=== PATIENT | female | born 1990 | race Caucasian/White ===

== ENCOUNTER 2022-12-31 23:21 | Emergency (ER) | payer SELFPAY ==
[2022-12-31 23:22] VITALS: BP 159/78; PULSE 79; RESP 16; TEMP 37.1; O2SAT 96; BMI 27.4
--- NOTE | 2022-12-31 23:25 | ED.SEIZURE1 ---
HPI - Seizure General Chief Complaint: Seizure Stated Complaint: SEIZURE History of Present Illness HPI Narrative: history of pseudoseizures. Describes complete workup in the past including neg. MRI and normal EEG. States she had one last week and was able to work her way out of it She is no longer followed by Neurology. States she was informed they are triggered by stress. Had a seizure tonight at work. Past admission to in patient psychiatric treatment. Brought to the ER from work after seizure tonight. Now arrives and feels she is doing ok. Was nauseated but this resolved after Squad gave her Zofran. denies headache Related Data Allergies Allergy/AdvReac Type Severity Reaction Status Date / Time prochlorperazine Allergy Verified 12/31/22 23:26 [From Compazine] Review of Systems ROS Status of ROS 10 or more systems reviewed and unremarkable except as noted in history and below PFSH [facility] Social History Smoking status: Current every day smoker Exam Constitutional Vital Signs, click to edit/add: Last Vital Signs Temp 98.8 F 12/31/22 23:22 Pulse 79 12/31/22 23:22 Resp 16 12/31/22 23:48 BP 159/78 H 12/31/22 23:22 Pulse Ox 98 12/31/22 23:48 O2 Del Method Room Air 12/31/22 23:48 Common normals: no apparent distress, average body habitus, oriented x3, no limitations, healthy appearing and alert Eye Common normals: PERRL, EOMs intact bilaterally and conjunctivae normal Respiratory Common normals: normal respiratory effort, no retractions, no use of accessory muscles and clear to auscultation bilaterally Cardio Common normals: regular rate, regular rhythm, S1 normal heart sound and S2 normal heart sound GI Common normals: Normal to inspection, nondistended, normoactive bowel sounds present, soft to palpation and non-tender Extremity Common normals: normal to inspection and full ROM Neuro Common normals: oriented x3, CN's II-XII intact bilaterally, moves all extremities, no focal motor deficits and no sensory deficits noted Psych Appearance: grossly normal Course Vital Signs Vital signs: Vital Signs Temperature 98.8 F 12/31/22 23:22 Pulse Rate 79 12/31/22 23:22 Respiratory Rate 16 12/31/22 23:22 Blood Pressure 159/78 H 12/31/22 23:22 Pulse Oximetry 96 12/31/22 23:22 Oxygen Delivery Method Room Air 12/31/22 23:22 Temperature 98.8 F 12/31/22 23:22 Pulse Rate 79 12/31/22 23:22 Respiratory Rate 16 12/31/22 23:48 Blood Pressure 159/78 H 12/31/22 23:22 Pulse Oximetry 98 12/31/22 23:48 Oxygen Delivery Method Room Air 12/31/22 23:48 MDM - Seizure MDM Narrative Medical decision making narrative: history of pseudoseizure. another seizure tonight while at work. Arrives asymptomatic. UA with trace leukocytes and urine cx ordered. Labs WNL with mild decreased in bicarb related to the seizure. Patient discharged home asymptomatic and advised to follow up with her doctor Lab Data Labs: Lab Results 12/31/22 12/31/22 Range/Units 23:32 23:50 WBC 8.0 (4.0-11.0) 10^3/uL RBC 4.44 (4.20-5.40) 10^6/uL Hgb 14.0 (12.0-16.0) g/dL Hct 40.8 (36.0-48.0) % MCV 91.9 (81.0-99.0) fL MCH 31.5 (26.7-34.0) pg MCHC 34.3 (29.9-35.2) g/dL RDW 11.9 (11.0-15.0) % Plt Count 223 (150-450) 10^3/uL MPV 10.9 (9.5-13.5) fL Neut % (Auto) 72.2 (43.0-75.0) % Lymph % (Auto) 19.8 L (20.5-60.0) % [place] % (Auto) 5.5 (1.7-12.0) % Eos % (Auto) 1.7 (0.9-7.0) % Baso % (Auto) 0.6 (0.2-2.0) % Neut # (Auto) 5.8 (1.4-6.5) 10^3/uL Lymph # (Auto) 1.6 (1.2-3.8) 10^3/uL [place] # (Auto) 0.4 (0.3-0.8) 10^3/uL Eos # (Auto) 0.1 (0.0-0.7) 10^3/uL Baso # (Auto) 0.1 (0.0-0.1) 10^3/uL Abs Immat Gran (auto) 0.02 (0.00-0.03) 10^3/uL Imm/Tot Granulo (auto) 0.2 (0.0-0.5) % Sodium 139 (136-145) mmol/L Potassium 3.8 (3.5-5.1) mmol/L Chloride 107 (98-107) mmol/L Carbon Dioxide 20.8 L (21.0-32.0) mmol/L Anion Gap 15.0 BUN 10.0 (7.0-18.0) mg/dL Creatinine 0.91 (0.55-1.02) mg/dL Est GFR ( Amer) >60 (>=60) Est GFR (Non-Af Amer) >60 (>=60) BUN/Creatinine Ratio 11.0 Glucose 97 (74-106) mg/dL Calcium 8.6 (8.5-10.1) mg/dL Total Bilirubin 0.3 (0.2-1.0) mg/dL AST 14 L (15-37) U/L ALT 20 (14-59) U/L Alkaline Phosphatase 60 (46-116) U/L Total Protein 7.2 (6.4-8.2) g/dL Albumin 3.9 (3.4-5.0) g/dL Globulin 3.3 g/dL Albumin/Globulin Ratio 1.2 Urine Color Lt. yellow (YELLOW) Urine Clarity Clear (CLEAR) Urine pH 6.0 (5.0-9.0) Ur Specific [place] 1.015 (1.005-1.025) Urine Protein Negative (NEG/TRACE) mg/dL Urine Glucose (UA) Negative (NEGATIVE) mg/dL Urine Ketones Negative (NEGATIVE) mg/dL Urine Occult Blood Negative (NEGATIVE) Urine Nitrite Negative (NEGATIVE) Urine Bilirubin Negative (NEGATIVE) Urine Urobilinogen 0.2 (0.2-1.0) EU/dL Ur Leukocyte Esterase Trace A (NEGATIVE) Urine RBC 0-2 (0-2) #/HPF Urine WBC 2-5 A (NONE SEEN) #/HPF Ur Squamous Epith Cells Moderate A (NONE/RARE) #/LPF Urine Crystals None seen (None Seen) #/HPF Urine Bacteria Small A (NONE SEEN) #/HPF Urine Casts None seen (NONE SEEN) #/LPF Urine Mucus None seen (NONE SEEN) Ur Culture Indicated? Yes Discharge Plan Discharge Chief Complaint: Seizure Clinical Impression: Psychogenic nonepileptic seizure Patient Disposition: Home, Self-Care Instructions: Recurrent Seizures in Adults (ED) Additional Instructions: follow up with your family doctor Stand Alone Forms: Portal Instructions Referrals: Physician,Non-Staff, MD [Primary Care Provider] - 1 week
[2022-12-31 23:32] VITALS: PULSE 62
--- NOTE | 2022-12-31 23:35 | ECG_ITS ---
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
[2022-12-31 23:39] LABS: Basophils Absolute Auto 0.1 10^3/uL (0.0-0.1); Basophils Percent Auto 0.6 % (0.2-2.0); Eosinophils Absolute Auto 0.1 10^3/uL (0.0-0.7); Eosinophils Percent Auto 1.7 % (0.9-7.0); Hematocrit 40.8 % (36.0-48.0); Immature Granulocytes Abs Auto 0.02 10^3/uL (0.00-0.03); Immature Granulocytes Pct Auto 0.2 % (0.0-0.5); Lymphocytes Absolute Auto 1.6 10^3/uL (1.2-3.8); Lymphocytes Percent Auto 19.8 % (20.5-60.0); Mean Corpuscular HGB Conc 34.3 g/dL (29.9-35.2); Mean Corpuscular Hemoglobin 31.5 pg (26.7-34.0); Mean Corpuscular Volume 91.9 fL (81.0-99.0); Mean Platelet Volume 10.9 fL (9.5-13.5); Monocytes Absolute Auto 0.4 10^3/uL (0.3-0.8); Monocytes Percent Auto 5.5 % (1.7-12.0); Neutrophils Absolute Auto 5.8 10^3/uL (1.4-6.5); Neutrophils Percent Auto 72.2 % (43.0-75.0); Platelet Count 223 10^3/uL (150-450); Red Blood Count 4.44 10^6/uL (4.20-5.40); Red Cell Distribution Width 11.9 % (11.0-15.0)
[2022-12-31 23:48] VITALS: RESP 16; O2SAT 98
[2022-12-31 23:58] LABS: Bilirubin Urine NEGATIVE (NEGATIVE); Blood Urine NEGATIVE (NEGATIVE); Clarity Urine CLEAR (CLEAR); Color Urine LT. YELLOW (YELLOW); Glucose Urine UA NEGATIVE (NEGATIVE); Ketones Urine NEGATIVE (NEGATIVE); Leukocyte Esterase Urine TRACE (NEGATIVE); Nitrite Urine NEGATIVE (NEGATIVE); Protein Urine NEGATIVE (NEG/TRACE); Specific Gravity Urine 1.015 (1.005-1.025); Urobilinogen Urine 0.2 EU/dL (0.2-1.0)
[2022-12-31 23:59] LABS: Urine Microscopic Indicated YES
[2023-01-01 00:07] LABS: Alanine Aminotransferase 20 U/L (14-59); Albumin Globulin Ratio 1.2; Albumin Level 3.9 g/dL (3.4-5.0); Alkaline Phosphatase 60 U/L (46-116); Aspartate Amino Transferase 14 U/L (15-37); Bilirubin Total 0.3 mg/dL (0.2-1.0); Calcium 8.6 mg/dL (8.5-10.1); Carbon Dioxide 20.8 mmol/L (21.0-32.0); Chloride 107 mmol/L (98-107); Estimated GFR (African America >60 (>=60); Estimated GFR (Non-African Ame >60 (>=60); Globulin 3.3 g/dL; Glucose 97 mg/dL (74-106); Potassium 3.8 mmol/L (3.5-5.1); Sodium 139 mmol/L (136-145); Total Protein 7.2 g/dL (6.4-8.2)
[2023-01-01 00:21] LABS: Bacteria Urine SMALL #/HPF (NONE SEEN); Cast Seen? NONE SEEN #/LPF (NONE SEEN); Crystals Seen? None Seen #/HPF (None Seen); Mucus Urine NONE SEEN (NONE SEEN); RBC Urine 0-2 #/HPF (0-2); Squamous Epithelial Cell Urine MODERATE #/LPF (NONE/RARE); Urine Culture Indicated YES
[2023-01-01 01:05] VITALS: BP 119/63; PULSE 67; RESP 16; O2SAT 96
== END 2023-01-01 01:25 | disposition home or self-care (01) ==
PROVIDERS: Emergency Provider Internal Medicine
DX: R56.9 Unspecified convulsions (principal); F17.210 Nicotine dependence, cigarettes, uncomplicated
CPT/HCPCS: 36415; 80053; 81001; 85025; 87086; 93005; 99284

== ENCOUNTER 2023-01-11 22:16 | Emergency (ER) | payer SELFPAY ==
[2023-01-11] VITALS (9 sets, daily range): BP systolic 104–140; BP diastolic 62–88; PULSE 53–70; RESP 14–20; TEMP 36.8; O2SAT 96–98; BMI 27.5
--- NOTE | 2023-01-11 22:17 | ED.GENADUL1 ---
HPI - General Adult General Chief complaint: Seizure Stated complaint: seizure Time Seen by Provider: 01/11/23 22:17 History of Present Illness HPI narrative: Patient presents to emergency department via EMS with a complaint of a seizure. Patient was at work and coworkers found the patient in the break room staring off. She has a history of psychogenic pseudoseizures. He states are normally brought on by stress. She states her coworkers called EMS. When EMS arrived they stated that the patient was staring off and after 2 minutes became more responsive. Patient vomited one time. She was given 4 mg of Zofran in the ambulance. She denies any headache. She does not take any antiepileptic drugs. She's had a full workup done including EEGs and it was determined that she did not have epilepsy. She does not have any complaints. Related Data Previous Rx's Medication Instructions Recorded hydroxyzine HCl 25 mg tablet 25 mg PO Q8H PRN anxiety #20 tabs 01/11/23 Allergies Allergy/AdvReac Type Severity Reaction Status Date / Time prochlorperazine Allergy Verified 12/31/22 23:26 [From Compazine] Review of Systems ROS Status of ROS 10 or more systems reviewed and unremarkable except as noted in history and below PFSH PFSH Social History Smoking status: Current every day smoker Exam Narrative Exam Narrative: Nurses notes and vital signs reviewed and patient is not hypoxic. General: Nontoxic, Well-appearing and in no apparent distress. Skin: Warm, dry, no pallor noted. No Rash Head: Normocephalic, atraumatic. Neck: Supple, non-tender. Eye: Pupils are equal, round and EOMI. No scleral icterus. Ears, Nose, Mouth, and Throat: TM clear, no posterior oropharynx erythema or nasal mucosal hypertrophy, uvula is mid-line Oral mucosa is moist Cardiovascular: Regular Rate and Rhythm without murmur, gallop or rub. Respiratory: No accessory muscle use or respiratory distress. Lungs are clear to auscultation, no wheezing, rales or rhonchi Chest Wall: no tenderness Back: No midline thoracic or lumbar vertebral tenderness. No CVA tenderness Musculoskeletal: normal ROM, no calf or popliteal tenderness, no lower extremity edema/swelling GI: Abdomen is soft, non-distended. Normal bowel sounds. No masses appreciated. No tenderness to palpation. No rebound, guarding, or rigidity noted. Neurological: A&O x4. No cranial nerve dysfunction observed. No truncal ataxia. Moves all extremities. Sensation intact. Psychiatric: Cooperative and interactive. flat affect Constitutional Vital Signs, click to edit/add: Last Vital Signs Temp 98.3 F 01/11/23 22:19 Pulse 56 L 01/11/23 23:20 Resp 19 01/11/23 23:20 BP 104/62 01/11/23 23:31 Pulse Ox 97 01/11/23 23:20 O2 Del Method Room Air 01/11/23 22:19 Course Vital Signs Vital signs: Vital Signs Temperature 98.3 F 01/11/23 22:19 Pulse Rate 68 01/11/23 22:19 Respiratory Rate 18 01/11/23 22:19 Blood Pressure 140/88 01/11/23 22:19 Pulse Oximetry 98 01/11/23 22:19 Oxygen Delivery Method Room Air 01/11/23 22:19 Temperature 98.3 F 01/11/23 22:19 Pulse Rate 56 L 01/11/23 23:20 Respiratory Rate 19 01/11/23 23:20 Blood Pressure 104/62 01/11/23 23:31 Pulse Oximetry 97 01/11/23 23:20 Oxygen Delivery Method Room Air 01/11/23 22:19 Medical Decision Making MDM Narrative Medical decision making narrative: Patient was given IV fluids. She remained hemodynamically stable. All results discussed with patient.She is advised to stop smoking marijuana.She was given hydroxyzine. At this time the patient is without objective evidence of an acute process requiring hospitalization or inpatient management. The patient has remained hemodynamically stable. No additional indication for emergent studies at this time. I answered all questions. Discussed discharge instructions including standard anticipatory guidance and what should prompt a return to the emergency department, including if they get worse are not getting better or develops any new or concerning symptoms. I've given them specific time frame in which to follow-up, and who to follow-up with. The patient demonstrates understanding. Patient is nontoxic and stable for discharge with outpatient follow-up. This note was created with the assistance of a speech recognition program. Although the intention is to generate documents that actually reflects the content of the visit, no guarantees can be provided that every mistake has been identified and corrected by editing. Medical Records Medical records reviewed: Yes I reviewed the patient's medical records Lab Data Lab results reviewed: Yes I reviewed the patient's lab results Labs: Lab Results 01/11/23 01/11/23 01/11/23 Range/Units 22:22 22:30 22:50 WBC 9.2 (4.0-11.0) 10^3/uL RBC 4.80 (4.20-5.40) 10^6/uL Hgb 15.2 (12.0-16.0) g/dL Hct 44.1 (36.0-48.0) % MCV 91.9 (81.0-99.0) fL MCH 31.7 (26.7-34.0) pg MCHC 34.5 (29.9-35.2) g/dL RDW 11.9 (11.0-15.0) % Plt Count 305 (150-450) 10^3/uL MPV 10.7 (9.5-13.5) fL Neut % (Auto) 81.1 H (43.0-75.0) % Lymph % (Auto) 14.3 L (20.5-60.0) % [place] % (Auto) 3.1 (1.7-12.0) % Eos % (Auto) 0.8 L (0.9-7.0) % Baso % (Auto) 0.5 (0.2-2.0) % Neut # (Auto) 7.5 H (1.4-6.5) 10^3/uL Lymph # (Auto) 1.3 (1.2-3.8) 10^3/uL [place] # (Auto) 0.3 (0.3-0.8) 10^3/uL Eos # (Auto) 0.1 (0.0-0.7) 10^3/uL Baso # (Auto) 0.1 (0.0-0.1) 10^3/uL Abs Immat Gran (auto) 0.02 (0.00-0.03) 10^3/uL Imm/Tot Granulo (auto) 0.2 (0.0-0.5) % Sodium 141 (136-145) mmol/L Potassium 3.5 (3.5-5.1) mmol/L Chloride 107 (98-107) mmol/L Carbon Dioxide 25.1 (21.0-32.0) mmol/L Anion Gap 12.4 BUN 8.0 (7.0-18.0) mg/dL Creatinine 1.11 H (0.55-1.02) mg/dL Est GFR ( Amer) >60 (>=60) Est GFR (Non-Af Amer) 58 L (>=60) BUN/Creatinine Ratio 7.2 Glucose 92 (74-106) mg/dL Calcium 9.1 (8.5-10.1) mg/dL Total Bilirubin 0.4 (0.2-1.0) mg/dL AST 9 L (15-37) U/L ALT 23 (14-59) U/L Alkaline Phosphatase 59 (46-116) U/L Total Protein 7.6 (6.4-8.2) g/dL Albumin 4.1 (3.4-5.0) g/dL Globulin 3.5 g/dL Albumin/Globulin Ratio 1.2 Urine Color Lt. yellow (YELLOW) Urine Clarity Clear (CLEAR) Urine pH 5.5 (5.0-9.0) Ur Specific [place] 1.020 (1.005-1.025) Urine Protein Negative (NEG/TRACE) mg/dL Urine Glucose (UA) Negative (NEGATIVE) mg/dL Urine Ketones Negative (NEGATIVE) mg/dL Urine Occult Blood Negative (NEGATIVE) Urine Nitrite Negative (NEGATIVE) Urine Bilirubin Negative (NEGATIVE) Urine Urobilinogen 0.2 (0.2-1.0) EU/dL Ur Leukocyte Esterase Negative (NEGATIVE) Urine HCG, Qual Negative (NEGATIVE) Urine Opiates Screen Negative (NEGATIVE) Ur Buprenorphine Scrn Negative (NEGATIVE) Ur Oxycodone Screen Negative (NEGATIVE) Urine Methadone Screen Negative (NEGATIVE) Ur Propoxyphene Screen Negative (NEGATIVE) Ur Barbiturates Screen Negative (NEGATIVE) U Tricyclic Antidepress Negative (NEGATIVE) Ur Phencyclidine Scrn Negative (NEGATIVE) Ur Amphetamines Screen Negative (NEGATIVE) U Methamphetamines Scrn Negative (NEGATIVE) U Benzodiazepines Scrn Negative (NEGATIVE) Urine Cocaine Screen Negative (NEGATIVE) U Cannabinoids Screen Positive A (NEGATIVE) Discharge Plan Discharge Chief Complaint: Seizure Clinical Impression: Anxiety, Psychogenic nonepileptic seizure Patient Disposition: Home, Self-Care Time of Disposition Decision: 23:25 Condition: Good Mode of Transportation: Private Vehicle Prescriptions / Home Meds: New hydroxyzine HCl 25 mg tablet 25 mg PO Q8H PRN (Reason: anxiety) Qty: 20 0RF Stand Alone Forms: Portal Instructions Referrals: RAÚL TIRADO APRN [Physician] - 1 week Discharge Date/Time: 01/11/23 23:33
--- NOTE | 2023-01-11 22:22 | ECG_ITS ---
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
--- NOTE | 2023-01-11 22:29 | PC.NURSE ---
pt brought in by ems, pt was working at [employer] today and had 4 pseudo seizures. pt states that she usually has seizures that present as absent seizures and she usually just feels dizzy beforehand. pt states that she doesn't feel well and doesn't normally have this many seizures in one day. pt states she did see a neurologist once and had an EEG done but doesn't remember who.
[2023-01-11 22:30] LABS: Basophils Absolute Auto 0.1 10^3/uL (0.0-0.1); Basophils Percent Auto 0.5 % (0.2-2.0); Eosinophils Absolute Auto 0.1 10^3/uL (0.0-0.7); Eosinophils Percent Auto 0.8 % (0.9-7.0); Hematocrit 44.1 % (36.0-48.0); Hemoglobin 15.2 g/dL (12.0-16.0); Immature Granulocytes Abs Auto 0.02 10^3/uL (0.00-0.03); Immature Granulocytes Pct Auto 0.2 % (0.0-0.5); Lymphocytes Absolute Auto 1.3 10^3/uL (1.2-3.8); Lymphocytes Percent Auto 14.3 % (20.5-60.0); Mean Corpuscular HGB Conc 34.5 g/dL (29.9-35.2); Mean Corpuscular Hemoglobin 31.7 pg (26.7-34.0); Mean Corpuscular Volume 91.9 fL (81.0-99.0); Mean Platelet Volume 10.7 fL (9.5-13.5); Monocytes Absolute Auto 0.3 10^3/uL (0.3-0.8); Monocytes Percent Auto 3.1 % (1.7-12.0); Neutrophils Absolute Auto 7.5 10^3/uL (1.4-6.5); Neutrophils Percent Auto 81.1 % (43.0-75.0); Platelet Count 305 10^3/uL (150-450); Red Cell Distribution Width 11.9 % (11.0-15.0); White Blood Count 9.2 10^3/uL (4.0-11.0)
[2023-01-11 22:46] LABS: Alanine Aminotransferase 23 U/L (14-59); Albumin Globulin Ratio 1.2; Albumin Level 4.1 g/dL (3.4-5.0); Alkaline Phosphatase 59 U/L (46-116); Anion Gap 12.4; Aspartate Amino Transferase 9 U/L (15-37); BUN Creatinine Ratio 7.2; Bilirubin Total 0.4 mg/dL (0.2-1.0); Calcium 9.1 mg/dL (8.5-10.1); Carbon Dioxide 25.1 mmol/L (21.0-32.0); Chloride 107 mmol/L (98-107); Estimated GFR (African America >60 (>=60); Estimated GFR (Non-African Ame 58 (>=60); Globulin 3.5 g/dL; Glucose 92 mg/dL (74-106); Potassium 3.5 mmol/L (3.5-5.1); Sodium 141 mmol/L (136-145); Total Protein 7.6 g/dL (6.4-8.2)
[2023-01-11 22:55] LABS: Amphetamine Screen Urine NEGATIVE (NEGATIVE); Barbiturates Screen Urine NEGATIVE (NEGATIVE); Benzodiazepines Screen Urine NEGATIVE (NEGATIVE); Buprenorphine Screen Urine NEGATIVE (NEGATIVE); Cannabinoid Screen Urine POSITIVE (NEGATIVE); Cocaine Screen Urine NEGATIVE (NEGATIVE); Methadone Screen Urine NEGATIVE (NEGATIVE); Methamphetamines Screen Urine NEGATIVE (NEGATIVE); Opiate Screen Urine NEGATIVE (NEGATIVE); Oxycodone Screen Urine NEGATIVE (NEGATIVE); Phencyclidine Screen Urine NEGATIVE (NEGATIVE); Tricyclic Antidepressant Urine NEGATIVE (NEGATIVE)
[2023-01-11] MEDS: HYDROXYZINE HCL 25 MG TABLET PO (22:59)
[2023-01-11 23:06] LABS: Bilirubin Urine NEGATIVE (NEGATIVE); Blood Urine NEGATIVE (NEGATIVE); Clarity Urine CLEAR (CLEAR); Color Urine LT. YELLOW (YELLOW); Glucose Urine UA NEGATIVE (NEGATIVE); Ketones Urine NEGATIVE (NEGATIVE); Leukocyte Esterase Urine NEGATIVE (NEGATIVE); Nitrite Urine NEGATIVE (NEGATIVE); Protein Urine NEGATIVE (NEG/TRACE); Urobilinogen Urine 0.2 EU/dL (0.2-1.0); pH Urine 5.5 (5.0-9.0)
[2023-01-11 23:13] LABS: Urine Microscopic Indicated NO
[2023-01-11 23:21] LABS: HCG Qualitative Urine* NEGATIVE (NEGATIVE)
== END 2023-01-11 23:33 | disposition home or self-care (01) ==
PROVIDERS: Emergency Provider Emergency Medicine
DX: R56.9 Unspecified convulsions (principal); F41.9 Anxiety disorder, unspecified; F12.90 Cannabis use, unspecified, uncomplicated; F17.210 Nicotine dependence, cigarettes, uncomplicated
CPT/HCPCS: 36415; 80053; 80307; 81003; 84702; 84703; 85025; 93005; 99284

== ENCOUNTER 2023-05-23 06:32 | Emergency (ER) | payer MEDICAID, SELFPAY ==
[2023-05-23 06:38] VITALS: BP 109/94; PULSE 83; RESP 16; TEMP 37.1; O2SAT 99; BMI 23.8
--- NOTE | 2023-05-23 06:48 | ECG_ITS ---
The [facility] Test Date: 2023-05-23 Pat Name: ROSHAN GARCIA Department: Room: - Gender: Female Transportation Lead: : 1990 Requested By: Order Number: [id number] Reading MD: CAMILLE VENEGAS Measurements Intervals [place] Rate: 84 P: 74 MS: 136 QRS: 76 QRSD: 82 T: 69 QT: 360 QTc: 401 Interpretive Statements 1100 Sinus rhythm 9110 normal ECG Compared to ECG 01/11/2023 22:22:41 No significant changes Electronically Signed On 05-24-2023 12:07:21 EST by CAMILLE VENEGAS
[2023-05-23 07:09] LABS: Basophils Absolute Auto 0.1 10^3/uL (0.0-0.1); Basophils Percent Auto 1.2 % (0.2-2.0); Eosinophils Absolute Auto 0.1 10^3/uL (0.0-0.7); Eosinophils Percent Auto 1.5 % (0.9-7.0); Hematocrit 46.8 % (36.0-48.0); Hemoglobin 16.1 g/dL (12.0-16.0); Immature Granulocytes Abs Auto 0.03 10^3/uL (0.00-0.03); Immature Granulocytes Pct Auto 0.3 % (0.0-0.5); Lymphocytes Percent Auto 23.3 % (20.5-60.0); Mean Corpuscular HGB Conc 34.4 g/dL (29.9-35.2); Mean Corpuscular Hemoglobin 31.9 pg (26.7-34.0); Mean Corpuscular Volume 92.9 fL (81.0-99.0); Mean Platelet Volume 11.4 fL (9.5-13.5); Monocytes Absolute Auto 0.5 10^3/uL (0.3-0.8); Monocytes Percent Auto 5.5 % (1.7-12.0); Neutrophils Absolute Auto 5.9 10^3/uL (1.4-6.5); Neutrophils Percent Auto 68.2 % (43.0-75.0); Platelet Count 309 10^3/uL (150-450); Red Blood Count 5.04 10^6/uL (4.20-5.40); Red Cell Distribution Width 12.3 % (11.0-15.0); White Blood Count 8.6 10^3/uL (4.0-11.0)
[2023-05-23] MEDS: 0.9 % SODIUM CHLORIDE 1,000 ML 1000 ML IV (07:19)
[2023-05-23] MEDS: ONDANSETRON PF 4 MG/2 ML VIAL IV (07:28)
[2023-05-23 07:46] LABS: Bilirubin Urine NEGATIVE (NEGATIVE); Blood Urine NEGATIVE (NEGATIVE); Clarity Urine SL CLOUDY (CLEAR); Color Urine LT. YELLOW (YELLOW); Glucose Urine UA NEGATIVE (NEGATIVE); Ketones Urine 15 mg/dL (NEGATIVE); Leukocyte Esterase Urine NEGATIVE (NEGATIVE); Nitrite Urine NEGATIVE (NEGATIVE); Protein Urine NEGATIVE (NEG/TRACE); Urobilinogen Urine 0.2 EU/dL (0.2-1.0)
[2023-05-23 07:52] LABS: Bacteria Urine TRACE #/HPF (NONE SEEN); Mucus Urine NONE SEEN (NONE SEEN); RBC Urine NONE SEEN #/HPF (0-2); Squamous Epithelial Cell Urine FEW #/LPF (NONE/RARE); WBC Urine NONE SEEN #/HPF (NONE SEEN)
[2023-05-23 07:53] LABS: Amorphous Sediment Urine FEW; Cast Seen? NONE SEEN #/LPF (NONE SEEN); Crystals Seen? Seen #/HPF (None Seen)
[2023-05-23 07:54] LABS: HCG Qualitative Urine* NEGATIVE (NEGATIVE)
[2023-05-23 07:54] LABS: Lactate/Lactic Acid 2.1 mmol/L (0.4-2.0)
[2023-05-23 08:00] LABS: Amphetamine Screen Urine NEGATIVE (NEGATIVE); Barbiturates Screen Urine NEGATIVE (NEGATIVE); Benzodiazepines Screen Urine NEGATIVE (NEGATIVE); Buprenorphine Screen Urine NEGATIVE (NEGATIVE); Cannabinoid Screen Urine POSITIVE (NEGATIVE); Cocaine Screen Urine NEGATIVE (NEGATIVE); Methadone Screen Urine NEGATIVE (NEGATIVE); Methamphetamines Screen Urine NEGATIVE (NEGATIVE); Opiate Screen Urine NEGATIVE (NEGATIVE); Oxycodone Screen Urine NEGATIVE (NEGATIVE); Phencyclidine Screen Urine NEGATIVE (NEGATIVE); Tricyclic Antidepressant Urine NEGATIVE (NEGATIVE)
[2023-05-23 08:00] LABS: Alanine Aminotransferase 17 U/L (14-59); Albumin Globulin Ratio 1.3; Albumin Level 4.3 g/dL (3.4-5.0); Alkaline Phosphatase 48 U/L (46-116); Anion Gap 19.7; Aspartate Amino Transferase 11 U/L (15-37); BUN Creatinine Ratio 7.9; Bilirubin Total 0.7 mg/dL (0.2-1.0); Calcium 9.6 mg/dL (8.5-10.1); Carbon Dioxide 24.7 mmol/L (21.0-32.0); Chloride 104 mmol/L (98-107); Estimated GFR (African America >60 (>=60); Estimated GFR (Non-African Ame >60 (>=60); Globulin 3.4 g/dL; Glucose 120 mg/dL (74-106); Magnesium 1.7 mg/dL (1.8-2.4); Potassium 3.4 mmol/L (3.5-5.1); Sodium 145 mmol/L (136-145); Total Protein 7.7 g/dL (6.4-8.2)
--- NOTE | 2023-05-23 09:32 | ED.NAVMDI1 ---
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 As it turns out she is seeing a mental health professional counseling for her eating disorder, she also is under the care of a order manager and [place] and she goes the primary care clinic in [place]. She's been told in the past that may be related to marijuana use and also she's cutback she still uses at all regular basis. She's had no endoscopy per her history but she has had ultrasounds. She's not had blood in her vomitus she's not had blood in her stool. She is not running a fever. She has not been on any antibiotics. She's not had severe upper respiratory symptomatology or viral type symptomatology. She has no urinary complaints today. She feels like her potassium might be low today. Related Data Home Medications Medication Instructions Recorded Confirmed ondansetron HCl 4 mg tablet 4 mg PO TID-QID PRN nausea and 05/23/23 05/23/23 vomiting Previous Rx's Medication Instructions Recorded hydroxyzine HCl 25 mg tablet 25 mg PO Q8H PRN anxiety #20 tabs 01/11/23 Allergies Allergy/AdvReac Type Severity Reaction Status Date / Time Penicillins Allergy Verified 05/23/23 06:45 prochlorperazine Allergy Verified 05/23/23 06:45 [From Compazine] [facility] Social History Smoking status: Current every day smoker Exam Narrative Exam Narrative: awake alert no parent distress she did have some dry heaves. She is afebrile blood pressure is normal. Previous physician had ordered laboratory testing and IV hydration on her. She did request something for nausea and was given some Zofran. She is awake alert no distress. His mucous membranes are moist and pink there is no evidence of scleral icterus pallor or an obvious anemia. She has no cough congestion or respiratory distress. Neurological she has no lateralizing neurological symptoms or findings. She has some nausea but no severe abdominal pain. Vital signs are stable she has no tachycardia. Constitutional Vital Signs, click to edit/add: Last Vital Signs Temp 98.7 F 05/23/23 06:38 Pulse 83 01/12/24 06:38 Resp 16 05/23/23 06:38 BP 109/94 H 05/23/23 06:38 Pulse Ox 99 05/23/23 06:38 O2 Del Method Room Air 05/23/23 06:38 Course Vital Signs Vital signs: Vital Signs Temperature 98.7 F 05/23/23 06:38 Pulse Rate 83 05/23/23 06:38 Respiratory Rate 16 05/23/23 06:38 Blood Pressure 109/94 H 05/23/23 06:38 Pulse Oximetry 99 05/23/23 06:38 Oxygen Delivery Method Room Air 05/23/23 06:38 Temperature 98.7 F 05/23/23 06:38 Pulse Rate 83 05/23/23 06:38 Respiratory Rate 16 05/23/23 06:38 Blood Pressure 109/94 H 05/23/23 06:38 Pulse Oximetry 99 05/23/23 06:38 Oxygen Delivery Method Room Air 05/23/23 06:38 MDM - Nausea/Vomiting/Diarrhea MDM Narrative Medical decision making narrative: laboratory screening showed slightly low magnesium level. I will order additional studies including a lipase although is very unlikely to his pancreatitis. Her other laboratory testing was essentially normal. She responded to Zofran. As he says she is under the care of other physicians that can follow-up with her as needed. She does feel a bit better after the IV was given. Lab Data Labs: Lab Results 05/23/23 05/23/23 05/23/23 Range/Units 06:58 07:31 07:36 WBC 8.6 (4.0-11.0) 10^3/uL RBC 5.04 (4.20-5.40) 10^6/uL Hgb 16.1 H (12.0-16.0) g/dL Hct 46.8 (36.0-48.0) % MCV 92.9 (81.0-99.0) fL MCH 31.9 (26.7-34.0) pg MCHC 34.4 (29.9-35.2) g/dL RDW 12.3 (11.0-15.0) % Plt Count 309 (150-450) 10^3/uL MPV 11.4 (9.5-13.5) fL Neut % (Auto) 68.2 (43.0-75.0) % Lymph % (Auto) 23.3 (20.5-60.0) % [place] % (Auto) 5.5 (1.7-12.0) % Eos % (Auto) 1.5 (0.9-7.0) % Baso % (Auto) 1.2 (0.2-2.0) % Neut # (Auto) 5.9 (1.4-6.5) 10^3/uL Lymph # (Auto) 2.0 (1.2-3.8) 10^3/uL [place] # (Auto) 0.5 (0.3-0.8) 10^3/uL Eos # (Auto) 0.1 (0.0-0.7) 10^3/uL Baso # (Auto) 0.1 (0.0-0.1) 10^3/uL Abs Immat Gran (auto) 0.03 (0.00-0.03) 10^3/uL Imm/Tot Granulo (auto) 0.3 (0.0-0.5) % Sodium 145 (136-145) mmol/L Potassium 3.4 L (3.5-5.1) mmol/L Chloride 104 (98-107) mmol/L Carbon Dioxide 24.7 (21.0-32.0) mmol/L Anion Gap 19.7 BUN 8.0 (7.0-18.0) mg/dL Creatinine 1.01 (0.55-1.02) mg/dL Est GFR ( Amer) >60 (>=60) Est GFR (Non-Af Amer) >60 (>=60) BUN/Creatinine Ratio 7.9 Glucose 120 H (74-106) mg/dL Lactate 2.1 H (0.4-2.0) mmol/L Calcium 9.6 (8.5-10.1) mg/dL Magnesium 1.7 L (1.8-2.4) mg/dL Total Bilirubin 0.7 (0.2-1.0) mg/dL AST 11 L (15-37) U/L ALT 17 (14-59) U/L Alkaline Phosphatase 48 (46-116) U/L Total Protein 7.7 (6.4-8.2) g/dL Albumin 4.3 (3.4-5.0) g/dL Globulin 3.4 g/dL Albumin/Globulin Ratio 1.3 Lipase 16.0 (16.0-77.0) U/L Urine Color Lt. yellow (YELLOW) Urine Clarity Sl cloudy (CLEAR) Urine pH 8.0 (5.0-9.0) Ur Specific [place] 1.020 (1.005-1.025) Urine Protein Negative (NEG/TRACE) mg/dL Urine Glucose (UA) Negative (NEGATIVE) mg/dL Urine Ketones 15 A (NEGATIVE) mg/dL Urine Occult Blood Negative (NEGATIVE) Urine Nitrite Negative (NEGATIVE) Urine Bilirubin Negative (NEGATIVE) Urine Urobilinogen 0.2 (0.2-1.0) EU/dL Ur Leukocyte Esterase Negative (NEGATIVE) Urine RBC None seen (0-2) #/HPF Urine WBC None seen (NONE SEEN) #/HPF Ur Squamous Epith Cells Few A (NONE/RARE) #/LPF Urine Crystals Seen A (None Seen) #/HPF Amorphous Sediment Few Urine Bacteria Trace A (NONE SEEN) #/HPF Urine Casts None seen (NONE SEEN) #/LPF Urine Mucus None seen (NONE SEEN) Urine HCG, Qual Negative (NEGATIVE) Urine Opiates Screen Negative (NEGATIVE) Ur Buprenorphine Scrn Negative (NEGATIVE) Ur Oxycodone Screen Negative (NEGATIVE) Urine Methadone Screen Negative (NEGATIVE) Ur Barbiturates Screen Negative (NEGATIVE) U Tricyclic Antidepress Negative (NEGATIVE) Ur Phencyclidine Scrn Negative (NEGATIVE) Ur Amphetamines Screen Negative (NEGATIVE) U Methamphetamines Scrn Negative (NEGATIVE) U Benzodiazepines Scrn Negative (NEGATIVE) Urine Cocaine Screen Negative (NEGATIVE) U Cannabinoids Screen Positive A (NEGATIVE) Discharge Plan Discharge Chief Complaint: Nausea/Vomiting/Diarrhea Clinical Impression: Acute dehydration Patient Disposition: Home, Self-Care Time of Disposition Decision: 09:35 Prescriptions / Home Meds: No Action hydroxyzine HCl 25 mg tablet 25 mg PO Q8H PRN (Reason: anxiety) Qty: 20 0RF Hold Instructions: pt states not taking currently ondansetron HCl 4 mg tablet 4 mg PO TID-QID PRN (Reason: nausea and vomiting) Additional Instructions: follow-up with your physicians for further testing if her symptoms persist/avoid marijuana products/Zofran as needed Stand Alone Forms: Portal Instructions Referrals: Physician,Non-Staff, [Primary Care Provider] - 1 week
== END 2023-05-23 09:51 | disposition home or self-care (01) ==
PROVIDERS: Emergency Medicine; Emergency Provider Emergency Medicine Emergency Medical Services
DX: E86.0 Dehydration (principal); F12.90 Cannabis use, unspecified, uncomplicated; F17.210 Nicotine dependence, cigarettes, uncomplicated
CPT/HCPCS: 36415; 80053; 80307; 81001; 83605; 83690; 83735; 84703; 85025; 93005; 96361; 96374; 99284; J2405

== ENCOUNTER 2024-01-12 12:01 | Emergency (ER) | payer MEDICAID, SELFPAY ==
[2024-01-12 12:08] VITALS: BP 150/83; PULSE 89; TEMP 37.3; O2SAT 100; BMI 25.6
--- OUTSIDE RECORDS SUMMARY | 2024-01-12 12:09 | XMS_ITS | CCD ---
Author Organization [facility] Care Team Providers Care Lithographic Photographer Name Role Phone Family [facility], Services Primary Care Provider MD Yonathan Davis Attending Provider DO Kary Lux Emergency Provider DO Kary Ding Attending Provider DO Sivakumar Sheridan Referring Provider REE Morales Emergency Provider MD Brent Simmons Admit Provider MD Brent Simmons Attending Provider CONCHA Sena Other Provider Unavailable CONCHA Delgadillo Other Provider Unavailable CONCHA Rodriguez Other Provider Unavailable CONCHA Sen Other Provider Unavailable CONCHA Ramos Other Provider Unavailable CONCHA Alejandro Other Provider Unavailable MD Donald Jc Other Provider MD Antonio Santiago Other Provider LESLIE Craig Other Provider DO Feliciano Mejia Other Provider MD Joshua Galindo Other Provider DO Jovanny Hurley Other Provider MD Santiago Jameson Other Provider MD Maria Elena Francis Other Provider [phone] Robin ANP-BC Francheska Other Provider MD Durga Giron Other Provider MD Augie Marks Other Provider MD Lucie Paredes Other Provider MD Saniya Dobbs Other Provider MD Erin Mendiola Other Provider MD Kwan Avilez Other Provider MD Wenceslao Parada Other Provider ROBER Jones-Lissy Cruz Other Provider MD Romeo Steinberg Other Provider MD Arthur Yadav Other Provider MD Coretta Villegas Other Provider MD Ravindra Davila Other Provider DO Marium Duncan Other Provider Al MD Ángel Bills Other Provider DO Sourav Larson Other Provider LESLIE Arthur Other Provider DO Phani Rick Other Provider MD Billy Medina Other Provider [phone] CONCHA Hess Other Provider Unavailable LESLIE Grewal Attending Provider DO Anny Marin Referring Provider Free, Text Entry Unavailable Unavailable Johnny Long Unavailable Unavailable Pending, Provider Primary Care Unavailable Johnny Long Attending Unavailable [facility], Services Primary Care Provider [phone] LESLIE Grewal Attending Provider DO Anny Marin Referring Provider MD Bogdan Barnes Emergency Provider Kary Teran Unavailable Unavailable Pending, Provider Primary Care Unavailable Dr. KARY TERAN Attending Hayder Graham Primary Care Provider [facility], [facility] Primary Care Provider Ba [facility] Katerina Gary Emergency Provider NICK, DR SCHERER Primary Care Unavailable WEST, DR RODGER Phipps Consulting Unavailable SAMSA ., KYRIE Admitting Unavailable SAMSA ., KYRIE Attending Unavailable HAY ., DR MARTINEZ Consulting Unavailable LOMAS ., MR SCHAEFER Consulting Unavailable SAMSA ., KYRIE Consulting Unavailable MALISSA FRIAS Consulting Unavailable NICK, DR SCHERER Primary Care Unavailable VENESSA, ISABELLE Admitting Unavailable ISABELLE CLIFFORD Attending Unavailable VENESSA, ISABELLE Consulting Unavailable DELL ARVIZU Consulting Unavailable MD Bogdan Barnes Emergency Provider INEZ Armstrong Primary Care Provider MD Brent Simmons Admit Provider MD Brent Simmons Attending Provider MD Trace Burton Other Provider [phone] DO Rodger Anaya Other Provider MD López Aranda Other Provider MD Brenda Cervantes Other Provider MD Diane Armendariz Other Provider MD Cecilia Galo Other Provider LESLIE Roblero Other Provider [phone] MD Harvey Varghese Other Provider MD Andrea Lomas Other Provider Sivakumar Sheridan DO Unavailable [phone] INEZ Armstrong Primary Care Provider MD Erin Langston Jr Emergency Provider DO Estuardo Hardin Emergency Provider DO Ismael Calderon Emergency Provider NO FAMILY, PHYSICIAN Primary Care Provider Unava ilable INEZ Armstrong Primary Care Provider MD Erin Langston Jr Emergency Provider Lashawn, DO Estuardo Avila Emergency Provider DO Ismael Calderon Emergency Provider [facility], Services Primary Care Provider Malek, DO Anny Attending Provider Mariza, DO Schaefer A Referring Provider Malek, DO Anny Attending Provider Mast, DO Kary Referring Provider [phone] P[address], [address]RE[address] [employer] Rachel Jones Primary Care Provider MD Phillip Davis Attending Provider Branieck - S, DO Johnny Mcfarlane Referring Provider Mast - S, DO Kary Referring Provider MD Tamra Rosen Attending Provider Malek, DO Mccormick Other Provider Phillip Davis Attending Unavailab Phillip Rosas Admitting Unavailab Rachel Harrington Primary Care Unavailabl Estuardo Weir Admitting Unavailable Rachel Armstrong Primary [facility] Unavailabl Estuardo Weir Attending Unavailable [facility], Services Primary Care Unavaila ble Bullimore, Katerina E Attending Unavailable Bullimore, Katerina E Admitting Unavailable [facility], Services Primary Care Unavaila ble Malek, Anny Consulting Unavailable Tamra Rosen Attending Unavailable Georgiavertkalani Tamra Admitting Unavailable Troy, Brent Attending Unavailable Troy, Brent Admitting Unavailable Trace Burton Consulting Unavailabl e [facility] Unavailabl e Rodger Anaya Consulting Unavailable López Aranda Consulting Unavailable Ahmed, Gutierrez Consulting Unavailable Diane Armendariz Consulting Unavailable Cecilia Galo Consulting Unavailable Deric Roblero Consulting Unavailable Asaad, Imad Consulting Unavailable Andrea Lomas Consulting Unavailable [facility], Services Primary Care Unavaila ble Malek, Anny Attending Unavailable Malek, Anny Admitting Unavailable Mast - S, Kary Referring Unavailable [facility], Services Primary Care Unavaila toby Saavedrahebercki - S, Johnny Mcfarlane Referring Unava ilable Tomas, Anny Attending Unavailable Anny Marin Admitting Unavailable Erin Langston Jr Attending Unavailable Erin Langston Jr Admitting Unavailable Rachel Armstrong Primary Care Unavailabl e Lashawn, Estuardo M Admitting Unavailable [facility], Services Primary Care Unavaila Estuardo Valdovinos Attending Unavailable Rachel Armstrong Primary Care Unavailabl Ismael Miller Attending Unavailable Ismael Calderon Admitting Unavailable MeiHayder mora DO Primary Care Provider SJ JOSHUA Attending Unavailable HAYDER MEI Primary Care Unavailab le LEONJOVANNAREY Admitting Unavailable KATHI ZAMORA Attending Unavailable HAYDER MEI Primary Care Unavailab le MEIHAYDER MORA Primary Care Unavailab le Allergies Allergy Classification Reported Allergen(s) Allergy Type Date of Onset Reaction(s) Facility (16 sources) Penicillins; Translations: [Penicillins] Allergy to substance 12-07-19 Unknown [facility] (16 sources) Prochlorperazine; Translations: [prochlorperazine] Drug Allergy 12-07-19 Mental Status Change [facility] (2 sources) Prochlorperazine Drug Allergy Other [facility] Comment on above: Irritations (1 source) Prochlorperazine Drug Allergy [facility] Medications Current Medications Medication Drug Class(es) Dates Sig (Normalized) Sig (Original) [id number] 200 actuat albuterol 0.09 mg/actuat metered dose inhaler (20 sources) beta2-Adrenergic Agonist Start: 2021 End: 07-24-2022 Albuterol Sulfate Active 2 INH INHALATION EVERY 4-6 HOURS July 24, 2022 4:02pm administer with spacer Start: 06-08-2021 End: 12-06-2021 take 1 puff(s) by inhalation every six hours Albuterol Sulfate Discontinued 2 PUFF INHALATION Q6H September 10, 2021 11:00pm December 06, 2021 3:47pm Start: 03-17-2021 End: 05-02-2021 Albuterol Sulfate Discontinu ed 2 INH INHALATION Q6H 8 7 March 16, 2021 11:00pm May 02, 2021 10:13pm administer with spacer 120 actuat budesonide 0.16 mg/actuat / formoterol fumarate 0.0045 mg/actuat metered dose inhaler (8 sources) Corticosteroid, beta2-Adrenergic Agonist Start: 07-24-2022 Budesonide-Formoterol (Symbicort) 160-4.5 mcg/actuation HFA aerosol inhaler Active 1 INH INHALATION Twice daily 10.2 July 23, 2022 11:00pm 24 hr desvenlafaxine succinate 25 mg extended release oral tablet (6 sources) Serotonin and Norepinephrine Reuptake Inhibitor Start: 10-23-2022 take 25 mg by mouth once daily Desvenlafaxine Succinate Active 25 MG PO Daily 15 October 22, 2022 11:00pm dicyclomine hydrochloride 10 mg oral capsule (6 sources) Anticholinergic Start: 10-23-2022 take 10 mg by mouth three times daily Dicyclomine Active 10 MG PO Three times daily 45 October 22, 2022 11:00pm hydrOXYzine pamoate 50 mg oral capsule (20 sources) Antihistamine Start: 10-23-2022 take 50 mg by mouth every six hours Hydroxyzine Pamoate Active 50 MG PO Q6H 20 October 22, 2022 11:00pm Start: 02-06-2022 End: 07-24-2022 take 25 mg by mouth twice daily Hydroxyzine Hcl Discon tinued 25 MG PO Twice daily February 05, 2022 11:00pm July 24, 2022 4:01pm Start: 12-18-2021 End: 10-09-2022 take 25 mg by mouth twice daily Hydroxyzine Pamoate Di scontinued 25 MG PO Twice daily 22 11December 17, 2021 11:00pm October 09, 2022 9:19pm Start: 12-18-2021 take 25 mg by mouth twice vini y Hydroxyzine Pamoate Active 25 MG PO Twice daily 14 December 18, 2021 12:00am Start: 12-06-2021 End: 12-18-2021 take 25 mg by mouth once daily Hydroxyzine Pamoate Dis continued 25 MG PO Daily December 05, 2021 11:00pm December 18, 2021 11:53am Start: 09-11-2021 End: 09-11-2021 Hydroxyzine Pamoate Disconti nued MG September 10, 2021 11:00pm September 11, 2021 9:48pm Start: 04-13-2021 End: 08-31-2021 take 1 capsule by mouth every six hours Hydroxyzine Pamoate (Vistaril) 50 mg capsule Discontinued 50 MG PO Q6H 60 June 18, 2021 12:13pm August 31, 2021 1:51pm Start: 12-24-2020 End: 05-02-2021 take 25 mg by mouth every six hours Hydroxyzine Pamoate Discontinued 25 MG PO Q6H December 23, 2020 11:00pm May 02, 2021 10:13pm Start: 08-26-2020 End: 10-23-2020 take 1 capsule by mouth three to four times daily Hydroxyzine Pamoate (Vistaril) 25 mg capsule Discontinued 25 MG PO 3 to 4 times per day August 25, 2020 11:00pm October 23, 2020 11:15am lithium carbonate 300 mg extended release oral tablet (20 sources) Start: 10-23-2022 take 300 mg by mouth once daily [place] Carbonate Active 300 MG PO Daily October 22, 2022 11:00pm Start: 10-23-2022 take 450 mg by mouth once daily at bedtime [place] Carbonate Active 450 MG PO Daily at bedtime October 22, 2022 11:00pm Start: 12-18-2021 End: 10-09-2022 take 450 mg by mouth once daily [place] Carbonate Disc ontinued 450 MG PO Daily February 05, 2022 11:00pm October 09, 2022 9:19pm Start: 12-18-2021 take 450 mg by mouth once daily at bedtime [place] Carbonate Active 450 MG PO Daily at bedtime 11 15December 18, 2021 12:45pm Start: 09-17-2021 End: 12-18-2021 take 450 mg by mouth once daily at bedtime [place] Carbonate Discontinued 450 MG PO Daily at bedtime 11 15September 16, 2021 11:00pm December 18, 2021 11:46am melatonin 5 mg oral tablet (17 sources) Start: 10-23-2022 take 5 mg by mouth once daily at bedtime Melatonin Active 5 MG PO Daily at bedtime 15 October 22, 2022 11:00pm Start: 12-24-2020 End: 05-02-2021 take 5 mg by mouth once daily at bedtime Melatonin Discontinued 5 MG PO Daily at bedtime 15 December 23, 2020 11:00pm May 02, 2021 10:13pm metoclopramide 10 mg oral tablet (11 sources) Dopamine-2 Receptor Antagonist Start: 01-23-2023 take 1 tablet by mouth three times daily Metoclopramide Hcl (Reglan) 10 mg tablet Active 10 MG PO Three times daily January 22, 2023 11:00pm Start: 10-23-2022 take 10 mg by mouth every six hours Metoclopramide Hcl Active 10 MG PO Q6H 15 October 22, 2022 11:00pm nicotine 2 mg chewing gum (20 sources) Cholinergic Nicotinic Agonist Start: 10-23-2022 Nicotine (Polacrilex ) Active 2 MG BUCCAL Every 2 hours 60 October 22, 2022 11:00pm Start: 12-18-2021 End: 10-09-2022 Nicotine (Polacrilex) (Nicor ette) 4 mg gum Discontinued 4 MG BUCCAL Q6H 40 December 17, 2021 11:00pm October 09, 2022 9:19pm Start: 12-18-2021 Nicotine (Kaiden crilex) (Nicorette) 4 mg gum Active 4 MG BUCCAL Q6H 40 December 18, 2021 12:00am Start: 09-11-2021 End: 09-11-2021 Nicotine (Polacrilex) Discon tinued MG GUM, CHEWING September 10, 2021 11:00pm September 11, 2021 9:47pm Start: 09-04-2021 End: 09-11-2021 Nicotine (Polacrilex) Discon tinued 2 MG BUCCAL Every 2 hours 60 September 03, 2021 11:00pm September 11, 2021 12:14pm Start: 06-18-2021 End: 08-31-2021 Nicotine (Polacrilex) Discon tinued 2 MG BUCCAL Every 2 hours 60 June 18, 2021 12:00am Maria Del Rosario 22nd, 2022 1:49pm OLANZapine 5 mg oral tablet (20 sources) Atypical Antipsychotic Start: 10-23-2022 take 5 mg by mouth once daily in the evening Olanzapine Active 5 MG PO Every evening October 22, 2022 11:00pm Start: 12-18-2021 End: 10-09-2022 take 5 mg by mouth once daily Olanzapine Discontinued 5 MG PO Daily February 05, 2022 11:00pm October 09, 2022 9:19pm Start: 12-18-2021 take 5 mg by mouth o nce daily in the evening Olanzapine Active 5 MG PO Every evening December 18, 2021 12:00am Start: 05-28-2017 End: 07-02-2017 take 10 mg by mouth once daily at bedtime Olanzapine Discontinued 10 MG PO Daily at bedtime May 28, 2017 12:00am July 02, 2017 11:15am ondansetron 4 mg oral tablet (13 sources) Serotonin-3 Receptor Antagonist Start: 03-21-2023 Ondansetron Hcl Active 4 MG PO every 6 to 8 hours March 21, 2023 12:00am Start: 08-26-2020 End: 08-27-2020 take 1 tablet by mouth three times daily Ondansetron (Zofran Odt) 4 mg Tablet,Disintegrating Discontinued 4 MG PO Three times daily August 25, 2020 11:00pm August 27, 2020 11:38am pantoprazole 40 mg delayed release oral tablet (20 sources) Proton Pump Inhibitor Start: 10-23-2022 take 40 mg by mouth once daily Pantoprazole Active 40 MG PO Daily October 22, 2022 11:00pm Start: 05-14-2017 End: 07-02-2017 take 40 mg by mouth once daily Pantoprazole Discontinu ed 40 MG PO Daily May 28, 2017 4:09pm July 02, 2017 11:15am traZODone hydrochloride 100 mg oral tablet (20 sources) Serotonin Reuptake Inhibitor Start: 10-23-2022 take 100 mg by mouth once daily at bedtime Trazodone Active 100 MG PO Daily at bedtime October 22, 2022 11:00pm Start: 05-30-2021 End: 06-25-2021 take 50 mg by mouth at bedtime Trazodone Discontinued 50 MG PO Bedtime June 18, 2021 12:13pm June 25, 2021 9:50pm Start: 12-24-2020 End: 05-02-2021 take 50 mg by mouth once daily at bedtime Trazodone Discontinued 50 MG PO Daily at bedtime December 23, 2020 11:00pm May 02, 2021 10:13pm Completed/Discontinued Medications Medication Drug Class(es) Dates Sig (Normalized) Sig (Original) albuterol 0.833 mg/ml / ipratropium bromide 0.167 mg/ml inhalation solution (8 sources) Anticholinergic, beta2-Adrenergic Agonist Start: 07-24-2022 End: 10-09-2022 take 1 mL by inhalation every four to six hours Ipratropium-Albute rol Discontinued 3 ML INHALATION EVERY 4-6 HOURS July 23, 2022 11:00pm October 09, 2022 9:21pm ARIPiprazole 5 mg oral tablet (20 sources) Atypical Antipsychotic Start: 12-18-2021 End: 10-09-2022 take 1 tablet by mouth once daily Aripiprazole (Abilify) 5 mg tablet Discontinued 5 MG PO Daily February 05, 2022 11:00pm October 09, 2022 9:19pm Start: 12-18-2021 take 5 mg by mouth once daily Aripiprazole Active 5 MG PO Daily December 18, 2021 12:00am Start: 12-18-2021 End: 10-09-2022 Aripiprazole (Abilify Mainte na) 400 mg Suspension,Extended Rel Syring Discontinued 400 MG IM Q28D 0 December 17, 2021 11:00pm October 09, 2022 9:19pm Start: 12-18-2021 Aripiprazole ( Abilify Maintena) 400 mg Suspension,Extended Rel Syring Active 400 MG IM Q28D 0 December 18, 2021 12:00am Start: 11-19-2017 End: 08-01-2020 take 10 mg by mouth once daily at bedtime Aripiprazole Discontinued 10 MG PO Daily at bedtime November 18, 2017 11:00pm August 01, 2020 12:12pm Start: 10-22-2017 End: 11-19-2017 take 2 mg by mouth once daily Aripiprazole Discontinue d 2 MG PO Daily October 21, 2017 11:00pm November 19, 2017 8:14am azithromycin 250 mg oral tablet (11 sources) Macrolide Antimicrobial Start: 03-17-2021 End: 04-10-2021 take 2 tablets by mouth once daily, then take 1 tablet by mouth once daily Azithromycin (Zithromax) 250 mg tablet Discontinued 250 MG PO Daily March 16, 2021 11:00pm April 10, 2021 2:10am ZPAK-2 tabs day 1, the 1 tab daily for 4 days chlorproMAZINE hydrochloride 100 mg oral tablet (11 sources) Phenothiazine Start: 06-25-2017 End: 10-22-2017 take 200 mg by mouth once daily at bedtime Chlorpromazine Discontinued 200 MG PO Daily at bedtime June 25, 2017 12:00am October 22, 2017 5:52pm cholecalciferol 0.025 mg oral tablet (20 sources) Vitamin D Start: 12-18-2021 End: 10-09-2022 take 25 ug by mouth once daily Cholecalciferol (Vitamin D3) Discontinued 25 MCG PO Daily December 17, 2021 11:00pm October 09, 2022 9:19pm Start: 12-18-2021 take 25 ug by mouth once daily Cholecalciferol (Vitamin D3) Active 25 MCG PO Daily December 18, 2021 12:00am Start: 12-24-2020 End: 02-08-2021 take 75 ug by mouth once daily Cholecalciferol (Vitamin D3) Discontinued 75 MCG PO Daily 90 December 23, 2020 11:00pm February 08, 2021 2:49am docusate sodium 100 mg oral tablet (20 sources) Start: 05-14-2017 End: 07-02-2017 take 1 tablet by mouth once daily Docusate Sodium (Stool Softener) 100 mg Tablet Discontinued 100 MG PO Daily May 28, 2017 4:09pm July 02, 2017 11:15am DULoxetine 60 mg delayed release oral capsule (20 sources) Serotonin and Norepinephrine Reuptake Inhibitor Start: 05-30-2021 End: 06-18-2021 take 1 capsule by mouth once daily Duloxetine (Cymbalta) 60 mg capsule,delayed release(DR/EC) Discontinued 60 MG PO Daily June 07, 2021 10:46pm June 18, 2021 12:14pm fludrocortisone acetate 0.1 mg oral tablet (20 sources) Start: 05-14-2017 End: 07-02-2017 take 0.1 mg by mouth once daily Fludrocortisone Discontinued 0.1 MG PO Daily 30 May 28, 2017 4:09pm July 02, 2017 11:15am metoprolol tartrate 100 mg oral tablet (20 sources) beta-Adrenergic Jonna Start: 07-02-2017 End: 11-19-2017 take 100 mg by mouth twice daily Metoprolol Tartrate Discontinued 100 MG PO Twice daily 60 July 02, 2017 12:00am November 19, 2017 8:14am Start: 05-14-2017 End: 06-25-2017 take 100 mg by mouth twice daily Metoprolol Tartrate Discontinued 100 MG PO Twice daily 60 May 28, 2017 4:09pm June 25, 2017 8:00am mirtazapine 15 mg oral tablet (20 sources) Start: 12-06-2021 End: 12-18-2021 take 7.5 mg by mouth at bedtime Mirtazapine Discontinued 7.5 MG PO Bedtime December 06, 2021 7:39pm December 18, 2021 11:53am Start: 09-17-2021 End: 12-06-2021 take 15 mg by mouth at bedtime Mirtazapine Discontinue d 15 MG PO Bedtime September 16, 2021 11:00pm December 06, 2021 7:39pm Start: 09-04-2021 End: 09-17-2021 take 7.5 mg by mouth at bedtime Mirtazapine Discontinu ed 7.5 MG PO Bedtime September 10, 2021 11:00pm September 17, 2021 10:16am Start: 06-18-2021 End: 08-31-2021 take 15 mg by mouth once daily at bedtime Mirtazapine Discontinued 15 MG PO Daily at bedtime June 18, 2021 12:00am August 31, 2021 2:42am Start: 05-30-2021 End: 06-18-2021 take 7.5 mg by mouth once daily at bedtime Mirtazapine Discontinued 7.5 MG PO Daily at bedtime May 30, 2021 12:00am June 18, 2021 12:14pm Start: 04-10-2021 End: 04-13-2021 take 15 mg by mouth once daily at bedtime Mirtazapine Discontinued 15 MG PO Daily at bedtime April 10, 2021 2:14am April 13, 2021 10:52am Start: 12-24-2020 End: 04-10-2021 take 7.5 mg by mouth once daily at bedtime Mirtazapine Discontinued 7.5 MG PO Daily at bedtime December 23, 2020 11:00pm April 10, 2021 2:14am Start: 09-21-2020 End: 12-17-2020 take 1 tablet by mouth once daily at bedtime Mirtazapine (Remeron) 15 mg tablet Discontinued 15 MG PO Daily at bedtime October 23, 2020 11:00pm December 17, 2020 1:06pm Further refills per primary care Start: 11-19-2017 End: 08-01-2020 take 45 mg by mouth once daily at bedtime Mirtazapine Discontinued 45 MG PO Daily at bedtime November 18, 2017 11:00pm August 01, 2020 12:12pm Multivitamin With Folic Acid (Thera) 400 mcg Tablet (11 sources) Start: 11-19-2017 End: 08-01-2020 take 1 tablet by mouth once daily Multivitamin With Folic Acid (Thera) 400 mcg Tablet Discontinued 1 TAB PO Daily November 18, 2017 11:00pm August 01, 2020 12:12pm Start: 11-19-2017 End: 08-01-2020 take 1 tablet by mouth once daily Multivitamin With Folic Acid (Thera) 400 mcg Tablet Discontinued 1 TAB PO Daily November 19, 2017 12:00am August 01, 2020 1:12pm omeprazole 20 mg delayed release oral capsule (20 sources) Proton Pump Inhibitor Start: 12-06-2021 End: 10-09-2022 take 20 mg by mouth once daily Omeprazole Discontinued 20 MG PO Daily December 05, 2021 11:00pm October 09, 2022 9:19pm Start: 11-19-2017 End: 08-01-2020 take 20 mg by mouth once daily Omeprazole Discontinued 20 MG PO Daily November 18, 2017 11:00pm August 01, 2020 12:12pm PARoxetine hydrochloride 20 mg oral tablet (20 sources) Serotonin Reuptake Inhibitor Start: 12-18-2021 End: 10-09-2022 take 20 mg by mouth once daily Paroxetine Hcl Discontinued 20 MG PO Daily February 05, 2022 11:00pm October 09, 2022 9:19pm Start: 12-18-2021 take 20 mg by mouth once daily in the morning Paroxetine Hcl Active 20 MG PO Every morning December 18, 2021 12:00am prazosin 2 mg oral capsule (20 sources) alpha-Adrenergic Jonna Start: 06-18-2021 End: 08-31-2021 take 4 mg by mouth once daily at bedtime Prazosin Discontinued 4 MG PO Daily at bedtime 60 June 18, 2021 12:00am August 31, 2021 2:42am Start: 06-07-2021 End: 06-18-2021 take 1 capsule by mouth once daily at bedtime Prazosin (Minipress) 1 mg capsule Discontinued 3 MG PO Daily at bedtime June 07, 2021 10:47pm June 18, 2021 12:14pm Start: 05-30-2021 End: 06-07-2021 take 3 mg by mouth once daily at bedtime Prazosin Discontinued 3 MG PO Daily at bedtime 45 May 30, 2021 10:30am June 07, 2021 10:47pm Start: 12-24-2020 End: 05-30-2021 take 1 mg by mouth once daily at bedtime Prazosin Discontinued 1 MG PO Daily at bedtime 15 December 23, 2020 11:00pm May 30, 2021 10:18am predniSONE 50 mg oral tablet (20 sources) Start: 07-24-2022 End: 10-09-2022 take 50 mg by mouth once daily Prednisone Discontinued 50 MG PO Daily 4 July 23, 2022 11:00pm October 09, 2022 9:19pm Start: 2021 End: 12-06-2021 take 40 mg by mouth once daily in the morning Prednisone Discontinued 40 MG PO Every morning 10 September 26, 2021 11:00pm December 06, 2021 3:47pm administer with food or milk Start: 03-17-2021 End: 04-10-2021 take 50 mg by mouth once daily Prednisone Discontinued 50 MG PO Daily 5 March 16, 2021 11:00pm April 10, 2021 2:11am promethazine hydrochloride 25 mg oral tablet (20 sources) Phenothiazine Start: 05-02-2021 End: 05-21-2021 take 25 mg by mouth every six hours Promethazine Discontinued 25 MG PO Q6H May 02, 2021 12:00am May 21, 2021 1:38pm Start: 08-26-2020 End: 08-27-2020 take 25 mg by mouth every six hours Promethazine Discontinued 25 MG PO Q6H August 25, 2020 11:00pm August 27, 2020 11:38am sertraline 50 mg oral tablet (20 sources) Serotonin Reuptake Inhibitor Start: 04-10-2021 End: 05-30-2021 take 100 mg by mouth once daily in the morning Sertraline Discontinued 100 MG PO Every morning April 10, 2021 2:13am May 30, 2021 2:08pm Start: 12-24-2020 End: 04-10-2021 take 50 mg by mouth once daily in the morning Sertraline Discontinued 50 MG PO Every morning December 23, 2020 11:00pm April 10, 2021 2:13am Start: 10-24-2020 End: 12-17-2020 take 1 tablet by mouth every twenty-four hours Sertraline (Zoloft) 50 mg tablet Discontinued 50 MG PO Q24H October 23, 2020 11:00pm December 17, 2020 1:06pm Further refills per primary care Start: 09-21-2020 End: 10-23-2020 take 1 tablet by mouth once daily Sertraline (Zoloft) 25 mg Tablet Discontinued 25 MG PO Daily September 20, 2020 11:00pm October 23, 2020 11:15am Start: 10-22-2017 End: 08-01-2020 take 100 mg by mouth once daily Sertraline Discontinue d 100 MG PO Daily November 18, 2017 11:00pm August 01, 2020 12:13pm sulfamethoxazole 800 mg / trimethoprim 160 mg oral tablet (11 sources) Dihydrofolate Reductase Inhibitor Antibacterial, Sulfonamide Antimicrobial Start: 12-18-2021 End: 07-24-2022 take 1 tablet by mouth twice daily Sulfamethoxazole-Trimethoprim Discontinued 1 TAB PO Twice daily 2 December 17, 2021 11:00pm July 24, 2022 4:01pm Start: 12-18-2021 take 1 tablet by anayeli th twice daily Sulfamethoxazole-Trimethoprim Active 1 T AB PO Twice daily 2 December 18, 2021 12:00am topiramate 50 mg oral tablet (11 sources) Start: 06-25-2017 End: 10-22-2017 take 100 mg by mouth twice daily Topiramate Discontinued 100 MG PO Twice daily 60 June 25, 2017 12:00am October 22, 2017 5:52pm 24 hr venlafaxine 150 mg extended release oral capsule (11 sources) Serotonin and Norepinephrine Reuptake Inhibitor Start: 05-28-2017 End: 06-25-2017 take 150 mg by mouth once daily Venlafaxine Discontinued 150 MG PO Daily May 28, 2017 12:00am June 25, 2017 8:00am vilazodone hydrochloride 20 mg oral tablet (20 sources) Start: 06-18-2021 End: 09-04-2021 take 1 tablet by mouth once daily Vilazodone (Viibryd) 20 mg tablet Discontinued 10 MG PO Daily with supper August 31, 2021 1:49pm September 04, 2021 10:25am vortioxetine 5 mg oral tablet (20 sources) Start: 09-17-2021 End: 12-18-2021 take 1 tablet by mouth once daily Vortioxetine (Trintellix) 5 mg tablet Discontinued 5 MG PO Daily with supper December 06, 2021 7:39pm December 18, 2021 11:53am Start: 09-04-2021 End: 09-17-2021 take 1 tablet by mouth at bedtime Vortioxetine (Trintellix) 10 mg tablet Discontinued 10 MG PO Bedtime September 10, 2021 11:00pm September 17, 2021 10:16am ziprasidone 20 mg oral capsule (20 sources) Atypical Antipsychotic Start: 09-04-2021 End: 12-18-2021 Ziprasidone Hcl (Geodon) 20 mg Capsule Discontinued 20 MG PO 1700 September 10, 2021 11:00pm December 18, 2021 11:53am take with meal at least 500 calories Start: 06-18-2021 End: 09-04-2021 take 20 mg by mouth twice daily Ziprasidone Hcl Discon tinued 20 MG PO Twice daily 60 30 June 18, 2021 12:00am September 04, 2021 10:25am Start: 05-30-2021 End: 06-18-2021 take 1 capsule by mouth once daily at bedtime Ziprasidone Hcl (Geodon) 20 mg capsule Discontinued 20 MG PO Daily at bedtime June 07, 2021 10:46pm June 18, 2021 12:14pm Problems Active Problems Problem Classification Problem Date Documented Da te Episodic/Chronic Acute and unspecified renal failure (11 sources) Injury of kidney; Translations: [Acute kidney failure, unspecified] 06-25-2017 Episodic Administrative/social admission (20 sources) Patient encounter status; Translations: [Persons encountering health services in other specified circumstances] Onset: 3 06-02-2021 Episodic Anxiety disorders (15 sources) Anxiety; Translations: [Anxiety disorder, unspecified] Onset: 2 08-27-2020 Chronic Asthma (20 sources) Exacerbation of asthma; Translations: [Unspecified asthma with (acute) exacerbation] Onset: 2 03-17-2021 Chronic Cardiac dysrhythmias (12 sources) Postural orthostatic tachycardia syndrome ; Translations: [Other specified cardiac arrhythmias] Onset: 2 06-25-2017 Chronic Cardiac dysrhythmias (11 sources) Tachycardia; Translations: [Tachycardia, unspecified] 10-23-2020 Episodic Conditions associated with dizziness or vertigo (20 sources) Dizziness; Translations: [Dizziness and giddiness] 12-17-2020 Episodic Esophageal disorders (11 sources) Gastroesophageal reflux disease; Translations: [Gastro-esophageal reflux disease without esophagitis] 06-25-2017 Chronic Essential hypertension (1 source) Essential (primary) hypertension; Translations: [ESSENTIAL PRIMARY HYPERTENSION] Onset: 3 Chronic Fluid and electrolyte disorders (16 sources) Dehydration; Translations: [Dehydration] Onset: 2 10-23-2020 Episodic Malaise and fatigue (11 sources) Asthenia; Translations: [Weakness] 05-02-2021 Episodic Miscellaneous mental health disorders (20 sources) Eating disorder; Translations: [Eating disorder, unspecified] Onset: 2 12-06-2021 Chronic Mood disorders (20 sources) Major depressive disorder; Translations: [Major depressive disorder, single episode, unspecified] Onset: 2 05-21-2021 Chronic Mood disorders (3 sources) Mood disorders; Translations: [Depression, unspecified] Onset: 2 Nervous system congenital anomalies (1 source) 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]; Translations: [FAMILIAL DYSAUTONOMIA RD-DAY] Onset: 3 Chronic Nonspecific chest pain (3 sources) Chest pain; Translations: [Chest pain, unspecified] Onset: 3 03-21-2023 Episodic Nutritional deficiencies (1 source) Unspecified severe protein-calorie malnutrition; Translations: [Severe protein-calorie malnutrition (HCC)] Onset: 4 Chronic Other congenital anomalies (1 source) Congenital malformations of other endocrine glands; Translations: [CONGEN MALFORM OTH ENDOCRINE GLANDS] Onset: 3 Chronic Other gastrointestinal disorders (1 source) Gastrostomy status; Translations: [GASTROSTOMY STATUS] Onset: 2 Chronic Other gastrointestinal disorders (11 sources) Constipation; Translations: [Constipation, unspecified] 02-08-2021 Episodic Other gastrointestinal disorders (5 sources) Diarrhea; Translations: [Diarrhea, unspecified] 01-31-2023 Episodic Other hereditary and degenerative nervous system conditions (2 sources) Other specified forms of tremor; Translations: [Other specified forms of tremor] Onset: 2 Chronic Other lower respiratory disease (3 sources) Shortness of breath; Translations: [SHORTNESS OF BREATH] Onset: 3 Episodic Other nervous system disorders (11 sources) Disorder of autonomic nervous system; Translations: [Disorder of the autonomic nervous system, unspecified] 06-25-2017 Chronic Other nervous system disorders (2 sources) Tremor; Translations: [Abnormal involuntary movements] 02-24-2022 Episodic Other nervous system disorders (1 source) Other disturbances of skin sensation; Translations: [Other disturbances of skin sensation] Onset: 2 Episodic Other nutritional; endocrine; and metabolic disorders (1 source) Other disorders of phosphorus metabolism; 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] Onset: 4 Chronic Other nutritional; endocrine; and metabolic disorders (11 sources) Weight loss; Translations: [Abnormal weight loss] 10-23-2020 Episodic Personality disorders (16 sources) Borderline personality disorder; Translations: [Borderline personality disorder] Onset: 2 12-14-2021 Chronic Pneumonia (except that caused by tuberculosis or sexually transmitted disease) (11 sources) Atypical pneumonia; Translations: [Pneumonia, unspecified organism] 03-17-2021 Episodic Poisoning by other medications and drugs (11 sources) Poisoning by unspecified drugs, medicaments and biological substances, accidental (unintentional), initial encounter; Translations: [Acute drug overdose] 08-31-2021 Episodic Poisoning by psychotropic agents (1 source) Neuroleptic overdose; Translations: [Poisoning by other antipsychotics, neuroleptics, and major tranquilizers] 05-13-2022 Episodic Residual codes; unclassified (1 source) Body mass index (BMI) 22.0-22.9, adult; Translations: [Body mass index [BMI] 22.0-22.9, adult] Onset: 2 Episodic Residual codes; unclassified (1 source) Insomnia, unspecified; Translations: [Insomnia, unspecified] Onset: 2 Episodic Screening and history of mental health and substance abuse codes (11 sources) History of drug abuse; Translations: [Personal history of other mental and behavioral disorders] 02-08-2021 Episodic Substance-related disorders (20 sources) Cannabis abuse; Translations: [Cannabis abuse, uncomplicated] Onset: 2 06-27-2021 Chronic Suicide and intentional self-inflicted injury (20 sources) Poisoning by unspecified drugs, medicaments and biological substances, intentional self-harm, initial encounter; Translations: [Intentional drug overdose] Onset: 3 09-11-2021 Episodic Unclassified (2 sources) OTHER 02-24-2022 Comment on above: OTHER Unclassified (1 source) Marijuana abuse 02-24-2022 Unclassified (2 sources) SI / OD 05-13-2022 Comment on above: SI / OD Unclassified (1 source) Intentional Zyprexa overdose, initial encounter 05-13-2022 Unclassified (1 source) Contact with and (suspected) exposure to COVID-19; Translations: [Contact with and (suspected) exposure to COVID-19] Onset: 3 Unclassified (1 source) Personal history of nonsuicidal self-harm; Translations: [Personal history of nonsuicidal self-harm] Onset: 3 Unclassified (1 source) POSTURAL ORTHOSTATIC TACHY SYN POTS; Translations: [POSTURAL ORTHOSTATIC TACHY SYN POTS] Onset: 3 Unclassified (1 source) CONTACT W/AND (SUSP) EXPOS COVID-19; Translations: [CONTACT W/AND (SUSP) EXPOS COVID-19] Onset: 2 Unclassified (1 source) Anorexia nervosa, binge eating/purging type; Translations: [Anorexia nervosa, binge eating/purging type] Onset: 4 Unclassified (1 source) Other specified eating disorder; Translations: [Other specified eating disorder] Onset: 3 Past or Other Problems Problem Classification Problem Date Documented Da te Episodic/Chronic Abdominal pain (20 sources) Left flank pain; Translations: [Unspecified abdominal pain] Onset: 10-09-2022 02-08-2021 Episodic Influenza (1 source) Influenza due to other identified influenza virus with other respiratory manifestations; Translations: [FLU D/T OTH ID FLU VIR OTH RSP MANF] Onset: 02-07-2022 Episodic Nausea and vomiting (19 sources) Nausea and vomiting; Translations: [Nausea with vomiting, unspecified] Onset: 10-09-2022 05-02-2021 Episodic Other aftercare (3 sources) Other prison (current) drug therapy; Translations: [Other buttermaker (current) drug therapy] Onset: 02-07-2022 Episodic Other lower respiratory disease (1 source) Tachypnea, not elsewhere classified; Translations: [TACHYPNEA NOT ELSEWHERE CLASSIFIED] Onset: 02-07-2022 Episodic Other lower respiratory disease (1 source) Shortness of breath; Translations: [Shortness of breath] Onset: 07-24-2022 Episodic Other screening for suspected conditions (not mental disorders or infectious disease) (1 source) Other specified abnormal findings of blood chemistry; Translations: [OTH SPEC ABNORMAL FINDINGS BLD CHEM] Onset: 02-07-2022 Episodic Respiratory failure; insufficiency; arrest (adult) (1 source) Acute respiratory failure with hypoxia; Translations: [ACUTE RESPIRATORY FAIL W/HYPOXIA] Onset: 02-07-2022 Episodic Substance-related disorders (1 source) Drug withdrawal; Translations: [Drug withdrawal] Resolved: 02-24-2022 02-24-2022 Episodic Results Test Name Value Interpretation Reference Range Facility CNDSon 07-18-2023 CNDS Normal [facility] Magnesium SerPl-mCncon 07-17 Magnesium [Mass/Vol] 2.1 mg/dL Normal 1.7-2.3 [facility] Comment on above: Order Comment: Speci men Type: BLOOD SPECIMENOrdering Facility: [facility] Address: [address] [place] [address] Performed By: #### 1 9123-9, 43217-5 ####[facility] LABCLIA [id number] [place] [address] [place] Renal function 2000 panelon 07-18-2023 Albumin [Mass/Vol] 3.8 g/dL Low 3.9-4.9 [facility] Comment on above: Order Comment: Speci men Type: BLOOD SPECIMENOrdering Facility: [facility] Address: [address] [place] [address] Performed By: #### 1 9123-9, 04517-7 ####[facility] LABIA [id number] [place] [address] [place] Anion gap [Moles/Vol] 12 mmol/L Normal 9-18 [facility] Comment on above: Order Comment: Speci men Type: BLOOD SPECIMENOrdering Facility: [facility] Address: [address] [place] [address] Performed By: #### 1 9123-9, 84043-8 ####[facility] LABIA [id number] [place] [address] [place] Calcium [Mass/Vol] 9.5 mg/dL Normal 8.5-10.2 [facility] Comment on above: Order Comment: Speci men Type: BLOOD SPECIMENOrdering Facility: [facility] Address: [address] [place] [address] Performed By: #### 1 9123-9, 68794-1 ####[facility] LABCLIA [id number] [place] [id number] [place] Chloride [Moles/Vol] 105 mmol/L Normal 97-105 [facility] Comment on above: Order Comment: Speci men Type: BLOOD SPECIMENOrdering Facility: [facility] Address: [address] [place] [address] Performed By: #### 1 9123-9, 95760-0 ####[facility] LABCLIA [id number] [place] [address] [place] CO2 [Moles/Vol] 24 mmol/L Normal 22-30 [facility] Comment on above: Order Comment: Speci men Type: BLOOD SPECIMENOrdering Facility: [facility] Address: [address] [place] [address] Performed By: #### 1 9123-9, 02199-2 ####[facility] LABIA [id number] [place] [address] [place] Creatinine [Mass/Vol] 0.96 mg/dL Normal 0.58-0.96 [facility] Comment on above: Order Comment: Speci men Type: BLOOD SPECIMENOrdering Facility: [facility] Address: [address] [place] [address] Performed By: #### 1 9123-9, 38390-8 ####[facility] LABCLIA [id number] [place] [address] [place] Creatinine and Glomerular filtration rate.predicted panel (S/P/Bld) 82 mL/min/1.73m??? Normal >=60 [facility] Comment on above: Order Comment: Speci men Type: BLOOD SPECIMENOrdering Facility: [facility] Address: [address] [place] [address] Result Comment: Albina mated Glomerular Filtration Rate (eGFR) is calculated using the 2020 CKD-EPI creatinine equation. This equation utilizes serum creatinine, sex, and age as parameters. The creatinine assay has traceable calibration to isotope dilution-mass spectrometry. Refer to KDIGO guidelines for clinical interpretation. In patients with unstable renal function, e.g. those with acute kidney injury, the eGFR may not accurately reflect actual GFR. Performed By: #### 1 9123-9, 37020-2 ####[facility] LABCLIA [id number] [place] [address] [place] Glucose [Mass/Vol] 83 mg/dL Normal 74-99 [facility] Comment on above: Order Comment: Speci men Type: BLOOD SPECIMENOrdering Facility: [facility] Address: [address] [place] [address] Result Comment: The [place] [employer] (ADA) provides guidance for cutoff values for fasting glucose and random glucose. The ADA defines fasting as no caloric intake for at least 8 hours. Fasting plasma glucose results between 100 to 125 mg/dL indicate increased risk for diabetes (prediabetes).Fasting plasma glucose results greater than or equal to 126 mg/dL meet the criteria for diagnosis of diabetes. In the absence of unequivocal hyperglycemia, results should be confirmed by repeat testing. In a patient with classic symptoms of hyperglycemia or hyperglycemic crisis, random plasma glucose results greater than or equal to 200 mg/dL meet the criteria for diagnosis of diabetes.Reference: Standards of Medical Care in Diabetes 2016, [place] [employer]. Diabetes Care. 2016.39(Suppl 1). Performed By: #### 1 9123-9, 02724-3 ####[facility] LABCLIA [id number] [place] [id number] [place] Phosphate [Mass/Vol] 4.3 mg/dL Normal 2.7-4.8 [facility] Comment on above: Order Comment: Lisai men Type: BLOOD SPECIMENOrdering Facility: [facility] Address: [address] [place] [address] Performed By: #### 1 9123-9, 97818-0 ####[facility] LABCLIA [id number] [id number] [place] [address] [place] Potassium [Moles/Vol] 4.3 mmol/L Normal 3.7-5.1 [facility] Comment on above: Order Comment: Speci men Type: BLOOD SPECIMENOrdering Facility: [facility] Address: [address] [place] [address] Performed By: #### 1 9123-9, 50356-8 ####[facility] LABCLIA [id number] [place] [id number] [place] Sodium [Moles/Vol] 141 mmol/L Normal 136-144 [facility] Comment on above: Order Comment: Speci men Type: BLOOD SPECIMENOrdering Facility: [facility] Address: [address] [place] [address] Performed By: #### 1 9123-9, 38676-8 ####[facility] LABCLIA [id number] [place] [address] [place] Urea nitrogen [Mass/Vol] 18 mg/dL Normal 7-21 [facility] Comment on above: Order Comment: Speci men Type: BLOOD SPECIMENOrdering Facility: [facility] Address: [address] [place] [address] Performed By: #### 1 9123-9, 49624-9 ####[facility] LABCLIA [id number] [place] [id number] [place] CASE MANAGEMon 07-17-2023 CASE MANAGEM Normal [facility] Magnesium SerPl-mCncon 07-16 Magnesium [Mass/Vol] 2.0 mg/dL Normal 1.7-2.3 [facility] Comment on above: Order Comment: Speci men Type: BLOOD SPECIMENOrdering Facility: [facility] Address: [address] [place] [address] Performed By: #### 2 4362-6, 50333-7 ####[facility] LABCLIA [id number] [address] [id number], [place] [address] [place] NUTRITIONon 07-17-2023 NUTRITION Normal [facility] Renal function 2000 panelon 07-17-2023 Albumin [Mass/Vol] 4.3 g/dL Normal 3.9-4.9 [facility] Comment on above: Order Comment: Speci men Type: BLOOD SPECIMENOrdering Facility: [facility] Address: [address] [place] [address] Performed By: #### 2 4362-6, ####[facility] LABCLIA [id number] [place] [id number] [place] Anion gap [Moles/Vol] 12 mmol/L Normal 9-18 [facility] Comment on above: Order Comment: Speci men Type: BLOOD SPECIMENOrdering Facility: [facility] Address: [address] [place] [address] Performed By: #### 2 4362-6, ####[facility] LABCLIA [id number] [place] [id number] [place] Calcium [Mass/Vol] 9.9 mg/dL Normal 8.5-10.2 [facility] Comment on above: Order Comment: Speci men Type: BLOOD SPECIMENOrdering Facility: [facility] Address: [address] [place], [place] [id number] Performed By: #### 2 4362-6, ####[facility] LABCLIA [id number] [place] [id number] [place] Chloride [Moles/Vol] 104 mmol/L Normal 97-105 [facility] Comment on above: Order Comment: Speci men Type: BLOOD SPECIMENOrdering Facility: [facility] Address: [address] [place], [place] [id number] Performed By: #### 2 4362-6, ####[facility] LABCLIA [id number] [place] [id number] [place] CO2 [Moles/Vol] 24 mmol/L Normal 22-30 [facility] Comment on above: Order Comment: Speci men Type: BLOOD SPECIMENOrdering Facility: [facility] Address: [address] [place] [address] Performed By: #### 2 4362-6, ####[facility] LABCLIA [id number] [facility] [address] [address] [place] Creatinine [Mass/Vol] 1.03 mg/dL High 0.58-0.96 [facility] Comment on above: Order Comment: Speci men Type: BLOOD SPECIMENOrdering Facility: [facility] Address: [address] [place] [address] Performed By: #### 2 4362-6, ####[facility] LABCLIA [id number] [place] [address] [place] Creatinine and Glomerular filtration rate.predicted panel (S/P/Bld) 75 mL/min/1.73m??? Normal >=60 [facility] Comment on above: Order Comment: Speci men Type: BLOOD SPECIMENOrdering Facility: [facility] Address: [address] [place] [address] Result Comment: Albina mated Glomerular Filtration Rate (eGFR) is calculated using the 2020 CKD-EPI creatinine equation. This equation utilizes serum creatinine, sex, and age as parameters. The creatinine assay has traceable calibration to isotope dilution-mass spectrometry. Refer to KDIGO guidelines for clinical interpretation. In patients with unstable renal function, e.g. those with acute kidney injury, the eGFR may not accurately reflect actual GFR. Performed By: #### 2 4362-6, ####[facility] LABCLIA [id number] [place] [id number] [place] Glucose [Mass/Vol] 90 mg/dL Normal 74-99 [facility] Comment on above: Order Comment: Speci men Type: BLOOD SPECIMENOrdering Facility: [facility] Address: [address] [place] [address] Result Comment: The [place] Diabetes [employer] (ADA) provides guidance for cutoff values for fasting glucose and random glucose. The ADA defines fasting as no caloric intake for at least 8 hours. Fasting plasma glucose results between 100 to 125 mg/dL indicate increased risk for diabetes (prediabetes).Fasting plasma glucose results greater than or equal to 126 mg/dL meet the criteria for diagnosis of diabetes. In the absence of unequivocal hyperglycemia, results should be confirmed by repeat testing. In a patient with classic symptoms of hyperglycemia or hyperglycemic crisis, random plasma glucose results greater than or equal to 200 mg/dL meet the criteria for diagnosis of diabetes.Reference: Standards of Medical Care in Diabetes 2016, [place] [employer]. Diabetes Care. 2016.39(Suppl 1). Performed By: #### 2 4362-6, ####[facility] LABIA [id number] [place] [address] [place] Phosphate [Mass/Vol] 3.6 mg/dL Normal 2.7-4.8 [facility] Comment on above: Order Comment: Speci men Type: BLOOD SPECIMENOrdering Facility: [facility] Address: [address] [place] [address] Performed By: #### 2 4362-6, ####[facility] LABIA [id number] [place] [id number] [place] Potassium [Moles/Vol] 4.5 mmol/L Normal 3.7-5.1 [facility] Comment on above: Order Comment: Speci men Type: BLOOD SPECIMENOrdering Facility: [facility] Address: [address] [place] [address] Performed By: #### 2 4362-6, ####[facility] LABIA [id number] [address] [address] [place] Sodium [Moles/Vol] 140 mmol/L Normal 136-144 [facility] Comment on above: Order Comment: Speci men Type: BLOOD SPECIMENOrdering Facility: [facility] Address: [address] [place] [address] Performed By: #### 2 4362-6, ####[facility] LABCLIA [id number] [place] [address] [place] Urea nitrogen [Mass/Vol] 15 mg/dL Normal 7-21 [facility] Comment on above: Order Comment: Speci men Type: BLOOD SPECIMENOrdering Facility: [facility] Address: [address] [place] [address] Performed By: #### 2 4362-6, ####[facility] LABCLIA [id number] [place] [address] [place] URINALYSIS, DIPSTICK ONLYon 07-17-2023 Bilirubin Ql (U) Negative Normal Negative [facility] Comment on above: Order Comment: Speci men Type: URINE SPECIMENOrdering Facility: [facility] Address: [address] [place] [address] Performed By: #### U A ####[facility] LABCLIA [id number] [place] [address] [place] Clarity (Unsp spec) Clear Normal Clear [facility] Comment on above: Order Comment: Speci men Type: URINE SPECIMENOrdering Facility: [facility] Address: [address] [place] [address] Performed By: #### U A ####[facility] LABCLIA [id number] [place] [address] [place] Color (U) Yellow Normal Yellow [facility] Comment on above: Order Comment: Speci men Type: URINE SPECIMENOrdering Facility: [facility] Address: [address] [place] [address] Performed By: #### U A ####[facility] LABCLIA [id number] [place] [address] [place] Glucose Test strip (U) [Mass/Vol] Negative Normal Negative [facility] Comment on above: Order Comment: Speci men Type: URINE SPECIMENOrdering Facility: [facility] Address: [address] [place] [address] Performed By: #### U A ####[facility] LABCLIA [id number] [place] [address] [place] Hemoglobin Ql (U) Negative Normal Negative [facility] Comment on above: Order Comment: Speci men Type: URINE SPECIMENOrdering Facility: [facility] Address: [address] [place] [address] Performed By: #### U A ####[facility] LABCLIA [id number] [place] [address] [place] Ketones Ql (U) Negative Normal Negative [facility] Comment on above: Order Comment: Speci men Type: URINE SPECIMENOrdering Facility: [facility] Address: [address] [place] [address] Performed By: #### U A ####[facility] LABCLIA [id number] [place] [address] [place] Leukocyte esterase Test strip Ql (U) Negative Normal Negative [facility] Comment on above: Order Comment: Speci men Type: URINE SPECIMENOrdering Facility: [facility] Address: [address] [place] [address] Performed By: #### U A ####[facility] LABCLIA [id number] [place] [address] [place] Nitrite Ql (U) Negative Normal Negative [facility] Comment on above: Order Comment: Speci men Type: URINE SPECIMENOrdering Facility: [facility] Address: [address] [place] [address] Performed By: #### U A ####[facility] LABCLIA [id number] [place] [address] [place] pH (U) 8.0 [pH] Normal <8.5 [facility] Comment on above: Order Comment: Speci men Type: URINE SPECIMENOrdering Facility: [facility] Address: [address] [place] [address] Performed By: #### U A ####[facility] LABIA [id number] [place] [address] [place] Protein (U) [Mass/Vol] Negative Normal Negative [facility] Comment on above: Order Comment: Speci men Type: URINE SPECIMENOrdering Facility: [facility] Address: [address] [place] [address] Performed By: #### U A ####[facility] LABIA [id number] [place] [address] [place] Specific gravity (U) [Rel density] 1.015 Normal 1.005-1.030 [facility] Comment on above: Order Comment: Speci men Type: URINE SPECIMENOrdering Facility: [facility] Address: [address] [place] [address] Performed By: #### U A ####[facility]TON[facility] [id number] [place] [address] [place] Urobilinogen Ql (U) 0.2 EU/dL Normal 0.2-1.0 EU/dL [facility] Comment on above: Order Comment: Speci men Type: URINE SPECIMENOrdering Facility: [facility] Address: [address] [place] [address] Performed By: #### U A ####[facility] LABIA [id number] [place] [id number] [place] ALLIED HEALTHon 07-16-2023 ALLIED HEALTH Normal [facility] CASE MANAGEMon 07-16-2023 CASE MANAGEM Normal [facility] CASE MANAGEM Normal [facility] CONSULT PROGon 07-16-2023 CONSULT PROG Normal [facility] Magnesium SerPl-mCncon 07-15 Magnesium [Mass/Vol] 2.0 mg/dL Normal 1.7-2.3 [facility] Comment on above: Order Comment: Speci men Type: BLOOD SPECIMENOrdering Facility: [facility] Address: [address] [place] [address] Performed By: #### 1 9123-9, 46048-3 ####[facility] LABCLIA [id number] [facility] [address] [address] [place] NUTRITIONon 07-16-2023 NUTRITION Normal [facility] Renal function 2000 panelon 07-16-2023 Albumin [Mass/Vol] 4.1 g/dL Normal 3.9-4.9 [facility] Comment on above: Order Comment: Speci men Type: BLOOD SPECIMENOrdering Facility: [facility] Address: [address] [place] [address] Performed By: #### 1 9123-9, 04702-5 ####[facility] LABCLIA [id number] [facility] [place] [address] [place] Anion gap [Moles/Vol] 12 mmol/L Normal 9-18 [facility] Comment on above: Order Comment: Speci men Type: BLOOD SPECIMENOrdering Facility: [facility] Address: [address] [place] [address] Performed By: #### 1 9123-9, 36832-9 ####[facility] LABCLIA [id number] [facility] [place] [address] [place] Calcium [Mass/Vol] 9.4 mg/dL Normal 8.5-10.2 [facility] Comment on above: Order Comment: Speci men Type: BLOOD SPECIMENOrdering Facility: [facility] Address: [address] [place] [address] Performed By: #### 1 9123-9, 70771-9 ####[facility] LABCLIA [id number] [facility] [place] [id number] [place] Chloride [Moles/Vol] 105 mmol/L Normal 97-105 [facility] Comment on above: Order Comment: Speci men Type: BLOOD SPECIMENOrdering Facility: [facility] Address: [address] [place] [address] Performed By: #### 1 9123-9, 68150-8 ####[facility] LABCLIA [id number] [place] [address] [place] CO2 [Moles/Vol] 23 mmol/L Normal 22-30 [facility] Comment on above: Order Comment: Speci men Type: BLOOD SPECIMENOrdering Facility: [facility] Address: [address] [place] [address] Performed By: #### 1 9123-9, 33636-5 ####[facility] LABCLIA [id number] [address] [place] Creatinine [Mass/Vol] 0.90 mg/dL Normal 0.58-0.96 [facility] Comment on above: Order Comment: Speci men Type: BLOOD SPECIMENOrdering Facility: [facility] Address: [address] [place] [address] Performed By: #### 1 9123-9, 91965-0 ####[facility] LABCLIA [id number] [address] STATES OF [facility] Creatinine and Glomerular filtration rate.predicted panel (S/P/Bld) 88 mL/min/1.73m??? Normal >=60 [facility] Comment on above: Order Comment: Speci men Type: BLOOD SPECIMENOrdering Facility: [facility] Address: [address] [place] [address] Result Comment: Albina mated Glomerular Filtration Rate (eGFR) is calculated using the 2020 CKD-EPI creatinine equation. This equation utilizes serum creatinine, sex, and age as parameters. The creatinine assay has traceable calibration to isotope dilution-mass spectrometry. Refer to KDIGO guidelines for clinical interpretation. In patients with unstable renal function, e.g. those with acute kidney injury, the eGFR may not accurately reflect actual GFR. Performed By: #### 1 9123-9, 42065-9 ####[facility] LABCLIA [id number] [address] [address] [place] Glucose [Mass/Vol] 106 mg/dL High 74-99 [facility] Comment on above: Order Comment: Speci men Type: BLOOD SPECIMENOrdering Facility: [facility] Address: [address] [place] [address] Result Comment: The [place] Diabetes [employer] (ADA) provides guidance for cutoff values for fasting glucose and random glucose. The ADA defines fasting as no caloric intake for at least 8 hours. Fasting plasma glucose results between 100 to 125 mg/dL indicate increased risk for diabetes (prediabetes).Fasting plasma glucose results greater than or equal to 126 mg/dL meet the criteria for diagnosis of diabetes. In the absence of unequivocal hyperglycemia, results should be confirmed by repeat testing. In a patient with classic symptoms of hyperglycemia or hyperglycemic crisis, random plasma glucose results greater than or equal to 200 mg/dL meet the criteria for diagnosis of diabetes.Reference: Standards of Medical Care in Diabetes 2016, [place] [employer]. Diabetes Care. 2016.39(Suppl 1). Performed By: #### 1 9123-9, 48222-7 ####[facility] LABCLIA [id number] [place] [address] [place] Phosphate [Mass/Vol] 3.5 mg/dL Normal 2.7-4.8 [facility] Comment on above: Order Comment: Speci men Type: BLOOD SPECIMENOrdering Facility: [facility] Address: [address] [place] [address] Performed By: #### 1 9123-9, 07287-5 ####[facility] LABCLIA [id number] [place] [address] [place] Potassium [Moles/Vol] 4.1 mmol/L Normal 3.7-5.1 [facility] Comment on above: Order Comment: Speci men Type: BLOOD SPECIMENOrdering Facility: [facility] Address: [address] [place] [address] Performed By: #### 1 9123-9, 12128-0 ####[facility] LABCLIA [id number] [place] [address] [place] Sodium [Moles/Vol] 140 mmol/L Normal 136-144 [facility] Comment on above: Order Comment: Speci men Type: BLOOD SPECIMENOrdering Facility: [facility] Address: [address] [place] [address] Performed By: #### 1 9123-9, 09108-3 ####[facility] LABCLIA [id number] [place] [address] [place] Urea nitrogen [Mass/Vol] 14 mg/dL Normal 7-21 [facility] Comment on above: Order Comment: Speci men Type: BLOOD SPECIMENOrdering Facility: [facility] Address: [address] [place] [address] Performed By: #### 1 9123-9, 84813-8 ####[facility] LABIA [id number] [place] [address] [place] URINALYSIS, DIPSTICK ONLYon 07-16-2023 Bilirubin Ql (U) Negative Normal Negative [facility] Comment on above: Order Comment: Speci men Type: URINE SPECIMENOrdering Facility: [facility] Address: [address] [place] [address] Performed By: #### U A ####[facility] LABIA [id number] [place] [address] [place] Clarity (Unsp spec) Clear Normal Clear [facility] Comment on above: Order Comment: Speci men Type: URINE SPECIMENOrdering Facility: [facility] Address: [address] [place] [address] Performed By: #### U A ####[facility] LABIA [id number] [place] [address] [place] Color (U) Yellow Normal Yellow [facility] Comment on above: Order Comment: Speci men Type: URINE SPECIMENOrdering Facility: [facility] Address: [address] [place] [address] Performed By: #### U A ####[facility] LABCLIA [id number] [place] [address] [place] Glucose Test strip (U) [Mass/Vol] Negative Normal Negative [facility] Comment on above: Order Comment: Speci men Type: URINE SPECIMENOrdering Facility: [facility] Address: [address] [place] [address] Performed By: #### U A ####[facility] LABCLIA [id number] [place] [address] [place] Hemoglobin Ql (U) Negative Normal Negative [facility] Comment on above: Order Comment: Speci men Type: URINE SPECIMENOrdering Facility: [facility] Address: [address] [place] [address] Performed By: #### U A ####[facility] LABCLIA [id number] [place] [address] [place] Ketones Ql (U) Negative Normal Negative [facility] Comment on above: Order Comment: Speci men Type: URINE SPECIMENOrdering Facility: [facility] Address: [address] [place] [address] Performed By: #### U A ####[facility] LABCLIA [id number] [place] [address] [place] Leukocyte esterase Test strip Ql (U) Negative Normal Negative [facility] Comment on above: Order Comment: Speci men Type: URINE SPECIMENOrdering Facility: [facility] Address: [address] [place] [address] Performed By: #### U A ####[facility] LABCLIA [id number] [place] [address] [place] Nitrite Ql (U) Negative Normal Negative [facility] Comment on above: Order Comment: Speci men Type: URINE SPECIMENOrdering Facility: [facility] Address: [address] [place] [address] Performed By: #### U A ####[facility] LABIA [id number] [place] [address] [place] pH (U) 8.0 [pH] Normal <8.5 [facility] Comment on above: Order Comment: Speci men Type: URINE SPECIMENOrdering Facility: [facility] Address: [address] [place] [address] Performed By: #### U A ####[facility] [id number] [place] [address] [place] Protein (U) [Mass/Vol] Negative Normal Negative [facility] Comment on above: Order Comment: Speci men Type: URINE SPECIMENOrdering Facility: [facility] Address: [address] [place] [address] Performed By: #### U A ####[facility] [id number] [place] [address] [place] Specific gravity (U) [Rel density] 1.016 Normal 1.005-1.030 [facility] Comment on above: Order Comment: Speci men Type: URINE SPECIMENOrdering Facility: [facility] Address: [address] [place] [address] Performed By: #### U A ####[facility] [id number] [place] [address] [place] Urobilinogen Ql (U) 0.2 EU/dL Normal 0.2-1.0 EU/dL [facility] Comment on above: Order Comment: Speci men Type: URINE SPECIMENOrdering Facility: [facility] Address: [address] [place] [address] Performed By: #### U A ####[facility] [id number] [place] [address] [place] CASE MANAGEMon 07-15-2023 CASE MANAGEM Normal [facility] CONSULT PROGon 07-15-2023 CONSULT PROG Normal [facility] Magnesium SerPl-mCncon 07-14 Magnesium [Mass/Vol] 2.2 mg/dL Normal 1.7-2.3 [facility] Comment on above: Order Comment: Speci men Type: BLOOD SPECIMENOrdering Facility: [facility] Address: [address] [place] [address] Performed By: #### 2 4362-6, ####[facility] LABIA [id number] [place] [id number] [place] NUTRITIONon 07-15-2023 NUTRITION Normal [facility] Renal function 2000 panelon 07-15-2023 Albumin [Mass/Vol] 4.5 g/dL Normal 3.9-4.9 [facility] Comment on above: Order Comment: Speci men Type: BLOOD SPECIMENOrdering Facility: [facility] Address: [address] [place] [address] Performed By: #### 2 4362-6, ####[facility] LABIA [id number] [place] [address] [place] Anion gap [Moles/Vol] 10 mmol/L Normal 9-18 [facility] Comment on above: Order Comment: Speci men Type: BLOOD SPECIMENOrdering Facility: [facility] Address: [address] [place] [address] Performed By: #### 2 4362-6, ####[facility] LABIA [id number] [place] [id number] [place] Calcium [Mass/Vol] 9.5 mg/dL Normal 8.5-10.2 [facility] Comment on above: Order Comment: Speci men Type: BLOOD SPECIMENOrdering Facility: [facility] Address: [address] [place] [address] Performed By: #### 2 4362-, ####[facility] LABCLIA [id number] [address] [address] [place] Chloride [Moles/Vol] 106 mmol/L High 97-105 [facility] Comment on above: Order Comment: Speci men Type: BLOOD SPECIMENOrdering Facility: [facility] Address: [address] [place] [address] Performed By: #### 2 4362-6, ####[facility] LABCLIA [id number] [place] [address] [place] CO2 [Moles/Vol] 25 mmol/L Normal 22-30 [facility] Comment on above: Order Comment: Speci men Type: BLOOD SPECIMENOrdering Facility: [facility] Address: [address] [place] [address] Performed By: #### 2 4362-6, ####[facility] LABCLIA [id number] [place] [address] [place] Creatinine [Mass/Vol] 0.92 mg/dL Normal 0.58-0.96 [facility] Comment on above: Order Comment: Speci men Type: BLOOD SPECIMENOrdering Facility: [facility] Address: [address] [place] [address] Performed By: #### 2 4362-6, ####[facility] LABIA [id number] [place] [address] [place] Creatinine and Glomerular filtration rate.predicted panel (S/P/Bld) 86 mL/min/1.73m??? Normal >=60 [facility] Comment on above: Order Comment: Speci men Type: BLOOD SPECIMENOrdering Facility: [facility] Address: [address] [place] [address] Result Comment: Albina mated Glomerular Filtration Rate (eGFR) is calculated using the 2020 CKD-EPI creatinine equation. This equation utilizes serum creatinine, sex, and age as parameters. The creatinine assay has traceable calibration to isotope dilution-mass spectrometry. Refer to KDIGO guidelines for clinical interpretation. In patients with unstable renal function, e.g. those with acute kidney injury, the eGFR may not accurately reflect actual GFR. Performed By: #### 2 436-, ####[facility] LABCLIA [id number] [address] [address] [place] Glucose [Mass/Vol] 101 mg/dL High 74-99 [facility] Comment on above: Order Comment: Arnol osman Type: BLOOD SPECIMENOrdering Facility: [facility] Address: [address] [place] [address] Result Comment: The [place] Diabetes Association (ADA) provides guidance for cutoff values for fasting glucose and random glucose. The ADA defines fasting as no caloric intake for at least 8 hours. Fasting plasma glucose results between 100 to 125 mg/dL indicate increased risk for diabetes (prediabetes).Fasting plasma glucose results greater than or equal to 126 mg/dL meet the criteria for diagnosis of diabetes. In the absence of unequivocal hyperglycemia, results should be confirmed by repeat testing. In a patient with classic symptoms of hyperglycemia or hyperglycemic crisis, random plasma glucose results greater than or equal to 200 mg/dL meet the criteria for diagnosis of diabetes.Reference: Standards of Medical Care in Diabetes 2016, [place] [employer]. Diabetes Care. 2016.39(Suppl 1). Performed By: #### 2 43606-17, ####[facility] LABCLIA [id number] [address] [address] [place] Phosphate [Mass/Vol] 3.9 mg/dL Normal 2.7-4.8 [facility] Comment on above: Order Comment: Arnol osman Type: BLOOD SPECIMENOrdering Facility: [facility] Address: [address] [place] [address] Performed By: #### 2 43606-17, ####[facility] LABCLIA [id number] [address] [address] [place] Potassium [Moles/Vol] 4.4 mmol/L Normal 3.7-5.1 [facility] Comment on above: Order Comment: Speci men Type: BLOOD SPECIMENOrdering Facility: [facility] Address: [address] [place] [address] Performed By: #### 2 4362-6, ####[facility] LABCLIA [id number] [address] [address] [place] Sodium [Moles/Vol] 141 mmol/L Normal 136-144 [facility] Comment on above: Order Comment: Speci men Type: BLOOD SPECIMENOrdering Facility: [facility] Address: [address] [place] [address] Performed By: #### 2 4362-6, ####[facility] LABIA [id number] [place] [address] [place] Urea nitrogen [Mass/Vol] 10 mg/dL Normal 7-21 [facility] Comment on above: Order Comment: Speci men Type: BLOOD SPECIMENOrdering Facility: [facility] Address: [address] [place] [address] Performed By: #### 2 4362-6, ####[facility] LABIA [id number] [place] [address] [place] URINALYSIS, DIPSTICK ONLYon 07-15-2023 Bilirubin Ql (U) Negative Normal Negative [facility] Comment on above: Order Comment: Speci men Type: URINE SPECIMENOrdering Facility: [facility] Address: [address] [place] [address] Performed By: #### U A ####[facility] LABIA [id number] [place] [id number] [place] Clarity (Unsp spec) Clear Normal Clear [facility] Comment on above: Order Comment: Speci men Type: URINE SPECIMENOrdering Facility: [facility] Address: [address] [place] [address] Performed By: #### U A ####[facility] LABCLIA [id number] [place] [address] [place] Color (U) Yellow Normal Yellow [facility] Comment on above: Order Comment: Speci men Type: URINE SPECIMENOrdering Facility: [facility] Address: [address] [place] [address] Performed By: #### U A ####[facility] LABCLIA [id number] [address] [place] Glucose Test strip (U) [Mass/Vol] Negative Normal Negative [facility] Comment on above: Order Comment: Speci men Type: URINE SPECIMENOrdering Facility: [facility] Address: [address] [place] [address] Performed By: #### U A ####[facility] LABCLIA [id number] [address] [place] Hemoglobin Ql (U) Negative Normal Negative [facility] Comment on above: Order Comment: Speci men Type: URINE SPECIMENOrdering Facility: [facility] Address: [address] [place] [address] Performed By: #### U A ####[facility] LABCLIA [id number] [address] [place] Ketones Ql (U) Negative Normal Negative [facility] Comment on above: Order Comment: Speci men Type: URINE SPECIMENOrdering Facility: [facility] Address: [address] [place] [address] Performed By: #### U A ####[facility] LABCLIA [id number] [address] [place] Leukocyte esterase Test strip Ql (U) Negative Normal Negative [facility] Comment on above: Order Comment: Speci men Type: URINE SPECIMENOrdering Facility: [facility] Address: [address] [place] [address] Performed By: #### U A ####[facility] LABCLIA [id number] [place] [address] [place] Nitrite Ql (U) Negative Normal Negative [facility] Comment on above: Order Comment: Speci men Type: URINE SPECIMENOrdering Facility: [facility] Address: [address] [place] [address] Performed By: #### U A ####[facility] LABCLIA [id number] [place] [address] [place] pH (U) 8.0 [pH] Normal <8.5 [place] [facility] Comment on above: Order Comment: Speci men Type: URINE SPECIMENOrdering Facility: [facility] Address: [address] [place] [address] Performed By: #### U A ####[facility] LABIA [id number] [place] [address] [place] Protein (U) [Mass/Vol] Negative Normal Negative [facility] Comment on above: Order Comment: Speci men Type: URINE SPECIMENOrdering Facility: [facility] Address: [address] [place] [address] Performed By: #### U A ####[facility] LABIA [id number] [place] [address] [place] Specific gravity (U) [Rel density] 1.012 Normal 1.005-1.030 [facility] Comment on above: Order Comment: Speci men Type: URINE SPECIMENOrdering Facility: [facility] Address: [address] [place] [address] Performed By: #### U A ####[facility] LABIA [id number] [place] [address] [place] Urobilinogen Ql (U) 0.2 EU/dL Normal 0.2-1.0 EU/dL [facility] Comment on above: Order Comment: Speci men Type: URINE SPECIMENOrdering Facility: [facility] Address: [address] [place] [address] Performed By: #### U A ####[facility] LABIA [id number] [place] [address] [place] CASE MANAGEMon 07-14-2023 CASE MANAGEM Normal [facility] CASE MANAGEM Normal [facility] CBC panel Auto (Bld)on 07-13 Erythrocyte distribution width (RBC) [Ratio] 12.0 % Normal 11.5-15.0 [facility] Comment on above: Order Comment: Speci men Type: BLOOD SPECIMENOrdering Facility: [facility] Address: [address] [place] [address] Performed By: #### 5 8410-2 ####[facility] [id number] [place] [address] [place] Hematocrit (Bld) [Volume fraction] 41.1 % Normal 36.0-46.0 [facility] Comment on above: Order Comment: Speci men Type: BLOOD SPECIMENOrdering Facility: [facility] Address: [address] [place] [address] Performed By: #### 5 8410-2 ####[facility] LABIA [id number] [place] [address] [place] Hemoglobin (Bld) [Mass/Vol] 13.6 g/dL Normal 11.5-15.5 [facility] Comment on above: Order Comment: Speci men Type: BLOOD SPECIMENOrdering Facility: [facility] Address: [address] [place] [address] Performed By: #### 5 8410-2 ####[facility] LABIA [id number] [place] [address] [place] MCH (RBC) [Entitic mass] 31.3 pg Normal 26.0-34.0 [facility] Comment on above: Order Comment: Speci men Type: BLOOD SPECIMENOrdering Facility: [facility] Address: [address] [place] [address] Performed By: #### 5 8410-2 ####[facility] LABCLIA [id number] [place] [address] [place] MCHC (RBC) [Mass/Vol] 33.1 g/dL Normal 30.5-36.0 [facility] Comment on above: Order Comment: Speci men Type: BLOOD SPECIMENOrdering Facility: [facility] Address: [address] [place] [address] Performed By: #### 5 8410-2 ####[facility] LABCLIA [id number] [place] [address] [place] MCV (RBC) [Entitic vol] 94.5 fL Normal 80.0-100.0 [facility] Comment on above: Order Comment: Speci men Type: BLOOD SPECIMENOrdering Facility: [facility] Address: [address] [place] [address] Performed By: #### 5 8410-2 ####[facility] LABIA [id number] [place] [address] [place] Nucleated RBC (Bld) [#/Vol] 10*3/uL Normal <0.01 [facility] Comment on above: Order Comment: Speci men Type: BLOOD SPECIMENOrdering Facility: [facility] Address: [address] [place] [address] Performed By: #### 5 8410-2 ####[facility] LABCLIA [id number] [place] [address] [place] Platelet mean volume (Bld) [Entitic vol] 12.8 fL High 9.0-12.7 [facility] Comment on above: Order Comment: Speci men Type: BLOOD SPECIMENOrdering Facility: [facility] Address: [address] [place] [address] Performed By: #### 5 8410-2 ####[facility] LABCLIA [id number] [place] [address] [place] Platelets (Bld) [#/Vol] 206 10*3/uL Normal 150-400 [facility] Comment on above: Order Comment: Speci men Type: BLOOD SPECIMENOrdering Facility: [facility] Address: [address] [place] [address] Performed By: #### 5 8410-2 ####[facility] LABIA [id number] [place] [address] [place] RBC (Bld) [#/Vol] 4.35 10*6/uL Normal 3.90-5.20 [facility] Comment on above: Order Comment: Speci men Type: BLOOD SPECIMENOrdering Facility: [facility] Address: [address] [place] [address] Performed By: #### 5 8410-2 ####[facility] LABIA [id number] [place] [address] [place] WBC (Bld) [#/Vol] 10.44 10*3/uL Normal 3.70-11.00 [facility] Comment on above: Order Comment: Speci men Type: BLOOD SPECIMENOrdering Facility: [facility] Address: [address] [place] [address] Performed By: #### 5 8410-2 ####[facility] LABIA [id number] [place] [address] [place] CONSULT PROGon 07-14-2023 CONSULT PROG Normal [facility] Magnesium SerPl-mCncon 07-13 Magnesium [Mass/Vol] 2.1 mg/dL Normal 1.7-2.3 [facility] Comment on above: Order Comment: Speci men Type: BLOOD SPECIMENOrdering Facility: [facility] Address: [address] [place] [address] Performed By: #### 1 9123-9, 36977-6 ####[facility] LABCLIA [id number] [address] [address] [place] NUTRITIONon 07-14-2023 NUTRITION Normal [facility] Renal function 2000 panelon 07-14-2023 Albumin [Mass/Vol] 4.0 g/dL Normal 3.9-4.9 [facility] Comment on above: Order Comment: Speci men Type: BLOOD SPECIMENOrdering Facility: [facility] Address: [address] [place] [address] Performed By: #### 1 9123-9, 16573-5 ####[facility] LABCLIA [id number] [place] [address] [place] Anion gap [Moles/Vol] 11 mmol/L Normal 9-18 [facility] Comment on above: Order Comment: Speci men Type: BLOOD SPECIMENOrdering Facility: [facility] Address: [address] [place] [address] Performed By: #### 1 9123-9, 02959-0 ####[facility] LABIA [id number] [place] [address] [place] Calcium [Mass/Vol] 9.3 mg/dL Normal 8.5-10.2 [facility] Comment on above: Order Comment: Speci men Type: BLOOD SPECIMENOrdering Facility: [facility] Address: [address] [place] [address] Performed By: #### 1 9123-9, 65344-8 ####[facility] LABCLIA [id number] [place] [id number] [place] Chloride [Moles/Vol] 108 mmol/L High 97-105 [facility] Comment on above: Order Comment: Speci men Type: BLOOD SPECIMENOrdering Facility: [facility] Address: [address] [place] [address] Performed By: #### 1 9123-9, 13600-8 ####[facility] LABCLIA [id number] [place] [id number] [place] CO2 [Moles/Vol] 23 mmol/L Normal 22-30 [facility] Comment on above: Order Comment: Lisai men Type: BLOOD SPECIMENOrdering Facility: [facility] Address: [address] [place] [address] Performed By: #### 1 9123-9, 93654-5 ####[facility] LABCLIA [id number] [place] [address] [place] Creatinine [Mass/Vol] 0.88 mg/dL Normal 0.58-0.96 [facility] Comment on above: Order Comment: Speci men Type: BLOOD SPECIMENOrdering Facility: [facility] Address: [address] [place] [address] Performed By: #### 1 9123-9, 19017-6 ####[facility] LABCLIA [id number] [address] [place] Creatinine and Glomerular filtration rate.predicted panel (S/P/Bld) 91 mL/min/1.73m??? Normal >=60 [facility] Comment on above: Order Comment: Arnol osman Type: BLOOD SPECIMENOrdering Facility: [facility] Address: [address] [place] [address] Result Comment: Albina mated Glomerular Filtration Rate (eGFR) is calculated using the 2020 CKD-EPI creatinine equation. This equation utilizes serum creatinine, sex, and age as parameters. The creatinine assay has traceable calibration to isotope dilution-mass spectrometry. Refer to KDIGO guidelines for clinical interpretation. In patients with unstable renal function, e.g. those with acute kidney injury, the eGFR may not accurately reflect actual GFR. Performed By: #### 1 9123-9, 41689-0 ####[facility] LABCLIA [id number] [place] [address] [place] Glucose [Mass/Vol] 89 mg/dL Normal 74-99 [facility] Comment on above: Order Comment: Lisai men Type: BLOOD SPECIMENOrdering Facility: [facility] Address: [address] [place] [address] Result Comment: The [place] [employer] (ADA) provides guidance for cutoff values for fasting glucose and random glucose. The ADA defines fasting as no caloric intake for at least 8 hours. Fasting plasma glucose results between 100 to 125 mg/dL indicate increased risk for diabetes (prediabetes).Fasting plasma glucose results greater than or equal to 126 mg/dL meet the criteria for diagnosis of diabetes. In the absence of unequivocal hyperglycemia, results should be confirmed by repeat testing. In a patient with classic symptoms of hyperglycemia or hyperglycemic crisis, random plasma glucose results greater than or equal to 200 mg/dL meet the criteria for diagnosis of diabetes.Reference: Standards of Medical Care in Diabetes 2016, [place] [employer]. Diabetes Care. 2016.39(Suppl 1). Performed By: #### 1 9123-9, 20219-8 ####[facility] LABIA [id number] [place] [address] [place] Phosphate [Mass/Vol] 3.4 mg/dL Normal 2.7-4.8 [facility] Comment on above: Order Comment: Speci men Type: BLOOD SPECIMENOrdering Facility: [facility] Address: [address] [place] [address] Performed By: #### 1 9123-9, 56386-1 ####[facility] LABIA [id number] [place] [address] [place] Potassium [Moles/Vol] 4.4 mmol/L Normal 3.7-5.1 [facility] Comment on above: Order Comment: Speci men Type: BLOOD SPECIMENOrdering Facility: [facility] Address: [address] [place] [address] Performed By: #### 1 9123-9, 92104-4 ####[facility] LABIA [id number] [place] [address] [place] Sodium [Moles/Vol] 142 mmol/L Normal 136-144 [facility] Comment on above: Order Comment: Speci men Type: BLOOD SPECIMENOrdering Facility: [facility] Address: [address] [place] [address] Performed By: #### 1 9123-9, 12575-4 ####[facility] LABCLIA [id number] [place] [address] [place] Urea nitrogen [Mass/Vol] 9 mg/dL Normal 7-21 [facility] Comment on above: Order Comment: Speci men Type: BLOOD SPECIMENOrdering Facility: [facility] Address: [address] [place] [address] Performed By: #### 1 9123-9, 65349-7 ####[facility] LABCLIA [id number] [place] [address] [place] URINALYSIS, DIPSTICK ONLYon 07-14-2023 Bilirubin Ql (U) Negative Normal Negative [facility] Comment on above: Order Comment: Speci men Type: URINE SPECIMENOrdering Facility: [facility] Address: [address] [place] [address] Performed By: #### U A ####[facility] LABIA [id number] [place] [address] [place] Clarity (Unsp spec) Cloudy Abnormal Clear [facility] Comment on above: Order Comment: Speci men Type: URINE SPECIMENOrdering Facility: [facility] Address: [address] [place] [address] Performed By: #### U A ####[facility] LABCLIA [id number] [place] [address] [place] Color (U) Yellow Normal Yellow [facility] Comment on above: Order Comment: Speci men Type: URINE SPECIMENOrdering Facility: [facility] Address: [address] [place] [address] Performed By: #### U A ####[facility] LABIA [id number] [place] [address] [place] Glucose Test strip (U) [Mass/Vol] Negative Normal Negative [facility] Comment on above: Order Comment: Speci men Type: URINE SPECIMENOrdering Facility: [facility] Address: [address] [place] [address] Performed By: #### U A ####[facility] LABCLIA [id number] [place] [address] [place] Hemoglobin Ql (U) 2+ Abnormal Negative [facility] Comment on above: Order Comment: Speci men Type: URINE SPECIMENOrdering Facility: [facility] Address: [address] [place] [address] Performed By: #### U A ####[facility] LABCLIA [id number] [place] [address] [place] Ketones Ql (U) Negative Normal Negative [facility] Comment on above: Order Comment: Speci men Type: URINE SPECIMENOrdering Facility: [facility] Address: [address] [place] [address] Performed By: #### U A ####[facility] LABCLIA [id number] [place] [address] [place] Leukocyte esterase Test strip Ql (U) Negative Normal Negative [facility] Comment on above: Order Comment: Speci men Type: URINE SPECIMENOrdering Facility: [facility] Address: [address] [place] [address] Performed By: #### U A ####[facility] LABCLIA [id number] [place] [address] [place] Nitrite Ql (U) Negative Normal Negative [facility] Comment on above: Order Comment: Speci men Type: URINE SPECIMENOrdering Facility: [facility] Address: [address] [place] [address] Performed By: #### U A ####[facility] LABCLIA [id number] [place] [address] [place] pH (U) 8.0 [pH] Normal <8.5 [facility] Comment on above: Order Comment: Speci men Type: URINE SPECIMENOrdering Facility: [facility] Address: [address] [place] [address] Performed By: #### U A ####[facility] LABIA [id number] [place] [address] [place] Protein (U) [Mass/Vol] Negative Normal Negative [facility] Comment on above: Order Comment: Speci men Type: URINE SPECIMENOrdering Facility: [facility] Address: [address] [place] [address] Performed By: #### U A ####[facility] LABIA [id number] [place] [address] [place] Specific gravity (U) [Rel density] 1.013 Normal 1.005-1.030 [facility] Comment on above: Order Comment: Speci men Type: URINE SPECIMENOrdering Facility: [facility] Address: [address] [place] [address] Performed By: #### U A ####[facility] LABIA [id number] [place] [address] [place] Urobilinogen Ql (U) 0.2 EU/dL Normal 0.2-1.0 EU/dL [facility] Comment on above: Order Comment: Speci men Type: URINE SPECIMENOrdering Facility: [facility] Address: [address] [place] [address] Performed By: #### U A ####[facility] LABIA [id number] [place] [address] [place] CBC panel Auto (Bld)on 07-12 Erythrocyte distribution width (RBC) [Ratio] 11.9 % Normal 11.5-15.0 [facility] Comment on above: Order Comment: Speci men Type: BLOOD SPECIMENOrdering Facility: [facility] Address: [address] [place] [address] Performed By: #### 5 8410-2 ####[facility] LABIA [id number] [place] [address] [place] Hematocrit (Bld) [Volume fraction] 42.1 % Normal 36.0-46.0 [facility] Comment on above: Order Comment: Speci men Type: BLOOD SPECIMENOrdering Facility: [facility] Address: [address] [place] [address] Performed By: #### 5 8410-2 ####[facility] LABIA [id number] [place] [address] [place] Hemoglobin (Bld) [Mass/Vol] 14.2 g/dL Normal 11.5-15.5 [facility] Comment on above: Order Comment: Speci men Type: BLOOD SPECIMENOrdering Facility: [facility] Address: [address] [place] [address] Performed By: #### 5 8410-2 ####[facility] LABIA [id number] [place] [address] [place] MCH (RBC) [Entitic mass] 31.8 pg Normal 26.0-34.0 [facility] Comment on above: Order Comment: Speci men Type: BLOOD SPECIMENOrdering Facility: [facility] Address: [address] [place] [address] Performed By: #### 5 8410-2 ####[facility] LABIA [id number] [place] [address] [place] MCHC (RBC) [Mass/Vol] 33.7 g/dL Normal 30.5-36.0 [facility] Comment on above: Order Comment: Speci men Type: BLOOD SPECIMENOrdering Facility: [facility] Address: [address] [place] [address] Performed By: #### 5 8410-2 ####[facility] LABIA [id number] [place] [address] [place] MCV (RBC) [Entitic vol] 94.4 fL Normal 80.0-100.0 [facility] Comment on above: Order Comment: Speci men Type: BLOOD SPECIMENOrdering Facility: [facility] Address: [address] [place] [address] Performed By: #### 5 8410-2 ####[facility] LABCLIA [id number] [place] [address] [place] Nucleated RBC (Bld) [#/Vol] 10*3/uL Normal <0.01 [facility] Comment on above: Order Comment: Speci men Type: BLOOD SPECIMENOrdering Facility: [facility] Address: [address] [place] [address] Performed By: #### 5 8410-2 ####[facility] LABIA [id number] [place] [address] [place] Platelet mean volume (Bld) [Entitic vol] 12.6 fL Normal 9.0-12.7 [facility] Comment on above: Order Comment: Speci men Type: BLOOD SPECIMENOrdering Facility: [facility] Address: [address] [place] [address] Performed By: #### 5 8410-2 ####[facility] LABIA [id number] [place] [address] [place] Platelets (Bld) [#/Vol] 194 10*3/uL Normal 150-400 [facility] Comment on above: Order Comment: Speci men Type: BLOOD SPECIMENOrdering Facility: [facility] Address: [address] [place] [address] Performed By: #### 5 8410-2 ####[facility] LABCLIA [id number] [place] [address] [place] RBC (Bld) [#/Vol] 4.46 10*6/uL Normal 3.90-5.20 [facility] Comment on above: Order Comment: Speci men Type: BLOOD SPECIMENOrdering Facility: [facility] Address: [address] [place] [address] Performed By: #### 5 8410-2 ####[facility] LABCLIA [id number] [place] [address] [place] WBC (Bld) [#/Vol] 9.65 10*3/uL Normal 3.70-11.00 [facility] Comment on above: Order Comment: Speci men Type: BLOOD SPECIMENOrdering Facility: [facility] Address: [address] [place] [address] Performed By: #### 5 8410-2 ####[facility] LABCLIA [id number] [place] [address] [place] Magnesium SerPl-mCncon 07-12 Magnesium [Mass/Vol] 2.2 mg/dL Normal 1.7-2.3 [facility] Comment on above: Order Comment: Speci men Type: BLOOD SPECIMENOrdering Facility: [facility] Address: [address] [place] [address] Performed By: #### 2 4362-6, 41573-8 ####[facility] LABIA [id number] [place] [address] [place] NUTRITIONon 07-13-2023 NUTRITION Normal [facility] Renal function 2000 panelon 07-13-2023 Albumin [Mass/Vol] 4.1 g/dL Normal 3.9-4.9 [facility] Comment on above: Order Comment: Speci men Type: BLOOD SPECIMENOrdering Facility: [facility] Address: [address] [place] [address] Performed By: #### 2 4362-6, 31744-6 ####[facility] LABCLIA [id number] [place] [address] [place] Anion gap [Moles/Vol] 10 mmol/L Normal 9-18 [facility] Comment on above: Order Comment: Speci men Type: BLOOD SPECIMENOrdering Facility: [facility] Address: [address] [place], [place] [address] Performed By: #### 2 4362-6, ####[facility] LABCLIA [id number] [address] [address] [place] Calcium [Mass/Vol] 9.3 mg/dL Normal 8.5-10.2 [facility] Comment on above: Order Comment: Speci men Type: BLOOD SPECIMENOrdering Facility: [facility] Address: [address] [place], [place] [address] Performed By: #### 2 4362-6, ####[facility] LABCLIA [id number] [place] [address] [place] Chloride [Moles/Vol] 108 mmol/L High 97-105 [facility] Comment on above: Order Comment: Speci men Type: BLOOD SPECIMENOrdering Facility: [facility] Address: [address] [place], [place] [address] Performed By: #### 2 4362-6, ####[facility] LABCLIA [id number] [place] [address] [place] CO2 [Moles/Vol] 24 mmol/L Normal 22-30 [facility] Comment on above: Order Comment: Speci men Type: BLOOD SPECIMENOrdering Facility: [facility] Address: [address] [place], [place] [address] Performed By: #### 2 4362-6, ####[facility] LABCLIA [id number] [place] [id number] [place] Creatinine [Mass/Vol] 0.96 mg/dL Normal 0.58-0.96 [facility] Comment on above: Order Comment: Speci men Type: BLOOD SPECIMENOrdering Facility: [facility] Address: [address] [place], [place] [address] Performed By: #### 2 4362-6, ####[facility] LABCLIA [id number] [place] [address] [place] Creatinine and Glomerular filtration rate.predicted panel (S/P/Bld) 82 mL/min/1.73m??? Normal >=60 [facility] Comment on above: Order Comment: Arnol osman Type: BLOOD SPECIMENOrdering Facility: [facility] Address: [address] [place] [address] Result Comment: Albina mated Glomerular Filtration Rate (eGFR) is calculated using the 2020 CKD-EPI creatinine equation. This equation utilizes serum creatinine, sex, and age as parameters. The creatinine assay has traceable calibration to isotope dilution-mass spectrometry. Refer to KDIGO guidelines for clinical interpretation. In patients with unstable renal function, e.g. those with acute kidney injury, the eGFR may not accurately reflect actual GFR. Performed By: #### 2 4362-6, ####[facility] LABCLIA [id number] [place] [address] [place] Glucose [Mass/Vol] 103 mg/dL High 74-99 [facility] Comment on above: Order Comment: Arnol osman Type: BLOOD SPECIMENOrdering Facility: [facility] Address: [address] [place] [address] Result Comment: The [place] Diabetes [employer] (ADA) provides guidance for cutoff values for fasting glucose and random glucose. The ADA defines fasting as no caloric intake for at least 8 hours. Fasting plasma glucose results between 100 to 125 mg/dL indicate increased risk for diabetes (prediabetes).Fasting plasma glucose results greater than or equal to 126 mg/dL meet the criteria for diagnosis of diabetes. In the absence of unequivocal hyperglycemia, results should be confirmed by repeat testing. In a patient with classic symptoms of hyperglycemia or hyperglycemic crisis, random plasma glucose results greater than or equal to 200 mg/dL meet the criteria for diagnosis of diabetes.Reference: Standards of Medical Care in Diabetes 2016, [place] [employer]. Diabetes Care. 2016.39(Suppl 1). Performed By: #### 2 4362-6, ####[facility] LABCLIA [id number] [address] [address] [place] Phosphate [Mass/Vol] 3.2 mg/dL Normal 2.7-4.8 [facility] Comment on above: Order Comment: Speci men Type: BLOOD SPECIMENOrdering Facility: [facility] Address: [address] [place] [address] Performed By: #### 2 4362-6, ####[facility] LABCLIA [id number] [place] [id number] [place] Potassium [Moles/Vol] 4.3 mmol/L Normal 3.7-5.1 [facility] Comment on above: Order Comment: Speci men Type: BLOOD SPECIMENOrdering Facility: [facility] Address: [address] [place] [address] Performed By: #### 2 4362-6, ####[facility] LABIA [id number] [place] [id number] [place] Sodium [Moles/Vol] 142 mmol/L Normal 136-144 [facility] Comment on above: Order Comment: Speci men Type: BLOOD SPECIMENOrdering Facility: [facility] Address: [address] [place] [address] Performed By: #### 2 4362-6, ####[facility] LABIA [id number] [place] [id number] [place] Urea nitrogen [Mass/Vol] 8 mg/dL Normal 7-21 [facility] Comment on above: Order Comment: Speci men Type: BLOOD SPECIMENOrdering Facility: [facility] Address: [address] [place], [place] [id number] Performed By: #### 2 4362-6, ####[facility] LABIA [id number] [place] [id number] [place] URINALYSIS, DIPSTICK ONLYon 07-13-2023 Bilirubin Ql (U) Negative Normal Negative [facility] Comment on above: Order Comment: Speci men Type: URINE SPECIMENOrdering Facility: [facility] Address: [address] [place] [address] Performed By: #### U A ####[facility] LABCLIA [id number] [place] [address] [place] Clarity (Unsp spec) Cloudy Abnormal Clear [facility] Comment on above: Order Comment: Speci men Type: URINE SPECIMENOrdering Facility: [facility] Address: [address] [place] [address] Performed By: #### U A ####[facility] LABCLIA [id number] [place] [address] [place] [facility] Color (U) Yellow Normal Yellow [facility] Comment on above: Order Comment: Speci men Type: URINE SPECIMENOrdering Facility: [facility] Address: [address] [place] [address] Performed By: #### U A ####[facility] LABCLIA [id number] [place] [address] [place] Glucose Test strip (U) [Mass/Vol] Negative Normal Negative [facility] Comment on above: Order Comment: Speci men Type: URINE SPECIMENOrdering Facility: [facility] Address: [address] [place] [address] Performed By: #### U A ####[facility] LABCLIA [id number] [place] [address] [place] Hemoglobin Ql (U) Negative Normal Negative [facility] Comment on above: Order Comment: Speci men Type: URINE SPECIMENOrdering Facility: [facility] Address: [address] [place] [address] Performed By: #### U A ####[facility] LABCLIA [id number] [place] [address] [place] Ketones Ql (U) Negative Normal Negative [facility] Comment on above: Order Comment: Speci men Type: URINE SPECIMENOrdering Facility: [facility] Address: [address] [place] [address] Performed By: #### U A ####[facility] LABCLIA [id number] [place] [address] [place] Leukocyte esterase Test strip Ql (U) Trace Abnormal Negative [facility] Comment on above: Order Comment: Speci men Type: URINE SPECIMENOrdering Facility: [facility] Address: [address] [place] [address] Performed By: #### U A ####[facility] LABCLIA [id number] [place] [address] [place] Nitrite Ql (U) Negative Normal Negative [facility] Comment on above: Order Comment: Speci men Type: URINE SPECIMENOrdering Facility: [facility] Address: [address] [place] [address] Performed By: #### U A ####[facility] LABCLIA [id number] [place] [address] [place] pH (U) 8.0 [pH] Normal <8.5 [facility] Comment on above: Order Comment: Speci men Type: URINE SPECIMENOrdering Facility: [facility] Address: [address] [place] [address] Performed By: #### U A ####[facility] LABCLIA [id number] [place] [address] [place] Protein (U) [Mass/Vol] Negative Normal Negative [facility] Comment on above: Order Comment: Speci men Type: URINE SPECIMENOrdering Facility: [facility] Address: [address] [place] [address] Performed By: #### U A ####[facility] LABCLIA [id number] [place] [address] [place] Specific gravity (U) [Rel density] 1.022 Normal 1.005-1.030 [facility] Comment on above: Order Comment: Speci men Type: URINE SPECIMENOrdering Facility: [facility] Address: [address] [place] [address] Performed By: #### U A ####[facility] LABCLIA [id number] [place] [address] [place] Urobilinogen Ql (U) 0.2 EU/dL Normal 0.2-1.0 EU/dL [facility] Comment on above: Order Comment: Speci men Type: URINE SPECIMENOrdering Facility: [facility] Address: [address] [place] [address] Performed By: #### U A ####[facility] LABIA [id number] [place] [address] [place] ALLIED HEALTHon 07-12-2023 ALLIED HEALTH Normal [facility] B-HCG SerPl-aCncon HCG.beta subunit Qn m[IU]/mL Normal <5.0 [facility] Comment on above: Order Comment: Speci men Type: BLOOD SPECIMENOrdering Facility: [facility] Address: [address] [place] [address] Result Comment: Vanessa glynn Performed By: #### 2 1198-7 ####[facility] LABIA [id number] [place] [address] [place] CBC panel Auto (Bld)on 07-11 Erythrocyte distribution width (RBC) [Ratio] 12.0 % Normal 11.5-15.0 [facility] Comment on above: Order Comment: Speci men Type: BLOOD SPECIMENOrdering Facility: [facility] Address: [address] [place] [address] Performed By: #### 5 8410-2 ####[facility] LABIA [id number] [place] [address] [place] Hematocrit (Bld) [Volume fraction] 41.0 % Normal 36.0-46.0 [facility] Comment on above: Order Comment: Speci men Type: BLOOD SPECIMENOrdering Facility: [facility] Address: [address] [place] [address] Performed By: #### 5 8410-2 ####[facility] LABCLIA [id number] [place] [address] [place] Hemoglobin (Bld) [Mass/Vol] 13.6 g/dL Normal 11.5-15.5 [facility] Comment on above: Order Comment: Speci men Type: BLOOD SPECIMENOrdering Facility: [facility] Address: [address] [place] [address] Performed By: #### 5 8410-2 ####[facility] LABCLIA [id number] [place] [address] [place] MCH (RBC) [Entitic mass] 31.5 pg Normal 26.0-34.0 [facility] Comment on above: Order Comment: Speci men Type: BLOOD SPECIMENOrdering Facility: [facility] Address: [address] [place] [address] Performed By: #### 5 8410-2 ####[facility] LABIA [id number] [place] [address] [place] MCHC (RBC) [Mass/Vol] 33.2 g/dL Normal 30.5-36.0 [facility] Comment on above: Order Comment: Speci men Type: BLOOD SPECIMENOrdering Facility: [facility] Address: [address] [place] [address] Performed By: #### 5 8410-2 ####[facility] LABCLIA [id number] [place] [address] [place] MCV (RBC) [Entitic vol] 94.9 fL Normal 80.0-100.0 [facility] Comment on above: Order Comment: Speci men Type: BLOOD SPECIMENOrdering Facility: [facility] Address: [address] [place] [address] Performed By: #### 5 8410-2 ####[facility] LABIA [id number] [place] [address] [place] Nucleated RBC (Bld) [#/Vol] 10*3/uL Normal <0.01 [facility] Comment on above: Order Comment: Speci men Type: BLOOD SPECIMENOrdering Facility: [facility] Address: [address] [place] [address] Performed By: #### 5 8410-2 ####[facility] LABIA [id number] [place] [address] [place] Platelet mean volume (Bld) [Entitic vol] 12.8 fL High 9.0-12.7 [facility] Comment on above: Order Comment: Speci men Type: BLOOD SPECIMENOrdering Facility: [facility] Address: [address] [place] [address] Performed By: #### 5 8410-2 ####[facility] LABIA [id number] [place] [address] [place] Platelets (Bld) [#/Vol] 202 10*3/uL Normal 150-400 [facility] Comment on above: Order Comment: Speci men Type: BLOOD SPECIMENOrdering Facility: [facility] Address: [address] [place] [address] Performed By: #### 5 8410-2 ####[facility] LABIA [id number] [place] [address] [place] RBC (Bld) [#/Vol] 4.32 10*6/uL Normal 3.90-5.20 [facility] Comment on above: Order Comment: Speci men Type: BLOOD SPECIMENOrdering Facility: [facility] Address: [address] [place] [address] Performed By: #### 5 8410-2 ####[facility] LABCLIA [id number] [address] [address] [place] WBC (Bld) [#/Vol] 10.07 10*3/uL Normal 3.70-11.00 [facility] Comment on above: Order Comment: Speci men Type: BLOOD SPECIMENOrdering Facility: [facility] Address: [address] [place] [address] Performed By: #### 5 8410-2 ####[facility] LABCLIA [id number] [place] [address] [place] Magnesium SerPl-ncon 07-11 Magnesium [Mass/Vol] 2.2 mg/dL Normal 1.7-2.3 [facility] Comment on above: Order Comment: Speci men Type: BLOOD SPECIMENOrdering Facility: [facility] Address: [address] [place] [address] Performed By: #### 1 9123-9, 20236-6 ####[facility] LABCLIA [id number] [place] [address] [place] Renal function 2000 panelon 07-12-2023 Albumin [Mass/Vol] 4.2 g/dL Normal 3.9-4.9 [facility] Comment on above: Order Comment: Speci men Type: BLOOD SPECIMENOrdering Facility: [facility] Address: [address] [place] [address] Performed By: #### 1 9123-9, 94816-1 ####[facility] LABCLIA [id number] [place] [id number] [place] Anion gap [Moles/Vol] 10 mmol/L Normal 9-18 [facility] Comment on above: Order Comment: Speci men Type: BLOOD SPECIMENOrdering Facility: [facility] Address: [address] [place] [address] Performed By: #### 1 9123-9, 18307-9 ####[facility] LABCLIA [id number] [address] [address] [place] Calcium [Mass/Vol] 9.1 mg/dL Normal 8.5-10.2 [facility] Comment on above: Order Comment: Speci men Type: BLOOD SPECIMENOrdering Facility: [facility] Address: [address] [place] [address] Performed By: #### 1 9123-9, 29484-8 ####[facility] LABCLIA [id number] [place] [address] [place] Chloride [Moles/Vol] 104 mmol/L Normal 97-105 [facility] Comment on above: Order Comment: Speci men Type: BLOOD SPECIMENOrdering Facility: [facility] Address: [address] [place] [address] Performed By: #### 1 9123-9, 21909-2 ####[facility] LABCLIA [id number] [place] [address] [place] CO2 [Moles/Vol] 25 mmol/L Normal 22-30 [facility] Comment on above: Order Comment: Speci men Type: BLOOD SPECIMENOrdering Facility: [facility] Address: [address] [place] [address] Performed By: #### 1 9123-9, 71604-9 ####[facility] LABCLIA [id number] [place] [address] [place] Creatinine [Mass/Vol] 0.87 mg/dL Normal 0.58-0.96 [facility] Comment on above: Order Comment: Speci men Type: BLOOD SPECIMENOrdering Facility: [facility] Address: [address] [place] [address] Performed By: #### 1 9123-9, 91528-4 ####[facility] LABCLIA [id number] [place] [address] [place] Creatinine and Glomerular filtration rate.predicted panel (S/P/Bld) 92 mL/min/1.73m??? Normal >=60 [facility] Comment on above: Order Comment: Arnol osman Type: BLOOD SPECIMENOrdering Facility: [facility] Address: [address] [place] [address] Result Comment: Albina mated Glomerular Filtration Rate (eGFR) is calculated using the 2020 CKD-EPI creatinine equation. This equation utilizes serum creatinine, sex, and age as parameters. The creatinine assay has traceable calibration to isotope dilution-mass spectrometry. Refer to KDIGO guidelines for clinical interpretation. In patients with unstable renal function, e.g. those with acute kidney injury, the eGFR may not accurately reflect actual GFR. Performed By: #### 1 9123-9, 01627-9 ####[facility] LABCLIA [id number] [place] [address] [place] Glucose [Mass/Vol] 174 mg/dL High 74-99 [facility] Comment on above: Order Comment: Arnol osman Type: BLOOD SPECIMENOrdering Facility: [facility] Address: [address] [place] [address] Result Comment: The [place] Diabetes Association (ADA) provides guidance for cutoff values for fasting glucose and random glucose. The ADA defines fasting as no caloric intake for at least 8 hours. Fasting plasma glucose results between 100 to 125 mg/dL indicate increased risk for diabetes (prediabetes).Fasting plasma glucose results greater than or equal to 126 mg/dL meet the criteria for diagnosis of diabetes. In the absence of unequivocal hyperglycemia, results should be confirmed by repeat testing. In a patient with classic symptoms of hyperglycemia or hyperglycemic crisis, random plasma glucose results greater than or equal to 200 mg/dL meet the criteria for diagnosis of diabetes.Reference: Standards of Medical Care in Diabetes 2016, [place] [employer]. Diabetes Care. 2016.39(Suppl 1). Performed By: #### 1 9123-9, 70155-9 ####[facility] LABCLIA [id number] [place] [address] [place] Phosphate [Mass/Vol] 3.5 mg/dL Normal 2.7-4.8 [facility] Comment on above: Order Comment: Speci men Type: BLOOD SPECIMENOrdering Facility: [facility] Address: [address] [place] [address] Performed By: #### 1 9123-9, 97381-9 ####[facility] LABCLIA [id number] [place] [address] [place] Potassium [Moles/Vol] 4.4 mmol/L Normal 3.7-5.1 [facility] Comment on above: Order Comment: Speci men Type: BLOOD SPECIMENOrdering Facility: [facility] Address: [address] [place] [address] Performed By: #### 1 9123-9, 00465-1 ####[facility] LABCLIA [id number] [place] [address] [place] Sodium [Moles/Vol] 139 mmol/L Normal 136-144 [facility] Comment on above: Order Comment: Speci men Type: BLOOD SPECIMENOrdering Facility: [facility] Address: [address] [place] [address] Performed By: #### 1 9123-9, 52101-9 ####[facility] LABCLIA [id number] [place] [address] [place] Urea nitrogen [Mass/Vol] 8 mg/dL Normal 7-21 [facility] Comment on above: Order Comment: Speci men Type: BLOOD SPECIMENOrdering Facility: [facility] Address: [address] [place] [address] Performed By: #### 1 9123-9, 64489-6 ####[facility] LABCLIA [id number] [place] [address] [place] S pyo DNA Throat Ql HEENA+prob chris 07-12-2023 S. pyogenes DNA HEENA+probe Ql (Throat) Not detected Normal Not detected [facility] Comment on above: Order Comment: Speci men Type: SWABOrdering Facility: [facility] Address: [address] [place] [address] Performed By: #### 6 0489-2 ####[facility] LABCLIA [id number] [place] [address] [place] URINALYSIS, DIPSTICK ONLYon 07-12-2023 Bilirubin Ql (U) Negative Normal Negative [facility] Comment on above: Order Comment: Speci men Type: URINE SPECIMENOrdering Facility: [facility] Address: [address] [place] [address] Performed By: #### U A ####[facility] LABCLIA [id number] [place] [address] [place] Clarity (Unsp spec) Clear Normal Clear [facility] Comment on above: Order Comment: Speci men Type: URINE SPECIMENOrdering Facility: [facility] Address: [address] [place] [address] Performed By: #### U A ####[facility] LABCLIA [id number] [place] [address] [place] Color (U) Yellow Normal Yellow [facility] Comment on above: Order Comment: Speci men Type: URINE SPECIMENOrdering Facility: [facility] Address: [address] [place] [address] Performed By: #### U A ####[facility] LABCLIA [id number] [place] [address] [place] Glucose Test strip (U) [Mass/Vol] Negative Normal Negative [facility] Comment on above: Order Comment: Speci men Type: URINE SPECIMENOrdering Facility: [facility] Address: [address] [place] [address] Performed By: #### U A ####[facility] LABCLIA [id number] [place] [address] [place] Hemoglobin Ql (U) Negative Normal Negative [facility] Comment on above: Order Comment: Speci men Type: URINE SPECIMENOrdering Facility: [facility] Address: [address] [place] [address] Performed By: #### U A ####[facility] LABCLIA [id number] [place] [address] [place] Ketones Ql (U) Negative Normal Negative [facility] Comment on above: Order Comment: Speci men Type: URINE SPECIMENOrdering Facility: [facility] Address: [address] [place] [address] Performed By: #### U A ####[facility] LABIA [id number] [place] [address] [place] Leukocyte esterase Test strip Ql (U) Negative Normal Negative [facility] Comment on above: Order Comment: Speci men Type: URINE SPECIMENOrdering Facility: [facility] Address: [address] [place] [address] Performed By: #### U A ####[facility] LABCLIA [id number] [place] [address] [place] Nitrite Ql (U) Negative Normal Negative [facility] Comment on above: Order Comment: Speci men Type: URINE SPECIMENOrdering Facility: [facility] Address: [address] [place] [address] Performed By: #### U A ####[facility] LABIA [id number] [place] [address] [place] pH (U) 7.5 [pH] Normal <8.5 [facility] Comment on above: Order Comment: Speci men Type: URINE SPECIMENOrdering Facility: [facility] Address: [address] [place] [address] Performed By: #### U A ####[facility] LABCLIA [id number] [place] [address] [place] Protein (U) [Mass/Vol] Negative Normal Negative [facility] Comment on above: Order Comment: Speci men Type: URINE SPECIMENOrdering Facility: [facility] Address: [address] [place] [address] Performed By: #### U A ####[facility] LABIA [id number] [place] [address] [place] Specific gravity (U) [Rel density] 1.007 Normal 1.005-1.030 [facility] Comment on above: Order Comment: Speci men Type: URINE SPECIMENOrdering Facility: [facility] Address: [address] [place] [address] Performed By: #### U A ####[facility] [id number] [place] [address] [place] Urobilinogen Ql (U) 0.2 EU/dL Normal 0.2-1.0 EU/dL [facility] Comment on above: Order Comment: Speci men Type: URINE SPECIMENOrdering Facility: [facility] Address: [address] [place] [address] Performed By: #### U A ####[facility] LABIA [id number] [place] [address] [place] Bilirubin Ql (U) Negative Normal Negative [facility] Comment on above: Order Comment: Speci men Type: URINE SPECIMENOrdering Facility: [facility] Address: [address] [place] [address] Performed By: #### U A ####[facility] LABIA [id number] [place] [address] [place] Clarity (Unsp spec) Clear Normal Clear [facility] Comment on above: Order Comment: Speci men Type: URINE SPECIMENOrdering Facility: [facility] Address: [address] [place] [address] Performed By: #### U A ####[facility] LABIA [id number] [place] [address] [place] Color (U) Yellow Normal Yellow [facility] Comment on above: Order Comment: Speci men Type: URINE SPECIMENOrdering Facility: [facility] Address: [address] [place] [address] Performed By: #### U A ####[facility] LABCLIA [id number] [place] [address] [place] Glucose Test strip (U) [Mass/Vol] Negative Normal Negative [facility] Comment on above: Order Comment: Speci men Type: URINE SPECIMENOrdering Facility: [facility] Address: [address] [place] [address] Performed By: #### U A ####[facility] LABCLIA [id number] [place] [address] [place] Hemoglobin Ql (U) Negative Normal Negative [facility] Comment on above: Order Comment: Speci men Type: URINE SPECIMENOrdering Facility: [facility] Address: [address] [place] [address] Performed By: #### U A ####[facility] LABCLIA [id number] [place] [address] [place] Ketones Ql (U) Negative Normal Negative [facility] Comment on above: Order Comment: Speci men Type: URINE SPECIMENOrdering Facility: [facility] Address: [address] [place] [address] Performed By: #### U A ####[facility] LABCLIA [id number] [place] [address] [place] Leukocyte esterase Test strip Ql (U) Negative Normal Negative [facility] Comment on above: Order Comment: Speci men Type: URINE SPECIMENOrdering Facility: [facility] Address: [address] [place] [address] Performed By: #### U A ####[facility] LABCLIA [id number] [place] [address] [place] Nitrite Ql (U) Negative Normal Negative [facility] Comment on above: Order Comment: Speci men Type: URINE SPECIMENOrdering Facility: [facility] Address: [address] [place] [address] Performed By: #### U A ####[facility] LABIA [id number] [place] [address] [place] pH (U) 7.5 [pH] Normal <8.5 [facility] Comment on above: Order Comment: Speci men Type: URINE SPECIMENOrdering Facility: [facility] Address: [address] [place] [address] Performed By: #### U A ####[facility] [id number] [place] [address] [place] Protein (U) [Mass/Vol] Negative Normal Negative [facility] Comment on above: Order Comment: Speci men Type: URINE SPECIMENOrdering Facility: [facility] Address: [address] [place] [address] Performed By: #### U A ####[facility] [id number] [place] [address] [place] Specific gravity (U) [Rel density] 1.009 Normal 1.005-1.030 [facility] Comment on above: Order Comment: Speci men Type: URINE SPECIMENOrdering Facility: [facility] Address: [address] [place] [address] Performed By: #### U A ####[facility] LABIA [id number] [place] [address] [place] Urobilinogen Ql (U) 0.2 EU/dL Normal 0.2-1.0 EU/dL [facility] Comment on above: Order Comment: Speci men Type: URINE SPECIMENOrdering Facility: [facility] Address: [address] [place] [address] Performed By: #### U A ####[facility] LABIA [id number] [place] [address] [place] CASE MANAGEMon 07-11-2023 CASE MANAGEM Normal [facility] CBC panel Auto (Bld)on 07-10 Erythrocyte distribution width (RBC) [Ratio] 12.1 % Normal 11.5-15.0 [facility] Comment on above: Order Comment: Speci men Type: BLOOD SPECIMENOrdering Facility: [facility] Address: [address] [place] [address] Performed By: #### 5 8410-2 ####[facility] LABIA [id number] [place] [address] [place] Hematocrit (Bld) [Volume fraction] 41.6 % Normal 36.0-46.0 [facility] Comment on above: Order Comment: Speci men Type: BLOOD SPECIMENOrdering Facility: [facility] Address: [address] [place] [address] Performed By: #### 5 8410-2 ####[facility] LABIA [id number] [place] [address] [place] Hemoglobin (Bld) [Mass/Vol] 14.4 g/dL Normal 11.5-15.5 [facility] Comment on above: Order Comment: Speci men Type: BLOOD SPECIMENOrdering Facility: [facility] Address: [address] [place] [address] Performed By: #### 5 8410-2 ####[facility] LABIA [id number] [place] [address] [place] MCH (RBC) [Entitic mass] 32.0 pg Normal 26.0-34.0 [facility] Comment on above: Order Comment: Speci men Type: BLOOD SPECIMENOrdering Facility: [facility] Address: [address] [place] [address] Performed By: #### 5 8410-2 ####[facility] LABIA [id number] [place] [address] [place] MCHC (RBC) [Mass/Vol] 34.6 g/dL Normal 30.5-36.0 [facility] Comment on above: Order Comment: Speci men Type: BLOOD SPECIMENOrdering Facility: [facility] Address: [address] [place] [address] Performed By: #### 5 8410-2 ####[facility] LABCLIA [id number] [place] [address] [place] MCV (RBC) [Entitic vol] 92.4 fL Normal 80.0-100.0 [facility] Comment on above: Order Comment: Speci men Type: BLOOD SPECIMENOrdering Facility: [facility] Address: [address] [place] [address] Performed By: #### 5 8410-2 ####[facility] LABCLIA [id number] [place] [address] [place] Nucleated RBC (Bld) [#/Vol] 10*3/uL Normal <0.01 [facility] Comment on above: Order Comment: Speci men Type: BLOOD SPECIMENOrdering Facility: [facility] Address: [address] [place] [address] Performed By: #### 5 8410-2 ####[facility] LABCLIA [id number] [place] [address] [place] Platelet mean volume (Bld) [Entitic vol] 12.7 fL Normal 9.0-12.7 [facility] Comment on above: Order Comment: Speci men Type: BLOOD SPECIMENOrdering Facility: [facility] Address: [address] [place] [address] Performed By: #### 5 8410-2 ####[facility] LABCLIA [id number] [place] [address] [place] Platelets (Bld) [#/Vol] 185 10*3/uL Normal 150-400 [facility] Comment on above: Order Comment: Speci men Type: BLOOD SPECIMENOrdering Facility: [facility] Address: [address] [place] [address] Performed By: #### 5 8410-2 ####[facility] LABCLIA [id number] [place] [address] [place] RBC (Bld) [#/Vol] 4.50 10*6/uL Normal 3.90-5.20 [facility] Comment on above: Order Comment: Speci men Type: BLOOD SPECIMENOrdering Facility: [facility] Address: [address] [place] [address] Performed By: #### 5 8410-2 ####[facility] LABIA [id number] [place] [address] [place] WBC (Bld) [#/Vol] 9.63 10*3/uL Normal 3.70-11.00 [facility] Comment on above: Order Comment: Speci men Type: BLOOD SPECIMENOrdering Facility: [facility] Address: [address] [place] [address] Performed By: #### 5 8410-2 ####[facility] LABIA [id number] [place] [address] [place] CONSULTon 07-11-2023 CONSULT Normal [facility] CONSULT PROGon 07-11-2023 CONSULT PROG Normal [facility] Magnesium SerPl-mCncon 07-10 Magnesium [Mass/Vol] 2.2 mg/dL Normal 1.7-2.3 [facility] Comment on above: Order Comment: Speci men Type: BLOOD SPECIMENOrdering Facility: [facility] Address: [address] [place] [address] Performed By: #### 1 9123-9, 88067-4 ####[facility] LABCLIA [id number] [place] [address] [place] NUTRITIONon 07-11-2023 NUTRITION Normal [facility] Renal function 2000 panelon 07-11-2023 Albumin [Mass/Vol] 4.3 g/dL Normal 3.9-4.9 [facility] Comment on above: Order Comment: Speci men Type: BLOOD SPECIMENOrdering Facility: [facility] Address: [address] [place] [address] Performed By: #### 1 9123-9, 37871-8 ####[facility] LABCLIA [id number] [place] [address] [place] Anion gap [Moles/Vol] 12 mmol/L Normal 9-18 [facility] Comment on above: Order Comment: Speci men Type: BLOOD SPECIMENOrdering Facility: [facility] Address: [address] [place] [address] Performed By: #### 1 9123-9, 96671-1 ####[facility] LABCLIA [id number] [place] [address] [place] Calcium [Mass/Vol] 9.5 mg/dL Normal 8.5-10.2 [facility] Comment on above: Order Comment: Speci men Type: BLOOD SPECIMENOrdering Facility: [facility] Address: [address] [place] [address] Performed By: #### 1 9123-9, 77843-2 ####[facility] LABCLIA [id number] [place] [address] [place] Chloride [Moles/Vol] 107 mmol/L High 97-105 [facility] Comment on above: Order Comment: Speci men Type: BLOOD SPECIMENOrdering Facility: [facility] Address: [address] [place] [address] Performed By: #### 1 9123-9, 97753-7 ####[facility] LABCLIA [id number] [place] [address] [place] CO2 [Moles/Vol] 23 mmol/L Normal 22-30 [facility] Comment on above: Order Comment: Speci men Type: BLOOD SPECIMENOrdering Facility: [facility] Address: [address] [place] [address] Performed By: #### 1 9123-9, 34234-3 ####[facility] LABIA [id number] [address] [address] [place] Creatinine [Mass/Vol] 0.89 mg/dL Normal 0.58-0.96 [facility] Comment on above: Order Comment: Speci men Type: BLOOD SPECIMENOrdering Facility: [facility] Address: [address] [place] [address] Performed By: #### 1 9123-9, 30981-9 ####[facility] LABIA [id number] [place] [address] [place] Creatinine and Glomerular filtration rate.predicted panel (S/P/Bld) 90 mL/min/1.73m??? Normal >=60 [facility] Comment on above: Order Comment: Lisajuancarlos men Type: BLOOD SPECIMENOrdering Facility: [facility] Address: [address] [place] [address] Result Comment: Albina mated Glomerular Filtration Rate (eGFR) is calculated using the 2020 CKD-EPI creatinine equation. This equation utilizes serum creatinine, sex, and age as parameters. The creatinine assay has traceable calibration to isotope dilution-mass spectrometry. Refer to KDIGO guidelines for clinical interpretation. In patients with unstable renal function, e.g. those with acute kidney injury, the eGFR may not accurately reflect actual GFR. Performed By: #### 1 9123-9, 33137-7 ####[facility] LABIA [id number] [place] [id number] [place] Glucose [Mass/Vol] 82 mg/dL Normal 74-99 [facility] Comment on above: Order Comment: Arnol men Type: BLOOD SPECIMENOrdering Facility: [facility] Address: [address] [place] [address] Result Comment: The [place] [employer] (ADA) provides guidance for cutoff values for fasting glucose and random glucose. The ADA defines fasting as no caloric intake for at least 8 hours. Fasting plasma glucose results between 100 to 125 mg/dL indicate increased risk for diabetes (prediabetes).Fasting plasma glucose results greater than or equal to 126 mg/dL meet the criteria for diagnosis of diabetes. In the absence of unequivocal hyperglycemia, results should be confirmed by repeat testing. In a patient with classic symptoms of hyperglycemia or hyperglycemic crisis, random plasma glucose results greater than or equal to 200 mg/dL meet the criteria for diagnosis of diabetes.Reference: Standards of Medical Care in Diabetes 2016, [place] [employer]. Diabetes Care. 2016.39(Suppl 1). Performed By: #### 1 9123-9, 83722-3 ####[facility] LABCLIA [id number] [place] [address] [place] Phosphate [Mass/Vol] 4.3 mg/dL Normal 2.7-4.8 [facility] Comment on above: Order Comment: Speci men Type: BLOOD SPECIMENOrdering Facility: [facility] Address: [address] [place] [address] Performed By: #### 1 9123-9, 60108-6 ####[facility] LABCLIA [id number] [place] [address] [place] Potassium [Moles/Vol] 4.2 mmol/L Normal 3.7-5.1 [facility] Comment on above: Order Comment: Speci men Type: BLOOD SPECIMENOrdering Facility: [facility] Address: [address] [place] [address] Performed By: #### 1 9123-9, 71492-0 ####[facility] LABCLIA [id number] [place] [id number] [place] Sodium [Moles/Vol] 142 mmol/L Normal 136-144 [facility] Comment on above: Order Comment: Speci men Type: BLOOD SPECIMENOrdering Facility: [facility] Address: [address] [place] [address] Performed By: #### 1 9123-9, 64634-6 ####[facility] LABCLIA [id number] [place] [address] [place] Urea nitrogen [Mass/Vol] 7 mg/dL Normal 7-21 [facility] Comment on above: Order Comment: Speci men Type: BLOOD SPECIMENOrdering Facility: [facility] Address: [address] [place] [address] Performed By: #### 1 9123-9, 52445-1 ####[facility] LABIA [id number] [place] [address] [place] URINALYSIS, DIPSTICK ONLYon 07-11-2023 Bilirubin Ql (U) Negative Normal Negative [facility] Comment on above: Order Comment: Speci men Type: URINE SPECIMENOrdering Facility: [facility] Address: [address] [place] [address] Performed By: #### U A ####[facility] LABIA [id number] [place] [address] [place] Clarity (Unsp spec) Clear Normal Clear [facility] Comment on above: Order Comment: Speci men Type: URINE SPECIMENOrdering Facility: [facility] Address: [address] [place] [address] Performed By: #### U A ####[facility] LABIA [id number] [place] [address] [place] Color (U) Yellow Normal Yellow [facility] Comment on above: Order Comment: Speci men Type: URINE SPECIMENOrdering Facility: [facility] Address: [address] [place] [address] Performed By: #### U A ####[facility] LABIA [id number] [place] [address] [place] Glucose Test strip (U) [Mass/Vol] Negative Normal Negative [facility] Comment on above: Order Comment: Speci men Type: URINE SPECIMENOrdering Facility: [facility] Address: [address] [place] [address] Performed By: #### U A ####[facility] LABCLIA [id number] [place] [address] [place] Hemoglobin Ql (U) Negative Normal Negative [facility] Comment on above: Order Comment: Speci men Type: URINE SPECIMENOrdering Facility: [facility] Address: [address] [place] [address] Performed By: #### U A ####[facility] LABCLIA [id number] [place] [address] [place] Ketones Ql (U) Negative Normal Negative [facility] Comment on above: Order Comment: Speci men Type: URINE SPECIMENOrdering Facility: [facility] Address: [address] [place] [address] Performed By: #### U A ####[facility] LABCLIA [id number] [place] [address] [place] Leukocyte esterase Test strip Ql (U) Negative Normal Negative [facility] Comment on above: Order Comment: Speci men Type: URINE SPECIMENOrdering Facility: [facility] Address: [address] [place] [address] Performed By: #### U A ####[facility] LABCLIA [id number] [place] [address] [place] Nitrite Ql (U) Negative Normal Negative [facility] Comment on above: Order Comment: Speci men Type: URINE SPECIMENOrdering Facility: [facility] Address: [address] [place] [address] Performed By: #### U A ####[facility] LABCLIA [id number] [place] [address] [place] pH (U) 7.5 [pH] Normal <8.5 [facility] Comment on above: Order Comment: Speci men Type: URINE SPECIMENOrdering Facility: [facility] Address: [address] [place], [place] [id number] Performed By: #### U A ####[facility] LABIA [id number] [place] [address] [place] Protein (U) [Mass/Vol] Negative Normal Negative [facility] Comment on above: Order Comment: Speci men Type: URINE SPECIMENOrdering Facility: [facility] Address: [address] [place] [address] Performed By: #### U A ####[facility] LABIA [id number] [place] [address] [place] Specific gravity (U) [Rel density] 1.005 Normal 1.005-1.030 [facility] Comment on above: Order Comment: Speci men Type: URINE SPECIMENOrdering Facility: [facility] Address: [address] [place] [address] Performed By: #### U A ####[facility] [id number] [place] [address] [place] Urobilinogen Ql (U) 0.2 EU/dL Normal 0.2-1.0 EU/dL [facility] Comment on above: Order Comment: Speci men Type: URINE SPECIMENOrdering Facility: [facility] Address: [address] [place] [address] Performed By: #### U A ####[facility] [id number] [place] [address] [place] CASE MANAGEMon 07-10-2023 CASE MANAGEM Normal [facility] CBC panel Auto (Bld)on Erythrocyte distribution width (RBC) [Ratio] 12.4 % Normal 11.5-15.0 [facility] Comment on above: Order Comment: Speci men Type: BLOOD SPECIMENOrdering Facility: [facility] Address: [address] [place] [address] Performed By: #### 5 8410-2 ####[facility] [id number] [place] [address] [place] Hematocrit (Bld) [Volume fraction] 39.4 % Normal 36.0-46.0 [facility] Comment on above: Order Comment: Speci men Type: BLOOD SPECIMENOrdering Facility: [facility] Address: [address] [place] [address] Performed By: #### 5 8410-2 ####[facility] LABIA [id number] [place] [address] [place] Hemoglobin (Bld) [Mass/Vol] 13.8 g/dL Normal 11.5-15.5 [facility] Comment on above: Order Comment: Speci men Type: BLOOD SPECIMENOrdering Facility: [facility] Address: [address] [place] [address] Performed By: #### 5 8410-2 ####[facility] LABIA [id number] [place] [address] [place] MCH (RBC) [Entitic mass] 32.4 pg Normal 26.0-34.0 [facility] Comment on above: Order Comment: Speci men Type: BLOOD SPECIMENOrdering Facility: [facility] Address: [address] [place] [address] Performed By: #### 5 8410-2 ####[facility] LABIA [id number] [place] [address] [place] MCHC (RBC) [Mass/Vol] 35.0 g/dL Normal 30.5-36.0 [facility] Comment on above: Order Comment: Speci men Type: BLOOD SPECIMENOrdering Facility: [facility] Address: [address] [place] [address] Performed By: #### 5 8410-2 ####[facility] LABIA [id number] [place] [address] [place] MCV (RBC) [Entitic vol] 92.5 fL Normal 80.0-100.0 [facility] Comment on above: Order Comment: Speci men Type: BLOOD SPECIMENOrdering Facility: [facility] Address: [address] [place] [address] Performed By: #### 5 8410-2 ####[facility] LABIA [id number] [place] [address] [place] Nucleated RBC (Bld) [#/Vol] 10*3/uL Normal <0.01 [facility] Comment on above: Order Comment: Speci men Type: BLOOD SPECIMENOrdering Facility: [facility] Address: [address] [place] [address] Performed By: #### 5 8410-2 ####[facility] LABIA [id number] [place] [address] [place] Platelet mean volume (Bld) [Entitic vol] 12.8 fL High 9.0-12.7 [facility] Comment on above: Order Comment: Speci men Type: BLOOD SPECIMENOrdering Facility: [facility] Address: [address] [place] [address] Performed By: #### 5 8410-2 ####[facility] LABIA [id number] [place] [address] [place] Platelets (Bld) [#/Vol] 174 10*3/uL Normal 150-400 [facility] Comment on above: Order Comment: Speci men Type: BLOOD SPECIMENOrdering Facility: [facility] Address: [address] [place] [address] Performed By: #### 5 8410-2 ####[facility] LABIA [id number] [place] [address] [place] RBC (Bld) [#/Vol] 4.26 10*6/uL Normal 3.90-5.20 [facility] Comment on above: Order Comment: Speci men Type: BLOOD SPECIMENOrdering Facility: [facility] Address: [address] [place], [place] [address] Performed By: #### 5 8410-2 ####[facility] LABCLIA [id number] [place] [address] [place] WBC (Bld) [#/Vol] 9.14 10*3/uL Normal 3.70-11.00 [facility] Comment on above: Order Comment: Speci men Type: BLOOD SPECIMENOrdering Facility: [facility] Address: [address] [place] [address] Performed By: #### 5 8410-2 ####[facility] LABCLIA [id number] [place] [address] [place] CONSULT PROGon 07-10-2023 CONSULT PROG Normal [facility] MEDICAL EMERon 07-10-2023 MEDICAL ANJEL Normal [facility] Magnesium SerPl-mCncon Magnesium [Mass/Vol] 2.0 mg/dL Normal 1.7-2.3 [facility] Comment on above: Order Comment: Speci men Type: BLOOD SPECIMENOrdering Facility: [facility] Address: [address] [place] [address] Performed By: #### 1 9123-9, 63518-7 ####[facility] LABCLIA [id number] [place] [address] [place] NURSING PROGon 07-10-2023 NURSING PROG Normal [facility] NUTRITIONon 07-10-2023 NUTRITION Normal [facility] Renal function 2000 panelon 07-10-2023 Albumin [Mass/Vol] 4.0 g/dL Normal 3.9-4.9 [facility] Comment on above: Order Comment: Speci men Type: BLOOD SPECIMENOrdering Facility: [facility] Address: [address] [place] [address] Performed By: #### 1 9123-9, 55211-8 ####[facility] LABCLIA [id number] [place] [address] [place] Anion gap [Moles/Vol] 10 mmol/L Normal 9-18 [facility] Comment on above: Order Comment: Speci men Type: BLOOD SPECIMENOrdering Facility: [facility] Address: [address] [place] [address] Performed By: #### 1 9123-9, 06408-7 ####[facility] LABCLIA [id number] [place] [address] [place] Calcium [Mass/Vol] 9.2 mg/dL Normal 8.5-10.2 [facility] Comment on above: Order Comment: Speci men Type: BLOOD SPECIMENOrdering Facility: [facility] Address: [address] [place] [address] Performed By: #### 1 9123-9, 03997-0 ####[facility] LABCLIA [id number] [place] [address] [place] Chloride [Moles/Vol] 106 mmol/L High 97-105 [facility] Comment on above: Order Comment: Speci men Type: BLOOD SPECIMENOrdering Facility: [facility] Address: [address] [place] [address] Performed By: #### 1 9123-9, 86530-6 ####[facility] LABCLIA [id number] [place] [address] [place] CO2 [Moles/Vol] 26 mmol/L Normal 22-30 [facility] Comment on above: Order Comment: Speci men Type: BLOOD SPECIMENOrdering Facility: [facility] Address: [address] [place] [address] Performed By: #### 1 9123-9, 59183-8 ####[facility] LABCLIA [id number] [place] [address] [place] Creatinine [Mass/Vol] 0.98 mg/dL High 0.58-0.96 [facility] Comment on above: Order Comment: Speci men Type: BLOOD SPECIMENOrdering Facility: [facility] Address: [address] [place] [address] Performed By: #### 1 9123-9, 45487-0 ####[facility] LABIA [id number] [place] [address] [place] Creatinine and Glomerular filtration rate.predicted panel (S/P/Bld) 80 mL/min/1.73m??? Normal >=60 [facility] Comment on above: Order Comment: Arnol dawson Type: BLOOD SPECIMENOrdering Facility: [facility] Address: [address] [place] [address] Result Comment: Albina mated Glomerular Filtration Rate (eGFR) is calculated using the 2020 CKD-EPI creatinine equation. This equation utilizes serum creatinine, sex, and age as parameters. The creatinine assay has traceable calibration to isotope dilution-mass spectrometry. Refer to KDIGO guidelines for clinical interpretation. In patients with unstable renal function, e.g. those with acute kidney injury, the eGFR may not accurately reflect actual GFR. Performed By: #### 1 9123-9, 75564-3 ####[facility] LABIA [id number] [place] [id number] [place] Glucose [Mass/Vol] 78 mg/dL Normal 74-99 [facility] Comment on above: Order Comment: Lisajuancarlos dawson Type: BLOOD SPECIMENOrdering Facility: [facility] Address: [address] [place] [address] Result Comment: The [place] Diabetes [employer] (ADA) provides guidance for cutoff values for fasting glucose and random glucose. The ADA defines fasting as no caloric intake for at least 8 hours. Fasting plasma glucose results between 100 to 125 mg/dL indicate increased risk for diabetes (prediabetes).Fasting plasma glucose results greater than or equal to 126 mg/dL meet the criteria for diagnosis of diabetes. In the absence of unequivocal hyperglycemia, results should be confirmed by repeat testing. In a patient with classic symptoms of hyperglycemia or hyperglycemic crisis, random plasma glucose results greater than or equal to 200 mg/dL meet the criteria for diagnosis of diabetes.Reference: Standards of Medical Care in Diabetes 2016, [place] [employer]. Diabetes Care. 2016.39(Suppl 1). Performed By: #### 1 9123-9, 12386-1 ####[facility] LABCLIA [id number] [address] [address] [place] Phosphate [Mass/Vol] 3.9 mg/dL Normal 2.7-4.8 [facility] Comment on above: Order Comment: Speci men Type: BLOOD SPECIMENOrdering Facility: [facility] Address: [address] [place] [address] Performed By: #### 1 9123-9, 12095-3 ####[facility] LABCLIA [id number] [place] [address] [place] Potassium [Moles/Vol] 3.8 mmol/L Normal 3.7-5.1 [facility] Comment on above: Order Comment: Speci men Type: BLOOD SPECIMENOrdering Facility: [facility] Address: [address] [place] [address] Performed By: #### 1 9123-9, 81711-4 ####[facility] LABCLIA [id number] [place] [address] [place] Sodium [Moles/Vol] 142 mmol/L Normal 136-144 [facility] Comment on above: Order Comment: Speci men Type: BLOOD SPECIMENOrdering Facility: [facility] Address: [address] [place] [address] Performed By: #### 1 9123-9, 96291-5 ####[facility] LABCLIA [id number] [address] [address] [place] Urea nitrogen [Mass/Vol] 6 mg/dL Low 7-21 [facility] Comment on above: Order Comment: Speci men Type: BLOOD SPECIMENOrdering Facility: [facility] Address: [address] [place] [address] Performed By: #### 1 9123-9, 22642-6 ####[facility] LABCLIA [id number] [place] [address] [place] XR ABDOMEN 1V SUPINEon XR ABDOMEN 1V SUPINE Normal [facility] XR CHEST 1V FRONTAL PORTon 0 07-10-2023 XR CHEST 1V FRONTAL PORT Normal [facility] Zinc SerPl-mCncon 07-10-2023 Zinc [Mass/Vol] 58 ug/dL Low 60-120 [facility] Comment on above: Order Comment: Speci men Type: BLOOD SPECIMENOrdering Facility: [facility] Address: [address] [place] [address] Result Comment: This test was developed and its performance characteristics determined by [facility]'s [facility] Pathology and Laboratory Medicine [place] ([facility] It has not been cleared or approved by the FDA. [facility] is regulated under CLIA as qualified to perform high-complexity testing. This test is used for clinical purposes. It should not be regarded as investigational or for research. Performed By: #### 5 763-8 ####[facility] [id number] [place] [address] [place] CBC panel Auto (Bld)on 07-09 Erythrocyte distribution width (RBC) [Ratio] 12.1 % Normal 11.5-15.0 [facility] Comment on above: Order Comment: Speci men Type: BLOOD SPECIMENOrdering Facility: [facility] Address: [address] [place] [address] Performed By: #### 5 8410-2 ####[facility] [id number] [place] [address] [place] Hematocrit (Bld) [Volume fraction] 39.0 % Normal 36.0-46.0 [facility] Comment on above: Order Comment: Speci men Type: BLOOD SPECIMENOrdering Facility: [facility] Address: [address] [place] [address] Performed By: #### 5 8410-2 ####[facility] LABIA [id number] [place] [address] [place] Hemoglobin (Bld) [Mass/Vol] 13.5 g/dL Normal 11.5-15.5 [facility] Comment on above: Order Comment: Speci men Type: BLOOD SPECIMENOrdering Facility: [facility] Address: [address] [place] [address] Performed By: #### 5 8410-2 ####[facility] LABIA [id number] [place] [address] [place] MCH (RBC) [Entitic mass] 31.8 pg Normal 26.0-34.0 [facility] Comment on above: Order Comment: Speci men Type: BLOOD SPECIMENOrdering Facility: [facility] Address: [address] [place] [address] Performed By: #### 5 8410-2 ####[facility] LABIA [id number] [place] [address] [place] MCHC (RBC) [Mass/Vol] 34.6 g/dL Normal 30.5-36.0 [facility] Comment on above: Order Comment: Speci men Type: BLOOD SPECIMENOrdering Facility: [facility] Address: [address] [place] [address] Performed By: #### 5 8410-2 ####[facility] LABIA [id number] [place] [address] [place] MCV (RBC) [Entitic vol] 91.8 fL Normal 80.0-100.0 [facility] Comment on above: Order Comment: Speci men Type: BLOOD SPECIMENOrdering Facility: [facility] Address: [address] [place] [address] Performed By: #### 5 8410-2 ####[facility] LABCLIA [id number] [place] [address] [place] Nucleated RBC (Bld) [#/Vol] 10*3/uL Normal <0.01 [facility] Comment on above: Order Comment: Speci men Type: BLOOD SPECIMENOrdering Facility: [facility] Address: [address] [place] [address] Performed By: #### 5 8410-2 ####[facility] LABIA [id number] [place] [address] [place] Platelet mean volume (Bld) [Entitic vol] 12.1 fL Normal 9.0-12.7 [facility] Comment on above: Order Comment: Speci men Type: BLOOD SPECIMENOrdering Facility: [facility] Address: [address] [place] [address] Performed By: #### 5 8410-2 ####[facility] LABIA [id number] [place] [address] [place] Platelets (Bld) [#/Vol] 193 10*3/uL Normal 150-400 [facility] Comment on above: Order Comment: Speci men Type: BLOOD SPECIMENOrdering Facility: [facility] Address: [address] [place] [address] Performed By: #### 5 8410-2 ####[facility] LABIA [id number] [place] [address] [place] RBC (Bld) [#/Vol] 4.25 10*6/uL Normal 3.90-5.20 [facility] Comment on above: Order Comment: Speci men Type: BLOOD SPECIMENOrdering Facility: [facility] Address: [address] [place] [address] Performed By: #### 5 8410-2 ####[facility] LABIA [id number] [place] [address] [place] WBC (Bld) [#/Vol] 9.13 10*3/uL Normal 3.70-11.00 [facility] Comment on above: Order Comment: Speci men Type: BLOOD SPECIMENOrdering Facility: [facility] Address: [address] [place] [id number] Performed By: #### 5 8410-2 ####[facility] LABCLIA [id number] [place] [id number] [place] Magnesium SerPl-mCncon 07-09 Magnesium [Mass/Vol] 2.1 mg/dL Normal 1.7-2.3 [facility] Comment on above: Order Comment: Speci men Type: BLOOD SPECIMENOrdering Facility: [facility] Address: [address] [place] [address] Performed By: #### 2 4362-6, ####[facility] LABIA [id number] [place] [address] [place] NUTRITIONon 07-09-2023 NUTRITION Normal [facility] Renal function 2000 panelon 07-09-2023 Albumin [Mass/Vol] 4.1 g/dL Normal 3.9-4.9 [facility] Comment on above: Order Comment: Speci men Type: BLOOD SPECIMENOrdering Facility: [facility] Address: [address] [place] [address] Performed By: #### 2 4362-6, ####[facility] LABIA [id number] [place] [address] [place] Anion gap [Moles/Vol] 13 mmol/L Normal 9-18 [facility] Comment on above: Order Comment: Speci men Type: BLOOD SPECIMENOrdering Facility: [facility] Address: [address] [place] [address] Performed By: #### 2 4362-6, ####[facility] LABIA [id number] [place] [address] [place] Calcium [Mass/Vol] 9.2 mg/dL Normal 8.5-10.2 [facility] Comment on above: Order Comment: Speci men Type: BLOOD SPECIMENOrdering Facility: [facility] Address: [address] [place] [address] Performed By: #### 2 4362-6, ####[facility] LABCLIA [id number] [place] [id number] [place] Chloride [Moles/Vol] 109 mmol/L High 97-105 [facility] Comment on above: Order Comment: Speci men Type: BLOOD SPECIMENOrdering Facility: [facility] Address: [address] [place] [address] Performed By: #### 2 4362-6, ####[facility] LABCLIA [id number] [place] [address] [place] CO2 [Moles/Vol] 19 mmol/L Low 22-30 [facility] Comment on above: Order Comment: Speci men Type: BLOOD SPECIMENOrdering Facility: [facility] Address: [address] [place] [address] Performed By: #### 2 4362-6, ####[facility] LABIA [id number] [place] [address] [place] Creatinine [Mass/Vol] 0.76 mg/dL Normal 0.58-0.96 [facility] Comment on above: Order Comment: Speci men Type: BLOOD SPECIMENOrdering Facility: [facility] Address: [address] [place] [address] Performed By: #### 2 4362-6, ####[facility] LABIA [id number] [place] [id number] [place] Creatinine and Glomerular filtration rate.predicted panel (S/P/Bld) 108 mL/min/1.73m??? Normal >=60 [facility] Comment on above: Order Comment: Speci men Type: BLOOD SPECIMENOrdering Facility: [facility] Address: [address] [place] [address] Result Comment: Albina mated Glomerular Filtration Rate (eGFR) is calculated using the 2020 CKD-EPI creatinine equation. This equation utilizes serum creatinine, sex, and age as parameters. The creatinine assay has traceable calibration to isotope dilution-mass spectrometry. Refer to KDIGO guidelines for clinical interpretation. In patients with unstable renal function, e.g. those with acute kidney injury, the eGFR may not accurately reflect actual GFR. Performed By: #### 2 4362-6, ####[facility] LABCLIA [id number] [place] [address] [place] Glucose [Mass/Vol] 109 mg/dL High 74-99 [facility] Comment on above: Order Comment: Speci men Type: BLOOD SPECIMENOrdering Facility: [facility] Address: [address] [place] [address] Result Comment: The [place] Diabetes [employer] (ADA) provides guidance for cutoff values for fasting glucose and random glucose. The ADA defines fasting as no caloric intake for at least 8 hours. Fasting plasma glucose results between 100 to 125 mg/dL indicate increased risk for diabetes (prediabetes).Fasting plasma glucose results greater than or equal to 126 mg/dL meet the criteria for diagnosis of diabetes. In the absence of unequivocal hyperglycemia, results should be confirmed by repeat testing. In a patient with classic symptoms of hyperglycemia or hyperglycemic crisis, random plasma glucose results greater than or equal to 200 mg/dL meet the criteria for diagnosis of diabetes.Reference: Standards of Medical Care in Diabetes 2016, [place] [employer]. Diabetes Care. 2016.39(Suppl 1). Performed By: #### 2 4362-6, ####[facility] LABCLIA [id number] [place] [id number] [place] Phosphate [Mass/Vol] 2.8 mg/dL Normal 2.7-4.8 [facility] Comment on above: Order Comment: Lisai men Type: BLOOD SPECIMENOrdering Facility: [facility] Address: [address] [place] [address] Performed By: #### 2 4362-6, ####[facility] LABCLIA [id number] [place] [id number] [place] Potassium [Moles/Vol] 4.4 mmol/L Normal 3.7-5.1 [facility] Comment on above: Order Comment: Speci men Type: BLOOD SPECIMENOrdering Facility: [facility] Address: [address] [place] [address] Performed By: #### 2 4362-6, ####[facility] LABCLIA [id number] [place] [address] [place] Sodium [Moles/Vol] 141 mmol/L Normal 136-144 [facility] Comment on above: Order Comment: Speci men Type: BLOOD SPECIMENOrdering Facility: [facility] Address: [address] [place] [address] Performed By: #### 2 4362-6, ####[facility] LABCLIA [id number] [place] [address] [place] Urea nitrogen [Mass/Vol] 4 mg/dL Low 7-21 [facility] Comment on above: Order Comment: Speci men Type: BLOOD SPECIMENOrdering Facility: [facility] Address: [address] [place] [address] Performed By: #### 2 4362-6, ####[facility] LABCLIA [id number] [place] [id number] [place] URINALYSIS, DIPSTICK ONLYon 07-09-2023 Bilirubin Ql (U) Negative Normal Negative [facility] Comment on above: Order Comment: Speci men Type: URINE SPECIMENOrdering Facility: [facility] Address: [address] [place] [address] Performed By: #### U A ####[facility] LABCLIA [id number] [place] [id number] [place] Clarity (Unsp spec) Clear Normal Clear [facility] Comment on above: Order Comment: Speci men Type: URINE SPECIMENOrdering Facility: [facility] Address: [address] [place] [address] Performed By: #### U A ####[facility] LABCLIA [id number] [place] [address] [place] Color (U) Yellow Normal Yellow [facility] Comment on above: Order Comment: Speci men Type: URINE SPECIMENOrdering Facility: [facility] Address: [address] [place] [address] Performed By: #### U A ####[facility] LABCLIA [id number] [place] [address] [place] Glucose Test strip (U) [Mass/Vol] Negative Normal Negative [facility] Comment on above: Order Comment: Speci men Type: URINE SPECIMENOrdering Facility: [facility] Address: [address] [place] [address] Performed By: #### U A ####[facility] LABCLIA [id number] [place] [address] [place] Hemoglobin Ql (U) Negative Normal Negative [facility] Comment on above: Order Comment: Speci men Type: URINE SPECIMENOrdering Facility: [facility] Address: [address] [place] [address] Performed By: #### U A ####[facility] LABCLIA [id number] [place] [address] [place] Ketones Ql (U) Negative Normal Negative [facility] Comment on above: Order Comment: Speci men Type: URINE SPECIMENOrdering Facility: [facility] Address: [address] [place] [address] Performed By: #### U A ####[facility] LABCLIA [id number] [place] [address] [place] Leukocyte esterase Test strip Ql (U) Negative Normal Negative [facility] Comment on above: Order Comment: Speci men Type: URINE SPECIMENOrdering Facility: [facility] Address: [address] [place] [address] Performed By: #### U A ####[facility] LABCLIA [id number] [place] [address] [place] Nitrite Ql (U) Negative Normal Negative [facility] Comment on above: Order Comment: Speci men Type: URINE SPECIMENOrdering Facility: [facility] Address: [address] [place] [address] Performed By: #### U A ####[facility] LABCLIA [id number] [place] [address] [place] pH (U) 6.0 [pH] Normal <8.5 [facility] Comment on above: Order Comment: Speci men Type: URINE SPECIMENOrdering Facility: [facility] Address: [address] [place] [address] Performed By: #### U A ####[facility] LABIA [id number] [place] [address] [place] Protein (U) [Mass/Vol] Negative Normal Negative [facility] Comment on above: Order Comment: Speci men Type: URINE SPECIMENOrdering Facility: [facility] Address: [address] [place] [address] Performed By: #### U A ####[facility] LABIA [id number] [place] [address] [place] Specific gravity (U) [Rel density] 1.018 Normal 1.005-1.030 [facility] Comment on above: Order Comment: Speci men Type: URINE SPECIMENOrdering Facility: [facility] Address: [address] [place] [address] Performed By: #### U A ####[facility] LABIA [id number] [place] [address] [place] Urobilinogen Ql (U) 1.0 EU/dL Normal 0.2-1.0 EU/dL [facility] Comment on above: Order Comment: Speci men Type: URINE SPECIMENOrdering Facility: [facility] Address: [address] [place] [address] Performed By: #### U A ####[facility] LABIA [id number] [address] [address] [place] US DVT UPPER RTon 07-09-2023 US DVT UPPER RT Normal [facility] ALLIED HEALTHon 07-08-2023 ALLIED HEALTH Normal [facility] ALLIED HEALTH Normal [facility] CONSULT PROGon 07-08-2023 CONSULT PROG Normal [facility] Magnesium SerPl-mCncon 07-08 Magnesium [Mass/Vol] 1.8 mg/dL Normal 1.7-2.3 [facility] Comment on above: Order Comment: Speci men Type: BLOOD SPECIMENOrdering Facility: [facility] Address: [address] [place] [address] Performed By: #### 1 9123-9, 98241-6 ####[facility] LABIA [id number] [place] [id number] [place] Magnesium [Mass/Vol] 1.8 mg/dL Normal 1.7-2.3 [facility] Comment on above: Order Comment: Speci men Type: BLOOD SPECIMENOrdering Facility: [facility] Address: [address] [place] [address] Performed By: #### 1 9123-9, 24441-8 ####[facility] LABIA [id number] [address] [address] [place] NUTRITIONon 07-08-2023 NUTRITION Normal [facility] Renal function 2000 panelon 07-08-2023 Albumin [Mass/Vol] 4.1 g/dL Normal 3.9-4.9 [facility] Comment on above: Order Comment: Speci men Type: BLOOD SPECIMENOrdering Facility: [facility] Address: [address] [place] [address] Performed By: #### 1 9123-9, 56255-7 ####[facility] LABCLIA [id number] [place] [address] [place] Anion gap [Moles/Vol] 12 mmol/L Normal 9-18 [facility] Comment on above: Order Comment: Speci men Type: BLOOD SPECIMENOrdering Facility: [facility] Address: [address] [place] [address] Performed By: #### 1 9123-9, 90242-7 ####[facility] LABCLIA [id number] [place] [address] [place] Calcium [Mass/Vol] 8.9 mg/dL Normal 8.5-10.2 [facility] Comment on above: Order Comment: Speci men Type: BLOOD SPECIMENOrdering Facility: [facility] Address: [address] [place] [address] Performed By: #### 1 9123-9, ####[facility] LABCLIA [id number] [place] [address] [place] Chloride [Moles/Vol] 111 mmol/L High 97-105 [facility] Comment on above: Order Comment: Speci men Type: BLOOD SPECIMENOrdering Facility: [facility] Address: [address] [place] [address] Performed By: #### 1 9123-9, ####[facility] LABCLIA [id number] [place] [address] [place] CO2 [Moles/Vol] 20 mmol/L Low 22-30 [facility] Comment on above: Order Comment: Speci men Type: BLOOD SPECIMENOrdering Facility: [facility] Address: [address] [place] [address] Performed By: #### 1 9123-9, 90207-3 ####[facility] LABCLIA [id number] [place] [address] [place] Creatinine [Mass/Vol] 0.86 mg/dL Normal 0.58-0.96 [facility] Comment on above: Order Comment: Arnol osman Type: BLOOD SPECIMENOrdering Facility: [facility] Address: [address] [place] [address] Performed By: #### 1 9123-9, 21298-4 ####[facility] LABCLIA [id number] [address] [facility] Creatinine and Glomerular filtration rate.predicted panel (S/P/Bld) 93 mL/min/1.73m??? Normal >=60 [facility] Comment on above: Order Comment: Arnol osman Type: BLOOD SPECIMENOrdering Facility: [facility] Address: [address] [place] [address] Result Comment: Albina mated Glomerular Filtration Rate (eGFR) is calculated using the 2020 CKD-EPI creatinine equation. This equation utilizes serum creatinine, sex, and age as parameters. The creatinine assay has traceable calibration to isotope dilution-mass spectrometry. Refer to KDIGO guidelines for clinical interpretation. In patients with unstable renal function, e.g. those with acute kidney injury, the eGFR may not accurately reflect actual GFR. Performed By: #### 1 9123-9, 16051-0 ####[facility] LABCLIA [id number] [place] [address] [place] Glucose [Mass/Vol] 93 mg/dL Normal 74-99 [facility] Comment on above: Order Comment: Arnol osman Type: BLOOD SPECIMENOrdering Facility: [facility] Address: [address] [place] [address] Result Comment: The [place] Diabetes [employer] (ADA) provides guidance for cutoff values for fasting glucose and random glucose. The ADA defines fasting as no caloric intake for at least 8 hours. Fasting plasma glucose results between 100 to 125 mg/dL indicate increased risk for diabetes (prediabetes).Fasting plasma glucose results greater than or equal to 126 mg/dL meet the criteria for diagnosis of diabetes. In the absence of unequivocal hyperglycemia, results should be confirmed by repeat testing. In a patient with classic symptoms of hyperglycemia or hyperglycemic crisis, random plasma glucose results greater than or equal to 200 mg/dL meet the criteria for diagnosis of diabetes.Reference: Standards of Medical Care in Diabetes 2016, [place] [employer]. Diabetes Care. 2016.39(Suppl 1). Performed By: #### 1 9123-9, 87571-3 ####[facility] LABCLIA [id number] [place] [address] [place] Phosphate [Mass/Vol] 2.5 mg/dL Low 2.7-4.8 [facility] Comment on above: Order Comment: Speci men Type: BLOOD SPECIMENOrdering Facility: [facility] Address: [address] [place] [address] Performed By: #### 1 9123-9, ####[facility] LABCLIA [id number] [place] [address] [place] Potassium [Moles/Vol] 3.8 mmol/L Normal 3.7-5.1 [facility] Comment on above: Order Comment: Speci men Type: BLOOD SPECIMENOrdering Facility: [facility] Address: [address] [place] [address] Performed By: #### 1 9123-9, ####[facility] LABIA [id number] [place] [address] [place] Sodium [Moles/Vol] 143 mmol/L Normal 136-144 [facility] Comment on above: Order Comment: Speci men Type: BLOOD SPECIMENOrdering Facility: [facility] Address: [address] [place] [address] Performed By: #### 1 9123-9, ####[facility] LABCLIA [id number] [place] [id number] [place] Urea nitrogen [Mass/Vol] 4 mg/dL Low 7-21 [facility] Comment on above: Order Comment: Speci men Type: BLOOD SPECIMENOrdering Facility: [facility] Address: [address] [place] [address] Performed By: #### 1 9123-9, 37335-3 ####[facility] LABCLIA [id number] [place] [address] [place] Albumin [Mass/Vol] 4.3 g/dL Normal 3.9-4.9 [facility] Comment on above: Order Comment: Speci men Type: BLOOD SPECIMENOrdering Facility: [facility] Address: [address] [place] [address] Performed By: #### 1 9123-9, 01563-6 ####[facility] LABCLIA [id number] [place] [address] [place] Anion gap [Moles/Vol] 9 mmol/L Normal 9-18 [facility] Comment on above: Order Comment: Speci men Type: BLOOD SPECIMENOrdering Facility: [facility] Address: [address] [place] [address] Performed By: #### 1 9123-9, 83377-7 ####[facility] LABCLIA [id number] [place] [address] [place] Calcium [Mass/Vol] 9.0 mg/dL Normal 8.5-10.2 [facility] Comment on above: Order Comment: Speci men Type: BLOOD SPECIMENOrdering Facility: [facility] Address: [address] [place] [address] Performed By: #### 1 9123-9, 61947-2 ####[facility] LABCLIA [id number] [place] [id number] [place] Chloride [Moles/Vol] 111 mmol/L High 97-105 [facility] Comment on above: Order Comment: Speci men Type: BLOOD SPECIMENOrdering Facility: [facility] Address: [address] [place] [address] Performed By: #### 1 9123-9, 62380-8 ####[facility] LABCLIA [id number] [place] [address] [place] CO2 [Moles/Vol] 21 mmol/L Low 22-30 [facility] Comment on above: Order Comment: Speci men Type: BLOOD SPECIMENOrdering Facility: [facility] Address: [address] [place] [address] Performed By: #### 1 9123-9, 82812-4 ####[facility] LABIA [id number] [place] [address] [place] Creatinine [Mass/Vol] 0.79 mg/dL Normal 0.58-0.96 [facility] Comment on above: Order Comment: Speci men Type: BLOOD SPECIMENOrdering Facility: [facility] Address: [address] [place] [address] Performed By: #### 1 9123-9, 11227-4 ####[facility] [id number] [place] [address] [place] Creatinine and Glomerular filtration rate.predicted panel (S/P/Bld) 103 mL/min/1.73m??? Normal >=60 [facility] Comment on above: Order Comment: Arnol osman Type: BLOOD SPECIMENOrdering Facility: [facility] Address: [address] [place] [address] Result Comment: Albina mated Glomerular Filtration Rate (eGFR) is calculated using the 2020 CKD-EPI creatinine equation. This equation utilizes serum creatinine, sex, and age as parameters. The creatinine assay has traceable calibration to isotope dilution-mass spectrometry. Refer to KDIGO guidelines for clinical interpretation. In patients with unstable renal function, e.g. those with acute kidney injury, the eGFR may not accurately reflect actual GFR. Performed By: #### 1 9123-9, 48148-9 ####[facility] LABIA [id number] [place] [address] [place] Glucose [Mass/Vol] 103 mg/dL High 74-99 [facility] Comment on above: Order Comment: Speci dawson Type: BLOOD SPECIMENOrdering Facility: [facility] Address: [address] [place] [address] Result Comment: The [place] Diabetes Association (ADA) provides guidance for cutoff values for fasting glucose and random glucose. The ADA defines fasting as no caloric intake for at least 8 hours. Fasting plasma glucose results between 100 to 125 mg/dL indicate increased risk for diabetes (prediabetes).Fasting plasma glucose results greater than or equal to 126 mg/dL meet the criteria for diagnosis of diabetes. In the absence of unequivocal hyperglycemia, results should be confirmed by repeat testing. In a patient with classic symptoms of hyperglycemia or hyperglycemic crisis, random plasma glucose results greater than or equal to 200 mg/dL meet the criteria for diagnosis of diabetes.Reference: Standards of Medical Care in Diabetes 2016, [place] [employer]. Diabetes Care. 2016.39(Suppl 1). Performed By: #### 1 9123-9, 35415-5 ####[facility] LABCLIA [id number] [place] [address] [place] Phosphate [Mass/Vol] 2.8 mg/dL Normal 2.7-4.8 [facility] Comment on above: Order Comment: Arnol osman Type: BLOOD SPECIMENOrdering Facility: [facility] Address: [address] [place] [address] Performed By: #### 1 9123-9, 62232-5 ####[facility] LABCLIA [id number] [place] [address] [place] Potassium [Moles/Vol] 3.6 mmol/L Low 3.7-5.1 [facility] Comment on above: Order Comment: Arnol osman Type: BLOOD SPECIMENOrdering Facility: [facility] Address: [address] [place], [place] [address] Performed By: #### 1 9123-9, 74126-0 ####[facility] LABCLIA [id number] [place] [id number] [place] Sodium [Moles/Vol] 141 mmol/L Normal 136-144 [facility] Comment on above: Order Comment: Speci men Type: BLOOD SPECIMENOrdering Facility: [facility] Address: [address] [place] [address] Performed By: #### 1 9123-9, 73114-6 ####[facility] LABCLIA [id number] [place] [address] [place] Urea nitrogen [Mass/Vol] 4 mg/dL Low 7-21 [facility] Comment on above: Order Comment: Speci men Type: BLOOD SPECIMENOrdering Facility: [facility] Address: [address] [place] [address] Performed By: #### 1 9123-9, 47313-8 ####[facility] LABIA [id number] [place] [address] [place] URINALYSIS, DIPSTICK ONLYon 07-08-2023 Bilirubin Ql (U) Negative Normal Negative [facility] Comment on above: Order Comment: Speci men Type: URINE SPECIMENOrdering Facility: [facility] Address: [address] [place] [address] Performed By: #### U A ####[facility] LABIA [id number] [place] [address] [place] Clarity (Unsp spec) Clear Normal Clear [facility] Comment on above: Order Comment: Speci men Type: URINE SPECIMENOrdering Facility: [facility] Address: [address] [place] [address] Performed By: #### U A ####[facility] LABIA [id number] [place] [address] [place] Color (U) Yellow Normal Yellow [facility] Comment on above: Order Comment: Speci men Type: URINE SPECIMENOrdering Facility: [facility] Address: [address] [place] [address] Performed By: #### U A ####[facility] LABIA [id number] [place] Glucose Test strip (U) [Mass/Vol] Negative Normal Negative [facility] Comment on above: Order Comment: Speci men Type: URINE SPECIMENOrdering Facility: [facility] Address: [address] [place] [address] Performed By: #### U A ####[facility] LABCLIA [id number] [place] [address] [place] Hemoglobin Ql (U) Negative Normal Negative [facility] Comment on above: Order Comment: Speci men Type: URINE SPECIMENOrdering Facility: [facility] Address: [address] [place] [address] Performed By: #### U A ####[facility] LABCLIA [id number] [place] [address] [place] Ketones Ql (U) Negative Normal Negative [facility] Comment on above: Order Comment: Speci men Type: URINE SPECIMENOrdering Facility: [facility] Address: [address] [place] [address] Performed By: #### U A ####[facility] LABCLIA [id number] [place] [address] [place] Leukocyte esterase Test strip Ql (U) Trace Abnormal Negative [facility] Comment on above: Order Comment: Speci men Type: URINE SPECIMENOrdering Facility: [facility] Address: [address] [place] [address] Performed By: #### U A ####[facility] LABCLIA [id number] [place] [address] [place] Nitrite Ql (U) Negative Normal Negative [facility] Comment on above: Order Comment: Speci men Type: URINE SPECIMENOrdering Facility: [facility] Address: [address] [place] [address] Performed By: #### U A ####[facility] LABCLIA [id number] [place] [address] [place] pH (U) 6.0 [pH] Normal <8.5 [facility] Comment on above: Order Comment: Speci men Type: URINE SPECIMENOrdering Facility: [facility] Address: [address] [place] [address] Performed By: #### U A ####[facility] LABIA [id number] [place] [address] [place] Protein (U) [Mass/Vol] Negative Normal Negative [facility] Comment on above: Order Comment: Speci men Type: URINE SPECIMENOrdering Facility: [facility] Address: [address] [place] [address] Performed By: #### U A ####[facility] LABIA [id number] [place] [address] [place] Specific gravity (U) [Rel density] 1.009 Normal 1.005-1.030 [facility] Comment on above: Order Comment: Speci men Type: URINE SPECIMENOrdering Facility: [facility] Address: [address] [place] [address] Performed By: #### U A ####[facility] LABIA [id number] [place] [address] [place] Urobilinogen Ql (U) 0.2 EU/dL Normal 0.2-1.0 EU/dL [facility] Comment on above: Order Comment: Speci men Type: URINE SPECIMENOrdering Facility: [facility] Address: [address] [place] [address] Performed By: #### U A ####[facility] LABIA [id number] [place] [address] [place] CASE MGT INIT ASSESon 2023 CASE MGT INIT ASSES Normal [facility] CONSULT PROGon 07-07-2023 CONSULT PROG Normal [facility] Magnesium SerPl-mCncon 07-07 Magnesium [Mass/Vol] 1.8 mg/dL Normal 1.7-2.3 [facility] Comment on above: Order Comment: Speci men Type: BLOOD SPECIMENOrdering Facility: [facility] Address: [address] [place] [address] Performed By: #### 2 4362-6, ####[facility] LABCLIA [id number] [facility] [place] [id number] [place] NUTRITIONon 07-07-2023 NUTRITION Normal [facility] Renal function 2000 panelon 07-07-2023 Albumin [Mass/Vol] 4.3 g/dL Normal 3.9-4.9 [facility] Comment on above: Order Comment: Speci men Type: BLOOD SPECIMENOrdering Facility: [facility] Address: [address] [place] [address] Performed By: #### 2 4362-6, ####[facility] LABCLIA [id number] [facility] [place] [id number] [place] Anion gap [Moles/Vol] 14 mmol/L Normal 9-18 [facility] Comment on above: Order Comment: Speci men Type: BLOOD SPECIMENOrdering Facility: [facility] Address: [address] [place] [address] Performed By: #### 2 4362-6, ####[facility] LABCLIA [id number] [facility] [place] [place] [address] [place] Calcium [Mass/Vol] 9.3 mg/dL Normal 8.5-10.2 [facility] Comment on above: Order Comment: Speci men Type: BLOOD SPECIMENOrdering Facility: [facility] Address: [address] [place] [address] Performed By: #### 2 4362-6, ####[facility] LABCLIA [id number] [facility] [place] [id number] [place] Chloride [Moles/Vol] 105 mmol/L Normal 97-105 [facility] Comment on above: Order Comment: Speci men Type: BLOOD SPECIMENOrdering Facility: [facility] Address: [address] [place] [address] Performed By: #### 2 4362-6, ####[facility] LABCLIA [id number] [place] [address] [place] CO2 [Moles/Vol] 19 mmol/L Low 22-30 [facility] Comment on above: Order Comment: Speci men Type: BLOOD SPECIMENOrdering Facility: [facility] Address: [address] [place] [address] Performed By: #### 2 4362-6, ####[facility] LABIA [id number] [place] [address] [place] Creatinine [Mass/Vol] 0.81 mg/dL Normal 0.58-0.96 [facility] Comment on above: Order Comment: Speci men Type: BLOOD SPECIMENOrdering Facility: [facility] Address: [address] [place] [address] Performed By: #### 2 4362-6, ####[facility] LABIA [id number] [place] [address] [place] Creatinine and Glomerular filtration rate.predicted panel (S/P/Bld) 100 mL/min/1.73m??? Normal >=60 [facility] Comment on above: Order Comment: Speci men Type: BLOOD SPECIMENOrdering Facility: [facility] Address: [address] [place] [address] Result Comment: Albina mated Glomerular Filtration Rate (eGFR) is calculated using the 2020 CKD-EPI creatinine equation. This equation utilizes serum creatinine, sex, and age as parameters. The creatinine assay has traceable calibration to isotope dilution-mass spectrometry. Refer to KDIGO guidelines for clinical interpretation. In patients with unstable renal function, e.g. those with acute kidney injury, the eGFR may not accurately reflect actual GFR. Performed By: #### 2 4362-6, ####[facility] LABCLIA [id number] [address] [address] [place] Glucose [Mass/Vol] 88 mg/dL Normal 74-99 [facility] Comment on above: Order Comment: Speci men Type: BLOOD SPECIMENOrdering Facility: [facility] Address: [address] [place] [address] Result Comment: The [place] Diabetes Association (ADA) provides guidance for cutoff values for fasting glucose and random glucose. The ADA defines fasting as no caloric intake for at least 8 hours. Fasting plasma glucose results between 100 to 125 mg/dL indicate increased risk for diabetes (prediabetes).Fasting plasma glucose results greater than or equal to 126 mg/dL meet the criteria for diagnosis of diabetes. In the absence of unequivocal hyperglycemia, results should be confirmed by repeat testing. In a patient with classic symptoms of hyperglycemia or hyperglycemic crisis, random plasma glucose results greater than or equal to 200 mg/dL meet the criteria for diagnosis of diabetes.Reference: Standards of Medical Care in Diabetes 2016, [place] [employer]. Diabetes Care. 2016.39(Suppl 1). Performed By: #### 2 4362-6, ####[facility] LABIA [id number] [place] [address] [place] Phosphate [Mass/Vol] 3.3 mg/dL Normal 2.7-4.8 [facility] Comment on above: Order Comment: Speci men Type: BLOOD SPECIMENOrdering Facility: [facility] Address: [address] [place] [address] Performed By: #### 2 4362-6, ####[facility] LABIA [id number] [place] [id number] [place] Potassium [Moles/Vol] 4.2 mmol/L Normal 3.7-5.1 [facility] Comment on above: Order Comment: Speci men Type: BLOOD SPECIMENOrdering Facility: [facility] Address: [address] [place] [address] Performed By: #### 2 4362-6, ####[facility] LABCLIA [id number] [place] [address] [place] Sodium [Moles/Vol] 138 mmol/L Normal 136-144 [facility] Comment on above: Order Comment: Speci men Type: BLOOD SPECIMENOrdering Facility: [facility] Address: [address] [place] [address] Performed By: #### 2 4362-6, ####[facility] LABIA [id number] [place] [address] [place] Urea nitrogen [Mass/Vol] 8 mg/dL Normal 7-21 [facility] Comment on above: Order Comment: Speci men Type: BLOOD SPECIMENOrdering Facility: [facility] Address: [address] [place] [address] Performed By: #### 2 4362-6, ####[facility] LABIA [id number] [place] [address] [place] URINALYSIS, DIPSTICK ONLYon 07-07-2023 Bilirubin Ql (U) Negative Normal Negative [facility] Comment on above: Order Comment: Speci men Type: URINE SPECIMENOrdering Facility: [facility] Address: [address] [place] [address] Performed By: #### U A ####[facility] LABIA [id number] [place] [address] [place] Clarity (Unsp spec) Clear Normal Clear [facility] Comment on above: Order Comment: Speci men Type: URINE SPECIMENOrdering Facility: [facility] Address: [address] [place] [address] Performed By: #### U A ####[facility] LABIA [id number] [place] [address] [place] Color (U) Yellow Normal Yellow [facility] Comment on above: Order Comment: Speci men Type: URINE SPECIMENOrdering Facility: [facility] Address: [address] [place] [address] Performed By: #### U A ####[facility] LABCLIA [id number] [place] [address] [place] Glucose Test strip (U) [Mass/Vol] Negative Normal Negative [facility] Comment on above: Order Comment: Speci men Type: URINE SPECIMENOrdering Facility: [facility] Address: [address] [place] [address] Performed By: #### U A ####[facility] LABCLIA [id number] [place] [address] [place] Hemoglobin Ql (U) Negative Normal Negative [facility] Comment on above: Order Comment: Speci men Type: URINE SPECIMENOrdering Facility: [facility] Address: [address] [place] [address] Performed By: #### U A ####[facility] LABCLIA [id number] [place] [address] [place] Ketones Ql (U) Negative Normal Negative [facility] Comment on above: Order Comment: Speci men Type: URINE SPECIMENOrdering Facility: [facility] Address: [address] [place] [address] Performed By: #### U A ####[facility] LABCLIA [id number] [place] [address] [place] Leukocyte esterase Test strip Ql (U) Trace Abnormal Negative [facility] Comment on above: Order Comment: Speci men Type: URINE SPECIMENOrdering Facility: [facility] Address: [address] [place] [address] Performed By: #### U A ####[facility] LABCLIA [id number] [place] [address] [place] Nitrite Ql (U) Negative Normal Negative [facility] Comment on above: Order Comment: Speci men Type: URINE SPECIMENOrdering Facility: [facility] Address: [address] [place] [address] Performed By: #### U A ####[facility] LABIA [id number] [place] [address] [place] pH (U) 6.5 [pH] Normal <8.5 [facility] Comment on above: Order Comment: Speci men Type: URINE SPECIMENOrdering Facility: [facility] Address: [address] [place] [address] Performed By: #### U A ####[facility] [id number] [place] [address] [place] Protein (U) [Mass/Vol] Negative Normal Negative [facility] Comment on above: Order Comment: Speci men Type: URINE SPECIMENOrdering Facility: [facility] Address: [address] [place] [address] Performed By: #### U A ####[facility] [id number] [place] [address] [place] Specific gravity (U) [Rel density] 1.005 Normal 1.005-1.030 [facility] Comment on above: Order Comment: Speci men Type: URINE SPECIMENOrdering Facility: [facility] Address: [address] [place] [address] Performed By: #### U A ####[facility] LABIA [id number] [place] [address] [place] Urobilinogen Ql (U) 0.2 EU/dL Normal 0.2-1.0 EU/dL [facility] Comment on above: Order Comment: Speci men Type: URINE SPECIMENOrdering Facility: [facility] Address: [address] [place] [address] Performed By: #### U A ####[facility] LABIA [id number] [address] [address] [place] XR ABDOMEN 1V SUPINEon 07-07 XR ABDOMEN 1V SUPINE Normal [facility] Magnesium SerPl-mCncon 07-06 Magnesium [Mass/Vol] 1.8 mg/dL Normal 1.7-2.3 [facility] Comment on above: Order Comment: Speci men Type: BLOOD SPECIMENOrdering Facility: [facility] Address: [address] [place] [address] Performed By: #### 2 4362-6, ####[facility] LABCLIA [id number] [place] [address] [place] Renal function 2000 panelon 07-06-2023 Albumin [Mass/Vol] 4.1 g/dL Normal 3.9-4.9 [facility] Comment on above: Order Comment: Speci men Type: BLOOD SPECIMENOrdering Facility: [facility] Address: [address] [place] [address] Performed By: #### 2 4362-6, ####[facility] LABCLIA [id number] [place] [address] [place] Anion gap [Moles/Vol] 16 mmol/L Normal 9-18 [facility] Comment on above: Order Comment: Speci men Type: BLOOD SPECIMENOrdering Facility: [facility] Address: [address] [place] [address] Performed By: #### 2 4362-6, ####[facility] LABCLIA [id number] [place] [id number] [place] Calcium [Mass/Vol] 9.1 mg/dL Normal 8.5-10.2 [facility] Comment on above: Order Comment: Speci men Type: BLOOD SPECIMENOrdering Facility: [facility] Address: [address] [place] [address] Performed By: #### 2 4362-6, ####[facility] LABCLIA [id number] [place] [address] [place] Chloride [Moles/Vol] 106 mmol/L High 97-105 [facility] Comment on above: Order Comment: Speci men Type: BLOOD SPECIMENOrdering Facility: [facility] Address: [address] [place] [address] Performed By: #### 2 4362-6, ####[facility] LABIA [id number] [place] [address] [place] CO2 [Moles/Vol] 18 mmol/L Low 22-30 [facility] Comment on above: Order Comment: Speci men Type: BLOOD SPECIMENOrdering Facility: [facility] Address: [address] [place] [address] Performed By: #### 2 4362-6, ####[facility] LABIA [id number] [place] [address] [place] Creatinine [Mass/Vol] 0.85 mg/dL Normal 0.58-0.96 [facility] Comment on above: Order Comment: Speci men Type: BLOOD SPECIMENOrdering Facility: [facility] Address: [address] [place] [address] Performed By: #### 2 4362-6, ####[facility] LABIA [id number] [place] [address] [place] Creatinine and Glomerular filtration rate.predicted panel (S/P/Bld) 95 mL/min/1.73m??? Normal >=60 [facility] Comment on above: Order Comment: Speci men Type: BLOOD SPECIMENOrdering Facility: [facility] Address: [address] [place] [address] Result Comment: Albina mated Glomerular Filtration Rate (eGFR) is calculated using the 2020 CKD-EPI creatinine equation. This equation utilizes serum creatinine, sex, and age as parameters. The creatinine assay has traceable calibration to isotope dilution-mass spectrometry. Refer to KDIGO guidelines for clinical interpretation. In patients with unstable renal function, e.g. those with acute kidney injury, the eGFR may not accurately reflect actual GFR. Performed By: #### 2 4362-6, ####[facility] LABCLIA [id number] [facility] [address] [address] [place] Glucose [Mass/Vol] 74 mg/dL Normal 74-99 [facility] Comment on above: Order Comment: Arnol osman Type: BLOOD SPECIMENOrdering Facility: [facility] Address: [address] [place] [address] Result Comment: The [place] Diabetes [employer] (ADA) provides guidance for cutoff values for fasting glucose and random glucose. The ADA defines fasting as no caloric intake for at least 8 hours. Fasting plasma glucose results between 100 to 125 mg/dL indicate increased risk for diabetes (prediabetes).Fasting plasma glucose results greater than or equal to 126 mg/dL meet the criteria for diagnosis of diabetes. In the absence of unequivocal hyperglycemia, results should be confirmed by repeat testing. In a patient with classic symptoms of hyperglycemia or hyperglycemic crisis, random plasma glucose results greater than or equal to 200 mg/dL meet the criteria for diagnosis of diabetes.Reference: Standards of Medical Care in Diabetes 2016, [place] [employer]. Diabetes Care. 2016.39(Suppl 1). Performed By: #### 2 4362-6, ####[facility] LABCLIA [id number] [facility] [address] [address] [place] Phosphate [Mass/Vol] 3.6 mg/dL Normal 2.7-4.8 [facility] Comment on above: Order Comment: Arnol osman Type: BLOOD SPECIMENOrdering Facility: [facility] Address: [address] [place] [address] Performed By: #### 2 4362-6, ####[facility] LABCLIA [id number] [facility] [address] [address] [place] Potassium [Moles/Vol] 4.1 mmol/L Normal 3.7-5.1 [facility] Comment on above: Order Comment: Speci men Type: BLOOD SPECIMENOrdering Facility: [facility] Address: [address] [place] [address] Performed By: #### 2 4362-6, ####[facility] LABCLIA [id number] [address] [address] [place] Sodium [Moles/Vol] 140 mmol/L Normal 136-144 [facility] Comment on above: Order Comment: Speci men Type: BLOOD SPECIMENOrdering Facility: [facility] Address: [address] [place] [address] Performed By: #### 2 4362-6, ####[facility] LABCLIA [id number] [place] [address] [place] Urea nitrogen [Mass/Vol] 13 mg/dL Normal 7-21 [facility] Comment on above: Order Comment: Speci men Type: BLOOD SPECIMENOrdering Facility: [facility] Address: [address] [place] [address] Performed By: #### 2 4362-6, ####[facility] LABCLIA [id number] [place] [address] [place] URINALYSIS, DIPSTICK ONLYon 07-06-2023 Bilirubin Ql (U) Negative Normal Negative [facility] Comment on above: Order Comment: Speci men Type: URINE SPECIMENOrdering Facility: [facility] Address: [address] [place] [address] Performed By: #### U A ####[facility] LABCLIA [id number] [place] [address] [place] Clarity (Unsp spec) Clear Normal Clear [facility] Comment on above: Order Comment: Speci men Type: URINE SPECIMENOrdering Facility: [facility] Address: [address] [place] [address] Performed By: #### U A ####[facility] LABCLIA [id number] [place] [address] [place] Color (U) Dark Yellow Abnormal Yellow [facility] Comment on above: Order Comment: Speci men Type: URINE SPECIMENOrdering Facility: [facility] Address: [address] [place] [address] Performed By: #### U A ####[facility] LABCLIA [id number] [place] [address] [place] Glucose Test strip (U) [Mass/Vol] Negative Normal Negative [facility] Comment on above: Order Comment: Speci men Type: URINE SPECIMENOrdering Facility: [facility] Address: [address] [place] [address] Performed By: #### U A ####[facility] LABCLIA [id number] [place] [address] [place] Hemoglobin Ql (U) Negative Normal Negative [facility] Comment on above: Order Comment: Speci men Type: URINE SPECIMENOrdering Facility: [facility] Address: [address] [place] [address] Performed By: #### U A ####[facility] LABCLIA [id number] [address] [place] Ketones Ql (U) 4+ Abnormal Negative [facility] Comment on above: Order Comment: Speci men Type: URINE SPECIMENOrdering Facility: [facility] Address: [address] [place] [address] Performed By: #### U A ####[facility] LABCLIA [id number] [address] [place] Leukocyte esterase Test strip Ql (U) Negative Normal Negative [facility] Comment on above: Order Comment: Speci men Type: URINE SPECIMENOrdering Facility: [facility] Address: [address] [place] [address] Performed By: #### U A ####[facility] LABCLIA [id number] [place] [address] [place] Nitrite Ql (U) Negative Normal Negative [facility] Comment on above: Order Comment: Speci men Type: URINE SPECIMENOrdering Facility: [facility] Address: [address] [place] [address] Performed By: #### U A ####[facility] LABIA [id number] [place] [address] [place] pH (U) 5.5 [pH] Normal <8.5 [facility] Comment on above: Order Comment: Speci men Type: URINE SPECIMENOrdering Facility: [facility] Address: [address] [place] [address] Performed By: #### U A ####[facility] [id number] [place] [address] [place] Protein (U) [Mass/Vol] 1+ Abnormal Negative [facility] Comment on above: Order Comment: Speci men Type: URINE SPECIMENOrdering Facility: [facility] Address: [address] [place] [address] Performed By: #### U A ####[facility] [id number] [place] [address] [place] Specific gravity (U) [Rel density] 1.043 High 1.005-1.030 [facility] Comment on above: Order Comment: Speci men Type: URINE SPECIMENOrdering Facility: [facility] Address: [address] [place] [address] Performed By: #### U A ####[facility] [id number] [place] [address] [place] Urobilinogen Ql (U) 1.0 EU/dL Normal 0.2-1.0 EU/dL [facility] Comment on above: Order Comment: Speci men Type: URINE SPECIMENOrdering Facility: [facility] Address: [address] [place] [address] Performed By: #### U A ####[facility] LABCLIA [id number] [place] [address] [place] CBC W Auto Differential pane l (Bld)on 07-05-2023 Basophils (Bld) [#/Vol] 0.07 10*3/uL Normal <0.11 [facility] Comment on above: Order Comment: Speci men Type: BLOOD SPECIMENOrdering Facility: [facility] Address: [address] [place] [address] Performed By: #### 5 7021-8, 7 ####[facility] LABIA [id number] [address] [place] Basophils/100 WBC (Bld) 0.7 % Normal [facility] Comment on above: Order Comment: Speci men Type: BLOOD SPECIMENOrdering Facility: [facility] Address: [address] [place] [address] Performed By: #### 5 7021-8, 7 ####[facility] LABCLIA [id number] [place] [address] [place] Differential cell count method Nom (Bld) Auto Normal [facility] Comment on above: Order Comment: Speci men Type: BLOOD SPECIMENOrdering Facility: [facility] Address: [address] [place] [address] Performed By: #### 5 7021-8, 7 ####[facility] LABCLIA [id number] [place] [address] [place] Eosinophils (Bld) [#/Vol] 0.14 10*3/uL Normal <0.46 [facility] Comment on above: Order Comment: Speci men Type: BLOOD SPECIMENOrdering Facility: [facility] Address: [address] [place] [address] Performed By: #### 5 7021-8, 4536-7 ####[facility] LABCLIA [id number] [place] [address] [place] Eosinophils/100 WBC (Bld) 1.5 % Normal [facility] Comment on above: Order Comment: Speci men Type: BLOOD SPECIMENOrdering Facility: [facility] Address: [address] [place] [address] Performed By: #### 5 7021-8, 4537-7 ####[facility] LABCLIA [id number] [place] [address] [place] Erythrocyte distribution width (RBC) [Ratio] 11.9 % Normal 11.5-15.0 [facility] Comment on above: Order Comment: Speci men Type: BLOOD SPECIMENOrdering Facility: [facility] Address: [address] [place] [address] Performed By: #### 5 7021-8, 4537-7 ####[facility] LABIA [id number] [place] [address] [place] Hematocrit (Bld) [Volume fraction] 42.4 % Normal 36.0-46.0 [facility] Comment on above: Order Comment: Speci men Type: BLOOD SPECIMENOrdering Facility: [facility] Address: [address] [place] [address] Performed By: #### 5 7021-8, 4537-7 ####[facility] LABIA [id number] [place] [address] [place] Hemoglobin (Bld) [Mass/Vol] 14.8 g/dL Normal 11.5-15.5 [facility] Comment on above: Order Comment: Speci men Type: BLOOD SPECIMENOrdering Facility: [facility] Address: [address] [place] [address] Performed By: #### 5 7021-8, 4537-7 ####[facility] LABCLIA [id number] [place] [address] [place] Immature granulocytes (Bld) [#/Vol] 0.03 10*3/uL Normal <0.10 [facility] Comment on above: Order Comment: Speci men Type: BLOOD SPECIMENOrdering Facility: [facility] Address: [address] [place] [address] Performed By: #### 5 7021-8, 4536-7 ####[facility] LABCLIA [id number] [place] [address] [place] Immature granulocytes/100 WBC (Bld) 0.3 % Normal [facility] Comment on above: Order Comment: Speci men Type: BLOOD SPECIMENOrdering Facility: [facility] Address: [address] [place] [address] Performed By: #### 5 7021-8, 4536-7 ####[facility] LABCLIA [id number] [place] [address] [place] Lymphocytes (Bld) [#/Vol] 2.10 10*3/uL Normal 1.00-4.00 [facility] Comment on above: Order Comment: Speci men Type: BLOOD SPECIMENOrdering Facility: [facility] Address: [address] [place] [address] Performed By: #### 5 7021-8, 4536-7 ####[facility] LABCLIA [id number] [place] [address] [place] Lymphocytes/100 WBC (Bld) 22.1 % Normal [facility] Comment on above: Order Comment: Speci men Type: BLOOD SPECIMENOrdering Facility: [facility] Address: [address] [place] [address] Performed By: #### 5 7021-8, 4536-7 ####[facility] LABCLIA [id number] [place] [address] [place] MCH (RBC) [Entitic mass] 31.9 pg Normal 26.0-34.0 [facility] Comment on above: Order Comment: Speci men Type: BLOOD SPECIMENOrdering Facility: [facility] Address: [address] [place] [address] Performed By: #### 5 7021-8, 4537-7 ####[facility] LABCLIA [id number] [place] [address] [place] MCHC (RBC) [Mass/Vol] 34.9 g/dL Normal 30.5-36.0 [facility] Comment on above: Order Comment: Speci men Type: BLOOD SPECIMENOrdering Facility: [facility] Address: [address] [place] [address] Performed By: #### 5 7021-8, 4537-7 ####[facility] LABCLIA [id number] [place] [address] [place] MCV (RBC) [Entitic vol] 91.4 fL Normal 80.0-100.0 [facility] Comment on above: Order Comment: Speci men Type: BLOOD SPECIMENOrdering Facility: [facility] Address: [address] [place] [address] Performed By: #### 5 7021-8, 4537-7 ####[facility] LABCLIA [id number] [place] [address] [place] Monocytes (Bld) [#/Vol] 0.45 10*3/uL Normal <0.87 [facility] Comment on above: Order Comment: Speci men Type: BLOOD SPECIMENOrdering Facility: [facility] Address: [address] [place] [address] Performed By: #### 5 7021-8, 4537-7 ####[facility] LABIA [id number] [place] [address] [place] Monocytes/100 WBC (Bld) 4.7 % Normal [facility] Comment on above: Order Comment: Speci men Type: BLOOD SPECIMENOrdering Facility: [facility] Address: [address] [place] [address] Performed By: #### 5 7021-8, 7-7 ####[facility] LABCLIA [id number] [place] [address] [place] Neutrophils (Bld) [#/Vol] 6.70 10*3/uL Normal 1.45-7.50 [facility] Comment on above: Order Comment: Speci men Type: BLOOD SPECIMENOrdering Facility: [facility] Address: [address] [place] [address] Performed By: #### 5 7021-8, 4536-7 ####[facility] LABCLIA [id number] [place] [address] [place] Neutrophils/100 WBC (Bld) 70.7 % Normal [facility] Comment on above: Order Comment: Speci men Type: BLOOD SPECIMENOrdering Facility: [facility] Address: [address] [place] [address] Performed By: #### 5 7021-8, 4536-7 ####[facility] LABCLIA [id number] [place] [address] [place] Nucleated RBC (Bld) [#/Vol] 10*3/uL Normal <0.01 [facility] Comment on above: Order Comment: Speci men Type: BLOOD SPECIMENOrdering Facility: [facility] Address: [address] [place] [address] Performed By: #### 5 7021-8, 4536-7 ####[facility] LABCLIA [id number] [place] [address] [place] Nucleated RBC/100 WBC (Bld) [Ratio] 0.0 /100 WBC Normal [facility] Comment on above: Order Comment: Speci men Type: BLOOD SPECIMENOrdering Facility: [facility] Address: [address] [place] [address] Performed By: #### 5 7021-8, 4536-7 ####[facility] LABCLIA [id number] [place] [address] [place] Platelet mean volume (Bld) [Entitic vol] 11.7 fL Normal 9.0-12.7 [facility] Comment on above: Order Comment: Speci men Type: BLOOD SPECIMENOrdering Facility: [facility] Address: [address] [place] [address] Performed By: #### 5 7021-8, 4537-7 ####[facility] LABIA [id number] [place] [address] [place] Platelets (Bld) [#/Vol] 214 10*3/uL Normal 150-400 [facility] Comment on above: Order Comment: Speci men Type: BLOOD SPECIMENOrdering Facility: [facility] Address: [address] [place] [address] Performed By: #### 5 7021-8, 4537-7 ####[facility] [id number] [place] [address] [place] RBC (Bld) [#/Vol] 4.64 10*6/uL Normal 3.90-5.20 [facility] Comment on above: Order Comment: Speci men Type: BLOOD SPECIMENOrdering Facility: [facility] Address: [address] [place] [address] Performed By: #### 5 7021-8, 4537-7 ####[facility] LABIA [id number] [place] [address] [place] WBC (Bld) [#/Vol] 9.49 10*3/uL Normal 3.70-11.00 [facility] Comment on above: Order Comment: Speci men Type: BLOOD SPECIMENOrdering Facility: [facility] Address: [address] [place] [address] Performed By: #### 5 7021-8, 4537-7 ####[facility] LABIA [id number] [place] [id number] [place] CONSULTon 07-05-2023 CONSULT Normal [facility] CT ABD/PEL W IVCONon 024 CT ABD/PEL W IVCON Normal [facility] Comprehensive metabolic 2000 panelon 07-05-2023 Albumin [Mass/Vol] 4.4 g/dL Normal 3.9-4.9 [facility] [facility] Comment on above: Order Comment: Speci men Type: BLOOD SPECIMENOrdering Facility: [facility] Address: [address] [place] [address] Performed By: #### 1 9123-9, 3016-3, 61089-7, 2777-1 ####[facility] LABIA [id number] [place] [address] [place] ALP [Catalytic activity/Vol] 43 U/L Normal 34-123 [facility] Comment on above: Order Comment: Speci men Type: BLOOD SPECIMENOrdering Facility: [facility] Address: [address] [place] [address] Performed By: #### 1 9123-9, 3016-3, 09011-0, 2777-1 ####[facility] LABIA [id number] [place] [address] [place] ALT [Catalytic activity/Vol] 10 U/L Normal 7-38 [facility] Comment on above: Order Comment: Speci men Type: BLOOD SPECIMENOrdering Facility: [facility] Address: [address] [place] [address] Performed By: #### 1 9123-9, 3016-3, 22400-1, 2777-1 ####[facility] LABCLIA [id number] [place] [address] [place] Anion gap [Moles/Vol] 10 mmol/L Normal 9-18 [facility] Comment on above: Order Comment: Speci men Type: BLOOD SPECIMENOrdering Facility: [facility] Address: [address] [place] [address] Performed By: #### 1 9123-9, 3016-3, 07114-1, 2777-1 ####[facility] LABCLIA [id number] [place] [address] [place] AST [Catalytic activity/Vol] 11 U/L Low 13-35 [facility] Comment on above: Order Comment: Speci men Type: BLOOD SPECIMENOrdering Facility: [facility] Address: [address] [place] [address] Performed By: #### 1 9123-9, 3016-3, 67104-8, 2777-1 ####[facility] LABIA [id number] [place] [address] [place] Bilirubin [Mass/Vol] 0.8 mg/dL Normal 0.2-1.3 [facility] Comment on above: Order Comment: Speci men Type: BLOOD SPECIMENOrdering Facility: [facility] Address: [address] [place] [address] Performed By: #### 1 9123-9, 3016-3, 41944-0, 2777-1 ####[facility] LABIA [id number] [place] [address] [place] Calcium [Mass/Vol] 9.5 mg/dL Normal 8.5-10.2 [facility] Comment on above: Order Comment: Speci men Type: BLOOD SPECIMENOrdering Facility: [facility] Address: [address] [place] [address] Performed By: #### 1 9123-9, 3016-3, 97662-4, 2777-1 ####[facility] LABIA [id number] [place] [address] [place] Chloride [Moles/Vol] 109 mmol/L High 97-105 [facility] Comment on above: Order Comment: Speci men Type: BLOOD SPECIMENOrdering Facility: [facility] Address: [address] [place] [address] Performed By: #### 1 9123-9, 3016-3, 37802-1, 2776- ####[facility] LABIA [id number] [place] [id number] [place] CO2 [Moles/Vol] 21 mmol/L Low 22-30 [facility] Comment on above: Order Comment: Speci men Type: BLOOD SPECIMENOrdering Facility: [facility] Address: [address] [place] [address] Performed By: #### 1 9123-9, 3016-3, 44801-5, 2776- ####[facility] [id number] [place] [address] [place] Creatinine [Mass/Vol] 0.85 mg/dL Normal 0.58-0.96 [facility] Comment on above: Order Comment: Speci men Type: BLOOD SPECIMENOrdering Facility: [facility] Address: [address] [place] [address] Performed By: #### 1 9123-9, 6-3, 35335-6, 2776- ####[facility] [id number] [place] [address] [place] Creatinine and Glomerular filtration rate.predicted panel (S/P/Bld) 95 mL/min/1.73m??? Normal >=60 [facility] Comment on above: Order Comment: Speci men Type: BLOOD SPECIMENOrdering Facility: [facility] Address: [address] [place] [address] Result Comment: Albina mated Glomerular Filtration Rate (eGFR) is calculated using the 2020 CKD-EPI creatinine equation. This equation utilizes serum creatinine, sex, and age as parameters. The creatinine assay has traceable calibration to isotope dilution-mass spectrometry. Refer to KDIGO guidelines for clinical interpretation. In patients with unstable renal function, e.g. those with acute kidney injury, the eGFR may not accurately reflect actual GFR. Performed By: #### 1 9123-9, 3016-3, 41747-6, 2776-1 ####[facility] LABCLIA [id number] [place] [id number] [place] Glucose [Mass/Vol] 83 mg/dL Normal 74-99 [facility] Comment on above: Order Comment: Speci men Type: BLOOD SPECIMENOrdering Facility: [facility] Address: [address] [place] [address] Result Comment: The [place] Diabetes Association (ADA) provides guidance for cutoff values for fasting glucose and random glucose. The ADA defines fasting as no caloric intake for at least 8 hours. Fasting plasma glucose results between 100 to 125 mg/dL indicate increased risk for diabetes (prediabetes).Fasting plasma glucose results greater than or equal to 126 mg/dL meet the criteria for diagnosis of diabetes. In the absence of unequivocal hyperglycemia, results should be confirmed by repeat testing. In a patient with classic symptoms of hyperglycemia or hyperglycemic crisis, random plasma glucose results greater than or equal to 200 mg/dL meet the criteria for diagnosis of diabetes.Reference: Standards of Medical Care in Diabetes 2016, [place] Diabetes Association. Diabetes Care. 2016.39(Suppl 1). Performed By: #### 1 9123-9, 3016-3, 79900-7, 2777-1 ####[facility] LABCLIA [id number] [place] [address] [place] Potassium [Moles/Vol] 4.4 mmol/L Normal 3.7-5.1 [facility] Comment on above: Order Comment: Speci men Type: BLOOD SPECIMENOrdering Facility: [facility] Address: [address] [place] [address] Performed By: #### 1 9123-9, 3016-3, 81093-1, 2777-1 ####[facility] LABIA [id number] [place] [address] [place] Protein [Mass/Vol] 6.8 g/dL Normal 6.3-8.0 [facility] Comment on above: Order Comment: Speci men Type: BLOOD SPECIMENOrdering Facility: [facility] Address: [address] [place], [place] [address] Performed By: #### 1 9123-9, 3016-3, 94475-5, 2777-1 ####[facility] LABCLIA [id number] [address] [address] [place] Sodium [Moles/Vol] 140 mmol/L Normal 136-144 [facility] Comment on above: Order Comment: Speci men Type: BLOOD SPECIMENOrdering Facility: [facility] Address: [address] [place], [place] [address] Performed By: #### 1 9123-9, 3016-3, 45777-8, 2777-1 ####[facility] LABCLIA [id number] [place] [id number] [place] Urea nitrogen [Mass/Vol] 5 mg/dL Low 7-21 [facility] Comment on above: Order Comment: Speci men Type: BLOOD SPECIMENOrdering Facility: [facility] Address: [address] [place], [place] [address] Performed By: #### 1 9123-9, 3016-3, 35816-1, 2777-1 ####[facility] LABCLIA [id number] [place] [id number] [place] ED NOTEon 07-05-2023 ED NOTE HNO ID: [id number] Author: TIMOTEO POOLE RN Service: Emergency Medicine Author Type: Registered Nurse Type: ED Notes Filed: 07/05/2023 12:20 Note Text: Normal [facility] ED NOTE Normal [facility] ED NOTE HNO ID: [id number] Author: TIMOTEO POOLE RN Service: Emergency Medicine Author Type: Registered Nurse Type: ED Notes Filed: 07/05/2023 12:20 Note Text: Report off to oncoming RN. Normal [facility] ED NOTE HNO ID: [id number] Author: TIMOTEO POOLE RN Service: Emergency Medicine Author Type: Registered Nurse Type: ED Notes Filed: 07/05/2023 10:07 Note Text: Attempted to call report to G-81. Nurse unable to take report. Will call us back. Normal [facility] ED NOTE HNO ID: [id number] Author: HOOD RENEE RN Service: ? Author Type: Registered Nurse Type: ED Notes Filed: 07/05/2023 07:32 Note Text: Report given to Timoteo KERN Normal [facility] ED NOTE Normal [facility] ESR Westergren method (Bld) [Velocity]on 07-05-2023 ESR (Bld) [Velocity] 10 mm/h Normal 0-20 [facility] Comment on above: Order Comment: Speci men Type: BLOOD SPECIMENOrdering Facility: [facility] Address: [address] [place] [address] Performed By: #### 5 7021-8, 4537-7 ####[facility] LABCLIA [id number] [address] [place] HISTORY PHYSICALon HISTORY PHYSICAL Normal [facility] Magnesium SerPl-mCncon 07-05 Magnesium [Mass/Vol] 1.9 mg/dL Normal 1.7-2.3 [facility] Comment on above: Order Comment: Speci men Type: BLOOD SPECIMENOrdering Facility: [facility] Address: [address] [place] [address] Performed By: #### 1 9123-9, 3016-3, 60770-2, 2777-1 ####[facility] LABCLIA [id number] [place] [id number] [place] NURSING PROGon 07-05-2023 NURSING PROG Normal [facility] Phosphate SerPl-mCncon 07-05 Phosphate [Mass/Vol] 2.5 mg/dL Low 2.7-4.8 [facility] Comment on above: Order Comment: Speci men Type: BLOOD SPECIMENOrdering Facility: [facility] Address: [address] [place] [address] Performed By: #### 1 9123-9, 3016-3, 44185-4, 2777-1 ####[facility] LABIA [id number] [place] [address] [place] TOX SCREEN ROUT URon 07-05- 024 Amphetamines Confirm (U) [Mass/Vol] Negative Normal Negative [facility] Comment on above: Order Comment: Speci men Type: URINE SPECIMENOrdering Facility: [facility] Address: [address] [place] [address] Result Comment: Cuto ff threshold at 1000 ng/mL. Performed By: #### U TOX2 ####[facility] LABIA [id number] [place] [address] [place] BARBITURATES, URINE Negative Normal Negative [facility] Comment on above: Order Comment: Speci men Type: URINE SPECIMENOrdering Facility: [facility] Address: [address] [place] [address] Result Comment: Cuto ff threshold at 200 ng/mL. Performed By: #### U TOX2 ####[facility] LABIA [id number] [place] [address] [place] BENZODIAZEPINES, UR Negative Normal Negative [facility] Comment on above: Order Comment: Speci men Type: URINE SPECIMENOrdering Facility: [facility] Address: [address] [place] [address] Result Comment: Cuto ff threshold at 200 ng/mL. Performed By: #### U TOX2 ####[facility] LABCLIA [id number] [place] [address] [place] Cannabinoids Screen Ql (U) Positive Abnormal Negative [facility] Comment on above: Order Comment: Speci men Type: URINE SPECIMENOrdering Facility: [facility] Address: [address] [place] [address] Result Comment: Cuto ff threshold at 50 ng/mL. Performed By: #### U TOX2 ####[facility] LABCLIA [id number] [place] [address] [place] Cocaine Ql (U) Negative Normal Negative [facility] Comment on above: Order Comment: Speci men Type: URINE SPECIMENOrdering Facility: [facility] Address: [address] [place] [address] Result Comment: Cuto ff threshold at 300 ng/mL. Performed By: #### U TOX2 ####[facility] LABCLIA [id number] [place] [address] [place] Ethanol (U) [Mass/Vol] <11 Normal <11 [facility] Comment on above: Order Comment: Speci men Type: URINE SPECIMENOrdering Facility: [facility] Address: [address] [place] [address] Performed By: #### U TOX2 ####[facility] LABIA [id number] [place] [address] [place] Opiates Screen Ql (U) Negative Normal Negative [facility] Comment on above: Order Comment: Speci men Type: URINE SPECIMENOrdering Facility: [facility] Address: [address] [place] [address] Result Comment: Cuto ff threshold at 300 ng/mL. Performed By: #### U TOX2 ####[facility] LABIA [id number] [place] [address] [place] oxyCODONE cutoff Screen (U) [Mass/Vol] Negative Normal Negative [facility] Comment on above: Order Comment: Speci men Type: URINE SPECIMENOrdering Facility: [facility] Address: [address] [place] [address] Result Comment: Cuto ff threshold at 100 ng/mL. Performed By: #### U TOX2 ####[facility] LABCLIA [id number] [place] [address] [place] Phencyclidine Ql (U) Negative Normal Negative [facility] Comment on above: Order Comment: Speci men Type: URINE SPECIMENOrdering Facility: [facility] Address: [address] [place] [address] Result Comment: Cuto ff threshold at 25 ng/mL. Performed By: #### U TOX2 ####[facility] LABCLIA [id number] [place] [address] [place] TSH SerPl-aCncon 07-05-2023 TSH Qn 1.170 m[IU]/L Normal 0.270-4.200 [facility] Comment on above: Order Comment: Speci men Type: BLOOD SPECIMENOrdering Facility: [facility] Address: [address] [place] [address] Result Comment: If t he patient is , TSH reference range varies by gestational period:First Trimester (weeks 9-12): 0.180-2.990 mIU/LSecond Trimester: 0.110-3.980 mIU/LThird Trimester: 0.480-4.710 mIU/Eva Yu et al. A Practical Approach for the Verifications and Determination of Site- and Trimester-Specific Reference Intervals for Thyroid Function tests in . Thyroid, 2019:29:3:412-420. Ismael E, et al. 2017 Guidelines of the [place] Thyroid Association for the Diagnosis and Management of Thyroid Disease during and the . Thyroid, 2017:27:3:315-389. Performed By: #### 1 9123-9, 3016-3, 00498-0, 2777-1 ####[facility] LABCLIA [id number] [place] [id number] [place] URINALYSIS, DIPSTICK ONLYon 07-05-2023 Bilirubin Ql (U) Negative Normal Negative [facility] Comment on above: Order Comment: Speci men Type: URINE SPECIMENOrdering Facility: [facility] Address: [address] [place] [address] Performed By: #### U A ####[facility] LABCLIA [id number] [place] [address] [place] Clarity (Unsp spec) Cloudy Abnormal Clear [facility] Comment on above: Order Comment: Speci men Type: URINE SPECIMENOrdering Facility: [facility] Address: [address] [place] [address] Performed By: #### U A ####[facility] LABCLIA [id number] [place] [address] [place] Color (U) Yellow Normal Yellow [facility] Comment on above: Order Comment: Speci men Type: URINE SPECIMENOrdering Facility: [facility] Address: [address] [place] [address] Performed By: #### U A ####[facility] LABCLIA [id number] [place] [address] [place] Glucose Test strip (U) [Mass/Vol] Negative Normal Negative [facility] Comment on above: Order Comment: Speci men Type: URINE SPECIMENOrdering Facility: [facility] Address: [address] [place] [address] Performed By: #### U A ####[facility] LABCLIA [id number] [place] [address] [place] Hemoglobin Ql (U) Negative Normal Negative [facility] Comment on above: Order Comment: Speci men Type: URINE SPECIMENOrdering Facility: [facility] Address: [address] [place] [address] Performed By: #### U A ####[facility] LABCLIA [id number] [place] [address] [place] Ketones Ql (U) 2+ Abnormal Negative [facility] Comment on above: Order Comment: Speci men Type: URINE SPECIMENOrdering Facility: [facility] Address: [address] [place] [address] Performed By: #### U A ####[facility] LABCLIA [id number] [place] [address] [place] Leukocyte esterase Test strip Ql (U) 1+ Abnormal Negative [facility] Comment on above: Order Comment: Speci men Type: URINE SPECIMENOrdering Facility: [facility] Address: [address] [place] [address] Performed By: #### U A ####[facility] LABCLIA [id number] [place] [address] [place] Nitrite Ql (U) Negative Normal Negative [facility] Comment on above: Order Comment: Speci men Type: URINE SPECIMENOrdering Facility: [facility] Address: [address] [place] [address] Performed By: #### U A ####[facility] LABIA [id number] [place] [address] [place] pH (U) 6.0 [pH] Normal <8.5 [facility] Comment on above: Order Comment: Speci men Type: URINE SPECIMENOrdering Facility: [facility] Address: [address] [place] [address] Performed By: #### U A ####[facility] LABIA [id number] [place] [address] [place] Protein (U) [Mass/Vol] Negative Normal Negative [facility] Comment on above: Order Comment: Speci men Type: URINE SPECIMENOrdering Facility: [facility] Address: [address] [place] [address] Performed By: #### U A ####[facility] LABIA [id number] [place] [address] [place] Specific gravity (U) [Rel density] 1.020 Normal 1.005-1.030 [facility] Comment on above: Order Comment: Speci men Type: URINE SPECIMENOrdering Facility: [facility] Address: [address] [place] [address] Performed By: #### U A ####[facility] LABIA [id number] [place] [address] [place] Urobilinogen Ql (U) 0.2 EU/dL Normal 0.2-1.0 EU/dL [facility] Comment on above: Order Comment: Speci men Type: URINE SPECIMENOrdering Facility: [facility] Address: [address] [place] [address] Performed By: #### U A ####[facility] LABCLIA [id number] [place] [address] [place] CBC W Auto Differential pane l (Bld)on 07-04-2023 Basophils (Bld) [#/Vol] 0.07 10*3/uL Normal <0.11 [facility] Comment on above: Order Comment: Speci men Type: BLOOD SPECIMENOrdering Facility: [facility] Address: [address] [place] [address] Performed By: #### 5 7021-8 ####[facility] LABCLIA [id number] [place] [address] [place] Basophils/100 WBC (Bld) 0.7 % Normal C [facility] Comment on above: Order Comment: Speci men Type: BLOOD SPECIMENOrdering Facility: [facility] Address: [address] [place] [address] Performed By: #### 5 7021-8 ####[facility] LABCLIA [id number] [place] [address] [place] Differential cell count method Nom (Bld) Auto Normal [facility] Comment on above: Order Comment: Speci men Type: BLOOD SPECIMENOrdering Facility: [facility] Address: [address] [place] [address] Performed By: #### 5 7021-8 ####[facility] LABCLIA [id number] [place] [address] [place] Eosinophils (Bld) [#/Vol] 0.11 10*3/uL Normal <0.46 [facility] Comment on above: Order Comment: Speci men Type: BLOOD SPECIMENOrdering Facility: [facility] Address: [address] [place] [address] Performed By: #### 5 7021-8 ####[facility] LABCLIA [id number] [place] [address] [place] Eosinophils/100 WBC (Bld) 1.1 % Normal [facility] Comment on above: Order Comment: Speci men Type: BLOOD SPECIMENOrdering Facility: [facility] Address: [address] [place] [address] Performed By: #### 5 7021-8 ####[facility] LABIA [id number] [place] [address] [place] Erythrocyte distribution width (RBC) [Ratio] 11.9 % Normal 11.5-15.0 [facility] Comment on above: Order Comment: Speci men Type: BLOOD SPECIMENOrdering Facility: [facility] Address: [address] [place] [address] Performed By: #### 5 7021-8 ####[facility] LABIA [id number] [place] [address] [place] Hematocrit (Bld) [Volume fraction] 45.2 % Normal 36.0-46.0 [facility] Comment on above: Order Comment: Speci men Type: BLOOD SPECIMENOrdering Facility: [facility] Address: [address] [place] [address] Performed By: #### 5 7021-8 ####[facility] LABIA [id number] [place] [address] [place] Hemoglobin (Bld) [Mass/Vol] 15.9 g/dL High 11.5-15.5 [facility] Comment on above: Order Comment: Speci men Type: BLOOD SPECIMENOrdering Facility: [facility] Address: [address] [place] [address] Performed By: #### 5 7021-8 ####[facility] LABIA [id number] [place] [address] [place] Immature granulocytes (Bld) [#/Vol] 10*3/uL Normal <0.10 [facility] Comment on above: Order Comment: Speci men Type: BLOOD SPECIMENOrdering Facility: [facility] Address: [address] [place] [address] Performed By: #### 5 7021-8 ####[facility] LABCLIA [id number] [place] [address] [place] Immature granulocytes/100 WBC (Bld) 0.2 % Normal [facility] Comment on above: Order Comment: Speci men Type: BLOOD SPECIMENOrdering Facility: [facility] Address: [address] [place] [address] Performed By: #### 5 7021-8 ####[facility] LABCLIA [id number] [place] [address] [place] Lymphocytes (Bld) [#/Vol] 1.90 10*3/uL Normal 1.00-4.00 [facility] Comment on above: Order Comment: Speci men Type: BLOOD SPECIMENOrdering Facility: [facility] Address: [address] [place] [address] Performed By: #### 5 7021-8 ####[facility] LABCLIA [id number] [place] [address] [place] Lymphocytes/100 WBC (Bld) 18.2 % Normal [facility] Comment on above: Order Comment: Speci men Type: BLOOD SPECIMENOrdering Facility: [facility] Address: [address] [place] [address] Performed By: #### 5 7021-8 ####[facility] LABCLIA [id number] [place] [address] [place] MCH (RBC) [Entitic mass] 31.9 pg Normal 26.0-34.0 [facility] Comment on above: Order Comment: Speci men Type: BLOOD SPECIMENOrdering Facility: [facility] Address: [address] [place] [address] Performed By: #### 5 7021-8 ####[facility] LABCLIA [id number] [place] [address] [place] MCHC (RBC) [Mass/Vol] 35.2 g/dL Normal 30.5-36.0 [facility] Comment on above: Order Comment: Speci men Type: BLOOD SPECIMENOrdering Facility: [facility] Address: [address] [place] [address] Performed By: #### 5 7021-8 ####[facility] LABCLIA [id number] [place] [address] [place] MCV (RBC) [Entitic vol] 90.6 fL Normal 80.0-100.0 [facility] Comment on above: Order Comment: Speci men Type: BLOOD SPECIMENOrdering Facility: [facility] Address: [address] [place] [address] Performed By: #### 5 7021-8 ####[facility] LABIA [id number] [place] [address] [place] Monocytes (Bld) [#/Vol] 0.49 10*3/uL Normal <0.87 [facility] Comment on above: Order Comment: Speci men Type: BLOOD SPECIMENOrdering Facility: [facility] Address: [address] [place] [address] Performed By: #### 5 7021-8 ####[facility] LABCLIA [id number] [place] [address] [place] Monocytes/100 WBC (Bld) 4.7 % Normal [facility] Comment on above: Order Comment: Speci men Type: BLOOD SPECIMENOrdering Facility: [facility] Address: [address] [place] [address] Performed By: #### 5 7021-8 ####[facility] LABCLIA [id number] [place] [address] [place] Neutrophils (Bld) [#/Vol] 7.83 10*3/uL High 1.45-7.50 [facility] Comment on above: Order Comment: Speci men Type: BLOOD SPECIMENOrdering Facility: [facility] Address: [address] [place] [address] Performed By: #### 5 7021-8 ####[facility] LABCLIA [id number] [place] [address] [place] Neutrophils/100 WBC (Bld) 75.1 % Normal [facility] Comment on above: Order Comment: Speci men Type: BLOOD SPECIMENOrdering Facility: [facility] Address: [address] [place] [address] Performed By: #### 5 7021-8 ####[facility] LABCLIA [id number] [place] [address] [place] Nucleated RBC (Bld) [#/Vol] 10*3/uL Normal <0.01 [facility] Comment on above: Order Comment: Speci men Type: BLOOD SPECIMENOrdering Facility: [facility] Address: [address] [place] [address] Performed By: #### 5 7021-8 ####[facility] LABCLIA [id number] [place] [address] [place] Nucleated RBC/100 WBC (Bld) [Ratio] 0.0 /100 WBC Normal [facility] Comment on above: Order Comment: Speci men Type: BLOOD SPECIMENOrdering Facility: [facility] Address: [address] [place] [address] Performed By: #### 5 7021-8 ####[facility] LABCLIA [id number] [place] [address] [place] Platelet mean volume (Bld) [Entitic vol] 11.3 fL Normal 9.0-12.7 [facility] Comment on above: Order Comment: Speci men Type: BLOOD SPECIMENOrdering Facility: [facility] Address: [address] [place] [address] Performed By: #### 5 7021-8 ####[facility] LABIA [id number] [place] [address] [place] Platelets (Bld) [#/Vol] 225 10*3/uL Normal 150-400 [facility] Comment on above: Order Comment: Speci men Type: BLOOD SPECIMENOrdering Facility: [facility] Address: [address] [place] [address] Performed By: #### 5 7021-8 ####[facility] LABIA [id number] [place] [address] [place] RBC (Bld) [#/Vol] 4.99 10*6/uL Normal 3.90-5.20 [facility] Comment on above: Order Comment: Speci men Type: BLOOD SPECIMENOrdering Facility: [facility] Address: [address] [place] [address] Performed By: #### 5 7021-8 ####[facility] LABIA [id number] [place] [address] [place] WBC (Bld) [#/Vol] 10.42 10*3/uL Normal 3.70-11.00 [facility] Comment on above: Order Comment: Speci men Type: BLOOD SPECIMENOrdering Facility: [facility] Address: [address] [place] [address] Performed By: #### 5 7021-8 ####[facility] LABIA [id number] [place] [address] [place] Comprehensive metabolic 2000 panelon 07-04-2023 Albumin [Mass/Vol] 4.9 g/dL Normal 3.9-4.9 [facility] Comment on above: Order Comment: Speci men Type: BLOOD SPECIMENOrdering Facility: [facility] Address: [address] [place] [address] Performed By: #### 1 9123-9, 51029-8, 277- ####[facility] LABCLIA [id number] [place] [address] [place] ALP [Catalytic activity/Vol] 49 U/L Normal 34-123 [facility] Comment on above: Order Comment: Speci men Type: BLOOD SPECIMENOrdering Facility: [facility] Address: [address] [place] [address] Performed By: #### 1 9123-9, 85966-9, 2776- ####[facility] LABCLIA [id number] [place] [address] [place] ALT [Catalytic activity/Vol] 10 U/L Normal 7-38 [facility] Comment on above: Order Comment: Speci men Type: BLOOD SPECIMENOrdering Facility: [facility] Address: [address] [place] [address] Performed By: #### 1 9123-9, 10323-0, 2776- ####[facility] LABIA [id number] [place] [address] [place] Anion gap [Moles/Vol] 11 mmol/L Normal 9-18 [facility] Comment on above: Order Comment: Speci men Type: BLOOD SPECIMENOrdering Facility: [facility] Address: [address] [place] [address] Performed By: #### 1 9123-9, 27358-5, 2776- ####[facility] LABIA [id number] [place] [address] [place] AST [Catalytic activity/Vol] 11 U/L Low 13-35 [facility] Comment on above: Order Comment: Speci men Type: BLOOD SPECIMENOrdering Facility: [facility] Address: [address] [place] [address] Performed By: #### 1 9123-9, 11701-0, 2776- ####[facility] LABCLIA [id number] [address] [address] [place] Bilirubin [Mass/Vol] 0.7 mg/dL Normal 0.2-1.3 [facility] Comment on above: Order Comment: Speci men Type: BLOOD SPECIMENOrdering Facility: [facility] Address: [address] [place] [address] Performed By: #### 1 9123-9, 24141-0, 2776-05 ####[facility] LABCLIA [id number] [place] [id number] [place] Calcium [Mass/Vol] 10.0 mg/dL Normal 8.5-10.2 [facility] Comment on above: Order Comment: Speci men Type: BLOOD SPECIMENOrdering Facility: [facility] Address: [address] [place] [address] Performed By: #### 1 9123-9, 39430-6, 2776-05 ####[facility] LABCLIA [id number] [place] [id number] [place] Chloride [Moles/Vol] 106 mmol/L High 97-105 [facility] Comment on above: Order Comment: Speci men Type: BLOOD SPECIMENOrdering Facility: [facility] Address: [address] [place], [place] [address] Performed By: #### 1 9123-9, 54278-9, 2776-05 ####[facility] LABCLIA [id number] [address] [address] [place] CO2 [Moles/Vol] 22 mmol/L Normal 22-30 [facility] Comment on above: Order Comment: Speci men Type: BLOOD SPECIMENOrdering Facility: [facility] Address: [address] [place], [place] [address] Performed By: #### 1 9123-9, 08296-7, 277- ####[facility] LABCLIA [id number] [place] [address] [place] Creatinine [Mass/Vol] 0.78 mg/dL Normal 0.58-0.96 [facility] Comment on above: Order Comment: Arnol osman Type: BLOOD SPECIMENOrdering Facility: [facility] Address: [address] [place] [address] Performed By: #### 1 9123-9, 15212-1, 2776- ####[facility] LABIA [id number] [place] [address] [place] [facility] Creatinine and Glomerular filtration rate.predicted panel (S/P/Bld) 105 mL/min/1.73m??? Normal >=60 [facility] Comment on above: Order Comment: Arnol osman Type: BLOOD SPECIMENOrdering Facility: [facility] Address: [address] [place] [address] Result Comment: Albina mated Glomerular Filtration Rate (eGFR) is calculated using the 2020 CKD-EPI creatinine equation. This equation utilizes serum creatinine, sex, and age as parameters. The creatinine assay has traceable calibration to isotope dilution-mass spectrometry. Refer to KDIGO guidelines for clinical interpretation. In patients with unstable renal function, e.g. those with acute kidney injury, the eGFR may not accurately reflect actual GFR. Performed By: #### 1 9123-9, 90902-8, 2776-05 ####[facility] LABIA [id number] [place] [address] [place] Glucose [Mass/Vol] 96 mg/dL Normal 74-99 [facility] Comment on above: Order Comment: Arnol osman Type: BLOOD SPECIMENOrdering Facility: [facility] Address: [address] [place] [address] Result Comment: The [place] Diabetes [employer] (ADA) provides guidance for cutoff values for fasting glucose and random glucose. The ADA defines fasting as no caloric intake for at least 8 hours. Fasting plasma glucose results between 100 to 125 mg/dL indicate increased risk for diabetes (prediabetes).Fasting plasma glucose results greater than or equal to 126 mg/dL meet the criteria for diagnosis of diabetes. In the absence of unequivocal hyperglycemia, results should be confirmed by repeat testing. In a patient with classic symptoms of hyperglycemia or hyperglycemic crisis, random plasma glucose results greater than or equal to 200 mg/dL meet the criteria for diagnosis of diabetes.Reference: Standards of Medical Care in Diabetes 2016, [place] [employer]. Diabetes Care. 2016.39(Suppl 1). Performed By: #### 1 9123-9, 39240-7, 2776-05 ####[facility] LABCLIA [id number] [place] [address] [place] Potassium [Moles/Vol] 3.5 mmol/L Low 3.7-5.1 [facility] Comment on above: Order Comment: Speci men Type: BLOOD SPECIMENOrdering Facility: [facility] Address: [address] [place] [address] Performed By: #### 1 9123-9, , 2776-05 ####[facility] LABCLIA [id number] [place] [address] [place] Protein [Mass/Vol] 7.5 g/dL Normal 6.3-8.0 [facility] Comment on above: Order Comment: Speci men Type: BLOOD SPECIMENOrdering Facility: [facility] Address: [address] [place] [address] Performed By: #### 1 9123-9, , 2776-05 ####[facility] LABCLIA [id number] [place] [address] [place] Sodium [Moles/Vol] 139 mmol/L Normal 136-144 [facility] Comment on above: Order Comment: Speci men Type: BLOOD SPECIMENOrdering Facility: [facility] Address: [address] [place] [address] Performed By: #### 1 9123-9, , 2776-05 ####[facility] LABCLIA [id number] [place] [id number] [place] Urea nitrogen [Mass/Vol] 5 mg/dL Low 7-21 [facility] Comment on above: Order Comment: Arnol osman Type: BLOOD SPECIMENOrdering Facility: [facility] Address: [address] [place] [address] Performed By: #### 1 9123-9, 13027-3, 2777-1 ####[facility] LABCLIA [id number] [facility] [address] [place] ED NOTEon 07-04-2023 ED NOTE HNO ID: [id number] Author: SRIKANTH ELLSWORTH CT Service: Emergency Medicine Author Type: Clinical Service Crew Supervisor Type: ED Notes Filed: 07/04/2023 18:22 Note Text: Pt declined updating vs Normal [facility] ED NOTE HNO ID: [id number] Author: SRIKANTH ELLSWORTH CT Service: Emergency Medicine Author Type: Clinical Service Crew Supervisor Type: ED Notes Filed: 07/04/2023 17:12 Note Text: Updating pt vs Normal [facility] ED PROV NOTEon 07-04-2023 ED PROV NOTE Normal [facility] ED Triage Noteon 07-04-2023 ED Triage Note Normal [facility] HCG Preg Ur Qlon 07-04-2023 HCG ( test) Ql (U) Negative Normal Negative [facility] Comment on above: Order Comment: Arnol osman Type: URINE SPECIMENOrdering Facility: [facility] Address: [address] [place] [address] Result Comment: This test is intended to aid in the early detection of . Very dilute urine samples, as indicated by a low specific gravity, may not contain hvac sales representative levels of hCG. This test detects intact hCG only. This test does not reliably detect hCG degradation products, including free-beta subunit and beta-core fragment. Therefore, this test may show reduced reactivity in urine after 8 weeks gestation. A number of conditions other than , including trophoblastic disease and certain non-trophoblastic neoplasms cause elevated levels of hCG. As with any assay employing mouse antibodies, the possibility exists for interference by human anti-mouse antibodies (HAMA) in the specimen. The test provides a presumptive diagnosis for . Performed By: #### 2 106-3 ####[facility] LABIA [id number] [place] [address] [place] Magnesium SerPl-ncon 07-04 Magnesium [Mass/Vol] 1.9 mg/dL Normal 1.7-2.3 [facility] Comment on above: Order Comment: Speci men Type: BLOOD SPECIMENOrdering Facility: [facility] Address: [address] [place] [address] Performed By: #### 1 9123-9, 15629-7, 2777-1 ####[facility] LABIA [id number] [place] [address] [place] Phosphate SerPl-mCncon 07-04 Phosphate [Mass/Vol] 2.5 mg/dL Low 2.7-4.8 [facility] Comment on above: Order Comment: Speci men Type: BLOOD SPECIMENOrdering Facility: [facility] Address: [address] [place] [address] Performed By: #### 1 9123-9, 72681-6, 2777-1 ####[facility] DAYTONIA [id number] [place] [address] [place] Urinalysis complete panel (U )on 07-04-2023 Bacteria LM.HPF (Urine sed) [#/Area] Negative Normal Negative [facility] Comment on above: Order Comment: Speci men Type: URINE SPECIMENOrdering Facility: [facility] Address: [address] [place] [address] Performed By: #### 2 4356-8 ####[facility] LABIA [id number] [place] [address] [place] Bilirubin Ql (U) Negative Normal Negative [facility] Comment on above: Order Comment: Speci men Type: URINE SPECIMENOrdering Facility: [facility] Address: [address] [place] [address] Performed By: #### 2 4356-8 ####[facility] LABCLIA [id number] [place] [address] [place] Clarity (Unsp spec) Clear Normal Clear [facility] Comment on above: Order Comment: Speci men Type: URINE SPECIMENOrdering Facility: [facility] Address: [address] [place] [address] Performed By: #### 2 4356-8 ####[facility] LABCLIA [id number] [place] [address] [place] Color (U) Yellow Normal Yellow [facility] Comment on above: Order Comment: Speci men Type: URINE SPECIMENOrdering Facility: [facility] Address: [address] [place] [address] Performed By: #### 2 4356-8 ####[facility] LABCLIA [id number] [place] [address] [place] Epithelial cells LM.HPF (Urine sed) [#/Area] Few Normal [facility] Comment on above: Order Comment: Speci men Type: URINE SPECIMENOrdering Facility: [facility] Address: [address] [place] [address] Performed By: #### 2 4356-8 ####[facility] LABCLIA [id number] [place] [address] [place] Glucose Test strip (U) [Mass/Vol] Negative Normal Negative [facility] Comment on above: Order Comment: Speci men Type: URINE SPECIMENOrdering Facility: [facility] Address: [address] [place] [address] Performed By: #### 2 4356-8 ####[facility] LABCLIA [id number] [place] [address] [place] Hemoglobin Ql (U) Negative Normal Negative [facility] Comment on above: Order Comment: Speci men Type: URINE SPECIMENOrdering Facility: [facility] Address: [address] [place] [address] Performed By: #### 2 4356-8 ####[facility] LABCLIA [id number] [place] [address] [place] Hyaline casts (Urine sed) [#/Area] 0 /[LPF] Normal 0 /LPF [facility] Comment on above: Order Comment: Speci men Type: URINE SPECIMENOrdering Facility: [facility] Address: [address] [place] [address] Performed By: #### 2 4356-8 ####[facility] LABCLIA [id number] [place] [address] [place] Ketones Ql (U) Trace Abnormal Negative [facility] Comment on above: Order Comment: Speci men Type: URINE SPECIMENOrdering Facility: [facility] Address: [address] [place] [address] Performed By: #### 2 4356-8 ####[facility] LABCLIA [id number] [place] [address] [place] Leukocyte esterase Test strip Ql (U) Negative Normal Negative [facility] Comment on above: Order Comment: Speci men Type: URINE SPECIMENOrdering Facility: [facility] Address: [address] [place] [address] Performed By: #### 2 4356-8 ####[facility] LABCLIA [id number] [place] [address] [place] Nitrite Ql (U) Negative Normal Negative [facility] Comment on above: Order Comment: Speci men Type: URINE SPECIMENOrdering Facility: [facility] Address: [address] [place] [address] Performed By: #### 2 4356-8 ####[facility] LABCLIA [id number] [place] [address] [place] pH (U) 7.5 [pH] Normal <8.5 [facility] Comment on above: Order Comment: Speci men Type: URINE SPECIMENOrdering Facility: [facility] Address: [address] [place] [address] Performed By: #### 2 4356-8 ####[facility] LABCLIA [id number] [place] [address] [place] Protein (U) [Mass/Vol] Negative Normal Negative [facility] Comment on above: Order Comment: Speci men Type: URINE SPECIMENOrdering Facility: [facility] Address: [address] [place] [address] Performed By: #### 2 4356-8 ####[facility] LABIA [id number] [place] [address] [place] RBC LM.HPF (Urine sed) [#/Area] 0-2 /HPF Normal 0-2 /HPF [facility] Comment on above: Order Comment: Speci men Type: URINE SPECIMENOrdering Facility: [facility] Address: [address] [place] [address] Performed By: #### 2 4356-8 ####[facility] LABIA [id number] [place] [address] [place] Specific gravity (U) [Rel density] 1.009 Normal 1.005-1.030 [facility] Comment on above: Order Comment: Speci men Type: URINE SPECIMENOrdering Facility: [facility] Address: [address] [place] [address] Performed By: #### 2 4356-8 ####[facility] LABCLIA [id number] [place] [address] [place] Urobilinogen Ql (U) 0.2 EU/dL Normal 0.2-1.0 EU/dL [facility] Comment on above: Order Comment: Speci men Type: URINE SPECIMENOrdering Facility: [facility] Address: [address] [place] [address] Performed By: #### 2 4356-8 ####[facility] LABCLIA [id number] [place] [address] [place] WBC LM.HPF (Urine sed) [#/Area] 0-5 /HPF Normal 0-5 /HPF [facility] Comment on above: Order Comment: Speci men Type: URINE SPECIMENOrdering Facility: [facility] Address: [address] [place] [address] Performed By: #### 2 4356-8 ####[facility] LABCLIA [id number] [place] [address] [place] Alanine aminotransferase [En zymatic activity/volume] in Serum or PlasmaOrdered By: Anny Marin on 06-02-2023 ALT [Catalytic activity/Vol] 9 U/L 7-52 [facility] Albumin [Mass/volume] in Ser um or Plasma by Bromocresol green (BCG) dye binding methoOrdered By: Anny Marin on 06-02-2023 Albumin BCG dye [Mass/Vol] 4.5 g/dL 3.5-5.7 [facility] Alkaline phosphatase [Enzyma tic activity/volume] in Serum or PlasmaOrdered By: Anny Marin on 06-02-2023 ALP [Catalytic activity/Vol] 45 U/L 34-104 [facility] Aspartate aminotransferase [ Enzymatic activity/volume] in Serum or PlasmaOrdered By: Anny Marin on 06-02-2023 AST [Catalytic activity/Vol] 11 U/L 13-39 [facility] Basophils Auto (Bld) [#/Vol] Ordered By: Anny Marin on 06-02-2023 Basophils (Bld) [#/Vol] 0.1 10*3/uL 0.0-0.2 [facility] Basophils/100 WBC Auto (Bld) Ordered By: Anny Marin on 06-02-2023 Basophils/100 WBC (Bld) 0.7 % . F [facility] Bilirubin.total [Mass/volume ] in Serum or PlasmaOrdered By: Anny Marin on 06-02-2023 Bilirubin [Mass/Vol] 0.6 mg/dL 0.3-1.0 [facility] Calcium [Mass/volume] in Ser um or PlasmaOrdered By: Anny Marin on 06-02-2023 Calcium [Mass/Vol] 9.5 mg/dL 8.6-10.3 [facility] Carbon dioxide, total [Moles /volume] in Serum or PlasmaOrdered By: Anny Marin on 06-02-2023 CO2 [Moles/Vol] 27.1 mmol/L 21.0-31.0 [facility] Chloride [Moles/volume] in S yoav or PlasmaOrdered By: Anny Marin on 06-02-2023 Chloride [Moles/Vol] 107 mmol/L 98-107 [facility] Complete Blood Count Auto Di ffon 06-02-2023 Basophils (Bld) [#/Vol] 0.1 10*3/uL Normal 0.0-0.2 [facility] Comment on above: Order Comment: Reaso n for Exam Anorexia nervosa, binge eating/purging type Result Comment: PERF ORMED BY: [place] [address] PATHOLOGIST CARDIOPULMONARY PHYSICAL THERAPIST LUCIA WEBSTER M.D. Performed By: #### M G, [id number], CBC, PHOS, CMP #### [facility] [address] [place] [address] [place] Basophils/100 WBC (Bld) 0.7 % Normal . F [facility] Comment on above: Order Comment: Reaso n for Exam Anorexia nervosa, binge eating/purging type Performed By: #### M G, [id number], CBC, PHOS, CMP #### [facility] [address] [place], [place] [address] [place] Eosinophils (Bld) [#/Vol] 0.1 10*3/uL Normal 0.0-0.45 [facility] Comment on above: Order Comment: Reaso n for Exam Anorexia nervosa, binge eating/purging type Performed By: #### M G, [id number], CBC, PHOS, CMP #### [facility] [address] [place] [address] [place] Eosinophils/100 WBC (Bld) 1.0 % Normal . [facility] Comment on above: Order Comment: Reaso n for Exam Anorexia nervosa, binge eating/purging type Performed By: #### M G, [id number], CBC, PHOS, CMP #### [address] Erythrocyte distribution width (RBC) [Ratio] 13.0 % Normal 11.9-15.3 [facility] Comment on above: Order Comment: Reaso n for Exam Anorexia nervosa, binge eating/purging type Performed By: #### M G, [id number], CBC, PHOS, CMP #### [address] Hematocrit (Bld) [Volume fraction] 46.0 % Normal 34.0-46.4 [facility] Comment on above: Order Comment: Reaso n for Exam Anorexia nervosa, binge eating/purging type Performed By: #### M G, [id number], CBC, PHOS, CMP #### [address] Hemoglobin (Bld) [Mass/Vol] 15.7 g/dL High 11.8-15.4 [facility] Comment on above: Order Comment: Reaso n for Exam Anorexia nervosa, binge eating/purging type Performed By: #### M G, [id number], CBC, PHOS, CMP #### [address] Lymphocytes (Bld) [#/Vol] 1.2 10*3/uL Normal 1.00-4.8 [facility] Comment on above: Order Comment: Reaso n for Exam Anorexia nervosa, binge eating/purging type Performed By: #### M G, [id number], CBC, PHOS, CMP #### [place] [address] [place] Lymphocytes/100 WBC (Bld) 14.9 % Normal . [facility] Comment on above: Order Comment: Reaso n for Exam Anorexia nervosa, binge eating/purging type Performed By: #### M G, [id number], CBC, PHOS, CMP #### [facility] [address] MCH (RBC) [Entitic mass] 32.5 pg Normal 24.7-34.3 [facility] Comment on above: Order Comment: Reaso n for Exam Anorexia nervosa, binge eating/purging type Performed By: #### M G, [id number], CBC, PHOS, CMP #### [facility] [address] [place] [address] MCV (RBC) [Entitic vol] 95.5 fL Normal 80-[address] [facility] Comment on above: Order Comment: Reaso n for Exam Anorexia nervosa, binge eating/purging type Performed By: #### M G, [id number], CBC, PHOS, CMP #### [address] Mean Corpuscular HGB Conc 34.0 g/dL Normal 32.0-35.0 [facility] Comment on above: Order Comment: Reaso n for Exam Anorexia nervosa, binge eating/purging type Performed By: #### M G, [id number], CBC, PHOS, CMP #### [facility] [address] [place] [address] [place] Monocytes (Bld) [#/Vol] 0.3 10*3/uL Normal 0.0-0.8 [facility] Comment on above: Order Comment: Reaso n for Exam Anorexia nervosa, binge eating/purging type Performed By: #### M G, [id number], CBC, PHOS, CMP #### [facility] [address] [place] [address] Monocytes/100 WBC (Bld) 3.3 % Normal . F [facility] Comment on above: Order Comment: Reaso n for Exam Anorexia nervosa, binge eating/purging type Performed By: #### M G, [id number], CBC, PHOS, CMP #### [facility] [address] [place] [address] [place] Neutrophils (Bld) [#/Vol] 6.5 10*3/uL Normal 1.8-7.7 [facility] Comment on above: Order Comment: Reaso n for Exam Anorexia nervosa, binge eating/purging type Performed By: #### M G, [id number], CBC, PHOS, CMP #### [address] Neutrophils/100 WBC (Bld) 80.1 % Normal . [facility] Comment on above: Order Comment: Reaso n for Exam Anorexia nervosa, binge eating/purging type Performed By: #### M G, [id number], CBC, PHOS, CMP #### [address] NRBC% 0.1 /100{WBC} Normal 0-0.5 [facility] Comment on above: Order Comment: Reaso n for Exam Anorexia nervosa, binge eating/purging type Performed By: #### M G, [id number], CBC, PHOS, CMP #### [address] Platelet mean volume (Bld) [Entitic vol] 10.4 fL Normal 6.3-10.7 [facility] Comment on above: Order Comment: Reaso n for Exam Anorexia nervosa, binge eating/purging type Performed By: #### M G, [id number], CBC, PHOS, CMP #### [place] [address] [place] Platelets (Bld) [#/Vol] 229 10*3/uL Normal 150-450 [facility] Comment on above: Order Comment: Reaso n for Exam Anorexia nervosa, binge eating/purging type Performed By: #### M G, [id number], CBC, PHOS, CMP #### [place] [address] [place] RBC (Bld) [#/Vol] 4.82 10*6/uL Normal 3.60-5.00 [facility] Comment on above: Order Comment: Reaso n for Exam Anorexia nervosa, binge eating/purging type Performed By: #### M G, [id number], CBC, PHOS, CMP #### [place] [id number] [place] WBC (Bld) [#/Vol] 8.2 10*3/uL Normal 3.8-11.6 [facility] Comment on above: Order Comment: Reaso n for Exam Anorexia nervosa, binge eating/purging type Performed By: #### M G, [id number], CBC, PHOS, CMP #### [facility] [address] Comprehensive Metabolic Pane ozzie 06-02-2023 Albumin [Mass/Vol] 4.5 g/dL Normal 3.5-5.7 [facility] Comment on above: Order Comment: Reaso n for Exam Anorexia nervosa, binge eating/purging type Performed By: #### M G, [id number], CBC, PHOS, CMP #### [address] Albumin/Globulin [Mass ratio] 2.0 {ratio} Normal [facility] Comment on above: Order Comment: Reaso n for Exam Anorexia nervosa, binge eating/purging type Performed By: #### M G, [id number], CBC, PHOS, CMP #### [facility] [address] [place] [address] ALP [Catalytic activity/Vol] 45 U/L Normal 34-104 [facility] Comment on above: Order Comment: Reaso n for Exam Anorexia nervosa, binge eating/purging type Performed By: #### M G, [id number], CBC, PHOS, CMP #### [facility] [address] [place] [address] ALT [Catalytic activity/Vol] 9 U/L Normal 7-52 [facility] Comment on above: Order Comment: Reaso n for Exam Anorexia nervosa, binge eating/purging type Performed By: #### M G, [id number], CBC, PHOS, CMP #### [facility] [address] [place] [address] Anion gap [Moles/Vol] 10.1 mmol/L Normal 6.0-15.0 [facility] Comment on above: Order Comment: Reaso n for Exam Anorexia nervosa, binge eating/purging type Performed By: #### M G, [id number], CBC, PHOS, CMP #### [facility] [address] [place] [address] AST [Catalytic activity/Vol] 11 U/L Low 13-39 [facility] Comment on above: Order Comment: Reaso n for Exam Anorexia nervosa, binge eating/purging type Performed By: #### M G, [id number], CBC, PHOS, CMP #### [facility] [address] [place] [address] Bilirubin [Mass/Vol] 0.6 mg/dL Normal 0.3-1.0 [facility] Comment on above: Order Comment: Reaso n for Exam Anorexia nervosa, binge eating/purging type Performed By: #### M G, [id number], CBC, PHOS, CMP #### [address] Calcium [Mass/Vol] 9.5 mg/dL Normal 8.6-10.3 [facility] Comment on above: Order Comment: Reaso n for Exam Anorexia nervosa, binge eating/purging type Performed By: #### M G, [id number], CBC, PHOS, CMP #### [facility] [address] [place] [address] Chloride [Moles/Vol] 107 mmol/L Normal 98-107 [facility] Comment on above: Order Comment: Reaso n for Exam Anorexia nervosa, binge eating/purging type Performed By: #### M G, [id number], CBC, PHOS, CMP #### [address] CO2 [Moles/Vol] 27.1 mmol/L Normal 21.0-31.0 [facility] Comment on above: Order Comment: Reaso n for Exam Anorexia nervosa, binge eating/purging type Performed By: #### M G, [id number], CBC, PHOS, CMP #### [facility] [address] [place] [address] Creatinine [Mass/Vol] 0.80 mg/dL Normal 0.60-1.[address] [facility] Comment on above: Order Comment: Reaso n for Exam Anorexia nervosa, binge eating/purging type Performed By: #### M G, [id number], CBC, PHOS, CMP #### [facility] [address] [place] [address] [place] GFR/1.73 sq M.predicted MDRD (S/P/Bld) [Vol rate/Area] mL/min/{1.73_m2} Normal [facility] Comment on above: Order Comment: Reaso n for Exam Anorexia nervosa, binge eating/purging type Performed By: #### M G, [id number], CBC, PHOS, CMP #### [facility] [address] Globulin (S) [Mass/Vol] 2.3 g/dL Normal [facility] Comment on above: Order Comment: Reaso n for Exam Anorexia nervosa, binge eating/purging type Performed By: #### M G, [id number], CBC, PHOS, CMP #### [address] Glucose [Mass/Vol] 91 mg/dL Normal 70-100 [facility] Comment on above: Order Comment: Reaso n for Exam Anorexia nervosa, binge eating/purging type Result Comment: [facility] Glucose Reference Range is dependent on time and content of last meal. Glucose of more than 200 mg/dL in a nonstressed, ambulatory subject supports the diagnosis of Diabetes Mellitus. ADA recommended reference range Performed By: #### M G, [id number], CBC, PHOS, CMP #### [facility] [address] [place] [address] Potassium [Moles/Vol] 4.2 mmol/L Normal 3.5-5.[address] [facility] Comment on above: Order Comment: Reaso n for Exam Anorexia nervosa, binge eating/purging type Performed By: #### M G, [id number], CBC, PHOS, CMP #### [facility] [address] [place] [address] [place] Protein [Mass/Vol] 6.8 g/dL Normal 6.4-8.9 [facility] Comment on above: Order Comment: Reaso n for Exam Anorexia nervosa, binge eating/purging type Performed By: #### M G, [id number], CBC, PHOS, CMP #### [facility] [address] [place] [address] [place] Sodium [Moles/Vol] 140 mmol/L Normal 136-145 [facility] Comment on above: Order Comment: Reaso n for Exam Anorexia nervosa, binge eating/purging type Performed By: #### M G, [id number], CBC, PHOS, CMP #### [facility] [address] [place] [address] [place] Urea nitrogen [Mass/Vol] 7 mg/dL Normal 7-25 [facility] Comment on above: Order Comment: Reaso n for Exam Anorexia nervosa, binge eating/purging type Performed By: #### M G, [id number], CBC, PHOS, CMP #### [facility] [address] Creatinine [Mass/volume] in Serum or PlasmaOrdered By: Anny Marin on 06-02-2023 Creatinine [Mass/Vol] 0.80 mg/dL 0.60-1.[address] [facility] ECG 12 lead ECGon 06-02-2023 ECG 12 lead ECG [facility] [place] [address] [place] [address] Electrocardiograph Report Signed Patient: Roshan Domínguez MR#: [id number] : 1990 Acct:[id number] Age/Sex: 32 / F ADM Date: 06/02/23 Loc: [place] Room: Type: [facility] Attending Dr: Tamra Rosen MD Ordering Provider: Anny Marin DO, RES Date of Service: 06/02/23 ECG/ECG 12 lead ECG: Anorexia nervosa, binge eating/purging type Copies to: Test Reason : Blood Pressure : / mmHG Vent. Rate : 067 BPM Atrial Rate : 067 BPM P-R Int : 120 ms QRS Dur : 092 ms QT Int : 368 ms P-R-T Axes : 060 059 060 degrees QTc Int : 388 ms Normal sinus rhythm Normal ECG When compared with ECG of 21-MAR-2023 07:54, Vent. rate has decreased BY 33 BPM Non-specific change in ST segment in Inferior leads Confirmed by JODI AMES MD ([id number]) on 06/02/2023 12:18:40 PM Referred By: Electronically Signed By:JODI AMES MD Transcribed By: MUS Signed By Jodi Ames MD 0 06/02/23 1218 Normal [facility] Eosinophils Auto (Bld) [#/Vo l]Ordered By: Anny Marin on 06-02-2023 Eosinophils (Bld) [#/Vol] 0.1 10*3/uL 0.0-0.45 [facility] Eosinophils/100 WBC Auto (Bl d)Ordered By: Anny Marin on 06-02-2023 Eosinophils/100 WBC (Bld) 1.0 % . [facility] Erythrocyte distribution wid th Auto (RBC) [Ratio]Ordered By: Anny Marin on 06-02-2023 Erythrocyte distribution width (RBC) [Ratio] 13.0 % 11.9-15.3 [facility] Folate [Mass/volume] in Seru m or PlasmaOrdered By: Anny Marin on 06-02-2023 Folate [Mass/Vol] 11.2 ng/mL >5.9 [facility] Comment on above: Folate reference ran ge: >5.9 ng/mlThe WHO technical consultation on folate and vitamin [id number] has determined that folate concentrations lessthan 4 ng/ml are considered deficient. Globulin Calc (S) [Mass/Vol] Ordered By: Anny Marin on 06-02-2023 Globulin (S) [Mass/Vol] 2.3 g/dL [facility] Glucose [Mass/volume] in Ser um or PlasmaOrdered By: Anny Marin on 06-02-2023 Glucose [Mass/Vol] 91 mg/dL 70-100 [facility] Comment on above: ADA recommended refe rence rangeRandom Glucose Reference Range is dependent on time and content of last meal. Glucose of more than 200 mg/dL in a nonstressed, ambulatory subject supports the diagnosis of Diabetes Mellitus. Hematocrit Auto (Bld) [Volum e fraction]Ordered By: Anny Marin on 06-02-2023 Hematocrit (Bld) [Volume fraction] 46.0 % 34.0-46.4 [facility] Hemoglobin [Mass/volume] in BloodOrdered By: Anny Tomas on 06-02-2023 Hemoglobin (Bld) [Mass/Vol] 15.7 g/dL 11.8-15.4 [facility] Leukocytes [#/volume] correc kitty for nucleated erythrocytes in Blood by Automated counOrdered By: Annyvinayak Marin on 06-02-2023 WBC corrected for nucl RBC Auto (Bld) [#/Vol] 8.2 10*3/uL 3.8-11.6 [facility] Lymphocytes Auto (Bld) [#/Vo l]Ordered By: Anny Tomas on 06-02-2023 Lymphocytes (Bld) [#/Vol] 1.2 10*3/uL 1.00-4.8 [facility] Lymphocytes/100 WBC Auto (Bl d)Ordered By: Anny Marin on 06-02-2023 Lymphocytes/100 WBC (Bld) 14.9 % . [facility] MCH Auto (RBC) [Entitic mass ]Ordered By: Anny Marin on 06-02-2023 MCH (RBC) [Entitic mass] 32.5 pg 24.7-34.3 [facility] MCHC Auto (RBC) [Mass/Vol]Or dered By: Anny Marin on 06-02-2023 MCHC (RBC) [Mass/Vol] 34.0 g/dL 32.0-35.[address] [facility] MCV Auto (RBC) [Entitic vol] Ordered By: Anny Marin on 06-02-2023 MCV (RBC) [Entitic vol] 95.5 fL 80-[address] [facility] Magnesiumon 06-02-2023 Magnesium [Mass/Vol] 1.6 mg/dL Low 1.9-2.7 [facility] Comment on above: Order Comment: Reaso n for Exam Anorexia nervosa, binge eating/purging type Performed By: #### M G, [id number], CBC, PHOS, CMP #### [facility] [address] Magnesium [Mass/volume] in S yoav or PlasmaOrdered By: Anny Tomas on 06-02-2023 Magnesium [Mass/Vol] 1.6 mg/dL 1.9-2.7 [facility] Monocytes Auto (Bld) [#/Vol] Ordered By: Anny Valenteaustyn on 06-02-2023 Monocytes (Bld) [#/Vol] 0.3 10*3/uL 0.0-0.8 [facility] Monocytes/100 WBC Auto (Bld) Ordered By: Anny Tomas on 06-02-2023 Monocytes/100 WBC (Bld) 3.3 % . F [facility] Neutrophils Auto (Bld) [#/Vo l]Ordered By: Annyvinayak Valenteaustyn on 06-02-2023 Neutrophils (Bld) [#/Vol] 6.5 10*3/uL 1.8-7.7 [facility] Neutrophils/100 WBC Auto (Bl d)Ordered By: Anny Tomas on 06-02-2023 Neutrophils/100 WBC (Bld) 80.1 % . [facility] No Panel InformationOrdered By: Anny Valenteaustyn on 06-02-2023 Estimated GFR (CKD-EPI) > 60.0 mL/Min [facility] Creatinine Clearance (Chem N/A [facility] Nucleated erythrocytes [Pres ence] in Blood by Automated countOrdered By: Annyvinayak Marin on 06-02-2023 Nucleated RBC Auto Ql (Bld) 0.1 /100{WBC} 0-0.5 [facility] Phosphate [Mass/volume] in S yoav or PlasmaOrdered By: Anny Marin on 06-02-2023 Phosphate [Mass/Vol] 2.8 mg/dL 2.5-4.5 [facility] Phosphoruson 06-02-2023 Phosphate [Mass/Vol] 2.8 mg/dL Normal 2.5-4.5 [facility] Comment on above: Order Comment: Reaso n for Exam Anorexia nervosa, binge eating/purging type Performed By: #### M G, [id number], CBC, PHOS, CMP #### [facility] [address] Platelet mean volume Auto (B ld) [Entitic vol]Ordered By: Anny Marin on 06-02-2023 Platelet mean volume (Bld) [Entitic vol] 10.4 fL 6.3-10.7 [facility] Platelets Auto (Bld) [#/Vol] Ordered By: Anny Marin on 06-02-2023 Platelets (Bld) [#/Vol] 229 10*3/uL 150-450 [facility] Potassium [Moles/volume] in Serum or PlasmaOrdered By: Anny Marin on 06-02-2023 Potassium [Moles/Vol] 4.2 mmol/L 3.5-5.[address] [facility] Protein [Mass/volume] in Ser um or PlasmaOrdered By: Anny Marin on 06-02-2023 Protein [Mass/Vol] 6.8 g/dL 6.4-8.9 [facility] RBC Auto (Bld) [#/Vol]Ordere d By: Anny Marin on 06-02-2023 RBC (Bld) [#/Vol] 4.82 10*6/uL 3.60-5.00 [facility] Serum or plasma albumin/glob ulin mass ratioOrdered By: Anny Marin on 06-02-2023 Albumin/Globulin [Mass ratio] 2.0 {ratio} [facility] Serum or plasma anion gap de terminationOrdered By: Anny Marin on 06-02-2023 Anion gap [Moles/Vol] 10.1 mmol/L 6.0-15.0 [facility] Sodium [Moles/volume] in Ser um or PlasmaOrdered By: Anny Marin on 06-02-2023 Sodium [Moles/Vol] 140 mmol/L 136-145 [facility] Urea nitrogen [Mass/volume] in Serum or PlasmaOrdered By: Anny Marin on 06-02-2023 Urea nitrogen [Mass/Vol] 7 mg/dL 7-25 [facility] Vit. B12/Folate Profileon Cobalamin (Vitamin B12) [Mass/Vol] 155 pg/mL Low 180-914 [facility] Comment on above: Order Comment: Reaso n for Exam Anorexia nervosa, binge eating/purging type Performed By: #### M G, [id number], CBC, PHOS, CMP #### [facility] [address] Folate 11.2 ng/mL Normal >5.9 [facility] Comment on above: Order Comment: Reaso n for Exam Anorexia nervosa, binge eating/purging type Result Comment: [facility] reference range: >5.9 ng/ml The WHO technical consultation on folate and vitamin b12 deficiencies has determined that folate concentrations less than 4 ng/ml are considered deficient. PERFORMED BY: [place] [address] PATHOLOGIST CARDIOPULMONARY PHYSICAL THERAPIST LUCIA WEBSTER M.D. Performed By: #### M G, [id number], CBC, PHOS, CMP #### [address] Vitamin B12 ser/plasOrdered By: Anny Marin on 06-02-2023 Cobalamin (Vitamin B12) [Mass/Vol] 155 pg/mL 180-914 [facility] WBC Auto (Bld) [#/Vol]Ordere d By: Anny Marin on 06-02-2023 WBC (Bld) [#/Vol] 8.2 10*3/uL 3.8-11.6 [facility] Prealbuminon 03-25-2023 Prealbumin [Mass/Vol] 24.0 mg/dL Normal 17.0-34.[address] [facility] Comment on above: Order Comment: Reaso n for Exam Anorexia nervosa Result Comment: PERF ORMED BY: [place] [address] PATHOLOGIST CARDIOPULMONARY PHYSICAL THERAPIST LUCIA WEBSTER M.D. Performed By: #### P AB #### [place] [id number] [facility] Prealbumin [Mass/volume] in Serum or PlasmaOrdered By: Anny Marin on 03-25-2023 Prealbumin [Mass/Vol] 24.0 mg/dL 17.0-34.[address] [facility] Alanine aminotransferase [En zymatic activity/volume] in Serum or PlasmaOrdered By: Estuardo Hardin on 03-21-2023 ALT [Catalytic activity/Vol] 14 U/L 7-52 [facility] Albumin [Mass/volume] in Ser um or Plasma by Bromocresol green (BCG) dye binding methoOrdered By: Estuardo Hardin on 03-21-2023 Albumin BCG dye [Mass/Vol] 5.3 g/dL 3.5-5.7 [facility] Alkaline phosphatase [Enzyma tic activity/volume] in Serum or PlasmaOrdered By: Estuardo Hardin on 03-21-2023 ALP [Catalytic activity/Vol] 48 U/L 34-104 [facility] Aspartate aminotransferase [ Enzymatic activity/volume] in Serum or PlasmaOrdered By: Estuardo Hardin on 03-21-2023 AST [Catalytic activity/Vol] 16 U/L 13-39 [facility] Automated erythrocytes count in urine sediment (number/area)Ordered By: Estuardo Hardin on 03-21-2023 RBC Auto (Urine sed) [#/Area] 0-1 [HPF] 0-4 [facility] Automated leukocytes count i n urine sediment (number/area)Ordered By: Estuardo Hardin on 03-21-2023 WBC Auto (Urine sed) [#/Area] 5-9 [HPF] 0-4 [facility] Basic Metabolic Panelon 03-12 Anion gap [Moles/Vol] 19.3 mmol/L High 6.0-15.0 [facility] Comment on above: Performed By: #### M G, [id number], CBC, PHOS, CMP #### [facility] [address] [place] [address] [place] Calcium [Mass/Vol] 10.5 mg/dL High 8.6-10.3 [facility] Comment on above: Performed By: #### M G, [id number], CBC, PHOS, CMP #### [facility] [address] [place] [address] [place] Chloride [Moles/Vol] 100 mmol/L Normal 98-107 [facility] Comment on above: Performed By: #### M G, [id number], CBC, PHOS, CMP #### [facility] [address] [place] [address] [place] CO2 [Moles/Vol] 25.7 mmol/L Normal 21.0-31.0 [facility] Comment on above: Performed By: #### M G, [id number], CBC, PHOS, CMP #### [facility] [address] Creatinine [Mass/Vol] 1.00 mg/dL Normal 0.60-1.[address] [facility] Comment on above: Performed By: #### M G, [id number], CBC, PHOS, CMP #### [facility] [address] [place] [address] [place] Creatinine Clr Calc Pharmacy 70.61 [facility] Comment on above: Performed By: #### M G, [id number], CBC, PHOS, CMP #### [facility] [address] [place] [address] [place] GFR/1.73 sq M.predicted MDRD (S/P/Bld) [Vol rate/Area] mL/min/{1.73_m2} [facility] Comment on above: Performed By: #### M G, [id number], CBC, PHOS, CMP #### [facility] [address] [place] [address] [place] Glucose [Mass/Vol] 104 mg/dL High 70-100 [facility] Comment on above: Result Comment: [facility] Glucose Reference Range is dependent on time and content of last meal. Glucose of more than 200 mg/dL in a nonstressed, ambulatory subject supports the diagnosis of Diabetes Mellitus. ADA recommended reference range Performed By: #### M G, [id number], CBC, PHOS, CMP #### [facility] [address] Potassium [Moles/Vol] 3.0 mmol/L Low 3.5-5.[address] [facility] Comment on above: Performed By: #### M G, [id number], CBC, PHOS, CMP #### [facility] [address] Sodium [Moles/Vol] 142 mmol/L Normal 136-145 [facility] Comment on above: Performed By: #### M G, [id number], CBC, PHOS, CMP #### [facility] [address] Urea nitrogen [Mass/Vol] 8 mg/dL Normal 7-25 [facility] Comment on above: Performed By: #### M G, [id number], CBC, PHOS, CMP #### [facility] [address] Basophils Auto (Bld) [#/Vol] Ordered By: Estuardo Hardin on 03-21-2023 Basophils (Bld) [#/Vol] 0.1 10*3/uL 0.0-0.2 [facility] Basophils/100 WBC Auto (Bld) Ordered By: Estuardo Hardin on 03-21-2023 Basophils/100 WBC (Bld) 0.6 % . F [facility] Bilirubin Test strip Ql (U)O rdered By: Estuardo Hardin on 03-21-2023 Bilirubin Ql (U) Negative Negative [facility] Bilirubin.direct [Mass/volum e] in Serum or PlasmaOrdered By: Estuardo Hardin on 03-21-2023 Bilirubin.direct [Mass/Vol] 0.20 mg/dL 0.03-0.18 [facility] Bilirubin.total [Mass/volume ] in Serum or PlasmaOrdered By: Estuardo Hardin on 03-21-2023 Bilirubin [Mass/Vol] 1.2 mg/dL 0.3-1.0 [facility] Calcium [Mass/volume] in Ser um or PlasmaOrdered By: Estuardo Hardin on 03-21-2023 Calcium [Mass/Vol] 10.5 mg/dL 8.6-10.3 [facility] Carbon dioxide, total [Moles /volume] in Serum or PlasmaOrdered By: Estuardo Hardin on 03-21-2023 CO2 [Moles/Vol] 25.7 mmol/L 21.0-31.0 [facility] Chloride [Moles/volume] in S yoav or PlasmaOrdered By: Estuardo Hardin on 03-21-2023 Chloride [Moles/Vol] 100 mmol/L 98-107 [facility] Color Auto (U)Ordered By: Tono Hardin on 03-21-2023 Color (U) Dark yellow Yellow [facility] Complete Blood Count Auto Di ffon 03-21-2023 Basophils (Bld) [#/Vol] 0.1 10*3/uL Normal 0.0-0.2 [facility] Comment on above: Result Comment: PERF ORMED BY: [place] [address] PATHOLOGIST CARDIOPULMONARY PHYSICAL THERAPIST LUCIA WEBSTER M.D. Performed By: #### M G, [id number], CBC, PHOS, CMP #### [address] Basophils/100 WBC (Bld) 0.6 % Normal . F [facility] Comment on above: Performed By: #### M G, [id number], CBC, PHOS, CMP #### [address] Eosinophils (Bld) [#/Vol] 0.1 10*3/uL Normal 0.0-0.45 [facility] Comment on above: Performed By: #### M G, [id number], CBC, PHOS, CMP #### [address] Eosinophils/100 WBC (Bld) 0.6 % Normal . [facility] Comment on above: Performed By: #### M G, [id number], CBC, PHOS, CMP #### [address] Erythrocyte distribution width (RBC) [Ratio] 13.7 % Normal 11.9-15.3 [facility] Comment on above: Performed By: #### M G, [id number], CBC, PHOS, CMP #### [address] Hematocrit (Bld) [Volume fraction] 48.4 % High 34.0-46.4 [facility] Comment on above: Performed By: #### M G, [id number], CBC, PHOS, CMP #### [address] Hemoglobin (Bld) [Mass/Vol] 16.5 g/dL High 11.8-15.4 [facility] Comment on above: Performed By: #### M G, [id number], CBC, PHOS, CMP #### [address] Lymphocytes (Bld) [#/Vol] 1.3 10*3/uL Normal 1.00-4.8 [facility] Comment on above: Performed By: #### M G, [id number], CBC, PHOS, CMP #### [address] Lymphocytes/100 WBC (Bld) 12.6 % Normal . [facility] Comment on above: Performed By: #### M G, [id number], CBC, PHOS, CMP #### [address] MCH (RBC) [Entitic mass] 31.2 pg Normal 24.7-34.3 [facility] Comment on above: Performed By: #### M G, [id number], CBC, PHOS, CMP #### [address] MCV (RBC) [Entitic vol] 91.8 fL Normal 80-[address] [facility] Comment on above: Performed By: #### M G, [id number], CBC, PHOS, CMP #### [address] Mean Corpuscular HGB Conc 34.0 g/dL Normal 32.0-35.0 [facility] Comment on above: Performed By: #### M G, [id number], CBC, PHOS, CMP #### [facility] [address] [place] [address] [place] Monocytes (Bld) [#/Vol] 0.3 10*3/uL Normal 0.0-0.8 [facility] Comment on above: Performed By: #### M G, [id number], CBC, PHOS, CMP #### [facility] [address] [place] [address] [place] Monocytes/100 WBC (Bld) 17.09 % Normal 0.00-20.[address] [facility] Comment on above: Performed By: #### M G, [id number], CBC, PHOS, CMP #### [facility] [address] [place] [address] Monocytes/100 WBC (Bld) 2.9 % Normal . [facility] Comment on above: Performed By: #### M G, [id number], CBC, PHOS, CMP #### [facility] [address] [place] [address] Neutrophils (Bld) [#/Vol] 8.5 10*3/uL High 1.8-7.7 [facility] Comment on above: Performed By: #### M G, [id number], CBC, PHOS, CMP #### [address] Neutrophils/100 WBC (Bld) 83.3 % Normal . [facility] Comment on above: Performed By: #### M G, [id number], CBC, PHOS, CMP #### [facility] [address] [place] [address] [place] NRBC% 0.1 /100{WBC} Normal 0-0.5 [facility] Comment on above: Performed By: #### M G, [id number], CBC, PHOS, CMP #### [facility] [address] [place] [address] Platelet mean volume (Bld) [Entitic vol] 9.5 fL Normal 6.3-10.7 [facility] Comment on above: Performed By: #### M G, [id number], CBC, PHOS, CMP #### [facility] [address] Platelets (Bld) [#/Vol] 330 10*3/uL Normal 150-450 [facility] Comment on above: Performed By: #### M G, [id number], CBC, PHOS, CMP #### [facility] [address] [place] [address] RBC (Bld) [#/Vol] 5.28 10*6/uL High 3.60-5.00 [facility] Comment on above: Performed By: #### M G, [id number], CBC, PHOS, CMP #### [address] WBC (Bld) [#/Vol] 10.2 10*3/uL Normal 3.8-11.6 [facility] Comment on above: Performed By: #### M G, [id number], CBC, PHOS, CMP #### [address] Creatine Kinaseon 03-21-2023 CK [Catalytic activity/Vol] 81 U/L Normal 30-223 [facility] Comment on above: Performed By: #### M G, [id number], CBC, PHOS, CMP #### [address] Creatine kinase [Enzymatic a ctivity/volume] in Serum or PlasmaOrdered By: Estuardo Hardin on 03-21-2023 CK [Catalytic activity/Vol] 81 U/L 30-223 [facility] Creatinine [Mass/volume] in Serum or PlasmaOrdered By: Estuardo Hardin on 03-21-2023 Creatinine [Mass/Vol] 1.00 mg/dL 0.60-1.[address] [facility] Dipstick and Microscopicon 1 05-21-2022 Appearance (U) Cloudy Critically abnormal Clear [facility] Comment on above: Order Comment: Name Collection Type:: Clean-Voided Midstream Performed By: #### A DDONUAPLUS, CUU, UHCG #### [facility] [address] [place] [address] [place] Bacteria,Urine None Seen Normal None Seen [facility] Comment on above: Order Comment: Name Collection Type:: Clean-Voided Midstream Performed By: #### A DDONUAPLUS, CUU, UHCG #### [facility] [address] [place] [address] [place] Bilirubin,Urine Negative Normal Negative [facility] Comment on above: Order Comment: Name Collection Type:: Clean-Voided Midstream Performed By: #### A DDONUAPLUS, CUU, UHCG #### [facility] [address] [place] [address] [place] Color (U) Dark Yellow Critically abnormal Yellow [facility] Comment on above: Order Comment: Name Collection Type:: Clean-Voided Midstream Performed By: #### A DDONUAPLUS, CUU, UHCG #### [facility] [address] [place] [address] [place] Glucose Ql (U) Normal Normal Normal [facility] Comment on above: Order Comment: Name Collection Type:: Clean-Voided Midstream Performed By: #### A DDONUAPLUS, CUU, UHCG #### [facility] [address] [place] [address] [place] Hyaline Casts,Urine 9-19 High 0-8 [facility] Comment on above: Order Comment: Name Collection Type:: Clean-Voided Midstream Performed By: #### A DDONUAPLUS, CUU, UHCG #### [facility] [address] [place] [address] [place] Ketones Ql (U) 3+ High Negative [facility] Comment on above: Order Comment: Name Collection Type:: Clean-Voided Midstream Performed By: #### A DDONUAPLUS, CUU, UHCG #### [facility] [address] [place] [address] [place] Leukocyte esterase Test strip Ql (U) 1+ High Negative [facility] Comment on above: Order Comment: Name Collection Type:: Clean-Voided Midstream Performed By: #### A DDONUAPLUS, CUU, UHCG #### [place] [address] [place] Nitrite,Urine Negative Normal Negative [facility] Comment on above: Order Comment: Name Collection Type:: Clean-Voided Midstream Performed By: #### A DDONUAPLUS, CUU, UHCG #### [place] [address] [place] Occult Blood,Urine Negative Normal Negative [facility] Comment on above: Order Comment: Name Collection Type:: Clean-Voided Midstream Performed By: #### A DDONUAPLUS, CUU, UHCG #### [address] pH (U) 6.5 [pH] Normal 5.0-9.0 [facility] Comment on above: Order Comment: Name Collection Type:: Clean-Voided Midstream Performed By: #### A DDONUAPLUS, CUU, UHCG #### [address] Protein (U) [Mass/Vol] 100 mg/dL High Negative [facility] Comment on above: Order Comment: Name Collection Type:: Clean-Voided Midstream Performed By: #### A DDONUAPLUS, CUU, UHCG #### [place] [address] [place] RBC LM.HPF (Urine sed) [#/Area] 0 /[HPF] Normal 0-4 [facility] Comment on above: Order Comment: Name Collection Type:: Clean-Voided Midstream Performed By: #### A DDONUAPLUS, CUU, UHCG #### [place] [address] [place] Specificy [place],Urine 1.026 Normal 1.001-1.030 [facility] Comment on above: Order Comment: Name Collection Type:: Clean-Voided Midstream Performed By: #### A DDONUAPLUS, CUU, UHCG #### [place] [id number] [place] Squamous Epithelial Cell,Urine 10-19 High 0-2 [facility] Comment on above: Order Comment: Name Collection Type:: Clean-Voided Midstream Performed By: #### A DDONUAPLUS, CUU, UHCG #### [facility] [address] Urobilinogen,Urine Normal Normal Normal [facility] Comment on above: Order Comment: Name Collection Type:: Clean-Voided Midstream Performed By: #### A DDONUAPLUS, CUU, UHCG #### [facility] [address] [place] [address] [facility] WBC,Urine 5-9 High 0-4 [facility] Comment on above: Order Comment: Name Collection Type:: Clean-Voided Midstream Performed By: #### A DDONUAPLUS, CUU, UHCG #### [address] ECG 12 lead ECGon 03-21-2023 ECG 12 lead ECG [facility] [place] [address] [place] [address] Electrocardiograph Report Signed Patient: Roshan Domínguez MR#: [id number] : 1990 Acct:[id number] Age/Sex: 32 / F ADM Date: 03/21/23 Loc: ER Room: Type: [facility] ER Attending Dr: Ordering Provider: Estuardo Hardin DO Date of Service: 03/21/2303/03/802 ECG/ECG 12 lead ECG: Chest Pain Copies to: Test Reason : Blood Pressure : / mmHG Vent. Rate : 100 BPM Atrial Rate : 100 BPM P-R Int : 132 ms QRS Dur : 086 ms QT Int : 338 ms P-R-T Axes : 064 066 048 degrees QTc Int : 436 ms Normal sinus rhythm Nonspecific ST abnormality Abnormal ECG When compared with ECG of 22-JAN-2023 20:49, Vent. rate has increased BY 35 BPM Confirmed by Estuardo Hardin DO ([id number]) on 03/21/2023 2:46:22 PM Referred By: Electronically Signed By:Estuardo Hardin DO Transcribed By: SANDY Signed By Estuardo Hardin DO 3 1446 Normal [facility] Eosinophils Auto (Bld) [#/Vo l]Ordered By: Estuardo Hardin on 03-21-2023 Eosinophils (Bld) [#/Vol] 0.1 10*3/uL 0.0-0.45 [facility] Eosinophils/100 WBC Auto (Bl d)Ordered By: Estuardo Hardin on 03-21-2023 Eosinophils/100 WBC (Bld) 0.6 % . [facility] Erythrocyte distribution wid th Auto (RBC) [Ratio]Ordered By: Estuardo Hardin on 03-21-2023 Erythrocyte distribution width (RBC) [Ratio] 13.7 % 11.9-15.3 [facility] Globulin Calc (S) [Mass/Vol] Ordered By: Estuardo Hardin on 03-21-2023 Globulin (S) [Mass/Vol] 3.0 g/dL F [facility] Glucose [Mass/volume] in Ser um or PlasmaOrdered By: Estuardo Hardin on 03-21-2023 Glucose [Mass/Vol] 104 mg/dL 70-100 [facility] Comment on above: ADA recommended refe rence rangeRandom Glucose Reference Range is dependent on time and content of last meal. Glucose of more than 200 mg/dL in a nonstressed, ambulatory subject supports the diagnosis of Diabetes Mellitus. HCG ( test) IA.rapi d Ql (U)Ordered By: Estuardo Hardin on 03-21-2023 HCG ( test) Ql (U) Negative [facility] HCG,Urineon 03-21-2023 Beta HCG ( test) Ql (U) Negative Normal [facility] Comment on above: Order Comment: Name Collection Type:: Clean-Voided Midstream Result Comment: PERF ORMED BY: [place] [address] PATHOLOGIST CARDIOPULMONARY PHYSICAL THERAPIST LUCIA WEBSTER M.D. Performed By: #### A DDMARIXAUAISABELLA, CUU, UHCG #### [address] Hematocrit Auto (Bld) [Volum e fraction]Ordered By: Estuardo Hardin on 03-21-2023 Hematocrit (Bld) [Volume fraction] 48.4 % 34.0-46.4 [facility] Hemoglobin [Mass/volume] in BloodOrdered By: Estuardo Hardin on 03-21-2023 Hemoglobin (Bld) [Mass/Vol] 16.5 g/dL 11.8-15.4 [facility] Hepatic Panelon 03-21-2023 Albumin [Mass/Vol] 5.3 g/dL Normal 3.5-5.7 [facility] Comment on above: Performed By: #### M G, [id number], CBC, PHOS, CMP #### [address] Albumin/Globulin [Mass ratio] 1.8 {ratio} Normal [facility] Comment on above: Performed By: #### M G, [id number], CBC, PHOS, CMP #### [address] ALP [Catalytic activity/Vol] 48 U/L Normal 34-104 [facility] Comment on above: Performed By: #### M G, [id number], CBC, PHOS, CMP #### [address] ALT [Catalytic activity/Vol] 14 U/L Normal 7-52 [facility] Comment on above: Performed By: #### M G, [id number], CBC, PHOS, CMP #### [facility] [address] [place] [address] AST [Catalytic activity/Vol] 16 U/L Normal 13-39 [facility] Comment on above: Performed By: #### M G, [id number], CBC, PHOS, CMP #### [address] Bilirubin [Mass/Vol] 1.2 mg/dL High 0.3-1.0 [facility] Comment on above: Performed By: #### M G, [id number], CBC, PHOS, CMP #### [address] [place] [address] [place] Bilirubin,Indirect 1.0 mg/dL Normal [facility] Comment on above: Performed By: #### M G, [id number], CBC, PHOS, CMP #### [facility] [address] Bilirubin.indirect [Mass/Vol] 0.20 mg/dL High 0.03-0.18 [facility] Comment on above: Performed By: #### M G, [id number], CBC, PHOS, CMP #### [facility] [address] Globulin (S) [Mass/Vol] 3.0 g/dL Normal F [facility] Comment on above: Performed By: #### M G, [id number], CBC, PHOS, CMP #### [facility] [address] Protein [Mass/Vol] 8.3 g/dL Normal 6.4-8.9 [facility] Comment on above: Performed By: #### M G, [id number], CBC, PHOS, CMP #### [facility] [address] Ketones Auto test strip (U) [Mass/Vol]Ordered By: Estuardo Hardin on 03-21-2023 Ketones (U) [Mass/Vol] 3+ Negative [facility] - UrinalysisOrder ed By: Estuardo Hardin on 03-21-2023 Hyaline casts LM Ql (Urine sed) 9-19 [LPF] 0-8 [facility] Leukocytes [#/volume] correc kitty for nucleated erythrocytes in Blood by Automated counOrdered By: Estuardo Hardin on 03-21-2023 WBC corrected for nucl RBC Auto (Bld) [#/Vol] 10.2 10*3/uL 3.8-11.6 [facility] Lymphocytes Auto (Bld) [#/Vo l]Ordered By: Estuardo Hardin on 03-21-2023 Lymphocytes (Bld) [#/Vol] 1.3 10*3/uL 1.00-4.8 [facility] Lymphocytes/100 WBC Auto (Bl d)Ordered By: Estuardo Hardin on 03-21-2023 Lymphocytes/100 WBC (Bld) 12.6 % . [facility] MCH Auto (RBC) [Entitic mass ]Ordered By: Estuardo Hardin on 03-21-2023 MCH (RBC) [Entitic mass] 31.2 pg 24.7-34.3 [facility] MCHC Auto (RBC) [Mass/Vol]Or dered By: Estuardo Hardin on 03-21-2023 MCHC (RBC) [Mass/Vol] 34.0 g/dL 32.0-35.0 Fir [facility] MCV Auto (RBC) [Entitic vol] Ordered By: Estuardo Hardin on 03-21-2023 MCV (RBC) [Entitic vol] 91.8 fL 80-[address] [facility] Magnesiumon 03-21-2023 Magnesium [Mass/Vol] 1.9 mg/dL Normal 1.9-2.7 [facility] Comment on above: Result Comment: PERF ORMED BY: [place] [address] PATHOLOGIST CARDIOPULMONARY PHYSICAL THERAPIST LUCIA WEBSTER M.D. Performed By: #### M G, [id number], CBC, PHOS, CMP #### [address] Magnesium [Mass/volume] in S yoav or PlasmaOrdered By: Estuardo Hardin on 03-21-2023 Magnesium [Mass/Vol] 1.9 mg/dL 1.9-2.7 [facility] Monocyte distribution width [Entitic volume] in Blood by AutomatedOrdered By: Estuardo Hardin on 03-21-2023 Monocyte distribution width Auto (Bld) [Entitic vol] 17.09 % 0.00-20.00 [facility] Monocytes Auto (Bld) [#/Vol] Ordered By: Estuardo Hardin on 03-21-2023 Monocytes (Bld) [#/Vol] 0.3 10*3/uL 0.0-0.8 [facility] Monocytes/100 WBC Auto (Bld) Ordered By: Estuardo Hardin on 03-21-2023 Monocytes/100 WBC (Bld) 2.9 % . F [facility] Neutrophils Auto (Bld) [#/Vo l]Ordered By: Estuardo Hardin on 03-21-2023 Neutrophils (Bld) [#/Vol] 8.5 10*3/uL 1.8-7.7 [facility] Neutrophils/100 WBC Auto (Bl d)Ordered By: Estuardo Hardin on 03-21-2023 Neutrophils/100 WBC (Bld) 83.3 % . [facility] Nitrite Test strip Ql (U)Ord ered By: Estuardo Hardin on 03-21-2023 Nitrite Ql (U) Negative Negative [facility] No Panel InformationOrdered By: Estuardo Hardin on 03-21-2023 Estimated GFR (CKD-EPI) > 60.0 mL/Min [facility] Creatinine Clearance (Chem 70.61 [facility] Nucleated erythrocytes [Pres ence] in Blood by Automated countOrdered By: Estuardo Hardin on 03-21-2023 Nucleated RBC Auto Ql (Bld) 0.1 /100{WBC} 0-0.5 [facility] Platelet mean volume Auto (B ld) [Entitic vol]Ordered By: Estuardo Hardin on 03-21-2023 Platelet mean volume (Bld) [Entitic vol] 9.5 fL 6.3-10.7 [facility] Platelets Auto (Bld) [#/Vol] Ordered By: Estuardo Hardin on 03-21-2023 Platelets (Bld) [#/Vol] 330 10*3/uL 150-450 [facility] Potassium [Moles/volume] in Serum or PlasmaOrdered By: Estuardo Hardin on 03-21-2023 Potassium [Moles/Vol] 3.0 mmol/L 3.5-5.[address] [facility] Protein Auto test strip (U) [Mass/Vol]Ordered By: Estuardo Hardin on 03-21-2023 Protein (U) [Mass/Vol] 100 mg/dL Negative Fi [facility] Protein [Mass/volume] in Ser um or PlasmaOrdered By: Estuardo Hardin on 03-21-2023 Protein [Mass/Vol] 8.3 g/dL 6.4-8.9 [facility] RBC Auto (Bld) [#/Vol]Ordere d By: Estuardo Hardin on 03-21-2023 RBC (Bld) [#/Vol] 5.28 10*6/uL 3.60-5.00 [facility] Serum or plasma albumin/glob ulin mass ratioOrdered By: Estuardo Hardin on 03-21-2023 Albumin/Globulin [Mass ratio] 1.8 {ratio} [facility] Serum or plasma anion gap de terminationOrdered By: Estuardo Hardin on 03-21-2023 Anion gap [Moles/Vol] 19.3 mmol/L 6.0-15.0 [facility] Serum or plasma non-glucuron idated bilirubin measurement (mass/volume)Ordered By: Estuardo Hardin on 03-21-2023 Bilirubin.indirect [Mass/Vol] 1.0 mg/dL [facility] Sodium [Moles/volume] in Ser um or PlasmaOrdered By: Estuardo Hardin on 03-21-2023 Sodium [Moles/Vol] 142 mmol/L 136-145 [facility] Specific gravity Auto test s trip (U) [Rel density]Ordered By: Estuardo Hardin on 03-21-2023 Specific gravity (U) [Rel density] 1.026 1.001-1.030 [facility] Squamous epithelial cells de tection in urine sediment by light microscopyOrdered By: Estuardo Hardin on 03-21-2023 Epithelial cells.squamous LM Ql (Urine sed) 10-19 [HPF] 0-2 [facility] Troponin I High Sensitivityo n 03-21-2023 Troponin I High Sensitivity 3.6 pg/mL Normal 0.0-15.0 [facility] Comment on above: Result Comment: PERF ORMED BY: [place] [address] PATHOLOGIST CARDIOPULMONARY PHYSICAL THERAPIST LUCIA WEBSTER M.D. Performed By: #### M G, [id number], CBC, PHOS, CMP #### [address] Troponin I.cardiac [Mass/vol ume] in Serum or Plasma by Detection limit <= 0.01 ng/Ordered By: Estuardo Hardin on 03-21-2023 Troponin I.cardiac DL <= 0.01 ng/mL [Mass/Vol] 3.6 pg/mL 0.0-15.0 [facility] Urea nitrogen [Mass/volume] in Serum or PlasmaOrdered By: Estuardo Hardin on 03-21-2023 Urea nitrogen [Mass/Vol] 8 mg/dL 7-25 [facility] Urine Cultureon 03-21-2023 Bacteria identified Cx Nom (U) No Growth 2 Days PERFORMED BY: [place] [address] PATHOLOGIST CARDIOPULMONARY PHYSICAL THERAPIST LUCIA WEBSTER M.D. [facility] Comment on above: Performed By: #### C BC #### [address] Urine bacteria detection by automated methodOrdered By: Estuardo Hardin on 03-21-2023 Bacteria Auto Ql (U) None seen None Seen [facility] Urine clarity by refractomet ry automatedOrdered By: Estuardo Hardin on 03-21-2023 Clarity Refractometry automated (U) Cloudy Clear [facility] Urine culture routineOrdered By: Estuardo Hardni on 03-21-2023 Bacteria identified Cx Nom (U) No Growth 2 Days [facility] Urine glucose measurement by automated test strip (mass/volume)Ordered By: Estuardo Hardin on 03-21-2023 Glucose Auto test strip (U) [Mass/Vol] Normal mg/dL Normal [facility] Urine hemoglobin detection b y automated test stripOrdered By: Estuardo Hardin on 03-21-2023 Hemoglobin Auto test strip Ql (U) Negative Negative [facility] Urine leukocyte esterase det ection by automated test stripOrdered By: Estuardo Hardin on 03-21-2023 Leukocyte esterase Auto test strip Ql (U) 1+ Negative [facility] Urobilinogen Auto test strip (U) [Mass/Vol]Ordered By: Estuardo Hardin on 03-21-2023 Urobilinogen (U) [Mass/Vol] Normal mg/dL Normal [facility] WBC Auto (Bld) [#/Vol]Ordere d By: Estuardo Hardin on 03-21-2023 WBC (Bld) [#/Vol] 10.2 10*3/uL 3.8-11.6 [facility] XR chest 1V portableon 03-21 XR chest 1V portable [facility] [place] [address] XRay Report Signed Patient: Roshan Domínguez MR#: [id number] : 1990 Acct:[id number] Age/Sex: 32 / F ADM Date: 03/21/23 Loc: ER Room: Type: [facility] ER Attending Dr: Copies to: Estuardo Hardin DO Ordering Provider: Estuardo Hardin DO Date of Service: 03/21/23 XR/XR chest 1V portable: Chest Pain Plain film chest Single view HISTORY: Chest pain COMPARISON: 07/24/22 FINDINGS: SUPPORT DEVICES: None POSTSURGICAL CHANGES: None HEART: Within normal limits PULMONARY OPAL: Within normal limits MEDIASTINUM: Unremarkable LUNGS AND PLEURA: No acute lung process, pleural effusion or pneumothorax identified. BONY STRUCTURES: Intact ADDITIONAL FINDINGS None XR/XR chest 1V portable IMPRESSION: No acute process. Impression dictated by: Pancho Lambert M.D.03/21/2023 9:06 AM Dictation Location: [place] [address] Transcribed By: [facility] 03/21/23905 Dictated By: Pancho Lambert DO 03/21/23904 Signed By: 03/21/23905 Normal [facility] pH Auto test strip (U)Ordere d By: Estuardo Hardin on 03-21-2023 pH (U) 6.5 [pH] 5.0-9.0 [facility] Alanine aminotransferase [En zymatic activity/volume] in Serum or PlasmaOrdered By: Anny Marin on 03-20-2023 ALT [Catalytic activity/Vol] 10 U/L 7-52 [facility] Albumin [Mass/volume] in Ser um or Plasma by Bromocresol green (BCG) dye binding methoOrdered By: Anny Marin on 03-20-2023 Albumin BCG dye [Mass/Vol] 5.2 g/dL 3.5-5.7 [facility] Alkaline phosphatase [Enzyma tic activity/volume] in Serum or PlasmaOrdered By: Anny Marin on 03-20-2023 ALP [Catalytic activity/Vol] 47 U/L 34-104 [facility] Amylaseon 03-20-2023 Amylase [Catalytic activity/Vol] 11 U/L Low 29-103 [facility] Comment on above: Order Comment: Reaso n for Exam Anorexia nervosa, binge eating/purging type Performed By: #### M G, [id number], CBC, PHOS, CMP #### [facility] [address] Amylase [Enzymatic activity/ volume] in Serum or PlasmaOrdered By: Anny Marin on 03-20-2023 Amylase [Catalytic activity/Vol] 11 U/L 29-103 [facility] Aspartate aminotransferase [ Enzymatic activity/volume] in Serum or PlasmaOrdered By: Anny Marin on 03-20-2023 AST [Catalytic activity/Vol] 12 U/L 13-39 [facility] Basophils Auto (Bld) [#/Vol] Ordered By: Anny Marin on 03-20-2023 Basophils (Bld) [#/Vol] 0.1 10*3/uL 0.0-0.2 [facility] Basophils/100 WBC Auto (Bld) Ordered By: Anny Marin on 03-20-2023 Basophils/100 WBC (Bld) 0.8 % . F [facility] Bilirubin.total [Mass/volume ] in Serum or PlasmaOrdered By: Anny Marin on 03-20-2023 Bilirubin [Mass/Vol] 0.7 mg/dL 0.3-1.0 [facility] Calcium [Mass/volume] in Ser um or PlasmaOrdered By: Anny Marin on 03-20-2023 Calcium [Mass/Vol] 10.3 mg/dL 8.6-10.3 [facility] Carbon dioxide, total [Moles /volume] in Serum or PlasmaOrdered By: Anny Marin on 03-20-2023 CO2 [Moles/Vol] 27.8 mmol/L 21.0-31.0 [facility] Chloride [Moles/volume] in S yova or PlasmaOrdered By: Anny Marin on 03-20-2023 Chloride [Moles/Vol] 103 mmol/L 98-107 [facility] Complete Blood Count Auto Di ffon 03-20-2023 Basophils (Bld) [#/Vol] 0.1 10*3/uL Normal 0.0-0.2 [facility] Comment on above: Order Comment: Reaso n for Exam Anorexia nervosa, binge eating/purging type Result Comment: PERF ORMED BY: [place] [address] PATHOLOGIST CARDIOPULMONARY PHYSICAL THERAPIST LUCIA WEBSTER M.D. Performed By: #### M G, [id number], CBC, PHOS, CMP #### [facility] [address] [place] [address] Basophils/100 WBC (Bld) 0.8 % Normal . F [facility] Comment on above: Order Comment: Reaso n for Exam Anorexia nervosa, binge eating/purging type Performed By: #### M G, [id number], CBC, PHOS, CMP #### [facility] [address] [place] [address] [place] Eosinophils (Bld) [#/Vol] 0.0 10*3/uL Normal 0.0-0.45 [facility] Comment on above: Order Comment: Reaso n for Exam Anorexia nervosa, binge eating/purging type Performed By: #### M G, [id number], CBC, PHOS, CMP #### [facility] [address] [place] [address] [place] Eosinophils/100 WBC (Bld) 0.5 % Normal . [facility] Comment on above: Order Comment: Reaso n for Exam Anorexia nervosa, binge eating/purging type Performed By: #### M G, [id number], CBC, PHOS, CMP #### [facility] [address] [place] [address] Erythrocyte distribution width (RBC) [Ratio] 13.9 % Normal 11.9-15.3 [facility] Comment on above: Order Comment: Reaso n for Exam Anorexia nervosa, binge eating/purging type Performed By: #### M G, [id number], CBC, PHOS, CMP #### [address] Hematocrit (Bld) [Volume fraction] 46.2 % Normal 34.0-46.4 [facility] Comment on above: Order Comment: Reaso n for Exam Anorexia nervosa, binge eating/purging type Performed By: #### M G, [id number], CBC, PHOS, CMP #### [address] Hemoglobin (Bld) [Mass/Vol] 15.8 g/dL High 11.8-15.4 [facility] Comment on above: Order Comment: Reaso n for Exam Anorexia nervosa, binge eating/purging type Performed By: #### M G, [id number], CBC, PHOS, CMP #### [address] Lymphocytes (Bld) [#/Vol] 1.6 10*3/uL Normal 1.00-4.8 [facility] Comment on above: Order Comment: Reaso n for Exam Anorexia nervosa, binge eating/purging type Performed By: #### M G, [id number], CBC, PHOS, CMP #### [address] Lymphocytes/100 WBC (Bld) 16.6 % Normal . [facility] Comment on above: Order Comment: Reaso n for Exam Anorexia nervosa, binge eating/purging type Performed By: #### M G, [id number], CBC, PHOS, CMP #### [address] MCH (RBC) [Entitic mass] 31.5 pg Normal 24.7-34.3 [facility] Comment on above: Order Comment: Reaso n for Exam Anorexia nervosa, binge eating/purging type Performed By: #### M G, [id number], CBC, PHOS, CMP #### [address] MCV (RBC) [Entitic vol] 92.0 fL Normal 80-[address] [facility] Comment on above: Order Comment: Reaso n for Exam Anorexia nervosa, binge eating/purging type Performed By: #### M G, [id number], CBC, PHOS, CMP #### [address] Mean Corpuscular HGB Conc 34.2 g/dL Normal 32.0-35.0 [facility] Comment on above: Order Comment: Reaso n for Exam Anorexia nervosa, binge eating/purging type Performed By: #### M G, [id number], CBC, PHOS, CMP #### [address] Monocytes (Bld) [#/Vol] 0.5 10*3/uL Normal 0.0-0.8 [facility] Comment on above: Order Comment: Reaso n for Exam Anorexia nervosa, binge eating/purging type Performed By: #### M G, [id number], CBC, PHOS, CMP #### [place] [address] [place] Monocytes/100 WBC (Bld) 5.0 % Normal . F [facility] Comment on above: Order Comment: Reaso n for Exam Anorexia nervosa, binge eating/purging type Performed By: #### M G, [id number], CBC, PHOS, CMP #### [place] [address] [place] Neutrophils (Bld) [#/Vol] 7.6 10*3/uL Normal 1.8-7.7 [facility] Comment on above: Order Comment: Reaso n for Exam Anorexia nervosa, binge eating/purging type Performed By: #### M G, [id number], CBC, PHOS, CMP #### [place] [address] [place] Neutrophils/100 WBC (Bld) 77.1 % Normal . [facility] Comment on above: Order Comment: Reaso n for Exam Anorexia nervosa, binge eating/purging type Performed By: #### M G, [id number], CBC, PHOS, CMP #### [facility] [address] [place] [address] NRBC% 0.1 /100{WBC} Normal 0-0.5 [facility] Comment on above: Order Comment: Reaso n for Exam Anorexia nervosa, binge eating/purging type Performed By: #### M G, [id number], CBC, PHOS, CMP #### [address] Platelet mean volume (Bld) [Entitic vol] 9.3 fL Normal 6.3-10.7 [facility] Comment on above: Order Comment: Reaso n for Exam Anorexia nervosa, binge eating/purging type Performed By: #### M G, [id number], CBC, PHOS, CMP #### [place] [address] [place] Platelets (Bld) [#/Vol] 337 10*3/uL Normal 150-450 [facility] Comment on above: Order Comment: Reaso n for Exam Anorexia nervosa, binge eating/purging type Performed By: #### M G, [id number], CBC, PHOS, CMP #### [address] RBC (Bld) [#/Vol] 5.02 10*6/uL High 3.60-5.00 [facility] Comment on above: Order Comment: Reaso n for Exam Anorexia nervosa, binge eating/purging type Performed By: #### M G, [id number], CBC, PHOS, CMP #### [address] WBC (Bld) [#/Vol] 9.9 10*3/uL Normal 3.8-11.6 [facility] Comment on above: Order Comment: Reaso n for Exam Anorexia nervosa, binge eating/purging type Performed By: #### M G, [id number], CBC, PHOS, CMP #### [address] [place] [address] [place] Comprehensive Metabolic Pane ozzie 03-20-2023 Albumin [Mass/Vol] 5.2 g/dL Normal 3.5-5.7 [facility] Comment on above: Order Comment: Reaso n for Exam Anorexia nervosa, binge eating/purging type Performed By: #### M G, [id number], CBC, PHOS, CMP #### [facility] [address] Albumin/Globulin [Mass ratio] 2.0 {ratio} Normal [facility] Comment on above: Order Comment: Reaso n for Exam Anorexia nervosa, binge eating/purging type Performed By: #### M G, [id number], CBC, PHOS, CMP #### [facility] [address] [place] [address] ALP [Catalytic activity/Vol] 47 U/L Normal 34-104 [facility] Comment on above: Order Comment: Reaso n for Exam Anorexia nervosa, binge eating/purging type Performed By: #### M G, [id number], CBC, PHOS, CMP #### [facility] [address] [place] [address] ALT [Catalytic activity/Vol] 10 U/L Normal 7-52 [facility] Comment on above: Order Comment: Reaso n for Exam Anorexia nervosa, binge eating/purging type Performed By: #### M G, [id number], CBC, PHOS, CMP #### [facility] [address] [place] [address] Anion gap [Moles/Vol] 17.1 mmol/L High 6.0-15.0 [facility] Comment on above: Order Comment: Reaso n for Exam Anorexia nervosa, binge eating/purging type Performed By: #### M G, [id number], CBC, PHOS, CMP #### [facility] [address] [place] [address] AST [Catalytic activity/Vol] 12 U/L Low 13-39 [facility] Comment on above: Order Comment: Reaso n for Exam Anorexia nervosa, binge eating/purging type Performed By: #### M G, [id number], CBC, PHOS, CMP #### [facility] [address] Bilirubin [Mass/Vol] 0.7 mg/dL Normal 0.3-1.0 [facility] Comment on above: Order Comment: Reaso n for Exam Anorexia nervosa, binge eating/purging type Performed By: #### M G, [id number], CBC, PHOS, CMP #### [facility] [address] Calcium [Mass/Vol] 10.3 mg/dL Normal 8.6-10.3 [facility] Comment on above: Order Comment: Reaso n for Exam Anorexia nervosa, binge eating/purging type Performed By: #### M G, [id number], CBC, PHOS, CMP #### [address] Chloride [Moles/Vol] 103 mmol/L Normal 98-107 [facility] Comment on above: Order Comment: Reaso n for Exam Anorexia nervosa, binge eating/purging type Performed By: #### M G, [id number], CBC, PHOS, CMP #### [facility] [address] [place] [address] CO2 [Moles/Vol] 27.8 mmol/L Normal 21.0-31.0 [facility] Comment on above: Order Comment: Reaso n for Exam Anorexia nervosa, binge eating/purging type Performed By: #### M G, [id number], CBC, PHOS, CMP #### [facility] [address] [place] [address] Creatinine [Mass/Vol] 0.96 mg/dL Normal 0.60-1.[address] [facility] Comment on above: Order Comment: Reaso n for Exam Anorexia nervosa, binge eating/purging type Performed By: #### M G, [id number], CBC, PHOS, CMP #### [facility] [address] [place] [address] [place] GFR/1.73 sq M.predicted MDRD (S/P/Bld) [Vol rate/Area] mL/min/{1.73_m2} Normal [facility] Comment on above: Order Comment: Reaso n for Exam Anorexia nervosa, binge eating/purging type Performed By: #### M G, [id number], CBC, PHOS, CMP #### [facility] [address] Globulin (S) [Mass/Vol] 2.6 g/dL Normal [facility] Comment on above: Order Comment: Reaso n for Exam Anorexia nervosa, binge eating/purging type Performed By: #### M G, [id number], CBC, PHOS, CMP #### [facility] [address] Glucose [Mass/Vol] 98 mg/dL Normal 70-100 [facility] Comment on above: Order Comment: Reaso n for Exam Anorexia nervosa, binge eating/purging type Result Comment: [facility] Glucose Reference Range is dependent on time and content of last meal. Glucose of more than 200 mg/dL in a nonstressed, ambulatory subject supports the diagnosis of Diabetes Mellitus. ADA recommended reference range Performed By: #### M G, [id number], CBC, PHOS, CMP #### [address] Potassium [Moles/Vol] 3.9 mmol/L Normal 3.5-5.[address] [facility] Comment on above: Order Comment: Reaso n for Exam Anorexia nervosa, binge eating/purging type Performed By: #### M G, [id number], CBC, PHOS, CMP #### [facility] [address] Protein [Mass/Vol] 7.8 g/dL Normal 6.4-8.9 [facility] Comment on above: Order Comment: Reaso n for Exam Anorexia nervosa, binge eating/purging type Performed By: #### M G, [id number], CBC, PHOS, CMP #### [facility] [address] [place] [address] [place] Sodium [Moles/Vol] 144 mmol/L Normal 136-145 [facility] Comment on above: Order Comment: Reaso n for Exam Anorexia nervosa, binge eating/purging type Performed By: #### M G, [id number], CBC, PHOS, CMP #### [facility] [address] [place] [address] [place] Urea nitrogen [Mass/Vol] 7 mg/dL Normal 7-25 [facility] Comment on above: Order Comment: Reaso n for Exam Anorexia nervosa, binge eating/purging type Performed By: #### M G, [id number], CBC, PHOS, CMP #### [facility] [address] [place] [address] [place] Creatinine [Mass/volume] in Serum or PlasmaOrdered By: Anyn Marin on 03-20-2023 Creatinine [Mass/Vol] 0.96 mg/dL 0.60-1.[address] [facility] Eosinophils Auto (Bld) [#/Vo l]Ordered By: Anny Marin on 03-20-2023 Eosinophils (Bld) [#/Vol] 0.0 10*3/uL 0.0-0.45 [facility] Eosinophils/100 WBC Auto (Bl d)Ordered By: Anny Marin on 03-20-2023 Eosinophils/100 WBC (Bld) 0.5 % . [facility] Erythrocyte distribution wid th Auto (RBC) [Ratio]Ordered By: Anny aMrin on 03-20-2023 Erythrocyte distribution width (RBC) [Ratio] 13.9 % 11.9-15.3 [facility] Globulin Calc (S) [Mass/Vol] Ordered By: Anny Marin on 03-20-2023 Globulin (S) [Mass/Vol] 2.6 g/dL [facility] Glucose [Mass/volume] in Ser um or PlasmaOrdered By: Anny Marin on 03-20-2023 Glucose [Mass/Vol] 98 mg/dL 70-100 [facility] Comment on above: ADA recommended refe rence rangeRandom Glucose Reference Range is dependent on time and content of last meal. Glucose of more than 200 mg/dL in a nonstressed, ambulatory subject supports the diagnosis of Diabetes Mellitus. Hematocrit Auto (Bld) [Volum e fraction]Ordered By: Anny Valenteaustyn on 03-20-2023 Hematocrit (Bld) [Volume fraction] 46.2 % 34.0-46.4 [facility] Hemoglobin [Mass/volume] in BloodOrdered By: Anny Valenteaustyn on 03-20-2023 Hemoglobin (Bld) [Mass/Vol] 15.8 g/dL 11.8-15.4 [facility] Leukocytes [#/volume] correc kitty for nucleated erythrocytes in Blood by Automated counOrdered By: Anny Tomas on 03-20-2023 WBC corrected for nucl RBC Auto (Bld) [#/Vol] 9.9 10*3/uL 3.8-11.6 [facility] Lipaseon 03-20-2023 Lipase [Catalytic activity/Vol] 5.0 U/L Low 11.0-82.0 [facility] Comment on above: Order Comment: Reaso n for Exam Anorexia nervosa, binge eating/purging type Performed By: #### M G, [id number], CBC, PHOS, CMP #### [facility] [address] [place] [address] Lipase [Enzymatic activity/v olume] in Serum or PlasmaOrdered By: Anny Tomas on 03-20-2023 Lipase [Catalytic activity/Vol] 5.0 U/L 11.0-82.0 [facility] Lymphocytes Auto (Bld) [#/Vo l]Ordered By: Anny Marin on 03-20-2023 Lymphocytes (Bld) [#/Vol] 1.6 10*3/uL 1.00-4.8 [facility] Lymphocytes/100 WBC Auto (Bl d)Ordered By: Anny Marin on 03-20-2023 Lymphocytes/100 WBC (Bld) 16.6 % . [facility] MCH Auto (RBC) [Entitic mass ]Ordered By: Anny Marin on 03-20-2023 MCH (RBC) [Entitic mass] 31.5 pg 24.7-34.3 [facility] MCHC Auto (RBC) [Mass/Vol]Or dered By: Anny Marin on 11-09-2023 MCHC (RBC) [Mass/Vol] 34.2 g/dL 32.0-35.[address] [facility] MCV Auto (RBC) [Entitic vol] Ordered By: Anyn Valenteaustyn on 03-20-2023 MCV (RBC) [Entitic vol] 92.0 fL 80-[address] [facility] Magnesiumon 03-20-2023 Magnesium [Mass/Vol] 1.9 mg/dL Normal 1.9-2.7 [facility] Comment on above: Order Comment: Reaso n for Exam Anorexia nervosa, binge eating/purging type Performed By: #### M G, [id number], CBC, PHOS, CMP #### [facility] [address] Magnesium [Mass/volume] in S yoav or PlasmaOrdered By: Anny Marin on 03-20-2023 Magnesium [Mass/Vol] 1.9 mg/dL 1.9-2.7 [facility] Monocytes Auto (Bld) [#/Vol] Ordered By: Anny Tomas on 03-20-2023 Monocytes (Bld) [#/Vol] 0.5 10*3/uL 0.0-0.8 [facility] Monocytes/100 WBC Auto (Bld) Ordered By: Anny Marin on 03-20-2023 Monocytes/100 WBC (Bld) 5.0 % . F [facility] Neutrophils Auto (Bld) [#/Vo l]Ordered By: Anny Tomas on 03-20-2023 Neutrophils (Bld) [#/Vol] 7.6 10*3/uL 1.8-7.7 [facility] Neutrophils/100 WBC Auto (Bl d)Ordered By: Anny Marin on 03-20-2023 Neutrophils/100 WBC (Bld) 77.1 % . [facility] No Panel InformationOrdered By: Anny Marin on 03-20-2023 Estimated GFR (CKD-EPI) > 60.0 mL/Min [facility] Creatinine Clearance (Chem N/A [facility] Nucleated erythrocytes [Pres ence] in Blood by Automated countOrdered By: Anny Marin on 03-20-2023 Nucleated RBC Auto Ql (Bld) 0.1 /100{WBC} 0-0.5 [facility] Phosphate [Mass/volume] in S yoav or PlasmaOrdered By: Anny Marin on 03-20-2023 Phosphate [Mass/Vol] 3.6 mg/dL 2.5-4.5 [facility] Phosphoruson 03-20-2023 Phosphate [Mass/Vol] 3.6 mg/dL Normal 2.5-4.5 [facility] Comment on above: Order Comment: Reaso n for Exam Anorexia nervosa, binge eating/purging type Performed By: #### M G, [id number], CBC, PHOS, CMP #### [facility] [address] Platelet mean volume Auto (B ld) [Entitic vol]Ordered By: Anny Marin on 03-20-2023 Platelet mean volume (Bld) [Entitic vol] 9.3 fL 6.3-10.7 [facility] Platelets Auto (Bld) [#/Vol] Ordered By: Anny Marin on 03-20-2023 Platelets (Bld) [#/Vol] 337 10*3/uL 150-450 [facility] Potassium [Moles/volume] in Serum or PlasmaOrdered By: Anny Marin on 03-20-2023 Potassium [Moles/Vol] 3.9 mmol/L 3.5-5.[address] [facility] Prolactinon 03-20-2023 Prolactin 10.01 ng/mL Normal 3.34-26.72 [facility] Comment on above: Order Comment: Reaso n for Exam Anorexia nervosa, binge eating/purging type Result Comment: PERF ORMED BY: [facility] [address] [place] [address] PATHOLOGIST CARDIOPULMONARY PHYSICAL THERAPIST LUCIA WEBSTER M.D. Performed By: #### M G, [id number], CBC, PHOS, CMP #### [facility] [address] [place] [address] [place] Prolactin [Mass/volume] in S yoav or PlasmaOrdered By: Anny Marin on 03-20-2023 Prolactin [Mass/Vol] 10.01 ng/mL 3.34-26.[address] [facility] Protein [Mass/volume] in Ser um or PlasmaOrdered By: Anny Marin on 03-20-2023 Protein [Mass/Vol] 7.8 g/dL 6.4-8.9 [facility] RBC Auto (Bld) [#/Vol]Ordere d By: Anny Marin on 03-20-2023 RBC (Bld) [#/Vol] 5.02 10*6/uL 3.60-5.00 [facility] Serum or plasma albumin/glob ulin mass ratioOrdered By: Anny Marin on 03-20-2023 Albumin/Globulin [Mass ratio] 2.0 {ratio} [facility] Serum or plasma anion gap de terminationOrdered By: Anny Marin on 03-20-2023 Anion gap [Moles/Vol] 17.1 mmol/L 6.0-15.0 [facility] Sodium [Moles/volume] in Ser um or PlasmaOrdered By: Anny Marin on 03-20-2023 Sodium [Moles/Vol] 144 mmol/L 136-145 [facility] Thyroid Stim Hormone w/Rflxo n 03-20-2023 Thyroid Stim Hormone w/Rflx 1.00 u[iU]/mL Normal 0.45-5.33 [facility] Comment on above: Order Comment: Reaso n for Exam Anorexia nervosa, binge eating/purging type Performed By: #### M G, [id number], CBC, PHOS, CMP #### [facility] [address] [place] [address] Thyrotropin [Units/volume] i n Serum or PlasmaOrdered By: Anny Marin on 03-20-2023 TSH Qn 1.00 m[IU]/L 0.45-5.33 [facility] Urea nitrogen [Mass/volume] in Serum or PlasmaOrdered By: Anny Marin on 03-20-2023 Urea nitrogen [Mass/Vol] 7 mg/dL 7-25 [facility] WBC Auto (Bld) [#/Vol]Ordere d By: Anny Marin on 03-20-2023 WBC (Bld) [#/Vol] 9.9 10*3/uL 3.8-11.6 [facility] Alanine aminotransferase [En zymatic activity/volume] in Serum or PlasmaOrdered By: Ismael Calderon on 03-13-2023 ALT [Catalytic activity/Vol] 12 U/L 7-52 [facility] Albumin [Mass/volume] in Ser um or Plasma by Bromocresol green (BCG) dye binding methoOrdered By: Ismael Calderon on 03-13-2023 Albumin BCG dye [Mass/Vol] 4.9 g/dL 3.5-5.7 [facility] Alkaline phosphatase [Enzyma tic activity/volume] in Serum or PlasmaOrdered By: Ismael Calderon on 03-13-2023 ALP [Catalytic activity/Vol] 38 U/L 34-104 [facility] Amphetamine Screen Ql (U)Ord ered By: Ismael Calderon on 03-13-2023 Amphetamines Ql (U) Negative Negative [facility] Aspartate aminotransferase [ Enzymatic activity/volume] in Serum or PlasmaOrdered By: Ismael Calderon on 03-13-2023 AST [Catalytic activity/Vol] 12 U/L 13-39 [facility] Automated erythrocytes count in urine sediment (number/area)Ordered By: Ismael Calderon on 03-13-2023 RBC Auto (Urine sed) [#/Area] 1-2 [HPF] 0-4 [facility] Automated leukocytes count i n urine sediment (number/area)Ordered By: Ismael Calderon on 03-13-2023 WBC Auto (Urine sed) [#/Area] 3-4 [HPF] 0-4 [facility] Barbiturates [Presence] in U rine by Screen methodOrdered By: Ismael Calderon on 03-13-2023 Barbiturates Screen Ql (U) Negative Negative [facility] Basophils Auto (Bld) [#/Vol] Ordered By: Ismael Calderon on 03-13-2023 Basophils (Bld) [#/Vol] 0.1 10*3/uL 0.0-0.2 [facility] Basophils/100 WBC Auto (Bld) Ordered By: Ismael Calderon on 03-13-2023 Basophils/100 WBC (Bld) 0.8 % . F [facility] Benzodiazepines Screen Ql (U )Ordered By: Ismael Calderon on 03-13-2023 Benzodiazepines Ql (U) Negative Negative [facility] Benzoylecgonine [Presence] i n Urine by Screen methodOrdered By: Ismael Calderon on 03-13-2023 Benzoylecgonine Screen Ql (U) Negative Negative [facility] Bilirubin Test strip Ql (U)O rdered By: Ismael Calderon on 03-13-2023 Bilirubin Ql (U) Negative Negative [facility] Bilirubin.total [Mass/volume ] in Serum or PlasmaOrdered By: Ismael Calderon on 03-13-2023 Bilirubin [Mass/Vol] 0.6 mg/dL 0.3-1.0 [facility] Calcium [Mass/volume] in Ser um or PlasmaOrdered By: Ismael Calderon on 03-13-2023 Calcium [Mass/Vol] 9.5 mg/dL 8.6-10.3 [facility] Cannabinoids [Presence] in U rine by Screen methodOrdered By: Ismael Calderon on 03-13-2023 Cannabinoids Screen Ql (U) Positive Negative [facility] Comment on above: These are unconfirme d results and should not be used for legal purposes. Drug Cut-Off Concentration: AMPH 1000 ng/mL CURT 200 ng/mL MYCHAL 200 ng/mL COCM 300 ng/mL OP 300 ng/mL PCP 25 ng/mL THC 20 ng/mL Carbon dioxide, total [Moles /volume] in Serum or PlasmaOrdered By: Ismael Calderon on 03-13-2023 CO2 [Moles/Vol] 22.9 mmol/L 21.0-31.0 [facility] Chloride [Moles/volume] in S yoav or PlasmaOrdered By: Ismael Calderon on 03-13-2023 Chloride [Moles/Vol] 108 mmol/L 98-107 [facility] Color Auto (U)Ordered By: Jacques Calderon on 03-13-2023 Color (U) Yellow Yellow [facility] Complete Blood Count Auto Di ffon 03-13-2023 Basophils (Bld) [#/Vol] 0.1 10*3/uL Normal 0.0-0.2 [facility] Comment on above: Result Comment: PERF ORMED BY: [place] [address] PATHOLOGIST CARDIOPULMONARY PHYSICAL THERAPIST LUCIA WEBSTER M.D. Performed By: #### C BC #### [address] Basophils/100 WBC (Bld) 0.8 % Normal . F [facility] Comment on above: Performed By: #### C BC #### [address] Eosinophils (Bld) [#/Vol] 0.1 10*3/uL Normal 0.0-0.45 [facility] Comment on above: Performed By: #### C BC #### [address] Eosinophils/100 WBC (Bld) 1.0 % Normal . [facility] Comment on above: Performed By: #### C BC #### [address] Erythrocyte distribution width (RBC) [Ratio] 13.9 % Normal 11.9-15.3 [facility] Comment on above: Performed By: #### C BC #### [address] Hematocrit (Bld) [Volume fraction] 45.9 % Normal 34.0-46.4 [facility] Comment on above: Performed By: #### C BC #### [address] Hemoglobin (Bld) [Mass/Vol] 15.8 g/dL High 11.8-15.4 [facility] Comment on above: Performed By: #### C BC #### [address] Lymphocytes (Bld) [#/Vol] 1.3 10*3/uL Normal 1.00-4.8 [facility] Comment on above: Performed By: #### C BC #### [address] Lymphocytes/100 WBC (Bld) 15.9 % Normal . [facility] Comment on above: Performed By: #### C BC #### [facility] [address] MCH (RBC) [Entitic mass] 31.7 pg Normal 24.7-34.3 [facility] Comment on above: Performed By: #### C BC #### [facility] [address] MCV (RBC) [Entitic vol] 92.2 fL Normal 80-[address] [facility] Comment on above: Performed By: #### C BC #### [facility] [address] Mean Corpuscular HGB Conc 34.4 g/dL Normal 32.0-35.0 [facility] Comment on above: Performed By: #### C BC #### [facility] [address] Monocytes (Bld) [#/Vol] 0.4 10*3/uL Normal 0.0-0.8 [facility] Comment on above: Performed By: #### C BC #### [facility] [address] [place] [address] [place] Monocytes/100 WBC (Bld) 16.49 % Normal 0.00-20.[address] [facility] Comment on above: Performed By: #### C BC #### [facility] [address] [place] [address] [place] Monocytes/100 WBC (Bld) 4.2 % Normal . F [facility] Comment on above: Performed By: #### C BC #### [facility] [address] [place] [address] [place] Neutrophils (Bld) [#/Vol] 6.5 10*3/uL Normal 1.8-7.7 [facility] Comment on above: Performed By: #### C BC #### [facility] [address] Neutrophils/100 WBC (Bld) 78.1 % Normal . [facility] Comment on above: Performed By: #### C BC #### [facility] [address] NRBC% 0.0 /100{WBC} Normal 0-0.5 [facility] Comment on above: Performed By: #### C BC #### [facility] [address] Platelet mean volume (Bld) [Entitic vol] 9.7 fL Normal 6.3-10.7 [facility] Comment on above: Performed By: #### C BC #### [facility] [address] Platelets (Bld) [#/Vol] 252 10*3/uL Normal 150-450 [facility] Comment on above: Performed By: #### C BC #### [address] RBC (Bld) [#/Vol] 4.98 10*6/uL Normal 3.60-5.00 [facility] Comment on above: Performed By: #### C BC #### [address] WBC (Bld) [#/Vol] 8.3 10*3/uL Normal 3.8-11.6 [facility] Comment on above: Performed By: #### C BC #### [address] Comprehensive Metabolic Pane ozzie 03-13-2023 Albumin [Mass/Vol] 4.9 g/dL Normal 3.5-5.7 [facility] Comment on above: Performed By: #### C BC #### [address] Albumin/Globulin [Mass ratio] 2.0 {ratio} Normal [facility] Comment on above: Performed By: #### C BC #### [address] ALP [Catalytic activity/Vol] 38 U/L Normal 34-104 [facility] Comment on above: Performed By: #### C BC #### [address] [place] [address] [place] ALT [Catalytic activity/Vol] 12 U/L Normal 7-52 [facility] Comment on above: Performed By: #### C BC #### [facility] [address] Anion gap [Moles/Vol] 13.7 mmol/L Normal 6.0-15.0 [facility] Comment on above: Performed By: #### C BC #### [facility] [address] [place] [address] AST [Catalytic activity/Vol] 12 U/L Low 13-39 [facility] Comment on above: Performed By: #### C BC #### [facility] [address] [place] [address] Bilirubin [Mass/Vol] 0.6 mg/dL Normal 0.3-1.0 [facility] Comment on above: Performed By: #### C BC #### [facility] [address] [place] [address] Calcium [Mass/Vol] 9.5 mg/dL Normal 8.6-10.3 [facility] Comment on above: Performed By: #### C BC #### [facility] [address] [place] [address] Chloride [Moles/Vol] 108 mmol/L High 98-107 [facility] Comment on above: Performed By: #### C BC #### [facility] [address] [place] [address] CO2 [Moles/Vol] 22.9 mmol/L Normal 21.0-31.0 [facility] Comment on above: Performed By: #### C BC #### [facility] [address] [place] [address] Creatinine [Mass/Vol] 0.83 mg/dL Normal 0.60-1.[address] [facility] Comment on above: Performed By: #### C BC #### [facility] [address] [place] [address] Creatinine Clr Calc Pharmacy 87.09 Normal [facility] Comment on above: Result Comment: PERF ORMED BY: [place] [address] PATHOLOGIST CARDIOPULMONARY PHYSICAL THERAPIST LUCIA WEBSTER M.D. Performed By: #### C BC #### [address] GFR/1.73 sq M.predicted MDRD (S/P/Bld) [Vol rate/Area] mL/min/{1.73_m2} Normal [facility] Comment on above: Performed By: #### C BC #### [address] Globulin (S) [Mass/Vol] 2.4 g/dL Normal F [facility] Comment on above: Performed By: #### C BC #### [address] Glucose [Mass/Vol] 98 mg/dL Normal 70-100 [facility] Comment on above: Result Comment: Mcdonald Glucose Reference Range is dependent on time and content of last meal. Glucose of more than 200 mg/dL in a nonstressed, ambulatory subject supports the diagnosis of Diabetes Mellitus. ADA recommended reference range Performed By: #### C BC #### [address] Potassium [Moles/Vol] 3.6 mmol/L Normal 3.5-5.[address] [facility] Comment on above: Performed By: #### C BC #### [place] [address] [place] Protein [Mass/Vol] 7.3 g/dL Normal 6.4-8.9 [facility] Comment on above: Performed By: #### C BC #### [place] [address] [place] Sodium [Moles/Vol] 141 mmol/L Normal 136-145 [facility] Comment on above: Performed By: #### C BC #### [place] [address] [place] Urea nitrogen [Mass/Vol] 10 mg/dL Normal 7-25 [facility] Comment on above: Performed By: #### C BC #### [facility] [address] [place] [id number] [place] Creatinine [Mass/volume] in Serum or PlasmaOrdered By: Ismael Calderon on 03-13-2023 Creatinine [Mass/Vol] 0.83 mg/dL 0.60-1.[address] [facility] Dipstick and Microscopicon 1 05-13-2022 Appearance (U) Cloudy Critically abnormal Clear [facility] Comment on above: Order Comment: Name Collection Type:: Clean-Voided Midstream Performed By: #### C BC #### [facility] [address] [place] [address] [place] Bacteria,Urine None Seen Normal None Seen [facility] Comment on above: Order Comment: Name Collection Type:: Clean-Voided Midstream Performed By: #### C BC #### [facility] [address] [place] [address] [place] Bilirubin,Urine Negative Normal Negative [facility] Comment on above: Order Comment: Name Collection Type:: Clean-Voided Midstream Performed By: #### C BC #### [facility] [address] [place] [address] [place] Color (U) Yellow Normal Yellow [facility] Comment on above: Order Comment: Name Collection Type:: Clean-Voided Midstream Performed By: #### C BC #### [facility] [address] [place] [phone] [place] Glucose Ql (U) Normal Normal Normal [facility] Comment on above: Order Comment: Name Collection Type:: Clean-Voided Midstream Performed By: #### C BC #### [facility] [address] [place] [address] [place] Hyaline Casts,Urine 0-8 Normal 0-8 [facility] Comment on above: Order Comment: Name Collection Type:: Clean-Voided Midstream Performed By: #### C BC #### [facility] [address] [place] [phone] [place] Ketones Ql (U) 1+ High Negative [facility] Comment on above: Order Comment: Name Collection Type:: Clean-Voided Midstream Performed By: #### C BC #### [place] [id number] [facility] Leukocyte esterase Test strip Ql (U) Negative Normal Negative [facility] Comment on above: Order Comment: Name Collection Type:: Clean-Voided Midstream Performed By: #### C BC #### [place] [phone] [place] Nitrite,Urine Negative Normal Negative [facility] Comment on above: Order Comment: Name Collection Type:: Clean-Voided Midstream Performed By: #### C BC #### [address] Occult Blood,Urine Trace High Negative [facility] Comment on above: Order Comment: Name Collection Type:: Clean-Voided Midstream Performed By: #### C BC #### [address] pH (U) 5.5 [pH] Normal 5.0-9.0 [facility] Comment on above: Order Comment: Name Collection Type:: Clean-Voided Midstream Performed By: #### C BC #### [place] [address] [place] Protein,Urine Negative Normal Negative [facility] Comment on above: Order Comment: Name Collection Type:: Clean-Voided Midstream Performed By: #### C BC #### [place] [address] [place] RBC,Urine 1-2 Normal 0-4 [facility] Comment on above: Order Comment: Name Collection Type:: Clean-Voided Midstream Performed By: #### C BC #### [place] [id number] [place] Specificy [place],Urine 1.009 Normal 1.001-1.030 [facility] Comment on above: Order Comment: Name Collection Type:: Clean-Voided Midstream Performed By: #### C BC #### [place] [phone] [place] Squamous Epithelial Cell,Urine 5-9 High 0-2 [facility] Comment on above: Order Comment: Name Collection Type:: Clean-Voided Midstream Performed By: #### C BC #### [facility] [address] [place] [address] [place] Urobilinogen,Urine Normal Normal Normal [facility] Comment on above: Order Comment: Name Collection Type:: Clean-Voided Midstream Performed By: #### C BC #### [place] [address] [place] WBC,Urine 3-4 Normal 0-4 [facility] Comment on above: Order Comment: Name Collection Type:: Clean-Voided Midstream Performed By: #### C BC #### [place] [address] [place] Drug Screen,Urineon 03-13-20 23 Amphetamine Screen,Urine Negative Normal Negative [facility] Comment on above: Performed By: #### C BC #### [place] [address] [place] Barbiturate Screen,Urine Negative Normal Negative [facility] Comment on above: Performed By: #### C BC #### [place] [address] [place] Benzodiazepines Screen,Urine Negative Normal Negative [facility] Comment on above: Performed By: #### C BC #### [address] Cannabinoid Screen,Urine Positive High Negative [facility] Comment on above: Result Comment: Thes e are unconfirmed results and should not be used for legal purposes. Drug Cut-Off Concentration: AMPH 1000 ng/mL CURT 200 ng/mL MYCHAL 200 ng/mL COCM 300 ng/mL OP 300 ng/mL PCP 25 ng/mL THC 20 ng/mL PERFORMED BY: [place] [address] PATHOLOGIST CARDIOPULMONARY PHYSICAL THERAPIST LUCIA WEBSTER M.D. Performed By: #### C BC #### [place] [address] [place] Cocaine Screen,Urine Negative Normal Negative [facility] Comment on above: Performed By: #### C BC #### [address] [place] [address] [place] Opiate Screen,Urine Negative Normal Negative [facility] Comment on above: Performed By: #### C BC #### [address] Phencyclidine Screen,Urine Negative Normal Negative [facility] Comment on above: Performed By: #### C BC #### [address] Eosinophils Auto (Bld) [#/Vo l]Ordered By: Ismael Calderon on 03-13-2023 Eosinophils (Bld) [#/Vol] 0.1 10*3/uL 0.0-0.45 [facility] Eosinophils/100 WBC Auto (Bl d)Ordered By: Ismael Calderon on 03-13-2023 Eosinophils/100 WBC (Bld) 1.0 % . [facility] Erythrocyte distribution wid th Auto (RBC) [Ratio]Ordered By: Ismael Calderon on 03-13-2023 Erythrocyte distribution width (RBC) [Ratio] 13.9 % 11.9-15.3 [facility] Ethanol [Mass/volume] in Ser um or PlasmaOrdered By: Ismael Calderon on 03-13-2023 Ethanol [Mass/Vol] mg/dL [facility] Ethanol [Mass/Vol] TNP [facility] Comment on above: Test not performed Ethyl Alcohol Profileon Ethanol [Mass/Vol] mg/dL Normal [facility] Comment on above: Performed By: #### C BC #### [address] Percent Ethanol Not performed Normal [facility] Comment on above: Result Comment: PERF ORMED BY: [place] [address] PATHOLOGIST CARDIOPULMONARY PHYSICAL THERAPIST LUCIA WEBSTER M.D. Performed By: #### C BC #### [address] Globulin Calc (S) [Mass/Vol] Ordered By: Ismael Calderon on 03-13-2023 Globulin (S) [Mass/Vol] 2.4 g/dL F [facility] Glucose [Mass/volume] in Ser um or PlasmaOrdered By: Ismael Calderon on 03-13-2023 Glucose [Mass/Vol] 98 mg/dL 70-100 [facility] Comment on above: ADA recommended refe rence rangeRandom Glucose Reference Range is dependent on time and content of last meal. Glucose of more than 200 mg/dL in a nonstressed, ambulatory subject supports the diagnosis of Diabetes Mellitus. HCG ( test) IA.rapi d Ql (U)Ordered By: Ismael Calderon on 03-13-2023 HCG ( test) Ql (U) Negative [facility] HCG,Urineon 03-13-2023 Beta HCG ( test) Ql (U) Negative Normal [facility] Comment on above: Order Comment: Name Collection Type:: Clean-Voided Midstream Result Comment: PERF ORMED BY: [place] [address] PATHOLOGIST CARDIOPULMONARY PHYSICAL THERAPIST LUCIA WEBSTER M.D. Performed By: #### C BC #### [address] Hematocrit Auto (Bld) [Volum e fraction]Ordered By: Ismael Calderon on 03-13-2023 Hematocrit (Bld) [Volume fraction] 45.9 % 34.0-46.4 [facility] Hemoglobin [Mass/volume] in BloodOrdered By: Ismael Calderon on 03-13-2023 Hemoglobin (Bld) [Mass/Vol] 15.8 g/dL 11.8-15.4 [facility] Ketones Auto test strip (U) [Mass/Vol]Ordered By: Ismael Calderon on 03-13-2023 Ketones (U) [Mass/Vol] 1+ Negative Fi [facility] Laboratory - UrinalysisOrder ed By: Ismael Calderon on 03-13-2023 Hyaline casts LM Ql (Urine sed) 0-8 [LPF] 0-8 [facility] Leukocytes [#/volume] correc kitty for nucleated erythrocytes in Blood by Automated counOrdered By: Ismael Calderon on 03-13-2023 WBC corrected for nucl RBC Auto (Bld) [#/Vol] 8.3 10*3/uL 3.8-11.6 [facility] Lymphocytes Auto (Bld) [#/Vo l]Ordered By: Ismael Calderon on 03-13-2023 Lymphocytes (Bld) [#/Vol] 1.3 10*3/uL 1.00-4.8 [facility] Lymphocytes/100 WBC Auto (Bl d)Ordered By: Ismael Calderon on 03-13-2023 Lymphocytes/100 WBC (Bld) 15.9 % . [facility] MCH Auto (RBC) [Entitic mass ]Ordered By: Ismael Calderon on 03-13-2023 MCH (RBC) [Entitic mass] 31.7 pg 24.7-34.3 [facility] MCHC Auto (RBC) [Mass/Vol]Or dered By: Ismael Calderon on 03-13-2023 MCHC (RBC) [Mass/Vol] 34.4 g/dL 32.0-35.0 Fir [facility] MCV Auto (RBC) [Entitic vol] Ordered By: Ismael Calderon on 03-13-2023 MCV (RBC) [Entitic vol] 92.2 fL 80-[address] [facility] Monocyte distribution width [Entitic volume] in Blood by AutomatedOrdered By: Ismael Calderon on 03-13-2023 Monocyte distribution width Auto (Bld) [Entitic vol] 16.49 % 0.00-20.00 [facility] Monocytes Auto (Bld) [#/Vol] Ordered By: Ismael Calderon on 03-13-2023 Monocytes (Bld) [#/Vol] 0.4 10*3/uL 0.0-0.8 [facility] Monocytes/100 WBC Auto (Bld) Ordered By: Ismael Calderon on 03-13-2023 Monocytes/100 WBC (Bld) 4.2 % . F [facility] Neutrophils Auto (Bld) [#/Vo l]Ordered By: Ismael Calderon on 03-13-2023 Neutrophils (Bld) [#/Vol] 6.5 10*3/uL 1.8-7.7 [facility] Neutrophils/100 WBC Auto (Bl d)Ordered By: Ismael Calderon on 03-13-2023 Neutrophils/100 WBC (Bld) 78.1 % . [facility] Nitrite Test strip Ql (U)Ord ered By: Ismael Calderon on 03-13-2023 Nitrite Ql (U) Negative Negative [facility] No Panel InformationOrdered By: Ismael Calderon on 03-13-2023 Estimated GFR (CKD-EPI) > 60.0 mL/Min [facility] Creatinine Clearance (Chem 87.09 [facility] Nucleated erythrocytes [Pres ence] in Blood by Automated countOrdered By: Ismael Calderon on 03-13-2023 Nucleated RBC Auto Ql (Bld) 0.0 /100{WBC} 0-0.5 [facility] Opiates [Presence] in Urine by Screen methodOrdered By: Ismael Calderon on 03-13-2023 Opiates Screen Ql (U) Negative Negative [facility] Phencyclidine Screen Ql (U)O rdered By: Ismael Calderon on 03-13-2023 Phencyclidine Ql (U) Negative Negative [facility] Platelet mean volume Auto (B ld) [Entitic vol]Ordered By: Ismael Calderon on 03-13-2023 Platelet mean volume (Bld) [Entitic vol] 9.7 fL 6.3-10.7 [facility] Platelets Auto (Bld) [#/Vol] Ordered By: Ismael Calderon on 03-13-2023 Platelets (Bld) [#/Vol] 252 10*3/uL 150-450 [facility] Potassium [Moles/volume] in Serum or PlasmaOrdered By: Ismael Calderon on 03-13-2023 Potassium [Moles/Vol] 3.6 mmol/L 3.5-5.[address] [facility] Protein Auto test strip (U) [Mass/Vol]Ordered By: Ismael Calderon on 03-13-2023 Protein (U) [Mass/Vol] Negative Negative [facility] Protein [Mass/volume] in Ser um or PlasmaOrdered By: Ismael Calderon on 03-13-2023 Protein [Mass/Vol] 7.3 g/dL 6.4-8.9 [facility] RBC Auto (Bld) [#/Vol]Ordere d By: Ismael Calderon on 03-13-2023 RBC (Bld) [#/Vol] 4.98 10*6/uL 3.60-5.00 [facility] Serum or plasma albumin/glob ulin mass ratioOrdered By: Ismael Calderon on 03-13-2023 Albumin/Globulin [Mass ratio] 2.0 {ratio} [facility] Serum or plasma anion gap de terminationOrdered By: Ismael Calderon on 03-13-2023 Anion gap [Moles/Vol] 13.7 mmol/L 6.0-15.0 [facility] Sodium [Moles/volume] in Ser um or PlasmaOrdered By: Ismael Calderon on 03-13-2023 Sodium [Moles/Vol] 141 mmol/L 136-145 [facility] Specific gravity Auto test s trip (U) [Rel density]Ordered By: Ismael Calderon on 03-13-2023 Specific gravity (U) [Rel density] 1.009 1.001-1.030 [facility] Squamous epithelial cells de tection in urine sediment by light microscopyOrdered By: Ismael Calderon on 03-13-2023 Epithelial cells.squamous LM Ql (Urine sed) 5-9 [HPF] 0-2 [facility] Urea nitrogen [Mass/volume] in Serum or PlasmaOrdered By: Ismael Calderon on 03-13-2023 Urea nitrogen [Mass/Vol] 10 mg/dL 7-25 [facility] Urine bacteria detection by automated methodOrdered By: Ismael Calderon on 03-13-2023 Bacteria Auto Ql (U) None seen None Seen [facility] Urine clarity by refractomet ry automatedOrdered By: Ismael Calderon on 03-13-2023 Clarity Refractometry automated (U) Cloudy Clear [facility] Urine glucose measurement by automated test strip (mass/volume)Ordered By: Ismael Calderon on 03-13-2023 Glucose Auto test strip (U) [Mass/Vol] Normal mg/dL Normal [facility] Urine hemoglobin detection b y automated test stripOrdered By: Ismael Calderon on 03-13-2023 Hemoglobin Auto test strip Ql (U) Trace Negative [facility] Urine leukocyte esterase det ection by automated test stripOrdered By: Ismael Calderon on 03-13-2023 Leukocyte esterase Auto test strip Ql (U) Negative Negative [facility] Urobilinogen Auto test strip (U) [Mass/Vol]Ordered By: Ismael Calderon on 03-13-2023 Urobilinogen (U) [Mass/Vol] Normal mg/dL Normal [facility] WBC Auto (Bld) [#/Vol]Ordere d By: Ismael Calderon on 03-13-2023 WBC (Bld) [#/Vol] 8.3 10*3/uL 3.8-11.6 [facility] pH Auto test strip (U)Ordere d By: Ismael Calderon on 03-13-2023 pH (U) 5.5 [pH] 5.0-9.0 [facility] Alanine aminotransferase [En zymatic activity/volume] in Serum or PlasmaOrdered By: Estuardo Hardin on 03-11-2023 ALT [Catalytic activity/Vol] 14 U/L 7-52 [facility] Albumin [Mass/volume] in Ser um or Plasma by Bromocresol green (BCG) dye binding methoOrdered By: Estuardo Hardin on 03-11-2023 Albumin BCG dye [Mass/Vol] 4.6 g/dL 3.5-5.7 [facility] Alkaline phosphatase [Enzyma tic activity/volume] in Serum or PlasmaOrdered By: Estuardo Hardin on 03-11-2023 ALP [Catalytic activity/Vol] 40 U/L 34-104 [facility] Amphetamine Screen Ql (U)Ord ered By: Estuardo Hardin on 03-11-2023 Amphetamines Ql (U) Negative Negative [facility] Aspartate aminotransferase [ Enzymatic activity/volume] in Serum or PlasmaOrdered By: Estuardo Hardin on 03-11-2023 AST [Catalytic activity/Vol] 13 U/L 13-39 [facility] Automated erythrocytes count in urine sediment (number/area)Ordered By: Estuardo Hardin on 03-11-2023 RBC Auto (Urine sed) [#/Area] 0-1 [HPF] 0-4 [facility] Automated leukocytes count i n urine sediment (number/area)Ordered By: Estuardo Hardin on 03-11-2023 WBC Auto (Urine sed) [#/Area] 0-1 [HPF] 0-4 [facility] Barbiturates [Presence] in U rine by Screen methodOrdered By: Estuardo Hardin on 03-11-2023 Barbiturates Screen Ql (U) Negative Negative [facility] Basophils Auto (Bld) [#/Vol] Ordered By: Estuardo Hardin on 03-11-2023 Basophils (Bld) [#/Vol] 0.1 10*3/uL 0.0-0.2 [facility] Basophils/100 WBC Auto (Bld) Ordered By: Estuardo Hardin on 03-11-2023 Basophils/100 WBC (Bld) 1.0 % . F [facility] Benzodiazepines Screen Ql (U )Ordered By: Estuardo Hardin on 03-11-2023 Benzodiazepines Ql (U) Negative Negative [facility] Benzoylecgonine [Presence] i n Urine by Screen methodOrdered By: Estuardo Hardin on 03-11-2023 Benzoylecgonine Screen Ql (U) Negative Negative [facility] Bilirubin Test strip Ql (U)O rdered By: Estuardo Hardin on 03-11-2023 Bilirubin Ql (U) Negative Negative [facility] Bilirubin.total [Mass/volume ] in Serum or PlasmaOrdered By: Estuardo Hardin on 03-11-2023 Bilirubin [Mass/Vol] 0.5 mg/dL 0.3-1.0 [facility] Calcium [Mass/volume] in Ser um or PlasmaOrdered By: Estuardo Hardin on 03-11-2023 Calcium [Mass/Vol] 9.9 mg/dL 8.6-10.3 [facility] Cannabinoids [Presence] in U rine by Screen methodOrdered By: Estuardo Hardin on 03-11-2023 Cannabinoids Screen Ql (U) Positive Negative [facility] Comment on above: These are unconfirme d results and should not be used for legal purposes. Drug Cut-Off Concentration: AMPH 1000 ng/mL CURT 200 ng/mL MYCHAL 200 ng/mL COCM 300 ng/mL OP 300 ng/mL PCP 25 ng/mL THC 20 ng/mL Carbon dioxide, total [Moles /volume] in Serum or PlasmaOrdered By: Estuardo Hardin on 03-11-2023 CO2 [Moles/Vol] 22.8 mmol/L 21.0-31.0 [facility] Chloride [Moles/volume] in S yoav or PlasmaOrdered By: Estuardo Hardin on 03-11-2023 Chloride [Moles/Vol] 107 mmol/L 98-107 [facility] Color Auto (U)Ordered By: Tono Hardin on 03-11-2023 Color (U) Yellow Yellow [facility] Comprehensive Metabolic Pane ozzie 03-11-2023 Albumin [Mass/Vol] 4.6 g/dL Normal 3.5-5.7 [facility] Comment on above: Performed By: #### M Marco, [id number], CBC, PHOS, CMP #### [address] Albumin/Globulin [Mass ratio] 1.8 {ratio} Normal [facility] Comment on above: Performed By: #### M Marco, [id number], CBC, PHOS, CMP #### [address] ALP [Catalytic activity/Vol] 40 U/L Normal 34-104 [facility] Comment on above: Performed By: #### M Marco, [id number], CBC, PHOS, CMP #### [address] ALT [Catalytic activity/Vol] 14 U/L Normal 7-52 [facility] Comment on above: Performed By: #### M G, [id number], CBC, PHOS, CMP #### [address] Anion gap [Moles/Vol] 13.9 mmol/L Normal 6.0-15.0 [facility] Comment on above: Performed By: #### M G, [id number], CBC, PHOS, CMP #### [address] AST [Catalytic activity/Vol] 13 U/L Normal 13-39 [facility] Comment on above: Performed By: #### M G, [id number], CBC, PHOS, CMP #### [facility] [address] Bilirubin [Mass/Vol] 0.5 mg/dL Normal 0.3-1.0 [facility] Comment on above: Performed By: #### M G, [id number], CBC, PHOS, CMP #### [address] Calcium [Mass/Vol] 9.9 mg/dL Normal 8.6-10.3 [facility] Comment on above: Performed By: #### M G, [id number], CBC, PHOS, CMP #### [facility] [address] Chloride [Moles/Vol] 107 mmol/L Normal 98-107 [facility] Comment on above: Performed By: #### M G, [id number], CBC, PHOS, CMP #### [address] CO2 [Moles/Vol] 22.8 mmol/L Normal 21.0-31.0 [facility] Comment on above: Performed By: #### M G, [id number], CBC, PHOS, CMP #### [address] Creatinine [Mass/Vol] 0.88 mg/dL Normal 0.60-1.[address] [facility] Comment on above: Performed By: #### M G, [id number], CBC, PHOS, CMP #### [address] Creatinine Clr Calc Pharmacy 82.61 Normal [facility] Comment on above: Result Comment: PERF ORMED BY: [place] [address] PATHOLOGIST CARDIOPULMONARY PHYSICAL THERAPIST LUCIA WEBSTER M.D. Performed By: #### M G, [id number], CBC, PHOS, CMP #### [address] GFR/1.73 sq M.predicted MDRD (S/P/Bld) [Vol rate/Area] mL/min/{1.73_m2} Normal [facility] Comment on above: Performed By: #### M Marco, [id number], CBC, PHOS, CMP #### [facility] [address] Globulin (S) [Mass/Vol] 2.5 g/dL Normal F [facility] Comment on above: Performed By: #### M G, [id number], CBC, PHOS, CMP #### [facility] [address] Glucose [Mass/Vol] 88 mg/dL Normal 70-100 [facility] Comment on above: Result Comment: [facility] Glucose Reference Range is dependent on time and content of last meal. Glucose of more than 200 mg/dL in a nonstressed, ambulatory subject supports the diagnosis of Diabetes Mellitus. ADA recommended reference range Performed By: #### M Marco, [id number], CBC, PHOS, CMP #### [facility] [address] Potassium [Moles/Vol] 3.7 mmol/L Normal 3.5-5.[address] [facility] Comment on above: Performed By: #### M Marco, [id number], CBC, PHOS, CMP #### [facility] [address] Protein [Mass/Vol] 7.1 g/dL Normal 6.4-8.9 [facility] Comment on above: Performed By: #### M G, [id number], CBC, PHOS, CMP #### [facility] [address] [place] [address] [place] Sodium [Moles/Vol] 140 mmol/L Normal 136-145 [facility] Comment on above: Performed By: #### M G, [id number], CBC, PHOS, CMP #### [facility] [address] Urea nitrogen [Mass/Vol] 6 mg/dL Low 7-25 [facility] Comment on above: Performed By: #### M G, [id number], CBC, PHOS, CMP #### [facility] [address] [place] [id number] [place] Creatinine [Mass/volume] in Serum or PlasmaOrdered By: Estuardo Hardin on 03-11-2023 Creatinine [Mass/Vol] 0.88 mg/dL 0.60-1.[address] [facility] Dipstick and Microscopicon 1 Appearance (U) Clear Normal Clear [facility] Comment on above: Order Comment: Name Collection Type:: Clean-Voided Midstream Performed By: #### C BC #### [facility] [address] [place] [address] [place] Bacteria,Urine None Seen Normal None Seen [facility] Comment on above: Order Comment: Name Collection Type:: Clean-Voided Midstream Performed By: #### C BC #### [facility] [address] [place] [id number] [place] Bilirubin,Urine Negative Normal Negative [facility] Comment on above: Order Comment: Name Collection Type:: Clean-Voided Midstream Performed By: #### C BC #### [facility] [address] [place] [address] [place] Color (U) Yellow Normal Yellow [facility] Comment on above: Order Comment: Name Collection Type:: Clean-Voided Midstream Performed By: #### C BC #### [facility] [address] [place] [address] [place] Glucose Ql (U) Normal Normal Normal [facility] Comment on above: Order Comment: Name Collection Type:: Clean-Voided Midstream Performed By: #### C BC #### [facility] [address] [place] [address] [place] Hyaline Casts,Urine 0-8 Normal 0-8 [facility] Comment on above: Order Comment: Name Collection Type:: Clean-Voided Midstream Performed By: #### C BC #### [facility] [address] [place] [address] [place] Ketones Ql (U) Negative Normal Negative [facility] Comment on above: Order Comment: Name Collection Type:: Clean-Voided Midstream Performed By: #### C BC #### [address] Leukocyte esterase Test strip Ql (U) Negative Normal Negative [facility] Comment on above: Order Comment: Name Collection Type:: Clean-Voided Midstream Performed By: #### C BC #### [place] [address] [place] Nitrite,Urine Negative Normal Negative [facility] Comment on above: Order Comment: Name Collection Type:: Clean-Voided Midstream Performed By: #### C BC #### [address] Occult Blood,Urine 2+ High Negative [facility] Comment on above: Order Comment: Name Collection Type:: Clean-Voided Midstream Performed By: #### C BC #### [address] pH (U) 6.0 [pH] Normal 5.0-9.0 [facility] Comment on above: Order Comment: Name Collection Type:: Clean-Voided Midstream Performed By: #### C BC #### [address] Protein,Urine Negative Normal Negative [facility] Comment on above: Order Comment: Name Collection Type:: Clean-Voided Midstream Performed By: #### C BC #### [address] RBC LM.HPF (Urine sed) [#/Area] 0 /[HPF] Normal 0-4 [facility] Comment on above: Order Comment: Name Collection Type:: Clean-Voided Midstream Performed By: #### C BC #### [place] [address] [place] Specificy [place],Urine 1.010 Normal 1.001-1.030 [facility] Comment on above: Order Comment: Name Collection Type:: Clean-Voided Midstream Performed By: #### C BC #### [place] [address] [place] Squamous Epithelial Cell,Urine 3-4 High 0-2 [facility] Comment on above: Order Comment: Name Collection Type:: Clean-Voided Midstream Performed By: #### C BC #### [address] Urobilinogen,Urine Normal Normal Normal [facility] Comment on above: Order Comment: Name Collection Type:: Clean-Voided Midstream Performed By: #### C BC #### [address] WBC LM.HPF (Urine sed) [#/Area] 0 /[HPF] Normal 0-4 [facility] Comment on above: Order Comment: Name Collection Type:: Clean-Voided Midstream Performed By: #### C BC #### [address] Drug Screen,Urineon 03-11-20 Amphetamine Screen,Urine Negative Normal Negative [facility] Comment on above: Performed By: #### C BC #### [address] Barbiturate Screen,Urine Negative Normal Negative [facility] Comment on above: Performed By: #### C BC #### [address] Benzodiazepines Screen,Urine Negative Normal Negative [facility] Comment on above: Performed By: #### C BC #### [address] Cannabinoid Screen,Urine Positive High Negative [facility] Comment on above: Result Comment: Thes e are unconfirmed results and should not be used for legal purposes. Drug Cut-Off Concentration: AMPH 1000 ng/mL CURT 200 ng/mL MYCHAL 200 ng/mL COCM 300 ng/mL OP 300 ng/mL PCP 25 ng/mL THC 20 ng/mL PERFORMED BY: [place] [address] PATHOLOGIST CARDIOPULMONARY PHYSICAL THERAPIST LUCIA WEBSTER M.D. Performed By: #### C BC #### [address] Cocaine Screen,Urine Negative Normal Negative [facility] Comment on above: Performed By: #### C BC #### [facility] [address] Opiate Screen,Urine Negative Normal Negative [facility] Comment on above: Performed By: #### C BC #### [facility] [address] Phencyclidine Screen,Urine Negative Normal Negative [facility] Comment on above: Performed By: #### C BC #### [facility] [address] Eosinophils Auto (Bld) [#/Vo l]Ordered By: Estuardo Hardin on 03-11-2023 Eosinophils (Bld) [#/Vol] 0.1 10*3/uL 0.0-0.45 [facility] Eosinophils/100 WBC Auto (Bl d)Ordered By: Estuardo Hardin on 03-11-2023 Eosinophils/100 WBC (Bld) 1.5 % . [facility] Erythrocyte distribution wid th Auto (RBC) [Ratio]Ordered By: Estuardo Hardin on 03-11-2023 Erythrocyte distribution width (RBC) [Ratio] 14.2 % 11.9-15.3 [facility] Ethanol [Mass/volume] in Ser um or PlasmaOrdered By: Estuardo Hardin on 03-11-2023 Ethanol [Mass/Vol] mg/dL [facility] Ethanol [Mass/Vol] TNP [facility] Comment on above: Test not performed Ethyl Alcohol Profileon 02-11 Ethanol [Mass/Vol] mg/dL Normal [facility] Comment on above: Performed By: #### M G, [id number], CBC, PHOS, CMP #### [facility] [address] [place] [address] Percent Ethanol Not performed Normal [facility] Comment on above: Result Comment: PERF ORMED BY: [place] [address] PATHOLOGIST CARDIOPULMONARY PHYSICAL THERAPIST LUCIA WEBSTER M.D. Performed By: #### M G, [id number], CBC, PHOS, CMP #### [facility] [address] Globulin Calc (S) [Mass/Vol] Ordered By: Estuardo Hardin on 03-11-2023 Globulin (S) [Mass/Vol] 2.5 g/dL F [facility] Glucose [Mass/volume] in Ser um or PlasmaOrdered By: Estuardo Hardin on 03-11-2023 Glucose [Mass/Vol] 88 mg/dL 70-100 [facility] Comment on above: ADA recommended refe rence rangeRandom Glucose Reference Range is dependent on time and content of last meal. Glucose of more than 200 mg/dL in a nonstressed, ambulatory subject supports the diagnosis of Diabetes Mellitus. HCG ( test) IA.rapi d Ql (U)Ordered By: Estuardo Hardin on 03-11-2023 HCG ( test) Ql (U) Negative [facility] HCG,Urineon 03-11-2023 Beta HCG ( test) Ql (U) Negative Normal [facility] Comment on above: Order Comment: Name Collection Type:: Clean-Voided Midstream Result Comment: PERF ORMED BY: [place] [address] PATHOLOGIST CARDIOPULMONARY PHYSICAL THERAPIST LUCIA WEBSTER M.D. Performed By: #### C BC #### [facility] [address] [place] [address] Hematocrit Auto (Bld) [Volum e fraction]Ordered By: Estuardo Hardin on 03-11-2023 Hematocrit (Bld) [Volume fraction] 44.6 % 34.0-46.4 [facility] Hemoglobin [Mass/volume] in BloodOrdered By: Estuardo Hardin on 03-11-2023 Hemoglobin (Bld) [Mass/Vol] 15.2 g/dL 11.8-15.4 [facility] Ketones Auto test strip (U) [Mass/Vol]Ordered By: Estuardo Hardin on 03-11-2023 Ketones (U) [Mass/Vol] Negative Negative [facility] - UrinalysisOrder ed By: Estuardo Hardin on 03-11-2023 Hyaline casts LM Ql (Urine sed) 0-8 [LPF] 0-8 [facility] Leukocytes [#/volume] correc kitty for nucleated erythrocytes in Blood by Automated counOrdered By: Estuardo Hardin on 03-11-2023 WBC corrected for nucl RBC Auto (Bld) [#/Vol] 8.4 10*3/uL 3.8-11.6 [facility] Lymphocytes Auto (Bld) [#/Vo l]Ordered By: Estuardo Hardin on 03-11-2023 Lymphocytes (Bld) [#/Vol] 1.3 10*3/uL 1.00-4.8 [facility] Lymphocytes/100 WBC Auto (Bl d)Ordered By: Estuardo Hardin on 03-11-2023 Lymphocytes/100 WBC (Bld) 15.9 % . [facility] MCH Auto (RBC) [Entitic mass ]Ordered By: Estuardo Hardin on 03-11-2023 MCH (RBC) [Entitic mass] 31.6 pg 24.7-34.3 [facility] MCHC Auto (RBC) [Mass/Vol]Or dered By: Estuardo Hardin on 03-11-2023 MCHC (RBC) [Mass/Vol] 34.1 g/dL 32.0-35.0 Fir [facility] MCV Auto (RBC) [Entitic vol] Ordered By: Estuardo Hardin on 03-11-2023 MCV (RBC) [Entitic vol] 92.7 fL 80-[address] [facility] Monocyte distribution width [Entitic volume] in Blood by AutomatedOrdered By: Estuardo Hardin on 03-11-2023 Monocyte distribution width Auto (Bld) [Entitic vol] 14.28 % 0.00-20.00 [facility] Monocytes Auto (Bld) [#/Vol] Ordered By: Estuardo Hardin on 03-11-2023 Monocytes (Bld) [#/Vol] 0.4 10*3/uL 0.0-0.8 [facility] Monocytes/100 WBC Auto (Bld) Ordered By: Estuardo Hardin on 03-11-2023 Monocytes/100 WBC (Bld) 4.7 % . F [facility] Neutrophils Auto (Bld) [#/Vo l]Ordered By: Estuardo Hardin on 03-11-2023 Neutrophils (Bld) [#/Vol] 6.5 10*3/uL 1.8-7.7 [facility] Neutrophils/100 WBC Auto (Bl d)Ordered By: Estuardo Hardin on 03-11-2023 Neutrophils/100 WBC (Bld) 76.9 % . [facility] Nitrite Test strip Ql (U)Ord ered By: Estuardo Hardin on 03-11-2023 Nitrite Ql (U) Negative Negative [facility] No Panel InformationOrdered By: Estuardo Hardin on 03-11-2023 Estimated GFR (CKD-EPI) > 60.0 mL/Min [facility] Creatinine Clearance (Chem 82.61 [facility] Nucleated erythrocytes [Pres ence] in Blood by Automated countOrdered By: Estuardo Hardin on 03-11-2023 Nucleated RBC Auto Ql (Bld) 0.1 /100{WBC} 0-0.5 [facility] Opiates [Presence] in Urine by Screen methodOrdered By: Estuardo Hardin on 03-11-2023 Opiates Screen Ql (U) Negative Negative [facility] Phencyclidine Screen Ql (U)O rdered By: Estuardo Hardin on 03-11-2023 Phencyclidine Ql (U) Negative Negative [facility] Platelet adequacy [Presence] in Blood by Light microscopyOrdered By: Estuardo Hardin on 03-11-2023 Platelets LM Ql (Bld) Normal Normal [facility] Platelet mean volume Auto (B ld) [Entitic vol]Ordered By: Estuardo Hardin on 03-11-2023 Platelet mean volume (Bld) [Entitic vol] 10.0 fL 6.3-10.7 [facility] Platelet morphology finding [Identifier] in BloodOrdered By: Estuardo Hardin on 03-11-2023 Platelet morphology finding Nom (Bld) Normal Normal [facility] Platelets Auto (Bld) [#/Vol] Ordered By: Estuardo Hardin on 03-11-2023 Platelets (Bld) [#/Vol] 223 10*3/uL 150-450 [facility] Potassium [Moles/volume] in Serum or PlasmaOrdered By: Estuardo Hardin on 03-11-2023 Potassium [Moles/Vol] 3.7 mmol/L 3.5-5.[address] [facility] Protein Auto test strip (U) [Mass/Vol]Ordered By: Estuardo Hardin on 03-11-2023 Protein (U) [Mass/Vol] Negative Negative [facility] Protein [Mass/volume] in Ser um or PlasmaOrdered By: Estuardo Hardin on 03-11-2023 Protein [Mass/Vol] 7.1 g/dL 6.4-8.9 [facility] RBC Auto (Bld) [#/Vol]Ordere d By: Estuardo Hardin on 03-11-2023 RBC (Bld) [#/Vol] 4.81 10*6/uL 3.60-5.00 [facility] RBC morphologyOrdered By: Tono Hardin on 03-11-2023 RBC morphology finding Nom (Bld) Normal Normal [facility] Scan and CBCon 03-11-2023 Basophils (Bld) [#/Vol] 0.1 10*3/uL Normal 0.0-0.2 [facility] Comment on above: Performed By: #### M G, [id number], CBC, PHOS, CMP #### [facility] [address] [place] [address] [place] Basophils/100 WBC (Bld) 1.0 % Normal . F [facility] Comment on above: Performed By: #### M G, [id number], CBC, PHOS, CMP #### [facility] [address] [place] [address] [place] Eosinophils (Bld) [#/Vol] 0.1 10*3/uL Normal 0.0-0.45 [facility] Comment on above: Performed By: #### M G, [id number], CBC, PHOS, CMP #### [facility] [address] [place] [phone] [place] Eosinophils/100 WBC (Bld) 1.5 % Normal . [facility] Comment on above: Performed By: #### M G, [id number], CBC, PHOS, CMP #### [address] Erythrocyte distribution width (RBC) [Ratio] 14.2 % Normal 11.9-15.3 [facility] Comment on above: Performed By: #### M G, [id number], CBC, PHOS, CMP #### [address] Hematocrit (Bld) [Volume fraction] 44.6 % Normal 34.0-46.4 [facility] Comment on above: Performed By: #### M G, [id number], CBC, PHOS, CMP #### [address] Hemoglobin (Bld) [Mass/Vol] 15.2 g/dL Normal 11.8-15.4 [facility] Comment on above: Performed By: #### M G, [id number], CBC, PHOS, CMP #### [address] Lymphocytes (Bld) [#/Vol] 1.3 10*3/uL Normal 1.00-4.8 [facility] Comment on above: Performed By: #### M G, [id number], CBC, PHOS, CMP #### [address] Lymphocytes/100 WBC (Bld) 15.9 % Normal . [facility] Comment on above: Performed By: #### M G, [id number], CBC, PHOS, CMP #### [address] MCH (RBC) [Entitic mass] 31.6 pg Normal 24.7-34.3 [facility] Comment on above: Performed By: #### M G, [id number], CBC, PHOS, CMP #### [address] MCV (RBC) [Entitic vol] 92.7 fL Normal 80-[address] [facility] Comment on above: Performed By: #### M G, [id number], CBC, PHOS, CMP #### [address] Mean Corpuscular HGB Conc 34.1 g/dL Normal 32.0-35.0 [facility] Comment on above: Performed By: #### M G, [id number], CBC, PHOS, CMP #### [address] Monocytes (Bld) [#/Vol] 0.4 10*3/uL Normal 0.0-0.8 [facility] Comment on above: Performed By: #### M G, [id number], CBC, PHOS, CMP #### [address] Monocytes/100 WBC (Bld) 14.28 % Normal 0.00-20.00 [facility] Comment on above: Performed By: #### M G, [id number], CBC, PHOS, CMP #### [address] Monocytes/100 WBC (Bld) 4.7 % Normal . F [facility] Comment on above: Performed By: #### M G, [id number], CBC, PHOS, CMP #### [address] Neutrophils (Bld) [#/Vol] 6.5 10*3/uL Normal 1.8-7.7 [facility] Comment on above: Performed By: #### M G, [id number], CBC, PHOS, CMP #### [address] Neutrophils/100 WBC (Bld) 76.9 % Normal . [facility] Comment on above: Performed By: #### M G, [id number], CBC, PHOS, CMP #### [address] NRBC% 0.1 /100{WBC} Normal 0-0.5 [facility] Comment on above: Performed By: #### M G, [id number], CBC, PHOS, CMP #### [address] Platelet Estimate Normal Normal Normal [facility] Comment on above: Performed By: #### M G, [id number], CBC, PHOS, CMP #### [address] Platelet mean volume (Bld) [Entitic vol] 10.0 fL Normal 6.3-10.7 [facility] Comment on above: Performed By: #### M G, [id number], CBC, PHOS, CMP #### [address] Platelet Morphology Normal Normal Normal [facility] Comment on above: Result Comment: PERF ORMED BY: [place] [address] PATHOLOGIST CARDIOPULMONARY PHYSICAL THERAPIST LUCIA WEBSTER M.D. Performed By: #### M G, [id number], CBC, PHOS, CMP #### [address] Platelets (Bld) [#/Vol] 223 10*3/uL Normal 150-450 [facility] Comment on above: Performed By: #### M G, [id number], CBC, PHOS, CMP #### [address] RBC (Bld) [#/Vol] 4.81 10*6/uL Normal 3.60-5.00 [facility] Comment on above: Performed By: #### M G, [id number], CBC, PHOS, CMP #### [address] RBC morphology finding Nom (Bld) Normal Normal Normal [facility] Comment on above: Performed By: #### M G, [id number], CBC, PHOS, CMP #### [address] WBC (Bld) [#/Vol] 8.4 10*3/uL Normal 3.8-11.6 [facility] Comment on above: Performed By: #### M G, [id number], CBC, PHOS, CMP #### [facility] [address] Serum or plasma albumin/glob ulin mass ratioOrdered By: Estuardo Hardin on 03-11-2023 Albumin/Globulin [Mass ratio] 1.8 {ratio} [facility] Serum or plasma anion gap de terminationOrdered By: Estuardo Hardin on 03-11-2023 Anion gap [Moles/Vol] 13.9 mmol/L 6.0-15.0 [facility] Sodium [Moles/volume] in Ser um or PlasmaOrdered By: Estuardo Hardin on 03-11-2023 Sodium [Moles/Vol] 140 mmol/L 136-145 [facility] Specific gravity Auto test s trip (U) [Rel density]Ordered By: Estuardo Hardin on 03-11-2023 Specific gravity (U) [Rel density] 1.010 1.001-1.030 [facility] Squamous epithelial cells de tection in urine sediment by light microscopyOrdered By: Estuardo Hardin on 03-11-2023 Epithelial cells.squamous LM Ql (Urine sed) 3-4 [HPF] 0-2 [facility] Urea nitrogen [Mass/volume] in Serum or PlasmaOrdered By: Estuardo Hadrin on 03-11-2023 Urea nitrogen [Mass/Vol] 6 mg/dL 7-25 [facility] Urine bacteria detection by automated methodOrdered By: Estuardo Hardin on 03-11-2023 Bacteria Auto Ql (U) None seen None Seen [facility] Urine clarity by refractomet ry automatedOrdered By: Estuardo Hardin on 03-11-2023 Clarity Refractometry automated (U) Clear Clear [facility] Urine glucose measurement by automated test strip (mass/volume)Ordered By: Estuardo Hardin on 03-11-2023 Glucose Auto test strip (U) [Mass/Vol] Normal mg/dL Normal [facility] Urine hemoglobin detection b y automated test stripOrdered By: Estuardo Hardin on 03-11-2023 Hemoglobin Auto test strip Ql (U) 2+ Negative [facility] Urine leukocyte esterase det ection by automated test stripOrdered By: Estuardo Hardin on 03-11-2023 Leukocyte esterase Auto test strip Ql (U) Negative Negative [facility] Urobilinogen Auto test strip (U) [Mass/Vol]Ordered By: Estuardo Hardin on 03-11-2023 Urobilinogen (U) [Mass/Vol] Normal mg/dL Normal [facility] WBC Auto (Bld) [#/Vol]Ordere d By: Estuardo Hardin on 03-11-2023 WBC (Bld) [#/Vol] 8.4 10*3/uL 3.8-11.6 [facility] pH Auto test strip (U)Ordere d By: Estuardo Hardin on 03-11-2023 pH (U) 6.0 [pH] 5.0-9.[address] [facility] [address] abdomen pelvis w conon CT abdomen pelvis w con [facility] [place] [address] CT Scan Report Signed Patient: Roshan Domínguez MR#: [id number] : 1990 Acct:[id number] Age/Sex: 32 / F ADM Date: 01/22/23 Loc: ER Room: Type: [facility] ER Attending Dr: Copies to: Erin Langston Jr, MD Ordering Provider: Erin Langston Jr, MD Date of Service: 01/23/23 CT/CT abdomen pelvis w con: abd pain, unable to eat CT ABDOMEN AND PELVIS WITH CONTRAST COMPARISON: 10/14/2022 CLINICAL DATA: Decreased appetite, abdominal pain with nausea, vomiting and diarrhea. Spiral images were obtained through the abdomen and pelvis following 90 mL Isovue-300. This CT exam was performed using one or more following dose reduction techniques: Automated exposure control, adjustment of the mA and/or kV according to patient size, or use of iterative reconstruction technique. Limited cuts through the lung bases show no contributory findings. No calcified gallstones are present though there is a 6 mm nondependent nodular focus near the fundus where a polyp is suspected. Mild fatty infiltration of the liver is possible. The spleen, pancreas and adrenal glands show no acute findings. There are symmetric bilateral nephrograms without hydronephrosis. The abdominal aorta is normal caliber. There are tiny lymph nodes. No ascites is seen. The small bowel loops are not distended. There is air and a small amount of fluid at the ascending colon. The left colon is underdistended. Subtle levoscoliotic curvature is present. 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 There is bilateral L5 spondylolysis with a associated lumbosacral spondylolisthesis, also seen previously. Images through the pelvis show normal caliber small bowel loops. No appendiceal inflammation is identified. The distal colon is is not well distended. No diverticular disease is seen. The reproductive organs are age-appropriate. There is a dominant follicle on the right. The bladder is not well distended for assessment. There is a trace amount of free fluid at posterior cul-de-sac that is probably physiologic. CT/CT abdomen pelvis w con IMPRESSION: SUSPECTED SMALL FUNDAL GALLBLADDER POLYP. POSSIBLE FATTY LIVER. NO BOWEL OR URINARY TRACT OBSTRUCTION. NO OTHER ACUTE FINDINGS. Impression dictated by: Uma Mercer M.D.01/23/2023 8:59 AM Dictation Location: [place] [address] Transcribed By: [facility] 01/23/23858 Dictated By: Uma Mercer MD 01/23/23 0853 Signed By: 01/23/23 0859 Normal [facility] Alanine aminotransferase [En zymatic activity/volume] in Serum or PlasmaOrdered By: Erin Langston on 01-22-2023 ALT [Catalytic activity/Vol] 13 U/L 7-52 [facility] Albumin [Mass/volume] in Ser um or Plasma by Bromocresol green (BCG) dye binding methoOrdered By: Erin Langston on 01-22-2023 Albumin BCG dye [Mass/Vol] 4.8 g/dL 3.5-5.7 [facility] Alkaline phosphatase [Enzyma tic activity/volume] in Serum or PlasmaOrdered By: Erin Langston on 01-22-2023 ALP [Catalytic activity/Vol] 49 U/L 34-104 [facility] Aspartate aminotransferase [ Enzymatic activity/volume] in Serum or PlasmaOrdered By: Erin Langston on 01-22-2023 AST [Catalytic activity/Vol] 15 U/L 13-39 [facility] Automated erythrocytes count in urine sediment (number/area)Ordered By: Erin Langston on 01-22-2023 RBC Auto (Urine sed) [#/Area] 10-19 [HPF] 0-4 [facility] Automated leukocytes count i n urine sediment (number/area)Ordered By: Erin Langston on 01-22-2023 WBC Auto (Urine sed) [#/Area] 3-4 [HPF] 0-4 [facility] Automated urine sediment shyam cium oxalate crystal count by microscopy (number/high powOrdered By: Erin Langston on 01-22-2023 Calcium oxalate crystals LM.HPF (Urine sed) [#/Area] 3+ [HPF] [facility] Basophils Auto (Bld) [#/Vol] Ordered By: Erin Langston on 01-22-2023 Basophils (Bld) [#/Vol] 0.0 10*3/uL 0.0-0.2 [facility] Basophils/100 WBC Auto (Bld) Ordered By: Erin Langston on 01-22-2023 Basophils/100 WBC (Bld) 0.5 % . F [facility] Bilirubin Test strip Ql (U)O rdered By: Erin Langston on 01-22-2023 Bilirubin Ql (U) Negative Negative [facility] Bilirubin.total [Mass/volume ] in Serum or PlasmaOrdered By: Erin Langston on 01-22-2023 Bilirubin [Mass/Vol] 0.5 mg/dL 0.3-1.0 [facility] Calcium [Mass/volume] in Ser um or PlasmaOrdered By: Erin Langston on 01-22-2023 Calcium [Mass/Vol] 9.5 mg/dL 8.6-10.3 [facility] Carbon dioxide, total [Moles /volume] in Serum or PlasmaOrdered By: Erin Langston on 01-22-2023 CO2 [Moles/Vol] 20.2 mmol/L 21.0-31.0 [facility] Chloride [Moles/volume] in S yoav or PlasmaOrdered By: Erin Langston on 01-22-2023 Chloride [Moles/Vol] 104 mmol/L 98-107 [facility] Color Auto (U)Ordered By: Rob naveen Langston on 01-22-2023 Color (U) Yellow Yellow [facility] Complete Blood Count Auto Di ffon 01-22-2023 Basophils (Bld) [#/Vol] 0.0 10*3/uL Normal 0.0-0.2 [facility] Comment on above: Result Comment: PERF ORMED BY: [place] [address] PATHOLOGIST CARDIOPULMONARY PHYSICAL THERAPIST LUCIA WEBSTER M.D. Performed By: #### C BC #### [address] Basophils/100 WBC (Bld) 0.5 % Normal . F [facility] Comment on above: Performed By: #### C BC #### [address] Eosinophils (Bld) [#/Vol] 0.0 10*3/uL Normal 0.0-0.45 [facility] Comment on above: Performed By: #### C BC #### [address] Eosinophils/100 WBC (Bld) 0.3 % Normal . [facility] Comment on above: Performed By: #### C BC #### [address] Erythrocyte distribution width (RBC) [Ratio] 12.7 % Normal 11.9-15.3 [facility] Comment on above: Performed By: #### C BC #### [address] Hematocrit (Bld) [Volume fraction] 46.6 % High 34.0-46.4 [facility] Comment on above: Performed By: #### C BC #### [address] Hemoglobin (Bld) [Mass/Vol] 15.9 g/dL High 11.8-15.4 [facility] Comment on above: Performed By: #### C BC #### [address] [place] [address] [place] Lymphocytes (Bld) [#/Vol] 1.3 10*3/uL Normal 1.00-4.8 [facility] Comment on above: Performed By: #### C BC #### [address] Lymphocytes/100 WBC (Bld) 15.4 % Normal . [facility] Comment on above: Performed By: #### C BC #### [address] MCH (RBC) [Entitic mass] 31.3 pg Normal 24.7-34.3 [facility] Comment on above: Performed By: #### C BC #### [address] MCV (RBC) [Entitic vol] 91.7 fL Normal 80-[address] [facility] Comment on above: Performed By: #### C BC #### [address] Mean Corpuscular HGB Conc 34.1 g/dL Normal 32.0-35.0 [facility] Comment on above: Performed By: #### C BC #### [address] Monocytes (Bld) [#/Vol] 0.2 10*3/uL Normal 0.0-0.8 [facility] Comment on above: Performed By: #### C BC #### [address] Monocytes/100 WBC (Bld) 14.54 % Normal 0.00-20.[address] [facility] Comment on above: Performed By: #### C BC #### [address] Monocytes/100 WBC (Bld) 2.8 % Normal . F [facility] Comment on above: Performed By: #### C BC #### [address] Neutrophils (Bld) [#/Vol] 6.9 10*3/uL Normal 1.8-7.7 [facility] Comment on above: Performed By: #### C BC #### [facility] [address] Neutrophils/100 WBC (Bld) 81.0 % Normal . [facility] Comment on above: Performed By: #### C BC #### [facility] [address] NRBC% 0.1 /100{WBC} Normal 0-0.5 [facility] Comment on above: Performed By: #### C BC #### [facility] [address] Platelet mean volume (Bld) [Entitic vol] 10.2 fL Normal 6.3-10.7 [facility] Comment on above: Performed By: #### C BC #### [address] Platelets (Bld) [#/Vol] 292 10*3/uL Normal 150-450 [facility] Comment on above: Performed By: #### C BC #### [address] RBC (Bld) [#/Vol] 5.08 10*6/uL High 3.60-5.00 [facility] Comment on above: Performed By: #### C BC #### [address] WBC (Bld) [#/Vol] 8.5 10*3/uL Normal 3.8-11.6 [facility] Comment on above: Performed By: #### C BC #### [address] Comprehensive Metabolic Pane ozzie 01-22-2023 Albumin [Mass/Vol] 4.8 g/dL Normal 3.5-5.7 [facility] Comment on above: Performed By: #### M G, [id number], CBC, PHOS, CMP #### [facility] [address] Albumin/Globulin [Mass ratio] 1.6 {ratio} Normal [facility] Comment on above: Performed By: #### M Marco, [id number], CBC, PHOS, CMP #### [address] ALP [Catalytic activity/Vol] 49 U/L Normal 34-104 [facility] Comment on above: Performed By: #### M G, [id number], CBC, PHOS, CMP #### [address] ALT [Catalytic activity/Vol] 13 U/L Normal 7-52 [facility] Comment on above: Performed By: #### M Marco, [id number], CBC, PHOS, CMP #### [address] Anion gap [Moles/Vol] 21.4 mmol/L High 6.0-15.0 [facility] Comment on above: Performed By: #### M Marco, [id number], CBC, PHOS, CMP #### [facility] [address] [place] [address] AST [Catalytic activity/Vol] 15 U/L Normal 13-39 [facility] Comment on above: Performed By: #### M G, [id number], CBC, PHOS, CMP #### [facility] [address] [place] [address] Bilirubin [Mass/Vol] 0.5 mg/dL Normal 0.3-1.0 [facility] Comment on above: Performed By: #### M G, [id number], CBC, PHOS, CMP #### [facility] [address] [place] [address] Calcium [Mass/Vol] 9.5 mg/dL Normal 8.6-10.3 [facility] Comment on above: Performed By: #### M G, [id number], CBC, PHOS, CMP #### [facility] [address] [place] [address] [place] Chloride [Moles/Vol] 104 mmol/L Normal 98-107 [facility] Comment on above: Performed By: #### M G, [id number], CBC, PHOS, CMP #### [facility] [address] CO2 [Moles/Vol] 20.2 mmol/L Low 21.0-31.0 [facility] Comment on above: Performed By: #### M G, [id number], CBC, PHOS, CMP #### [facility] [address] Creatinine [Mass/Vol] 0.92 mg/dL Normal 0.60-1.[address] [facility] Comment on above: Performed By: #### M G, [id number], CBC, PHOS, CMP #### [facility] [address] Creatinine Clr Calc Pharmacy 81.98 [facility] Comment on above: Performed By: #### M G, [id number], CBC, PHOS, CMP #### [facility] [address] GFR/1.73 sq M.predicted MDRD (S/P/Bld) [Vol rate/Area] mL/min/{1.73_m2} [facility] Comment on above: Performed By: #### M G, [id number], CBC, PHOS, CMP #### [facility] [address] Globulin (S) [Mass/Vol] 3.0 g/dL Normal [facility] Comment on above: Performed By: #### M G, [id number], CBC, PHOS, CMP #### [facility] [address] Glucose [Mass/Vol] 81 mg/dL Normal 70-100 [facility] Comment on above: Result Comment: [facility] Glucose Reference Range is dependent on time and content of last meal. Glucose of more than 200 mg/dL in a nonstressed, ambulatory subject supports the diagnosis of Diabetes Mellitus. ADA recommended reference range Performed By: #### M G, [id number], CBC, PHOS, CMP #### [facility] [address] [place] [address] Potassium [Moles/Vol] 3.6 mmol/L Normal 3.5-5.[address] [facility] Comment on above: Performed By: #### M G, [id number], CBC, PHOS, CMP #### [address] Protein [Mass/Vol] 7.8 g/dL Normal 6.4-8.9 [facility] Comment on above: Performed By: #### M G, [id number], CBC, PHOS, CMP #### [address] Sodium [Moles/Vol] 142 mmol/L Normal 136-145 [facility] Comment on above: Performed By: #### M G, [id number], CBC, PHOS, CMP #### [address] Urea nitrogen [Mass/Vol] 10 mg/dL Normal 7-25 [facility] Comment on above: Performed By: #### M G, [id number], CBC, PHOS, CMP #### [address] Creatinine [Mass/volume] in Serum or PlasmaOrdered By: Erin Langston on 01-22-2023 Creatinine [Mass/Vol] 0.92 mg/dL 0.60-1.[address] [facility] Dipstick and Microscopicon 0 01-22-2023 Appearance (U) Cloudy Critically abnormal [facility] Comment on above: Order Comment: Reaso n for Exam Anorexia nervosa, binge eating/purging type Performed By: #### M G, [id number], CBC, PHOS, CMP #### [address] Bacteria,Urine 1+ High None Seen [facility] Comment on above: Order Comment: Reaso n for Exam Anorexia nervosa, binge eating/purging type Performed By: #### M G, [id number], CBC, PHOS, CMP #### [facility] [address] [place] [address] [place] Bilirubin,Urine Negative Normal Negative [facility] Comment on above: Order Comment: Reaso n for Exam Anorexia nervosa, binge eating/purging type Performed By: #### M G, [id number], CBC, PHOS, CMP #### [facility] [address] [place] [address] Calcium Oxalate Crystals,Urine 3+ Normal [facility] Comment on above: Order Comment: Reaso n for Exam Anorexia nervosa, binge eating/purging type Performed By: #### M G, [id number], CBC, PHOS, CMP #### [address] Color (U) Yellow Normal Yellow [facility] Comment on above: Order Comment: Reaso n for Exam Anorexia nervosa, binge eating/purging type Performed By: #### M G, [id number], CBC, PHOS, CMP #### [facility] [address] [place] [address] Glucose Ql (U) Normal Normal Normal [facility] Comment on above: Order Comment: Reaso n for Exam Anorexia nervosa, binge eating/purging type Performed By: #### M G, [id number], CBC, PHOS, CMP #### [facility] [address] [place] [address] Hyaline Casts,Urine 0-8 Normal 0-8 [facility] Comment on above: Order Comment: Reaso n for Exam Anorexia nervosa, binge eating/purging type Performed By: #### M G, [id number], CBC, PHOS, CMP #### [facility] [address] [place] [address] Ketones Ql (U) 4+ High Negative [facility] Comment on above: Order Comment: Reaso n for Exam Anorexia nervosa, binge eating/purging type Performed By: #### M G, [id number], CBC, PHOS, CMP #### [address] Leukocyte esterase Test strip Ql (U) Negative Normal Negative [facility] Comment on above: Order Comment: Reaso n for Exam Anorexia nervosa, binge eating/purging type Performed By: #### M G, [id number], CBC, PHOS, CMP #### [facility] [address] [place] [address] Nitrite,Urine Negative Normal Negative [facility] Comment on above: Order Comment: Reaso n for Exam Anorexia nervosa, binge eating/purging type Performed By: #### M G, [id number], CBC, PHOS, CMP #### [facility] [address] [place] [address] Occult Blood,Urine Negative Normal Negative [facility] Comment on above: Order Comment: Reaso n for Exam Anorexia nervosa, binge eating/purging type Performed By: #### M G, [id number], CBC, PHOS, CMP #### [facility] [address] [place] [address] Othe Crystals,Urine None Seen Normal [facility] Comment on above: Order Comment: Reaso n for Exam Anorexia nervosa, binge eating/purging type Performed By: #### M G, [id number], CBC, PHOS, CMP #### [facility] [address] [place] [address] pH (U) 5.5 [pH] Normal 5.0-9.0 [facility] Comment on above: Order Comment: Reaso n for Exam Anorexia nervosa, binge eating/purging type Performed By: #### M G, [id number], CBC, PHOS, CMP #### [facility] [address] [place] [address] Protein (U) [Mass/Vol] 30 mg/dL High Negative [facility] Comment on above: Order Comment: Reaso n for Exam Anorexia nervosa, binge eating/purging type Performed By: #### M G, [id number], CBC, PHOS, CMP #### [facility] [address] [place] [address] RBC,Urine 10-19 High 0-4 [facility] Comment on above: Order Comment: Reaso n for Exam Anorexia nervosa, binge eating/purging type Performed By: #### M G, [id number], CBC, PHOS, CMP #### [facility] [address] [place] [address] Specificy [place],Urine 1.036 High 1.001-1.030 [facility] Comment on above: Order Comment: Reaso n for Exam Anorexia nervosa, binge eating/purging type Performed By: #### M G, [id number], CBC, PHOS, CMP #### [facility] [address] [place] [address] Squamous Epithelial Cell,Urine 5-9 High 0-2 [facility] Comment on above: Order Comment: Reaso n for Exam Anorexia nervosa, binge eating/purging type Performed By: #### M G, [id number], CBC, PHOS, CMP #### [facility] [address] [place] [address] Urobilinogen,Urine Normal Normal Normal [facility] Comment on above: Order Comment: Reaso n for Exam Anorexia nervosa, binge eating/purging type Performed By: #### M G, [id number], CBC, PHOS, CMP #### [facility] [address] [place] [address] WBC,Urine 3-4 Normal 0-4 [facility] Comment on above: Order Comment: Reaso n for Exam Anorexia nervosa, binge eating/purging type Performed By: #### M G, [id number], CBC, PHOS, CMP #### [facility] [address] [place] [address] ECG 12 lead ECGon 01-22-2023 ECG 12 lead ECG [facility] [place] [address] [place] [address] Electrocardiograph Report Signed Patient: Roshan Domínguez MR#: [id number] : 1990 Acct:[id number] Age/Sex: 32 / F ADM Date: 01/22/23 Loc: ER Room: Type: [facility] ER Attending Dr: Ordering Provider: Erin Langston Jr, MD Date of Service: 01/22/23 ECG/ECG 12 lead ECG: Nausea/Vomiting/Diarrh ea Copies to: Test Reason : Blood Pressure : 129/071 mmHG Vent. Rate : 065 BPM Atrial Rate : 065 BPM P-R Int : 118 ms QRS Dur : 092 ms QT Int : 380 ms P-R-T Axes : 038 064 051 degrees QTc Int : 395 ms Normal sinus rhythm with sinus arrhythmia Normal ECG When compared with ECG of 10-OCT-2022 12:59, No significant change was found Confirmed by ERIN LANGSTON MD ([id number]) on 01/23/2023 6:36:04 AM Referred By: Electronically Signed By:ERIN LANGSTON MD Transcribed By: MUS Signed By Erin Langston Jr, MD [id number] Normal [facility] Eosinophils Auto (Bld) [#/Vo l]Ordered By: Erin Langston on 01-22-2023 Eosinophils (Bld) [#/Vol] 0.0 10*3/uL 0.0-0.45 [facility] Eosinophils/100 WBC Auto (Bl d)Ordered By: Erin Langston on 01-22-2023 Eosinophils/100 WBC (Bld) 0.3 % . [facility] Erythrocyte distribution wid th Auto (RBC) [Ratio]Ordered By: Erin Langston on 01-22-2023 Erythrocyte distribution width (RBC) [Ratio] 12.7 % 11.9-15.3 [facility] Globulin Calc (S) [Mass/Vol] Ordered By: Erin Langston on 01-22-2023 Globulin (S) [Mass/Vol] 3.0 g/dL F [facility] Glucose [Mass/volume] in Ser um or PlasmaOrdered By: Erin Langston on 01-22-2023 Glucose [Mass/Vol] 81 mg/dL 70-100 [facility] Comment on above: ADA recommended refe rence rangeRandom Glucose Reference Range is dependent on time and content of last meal. Glucose of more than 200 mg/dL in a nonstressed, ambulatory subject supports the diagnosis of Diabetes Mellitus. HCG ( test) IA.rapi d Ql (U)Ordered By: Erin Langston on 01-22-2023 HCG ( test) Ql (U) Negative [facility] HCG,Urineon 01-22-2023 Beta HCG ( test) Ql (U) Negative Normal [facility] Comment on above: Order Comment: Reaso n for Exam Anorexia nervosa, binge eating/purging type Result Comment: PERF ORMED BY: [place] [id number] PATHOLOGIST CARDIOPULMONARY PHYSICAL THERAPIST LUCIA WEBSTER M.D. Performed By: #### M G, [id number], CBC, PHOS, CMP #### [facility] [address] [place] [address] [id number] [facility] Hematocrit Auto (Bld) [Volum e fraction]Ordered By: Erin Langston on 01-22-2023 Hematocrit (Bld) [Volume fraction] 46.6 % 34.0-46.4 [facility] Hemoglobin [Mass/volume] in BloodOrdered By: Erin Langston on 01-22-2023 Hemoglobin (Bld) [Mass/Vol] 15.9 g/dL 11.8-15.4 [facility] Ketones Auto test strip (U) [Mass/Vol]Ordered By: Erin Langston on 01-22-2023 Ketones (U) [Mass/Vol] 4+ Negative [facility] Laboratory - UrinalysisOrder ed By: Erin Langston on 01-22-2023 Hyaline casts LM Ql (Urine sed) 0-8 [LPF] 0-8 [facility] Leukocytes [#/volume] correc kitty for nucleated erythrocytes in Blood by Automated counOrdered By: Erin Langston on 01-22-2023 WBC corrected for nucl RBC Auto (Bld) [#/Vol] 8.5 10*3/uL 3.8-11.6 [facility] Lipaseon 01-22-2023 Lipase [Catalytic activity/Vol] 11.0 U/L Normal 11.0-82.0 [facility] Comment on above: Result Comment: PERF ORMED BY: [address] [id number] PATHOLOGIST CARDIOPULMONARY PHYSICAL THERAPIST LUCIA WEBSTER M.D. Performed By: #### M G, [id number], CBC, PHOS, CMP #### [facility] [address] [place] [id number] [facility] Lipase [Enzymatic activity/v olume] in Serum or PlasmaOrdered By: Erin Langston on 01-22-2023 Lipase [Catalytic activity/Vol] 11.0 U/L 11.0-82.0 [facility] Lymphocytes Auto (Bld) [#/Vo l]Ordered By: Erin Langston on 01-22-2023 Lymphocytes (Bld) [#/Vol] 1.3 10*3/uL 1.00-4.8 [facility] Lymphocytes/100 WBC Auto (Bl d)Ordered By: Erin Langston on 01-22-2023 Lymphocytes/100 WBC (Bld) 15.4 % . [facility] MCH Auto (RBC) [Entitic mass ]Ordered By: Erin Langston on 01-22-2023 MCH (RBC) [Entitic mass] 31.3 pg 24.7-34.3 [facility] MCHC Auto (RBC) [Mass/Vol]Or dered By: Erin Langston on 01-22-2023 MCHC (RBC) [Mass/Vol] 34.1 g/dL 32.0-35.[address] [facility] MCV Auto (RBC) [Entitic vol] Ordered By: Erin Langston on 01-22-2023 MCV (RBC) [Entitic vol] 91.7 fL 80-[address] [facility] Magnesiumon 01-22-2023 Magnesium [Mass/Vol] 1.8 mg/dL Low 1.9-2.7 [facility] Comment on above: Performed By: #### M G, [id number], CBC, PHOS, CMP #### [facility] [address] [place] [id number] [facility] Magnesium [Mass/volume] in S yoav or PlasmaOrdered By: Erin Langston on 01-22-2023 Magnesium [Mass/Vol] 1.8 mg/dL 1.9-2.7 [facility] Monocyte distribution width [Entitic volume] in Blood by AutomatedOrdered By: Erin Langston on 01-22-2023 Monocyte distribution width Auto (Bld) [Entitic vol] 14.54 % 0.00-20.00 [facility] Monocytes Auto (Bld) [#/Vol] Ordered By: Erin Langston on 01-22-2023 Monocytes (Bld) [#/Vol] 0.2 10*3/uL 0.0-0.8 [facility] Monocytes/100 WBC Auto (Bld) Ordered By: Erin Langston on 01-22-2023 Monocytes/100 WBC (Bld) 2.8 % . F [facility] Neutrophils Auto (Bld) [#/Vo l]Ordered By: Erin Langston on 01-22-2023 Neutrophils (Bld) [#/Vol] 6.9 10*3/uL 1.8-7.7 [facility] Neutrophils/100 WBC Auto (Bl d)Ordered By: Erin Langston on 01-22-2023 Neutrophils/100 WBC (Bld) 81.0 % . [facility] Nitrite Test strip Ql (U)Ord ered By: Erin Langston on 01-22-2023 Nitrite Ql (U) Negative Negative [facility] No Panel InformationOrdered By: Erin Langston on 01-22-2023 Estimated GFR (CKD-EPI) > 60.0 mL/Min [facility] Creatinine Clearance (Chem 81.98 [facility] Nucleated erythrocytes [Pres ence] in Blood by Automated countOrdered By: Erin Langston on 01-22-2023 Nucleated RBC Auto Ql (Bld) 0.1 /100{WBC} 0-0.5 [facility] Platelet mean volume Auto (B ld) [Entitic vol]Ordered By: Erin Langston on 01-22-2023 Platelet mean volume (Bld) [Entitic vol] 10.2 fL 6.3-10.7 [facility] Platelets Auto (Bld) [#/Vol] Ordered By: Erin Langston on 01-22-2023 Platelets (Bld) [#/Vol] 292 10*3/uL 150-450 [facility] Potassium [Moles/volume] in Serum or PlasmaOrdered By: Erin Langston on 01-22-2023 Potassium [Moles/Vol] 3.6 mmol/L 3.5-5.[address] [facility] Protein Auto test strip (U) [Mass/Vol]Ordered By: Erin Langston on 01-22-2023 Protein (U) [Mass/Vol] 30 mg/dL Negative Fi [facility] Protein [Mass/volume] in Ser um or PlasmaOrdered By: Erin Langston on 01-22-2023 Protein [Mass/Vol] 7.8 g/dL 6.4-8.9 [facility] RBC Auto (Bld) [#/Vol]Ordere d By: Erin Langston on 01-22-2023 RBC (Bld) [#/Vol] 5.08 10*6/uL 3.60-5.00 [facility] Serum or plasma albumin/glob ulin mass ratioOrdered By: Erin Langston on 01-22-2023 Albumin/Globulin [Mass ratio] 1.6 {ratio} [facility] Serum or plasma anion gap de terminationOrdered By: Erin Langston on 01-22-2023 Anion gap [Moles/Vol] 21.4 mmol/L 6.0-15.0 [facility] Sodium [Moles/volume] in Ser um or PlasmaOrdered By: Erin Langston on 01-22-2023 Sodium [Moles/Vol] 142 mmol/L 136-145 [facility] Specific gravity Auto test s trip (U) [Rel density]Ordered By: Erin Langston on 01-22-2023 Specific gravity (U) [Rel density] 1.036 1.001-1.030 [facility] Squamous epithelial cells de tection in urine sediment by light microscopyOrdered By: Erin Langston on 01-22-2023 Epithelial cells.squamous LM Ql (Urine sed) 5-9 [HPF] 0-2 [facility] Urea nitrogen [Mass/volume] in Serum or PlasmaOrdered By: Erin Langston on 01-22-2023 Urea nitrogen [Mass/Vol] 10 mg/dL 7-25 [facility] Urine bacteria detection by automated methodOrdered By: Erin Langston on 01-22-2023 Bacteria Auto Ql (U) 1+ None Seen [facility] Urine clarity by refractomet ry automatedOrdered By: Erin Langston on 01-22-2023 Clarity Refractometry automated (U) Cloudy Clear [facility] Urine glucose measurement by automated test strip (mass/volume)Ordered By: Erin Langston on 01-22-2023 Glucose Auto test strip (U) [Mass/Vol] Normal mg/dL Normal [facility] Urine hemoglobin detection b y automated test stripOrdered By: Erin Langston on 01-22-2023 Hemoglobin Auto test strip Ql (U) Negative Negative [facility] Urine leukocyte esterase det ection by automated test stripOrdered By: Erin Langston on 01-22-2023 Leukocyte esterase Auto test strip Ql (U) Negative Negative [facility] Urine sediment crystal ident ification by light microscopyOrdered By: Erin Langston on 01-22-2023 Crystals LM Nom (Urine sed) None seen [HPF] [facility] Urobilinogen Auto test strip (U) [Mass/Vol]Ordered By: Erin Langston on 01-22-2023 Urobilinogen (U) [Mass/Vol] Normal mg/dL Normal [facility] WBC Auto (Bld) [#/Vol]Ordere d By: Erin Langston on 01-22-2023 WBC (Bld) [#/Vol] 8.5 10*3/uL 3.8-11.6 [facility] pH Auto test strip (U)Ordere d By: Erin Langston on 01-22-2023 pH (U) 5.5 [pH] 5.0-9.0 [facility] CNPNon 11-14-2022 [facility]N [facility]2022 [place] [Moles/Vol] 0.70 mmol/L Normal 0.60-1.20 [facility] Comment on above: Order Comment: Date of last dose?: 20221021 Time of last dose?: 638 Result Comment: PERF ORMED BY: [place] [address] PATHOLOGIST CARDIOPULMONARY PHYSICAL THERAPIST LUCIA WEBSTER M.D. Performed By: #### L ITH #### [address] [place] [Moles/volume] in Se rum or PlasmaOrdered By: Phillip Davis on 10-20-2022 [place] [Moles/Vol] 0.70 mmol/L 0.60-1.20 [facility] Glucose Glucometer (BldC) [M ass/Vol]Ordered By: Brent Simmons on 10-19-2022 Glucose [Mass/Vol] 153 mg/dL [facility] Comment on above: Random Glucose Refer ence Range is dependent on time and content of last meal. Glucose of more than 200 mg/dL in a nonstressed, ambulatory subject supports the diagnosis of Diabetes Mellitus. Glucose Poct Glucometerson 0 10-19-2022 Glucose [Mass/Vol] 153 mg/dL Normal [facility] Comment on above: Result Comment: Mcdonald om Glucose Reference Range is dependent on time and content of last meal. Glucose of more than 200 mg/dL in a nonstressed, ambulatory subject supports the diagnosis of Diabetes Mellitus. PERFORMED BY: [place] [address] PATHOLOGIST CARDIOPULMONARY PHYSICAL THERAPIST LUCIA WEBSTER M.D. Performed By: #### M G, [id number], CBC, PHOS, CMP #### [place] [id number] [facility] Lithiumon 10-17-2022 [place] [Moles/Vol] 0.90 mmol/L Normal 0.60-1.20 [facility] Comment on above: Result Comment: PERF ORMED BY: [place] [address] PATHOLOGIST CARDIOPULMONARY PHYSICAL THERAPIST LUCIA WEBSTER M.D. Performed By: #### M G, [id number], CBC, PHOS, CMP #### [place] [id number] [facility] CT abdomen pelvis wo conon 0 10-14-2022 CT abdomen pelvis wo con [facility] [place] [address] [place] [address] CT Scan Report Signed Patient: Roshan Domínguez MR#: [id number] 986 : 1990 Acct:[id number] Age/Sex: 32 / F ADM Date: 10/09/22 Loc: Room: [address] [place] [address] Type: ADM IN Attending Dr: Brent Simmons MD Copies to: Brent Simmons MD Ordering Provider: Brent Simmons MD Date of Service: 10/14/22 CT/CT abdomen pelvis wo con: abdominal pain, NV CT Abdomen and Pelvis withoutcontrast TECHNIQUE: Axial imaging with 2-D reconstruction. . The CT exam was performed using one or more the following dose reduction techniques: Automated exposure control, adjustment of the MA and/or Kv according to patient size, or use of the iterative reconstruction technique. COMPARISON: None History: Abdominal pain with nausea and vomiting LIMITATIONS: None LOWER THORAX Unremarkable LIVER: Hepatic steatosis. GALLBLADDER: No gallbladder abnormality identified. BILE DUCTS: No dilatation SPLEEN: Unremarkable PANCREAS: Unremarkable ADRENAL GLANDS: Unremarkable KIDNEYS:Unremarkable AORTA: No abdominal aortic aneurysm identified. RETROPERITONEUM: No significant retroperitoneal abnormalities identified. MESENTERY:Unremarkable SMALL BOWEL: The small bowel loops are nondistended. Wall thickening of multiple proximal small bowel loops present. APPENDIX: The appendix is normal. COLON: Unremarkable URINARY BLADDER: Urinary bladder is unremarkable. REPRODUCTIVE SYSTEM: Reproductive structures are unremarkable. PNEUMOPERITONEUM: None PERITONEAL FLUID:None BONY STRUCTURES: Unremarkable ABDOMINAL WALL: Unremarkable CT/CT abdomen pelvis wo con IMPRESSION: No acute findings. Hepatic steatosis. No bowel obstruction. Findings suggesting enteritis. Impression dictated by: Pancho Lambert M.D.10/14/2022 2:55 PM Dictation Location: [place] [address] Transcribed By: [facility] 10/14/22 1455 Dictated By: Pancho Lambert DO 10/14/22 1452 Signed By: 10/14/22 1455 [facility] US gall bladderon 10-11-2022 US gall bladder [facility] [place] [address] Ultrasound Report Signed Patient: Roshan Domínguez MR#: [id number] 986 : 1990 Acct:[id number] Age/Sex: 32 / F ADM Date: 10/09/22 Loc: Room: [address] [place] [address] Type: ADM IN Attending Dr: Brent Simmons MD Ordering Provider: Brent Simmons MD Date of Service: 10/11/22 US/US gall bladder: N/V, abdominal pain Copies to: Brent Simmons MD LIMITED ABDOMINAL ULTRASOUND: CLINICAL HISTORY: Nausea, vomiting, abdominal pain. COMPARISON: None TECHNIQUE: Grayscale and color Doppler images of the right upper quadrant organs were obtained. FINDINGS: Pancreas: Visualized portions appear unremarkable. Liver: Small hyperechoic mass left lobe measuring 1.1 cm. No intrahepatic ductal dilatation. Hepatopedal flow is seen within the portal vein. Gallbladder: Adherent stone versus gallbladder polyp measuring 9 mm. CBD: 2 mm US/US gall bladder IMPRESSION: 1.1 CM SMALL HYPERECHOIC MASS LEFT LOBE OF THE LIVER. FINDING IS NONSPECIFIC. GIVEN ITS SIZE IN PRESUMED NO HISTORY OF CANCER, REPEAT ULTRASOUND IN 3-6 MONTHS IS SUGGESTED. ADHERENT STONE VERSUS GALLBLADDER POLYP MEASURING 9 MM. THIS COULD ALSO BE FURTHER EVALUATED BY REPEAT ULTRASOUND. NO ACUTE FINDINGS.. Impression dictated by: John Landaverde Jr., D.O.10/11/2022 5:42 PM Dictation Location: [place] [address] Tech: Ashwini Post Transcribed By: ROSI 10/11/221741 Dictated By: John Landaverde Jr, DO 10/11/22 173 Signed By: 10/11/221741 Normal [facility] ECG 12 lead ECGon 10-10-2022 ECG 12 lead ECG [facility] [place] [address] Electrocardiograph Report Signed Patient: Roshan Domínguez MR#: [id number] 986 : 1990 Acct:[id number] Age/Sex: 32 / F ADM Date: 10/09/22 Loc: Room: [address] [place] [address] Type: ADM IN Attending Dr: Brent Simmons MD Ordering Provider: Brent Simmons MD Date of Service: 10/10/2206/03/499 ECG/ECG 12 lead ECG: baseline Copies to: Test Reason : Blood Pressure : / mmHG Vent. Rate : 053 BPM Atrial Rate : 053 BPM P-R Int : 132 ms QRS Dur : 092 ms QT Int : 414 ms P-R-T Axes : 028 057 046 degrees QTc Int : 388 ms Sinus bradycardia Otherwise normal ECG When compared with ECG of 06-DEC-2021 17:58, No significant change was found Confirmed by THELMA ASENCIO MD, FACC ([id number]) on 10/11/2022 8:28:08 AM Referred By: Electronically Signed By:THELMA ASENCIO MD, FACC Transcribed By: MUS Signed By Cecil Asencio MD 10/11/22 0828 Normal [facility] Alanine aminotransferase [En zymatic activity/volume] in Serum or PlasmaOrdered By: Bogdan Barnes on 10-09-2022 ALT [Catalytic activity/Vol] 14 U/L 7-52 [facility] Albumin [Mass/volume] in Ser um or Plasma by Bromocresol green (BCG) dye binding methoOrdered By: Bogdan Barnes on 10-09-2022 Albumin BCG dye [Mass/Vol] 4.7 g/dL 3.5-5.7 [facility] Alkaline phosphatase [Enzyma tic activity/volume] in Serum or PlasmaOrdered By: Bogdan Barnes on 10-09-2022 ALP [Catalytic activity/Vol] 44 U/L 34-104 [facility] Amphetamine Screen Ql (U)Ord ered By: Bogdan Barnes on 10-09-2022 Amphetamines Ql (U) Negative Negative [facility] Aspartate aminotransferase [ Enzymatic activity/volume] in Serum or PlasmaOrdered By: Bogdan Barnes on 10-09-2022 AST [Catalytic activity/Vol] 15 U/L 13-39 [facility] Automated erythrocytes count in urine sediment (number/area)Ordered By: Bogdan Barnes on 10-09-2022 RBC Auto (Urine sed) [#/Area] 1-2 [HPF] 0-4 [facility] Automated leukocytes count i n urine sediment (number/area)Ordered By: Bogdan Barnes on 10-09-2022 WBC Auto (Urine sed) [#/Area] 5-9 [HPF] 0-4 [facility] Barbiturates [Presence] in U rine by Screen methodOrdered By: Bogdan Barnes on 10-09-2022 Barbiturates Screen Ql (U) Negative Negative [facility] Basophils Auto (Bld) [#/Vol] Ordered By: Bogdan Barnes on 10-09-2022 Basophils (Bld) [#/Vol] 0.1 10*3/uL 0.0-0.2 [facility] Basophils/100 WBC Auto (Bld) Ordered By: Bogdan Barnes on 10-09-2022 Basophils/100 WBC (Bld) 0.8 % . F [facility] Benzodiazepines Screen Ql (U )Ordered By: Bogdan Barnes on 10-09-2022 Benzodiazepines Ql (U) Negative Negative [facility] Benzoylecgonine [Presence] i n Urine by Screen methodOrdered By: Bogdan Barnes on 10-09-2022 Benzoylecgonine Screen Ql (U) Negative Negative [facility] Bilirubin Test strip Ql (U)O rdered By: Bogdan Barnes on 10-09-2022 Bilirubin Ql (U) Negative Negative [facility] Bilirubin.total [Mass/volume ] in Serum or PlasmaOrdered By: Bogdan Barnes on 10-09-2022 Bilirubin [Mass/Vol] 0.9 mg/dL 0.3-1.0 [facility] Calcium [Mass/volume] in Ser um or PlasmaOrdered By: Bogdan Barnes on 10-09-2022 Calcium [Mass/Vol] 9.3 mg/dL 8.6-10.3 [facility] Cannabinoids [Presence] in U rine by Screen methodOrdered By: Bogdan Barnes on 10-09-2022 Cannabinoids Screen Ql (U) Positive Negative [facility] Comment on above: These are unconfirme d results and should not be used for legal purposes. Drug Cut-Off Concentration: AMPH 1000 ng/mL CURT 200 ng/mL MYCHAL 200 ng/mL COCM 300 ng/mL OP 300 ng/mL PCP 25 ng/mL THC 20 ng/mL Carbon dioxide, total [Moles /volume] in Serum or PlasmaOrdered By: Bogdan Barnes on 10-09-2022 CO2 [Moles/Vol] 25.3 mmol/L 21.0-31.0 [facility] Chloride [Moles/volume] in S yoav or PlasmaOrdered By: Bogdan Barnes on 10-09-2022 Chloride [Moles/Vol] 106 mmol/L 98-107 [facility] Cholesterol [Mass/volume] in Serum or PlasmaOrdered By: Brent Simmons on 10-09-2022 Cholesterol [Mass/Vol] 181 mg/dL 140-200 Fi [facility] Comment on above: Chol less than 200 m g/dl low riskChol 201-239 mg/dl borderline riskChol 240 mg/dl and greater high risk Cholesterol in LDL Calc [Mas s/Vol]Ordered By: Brent Simmons on 10-09-2022 Cholesterol in LDL [Mass/Vol] 99 mg/dL 0-100 [facility] Comment on above: LDL ATP III CLASSIFI CATIONLDL less than 100 mg/dL OptimalLDL 100-129 mg/dL Near or above optimalLDL 130-159 mg/dL Borderline highLDL 160-189 mg/dL HighLDL greater than 189 mg/dL Very high Cholesterol in VLDL Calc [Ma ss/Vol]Ordered By: Brent Simmons on 10-09-2022 Cholesterol in VLDL [Mass/Vol] 21 mg/dL [facility] Color Auto (U)Ordered By: Sadia Barnes on 10-09-2022 Color (U) Yellow Yellow [facility] Complete Blood Count Auto Di ffon 10-09-2022 Basophils (Bld) [#/Vol] 0.1 10*3/uL Normal 0.0-0.2 [facility] Comment on above: Result Comment: PERF ORMED BY: [place] [address] PATHOLOGIST CARDIOPULMONARY PHYSICAL THERAPIST LUCIA WEBSTER M.D. Performed By: #### M G, [id number], CBC, PHOS, CMP #### [facility] [address] [place] [address] Basophils/100 WBC (Bld) 0.8 % Normal . F [facility] Comment on above: Performed By: #### M G, [id number], CBC, PHOS, CMP #### [facility] [address] [place] [address] [place] Eosinophils (Bld) [#/Vol] 0.3 10*3/uL Normal 0.0-0.45 [facility] Comment on above: Performed By: #### M G, [id number], CBC, PHOS, CMP #### [facility] [address] [place] [address] [place] Eosinophils/100 WBC (Bld) 3.4 % Normal . [facility] Comment on above: Performed By: #### M G, [id number], CBC, PHOS, CMP #### [facility] [address] [place] [address] [place] Erythrocyte distribution width (RBC) [Ratio] 14.0 % Normal 11.9-15.3 [facility] Comment on above: Performed By: #### M G, [id number], CBC, PHOS, CMP #### [address] Hematocrit (Bld) [Volume fraction] 45.6 % Normal 34.0-46.4 [facility] Comment on above: Performed By: #### M G, [id number], CBC, PHOS, CMP #### [address] Hemoglobin (Bld) [Mass/Vol] 15.8 g/dL High 11.8-15.4 [facility] Comment on above: Performed By: #### M G, [id number], CBC, PHOS, CMP #### [address] Lymphocytes (Bld) [#/Vol] 2.7 10*3/uL Normal 1.00-4.8 [facility] Comment on above: Performed By: #### M G, [id number], CBC, PHOS, CMP #### [address] Lymphocytes/100 WBC (Bld) 31.3 % Normal . [facility] Comment on above: Performed By: #### M G, [id number], CBC, PHOS, CMP #### [address] MCH (RBC) [Entitic mass] 31.5 pg Normal 24.7-34.3 [facility] Comment on above: Performed By: #### M G, [id number], CBC, PHOS, CMP #### [address] MCV (RBC) [Entitic vol] 91.2 fL Normal 80-[address] [facility] Comment on above: Performed By: #### M G, [id number], CBC, PHOS, CMP #### [address] [place] [address] [place] Mean Corpuscular HGB Conc 34.6 g/dL Normal 32.0-35.0 [facility] Comment on above: Performed By: #### M G, [id number], CBC, PHOS, CMP #### [address] Monocytes (Bld) [#/Vol] 0.4 10*3/uL Normal 0.0-0.8 [facility] Comment on above: Performed By: #### M G, [id number], CBC, PHOS, CMP #### [address] Monocytes/100 WBC (Bld) 16.52 % Normal 0.00-20.[address] [facility] Comment on above: Performed By: #### M G, [id number], CBC, PHOS, CMP #### [address] Monocytes/100 WBC (Bld) 4.8 % Normal . F [facility] Comment on above: Performed By: #### M G, [id number], CBC, PHOS, CMP #### [address] Neutrophils (Bld) [#/Vol] 5.1 10*3/uL Normal 1.8-7.7 [facility] Comment on above: Performed By: #### M G, [id number], CBC, PHOS, CMP #### [address] Neutrophils/100 WBC (Bld) 59.7 % Normal . [facility] Comment on above: Performed By: #### M G, [id number], CBC, PHOS, CMP #### [address] NRBC% 0.1 /100{WBC} Normal 0-0.5 [facility] Comment on above: Performed By: #### M G, [id number], CBC, PHOS, CMP #### [facility] [address] Platelet mean volume (Bld) [Entitic vol] 9.6 fL Normal 6.3-10.7 [facility] Comment on above: Performed By: #### Margarita G, [id number], CBC, PHOS, CMP #### [facility] [address] Platelets (Bld) [#/Vol] 278 10*3/uL Normal 150-450 [facility] Comment on above: Performed By: #### M G, [id number], CBC, PHOS, CMP #### [address] RBC (Bld) [#/Vol] 5.01 10*6/uL High 3.60-5.00 [facility] Comment on above: Performed By: #### Margarita Lara, [id number], CBC, PHOS, CMP #### [address] WBC (Bld) [#/Vol] 8.6 10*3/uL Normal 3.8-11.6 [facility] Comment on above: Performed By: #### Margarita Lara, [id number], CBC, PHOS, CMP #### [facility] [address] [place] [address] Comprehensive Metabolic Pane ozzie 10-09-2022 Albumin [Mass/Vol] 4.7 g/dL Normal 3.5-5.7 [facility] Comment on above: Performed By: #### Margarita G, [id number], CBC, PHOS, CMP #### [facility] [address] [place] [address] Albumin/Globulin [Mass ratio] 1.7 {ratio} Normal [facility] Comment on above: Performed By: #### Margarita G, [id number], CBC, PHOS, CMP #### [facility] [address] [place] [address] ALP [Catalytic activity/Vol] 44 U/L Normal 34-104 [facility] Comment on above: Performed By: #### M G, [id number], CBC, PHOS, CMP #### [facility] [address] [place] [address] ALT [Catalytic activity/Vol] 14 U/L Normal 7-52 [facility] Comment on above: Performed By: #### M G, [id number], CBC, PHOS, CMP #### [address] Anion gap [Moles/Vol] 12.6 mmol/L Normal 6.0-15.0 [facility] Comment on above: Performed By: #### M G, [id number], CBC, PHOS, CMP #### [address] AST [Catalytic activity/Vol] 15 U/L Normal 13-39 [facility] Comment on above: Performed By: #### Margarita G, [id number], CBC, PHOS, CMP #### [address] Bilirubin [Mass/Vol] 0.9 mg/dL Normal 0.3-1.0 [facility] Comment on above: Performed By: #### M G, [id number], CBC, PHOS, CMP #### [address] Calcium [Mass/Vol] 9.3 mg/dL Normal 8.6-10.3 [facility] Comment on above: Performed By: #### M G, [id number], CBC, PHOS, CMP #### [address] Chloride [Moles/Vol] 106 mmol/L Normal 98-107 [facility] Comment on above: Performed By: #### M G, [id number], CBC, PHOS, CMP #### [address] CO2 [Moles/Vol] 25.3 mmol/L Normal 21.0-31.0 [facility] Comment on above: Performed By: #### M G, [id number], CBC, PHOS, CMP #### [facility] [address] Creatinine [Mass/Vol] 1.07 mg/dL Normal 0.60-1.[address] [facility] Comment on above: Performed By: #### M G, [id number], CBC, PHOS, CMP #### [address] Creatinine Clr Calc Pharmacy 68.86 [facility] Comment on above: Result Comment: PERF ORMED BY: [place] [address] PATHOLOGIST CARDIOPULMONARY PHYSICAL THERAPIST LUCIA WEBSTER M.D. Performed By: #### M G, [id number], CBC, PHOS, CMP #### [address] GFR/1.73 sq M.predicted MDRD (S/P/Bld) [Vol rate/Area] mL/min/{1.73_m2} [facility] Comment on above: Performed By: #### M G, [id number], CBC, PHOS, CMP #### [address] Globulin (S) [Mass/Vol] 2.7 g/dL Normal [facility] Comment on above: Performed By: #### M G, [id number], CBC, PHOS, CMP #### [address] Glucose [Mass/Vol] 96 mg/dL Normal 70-100 [facility] Comment on above: Result Comment: [place] Glucose Reference Range is dependent on time and content of last meal. Glucose of more than 200 mg/dL in a nonstressed, ambulatory subject supports the diagnosis of Diabetes Mellitus. ADA recommended reference range Performed By: #### M G, [id number], CBC, PHOS, CMP #### [address] Potassium [Moles/Vol] 3.9 mmol/L Normal 3.5-5.[address] [facility] Comment on above: Performed By: #### M G, [id number], CBC, PHOS, CMP #### [facility] [address] Protein [Mass/Vol] 7.4 g/dL Normal 6.4-8.9 [facility] Comment on above: Performed By: #### M G, [id number], CBC, PHOS, CMP #### [address] Sodium [Moles/Vol] 140 mmol/L Normal 136-145 [facility] Comment on above: Performed By: #### M G, [id number], CBC, PHOS, CMP #### [address] Urea nitrogen [Mass/Vol] 12 mg/dL Normal 7-25 [facility] Comment on above: Performed By: #### M G, [id number], CBC, PHOS, CMP #### [address] Creatinine [Mass/volume] in Serum or PlasmaOrdered By: Bogdan Barnes on 10-09-2022 Creatinine [Mass/Vol] 1.07 mg/dL 0.60-1.[address] [facility] Dipstick and Microscopicon 0 10-09-2022 Appearance (U) Cloudy Critically abnormal [facility] Comment on above: Order Comment: Reaso n for Exam Anorexia nervosa, binge eating/purging type Performed By: #### M G, [id number], CBC, PHOS, CMP #### [address] Bacteria,Urine 1+ High None Seen [facility] Comment on above: Order Comment: Reaso n for Exam Anorexia nervosa, binge eating/purging type Performed By: #### M G, [id number], CBC, PHOS, CMP #### [facility] [address] [place] [address] [place] Bilirubin,Urine Negative Normal Negative [facility] Comment on above: Order Comment: Reaso n for Exam Anorexia nervosa, binge eating/purging type Performed By: #### M G, [id number], CBC, PHOS, CMP #### [facility] [address] [place] [address] Color (U) Yellow Normal Yellow [facility] Comment on above: Order Comment: Reaso n for Exam Anorexia nervosa, binge eating/purging type Performed By: #### M G, [id number], CBC, PHOS, CMP #### [facility] [address] [place] [address] Glucose Ql (U) Normal Normal Normal [facility] Comment on above: Order Comment: Reaso n for Exam Anorexia nervosa, binge eating/purging type Performed By: #### M G, [id number], CBC, PHOS, CMP #### [facility] [address] [place] [address] Hyaline Casts,Urine 0-8 Normal 0-8 [facility] Comment on above: Order Comment: Reaso n for Exam Anorexia nervosa, binge eating/purging type Performed By: #### M G, [id number], CBC, PHOS, CMP #### [facility] [address] [place] [address] [place] Ketones Ql (U) 1+ High Negative [facility] Comment on above: Order Comment: Reaso n for Exam Anorexia nervosa, binge eating/purging type Performed By: #### M G, [id number], CBC, PHOS, CMP #### [facility] [address] [place] [address] Leukocyte esterase Test strip Ql (U) 1+ High Negative [facility] Comment on above: Order Comment: Reaso n for Exam Anorexia nervosa, binge eating/purging type Performed By: #### M G, [id number], CBC, PHOS, CMP #### [facility] [address] [place] [address] [place] Nitrite,Urine Negative Normal Negative [facility] Comment on above: Order Comment: Reaso n for Exam Anorexia nervosa, binge eating/purging type Performed By: #### M G, [id number], CBC, PHOS, CMP #### [address] Occult Blood,Urine Negative Normal Negative [facility] Comment on above: Order Comment: Reaso n for Exam Anorexia nervosa, binge eating/purging type Performed By: #### M G, [id number], CBC, PHOS, CMP #### [address] pH (U) 5.5 [pH] Normal 5.0-9.0 [facility] Comment on above: Order Comment: Reaso n for Exam Anorexia nervosa, binge eating/purging type Performed By: #### M G, [id number], CBC, PHOS, CMP #### [address] Protein,Urine Trace High Negative [facility] Comment on above: Order Comment: Reaso n for Exam Anorexia nervosa, binge eating/purging type Performed By: #### M G, [id number], CBC, PHOS, CMP #### [address] RBC,Urine 1-2 Normal 0-4 [facility] Comment on above: Order Comment: Reaso n for Exam Anorexia nervosa, binge eating/purging type Performed By: #### M G, [id number], CBC, PHOS, CMP #### [place] [address] [place] Specificy [place],Urine 1.027 Normal 1.001-1.030 [facility] Comment on above: Order Comment: Reaso n for Exam Anorexia nervosa, binge eating/purging type Performed By: #### M G, [id number], CBC, PHOS, CMP #### [place] [address] [place] Squamous Epithelial Cell,Urine 10-19 High 0-2 [facility] Comment on above: Order Comment: Reaso n for Exam Anorexia nervosa, binge eating/purging type Performed By: #### M G, [id number], CBC, PHOS, CMP #### [facility] [address] [place] [address] Urobilinogen,Urine Normal Normal Normal [facility] Comment on above: Order Comment: Reaso n for Exam Anorexia nervosa, binge eating/purging type Performed By: #### M G, [id number], CBC, PHOS, CMP #### [facility] [address] [place] [address] WBC,Urine 5-9 High 0-4 [facility] Comment on above: Order Comment: Reaso n for Exam Anorexia nervosa, binge eating/purging type Performed By: #### M G, [id number], CBC, PHOS, CMP #### [address] Drug Screen,Urineon 10-10-19 23 Amphetamine Screen,Urine Negative Normal Negative [facility] Comment on above: Performed By: #### M G, [id number], CBC, PHOS, CMP #### [address] Barbiturate Screen,Urine Negative Normal Negative [facility] Comment on above: Performed By: #### M G, [id number], CBC, PHOS, CMP #### [address] Benzodiazepines Screen,Urine Negative Normal Negative [facility] Comment on above: Performed By: #### M G, [id number], CBC, PHOS, CMP #### [facility] [address] [place] [address] Cannabinoid Screen,Urine Positive High Negative [facility] Comment on above: Result Comment: Thes e are unconfirmed results and should not be used for legal purposes. Drug Cut-Off Concentration: AMPH 1000 ng/mL CURT 200 ng/mL MYCHAL 200 ng/mL COCM 300 ng/mL OP 300 ng/mL PCP 25 ng/mL THC 20 ng/mL PERFORMED BY: [place] [address] PATHOLOGIST CARDIOPULMONARY PHYSICAL THERAPIST LUCIA WEBSTER M.D. Performed By: #### M G, [id number], CBC, PHOS, CMP #### [facility] [address] Cocaine Screen,Urine Negative Normal Negative [facility] Comment on above: Performed By: #### M G, [id number], CBC, PHOS, CMP #### [facility] [address] Opiate Screen,Urine Negative Normal Negative [facility] Comment on above: Performed By: #### M G, [id number], CBC, PHOS, CMP #### [facility] [address] Phencyclidine Screen,Urine Negative Normal Negative [facility] Comment on above: Performed By: #### M G, [id number], CBC, PHOS, CMP #### [facility] [address] Eosinophils Auto (Bld) [#/Vo l]Ordered By: Bogdan Barnes on 10-09-2022 Eosinophils (Bld) [#/Vol] 0.3 10*3/uL 0.0-0.45 [facility] Eosinophils/100 WBC Auto (Bl d)Ordered By: Bogdan Barnes on 10-09-2022 Eosinophils/100 WBC (Bld) 3.4 % . [facility] Erythrocyte distribution wid th Auto (RBC) [Ratio]Ordered By: Bogdan Barnes on 10-09-2022 Erythrocyte distribution width (RBC) [Ratio] 14.0 % 11.9-15.3 [facility] Ethanol [Mass/volume] in Ser um or PlasmaOrdered By: Bogdan Barnes on 10-09-2022 Ethanol [Mass/Vol] mg/dL [facility] Ethanol [Mass/Vol] TNP [facility] Comment on above: Test not performed Ethyl Alcohol Profileon 09-11 Ethanol [Mass/Vol] mg/dL Normal [facility] Comment on above: Performed By: #### M G, [id number], CBC, PHOS, CMP #### [facility] [address] [place] [address] [place] Percent Ethanol Not performed Normal [facility] Comment on above: Result Comment: PERF ORMED BY: [facility] [address] [place] [address] PATHOLOGIST CARDIOPULMONARY PHYSICAL THERAPIST LUCIA WEBSTER M.D. Performed By: #### M G, [id number], CBC, PHOS, CMP #### [facility] [address] [place] [address] [facility] Globulin Calc (S) [Mass/Vol] Ordered By: Bogdan Barnes on 10-09-2022 Globulin (S) [Mass/Vol] 2.7 g/dL F [facility] Glucose [Mass/volume] in Ser um or PlasmaOrdered By: Bogdan Barnes on 10-09-2022 Glucose [Mass/Vol] 96 mg/dL 70-100 [facility] Comment on above: ADA recommended refe rence rangeRandom Glucose Reference Range is dependent on time and content of last meal. Glucose of more than 200 mg/dL in a nonstressed, ambulatory subject supports the diagnosis of Diabetes Mellitus. HCG ( test) IA.rapi d Ql (U)Ordered By: Bogdan Barnes on 10-09-2022 HCG ( test) Ql (U) Negative [facility] HCG,Urineon 10-09-2022 Beta HCG ( test) Ql (U) Negative Normal [facility] Comment on above: Order Comment: Reaso n for Exam Anorexia nervosa, binge eating/purging type Result Comment: PERF ORMED BY: [facility] [address] [place] [address] PATHOLOGIST CARDIOPULMONARY PHYSICAL THERAPIST LUCIA WEBSTER M.D. Performed By: #### M G, [id number], CBC, PHOS, CMP #### [facility] [address] [place] [address] [facility] Hematocrit Auto (Bld) [Volum e fraction]Ordered By: Bogdan Barnes on 10-09-2022 Hematocrit (Bld) [Volume fraction] 45.6 % 34.0-46.4 [facility] Hemoglobin [Mass/volume] in BloodOrdered By: Bogdan Barnes on 10-09-2022 Hemoglobin (Bld) [Mass/Vol] 15.8 g/dL 11.8-15.4 [facility] Ketones Auto test strip (U) [Mass/Vol]Ordered By: Bogdan Barnes on 10-09-2022 Ketones (U) [Mass/Vol] 1+ Negative [facility] - UrinalysisOrder ed By: Bogdan Barnes on 10-09-2022 Hyaline casts LM Ql (Urine sed) 0-8 [LPF] 0-8 [facility] Leukocytes [#/volume] correc kitty for nucleated erythrocytes in Blood by Automated counOrdered By: Bogdan Barnes on 10-09-2022 WBC corrected for nucl RBC Auto (Bld) [#/Vol] 8.6 10*3/uL 3.8-11.6 [facility] Lipid Panelon 10-09-2022 Cholesterol [Mass/Vol] 181 mg/dL Normal 140-200 [facility] Comment on above: Order Comment: Reaso n for Exam Anorexia nervosa, binge eating/purging type Result Comment: Chol less than 200 mg/dl low risk Chol 201-239 mg/dl borderline risk Chol 240 mg/dl and greater high risk Performed By: #### M G, [id number], CBC, PHOS, CMP #### [facility] [address] [place] [address] [place] Cholesterol in HDL [Mass/Vol] 60 mg/dL Normal 35-85 [facility] Comment on above: Order Comment: Reaso n for Exam Anorexia nervosa, binge eating/purging type Result Comment: HDL CHOL ATP-III CLASSIFICATION Cardiovascular Risk HDL > or equal to 60 mg/dL LOW HDL < 40 mg/dL HIGH Performed By: #### M G, [id number], CBC, PHOS, CMP #### [facility] [address] [place] [address] [place] Cholesterol.total/Ashley sterol in HDL [Mass ratio] 3.0 {ratio} Normal <5.0 [facility] Comment on above: Order Comment: Reaso n for Exam Anorexia nervosa, binge eating/purging type Performed By: #### M G, [id number], CBC, PHOS, CMP #### [facility] [address] [place] [address] [place] LDL Cholesterol,Calculated 99 mg/dL Normal 0-100 [facility] Comment on above: Order Comment: Reaso n for Exam Anorexia nervosa, binge eating/purging type Result Comment: LDL ATP III CLASSIFICATION LDL less than 100 mg/dL Optimal LDL 100-129 mg/dL Near or above optimal LDL 130-159 mg/dL Borderline high LDL 160-189 mg/dL High LDL greater than 189 mg/dL Very high Performed By: #### M G, [id number], CBC, PHOS, CMP #### [facility] [address] Triglyceride w/Reflex 109 mg/dL Normal 0-[address] [facility] Comment on above: Order Comment: Reaso n for Exam Anorexia nervosa, binge eating/purging type Result Comment: TRIG ATP III CLASSIFICATION TRIG less than 150 mg/dL Normal TRIG 150-199 mg/dL Borderline high TRIG 200-500 mg/dL High TRIG greater than 500 mg/dL Very high Standard traceable to the Center for Disease Conrtrol and Prevention (CDC) test method. Performed By: #### M G, [id number], CBC, PHOS, CMP #### [facility] [address] VLDL CHOLESTEROL 21 mg/dL Normal [facility] Comment on above: Order Comment: Jennifero n for Exam Anorexia nervosa, binge eating/purging type Performed By: #### M G, [id number], CBC, PHOS, CMP #### [facility] [address] [place] [id number] [facility] Lymphocytes Auto (Bld) [#/Vo l]Ordered By: Bogdan Barnes on 10-09-2022 Lymphocytes (Bld) [#/Vol] 2.7 10*3/uL 1.00-4.8 [facility] Lymphocytes/100 WBC Auto (Bl d)Ordered By: Bogdan Barnes on 10-09-2022 Lymphocytes/100 WBC (Bld) 31.3 % . [facility] MCH Auto (RBC) [Entitic mass ]Ordered By: Bogdan Barnes on 10-09-2022 MCH (RBC) [Entitic mass] 31.5 pg 24.7-34.3 [facility] MCHC Auto (RBC) [Mass/Vol]Or dered By: Bogdan Barnes on 10-09-2022 MCHC (RBC) [Mass/Vol] 34.6 g/dL 32.0-35.[address] [facility] MCV Auto (RBC) [Entitic vol] Ordered By: Bogdan Barnes on 10-09-2022 MCV (RBC) [Entitic vol] 91.2 fL 80-[address] [facility] Monocyte distribution width [Entitic volume] in Blood by AutomatedOrdered By: Bogdan Barnes on 10-09-2022 Monocyte distribution width Auto (Bld) [Entitic vol] 16.52 % 0.00-20.00 [facility] Monocytes Auto (Bld) [#/Vol] Ordered By: Bogdan Barnes on 10-09-2022 Monocytes (Bld) [#/Vol] 0.4 10*3/uL 0.0-0.8 [facility] Monocytes/100 WBC Auto (Bld) Ordered By: Bogdan Barnes on 10-09-2022 Monocytes/100 WBC (Bld) 4.8 % . F [facility] Neutrophils Auto (Bld) [#/Vo l]Ordered By: Bogdan Barnes on 10-09-2022 Neutrophils (Bld) [#/Vol] 5.1 10*3/uL 1.8-7.7 [facility] Neutrophils/100 WBC Auto (Bl d)Ordered By: Bogdan Barnes on 10-09-2022 Neutrophils/100 WBC (Bld) 59.7 % . [facility] Nitrite Test strip Ql (U)Ord ered By: Bogdan Barnes on 10-09-2022 Nitrite Ql (U) Negative Negative [facility] No Panel InformationOrdered By: Bogdan Barnes on 10-09-2022 Estimated GFR (CKD-EPI) > 60.0 mL/Min [facility] Creatinine Clearance (Chem 68.86 [facility] Nucleated erythrocytes [Pres ence] in Blood by Automated countOrdered By: Bogdan Barnes on 10-09-2022 Nucleated RBC Auto Ql (Bld) 0.1 /100{WBC} 0-0.5 [facility] Opiates [Presence] in Urine by Screen methodOrdered By: Bogdan Barnes on 10-09-2022 Opiates Screen Ql (U) Negative Negative [facility] Phencyclidine Screen Ql (U)O rdered By: Bogdan Barnes on 10-09-2022 Phencyclidine Ql (U) Negative Negative [facility] Platelet mean volume Auto (B ld) [Entitic vol]Ordered By: Bogdan Branes on 10-09-2022 Platelet mean volume (Bld) [Entitic vol] 9.6 fL 6.3-10.7 [facility] Platelets Auto (Bld) [#/Vol] Ordered By: Bogdan Barnes on 10-09-2022 Platelets (Bld) [#/Vol] 278 10*3/uL 150-450 [facility] Potassium [Moles/volume] in Serum or PlasmaOrdered By: Bogdan Barnes on 10-09-2022 Potassium [Moles/Vol] 3.9 mmol/L 3.5-5.[address] [facility] Protein Auto test strip (U) [Mass/Vol]Ordered By: Bogdan Barnes on 10-09-2022 Protein (U) [Mass/Vol] Trace mg/dL Negative F [facility] Protein [Mass/volume] in Ser um or PlasmaOrdered By: Bogdan Barnes on 10-09-2022 Protein [Mass/Vol] 7.4 g/dL 6.4-8.9 [facility] RBC Auto (Bld) [#/Vol]Ordere d By: Bogdan Barnes on 10-09-2022 RBC (Bld) [#/Vol] 5.01 10*6/uL 3.60-5.00 [facility] Serum or plasma albumin/glob ulin mass ratioOrdered By: Bogdan Barnes on 10-09-2022 Albumin/Globulin [Mass ratio] 1.7 {ratio} [facility] Serum or plasma anion gap de terminationOrdered By: Bogdan Barnes on 10-09-2022 Anion gap [Moles/Vol] 12.6 mmol/L 6.0-15.0 Fi [facility] Serum or plasma high density lipoprotein (HDL) cholesterol measurementOrdered By: Brent Simmons on 10-09-2022 Cholesterol in HDL [Mass/Vol] 60 mg/dL 35-85 [facility] Comment on above: HDL CHOL ATP-III CLA SSIFICATION Cardiovascular RiskHDL > or equal to 60 mg/dL LOWHDL < 40 mg/dL HIGH Serum or plasma total choles terol/high density lipoprotein (HDL) cholesterol mass ratOrdered By: Brent Simmons on 10-09-2022 Cholesterol.total/Ashley sterol in HDL [Mass ratio] 3.0 {ratio} <5.0 [facility] Sodium [Moles/volume] in Ser um or PlasmaOrdered By: Bogdan Barnes on 10-09-2022 Sodium [Moles/Vol] 140 mmol/L 136-145 [facility] Specific gravity Auto test s trip (U) [Rel density]Ordered By: Bogdan Barnes on 10-09-2022 Specific gravity (U) [Rel density] 1.027 1.001-1.030 [facility] Squamous epithelial cells de tection in urine sediment by light microscopyOrdered By: Bogdan Barnes on 10-09-2022 Epithelial cells.squamous LM Ql (Urine sed) 10-19 [HPF] 0-2 [facility] Thyroid Stim Hormone w/Rflxo n 10-09-2022 Thyroid Stim Hormone w/Rflx 1.85 u[iU]/mL Normal 0.45-5.33 [facility] Comment on above: Order Comment: Reaso n for Exam Anorexia nervosa, binge eating/purging type Performed By: #### M G, [id number], CBC, PHOS, CMP #### [facility] [address] Thyrotropin [Units/volume] i n Serum or PlasmaOrdered By: Brent Simmons on 10-09-2022 TSH Qn 1.85 m[IU]/L 0.45-5.33 [facility] Triglyceride [Mass/volume] i n Serum or PlasmaOrdered By: Brent Simmons on 10-09-2022 Triglyceride [Mass/Vol] 109 mg/dL 0-[address] [facility] Comment on above: TRIG ATP III CLASSIF ICATIONTRIG less than 150 mg/dL NormalTRIG 150-199 mg/dL Borderline highTRIG 200-500 mg/dL High TRIG greater than 500 mg/dL Very highStandard traceable to the Center for Disease Conrtrol and Prevention (CDC) test method. Urea nitrogen [Mass/volume] in Serum or PlasmaOrdered By: Bogdan Barnes on 10-09-2022 Urea nitrogen [Mass/Vol] 12 mg/dL 7-25 [facility] Urine Cultureon 10-09-2022 Bacteria identified Cx Nom (U) 75,000 colonies/ml mixed bacterial skin contaminants 2 Days PERFORMED BY: [place] [address] PATHOLOGIST CARDIOPULMONARY PHYSICAL THERAPIST LUCIA WEBSTER M.D. Normal [facility] Comment on above: Performed By: #### M G, [id number], CBC, PHOS, CMP #### [address] Urine bacteria detection by automated methodOrdered By: Bogdan Barnes on 10-09-2022 Bacteria Auto Ql (U) 1+ None Seen [facility] Urine clarity by refractomet ry automatedOrdered By: Bogdan Barnes on 10-09-2022 Clarity Refractometry automated (U) Cloudy Clear [facility] Urine culture routineOrdered By: Bogdan Barnes on 10-09-2022 Bacteria identified Cx Nom (U) 2 Days [facility] Urine glucose measurement by automated test strip (mass/volume)Ordered By: Bogdan Barnes on 10-09-2022 Glucose Auto test strip (U) [Mass/Vol] Normal mg/dL Normal [facility] Urine hemoglobin detection b y automated test stripOrdered By: Bogdan Barnes on 10-09-2022 Hemoglobin Auto test strip Ql (U) Negative Negative [facility] Urine leukocyte esterase det ection by automated test stripOrdered By: Bogdan Barnes on 10-09-2022 Leukocyte esterase Auto test strip Ql (U) 1+ Negative [facility] Urobilinogen Auto test strip (U) [Mass/Vol]Ordered By: Bogdan Barnes on 10-09-2022 Urobilinogen (U) [Mass/Vol] Normal mg/dL Normal [facility] Vitamin D 25 Hydroxy Totalon 10-09-2022 Vitamin D 25 Hydroxy Total 40.1 ng/mL Normal 30-100 [facility] Comment on above: Order Comment: Reaso n for Exam Anorexia nervosa, binge eating/purging type Result Comment: BAUTISTA MIN D STATUS 25([place])VITAMIN D RANGE (ng/mL) Deficient <20 Insufficient 20 to <30 Sufficient 30 to 100 Reference: Janett MF,Dino TROY, Joe HAIDER, et al. Evaluation,treatment, and prevention of vitamin D deficiency; an Endocrine Society clinical practice guideline. JCEM. 2010; 96(7):1911-30. PERFORMED BY: [facility] [address] [place] [address] PATHOLOGIST CARDIOPULMONARY PHYSICAL THERAPIST LUCIA WEBSTER M.D. Performed By: #### M G, [id number], CBC, PHOS, CMP #### [facility] [address] Vitamin D+Metabolites [Mass/ volume] in Serum or PlasmaOrdered By: Brent Simmons on 10-09-2022 Vitamin D+Metabolites [Mass/Vol] 40.1 ng/mL 30-100 [facility] Comment on above: VITAMIN D STATUS 25( [place])VITAMIN D RANGE (ng/mL) Deficient <20 Insufficient 20 to <30Sufficient 30 to 100Reference: Janett ASH,Dino TROY, Joe HAIDER, et al. Evaluation,treatment, and prevention of vitamin D deficiency; an Endocrine Society clinical practice guideline. JCEM. 2010; 96(7):1911-30. WBC Auto (Bld) [#/Vol]Ordere d By: Bogdan Barnes on 10-09-2022 WBC (Bld) [#/Vol] 8.6 10*3/uL 3.8-11.6 [facility] pH Auto test strip (U)Ordere d By: Bogdan Barnes on 10-09-2022 pH (U) 5.5 [pH] 5.0-9.0 [facility] CNCOon 08-09-2022 CNCO Letter Text Normal [facility] CBC AUTO DIFFon 07-24-2022 BASO # 0.1 103/ul Normal 0.0-0.1 [facility] Comment on above: Performed By: #### E RUR #### [facility] [address] [place] [address] [address] Janee Rodriguez Basophils/100 WBC (Bld) 0.7 % Normal 0.2-2.0 [facility] Comment on above: Performed By: #### E RUR #### [facility] [address] [place] [address] Dr. Janee Rodriguez EO # 0.4 103/ul Normal 0.0-0.7 [facility] Comment on above: Performed By: #### E RUR #### [facility] [address] [place] [address] Dr. Janee Rodriguez Eosinophils/100 WBC (Bld) 3.5 % Normal 0.9-7.0 [facility] Comment on above: Performed By: #### E RUR #### [facility] [address] [place] [address] Dr. Janee Rodriguez Erythrocyte distribution width (RBC) [Ratio] 12.2 % Normal 11.0-15.0 [facility] Comment on above: Performed By: #### E RUR #### [facility] [address] [place] [address] Dr. Janee Rodriguez Hematocrit (Bld) [Volume fraction] 43.8 % Normal 36.0-48.0 [facility] Comment on above: Performed By: #### E RUR #### [facility] [address] [place] [address] Dr. Janee Rodriguez Hemoglobin (Bld) [Mass/Vol] 14.7 g/dL Normal 12.0-16.0 [facility] Comment on above: Performed By: #### E RUR #### [facility] [address] [place] [address] Dr. Janee Rodriguez IG # 0.14 10e3/ul Critically high 0.00-0.03 [facility] Comment on above: Performed By: #### E RUR #### [facility] [address] [place] [address] Dr. Janee Rodriguez IG % 1.3 % Critically high 0.0-0.5 [facility] Comment on above: Performed By: #### E RUR #### [facility] [address] [place] [address] Dr. Janee Rodriguez LYMPH # 1.5 103/ul Normal 1.2-3.8 [facility] Comment on above: Performed By: #### E RUR #### [facility] [address] [place] [address] Dr. Janee Rodriguez Lymphocytes/100 WBC (Bld) 13.9 % Critically low 20.5-60.0 [facility] Comment on above: Performed By: #### E RUR #### [facility] [address] [place] [address] Dr. Janee Rodriguez MANUAL DIFF REQ NO Normal [facility] Comment on above: Performed By: #### E RUR #### [facility] [address] [place] [address] Dr. Janee Rodriguez MCH (RBC) [Entitic mass] 30.4 pg Normal 26.7-34.0 [facility] Comment on above: Performed By: #### E RUR #### [facility] [address] [place] [address] Dr. Janee Rodriguez MCHC (RBC) [Mass/Vol] 33.6 g/dL Normal 29.9-35.2 [facility] Comment on above: Performed By: #### E RUR #### [facility] [address] [place] [address] Dr. Janee Rodriguez MCV (RBC) [Entitic vol] 90.7 fL Normal 81.0-99.0 [facility] Comment on above: Performed By: #### E RUR #### [facility] [address] [place] [address] Dr. Janee Rodriguez MONO # 0.5 103/ul Normal 0.3-0.8 [facility] Comment on above: Performed By: #### E RUR #### [facility] [address] [place] [address] Dr. Janee Rodriguez Monocytes/100 WBC (Bld) 4.5 % Normal 1.7-12.0 [facility] Comment on above: Performed By: #### E RUR #### [facility] [address] [place] [address] Dr. Janee Rodriguez NEUT # 8.0 103/ul Critically high 1.4-6.5 [facility] Comment on above: Performed By: #### E RUR #### [facility] [address] [place] [address] [address] Janee Rodriguez Neutrophils/100 WBC (Bld) 76.1 % Critically high 43.0-75.0 [facility] Comment on above: Performed By: #### E RUR #### [facility] [address] [place] [address] [address] Janee Rodriguez Platelet mean volume (Bld) [Entitic vol] 11.1 fL Normal 9.5-13.5 [facility] Comment on above: Performed By: #### E RUR #### [facility] [address] [place] [address] [address] Janee Rodriguez PLT 240 103/ul Normal 150-450 [facility] Comment on above: Performed By: #### E RUR #### [facility] [address] [place] [address] Dr. Janee Rodriguez RBC 4.83 106/ul Normal 4.20-5.40 [facility] Comment on above: Performed By: #### E RUR #### [facility] [address] [place] [address] [address] Janee Rodriguez WBC 10.6 103/ul Normal 4.0-11.0 [facility] Comment on above: Performed By: #### E RUR #### [facility] [address] [place] [address] [facility] CON INDICATION: 31 years old; Female. Symptom/Location/Durat ion: Lump in throat for 3 days. TECHNIQUE: CT examination of the neck. Axial, coronal and sagittal reformats were reviewed. 100 mL of Omnipaque 300 was injected intravenously without complication. Ionizing radiation dose reduced via iterative reconstruction/FBP blend and body size kV/mA adjustment. Patient exposure information sent to ACR dose registry. Utilization of standard nomenclature applied. COMPARISON: None FINDINGS: AIRWAY: PARANASAL SINUSES AND MASTOID AIR CELLS: There is mucoperiosteal thickening with a tiny cyst or polyp in the right maxillary sinus with thickening in the base of the left maxillary sinus. Mastoid sclerosis is present bilaterally. Middle ears are clear. NASOPHARYNX: There is enlargement of the nasopharyngeal soft tissues with enhancement consistent with enlargement the adenoids. OROPHARYNX: Normal in appearance. ORAL CAVITY: Normal in appearance. HYPOPHARYNX: Normal in appearance. LARYNX: Normal in appearance. TRACHEA: Patent. SOFT TISSUES: PARAPHARYNGEAL SPACE: Normal and symmetric. CAROTID SPACE: Normal in appearance. STEEL ERECTOR APPRENTICE SPACE: Normal in appearance. RETROPHARYNGEAL SPACE: Normal in appearance. LYMPH NODES: No pathologic adenopathy is seen. No matted or necrotic lymph nodes are noted. GLANDS: PAROTID: Normal in appearance. SUBMANDIBULAR: Normal in appearance. THYROID: No thyroid nodule or adenopathy. MISCELLANEOUS: LUNG APICES: Clear. BONY CERVICAL SPINE: Normal. VISUALIZED BRAIN: A portion of the brain is included in this examination. No pathologic enhancement is seen. This study cannot exclude all brain pathology. VISUALIZED GLOBES: No orbital masses are seen. DENTITION: There is poor dentition with multiple missing teeth. Dental caries are noted. OTHER: There is a well-circumscribed cystic lesion present in the midline projecting to the left of the midline. This is anterior to the thyroid cartilage and measures 7.79 x 7.33 x 18.76 mm in diameter. This is best seen on images including, but not limited to, 25/series 6 and 49/series 3. The appearance is consistent with a thyroglossal duct cyst. There is no evidence of adjacent edema or wall thickening which would indicate the presence of infection. IMPRESSION: 1. 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 2. Airway is patent. No radiopaque foreign bodies are noted. Electronically authenticated by: DELL ARVIZU Date: 2022-07-24 03:39 Normal [facility] PROF CHEM 8 (BAS METB)on Anion gap [Moles/Vol] 11.3 mmol/L Normal [facility] Comment on above: Performed By: #### E RUR #### [facility] [address] [place], [place] [address] Dr. Janee Rodriguez Calcium [Mass/Vol] 8.8 mg/dL Normal 8.5-10.1 [facility] Comment on above: Performed By: #### E RUR #### [facility] [address] [place] [address] [address] Janee Rodriguez Chloride [Moles/Vol] 108 mmol/L Critically high 98-107 [facility] Comment on above: Performed By: #### E RUR #### [facility] [address] [place] [address] Dr. Janee Rodriguez CO2 [Moles/Vol] 23.3 mmol/L Normal 21.0-32.0 [facility] Comment on above: Performed By: #### E RUR #### [facility] [address] [place] [address] Dr. Janee Rodriguez Creatinine [Mass/Vol] 0.67 mg/dL Normal 0.55-1.02 [facility] Comment on above: Performed By: #### E RUR #### [facility] [address] [place] [address] Dr. Janee Rodriguez EGFR-AF HUNGARIAN >60 Normal >=60 [facility] Comment on above: Performed By: #### E RUR #### [facility] [address] [place] [address] Dr. Janee Rodriguez EGFR-NON AF HUNGARIAN >60 Normal >=60 [facility] Comment on above: Performed By: #### E RUR #### [facility] [address] [place] [address] Dr. Janee Rodriguez Glucose [Mass/Vol] 88 mg/dL Normal 74-106 [facility] Comment on above: Performed By: #### E RUR #### [facility] [address] [place] [address] Dr. Janee Rodriguez Potassium [Moles/Vol] 3.6 mmol/L Normal 3.5-5.1 [facility] Comment on above: Performed By: #### E RUR #### [facility] [address] [place] [address] Dr. Janee Rodriguez Sodium [Moles/Vol] 139 mmol/L Normal 136-145 [facility] Comment on above: Performed By: #### E RUR #### [facility] [address] [place] [address] Dr. Janee Rodriguez Urea nitrogen [Mass/Vol] 10.0 mg/dL Normal 7.0-18.0 [facility] Comment on above: Performed By: #### E RUR #### [facility] [address] [place] [address] Dr. Janee Rodriguez Urea nitrogen/Creatinine [Mass ratio] 14.9 mg/mg Normal [facility] Comment on above: Performed By: #### E RUR #### [facility] [address] [address] [address] Janee Rodriguez TSHon 07-24-2022 TSH 1.208 uIU/mL Normal 0.358-3.740 [facility] Comment on above: Performed By: #### E RUR #### [facility] [address] [place] [address] Dr. Janee Rodriguez XR chest 2V*on 07-24-2022 XR chest 2V* [facility] [place] [address] XRay Report Signed Patient: Roshan Domínguez MR#: [id number] : 1990 Acct:[id number] Age/Sex: 31 / F ADM Date: 07/24/22 Loc: ER Room: Type: [facility] ER Attending Dr: Copies to: SALMA Ferrera Ordering Provider: SALMA Ferrera Date of Service: 07/24/22 XR/XR chest 2V*: Shortness of Breath/Dyspnea XR chest 2V* 07/24/2022 3:22 PM SIGNS AND SYMPTOMS: Shortness of Breath/Dyspnea PROTOCOL: Frontal and lateral radiographs of the chest COMPARISON: 03/17/2021 FINDINGS: The trachea is midline. The heart and mediastinal structures are within normal limits. The lung parenchyma is clear. The bony thorax is intact. XR/XR chest 2V* IMPRESSION: No acute cardiopulmonary pathology. Impression dictated by: Zachary Araujo M.D.07/24/2022 3:36 PM Dictation Location: [place] [address] Transcribed By: [facility] 07/24/22 1536 Dictated By: Zachary Araujo II, MD 07/24/22 1535 Signed By: 07/24/22 1536 Normal [facility] ACUTE TOXICOLOGY PANEL, BLOO Don 05-13-2022 Acetaminophen [Mass/Vol] ug/mL Normal 10.0 - 30.0 [facility] Comment on above: Performed By: #### D RUBL #### [facility] [address] [place] [address] Ethanol [Mass/Vol] mg/dL Normal [facility] Comment on above: Result Comment: FOR MEDICAL USE ONLY. . REF VALUES <10 Performed By: #### D RUBL #### [facility] [address] [place] [id number] SALICYLATE <3 Normal 4 - 20 [facility] Comment on above: Performed By: #### D RUBL #### [facility] [address] [place] [id number] CBC AND DIFFERENTIALon 05-13 % AUTOMATED IMMATURE GRAN 0.4 % Normal 0.0 - 0.9 [facility] Comment on above: Result Comment: Ele ture Granulocyte Count (IG) includes promyelocytes, myelocytes and metamyelocytes but does not include bands. Percent differential counts (%) should be interpreted in the context of the absolute cell counts (cells/L). Performed By: #### C BCDF #### [facility] [address] [place] [address] Basophils (Bld) [#/Vol] 0.07 10*3/uL Normal 0.00 - 0.1 0 [facility] Comment on above: Performed By: #### C BCDF #### [facility] [address] [place] [address] Basophils/100 WBC (Bld) 0.6 % Normal 0.0 - 2.0 [facility] Comment on above: Performed By: #### C BCDF #### [facility] [address] [place] [address] Eosinophils (Bld) [#/Vol] 0.36 10*3/uL Normal 0.00 - 0.70 [facility] Comment on above: Performed By: #### C BCDF #### [facility] [address] [place] [address] Eosinophils/100 WBC (Bld) 3.2 % Normal 0.0 - 6.0 [facility] Comment on above: Performed By: #### C BCDF #### [facility] [address] [place] [address] Erythrocyte distribution width (RBC) [Ratio] 12.8 % Normal 11.5 - 14.5 [facility] Comment on above: Performed By: #### C BCDF #### [facility] [address] [place] [address] Hematocrit (Bld) [Volume fraction] 41.3 % Normal 36.0 - 46.0 [facility] Comment on above: Performed By: #### C BCDF #### [facility] [address] [place] [address] Hemoglobin (Bld) [Mass/Vol] 13.9 g/dL Normal 12.0 - 16.0 [facility] Comment on above: Performed By: #### C BCDF #### [facility] [address] [place] [address] Lymphocytes (Bld) [#/Vol] 2.25 10*3/uL Normal 1.20 - 4.80 [facility] Comment on above: Performed By: #### C BCDF #### [facility] [address] [place] [address] Lymphocytes/100 WBC (Bld) 19.9 % Normal 13.0 - 44.0 [facility] Comment on above: Performed By: #### C BCDF #### [facility] [address] [place] [address] MCHC (RBC) [Mass/Vol] 33.7 g/dL Normal 32.0 - 36.0 [facility] Comment on above: Performed By: #### C BCDF #### [facility] [address] [place] [address] MCV (RBC) [Entitic vol] 91 fL Normal 80 - 100 U [facility] Comment on above: Performed By: #### C BCDF #### [facility] [address] [place] [address] Monocytes (Bld) [#/Vol] 0.66 10*3/uL Normal 0.10 - 1.0 0 [facility] Comment on above: Performed By: #### C BCDF #### [facility] [address] [place] [address] Monocytes/100 WBC (Bld) 5.8 % Normal 2.0 - 10.0 [facility] Comment on above: Performed By: #### C BCDF #### [facility] [address] [place] [address] Neutrophils (Bld) [#/Vol] 7.92 10*3/uL High 1.20 - 7.70 [facility] Comment on above: Performed By: #### C BCDF #### [facility] [address] [place] [address] Neutrophils/100 WBC (Bld) 70.1 % Normal 40.0 - 80.0 [facility] Comment on above: Performed By: #### C BCDF #### [facility] [address] [place] [address] Platelets (Bld) [#/Vol] 281 10*3/uL Normal 150 - 450 [facility] Comment on above: Performed By: #### C BCDF #### [facility] [address] [place] [address] RBC 4.54 x10E12/L Normal 4.00 - 5.20 [facility] Comment on above: Performed By: #### C BCDF #### [facility] [address] [place] [address] WBC (Bld) [#/Vol] 11.3 10*3/uL Normal 4.4 - 11.3 [facility] Comment on above: Performed By: #### C BCDF #### [facility] [address] [place] [address] COMPREHENSIVE PANELon 2022 Albumin [Mass/Vol] 4.3 g/dL Normal 3.4 - 5.0 [facility] Comment on above: Performed By: #### C MP #### [facility] [address] [place] [address] ALP [Catalytic activity/Vol] 44 U/L Normal 33 - 110 [facility] Comment on above: Performed By: #### C MP #### [facility] [address] [place] [address] ALT [Catalytic activity/Vol] 26 U/L Normal 7 - 45 [facility] Comment on above: Result Comment: Gloria ents treated with Sulfasalazine may generate falsely decreased results for ALT. Performed By: #### C MP #### [facility] [address] [place] [address] Anion gap [Moles/Vol] 13 mmol/L Normal 10 - 20 [facility] Comment on above: Performed By: #### C MP #### [facility] [address] [place] [address] AST [Catalytic activity/Vol] 15 U/L Normal 9 - 39 [facility] Comment on above: Performed By: #### C MP #### [facility] [address] [place] [address] Bilirubin [Mass/Vol] 0.3 mg/dL Normal 0.0 - 1.2 [facility] Comment on above: Performed By: #### C MP #### [facility] [address] [place] [address] Calcium [Mass/Vol] 9.5 mg/dL Normal 8.6 - 10.3 [facility] Comment on above: Performed By: #### C MP #### [facility] [address] [place] [address] Chloride [Moles/Vol] 105 mmol/L Normal 98 - 107 [facility] Comment on above: Performed By: #### C MP #### [facility] [address] [place] [address] Creatinine [Mass/Vol] 0.68 mg/dL Normal 0.50 - 1.05 [facility] Comment on above: Performed By: #### C MP #### [facility] [address] [place] [address] eGFR FEMALE >90 Normal >90 [facility] Comment on above: Result Comment: CALC ULATIONS OF ESTIMATED GFR ARE PERFORMED USING THE 2020 CKD-EPI STUDY REFIT EQUATION WITHOUT THE RACE VARIABLE FOR THE IDMS-TRACEABLE CREATININE METHODS. https://tonosn.asnjournals.org/content/early/ASN.2020 156583 Performed By: #### C MP #### [facility] [address] [place] [address] Glucose [Mass/Vol] 105 mg/dL High 74 - 99 [facility] Comment on above: Performed By: #### C MP #### [facility] [address] [place] [address] HCO3 (Bld) [Moles/Vol] 28 mmol/L Normal 21 - 32 [facility] Comment on above: Performed By: #### C MP #### [facility] [address] [place] [address] Potassium [Moles/Vol] 3.8 mmol/L Normal 3.5 - 5.3 [facility] Comment on above: Performed By: #### C MP #### [facility] [address] [place] [address] Protein [Mass/Vol] 6.7 g/dL Normal 6.4 - 8.2 [facility] Comment on above: Performed By: #### C MP #### [facility] [address] [place] [address] Sodium [Moles/Vol] 142 mmol/L Normal 136 - 145 [facility] Comment on above: Performed By: #### C MP #### [facility] [address] [place] [address] Urea nitrogen [Mass/Vol] 20 mg/dL Normal 6 - 23 [facility] Comment on above: Performed By: #### C MP #### [facility] [address] [place] [address] Covid 19 Resultson 3 SARS-CoV-2 (COVID-19) RNA HEENA+probe Ql (Unsp spec) NEGATIVE COVID-19 Test Coronaviruses are common world-wide and are the cause of many common colds. SARS-COV2 is a new coronavirus that began circulating worldwide in 2019 so we are calling it COVID-19. It has been estimated that four out of five patients with COVID-19 will recover at home without the need for medical attention. Symptoms of COVID-19 may include cough, fever, shortness of breath, loss of taste or smell and other flu-like symptoms including chills, sore muscles, sore throat, and headache. Severe illness is more common in older people and people with other health problems such as high blood pressure, obesity, and immune system problems. If the test is positive, you have COVID-19. You will be contacted by the ordering physicians office and instructed to remain on home isolation, in accordance with CDC guidelines. You may also be contacted by the [facility] to see if any of your close contacts may have been exposed to the virus and need to quarantine. If the test is negative, you likely do not have COVID-19 at this time, but you still may have a different illness that can spread to other people (like Influenza, or the Flu) and could still be at risk for getting COVID-19. We recommend that you stay away from other people to limit the spread of illness until your symptoms are improving and you are fever-free for 24 hours without the use of fever lowering medications such as acetaminophen or ibuprofen. No test is 100% accurate so if you are still concerned you may have COVID-19, talk to your doctor about the need to continue to stay away from others. Medicines Unless your provider told you not to use the following: Acetaminophen (Tylenol and others) is generally safe. Anti-inflammatory medications, such as Ibuprofen (Advil or Motrin) or Naproxen (Aleve) can also be used. Ypnc-yrv-sencaxj cough and cold medicines can be used according to the instructions on the package. Some pvet-kcu-lqyveil medicines also contain acetaminophen. Make sure you are not taking more than your recommended dose. For those not hospitalized, there is no specific treatment available for this illness. Antibiotics do not treat Coronaviruses. Follow-Up Follow up with your doctor by scheduling a virtual visit or consider follow-up at one of our urgent care fever clinics. If you are having difficulty breathing, or are very weak and having difficulty standing, this is a medical emergency. Call 911 or have someone take you to the nearest emergency room immediately. If possible, wear a facemask. Additional guidance from the CDC for patients who tested POSITIVE for COVID-19 How to isolate: Isolate yourself in a specific room at home and limit your contact with others. Use a separate bathroom from other members of the household, when possible. Leave home only to get essential medical care. Do not go to work, school or public areas. Avoid using public transportation, ride-sharing, or taxis. Restrict contact with pets and other animals. If you must care for your pet or be around animals while you are sick, wash your hands before and after your interaction and wear a facemask. Make sure that shared spaces in the home have good airflow, such as by an air conditioner or an opened window, weather permitting. Personal Hygiene Procedures: Wear a face mask when in the same room as other people or pets. If a face mask interferes with your breathing, others should wear a mask when sharing space with you. Frequent hand-washing: wash your hands with soap and water for at least 20 seconds. If soap and water are not available, use alcohol-based hand surface water manager. Avoid touching your eyes, nose, and mouth with unwashed hands. Household Hygiene Procedures: Avoid sharing personal household items such as dishes, glassware, cups, eating utensils, towels or bedding with other people or pets in your home. After use, these items should be washed with soap and hot water. Disinfect all high-touch surfaces every day with antibacterial cleaning solutions such as Lysol wipes, bleach, cleansers, etc. High-touch surfaces include tabletops, doorknobs, bathroom fixtures, toilets, phones, keyboards, tablets and bedside tables. Immediately clean any surfaces that may have blood, poop or body fluids on them, using antibacterial cleaning solutions such as Lysol wipes, bleach, cleansers, etc. If clothing or bedding come into contact with blood, poop or body fluids, they should be washed immediately. Follow the directions on the laundry detergent and clothing labels but hot water is recommended when possible. Stopping home isolation precautions: If possible, consult your doctor before stopping home isolation precautions. According to the CDC, you can discontinue home isolation precautions when you have met both of these criteria: Your fever and respiratory symptoms have been gone for 24 rachelle (more content not included)... Normal [facility] DRUG SCREEN,URINEon 05-13-19 23 AMPHETAMINE SCREEN,U Negative Normal NEGATIVE [facility] Comment on above: Result Comment: CUTO FF LEVEL: 500 NG/ML Cross-reactivity has been reported with high concentrations of the following drugs: buproprion, chloroquine, chlorpromazine, ephedrine, mephentermine, fenfluramine, phentermine, phenylpropanolamine, pseudoephedrine, and propranolol. Performed By: #### D RUG3 #### [facility] [address] [place] [address] BARBITURATES SCREEN,U Negative Normal NEGATIVE [facility] Comment on above: Result Comment: CUTO FF LEVEL: 200 NG/ML Performed By: #### D RUG3 #### [facility] [address] [place] [address] BENZODIAZEPINES SCREEN,U Negative Normal NEGATIVE [facility] Comment on above: Result Comment: CUTO FF LEVEL: 200 NG/ML Performed By: #### D RUG3 #### [facility] [address] [place] [address] CANNABINOIDS SCREEN,U Negative Normal NEGATIVE [facility] Comment on above: Result Comment: CUTO FF LEVEL: 50 NG/ML Performed By: #### D RUG3 #### [facility] [address] [place] [address] COCAINE METABOLITE SCREEN,U Negative Normal NEGATIVE [facility] Comment on above: Result Comment: CUTO FF LEVEL: 150 NG/ML Performed By: #### D RUG3 #### [facility] [address] [place] [address] DRUG SCREEN COMMENT SEE BELOW Normal [facility] Comment on above: Result Comment: Drug screen results are presumptive and should not be used to assess compliance with prescribed medication. Contact the performing [facility] laboratory to add-on definitive confirmatory testing if clinically indicated. . Toxicology screening results are reported qualitatively. The concentration must be greater than or equal to the cutoff to be reported as positive. The concentration at which the screening test can detect an individual drug or metabolite varies. The absence of expected drug(s) and/or drug metabolite(s) may indicate non-compliance, inappropriate timing of specimen collection relative to drug administration, poor drug absorption, diluted/adulterated urine, or limitations of testing. For medical purposes only; not valid for forensic use. . Interpretive questions should be directed to the laboratory medical directors. Performed By: #### D RUG3 #### [facility] [address] [place] [address] FENTANYL SCREEN,URINE Negative Normal NEGATIVE [facility] Comment on above: Result Comment: CUTO FF LEVEL: 5 NG/ML Performed By: #### D RUG3 #### [facility] [address] [place] [address] METHADONE SCREEN,U Negative Normal NEGATIVE [facility] Comment on above: Result Comment: CUTO FF LEVEL: 150 NG/ML The metabolite J-mwgwl-fabendlmmgtyep (LAAM) is not detected by this method in concentrations that would be found in the urine of patients on LAAM therapy. Performed By: #### D RUG3 #### [facility] [address] [place] [address] OPIATES SCREEN,U Negative Normal NEGATIVE [facility] Comment on above: Result Comment: CUTO FF LEVEL: 300 NG/ML The opiate screen does not detect fentanyl, meperidine, or tramadol. Oxycodone is not consistently detected (refer to Oxycodone Screen, Urine result). Performed By: #### D RUG3 #### [facility] [address] [place] [address] OXYCODONE SCREEN,U Negative Normal NEGATIVE [facility] Comment on above: Result Comment: CUTO FF LEVEL: 100 NG/ML This test will accurately detect both oxycodone and oxymorphone. Performed By: #### D RUG3 #### [facility] [address] [place] [address] PCP SCREEN,U Negative Normal NEGATIVE [facility] Comment on above: Result Comment: CUTO FF LEVEL: 25 NG/ML Cross-reactivity has been reported with dextromethorphan. Performed By: #### D RUG3 #### [facility] [address] [place] [address] HCG,URINEon 05-13-2022 Beta HCG ( test) Ql (U) Negative Normal Negative [facility] Comment on above: Performed By: #### H CGU #### [facility] [address] [place] [address] INFLUENZA A/B, COVID 2019 PC R,SYMPTOMATICon 05-13-2022 INFLUENZA A, PCR Not detected Normal Not Detected [facility] Comment on above: Result Comment: Resp iratory virus testing is performed routinely by PCR for Influenza A/B and RSV. Not Detected results do not preclude Influenza A/B or RSV infections since the adequacy of sample collection or low viral burden may impact the clinical sensitivity of this test method. Performed By: #### C OINP #### [facility] [address] [place] [address] INFLUENZA B, PCR Not detected Normal Not Detected [facility] Comment on above: Result Comment: Resp iratory virus testing is performed routinely by PCR for Influenza A/B and RSV. Not Detected results do not preclude Influenza A/B or RSV infections since the adequacy of sample collection or low viral burden may impact the clinical sensitivity of this test method. Performed By: #### C OINP #### [facility] [address] [id number] SARS-CoV-2 (COVID-19) RNA HEENA+probe Ql (Unsp spec) Not detected Normal Not Detected [facility] Comment on above: Result Comment: . This test has received FDA Emergency Use Authorization (EUA) and has been verified by [facility]. This test is only authorized for the duration of time that circumstances exist to justify the authorization of the emergency use of in vitro diagnostic tests for the detection of SARS-CoV-2 virus and/or diagnosis of COVID-19 infection under section 564(b)(1) of the Act, 21 U.S.C. 360bbb-3(b)(1), unless the authorization is terminated or revoked sooner. [facility] is certified under CLIA-88 as qualified to perform high complexity testing. Testing is performed in the [facility] laboratory located at [address] [id number]. SARS-CoV-2/Flu/RSV Multiplex Test: Fact sheet for providers: https://www.fda.gov/media/878763/download Fact sheet for patients: https://www.fda.gov/media/560266/download Performed By: #### C OINP #### [facility] [address] [id number] Lab Specimen Source Nasal, Nasopharyngeal Normal [facility] Comment on above: Performed By: #### C OINP #### [facility] [address] [id number] Provider Note - ED Care Bianchi sitionon 05-13-2022 Provider Note - ED Care Transition ED Care Transition: Chart Review: ED NOTES ED NOTES: Patient was given to me in signout. She was able to be medically cleared. Case was discussed with EPAT did refer patient for inpatient hospitalization to [facility]. The patient was without complaints during her stay in the ED. CLINICAL IMPRESSION Diagnosis/Annotation: ED Dx Name:Intentional Zyprexa overdose, initial encounter Code:T43.592A Disposition: transferred Transfer Accepted: yes ATTESTATION CRITICAL CARE TIME Is this a critically ill patient: no Electronic Signatures: Kevin Henao) (Signed 20-Jun-2022 10:44) Authored: ED Notes, Clinical Impression, Attestation, Chart Review, Scores Last Updated: 20-Jun-2022 10:44 by Kevin Henao) Normal [facility] Provider Note - ED v3on Provider Note - ED v3 Provider Note: Chart Review ED NOTES ED NOTES: Chief complaint: Suicidal ideation/possible attempt History of present illness: The patient presents with suicidal ideation and depression. She just feels down. She states she took 12 Zyprexa 5 mg. She also takes Prozac and gabapentin. She denies overdosing on any other medication. She denies taking any other drugs or alcohol. She states that she cannot use marijuana for over 2 months. When confronted on why she took 12 of her Zyprexa she says I was not necessarily is suicidal. She states I knew it would take more to kill myself . PMH/PSH/FMH reviewed in EMR Pertinent PMH/PSH/FMH: Completed and reviewed and nonpertinent Social Hx: Completed and reviewed denies pertinent ROS: Was negative except as below Gen.: No weight loss, fever, chills Eyes: No change in vision or eye pain ENT: No sore throat or neck swelling Cardiac: No chest pain, palpitations Pulmonary: No shortness of breath, cough, hemoptysis. Heme/lymph: No swollen glands, easy bleeding GI: No abdominal pain, change in stools, nausea : No burning with urination or increased frequency Musculoskeletal: No joint swelling Skin: No rashes. Psych: No depression, anxiety Physical Exam: Appearance: Alert, cooperative, no acute distress. Well nourished & well hydrated. Skin: No rash. No diaphoresis. No petechiae or purpura seen. HEENT: Normocephalic, atraumatic, PERRL, EOMs intact without nystagmus, Conjunctiva pink with no redness or exudates, Eyelids without lesions. No scleral icterus. Hearing grossly intact. Nose without new deformity or bleeding. Pharynx clear, uvula midline, mucus membranes moist, voice normal. Neck: Supple, without meningismus. No obvious lymphadenopathy. Trachea midline. Pulmonary: Clear bilaterally with good chest wall excursion. No rales, rhonchi or wheezing. No consolidative findings. No accessory muscle use or stridor. Cardiac: Normal S1, S2 without murmur, rubs. Abdomen: Soft, nontender, active bowel sounds. No peritoneal signs. Genitourinary: No CVA tenderness. Musculoskeletal: Full range of motion. No pain, edema, or deformity. Distal pulses intact. Neurological: moves all 4 extremities with equal strength. Oriented x 3. No obvious lateralizing findings. Psychiatric: Appropriate mood and affect. Pertinent results: See EHR ECG if done; interpreted by ED physician: ED Course/ Med decision making/Plan: The patient does not currently a satisfactory story for why she took 12 Zyprexa. I do feel this was a suicidal attempt/gesture. Will discuss with EPAT. Final disposition per EPAT. HISTORY OF PRESENTING ILLNESS ROSHAN is a 31 year old Female and was seen by me at 12-May-2022 23:00 for a chief complaint of overdose . Other complaints include: Pt states she does not know why she took 12, 5mg cyprexa, although state she did not want to hurt herself. She does state that she has tried hurting herself in the past. . Triage Information: Most recent Vital Sign Value Date Temp (F): 98.4 05-12-2022 22:59 Temp (C): 36.8 05-12-2022 22:59 Heart Rate (beats/min): 109 05-12-2022 22:59 Respirations (breaths/min): 16 05-12-2022 22:59 SpO2 (%): 97 05-12-2022 22:59 BP Systolic (mm Hg): 147 05-12-2022 22:59 BP Diastolic (mm Hg): 85 05-12-2022 22:59 PAST MEDICAL HISTORY ALLERGIES/INTOLERANCES : Allergy Allergen: Compazine Type: Drug Reaction: Other HEALTH HISTORY: No documented data. OUTPATIENT MEDICATIONS: Home Medications Review Status for Reconciliation: N/A Med Status: N/A No documented data. SIGNIFICANT EVENTS: Past Medical History Description:POTS DISPOSITION Diagnosis/Annotation: ED Dx Name:Intentional Zyprexa overdose, initial encounter Code:T43.592A Signed Out to Incoming Provider Disposition: HANDOFF Signed out to Incoming Provider: Kevin Henao CONSULT CRITICAL CARE TIME Is this a critically ill patient: no Electronic Signatures for Addendum Section: Kary Teran) (Signed Addendum 13-May-2022 07:35) EKG interpreted by myself. Normal sinus rhythm at a rate of 78 bpm. Normal intervals. Normal axis. No signs of acute ischemia Electronic Signatures: Kary Teran) (Signed 13-May-2022 07:34) Authored: ED Notes, HPI, PMH, PE, Clinical Impression, Attestation, Chart Review, Scores Last Updated: 13-May-2022 07:35 by Kary Teran) References: 1. Data Referenced From Triage - ED 12-May-2022 22:59 Normal [facility] Triage - EDon 05-13-2022 Triage - ED Quick Triage: Are You no Have You Given In The Last 6 Weeksno Are You Currently Breastfeedingno Chart Review: ARRIVAL INFORMATION Mode of Arrival: ambulance Agency: City Agency Name: [facility] CHIEF COMPLAINT ROSHAN DOMÍNGUEZ is a Female patient with a chief complaint of overdose. Onset of the Complaint: 12-May-2022 19:00 Other Complaints: Pt states she does not know why she took 12, 5mg Zyprexa, although states she did not want to hurt herself. She does state that she has tried hurting herself in the past. Triage Date/Time: 12-May-2022 22:59 SHRUTI: 2 Pain Rating (0-10): 0 = None Vital Signs: Temperature: 98.4F ( 36.8C) taken temporal Blood Pressure: 147/85 Mean: Heart Rate: 109 Respiratory Rate: 16 Pulse Oximetry: 97% on room air, no respiratory support. Height: 5 feet 2.00 inches. 157.4 CM Weight: 152.1 pounds. Calculated 69.0 kg. Calculated BMI (kg/m2): 27.850 Calculated BSA (m2) 1.74 Jodi Coma Scale: Best Eye Response: (E4) spontaneous Best Motor Response: (M6) obeys commands Best Verbal Response: (V5) oriented Jodi Score: 15 Cough lasting greater than 3 weeks: no Allergies: yes Patient has homicidal thoughts: no Symptoms Are Negative For: agitated, confusion, diaphoresis, dyspnea, headache, loss of consciousness, numbness, seizure, shivering and vomiting. Risk Screens Suicide Risk Screen In the Past Month: Have you wished you were or wished you could go to sleep and not wake up yes In the Past Month: Have you had any actual thoughts of killing yourself yes In the Past Month: Have you been thinking about how you might do this yes In the Past Month: Have you had these thoughts and had some intention of acting on them yes In the Past Month: Have you started to work out or worked out the details of how to kill yourself Do you intend to carry out this plan yes In Your Lifetime: Have you ever done anything, started to do anything, or prepared to do anything to end your life yes Was this within the past 3 months yes Suicide Risk Interventions Low Suicide Risk Interventions: consider behavioral health resources will be given at discharge Moderate Suicide Risk Interventions: Interventions initiated: comfort care provided, items from room which may be used to harm self removed, patient placed in an easily observable room with curtain remaining open, patient placed in gown and wanded, provider notified, remaining risks identified and mitigated, therapeutic diversion offered (puzzles, games, journaling, TV blank box) elopement risk identified; hourly behavioral assessment performed; patient observer at bedside, verbal handoff given; patient placed in psych safe room and personal belongings secured ancillary staff and police/security notified of elopement risk High Suicide Risk Interventions: patient under constant observation at all timesicon high Items removed from room: bedside table/carts, bulletin board push pins and tasks, cleaning solutions/chemicals, coat hangers, gloves, IV poles, linen bin, loose cords (monitor cords, electric, tubing), otoscope, oxygen/oxygen canister, plastic bags (including trash bags), suction regulators, sharp or glass objects, sharps container, and scissors Remaining risks identified and mitigated: bed/stretcher Amaya Fall Scale Screening Has the patient fallen before (or is the patient in the ED as a result of a fall) has not had a fall Does the patient have an impaired gait does not have impaired gait Is the patient cognitively impaired not cognitively impaired Interventions: Amaya Fall Interventions: LOW INTERVENTIONS: *patient oriented to surroundings and call system, * patient/family falls education completed and documented, *patients fall status communicated during bedside handoff, *whiteboard updated, *mode of toileting discussed with patient, *bed in low position with brakes locked, *call light in reach, * non-skid footwear TRAVEL HISTORY Travel History Coronavirus Screening: no exposure or symptoms Travel Exposure History: NO travel to International locations in the past 30 days PAIN Pain Scale Used: AMEYA Pain Rating (0-10): 0 = None Past Medical History: Past Medical History Reviewedyes Electronic Signatures: Jeromy Martinez (EMT-P) (Signed 12-May-2022 23:06) Entered: Risk Screens, Pain, Travel History, Chart Review, Scores Authored: Quick Triage, Risk Screens, Pain, Travel History, Chart Review, Scores Rima Mendiola (RN) (Signed 13-May-2022 03:24) Authored: Quick Triage, Risk Screens, Chart Review, Past Medical History Last Updated: 13-May-2022 03:24 by Rima MendiolaRN) Normal [facility] URINALYSIS WITH CULTURE IF I NDICATEDon 05-13-2022 Appearance (U) CLOUDY Normal CLEAR [facility] Comment on above: Performed By: #### U ARFX #### [facility] [address] [place] [address] Bilirubin Ql (U) Negative Normal NEGATIVE [facility] Comment on above: Performed By: #### U ARFX #### [facility] [address] [place] [address] Color (U) YELLOW Normal STRAW,YELLOW [facility] Comment on above: Performed By: #### U ARFX #### [facility] [address] [place] [address] Glucose Ql (U) Negative Normal NEGATIVE [facility] Comment on above: Performed By: #### U ARFX #### [facility] [address] [place] [address] Hemoglobin Ql (U) Negative Normal NEGATIVE [facility] Comment on above: Performed By: #### U ARFX #### [facility] [address] [place] [address] Ketones Ql (U) Negative Normal NEGATIVE [facility] Comment on above: Performed By: #### U ARFX #### [facility] [address] [place] [address] Leukocyte esterase Test strip Ql (U) Negative Normal NEGATIVE [facility] Comment on above: Performed By: #### U ARFX #### [facility] [address] [place] [address] Nitrite Ql (U) Negative Normal NEGATIVE [facility] Comment on above: Performed By: #### U ARFX #### [facility] [address] [place] [address] pH (U) 7.0 [pH] Normal 5.0 - 8.0 [facility] Comment on above: Performed By: #### U ARFX #### [facility] [address] [place] [address] Protein Ql (U) Negative Normal NEGATIVE [facility] Comment on above: Performed By: #### U ARFX #### [facility] [address] [place] [address] Specific gravity (U) [Rel density] 1.012 Normal 1.005 - 1.035 [facility] Comment on above: Performed By: #### U ARFX #### [facility] [address] [place] [address] Urobilinogen (U) [Mass/Vol] mg/dL Normal 0.0 - 1.9 [facility] Comment on above: Performed By: #### U ARFX #### [facility] [address] [place] [address] MAGNESIUMon 02-25-2022 Magnesium [Mass/Vol] 2.16 mg/dL Normal 1.60 - 2.40 [facility] Comment on above: Performed By: #### M G #### [facility] [address] [place] [address] PHOSPHORUSon 02-25-2022 Phosphate [Mass/Vol] 3.6 mg/dL Normal 2.5 - 4.9 [facility] Comment on above: Result Comment: The performance characteristics of phosphorus testing in heparinized plasma have been validated by the individual laboratory site where testing is performed. Testing on heparinized plasma is not approved by the FDA; however, such approval is not necessary. Performed By: #### P HOS #### [facility] [address] [place] [address] ACUTE TOXICOLOGY PANEL, BLOO Don 02-24-2022 SALICYLATE <3 Normal 4 - 20 [facility] Comment on above: Performed By: #### D RUBL #### [facility] [address] [place] [address] Acetaminophen [Mass/Vol] ug/mL Normal 10.0 - 30.0 [facility] Comment on above: Performed By: #### D RUBL #### [facility] [address] [place] [address] Ethanol [Mass/Vol] mg/dL Normal [facility] Comment on above: Result Comment: FOR MEDICAL USE ONLY. . REF VALUES <10 Performed By: #### D RUBL #### [facility] [address] [place] [address] CBC AND DIFFERENTIALon 02-24 % AUTOMATED IMMATURE GRAN 0.2 % Normal 0.0 - 0.9 [facility] Comment on above: Result Comment: Ele ture Granulocyte Count (IG) includes promyelocytes, myelocytes and metamyelocytes but does not include bands. Percent differential counts (%) should be interpreted in the context of the absolute cell counts (cells/L). Performed By: #### C BCDF #### [facility] [address] [place] [address] Basophils (Bld) [#/Vol] 0.06 10*3/uL Normal 0.00 - 0.[address] [facility] Comment on above: Performed By: #### C BCDF #### [facility] [address] [place] [address] Basophils/100 WBC (Bld) 0.6 % Normal 0.0 - 2.0 [facility] Comment on above: Performed By: #### C BCDF #### [facility] [address] [place] [address] Eosinophils (Bld) [#/Vol] 0.10 10*3/uL Normal 0.00 - 0.70 [facility] Comment on above: Performed By: #### C BCDF #### [facility] [address] [place] [address] Eosinophils/100 WBC (Bld) 1.0 % Normal 0.0 - 6.0 [facility] Comment on above: Performed By: #### C BCDF #### [facility] [address] [place] [address] Erythrocyte distribution width (RBC) [Ratio] 12.8 % Normal 11.5 - 14.5 [facility] Comment on above: Performed By: #### C BCDF #### [facility] [address] [place] [address] Hematocrit (Bld) [Volume fraction] 37.0 % Normal 36.0 - 46.0 [facility] Comment on above: Performed By: #### C BCDF #### [facility] [address] [place] [address] Hemoglobin (Bld) [Mass/Vol] 13.0 g/dL Normal 12.0 - 16.0 [facility] Comment on above: Performed By: #### C BCDF #### [facility] [address] [place] [address] Lymphocytes (Bld) [#/Vol] 1.94 10*3/uL Normal 1.20 - 4.80 [facility] Comment on above: Performed By: #### C BCDF #### [facility] [address] [place] [address] Lymphocytes/100 WBC (Bld) 20.3 % Normal 13.0 - 44.0 [facility] Comment on above: Performed By: #### C BCDF #### [facility] [address] [place] [address] MCHC (RBC) [Mass/Vol] 35.1 g/dL Normal 32.0 - 36.0 [facility] Comment on above: Performed By: #### C BCDF #### [facility] [address] [place] [address] MCV (RBC) [Entitic vol] 91 fL Normal 80 - 100 [facility] Comment on above: Performed By: #### C BCDF #### [facility] [address] [place] [address] Monocytes (Bld) [#/Vol] 0.52 10*3/uL Normal 0.10 - 1.[address] [facility] Comment on above: Performed By: #### C BCDF #### [facility] [address] [place] [address] Monocytes/100 WBC (Bld) 5.5 % Normal 2.0 - 10.0 [facility] Comment on above: Performed By: #### C BCDF #### [facility] [address] [place] [address] Neutrophils (Bld) [#/Vol] 6.90 10*3/uL Normal 1.20 - 7.70 [facility] Comment on above: Performed By: #### C BCDF #### [facility] [address] [place] [address] Neutrophils/100 WBC (Bld) 72.4 % Normal 40.0 - 80.0 [facility] Comment on above: Performed By: #### C BCDF #### [facility] [address] [place] [address] NUCLEATED RBC 0.0 /100 WBC Normal 0.0-0.0 [facility] Comment on above: Performed By: #### C BCDF #### [facility] [address] [place] [address] Platelets (Bld) [#/Vol] 233 10*3/uL Normal 150 - 450 [facility] Comment on above: Performed By: #### C BCDF #### [facility] [address] [place] [address] RBC 4.06 x10E12/L Normal 4.00 - 5.20 [facility] Comment on above: Performed By: #### C BCDF #### [facility] [address] [place] [address] WBC (Bld) [#/Vol] 9.5 10*3/uL Normal 4.4 - 11.3 [facility] Comment on above: Performed By: #### C BCDF #### [facility] [address] [place] [address] COMPREHENSIVE PANELon 2021 Albumin [Mass/Vol] 4.3 g/dL Normal 3.4 - 5.0 [facility] Comment on above: Performed By: #### C MP ####[id number] [place] [address] ALP [Catalytic activity/Vol] 41 U/L Normal 33 - 110 [facility] Comment on above: Performed By: #### C MP ####[id number] [place] [address] ALT [Catalytic activity/Vol] 11 U/L Normal 7 - 45 [facility] Comment on above: Result Comment: Gloria ents treated with Sulfasalazine may generate falsely decreased results for ALT. Performed By: #### C MP ####[id number] [place] [address] Anion gap [Moles/Vol] 14 mmol/L Normal 10 - 20 [facility] Comment on above: Performed By: #### C MP ####[id number] [place] [address] AST [Catalytic activity/Vol] 10 U/L Normal 9 - 39 [facility] Comment on above: Performed By: #### C MP ####[id number] [place] [address] Bilirubin [Mass/Vol] 0.4 mg/dL Normal 0.0 - 1.2 [facility] Comment on above: Performed By: #### C MP ####[id number] [place] [address] Calcium [Mass/Vol] 9.2 mg/dL Normal 8.6 - 10.6 [facility] Comment on above: Performed By: #### C MP ####[id number] [place] [address] Chloride [Moles/Vol] 109 mmol/L High 98 - 107 [facility] Comment on above: Performed By: #### C MP ####[id number] [place] [address] Creatinine [Mass/Vol] 0.76 mg/dL Normal 0.50 - 1.05 [facility] Comment on above: Performed By: #### C MP ####[id number] [place] [address] eGFR FEMALE >90 Normal >90 [facility] Comment on above: Result Comment: CALC ULATIONS OF ESTIMATED GFR ARE PERFORMED USING THE 2020 CKD-EPI STUDY REFIT EQUATION WITHOUT THE RACE VARIABLE FOR THE IDMS-TRACEABLE CREATININE METHODS. https://jasn.asnjournals.org/content//ASN.2020 925885 Performed By: #### C MP ####[id number] [place] [address] Glucose [Mass/Vol] 92 mg/dL Normal 74 - 99 [facility] Comment on above: Performed By: #### C MP ####[id number] [place] [address] HCO3 (Bld) [Moles/Vol] 23 mmol/L Normal 21 - 32 [facility] Comment on above: Performed By: #### C MP ####[id number] [place] [address] Potassium [Moles/Vol] 3.7 mmol/L Normal 3.5 - 5.3 [facility] Comment on above: Performed By: #### C MP ####[id number] [place] [address] Protein [Mass/Vol] 6.7 g/dL Normal 6.4 - 8.2 [facility] Comment on above: Performed By: #### C MP ####[id number] [place] [address] Sodium [Moles/Vol] 142 mmol/L Normal 136 - 145 [facility] Comment on above: Performed By: #### C MP ####[id number] [place] [address] Urea nitrogen [Mass/Vol] 7 mg/dL Normal 6 - 23 [facility] Comment on above: Performed By: #### C MP ####[id number] [place] [address] Consult - Psychiatryon 02-24 Consult - Psychiatry History of Present Illness: Admission Reason: anxiety HPI: This is a 31-year-old woman with past psychiatric history of MDD vs. Bipolar Depression, SHE, Borderline PD, and Unspecified Feeding/Eating Disorder, who [facility] from the residential [facility] complaining of severe anxiety. 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 States she has been doing well with eating since starting. However, notes the psychiatrist immediately discontinued all her home medications. She lists Paxil, Zyprexa, and [place] and notes she had been started on these during her last psych admission in December 2021. She states ever since he stopped her medications, she has been struggling with panic attacks, feeling like her skin is crawling, tremors, and insomnia. Denies brain zap sensation. He has only seen her once since and wont give her anything for the anxiety. She states he told her the spike in anxiety is because she is withdrawing from cannabis and isnt listening to her. Patient states she feels a little better since getting ativan and would like to get back to the [facility] because she is worried they will give her spot away. Denies any depressive symptoms or SI/HI/AH/VH. Per [facility] nurse, : Home [place] 450mg QHS, Zyprexa 5mg QHS, and Paxil 10mg daily were discontinued on admission on 02/16. Psychiatrist, Dr. Orlando Tinsley, started patient on Prozac 20mg on 02/16. Psych ROS: As per HPI Medical ROS: General: DENIES fever, chills ENMT: DENIES sore throat, congestion Cardiovascular: DENIES chest pain, palpitations Respiratory: DENIES cough, SOB Gastrointestinal: DENIES nausea, vomiting, diarrhea, constipation Musculoskeletal: DENIES pain, stiffness Neurologic: DENIES headache, weakness PAST MEDICAL HX: None Past Psychiatric History: Prior Diagnoses: MDD vs. Bipolar Depression, SHE, Borderline PD, Unspecified Feeding/Eating Disorder Prior Hospitalizations: multiple at [facility] inpatient, last admission in December 2021 for SI Suicide Attempts/self harm: endorses 4-5 prior ODs. Last attempt in August 2021 via OD on Celexa Outpatient treatment: [facility] Saute Chef: Arlene at [facility] Outpatient Current psychiatric medications: Prozac 20mg daily Past psychiatric medications: Zyprexa 5mg QHS, Paxil 10mg daily and [place] 450mg QHS all just discontinued on 02/16, celexa (increased suicidality), and Zoloft Social History: Social History: Born: in [place], [place] Currently lives: alone Work/Finances: did not assess Marital history/children: single, lesbian, not on control. Social support: no one, asks for her family not to be notified. Sister in [place], parents in [place] Access to Weapons: denies SUBSTANCE HX: Alcohol: denies Tobacco: 2 cig/day Cannabis: vapes cannabis oil once daily. Has not used since being at the [facility] over the last week. Illicit substances: denies Allergies: Compazine: Other Medications Prior to Admission: Admission Medication Reconciliation has not been completed for this patient. OARRS Review: OARRS checked: yes OARRS Comments: unremarkbable Objective: Objective Information: T PRBPMAPSpO2 [id number]% Date/Time02/24 14: 14: 14: 14: 14:16 Range(36.4C - 36.4C ) (98 - 98 ) (16 - 16 ) (144 - 144 )/ (92 - 92 ) (97% - 97% ) Weights 02/24 14:16: Weight in lbs ((lbs)) 123.4 02/24 14:16: Weight in kg (Weight (kg)) 56 02/24 14:16: BMI (kg/m2) (BMI (kg/m2)) 22.603 Mental Status Exam: General: NAD Appearance: appears stated age, ear length brown hair, well kempt, gaged ears, dressed in hospital attire, sitting in bed Attitude: calm, initially tearful, cooperative, engaged in conversation, splitting noted Behavior: appropriate eye contact Motor Activity: no psychomotor agitation or retardation, mild bilateral shaking in hands, NOT noted to be fine tremors Speech: spontaneous, normal rate, volume, childlike tone Mood: extremely anxious Affect: anxious Thought Process: organized, linear, help seeking Thought Content: Denies SI/HI. No delusions elicited. Thought Perception: Denies AH/VH. Does not appear to be responding to internal stimuli. Cognition: adequate attention and concentration, no gross deficits Insight: limited insight into her diagnosis of borderline PD or the symptoms, limited insight into the affect cannabis has Judgment: poor Functional Estimates: Estimate of Intelligence: average Estimate of Capacity for Activities of Daily Living: independent Medications: Continuous Medications No continuous medications are active Scheduled Medications 1. hydrOXYzine Hydrochloride (ATARAX): 25 m (more content not included)... Normal [facility] DRUG SCREEN,URINEon 02-25-20 22 AMPHETAMINE SCREEN,U Negative Normal NEGATIVE [facility] Comment on above: Result Comment: CUTO FF LEVEL: 500 NG/ML Cross-reactivity has been reported with high concentrations of the following drugs: buproprion, chloroquine, chlorpromazine, ephedrine, mephentermine, fenfluramine, phentermine, phenylpropanolamine, pseudoephedrine, and propranolol. Performed By: #### D RUG3 #### [facility] [address] [place] [address] BARBITURATES SCREEN,U Negative Normal NEGATIVE [facility] Comment on above: Result Comment: CUTO FF LEVEL: 200 NG/ML Performed By: #### D RUG3 #### [facility] [address] [place] [address] BENZODIAZEPINES SCREEN,U Negative Normal NEGATIVE [facility] Comment on above: Result Comment: CUTO FF LEVEL: 200 NG/ML Performed By: #### D RUG3 #### [facility] [address] [place] [address] CANNABINOIDS SCREEN,U Positive Abnormal NEGATIVE [facility] Comment on above: Result Comment: CUTO FF LEVEL: 50 NG/ML Performed By: #### D RUG3 #### [facility] [address] [place] [address] COCAINE METABOLITE SCREEN,U Negative Normal NEGATIVE [facility] Comment on above: Result Comment: CUTO FF LEVEL: 150 NG/ML Performed By: #### D RUG3 #### [facility] [address] [place] [address] DRUG SCREEN COMMENT SEE BELOW Normal [facility] Comment on above: Result Comment: Drug screen results are presumptive and should not be used to assess compliance with prescribed medication. Contact the performing [facility] laboratory to add-on definitive confirmatory testing if clinically indicated. . Toxicology screening results are reported qualitatively. The concentration must be greater than or equal to the cutoff to be reported as positive. The concentration at which the screening test can detect an individual drug or metabolite varies. The absence of expected drug(s) and/or drug metabolite(s) may indicate non-compliance, inappropriate timing of specimen collection relative to drug administration, poor drug absorption, diluted/adulterated urine, or limitations of testing. For medical purposes only; not valid for forensic use. . Interpretive questions should be directed to the laboratory medical directors. Performed By: #### D RUG3 #### [facility] [address] [place] [id number] FENTANYL SCREEN,URINE Negative Normal NEGATIVE [facility] Comment on above: Result Comment: CUTO FF LEVEL: 5 NG/ML Performed By: #### D RUG3 #### [facility] [address] [place] [id number] METHADONE SCREEN,U Negative Normal NEGATIVE [facility] Comment on above: Result Comment: CUTO FF LEVEL: 150 NG/ML The metabolite X-[id number]-[id number] (LAAM) is not detected by this method in concentrations that would be found in the urine of patients on LAAM therapy. Performed By: #### D RUG3 #### [facility] [address] [place] [address] OPIATES SCREEN,U Negative Normal NEGATIVE [facility] Comment on above: Result Comment: CUTO FF LEVEL: 300 NG/ML The opiate screen does not detect fentanyl, meperidine, or tramadol. Oxycodone is not consistently detected (refer to Oxycodone Screen, Urine result). Performed By: #### D RUG3 #### [facility] [address] [place] [id number] OXYCODONE SCREEN,U Negative Normal NEGATIVE [facility] Comment on above: Result Comment: CUTO FF LEVEL: 100 NG/ML This test will accurately detect both oxycodone and oxymorphone. Performed By: #### D RUG3 #### [facility] [address] [place] [address] PCP SCREEN,U Negative Normal NEGATIVE [facility] Comment on above: Result Comment: CUTO FF LEVEL: 25 NG/ML Cross-reactivity has been reported with dextromethorphan. Performed By: #### D RUG3 #### [facility] [address] [place] [address] EMR ADDONon 02-24-2022 ADDON CONFIRMATION REQUEST REC'D Normal [facility] Comment on above: Performed By: #### E MRAD ####NO LOCATION NEEDED Electrocardiogram 12 Leadon 02-24-2022 Electrocardiogram 12 Lead Ventricular Rate 76 Atrial Rate 76 P-R Interval 130 QRS Duration 94 Q-T Interval 368 QTC Calculation(Bazett) 414 P [place] 32 R [place] 45 T [place] 12 QRS Count 13 Q Onset 218 P Onset 153 P Offset 197 T Offset 402 QTC Fredericia 398 Diagnosis Class Normal Diagnosis Please see ED Provider Note for formal interpretation Confirmed by Willam Carrington ([id number]) on 02/24/2022 11:57:[address] [facility] LITHIUMon 02-24-2022 [place] [Moles/Vol] mmol/L Normal 0.60 - 1.20 [facility] Comment on above: Performed By: #### L ITH #### [facility] [address] [place] [address] Provider Note - ED v3on 02-09 Provider Note - ED v3 Provider Note: Chart Review: ED NOTES ED NOTES: This is a 31 yo female with a PMH of anxiety, depression, and an unspecified eating disorder (food restriction / overuse of laxatives in the past) currently in the [facility] - presenting to the ER d/t concern for medication withdrawal. Pt states her medications were abruptly discontinued (paxil and zyprexa) last week by the psychiatrist there (Dr. Orlando Tinsley). Since then, she has been experiencing a BUE resting tremor (worse in the am) and it feels like her skin is crawling. She was also told that her lithium was held by [facility] staff and she hasn't taken it in 2 days. Pt also mentions that she hasn't been sleeping. She was started on medications (paxil/zyprexa) in December and felt like they may have been causing restlessness I was pacing a lot . It is important to the patient that she is able to go back to the program- states she has been there for 1 week. She denies SI/HI. No VH/AH. She has no other medical complaints. ROS otherwise negative. PMH/PSH reviewed General: No apparent distress, answers questions appropriately. Pt is pleasant. HEENT: Normocephalic atraumatic, sclera white. Nose patent bilaterally. Mucous membranes pink and moist. Neck: Trachea midline. Lungs: Clear to auscultation bilaterally. No use of accessory muscles. Heart: Regular rate and rhythm. No obvious murmur. Abdomen: Soft, nontender Extremities: No clubbing, cyanosis or edema. Neuro: +BUE resting tremor, mainly hands. Otherwise, no other motor/sensory or focal deficits. Psych: Normal affect. Pt calm and cooperative. Skin: No acute rash. ED course: A 12 lead EKG was performed and reviewed by the attending physician- sinus arrhythmia 76 bpm. This patient's case was staffed with Dr. Long who was involved with the decision-making and plan of care. See attending note for further details. See lab result. U-tox + marijuana. Pt states that she used to smoke marijuana daily but has not smoked for the past week. While awaiting for psych consult, pt started to cry hysterically and sat on the floor. She was highly anxious and stated that her symptoms were getting worse. The patient was ordered oral ativan and atarax. [facility] nursing staff contacted by psychiatry - it was confirmed that the patient's meds were discontinued, however, the patient was started on prozac during this time. She is taking this daily, although the patient was not forthcoming about this. Pt also has a history of borderline personality disorder. She is welcome to return back to the [facility]. On reexam, pt is feeling better. She confirmed that she is taking prozac and was encouraged to refrain from smoking marijuana. At this point, the patient will be discharged from the emergency department. She is in stable condition and in agreement with treatment plan- verbalized understanding of discharge instructions. Assessment/Plan: #1 anxiety #2 tremors #3 marijuana use Follow-up with your doctor in 2-3 days. Return to the emergency department with any new concerns or if condition worsens. *Please note that portions of this note may have been completed with a voice recognition program. Efforts were made to edit the dictations but occasionally, words are mis-transcribed. HISTORY OF PRESENTING ILLNESS ROSHAN is a 31 year old Female and was seen by me at 24-Feb-2022 15:53 for a chief complaint of other (state that for the past 6 days have Tremors On/Off) . Triage Information: Most recent Vital Sign Value Date Temp (F): 97.5 02-24-2022 14:16 Temp (C): 36.4 02-24-2022 14:16 Heart Rate (beats/min): 98 02-24-2022 14:16 Respirations (breaths/min): 16 02-24-2022 14:16 SpO2 (%): 97 02-24-2022 14:16 BP Systolic (mm Hg): 144 02-24-2022 14:16 BP Diastolic (mm Hg): 92 02-24-2022 14:16 PAST MEDICAL HISTORY ALLERGIES/INTOLERANCES : Allergy Allergen: Compazine Type: Drug Reaction: Other HEALTH HISTORY: No documented data. OUTPATIENT MEDICATIONS: Home Medications Review Status for Reconciliation: N/A Med Status: N/A No documented data. SIGNIFICANT EVENTS: Past Medical History Description:POTS CRITICAL CARE RESULTS: Recent Lab Results: I have reviewed these laboratory results: Drug Screen, Urine 24-Feb-2022 16:33:00 ResultValue Comments. SEE BELOW Drug screen results are presumptive and should not be used to assess compliance with prescribed medication. Contact the performing [facility] laboratory to add-on definitive confirmatory testing if clinically indicated. .Toxicology scre Amphetamine Screen, Urine PRESUMPTIVE NEGATIVE CUTOFF LEVEL: 500 NG/ML Cross-reactivity has been reported with high concentrations of the following drugs: buproprion, chloroquine, chlorpromazine, ephedrine, mephentermine, fenfluramine, phentermine, phenylpropanolamine Barbiturate Screen, Urine PRESUMPTIVE NEGATIVE PRESUMPTIVE NEGATI (more content not included)... Normal [facility] TSHon 02-24-2022 TSH Qn 1.46 m[IU]/L Normal 0.44 - 3.98 [facility] Comment on above: Result Comment: TSH testing is performed using different testing methodology at [facility] than at other [facility]. Direct result comparisons should only be made within the same method. Performed By: #### T SH2 #### [facility] [address] [place] [address] Triage - EDon 02-24-2022 Triage - ED Quick Triage: Are You no Have You Given In The Last 6 Weeksno Are You Currently Breastfeedingno Chart Review: ARRIVAL INFORMATION Mode of Arrival: private vehicle CHIEF COMPLAINT ROSHAN DOMÍNGUEZ is a Female patient with a chief complaint of other (state that for the past 6 days have Tremors On/Off). Triage Date/Time: 24-Feb-2022 14:17 SHRUTI: 3V Vital Signs: Temperature: 97.5F ( 36.4C) taken forehead Blood Pressure: 144/92 Mean: Heart Rate: 98 Respiratory Rate: 16 Pulse Oximetry: 97% on room air, no respiratory support. Height: 5 feet 2.00 inches. 157.4 CM Weight: 123.4 pounds. Calculated 56.0 kg. (stated) Calculated BMI (kg/m2): 22.603 Calculated BSA (m2) 1.56 Jodi Coma Scale: Best Eye Response: (E4) spontaneous Best Motor Response: (M6) obeys commands Best Verbal Response: (V5) oriented Jodi Score: 15 Allergies: yes Mask applied: yes Patient has homicidal thoughts: no Last Known Well: known Time Last Known Well Date/Time: 24-Feb-2022 14:20 Risk Screens Suicide Risk Screen In the Past Month: Have you wished you were or wished you could go to sleep and not wake up no In the Past Month: Have you had any actual thoughts of killing yourself no In Your Lifetime: Have you ever done anything, started to do anything, or prepared to do anything to end your life no Interventions: Amaya Fall Interventions: LOW INTERVENTIONS: *patient oriented to surroundings and call system, * patient/family falls education completed and documented, *patients fall status communicated during bedside handoff, *whiteboard updated, *mode of toileting discussed with patient, *bed in low position with brakes locked, *call light in reach, * non-skid footwear TRAVEL HISTORY Travel History Coronavirus Screening: no exposure or symptoms Travel Exposure History: NO travel to International locations in the past 30 days PAIN Pain Scale Used: AMEYA Past Medical History: Past Medical History Reviewedyes POTS: Past Medical History, Active Electronic Signatures: João Santos (RN) (Signed 24-Feb-2022 14:20) Entered: Risk Screens, Pain, Travel History, Chart Review, Scores, Past Medical History Authored: Quick Triage, Risk Screens, Pain, Travel History, Chart Review, Scores, Past Medical History Last Updated: 24-Feb-2022 14:20 by João Santos (CONCHA) Normal [facility] URINALYSISon 02-24-2022 Appearance (U) CLEAR Normal CLEAR [facility] Comment on above: Performed By: #### U A #### [facility] [address] [place] [address] Bilirubin Ql (U) Negative Normal NEGATIVE [facility] Comment on above: Performed By: #### U A #### [facility] [address] [place] [address] Color (U) STRAW Normal STRAW,YELLOW [facility] Comment on above: Performed By: #### U A #### [facility] [address] [place] [address] Glucose Ql (U) Negative Normal NEGATIVE [facility] Comment on above: Performed By: #### U A #### [facility] [address] [place] [address] Hemoglobin Ql (U) Negative Normal NEGATIVE [facility] Comment on above: Performed By: #### U A #### [facility] [address] [place] [address] Ketones Ql (U) Negative Normal NEGATIVE [facility] Comment on above: Performed By: #### U A #### [facility] [address] [place] [address] Leukocyte esterase Test strip Ql (U) Negative Normal NEGATIVE [facility] Comment on above: Performed By: #### U A #### [facility] [address] [place] [address] Nitrite Ql (U) Negative Normal NEGATIVE [facility] Comment on above: Performed By: #### U A #### [facility] [address] [place] [address] pH (U) 7.0 [pH] Normal 5.0 - 8.0 [facility] Comment on above: Performed By: #### U A #### [facility] [address] [place] [address] Protein Ql (U) Negative Normal NEGATIVE [facility] Comment on above: Performed By: #### U A #### [facility] [address] [place] [address] Specific gravity (U) [Rel density] 1.005 Normal 1.005 - 1.035 [facility] Comment on above: Performed By: #### U A #### [facility] [address] [place] [address] Urobilinogen (U) [Mass/Vol] mg/dL Normal 0.0 - 1.9 [facility] Comment on above: Performed By: #### U A #### [facility] [address] [place] [address] Amphetamine Screen Ql (U)Ord ered By: Bogdan Barnes on 02-06-2022 Amphetamines Ql (U) Negative Negative [facility] Barbiturates [Presence] in U rineOrdered By: Bogdan Barnes on 02-06-2022 Barbiturates Ql (U) Negative Negative [facility] Basophils Auto (Bld) [#/Vol] Ordered By: Bogdan Barnes on 02-06-2022 Basophils (Bld) [#/Vol] 0.0 10*3/uL 0.0-0.2 [facility] Basophils/100 WBC Auto (Bld) Ordered By: Bogdan Barnes on 02-06-2022 Basophils/100 WBC (Bld) 0.2 % . F [facility] Benzodiazepines [Presence] i n UrineOrdered By: Bogdan Barnes on 02-06-2022 Benzodiazepines Ql (U) Negative Negative [facility] Bilirubin Test strip Ql (U)O rdered By: Bogdan Barnes on 02-06-2022 Bilirubin Ql (U) Negative Negative [facility] Body fluid albumin measureme nt (mass/volume)Ordered By: Bogdan Barnes on 02-06-2022 Albumin (Body fld) [Mass/Vol] 3.7 g/dL 3.2-5.5 [facility] Cannabinoids [Presence] in U rine by Screen methodOrdered By: Bogdan Barnes on 02-06-2022 Cannabinoids Screen Ql (U) Positive Negative [facility] Comment on above: These are unconfirme d results and should not be used for legal purposes. Drug Cut-Off Concentration: AMPH 1000 ng/mL CURT 200 ng/mL MYCHAL 200 ng/mL COCM 300 ng/mL OP 300 ng/mL PCP 25 ng/mL THC 20 ng/mL Color Auto (U)Ordered By: Sadia Barnes on 02-06-2022 Color (U) Yellow Yellow [facility] Creatinine and Glomerular fi ltration rate.predicted panel (S/P/Bld)Ordered By: Bogdan Barnes on 02-06-2022 Creatinine [Mass/Vol] 0.79 mg/dL 0.44-1.[address] [facility] Eosinophils Auto (Bld) [#/Vo l]Ordered By: Bogdan Barnes on 02-06-2022 Eosinophils (Bld) [#/Vol] 0.0 10*3/uL 0.0-0.45 [facility] Eosinophils/100 WBC Auto (Bl d)Ordered By: Bogdan Barnes on 02-06-2022 Eosinophils/100 WBC (Bld) 0.3 % . [facility] Erythrocyte distribution wid th Auto (RBC) [Ratio]Ordered By: Bogdan Barnes on 02-06-2022 Erythrocyte distribution width (RBC) [Ratio] 13.5 % 11.9-15.3 [facility] Estimated glomerular filtrat ion rate (GFR) non- AmericanOrdered By: Bogdan Barnes on 02-06-2022 GFR/1.73 sq M.predicted among non-blacks MDRD (S/P/Bld) [Vol rate/Area] > 60 mL/Min [facility] Globulin Calc (S) [Mass/Vol] Ordered By: Bogdan Barnes on 02-06-2022 Globulin (S) [Mass/Vol] 3.1 g/dL F [facility] HCG ( test) IA.rapi d Ql (U)Ordered By: Bogdan Barnes on 02-06-2022 HCG ( test) Ql (U) Negative [facility] Hematocrit Auto (Bld) [Volum e fraction]Ordered By: Bogdan Barnes on 02-06-2022 Hematocrit (Bld) [Volume fraction] 43.9 % 34.0-46.4 [facility] Hemoglobin [Mass/volume] in BloodOrdered By: Bogdan Barnes on 02-06-2022 Hemoglobin (Bld) [Mass/Vol] 14.4 g/dL 11.8-15.4 [facility] Ketones Auto test strip (U) [Mass/Vol]Ordered By: Bogdan Barnes on 02-06-2022 Ketones (U) [Mass/Vol] Negative Negative Fi [facility] Laboratory - Drug toxicology Ordered By: Bogdan Barnes on 02-06-2022 Opiates Ql (U) Negative Negative [facility] Laboratory - Hematology and Cell countsOrdered By: Bogdan Barnes on 02-06-2022 Nucleated RBC/100 WBC (Bld) [Ratio] 0.1 % 0-0.5 [facility] Leukocytes [#/volume] in Blo od by Automated countOrdered By: Bogdan Barnes on 02-06-2022 WBC (Bld) [#/Vol] 7.5 10*3/uL 4.5-11.0 [facility] Lymphocytes Auto (Bld) [#/Vo l]Ordered By: Bogdan Barnes on 02-06-2022 Lymphocytes (Bld) [#/Vol] 1.1 10*3/uL 1.00-4.8 [facility] Lymphocytes/100 WBC Auto (Bl d)Ordered By: Bogdan Barnes on 02-06-2022 Lymphocytes/100 WBC (Bld) 14.2 % . [facility] MCH Auto (RBC) [Entitic mass ]Ordered By: Bogdan Barnes on 02-06-2022 MCH (RBC) [Entitic mass] 31.2 pg 24.7-34.3 [facility] MCHC Auto (RBC) [Mass/Vol]Or dered By: Bogdan Barnes on 02-06-2022 MCHC (RBC) [Mass/Vol] 32.9 g/dL 32.0-35.[address] [facility] MCV Auto (RBC) [Entitic vol] Ordered By: Bogdan Barnes on 02-06-2022 MCV (RBC) [Entitic vol] 94.9 fL 80-[address] [facility] Monocytes Auto (Bld) [#/Vol] Ordered By: Bogdan Barnes on 02-06-2022 Monocytes (Bld) [#/Vol] 0.5 10*3/uL 0.0-0.8 [facility] Monocytes/100 WBC Auto (Bld) Ordered By: Bogdan Barnes on 02-06-2022 Monocytes/100 WBC (Bld) 6.6 % . F [facility] Neutrophils Auto (Bld) [#/Vo l]Ordered By: Bogdan Barnes on 02-06-2022 Neutrophils (Bld) [#/Vol] 5.9 10*3/uL 1.8-7.7 [facility] Neutrophils/100 WBC Auto (Bl d)Ordered By: Bogdan Barnes on 02-06-2022 Neutrophils/100 WBC (Bld) 78.7 % . [facility] Nitrite Test strip Ql (U)Ord ered By: Bogdan Barnes on 02-06-2022 Nitrite Ql (U) Negative Negative [facility] No Panel InformationOrdered By: Bogdan Barnes on 02-06-2022 Estimated GFR () > 60 mL/Min [facility] Comment on above: GFR estimated refere nce range: According to KDOQI guidelines, <60 ml/min/1.73m2 is sufficient to diagnose a patient with chronic kidney disease. Pharmacy Creatinine Clearance (Chem 92.00 [facility] Phencyclidine Screen Ql (U)O rdered By: Bogdan Barnes on 02-06-2022 Phencyclidine Ql (U) Negative Negative [facility] Platelet mean volume Auto (B ld) [Entitic vol]Ordered By: Bogdan Barnes on 02-06-2022 Platelet mean volume (Bld) [Entitic vol] 9.0 fL 6.3-10.7 [facility] Platelets Auto (Bld) [#/Vol] Ordered By: Bogdan Barnes on 02-06-2022 Platelets (Bld) [#/Vol] 258 10*3/uL 150-450 [facility] Protein Auto test strip (U) [Mass/Vol]Ordered By: Bogdan Barnes on 02-06-2022 Protein (U) [Mass/Vol] Negative Negative [facility] Protein [Mass/volume] in Ser um or PlasmaOrdered By: Bogdan Barnes on 02-06-2022 Protein [Mass/Vol] 6.8 g/dL 6.1-7.9 [facility] RBC Auto (Bld) [#/Vol]Ordere d By: Bogdan Barnes on 02-06-2022 RBC (Bld) [#/Vol] 4.63 10*6/uL 3.60-5.00 [facility] Serum or plasma alanine nielsen otransferase measurement without P-5'-P (enzymatic activiOrdered By: Bogdan Barnes on 02-06-2022 ALT No additional P-5'-P [Catalytic activity/Vol] 31 U/L 10-60 [facility] Serum or plasma albumin/glob ulin mass ratioOrdered By: Bogdan Barnes on 02-06-2022 Albumin/Globulin [Mass ratio] 1.2 {ratio} [facility] Serum or plasma alkaline alvina sphatase measurement (enzymatic activity/volume)Ordered By: Bogdan Barnes on 02-06-2022 ALP [Catalytic activity/Vol] 49 U/L 32-92 [facility] Serum or plasma anion gap de terminationOrdered By: Bogdan Barnes on 02-06-2022 Anion gap [Moles/Vol] 13.8 mmol/L 6.0-15.0 [facility] Serum or plasma aspartate am inotransferase measurement (enzymatic activity/volume)Ordered By: Bogdan Barnes on 02-06-2022 AST [Catalytic activity/Vol] 24 U/L 10-42 [facility] Serum or plasma calcium cassandra urement (mass/volume)Ordered By: Bogdan Barnes on 02-06-2022 Calcium [Mass/Vol] 9.0 mg/dL 8.2-10.2 [facility] Serum or plasma chloride darian surement (moles/volume)Ordered By: Bogdan Barnes on 02-06-2022 Chloride [Moles/Vol] 103 mmol/L 95-114 [facility] Serum or plasma ethanol cassandra urement (mass/volume)Ordered By: Bogdan Barnes on 02-06-2022 Ethanol [Mass/Vol] mg/dL [facility] Ethanol [Mass/Vol] TNP [facility] Comment on above: Test not performed Serum or plasma glucose cassandra urement (mass/volume)Ordered By: Bogdan Barnes on 02-06-2022 Glucose [Mass/Vol] 101 mg/dL 70-100 [facility] Comment on above: ADA recommended refe rence rangeRandom Glucose Reference Range is dependent on time and content of last meal. Glucose of more than 200 mg/dL in a nonstressed, ambulatory subject supports the diagnosis of Diabetes Mellitus. Serum or plasma potassium me asurement (moles/volume)Ordered By: Bogdan Barnes on 02-06-2022 Potassium [Moles/Vol] 3.7 mmol/L 3.5-5.[address] [facility] Serum or plasma sodium measu rement (moles/volume)Ordered By: Bogdan Barnes on 09-28-2022 Sodium [Moles/Vol] 139 mmol/L 136-146 [facility] Serum or plasma total biliru bin measurement (mass/volume)Ordered By: Bogdan Barnes on 02-06-2022 Bilirubin [Mass/Vol] 0.5 mg/dL 0.3-1.2 [facility] Serum or plasma total carbon dioxide measurement (moles/volume)Ordered By: Bogdan Barnes on 02-06-2022 CO2 [Moles/Vol] 25.9 mmol/L 22.0-30.0 [facility] Serum or plasma urea nitroge n measurement (mass/volume)Ordered By: Bogdan Barnes on 02-06-2022 Urea nitrogen [Mass/Vol] 9 mg/dL 02-01 [facility] Specific gravity Auto test s trip (U) [Rel density]Ordered By: Bogdan Barnes on 02-06-2022 Specific gravity (U) [Rel density] 1.017 1.001-1.030 [facility] Urine clarity by refractomet ry automatedOrdered By: Bogdan Barnes on 02-06-2022 Clarity Refractometry automated (U) Clear Clear [facility] Urine cocaine detectionOrder ed By: Bogdan Barnes on 02-06-2022 Cocaine Ql (U) Negative Negative [facility] Urine glucose measurement by automated test strip (mass/volume)Ordered By: Bogdan Barnes on 02-06-2022 Glucose Auto test strip (U) [Mass/Vol] Normal mg/dL Normal [facility] Urine hemoglobin detection b y automated test stripOrdered By: Bogdan Barnes on 02-06-2022 Hemoglobin Auto test strip Ql (U) Negative Negative [facility] Urine leukocyte esterase det ection by automated test stripOrdered By: Bogdan Barnes on 02-06-2022 Leukocyte esterase Auto test strip Ql (U) Negative Negative [facility] Urobilinogen Auto test strip (U) [Mass/Vol]Ordered By: Bogdan Barnes on 02-06-2022 Urobilinogen (U) [Mass/Vol] Normal mg/dL Normal [facility] pH Auto test strip (U)Ordere d By: Bogdan Barnes on 02-06-2022 pH (U) 6.5 [pH] 5.0-9.0 [facility] CBC AUTO DIFFon 09-26-2022 BASO # 0.0 103/ul Normal 0.0-0.1 [facility] Comment on above: Performed By: #### E RUR #### [facility] [address] [place] [address] Dr. Janee Rodriguez Basophils/100 WBC (Bld) 0.2 % Normal 0.2-2.0 [facility] Comment on above: Performed By: #### E RUR #### [facility] [address] [place] [address] Dr. Janee Rodriguez EO # 0.0 103/ul Normal 0.0-0.7 [facility] Comment on above: Performed By: #### E RUR #### [facility] [address] [place] [address] Dr. Janee Rodriguez Eosinophils/100 WBC (Bld) 0.0 % Critically low 0.9-7.0 [facility] Comment on above: Performed By: #### E RUR #### [facility] [address] [place] [address] Dr. Janee Rodriguez Erythrocyte distribution width (RBC) [Ratio] 13.4 % Normal 11.0-15.0 [facility] Comment on above: Performed By: #### E RUR #### [facility] [address] [place] [address] Dr. Janee Rodriguez Hematocrit (Bld) [Volume fraction] 42.7 % Normal 36.0-48.0 [facility] Comment on above: Performed By: #### E RUR #### [facility] [address] [place] [address] Dr. Janee Rodriguez Hemoglobin (Bld) [Mass/Vol] 14.0 g/dL Normal 12.0-16.0 [facility] Comment on above: Performed By: #### E RUR #### [facility] [address] [place] [address] Dr. Janee Rodriguez IG # 0.10 10e3/ul Critically high 0.00-0.03 [facility] Comment on above: Performed By: #### E RUR #### [facility] [address] [place] [address] Dr. Janee Rodriguez IG % 0.5 % Normal 0.0-0.5 [facility] Comment on above: Performed By: #### E RUR #### [facility] [address] [place] [address] Dr. Janee Rodriguez LYMPH # 0.6 103/ul Critically low 1.2-3.8 [facility] Comment on above: Performed By: #### E RUR #### [facility] [address] [place] [address] Dr. Janee Rodriguez Lymphocytes/100 WBC (Bld) 3.3 % Critically low 20.5-60.0 [facility] Comment on above: Performed By: #### E RUR #### [facility] [address] [place] [address] Dr. Janee Rodriguez MANUAL DIFF REQ NO Normal [facility] Comment on above: Performed By: #### E RUR #### [facility] [address] [place] [address] Dr. Janee Rodriguez MCH (RBC) [Entitic mass] 31.3 pg Normal 26.7-34.0 [facility] Comment on above: Performed By: #### E RUR #### [facility] [address] [place] [address] Dr. Janee Rodriguez MCHC (RBC) [Mass/Vol] 32.8 g/dL Normal 29.9-35.2 [facility] Comment on above: Performed By: #### E RUR #### [facility] [address] [place] [address] Dr. Janee Rodriguez MCV (RBC) [Entitic vol] 95.5 fL Normal 81.0-99.0 [facility] Comment on above: Performed By: #### E RUR #### [facility] [address] [place] [address] Dr. Janee Rodriguez MONO # 0.2 103/ul Critically low 0.3-0.8 [facility] Comment on above: Performed By: #### E RUR #### [facility] [address] [place] [address] Dr. Janee Rodriguez Monocytes/100 WBC (Bld) 1.2 % Critically low 1.7-12.0 [facility] Comment on above: Performed By: #### E RUR #### [facility] [address] [place] [address] Dr. Janee Rodriguez NEUT # 18.4 103/ul Critically high 1.4-6.5 [facility] Comment on above: Performed By: #### E RUR #### [facility] [address] [place] [address] Dr. Janee Rodriguez Neutrophils/100 WBC (Bld) 94.8 % Critically high 43.0-75.0 [facility] Comment on above: Performed By: #### E RUR #### [facility] [address] [place] [address] Dr. Janee Rodriguez Platelet mean volume (Bld) [Entitic vol] 11.1 fL Normal 9.5-13.5 [facility] Comment on above: Performed By: #### E RUR #### [facility] [address] [place] [address] Dr. Janee Rodriguez PLT 211 103/ul Normal 150-450 [facility] Comment on above: Performed By: #### E RUR #### [facility] [address] [place] [address] Dr. Janee Rodriguez RBC 4.47 106/ul Normal 4.20-5.40 [facility] Comment on above: Performed By: #### E RUR #### [facility] [address] [place] [address] Dr. Janee Rodriguez WBC 19.4 103/ul Critically high 4.0-11.0 [facility] Comment on above: Performed By: #### E RUR #### [facility] [address] [place] [address] Dr. Janee Rodriguez MAGNESIUMon 02-04-2022 Magnesium [Mass/Vol] 2.3 mg/dL Normal 1.8-2.4 [facility] Comment on above: Performed By: #### M Marco, BMP #### [facility] [address] [place] [address] Dr. Janee Rodriguez PROF CHEM 8 (BAS METB)on Anion gap [Moles/Vol] 13.4 mmol/L Normal [facility] Comment on above: Performed By: #### M G, BMP #### [facility] [address] [place] [address] Dr. Janee Rodriguez Calcium [Mass/Vol] 9.3 mg/dL Normal 8.5-10.1 [facility] Comment on above: Performed By: #### M G, BMP #### [facility] [address] [place] [address] Dr. Janee Rodriguez Chloride [Moles/Vol] 106 mmol/L Normal 98-107 [facility] Comment on above: Performed By: #### M G, BMP #### [facility] [address] [place] [address] Dr. Janee Rodriguez CO2 [Moles/Vol] 24.1 mmol/L Normal 21.0-32.0 [facility] Comment on above: Performed By: #### Margarita G, BMP #### [facility] [address] [place] [address] Dr. Janee Rodriguez Creatinine [Mass/Vol] 0.85 mg/dL Normal 0.55-1.02 [facility] Comment on above: Performed By: #### Margarita G, BMP #### [facility] [address] [place] [address] Dr. Janee Rodriguez EGFR-AF HUNGARIAN >60 Normal >=60 [facility] Comment on above: Performed By: #### M G, BMP #### [facility] [address] [place] [address] Dr. Janee Rodriguez EGFR-NON AF HUNGARIAN >60 Normal >=60 [facility] Comment on above: Performed By: #### M G, BMP #### [facility] [address] [place] [address] Dr. Janee Rodriguez Glucose [Mass/Vol] 189 mg/dL Critically high 74-106 T [facility] Comment on above: Performed By: #### M G, BMP #### [facility] [address] [place] [address] Dr. Janee Rodriguez Potassium [Moles/Vol] 3.5 mmol/L Normal 3.5-5.1 [facility] Comment on above: Performed By: #### M Marco, BMP #### [facility] [address] [place] [address] Dr. Janee Rodriguez Sodium [Moles/Vol] 140 mmol/L Normal 136-145 [facility] Comment on above: Performed By: #### M G, BMP #### [facility] [address] [place] [address] Dr. Janee Rodriguez Urea nitrogen [Mass/Vol] 12.0 mg/dL Normal 7.0-18.0 [facility] Comment on above: Performed By: #### Margarita Lara, BMP #### [facility] [address] [place] [address] Dr. Janee Rodriguez Urea nitrogen/Creatinine [Mass ratio] 14.1 mg/mg Normal [facility] Comment on above: Performed By: #### Margarita Lara, BMP #### [facility] [address] [place] [address] Dr. Janee Rodriguez CBC AUTO DIFFon 02-03-2022 BASO # 0.0 103/ul Normal 0.0-0.1 [facility] Comment on above: Performed By: #### C BC #### [facility] [address] [place] [address] Dr. Janee Rodriguez Basophils/100 WBC (Bld) 0.4 % Normal 0.2-2.0 [facility] Comment on above: Performed By: #### C BC #### [facility] [address] [place] [address] Dr. Janee Rodriguez EO # 0.0 103/ul Normal 0.0-0.7 [facility] Comment on above: Performed By: #### C BC #### [facility] [address] [place] [address] Dr. Janee Rodriguez Eosinophils/100 WBC (Bld) 0.0 % Critically low 0.9-7.0 [facility] Comment on above: Performed By: #### C BC #### [facility] [address] [place] [address] Dr. Janee Rodriguez Erythrocyte distribution width (RBC) [Ratio] 13.3 % Normal 11.0-15.0 [facility] Comment on above: Performed By: #### C BC #### [facility] [address] [place] [address] Dr. Janee Rodriguez Hematocrit (Bld) [Volume fraction] 42.9 % Normal 36.0-48.0 [facility] Comment on above: Performed By: #### C BC #### [facility] [address] [place] [address] Dr. Janee Rodriguez Hemoglobin (Bld) [Mass/Vol] 14.1 g/dL Normal 12.0-16.0 [facility] Comment on above: Performed By: #### C BC #### [facility] [address] [place] [address] Dr. Janee Rodriguez IG # 0.05 10e3/ul Critically high 0.00-0.03 [facility] Comment on above: Performed By: #### C BC #### [facility] [address] [place] [address] Dr. Janee Rodriguez IG % 0.4 % Normal 0.0-0.5 [facility] Comment on above: Performed By: #### C BC #### [facility] [address] [place] [address] Dr. Janee Rodriguez LYMPH # 0.4 103/ul Critically low 1.2-3.8 [facility] Comment on above: Performed By: #### C BC #### [facility] [address] [place] [address] Dr. Janee Rodriguez Lymphocytes/100 WBC (Bld) 3.1 % Critically low 20.5-60.0 [facility] Comment on above: Result Comment: same as 02/02 Performed By: #### C BC #### [facility] [address] [place] [address] Dr. Janee Rodriguez MANUAL DIFF REQ NO Normal [facility] Comment on above: Performed By: #### C BC #### [facility] [address] [address] [address] Janee Rodriguez MCH (RBC) [Entitic mass] 31.5 pg Normal 26.7-34.0 [facility] Comment on above: Performed By: #### C BC #### [facility] [address] [place] [address] Dr. Janee Rodriguez MCHC (RBC) [Mass/Vol] 32.9 g/dL Normal 29.9-35.2 [facility] Comment on above: Performed By: #### C BC #### [facility] [address] [place] [address] Dr. Janee Rodriguez MCV (RBC) [Entitic vol] 95.8 fL Normal 81.0-99.0 [facility] Comment on above: Performed By: #### C BC #### [facility] [address] [place] [address] Dr. Janee Rodriguez MONO # 0.1 103/ul Critically low 0.3-0.8 [facility] Comment on above: Performed By: #### C BC #### [facility] [address] [place] [address] Dr. Janee Rodriguez Monocytes/100 WBC (Bld) 0.6 % Critically low 1.7-12.0 [facility] Comment on above: Performed By: #### C BC #### [facility] [address] [place] [address] Dr. Janee Rodriguez NEUT # 10.7 103/ul Critically high 1.4-6.5 [facility] Comment on above: Performed By: #### C BC #### [facility] [address] [place] [address] Dr. Janee Rodriguez Neutrophils/100 WBC (Bld) 95.5 % Critically high 43.0-75.0 [facility] Comment on above: Performed By: #### C BC #### [facility] [address] [place] [address] Dr. Janee Rodriguez Platelet mean volume (Bld) [Entitic vol] 11.6 fL Normal 9.5-13.5 [facility] Comment on above: Performed By: #### C BC #### [facility] [address] [place] [address] Dr. Janee Rodriguez PLT 222 103/ul Normal 150-450 [facility] Comment on above: Performed By: #### C BC #### [facility] [address] [place] [address] Dr. Janee Rodriguez RBC 4.48 106/ul Normal 4.20-5.40 [facility] Comment on above: Performed By: #### C BC #### [facility] [address] [place] [address] Dr. Janee Rodriguez WBC 11.3 103/ul Critically high 4.0-11.0 [facility] Comment on above: Performed By: #### C BC #### [facility] [address] [place] [address] Dr. Janee Rodriguez ER URINE PROFILEon 2 Bilirubin Ql (U) Negative Normal NEGATIVE [facility] Comment on above: Performed By: #### E RUR #### [facility] [address] [place] [address] Dr. Janee Rodriguez Clarity (U) CLEAR Normal CLEAR [facility] Comment on above: Performed By: #### E RUR #### [facility] [address] [place] [address] Dr. Janee Rodriguez Color (U) LT. YELLOW Normal YELLOW [facility] Comment on above: Performed By: #### E RUR #### [facility] [address] [place] [address] Dr. Janee RODRIGUEZ A micrscopic examination will be performed if indicated. Normal [facility] Comment on above: Performed By: #### E RUR #### [facility] [address] [place] [address] Dr. Janee Rodriguez Glucose Ql (U) Negative Normal NEGATIVE [facility] Comment on above: Performed By: #### E RUR #### [facility] [address] [place] [address] Dr. Janee Rodriguez Hemoglobin Ql (U) Negative Normal NEGATIVE [facility] Comment on above: Performed By: #### E RUR #### [facility] [address] [place] [address] Dr. Janee Rodriguez Ketones Ql (U) Negative Normal NEGATIVE [facility] Comment on above: Performed By: #### E RUR #### [facility] [address] [place] [address] Dr. Janee Rodriguez LEUKOCYTES Negative Normal NEGATIVE [facility] Comment on above: Performed By: #### E RUR #### [facility] [address] [place] [address] Dr. Janee Rodriguez Nitrite Ql (U) Negative Normal NEGATIVE [facility] Comment on above: Performed By: #### E RUR #### [facility] [address] [place] [address] Dr. Janee Rodriguez pH (U) 6.0 [pH] Normal 5-9 [facility] Comment on above: Performed By: #### E RUR #### [facility] [address] [place] [address] Dr. Janee Rodriguez SPEC GRAVITY 1.010 Normal 1.005-<=1.02 5 [facility] Comment on above: Performed By: #### E RUR #### [facility] [address] [place] [address] Dr. Janee Rodriguez UA PROTEIN Negative Normal NEGATIVE/ TRACE [facility] Comment on above: Performed By: #### E RUR #### [facility] [address] [place] [address] Dr. Janee Rodriguez UR MICRO IND NOT INDICATED Normal [facility] Comment on above: Performed By: #### E RUR #### [facility] [address] [place] [address] Dr. Janee Rodriguez Urobilinogen Qn (U) 0.2 {Mumtaz'U}/dL Normal 0.2 - 1. 0 [facility] Comment on above: Performed By: #### E RUR #### [facility] [address] [place] [address] Dr. Janee Rodriguez MAGNESIUMon 02-03-2022 Magnesium [Mass/Vol] 2.5 mg/dL Critically high 1.8-2.4 [facility] Comment on above: Performed By: #### M G, BMP #### [facility] [address] [place] [address] Dr. Janee Rodriguez PROF CHEM 8 (BAS METB)on Anion gap [Moles/Vol] 15.9 mmol/L Normal [facility] Comment on above: Performed By: #### M G, BMP #### [facility] [address] [place] [address] Dr. Janee Rodriguez Calcium [Mass/Vol] 8.9 mg/dL Normal 8.5-10.1 [facility] Comment on above: Performed By: #### M G, BMP #### [facility] [address] [place] [address] Dr. Janee Rodriguez Chloride [Moles/Vol] 107 mmol/L Normal 98-107 [facility] Comment on above: Performed By: #### M G, BMP #### [facility] [address] [place] [address] Dr. Janee Rodriguez CO2 [Moles/Vol] 22.0 mmol/L Normal 21.0-32.0 [facility] Comment on above: Performed By: #### M G, BMP #### [facility] [address] [place] [address] Dr. Janee Rodriguez Creatinine [Mass/Vol] 0.77 mg/dL Normal 0.55-1.02 [facility] Comment on above: Performed By: #### M G, BMP #### [facility] [address] [place] [address] Dr. Janee Rodriguez EGFR-AF HUNGARIAN >60 Normal >=60 [facility] Comment on above: Performed By: #### M G, BMP #### [facility] [address] [place] [address] Dr. Janee Rodriguez EGFR-NON AF HUNGARIAN >60 Normal >=60 [facility] Comment on above: Performed By: #### M G, BMP #### [facility] [address] [place] [address] Dr. Janee Rodriguez Glucose [Mass/Vol] 143 mg/dL Critically high 74-106 [facility] Comment on above: Performed By: #### M G, BMP #### [facility] [address] [place] [address] Dr. Janee Rodriguez Potassium [Moles/Vol] 3.9 mmol/L Normal 3.5-5.1 [facility] Comment on above: Performed By: #### M G, BMP #### [facility] [address] [place] [address] Dr. Janee Rodriguez Sodium [Moles/Vol] 141 mmol/L Normal 136-145 [facility] Comment on above: Performed By: #### M G, BMP #### [facility] [address] [place] [address] Dr. Janee Rodriguez Urea nitrogen [Mass/Vol] 11.0 mg/dL Normal 7.0-18.0 [facility] Comment on above: Performed By: #### M G, BMP #### [facility] [address] [place] [address] Dr. Janee Rodriguez Urea nitrogen/Creatinine [Mass ratio] 14.3 mg/mg Normal [facility] Comment on above: Performed By: #### M G, BMP #### [facility] [address] [place] [address] Dr. Janee Rodriguez RESPIRATORY PANEL PLUSon Adenovirus Not detected Normal NOT DETECTED [facility] Comment on above: Performed By: #### E RUR #### [facility] [address] [place] [address] Dr. Janee Zimmerman Parapertusis Not detected Normal NOT DETECTED [facility] Comment on above: Performed By: #### E RUR #### [facility] [address] [place] [address] Dr. Janee Zimmerman Pertussis Not detected Normal NOT DETECTED [facility] Comment on above: Performed By: #### E RUR #### [facility] [address] [place] [address] Dr. Janee Rodriguez Chlamydia Pneumoniae Not detected Normal NOT DETECTED [facility] Comment on above: Performed By: #### E RUR #### [facility] [address] [place] [address] Dr. Janee Rodriguez Coronavirus 229E Not detected Normal NOT DETECTED [facility] Comment on above: Performed By: #### E RUR #### [facility] [address] [place] [address] Dr. Janee Rodriguez Coronavirus HKU1 Not detected Normal NOT DETECTED [facility] Comment on above: Performed By: #### E RUR #### [facility] [address] [place] [address] Dr. Janee Rodriguez Coronavirus NL63 Not detected Normal NOT DETECTED [facility] Comment on above: Performed By: #### E RUR #### [facility] [address] [place] [address] Dr. Janee Rodriguez Coronavirus OC43 Not detected Normal NOT DETECTED [facility] Comment on above: Performed By: #### E RUR #### [facility] [address] [place] [address] Dr. Janee Rodriguez Influenza A H1 2009 Not detected Normal NOT DETECTED [facility] Comment on above: Performed By: #### E RUR #### [facility] [address] [place] [address] Dr. Janee Rodriguez Influenza A H3 Detected Abnormal NOT DETECTED [facility] Comment on above: Performed By: #### E RUR #### [facility] [address] [place] [address] Dr. Janee Rodriguez Influenza B Not detected Normal NOT DETECTED [facility] Comment on above: Performed By: #### E RUR #### [facility] [address] [place] [address] Dr. Janee Rodriguez Metapneumovirus Not detected Normal NOT DETECTED [facility] Comment on above: Performed By: #### E RUR #### [facility] [address] [place] [address] Dr. Janee Rodriguez Mycoplas. Pneumoniae Not detected Normal NOT DETECTED [facility] Comment on above: Performed By: #### E RUR #### [facility] [address] [place] [address] Dr. Janee Rodriguez Parainfluenza 1 Not detected Normal NOT DETECTED [facility] Comment on above: Performed By: #### E RUR #### [facility] [address] [place] [address] Dr. Janee Rodriguez Parainfluenza 2 Not detected Normal NOT DETECTED [facility] Comment on above: Performed By: #### E RUR #### [facility] [address] [place] [address] Dr. Janee Rodriugez Parainfluenza 3 Not detected Normal NOT DETECTED [facility] Comment on above: Performed By: #### E RUR #### [facility] [address] [place] [address] Dr. Janee Rodriguez Parainfluenza 4 Not detected Normal NOT DETECTED [facility] Comment on above: Performed By: #### E RUR #### [facility] [address] [place] [address] Dr. Janee Rodriguez Rhino/Enterovirus Not detected Normal NOT DETECTED [facility] Comment on above: Performed By: #### E RUR #### [facility] [address] [place] [address] Dr. Janee Rodriguez RP2 Header 1 RESPIRATORY PANEL: VIRUSES Normal [facility] Comment on above: Performed By: #### E RUR #### [facility] [address] [place] [address] Dr. Janee Rodriguez RP2 Header 2 RESPIRATORY PANEL: BACTERIA Normal [facility] Comment on above: Performed By: #### E RUR #### [facility] [address] [place] [address] Dr. Janee Rodriguez RSV Not detected Normal NOT DETECTED [facility] Comment on above: Performed By: #### E RUR #### [facility] [address] [place] [address] Dr. Janee Rodriguez SARS-CoV-2 (COVID-19) RNA HEENA+probe Ql (Unsp spec) Not detected Normal NOT DETECTED [facility] Comment on above: Performed By: #### E RUR #### [facility] [address] [place] [address] Dr. Janee Rodriguez BLOOD GASES BTYon 02-02-2022 02 MODE VAPOTHERM Normal [facility] Comment on above: Performed By: #### A BG #### [facility] [address] [place] [address] Dr. Janee Rodriguez ALLENS TEST Positive [facility] Comment on above: Performed By: #### A BG #### [facility] [address] [place] [address] Dr. Janee Rodriguez Base excess Calc (Bld) [Moles/Vol] -5.0000 mmol/L Critically low -2.0-2.0 [facility] Comment on above: Performed By: #### A BG #### [facility] [address] [place] [address] Dr. Janee Rodriguez BIPAP PRESSURE St. [facility] Comment on above: Performed By: #### A BG #### [facility] [address] [place] [address] Dr. Janee Rodriguez CP[address] [facility] Comment on above: Performed By: #### A BG #### [facility] [address] [place] [address] Dr. Janee Rodriguez FIO2 40.00 % [facility] Comment on above: Performed By: #### A BG #### [facility] [address] [place] [address] Dr. Janee Rodriguez HCO3 (Bld) [Moles/Vol] 21.1 mmol/L Critically low 22.0-26. 0 [facility] Comment on above: Performed By: #### A BG #### [facility] [address] [place] [address] Dr. Janee Rodriguez LPM 30 Normal [facility] Comment on above: Performed By: #### A BG #### [facility] [address] [place] [address] Dr. Janee Rodriguez MINUTE VOLUME Normal [facility] Comment on above: Performed By: #### A BG #### [facility] [address] [place] [address] Dr. Janee Rodriguez Oxygen (Bld) [Partial pressure] 77.7 mm[Hg] Critically low 80.0-100.0 [facility] Comment on above: Performed By: #### A BG #### [facility] [address] [address] [address] Janee Rodriguez Oxygen saturation in Blood 96.3 % Normal 95.0-100.0 [facility] Comment on above: Performed By: #### A BG #### [facility] [address] [place] [address] Dr. Janee Rodriguez PCO2 30.1 mmHg Critically low 35.0-45.0 [facility] Comment on above: Performed By: #### A BG #### [facility] [address] [place] [address] Dr. Janee Rodriguez [facility] Comment on above: Performed By: #### A BG #### [facility] [address] [place] [address] Dr. Janee Rodriguez pH (Bld) 7.419 [pH] Normal 7.350-7.450 [facility] Comment on above: Performed By: #### A BG #### [facility] [address] [place] [address] Dr. Janee Rodriguez [facility] Comment on above: Performed By: #### A BG #### [facility] [address] [place] [address] Dr. Janee Rodriguez [facility] Comment on above: Performed By: #### A BG #### [facility] [address] [place] [address] Dr. Janee Rodriguez PUNCTURE SITE LR [facility] Comment on above: Performed By: #### A BG #### [facility] [address] [place] [address] Dr. [address] Rodriguez [address] [facility] Comment on above: Performed By: #### A BG #### [facility] [address] [place] [address] Dr. Janee Rodriguez VENT MODE [facility] Comment on above: Performed By: #### A BG #### [facility] [address] [place] [address] Dr. Janee Rodriguez [facility] Comment on above: Performed By: #### A BG #### [facility] [address] [place] [address] Dr. Janee Rodriguez CBC W MANUAL DIFFon 02-03-20 22 ATYPICAL LYMPH # Normal [facility] Comment on above: Performed By: #### E RUR #### [facility] [address] [place] [address] Dr. Janee Rodriguez ATYPICAL LYMPH % Normal [facility] Comment on above: Performed By: #### E RUR #### [facility] [address] [place] [address] Dr. Janee Rodriguez BAND # 0.3 103/ul Normal 0.0-0.3 [facility] Comment on above: Performed By: #### E RUR #### [facility] [address] [place] [address] Dr. Janee Rodriguez BAND % 3 % Normal 0-5 [facility] Comment on above: Performed By: #### E RUR #### [facility] [address] [place] [address] Dr. Janee Rodriguez BASOM # 0.00 103/ul Normal 0.00-0.10 [facility] Comment on above: Performed By: #### E RUR #### [facility] [address] [place] [address] Dr. Janee Rodriguez BASOM % 0.0 % Critically low 0.2-2.0 [facility] Comment on above: Performed By: #### E RUR #### [facility] [address] [place] [address] Dr. Janee Rodriguez BLAST # Normal [facility] Comment on above: Performed By: #### E RUR #### [facility] [address] [place] [address] Dr. Janee Rodriguez BLAST % Normal [facility] Comment on above: Performed By: #### E RUR #### [facility] [address] [place] [address] Dr. Janee Rodriguez CORRECTED WBC Normal 4.0-11.0 [facility] Comment on above: Performed By: #### E RUR #### [facility] [address] [place] [address] Dr. Janee Rodriguez EOS # 0.00 103/ul Normal 0.00-0.70 [facility] Comment on above: Performed By: #### E RUR #### [facility] [address] [place] [address] Dr. Janee Rodriguez EOS% 0.0 % Critically low 0.9-7.0 [facility] Comment on above: Performed By: #### E RUR #### [facility] [address] [place] [address] Dr. Janee Rodriguez HCT 41.4 % Normal 36.0-48.0 [facility] Comment on above: Performed By: #### E RUR #### [facility] [address] [place] [address] Dr. Janee Rodriguez HGB 13.8 g/dl Normal 12.0-16.0 [facility] Comment on above: Performed By: #### E RUR #### [facility] [address] [place] [address] Dr. Janee Rodriguez LYMPHM # 0.34 103/ul Critically low 1.20-3.80 [facility] Comment on above: Performed By: #### E RUR #### [facility] [address] [place] [address] Dr. Janee Rodriguez LYMPHM% 3.0 % Critically low 20.5-60.0 [facility] Comment on above: Performed By: #### E RUR #### [facility] [address] [place] [address] Dr. Janee Rodriguez MCH 31.3 pg Normal 26.7-34.0 [facility] Comment on above: Performed By: #### E RUR #### [facility] [address] [place] [address] Dr. Janee Rodriguez MCHC 33.3 g/dl Normal 29.9-35.2 [facility] Comment on above: Performed By: #### E RUR #### [facility] [address] [place] [address] Dr. Janee Rodriguez MCV 93.9 fL Normal 81.0-99.0 [facility] Comment on above: Performed By: #### E RUR #### [facility] [address] [place] [address] Dr. Janee Rodriguez METAMYELOCYTE # Normal [facility] Comment on above: Performed By: #### E RUR #### [facility] [address] [place] [address] Dr. Janee Rodriguez METAMYELOCYTE % Normal [facility] Comment on above: Performed By: #### E RUR #### [facility] [address] [place] [address] Dr. Janee Rodriguez MONOM# 0.67 103/ul Normal 0.30-0.80 [facility] Comment on above: Performed By: #### E RUR #### [facility] [address] [place] [address] Dr. Janee Rodriguez MONOM% 6.0 % Normal 1.7-12.0 [facility] Comment on above: Performed By: #### E RUR #### [facility] [address] [place] [address] Dr. Janee Rodriguez MPV 10.5 fL Normal 9.5-13.5 [facility] Comment on above: Performed By: #### E RUR #### [facility] [address] [place] [address] Dr. Janee Rodriguez MYELOCYTE # Normal [facility] Comment on above: Performed By: #### E RUR #### [facility] [address] [place] [address] Dr. Janee Rodriguez MYELOCYTE % Normal [facility] Comment on above: Performed By: #### E RUR #### [facility] [address] [place] [address] Dr. Janee Rodriguez NRBC Normal [facility] Comment on above: Performed By: #### E RUR #### [facility] [address] [place] [address] Dr. Janee Rodriguez PLT 210 103/ul Normal 150-450 [facility] Comment on above: Performed By: #### E RUR #### [facility] [address] [address] [address] Janee Rodriguez RBC 4.41 106/ul Normal 4.20-5.40 [facility] Comment on above: Performed By: #### E RUR #### [facility] [address] [address] [address] Janee Rodriguez RDW 13.2 % Normal 11.0-15.0 [facility] Comment on above: Performed By: #### E RUR #### [facility] [address] [address] [address] Janee Rodriguez SEG # 9.86 103/ul Critically high 1.40-6.50 [facility] Comment on above: Performed By: #### E RUR #### [facility] [address] [place] [address] Dr. Janee Rodriguez SEG % 88.0 % Critically high 43.0-75.0 [facility] Comment on above: Performed By: #### E RUR #### [facility] [address] [address] [address] Janee Rodriguez WBC 11.2 103/ul Critically high 4.0-11.0 [facility] Comment on above: Performed By: #### E RUR #### [facility] [address] [place] [address] Dr. Janee Rodriguez CTA CHEST WO W CONon 022 CTA CHEST WO W CON CTA CHEST. INDICATION: Shortness of breath. COMPARISON: None available. TECHNIQUE: CT pulmonary angiogram. Initially, limited axial non-contrast images through chest obtained to establish proper bolus timing. Subsequently, contrast enhanced axial CT images were obtained through the chest. Axial, sagittal and coronal reformatted maximum intensity projection images and / or 3D volume rendered images created. Approximately 100 ml Omnipaque 350 was administered intravenously. 3-D vascular images were also obtained. FINDINGS: PULMONARY ARTERIES: No intraluminal filling defects within the central or segmental pulmonary arteries to suggest pulmonary embolism.. Normal RV:LV ratio (<1). AORTA: The thoracic aorta diameter is normal without aneurysm or dissection. LUNGS: Lungs are clear bilaterally. No pleural effusions.. No pneumothorax. LYMPH NODES: No enlarged mediastinal lymph nodes by CT criteria. HEART: Heart size is normal. No pericardial effusion. UPPER ABDOMEN: Images of the upper abdomen demonstrate no abnormality. MUSCULOSKELETAL: No acute osseous abnormality. IMPRESSION: 1. No pulmonary thromboembolic disease. No aortic aneurysm or dissection. 2. No acute airspace disease. Electronically authenticated by: MALISSA FRIAS Date: 2022-02-02 17:00 Normal [facility] Covid-19 PCR (CVDTBH)on 01-11 SARS-CoV-2 (COVID-19) RNA HEENA+probe Ql (Unsp spec) Not detected Normal NOT DETECTED [facility] Comment on above: Result Comment: When diagnostic testing is negative, the possibility of a false negative should be considered in the context of a patient's recent exposures and the presence of clinical signs and symptoms consistent with SARS-CoV-2. This test is not yet approved or cleared by the [place] FDA. When there are no FDA-approved or cleared tests available, and other criteria are met, FDA can make tests available under an emergency access mechanism called an Emergency Use Authorization (EUA). The EUA for this test is supported by the [place] of Health and Human Service's declaration that circumstances exist to justify the emergency use of in vitro diagnostics for the detection and/or diagnosis of the virus that causes COVID-19. This EUA will remain in effect for the duration of the COVID-19 declaration justifying emergency of IVDs, unless it is terminated or revoked by the FDA (after which the test may no longer be used). Performed By: #### C VDTBH #### [facility] [address] [address] [address] Janee Rodriguez D-DIMERon 02-02-2022 D-DIMER 1.15 mg/L FEU Critically high <=0.59 [facility] Comment on above: Performed By: #### D DIM #### [facility] [address] [place] [address] Dr. Janee Rodriguez D-DIMER COMMENTS SEE BELOW Normal [facility] Comment on above: Result Comment: Incr eases in D-Dimer concentration observed with thromboembolic events can be variable due to localization, size, and age of the thrombus. Therefore, a thromboembolic event cannot be diagnosed with certainty on the basis of the reference range. D-Dimers may also be elevated for a variety of disorders including: advanced age, , coronary disease, cancer, liver disease, infection, inflammation, hematoma, DIC, trauma, post-surgery, diabetes, thrombolytic or anticoagulant therapy, stress, and generalized hospitalization. Performed By: #### D DIM #### [facility] [address] [place] [address] Dr. Janee Rodriguez PREG HCG QUALon 02-02-2022 , QUAL Negative Normal NEGATIVE [facility] Comment on above: Performed By: #### E RUR #### [facility] [address] [place] [address] Dr. Janee Rodriguez PROF CHEM 8 (BAS METB)on Anion gap [Moles/Vol] 13.8 mmol/L Normal [facility] Comment on above: Performed By: #### B MP #### [facility] [address] [place] [address] Dr. Janee Rodriguez Calcium [Mass/Vol] 9.1 mg/dL Normal 8.5-10.1 [facility] Comment on above: Performed By: #### B MP #### [facility] [address] [place] [address] Dr. Janee Rodriguez Chloride [Moles/Vol] 105 mmol/L Normal 98-107 [facility] Comment on above: Performed By: #### B MP #### [facility] [address] [place] [address] Dr. Janee Rodriguez CO2 [Moles/Vol] 23.9 mmol/L Normal 21.0-32.0 [facility] Comment on above: Performed By: #### B MP #### [facility] [address] [place] [address] Dr. Janee Rodriguez Creatinine [Mass/Vol] 0.91 mg/dL Normal 0.55-1.02 [facility] Comment on above: Performed By: #### B MP #### [facility] [address] [place] [address] Dr. Janee Rodriguez EGFR-AF HUNGARIAN >60 Normal >=60 [facility] Comment on above: Performed By: #### B MP #### [facility] [address] [address] [address] Janee Rodriguez EGFR-NON AF HUNGARIAN >60 Normal >=60 [facility] Comment on above: Performed By: #### B MP #### [facility] [address] [address] [address] Janee Rodriguez Glucose [Mass/Vol] 109 mg/dL Critically high 74-106 [facility] Comment on above: Performed By: #### B MP #### [facility] [address] [address] [address] Janee Rodriguez Potassium [Moles/Vol] 3.7 mmol/L Normal 3.5-5.1 [facility] Comment on above: Performed By: #### B MP #### [facility] [address] [address] [address] Janee Rodriguez Sodium [Moles/Vol] 139 mmol/L Normal 136-145 [facility] Comment on above: Performed By: #### B MP #### [facility] [address] [address] [address] Janee Rodriguez Urea nitrogen [Mass/Vol] 8.0 mg/dL Normal 7.0-18.0 [facility] Comment on above: Performed By: #### B MP #### [facility] [address] [address] [address] Janee Rodriguez Urea nitrogen/Creatinine [Mass ratio] 8.8 mg/mg Normal [facility] Comment on above: Performed By: #### B MP #### [facility] [address] [address] [address] Janee Rodriguez XR CHEST 1 Von 02-02-2022 XR CHEST 1 V EXAMINATION: XR CHES T 1 V HISTORY: SHORTNESS OF BREATH COMPARISON: 04/25/2015 TECHNIQUE: AP portable erect FINDINGS: LUNGS: No significant pulmonary parenchymal abnormalities. VASCULATURE: No increased pulmonary vasculature. PLEURA: No pneumothorax, effusion, or pleural thickening. CARDIAC: No cardiomegaly or cardiac silhouette abnormality. MEDIASTINUM: No visible mass or adenopathy. BONES: No fracture or visible bone lesion. OTHER: Negative. IMPRESSION: No acute disease. Electronically authenticated by: RODGER BLAKE Date: 2022-02-02 15:45 Normal [facility] ED NOTEon 01-02-2022 ED NOTE HNO ID: [id number] Author: Keyur Sebastian RN Service: ? Author Type: Registered Nurse Type: ED Notes Filed: 01/01/2022 10:02 PM Note Text: Pt called at 2140 with no answer. Normal [facility] Bacteria Ur Culton 2 Bacteria identified Cx Nom (U) [id number] Abnormal [facility] Comment on above: Order Comment: Speci men Type: URINE SPECIMEN Ordering Facility: [facility] Address: [address] [place] [address] Result Comment: 10,0 00 -<50,000 CFU/ml Mixed microbiota Insignificant colony count. No further workup. Performed By: #### 6 30-4 #### [facility] CLIA [id number] [address] [place] [address] [place] [address] [place] CBC panel Auto (Bld)on 01-01 Erythrocyte distribution width (RBC) [Ratio] 13.7 % Normal 11.5-15.0 [facility] Comment on above: Order Comment: Speci men Type: BLOOD SPECIMENOrdering Facility: [facility] Address: [address] [place] [address] Performed By: #### 5 8410-2 ####[facility] [id number] [place] [address] [place] Hematocrit (Bld) [Volume fraction] 40.2 % Normal 36.0-46.0 [facility] Comment on above: Order Comment: Speci men Type: BLOOD SPECIMENOrdering Facility: [facility] Address: [address] [place] [address] Performed By: #### 5 8410-2 ####[facility]ORYCLIA [id number] [place] [address] [place] Hemoglobin (Bld) [Mass/Vol] 13.1 g/dL Normal 11.5-15.5 [facility] Comment on above: Order Comment: Speci men Type: BLOOD SPECIMENOrdering Facility: [facility] Address: [address] [place] [address] Performed By: #### 5 8410-2 ####[facility] [id number] [address] [place] MCH (RBC) [Entitic mass] 31.3 pg Normal 26.0-34.0 [facility] Comment on above: Order Comment: Speci men Type: BLOOD SPECIMENOrdering Facility: [facility] Address: [address] [place] [address] Performed By: #### 5 8410-2 ####[facility] [id number] [address] [place] MCHC (RBC) [Mass/Vol] 32.6 g/dL Normal 30.5-36.0 [facility] Comment on above: Order Comment: Speci men Type: BLOOD SPECIMENOrdering Facility: [facility] Address: [address] [place] [address] Performed By: #### 5 8410-2 ####[facility] [id number] [address] [place] MCV (RBC) [Entitic vol] 96.2 fL Normal 80.0-100.0 [facility] Comment on above: Order Comment: Speci men Type: BLOOD SPECIMENOrdering Facility: [facility] Address: [address] [place] [address] Performed By: #### 5 8410-2 ####[facility]ORYCLIA [id number] [address] [place] Nucleated RBC (Bld) [#/Vol] 10*3/uL Normal <0.01 [facility] Comment on above: Order Comment: Speci men Type: BLOOD SPECIMENOrdering Facility: [facility] Address: [address] [place] [address] Performed By: #### 5 8410-2 ####[facility]ORYCLIA [id number] [place] [address] [place] Platelet mean volume (Bld) [Entitic vol] 10.5 fL Normal 9.0-12.7 [facility] Comment on above: Order Comment: Speci men Type: BLOOD SPECIMENOrdering Facility: [facility] Address: [address] [place] [address] Performed By: #### 5 8410-2 ####[facility]ORYCLIA [id number] [place] [address] [place] Platelets (Bld) [#/Vol] 258 10*3/uL Normal 150-400 [facility] Comment on above: Order Comment: Speci men Type: BLOOD SPECIMENOrdering Facility: [facility] Address: [address] [place] [address] Performed By: #### 5 8410-2 ####[facility]ORYCLIA [id number] [place] [address] [place] RBC (Bld) [#/Vol] 4.18 10*6/uL Normal 3.90-5.20 [facility] Comment on above: Order Comment: Speci men Type: BLOOD SPECIMENOrdering Facility: [facility] Address: [address] [place] [address] Performed By: #### 5 8410-2 ####[facility]ATORYCLIA [id number] [place] [address] [place] WBC (Bld) [#/Vol] 9.91 10*3/uL Normal 3.70-11.00 [facility] Comment on above: Order Comment: Speci men Type: BLOOD SPECIMENOrdering Facility: [facility] Address: [address] [place] [address] Performed By: #### 5 8410-2 ####[facility]ORYCLIA [id number] [place] [address] [place] CK SerPl-cCncon 01-01-2022 CK [Catalytic activity/Vol] 70 U/L Normal 42-196 [facility] Comment on above: Order Comment: Speci men Type: BLOOD SPECIMEN Ordering Facility: [facility] Address: [facility] [place] [address] Performed By: #### 3 040-3, 08223-2, 6, 43-2 #### [facility] CLIA [id number] [address] [place] [address] [place] Comprehensive metabolic 2000 panelon 01-01-2022 Albumin [Mass/Vol] 4.6 g/dL Normal 3.9-4.9 [facility] Comment on above: Order Comment: Speci men Type: BLOOD SPECIMEN Ordering Facility: [facility] Address: [address] [place] [address] Performed By: #### 3 040-3, 39013-6, 2156-10, 43-2 #### [facility] CLIA [id number] [address] [place] [address] [place] ALP [Catalytic activity/Vol] 65 U/L Normal 34-123 [facility] Comment on above: Order Comment: Speci men Type: BLOOD SPECIMEN Ordering Facility: [facility] Address: [address] [place] [address] Performed By: #### 3 040-3, 21705-4, 2156-10, 43-2 #### [facility] CLIA [id number] [address] [place] [address] [place] ALT [Catalytic activity/Vol] 192 U/L High 7-38 [facility] Comment on above: Order Comment: Speci men Type: BLOOD SPECIMEN Ordering Facility: [facility] Address: [address] [place], [place] [id number] Performed By: #### 3 040-3, 40710-7, 2156-10, 43-2 #### [facility] CLIA [id number] [address] [place] [address] [place] Anion gap [Moles/Vol] 10 mmol/L Normal 9-18 [facility] Comment on above: Order Comment: Speci men Type: BLOOD SPECIMEN Ordering Facility: [facility] Address: [address] [place] [id number] Performed By: #### 3 040-3, 35128-6, 6, 43-2 #### [facility] CLIA [id number] [address] [place] [address] [place] AST [Catalytic activity/Vol] 75 U/L High 13-35 [facility] Comment on above: Order Comment: Speci men Type: BLOOD SPECIMEN Ordering Facility: [facility] Address: [address] [place] [address] Performed By: #### 3 040-3, 77003-6, 6, 43-2 #### [facility] CLIA [id number] [address] [place] [address] [place] Bilirubin [Mass/Vol] 0.2 mg/dL Normal 0.2-1.3 [facility] Comment on above: Order Comment: Speci men Type: BLOOD SPECIMEN Ordering Facility: [facility] Address: [address] [place] [address] Performed By: #### 3 040-3, 43764-5, 2156-10, 43-2 #### [facility] CLIA [id number] [address] [place] [address] [place] Calcium [Mass/Vol] 9.1 mg/dL Normal 8.5-10.2 [facility] Comment on above: Order Comment: Speci men Type: BLOOD SPECIMEN Ordering Facility: [facility] Address: [address] [place], [place] [id number] Performed By: #### 3 040-3, 42475-9, 6, 43-2 #### [facility] CLIA [id number] [address] [place] [address] [place] Chloride [Moles/Vol] 107 mmol/L High 97-105 [facility] Comment on above: Order Comment: Speci men Type: BLOOD SPECIMEN Ordering Facility: [facility] Address: [address] [place], [place] [id number] Performed By: #### 3 040-3, 79286-8, 2156-10, 43-2 #### [facility] CLIA [id number] [address] [place] [address] [place] CO2 [Moles/Vol] 23 mmol/L Normal 22-30 [facility] Comment on above: Order Comment: Speci men Type: BLOOD SPECIMEN Ordering Facility: [facility] Address: [address] [place] [address] Performed By: #### 3 040-3, 27596-9, 2156-10, 43-2 #### [facility] CLIA [id number] [address] [place] [address] [place] Creatinine [Mass/Vol] 0.85 mg/dL Normal 0.58-0.96 [facility] Comment on above: Order Comment: Speci men Type: BLOOD SPECIMEN Ordering Facility: [facility] Address: [address] [place] [address] Performed By: #### 3 040-3, 29425-4, 2156-10, 2 #### [facility] IA [id number] [address] [place] [address] [place] ESTIMATED GLOMERULAR FILTRATION RATE 95 mL/min/1.73m??? Normal >=60 [facility] Comment on above: Order Comment: Speci men Type: BLOOD SPECIMEN Ordering Facility: [facility] Address: [address] [place] [address] Result Comment: Albina mated Glomerular Filtration Rate (eGFR) is calculated using the 2020 CKD-EPI creatinine equation. This equation utilizes serum creatinine, sex, and age as parameters. The creatinine assay has traceable calibration to isotope dilution-mass spectrometry. Refer to KDIGO guidelines for clinical interpretation. In patients with unstable renal function, e.g. those with acute kidney injury, the eGFR may not accurately reflect actual GFR. Performed By: #### 3 040-3, 25340-2, 2156-10, 43-2 #### [facility] CLIA [id number] [address] [place] [address] [place] Glucose [Mass/Vol] 99 mg/dL Normal 74-99 [facility] Comment on above: Order Comment: Arnol osman Type: BLOOD SPECIMEN Ordering Facility: [facility] Address: [address] [place], [place] [id number] Result Comment: The [place] Diabetes Association (ADA) provides guidance for cutoff values for fasting glucose and random glucose. The ADA defines fasting as no caloric intake for at least 8 hours. Fasting plasma glucose results between 100 to 125 mg/dL indicate increased risk for diabetes (prediabetes). Fasting plasma glucose results greater than or equal to 126 mg/dL meet the criteria for diagnosis of diabetes. In the absence of unequivocal hyperglycemia, results should be confirmed by repeat testing. In a patient with classic symptoms of hyperglycemia or hyperglycemic crisis, random plasma glucose results greater than or equal to 200 mg/dL meet the criteria for diagnosis of diabetes. Reference: Standards of Medical Care in Diabetes 2016, [place] Diabetes Association. Diabetes Care. 2016.39(Suppl 1). Performed By: #### 3 040-3, 92316-4, 2157-, 5643-2 #### [facility] CLIA [id number] [address] [place] [address] [place] Potassium [Moles/Vol] 4.4 mmol/L Normal 3.7-5.1 [facility] Comment on above: Order Comment: Arnol osman Type: BLOOD SPECIMEN Ordering Facility: [facility] Address: [address] [place], [place] [phone] Performed By: #### 3 040-3, 15680-4, 2157-, 5643-2 #### [facility] CLIA [id number] [address] [place] [address] [place] Protein [Mass/Vol] 6.9 g/dL Normal 6.3-8.0 [facility] Comment on above: Order Comment: Arnol osman Type: BLOOD SPECIMEN Ordering Facility: [facility] Address: [address] [place], [place] [id number] Performed By: #### 3 040-3, 05411-7, 2157-6, 5643-2 #### [facility] CLIA [id number] [address] [place] [address] [place] Sodium [Moles/Vol] 140 mmol/L Normal 136-144 [facility] Comment on above: Order Comment: Speci men Type: BLOOD SPECIMEN Ordering Facility: [facility] Address: [facility] [place] [id number] Performed By: #### 3 040-3, 33270-2, 2157-6, 5643-2 #### [facility] CLIA [id number] [address] [place] [address] [place] Urea nitrogen [Mass/Vol] 18 mg/dL Normal 7-21 [facility] Comment on above: Order Comment: Speci men Type: BLOOD SPECIMEN Ordering Facility: [facility] Address: [address] [place] [address] Performed By: #### 3 040-3, 22160-3, 2157-6, 5643-2 #### [facility] CLIA [id number] [address] [place] [address] ECG COMPLETEon 01-01-2022 ECG COMPLETE Ventricular Rate : 8 4 BPM Atrial Rate : 84 BPM P-R Interval : 120 ms QRS Duration : 78 ms Q-T Interval : 356 ms QTC Calculation(Bazett) : 420 ms Calculated P [place] : 36 degrees Calculated R [place] : 18 degrees Calculated T [place] : 26 degrees NORMAL SINUS RHYTHM CANNOT RULE OUT ANTERIOR INFARCT , AGE UNDETERMINED ABNORMAL ECG NO PREVIOUS ECGS AVAILABLE Confirmed by DO VELASQUEZ JASON ([id number]), technical writer and editor CINDY PULIDO ([id number]) on 01/04/2022 8:03:34 AM NAME : ROSHAN DOMÍNGUEZ PID : [id number] : 1990 Gender : Female Race : ORD : [id number] Procedure Date : Jan 01 2022 15:15:40 Edit Date : Jan 04 2022 08:03:40 Diagnosis: NORMAL SINUS RHYTHM CANNOT RULE OUT ANTERIOR INFARCT , AGE UNDETERMINED ABNORMAL ECG NO PREVIOUS ECGS AVAILABLE Confirmed by DO VELASQUEZ JASON ([id number]), technical writer and editor CINDY PULIDO ([id number]) on 01/04/2022 8:03:34 AM Test Reason : Chest Pain Location : 26 : ER L OF Overread By : DO VELASQUEZ JASON Edited By : CINDY PULIDO Referred By : , Acquired by : , [facility] ED NOTEon 01-01-2022 ED NOTE HNO ID: [id number] Author: Cassidy Solis RN Service: ? Author Type: Registered Nurse Type: ED Notes Filed: 01/01/2022 9:39 PM Note Text: Bed: ED-01 Expected date: Expected time: Means of arrival: Comments: Triage ready [facility] ED NOTE HNO ID: [id number] Author: Keyur Sebastian RN Service: ? Author Type: Registered Nurse Type: ED Notes Filed: 01/01/2022 3:25 PM Note Text: Pt presents to the ED for an assessment and admission regarding her eating disorder. She states she been admitted to a psych unit before for the same reason but has relapsed for the last 3 months. She reports eating and then forcing herself to vomit and/or taking laxatives. She denies suicidal/homicidal thoughts. States she lives alone but feels safe at home. She was sent in by her psych clinician for evaluation and admission. Dr. Michael aware, labs and orders are in. Normal [facility] Ethanol SerPl-mCncon 022 Ethanol [Mass/Vol] mg/dL Normal <11 [facility] Comment on above: Order Comment: Arnol osman Type: BLOOD SPECIMEN Ordering Facility: [facility] Address: [address] [place] [address] Performed By: #### 3 040-3, 68115-7, 2157-6, 5643-2 #### [facility] CLIA [id number] [address] [place] [address] [place] Lipase SerPl-cCncon 01-02-20 22 Lipase [Catalytic activity/Vol] 28 U/L Normal 16-61 [facility] Comment on above: Order Comment: Arnol osman Type: BLOOD SPECIMENOrdering Facility: [facility] Address: [address] [place] [address] Performed By: #### 3 040-3, 60430-4, 2157-6, 5643-2 ####[facility] [id number] [place] [address] [place] Magnesium SerPl-mCncon 01-01 Magnesium [Mass/Vol] 2.1 mg/dL Normal 1.7-2.3 [facility] Comment on above: Order Comment: Speci men Type: BLOOD SPECIMENOrdering Facility: [facility] Address: [address] [place] [address] Performed By: #### 2 777-1, 87269-4 ####[facility] [id number] [place] [address] [place] Phosphate SerPl-mCncon 01-01 Phosphate [Mass/Vol] 4.7 mg/dL Normal 2.7-4.8 [facility] Comment on above: Order Comment: Speci men Type: BLOOD SPECIMENOrdering Facility: [facility] Address: [address] [place] [address] Performed By: #### 2 777-1, 06729-0 ####[facility] [id number] [place] [address] [place] SARS-CoV-2 RNA Resp Ql HEENA+p robeon 01-01-2022 SARS-CoV-2 (COVID-19) RNA HEENA+probe Ql (Resp) SARS-CoV-2 (Agent of COVID-19) Not Detected by RT-PCR or equivalent method. Normal Not Detected [facility] Comment on above: Order Comment: Speci men Type: SWAB OF INTERNAL NOSE Ordering Facility: [facility] Address: [address] [place] [address] Result Comment: This test has been authorized by FDA under an Emergency Use Authorization (EUA). Performed By: #### 9 4500-6 #### [facility] CLIA [id number] [address] [place] [address] [place] Urinalysis complete panel (U )on 01-01-2022 Bilirubin Ql (U) Negative Normal Negative [facility] Comment on above: Order Comment: Speci men Type: URINE SPECIMEN Ordering Facility: [facility] Address: [address] [place] [address] Performed By: #### 2 4356-8 #### [facility] CLIA [id number] [address] [place] [address] [place] Clarity (Unsp spec) Clear Normal Clear [facility] Comment on above: Order Comment: Speci men Type: URINE SPECIMEN Ordering Facility: [facility] Address: [address] [place] [address] Performed By: #### 2 4356-8 #### [facility] CLIA [id number] [address] [place] [address] [place] Color (U) Light Yellow Normal Yellow [facility] Comment on above: Order Comment: Speci men Type: URINE SPECIMEN Ordering Facility: [facility] Address: [address] [place] [address] Performed By: #### 2 4356-8 #### [facility] CLIA [id number] [address] [place] [address] [place] Epithelial cells LM.HPF (Urine sed) [#/Area] Moderate Normal [facility] Comment on above: Order Comment: Speci men Type: URINE SPECIMEN Ordering Facility: [facility] Address: [address] [place] [address] Performed By: #### 2 4356-8 #### [facility] CLIA [id number] [address] [place] [address] [place] Glucose Test strip (U) [Mass/Vol] Negative Normal Negative [facility] Comment on above: Order Comment: Speci men Type: URINE SPECIMEN Ordering Facility: [facility] Address: [address] [place] [address] Performed By: #### 2 4356-8 #### [facility] CLIA [id number] [address] [place] [address] [place] Hemoglobin Ql (U) Negative Normal Negative [facility] Comment on above: Order Comment: Speci men Type: URINE SPECIMEN Ordering Facility: [facility] Address: [address] [place] [address] Performed By: #### 2 4356-8 #### [facility] CLIA [id number] [address] [place] [address] [place] Ketones Ql (U) Negative Normal Negative [facility] Comment on above: Order Comment: Speci men Type: URINE SPECIMEN Ordering Facility: [facility] Address: [address] [place] [address] Performed By: #### 2 4356-8 #### [facility] CLIA [id number] [address] [place] [address] [place] Leukocyte esterase Test strip Ql (U) Negative Normal Negative [facility] Comment on above: Order Comment: Speci men Type: URINE SPECIMEN Ordering Facility: [facility] Address: [address] [place] [address] Performed By: #### 2 4356-8 #### [facility] CLIA [id number] [address] [place] [address] [place] Nitrite Ql (U) Negative Normal Negative [facility] Comment on above: Order Comment: Speci men Type: URINE SPECIMEN Ordering Facility: [facility] Address: [address] [place] [address] Performed By: #### 2 4356-8 #### [facility] CLIA [id number] [address] [place] [address] [place] pH (U) 6.5 [pH] Normal 5.0-8.0 [facility] Comment on above: Order Comment: Speci men Type: URINE SPECIMEN Ordering Facility: [facility] Address: [address] [place] [address] Performed By: #### 2 4356-8 #### [facility] CLIA [id number] [address] [place] [address] [place] Protein (U) [Mass/Vol] Trace Abnormal Negative [facility] Comment on above: Order Comment: Speci men Type: URINE SPECIMEN Ordering Facility: [facility] Address: [address] [place] [address] Performed By: #### 2 4356-8 #### [facility] CLIA [id number] [address] [place] [address] [place] RBC LM.HPF (Urine sed) [#/Area] 3-5 /HPF Abnormal 0-3 /HPF [facility] Comment on above: Order Comment: Speci men Type: URINE SPECIMEN Ordering Facility: [facility] Address: [address] [place] [address] Performed By: #### 2 4356-8 #### [facility] CLIA [id number] [address] [place] [address] [place] Specific gravity (U) [Rel density] 1.033 High 1.005-1.030 [facility] Comment on above: Order Comment: Speci men Type: URINE SPECIMEN Ordering Facility: [facility] Address: [address] [place] [address] Performed By: #### 2 4356-8 #### [facility] CLIA [id number] [address] [place] [address] [place] Urobilinogen Ql (U) Negative Normal Negative [facility] Comment on above: Order Comment: Speci men Type: URINE SPECIMEN Ordering Facility: [facility] Address: [address] [place] [address] Performed By: #### 2 4356-8 #### [facility] IA [id number] [address] [place] [address] [place] WBC LM.HPF (Urine sed) [#/Area] 0-5 /HPF Normal 0-5 /HPF [facility] Comment on above: Order Comment: Speci men Type: URINE SPECIMEN Ordering Facility: [facility] Address: [address] [place] [address] Performed By: #### 2 4356-8 #### [facility] CLIA [id number] [address] [place] [address] [place] Urine culture routineOrdered By: Phillip Davis on 12-18-2021 Bacteria identified Cx Nom (U) 2 Days [facility] Automated erythrocytes count in urine sediment (number/area)Ordered By: Phillip Davis on 12-16-2021 RBC Auto (Urine sed) [#/Area] 0-1 [HPF] 0-4 [facility] Automated leukocytes count i n urine sediment (number/area)Ordered By: Phillip Davis on 12-16-2021 WBC Auto (Urine sed) [#/Area] 10-19 [HPF] 0-4 [facility] Bilirubin Test strip Ql (U)O rdered By: Phillip Davis on 12-16-2021 Bilirubin Ql (U) Negative Negative [facility] Color Auto (U)Ordered By: Ab mendoza Davis on 12-16-2021 Color (U) Yellow Yellow [facility] Ketones Auto test strip (U) [Mass/Vol]Ordered By: Phillip Davis on 12-16-2021 Ketones (U) [Mass/Vol] Trace Negative [facility] - UrinalysisOrder ed By: Phillip Davis on 12-16-2021 Hyaline casts LM Ql (Urine sed) 0-1 [LPF] 0-8 [facility] Nitrite Test strip Ql (U)Ord ered By: Phillip Davis on 12-16-2021 Nitrite Ql (U) Negative Negative [facility] Protein Auto test strip (U) [Mass/Vol]Ordered By: Phillip Davis on 12-16-2021 Protein (U) [Mass/Vol] Negative Negative [facility] Specific gravity Auto test s trip (U) [Rel density]Ordered By: Phillip Davis on 12-16-2021 Specific gravity (U) [Rel density] 1.008 1.001-1.030 [facility] Squamous epithelial cells de tection in urine sediment by light microscopyOrdered By: Phillip Davis on 12-16-2021 Epithelial cells.squamous LM Ql (Urine sed) 10-19 [HPF] 0-2 [facility] Urine bacteria detection by automated methodOrdered By: Phillip Davis on 12-16-2021 Bacteria Auto Ql (U) 2+ None Seen [facility] Urine clarity by refractomet ry automatedOrdered By: Phillip Davis on 12-16-2021 Clarity Refractometry automated (U) Clear Clear [facility] Urine glucose measurement by automated test strip (mass/volume)Ordered By: Phillip Davis on 12-16-2021 Glucose Auto test strip (U) [Mass/Vol] Normal mg/dL Normal [facility] Urine hemoglobin detection b y automated test stripOrdered By: Phillip Davis on 12-16-2021 Hemoglobin Auto test strip Ql (U) Negative Negative [facility] Urine leukocyte esterase det ection by automated test stripOrdered By: Phillip Davis on 12-16-2021 Leukocyte esterase Auto test strip Ql (U) 3+ Negative [facility] Urobilinogen Auto test strip (U) [Mass/Vol]Ordered By: Phillip Davis on 12-16-2021 Urobilinogen (U) [Mass/Vol] Normal mg/dL Normal [facility] pH Auto test strip (U)Ordere d By: Phillip Davis on 12-16-2021 pH (U) 6.5 [pH] 5.0-9.0 [facility] Albumin [Mass/volume] in Ser um or PlasmaOrdered By: Francheska Kelly on 12-15-2021 Albumin [Mass/Vol] 3.9 g/dL 3.2-5.5 [facility] Basophils Auto (Bld) [#/Vol] Ordered By: Francheska Kelly on 12-15-2021 Basophils (Bld) [#/Vol] 0.1 10*3/uL 0.0-0.2 [facility] Basophils/100 WBC Auto (Bld) Ordered By: Francheska Kelly on 12-15-2021 Basophils/100 WBC (Bld) 1.1 % . F [facility] Blood hemoglobin measurement (mass/volume)Ordered By: Francheska Kelly on 12-15-2021 Hemoglobin (Bld) [Mass/Vol] 14.9 g/dL 11.8-15.4 [facility] Blood leukocytes automated c ount (number/volume)Ordered By: Francheska Kelly on 12-15-2021 WBC (Bld) [#/Vol] 7.7 10*3/uL 4.5-11.0 [facility] Creatinine and Glomerular fi ltration rate.predicted panel (S/P/Bld)Ordered By: Francheska Kelly on 12-15-2021 Creatinine [Mass/Vol] 0.99 mg/dL 0.44-1.[address] [facility] Eosinophils Auto (Bld) [#/Vo l]Ordered By: Francheska Kelly on 12-15-2021 Eosinophils (Bld) [#/Vol] 0.8 10*3/uL 0.0-0.45 [facility] Eosinophils/100 WBC Auto (Bl d)Ordered By: Francheska Kelly on 12-15-2021 Eosinophils/100 WBC (Bld) 10.8 % . [facility] Erythrocyte distribution wid th Auto (RBC) [Ratio]Ordered By: Francheska Kelly on 12-15-2021 Erythrocyte distribution width (RBC) [Ratio] 12.6 % 11.9-15.3 [facility] Estimated glomerular filtrat ion rate (GFR) non- AmericanOrdered By: Francheska Kelly on 12-15-2021 GFR/1.73 sq M.predicted among non-blacks MDRD (S/P/Bld) [Vol rate/Area] > 60 mL/Min [facility] Globulin Calc (S) [Mass/Vol] Ordered By: Francheska Kelly on 12-15-2021 Globulin (S) [Mass/Vol] 2.7 g/dL [facility] Hematocrit Auto (Bld) [Volum e fraction]Ordered By: Francheska Kelly on 12-15-2021 Hematocrit (Bld) [Volume fraction] 43.1 % 34.0-46.4 [facility] Laboratory - Chemistry and C hemistry - challengeOrdered By: Francheska Kelly on 12-15-2021 Magnesium [Mass/Vol] 1.9 mg/dL 1.6-2.6 [facility] - Hematology and Cell countsOrdered By: Francheska Kelly on 12-15-2021 Nucleated RBC/100 WBC (Bld) [Ratio] 0.0 % 0-0.5 [facility] Lymphocytes Auto (Bld) [#/Vo l]Ordered By: Francheska Kelly on 12-15-2021 Lymphocytes (Bld) [#/Vol] 2.4 10*3/uL 1.00-4.8 [facility] Lymphocytes/100 WBC Auto (Bl d)Ordered By: Francheska Kelly on 12-15-2021 Lymphocytes/100 WBC (Bld) 31.5 % . [facility] MCH Auto (RBC) [Entitic mass ]Ordered By: Francheska Kelly on 12-15-2021 MCH (RBC) [Entitic mass] 31.9 pg 24.7-34.3 [facility] MCHC Auto (RBC) [Mass/Vol]Or dered By: Francheska Kelly on 12-15-2021 MCHC (RBC) [Mass/Vol] 34.6 g/dL 32.0-35.0 Fir [facility] MCV Auto (RBC) [Entitic vol] Ordered By: Francheska Kelly on 12-15-2021 MCV (RBC) [Entitic vol] 92.1 fL 80-[address] [facility] Monocytes Auto (Bld) [#/Vol] Ordered By: Francheska Kelly on 12-15-2021 Monocytes (Bld) [#/Vol] 0.6 10*3/uL 0.0-0.8 [facility] Monocytes/100 WBC Auto (Bld) Ordered By: Francheska Kelly on 12-15-2021 Monocytes/100 WBC (Bld) 8.3 % . F [facility] Neutrophils Auto (Bld) [#/Vo l]Ordered By: Francheska Kelly on 12-15-2021 Neutrophils (Bld) [#/Vol] 3.7 10*3/uL 1.8-7.7 [facility] Neutrophils/100 WBC Auto (Bl d)Ordered By: Francheska Kelly on 12-15-2021 Neutrophils/100 WBC (Bld) 48.3 % . [facility] No Panel InformationOrdered By: Francheska Kelly on 12-15-2021 Estimated GFR () > 60 mL/Min [facility] Comment on above: GFR estimated refere nce range: According to KDOQI guidelines, <60 ml/min/1.73m2 is sufficient to diagnose a patient with chronic kidney disease. Pharmacy Creatinine Clearance (Chem 66.32 [facility] Platelet mean volume Auto (B ld) [Entitic vol]Ordered By: Francheska Kelly on 12-15-2021 Platelet mean volume (Bld) [Entitic vol] 9.6 fL 6.3-10.7 [facility] Platelets Auto (Bld) [#/Vol] Ordered By: Francheska Kelly on 12-15-2021 Platelets (Bld) [#/Vol] 256 10*3/uL 150-450 [facility] Protein [Mass/volume] in Ser um or PlasmaOrdered By: Francheska Kelly on 12-15-2021 Protein [Mass/Vol] 6.6 g/dL 6.1-7.9 [facility] RBC Auto (Bld) [#/Vol]Ordere d By: Francheska Kelly on 12-15-2021 RBC (Bld) [#/Vol] 4.68 10*6/uL 3.60-5.00 [facility] Serum or plasma alanine nielsen otransferase measurement without P-5'-P (enzymatic activiOrdered By: Francheska Kelly on 12-15-2021 ALT No additional P-5'-P [Catalytic activity/Vol] 19 U/L 10-60 [facility] Serum or plasma albumin/glob ulin mass ratioOrdered By: Francheska Kelly on 12-15-2021 Albumin/Globulin [Mass ratio] 1.4 {ratio} [facility] Serum or plasma alkaline alvina sphatase measurement (enzymatic activity/volume)Ordered By: Francheska Kelly on 12-15-2021 ALP [Catalytic activity/Vol] 35 U/L 32-92 [facility] Serum or plasma aspartate am inotransferase measurement (enzymatic activity/volume)Ordered By: Francheska Kelly on 12-15-2021 AST [Catalytic activity/Vol] 18 U/L 10-42 [facility] Serum or plasma calcium cassandra urement (mass/volume)Ordered By: Francheska Kelly on 12-15-2021 Calcium [Mass/Vol] 9.2 mg/dL 8.2-10.2 [facility] Serum or plasma chloride darian surement (moles/volume)Ordered By: Francheska Kelly on 12-15-2021 Chloride [Moles/Vol] 99 mmol/L 95-114 [facility] Serum or plasma glucose cassandra urement (mass/volume)Ordered By: Francheska Kelly on 12-15-2021 Glucose [Mass/Vol] 71 mg/dL 70-100 [facility] [facility] Comment on above: ADA recommended refe rence range Random Glucose Reference Range is dependent on time and content of last meal. Glucose of more than 200 mg/dL in a nonstressed, ambulatory subject supports the diagnosis of Diabetes Mellitus. Serum or plasma potassium me asurement (moles/volume)Ordered By: Francheska Kelly on 12-15-2021 Potassium [Moles/Vol] 3.1 mmol/L 3.5-5.[address] [facility] Serum or plasma sodium measu rement (moles/volume)Ordered By: Francheska Kelly on 12-15-2021 Sodium [Moles/Vol] 136 mmol/L 136-146 [facility] Serum or plasma total biliru bin measurement (mass/volume)Ordered By: Francheska Kelly on 12-15-2021 Bilirubin [Mass/Vol] 1.6 mg/dL 0.3-1.2 [facility] Comment on above: Samples from patient s who have taken Naproxen have shown spurious elevation in Total Bilirubin levels. A metabolite of Naproxen, O-desmethylnaproxen, has been shown to interfere with the Vincent-Arthur method for measuring Total Bilirubin. Serum or plasma total carbon dioxide measurement (moles/volume)Ordered By: Francheska Kelly on 12-15-2021 CO2 [Moles/Vol] 26.8 mmol/L 22.0-30.0 [facility] Serum or plasma urea nitroge n measurement (mass/volume)Ordered By: Francheska Kelly on 12-15-2021 Urea nitrogen [Mass/Vol] 12 mg/dL 9-23 [facility] Casts typing in urine sedime nt by light microscopyOrdered By: Phillip Davis on 12-14-2021 Casts LM Nom (Urine sed) None seen [LPF] None Seen [facility] Glucose Glucometer (BldC) [M ass/Vol]Ordered By: Brent Simmons on 12-13-2021 Glucose [Mass/Vol] 72 mg/dL [facility] Comment on above: Random Glucose Refer ence Range is dependent on time and content of last meal. Glucose of more than 200 mg/dL in a nonstressed, ambulatory subject supports the diagnosis of Diabetes Mellitus. No Panel InformationOrdered By: Brent Simmons on 12-13-2021 Bedside Glucose Comment Glu2: cleaned meter [facility] [place] [Moles/volume] in Se rum or PlasmaOrdered By: Phillip Davis on 12-11-2021 [place] [Moles/Vol] 0.65 mmol/L 0.60-1.20 [facility] Laboratory - Chemistry and C hemistry - challengeOrdered By: Francheska Kelly on 12-10-2021 Cobalamin (Vitamin B12) [Mass/Vol] 733 pg/mL 180-914 [facility] Prolactin [Mass/volume] in S yoav or PlasmaOrdered By: Phillip Davis on 12-10-2021 Prolactin [Mass/Vol] 3.48 ng/mL 3.34-26.72 [facility] Serum or plasma prealbumin m easurement (mass/volume)Ordered By: Francheska Kelly on 12-10-2021 Prealbumin [Mass/Vol] 24.0 mg/dL 18.0-38.[address] [facility] Cholesterol [Mass/volume] in Serum or PlasmaOrdered By: Brent Simmons on 12-07-2021 Cholesterol [Mass/Vol] 173 mg/dL 140-200 [facility] Comment on above: Chol less than 200 m g/dl low risk Chol 201-239 mg/dl borderline risk Chol 240 mg/dl and greater high risk Cholesterol in LDL Calc [Mas s/Vol]Ordered By: Brent Simmons on 12-07-2021 Cholesterol in LDL [Mass/Vol] 109 mg/dL 0-100 [facility] Comment on above: LDL ATP III CLASSIFI CATION LDL less than 100 mg/dL Optimal LDL 100-129 mg/dL Near or above optimal LDL 130-159 mg/dL Borderline high LDL 160-189 mg/dL High LDL greater than 189 mg/dL Very high Cholesterol in VLDL Calc [Ma ss/Vol]Ordered By: Brent Simmons on 12-07-2021 Cholesterol in VLDL [Mass/Vol] 12 mg/dL [facility] No Panel InformationOrdered By: Brent Simmons on 12-07-2021 25-Hydroxy Vitamin D Total 20.3 ng/mL 30-100 [facility] Comment on above: VITAMIN D STATUS 25( [place])VITAMIN D RANGE (ng/mL) Deficient <20 Insufficient 20 to <30 Sufficient 30 to 100 Reference: Janett MF,Dino TROY, Joe HAIDER, et al. Evaluation,treatment, and prevention of vitamin D deficiency; an Endocrine Society clinical practice guideline. JCEM. 2010; 96(7):1911-30. Serum or plasma high density lipoprotein (HDL) cholesterol measurementOrdered By: Brent Simmons on 12-07-2021 Cholesterol in HDL [Mass/Vol] 51 mg/dL 35-85 [facility] Comment on above: HDL CHOL ATP-III CLA SSIFICATION Cardiovascular Risk HDL > or equal to 60 mg/dL LOW HDL < 40 mg/dL HIGH Serum or plasma total choles terol/high density lipoprotein (HDL) cholesterol mass ratOrdered By: Brent Simmons on 12-07-2021 Cholesterol.total/Ashley sterol in HDL [Mass ratio] 3.4 {ratio} <5.0 [facility] TSH DL <= 0.005 mIU/L QnOrde red By: Brent Simmons on 12-07-2021 TSH Qn 0.98 m[IU]/L 0.45-5.33 [facility] Triglyceride [Mass/volume] i n Serum or PlasmaOrdered By: Brent Simmons on 12-07-2021 Triglyceride [Mass/Vol] 63 mg/dL 35-[address] [facility] Comment on above: TRIG ATP III CLASSIF ICATION TRIG less than 150 mg/dL Normal TRIG 150-199 mg/dL Borderline high TRIG 200-500 mg/dL High TRIG greater than 500 mg/dL Very high Standard traceable to the Center for Disease Conrtrol and Prevention (CDC) test method. Amphetamine Screen Ql (U)Ord ered By: Madhu Morales on 12-06-2021 Amphetamines Ql (U) Negative Negative [facility] Barbiturates [Presence] in U rineOrdered By: Madhu Morales on 12-06-2021 Barbiturates Ql (U) Negative Negative [facility] Benzodiazepines [Presence] i n UrineOrdered By: Madhu Morales on 12-06-2021 Benzodiazepines Ql (U) Negative Negative [facility] COVID-19 SOFIAOrdered By: Karlos Morales on 12-06-2021 SARS-CoV+SARS-CoV-2 (COVID-19) Ag IA.rapid Ql (Resp) Negative Negative [facility] Comment on above: This is a duplicate Annie SARS Antigen (PAYAL) result to be used for statistical tracking purpose only. Cannabinoids [Presence] in U rine by Screen methodOrdered By: Madhu Morales on 12-06-2021 Cannabinoids Screen Ql (U) Positive Negative [facility] Comment on above: These are unconfirme d results and should not be used for legal purposes. Drug Cut-Off Concentration: AMPH 1000 ng/mL CURT 200 ng/mL MYCHAL 200 ng/mL COCM 300 ng/mL OP 300 ng/mL PCP 25 ng/mL THC 20 ng/mL HCG ( test) IA.rapi d Ql (U)Ordered By: Madhu Morales on 12-06-2021 HCG ( test) Ql (U) Negative [facility] Laboratory - Drug toxicology Ordered By: Madhu Morales on 12-06-2021 Opiates Ql (U) Negative Negative [facility] No Panel InformationOrdered By: Madhu Morales on 12-06-2021 SARS Antigen (LFIA) [facility] Phencyclidine Screen Ql (U)O rdered By: Madhu Morales on 12-06-2021 Phencyclidine Ql (U) Negative Negative [facility] Serum or plasma ethanol cassandra urement (mass/volume)Ordered By: Madhu Morales on 12-06-2021 Ethanol [Mass/Vol] mg/dL [facility] Ethanol [Mass/Vol] TNP [facility] Comment on above: Test not performed Urine cocaine detectionOrder ed By: Madhu Morales on 12-06-2021 Cocaine Ql (U) Negative Negative [facility] Yeast detection in urine sed iment by light microscopyOrdered By: Madhu Morales on 12-06-2021 Yeast LM Ql (Urine sed) None seen [HPF] None Se en [facility] Basophils Auto (Bld) [#/Vol] Ordered By: Sivakumar Sheridan on 11-27-2021 Basophils (Bld) [#/Vol] 0.1 10*3/uL 0.0-0.2 [facility] Basophils/100 WBC Auto (Bld) Ordered By: Sivakumar Sheridan on 11-27-2021 Basophils/100 WBC (Bld) 1.2 % . F [facility] Blood hemoglobin measurement (mass/volume)Ordered By: Sivakumar Sheridan on 11-27-2021 Hemoglobin (Bld) [Mass/Vol] 14.3 g/dL 11.8-15.4 [facility] Blood leukocytes automated c ount (number/volume)Ordered By: Sivakumar Sheridan on 11-27-2021 WBC (Bld) [#/Vol] 7.6 10*3/uL 4.5-11.0 [facility] Body fluid albumin measureme nt (mass/volume)Ordered By: Sivakumar Sheridan on 11-27-2021 Albumin (Body fld) [Mass/Vol] 4.1 g/dL 3.2-5.5 [facility] Creatinine and Glomerular fi ltration rate.predicted panel (S/P/Bld)Ordered By: Sivakumar Sheridan on 11-27-2021 Creatinine [Mass/Vol] 1.06 mg/dL 0.44-1.[address] [facility] Eosinophils Auto (Bld) [#/Vo l]Ordered By: Sivakumar Sheridan on 11-27-2021 Eosinophils (Bld) [#/Vol] 0.5 10*3/uL 0.0-0.45 [facility] Eosinophils/100 WBC Auto (Bl d)Ordered By: Sivakumar Sheridan on 11-27-2021 Eosinophils/100 WBC (Bld) 7.0 % . [facility] Erythrocyte distribution wid th Auto (RBC) [Ratio]Ordered By: Sivakumar Sheridan on 11-27-2021 Erythrocyte distribution width (RBC) [Ratio] 12.8 % 11.9-15.3 [facility] Estimated glomerular filtrat ion rate (GFR) non- AmericanOrdered By: Sivakumar Sheridan on 11-27-2021 GFR/1.73 sq M.predicted among non-blacks MDRD (S/P/Bld) [Vol rate/Area] > 60 mL/Min [facility] Globulin Calc (S) [Mass/Vol] Ordered By: Sivakumar Sheridan on 11-27-2021 Globulin (S) [Mass/Vol] 2.3 g/dL F [facility] Hematocrit Auto (Bld) [Volum e fraction]Ordered By: Sivakumar Sheridan on 11-27-2021 Hematocrit (Bld) [Volume fraction] 42.1 % 34.0-46.4 [facility] Laboratory - Hematology and Cell countsOrdered By: Sivakumar Sheridan on 11-27-2021 Nucleated RBC/100 WBC (Bld) [Ratio] 0.1 % 0-0.5 [facility] Lymphocytes Auto (Bld) [#/Vo l]Ordered By: Sivakumar Sheridan on 11-27-2021 Lymphocytes (Bld) [#/Vol] 2.2 10*3/uL 1.00-4.8 [facility] Lymphocytes/100 WBC Auto (Bl d)Ordered By: Sivakumar Sheridan on 11-27-2021 Lymphocytes/100 WBC (Bld) 29.1 % . [facility] MCH Auto (RBC) [Entitic mass ]Ordered By: Sivakumar Sheridan on 11-27-2021 MCH (RBC) [Entitic mass] 31.7 pg 24.7-34.3 [facility] MCHC Auto (RBC) [Mass/Vol]Or dered By: Sivakumar Sheridan on 11-27-2021 MCHC (RBC) [Mass/Vol] 34.0 g/dL 32.0-35.0 Fir [facility] MCV Auto (RBC) [Entitic vol] Ordered By: Sivakumar Sheridan on 11-27-2021 MCV (RBC) [Entitic vol] 93.4 fL 80-[address] [facility] Monocytes Auto (Bld) [#/Vol] Ordered By: Sivakumar Sheridan on 11-27-2021 Monocytes (Bld) [#/Vol] 0.4 10*3/uL 0.0-0.8 [facility] Monocytes/100 WBC Auto (Bld) Ordered By: Sivakumar Sheridan on 11-27-2021 Monocytes/100 WBC (Bld) 5.7 % . F [facility] Neutrophils Auto (Bld) [#/Vo l]Ordered By: Sivakumar Sheridan on 11-27-2021 Neutrophils (Bld) [#/Vol] 4.3 10*3/uL 1.8-7.7 [facility] Neutrophils/100 WBC Auto (Bl d)Ordered By: Sivakumar Sheridan on 11-27-2021 Neutrophils/100 WBC (Bld) 57.0 % . [facility] No Panel InformationOrdered By: Sivakumar Sheridan on 11-27-2021 Estimated GFR () > 60 mL/Min [facility] Comment on above: GFR estimated refere nce range: According to KDOQI guidelines, <60 ml/min/1.73m2 is sufficient to diagnose a patient with chronic kidney disease. Pharmacy Creatinine Clearance (Chem N/A [facility] Platelet mean volume Auto (B ld) [Entitic vol]Ordered By: Sivakumar Sheridan on 11-27-2021 Platelet mean volume (Bld) [Entitic vol] 10.2 fL 6.3-10.7 [facility] Platelets Auto (Bld) [#/Vol] Ordered By: Sivakumar Sheridan on 11-27-2021 Platelets (Bld) [#/Vol] 210 10*3/uL 150-450 [facility] Protein [Mass/volume] in Ser um or PlasmaOrdered By: Sivakumar Sheridan on 11-27-2021 Protein [Mass/Vol] 6.4 g/dL 6.1-7.9 [facility] RBC Auto (Bld) [#/Vol]Ordere d By: Sivakumar Sheridan on 11-27-2021 RBC (Bld) [#/Vol] 4.51 10*6/uL 3.60-5.00 [facility] Serum or plasma alanine nielsen otransferase measurement without P-5'-P (enzymatic activiOrdered By: Sivakumar Sheridan on 11-27-2021 ALT No additional P-5'-P [Catalytic activity/Vol] 15 U/L 10-60 [facility] Serum or plasma albumin/glob ulin mass ratioOrdered By: Sivakumar Sheridan on 11-27-2021 Albumin/Globulin [Mass ratio] 1.8 {ratio} [facility] Serum or plasma alkaline alvina sphatase measurement (enzymatic activity/volume)Ordered By: Sivakumar Sheridan on 11-27-2021 ALP [Catalytic activity/Vol] 36 U/L 32-92 [facility] Serum or plasma aspartate am inotransferase measurement (enzymatic activity/volume)Ordered By: Sivakumar Sheridan on 11-27-2021 AST [Catalytic activity/Vol] 15 U/L 10-42 [facility] Serum or plasma calcium cassandra urement (mass/volume)Ordered By: Sivakumar Sheridan on 11-27-2021 Calcium [Mass/Vol] 9.4 mg/dL 8.2-10.2 [facility] Serum or plasma chloride darian surement (moles/volume)Ordered By: Sivakumar Sheridan on 11-27-2021 Chloride [Moles/Vol] 105 mmol/L 95-114 [facility] Serum or plasma glucose cassandra urement (mass/volume)Ordered By: Sivakumar Sheridan on 11-27-2021 Glucose [Mass/Vol] 79 mg/dL 70-100 [facility] Comment on above: ADA recommended refe rence range Random Glucose Reference Range is dependent on time and content of last meal. Glucose of more than 200 mg/dL in a nonstressed, ambulatory subject supports the diagnosis of Diabetes Mellitus. Serum or plasma potassium me asurement (moles/volume)Ordered By: Sivakumar Sheridan on 11-27-2021 Potassium [Moles/Vol] 4.3 mmol/L 3.5-5.[address] [facility] Serum or plasma sodium measu rement (moles/volume)Ordered By: Sivakumar Sheridan on 11-27-2021 Sodium [Moles/Vol] 138 mmol/L 136-146 [facility] Serum or plasma total biliru bin measurement (mass/volume)Ordered By: Sivakumar Sheridan on 11-27-2021 Bilirubin [Mass/Vol] 0.2 mg/dL 0.3-1.2 [facility] Serum or plasma total carbon dioxide measurement (moles/volume)Ordered By: Sivakumar Sheridan on 11-27-2021 CO2 [Moles/Vol] 24.1 mmol/L 22.0-30.0 [facility] Serum or plasma urea nitroge n measurement (mass/volume)Ordered By: Sivakumar Sheridan on 11-27-2021 Urea nitrogen [Mass/Vol] 9 mg/dL 9-23 [facility] Albumin [Mass/volume] in Ser um or PlasmaOrdered By: Kary Lux on 11-18-2021 Albumin [Mass/Vol] 4.3 g/dL 3.2-5.5 [facility] Amphetamine Screen Ql (U)Ord ered By: Kary Lux on 11-18-2021 Amphetamines Ql (U) Negative Negative [facility] Automated erythrocytes count in urine sediment (number/area)Ordered By: Kary Lux on 11-18-2021 RBC Auto (Urine sed) [#/Area] 0-1 [HPF] 0-4 [facility] Automated leukocytes count i n urine sediment (number/area)Ordered By: Kary Lux on 11-18-2021 WBC Auto (Urine sed) [#/Area] 0-1 [HPF] 0-4 [facility] Barbiturates [Presence] in U rineOrdered By: Kary Lux on 11-18-2021 Barbiturates Ql (U) Negative Negative [facility] Basophils Auto (Bld) [#/Vol] Ordered By: Kary Lux on 11-18-2021 Basophils (Bld) [#/Vol] 0.0 10*3/uL 0.0-0.2 [facility] Basophils/100 WBC Auto (Bld) Ordered By: Kary Lux on 11-18-2021 Basophils/100 WBC (Bld) 0.6 % . F [facility] Benzodiazepines [Presence] i n UrineOrdered By: Kary Lux on 11-18-2021 Benzodiazepines Ql (U) Negative Negative [facility] Bilirubin Auto test strip Ql (U)Ordered By: Kary Lux on 11-18-2021 Bilirubin Ql (U) 1+ Negative [facility] Blood hemoglobin measurement (mass/volume)Ordered By: Kary Lux on 11-18-2021 Hemoglobin (Bld) [Mass/Vol] 14.5 g/dL 11.8-15.4 [facility] Blood leukocytes automated c ount (number/volume)Ordered By: Kary Lux on 11-18-2021 WBC (Bld) [#/Vol] 8.4 10*3/uL 4.5-11.0 [facility] Cannabinoids [Presence] in U rine by Screen methodOrdered By: Kary Lux on 11-18-2021 Cannabinoids Screen Ql (U) Positive Negative [facility] Comment on above: These are unconfirme d results and should not be used for legal purposes. Drug Cut-Off Concentration: AMPH 1000 ng/mL CURT 200 ng/mL MYCHAL 200 ng/mL COCM 300 ng/mL OP 300 ng/mL PCP 25 ng/mL THC 20 ng/mL Creatinine and Glomerular fi ltration rate.predicted panel (S/P/Bld)Ordered By: Kary Lux on 11-18-2021 Creatinine [Mass/Vol] 0.88 mg/dL 0.44-1.[address] [facility] Eosinophils Auto (Bld) [#/Vo l]Ordered By: Kary Lux on 11-18-2021 Eosinophils (Bld) [#/Vol] 0.4 10*3/uL 0.0-0.45 [facility] Eosinophils/100 WBC Auto (Bl d)Ordered By: Kary Lux on 11-18-2021 Eosinophils/100 WBC (Bld) 4.9 % . [facility] Erythrocyte distribution wid th Auto (RBC) [Ratio]Ordered By: Kary Lux on 11-18-2021 Erythrocyte distribution width (RBC) [Ratio] 12.9 % 11.9-15.3 [facility] Estimated glomerular filtrat ion rate (GFR) non- AmericanOrdered By: Kary Lux on 11-18-2021 GFR/1.73 sq M.predicted among non-blacks MDRD (S/P/Bld) [Vol rate/Area] > 60 mL/Min [facility] Globulin Calc (S) [Mass/Vol] Ordered By: Kary Lux on 11-18-2021 Globulin (S) [Mass/Vol] 2.7 g/dL F [facility] HCG ( test) IA.rapi d Ql (U)Ordered By: Kary Lux on 11-18-2021 HCG ( test) Ql (U) Negative [facility] Hematocrit Auto (Bld) [Volum e fraction]Ordered By: Kary Lux on 11-18-2021 Hematocrit (Bld) [Volume fraction] 43.3 % 34.0-46.4 [facility] Ketones Auto test strip (U) [Mass/Vol]Ordered By: Kary Lux on 11-18-2021 Ketones (U) [Mass/Vol] 1+ Negative [facility] - Chemistry and C hemistry - challengeOrdered By: Kary Lux on 11-18-2021 Lipase [Catalytic activity/Vol] 25.0 U/L 22-51 [facility] Magnesium [Mass/Vol] 1.7 mg/dL 1.6-2.6 [facility] - Drug toxicology Ordered By: Kary Lux on 11-18-2021 Opiates Ql (U) Negative Negative [facility] Laboratory - Hematology and Cell countsOrdered By: Kary Lux on 11-18-2021 Nucleated RBC/100 WBC (Bld) [Ratio] 0.0 % 0-0.5 [facility] - UrinalysisOrder ed By: Kary Lux on 11-18-2021 Hyaline casts LM Ql (Urine sed) 0-8 [LPF] 0-8 [facility] Lymphocytes Auto (Bld) [#/Vo l]Ordered By: Kary Lux on 11-18-2021 Lymphocytes (Bld) [#/Vol] 1.3 10*3/uL 1.00-4.8 [facility] Lymphocytes/100 WBC Auto (Bl d)Ordered By: Kary Lux on 11-18-2021 Lymphocytes/100 WBC (Bld) 15.2 % . [facility] MCH Auto (RBC) [Entitic mass ]Ordered By: Kary Lux on 11-18-2021 MCH (RBC) [Entitic mass] 31.2 pg 24.7-34.3 [facility] MCHC Auto (RBC) [Mass/Vol]Or dered By: Kary Lux on 11-18-2021 MCHC (RBC) [Mass/Vol] 33.6 g/dL 32.0-35.[address] [facility] MCV Auto (RBC) [Entitic vol] Ordered By: Kary Lux on 11-18-2021 MCV (RBC) [Entitic vol] 92.8 fL 80-[address] [facility] Monocytes Auto (Bld) [#/Vol] Ordered By: Kary Lux on 11-18-2021 Monocytes (Bld) [#/Vol] 0.4 10*3/uL 0.0-0.8 [facility] Monocytes/100 WBC Auto (Bld) Ordered By: Kary Lux on 11-18-2021 Monocytes/100 WBC (Bld) 4.8 % . F [facility] Neutrophils Auto (Bld) [#/Vo l]Ordered By: Kary Lux on 11-18-2021 Neutrophils (Bld) [#/Vol] 6.2 10*3/uL 1.8-7.7 [facility] Neutrophils/100 WBC Auto (Bl d)Ordered By: Kary Lux on 11-18-2021 Neutrophils/100 WBC (Bld) 74.5 % . [facility] No Panel InformationOrdered By: Kary Lux on 11-18-2021 Estimated GFR () > 60 mL/Min [facility] Comment on above: GFR estimated refere nce range: According to KDOQI guidelines, <60 ml/min/1.73m2 is sufficient to diagnose a patient with chronic kidney disease. Pharmacy Creatinine Clearance (Chem 81.42 [facility] Phencyclidine Screen Ql (U)O rdered By: Kary Lux on 11-18-2021 Phencyclidine Ql (U) Negative Negative [facility] Platelet mean volume Auto (B ld) [Entitic vol]Ordered By: Kary Lux on 11-18-2021 Platelet mean volume (Bld) [Entitic vol] 9.9 fL 6.3-10.7 [facility] Platelets Auto (Bld) [#/Vol] Ordered By: Kary Lux on 11-18-2021 Platelets (Bld) [#/Vol] 231 10*3/uL 150-450 [facility] Protein Auto test strip (U) [Mass/Vol]Ordered By: Kary Lux on 11-18-2021 Protein (U) [Mass/Vol] Trace mg/dL Negative F [facility] Protein [Mass/volume] in Ser um or PlasmaOrdered By: Kary Lux on 11-18-2021 Protein [Mass/Vol] 7.0 g/dL 6.1-7.9 [facility] RBC Auto (Bld) [#/Vol]Ordere d By: Kary Lux on 11-18-2021 RBC (Bld) [#/Vol] 4.66 10*6/uL 3.60-5.00 [facility] Serum or plasma alanine nielsen otransferase measurement without P-5'-P (enzymatic activiOrdered By: Kary Lux on 11-18-2021 ALT No additional P-5'-P [Catalytic activity/Vol] 19 U/L 10-60 [facility] Serum or plasma albumin/glob ulin mass ratioOrdered By: Kary Lux on 11-18-2021 Albumin/Globulin [Mass ratio] 1.6 {ratio} [facility] Serum or plasma alkaline alvina sphatase measurement (enzymatic activity/volume)Ordered By: Kary Lux on 11-18-2021 ALP [Catalytic activity/Vol] 43 U/L 32-92 [facility] Serum or plasma aspartate am inotransferase measurement (enzymatic activity/volume)Ordered By: Kary Lux on 11-18-2021 AST [Catalytic activity/Vol] 23 U/L 10-42 [facility] Serum or plasma calcium cassandra urement (mass/volume)Ordered By: Kary Lux on 11-18-2021 Calcium [Mass/Vol] 9.5 mg/dL 8.2-10.2 [facility] Serum or plasma chloride darian surement (moles/volume)Ordered By: Kary Lux on 11-18-2021 Chloride [Moles/Vol] 101 mmol/L 95-114 [facility] Serum or plasma glucose cassandra urement (mass/volume)Ordered By: Kary Lux on 11-18-2021 Glucose [Mass/Vol] 76 mg/dL 70-100 [facility] Comment on above: ADA recommended refe rence range Random Glucose Reference Range is dependent on time and content of last meal. Glucose of more than 200 mg/dL in a nonstressed, ambulatory subject supports the diagnosis of Diabetes Mellitus. Serum or plasma potassium me asurement (moles/volume)Ordered By: Kary Lux on 11-18-2021 Potassium [Moles/Vol] 3.5 mmol/L 3.5-5.[address] [facility] Serum or plasma sodium measu rement (moles/volume)Ordered By: Kary Lux on 11-18-2021 Sodium [Moles/Vol] 137 mmol/L 136-146 [facility] Serum or plasma total biliru bin measurement (mass/volume)Ordered By: Kary Lux on 11-18-2021 Bilirubin [Mass/Vol] 1.4 mg/dL 0.3-1.2 [facility] Comment on above: Samples from patient s who have taken Naproxen have shown spurious elevation in Total Bilirubin levels. A metabolite of Naproxen, O-desmethylnaproxen, has been shown to interfere with the Vincent-Arthur method for measuring Total Bilirubin. Serum or plasma total carbon dioxide measurement (moles/volume)Ordered By: Kary Lux on 11-18-2021 CO2 [Moles/Vol] 22.7 mmol/L 22.0-30.0 [facility] Serum or plasma urea nitroge n measurement (mass/volume)Ordered By: Kary Lux on 11-18-2021 Urea nitrogen [Mass/Vol] 7 mg/dL 9-23 [facility] Squamous epithelial cells de tection in urine sediment by light microscopyOrdered By: Kary Lux on 11-18-2021 Epithelial cells.squamous LM Ql (Urine sed) 5-9 [HPF] 0-2 [facility] Urine appearanceOrdered By: Kary Lux on 11-18-2021 Appearance (U) Clear Clear [facility] Urine bacteria detection by automated methodOrdered By: Kary Lux on 11-18-2021 Bacteria Auto Ql (U) None seen None Seen [facility] Urine cocaine detectionOrder ed By: Kary Lux on 11-18-2021 Cocaine Ql (U) Negative Negative [facility] Urine colorOrdered By: Kary Lux on 11-18-2021 Color (U) Yellow Yellow [facility] Urine glucose measurement by automated test strip (mass/volume)Ordered By: Kary Lux on 11-18-2021 Glucose Auto test strip (U) [Mass/Vol] Normal mg/dL Normal [facility] Urine hemoglobin detection b y automated test stripOrdered By: Kary Lux on 11-18-2021 Hemoglobin Auto test strip Ql (U) Negative Negative [facility] Urine leukocyte esterase det ection by automated test stripOrdered By: Kary Lux on 11-18-2021 Leukocyte esterase Auto test strip Ql (U) Negative Negative [facility] Urine nitrite detection by a utomated test stripOrdered By: Kary Lux on 11-18-2021 Nitrite Auto test strip Ql (U) Negative Negative [facility] Urobilinogen Auto test strip (U) [Mass/Vol]Ordered By: Kary Lux on 11-18-2021 Urobilinogen (U) [Mass/Vol] Normal mg/dL Normal [facility] pH Auto test strip (U)Ordere d By: Kary Lux on 11-18-2021 pH (U) 1.030 [pH] 1.001-1.030 [facility] pH (U) 5.0 [pH] 5.0-9.0 [facility] Albumin [Mass/volume] in Ser um or PlasmaOrdered By: Phillip Davis on 11-15-2021 Albumin [Mass/Vol] 4.3 g/dL 3.2-5.5 [facility] Blood hemoglobin measurement (mass/volume)Ordered By: Phillip Davis on 11-15-2021 Hemoglobin (Bld) [Mass/Vol] 14.5 g/dL 11.8-15.4 [facility] Creatinine and Glomerular fi ltration rate.predicted panel (S/P/Bld)Ordered By: Phillip Davis on 11-15-2021 Creatinine [Mass/Vol] 1.00 mg/dL 0.44-1.[address] [facility] Erythrocyte distribution wid th Auto (RBC) [Ratio]Ordered By: Phillip Davis on 11-15-2021 Erythrocyte distribution width (RBC) [Ratio] 13.2 % 11.9-15.3 [facility] Estimated glomerular filtrat ion rate (GFR) non- AmericanOrdered By: Phillip Davis on 11-15-2021 GFR/1.73 sq M.predicted among non-blacks MDRD (S/P/Bld) [Vol rate/Area] > 60 mL/Min [facility] Globulin Calc (S) [Mass/Vol] Ordered By: Phillip Davis on 11-15-2021 Globulin (S) [Mass/Vol] 2.7 g/dL F [facility] Hematocrit Auto (Bld) [Volum e fraction]Ordered By: Phillip Davis on 11-15-2021 Hematocrit (Bld) [Volume fraction] 42.9 % 34.0-46.4 [facility] [place] [Moles/volume] in Se rum or PlasmaOrdered By: Phillip Davis on 11-15-2021 [place] [Moles/Vol] mmol/L 0.60-1.20 [facility] MCH Auto (RBC) [Entitic mass ]Ordered By: Phillip Davis on 11-15-2021 MCH (RBC) [Entitic mass] 31.5 pg 24.7-34.3 [facility] MCHC Auto (RBC) [Mass/Vol]Or dered By: Phillip Davis on 11-15-2021 MCHC (RBC) [Mass/Vol] 33.8 g/dL 32.0-35.0 Fir [facility] MCV Auto (RBC) [Entitic vol] Ordered By: Phillip Davis on 11-15-2021 MCV (RBC) [Entitic vol] 93.1 fL 80-[address] [facility] No Panel InformationOrdered By: Phillip Davis on 11-15-2021 Estimated GFR () > 60 mL/Min [facility] Comment on above: GFR estimated refere nce range: According to KDOQI guidelines, <60 ml/min/1.73m2 is sufficient to diagnose a patient with chronic kidney disease. Pharmacy Creatinine Clearance (Chem N/A [facility] Platelet mean volume Auto (B ld) [Entitic vol]Ordered By: Phillip Davis on 11-15-2021 Platelet mean volume (Bld) [Entitic vol] 10.0 fL 6.3-10.7 [facility] Platelets Auto (Bld) [#/Vol] Ordered By: Phillip Davis on 11-15-2021 Platelets (Bld) [#/Vol] 250 10*3/uL 150-450 [facility] Protein [Mass/volume] in Ser um or PlasmaOrdered By: Phillip Davis on 11-15-2021 Protein [Mass/Vol] 7.0 g/dL 6.1-7.9 [facility] RBC Auto (Bld) [#/Vol]Ordere d By: Phillip Davis on 11-15-2021 RBC (Bld) [#/Vol] 4.61 10*6/uL 3.60-5.00 [facility] Serum or plasma alanine nielsen otransferase measurement without P-5'-P (enzymatic activiOrdered By: Phillip Davis on 11-15-2021 ALT No additional P-5'-P [Catalytic activity/Vol] 20 U/L 10-60 [facility] Serum or plasma albumin/glob ulin mass ratioOrdered By: Phillip Davis on 11-15-2021 Albumin/Globulin [Mass ratio] 1.6 {ratio} [facility] Serum or plasma alkaline alvina sphatase measurement (enzymatic activity/volume)Ordered By: Phillip Davis on 11-15-2021 ALP [Catalytic activity/Vol] 44 U/L 32-92 [facility] Serum or plasma aspartate am inotransferase measurement (enzymatic activity/volume)Ordered By: Phillip Davis on 11-15-2021 AST [Catalytic activity/Vol] 20 U/L 10-42 [facility] Serum or plasma calcium cassandra urement (mass/volume)Ordered By: Phillip Davis on 11-15-2021 Calcium [Mass/Vol] 9.9 mg/dL 8.2-10.2 [facility] Serum or plasma chloride darian surement (moles/volume)Ordered By: Phillip Davis on 11-15-2021 Chloride [Moles/Vol] 101 mmol/L 95-114 [facility] Serum or plasma glucose cassandra urement (mass/volume)Ordered By: Phillip Davis on 11-15-2021 Glucose [Mass/Vol] 96 mg/dL 70-100 [facility] Comment on above: ADA recommended refe rence range Random Glucose Reference Range is dependent on time and content of last meal. Glucose of more than 200 mg/dL in a nonstressed, ambulatory subject supports the diagnosis of Diabetes Mellitus. Serum or plasma potassium me asurement (moles/volume)Ordered By: Phillip Davis on 11-15-2021 Potassium [Moles/Vol] 3.6 mmol/L 3.5-5.[address] [facility] Serum or plasma sodium measu rement (moles/volume)Ordered By: Pihllip Davis on 11-15-2021 Sodium [Moles/Vol] 138 mmol/L 136-146 [facility] Serum or plasma total biliru bin measurement (mass/volume)Ordered By: Phillip Davis on 11-15-2021 Bilirubin [Mass/Vol] 0.9 mg/dL 0.3-1.2 [facility] Serum or plasma total carbon dioxide measurement (moles/volume)Ordered By: Phillip Davis on 11-15-2021 CO2 [Moles/Vol] 26.1 mmol/L 22.0-30.0 [facility] Serum or plasma urea nitroge n measurement (mass/volume)Ordered By: Phillip Davis on 11-15-2021 Urea nitrogen [Mass/Vol] 9 mg/dL 9-23 [facility] WBC Auto (Bld) [#/Vol]Ordere d By: Phillip Davis on 11-15-2021 WBC (Bld) [#/Vol] 6.4 10*3/uL 3.8-11.6 [facility] Vital Signs Date Time Vital Sign Value Performing Clinician Facility 06-25-2023 12:15-0500 Body height 157.[address] Work Phone: [facility] 06-25-2023 12:15-0500 Body weight 58.[address] Work Phone: [facility] 03-21-2023 11:00-0500 Diastolic blood pressure 70 mm[Hg] STREET LIGHT INSPECTOR-C Rachel Patti Work Phone: [facility] 03-21-2023 11:00-0500 Heart rate 90 /min STREET LIGHT INSPECTOR-C MD Lingoer Work Phone: [facility] 03-21-2023 11:00-0500 Respiratory rate 16 /min STREET LIGHT INSPECTOR-C MD Lingoer Work Phone: [facility] 03-21-2023 11:00-0500 SaO2% (BldA) [Mass fraction] 96 % STREET LIGHT INSPECTOR-C MD Lingoer Work Phone: [facility] 03-21-2023 11:00-0500 Systolic blood pressure 126 mm[Hg] STREET LIGHT INSPECTOR-C MD Lingoer Work Phone: [facility] 03-21-2023 07:51-0500 Body height 157.[address] LIGHT INSPECTOR-C MD Lingoer Work Phone: [facility] 03-21-2023 07:51-0500 Body temperature 98.1 [degF] STREET LIGHT INSPECTOR-C Rachel Patti Work Phone: [facility] 03-21-2023 07:51-0500 Body weight 60.[address] LIGHT INSPECTOR-C MD Lingoer Work Phone: [facility] 03-13-2023 16:46-0400 Diastolic blood pressure 70 mm[Hg] STREET LIGHT INSPECTOR-C MD Lingoer Work Phone: [facility] 03-13-2023 16:46-0400 Heart rate 80 /min STREET LIGHT INSPECTOR-C Rachel Patti Work Phone: [facility] 03-13-2023 16:46-0400 Respiratory rate 18 /min STREET LIGHT INSPECTOR-C Rachel Patti Work Phone: [facility] 03-13-2023 16:46-0400 SaO2% (BldA) [Mass fraction] 98 % STREET LIGHT INSPECTOR-C Rachel Patti Work Phone: 4(822)586-970985 [place] [address] 03-13-2023 16:46-0400 Systolic blood pressure 139 mm[Hg] STREET LIGHT INSPECTOR-C Rachel Patti Work Phone: 7(107)929-838185 [place] [address] 03-13-2023 13:19-0400 Body height 157.[address] LIGHT INSPECTOR-C Rachel Patti Work Phone: 8(546)413-091835 [place] [address] 03-13-2023 13:19-0400 Body temperature 98.7 [degF] STREET LIGHT INSPECTOR-C Rachel Patti Work Phone: 6(147)048-244985 [place] [address] 03-13-2023 13:19-0400 Body weight [address] LIGHT INSPECTOR-C Rachel Patti Work Phone: 7(358)404-333685 [place] [address] 03-11-2023 13:44-0400 Body temperature 98.7 [degF] STREET LIGHT INSPECTOR-C Rachel Patti Work Phone: 8(239)880-799790 [address] 03-11-2023 13:44-0400 Diastolic blood pressure 79 mm[Hg] STREET LIGHT INSPECTOR-C Rachel Patti Work Phone: 6(395)785-465285 [place] [address] 03-11-2023 13:44-0400 Heart rate 62 /min STREET LIGHT INSPECTOR-C Rachel Patti Work Phone: 2(330)286-646785 [place] [address] 03-11-2023 13:44-0400 Respiratory rate 18 /min STREET LIGHT INSPECTOR-C Rachel Patti Work Phone: [facility] 03-11-2023 13:44-0400 SaO2% (BldA) [Mass fraction] 98 % STREET LIGHT INSPECTOR-C Rachel Patti Work Phone: 4(957)665-683585 [place] [address] 03-11-2023 13:44-0400 Systolic blood pressure 130 mm[Hg] STREET LIGHT INSPECTOR-C Rachel Patti Work Phone: 3(547)562-629285 [place] [address] 03-11-2023 11:53-0400 Body height 157.[address] LIGHT INSPECTOR-C Rachel Patti Work Phone: 5(165)464-380485 [place] [address] 03-11-2023 11:53-0400 Body weight 64.[address] LIGHT INSPECTOR-C Rachel Patti Work Phone: 2(377)626-306090 [address] 01-23-2023 02:25-0400 Diastolic blood pressure 71 mm[Hg] STREET LIGHT INSPECTOR-C Rachel Patti Work Phone: 8(711)214-644535 [place] [address] 01-23-2023 02:25-0400 Heart rate 60 /min STREET LIGHT INSPECTOR-C Rachel Patti Work Phone: 8(039)391-254835 [place] [address] 01-23-2023 02:25-0400 Respiratory rate 18 /min STREET LIGHT INSPECTOR-C Rachel Patti Work Phone: 3(177)533-293890 [address] 01-23-2023 02:25-0400 SaO2% (BldA) [Mass fraction] 97 % STREET LIGHT INSPECTOR-C Rachel Patti Work Phone: [facility] 01-23-2023 02:25-0400 Systolic blood pressure 119 mm[Hg] STREET LIGHT INSPECTOR-C Rachel Patti Work Phone: [facility] 01-22-2023 19:11-0400 Body height 157.[address] LIGHT INSPECTOR-C Rachel Patti Work Phone: 3(712)574-785285 [place] [address] 01-22-2023 19:11-0400 Body temperature 99.2 [degF] STREET LIGHT INSPECTOR-C Rachel Patti Work Phone: [facility] 01-22-2023 19:11-0400 Body weight 70.[address] LIGHT INSPECTOR-C Rachel Patti Work Phone: [facility] 10-23-2022 07:30-0400 Body temperature 97.2 [degF] MD Bogdan Barnes Work Phone: [facility] 10-23-2022 07:30-0400 Diastolic blood pressure 78 mm[Hg] MD Bogdan Barnes Work Phone: [facility] 10-23-2022 07:30-0400 Heart rate 65 /min MD Bogdan Barnes Work Phone: [facility] 10-23-2022 07:30-0400 Respiratory rate 16 /min MD Bogdan Barnes Work Phone: [facility] 10-23-2022 07:30-0400 SaO2% (BldA) [Mass fraction] 95 % MD Bogdan Barnes Work Phone: [facility] 10-23-2022 07:30-0400 Systolic blood pressure 114 mm[Hg] MD Bogdan Barnes Work Phone: [facility] 10-21-2022 09:00-0400 Body weight 68.12 kg MD Bogdan Barnes Work Phone: [facility] 10-18-2022 15:25-0400 Body height 157.48 cm MD Bogdan Barnes Work Phone: [facility] 10-09-2022 21:59-0400 Body temperature 98 [degF] Services [facility] Work Phone: [facility] 10-09-2022 21:59-0400 Diastolic blood pressure 76 mm[Hg] Services [facility] [email or web address] Work Phone: [facility] 10-09-2022 21:59-0400 Heart rate 100 /min Services [facility] Work Phone: [facility] 10-09-2022 21:59-0400 Respiratory rate 18 /min [facility] Work Phone: [facility] 10-09-2022 21:59-0400 SaO2% (BldA) [Mass fraction] 98 % [facility] Work Phone: [facility] 10-09-2022 21:59-0400 Systolic blood pressure 148 mm[Hg] Services [facility] Work Phone: [facility] 10-09-2022 19:17-0400 Body height 157.48 cm [facility] Work Phone: [facility] 10-09-2022 19:17-0400 Body weight 66.7 kg [facility] Work Phone: [facility] 07-24-2022 15:48-0400 Heart rate 89 /min [facility] Work Phone: [facility] 07-24-2022 15:48-0400 Respiratory rate 18 /min [facility] Work Phone: [facility] 07-24-2022 14:59-0400 Body height 157.48 cm [facility] Work Phone: [facility] 07-24-2022 14:59-0400 Body temperature 98.7 [degF] [facility] Work Phone: [facility] 07-24-2022 14:59-0400 Body weight 72.1 kg [facility] Work Phone: [facility] 07-24-2022 14:59-0400 Diastolic blood pressure 80 mm[Hg] [facility] Work Phone: [facility] 07-24-2022 14:59-0400 SaO2% (BldA) [Mass fraction] 95 % [facility] Work Phone: [facility] 07-24-2022 14:59-0400 Systolic blood pressure 141 mm[Hg] [facility] Work Phone: [facility] 05-13-2022 12:42-0500 Body temperature 98.24 [degF] Text Entry Free [facility] 05-13-2022 12:42-0500 Diastolic blood pressure 84 mm[Hg] Text Entry Free [facility] 05-13-2022 12:42-0500 Heart rate 98 /min Text Entry Free [facility] 05-13-2022 12:42-0500 Respiratory rate 17 /min Text Entry Free [facility] 05-13-2022 12:42-0500 SaO2% (BldA) [Mass fraction] 97 % Text Entry Free [facility] 05-13-2022 12:42-0500 Systolic blood pressure 121 mm[Hg] Text Entry Free [facility] 02-24-2022 21:51-0400 Diastolic blood pressure 90 mm[Hg] Text Entry Free [facility] 02-24-2022 21:51-0400 Heart rate 96 /min Text Entry Free [facility] 02-24-2022 21:51-0400 Respiratory rate 16 /min Text Entry Free [facility] 02-24-2022 21:51-0400 SaO2% (BldA) [Mass fraction] 98 % Text Entry Free [facility] 02-24-2022 21:51-0400 Systolic blood pressure 137 mm[Hg] Text Entry Free [facility] 02-24-2022 16:16-0400 Body height 157.[address] [facility] 02-24-2022 16:16-0400 Body temperature 97.52 [degF] Text Entry Free [facility] 02-24-2022 16:16-0400 Body weight [address] [facility] 02-06-2022 19:35-0400 Body height 157.48 cm [facility] Work Phone: [facility] 02-06-2022 19:35-0400 Body temperature 98.4 [degF] [facility] Work Phone: [facility] 02-06-2022 19:35-0400 Body weight 63.5 kg [facility] Work Phone: [facility] 02-06-2022 19:35-0400 Diastolic blood pressure 105 mm[Hg] [facility] Work Phone: [facility] 02-06-2022 19:35-0400 Heart rate 64 /min [facility] Work Phone: [facility] 02-06-2022 19:35-0400 Respiratory rate 20 /min [facility] Work Phone: [facility] 02-06-2022 19:35-0400 SaO2% (BldA) [Mass fraction] 95 % [facility] Work Phone: [facility] 02-06-2022 19:35-0400 Systolic blood pressure 136 mm[Hg] [facility] Work Phone: [facility] 12-18-2021 09:00-0400 Body weight 61.97 kg [facility] Work Phone: [facility] 12-18-2021 07:23-0400 Body temperature 98 [degF] [facility] Work Phone: [facility] 12-18-2021 07:23-0400 Diastolic blood pressure 90 mm[Hg] [facility] Work Phone: [facility] 12-18-2021 07:23-0400 Heart rate 60 /min [facility] Work Phone: [facility] 12-18-2021 07:23-0400 Respiratory rate 18 /min [facility] Work Phone: [facility] 12-18-2021 07:23-0400 SaO2% (BldA) [Mass fraction] 98 % [facility] Work Phone: [facility] 12-18-2021 07:23-0400 Systolic blood pressure 126 mm[Hg] [facility] Work Phone: [facility] 12-17-2021 12:40-0400 Body height 157.48 cm [facility] Work Phone: [facility] 11-18-2021 21:45-0400 Diastolic blood pressure 68 mm[Hg] [facility] Work Phone: [facility] 11-18-2021 21:45-0400 Heart rate 62 /min [facility] Work Phone: [facility] 11-18-2021 21:45-0400 Respiratory rate 18 /min [facility] Work Phone: [facility] 11-18-2021 21:45-0400 SaO2% (BldA) [Mass fraction] 100 % Services [facility] Work Phone: [facility] 11-18-2021 21:45-0400 Systolic blood pressure 125 mm[Hg] Services [facility] Work Phone: [facility] 11-18-2021 18:39-0400 Body height 156.21 cm Services [facility] [email or web address] Work Phone: [facility] 11-18-2021 18:39-0400 Body mass index (BMI) [Ratio] 26.6 kg/m2 Services [facility] Work Phone: [facility] 11-18-2021 18:39-0400 Body temperature 98.5 [degF] Services [facility] Work Phone: [facility] 11-18-2021 18:39-0400 Body weight 65 kg Services [facility] [email or web address] Work Phone: [facility] Encounters Encounter Date Encounter Type Care Provider Facility Start: 07-18-2023 End: 07-18-2023 ambulatory HAYDER MEI Facility:[facility] Start: 07-04-2023 End: 07-18-2023 Evaluation and management of inpatient SJ JOSIANE Facility:[facility] Start: 06-25-2023 End: 06-25-2023 ambulatory KATHI ZAMORA Facility:[facility] Start: 06-25-2023 End: 06-25-[address] Work Phone: Nutrition Therapy Comment on above: Anorexia nervosa (Pr imary Dx); Dietary counseling Start: 06-25-2023 End: 06-25-2023 Telemedicine consultation with patient Kathi Zamora RD Work Phone: [facility] Start: 06-02-2023 End: 06-02-2023 ambulatory Services [facility] Facility:[facility] Start: 06-02-2023 End: 06-02-2023 ambulatory ROBER-Lissy Armstrong Work Phone: [facility] Work Phone: Start: 06-02-2023 End: 06-02-[address] LIGHT INSPECTOR-C Rachel Lewiser Work Phone: [facility] Work Phone: Start: 03-25-2023 End: 03-25-2023 ambulatory Services [facility] Facility:[facility] Start: 03-25-2023 End: 03-25-[address] LIGHT INSPECTOR-C Rachel Jones Patti Work Phone: [facility] Work Phone: Start: 03-25-2023 End: 03-25-[address] LIGHT INSPECTOR-C Rachel Lewiser Work Phone: [facility] Start: 03-21-2023 End: 03-21-2023 Emergency department patient visit Estuardo Hardin Facility:[facility] Start: 03-21-2023 End: 03-21-2023 Emergency department patient visit STREET LIGHT INSPECTOR-C Rachel Lewiser Work Phone: [facility] Work Phone: Start: 03-20-2023 End: 03-20-2023 ambulatory [facility] Facility:[facility] Start: 03-20-2023 End: 03-20-[address] LIGHT INSPECTOR-C Rachel Jones Patti Work Phone: [facility] Work Phone: Start: 03-20-2023 End: 03-20-[address] LIGHT INSPECTOR-C Rachel Lewiser Work Phone: [facility] Start: 03-13-2023 End: 03-13-2023 Emergency department patient visit Rachel Armstrong Facility:[facility] Start: 03-13-2023 ambulatory Phillip Davis Facility:[facility] Start: 03-13-2023 End: 03-13-2023 Emergency department patient visit STREET LIGHT INSPECTOR-C Rachel Patti Work Phone: [facility] Work Phone: Start: 03-11-2023 End: 03-11-2023 Emergency department patient visit Estuardo Hardin Facility:[facility] Start: 03-11-[address] LIGHT INSPECTOR-C Osmin franco Patti Work Phone: [facility] Start: 03-11-2023 End: 03-11-2023 Emergency department patient visit STREET LIGHT INSPECTOR-C Rachel Patti Work Phone: [facility] Work Phone: Start: 01-22-2023 End: 01-23-2023 Emergency department patient visit Erin Langston Jr Facility:[facility] Start: 01-22-2023 End: 01-23-2023 Emergency department patient visit STREET LIGHT INSPECTOR-C Rachel Lewiser Work Phone: [facility] Work Phone: Start: 11-14-2022 Telephone encounter Kay Ortiz RN Work Phone: General Surgery Comment on above: Appointment Start: 10-09-2022 End: 10-23-2022 Evaluation and management of inpatient [facility] [place] Facility:[facility] Start: 10-09-2022 End: 10-23-2022 Evaluation and management of inpatient Services [facility] Work Phone: [address] Work Phone: Start: 07-24-2022 End: 07-24-2022 Emergency department patient visit Services [facility] Facility:[facility] Start: 07-24-2022 End: 07-24-2022 Emergency department patient visit Services [facility] Work Phone: [facility] Work Phone: Start: 07-24-2022 End: 07-24-[address] DOCTOR MISC Facility: Start: 06-21-2022 Telephone encounter [facility] Provider Collin william Comment on above: Appointment Start: 05-13-2022 End: 05-13-2022 Emergency department patient visit Kary Villegas ED Bed 15 Start: 02-24-2022 End: 02-24-2022 Emergency department patient visit Johnny Long [facility] Adult ED Gold 13 Start: 02-06-2022 End: 02-06-2022 Emergency department patient visit [facility] [email or web address] Work Phone: [facility] Start: 02-02-2022 End: 02-04-2022 Evaluation and management of inpatient [facility] Facility: Start: 01-31-2022 ambulatory Provider Pending Facili ty:[id number] Start: 01-31-2022 End: 01-31-2022 Patient encounter procedure [facility] [email or web address] Work Phone: [facility] Start: 12-06-2021 End: 12-18-2021 Evaluation and management of inpatient [facility] [email or web address] Work Phone: [facility] Start: 11-27-2021 End: 11-27-2021 Patient encounter procedure [facility] [email or web address] Work Phone: [facility] Start: 11-18-2021 End: 11-18-2021 Emergency department patient visit Services [facility] Work Phone: [facility] Start: 11-15-2021 End: 11-15-2021 Patient encounter procedure [facility] Work Phone: [facility] [place] Start: 06-27-2021 Patient encounter status [facility] Work Phone: [facility] Procedures Date Procedure Procedure Detail Performing Clinician Start: 03-21-[address] LIGHT INSPECTOR-C Osmin franco Patti Work Phone: Start: 03-21-2023 Plain chest X-ray STREET LIGHT INSPECTOR-C Rachel Patti Work Phone: Start: 01-23-2023 Computed tomography of abdomen and pelvis with contrast STREET LIGHT INSPECTOR-C Rachel Patti Work Phone: Start: 10-14-2022 CT of abdomen and pe lvis without contrast MD Bogdan Barnes Work Phone: Start: 10-11-2022 US scan of gallbladder MD Bogdan Barnes Work Phone: Start: 10-09-2022 Urine culture MD Bogdan sahu Work Phone: Start: 07-24-2022 Plain chest X-ray Servi jose martin [facility] Work Phone: Start: 05-13-2022 End: 05-13-2022 EKG impression Kary Teran SARS Antigen (LFIA) Services [facility] Work Phone: Urine culture Services [facility] Work Phone: Plan of Treatment Date Care Activity Detail Author Start: 09-12-2031 Urine microalbumin profile DTaP,Tdap,Td Vaccine (8 - Td or Tdap) [facility] Start: 05-12-2023 Depression Assessment Depression Assessment [facility] Start: 01-10-2023 Covid-19 Vaccine ( season) Covid-19 Vaccine () [facility] Start: 01-10-2023 Influenza vaccination [facility] Start: 10-23-2022 [facility] Start: 10-12-2022 Referral to pumper gauger apprentice [facility] Start: 10-09-2022 Hospital admission [facility] Start: 10-09-2022 [facility] Start: 10-09-2022 Bacteria identified in Urine by Culture [facility] Start: 2022 HPV TESTING HPV TESTING [facility] Start: 2022 Screening for malignant neoplasm of cervix HPV Testing [facility] Start: 05-12-2022 DEPRESSION ASSESSMENT DEPRESSION ASSESSMENT [facility] Start: 02-24-2022 End: 02-25-2023 hydrOXYzine Hydrochloride (ATARAX) 25 mg Oral Tablet Every 6 Hours PRN ; TabletDOSE = 25 mg Oral Once Start: 24-Feb-2022 End: 24-Feb-2023 Ordered: 24-Feb-[address] [facility] Start: 01-10-2022 Influenza vaccination INFLUENZA (#1) [facility] Start: 12-18-2021 [facility] Work Phone: Start: 12-10-2021 Referral to clinical parking meter collector [facility] Work Phone: Start: 12-06-2021 Referral to Menswear Salesperson [facility] Work Phone: Start: 12-06-2021 Hospital admission [facility] Work Phone: Start: 04-18-2021 COVID-19 VACCINE (4 - Booster for Moderna series) COVID-19 VACCINE (4 - Booster for Moderna series) [facility] Start: 01-02-2021 COVID-19 VACCINE (3 - Booster for Moderna series) COVID-19 VACCINE (3 - Booster for Moderna series) [facility] Start: 2013 PAP TESTING PAP TESTING [facility] Start: 2013 Screening for malignant neoplasm of cervix Pap Testing [facility] Start: 09-28-2011 Urine microalbumin profile DTAP,TDAP,TD (1 - Tdap) [facility] Start: 2010 HEPATITIS C SCREENING HEPATITIS C SCREENING [facility] Start: 2010 Hepatitis C screening Hepatitis C Screening [facility] Start: 2010 HIV SCREENING HIV SCREENING [facility] Start: 2010 HIV screening HIV Screening [facility] Start: 1992 HEPATITIS B (1 of 3 - 3-dose series) HEPATITIS B (1 of 3 - 3-dose series) [facility] Start: 1992 Hepatitis B Vaccine (1 of 3 - 3-dose series) Hepatitis B Vaccine (1 of 3 - 3-dose series) [facility] Calculated LDL ashley sterol level [facility] Cholesterol.total/Ch olestero l in HDL [Mass Ratio] in Serum or Plasma [facility] Patient Education [facility] Work Phone: Patient referral [facility] Work Phone: VLDL cholesterol measurement [facility] Immunizations Immunization Date Immunization Notes Care Provider Fa cility 09-11-2021 tetanus toxoid, redu siddhartha diphtheria toxoid, and acellular pertussis vaccine, adsorbed [facility] Work Phone: [facility] Payers Date Payer Category Payer Self-pay [id number] 2022 Medicaid [id number] 1992 Unknown [id number] 56 1992 Unknown [id number] [id number] 56 1992 Unknown [id number] 2.16.840.1.354922.3.579.2.3 56 1992 Unknown [id number] 2.16.840.1.807249.3.579.2.5 93 1992 Unknown [id number] 2.16.840.1.614865.3.579.2.5 93 1957 Medicaid [id number] 1957 Medicaid [id number] Private Health Insurance [facility] [id number] Unknown [employer] Unknown [id number] 31 Unknown [id number] 2.16.840.1.906445.3.579.2.5 31 Unknown [id number] 2.16.840.1.367743.3.579.2.5 31 Unknown [id number] 2.16.840.1.347783.3.579.2.5 31 Unknown [id number] 2.16.840.1.213838.3.579.2.5 31 Unknown [id number] 2.16.840.1.397314.3.579.2.5 31 Unknown [id number] 2.16.840.1.010438.3.579.2.5 31 Unknown [id number] 2.16.840.1.405319.3.579.2.5 31 Unknown [id number] 2.16.840.1.323052.3.579.2.5 31 Unknown [id number] 2.16.840.1.696139.3.579.2.5 31 Social History Date Type Detail Facility Start: 12-10-2021 End: 03-21-2023 Tobacco smoking status TNIS Smoker (finding) [facility] Start: 1990 Sex Assigned At Female F [facility] Tobacco smoking consumption unknown [facility] Start: 1990 Sex Assigned At Not on file [facility] Start: 03-11-2023 Tobacco smoking stat [facility] Never smoked tobacco (finding) [facility] Start: 06-25-2023 History of Social function [facility] Start: 06-25-2023 Area Deprivation Index [facility] National Score (1-10 0), lower number is lower risk 63 [facility] Goals Date Patient Goal Desired Activity /State Functional Status Date Assessment Result Facility 10-23-2022 Functional status Patient at [facility] Work Phone: 12-18-2021 Functional status Patient at [facility] Work Phone: Mental Status Date Assessment Result Facility 10-23-2022 Cognitive function Cognitive Sta tus Patient at [facility] Work Phone: 12-18-2021 Cognitive function Cognitive Sta tus Patient at [facility] Work Phone: Clinical Notes 06-21-2022 to 07-17-[address] - 06/25/2023 12:18 PM ESTTelephone Encounter - Kay Ortiz RN - 11/14/2022 10:25 AM EDT Note Date & Type Note Facility 07-17-2023 Note [facility] 07-17-2023 Note [facility] 07-16-2023 Note [facility] 07-15-2023 Note [facility] 07-14-2023 Note [facility] 07-14-2023 Note [facility] 07-13-2023 Note [facility] 07-13-2023 Note [facility] 07-12-2023 Note [facility] 07-11-2023 Note [facility] 07-11-2023 Note [facility] 07-10-2023 Note [facility] 07-09-2023 Note [facility] 07-09-2023 Note [facility] 07-08-2023 Note [facility] 07-07-2023 Note [facility] 07-07-2023 Note [facility] 07-06-2023 Note [facility] 07-05-2023 Note [facility] 07-05-2023 Note [facility] 06-25-[address] - 06/25/2023 4:00 PM EST Sip on water throughout the day. Avoid diuretic use if possible. Start B12 supplement as prescribed Go to the [facility] Emergency Department and communicate that you have Anorexia and you plan to start treatment with [facility], but they requested you be nutritionally stabilized prior to transitioning to their program. While inpatient, they will use the Nutrition Insufficiency Protocol to help you get nutritionally stabilized. 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 documented in this encounter [facility] 06-25-2023 Note [facility] 06-25-2023 History of Presen t illness Narrative [facility] Nutrition Therapy: Virtual Consult - Initial Assessment I have communicated my name and active licensure. The patient s identity and physical location were verified at the time of this visit. Either the patient or their legal hvac sales representative has been informed of the risks and benefits of -- and alternatives to -- treatment through a remote evaluation and consents to proceed with the evaluation remotely. Nutrition Diagnosis: Malnutrition, related to, inadequate PO intake due to Anorexia Nervosa, as evidenced by weight loss of >20% UBW X <1 year and PO intake <50% X at least 2-3 months. RECOMMENDED MALNUTRITION DIAGNOSIS: SEVERE PROTEIN-CALORIE MALNUTRITION NUTRITION CARE PLAN Nutrition Intervention 06/25/2023: Modify type and amount of food consumed for meals and snacks: Sip on water throughout the day. Avoid diuretic use if possible. Start B12 supplement as prescribed Go to the [facility] Emergency Department and communicate that you have Anorexia and you plan to start treatment with [facility], but they requested you be nutritionally stabilized prior to transitioning to their program. While inpatient, they will use the Nutrition Insufficiency Protocol to help you get nutritionally stabilized. 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 Nutrition Monitoring & Evaluation: inpatient admission for RFS and stabilization, followed by discharge to ED residential program Need for Follow up: PRN, transfer to inpatient Patient presents for virtual nutrition counseling in context of anorexia nervosa with diuretic and laxative abuse. Diet recall reveals poor PO intake and inadequate fluid intake. PO intake <50% needs X 3+ months and unintentional weight loss of 40# (>20% UBW) in past 10 months, suggesting severe malnutrition. C/O fatigue, numbness in fingers and toes, hair thinning, nausea when she tries to eat, lightheadedness, and shakiness (even after eating). Patient states she is unable to eat even small snacks without feeling sick and/or vomiting. Outpatient MNT will not be adequate treatment for this patient, even coinciding with behavioral health support; patient likely required inpatient setting to become nutritionally stable prior to attending a residential treatment facility for AN. Patient's symptoms are: Behavioral: anorexia and laxative abuse Weight Concerns: weight loss Diet History: Often goes a few days without eating anything, or maybe just a few bites of Juancarlos biscuit OR sometimes 1 PBJ sandwich for the whole day, nothing else. Beverages - black coffee (1 large mug per day), sometimes diet Coke, but not much else Vitamins/Supplements - none -she and therapist are trying to get her into a residential facility for anorexia -will go without eating for a few days often -[facility] recommended inpatient per patient for feeding tube placement (patient states some days she is open to this because she feels so poorly -intimidated by Residential facility because can't physically finish even a snack without feeling healthy -having issues with pancreas (but she is not sure what - just told by doctor that the pancreas wasn't functioning and has a mass on her liver -wasn't able to see an RD near [place] because of concerns with refeeding syndome -Struggled with ED when 16 yo, but recently has gotten bad again - restricting and using daily OTC diuretics (history of laxative abuse - currently uses a laxative on weekends every couple of weeks to make up for food consumed throughout that week) -[facility] counselor near [place] out of pocket for past 8 months or so -works at [employer] -weighed 170# last August 2022, now 130# -always tired for the past few months -sleeps okay for the past few months, but it doesn't seem to help her fatigue -hair loss/thinning, numb in fingers and toes for past 3 months or so, gets light headed, nausea. States her lab work was all messed up. If she does eat, she feels shaky afterwards -diagnosed with POTS -B12 was low but didn't know this was serious - wasn't taking prescribed supplements, hard for her to take meds, but she isn't sure why - she thinks maybe because she takes diuretics and feels she just flushes everything out. Vitamin D has been low in the past. -states labs a couple months ago showed low B12, low magnesium, low potassium. Has had low Vit D in the past. 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 Resting Metabolic Rate: 1264 Malnutrition Screening Significant unintentional weight loss? Yes NUTRITION FOCUSED PHYSICAL EXAM: Unable to perform exam due to inability to access exam locations (abdominal binders, wound dressings, restraints, etc), will re-attempt during reassessment. (Virtual appointment, patient in car and wearing multiple layers of clothing) Eating less than 75% of usual intake for more than 2 weeks? Yes Potential Signs of Inflammation: no identifiable sources In the context of Social/Environmental Circumstance based on: Unintentional Weight Loss: >20% in 12 months Insufficient Energy Intake: less than or equal to 50% for greater than or equal to 1 month Education Materials Provided: Refeeding Syndrome READINESS TO LEARN Cognitive ability: Alert and oriented Motivation to learn: Interested Family support: Unable to assess - Family not present Instruction provided to: Patient Patient learns best by: Individual Instruction Factors affecting learning: None Physical limitations affecting learning: None Referred by: self MNT Billing Type: Initial Assess/15 min 3 units SIGNATURE: Kathi Zamora RD PATIENT NAME: Roshan Domínguez DATE: 06/25/2023 TIME: 12:18 PM PAGER: [phone] documented in this encounter [facility] 11-14-2022 Miscellaneous Notes Formattin g of this note might be different from the original. Message left on Vm I was calling to inquire about work up for gallbladder as I do not see any in the chart or Care Everywhere. Informed to call the office to discuss and we would need this information for the appt tomorrow. documented in this encounter [facility] 10-23-2022 Discharge summary Note Date/Time October 23, 2022 11:31am [facility] [address] [place] [address] Discharge Summary Signed Patient: Roshan Domínguez MR#: [id number] : 1990 Acct:[id number] Age/Sex: 32 / F Adm Date: 3 Loc: Room: [address] [place] [address]: Brent Simmons MD Copies to: MD Rachel Sanchez [facility]RE[facility] LIGHT INSPECTOR-C~ Providers Date of Discharge: 10/23/22 Discharging Provider: Brent Simmons Primary Care Provider: Rachel Armstrong Consults: 10/12/22 14:11 Consult to Gastroenterology Routine 10/13/22 19:06 Consult to Dietitian Routine Discharge Diagnosis (1) Eating disorder: (2) Bipolar affect, depressed: (3) Borderline personality disorder: Final Diagnosis Final Discharge Diagnosis: Unspecified bipolar disorder Borderline personality disorder Summary Hospital Course Hospital course: According to admission note: Ms. Domínguez is a 32 year old female who presented with concerns of increasing depression, anxiety, and risk of suicidal ideation.?Patient has a history of multiple psychiatric hospitalizations for depression, anxiety, borderline personality disorder, and anorexia.? Patient states that shehas been off her medications since May when she went to a treatment center for her eating disorder.? Her feelings of depression have been increasing over the last month.? Patient complains of sleeping more, anhedonia, decreased energy, no appetite, and feelings of worthlessness/hopelessness.? Patient statesshe gets waves of suicidal thoughts and feelings that life would be better off without her and it.? Patient states she came in voluntarily because she felt like there were no other options for her and restarting her medications.? She had previously been seen by [facility] counseling, but states the wait list was too long when she called recently.? She also contacted her primary care provider about restarting antidepressants, but due to issues with the pharmacy, patient was not able to get them. Psychiatric history: Endorses history of depression, anxiety, anorexia, cutting,suicidality Family psychiatric history: Mother: Anxiety, depression, COPD Psychiatric hospitalizations: History of multiple psychiatric hospitalizations Suicide attempts: History of suicide attempts, most recent in May Employment: Unemployed Living situation: Lives with parents Substance use: Uses marijuana Patient was initially started on Trintellix. She was later switched to Pristiq. She complained of some stomach issues which was managed with some Bentyl. Her depression gradually improved during her hospitalization once the Pristiq and lithium were used. She started to show improvement with her mood and started toattend groups and socialize with peers. She did not exhibit any behavior concerning for suicidality during her hospital course. She did not have any conflict with peers or staff. Initially she was more withdrawn and kept herself, but as her mood improved she started to talk more with peers and also with staff. On the day of discharge she reported that she was feeling better. She denied any depression or suicidality. She denied any hallucinations. She felt her mood was stable and stated that she would follow-up with outpatient services. 15 days of medications were given to the patient to decrease risk of overdose. However on the day of discharge she did report that she had no thoughts of overdosing on her medications. She reported that she is in a different place and has no thoughts of that at this time. She reported that shelives with her parents which she stated is safe environment for her. She statedthat she goes to her sister and they get along fairly well when she needs to. Time spent discussing smoking cessation with patient: 3 to 10 minutes Condition Condition at Discharge: Stable Status at Discharge Cognitive/behavioral status at discharge: Mental Status Exam: Appearance: grossly normal Mental Status: mental status grossly normal Mood: Euthymic mood Affect: Normal affect Speech and Movement: speech and movement normal and speech clear Attitude: cooperative Thought Process: normal Thought Content: Denied hallucinations, no homicidality and no suicidality Insight: Good Judgment: Good Functional status at discharge: independent ambulation Overall status at discharge: patient is back to baseline Time Spent with Patient Time spent providing/coordinating discharge services (# min): 30 Exam Physical Exam Vital Signs: Temp Pulse Resp BP Pulse Ox O2 Del Method 97.2 F L 65 16 114/78 95 Room Air 10/23/22 07:30 10/23/22 07:30 10/23/22 07:30 10/23/22 07:30 10/23/22 07:30 10/23/22 07:30 Discharge Plan Discharge Plan Patient Disposition: Home Activity: No Activity Restriction Diet: Regular Additional Instructions: Regular Diet No Activity Restrictions Instructions: Bipolar Disorder (DC), [facility] [place] Instructions Prescriptions: New nicotine (polacrilex) 2 mg Gum 2 mg buccal Q2HR PRN (Reason: Nicotine Cravings) Qty: 60 0RF olanzapine 5 mg Tablet 5 mg PO QPM 15 Days Qty: 15 1RF hydroxyzine pamoate 50 mg Capsule 50 mg PO Q6H PRN (Reason: Anxiety) 15 Days Qty: 20 1RF lithium carbonate 300 mg Tablet Extended Release 300 mg PO DAILY 15 Days Qty: 15 1RF lithium carbonate 450 mg Tablet Extended Release 450 mg PO QHS 15 Days Qty: 15 1RF trazodone 100 mg Tablet 100 mg PO QHS 15 Days Qty: 15 1RF pantoprazole 40 mg Tablet,Delayed Release (Dr/Ec) 40 mg PO DAILY 15 Days Qty: 15 1RF dicyclomine 10 mg Capsule 10 mg PO TID 15 Days Qty: 45 1RF metoclopramide HCl 10 mg Tablet 10 mg PO Q6H PRN (Reason: Nausea) 15 Days Qty: 15 0RF melatonin 5 mg Tablet 5 mg PO QHS 15 Days Qty: 15 1RF desvenlafaxine succinate 25 mg Tablet Extended Release 24 Hr 25 mg PO DAILY 15 Days Qty: 15 1RF Continued budesonide-formoterol [Symbicort] 160-4.5 mcg/actuation HFA aerosol inhaler 1 inh inhalation BID Qty: 10.2 0RF albuterol sulfate 90 mcg/actuation HFA aerosol inhaler 2 inh INHALATION Q4-6H PRN (Reason: shortness of breath or wheezing) Qty: 18 0RF Rx Instructions: administer with spacer Follow Up: [facility] [Outside] ( manager scientific: (Insert date/time here) Therapy:? (insert date/time here) Intake: (Insert date/time here) Please bring a copy of your photo ID, insurance card, and proof of household income.? Psychiatry: (Insert date/time here) Group: (Insert date/time here ) ) [facility]Outside] Rachel Armstrong NP-C [Primary Care Provider] - Documented By: Brent Simmons MD 10/23/22 1129 Signed By: <Electronically signed by Brent Simmons MD> 10/23/22 1135 [facility] Work Phone: 1(620) 987-153106-13-2023 Progress note Author Brent Simmons [facility] October 22, 2022 11:36am Note Date/Time October 22, 2022 11:3 6am [facility] [address] [place], [place] [id number] Psychiatry Progress Note Signed Patient: Roshan Domínguez MR#: [id number] : 1990 Acct:[id number] Age/Sex: 32 / F Adm Date: 3 Loc: 1S Room: 5H5885-3 Type : ADM IN Attending Dr: Brent Simmons MD Copies to: ~ Date of Service: 10/22/2022 Subjective Subjective Narrative: Roshan reported that she is in a good mood today. She is happy with how things have been improving. She reported that she wants an increase in her trazodone to help with her sleep. She denied any side effects with current medication anddenied any suicidal thoughts. She stated that the Pristiq is working effectively. Mental Status Exam: Appearance: grossly normal Mental Status: mental status grossly normal Mood: Ok mood Affect: reactive affect Speech and Movement: speech and movement normal and speech clear Attitude: Cooperative Thought Process: Organized Thought Content: Denies suicidality, denies homicidality, denies AV hallucinations Insight: fair Judgment: fair Exam Physical Exam Vital Signs: Temp Pulse Resp BP Pulse Ox O2 Del Method 97.9 F 69 16 144/82 H 98 Room Air 10/22/22 07:19 10/22/22 07:19 10/22/22 07:19 10/22/22 07:19 10/22/22 07:19 10/22/22 07:19 Abnormal Involuntary Movement Dental Status Are dentures usually worn?: No Assessment/Plan Assessment/Plan (1) Eating disorder: Code(s): F50.9 - Eating disorder, unspecified Status: Chronic (2) Bipolar affect, depressed: Code(s): F31.30 - Bipolar disorder, current episode depressed, mild or moderate severity,unspecified Status: Acute (3) Borderline personality disorder: Code(s): F60.3 - Borderline personality disorder Status: Acute Plan Doing well at this time. Anticipate discharge tomorrow Continue Zyprexa 5 mg PO QHS. Continue Pristiq 25 mg PO Q daily. Continue lithium 300 mg daily and 450 mg PO QHS [place] level is 0.9. Dose was increased to 300 mg PO Q am and 450 mg PO QHS. Continue to monitor mental status Encourage group participation and medication compliance Risk benefits alternatives explained Documented By: Brent Simmons MD 10/22/22 1130 Signed By: <Electronically signed by Brent Simmons MD> 10/22/22 1136 [facility] Work Phone: 1(358) 499-804706-12-2023 Progress note Author Brent Simmons [facility] October 21, 2022 11:49am Note Date/Time October 21, 2022 11:4 9am [facility] [address] [place] [address] Psychiatry Progress Note Signed Patient: Roshan Domínguez MR#: [id number] : 1990 Acct:[id number] Age/Sex: 32 / F Adm Date: 3 Loc: Room: [address] [place] [address] Type : ADM IN Attending Dr: Brent Simmons MD Copies to: ~ Date of Service: 10/21/2022 Subjective Subjective Narrative: Anny reported that she is feeling better. She reported that she does not feel as depressed. She reported that she is tolerating her medication and denied any side effects. She stated that her suicidal thoughts have been improving. She is starting to think about discharge planning and will talk withthe therapist regarding plans moving forward. She reported that her abdominal pains have been improving. Mental Status Exam: Appearance: grossly normal Mental Status: mental status grossly normal Mood: Ok mood Affect: reactive affect Speech and Movement: speech and movement normal and speech clear Attitude: Cooperative Thought Process: Organized Thought Content: Denies suicidality, denies homicidality, denies AV hallucinations Insight: fair Judgment: fair Exam Physical Exam Vital Signs: Temp Pulse Resp BP Pulse Ox O2 Del Method 98.6 F 78 16 128/89 96 Room Air 10/21/22 07:30 10/21/22 07:30 10/21/22 07:30 10/21/22 07:30 10/21/22 07:30 10/21/22 07:30 Abnormal Involuntary Movement Dental Status Are dentures usually worn?: No Assessment/Plan Assessment/Plan (1) Eating disorder: Code(s): F50.9 - Eating disorder, unspecified Status: Chronic (2) Bipolar affect, depressed: Code(s): F31.30 - Bipolar disorder, current episode depressed, mild or moderate severity,unspecified Status: Acute (3) Borderline personality disorder: Code(s): F60.3 - Borderline personality disorder Status: Acute Plan Patient feeling better at this time. We will start working on discharge planning and patient wants to speak with therapist about some safety planning issues With anticipated discharge by Friday Continue Zyprexa 5 mg PO QHS. Continue Pristiq 25 mg PO Q daily. Continue lithium 300 mg daily and 450 mg PO QHS [place] level is 0.9. Dose was increased to 300 mg PO Q am and 450 mg PO QHS. Continue to monitor mental status Encourage group participation and medication compliance Risk benefits alternatives explained Documented By: Brent Simmons MD 10/21/22 1148 Signed By: <Electronically signed by Brent Simmons MD> 10/21/22 1149 [facility] Work Phone: [phone]) [phone] Progress note Author Phillip arriaza [facility] October 20, 2022 6:37am Note Date/Time October 20, 2022 6:37 am [facility] [address] [place] [address] Psychiatry Progress Note Signed Patient: Roshan Domínguez MR#: [id number] : 1990 Acct:[id number] Age/Sex: 32 / F Adm Date: 3 Loc: Room: [address] [place] [address] Type : ADM IN Attending Dr: Brent Simmons MD Copies to: ~ Date of Service: 10/20/2022 Subjective Subjective Narrative: No acute events overnight. Roshan reported that she is feeling better and is reading about BPD. She is trying to change in her mindset. She attended groups and is benefiting from attending groups. She has no SI/HI on exam. She is more motivated and feels better on the Pristiq. She reports moderate anxiety and requested PRN Vistaril. She is trying to use coping techniques. She is currently residing with her parents and described her relationship with her mom as a trigger . Mental Status Exam: Appearance: grossly normal Mental Status: mental status grossly normal Mood: Ok mood Affect: reactive affect Speech and Movement: speech and movement normal and speech clear Attitude: Cooperative Thought Process: Organized Thought Content: Denies suicidality, denies homicidality, denies AV hallucinations Insight: fair Judgment: fair Exam Physical Exam Vital Signs: Temp Pulse Resp BP Pulse Ox O2 Del Method 98.2 F 70 16 118/80 97 Room Air 10/19/22 21:53 10/19/22 21:53 10/19/22 21:53 10/19/22 21:53 10/19/22 21:53 10/19/22 21:53 Abnormal Involuntary Movement Dental Status Are dentures usually worn?: No Assessment/Plan Assessment/Plan (1) Eating disorder: Code(s): F50.9 - Eating disorder, unspecified Status: Chronic (2) Bipolar affect, depressed: Code(s): F31.30 - Bipolar disorder, current episode depressed, mild or moderate severity,unspecified Status: Acute (3) Borderline personality disorder: Code(s): F60.3 - Borderline personality disorder Status: Acute Plan Patient reports feeling better and has no SI/HI. She is reading about BPD. Continue Zyprexa 5 mg PO QHS. Continue Pristiq 25 mg PO Q daily. Continue lithium 300 mg daily and 450 mg PO QHS [place] level is 0.9. Dose was increased to 300 mg PO Q am and 450 mg PO QHS. Continue to monitor mental status Encourage group participation and medication compliance Risk benefits alternatives explained Documented By: Phillip Davis MD 3 [id number] Signed By: <Electronically signed by Phillip Davis MD> 10/20/22 0637 [facility] Work Phone: [phone]) 406-713506-10-2023 Progress note Author [facility] October 19, 2022 7:28am Note Date/Time October 19, 2022 7:25 am [facility] [address] [place] [address] Psychiatry Progress Note Signed Patient: Roshan Domínguez MR#: [id number] : 1990 Acct:[id number] Age/Sex: 32 / F Adm Date: 3 Loc: Room: [address] [place] [address] Type : ADM IN Attending Dr: Brent Simmons MD Copies to: ~ Date of Service: 10/19/2022 Subjective Subjective Narrative: Per staff, Roshan was encouraged patient to try something for a snack tonight and something to drink, had complained of feeling dizzy and blood pressure was 149/98, heart rate 61. Told patient that she needed to take in fluids and some nourishment to feel better. Did finally eat sherbert, cereal and pudding and orange juice x 2. Roshan reported that she is feeling depressed and her suicidal thought are ongoing. She said she was feeling groggy yesterday due to limited food intake. She was able to eat snacks and drink fluids. She said played cards with peers and did socialize with peers. She is trying to stay out of her room. She rated her suicidal thoughts at 2 out of 10 with 10 being the worst. She said suicidal thoughts usually increase at night. She said she needs more time for inpatient treatment. She said it has been hard to focus on her mental health due to her stomach problems. Mental Status Exam: Appearance: grossly normal Mental Status: mental status grossly normal Mood: Dysphoric mood Affect: Dysthymic affect Speech and Movement: speech and movement normal and speech clear Attitude: Cooperative Thought Process: Organized Thought Content: Intermittent suicidality, denies homicidality, denies AV hallucinations Insight: fair Judgment: fair Exam Physical Exam Vital Signs: Temp Pulse Resp BP Pulse Ox O2 Del Method 98.5 F 61 16 149/98 H 96 Room Air 10/18/22 20:17 10/18/22 20:17 10/18/22 20:17 10/18/22 20:17 10/18/22 20:17 10/18/22 20:17 Abnormal Involuntary Movement Dental Status Are dentures usually worn?: No Assessment/Plan Assessment/Plan (1) Eating disorder: Code(s): F50.9 - Eating disorder, unspecified Status: Chronic (2) Bipolar affect, depressed: Code(s): F31.30 - Bipolar disorder, current episode depressed, mild or moderate severity,unspecified Status: Acute (3) Borderline personality disorder: Code(s): F60.3 - Borderline personality disorder Status: Acute Plan Patient presenting with symptoms of borderline personality disorder. We discussed the importance of DBT and psychotherapy. Provided her book to read about BPD. Continue Zyprexa 5 mg PO QHS. Continue Pristiq 25 mg PO Q daily. Continue lithium 300 mg daily and 450 mg PO QHS [place] level is 0.9. Dose was increased to 300 mg PO Q am and 450 mg PO QHS. Continue to monitor mental status Encourage group participation and medication compliance Risk benefits alternatives explained Documented By: Phillip Davis MD 3 [id number] Signed By: <Electronically signed by Phillip Davis MD> 10/19/22 0728 [facility] Work Phone: [phone] Progress note Author [facility] October 18, 2022 7:56am Note Date/Time October 18, 2022 7:55a m [facility] [address] [place] [address] Psychiatry Progress Note Signed Patient: Roshan Domínguez MR#: [id number] : 1990 Acct:[id number] Age/Sex: 32 / F Adm Date: 3 Loc: Room: [address] [place] [address] Type : ADM IN Attending Dr: Brent Simmons MD Copies to: ~ Date of Service: 10/18/2022 Subjective Subjective Narrative: Roshan reported that she is feeling depressed and her suicidal thought are ongoing. She reports poor appetite and low energy. She does not feel Trintelix is working and we discussed switching it to Pristiq. Mental Status Exam: Appearance: grossly normal Mental Status: mental status grossly normal Mood: Dysphoric mood Affect: Dysthymic affect Speech and Movement: speech and movement normal and speech clear Attitude: Cooperative Thought Process: Organized Thought Content: Intermittent suicidality, denies homicidality, denies AV hallucinations Insight: fair Judgment: fair Exam Physical Exam Vital Signs: Temp Pulse Resp BP Pulse Ox O2 Del Method 97.7 F 78 16 140/78 99 Room Air 10/18/22 07:30 10/18/22 07:30 10/18/22 07:30 10/18/22 07:30 10/18/22 07:30 10/18/22 07:30 Abnormal Involuntary Movement Dental Status Are dentures usually worn?: No Assessment/Plan Assessment/Plan (1) Eating disorder: Code(s): F50.9 - Eating disorder, unspecified Status: Chronic (2) Bipolar affect, depressed: Code(s): F31.30 - Bipolar disorder, current episode depressed, mild or moderate severity,unspecified Status: Acute (3) Borderline personality disorder: Code(s): F60.3 - Borderline personality disorder Status: Acute Plan Patient presenting with symptoms of borderline personality disorder. We discussed the importance of DBT and psychotherapy. Continue Zyprexa 5 mg PO QHS. Switch Trintelix to Pristiq 25 mg PO Q daily. Continue lithium 300 mg daily and 450 mg PO QHS [place] level is 0.9. Dose was increased to 300 mg PO Q am and 450 mg PO QHS. Continue to monitor mental status Encourage group participation and medication compliance Risk benefits alternatives explained Documented By: Phillip Davis MD 3 [id number] Signed By: <Electronically signed by Phillip Davis MD> 10/18/22 0756 [facility] Work Phone: [phone] 474-776906-08-2023 Progress note Author [facility] October 17, 2022 8:11am Note Date/Time October 17, 2022 8:11a m [facility] [address] [place] [address] Psychiatry Progress Note Signed Patient: Roshan Domínguez MR#: [id number] : 1990 Acct:[id number] Age/Sex: 32 / F Adm Date: 3 Loc: Room: [address] [place] [address] Type : ADM IN Attending Dr: Brent Simmons MD Copies to: ~ Date of Service: 10/17/2022 Subjective Subjective Narrative: Roshan reported that she is feeling depressed and her suicidal thought are ongoing. She reports meds are not working but BPD does not typically respond tomedications. Her lithium level is still pending. I advised her to read a book named how to love someone with BPD. She said she wants to take Zyprexa standing order which is acceptable. Mental Status Exam: Appearance: grossly normal Mental Status: mental status grossly normal Mood: Dysphoric mood Affect: Dysthymic affect Speech and Movement: speech and movement normal and speech clear Attitude: Cooperative Thought Process: Organized Thought Content: Intermittent suicidality, denies homicidality, denies AV hallucinations Insight: fair Judgment: fair Exam Physical Exam Vital Signs: Temp Pulse Resp BP Pulse Ox O2 Del Method 98.7 F 70 16 149/100 H 97 Room Air 10/16/22 20:18 10/16/22 20:18 10/16/22 20:18 10/16/22 20:18 10/16/22 20:18 10/16/22 20:18 Abnormal Involuntary Movement Dental Status Are dentures usually worn?: No Assessment/Plan Assessment/Plan (1) Eating disorder: Code(s): F50.9 - Eating disorder, unspecified Status: Chronic (2) Bipolar affect, depressed: Code(s): F31.30 - Bipolar disorder, current episode depressed, mild or moderate severity,unspecified Status: Acute (3) Borderline personality disorder: Code(s): F60.3 - Borderline personality disorder Status: Acute Plan Patient presenting with symptoms of borderline personality disorder. We discussed the importance of DBT and psychotherapy. Start Zyprexa 5 mg PO QHS. Continue Trintellix 20 mg for depression Continue lithium 300 mg twice a day [place] level is pending. Continue to monitor mental status Encourage group participation and medication compliance Risk benefits alternatives explained Documented By: Phillip Davis MD 3 [id number] Signed By: <Electronically signed by Phillip Davis MD> 10/17/22 0811 [facility] Work Phone: [phone] 131-736906-07-2023 Progress note Author [facility] October 16, 2022 8:37am Note Date/Time October 16, 2022 8:37a m [facility] [address] [place] [address] Psychiatry Progress Note Signed Patient: Roshan Domínguez MR#: [id number] : 1990 Acct:[id number] Age/Sex: 32 / F Adm Date: 3 Loc: Room: [address] [place] [address] Type : ADM IN Attending Dr: Brent Simmons MD Copies to: ~ Date of Service: 10/16/2022 Subjective Subjective Narrative: Roshan reported that she is still struggling. She reported taking Zyprexa last night to help with sleeping and wanted to avoid trazodone to avoid restless leg. She has symptoms of borderline personality disorder particularly fear of rejection and attention seeking behaviors. She said she is feeling frustrated because we are not doing any labs. She said she is not eating enough. Labs and vitals were reviewed with the patient, mostly within normal limit. I have informed her that we will give the current medication more time to work and obtain lithium level in the morning. She is planning to talk to the therapist today and obtain advice on how to improve her symptoms. Mental Status Exam: Appearance: grossly normal Mental Status: mental status grossly normal Mood: Dysphoric mood Affect: Dysthymic affect Speech and Movement: speech and movement normal and speech clear Attitude: Cooperative Thought Process: Organized Thought Content: Intermittent suicidality, denies homicidality, denies AV hallucinations Insight: fair Judgment: fair Exam Physical Exam Vital Signs: Temp Pulse Resp BP Pulse Ox O2 Del Method 98.0 F 99 H 18 138/86 97 Room Air 10/16/22 07:30 10/16/22 07:30 10/16/22 07:30 10/16/22 07:30 10/16/22 07:30 10/16/22 07:30 Abnormal Involuntary Movement Dental Status Are dentures usually worn?: No Assessment/Plan Assessment/Plan (1) Eating disorder: Code(s): F50.9 - Eating disorder, unspecified Status: Chronic (2) Bipolar affect, depressed: Code(s): F31.30 - Bipolar disorder, current episode depressed, mild or moderate severity,unspecified Status: Acute (3) Borderline personality disorder: Code(s): F60.3 - Borderline personality disorder Status: Acute Plan Patient presenting with symptoms of borderline personality disorder. We discussed the importance of DBT and psychotherapy. Continue Trintellix 20 mg for depression Continue lithium 300 mg twice a day Continue hydroxyzine PRN for anxiety. Obtain lithium on morning. Continue to monitor mental status Encourage group participation and medication compliance Risk benefits alternatives explained Documented By: Phillip Davis MD 3 [id number] Signed By: <Electronically signed by Phillip Davis MD> 10/16/22 0837 [facility] Work Phone: [phone] Progress note Author [facility] October 15, 2022 7:51am Note Date/Time October 15, 2022 7:51a m [facility] [address] [place] [address] Psychiatry Progress Note Signed Patient: Roshan Domínguez MR#: [id number] : 1990 Acct:[id number] Age/Sex: 32 / F Adm Date: 3 Loc: 1S Room: [address] [place] [address] Type : ADM IN Attending Dr: Brent Simmons MD Copies to: ~ Date of Service: 10/15/2022 Subjective Subjective Narrative: Roshan reported that she still has suicidal thoughts and is not ready to be discharged. She said lithium might be making her feel restless at night. She will try Trazodone tonight and see if it helps. She used to take it before and said it was making her feel groggy. Discussed potentially trying 25 mg PO QHS ifthe 50 mg HS will make her groggy. Will decide tomorrow. She continues to endorse poor sleep and abdominal pain after eating. She reported that she is very frustrated with her stomach issues. She reported following up with a therapist and attending the eating program in [place]. Mental Status Exam: Appearance: grossly normal Mental Status: mental status grossly normal Mood: Dysphoric and anxious mood Affect: Dysthymic affect Speech and Movement: speech and movement normal and speech clear Attitude: Cooperative Thought Process: Organized Thought Content: Intermittent suicidality, denies homicidality, denies AV hallucinations Insight: fair Judgment: fair Exam Physical Exam Vital Signs: Temp Pulse Resp BP Pulse Ox O2 Del Method 98.3 F 52 L 18 132/84 99 Room Air 10/15/22 07:21 10/15/22 07:21 10/15/22 07:21 10/15/22 07:21 10/15/22 07:21 10/15/22 07:21 Abnormal Involuntary Movement Dental Status Are dentures usually worn?: No Assessment/Plan Assessment/Plan (1) Eating disorder: Code(s): F50.9 - Eating disorder, unspecified Status: Chronic (2) Bipolar affect, depressed: Code(s): F31.30 - Bipolar disorder, current episode depressed, mild or moderate severity,unspecified Status: Acute Plan Patient reporting ongoing depression and anxiety. Issues with her stomach have led to increased issues. Continue Trintellix 20 mg for depression Continue lithium 300 mg twice a day Continue hydroxyzine PRN for anxiety. Obtain lithium on morning. Continue to monitor mental status Encourage group participation and medication compliance Risk benefits alternatives explained Documented By: Phillip Davis MD 3 [id number] Signed By: <Electronically signed by Phillip Davis MD> 10/15/22 0751 [facility] Work Phone: [phone] 700-940806-05-2023 Progress note Author Brent [facility] October 14, 2022 11:39am Note Date/Time October 14, 2022 9:51a m [facility] [address] [place] [address] Psychiatry Progress Note Signed Patient: Roshan Domínguez MR#: [id number] : 1990 Acct:[id number] Age/Sex: 32 / F Adm Date: 3 Loc: Room: [address] [place] [address] Type : ADM IN Attending Dr: Brent Simmons MD Copies to: ~ Date of Service: 10/14/2022 Subjective Subjective Narrative: Roshan reported that she is still trying to hang in there. She continues to endorse poor sleep and abdominal pain after eating. However, onset of constant abdominal pain she is experiencing it only after eating and in the mornings. Reports the heartburn is gone and her nausea is better. She reported that she is very frustrated with her stomach issues. She continues to endorse anxiety as well as suicidal thoughts. Patient reports increased feelings of depression. Mental Status Exam: Appearance: grossly normal Mental Status: mental status grossly normal Mood: Dysphoric and anxious mood Affect: Dysthymic affect Speech and Movement: speech and movement normal and speech clear Attitude: Cooperative Thought Process: Organized Thought Content: Intermittent suicidality, denies homicidality, denies AV hallucinations Insight: fair Judgment: fair Patient was personally seen by me on the day of the encounter. I reviewed the history and performed the bartlett elements of the physical examination. I formulated the plan of care and confirmed this with the medical student as notedbelow. Exam Physical Exam Vital Signs: Temp Pulse Resp BP Pulse Ox O2 Del Method 98.3 F 58 L 18 132/85 99 Room Air 10/14/22 07:30 10/14/22 07:30 10/14/22 07:30 10/14/22 07:30 10/14/22 07:30 10/14/22 09:00 Abnormal Involuntary Movement Dental Status Are dentures usually worn?: No Assessment/Plan Assessment/Plan (1) Eating disorder: Code(s): F50.9 - Eating disorder, unspecified Status: Chronic (2) Bipolar affect, depressed: Code(s): F31.30 - Bipolar disorder, current episode depressed, mild or moderate severity,unspecified Status: Acute Plan Patient reporting ongoing depression and anxiety. Issues with her stomach have led to increased issues. We will complete CT abdomen today Appreciate input from GI Continue Trintellix 20 mg for depression Continue lithium 300 mg twice a day Continue hydroxyzine for anxiety due to history of drug use Continue to monitor mental status Encourage group participation and medication compliance Risk benefits alternatives explained Documented By: Brent Simmons MD 10/14/22 0946 Signed By: <Electronically signed by Brent Simmons MD> 10/14/22 8383 [facility] Work Phone: [phone] Progress note Author Brent Simmons [facility] October 13, 2022 11:34am Note Date/Time October 13, 2022 11:26 am [facility] [address] [place] [address] Psychiatry Progress Note Signed Patient: Roshan Domínguez MR#: [id number] : 1990 Acct:[id number] Age/Sex: 32 / F Adm Date: 3 Loc: Room: [address] [place] [address] Type : ADM IN Attending Dr: Brent Simmons MD Copies to: ~ Date of Service: 10/13/2022 Subjective Subjective Narrative: Roshan reported that she is trying to hang in there. She reported that she slept poorly overnight. She reported that she still has some anxiety. She reported that she is very frustrated with her stomach issues. She reported thatshe has just been pacing due to her anxiety and cannot focus. Mental Status Exam: Appearance: grossly normal Mental Status: mental status grossly normal Mood: Dysphoric and anxious mood Affect: Dysthymic affect Speech and Movement: speech and movement normal and speech clear Attitude: Cooperative Thought Process: Organized Thought Content: Intermittent suicidality, denies homicidality, denies AV hallucinations Insight: fair Judgment: fair Exam Physical Exam Vital Signs: Temp Pulse Resp BP Pulse Ox O2 Del Method 98.3 F 69 16 118/78 98 Room Air 10/13/22 07:30 10/13/22 07:30 10/13/22 07:30 10/13/22 07:30 10/13/22 07:30 10/13/22 07:30 Abnormal Involuntary Movement Dental Status Are dentures usually worn?: No Assessment/Plan Assessment/Plan (1) Eating disorder: Code(s): F50.9 - Eating disorder, unspecified Status: Chronic (2) Bipolar affect, depressed: Code(s): F31.30 - Bipolar disorder, current episode depressed, mild or moderate severity,unspecified Status: Acute Plan Patient reporting ongoing depression and anxiety. Issues with her stomach have led to increased issues. Continues to pace on the unit Appreciate input from GI Continue Trintellix 20 mg for depression Continue lithium 300 mg twice a day Continue hydroxyzine for anxiety due to history of drug use Continue to monitor mental status Encourage group participation and medication compliance Risk benefits alternatives explained Documented By: Brent Simmons MD 10/13/221123 Signed By: <Electronically signed by Brent Simmons MD> 10/13/22 1134 [facility] Work Phone: 1([phone]) 960-251206-04-2023 Consult note Author López Aranda [facility] October 13, 2022 10:49am Note Date/Time October 13, 2022 10:42 am [facility] [address] [place] [address] Gastroenterology Consult Note Signed Patient: Roshan Domínguez MR#: [id number] : 1990 Acct:[id number] Age/Sex: 32 / F Adm Date: 3 Loc: Room: [address] [place] [address] Type: ADM IN Attending Dr: Brent Simmons MD Copies to: MD López Sanchez MD Shannon Lynae [address] [facility] [employer]-C~ HPI Data of Consult Date of Consultation: 10/13/22 Requesting Physician: Brent Simmons MD Consult Narrative History of present illness: Ms. Domínguez is a 32 year old female who is admitted to the psych unit for psychiatric issues, who I am consulted for abd pain, n/v and abnormal U/S. She states she has had issues with abd pain with post-prandial nausea and sometimes emesis for years. It comes in cycles, sometimes lasting several several weeks and occurring daily, then will get better out of the blue. She states she has seen doctors in the past for this and never had a dx made. [facility], but [facility] was [facility] a long time. She has seen dieticians and it has beensuggested she could have gastroparesis. No issues with BMs. Denies family hx of GI problems. No frequent NSAID use. She states she has a hx of ED and thought itcould be related to that hx. She endorses heartburn. She has frequent marijuana use. She just started with new PCP in [place]. She had a abd U/S which showed a 1 cm hyperechoic lesion of the liver and possible subcentimeter GB polyp. cc:: CC: Brent Simmons MD Review of Systems Constitutional Constitutional: Reports fatigue and Denies increased appetite Eyes Eyes: Denies blurry vision and Denies diplopia ENT Ears, Nose, Mouth, and Throat: Denies change in voice and Denies dizziness Cardiovascular Cardiovascular: Denies chest pain and Denies dyspnea on exertion Respiratory Respiratory: Denies chest congestion and Denies dyspnea on exertion Gastrointestinal Gastrointestinal: Reports as per HPI Musculoskeletal Musculoskeletal: Denies atrophy and Denies joint swelling Integumentary/Breasts Skin/Breast: Denies dry skin and Denies new lesions Neurologic Neurologic: Denies abnormal movements and Denies frequent falls Psychiatric Psychiatric: Reports as per HPI [facility] Vaccinated for COVID-19?: Unknown Medical History (Updated 10/13/22 @ 10:40 by López Aranda MD) BOUCHRA (acute kidney injury) Anorexia Anxiety Asthma Borderline personality disorder Depression Eating disorder bulimia/anorexia History of kidney infection Overdose PSYCH MEDICATION OVERDOSE JULY 2019, 2 OTHER OD'S IN PAST ON PSYCH MEDICATION Pneumonia Bruno disease Surgical History History of gastrostomy as an History of neck surgery CRICOID SPLIT A BABY Family History Mother Anxiety Depression COPD (chronic obstructive pulmonary disease) Mother Myocardial infarction Social History Smoking Status: Current every day smoker Tobacco Type: e-cigarettes Substance Use Type: Marijuana Substance Abuse Comment: THC Social History Comments: Lives at home with her mother Meds Medications and Allergies Allergies Penicillins Allergy (Verified 10/09/22 19:18) Rash prochlorperazine [From Compazine] Adverse Reaction (Verified 10/09/22 19:18) Irritable Home Medications albuterol sulfate 90 mcg/actuation aerosol inhaler 2 inh inhalation Q4-6H PRN shortness of breath or wheezing #18 grams 07/24/22 [Rx] budesonide-formoterol HFA 160 mcg-4.5 mcg/actuation aerosol inhaler (Symbicort) 1 inh inhalation BID #10.2 grams 07/24/22 [Rx] Exam Physical Exam Vital Signs: Temp Pulse Resp BP Pulse Ox O2 Del Method 98.3 F 69 16 118/78 98 Room Air 10/13/22 07:30 10/13/22 07:30 10/13/22 07:30 10/13/22 07:30 10/13/22 07:30 10/13/22 07:30 Const General: no acute distress and well developed HEENT Head: normocephalic and atraumatic Mouth: moist mucous membranes Eyes Sclera: sclerae normal (no scleral icterus) EOM: EOM intact bilaterally Neck Other: trachea midline Resp Effort & Inspection: normal respiratory effort and able to speak in complete sentences GI Inspection: normal to inspection and non-distended Palpation: soft and nontender Skin General: turgor normal and no jaundice Neuro General: patient alert and patient oriented x3 Psych Appearance: grossly normal Mental Status: mental status grossly normal A&P - Gastroenterology Assessment/Plan (1) Eating disorder: Code(s): F50.9 - Eating disorder, unspecified Status: Chronic (2) Marijuana abuse: Code(s): F12.10 - Cannabis abuse, uncomplicated Status: Acute (3) Abdominal pain: Code(s): R10.9 - Unspecified abdominal pain Status: Acute (4) Nausea: Code(s): R11.0 - Nausea Status: Acute Plan Likely functional bowel disease. Cyclic vomiting syndrome could be considered, but would need strict cannabinoid abstinence trial. Mostly likely cannabis hyperemesis syndrome. Gastroparesis would be less likely unless it is related to the marijuana use. Her hyperechoic liver lesion is likely a hemangioma vs hepatic adenoma, given her age and and gender. I agree with radiology this can be followed on a repeat U/S in 6 months which can be ordered by her PCP to ensure stability. The can also reimage the GB at that time. If the possible polyp grows in size or is >1 cm then she should be referred to general surgery for elective cholecystectomy. -I would recommend PPI trial, 40 mg daily, 30 min ac -Recommend dicyclomine 10 mg tid prn for abdominal discomfort -Scheduled and PRN anti-emetics -Strict marijuana abstinence for at least 4 weeks. If problems persist after that her PCP can order gastric emptying study -PCP to repeat RUQ U/S in 6 months. If GB polyp growing, refer to gen surg. If liver lesion is stable it needs further follow up. If growing she can be referred to liver clinic for further workup. Thank you for this consult, little further to add from GI standpoint. I will sign off at this time. Documented By: López Aranda MD 10/13/22 1035 Signed By: <Electronically signed by López Aranda MD> 10/13/22 1048 [facility] Work Phone: [phone]) 440-718406-03-2023 Progress note Author Brent Simmons [facility] October 12, 2022 11:20am Note Date/Time October 12, 2022 11:03 am [facility] [address] [place] [address] Psychiatry Progress Note Signed with Addenda Patient: Roshan Domínguez MR#: [id number] : 1990 Acct:[id number] Age/Sex: 32 / F Adm Date: 3 Loc: 1S Room: [address] [place] [address] Type : ADM IN Attending Dr: Brent Simmons MD Copies to: ~ ADDENDUM1 1.1 CM SMALL HYPERECHOIC MASS LEFT LOBE OF THE LIVER.? FINDING IS NONSPECIFIC.? GIVEN ITS SIZE IN PRESUMED NO HISTORY OF CANCER, REPEAT ULTRASOUND IN 3-6 MONTHSIS SUGGESTED. ADHERENT STONE VERSUS GALLBLADDER POLYP MEASURING 9 MM.? THIS COULD ALSO BE FURTHER EVALUATED BY REPEAT ULTRASOUND. Addendum Documented By: Brent Simmons MD 10/12/221119 Addendum Signed By: <Electronically signed by Brent Simmons MD> 10/12/221119 Date of Service: 10/12/2022 Subjective Subjective Narrative: Roshan reported that she is doing okay. She reported that she did not sleep well last night. She reported that she still having some nausea and vomiting. She stated that she still feels a lot of anxiety and her depression comes in waves with intermittent suicidality. Mental Status Exam: Appearance: grossly normal Mental Status: mental status grossly normal Mood: Dysphoric and anxious mood Affect: Dysthymic affect Speech and Movement: speech and movement normal and speech clear Attitude: Cooperative Thought Process: Organized Thought Content: Intermittent suicidality, denies homicidality, denies AV hallucinations Insight: fair Judgment: fair Exam Physical Exam Vital Signs: Temp Pulse Resp BP Pulse Ox O2 Del Method 98.7 F 63 16 129/75 98 Room Air 10/12/22 07:30 10/12/22 07:30 10/12/22 07:30 10/12/22 07:30 10/12/22 07:30 10/12/22 07:30 Abnormal Involuntary Movement Dental Status Are dentures usually worn?: No Assessment/Plan Assessment/Plan (1) Eating disorder: Code(s): F50.9 - Eating disorder, unspecified Status: Chronic (2) Bipolar affect, depressed: Code(s): F31.30 - Bipolar disorder, current episode depressed, mild or moderate severity,unspecified Status: Acute Plan Patient still reporting depression and anxiety. Intermittent suicidality when it worsens Has been pacing on the unit Continue Trintellix 20 mg for depression We will add lithium 300 mg twice a day Continue hydroxyzine for anxiety due to history of drug use Continue to monitor mental status Encourage group participation and medication compliance Risk benefits alternatives explained Documented By: Brent Simmons MD 10/12/221100 Signed By: <Electronically signed by Brent Simmons MD> 10/12/221102 [facility] Work Phone: 1(155) 307-870206-02-2023 Progress note Author Brent Simmons [facility] October 11, 2022 11:44am Note Date/Time October 11, 2022 11:04 am [facility] [address] [place] [address] Psychiatry Progress Note Signed Patient: Roshan Domínguez MR#: [id number] : 1990 Acct:[id number] Age/Sex: 32 / F Adm Date: 3 Loc: 1S Room: [address] [place] [address] Type : ADM IN Attending Dr: Brent Simmons MD Copies to: ~ Date of Service: 10/11/2022 Subjective Subjective Narrative: Narrative: Patient is doing okay today. Suicidal ideation has improved. Patient states feelings of depression come and go, states she is trying to get ahandle on it. Reports that she is not overly anxious. Patient reports that since she got out of rehabilitation for her eating disorder back in May, shehas been eating whatever she wants in small amounts at home. However, she stopped smoking marijuana about 2 weeks ago and reports that her appetite has since decreased. Patient states that she is now throwing up whenever she eats and the Zofran is not helping. Patient feels frustrated that she cannot seemingly get a handle on both her eating disorder and her depression at the same time. Denies auditory/visual hallucinations. Mental Status Exam: Appearance: grossly normal Mental Status: mental status grossly normal Mood: Dysphoric mood Affect: Dysthymic affect Speech and Movement: speech and movement normal and speech clear Attitude: Cooperative Thought Process: Organized Thought Content: Denies suicidality, denies homicidality, denies AV hallucinations Insight: fair Judgment: fair Patient was personally seen by me on the day of the encounter. I reviewed the history and performed the bartlett elements of the physical examination. I formulated the plan of care and confirmed this with the medical student as notedbelow. Patient reported abdominal pain with some nausea and vomiting. She reported that she wanted to get her depression under control before things got worse. She does complain of feeling frustrated due to having some abdominal issues. Exam Physical Exam Vital Signs: Temp Pulse Resp BP Pulse Ox O2 Del Method 98.0 F 53 L 16 119/83 99 Room Air 10/11/22 07:30 10/11/22 07:30 10/11/22 07:30 10/11/22 07:30 10/11/22 07:30 10/11/22 07:30 Abnormal Involuntary Movement Dental Status Are dentures usually worn?: No Assessment/Plan Assessment/Plan (1) Eating disorder: Code(s): F50.9 - Eating disorder, unspecified Status: Chronic (2) Bipolar affect, depressed: Code(s): F31.30 - Bipolar disorder, current episode depressed, mild or moderate severity,unspecified Status: Acute Plan Patient presented due to concerns of increased depression, anxiety and risk of suicidal ideation. Increase Trintellix 20 mg for depression Continue hydroxyzine for anxiety due to history of drug use Continue to monitor mental status Encourage group participation and medication compliance Risk benefits alternatives explained Documented By: Brent Simmons MD 10/11/22 1011 Signed By: <Electronically signed by Brent Simmons MD> 10/11/22 1144 [facility] Work Phone: 1(834) 181-479006-01-2023 History and physical note Author Brent Simmons [facility] October 10, 2022 11:34am Note Date/Time October 10, 2022 11:28 am [facility] [address] [place] [address] Psychiatry H&P Signed Patient: Roshan Domínguez MR#: [id number] : 1990 Acct:[id number] Age/Sex: 32 / F Adm Date: 3 Loc: Room: [address] [place] [address] Type: ADM IN Attending Dr: Brent Simmons MD Copies to: MD Rachel Sanchez NP-C~ Date of Service: 10/10/2022 HPI History of Present Illness History of present illness: Ms. Domínguez is a 32 year old female who presented with concerns of increasing depression, anxiety, and risk of suicidal ideation. Patient has a history of multiple psychiatric hospitalizations for depression, anxiety, borderline personality disorder, and anorexia. Patient states that she has been off her medications since May when she went to a treatment center for her eating disorder. Her feelings of depression have been increasing over the last month. Patient complains of sleeping more, anhedonia, decreased energy, no appetite, and feelings of worthlessness/hopelessness. Patient states she gets waves of suicidal thoughts and feelings that life would be better off without her and it. Patient states she came in voluntarily because she felt like there were no other options for her and restarting her medications. She had previously been seen by [facility] counseling, but states the wait list was too long when she called recently. She also contacted her primary care provider about restarting antidepressants, but due to issues with the pharmacy, patient was not able to get them. Psychiatric history: Endorses history of depression, anxiety, anorexia, cutting,suicidality Family psychiatric history: Mother: Anxiety, depression, COPD Psychiatric hospitalizations: History of multiple psychiatric hospitalizations Suicide attempts: History of suicide attempts, most recent in May Employment: Unemployed Living situation: Lives with parents Substance use: Uses marijuana Review of symptoms: Constitutional: Denies chills and Denies fever(s) Eyes: Denies change in vision ENT: Denies abnormal hearing Cardiovascular: Denies chest pain Respiratory: Denies chest congestion and Denies cough Gastrointestinal: Denies change in bowel habits Genitourinary: Denies dysuria Musculoskeletal: Denies atrophy and Denies myalgias Integumentary/Breasts: Denies dry skin Neurologic: Denies abnormal gait and Denies abnormal movements Psychiatric: Reports depression and denies current suicidal ideation but recent reports of suicidal ideation with plan Physical exam: Const: cooperative Nutritional Appearance: average body habitus Orientation: alert, awake and oriented x3 HEENT: Head normal to inspection, hearing grossly normal bilaterally, external nose normal, face symmetric Eyes: appearance normal, both eyes and all related structures, sclerae normal Neck: normal visual inspection and full ROM Resp: normal respiratory effort, able to speak in complete sentences and symmetric chest movement Cardio: regular rate GI: normal to inspection and non-distended : deferred Skin: no rashes or lesions noted Neuro: CNII: Visual stover intact, CNIII,IV,: EOM intact, no nystagmus. Pupilsequal, round, reactive to light and accommodation, CNV: Sensation intact to light touch, ? CNVII: Raises eyebrows, smile/frown, puff out cheeks symmetrically, CNVIII: Hearing intact bilaterally, CNIX,X: Voice normal, soft palate elevation normal, symmetrical, CNXI: Shoulder shrug strong, equal bilaterally, CNXII: Tongue protrusion midline, movement symmetrical. Extrem: normal to inspection and full ROM Mental Status Exam: Appearance: grossly normal Mental Status: mental status grossly normal Mood: dysthymic mood Affect: dysphoric affect Speech and Movement: speech and movement normal and speech clear Attitude: cooperative Thought Process: normal Thought Content: Denied hallucinations, no homicidality, reports suicidal thoughts Insight: fair Judgment: fair Patient was personally seen by me on the day of the encounter. I reviewed the history and performed the bartlett elements of the physical examination. I formulated the plan of care and confirmed this with the medical student as notedbelrosie. Patient presented due to concern of suicidal ideation with plan to overdose. Reported increased depression after being off her medications since May. She reported that she feels like she needs to be back on her medications to helpmanage her depression and anxiety. We discussed with the previous medications that she took in the past. She stated that she would prefer to try the Trintellix. PMFSH Vaccinated for COVID-19?: Unknown Medical History BOUCHRA (acute kidney injury) Anorexia Anxiety Asthma Borderline personality disorder Depression Eating disorder bulimia/anorexia History of kidney infection Overdose PSYCH MEDICATION OVERDOSE JULY 2019, 2 OTHER OD'S IN PAST ON PSYCH MEDICATION Pneumonia Bruno disease Surgical History History of gastrostomy as an History of neck surgery CRICOID SPLIT A BABY Family History Mother Anxiety Depression COPD (chronic obstructive pulmonary disease) Mother Myocardial infarction Social History Smoking Status: Current every day smoker Tobacco Type: e-cigarettes Substance Use Type: Marijuana Substance Abuse Comment: THC Social History Comments: Lives at home with her mother Meds Medications and Allergies Allergies Penicillins Allergy (Verified 10/09/22 19:18) Rash prochlorperazine [From Compazine] Adverse Reaction (Verified 10/09/22 19:18) Irritable Home Medications albuterol sulfate 90 mcg/actuation aerosol inhaler 2 inh inhalation Q4-6H PRN shortness of breath or wheezing #18 grams 07/24/22 [Rx] budesonide-formoterol HFA 160 mcg-4.5 mcg/actuation aerosol inhaler (Symbicort) 1 inh inhalation BID #10.2 grams 07/24/22 [Rx] Exam Physical Exam Vital Signs: Temp Pulse Resp BP Pulse Ox O2 Del Method 98.3 F 72 12 133/84 98 Room Air 10/10/22 07:30 10/10/22 07:30 10/10/22 07:30 10/10/22 07:30 10/10/22 07:30 10/10/22 07:30 Results Labs 10/09/22 19:45 10/09/22 19:45 Psychiatry Labs: 10/09/22 10/09/22 10/09/22 19:44 19:45 19:45 RBC 5.01 H Hgb 15.8 H Hct 45.6 MCV 91.2 MCH 31.5 MCHC 34.6 RDW 14.0 Plt Count 278 MPV 9.6 Sodium 140 Potassium 3.9 Chloride 106 Carbon Dioxide 25.3 Anion Gap 12.6 BUN 12 Creatinine 1.07 Calcium 9.3 Total Bilirubin 0.9 AST 15 ALT 14 Alkaline Phosphatase 44 Total Protein 7.4 Albumin 4.7 Urine Color Yellow Urine Appearance Cloudy A Urine pH 5.5 Ur Specific [place] 1.027 Urine Protein Trace H Urine Glucose (UA) Normal Urine Ketones 1+ H Urine Occult Blood Negative Urine Nitrite Negative Ur Leukocyte Esterase 1+ H Urine RBC 1-2 Urine WBC 5-9 H Microbiology Microbiology: Microbiology - Results from entire visit 10/09/22 19:44 Urine - Clean-Voided Midstream Urine Culture - Preliminary <9,000 colonies/ml mixed bacterial skin contaminants 1 Day Abnormal Involuntary Movement Dental Status Are dentures usually worn?: No Assessment/Plan (1) Suicidal ideation: Code(s): R45.851 - Suicidal ideations Status: Acute (2) Major depression: Code(s): F32.9 - Major depressive disorder, single episode, unspecified Status: Acute (3) Eating disorder: Code(s): F50.9 - Eating disorder, unspecified Status: Acute Plan Patient presented due to concerns of increased depression, anxiety and risk of suicidal ideation. We will start Trintellix 10 mg for depression We will start hydroxyzine for anxiety due to history of drug use Continue to monitor mental status Encourage group participation and medication compliance Risk benefits alternatives explained Documented By: Brent Simmons MD 10/10/22 1106 Signed By: <Electronically signed by Brent Simmons MD> 10/10/22 1135 [facility] Work Phone: [phone]) 851-937003-15-2023 Hospital Discharge instructions Additional Instructions Continue your Symbicort inhaler once or twice a day as previously prescribed Continue the prednisone once a day starting tomorrow for 4 more days Use your albuterol inhaler 2 to 4 puffs every 4-6 hours as needed for wheezing shortness of breath For more severe shortness of breath wheezing use the DuoNeb aerosol treatment every 6 hours as needed I did give you referrals for ear nose and throat for your throat issue Return to the ER for high fever worsening difficulty breathing unable to swallow or any [facility] Work Phone: [phone]) 201-873402-10-2023 Miscellaneous Notes* Telephone Encounter - Coleen Miller - 06/21/2022 1:09 PM EST Left VM to call office to update registration and go over records needed for review. * Telephone Encounter - Coleen Miller - 06/21/2022 7:35 AM EST ----- Message from Zakiya Brock sent at 06/19/2022 11:28 AM EST ----- Regarding: Gastroparesis Roshan Domínguez is being referred to or the Gastroparesis clinic. Referring Physician: self referring Has the patient had a Gastric Emptying Study? No Which facility or hospital was the Gastric Emptying Study done at (please list full name of hospital or facility)? N/A If the patient had a gastric emptying study were the results abnormally delayed? No Has the patient had a Smart Pill? No Has the patient had Gastric Bypass? No Has the patient had a Gastric Sleeve? No Has the patient had a Oliver/Hiatal Hernia/Repair? No Has the patient had POP/Pyloroplasty? No Is the patient currently on TPN? No Does the patient have a G/J Tube?No Preferred phone number for contact: [phone] Send to GASTROPARESIS SCHEDULING POOL [[id number]] documented in this [facility] Preblesult note Author Phani Rick [facility] December 11, 2021 3:22pm Note Date/Time December 10, 2021 6:0 3pm [facility] [address] [place] [address] Hospitalist Consult Note Signed Patient: Roshan Domínguez MR#: [id number] : 1990 Acct:[id number] Age/Sex: 31 / F Adm Date: 2 Loc: Room: [address] [place] [address] Type: ADM IN Attending Dr: Brent Simmons MD Copies to: Brent Simmons MD [facility] K[facility] Dawson-ERINN Rick, DO~ HPI DATE OF CONSULTATION: 12/10/21 REQUESTING PROVIDER: Brent Simmons Consult Narrative Reason for Consult: dizziness HPI: 31 y.o. female with no significant PMH, psychiatric history of depression and eating disorder. Inpatient on psychiatric unit. Hospitalist team consulted fordizziness. Patient seen and examined. She was assisted to her room and did have a stumble as she went to sit on her low bed. Reporting heaviness or lightheadedness butno spinning. No associated visual disturbance or headache. She reports poor intake, self- induced with history of anorexia. Has been in inpatient treatment for this previously at [facility]. She indicates she is a failure at anorexia as all of her labs are normal, and indicates she would like this to harm herself. She denies suicidal ideation to this provider. Denies chest painor palpitations. No cough, dyspnea, or pain with inspiration. No abdominal pain or indigestion, constipation or diarrhea, nausea or vomiting. Did have some flank discomfort earlier. No dysuria or retention. No fevers or chills. Review of Systems Review of Systems All other systems reviewed & are negative unless noted below or in HPI [facility] Attestation Statement: The following information was validated with the patient. Vaccinated for COVID-19?: Yes Medical History BOUCHRA (acute kidney injury) Anorexia Anxiety Asthma Depression Eating disorder bulimia/anorexia History of kidney infection Overdose PSYCH MEDICATION OVERDOSE JULY 2019, 2 OTHER OD'S IN PAST ON PSYCH MEDICATION Pneumonia Bruno disease Surgical History History of gastrostomy as an infant History of neck surgery CRICOID SPLIT A BABY Family History Mother Anxiety Depression COPD (chronic obstructive pulmonary disease) Mother Myocardial infarction Social History Smoking Status: Current every day smoker Tobacco Type: e-cigarettes Substance Use Type: Marijuana Substance Abuse Comment: THC Meds Medications and Allergies Allergies Penicillins Allergy (Verified 12/06/21 16:46) Rash prochlorperazine [From Compazine] Adverse Reaction (Verified 12/06/21 16:46) Irritable Home Medications ziprasidone HCl 20 mg capsule (Geodon) 20 mg PO 1700 09/11/21 [History Confirmed 12/06/21] lithium carbonate 450 mg tablet,extended release 450 mg PO QHS 7 days #7 tabs 09/17/21 [Rx Confirmed 12/06/21] albuterol sulfate 90 mcg/actuation aerosol inhaler 2 inh inhalation Q4-6H PRN shortness of breath or wheezing #18 grams 09/27/21 [Rx Confirmed 12/06/21] hydroxyzine pamoate 25 mg capsule 25 mg PO DAILY 12/06/21 [History Confirmed 12/07/21] mirtazapine 15 mg tablet 7.5 mg PO HS 12/06/21 [History Confirmed 12/06/21] omeprazole 20 mg capsule,delayed release 20 mg PO DAILY 12/06/21 [History Confirmed 12/06/21] vortioxetine 5 mg tablet (Trintellix) 5 mg PO DAILY.WITH.SUPPER 12/06/21 [History Confirmed 12/06/21] Active Medications: Active Medications Generic Name Dose Route Start Last Admin Trade Name Freq PRN Reason Stop Dose Admin Acetaminophen 500 mg 12/06/21 20:24 Acetaminophen 500 Mg Tablet PO 12/06/22 20:23 Q6H PRN Fever or Pain Al Hydrox/Mg Hydrox/Simethicone 30 ml 12/06/21 20:24 Mag Hydrox/Al Hydrox/Simeth 30 Ml Udc PO 12/06/22 20:23 Q6H PRN Indigestion Albuterol 2 puff 12/06/21 21:11 Albuterol Hfa 60 Puff/8 Gram Inhaler INHALATION 12/06/22 21:10 Q4H PRN shortness of breath or wheezing Aripiprazole 10 mg 12/08/21 11:30 12/10/21 08:08 Aripiprazole 10 Mg Tablet PO 12/08/22 11:29 10 mg DAILY YASEMIN Administration Benztropine Mesylate 1 mg 12/06/21 20:24 Benztropine 1 Mg Tablet PO 12/06/22 20:23 Q6H PRN Dystonia Benztropine Mesylate 1 mg 12/06/21 20:24 Benztropine 2 Mg/2 Ml Ampul IM 12/06/22 20:23 Q6H PRN Dystonia Hydroxyzine Pamoate 50 mg 12/06/21 20:24 12/10/21 10:36 Hydroxyzine Pamoate 50 Mg Capsule PO 12/06/22 20:23 50 mg Q6H PRN Administration Anxiety Hydroxyzine Pamoate 25 mg 12/06/21 21:11 12/10/21 08:08 Hydroxyzine Pamoate 25 Mg Capsule PO 12/06/22 21:10 25 mg BID YASEMIN Administration Ibuprofen 400 mg 12/06/21 20:24 12/10/21 11:59 Ibuprofen 400 Mg Tablet PO 12/06/22 20:23 400 mg Q6H PRN Administration Pain [place] Carbonate 450 mg 12/06/21 22:00 12/09/21 21:16 [place] Carbonate 450 Mg Tablet.Er PO 12/06/22 21:59 450 mg QHS YASEMIN Administration Magnesium Hydroxide 30 ml 12/06/21 20:24 Magnesium Hydroxide Susp 30 Ml Udc PO 12/06/22 20:23 Q6H PRN Constipation Mirtazapine 7.5 mg 12/06/21 22:00 12/09/21 21:16 Mirtazapine 7.5 Mg Tablet PO 12/06/22 21:59 7.5 mg HS YASEMIN Administration Nicotine Polacrilex 2 mg 12/06/21 20:32 12/10/21 15:33 Nicotine Polacrilex 2 Mg Gum BUCCAL 12/06/22 20:31 2 mg Q2HR PRN Administration Nicotine Cravings Olanzapine 5 mg 12/06/21 20:24 12/08/21 12:10 Olanzapine 5 Mg Tablet PO 12/06/22 20:23 5 mg Q6H PRN Administration Agitation Olanzapine 5 mg 12/06/21 20:24 Olanzapine 10 Mg Vial *Nf* IM 12/06/22 20:23 Q6H PRN Agitation Omeprazole 20 mg 12/07/21 09:00 12/10/21 08:08 Omeprazole 20 Mg Capsule. PO 12/07/22 08:59 20 mg DAILY YASEMIN Administration Ondansetron HCl 8 mg 12/10/21 13:38 12/10/21 13:42 Ondansetron Odt 4 Mg Tab.Rapdis PO 12/08/22 21:55 8 mg Q12HR PRN Administration Nausea And Vomiting Sodium Chloride 0 ml 12/06/21 16:45 12/06/21 17:36 Sodium Chloride 0.9 % 10 Ml Syringe IV-PUSH 12/06/22 16:44 10 ml PRN PRN Administration Flush Sterile Water 2.1 ml 12/06/21 20:24 Water For Injection,Sterile 20 Ml Vial INJECTION 12/06/22 20:23 PRN PRN To dilute OLANZapine (ZyPREXA) Vortioxetine 5 mg 12/07/21 17:00 12/10/21 16:00 Vortioxetine 5 Mg Tablet PO 12/07/22 16:59 5 mg DAILY.WITH.SUPPER YASEMIN Administration Exam Physical Exam Vital Signs: Temp Pulse Resp BP Pulse Ox O2 Del Method 98.5 F 88 14 144/94 H 96 Room Air 12/10/21 17:54 12/10/21 17:54 12/10/21 17:54 12/10/21 17:54 12/10/21 17:54 12/10/21 17:54 Narrative: CONST- alert, ambulatory, no acute distress HEAD- normocephalic and atraumatic EENT- sclera nonicteric and conjunctiva nonerythemic, moist oral mucosa, pharynxclear NECK- supple, no cervical lymphadenopathy CARDIAC- RRR no abnormal heart tones PULM- diminished without wheeze or rhonchi, RA, no accessory muscle use or coughnoted ABD- S/NT, NABS, flat abdomen EXTREM- no edema BLE, calves nontender SKIN- W/D, good turgor MS- MAEx4 spontaneously with equal strength NEURO- A&Ox3, speech clear and tongue midline, equal facial symmetry PSYCH-mood and behavior appropriate, makes appropriate eye contact, denies suicidal ideation Results Lab Results Labs: Laboratory Results - last 72 hr 12/09/21 13:54: PHA Creatinine Clear 75.66, Sodium 139, Potassium 4.4, Chloride 107, Carbon Dioxide 16.9 L, BUN 9, Creatinine 0.97, Est GFR ( Amer) > 60,Est GFR (Non-Af Amer) > 60, Glucose 68 L, Calcium 9.4 12/09/21 13:54: Corrected WBC 8.9, Uncorrected WBC Count 8.9, RBC 4.71, Hgb 14.9, Hct 44.3, MCV 94.0, MCH 31.6, MCHC 33.6, RDW 13.1, Plt Count 286, MPV 8.9,Neut % (Auto) 70.4, Lymph % (Auto) 21.2, Luna % (Auto) 5.7, Eos % (Auto) 2.3, Baso % (Auto) 0.4, Neut # (Auto) 6.2, Lymph # (Auto) 1.9, Luna # (Auto) 0.5, Eos# (Auto) 0.2, Baso # (Auto) 0.0, Nucleated RBC % (auto) 0.1 12/08/21 20:54: POC Glucose 57 L*, POC Glucose Comment Glu2: pt request A&P - Hospitalist Assessment/Plan (1) Lightheadedness: (2) Eating disorder: Plan Lightheadedness -orthostatic vitals normal -glucose 80 -poor intake self-induced with anorexia -recently initiated on Abilify which may be contributory -no tachycardia or hypotension -check lab, UA. May need to consider IVF if dehydrated -encourage intake. Pt reports making urine Depression Eating disorder- anorexia THC use -further POC per psychiatric team for psychoactive medication management/ adjustement and psychotherapy I personally saw this patient on the day of the encounter, reviewed the history,performed the bartlett elements of the exam, formulated the plan of care and confirmed the Nurse Practitioner's assessment and plan. - Phani Rick DO Documented By: DEIRDRE Dawson 2 1800 Signed By: <Electronically signed by DEIRDRE Kelly> 12/10/212028 <Electronically signed by Phani Rick DO> 12/11/21 1522 [facility] Work Phone: Discharge summary Author [facility] December 18, 2021 12:49pm Note Date/Time December 18, 2021 12: 42pm [facility] [address] [place] [address] Discharge Summary Signed Patient: Roshan Domínguez MR#: [id number] : 1990 Acct:[id number] Age/Sex: 31 / F Adm Date: 2 Loc: Room: [address] [place] [address]: Brent Simmons MD Copies to: Brent Simmons MD [facility]~ Providers Date of Discharge: 12/18/21 Discharging Provider: Brent Simmons Primary Care Provider: [facility] Consults: 12/06/21 21:57 Consult to Case Management Routine 12/06/21 21:59 Consult to Dietitian Routine 12/10/21 17:48 Consult to Adult Hospitalist Routine 12/12/21 03:12 Consult to Dietitian Routine Discharge Diagnosis (1) Eating disorder: (2) Borderline personality disorder: Final Diagnosis Final Discharge Diagnosis: Major depressive disorder Borderline personality disorder Summary Hospital Course Hospital course: According to admission note: Ms. Domínguez is a 31 year old female who presented due to concern for depression and suicidal ideation.? It was documented that shewanted to have her eating disorder kill her or overdose on her psychiatric medications.? Upon exam, patient is adamant that she is not suicidal.? She stated that she made statements of thinking about that in the past.? She stated that she saw Dr. Valdes 2 weeks ago.? She makes statements about how outpatient team tells her that they cannot help her.? She did report that she made phone calls to the eating disorder called [facility] to try to get an appointment.? She is very frustrated about her hospitalization and seems to focus on that throughout the encounter. Psychiatric history: Endorses history of depression, anxiety, bipolar, anorexia,cutting, suicidality Family psychiatric history: Mother: Anxiety, depression, COPD Psychiatric hospitalizations: History of multiple psychiatric hospitalizations Suicide attempts: History of suicide attempts Employment: Unemployed Living situation: Lives alone Substance use: Uses marijuana Patient was initially very frustrated about her hospitalization. During hospitalization she also refused to eat for a few days her hospitalization. Shewas later stabilized on her current medication list including the medications ofAbilify Maintena paxil, and Zyprexa. [place] was continued. She showed gradual improvement during hospitalization. She started to socialize more and attend more groups. She also started to increase her oral intake of food and water. She did not exhibit any major symptoms of suicidality or act on any suicidal thoughts or hospitalization. She started to become more organized and linear. She was more agreement to help and continuing medication. She was receiving some benefit from medication as well. On the day of discharge she reported thatshe is feeling better. She expressed interest in seeing her family and pets. She had arranged rides with her sister and outpatient team were going to help manage her medications. Time spent discussing smoking cessation with patient: more than 10 minutes Condition Condition at Discharge: Stable Status at Discharge Cognitive/behavioral status at discharge: Mental Status Exam: Appearance: grossly normal Mental Status: mental status grossly normal Mood: Euthymic mood Affect: Normal affect Speech and Movement: speech and movement normal and speech clear Attitude: cooperative Thought Process: normal Thought Content: Denied hallucinations, no homicidality and no suicidality Insight: Good Judgment: Good Functional status at discharge: independent ambulation Overall status at discharge: patient is back to baseline Time Spent with Patient Time spent providing/coordinating discharge services (# min): 30 Exam Physical Exam Vital Signs: Temp Pulse Resp BP Pulse Ox O2 Del Method 98 F 60 18 126/90 98 Room Air 12/18/21 07:23 12/18/21 07:23 12/18/21 07:23 12/18/21 07:23 12/18/21 07:23 12/18/21 07:23 Discharge Plan Discharge Plan Patient Disposition: Home Activity: No Activity Restriction Diet: Regular Additional Instructions: Abilify Maintena 400 mg injection given 12/17/2021. Regular diet. No activity restrictions. Instructions: Borderline Personality Disorder, [facility] [place] Instructions Stand Alone Forms: Work/School Release Form Prescriptions: New olanzapine 5 mg Tablet 5 mg PO QPM Qty: 7 0RF sulfamethoxazole-trimethoprim 800-160 mg Tablet 1 tab PO BID Qty: 2 0RF paroxetine HCl 20 mg Tablet 20 mg PO QAM Qty: 7 0RF hydroxyzine pamoate 25 mg Capsule 25 mg PO BID 7 Days Qty: 14 0RF aripiprazole 5 mg Tablet 5 mg PO DAILY Qty: 7 1RF cholecalciferol (vitamin D3) 25 mcg (1,000 unit) Tablet 25 mcg PO DAILY Qty: 7 0RF nicotine (polacrilex) [Nicorette] 4 mg gum 4 mg buccal Q6H PRN (Reason: nicotine cravings) Qty: 40 0RF Abilify Maintena 400 mg Suspension,Extended Rel Syring 400 mg IM Q28D Qty: 0 0RF Continued albuterol sulfate 90 mcg/actuation HFA aerosol inhaler 2 inh INHALATION Q4-6H PRN (Reason: shortness of breath or wheezing) Qty: 18 0RF Rx Instructions: administer with spacer omeprazole 20 mg capsule,delayed release(DR/EC) 20 mg PO DAILY lithium carbonate 450 mg Tablet Extended Release 450 mg PO QHS 7 Days Qty: 7 0RF Discontinued ziprasidone HCl [Geodon] 20 mg Capsule 20 mg PO 1700 Rx Instructions: take with meal at least 500 calories hydroxyzine pamoate 25 mg capsule 25 mg PO DAILY Label Comments: TAKE ONE CAPSULE BY MOUTH ONCE DAILY mirtazapine 15 mg tablet 7.5 mg PO HS Trintellix 5 mg tablet 5 mg PO DAILY.WITH.SUPPER [facility] [Outside] - 12/18/21 2:30 pm ( Therapy:? Friday12/19/21 @ 9AM with Odalis Nurse: Friday12/18/21 @ 2:30PM for a med set until you can see Mak on . You will see Mak for your next med set this , 12/20/21 @ 2:30PM. You will receive your next Abilify injection on Friday01/15/22 at 12:30PM. Psychiatry: Friday01/01/22 @ 10:45AM with Dr. Shah ) Documented By: Brent Simmons MD 12/18/21 1239 Signed By: <Electronically signed by Brent Simmons MD> 12/18/21 1249 [facility] Work Phone: Evaluation note* Diagnosis Onset Date Resolution Status Abuse of laxatives acute Bipolar affect, depressed ac levelock Bipolar disease, chronic acu te Borderline personality disorder acute Eating disorder chronic Lightheadedness acute Suicidal ideation acute [facility] Work Phone: Evaluation note* General: NADAppearance: appears stated age, ear length brown hair, well kempt, gaged ears, dressed in hospital attire, sitting in bedAttitude: calm, initially tearful, cooperative, engaged in conversation, splitting notedBehavior: appropriate eye contactMotor Activity: no psychomotor agitation or retardation, mild bilateral shaking in hands, NOT noted to be fine tremorsSpeech: spontaneous, normalrate, volume, childlike toneMood: extremely anxious Affect: anxiousThought Process: organized, linear, help seekingThought Content: Denies SI/HI. No delusions elicited.Thought Perception: Denies AH/VH. Does not appear to be responding to internal stimuli.Cognition: adequate attention and concentration, no gross deficitsInsight: limited insight into her diagnosis of borderline PD or the symptoms,limited insight into the affect cannabis hasJudgment: poor [facility] noteNo assessment information available [facility] Work Phone: Evaluation note* General: Pt is a 31 year old female wearing hospital attire, standing in front of telepsych monitorAppearance: Pt, who appears stated age, is average weight and height, brown hair, appropriately groomedAttitude: Pt was calm, superficially cooperativeBehavior: Fair eye contactMotor Activity: PMA, very restlessSpeech: Pt spoke softly, mumbling at times.Mood: Tired but fine Affect: Dysphor icThought Process: Organized, linear, goal directed. Associations are logical.Thought Content: Pt denied SI/HI. No delusions present.Thought Perception: Does not endorse auditory or visual hallucinations, does not appear to be responding to hallucinatory stimuli. Cognition: Alert, oriented x3. No deficits noted. Adequate fund of knowledge. No deficit in recent and remote memory. No deficits in attention, concentration or language.Insight: Poor- minimizes events from today, states she has no idea why she took the pillsJudgment: Not intact [facility]* Diagnosis Onset Date Resolution Status Bipolar affect, depressed ac levelock Major depression acute Suicidal ideation acute [facility] Work Phone: Evaluation note* Diagnosis Onset Date Resolution Status Abdominal pain acute Bipolar affect, depressed ac levelock Borderline personality disorder acute Eating disorder chronic Major depression acute Marijuana abuse acute Nausea acute Suicidal ideation acute [facility] Work Phone: Evaluation note* Diagnosis Anorexia nervosa- Primary Dietary counseling Dietary surveillance and counseling [facility] Author [facility] December 07, 2021 1:11pm Note Date/Time December 07, 2021 1:11 pm [facility] [address] [place] [address] Psychiatry H&P Signed Patient: Roshan Domínguez MR#: [id number] : 1990 Acct:[id number] Age/Sex: 31 / F Adm Date: 2 Loc: Room: [address] [place] [address] Type: ADM IN Attending Dr: Brent Simmons MD Copies to: Brent Simmons MD [facility]~ Date of Service: 12/07/2021 HPI History of Present Illness History of present illness: Ms. Domínguez is a 31 year old female who presented due to concern for depression and suicidal ideation. It was documented that she wanted to have her eating disorder kill her or overdose on her psychiatric medications. Upon exam, patient is adamant that she is not suicidal. She stated that she made statements of thinking about that in the past. She stated that she saw Dr. Valdes2 weeks ago. She makes statements about how outpatient team tells her that theycannot help her. She did report that she made phone calls to the eating disorder called [facility] to try to get an appointment. She is very frustrated about her hospitalization and seems to focus on that throughout the encounter. Psychiatric history: Endorses history of depression, anxiety, bipolar, anorexia,cutting, suicidality Family psychiatric history: Mother: Anxiety, depression, COPD Psychiatric hospitalizations: History of multiple psychiatric hospitalizations Suicide attempts: History of suicide attempts Employment: Unemployed Living situation: Lives alone Substance use: Uses marijuana Review of symptoms: Constitutional: Denies chills and Denies fever(s) Eyes: Denies change in vision ENT: Denies abnormal hearing Cardiovascular: Denies chest pain Respiratory: Denies chest congestion and Denies cough Gastrointestinal: Denies change in bowel habits Genitourinary: Denies dysuria Musculoskeletal: Denies atrophy and Denies myalgias Integumentary/Breasts: Denies dry skin Neurologic: Denies abnormal gait and Denies abnormal movements Psychiatric: Reports depression and denies current suicidal ideation but recent reports of suicidal ideation with plan Physical exam: Const: cooperative Nutritional Appearance: average body habitus Orientation: alert, awake and oriented x3 HEENT: Head normal to inspection, hearing grossly normal bilaterally, external nose normal, face symmetric Eyes: appearance normal, both eyes and all related structures, sclerae normal Neck: normal visual inspection and full ROM Resp: normal respiratory effort, able to speak in complete sentences and symmetric chest movement Cardio: regular rate GI: normal to inspection and non-distended : deferred Skin: no rashes or lesions noted Neuro: CNII: Visual stover intact, CNIII,IV,: EOM intact, no nystagmus. Pupilsequal, round, reactive to light and accommodation, CNV: Sensation intact to light touch, ? CNVII: Raises eyebrows, smile/frown, puff out cheeks symmetrically, CNVIII: Hearing intact bilaterally, CNIX,X: Voice normal, soft palate elevation normal, symmetrical, CNXI: Shoulder shrug strong, equal bilaterally, CNXII: Tongue protrusion midline, movement symmetrical. Extrem: normal to inspection and full ROM Mental Status Exam: Appearance: grossly normal Mental Status: mental status grossly normal Mood: dysthymic mood Affect: dysphoric affect Speech and Movement: speech and movement normal and speech clear Attitude: cooperative Thought Process: normal Thought Content: Denied hallucinations, no homicidality, denied suicidality, butthere are reports that patient wanted to overdose on stockpiled medications Insight: fair Judgment: fair PMFSH Vaccinated for COVID-19?: Yes Medical History (Updated 12/06/21 @ 22:01 by Artemio Roman LPN) BOUCHRA (acute kidney injury) Anorexia Anxiety Asthma Depression Eating disorder bulimia/anorexia History of kidney infection Overdose PSYCH MEDICATION OVERDOSE JULY 2019, 2 OTHER OD'S IN PAST ON PSYCH MEDICATION Pneumonia Bruno disease Surgical History History of gastrostomy as an History of neck surgery CRICOID SPLIT A BABY Family History Mother Anxiety Depression COPD (chronic obstructive pulmonary disease) Mother Myocardial infarction Social History Smoking Status: Current every day smoker Tobacco Type: e-cigarettes Substance Use Type: Marijuana Substance Abuse Comment: THC Meds Medications and Allergies Allergies Penicillins Allergy (Verified 12/06/21 16:46) Rash prochlorperazine [From Compazine] Adverse Reaction (Verified 12/06/21 16:46) Irritable Home Medications ziprasidone HCl 20 mg capsule (Geodon) 20 mg PO 1700 09/11/21 [History Confirmed 12/06/21] lithium carbonate 450 mg tablet,extended release 450 mg PO QHS 7 days #7 tabs 09/17/21 [Rx Confirmed 12/06/21] albuterol sulfate 90 mcg/actuation aerosol inhaler 2 inh inhalation Q4-6H PRN shortness of breath or wheezing #18 grams 09/27/21 [Rx Confirmed 12/06/21] hydroxyzine pamoate 25 mg capsule 25 mg PO BID 12/06/21 [History Confirmed 12/06/21] mirtazapine 15 mg tablet 7.5 mg PO HS 12/06/21 [History Confirmed 12/06/21] omeprazole 20 mg capsule,delayed release 20 mg PO DAILY 12/06/21 [History Confirmed 12/06/21] vortioxetine 5 mg tablet (Trintellix) 5 mg PO DAILY.WITH.SUPPER 12/06/21 [History Confirmed 12/06/21] Exam Physical Exam Vital Signs: Temp Pulse Resp BP Pulse Ox O2 Del Method 98 F 52 L 16 128/84 97 Room Air 12/07/21 07:30 12/07/21 07:30 12/06/21 21:48 12/07/21 07:30 12/07/21 07:30 12/07/21 07:30 Results Labs CBC & Chem 7: 12/06/21 17:30 12/06/21 17:30 Psychiatry Labs: 12/06/21 12/06/21 12/06/21 16:55 17:30 17:30 RBC 4.83 Hgb 15.4 Hct 45.3 MCV 93.8 MCH 31.8 MCHC 34.0 RDW 13.1 Plt Count 262 MPV 9.6 Sodium 139 Potassium 3.9 Chloride 106 Carbon Dioxide 21.3 L BUN 14 Creatinine 0.88 Calcium 9.6 Total Bilirubin 0.5 AST 22 ALT 21 Alkaline Phosphatase 48 Total Protein 7.2 Albumin 4.2 Urine Color Yellow Urine Appearance Clear Urine pH 6.0 Ur Specific [place] 1.030 Urine Protein Negative Urine Glucose (UA) Normal Urine Ketones Negative Urine Occult Blood 3+ H Urine Nitrite Negative Ur Leukocyte Esterase Negative Urine RBC 0-1 Urine WBC 1-2 Microbiology Microbiology: Microbiology - Results from entire visit 12/06/21 16:06 Nasal SARS Antigen (LFIA) - Final Abnormal Involuntary Movement Dental Status Are dentures usually worn?: No Assessment/Plan (1) Bipolar affect, depressed: Code(s): F31.30 - Bipolar disorder, current episode depressed, mild or moderate severity,unspecified Status: Acute (2) Eating disorder: Code(s): F50.9 - Eating disorder, unspecified Status: Acute Plan Patient presenting due to concern of depression and suicidal ideation. It was documented that she had told staff that she wanted to have her eating disorder kill her over stocking up her meds and taking them all Patient denies this on exam and is extremely frustrated about being hospitalized Will restart medications as there is questionable compliance as she stated that she was not taking them for a few days Continue to monitor mental status Encourage group participation and medication compliance Risk benefits alternatives explained Documented By: Brent Simmons MD 12/07/21 1305 Signed By: <Electronically signed by Brent Simmons MD> 12/07/21 1311 [facility] Work Phone: Hospital Discharge instructions Additional Instructions Regular Diet No Activity RestrictionsK[facility] Work Phone: Hospital Discharge instructions Additional Instructions Follow-up with your primary care doctor Return to ED F worsening symptoms or concernsK[facility] Work Phone: Hospital Discharge instructions Additional Instructions If your symptoms return/worsen or you develop any further concerns or symptoms please see your doctor or return to the emergency department immediately.[facility] Work Phone: Progress note Author [facility] December 08, 2021 10:58am Note Date/Time December 08, 2021 10:5 7am [facility] [address] [place] [address] Psychiatry Progress Note Signed Patient: Roshan Domínguez MR#: [id number] : 1990 Acct:[id number] Age/Sex: 31 / F Adm Date: 2 Loc: 1S Room: 1N4822-1 Type : ADM IN Attending Dr: Brent Simmons MD Copies to: ~ Date of Service: 12/08/2021 Subjective Subjective Narrative: Ms. Domínguez reported that she is doing all right. She reported that she was veryfrustrated about her hospitalization yesterday. She stated that her main issue is her eating disorder and she does admit to passive suicidal thoughts due to her eating disorder. She was not compliant with her medicine as she was not eating and did not feel like she wanted to take the medication on an empty stomach. She stated that she woke up a few times during the night because she was a light sleeper. She reported that she does think that medication helps buthas issues with compliance at home. Mental Status Exam: Appearance: grossly normal Mental Status: mental status grossly normal Mood: dysthymic mood Affect: dysphoric affect Speech and Movement: speech and movement normal and speech clear Attitude: cooperative Thought Process: normal Thought Content: Denied hallucinations, no homicidality, does report passive SI prior to hospitalization Insight: fair Judgment: fair Exam Physical Exam Vital Signs: Temp Pulse Resp BP Pulse Ox O2 Del Method 98.0 F 55 L 16 138/77 97 Room Air 12/08/21 07:30 12/08/21 07:30 12/08/21 07:30 12/08/21 07:30 12/08/21 07:30 12/08/21 07:30 Abnormal Involuntary Movement Dental Status Are dentures usually worn?: No Assessment/Plan Assessment/Plan (1) Bipolar affect, depressed: Code(s): F31.30 - Bipolar disorder, current episode depressed, mild or moderate severity,unspecified Status: Acute (2) Eating disorder: Code(s): F50.9 - Eating disorder, unspecified Status: Acute Plan Also did report some medication noncompliance. Continue lithium and Trintellix. We will stop Geodon and switch to Abilify withplan on using long-acting injectable Continue to monitor mental status Encourage group participation and medication compliance Risk benefits alternatives explained Documented By: Brent Simmons MD 12/08/21 1055 Signed By: <Electronically signed by Brent Simmons MD> 12/08/21 1058 [facility] Work Phone: Progress note Author Brent [facility] December 09, 2021 12:28pm Note Date/Time December 09, 2021 12:2 8pm [facility] [address] [place] [address] Psychiatry Progress Note Signed Patient: Roshan Domínguez MR#: [id number] : 1990 Acct:[id number] Age/Sex: 31 / F Adm Date: 2 Loc: Room: [address] [place] [address] Type : ADM IN Attending Dr: Brent Simmons MD Copies to: ~ Date of Service: 12/09/2021 Subjective Subjective Narrative: Ms. Domínguez reported that she was extremely nauseous and was vomiting overnight. She stated that she has still not been eating and did not express any interest in using any nutritional supplements. She is tolerating Abilify. Mental Status Exam: Appearance: grossly normal Mental Status: mental status grossly normal Mood: dysthymic mood Affect: dysphoric affect Speech and Movement: speech and movement normal and speech clear Attitude: cooperative Thought Process: normal Thought Content: Denied hallucinations, no homicidality, passive suicidal thoughts Insight: fair Judgment: fair Exam Physical Exam Vital Signs: Temp Pulse Resp BP Pulse Ox O2 Del Method 98.1 F 107 H 18 131/77 95 Room Air 12/09/21 07:30 12/09/21 07:30 12/09/21 07:30 12/09/21 07:30 12/09/21 07:30 12/09/21 07:30 Objective Labs Labs: Abnormal Labs 12/08/21 20:54 POC Glucose 57 L* Abnormal Involuntary Movement Dental Status Are dentures usually worn?: No Assessment/Plan Assessment/Plan (1) Bipolar affect, depressed: Code(s): F31.30 - Bipolar disorder, current episode depressed, mild or moderate severity,unspecified Status: Acute (2) Eating disorder: Code(s): F50.9 - Eating disorder, unspecified Status: Acute Plan Patient has not been eating and blood sugar was in the low 50s yesterday We will check BMP and CBC Continue lithium and Trintellix. Continue Abilify and will dose Abilify Maintena on 12/10/2020 Continue to monitor mental status Encourage group participation and medication compliance Risk benefits alternatives explained Documented By: Brent Simmons MD 12/09/21 1227 Signed By: <Electronically signed by Brent Simmons MD> 12/09/21 3276 [facility] Work Phone: Progress note Author Phillip [facility] December 10, 2021 12:53pm Note Date/Time December 10, 2021 10: 08am [facility] [address] [place] [address] Psychiatry Progress Note Signed Patient: Roshan Domínguez MR#: [id number] : 1990 Acct:[id number] Age/Sex: 31 / F Adm Date: 2 Loc: Room: [address] [place] [address] Type : ADM IN Attending Dr: Brent Simmons MD Copies to: ~ Date of Service: 12/10/2021 Subjective Subjective Narrative: Interval history: Patient is tearful on exam, does not feel like she is doing any better. She has not been able to eat or drink. She attempted to eat a small piece of a mynor cracker and vomited within 15 minutes of eating it. Patient was personally seen by me on the day of the encounter.? I reviewed the history and performed the bartlett elements of the assessment.? I formulated the planof care and confirmed this with the Resident as noted below Her mood is depressed because she hates feeling this way. She admits to lightheadedness and dizziness as a result of not eating. She denies SI/HI. She has talked to her sister who is her support system but has not seen her much recently. Mental Status Exam: Appearance: grossly normal Mental Status: mental status grossly normal Mood: dysthymic mood Affect: dysphoric affect Speech and Movement: speech and movement normal and speech clear Attitude: cooperative Thought Process: normal Thought Content: denied hallucinations, no homicidality, no suicidal thoughts Insight: fair Judgment: fair Exam Physical Exam Vital Signs: Temp Pulse Resp BP Pulse Ox O2 Del Method 98.3 F 76 16 131/80 96 Room Air 12/10/21 07:30 12/10/21 07:30 12/10/21 07:30 12/10/21 07:30 12/10/21 07:30 12/10/21 09:00 Objective Labs Labs: Abnormal Labs 12/09/21 13:54 Carbon Dioxide 16.9 L Glucose 68 L Abnormal Involuntary Movement Dental Status Are dentures usually worn?: No Assessment/Plan Assessment/Plan (1) Bipolar affect, depressed: Code(s): F31.30 - Bipolar disorder, current episode depressed, mild or moderate severity,unspecified Status: Acute (2) Eating disorder: Code(s): F50.9 - Eating disorder, unspecified Status: Acute Plan Patient has not been eating and blood sugar was in the low 50s yesterday CBC wnl Obtain lithium level in the am CMP wnl aside from hypoglycemia, 6 (improving from prior POC which was 57), continue to monitor and encourage intake, supplementation Lipid panel - TC 173, LDL 109 Vitamin D deficient at 20.3, consider supplementation when pt is taking PO Continue lithium and Trintellix. Continue Abilify and will dose Abilify Maintena on 12/10/2020 Continue to monitor mental status Continue to encourage group participation and medication compliance Documented By: Zulema Dubose DO, LUPILLO 12/10/21 1 005 Signed By: <Electronically signed by DO LUPILLO Dubose> 12/10/21 1027 <Electronically signed by Phillip Davis MD> 12/10/21 1251 [facility] Work Phone: Progress note Author [facility] December 11, 2021 9:03am Note Date/Time December 11, 2021 7:2 2am [facility] [address] [place] [address] Psychiatry Progress Note Signed Patient: Roshan Domínguez MR#: [id number] : 1990 Acct:[id number] Age/Sex: 31 / F Adm Date: 2 Loc: Room: 7P4606-0 Type : ADM IN Attending Dr: Brent Simmons MD Copies to: ~ Date of Service: 12/11/2021 Subjective Subjective Narrative: Interval history: Patient did have a few sips of water yesterday, had two bites of yogurt. One episode of vomiting stomach bile this AM. Still feeling nauseous,lightheaded, weak. Patient was personally seen by me on the day of the encounter.? I reviewed the history and performed the bartlett elements of the assessment.? I formulated the planof care and confirmed this with the Resident as noted below Patient reported that she still feeling hopeless. She does not feel that currentmed regimen is working. Of note, zofran does work for her but the taste makes her nauseous. Patient does admit to feeling slightly better but only after much prompting and acknowledging that she has eaten a few bites in the last 24 hours.I am worried about her continous restrictive behavior. Mental Status Exam: Appearance: grossly normal Mental Status: mental status grossly normal Mood: dysthymic mood Affect: dysphoric affect Speech and Movement: speech and movement normal and speech clear Attitude: cooperative Thought Process: normal Thought Content: denied hallucinations, no homicidality, intermittent suicidal thoughts Insight: fair Judgment: fair Exam Physical Exam Vital Signs: Temp Pulse Resp BP Pulse Ox O2 Del Method 98.1 F 56 L 16 116/76 100 Room Air 12/10/21 20:00 12/10/21 20:10 12/10/21 20:10 12/10/21 20:10 12/10/21 20:10 12/10/21 20:10 Objective Labs Labs: Abnormal Labs 12/10/21 12/10/21 12/10/21 18:40 19:24 19:24 Carbon Dioxide 15.2 L Creatinine 1.04 H Urine Color Dark yellow A Urine Protein 30 H Urine Ketones 4+ H Urine Bilirubin 2+ H Urine WBC 5-9 H Ur Squamous Epith Cells 5-9 H Urine Bacteria 1+ H [place] 0.36 L Abnormal Involuntary Movement Dental Status Are dentures usually worn?: No Assessment/Plan Assessment/Plan (1) Bipolar affect, depressed: Code(s): F31.30 - Bipolar disorder, current episode depressed, mild or moderate severity,unspecified Status: Acute (2) Eating disorder: Code(s): F50.9 - Eating disorder, unspecified Status: Acute Plan Patient has not been eating and blood sugar was in the low 50s yesterday CMP elevated Cr 1.04, continue to encourage sips. Talked about the need for IV hydration if kidneys continue to be damaged - pt has needed IV hydration in the past for BOUCHRA UA 30mg protein, 4+ ketones, 2+ bilirubin, 5-9 WBC, 5-9 squams, 1+ bacteria withfine and course granular casts CBC wnl 12/09 POC glucose 80 (improving from prior POC which was 57), continue to monitor and encourage intake, supplementation Lipid panel - TC 173, LDL 109 Vitamin D deficient at 20.3, consider supplementation when pt is taking PO Continue lithium, Remeron and Abilify Switch Trintelix to Paxil Continue to monitor mental status Continue to encourage group participation and medication compliance Documented By: Zulema Dubose DO, RES 12/11/21 0 719 Signed By: <Electronically signed by RES Zulema Dubose> 12/11/21 0750 <Electronically signed by Phillip Davis MD> 12/11/21 0903 [facility] Work Phone: Progress note Author [facility] December 12, 2021 12:36pm Note Date/Time December 12, 2021 12: 36pm [facility] [address] [place] [address] Psychiatry Progress Note Signed Patient: Roshan Domínguez MR#: [id number] : 1990 Acct:[id number] Age/Sex: 31 / F Adm Date: 2 Loc: Room: [id number] Type : ADM IN Attending Dr: Brent Simmons MD Copies to: ~ Date of Service: 12/12/2021 Subjective Subjective Narrative: CC: My brain is telling me not to eat HPI:for the past 2 weeks, Roshan has been having decreased appetite. She reportshaving nausea and bilious vomiting after eating something as small as her fingernail. She also is unable to drink as she is full after having a sip of water. Patient was personally seen by me on the day of the encounter. I reviewed the history and performed the bartlett elements of the assessment. I formulated the planof care and confirmed this with the medical student as noted below Patient reports that no one cares about her. Her mood is frustrated .She feels slightly lightheaded adn weakness in extremities. She has not been eating at alland shows some attention seeking behvaiors. She rates her anxiety as 2/10 and depression 7/10, currently. She has fleeting/transient SI and denied HI. She denies alcohol, admits to vaping and marijuana. Disucssed adding Zyprexa 2.5 mg PO QHS. Psychiatric Medical Hx: Anorexia/Bulimia, suicide attempt by OD in August 2021, Anxiety, MDD Family Hx: anxiety/depression Psychosocial:diet severely decreased eating, support system roommate, but they argue a lot, works two jobs at [employer] and in the [employer] industry Mental Status Exam Appearance: grossly normal Mental Status: mental status grossly normal Mood: dysthymic mood Affect: dysphoric/frustrated affect I feel like I'm not being heard Speech and Movement: speech and movement normal and speech clear Attitude: cooperative Thought Process: normal Thought Content: admits suicidal thoughts, denied hallucinations, no homicidality Insight: fair Judgment: fair Exam Physical Exam Vital Signs: Temp Pulse Resp BP Pulse Ox O2 Del Method 98.5 F 80 17 141/97 H 98 Room Air 12/12/21 07:30 12/12/21 07:30 12/12/21 07:30 12/12/21 07:30 12/12/21 07:30 12/12/21 07:30 Const General: cooperative and no acute distress Eyes General: appearance normal, both eyes and all related structures Visual Stover: normal visual stover by confrontation Pupils: PERRL Resp Effort & Inspection: normal respiratory effort Auscultation: clear to auscultation bilaterally Cardio Jugular venous pressure: no JVD Rate: regular rate Rhythm: regular rhythm Heart Sounds: S1 normal and S2 normal GI Inspection: normal to inspection Palpation: soft and hepatomegaly (possible) General: No bimanual renal exam normal bilaterally (painful /tenderness b/l moreon the left side) Abnormal Involuntary Movement Dental Status Are dentures usually worn?: No Assessment/Plan Assessment/Plan (1) Bipolar affect, depressed: Code(s): F31.30 - Bipolar disorder, current episode depressed, mild or moderate severity,unspecified Status: Acute (2) Eating disorder: Code(s): F50.9 - Eating disorder, unspecified Status: Acute Plan 31 y/o female with PMHx of MDD,anxiety anorexia/bulimia, BPD and previous SI presents to with SI: 1. Suicidal Ideation with a previous Suicide attempt 2. possible Borderline personality d/o 3. lithium induced N/V 4. eating d/o a. Switch mirtazapine to Olanzapine 2.5 mg PO QHS 5. Monitor CMP 6. depressed vitamin D a. possibly adding Vitamin D Documented By: Phillip Davis MD 2 1006 Signed By: <Electronically signed by Phillip Davis MD> 12/12/21 1236 [facility] Work Phone: Progress note Author [facility] December 13, 2021 8:52am Note Date/Time December 13, 2021 7:1 3am [facility] [address] [place] [address] Psychiatry Progress Note Signed Patient: Roshan Domínguez MR#: [id number] : 1990 Acct:[id number] Age/Sex: 31 / F Adm Date: 2 Loc: Room: [address] [place] [address] Type : ADM IN Attending Dr: Brent Simmons MD Copies to: ~ Date of Service: 12/13/2021 Subjective Subjective Narrative: Interval history: patient still feels defeated, rates depression 6/10 today and anxiety 4/10. She states this is improved from yesterday as she was a 7/10 for depression. She does endorse fleeting suicidal ideations. We did talk about the fact that she did not vomit after eating yogurt the other day, so I encouraged her to continue trying with different foods. She does state that a big issue with her not eating much still is that she does not like eating with the group. Patient was personally seen by me on the day of the encounter. I reviewed the history and performed the bartlett elements of the assessment. I formulated the planof care and confirmed this with the Resident as noted below Patient presenting with symptoms of borderline personality disorder. I providedher education about her symptoms. She reports feels abandonment, emotional dysregulation and difficulty controlling her impulses. She thinks people will reporting specialist her. She states lunch is around 1130 I asked her if she would be comfortable with any of the nurses sitting with her for lunch and she said maybe. She does state that she talk to her sister yesterday and she was supposed to visit but not an upcoming so she was a bit disappointed about that. She is not having any issues with the medication aside from the Paxil making janet little bit sleepy. Another thing she noted was that her blood pressure was elevated at 165/103 this morning; she does have frequent elevations in blood pressure, so we will continue to keep an eye on that. Mental Status Exam: Appearance: grossly normal Mental Status: mental status grossly normal Mood: dysthymic mood Affect: dysphoric affect Speech and Movement: speech and movement normal and speech clear Attitude: cooperative Thought Process: normal Thought Content: denied hallucinations, no homicidality, fleeting SI Insight: fair Judgment: fair Exam Physical Exam Vital Signs: Temp Pulse Resp BP Pulse Ox O2 Del Method 98.4 F 72 18 129/87 96 Room Air 12/12/21 19:56 12/12/21 19:56 12/12/21 19:56 12/12/21 19:56 12/12/21 19:56 12/12/21 19:56 Abnormal Involuntary Movement Dental Status Are dentures usually worn?: No Assessment/Plan Assessment/Plan (1) Bipolar affect, depressed: Code(s): F31.30 - Bipolar disorder, current episode depressed, mild or moderate severity,unspecified Status: Acute (2) Eating disorder: Code(s): F50.9 - Eating disorder, unspecified Status: Acute Plan Pt improved wth depression today, continue to encourage PO intake No POC glucose since 12/10 80 Vitamin D deficient at 20.3, supplementation added Continue lithium, Paxil, Abilify and increase Zyprexa to 5 mg p.o. nightly Encourage eating with a russ [place] at therapeutic level as of 12/11 Continue to monitor mental status Continue to encourage group participation and medication compliance Documented By: Zulema Dubose DO, RES 12/13/21 0 711 Signed By: <Electronically signed by DO LUPILLO Dubose> 12/13/21 0809 <Electronically signed by Phillip Davis MD> 12/13/21 0852 [facility] Work Phone: Progress note Author Phillip [facility] December 14, 2021 10:00am Note Date/Time December 14, 2021 7:1 9am [facility] [address] [place] [address] Psychiatry Progress Note Signed Patient: Roshan Domínguez MR#: [id number] : 1990 Acct:[id number] Age/Sex: 31 / F Adm Date: 2 Loc: Room: [address] [place] [address] Type : ADM IN Attending Dr: Brent Simmons MD Copies to: ~ Date of Service: 12/14/2021 Subjective Subjective Narrative: Interval history: Patient did try eating applesauce yesterday which made her vomit. The therapist did sit with her while she tried to eat lunch yesterday but did not make any difference. She is only taking sips with meds no other water intake. She does note after the Zyprexa last night she slept through the whole night with no issues so she feels like that is an improvement because she was waking up at 3 AM consistently prior to that. Patient was personally seen by me on the day of the encounter. I reviewed the history and performed the bartlett elements of the assessment. I formulated the planof care and confirmed this with the Resident as noted below Patient states that she needs more done. She is frustrated that nobody is listening to her in terms of her labs being off because of her dehydration and lack of p.o. intake, so she would like her labs rechecked. She is also frustrated that when she feels like she is going to pass out she sits on the floor and staff yells at her. She does note she talked to her sister yesterday but unsure when she will visit. She rates her depression 6 out of 10 and anxiety 7 out of 10 with fleeting suicidal ideations unchanged from yesterday. Mental Status Exam: Appearance: grossly normal Mental Status: mental status grossly normal Mood: dysthymic mood Affect: dysphoric affect Speech and Movement: speech and movement normal and speech clear Attitude: cooperative Thought Process: normal Thought Content: denied hallucinations, no homicidality, fleeting SI Insight: fair Judgment: fair Exam Physical Exam Vital Signs: Temp Pulse Resp BP Pulse Ox O2 Del Method 98.3 F 70 16 132/97 96 Room Air 12/13/21 20:09 12/13/21 20:09 12/13/21 20:09 12/13/21 20:09 12/13/21 20:09 12/13/21 20:09 Abnormal Involuntary Movement Dental Status Are dentures usually worn?: No Assessment/Plan Assessment/Plan (1) Eating disorder: Code(s): F50.9 - Eating disorder, unspecified Status: Acute (2) Borderline personality disorder: Code(s): F60.3 - Borderline personality disorder Status: Acute Plan Pt presenting with symptoms consistent with borderline personality disorder. She reports improved with sleep today, continue to encourage PO intake Last POC glucose 72 Vitamin D deficient at 20.3, supplementation added Continue lithium, Paxil, Abilify, and Zyprexa to 5 mg p.o. nightly Encourage eating with a russ [place] at therapeutic level as of 12/11 Continue to monitor mental status Continue to encourage group participation and medication compliance Documented By: Zulema Dubose DO, RES 12/14/21 0 718 Signed By: <Electronically signed by DO LUPILLO Dubose> 12/14/21 0737 <Electronically signed by Phillip Davis MD> 12/14/21 1000 [facility] Work Phone: Progress note Author Phillip [facility] December 15, 2021 9:19am Note Date/Time December 15, 2021 6:5 4am [facility] [address] [place] [address] Psychiatry Progress Note Signed Patient: Roshan Domínguez MR#: [id number] : 1990 Acct:[id number] Age/Sex: 31 / F Adm Date: 2 Loc: Room: [address] [place] [address] Type : ADM IN Attending Dr: Brent Simmons MD Copies to: ~ Date of Service: 12/15/2021 Subjective Subjective Narrative: Interval history: feels like she is doing much better, her sister visited yesterday which resulted in marked improvement in mood. She feels motivated to eat as now her sister is her medical POA and she does not want a feeding tube. She rates her depression a 4/10 and anxiety a 6/10. Patient was personally seen by me on the day of the encounter. I reviewed the history and performed the bartlett elements of the assessment. I formulated the planof care and confirmed this with the Resident as noted below Patient stated that she had snack last night. Therapies are helping her to cope. She reports no issues with meds. Still having the fleeting SI but frequency and level of detail are decreasing. Did eat yogurt and 1/2 banana yesterday with no issues. Does note kidneys have been hurting. She said her SI is decreasing. Mental Status Exam: Appearance: grossly normal Mental Status: mental status grossly normal Mood: dysthymic mood Affect: dysphoric affect Speech and Movement: speech and movement normal and speech clear Attitude: cooperative Thought Process: normal Thought Content: denied hallucinations, no homicidality, fleeting SI Insight: fair Judgment: fair Exam Physical Exam Vital Signs: Temp Pulse Resp BP Pulse Ox O2 Del Method 98.1 F 70 18 129/84 96 Room Air 12/14/21 22:18 12/14/21 22:18 12/14/21 22:18 12/14/21 22:18 12/14/21 22:18 12/14/21 22:18 Objective Labs Labs: Abnormal Labs 12/14/21 12/15/21 10:00 05:49 Eos # (Auto) 0.8 H Urine Color [place] A Urine Appearance Turbid A Ur Specific [place] 1.035 H Urine Protein 100 H Urine Ketones 4+ H Urine Bilirubin 2+ H Ur Leukocyte Esterase 1+ H Urine WBC 5-9 H Ur Squamous Epith Cells 20-30 H Urine Bacteria 2+ H Abnormal Involuntary Movement Dental Status Are dentures usually worn?: No Assessment/Plan Assessment/Plan (1) Eating disorder: Code(s): F50.9 - Eating disorder, unspecified Status: Acute (2) Borderline personality disorder: Code(s): F60.3 - Borderline personality disorder Status: Acute Plan Pt presenting with symptoms consistent with borderline personality disorder She reports improved mood and PO intake Last POC glucose 72 Potassium 3.1, will need supplementation if PO intake not improved UA protein 100, 4+ ketones, 2+ bili, 1+ leuk, 5-9 WBCs, 20-30 squams, 2+ bacteria, plan to treat empirically until cultures come back as pt reports kidneys have been hurting but no other urinary symptoms Vitamin D deficient at 20.3, supplementation added Continue lithium, Paxil, Abilify, and Zyprexa to 5 mg p.o. nightly Encourage eating with a russ [place] at therapeutic level as of 12/11 Continue to monitor mental status Continue to encourage group participation and medication compliance Documented By: Zulema Dubose DO, RES 12/15/21 0 653 Signed By: <Electronically signed by DO LUPILLO Dubose> 12/15/21 0755 <Electronically signed by Phillip Davis MD> 12/15/21 0919 [facility] Work Phone: Progress note Author Phillip [facility] December 16, 2021 8:50am Note Date/Time December 16, 2021 8:4 8am [facility] [address] [place] [address] Psychiatry Progress Note Signed Patient: Roshan Domínguez MR#: [id number] : 1990 Acct:[id number] Age/Sex: 31 / F Adm Date: 2 Loc: Room: [address] [place] [address] Type : ADM IN Attending Dr: Brent Simmons MD Copies to: ~ Date of Service: 12/16/2021 Subjective Subjective Narrative: Roshan reports she is feeling better and starting to eat. She reports reductionof her suicidal thoughts. Therapies are helping her to cope. She reports no issues with meds. She has a telehealth appointment with an eating program on Friday and wants to be discharged before that day to attend the point. Her first urine culture shows contamination and have ordered another repeat UA. Shestated her sister is her medical power of catering director and she is worried that she will be forced to eat if she does not become cooperative. Mental Status Exam: Appearance: grossly normal Mental Status: mental status grossly normal Mood: dysthymic mood Affect: dysphoric affect Speech and Movement: speech and movement normal and speech clear Attitude: cooperative Thought Process: normal Thought Content: denied hallucinations, no homicidality, fleeting SI Insight: fair Judgment: fair Exam Physical Exam Vital Signs: Temp Pulse Resp BP Pulse Ox O2 Del Method 98.5 F 81 16 123/93 97 Room Air 12/16/21 07:30 12/16/21 07:30 12/15/21 19:38 12/16/21 07:30 12/16/21 07:30 12/16/21 07:30 Objective Labs Labs: Abnormal Labs 12/16/21 06:00 Urine Ketones Trace H Ur Leukocyte Esterase 3+ H Urine WBC 10-19 H Ur Squamous Epith Cells 10-19 H Urine Bacteria 2+ H Abnormal Involuntary Movement Dental Status Are dentures usually worn?: No Assessment/Plan Assessment/Plan (1) Eating disorder: Code(s): F50.9 - Eating disorder, unspecified Status: Acute (2) Borderline personality disorder: Code(s): F60.3 - Borderline personality disorder Status: Acute Plan Pt presenting with symptoms consistent with borderline personality disorder May benefit from a long-acting injectable and I discussed that this could be arranged prior to her discharge She reports improved mood and PO intake. Increase Paxil to 20 mg p.o. daily to help with depression Vitamin D deficient at 20.3, supplementation added Continue lithium, Paxil, Abilify, and Zyprexa to 5 mg p.o. nightly Encourage eating with a russ [place] at therapeutic level as of 12/11 Continue to monitor mental status Continue to encourage group participation and medication compliance Documented By: Phillip Davis MD 2 0847 Signed By: <Electronically signed by Phillip Davis MD> 12/16/21 0850 [facility] Work Phone: Progress note Author Brent Simmons [facility] December 17, 2021 12:13pm Note Date/Time December 17, 2021 8:4 8am [facility] [address] [place] [address] Psychiatry Progress Note Signed Patient: Roshan Domínguez MR#: [id number] : 1990 Acct:[id number] Age/Sex: 31 / F Adm Date: 2 Loc: 1S Room: [id number] Type : ADM IN Attending Dr: Brent Simmons MD Copies to: ~ Date of Service: 12/17/2021 Subjective Subjective Narrative: Interval history: Patient's mood is markedly improved from yesterday. She is feeling good and is very hopeful about getting discharge in the next few days. She does endorse that yesterday she had headache back pain and tunnel feeling which is gone today. She did eat lunch yesterday which consisted of sandwich and apple. Did eat dinner yesterday as well which consisted of apple grilled chicken sandwich. She did feel guilty after but no issues with vomiting or nausea. She is having no issues with her Paxil being increased either. She talked with her sister today who will be picking her up and taking her to get her truck. She did mention that she has appointments on Friday with therapy and treatment center on Friday in addition to an appointment with Alyssa on Friday. Mental Status Exam: Appearance: grossly normal Mental Status: mental status grossly normal Mood: Improving mood Affect: Improving affect Speech and Movement: speech and movement normal and speech clear Attitude: cooperative Thought Process: normal Thought Content: denied hallucinations, no homicidality, fleeting SI?decrease infrequency Insight: Improved, fair Judgment: Improved, fair Patient was personally seen by me on the day of the encounter. I reviewed the history and performed the bartlett elements of the physical examination. I formulated the plan of care and confirmed this with the resident as noted below. Exam Physical Exam Vital Signs: Temp Pulse Resp BP Pulse Ox O2 Del Method 98.1 F 72 16 128/83 95 Room Air 12/16/21 20:24 12/16/21 20:24 12/16/21 20:24 12/16/21 20:24 12/16/21 20:24 12/16/21 20:24 Abnormal Involuntary Movement Dental Status Are dentures usually worn?: No Assessment/Plan Assessment/Plan (1) Eating disorder: Code(s): F50.9 - Eating disorder, unspecified Status: Acute (2) Borderline personality disorder: Code(s): F60.3 - Borderline personality disorder Status: Acute Plan Pt presenting with symptoms consistent with borderline personality disorder, improved mood today Anticipate discharge tomorrow Will give Abilify Maintena today on 12/17/2021 She reports improved mood and PO intake. Increased Paxil to 20 mg p.o. daily tohelp with depression Vitamin D deficient at 20.3, supplementation added Continue lithium, Paxil, Abilify, and Zyprexa to 5 mg p.o. nightly Encourage eating with a russ [place] at therapeutic level as of 12/11 Awaiting repeat urine culture as other specimen was contaminated, continue bactrim for now Continue to monitor mental status Continue to encourage group participation and medication compliance Documented By: Zulema Dubose DO, LUPILLO 12/17/21 0 847 Signed By: <Electronically signed by DO LUPILLO Dubose> 12/17/21 0931 <Electronically signed by Brent Simmons MD> 12/17/21 1213 [facility] Work Phone: Summary Purpose Family History No Family History Records Found Relationship Condition Age at Onset Recorded Date/T sharonda Not Specified Anxiety Unknown Depression Unknown Chronic obstructive pulmonary disease Unk nown Not Specified Myocardial infarction Unknown Advance Directives No Advanced Directives Records Found Advance Directive Response Recorded Date/ Time Advance Directives No May 14, 2017 4:00pm Advance Directive Response Recorded Date/ Time Advance Directives No May 14, 2017 3:00pm Chief Complaint and Reason for Visit Chief Complaint F33.2 F31.30 weakness F50.02 SUICICAL Reason for Visit Abuse of laxatives Bipolar affect, depressed Bipolar disease, chronic Borderline personality disorder Eating disorder Lightheadedness Suicidal ideation Chief Complaint F33.2 F31.30 weakness F50.02 SUICICAL Palpitations Reason for Visit Abuse of laxatives Bipolar affect, depressed Bipolar disease, chronic Borderline personality disorder Eating disorder Lightheadedness Suicidal ideation Chief Complaint Palpitations MHP Chief Complaint trouble breathing Chief Complaint trouble breathing mental eval Reason for Visit Bipolar affect, depr essed Major depression Suicidal ideation Chief Complaint mental eval Reason for Visit Abdominal pain Bipolar affect, depressed Borderline personality disorder Eating disorder Major depression Marijuana abuse Nausea Suicidal ideation Chief Complaint diarrhea suicidal Chief Complaint diarrhea suicidal mhp Chief Complaint diarrhea suicidal mhp f50.02 Chief Complaint diarrhea suicidal mhp f50.02 chest pain blurry vision dizzy vomiting f50.00 Chief Complaint suicidal bh mhp f50.02 chest pain blurry vision dizzy vomiting f50.00 Anorexia nervosa Additional Source Comments INFORMATION SOURCE (unrecogn ized section and content) DATE CREATED AUTHOR 01/04/2022 [facility] DATE CREATED AUTHOR AUTHOR'S ORGANIZ ATION 03/04/2022 [facility] DATE CREATED AUTHOR AUTHOR'S ORGANIZ ATION 06/21/2022 [facility] DATE CREATED AUTHOR AUTHOR'S ORGANIZ ATION 07/29/2022 [facility] DATE CREATED AUTHOR AUTHOR'S ORGANIZ ATION 06/06/2023 [facility] DATE CREATED AUTHOR AUTHOR'S ORGANIZ ATION 07/30/2023 [facility] Care Teams (unrecognized sec tion and content) Team Status: Active Member Role Status Dates Rachel Armstrong STREET LIGHT INSPECTOR-C Primary Care Provider Acti ve Team Status: Inactive Member Role Status Dates Services [facility] Primary Care Provider Active Katerina Cosme , MANAGER BAR-BC Emergency Provider Active Team Status: Active Member Role Status Dates Bogdan Barnes MD Emergency Provider Active Rachel Armstrong STREET LIGHT INSPECTOR-C Primary Care Provider Acti ve Brent Simmons MD Admit Provider, Attending Provider Active Team Status: Inactive Member Role Status Dates CRISTOFER Martin-C Emergency Provider Active Services [facility] Primary Care Provider Active Brent Simmons MD Admit Provider, Attending Provider Active Brianna Sena , RN Other Provider Active Radha Delgadillo , RN Other Provider Active Nithya Rodriguez , RN Other Provider Active Timoteo Sen , RN Other Provider Active Flores Ramos , CONCHA Other Provider Active Ada Alejandro , RN Other Provider Active Donald Jc MD Other Provider Active Antonio Santiago MD Other Provider Active Beatriz Craig APRN Other Provider Active Feliciano Mejia DO Other Provider Active Joshua Galindo MD Other Provider Active Jovanny Hurley DO Other Provider Active Santiago Jameson MD Other Provider Active Maria Elena Francis MD Other Provider Active Francheska Kelly , ANP-BC Other Provider Active Durga Giron MD Other Provider Active Augie Marks MD Other Provider Active Lucie Paredes MD Other Provider Active Saniya Dobbs MD Other Provider Active Erin Mendiola MD Other Provider Active Kwan Avilez MD Other Provider Active Wenceslao Parada MD Other Provider Active Jenifer Jones , STREET LIGHT INSPECTOR-C Other Provider Active Romeo Steinberg MD Other Provider Active Arthur Yadav MD Other Provider Active Coretta Villegas MD Other Provider Active Ravindra Davila MD Other Provider Active Marium Duncan , DO Other Provider Active Ángel Barahona MD Other Provider Active Sourav Larson , DO Other Provider Active Nishi Arthur APRN Other Provider Active Phani Rick , DO Other Provider Active Billy Medina MD Other Provider Active Evelyn Hess , CONCHA Other Provider Active Team Status: Inactive Member Role Status [facility] Primary Care Provider Active Kary Ding DO Attending Provider Active Sivakumar Sheridan , DO RES Referring Provider Active Team Status: Inactive Member Role Status [facility] Primary Care Provider Active Kary Lux , DO Emergency Provider Active Team Status: Inactive Member Role Status [facility] Primary Care Provider Active Yonathan Davis MD Attending Provider Active Team Status: Active Member Role Status [facility] Primary Care Provider Active Team Status: Inactive Member Role Status [facility] Primary Care Provider Active Linda Grewal APRN STREET LIGHT INSPECTOR-C Attending Provider Active Anny Marin , DO RES Referring Provider Active Team Status: Inactive Member Role Status [facility] Primary Care Provider Active Bogdan Barnes MD Emergency Provider Active Lithographic Photographer Relationship Specialty Start Date End Date Hayder Mei PCP - General Family Medicine 04/28/17 Team Status: Inactive Member Role Status Dates Bogdan Barnes MD Emergency Provider Active Rachel Armstrong , STREET LIGHT INSPECTOR-C Primary Care Provider Kate Simmons MD Admit Provider, Attending Provider Active Trace Burton MD Other Provider Active Rodger Anaya , DO Other Provider Active López Aranda MD Other Provider Active Brenda Cervantes MD Other Provider Active Diane Armendariz MD Other Provider Active Cecilia Galo MD Other Provider Active Deric Roblero , TECHNICAL SOLUTIONS ENGINEER Other Provider Active Harvey Varghese MD Other Provider Active Andrea Lomas MD Other Provider Active Lithographic Photographer Relationship Specialty Start Date End Date Hayder Mei PCP - General Family Medicine 04/28/17 Sivakumar Sheridan DO [address] [place] [id number] Referring Family Medicine 10/21/22 Team Status: Inactive Member Role Status Dates Rachel Armstrong , STREET LIGHT INSPECTOR-C Primary Care Provider Acti ve Erin Langston Jr, MD Emergency Provider Active Team Status: Inactive Member Role Status Dates Rachel Armstrong , STREET LIGHT INSPECTOR-C Primary Care Provider Acti ve Estuardo Hardin , DO Emergency Provider Active Team Status: Active Member Role Status Dates PHYSICIAN NO FAMILY Primary Care Provider Active Team Status: Inactive Member Role Status Dates Ismael Calderon , DO Emergency Provider Active PHYSICIAN NO FAMILY Primary Care Provider Active Team Status: Inactive Member Role Status Dates Ismael Calderon , Emergency Provider Active Rachel Armstrong , STREET LIGHT INSPECTOR-C Primary Care Provider Acti ve Team Status: Inactive Member Role Status Dates Services [facility] Primary Care Provider Active Anny Marin , DO RES Attending Provider Active Johnny Dawkins , Referring Provider Active Team Status: Inactive Member Role Status Dates Services [facility] Primary Care Provider Active Anny Marin , DO RES Attending Provider Active Kary Ding , DO Referring Provider Active Team Status: Inactive Member Role Status Dates Services [facility] Primary Care Provider Active Estuardo Hardin , DO Emergency Provider Active Team Status: Inactive Member Role Status Dates Rachel Armstrong , STREET LIGHT INSPECTOR-C Primary Care Provider Acti ve Start: March 11, 2023 End: March 11, 2023 Estuardo Hardin DO Emergency Provider Active Sta rt: March 11, 2023 End: March 11, 2023 Team Status: Active Member Role Status Dates Rachel Armstrong , STREET LIGHT INSPECTOR-C Primary Care Provider Acti ve Start: March 11, 2023 Phillip Davis MD Attending Provider Active Start: March 11, 2023 Team Status: Inactive Member Role Status Dates Ismael Calderon DO Emergency Provider Active Start: March 13, 2023 End: March 13, 2023 Rachel Armstrong , STREET LIGHT INSPECTOR-C Primary Care Provider Acti ve Start: March 13, 2023 End: March 13, 2023 Team Status: Inactive Member Role Status Dates Services [facility] Primary Care Provider Active Start: March 20, 2023 End: March 20, 2023 Anny Marin , DO RES Attending Provider Active Start: March 20, 2023 End: March 20, 2023 Johnny Dawkins - S , DO Referring Provider Acti ve Start: March 20, 2023 End: March 20, 2023 Team Status: Inactive Member Role Status Dates Services Family [facility] Primary Care Provider Active Start: March 21, 2023 End: March 21, 2023 Estuardo Hardin DO Emergency Provider Active Sta rt: March 21, 2023 End: March 21, 2023 Team Status: Inactive Member Role Status Dates Services [facility] Primary Care Provider Active Start: March 25, 2023 End: March 25, 2023 Anny Marin DO RES Attending Provider Active Start: March 25, 2023 End: March 25, 2023 Kary Ding - S , DO Referring Provider Active S tart: March 25, 2023 End: March 25, 2023 Team Status: Inactive Member Role Status Dates Services [facility] Primary Care Provider Active Start: June 02, 2023 End: June 02, 2023 Tamra Rosen MD Attending Provider Active St art: June 02, 2023 End: June 02, 2023 Anny Marin , DO RES Other Provider Active Sta rt: June 02, 2023 End: June 02, 2023 Lithographic Photographer Relationship Specialty Start Date End Date Hayder Mei DO PCP - General Family Medicine 04/28/17 Sivakumar Sheridan DO [address] [place] [id number] Referring Family Medicine 10/21/22 <item><item> Privacy Markings (unrecogniz ed section and content) Section Author: Rosa Elena Esquivel PROHIBITION ON REDISCLOSURE OF CONFIDENTIAL INFORMATION This notice accompanies a disclosure of information concerning a client made to you with the consent of such client. Section Author: Rosa Elena Esquivel PROHIBITION ON REDISCLOSURE OF CONFIDENTIAL INFORMATION This notice accompanies a disclosure of information concerning a client made to you with the consent of such client. Goals (unrecognized section and content) Goals may be documented in a n alternate sectionGoals may be documented in an alternate sectionGoals may be documented in an alternate sectionGoals may be documented in an alternate sectionGoals may be documented in an alternate sectionGoals may be documented in an alternate sectionGoals may be documented in an alternate sectionGoals may be documented in an alternate section Source Comments (unrecognize d section and content) In the event this informatio n is protected by the Federal Confidentiality of Alcohol and Drug Abuse Patient Records regulations: The Federal rules restrict any use of the information to criminally investigate or prosecute any alcohol or drug abuse patient.[facility] RehabilitationIn the event this information is protected by the Federal Confidentiality of Alcohol and Drug Abuse Patient Records regulations: The Federal rules restrict any use of the information to criminally investigate or prosecute any alcohol or drug abuse patient.[facility] RehabilitationIn the event this information is protected by the Federal Confidentiality of Alcohol and Drug Abuse Patient Records regulations: The Federal rules restrict any use of the information to criminally investigate or prosecute any alcohol or drug abuse patient.[facility] Reason for Visit (unrecogniz ed section and content) Reason Comments Appointment Reason Comments Patient Education Assessment FOR RECORDS PERTAINING TO PATIENTS WHO ARE OR HAVE BEEN ENROLLED IN A CHEMICAL DEPENDENCY/SUBSTANCEABUSE PROGRAM, SOME INFORMATION MAY BE OMITTED. This clinical summary was aggregated from multiple sources. Caution should be exercised in using it in the provision of clinical care. This summary normalizes information from multiple sources, and as a consequence, information in this document may materially change the coding, format and clinical context of patient data. In addition, data may be omitted in some cases. CLINICAL DECISIONS SHOULD BE BASED ON THE PRIMARY CLINICAL RECORDS. [facility] [employer] [facility]. provides no warranty or guarantee of the accuracy or completeness of information in this document.
--- NOTE | 2024-01-12 12:37 | ECG_ITS ---
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
[2024-01-12 12:51] LABS: Basophils Absolute Auto 0.1 10^3/uL (0.0-0.1); Basophils Percent Auto 0.7 % (0.2-2.0); Eosinophils Absolute Auto 0.1 10^3/uL (0.0-0.7); Eosinophils Percent Auto 0.5 % (0.9-7.0); Hematocrit 45.5 % (36.0-48.0); Hemoglobin 15.4 g/dL (12.0-16.0); Immature Granulocytes Abs Auto 0.02 10^3/uL (0.00-0.03); Immature Granulocytes Pct Auto 0.2 % (0.0-0.5); Lymphocytes Absolute Auto 0.9 10^3/uL (1.2-3.8); Lymphocytes Percent Auto 9.7 % (20.5-60.0); Mean Corpuscular HGB Conc 33.8 g/dL (29.9-35.2); Mean Corpuscular Volume 94.4 fL (81.0-99.0); Mean Platelet Volume 11.5 fL (9.5-13.5); Monocytes Absolute Auto 0.3 10^3/uL (0.3-0.8); Monocytes Percent Auto 2.8 % (1.7-12.0); Neutrophils Absolute Auto 7.9 10^3/uL (1.4-6.5); Neutrophils Percent Auto 86.1 % (43.0-75.0); Platelet Count 183 10^3/uL (150-450); Red Blood Count 4.82 10^6/uL (4.20-5.40); Red Cell Distribution Width 12.1 % (11.0-15.0); White Blood Count 9.2 10^3/uL (4.0-11.0)
[2024-01-12 12:58] LABS: Amphetamine Screen Urine NEGATIVE (NEGATIVE); Barbiturates Screen Urine NEGATIVE (NEGATIVE); Benzodiazepines Screen Urine NEGATIVE (NEGATIVE); Buprenorphine Screen Urine NEGATIVE (NEGATIVE); Cannabinoid Screen Urine POSITIVE (NEGATIVE); Cocaine Screen Urine NEGATIVE (NEGATIVE); Methadone Screen Urine NEGATIVE (NEGATIVE); Methamphetamines Screen Urine NEGATIVE (NEGATIVE); Opiate Screen Urine NEGATIVE (NEGATIVE); Oxycodone Screen Urine NEGATIVE (NEGATIVE); Phencyclidine Screen Urine NEGATIVE (NEGATIVE); Tricyclic Antidepressant Urine NEGATIVE (NEGATIVE)
[2024-01-12 13:28] LABS: HCG Qualitative NEGATIVE (NEGATIVE); Internal Control Within Normal Limits
[2024-01-12 13:39] LABS: Alanine Aminotransferase 16 U/L (14-59); Albumin Globulin Ratio 1.3; Alkaline Phosphatase 54 U/L (46-116); Aspartate Amino Transferase 12 U/L (15-37); BUN Creatinine Ratio 10.5; Bilirubin Total 0.5 mg/dL (0.2-1.0); Calcium 8.8 mg/dL (8.5-10.1); Carbon Dioxide 22.9 mmol/L (21.0-32.0); Chloride 106 mmol/L (98-107); Estimated GFR (African America >60 (>=60); Estimated GFR (Non-African Ame >60 (>=60); Ethanol <3 mg/dL; Globulin 3.2 g/dL; Glucose 103 mg/dL (74-106); Potassium 3.9 mmol/L (3.5-5.1); Salicylate <2.8 mg/dL (<=19.9); Sodium 139 mmol/L (136-145); Total Protein 7.2 g/dL (6.4-8.2)
[2024-01-12 13:42] LABS: Acetaminophen <2.0 ug/mL (10.0-30.0)
--- NOTE | 2024-01-12 13:46 | ED.GENADUL1 ---
HPI HPI - General Adult General Chief complaint: Psychiatric Symptoms Stated complaint: Mental Health Time Seen by Provider: 01/12/24 12:19 Source: patient Mode of arrival: walk-in Limitations: no limitations History of Present Illness HPI narrative: The patient is coming to the ER with a history of suicidal ideation, that she have a history of depression and she was admitted at the inpatient before getting discharged and feeling worse again, the patient mentioned that there is no trigger although she has been having some domestic problem with her mother Patient admits that she have suicidal thoughts with a plan to overdose on medication Related Data Home Medications ?Medication ?Instructions ?Recorded ?Confirmed No Known Home Medications 01/12/24 01/12/24 Allergies Allergy/AdvReac Type Severity Reaction Status Date / Time Penicillins Allergy Verified 05/23/23 06:45 prochlorperazine Allergy Verified 05/23/23 06:45 [From Compazine] Opioid HPI Opioid Management Most Recent Opioid Data: Ur Phencyclidine Scrn Negative (NEGATIVE) 01/12/24 12:20 Review of Systems ROS Status of ROS 10 or more systems reviewed and unremarkable except as noted in history and below PFSH PFSH Social History Smoking status: Current every day smoker Exam Narrative Exam Narrative: Nurses notes and vital signs reviewed and patient is not hypoxic. Upper extremities: Multiple superficial cuts to the upper extremity mostly the forearm medially General: Well-appearing and in no apparent distress. Skin: Warm, dry, no pallor noted. No rash. Head: Normocephalic, atraumatic. Neck: Supple, non-tender. Eye: Pupils are equal, round and EOMI. No scleral icterus. Ears, Nose, Mouth, and Throat: TM are clear, no nasal mucosal hypertrophy. Oral mucosa is moist, no posterior oropharynx erythema, uvula is mid-line Cardiovascular: Regular Rate and Rhythm without murmur, gallop or rub. Respiratory: No accessory muscle use or respiratory distress. Lungs are clear to auscultation, no wheezing, rales or rhonchi Chest Wall: no tenderness Back: No midline thoracic or lumbar vertebral tenderness. No CVA tenderness Musculoskeletal: normal ROM, no calf or popliteal tenderness, no lower extremity edema/swelling GI: Abdomen is soft, non-distended. Normal bowel sounds. No masses appreciated. No tenderness to palpation. No rebound, guarding, or rigidity noted. Neurological: A&O x4. No cranial nerve dysfunction observed. No truncal ataxia. Moves all extremities. Sensation intact. Psychiatric: Cooperative and interactive. Normal mood and affect. Constitutional Vital Signs, click to edit/add: Last Vital Signs Temp 99.1 F 01/12/24 12:08 Pulse 89 01/12/24 12:08 Resp 18 01/12/24 12:08 BP 150/83 H 01/12/24 12:08 Pulse Ox 100 01/12/24 12:08 O2 Del Method Room Air 01/12/24 12:08 Course Vital Signs Vital signs: Vital Signs Temperature 99.1 F 01/12/24 12:08 Pulse Rate 89 01/12/24 12:08 Respiratory Rate 18 01/12/24 12:08 Blood Pressure 150/83 H 01/12/24 12:08 Pulse Oximetry 100 01/12/24 12:08 Oxygen Delivery Method Room Air 01/12/24 12:08 Temperature 99.1 F 01/12/24 12:08 Pulse Rate 89 01/12/24 12:08 Respiratory Rate 18 01/12/24 12:08 Blood Pressure 150/83 H 01/12/24 12:08 Pulse Oximetry 100 01/12/24 12:08 Oxygen Delivery Method Room Air 01/12/24 12:08 Medical Decision Making MDM Narrative Medical decision making narrative: The patient EKG in the ER showing sinus rhythm with a heart rate of [address] elevation or depression CBC and chemistry showed no acute pathology and the urine was positive for marijuana The patient was evaluated by [facility] psychiatry services and she was diagnosed with bipolar disorder the patient was accepted by to be admitted to [facility] and she is awaiting transfer Lab Data Labs: Lab Results 01/12/24 01/12/24 Range/Units 12:20 12:45 WBC 9.2 (4.0-11.0) 10^3/uL RBC 4.82 (4.20-5.40) 10^6/uL Hgb 15.4 (12.0-16.0) g/dL Hct 45.5 (36.0-48.0) % MCV 94.4 (81.0-99.0) fL MCH 32.0 (26.7-34.0) pg MCHC 33.8 (29.9-35.2) g/dL RDW 12.1 (11.0-15.0) % Plt Count 183 (150-450) 10^3/uL MPV 11.5 (9.5-13.5) fL Neut % (Auto) 86.1 H (43.0-75.0) % Lymph % (Auto) 9.7 L (20.5-60.0) % [place] % (Auto) 2.8 (1.7-12.0) % Eos % (Auto) 0.5 L (0.9-7.0) % Baso % (Auto) 0.7 (0.2-2.0) % Neut # (Auto) 7.9 H (1.4-6.5) 10^3/uL Lymph # (Auto) 0.9 L (1.2-3.8) 10^3/uL [place] # (Auto) 0.3 (0.3-0.8) 10^3/uL Eos # (Auto) 0.1 (0.0-0.7) 10^3/uL Baso # (Auto) 0.1 (0.0-0.1) 10^3/uL Abs Immat Gran (auto) 0.02 (0.00-0.03) 10^3/uL Imm/Tot Granulo (auto) 0.2 (0.0-0.5) % Sodium 139 (136-145) mmol/L Potassium 3.9 (3.5-5.1) mmol/L Chloride 106 (98-107) mmol/L Carbon Dioxide 22.9 (21.0-32.0) mmol/L Anion Gap 14.0 BUN 9.0 (7.0-18.0) mg/dL Creatinine 0.86 (0.55-1.02) mg/dL Est GFR ( Amer) >60 (>=60) Est GFR (Non-Af Amer) >60 (>=60) BUN/Creatinine Ratio 10.5 Glucose 103 (74-106) mg/dL Calcium 8.8 (8.5-10.1) mg/dL Total Bilirubin 0.5 (0.2-1.0) mg/dL AST 12 L (15-37) U/L ALT 16 (14-59) U/L Alkaline Phosphatase 54 (46-116) U/L Total Protein 7.2 (6.4-8.2) g/dL Albumin 4.0 (3.4-5.0) g/dL Globulin 3.2 g/dL Albumin/Globulin Ratio 1.3 Serum HCG, Qual Negative (NEGATIVE) Salicylates <2.8 (<=19.9) mg/dL Urine Opiates Screen Negative (NEGATIVE) Ur Buprenorphine Scrn Negative (NEGATIVE) Ur Oxycodone Screen Negative (NEGATIVE) Urine Methadone Screen Negative (NEGATIVE) Acetaminophen <2.0 L (10.0-30.0) ug/mL Ur Barbiturates Screen Negative (NEGATIVE) U Tricyclic Antidepress Negative (NEGATIVE) Ur Phencyclidine Scrn Negative (NEGATIVE) Ur Amphetamines Screen Negative (NEGATIVE) U Methamphetamines Scrn Negative (NEGATIVE) U Benzodiazepines Scrn Negative (NEGATIVE) Urine Cocaine Screen Negative (NEGATIVE) U Cannabinoids Screen Positive A (NEGATIVE) Ethanol Quant <3 mg/dL Discharge Plan Discharge Chief Complaint: Psychiatric Symptoms Clinical Impression: Bipolar 1 disorder, depressed Patient Disposition: [facility] Time of Disposition Decision: 16:47
[2024-01-12 17:48] VITALS: BP 122/76; PULSE 74; O2SAT 99
== END 2024-01-12 20:20 ==
PROVIDERS: Emergency Provider Emergency Medicine
DX: F31.9 Bipolar disorder, unspecified (principal); R45.851 Suicidal ideations; F17.200 Nicotine dependence, unspecified, uncomplicated; F12.90 Cannabis use, unspecified, uncomplicated
CPT/HCPCS: 36415; 80053; 80179; 80307; 80320; 80329; 84703; 85025; 93005; 99285

== ENCOUNTER 2024-05-14 10:43 | Inpatient (IN) | payer OTHER, SELFPAY ==
[2024-05-14] VITALS (36 sets, daily range): BP systolic 117–151; BP diastolic 75–91; PULSE 105–132; TEMP 36.8–37.6; O2SAT 88–96; BMI 29.3; BMI 32.7
--- NOTE | 2024-05-14 11:00 | XR_ITS ---
The [address] [address] Patient Name: ROSHAN GARCIA MRN: [id number] date: 1990 Sex: F Assigned Patient Location: ER Current Patient Location: ER Accession/Order Number: [id number] Exam Date: 05/14/2024 11:15 Report Date: 05/14/2024 11:52 At the request of: ARSENIO OSMAN Procedure: XR chest 1V EXAMINATION: XR chest 1V HISTORY: sob COMPARISON: No relevant comparison available. TECHNIQUE: AP portable FINDINGS: LUNGS: No significant pulmonary parenchymal abnormalities. VASCULATURE: No increased pulmonary vasculature. PLEURA: No pneumothorax, effusion, or pleural thickening. CARDIAC: No cardiomegaly or cardiac silhouette abnormality. MEDIASTINUM: No visible mass or adenopathy. BONES: No fracture or visible bone lesion. OTHER: Negative. XR/XR chest 1V IMPRESSION: No acute cardiopulmonary process Electronically authenticated by: RODGER BLAKE Date: 05/14/2024 11:52
--- NOTE | 2024-05-14 11:00 | ECG_ITS ---
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
--- NOTE | 2024-05-14 11:04 | ED.GENADUL1 ---
HPI HPI - General Adult General Chief complaint: Shortness of Breath/Dyspnea Stated complaint: SOB Time Seen by Provider: 05/14/24 11:00 Source: patient Mode of arrival: Wheelchair Limitations: no limitations History of Present Illness HPI narrative: Patient is a 33-year-old female who is presenting to the ER today with chief complaint of shortness of breath. Patient has a history of asthma. Patient been coughing for 5 days. Patient was treated for pneumonia approximately 1-1.5 months ago. Patient was seen in urgent care at that time. Patient does have history of asthma, patient states she been having a harder time breathing in the past 5 days. Patient does have a nebulizer machine at home, she has run out of her Nebules. Patient states she has been doing them for every 4 hours at home. She has no medical imaging tech, she has no PCP. She does not see the health department. She was told to establish with PCP and medical imaging tech when she left the urgent care in the last several months and has not. Patient currently is unemployed. No recent chemical exposure. Patient has no headache or neck pain. Patient arrived in mild to moderate respiratory distress with increased respiratory rate, patient was hypoxic and had increased work of breathing. Patient arrived by private car. Patient does smoke cigarettes, she states that she uses vape more than cigarettes. Also smokes marijuana intermittently. No other illicit drugs, no smoking crystal meth or any other illicit drugs. Patient states that she is not . No recent traveling. No other sick contacts. All systems are negative except as noted/marked. All systems reviewed and otherwise negative. Nurses note and vital signs reviewed and patient is hypoxic. Patient was placed on 4 L nasal cannula initially. General: The patient appears moderate respiratory distress with increased work of breathing, increased respiratory rate, and hypoxia. Patient does not wear oxygen at home.. Patient is resting comfortably on cart. Patient is not toxic, lethargic, or listless Skin: Warm, dry, no pallor noted. There is no rash noted. No petechiae, purpura. Head: Normocephalic, atraumatic Eye: Normal conjunctiva, no drainage, EOMI. PERRL Ears, Nose, Mouth, and Throat: oral mucosa is moist. Nares patent. Mouth without vesicles. Cardiovascular: Increased regular Rate and Rhythm, no murmur, gallop, rub Respiratory: Patient is in moderate respiratory distress, increased respiratory rate, mild accessory use, diffuse wheezing, mild rales bilateral, mild rhonchi bilateral. Back: non-tender, no CVA tenderness bilaterally to percussion. No CT LS midline pain GI: Soft, no tenderness to palpation, no masses appreciated. No rebound, guarding, or rigidity noted. No distention Musculoskeletal: Patient has full range of motion of all of the extremities, no motor, sensory, or focal neurological deficits. Patient has no edema. Neurological: A&O x4, normal speech Psychiatric: Cooperative Related Data Home Medications ?Medication ?Instructions ?Recorded ?Confirmed albuterol sulfate 90 mcg/actuation 2 puff inhalation Q4H PRN 05/14/24 05/14/24 aerosol inhaler (Ventolin HFA) shortness of breath or wheezing desvenlafaxine succinate 25 mg 25 mg PO BEDTIME 05/14/24 05/14/24 tablet,extended release 24 hr hydroxyzine HCl 25 mg tablet 25 mg PO Q6H PRN anxiety 05/14/24 05/14/24 melatonin 5 mg tablet 10 mg PO BEDTIME 05/14/24 05/14/24 olanzapine 5 mg tablet 5 mg PO BEDTIME 05/14/24 05/14/24 Allergies Allergy/AdvReac Type Severity Reaction Status Date / Time Penicillins Allergy Verified 05/23/23 06:45 prochlorperazine (From Allergy Verified 05/23/23 06:45 Compazine) Opioid HPI Opioid Management Most Recent Opioid Data: Ur Phencyclidine Scrn Negative (NEGATIVE) 01/12/24 12:20 01/12/24 PFSH PFS Medical History (Updated 05/14/24 @ 13:44 by Pancho Malin MD) 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) Asthma ?J45.909 - Unspecified asthma, uncomplicated (ICD-10) Social History Smoking status: Current every day smoker Little interest or pleasure in doing things: not at all Feeling down, depressed, or hopeless: not at all Exam Constitutional Vital Signs, click to edit/add: Last Vital Signs Temp 99.7 F 05/14/24 10:54 Pulse 107 H 05/14/24 12:20 Resp 26 H 05/14/24 12:20 BP 132/91 05/14/24 12:01 Pulse Ox 92 L 05/14/24 12:22 O2 Del Method Nasal Cannula 05/14/24 12:22 O2 Flow Rate 4 05/14/24 12:22 Course Vital Signs Vital signs: Vital Signs Temperature 99.7 F 05/14/24 10:54 Pulse Rate 126 H 05/14/24 10:54 Respiratory Rate 26 H 05/14/24 10:54 Blood Pressure 145/90 H 05/14/24 10:54 Pulse Oximetry 92 L 05/14/24 10:54 Oxygen Delivery Method Room Air 05/14/24 10:54 Temperature 99.7 F 05/14/24 10:54 Pulse Rate 107 H 05/14/24 12:20 Respiratory Rate 26 H 05/14/24 12:20 Blood Pressure 132/91 05/14/24 12:01 Pulse Oximetry 92 L 05/14/24 12:22 Oxygen Delivery Method Nasal Cannula 05/14/24 12:22 Oxygen Delivery Flow Rate 4 05/14/24 12:22 Medical Decision Making MDM Narrative Medical decision making narrative: Patient initially was given 2 DuoNeb breathing treatments along with albuterol nebulizer. Patient was also given IV Solu-Medrol, IV magnesium 2 g as well. Patient had chest x-ray, lab work and EKG done. Patient will be observed for few hours to see how she responds to medications. 1300 patient breathing did improve, patient was also given 0.5 mg of Ativan IV to help with decreasing respiratory rate slightly, helping underlying anxiety, and feeling better. Patient was ambulated by Julia KERN. Patient was 88% on room air, when patient ambulated her oxygen did go up to 90, 91, but her heart rate went up in the 130s, patient increased work of breathing. Patient's oxygen then dropped down again to 88/89. Patient was placed back on 2 L nasal cannula. Patient also has bilateral lung still shows diffuse mild wheezing, it has improved. However, patient is not safe enough to go home with hypoxia, increased respiratory rate, increased work of breathing. Patient was placed back on 2 L of nasal cannula. 1354 patient was admitted to Dr. Pinto. Lab Data Labs: Lab Results 05/14/24 05/14/24 05/14/24 Range/Units 11:00 11:05 11:30 WBC 11.4 H (4.0-11.0) 10^3/uL RBC 5.54 H (4.20-5.40) 10^6/uL Hgb 17.3 H (12.0-16.0) g/dL Hct 49.8 H (36.0-48.0) % MCV 89.9 (81.0-99.0) fL MCH 31.2 (26.7-34.0) pg MCHC 34.7 (29.9-35.2) g/dL RDW 12.7 (11.0-15.0) % Plt Count 284 (150-450) 10^3/uL MPV 11.3 (9.5-13.5) fL Neut % (Auto) 73.3 (43.0-75.0) % Lymph % (Auto) 14.4 L (20.5-60.0) % Angelina % (Auto) 5.2 (1.7-12.0) % Eos % (Auto) 5.7 (0.9-7.0) % Baso % (Auto) 1.1 (0.2-2.0) % Neut # (Auto) 8.4 H (1.4-6.5) 10^3/uL Lymph # (Auto) 1.6 (1.2-3.8) 10^3/uL [place] # (Auto) 0.6 (0.3-0.8) 10^3/uL Eos # (Auto) 0.7 (0.0-0.7) 10^3/uL Baso # (Auto) 0.1 (0.0-0.1) 10^3/uL Abs Immat Gran (auto) 0.03 (0.00-0.03) 10^3/uL Imm/Tot Granulo (auto) 0.3 (0.0-0.5) % D-Dimer 0.21 (<=0.59) mg/L FEU Puncture Site ABG pH (7.350-7.450) ABG pCO2 (35.0-45.0) mmHg ABG pO2 (80.0-100.0) mmHg ABG HCO3 (22.0-26.0) mmol/L ABG O2 Saturation % ABG Base Excess (-2.0-2.0) mmol/L [place] Test (POSITIVE) O2 Liters/Min Sodium 144 (136-145) mmol/L Potassium 4.0 (3.5-5.1) mmol/L Chloride 107 (98-107) mmol/L Carbon Dioxide 21.8 (21.0-32.0) mmol/L Anion Gap 19.2 BUN 11.0 (7.0-18.0) mg/dL Creatinine 0.98 (0.55-1.02) mg/dL Est GFR ( Amer) >60 (>=60 mL/min/1.73m^2) Est GFR (Non-Af Amer) >60 (>=60 mL/min/1.73m^2) BUN/Creatinine Ratio 11.2 Glucose 118 H (74-106) mg/dL Calcium 9.8 (8.5-10.1) mg/dL Total Bilirubin 0.7 (0.2-1.0) mg/dL AST 20 (15-37) U/L ALT 26 (14-59) U/L Alkaline Phosphatase 81 (46-116) U/L Troponin I High Sens <4.0 L (4.0-51.3) pg/mL NT-Pro-B Natriuret Pep 8.0 (<=450.0) pg/mL Total Protein 8.3 H (6.4-8.2) g/dL Albumin 4.4 (3.4-5.0) g/dL Globulin 3.9 g/dL Albumin/Globulin Ratio 1.1 Influenza Type A Ag Negative Influenza Type B Ag Negative RSV Antigen Not detected (NOT DETECTE) SARS-CoV-2 Ag (CV2AG) Negative (NEGATIVE) 05/14/24 Range/Units 12:26 WBC (4.0-11.0) 10^3/uL RBC (4.20-5.40) 10^6/uL Hgb (12.0-16.0) g/dL Hct (36.0-48.0) % MCV (81.0-99.0) fL MCH (26.7-34.0) pg MCHC (29.9-35.2) g/dL RDW (11.0-15.0) % Plt Count (150-450) 10^3/uL MPV (9.5-13.5) fL Neut % (Auto) (43.0-75.0) % Lymph % (Auto) (20.5-60.0) % [place] % (Auto) (1.7-12.0) % Eos % (Auto) (0.9-7.0) % Baso % (Auto) (0.2-2.0) % Neut # (Auto) (1.4-6.5) 10^3/uL Lymph # (Auto) (1.2-3.8) 10^3/uL [place] # (Auto) (0.3-0.8) 10^3/uL Eos # (Auto) (0.0-0.7) 10^3/uL Baso # (Auto) (0.0-0.1) 10^3/uL Abs Immat Gran (auto) (0.00-0.03) 10^3/uL Imm/Tot Granulo (auto) (0.0-0.5) % D-Dimer (<=0.59) mg/L FEU Puncture Site Rr ABG pH 7.387 (7.350-7.450) ABG pCO2 32.1 L (35.0-45.0) mmHg ABG pO2 67.0 L (80.0-100.0) mmHg ABG HCO3 19.3 L (22.0-26.0) mmol/L ABG O2 Saturation 94.1 % ABG Base Excess -5.7 L (-2.0-2.0) mmol/L [place] Test Positive (POSITIVE) O2 Liters/Min 4 Sodium (136-145) mmol/L Potassium (3.5-5.1) mmol/L Chloride (98-107) mmol/L Carbon Dioxide (21.0-32.0) mmol/L Anion Gap BUN (7.0-18.0) mg/dL Creatinine (0.55-1.02) mg/dL Est GFR ( Amer) (>=60 mL/min/1.73m^2) Est GFR (Non-Af Amer) (>=60 mL/min/1.73m^2) BUN/Creatinine Ratio Glucose (74-106) mg/dL Calcium (8.5-10.1) mg/dL Total Bilirubin (0.2-1.0) mg/dL AST (15-37) U/L ALT (14-59) U/L Alkaline Phosphatase (46-116) U/L Troponin I High Sens (4.0-51.3) pg/mL NT-Pro-B Natriuret Pep (<=450.0) pg/mL Total Protein (6.4-8.2) g/dL Albumin (3.4-5.0) g/dL Globulin g/dL Albumin/Globulin Ratio Influenza Type A Ag Influenza Type B Ag RSV Antigen (NOT DETECTE) SARS-CoV-2 Ag (CV2AG) (NEGATIVE) ECG Data Attestation: I personally reviewed and interpreted this ECG as follows: (EKG interpretation. Artifact, this will be repeated secondary to patient's respiratory rate. Sinus tachycardia 115. Normal axis deviation. No obvious ST elevation, QTc 398, this to be repeated when patient respiratory rate improved) Interpretation: EKG #2. Sinus tachycardia 102. Artifact noted. Artifact has improved, artifact still in place. Normal axis deviation. QTc of 387. No ST elevation Discharge Plan Discharge Chief Complaint: Shortness of Breath/Dyspnea Clinical Impression: Asthma exacerbation, Hypoxia, Tobacco abuse Patient Disposition: Admitted as Observation Time of Disposition Decision: 13:43 Condition: Fair
--- NOTE | 2024-05-14 11:05 | ECG_ITS ---
[facility] Test Date: 2024-05-14 Pat Name: ROSHAN GARCIA Department: Room: - Gender: Female [employer]: : 1990 Requested By: [id number] Order Number: [id number] Reading MD: CAMILLE VENEGAS Measurements Intervals Ages [place] Rate: 102 P: 66 DC: 138 QRS: 76 QRSD: 82 T: 58 QT: 328 QTc: 387 Interpretive Statements 1120 Sinus tachycardia 9140 abnormal rhythm ECG Electronically Signed On 05-17-2024 20:16:40 EST by CAMILLE VENEGAS
[2024-05-14] MEDS: METHYLPREDNISOLONE SOD SUCC PF 125 MG/2 ML VIAL IVP ×2 (11:14→17:44)
[2024-05-14] MEDS: MAGNESIUM SULFATE IN WATER 2 GM/50 ML PREMIX IV (11:14)
[2024-05-14 11:20] LABS: Basophils Absolute Auto 0.1 10^3/uL (0.0-0.1); Basophils Percent Auto 1.1 % (0.2-2.0); Eosinophils Absolute Auto 0.7 10^3/uL (0.0-0.7); Eosinophils Percent Auto 5.7 % (0.9-7.0); Hematocrit 49.8 % (36.0-48.0); Hemoglobin 17.3 g/dL (12.0-16.0); Immature Granulocytes Abs Auto 0.03 10^3/uL (0.00-0.03); Immature Granulocytes Pct Auto 0.3 % (0.0-0.5); Lymphocytes Absolute Auto 1.6 10^3/uL (1.2-3.8); Lymphocytes Percent Auto 14.4 % (20.5-60.0); Mean Corpuscular HGB Conc 34.7 g/dL (29.9-35.2); Mean Corpuscular Hemoglobin 31.2 pg (26.7-34.0); Mean Corpuscular Volume 89.9 fL (81.0-99.0); Mean Platelet Volume 11.3 fL (9.5-13.5); Monocytes Absolute Auto 0.6 10^3/uL (0.3-0.8); Monocytes Percent Auto 5.2 % (1.7-12.0); Neutrophils Absolute Auto 8.4 10^3/uL (1.4-6.5); Neutrophils Percent Auto 73.3 % (43.0-75.0); Platelet Count 284 10^3/uL (150-450); Red Blood Count 5.54 10^6/uL (4.20-5.40); Red Cell Distribution Width 12.7 % (11.0-15.0); White Blood Count 11.4 10^3/uL (4.0-11.0)
[2024-05-14] MEDS: IPRATROPIUM/ALBUTEROL SULFATE 3 ML AMPUL.NEB 6 ML IH (11:22)
[2024-05-14] MEDS: ALBUTEROL SULFATE 2.5 MG/3 ML VIAL NEB IH (11:29)
[2024-05-14 11:33] LABS: Influenza Virus A Antigen Negative; Influenza Virus B Antigen Negative; Internal Control Within Normal Limits; Respiratory Syncytial Virus Not Detected (NOT DETECTE); SARS-CoV-2 Ag NEGATIVE (NEGATIVE)
[2024-05-14 11:54] LABS: D Dimer 0.21 mg/L FEU (<=0.59)
[2024-05-14 12:08] LABS: Alanine Aminotransferase 26 U/L (14-59); Albumin Globulin Ratio 1.1; Albumin Level 4.4 g/dL (3.4-5.0); Alkaline Phosphatase 81 U/L (46-116); Anion Gap 19.2; Aspartate Amino Transferase 20 U/L (15-37); BUN Creatinine Ratio 11.2; Bilirubin Total 0.7 mg/dL (0.2-1.0); Calcium 9.8 mg/dL (8.5-10.1); Carbon Dioxide 21.8 mmol/L (21.0-32.0); Chloride 107 mmol/L (98-107); Estimated GFR (African America >60 (>=60 mL/min/1.73m^2); Estimated GFR (Non-African Ame >60 (>=60 mL/min/1.73m^2); Globulin 3.9 g/dL; Glucose 118 mg/dL (74-106); Sodium 144 mmol/L (136-145); Total Protein 8.3 g/dL (6.4-8.2); Troponin I High Sensitivity <4.0 pg/mL (4.0-51.3)
[2024-05-14] MEDS: LORAZEPAM 2 MG/ML VIAL 1 MG IV (12:16)
[2024-05-14 12:39] LABS: pH ABG 7.387 (7.350-7.450)
[2024-05-14 12:40] LABS: ABG PCO2 32.1 mmHg (35.0-45.0); Allen Test POSITIVE (POSITIVE); Base Excess ABG -5.7 mmol/L (-2.0-2.0); HCO3 ABG 19.3 mmol/L (22.0-26.0); Liters per Minute 4; O2 Mode NC; Oxygen Saturation ABG 94.1 %; Puncture Site RR
--- NOTE | 2024-05-14 16:45 | P.HP_ITS ---
HPI H&P: HPI History of Present Illness Chief complaint: SOB ASTHMA EXACERBATION Narrative: Patient was treated for pneumonia about a month ago, she does have a history of asthma likely secondary to premature the respiratory distress syndrome, she does vape, has been going on for 4 years, over the last 24 to 36 hours she is having increasing cough and shortness of breath, difficulty walking even 10 to 15 feet at home. In the ER found acute exacerbation of asthma with significa nt tachycardia and severe hypoxia with O2 sat of 90% on 2 L. Significant leukocytosis. I saw patient up in the medical surgical floor, resting very comfortably in bed with very short sentences, significant dyspnea Opioid HPI Opioid Management Most Recent Pain and Opioid Data: Last Pain Assessment 05/14/24 19:00 Last ORT Total Score 3 05/14/24 14:42 05/14/24 Last ORT Risk Category Low Risk 05/14/24 14:42 05/14/24 Ur Phencyclidine Scrn Negative (NEGATIVE) 01/12/24 12:20 0907/05 Review of Systems ROS Status of ROS 10 or more systems reviewed and unremark able except as noted in history and below PFSH PFS Medical History (Updated 05/14/24 @ 15:39 by Paty Singer RN) History of seizures ?Z87.898 - Personal history of other specified conditions (ICD-10) POTS (postural orthostatic tachycardia syndrome) ?G90.A - Postural orthostatic tachycardia syndrome [POTS] (ICD-10) PTSD (post-traumatic stress disorder) ?F43.10 - Post-traumatic stress disorder, unspecified (ICD-10) Depression ?F32.A - Depression, unspecified (ICD-10) 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) Asthma ?J45.909 - Unspecified asthma, uncomplicated (ICD-10) Family History (Updated 05/14/24 @ 14:54 by Paty Singer RN) Grandmother Family history of cancer Family history of hypertension Mother Family history of cancer Family history of COPD (chronic obstructive pulmonary disease) Family history of myocardial infarction Grandfather Family history of diabetes mellitus Social History (Updated 05/14/24 @ 14:53 by Paty Singer RN) Within the past year, how often did you have a drink containing alcohol: never Score interpretation: A score less than 3 is consistent with normal alcohol consumption. Smoking status: Current every day smoker Do you use any of these nicotine containing products: vaping products Non-prescribed substance use: cannabis (any form) Highest level of school completed/degree received: high school graduate Little interest or pleasure in doing things: not at all Feeling down, depressed, or hopeless: not at all Meds Home Medications and Allergies Home Medications ?Medication ?Instructions ?Recorded ?Confirmed ?Type albuterol sulfate 90 mcg/actuation 2 puff inhalation Q4H PRN 05/14/24 05/14/24 History aerosol inhaler (Ventolin HFA) shortness of breath or wheezing hydroxyzine HCl 25 mg tablet 25 mg PO Q6H PRN anxiety 05/14/24 05/14/24 History melatonin 5 mg tablet 10 mg PO BEDTIME 05/14/24 05/14/24 History olanzapine 5 mg tablet 5 mg PO BEDTIME 05/14/24 05/14/24 History Allergies Allergy/AdvReac Type Severity Reaction Status Date / Time Penicillins Allergy Verified 05/23/23 06:45 prochlorperazine (From Allergy Verified 05/23/23 06:45 Compazine) Exam Constitutional Vital Signs, click to edit/add: Last Vital Signs Temp 98.9 F 05/14/24 14:42 Pulse 117 H 05/14/24 14:42 Resp 26 H 05/14/24 14:42 BP 151/88 H 05/14/24 14:42 Pulse Ox 91 L 05/14/24 14:42 O2 Del Method Nasal Cannula 05/14/24 14:42 O2 Flow Rate 4 05/14/24 14:42 Documenting provider has reviewed patient's vital signs: yes Common normals: apparent distress (Moderate respiratory distress with moderate conversational dyspnea) Chest Common normals: inspection of chest normal Respiratory Common normals: abnormal respiratory effort (Moderate respiratory distress with moderate conversational dyspnea) and not clear to ascultation bilaterally Effort & inspection: not able to speak in complete sentences Auscultation: rhonchi and wheezes Cardio Common normals: regular rhythm; irregular rate GI Common normals: Normal to inspection, nondistended, normoactive bowel sounds present Results Labs Labs: Short CBC 05/14/24 Range/Units 11:05 WBC 11.4 H (4.0-11.0) 10^3/uL Hgb 17.3 H (12.0-16.0) g/dL Hct 49.8 H (36.0-48.0) % Plt Count 284 (150-450) 10^3/uL BMP 05/14/24 11:30 Sodium 144 Potassium 4.0 Chloride 107 Carbon Dioxide 21.8 BUN 11.0 Creatinine 0.98 Glucose 118 H Calcium 9.8 Liver Function 05/14/24 Range/Units 11:30 Total Bilirubin 0.7 (0.2-1.0) mg/dL AST 20 (15-37) U/L ALT 26 (14-59) U/L Alkaline Phosphatase 81 (46-116) U/L Albumin 4.4 (3.4-5.0) g/dL ABG ABG results: 05/14/24 12:26 ABG pH 7.387 ABG pCO2 32.1 L ABG pO2 67.0 L ABG HCO3 19.3 L ABG O2 Saturation 94.1 ABG Base Excess -5.7 L Assessment and Plan Assessment and Plan (1) Tobacco abuse: (2) Hypoxia: (3) Asthma exacerbation: (4) Bipolar 1 disorder, depressed: Plan Admission findings: Sinus tachycardia, respiratory distress, uncontrolled hypertension, acute hypoxia with O2 sat of 90% on 2 L, leukocytosis secondary to acute exacerbation of asthma secondary to a acute bronchitis and leading to sepsis Acute exacerbation of asthma secondary to acute bronchitis as outlined above- resulting in criteria for sepsis-IV antibiotics, aggressive aerosol treatments, high-dose steroids to start with hopefully be able to taper that tomorrow Bipolar disorder continue with home medications Hemoglobin elevated today this is likely secondary to the vaping, will see how it is in the morning Admission status: Patient with severe hypoxia and sepsis criteria for acute exacerbation of asthma, medically necessary treatment will span 2 midnights. Inpatient status.
[2024-05-14] MEDS: LEVOFLOXACIN IN DEXTROSE 5 % 500 MG/100 ML PREMIX 100 MG IV (17:47)
[2024-05-14] MEDS: 0.9 % SODIUM CHLORIDE 250 ML 10 ML IV (17:55)
[2024-05-14] MEDS: HYDROXYZINE HCL 25 MG TABLET PO (22:06)
[2024-05-14] MEDS: OLANZapine 5 MG TABLET PO (22:06)
--- NOTE | 2024-05-14 22:16 | PC.NURSE ---
Addendum entered by Cammie Madrid RN 05/14/24 23:20: GRADER TENDER notified and she recommended pink slip Original Note: Patient found in room crying. When asked what was wrong she states she feels like a burden to everyone and feels things can't be fixed. She explained poor relationship with her mother, and she has 12,000 people that hates her. When asked if she is feeling suicidal she stated yeah . This senior underwriter asked if she had a plan and she stated yeah but i don't want to be honest about it because I don't want to be stopped . GRADER TENDER will be notified
--- NOTE | 2024-05-14 22:32 | PC.NURSE ---
FERRY CAPTAIN has been notified and patient was placed on 1:1 watch with staff
[2024-05-14] MEDS: LEVALBUTEROL HCL 0.63 MG/3 ML VIAL.NEB IH (22:51)
[2024-05-14] MEDS: IPRATROPIUM BROMIDE 0.5 MG/2.5 ML VIAL.NEB IH (22:51)
--- NOTE | 2024-05-14 23:23 | PC.NURSE ---
Patients mood has become withdrawn with flat affect towards staff.
[2024-05-15] VITALS (12 sets, daily range): BP systolic 126–140; BP diastolic 72–89; PULSE 83–116; TEMP 36.3–37; O2SAT 91–95
--- NOTE | 2024-05-15 00:41 | PC.NURSE ---
Patient went into bathroom and nurse aide found patients home medication in the bed. Medication removed. Patient found out and started crying. Patient states I cant do this anymore I don't want to breathe anymore . Everyone hates me .
--- NOTE | 2024-05-15 01:15 | PC.NURSE ---
Patient stated she was going to take medications to kill herself and was upset we stopped her. Home medication locked in suspect artist supervisor safe and patient's room swept for safety.
--- NOTE | 2024-05-15 01:20 | PC.NURSE ---
Patient got out of bed, sat on floor, and banged her head against the window sill. This publicity writer discussed the need to get back in bed and back on oxygen. Patient returned to bed and continued stating I just want to go I don't matter to anyone . Patient digging fingernails in her arm.
--- NOTE | 2024-05-15 01:25 | PC.NURSE ---
Commodities Trader notified of medication found in patient bed and medication removed from patient possession by NA. Commodities Trader to patient room @ 0050. Upon entering the patient room the patient was crying and stating I don't want to be here anymore. Patient reports she is upset the medication was taken from her and stated I can't even kill myself right, I fail at everything. Emotional support provided to the patient and coping techniques attempted. Patient started to calm down and then started crying loudly again repeating I fail at everything. Primary nurse notified of interaction with the patient.
[2024-05-15] MEDS: DIAZEPAM 10 MG/2 ML SYRINGE 5 MG IV (01:45)
[2024-05-15] MEDS: ZIPRASIDONE MESYLATE 20 MG VIAL 10 MG IM (04:07)
[2024-05-15] MEDS: WATER FOR INJECTION, STERILE 20 ML VIAL INJ (04:08)
--- NOTE | 2024-05-15 04:17 | PC.NURSE ---
Patient digging nails in arms. Repeats I just want to . Patient burying face into pillow I want to stop breathing . PRN med given at this time for agitation
[2024-05-15] MEDS: HYDROXYZINE HCL 25 MG TABLET PO ×3 (04:44→18:32)
--- NOTE | 2024-05-15 05:20 | PC.NURSE ---
Patient pacing room repeating I can't get rid of these intrusive thoughts . When flex o writer operator asked what thoughts patient stated to harm myself
--- NOTE | 2024-05-15 05:38 | PC.NURSE ---
Patient put herself on ground and banging her head on the wall. Patient stopped and helped back into bed
[2024-05-15 06:24] LABS: Basophils Percent Auto 0.2 % (0.2-2.0); Eosinophils Percent Auto 0.1 % (0.9-7.0); Hematocrit 45.9 % (36.0-48.0); Hemoglobin 15.8 g/dL (12.0-16.0); Immature Granulocytes Abs Auto 0.09 10^3/uL (0.00-0.03); Immature Granulocytes Pct Auto 0.5 % (0.0-0.5); Lymphocytes Absolute Auto 1.4 10^3/uL (1.2-3.8); Mean Corpuscular HGB Conc 34.4 g/dL (29.9-35.2); Mean Corpuscular Hemoglobin 30.8 pg (26.7-34.0); Mean Corpuscular Volume 89.5 fL (81.0-99.0); Mean Platelet Volume 10.6 fL (9.5-13.5); Monocytes Absolute Auto 0.6 10^3/uL (0.3-0.8); Monocytes Percent Auto 3.4 % (1.7-12.0); Neutrophils Absolute Auto 15.6 10^3/uL (1.4-6.5); Neutrophils Percent Auto 87.8 % (43.0-75.0); Platelet Count 346 10^3/uL (150-450); Red Blood Count 5.13 10^6/uL (4.20-5.40); Red Cell Distribution Width 12.6 % (11.0-15.0); White Blood Count 17.7 10^3/uL (4.0-11.0)
[2024-05-15 06:36] LABS: Anion Gap 19.6; BUN Creatinine Ratio 14.8; Calcium 9.7 mg/dL (8.5-10.1); Carbon Dioxide 20.7 mmol/L (21.0-32.0); Chloride 105 mmol/L (98-107); Estimated GFR (African America >60 (>=60 mL/min/1.73m^2); Estimated GFR (Non-African Ame >60 (>=60 mL/min/1.73m^2); Glucose 147 mg/dL (74-106); Potassium 4.3 mmol/L (3.5-5.1); Sodium 141 mmol/L (136-145)
--- NOTE | 2024-05-15 08:04 | PC.NURSE ---
Pt very apologetic and sad about how she acted previous shift. Reassurance given.
[2024-05-15] MEDS: LEVALBUTEROL HCL 0.63 MG/3 ML VIAL.NEB IH ×2 (10:16→16:19)
[2024-05-15] MEDS: IPRATROPIUM BROMIDE 0.5 MG/2.5 ML VIAL.NEB IH ×2 (10:16→16:19)
[2024-05-15] MEDS: METHYLPREDNISOLONE SOD SUCC PF 125 MG/2 ML VIAL 60 MG IVP ×2 (11:23→17:35)
--- NOTE | 2024-05-15 15:19 | P.IMPN_ITS ---
Progress Note: A&P Assessment and Plan (1) Asthma exacerbation: Assessment and Plan: Improving but still dyspneic and hypoxic. C/w solumedrol, Xopenex. Qualifiers: Asthma severity: severe Asthma persistence: persistent Qualified Code(s): J45.51 - Severe persistent asthma with (acute) exacerbation (2) Acute respiratory failure with hypoxia: Assessment and Plan: On 2 L O2 via NC. Improving. Initially required 4 L. Wean off O2 as tolerated (3) Suicidal ideation: Assessment and Plan: 1:1, once medically stable, will contact [facility] for eval and possible inpatient psych treatment. Past hx of suicide attempts, inpatient psych treatment with most recent attempt in 2020. (4) Bipolar 1 disorder, depressed: Assessment and Plan: C/w olanzapine. (5) PTSD (post-traumatic stress disorder): Assessment and Plan: c/w Olanzapine (6) Tobacco abuse: Assessment and Plan: Counseled on tobacco abuse. Internal Medicine - PN: Subj Subjective Interval history: Seen and examined. Patient still SOB at rest and requiring O2 In past 12 hours - patient had an acute anxiety/panic attack during which she was extremely difficult to control and required multiple medications to sedate and calm her down. Patient also hid her Olanzapine in her Pillow case and intended to take them all but was caught before she could harm herself. She is currently on 1:1. She admits suicidal ideation and that she feels hopeless and wishes that she was . Exam Constitutional Vital Signs, click to edit/add: Last Vital Signs Temp 98 F 05/15/24 11:31 Pulse 91 H 05/15/24 11:31 Resp 20 05/15/24 11:31 BP 134/81 05/15/24 11:31 Pulse Ox 95 05/15/24 11:31 O2 Del Method Nasal Cannula 05/15/24 11:31 O2 Flow Rate 2 05/15/24 11:31 Documenting provider has reviewed patient's vital signs: yes Common normals: oriented x3 General appearance: cooperative Eye Common normals: conjunctivae normal and no scleral icterus Conjunctiva: conjunctiva(e) normal Respiratory Common normals: normal respiratory effort Effort & inspection: able to speak in complete sentences Auscultation: wheezes and diminished lung sounds Other: appeared SOB at rest Cardio Common normals: regular rate, S1 normal heart sound and S2 normal heart sound Rate: regular rate Heart sounds: S1 normal and S2 normal GI Common normals: Normal to inspection, nondistended, normoactive bowel sounds present, soft to palpation, non-tender and no hepatosplenomegaly Palpation: soft and no hepatosplenomegaly Extremity Common normals: no clubbing, cyanosis or edema Neuro Common normals: oriented x3, moves all extremities and no focal motor deficits Psych Common normals: mental status grossly normal, thought process normal and denies hallucinations Attitude: calm and engaged Speech: slow Mood and affect: anxious, sad and tearful Thought process: normal thought process Thought content: normal thought content Insight: insight good Judgement: judgment good Internal Medicine - PN: Obj Da Labs Labs: Laboratory Results - last 24 hr 05/14/24 05/15/24 17:07 06:05 WBC 17.7 H RBC 5.13 Hgb 15.8 Hct 45.9 MCV 89.5 MCH 30.8 MCHC 34.4 RDW 12.6 Plt Count 346 MPV 10.6 Neut % (Auto) 87.8 H Lymph % (Auto) 8.0 L [place] % (Auto) 3.4 Eos % (Auto) 0.1 L Baso % (Auto) 0.2 Neut # (Auto) 15.6 H Lymph # (Auto) 1.4 [place] # (Auto) 0.6 Eos # (Auto) 0.0 Baso # (Auto) 0.0 Abs Immat Gran (auto) 0.09 H Imm/Tot Granulo (auto) 0.5 Sodium 141 Potassium 4.3 Chloride 105 Carbon Dioxide 20.7 L Anion Gap 19.6 BUN 13.0 Creatinine 0.88 Est GFR ( Amer) >60 Est GFR (Non-Af Amer) >60 BUN/Creatinine Ratio 14.8 Glucose 147 H Lactate 1.0 Calcium 9.7
--- NOTE | 2024-05-15 18:40 | PC.NURSE ---
Observer called out for hellp. Pt used pop tab to scratch left wrist, and stated she wanted to hurt herself. Pop tab removed from hand and bandaid applied to wrist . Sulfonation Equipment Operator in room and aware. pt to be moved to ICU for closer observation.Hospitalist supervisor contact lens to be notified.
[2024-05-15] MEDS: ACETAMINOPHEN 500 MG TABLET 1000 MG PO (19:45)
[2024-05-15] MEDS: BENZONATATE 100 MG CAPSULE 200 MG PO (19:45)
--- NOTE | 2024-05-15 20:25 | PC.NURSE ---
Late entry: At 1827 nursing staff called supervisor cell room on portable phone to notify Masha Letty was in room with the patient and the patient used a pop tab to scratch her own wrist. Casing Flusher was notified the pop tab was removed from the patient's possession and a bandaid was being applied to the patient's wrist. Casing Flusher notified security and presented to patient room with security. Upon entering the patient's room Masha SERRANO, Breana KERN, and Stacey KERN were at the bedside with the patient providing constant supervision and providing emotional support. Casing Flusher notified staff for patient safety she is to be moved to the ICU as MS overflow for closer supervision.
[2024-05-15] MEDS: OLANZapine 5 MG TABLET PO (21:20)
[2024-05-16] MEDS: BENZONATATE 100 MG CAPSULE 200 MG PO (03:00)
[2024-05-16] MEDS: METHYLPREDNISOLONE SOD SUCC PF 125 MG/2 ML VIAL 60 MG IVP ×2 (03:01→09:35)
[2024-05-16 03:25] VITALS: PULSE 72; O2SAT 91
[2024-05-16] MEDS: IPRATROPIUM BROMIDE 0.5 MG/2.5 ML VIAL.NEB IH ×2 (03:25→10:30)
[2024-05-16] MEDS: HYDROXYZINE HCL 25 MG TABLET PO ×2 (03:25→09:59)
[2024-05-16] MEDS: ACETAMINOPHEN 500 MG TABLET 1000 MG PO (03:25)
[2024-05-16] MEDS: LEVALBUTEROL HCL 0.63 MG/3 ML VIAL.NEB IH ×2 (03:26→10:30)
[2024-05-16 03:36] VITALS: BP 133/82; PULSE 90; TEMP 36.4; O2SAT 92
[2024-05-16 06:21] LABS: Basophils Percent Auto 0.1 % (0.2-2.0); Hematocrit 43.8 % (36.0-48.0); Hemoglobin 14.8 g/dL (12.0-16.0); Immature Granulocytes Abs Auto 0.13 10^3/uL (0.00-0.03); Immature Granulocytes Pct Auto 0.6 % (0.0-0.5); Lymphocytes Percent Auto 5.1 % (20.5-60.0); Mean Corpuscular HGB Conc 33.8 g/dL (29.9-35.2); Mean Corpuscular Hemoglobin 31.1 pg (26.7-34.0); Monocytes Absolute Auto 0.3 10^3/uL (0.3-0.8); Monocytes Percent Auto 1.4 % (1.7-12.0); Neutrophils Absolute Auto 18.9 10^3/uL (1.4-6.5); Neutrophils Percent Auto 92.8 % (43.0-75.0); Platelet Count 332 10^3/uL (150-450); Red Blood Count 4.76 10^6/uL (4.20-5.40); Red Cell Distribution Width 13.1 % (11.0-15.0); White Blood Count 20.3 10^3/uL (4.0-11.0)
[2024-05-16 06:27] LABS: Anion Gap 14.2; BUN Creatinine Ratio 15.7; Calcium 9.1 mg/dL (8.5-10.1); Carbon Dioxide 24.2 mmol/L (21.0-32.0); Chloride 108 mmol/L (98-107); Estimated GFR (African America >60 (>=60 mL/min/1.73m^2); Estimated GFR (Non-African Ame >60 (>=60 mL/min/1.73m^2); Glucose 143 mg/dL (74-106); Potassium 4.4 mmol/L (3.5-5.1); Sodium 142 mmol/L (136-145)
[2024-05-16 08:00] VITALS: BP 153/58; PULSE 90; TEMP 37; TEMP 37.1; O2SAT 92; O2SAT 93
[2024-05-16 10:30] VITALS: PULSE 72; O2SAT 92
--- NOTE | 2024-05-16 10:42 | P.IMPN_ITS ---
Progress Note: A&P Assessment and Plan (1) Asthma exacerbation: Assessment and Plan: Doing well today. Stable from medical point of view for discharge on PO prednisone taper and albuterol inhaler as needed. Qualifiers: Asthma persistence: persistent Asthma severity: severe Qualified Code(s): J45.51 - Severe persistent asthma with (acute) exacerbation (2) Acute respiratory failure with hypoxia: Assessment and Plan: resolved. On RA now. (3) Suicidal ideation: Assessment and Plan: Past hx of suicide attempts, inpatient psych treatment with most recent attempt in 2020. Patient reports active suicidal ideation. Tried to harm herself twice in the hospital. On 1:1. Patient calm/comfortable and agreeable to go to inpatient psych. (4) Bipolar 1 disorder, depressed: Assessment and Plan: C/w olanzapine. (5) PTSD (post-traumatic stress disorder): Assessment and Plan: c/w Olanzapine (6) Tobacco abuse: Assessment and Plan: Counseled on tobacco abuse. Plan Patient is medically cleared for discharge. I spoke with Charge Nurse of Inpatient Psych Unit at [facility] [place] who will d/w her case with her provider. Once accepted for transfer, she will be discharged to inpatient psych unit on PO prednisone taper and albuterol inhaler as needed. Internal Medicine - PN: Subj Subjective Interval history: Seen and examined. Off of O2. Feeling better and denies SOB. Has mild cough. Last evening, patient tried to cut herself using the lid of soda can. She is on 1:1 Exam Constitutional Vital Signs, click to edit/add: Last Vital Signs Temp 98.7 F 05/16/24 08:00 Pulse 90 05/16/24 08:00 Resp 18 05/16/24 08:00 BP 133/82 05/16/24 03:36 Pulse Ox 92 L 05/16/24 08:00 O2 Del Method Room Air 05/16/24 08:00 O2 Flow Rate 2 05/15/24 16:20 Documenting provider has reviewed patient's vital signs: yes Common normals: oriented x3 General appearance: cooperative Respiratory Common normals: normal respiratory effort Effort & inspection: able to speak in complete sentences Auscultation: wheezes Cardio Common normals: regular rate, S1 normal heart sound and S2 normal heart sound Rate: regular rate Heart sounds: S1 normal and S2 normal Extremity Common normals: no clubbing, cyanosis or edema Neuro Common normals: oriented x3, moves all extremities and no focal motor deficits Psych Common normals: mental status grossly normal, thought process normal and denies hallucinations Attitude: calm and engaged Thought process: normal thought process Thought content: normal thought content Insight: insight good Judgement: judgment good Internal Medicine - PN: Obj Da Labs Labs: Laboratory Results - last 24 hr 05/16/24 05:43 WBC 20.3 H RBC 4.76 Hgb 14.8 Hct 43.8 MCV 92.0 MCH 31.1 MCHC 33.8 RDW 13.1 Plt Count 332 MPV 11.0 Neut % (Auto) 92.8 H Lymph % (Auto) 5.1 L Preston % (Auto) 1.4 L Eos % (Auto) 0.0 L Baso % (Auto) 0.1 L Neut # (Auto) 18.9 H Lymph # (Auto) 1.0 L Preston # (Auto) 0.3 Eos # (Auto) 0.0 Baso # (Auto) 0.0 Abs Immat Gran (auto) 0.13 H Imm/Tot Granulo (auto) 0.6 H Sodium 142 Potassium 4.4 Chloride 108 H Carbon Dioxide 24.2 Anion Gap 14.2 BUN 13.0 Creatinine 0.83 Est GFR ( Amer) >60 Est GFR (Non-Af Amer) >60 BUN/Creatinine Ratio 15.7 Glucose 143 H Calcium 9.1
[2024-05-16 10:46] VITALS: O2SAT 92
[2024-05-16] MEDS: LORAZEPAM 1 MG TABLET PO (11:30)
[2024-05-16 12:00] VITALS: BP 158/57; PULSE 90; TEMP 37.1; O2SAT 93
[2024-05-16] MEDS: LORAZEPAM 2 MG/ML VIAL 1 MG IV (14:01)
--- NOTE | 2024-05-16 14:48 | PC.NURSE ---
pt transferred to [facility] 20 Bed 1, report called to [facility] at [phone]. Patient picked up by [facility], home medication sent with Maya from [facility], count done prior to discharge, record in chart, IV removed, Patient discharged at 1438.
--- NOTE | 2024-05-21 11:20 | P.DS_ITS ---
DS: Providers Provider Date of admission: 05/14/24 14:32 Primary care physician: Non-Staff Physician, Admitting clinician: Frederick Pinto Attending physician on admission: Frederick Pinto Consults: 05/14/24 16:42 Consult to Pharmacy Routine Consulting Provider: Reason for consultation: Please [place] me when Med Rec is Updated Has provider been notified: No Attending physician on discharge: Shaikh Swati Discharging clinician: Shaikh Swati Anticipated date of discharge: 05/21/24 DS: Diagnosis Discharge Diagnosis (1) Asthma exacerbation: Qualifiers: Asthma persistence: persistent Asthma severity: severe Qualified Code(s): J45.51 - Severe persistent asthma with (acute) exacerbation (2) Acute respiratory failure with hypoxia: (3) Suicidal ideation: (4) Bipolar 1 disorder, depressed: (5) PTSD (post-traumatic stress disorder): (6) Tobacco abuse: DS: Summary Hospital Course Hospital Course: 33-year-old female presented to ER with worsening shortness of breath and cough and was admitted for acute respiratory failure with hypoxia secondary to asthma exacerbation. She tested negative for influenza, RSV and COVID. Her chest x- ray also was unremarkable with no evidence of consolidation or pneumonia. Patient was treated with IV Solu-Medrol and DuoNebs. She gradually improved from respiratory point of view and was eventually taken off of oxygen upon day of discharge. During the course of admission patient reported active suicidal ideation and on 2 different occasions, tried to hurt herself-once by ingesting unsafe amount of olanzapine and the second time attempted to cut herself using a soda can. Once patient was medically stable for discharge-she was transferred to inpatient psych unit at [facility] for treatment of her mental health crisis. For asthma, she was discharged on p.o. prednisone taper. Time Spent with Patient Time attestation: Total time spent providing and/or coordinating discharge services: Exam Constitutional Vital Signs, click to edit/add: Last Vital Signs Temp 98.7 F 05/16/24 12:00 Pulse 90 05/16/24 12:00 Resp 20 05/16/24 12:00 BP 158/57 H 05/16/24 12:00 Pulse Ox 93 L 05/16/24 12:00 O2 Del Method Room Air 05/16/24 12:00 O2 Flow Rate 2 05/15/24 16:20 Discharge Plan Discharge Disposition: [facility] Condition: Fair Discharge Date/Time: 05/16/24 14:38 Discharge location: [place] [address] bed 1
== END 2024-05-16 14:38 | disposition short-term general hospital (02) | DRG 145 ==
LOC: ER 13:44 → MS 05-15 09:57 → ICU 05-15 20:26
PROVIDERS: Family Medicine; Admitting Provider Internal Medicine; Emergency Provider Emergency Medicine; Visit Provider Internal Medicine
DX: J20.9 Acute bronchitis, unspecified (principal); J96.01 Acute respiratory failure with hypoxia; J45.51 Severe persistent asthma with (acute) exacerbation; R45.851 Suicidal ideations; F17.210 Nicotine dependence, cigarettes, uncomplicated; F17.290 Nicotine dependence, other tobacco product, uncomplicated; F31.9 Bipolar disorder, unspecified; F41.0 Panic disorder [episodic paroxysmal anxiety]; F43.10 Post-traumatic stress disorder, unspecified; Z56.0 Unemployment, unspecified; Z79.899 Other long term (current) drug therapy; Z88.0 Allergy status to penicillin; Z88.8 Allergy status to other drugs, medicaments and biological substances; Z91.51 Personal history of suicidal behavior; Z11.52 Encounter for screening for COVID-19
CPT/HCPCS: 36415; 36600; 71045; 80048; 80053; 82805; 83605; 83880; 84484; 85025; 85378; 87070; 87420; 87804; 87811; 93005; 94640; 94667; 94668; 94761; 96374; 96375; 99285; 99406; J2060; J2919; J3360; J3475; J3486

== ENCOUNTER 2025-01-20 12:50 | Emergency (ER) | payer OTHER, SELFPAY ==
[2025-01-20] VITALS (64 sets, daily range): BP systolic 99–165; BP diastolic 62–112; PULSE 64–124; TEMP 37.4; O2SAT 89–100; BMI 34.8
--- NOTE | 2025-01-20 13:21 | ECG_ITS ---
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
--- OUTSIDE RECORDS SUMMARY | 2025-01-20 13:33 | XMS_ITS | CCD ---
Author Organization [facility] Inform ion Partnership [facility] Care Team Providers Care Appliance Adjuster Name Role Phone Family Health, Services Primary Care Provider MD Yonathan Davis Attending Provider DO Kary Lux Emergency Provider DO Kary Ding Attending Provider [phone] DO Sivakumar Sheridan Referring Provider REE Morales Emergency Provider [phone] MD Brent Simmons Admit Provider MD Brent [...] Provider MD Maria Elena Francis Other Provider [phone] Robin ANP-BC Francheska Other Provider [phone] MD Durga Giron Other Provider MD Augie Marks Other Provider MD Lucie Paredes Other Provider MD Saniya Dobbs Other Provider MD Elian Mendiola Other Provider MD Kwan Avilez Other [...] Other Provider MD Billy Medina Other Provider [phone] Jimena, CONCHA Rivas Other Provider Unavailable LESLIE Grewal Attending Provider DO Anny Marin Referring Provider [phone] Free, Text Entry Unavailable Unavailable Olive Long Unavailable Unavailable Pending, Provider Primary Care Unavailable Olive Long Attending Unavailable Family Health, Services Primary Care Provider LESLIE Grewal Attending Provider DO Anny Marin Referring Provider MD Bogdan Barnes Emergency Provider Kary Teran Unavailable Unavailable Pending, Provider Primary Care Unavailable Dr. KARY TERAN Attending Dominga Hayder Hill Primary Care Provider [facility], [facility] Primary Care Provider [phone] Ba, [facility]- Katerina Gary Emergency Provider NICK, DR SCHERER Primary Care Unavailable WEST, DR RODGER Phipps Consulting Unavailable SAMSA ., KYRIE Admitting Unavailable SAMSA ., KYRIE Attending Unavailable HAY ., DR MARTINEZ Consulting Unavailable LOMAS ., MR OLIVE Consulting Unavailable SAMSA ., KYRIE Consulting Unavailable MALISSA FRIAS Consulting Unavailable NICK, DR SCHERER Primary Care Unavailable VENESSA, ISABELLE Admitting Unavailable ISABELLE CLIFFORD Attending Unavailable VENESSA, ISABELLE Consulting Unavailable DELL ARVIZU Consulting Unavailable MD Bogdan Barnes Emergency Provider INEZ Torres Primary Care Provider MD Brent Simmons Admit Provider [phone] MD Troy Brent Attending Provider MD Trace Burton Other Provider [phone] DO Rodger Anaya Other Provider MD López Aranda Other Provider MD Brenda Cervantes Other Provider MD Diane Armendariz K Other Provider MD Cecilia Galo Other Provider LESLIE Roblero Other Provider [phone] MD Harvey Varghese Other Provider MD Andrea Lomas Other Provider Sivakumar hSeridan DO Unavailable [phone] INEZ Torres Primary Care Provider MD Elian Langston Jr Emergency Provider DO Estuardo Hardin Emergency Provider DO Ismael Calderon Emergency Provider NO FAMILY, PHYSICIAN Primary Care Provider Unava ilable INEZ Torres Primary Care Provider MD Elian Langston Jr Emergency Provider DO Estuardo Hardin Emergency Provider DO Ismael Calderon Emergency Provider [facility] Primary Care Provider Malek, DO Anny Attending Provider Brankikei, Olive A Referring Provider Malek, DO Anny Attending Provider Mast, DO Kary Referring Provider ROBER Torres-Lissy Jones Primary Care Provider MD Phillip Davis Attending Provider [phone] Braniecki - S, DO Olive A Referring Provider Mast - S, DO Kary Referring Provider MD Tamra Rosen Attending Provider Malek, DO Anny Other Provider Hayder Mei DO Primary Care Provider SJ JOSHUA Attending Unavailable HAYDER MEI Primary Care Unavailab REY Penn Admitting Unavailable KATHI ZAMORA Attending Unavailable HAYDER MEI Primary Care Unavailab HAYDER Piper Primary Care Unavailab ariella [facility] Primary Care Provider MD Brent Simmons Admit Provider MD Brent Simmons Attending Provider [facility] Primary Care Provider [phone] Brent Simmons MD Admit Provider Phillip Davis MD Attending Provider [phone] Brian RESOURCE EFFICIENCY MANAGER-CLetty Primary Care Provider Brian RESOURCE EFFICIENCY MANAGER-C, Letty Jones Primary Care Provider Phillip Davis MD Attending Provider [phone] [facility] Primary Care Provider Ryan RITTER, Phillip Admit Provider Brian 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CANE SPLICER, Letty Yu Primary Care Provid er Troy RITTER, Bretn Attending Provider Brian RESOURCE EFFICIENCY MANAGER-C, Letty Jones Primary Care Provider Ryan RITTER, Phillip Attending Provider [phone] Troy RITTER, Brent Admit Provider [facility] Primary Care Provider [phone] Ryan RITTER, Phillip Admit Provider Troy RITTER, Brent Attending Provider [phone] Brian RESOURCE EFFICIENCY MANAGER-C, Letty Jones Primary Care Provider Troy RITTER, Brent Admit Provider hPillip Davis MD Attending Provider LETTY TORRES Primary Care Unavailable LETTY TORRES Primary Care Unavailable ROSE MCKOY Attending Unavailable BRIAN, LETTY Yu Primary Care Unavailable SARKIS POZO Attending Unavailable BRIAN, LETTY Yu Primary Care Unavailable ROSE MCKOY Attending Unavailable No Pcp, No Pcp Primary Care Provider [facility] Brian RESOURCE EFFICIENCY MANAGER-C, Letty Jones Primary Care Provider Troy RITTER, Brent Admit Provider [phone] Brent Simmons MD Attending Provider Phillip Davis MD Attending Provider [phone] Phyllis 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-CANE SPLICER, Faith Mcfarlane Primary Care Provi anika WERNER FOSTER Attending Unavailable WERNER FOSTER Referring Unavailable NO PCP, NO PCP Primary Care Unavailable FAITH FERGUSON Attending Unavailable FAITH FERGUSON Primary Care Unavailable DELL MORRISON Attending Unavailable FAITH FERGUSON Referring Unavailable FAITH FERGUSON Primary Care Unavailable Brian RESOURCE EFFICIENCY MANAGER-C, Letty Adenae Primary Care Provider Phillip Davis MD Attending Provider Troy RITTER, Brent Admit Provider [phone] Troy RITTER, Brent Attending Provider Troy RITTER, Brent Other Provider Troy, Brent Admitting Unavailable [facility] Unavailabl e Troy, Brent Attending Unavailable [facility], Services Primary Care Unavaila ble Troy, Brent Admitting Unavailable Troy, Brent Attending Unavailable Brian, [facility] Primary Care Unavailabl e Troy, Brent Attending Unavailable Troy, Brent Admitting Unavailable Ryan, Phillip Admitting Unavailab le Ryan, Phillip Attending Unavailab le [facility], Services Primary Care Unavaila ble Brian, [facility] Primary Care Unavailabl e Troy, Brent Admitting Unavailable Troy, Brent Attending Unavailable Troy, Brent Admitting Unavailable Brian, [facility] Primary Care Unavailabl e Troy, Brent Attending Unavailable FAITH FERGUSON A Primary Care Unavailable FELICIA AN Attending Unavailable GRILLIS, DELL E Admitting Unavailable GRILLIS DELL E Attending Unavailable GRILLIS, DELL E Referring Unavailable PHYLLIS FAITH A Primary Care Unavailable FAITH FERGUSON A Referring Unavailable MARIA INES FERGUSONITH A Primary Care Unavailable KWAMEILLIS, DELL E Attending Unavailable GRILLIS, DELL E Referring Unavailable PHYLLIS, FAITH A Primary Care Unavailable Allergies Allergy Classification Reported Allergen(s) Allergy Type Date of Onset Reaction(s) Facility (20 sources) Penicillins; Translations: [PENICILLINS] Allergy to substance 12-07-19 22 Unknown, Rash, Hives [facility] (20 sources) Prochlorperazine; Translations: [PROCHLORPERAZINE] Drug Allergy 02-17-20 20 Mental Status Change, Anxiety [facility] (2 sources) Prochlorperazine Drug Allergy Other [facility] Comment on above: Irritations (1 source) Prochlorperazine Drug Allergy [facility] (7 sources) Apple extract Drug Allergy 01-12-20 Unknown Reaction [facility] Comment on above: allergen test told h er she was allergic (7 sources) Cranberry preparation Drug Allergy 01-12-20 24 Hives [facility] Comment on above: and blisters Medications Current Medications Medication Drug Class(es) Dates Sig (Normalized) Sig (Original) albuterol 0.83 mg/ml inhalation solution (20 sources) beta2-Adrenergic Agonist Start: 12-13-2024 take 3 mL by inhalation every six hours as needed for wheezing albuterol (PROVENTIL,VENTOLIN ) 2.5 mg /3 mL (0.083 %) nebulizer solution Indications: Moderate asthma without complication, unspecified whether persistent , Hx of major depression , Hx of anorexia nervosa , Anxiety , Pott's disease Inhale 3 mL (2.5 mg total) by nebulization every 6 (six) hours as needed for wheezing. 75 mL 1 12/13/2024 Active Start: 12-13-2024 take 2 puff(s) by in halation every six hours as needed for wheezing albuterol (PROVENTIL HFA;VENTOLIN HFA) 90 mcg/actuation inhaler Indications: Moderate asthma without complication, unspecified whether persistent , Hx of major depression , Hx of anorexia nervosa , Anxiety , Pott's disease Inhale 2 puffs every 6 (six) hours as needed for wheezing. 18 g 4 12/13/2024 Active Start: 2021 End: 07-24-2022 Albuterol Sulfate 90 mcg/act uation HFA aerosol inhaler Active 2 INH INHALATION EVERY 4-6 HOURS as needed for shortness of breath or wheezing July 24, 2022 5:02pm administer with spacer Complies with drug therapy Start: 06-08-2021 End: 12-06-2021 take 1 puff(s) by inhalation every six hours as needed Albuterol Sulfate 90 mcg/actuation Hfa Aerosol Inhaler Discontinued 2 PUFF INHALATION Q6H as needed for Shortness Of Breath September 11, 2021 12:00am December 06, 2021 4:47pm Start: 03-17-2021 End: 05-02-2021 Albuterol Sulfate 90 mcg/act uation HFA aerosol inhaler Discontinued 2 INH INHALATION Q6H as needed for shortness of breath or wheezing 8 7 March 17, 2021 12:00am May 02, 2021 11:13pm administer with spacer 120 actuat budesonide 0.16 mg/actuat / formoterol fumarate 0.0045 mg/actuat metered dose inhaler (15 sources) Corticosteroid, beta2-Adrenergic Agonist Start: 07-24-2022 Budesonide-Formoterol (Symbicort) 160-4.5 mcg/actuation HFA aerosol inhaler Active 1 INH INHALATION Twice daily 10.2 July 24, 2022 12:00am Complies with drug therapy busPIRone hydrochloride 10 mg oral tablet (6 sources) Start: 09-20-2024 End: 12-31-2024 take 1 tablet by mouth in the morning busPIRone (BUSPAR) 10 mg tablet Take 1 tablet (10 mg total) by mouth in the morning. 09/20/2024 Active 24 hr desvenlafaxine succinate 50 mg extended release oral tablet (20 sources) Serotonin and Norepinephrine Reuptake Inhibitor Start: 01-03-2025 take 1 tablet by mouth once daily Start: 09-03-2024 take 1 tablet by anayeli th every twenty-four hours desvenlafaxine (PRISTIQ) 100 mg 24 hr tablet Take 1 tablet (100 mg total) by mouth. 09/03/2024 Active Start: 07-18-2024 End: 12-31-2024 take 1 tablet by mouth once daily, then take 1 tablet by mouth every twenty-four hours Desvenlafaxine Succinate (Pristiq) 100 mg tablet extended release 24 hr Discontinued 100 MG PO Daily September 20, 2024 12:05pm December 31, 2024 9:58pm Start: 05-24-2024 End: 07-18-2024 take 1 tablet by mouth once daily Desvenlafaxine Succinate 50 mg Tablet Extended Release 24 Hr Discontinued 50 MG PO Daily May 24, 2024 1:00am July 18, 2024 11:32am Start: 01-18-2024 End: 05-16-2024 take 1 tablet by mouth once daily at bedtime Desvenlafaxine Succinate 25 mg Tablet Extended Release 24 Hr Discontinued 25 MG PO Daily at bedtime January 18, 2024 12:00am May 16, 2024 4:34pm Start: 10-23-2022 take 25 mg by mouth once daily Desvenlafaxine Succinate Active 25 MG PO Daily October 22, 2022 11:00pm dicyclomine hydrochloride 10 mg oral capsule (6 sources) Anticholinergic Start: 10-23-2022 take 10 mg by mouth three times daily Dicyclomine Active 10 MG PO Three times daily 45 October 22, 2022 11:00pm doxycycline hyclate 100 mg oral capsule (1 source) Tetracycline-class Drug Start: 04-01-2024 take 1 capsule by mouth twice daily Doxycycline Hyclate 100 mg capsule Active 100 MG PO Twice daily 20 April 01, 2024 12:00am 120 actuat fluticasone propionate 0.045 mg/actuat / salmeterol 0.021 mg/actuat metered dose inhaler (3 sources) Corticosteroid, beta2-Adrenergic Agonist Start: 12-13-2024 take 2 puff(s) by inhalation in the morning fluticasone propion-salmeter oL (ADVAIR HFA) 45-21 mcg/actuation inhaler Indications: Moderate asthma without complication, unspecified whether persistent , Hx of major depression , Hx of anorexia nervosa , Anxiety , Pott's disease Inhale 2 puffs in the morning and 2 puffs before bedtime. 12 g 11 12/13/2024 Active lamoTRIgine 25 mg oral tablet (2 sources) Mood Stabilizer, Anti-epileptic Agent Start: 01-03-2025 take 1 tablet by mouth in the morning lamoTRIgine (LaMICtal) 25 mg tablet Take 1 tablet (25 mg total) by mouth in the morning. 01/03/2025 Active lithium carbonate 300 mg extended release oral tablet (20 sources) Start: 10-23-2022 take 300 mg by mouth once daily Franquez Carbonate Active 300 MG PO Daily October 22, 2022 11:00pm Start: 10-23-2022 take 450 mg by mouth once daily at bedtime Franquez Carbonate Active 450 MG PO Daily at bedtime October 22, 2022 11:00pm Start: 12-18-2021 End: 10-09-2022 take 1 tablet by mouth once daily Franquez Carbonate 450 mg tablet extended release Discontinued 450 MG PO Daily February 06, 2022 12:00am October 09, 2022 10:19pm Start: 12-18-2021 take 450 mg by mouth once daily at bedtime Franquez Carbonate Active 450 MG PO Daily at bedtime 11 15December 18, 2021 12:45pm Start: 09-17-2021 End: 12-18-2021 take 1 tablet by mouth once daily at bedtime Franquez Carbonate 450 mg Tablet Extended Release Discontinued 450 MG PO Daily at bedtime 11 15September 17, 2021 12:00am December 18, 2021 12:46pm melatonin 10 mg oral tablet (20 sources) Start: 12-28-2024 take 1 tablet by mouth at bedtime as needed for sleep Melatonin 10 mg tablet Active 10 MG PO Bedtime as needed for sleep December 31, 2024 12:00am Complies with drug therapy Start: 09-20-2024 End: 01-04-2025 take 2 tablets by mouth once daily at bedtime Melatonin 5 mg Tablet Discontinued 10 MG PO Daily at bedtime September 20, 2024 12:00am January 04, 2025 10:46am Start: 05-24-2024 End: 01-05-2025 take 1 tablet by mouth once daily as needed melatonin (CIRCADIN) 5 mg tablet Take 1 tablet (5 mg total) by mouth nightly as needed. 09/03/2024 01/05/2025 Discontinued Start: 01-19-2024 End: 05-16-2024 take 2 tablets by mouth once daily at bedtime Melatonin 5 mg Tablet Discontinued 10 MG PO Daily at bedtime January 19, 2024 12:00am May 16, 2024 4:33pm Start: 01-19-2024 take 10 mg by mouth once daily at bedtime Melatonin Active 10 MG PO Daily at bedtime January 19, 2024 12:00am Start: 01-12-2024 End: 05-16-2024 take 8 mg by mouth once daily at bedtime as needed for sleep Melatonin 5 mg Tablet Discontinued 8 MG PO Daily at bedtime as needed for sleep January 12, 2024 12:00am May 16, 2024 4:33pm Start: 01-12-2024 take 8 mg by mouth o nce daily at bedtime Melatonin Active 8 MG PO Daily at bedtime January 12, 2024 12:00am Start: 10-23-2022 End: 01-12-2024 take 1 tablet by mouth once daily at bedtime Melatonin 5 mg Tablet Discontinued 5 MG PO Daily at bedtime 15 October 23, 2022 12:00am January 12, 2024 9:32pm Start: 12-24-2020 End: 05-02-2021 take 1 tablet by mouth once daily at bedtime Melatonin 5 mg Tablet Discontinued 5 MG PO Daily at bedtime 15 December 24, 2020 12:00am May 02, 2021 11:13pm metoclopramide 10 mg oral tablet (11 sources) Dopamine-2 Receptor Antagonist Start: 01-23-2023 take 1 tablet by mouth three times daily Metoclopramide Hcl (Reglan) 10 mg tablet Active 10 MG PO Three times daily January 22, 2023 11:00pm Start: 10-23-2022 take 10 mg by mouth every six hours Metoclopramide Hcl Active 10 MG PO Q6H October 22, 2022 11:00pm nicotine 2 mg chewing gum (20 sources) Cholinergic Nicotinic Agonist Start: 09-20-2024 End: 12-13-2024 Start: 07-18-2024 End: 09-09-2024 Nicotine (Polacrilex) 2 mg G um Discontinued 2 MG BUCCAL Every 2 hours as needed for Nicotine Cravings July 18, 2024 1:00am September 09, 2024 6:16pm Start: 05-24-2024 Nicotine (Kaiden crilex) 2 mg Gum Active 2 MG BUCCAL Q2H as needed for Nicotine Cravings June 18, 2024 12:00am Start: 01-18-2024 End: 05-16-2024 Nicotine (Polacrilex) 2 mg G um Discontinued 2 MG BUCCAL Q2H as needed for Nicotine Cravings January 18, 2024 12:00am May 16, 2024 4:33pm Start: 10-23-2022 Nicotine (Kaiden crilex) Active 2 MG BUCCAL Every 2 hours October 22, 2022 11:00pm Start: 12-18-2021 End: 10-09-2022 Nicotine (Polacrilex) (Nicor ette) 4 mg gum Discontinued 4 MG BUCCAL Q6H as needed for nicotine cravings December 18, 2021 12:00am October 09, 2022 10:19pm Start: 12-18-2021 Nicotine (Kaiden crilex) (Nicorette) 4 mg gum Active 4 MG BUCCAL Q6H 40 December 18, 2021 12:00am Start: 09-11-2021 End: 09-11-2021 Nicotine (Polacrilex) Discon tinued MG GUM, CHEWING September 11, 2021 12:00am September 11, 2021 10:47pm Start: 09-04-2021 End: 09-11-2021 Nicotine (Polacrilex) 2 mg g um Discontinued MG September 11, 2021 12:00am September 11, 2021 10:47pm Start: 06-18-2021 End: 08-31-2021 Nicotine (Polacrilex) 2 mg G um Discontinued 2 MG BUCCAL Every 2 hours as needed for Nicotine Cravings 60 June 18, 2021 1:00am August 31, 2021 2:49pm OLANZapine 5 mg oral tablet (20 sources) Atypical Antipsychotic Start: 01-04-2025 take 1 tablet by mouth every six hours as needed Start: 04-01-2024 End: 08-17-2024 take 1 tablet by mouth twice daily as needed Olanzapine 5 mg tablet Discontinued 5 MG PO Twice daily as needed April 01, 2024 1:00am May 16, 2024 4:33pm Start: 01-18-2024 End: 05-16-2024 take 5 mg by mouth twice daily as needed Olanzapine 10 mg tablet Discontinued 5 MG PO Twice daily as needed for Agitation January 18, 2024 12:00am May 16, 2024 4:33pm Start: 01-18-2024 take 5 mg by mouth twice daily Olanzapine Active 5 MG PO Twice daily January 18, 2024 12:00am Start: 10-23-2022 take 5 mg by mouth o nce daily in the evening Olanzapine Active 5 MG PO Every evening October 22, 2022 11:00pm Start: 12-18-2021 End: 10-09-2022 take 1 tablet by mouth once daily Olanzapine 5 mg tablet Discontinued 5 MG PO Daily February 06, 2022 12:00am October 09, 2022 10:19pm Start: 12-18-2021 take 5 mg by mouth o nce daily in the evening Olanzapine Active 5 MG PO Every evening December 18, 2021 12:00am Start: 05-28-2017 End: 07-02-2017 take 1 tablet by mouth once daily at bedtime Olanzapine 10 mg Tablet Discontinued 10 MG PO Daily at bedtime May 28, 2017 1:00am July 02, 2017 12:15pm ondansetron 4 mg oral tablet (20 sources) Serotonin-3 Receptor Antagonist Start: 03-21-2023 Ondansetron Hcl Active 4 MG PO every 6 to 8 hours March 21, 2023 12:00am Start: 08-26-2020 End: 08-27-2020 take 1 tablet by mouth three times daily as needed for nausea Ondansetron (Zofran Odt) 4 mg Tablet,Disintegrating Discontinued 4 MG PO Three times daily as needed for Nausea August 26, 2020 12:00am August 27, 2020 12:38pm End: 12-13-2024 ondansetron (ZOFRAN) 4 mg ta blet Take 2 tablets (8 mg total) by mouth. 12/13/2024 Discontinued pantoprazole 40 mg delayed release oral tablet (20 sources) Proton Pump Inhibitor Start: 10-23-2022 take 40 mg by mouth once daily Pantoprazole Active 40 MG PO Daily October 22, 2022 11:00pm Start: 05-14-2017 End: 07-02-2017 take 1 tablet by mouth once daily Pantoprazole 40 mg Tablet,Delayed Release (Dr/Ec) Discontinued 40 MG PO Daily May 28, 2017 5:09pm July 02, 2017 12:15pm prazosin 1 mg oral capsule (20 sources) alpha-Adrenergic Jonna Start: 01-03-2025 take 1 capsule by mouth once daily at bedtime Start: 12-01-2024 take 1 capsule by mo [facility] once daily prazosin (MINIPRESS) 2 mg capsule Take 1 capsule (2 mg total) by mouth nightly. 12/01/2024 Active Start: 09-20-2024 End: 01-05-2025 take 2 capsules by mouth once daily prazosin (MINIPRESS) 1 mg capsule Take 2 capsules (2 mg total) by mouth nightly. 09/20/2024 01/05/2025 Discontinued Start: 09-20-2024 End: 12-31-2024 take 1 capsule by mouth once daily at bedtime Prazosin 1 mg Capsule Discontinued 2 MG PO Daily at bedtime 60 September 20, 2024 12:00am December 31, 2024 9:58pm Start: 06-18-2021 End: 08-31-2021 take 1 capsule by mouth once daily at bedtime Prazosin 2 mg capsule Discontinued 4 MG PO Daily at bedtime 60 June 18, 2021 1:00am August 31, 2021 3:42am Start: 06-18-2021 End: 08-31-2021 take 4 mg by mouth once daily at bedtime Prazosin Discontinued 4 MG PO Daily at bedtime 60 June 18, 2021 1:00am August 31, 2021 3:42am Start: 05-30-2021 End: 06-07-2021 take 3 mg by mouth once daily at bedtime Prazosin Discontinued 3 MG PO Daily at bedtime 45 May 30, 2021 11:30am June 07, 2021 11:47pm Start: 12-24-2020 End: 06-18-2021 take 1 capsule by mouth once daily at bedtime Prazosin (Minipress) 1 mg capsule Discontinued 3 MG PO Daily at bedtime June 07, 2021 11:47pm June 18, 2021 1:14pm QUEtiapine 25 mg oral tablet (19 sources) Atypical Antipsychotic Start: 05-24-2024 take 1 tablet by mouth twice daily Quetiapine 25 mg Tablet Active 25 MG PO Twice daily 60 May 24, 2024 12:00am Start: 01-19-2024 End: 05-16-2024 take 1 tablet by mouth twice daily as needed for anxiety Quetiapine 25 mg Tablet Discontinued 25 MG PO Twice daily as needed for Anxiety January 19, 2024 12:00am May 16, 2024 4:33pm Start: 01-18-2024 End: 08-17-2024 take 1 tablet by mouth once daily at bedtime Quetiapine 50 mg Tablet Discontinued 50 MG PO Daily at bedtime January 18, 2024 12:00am May 16, 2024 4:34pm traZODone hydrochloride 150 mg oral tablet (20 sources) Serotonin Reuptake Inhibitor Start: 12-28-2024 End: 01-04-2025 take 1 tablet by mouth at bedtime as needed Trazodone 150 mg tablet Active 150 MG PO Bedtime as needed for insomnia 0 January 04, 2025 6:50am Complies with drug therapy Start: 09-20-2024 End: 01-05-2025 take 1 tablet by mouth once daily traZODone (DESYREL) 100 mg tablet Take 1 tablet (100 mg total) by mouth nightly. 09/20/2024 01/05/2025 Discontinued Start: 07-14-2024 End: 09-20-2024 take 1 tablet by mouth at bedtime as needed for sleep Trazodone 50 mg tablet Discontinued 50 MG PO Bedtime as needed for sleep July 14, 2024 1:00am September 20, 2024 12:05pm Start: 05-24-2024 take 1 tablet by anayeli th once daily at bedtime as needed Trazodone 50 mg Tablet Active 50 MG PO Daily at bedtime as needed for Insomnia May 24, 2024 12:00am Start: 01-18-2024 End: 05-16-2024 take 1 tablet by mouth once daily at bedtime as needed Trazodone 50 mg Tablet Discontinued 50 MG PO Daily at bedtime as needed for Insomnia January 18, 2024 12:00am May 16, 2024 4:34pm Start: 10-23-2022 take 100 mg by mouth once daily at bedtime Trazodone Active 100 MG PO Daily at bedtime October 22, 2022 11:00pm Start: 05-30-2021 End: 06-25-2021 take 1 tablet by mouth at bedtime Trazodone 50 mg tablet Discontinued 50 MG PO Bedtime June 18, 2021 1:13pm June 25, 2021 10:50pm Start: 12-24-2020 End: 05-02-2021 take 1 tablet by mouth once daily at bedtime as needed Trazodone 50 mg Tablet Discontinued 50 MG PO Daily at bedtime as needed for Insomnia December 24, 2020 12:00am May 02, 2021 11:13pm Completed/Discontinued Medications Medication Drug Class(es) Dates Sig (Normalized) Sig (Original) albuterol 0.833 mg/ml / ipratropium bromide 0.167 mg/ml inhalation solution (15 sources) Anticholinergic, beta2-Adrenergic Agonist Start: 07-24-2022 End: 10-09-2022 take 1 mL by inhalation every four to six hours as needed for wheezing Ipratropium-Albute rol 0.5 mg-3 mg(2.5 mg base)/3 mL solution for nebulization Discontinued 3 ML INHALATION EVERY 4-6 HOURS as needed for shortness of breath or wheezing July 24, 2022 12:00am October 09, 2022 10:21pm ARIPiprazole 5 mg oral tablet (20 sources) Atypical Antipsychotic Start: 12-18-2021 End: 10-09-2022 take 1 tablet by mouth once daily Aripiprazole (Abilify) 5 mg tablet Discontinued 5 MG PO Daily February 06, 2022 12:00am October 09, 2022 10:19pm Start: 12-18-2021 take 5 mg by mouth once daily Aripiprazole Active 5 MG PO Daily December 18, 2021 12:00am Start: 12-18-2021 End: 10-09-2022 Aripiprazole (Abilify Mainte na) 400 mg Suspension,Extended Rel Syring Discontinued 400 MG IM Q28D 0 December 18, 2021 12:00am October 09, 2022 10:19pm Start: 12-18-2021 Aripiprazole ( Abilify Maintena) 400 mg Suspension,Extended Rel Syring Active 400 MG IM Q28D 0 December 18, 2021 12:00am Start: 11-19-2017 End: 08-01-2020 take 1 tablet by mouth once daily at bedtime Aripiprazole 10 mg Tablet Discontinued 10 MG PO Daily at bedtime November 19, 2017 12:00am August 01, 2020 1:12pm Start: 10-22-2017 End: 11-19-2017 take 1 tablet by mouth once daily Aripiprazole 2 mg tablet Discontinued 2 MG PO Daily October 22, 2017 12:00am November 19, 2017 9:14am azithromycin 250 mg oral tablet (18 sources) Macrolide Antimicrobial Start: 03-17-2021 End: 04-10-2021 take 2 tablets by mouth once daily, then take 1 tablet by mouth once daily Azithromycin (Zithromax) 250 mg tablet Discontinued 250 MG PO Daily March 17, 2021 12:00am April 10, 2021 3:10am ZPAK-2 tabs day 1, the 1 tab daily for 4 days chlorproMAZINE hydrochloride 100 mg oral tablet (18 sources) Phenothiazine Start: 06-25-2017 End: 10-22-2017 take 1 tablet by mouth once daily at bedtime Chlorpromazine 100 mg Tablet Discontinued 200 MG PO Daily at bedtime 60 June 25, 2017 1:00am October 22, 2017 6:52pm Start: 06-25-2017 End: 10-22-2017 take 200 mg by mouth once daily at bedtime Chlorpromazine Discontinued 200 MG PO Daily at bedtime 60 June 25, 2017 1:00am October 22, 2017 6:52pm cholecalciferol 0.025 mg oral tablet (20 sources) Vitamin D Start: 12-18-2021 End: 10-09-2022 take 1 tablet by mouth once daily Cholecalciferol (Vitamin D3) 25 mcg (1,000 unit) Tablet Discontinued 25 MCG PO Daily December 18, 2021 12:00am October 09, 2022 10:19pm Start: 12-18-2021 take 25 ug by mouth once daily Cholecalciferol (Vitamin D3) Active 25 MCG PO Daily December 18, 2021 12:00am Start: 12-24-2020 End: 02-08-2021 take 1 tablet by mouth once daily Cholecalciferol (Vitamin D3) 25 mcg (1,000 unit) Tablet Discontinued 75 MCG PO Daily December 24, 2020 12:00am February 08, 2021 3:49am docusate sodium 100 mg oral tablet (20 sources) Start: 05-14-2017 End: 07-02-2017 take 1 tablet by mouth once daily as needed for constipation Docusate Sodium (Stool Softener) 100 mg Tablet Discontinued 100 MG PO Daily as needed for Constipation May 28, 2017 5:09pm July 02, 2017 12:15pm DULoxetine 60 mg delayed release oral capsule (20 sources) Serotonin and Norepinephrine Reuptake Inhibitor Start: 05-30-2021 End: 06-18-2021 take 1 capsule by mouth once daily Duloxetine (Cymbalta) 60 mg capsule,delayed release(DR/EC) Discontinued 60 MG PO Daily June 07, 2021 11:46pm June 18, 2021 1:14pm fludrocortisone acetate 0.1 mg oral tablet (20 sources) Start: 05-14-2017 End: 07-02-2017 take 1 tablet by mouth once daily Fludrocortisone 0.1 mg Tablet Discontinued 0.1 MG PO Daily May 28, 2017 5:09pm July 02, 2017 12:15pm 1 ml haloperidol 5 mg/ml prefilled syringe (1 source) Typical Antipsychotic Start: 06-15-2024 End: 06-15-2024 5 mg, IntraMUSCular, ONCE, 1 dose, On Fri06/15/24 at 1515, IM route of administration preferred. Because of the risk of TdP and QT prolongation, ECG monitoring is recommended if haloperidol is given IV. hydrOXYzine pamoate 50 mg oral capsule (20 sources) Antihistamine Start: 01-18-2024 End: 05-16-2024 take 1 capsule by mouth every six hours as needed for anxiety Hydroxyzine Pamoate 50 mg Capsule Discontinued 50 MG PO Q6H as needed for Anxiety January 18, 2024 12:00am May 16, 2024 4:33pm Start: 10-23-2022 take 50 mg by mouth every six hours Hydroxyzine Pamoate Active 50 MG PO Q6H October 22, 2022 11:00pm Start: 02-06-2022 End: 07-24-2022 take 1 tablet by mouth twice daily Hydroxyzine Hcl 25 mg tablet Discontinued 25 MG PO Twice daily February 06, 2022 12:00am July 24, 2022 5:01pm Start: 12-18-2021 End: 10-09-2022 take 1 capsule by mouth twice daily Hydroxyzine Pamoate 25 mg Capsule Discontinued 25 MG PO Twice daily 22 11December 18, 2021 12:00am October 09, 2022 10:19pm Start: 12-18-2021 take 25 mg by mouth twice vini y Hydroxyzine Pamoate Active 25 MG PO Twice daily 22 11December 18, 2021 12:00am Start: 12-06-2021 End: 12-18-2021 take 1 capsule by mouth once daily Hydroxyzine Pamoate 25 mg capsule Discontinued 25 MG PO Daily December 06, 2021 12:00am December 18, 2021 12:53pm Start: 09-11-2021 End: 09-11-2021 Hydroxyzine Pamoate 50 mg ca psule Discontinued MG September 11, 2021 12:00am September 11, 2021 10:48pm Start: 09-11-2021 End: 09-11-2021 Hydroxyzine Pamoate Disconti nued MG September 11, 2021 12:00am September 11, 2021 10:48pm Start: 04-13-2021 End: 08-31-2021 take 1 capsule by mouth every six hours as needed for anxiety Hydroxyzine Pamoate (Vistaril) 50 mg capsule Discontinued 50 MG PO Q6H as needed for Anxiety 60 June 18, 2021 1:13pm August 31, 2021 2:51pm On Hold: Till approved by psychiatry Start: 12-24-2020 End: 05-02-2021 take 1 capsule by mouth every six hours as needed for anxiety Hydroxyzine Pamoate 25 mg Capsule Discontinued 25 MG PO Q6H as needed for Anxiety December 24, 2020 12:00am May 02, 2021 11:13pm Start: 08-26-2020 End: 10-23-2020 take 1 capsule by mouth three to four times daily as needed for nausea and vomiting Hydroxyzine Pamoate (Vistaril) 25 mg capsule Discontinued 25 MG PO 3 to 4 times per day as needed for nausea and vomiting August 26, 2020 12:00am October 23, 2020 12:15pm LORazepam 1 mg oral tablet (5 sources) Benzodiazepine Start: 09-09-2024 End: 09-09-2024 take 1 dose by mouth once 1 mg, Oral, ONCE, 1 dose, On Fri09/09/24 at 1430 Start: 07-13-2024 End: 07-13-2024 take 1 dose by mouth once 1 mg, Oral, ONCE, 1 dose, On Fri07/13/24 at 2145 Start: 07-13-2024 End: 07-13-2024 inject 1 dose intravenously once 1 mg, IntraMUSCular, ONCE, 1 dose, On Fri07/13/24 at 1845, Immediately prior to intravenous use, lorazepam Injection must be diluted with at least an equal volume of compatible solution (NS or D5W). Start: 07-13-2024 End: 07-13-2024 inject 1 dose intravenously once 1 mg, IntraMUSCular, ONCE, 1 dose, On Fri07/13/24 at 1445, Immediately prior to intravenous use, lorazepam Injection must be diluted with at least an equal volume of compatible solution (NS or D5W). Start: 06-15-2024 End: 06-15-2024 take 1 dose by mouth once 1 mg, Oral, ONCE, 1 dose, On Fri06/15/24 at 1415 lurasidone hydrochloride 80 mg oral tablet (15 sources) Atypical Antipsychotic Start: 09-20-2024 End: 01-04-2025 take 1 tablet by mouth once daily Lurasidone 80 mg Tablet Discontinued 80 MG PO Daily with supper September 20, 2024 12:00am January 04, 2025 10:46am Start: 09-09-2024 take 1 dose by mouth once at mealtime 20 mg, Oral, ONCE, 1 dose, On Fri09/09/24 at 1245, Administer with food. Start: 07-18-2024 End: 09-20-2024 take 1 tablet by mouth once daily Lurasidone 40 mg Tablet Discontinued 40 MG PO Daily with supper 14 July 18, 2024 1:00am September 20, 2024 12:05pm Start: 06-18-2024 End: 07-18-2024 take 1 tablet by mouth once daily Lurasidone 20 mg Tablet Discontinued 20 MG PO Daily with supper 30 June 18, 2024 1:00am July 18, 2024 11:33am End: 01-05-2025 lurasidone (LATUDA) 40 mg ta blet Take 20 mg by mouth. 01/05/2025 Discontinued take 0.5 tablet by m outh once daily lurasidone (LATUDA) 40 MG TABS tablet Take 0.5 tablets by mouth Daily with supper Active metoprolol tartrate 100 mg oral tablet (20 sources) beta-Adrenergic Jonna Start: 05-14-2017 End: 12-13-2024 take 1 tablet by mouth twice daily Metoprolol Tartrate 100 mg tablet Discontinued 100 MG PO Twice daily 60 July 02, 2017 1:00am November 19, 2017 9:14am mirtazapine 15 mg oral tablet (20 sources) Start: 12-06-2021 End: 12-18-2021 take 7.5 mg by mouth at bedtime Mirtazapine 15 mg tablet Discontinued 7.5 MG PO Bedtime December 06, 2021 8:39pm December 18, 2021 12:53pm Start: 12-06-2021 End: 12-18-2021 take 7.5 mg by mouth at bedtime Mirtazapine Discontinu ed 7.5 MG PO Bedtime December 06, 2021 8:39pm December 18, 2021 12:53pm Start: 09-17-2021 End: 12-06-2021 take 1 tablet by mouth at bedtime Mirtazapine 15 mg Tablet Discontinued 15 MG PO Bedtime September 17, 2021 12:00am December 06, 2021 8:39pm Start: 09-04-2021 End: 09-17-2021 take 1 tablet by mouth at bedtime Mirtazapine 7.5 mg tablet Discontinued 7.5 MG PO Bedtime September 11, 2021 12:00am September 17, 2021 11:16am Start: 06-18-2021 End: 08-31-2021 take 1 tablet by mouth once daily at bedtime Mirtazapine 15 mg Tablet Discontinued 15 MG PO Daily at bedtime June 18, 2021 1:00am August 31, 2021 3:42am Start: 05-30-2021 End: 06-18-2021 take 1 tablet by mouth once daily at bedtime Mirtazapine 7.5 mg Tablet Discontinued 7.5 MG PO Daily at bedtime May 30, 2021 1:00am June 18, 2021 1:14pm Start: 04-10-2021 End: 04-13-2021 take 2 tablets by mouth once daily at bedtime Mirtazapine 7.5 mg tablet Discontinued 15 MG PO Daily at bedtime April 10, 2021 3:14am April 13, 2021 11:52am Start: 04-10-2021 End: 04-13-2021 take 15 mg by mouth once daily at bedtime Mirtazapine Discontinued 15 MG PO Daily at bedtime April 10, 2021 3:14am April 13, 2021 11:52am Start: 12-24-2020 End: 04-10-2021 take 1 tablet by mouth once daily at bedtime Mirtazapine 7.5 mg Tablet Discontinued 7.5 MG PO Daily at bedtime December 24, 2020 12:00am April 10, 2021 3:14am Start: 09-21-2020 End: 12-17-2020 take 1 tablet by mouth once daily at bedtime Mirtazapine (Remeron) 15 mg tablet Discontinued 15 MG PO Daily at bedtime October 24, 2020 12:00am December 17, 2020 2:06pm Further refills per primary care Start: 11-19-2017 End: 08-01-2020 Mirtazapine 30 mg Tablet Discontinued 45 MG PO Daily at bedtime November 19, 2017 12:00am August 01, 2020 1:12pm Start: 11-19-2017 End: 08-01-2020 take 45 mg by mouth once daily at bedtime Mirtazapine Discontinued 45 MG PO Daily at bedtime November 19, 2017 12:00am August 01, 2020 1:12pm Multivitamin With Folic Acid (Thera) 400 mcg Tablet (18 sources) Start: 11-19-2017 End: 08-01-2020 take 1 [...] 19, 2017 12:00am August 01, 2020 1:12pm naltrexone hydrochloride 50 mg oral tablet (11 sources) Opioid Antagonist Start: 09-20-2024 End: 12-31-2024 take 1 tablet by mouth twice daily Naltrexone 50 mg Tablet Discontinued 50 MG PO Twice daily 60 September 20, 2024 12:00am December 31, 2024 9:58pm Start: 05-24-2024 End: 09-20-2024 take 1 tablet by mouth once daily Naltrexone 50 mg Tablet Discontinued 50 MG PO Daily May 24, 2024 1:00am September 20, 2024 12:05pm End: 12-13-2024 naltrexone (REVIA) 50 mg tab let Take 0.5 tablets (25 mg total) by mouth. 12/13/2024 Discontinued omeprazole 20 mg delayed release oral capsule (20 sources) Proton Pump Inhibitor Start: 12-06-2021 End: 10-09-2022 take 1 capsule by mouth once daily Omeprazole 20 mg capsule,delayed release(DR/EC) Discontinued 20 MG PO Daily December 06, 2021 12:00am October 09, 2022 10:19pm Start: 11-19-2017 End: 08-01-2020 take 1 capsule by mouth once daily Omeprazole 20 mg Capsule,Delayed Release(Dr/Ec) Discontinued 20 MG PO Daily November 19, 2017 12:00am August 01, 2020 1:12pm PARoxetine hydrochloride 20 mg oral tablet (20 sources) Serotonin Reuptake Inhibitor Start: 12-18-2021 End: 10-09-2022 take 1 tablet by mouth once daily Paroxetine Hcl 20 mg tablet Discontinued 20 MG PO Daily February 06, 2022 12:00am October 09, 2022 10:19pm Start: 12-18-2021 take 20 mg by mouth once daily in the morning Paroxetine Hcl Active 20 MG PO Every morning December 18, 2021 12:00am predniSONE 20 mg oral tablet (20 sources) Start: 04-01-2024 End: 05-24-2024 take 3 tablets by mouth once daily, then take 2 tablets by mouth once daily, then take 1 tablet by mouth once daily Prednisone 20 mg tablet Discontinued 20 MG PO .COMPLEX April 01, 2024 1:00am May 24, 2024 12:28pm Take 3 tabs po daily x 3 days, then take 2 tabs po daily x 3 days, then take 1 tab po daily x 3 days. Start: 07-24-2022 End: 10-09-2022 take 1 tablet by mouth once daily Prednisone 50 mg tablet Discontinued 50 MG PO Daily 4 July 24, 2022 12:00am October 09, 2022 10:19pm Start: 2021 End: 12-06-2021 take 2 tablets by mouth once daily in the morning Prednisone 20 mg tablet Discontinued 40 MG PO Every morning 02 13September 27, 2021 12:00am December 06, 2021 4:47pm administer with food or milk Start: 2021 End: 12-06-2021 take 40 mg by mouth once daily in the morning Prednisone Discontinued 40 MG PO Every morning 02 13September 27, 2021 12:00December 06, 2021 4:47pm administer with food or milk Start: 03-17-2021 End: 04-10-2021 take 1 tablet by mouth once daily Prednisone 50 mg tablet Discontinued 50 MG PO Daily 09 13March 17, 2021 12:00am April 10, 2021 3:11am promethazine hydrochloride 25 mg oral tablet (20 sources) Phenothiazine Start: 05-02-2021 End: 05-21-2021 take 1 tablet by mouth every six hours as needed for nausea Promethazine 25 mg Tablet Discontinued 25 MG PO Q6H as needed for Nausea May 02, 2021 1:00am May 21, 2021 2:38pm Start: 08-26-2020 End: 08-27-2020 take 1 tablet by mouth every six hours as needed for nausea and vomiting Promethazine 25 mg tablet Discontinued 25 MG PO Q6H as needed for nausea and vomiting August 26, 2020 12:00am August 27, 2020 12:38pm sertraline 50 mg oral tablet (20 sources) Serotonin Reuptake Inhibitor Start: 04-10-2021 End: 05-30-2021 take 2 tablets by mouth once daily in the morning Sertraline 50 mg tablet Discontinued 100 MG PO Every morning April 10, 2021 3:13am May 30, 2021 3:08pm Start: 04-10-2021 End: 05-30-2021 take 100 mg by mouth once daily in the morning Sertraline Discontinued 100 MG PO Every morning April 10, 2021 3:13am May 30, 2021 3:08pm Start: 12-24-2020 End: 04-10-2021 take 1 tablet by mouth once daily in the morning Sertraline 50 mg Tablet Discontinued 50 MG PO Every morning December 24, 2020 12:00am April 10, 2021 3:13am Start: 10-24-2020 End: 12-17-2020 take 1 tablet by mouth every twenty-four hours Sertraline (Zoloft) 50 mg tablet Discontinued 50 MG PO Q24H October 24, 2020 12:00am December 17, 2020 2:06pm Further refills per primary care Start: 09-21-2020 End: 10-23-2020 take 1 tablet by mouth once daily Sertraline (Zoloft) 25 mg Tablet Discontinued 25 MG PO Daily September 21, 2020 12:00am October 23, 2020 12:15pm Start: 10-22-2017 End: 08-01-2020 take 1 tablet by mouth once daily Sertraline 100 mg Tablet Discontinued 100 MG PO Daily November 19, 2017 12:00am August 01, 2020 1:13pm sulfamethoxazole 800 mg / trimethoprim 160 mg oral tablet (18 sources) Dihydrofolate Reductase Inhibitor Antibacterial, Sulfonamide Antimicrobial Start: 12-18-2021 End: 07-24-2022 take 1 tablet by mouth twice daily Sulfamethoxazole-Trimethoprim 800-160 mg Tablet Discontinued 1 TAB PO Twice daily December 18, 2021 12:00am July 24, 2022 5:01pm Start: 12-18-2021 take 1 tablet by anayeli th twice daily Sulfamethoxazole-Trimethoprim Active 1 T AB PO Twice daily 2 December 18, 2021 12:00am topiramate 50 mg oral tablet (18 sources) Start: 06-25-2017 End: 10-22-2017 take 2 tablets by mouth twice daily Topiramate 50 mg Tablet Discontinued 100 MG PO Twice daily 60 June 25, 2017 1:00am October 22, 2017 6:52pm Start: 06-25-2017 End: 10-22-2017 take 100 mg by mouth twice daily Topiramate Discontinued 100 MG PO Twice daily 60 June 25, 2017 1:00am October 22, 2017 6:52pm 24 hr venlafaxine 150 mg extended release oral capsule (18 sources) Serotonin and Norepinephrine Reuptake Inhibitor Start: 05-28-2017 End: 06-25-2017 take 1 capsule by mouth once daily Venlafaxine 150 mg Capsule,Extended Release 24hr Discontinued 150 MG PO Daily May 28, 2017 1:00am June 25, 2017 9:00am vilazodone hydrochloride 20 mg oral tablet (20 sources) Start: 06-18-2021 End: 09-04-2021 take 1 tablet by mouth once daily Vilazodone (Viibryd) 20 mg tablet Discontinued 10 MG PO Daily with supper August 31, 2021 2:49pm September 04, 2021 11:25am vortioxetine 5 mg oral tablet (20 sources) Start: 09-17-2021 End: 12-18-2021 take 1 tablet by mouth once daily Vortioxetine (Trintellix) 5 mg tablet Discontinued 5 MG PO Daily with supper December 06, 2021 8:39pm December 18, 2021 12:53pm Start: 09-04-2021 End: 09-17-2021 take 1 tablet by mouth at bedtime Vortioxetine (Trintellix) 10 mg tablet Discontinued 10 MG PO Bedtime September 11, 2021 12:00am September 17, 2021 11:16am ziprasidone 20 mg oral capsule (20 sources) Atypical Antipsychotic Start: 09-04-2021 End: 12-18-2021 Ziprasidone Hcl (Geodon) 20 mg Capsule Discontinued 20 MG PO 1700 September 11, 2021 12:00am December 18, 2021 12:53pm take with meal at least 500 calories Start: 06-18-2021 End: 09-04-2021 take 1 capsule by mouth twice daily Ziprasidone Hcl 20 mg Capsule Discontinued 20 MG PO Twice daily 60 June 18, 2021 1:00am September 04, 2021 11:25am On Hold: Till approved by psychiatry Start: 05-30-2021 End: 06-18-2021 take 1 capsule by mouth once daily at bedtime Ziprasidone Hcl (Geodon) 20 mg capsule Discontinued 20 MG PO Daily at bedtime June 07, 2021 11:46pm June 18, 2021 1:14pm Problems Active Problems Problem Classification Problem Date Documented Da te Episodic/Chronic Abdominal pain (20 sources) Left flank pain; Translations: [Unspecified abdominal pain] 02-08-2021 Episodic Acute and unspecified renal failure (18 sources) Injury of kidney; Translations: [Acute kidney failure, unspecified] 06-25-2017 Episodic Administrative/social admission (20 sources) Patient encounter status; Translations: [Persons encountering health services in other specified circumstances] Onset: 3 06-02-2021 Episodic Anxiety disorders (20 sources) Anxiety; Translations: [Anxiety disorder, unspecified] Onset: 8 Resolved: 5 08-27-2020 Chronic Asthma (20 sources) Exacerbation of asthma; Translations: [Unspecified asthma with (acute) exacerbation] Onset: 2 11-06-2021 Chronic Cardiac dysrhythmias (19 sources) Postural orthostatic tachycardia syndrome ; Translations: [Other specified cardiac arrhythmias] Onset: 2 06-25-2017 Chronic Cardiac dysrhythmias (18 sources) Tachycardia; Translations: [Tachycardia, unspecified] 10-23-2020 Episodic Conditions associated with dizziness or vertigo (20 sources) Dizziness; Translations: [Dizziness and giddiness] 12-17-2020 Episodic Diabetes mellitus without complication (5 sources) Abnormal glucose level; Translations: [Other abnormal glucose] Onset: 5 12-13-2024 Episodic Disorders of lipid metabolism (2 sources) Hypercholesterolemia; Translations: [Pure hypercholesterolemia, unspecified] Onset: 5 12-13-2024 Chronic Esophageal disorders (18 sources) Gastroesophageal reflux disease; Translations: [Gastro-esophageal reflux disease without esophagitis] 06-25-2017 Chronic Essential hypertension (1 source) Essential (primary) hypertension; Translations: [ESSENTIAL PRIMARY HYPERTENSION] Onset: 3 Chronic Fluid and electrolyte disorders (20 sources) Dehydration; Translations: [Dehydration] Onset: 2 10-23-2020 Episodic Malaise and fatigue (18 sources) Asthenia; Translations: [Weakness] 05-02-2021 Episodic Miscellaneous mental health disorders (20 sources) Eating disorder; Translations: [Eating disorder, unspecified] Onset: 2 12-06-2021 Chronic Comment on above: bulimia/anorexia Mood disorders (9 sources) Mood disorders; Translations: [Depression, unspecified] Onset: 5 Resolved: 5 09-22-2024 Nausea and vomiting (20 sources) Nausea and vomiting; Translations: [Nausea with vomiting, unspecified] 05-02-2021 Episodic Nervous system congenital anomalies (1 source) 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]; Translations: [FAMILIAL DYSAUTONOMIA RD-DAY] Onset: 3 Chronic Nonspecific chest pain (9 sources) Chest pain; Translations: [Chest pain, unspecified] 03-21-2023 Episodic Nutritional deficiencies (1 source) Unspecified severe protein-calorie malnutrition; Translations: [Severe protein-calorie malnutrition (HCC)] Onset: 4 Chronic Other and unspecified benign neoplasm (7 sources) Lipoma of left lower limb; Translations: [Benign lipomatous neoplasm of skin and subcutaneous tissue of left leg] Onset: 5 12-13-2024 Episodic Other and unspecified benign neoplasm (2 sources) Benign lipomatous neoplasm of skin and subcutaneous tissue of left leg; Translations: [Benign lipomatous neoplasm of skin and subcutaneous tissue of left leg] Onset: 5 Episodic Other congenital anomalies (1 source) Congenital malformations of other endocrine glands; Translations: [CONGEN MALFORM OTH ENDOCRINE GLANDS] Onset: 3 Chronic Other gastrointestinal disorders (1 source) Gastrostomy status; Translations: [GASTROSTOMY STATUS] Onset: 2 Chronic Other gastrointestinal disorders (18 sources) Constipation; Translations: [Constipation, unspecified] 02-08-2021 Episodic Other gastrointestinal disorders (12 sources) Diarrhea; Translations: [Diarrhea, unspecified] 01-31-2023 Episodic Other hereditary and degenerative nervous system conditions (2 sources) Other specified forms of tremor; Translations: [Other specified forms of tremor] Onset: 2 Chronic Other injuries and conditions due to external causes (1 source) Abrasion and/or friction burn of multiple sites; Translations: [Unspecified multiple injuries, initial encounter] 07-13-2024 Episodic Other injuries and conditions due to external causes (1 source) Unspecified multiple injuries, initial encounter; Translations: [Unspecified multiple injuries, initial encounter] Onset: 5 Episodic Other lower respiratory disease (3 sources) Shortness of breath; Translations: [SHORTNESS OF BREATH] Onset: 3 Episodic Other lower respiratory disease (6 sources) Acute lower respiratory tract infection; Translations: [Unspecified acute lower respiratory infection] 04-01-2024 Episodic Other lower respiratory disease (3 sources) Unspecified acute lower respiratory infection; Translations: [Other diseases of respiratory system, not elsewhere classified] 04-01-2024 Episodic Other nervous system disorders (18 sources) Disorder of autonomic nervous system; Translations: [...] Chronic Other nutritional; endocrine; and metabolic disorders (1 source) Other obesity due to excess calories; Translations: [Other obesity due to excess calories] Onset: 5 Chronic Other nutritional; endocrine; and metabolic disorders (1 source) Body mass index (BMI) 30.0-30.9, adult; Translations: [Body mass index (BMI) 30.0-30.9, adult] Onset: 5 Chronic Other nutritional; endocrine; and metabolic disorders (1 source) Obesity caused by energy imbalance; Translations: [Class 1 obesity due to excess calories without serious comorbidity with body mass index (BMI) of 30.0 to 30.9 in adult] 12-22-2024 Chronic Other nutritional; endocrine; and metabolic disorders (14 sources) Weight loss; Translations: [Abnormal weight loss] 10-23-2020 Episodic Other nutritional; endocrine; and metabolic disorders (4 sources) Weight decreased; Translations: [Abnormal weight loss] 10-23-2020 Episodic Other screening for suspected conditions (not mental disorders or infectious disease) (2 sources) Other specified abnormal findings of blood chemistry; Translations: [Encounter for screening for lipoid disorders] Onset: 2 Episodic Other skin disorders (1 source) Epidermal cyst; Translations: [Epidermal cyst] Onset: 5 Episodic Pneumonia (except that caused by tuberculosis or sexually transmitted disease) (18 sources) Atypical pneumonia; Translations: [Pneumonia, unspecified organism] 03-17-2021 Episodic Poisoning by other medications and drugs (18 sources) Poisoning by unspecified drugs, medicaments and biological substances, accidental (unintentional), initial encounter; Translations: [Acute drug overdose] 08-31-2021 Episodic Poisoning by psychotropic agents (1 source) Neuroleptic overdose; Translations: [Poisoning by other antipsychotics, neuroleptics, and major tranquilizers] 05-13-2022 Episodic Residual codes; unclassified (1 source) Restlessness and agitation; Translations: [Restlessness and agitation] Onset: 5 Chronic Residual codes; unclassified (1 source) Body mass index (BMI) 22.0-22.9, adult; Translations: [Body mass index [BMI] 22.0-22.9, adult] Onset: 2 Episodic Residual codes; unclassified (1 source) Insomnia, unspecified; Translations: [Insomnia, unspecified] Onset: 2 Episodic Screening and history of mental health and substance abuse codes (20 sources) History of drug abuse; Translations: [Personal history of other mental and behavioral disorders] Onset: 5 02-08-2021 Episodic Substance-related disorders (20 sources) Cannabis abuse; Translations: [Cannabis abuse, uncomplicated] Onset: 2 06-27-2021 Chronic Suicide and intentional self-inflicted injury (20 sources) Poisoning by unspecified drugs, medicaments and biological substances, intentional self-harm, initial encounter; Translations: [Intentional drug overdose] Onset: 8 Resolved: 5 09-11-2021 Episodic Tuberculosis (6 sources) Tuberculosis of vertebral column; Translations: [Tuberculosis of spine] Onset: 5 12-13-2024 Episodic Unclassified (1 source) Marijuana abuse 02-24-2022 Unclassified [...] W/AND (SUSP) EXPOS COVID-19] Onset: 2 Unclassified (3 sources) Suicidal; Translations: [Suicidal] Onset: 5 Unclassified (1 source) Obesity, class 1; Translations: [Obesity, class 1] Onset: 5 Unclassified (1 source) Suspicious Skin Lesion Onset: 5 Unclassified (1 source) Establish Care Onset: 5 Unclassified (1 source) Annual Exam Onset: 5 Unclassified (1 source) Please call if you need to reschedule: Unclassified (2 sources) Call with any medical concerns. Unclassified (1 source) key account manager will call you on the next day between 8am & 5pm. If you miss this call please call back as soon as possible. Unclassified (1 source) Mental health eval Onset: 5 Past or Other Problems Problem Classification Problem Date Documented Da te Episodic/Chronic Influenza (1 source) Influenza due to other identified influenza virus with other respiratory manifestations; Translations: [FLU D/T OTH ID FLU VIR OTH RSP MANF] Onset: 02-07-2022 Episodic Miscellaneous mental health disorders (6 sources) Thoughts of self harm; Translations: [Other symptoms and signs involving emotional state] Onset: 07-04-2017 Resolved: 09-22-2024 09-09-2024 Episodic Mood disorders (20 sources) Major depressive disorder; Translations: [Major depressive disorder, single episode, unspecified] Onset: 07-04-2017 Resolved: 09-22-2024 05-21-2021 Chronic Other aftercare (3 sources) Other emt intermediate (current) drug therapy; Translations: [Other emt intermediate (current) drug therapy] Onset: 02-07-2022 Episodic Other lower respiratory disease (1 source) Tachypnea, not elsewhere classified; Translations: [TACHYPNEA NOT ELSEWHERE CLASSIFIED] Onset: 02-07-2022 Episodic Personality disorders (20 sources) Borderline personality disorder; Translations: [Borderline personality disorder] Onset: 07-07-2017 Resolved: 09-22-2024 12-14-2021 Chronic Respiratory failure; insufficiency; arrest (adult) (1 source) Acute respiratory failure with hypoxia; Translations: [ACUTE RESPIRATORY FAIL W/HYPOXIA] Onset: 02-07-2022 Episodic Substance-related disorders (1 source) Drug withdrawal; Translations: [Drug withdrawal] Resolved: 02-24-2022 02-24-2022 Episodic Unclassified (6 sources) OTHER Onset: 09-22-2024 02-24-2022 Comment on above: OTHER Results Test Name Value Interpretation Reference Range Facil ity POCT , URINE (NUCG) on 01-11-2025 Beta HCG ( test) Ql (U) Negative Normal Negative, Indeterminate [facility] Comment on above: Performed By: #### N UCG #### [facility] ([facility]) [address] [place] [id number] VIR ECG 12 lead ECGon 01-01-2025 ECG 12 lead ECG [facility] Main [address] [address] Electrocardiograph Report Signed Patient: Roshan Willingham MR#: [id number] : 1990 Acct:[id number] Age/Sex: 34 / F ADM Date: 12/31/24 Loc: Room: [address] [place] [address] Type: ADM IN Attending Dr: Brent Simmons MD Ordering Provider: Brent Simmons MD Date of Service: 01/01/25 ECG/ECG 12 lead ECG: on antipsychotics Copies to: Test Reason : Blood Pressure : */* mmHG Vent. Rate : 59 BPM Atrial Rate : 59 BPM P-R Int : 130 ms QRS Dur : 92 ms QT Int : 410 ms P-R-T Axes : 43 43 46 degrees QTcB Int : 405 ms Sinus bradycardia with sinus arrhythmia Otherwise normal ECG When compared with ECG of 10-Sep-2024 15:40, No significant change was found Confirmed by JODI AMES MD ([id number]) on 01/01/2025 10:08:45 AM Referred By: Electronically Signed By: JODI AMES MD Transcribed By: MUS Signed By Jodi Ames MD 0 01/01/25 1008 Normal [facility] Hepatic Panelon 01-01-2025 Albumin [Mass/Vol] 4.4 g/dL Normal 3.5-5.7 [facility] Comment on above: Performed By: #### V [id number], TSH3 wRFLX, HEPATIC, LIPID #### [address] Albumin/Globulin [Mass ratio] 1.6 {ratio} Normal [facility] Comment on above: Performed By: #### V [id number], TSH3 wRFLX, HEPATIC, LIPID #### [address] ALP [Catalytic activity/Vol] 68 U/L Normal 34-104 [facility] Comment on above: Performed By: #### V [id number], TSH3 wRFLX, HEPATIC, LIPID #### [address] ALT [Catalytic activity/Vol] 15 U/L Normal 7-52 [facility] Comment on above: Performed By: #### V [id number], TSH3 wRFLX, HEPATIC, LIPID #### [address] AST [Catalytic activity/Vol] 19 U/L Normal 13-39 [facility] Comment on above: Performed By: #### V [id number], TSH3 wRFLX, HEPATIC, LIPID #### [place] [address] [place] Bilirubin [Mass/Vol] 0.5 mg/dL Normal 0.3-1.0 [facility] Comment on above: Performed By: #### V [id number], TSH3 wRFLX, HEPATIC, LIPID #### [place] [address] [place] Bilirubin,Indirect 0.5 mg/dL Normal [facility] Comment on above: Performed By: #### V [id number], TSH3 wRFLX, HEPATIC, LIPID #### [place] [address] [place] Bilirubin.indirect [Mass/Vol] 0.00 mg/dL Low 0.03-0.18 [facility] Comment on above: Result Comment: If t he DBIL is less than 0.1, IBIL is not able to be calculated. Performed By: #### V [id number], TSH3 wRFLX, HEPATIC, LIPID #### [address] [address] [place] Globulin (S) [Mass/Vol] 2.8 g/dL Normal [facility] Comment on above: Performed By: #### V [id number], TSH3 wRFLX, HEPATIC, LIPID #### [facility] [address] Protein [Mass/Vol] 7.2 g/dL Normal 6.4-8.9 [facility] Comment on above: Performed By: #### V [id number], TSH3 wRFLX, HEPATIC, LIPID #### [facility] [address] Lipid Panelon 01-01-2025 Cholesterol [Mass/Vol] 183 mg/dL Normal 140-200 [facility] Comment on above: Result Comment: Chol less than 200 mg/dl low risk Chol 201-239 mg/dl borderline risk Chol 240 mg/dl and greater high risk Performed By: #### V [id number], TSH3 wRFLX, HEPATIC, LIPID #### [facility] [address] [place] [address] Cholesterol in HDL [Mass/Vol] 61 mg/dL Normal 23-92 [facility] Comment on above: Result Comment: HDL CHOL ATP-III CLASSIFICATION Cardiovascular Risk HDL > or equal to 60 mg/dL LOW HDL < 40 mg/dL HIGH Performed By: #### V [id number], TSH3 wRFLX, HEPATIC, LIPID #### [facility] [address] [place] [address] Cholesterol.total/Chol esterol in HDL [Mass ratio] 3.0 {ratio} Normal <5.0 [facility] Comment on above: Performed By: #### V [id number], TSH3 wRFLX, HEPATIC, LIPID #### [facility] [address] LDL Cholesterol,Calculated 102 mg/dL High 0-100 [facility] Comment on above: Result Comment: LDL ATP III CLASSIFICATION LDL less than 100 mg/dL Optimal LDL 100-129 mg/dL Near or above optimal LDL 130-159 mg/dL Borderline high LDL 160-189 mg/dL High LDL greater than 189 mg/dL Very high Performed By: #### V [id number], TSH3 wRFLX, HEPATIC, LIPID #### [address] Triglyceride w/Reflex 98 mg/dL Normal 0-149 [facility] Comment on above: Result Comment: TRIG ATP III CLASSIFICATION TRIG less than 150 mg/dL Normal TRIG 150-199 mg/dL Borderline high TRIG 200-500 mg/dL High TRIG greater than 500 mg/dL Very high Standard traceable to the Center for Disease Conrtrol and Prevention (CDC) test method. Performed By: #### V [id number], TSH3 wRFLX, HEPATIC, LIPID #### [address] VLDL CHOLESTEROL 19 mg/dL Normal [facility] Comment on above: Performed By: #### V [id number], TSH3 wRFLX, HEPATIC, LIPID #### [address] Thyroid Stim Hormone w/Rflxo n 01-01-2025 Thyroid Stim Hormone w/Rflx 3.88 u[iU]/mL Normal 0.45-5.33 [facility] Comment on above: Performed By: #### V [id number], TSH3 wRFLX, HEPATIC, LIPID #### [address] Vitamin D 25 Hydroxy Totalon 01-01-2025 Vitamin D 25 Hydroxy Total 31.1 ng/mL Normal 30-100 [facility] Comment on above: Result Comment: BA[place] MIN D STATUS 25(OH)VITAMIN D RANGE (ng/mL) Deficient <20 Insufficient 20 to <30 Sufficient 30 to 100 Reference: Janett MF,Dino NC, Joe HAIDER, et al. Evaluation,treatment, and prevention of vitamin D deficiency; an Endocrine Society clinical practice guideline. JCEM. 2010; 96(7):1911-30. PERFORMED BY: [place] [address] PATHOLOGIST [employer] SUSAN JONES M.D. Performed By: #### V [id number], TSH3 wRFLX, HEPATIC, LIPID #### [address] [place] [address] [facility] ACETAMINOPHEN LEVELon 2024 Acetaminophen [Mass/Vol] 3.5 ug/mL Low 10.0-30.0 [facility] Comment on above: Order Comment: Refer ence ranges are for therapeutic limits. Performed By: #### A CETA #### [facility] ([address] [place] [address] VIR BASIC METABOLIC PANELon 12-11 Anion gap [Moles/Vol] 10 mmol/L Normal 5-15 [facility] Comment on above: Performed By: #### B MP #### [facility] ([address] [address] VIR Calcium [Mass/Vol] 9.6 mg/dL Normal 8.5-10.5 [facility] Comment on above: Performed By: #### B MP #### [facility] ([address] [address] VIR Chloride [Moles/Vol] 106 mmol/L Normal 98-109 [facility] Comment on above: Performed By: #### B MP #### [facility] ([address] [address] VIR CO2 [Moles/Vol] 23 mmol/L Normal 22-32 [facility] Comment on above: Performed By: #### B MP #### [facility] ([address] [address] VIR Creatinine [Mass/Vol] 0.72 mg/dL Normal 0.40-1.00 [facility] Comment on above: Result Comment: METH OD TRACEABLE TO IDMS STANDARD Performed By: #### B MP #### [facility] ([address] [address] VIR EGFR (CKD-EPI) NON-RACE DEPENDENT >^90 Normal >=60 [facility] Comment on above: Result Comment: eGFR not reported due to non-numeric value for Creatinine. EGFR not calculated due to patient's gender not being defined. Reported eGFR is based on the CKD-EPI 202 equation that does not use a race coefficient. Performed By: #### B MP #### [facility] ([address] [place] [address] VIR Glucose [Mass/Vol] 101 mg/dL High 65-99 [facility] Comment on above: Performed By: #### B MP #### [facility] ([address] [place] [address] VIR Potassium [Moles/Vol] 4.1 mmol/L Normal 3.5-5.0 [facility] Comment on above: Performed By: #### B MP #### [address] [place] [address] VIR Sodium [Moles/Vol] 139 mmol/L Normal 134-146 [facility] Comment on above: Performed By: #### B MP #### [facility] ([address] [place] [address] VIR Urea nitrogen [Mass/Vol] 10 mg/dL Normal 5-23 [facility] Comment on above: Performed By: #### B MP #### [facility] ([address] [place] [address] VIR CBC WITH AUTO DIFFERENTIALon 12-31-2024 BASOPHILS ABSOLUTE COUNT (10*3/UL) BY AUTOMATED COUNT 0.1 10*3/uL Normal 0.0-0.2 [facility] Comment on above: Performed By: #### C BCA #### [facility] ([address] [place] [address] VIR BASOPHILS RELATIVE PERCENT BY AUTOMATED COUNT 0.5 % Normal [facility] Comment on above: Performed By: #### C BCA #### [facility] ([address] [place] [address] VIR CELLAVISION DIFFERENTIAL TYPE AUTOMATED DIFFERENTIAL Normal [facility] Comment on above: Performed By: #### C BCA #### [facility] ([address] [place] [address] VIR Eosinophils (Bld) [#/Vol] 0.2 10*3/uL Normal 0.0-0.4 [facility] Comment on above: Performed By: #### C BCA #### [facility] ([address] [place] [address] VIR EOSINOPHILS RELATIVE PERCENT BY AUTOMATED COUNT 1.3 % Normal [facility] Comment on above: Performed By: #### C BCA #### [facility] ([address] [place] [address] VIR Erythrocyte distribution width (RBC) [Ratio] 13.4 % Normal 11.5-15 [facility] Comment on above: Performed By: #### C BCA #### [facility] ([address] [place] [address] VIR Hematocrit (Bld) [Volume fraction] 45.0 % Normal 35-47 [facility] Comment on above: Performed By: #### C BCA #### [facility] ([address] [place] [address] VIR Hemoglobin (Bld) [Mass/Vol] 15.3 g/dL Normal 11.7-15.5 [facility] Comment on above: Performed By: #### C BCA #### [facility] ([address] [place] [address] VIR LYMPHOCYTES ABSOLUTE COUNT (10*3/UL) BY AUTOMATED COUNT 1.0 10*3/uL Normal 1.0-3.5 [facility] Comment on above: Performed By: #### C BCA #### [facility] ([address] [place] [address] VIR LYMPHOCYTES RELATIVE PERCENT BY AUTOMATED COUNT 8.1 % Normal [facility] Comment on above: Performed By: #### C BCA #### [facility] ([address] [address] VIR MCH (RBC) [Entitic mass] 31.2 pg Normal 27-34 [facility] Comment on above: Performed By: #### C BCA #### [facility] ([address] [address] VIR MCHC (RBC) [Mass/Vol] 34.0 g/dL Normal 32-36 [facility] Comment on above: Performed By: #### C BCA #### [facility] ([address] [address] VIR MCV (RBC) [Entitic vol] 92 fL Normal 80-100 [facility] Comment on above: Performed By: #### C BCA #### [facility] ([address] [address] VIR MONOCYTES ABSOLUTE COUNT (10*3/UL) BY AUTOMATED COUNT 0.3 10*3/uL Normal 0.0-0.9 [facility] Comment on above: Performed By: #### C BCA #### [facility] ([address] [address] VIR MONOCYTES RELATIVE PERCENT BY AUTOMATED COUNT 2.8 % Normal [facility] Comment on above: Performed By: #### C BCA #### [facility] ([address] [address] VIR NEUTROPHILS ABSOLUTE COUNT BY AUTOMATED COUNT 10.3 10*3/uL High 1.5-6.6 [facility] Comment on above: Performed By: #### C BCA #### [facility] ([address] [address] VIR NEUTROPHILS RELATIVE PERCENT BY AUTOMATED COUNT 87.3 % Normal [facility] Comment on above: Performed By: #### C BCA #### [facility] ([address] [place] [address] VIR Platelet mean volume (Bld) [Entitic vol] 9.5 fL Normal 7-12 [facility] Comment on above: Performed By: #### C BCA #### [facility] ([address] [address] VIR Platelets (Bld) [#/Vol] 279 10*3/uL Normal 150-450 [facility] Comment on above: Performed By: #### C BCA #### [facility] ([address] [address] VIR RBC COUNT 4.89 X10E12/L Normal 3.8-5.2 [facility] Comment on above: Performed By: #### C BCA #### [facility] ([address] [address] VIR WBC (Bld) [#/Vol] 11.8 10*3/uL High 4-11 [facility] Comment on above: Performed By: #### C BCA #### [facility] ([address] [address] VIR DRUG SCREEN, URINEon 025 AMPHETAMINE/METHAMP Negative Normal Negative [facility] Comment on above: Order Comment: Confi rmation available upon request. Result Comment: AMPH /METH screening cut off = 1000 ng/mL Performed By: #### D BULL #### [facility] ([address] [address] VIR BARBITURATES Negative Normal Negative [facility] Comment on above: Order Comment: Confi rmation available upon request. Result Comment: Yisel iturates screening cut off value = 200 ng/mL Performed By: #### D BULL #### [facility] ([address] [address] VIR BENZODIAZEPINES Negative Normal Negative [facility] Comment on above: Order Comment: Confi rmation available upon request. Result Comment: Luca odiazepines screening cut off value = 200 ng/mL Performed By: #### D BULL #### [facility] ([address] [address] VIR CANNABINOIDS Positive Abnormal Negative [facility] Comment on above: Order Comment: Confi rmation available upon request. Result Comment: Hi abinoids/THC screening cut off value = 50 ng/mL Performed By: #### D BULL #### [facility] ([place] [address] VIR COCAINE METABOLITE Negative Normal Negative [facility] Comment on above: Order Comment: Confi rmation available upon request. Result Comment: Coca ine screening cut off value = 300 ng/mL Performed By: #### D BULL #### [facility] ([place] [address] VIR ECSTASY Negative Normal Negative [facility] Comment on above: Order Comment: Confi rmation available upon request. Result Comment: Ecst asy screening cut off value = 500 ng/mL Performed By: #### D BULL #### [facility] ([place] [address] VIR METHADONE Negative Normal Negative [facility] Comment on above: Order Comment: Confi rmation available upon request. Result Comment: Meth adone screening cut off value = 300 ng/mL. Performed By: #### D BULL #### [facility] ([place] [address] VIR OPIATES Negative Normal Negative [facility] Comment on above: Order Comment: Confi rmation available upon request. Result Comment: Opia renny screening cut off value = 300 ng/mL This test is used for the detection of codeine, hydrocodone (>1000 ng/mL), morphine and hydromorphone (>900 ng/mL) in urine. Performed By: #### D BULL #### [facility] ([address] [place] [address] VIR OXYCODONE Negative Normal Negative [facility] Comment on above: Order Comment: Confi rmation available upon request. Result Comment: Oxyc odone screening cut off value = 300 ng/mL This test is used for the detection of oxycodone and oxymorphone in urine. Performed By: #### D BULL #### [facility] ([address] [place] [address] VIR PHENCYCLIDINE Negative Normal Negative [facility] Comment on above: Order Comment: Confi rmation available upon request. Result Comment: Phen cyclidine screening cut off value = 25 ng/mL Performed By: #### D BULL #### [address] [address] VIR ETHANOLon 12-31-2024 Ethanol [Mass/Vol] mg/dL Normal <=0.080 [facility] Comment on above: Result Comment: This report is intended for use in clinical monitoring or management of patients. Performed By: #### A LCO #### [address] [address] VIR POCT NURSING URINE MACROSCOP IC UAon 12-31-2024 BILIRUBIN BRANDI Negative Normal Negative [facility] Comment on above: Performed By: #### N UM #### [address] [address] VIR BLOOD/HGB BRANDI Negative Normal Negative [facility] Comment on above: Performed By: #### N UM #### [address] [address] VIR GLUCOSE BRANDI Negative Normal Negative [facility] Comment on above: Performed By: #### N UM #### [address] [place] [address] VIR KETONES BRANDI Negative Normal Negative [facility] Comment on above: Performed By: #### N UM #### [facility] ([address] [place] [address] VIR LEUKOCYTE ESTERASE BRANDI Negative Normal Negative [facility] Comment on above: Performed By: #### N UM #### [facility] ([address] [place] [address] VIR NITRITE BRANDI Negative Normal Negative [facility] Comment on above: Performed By: #### N UM #### [facility] ([address] [place] [address] VIR PH BRANDI 7.0 Normal 5.0, 6.0, 6.5, 7.0, 7.5, 8.0, 8.5, 5.5 [facility] Comment on above: Performed By: #### N UM #### [facility] ([address] [place] [address] VIR PROTEIN BRANDI Negative Normal Negative [facility] Comment on above: Performed By: #### N UM #### [facility] ([address] [place] [address] VIR SPECIFIC GRAVITY BRANDI 1.015 Normal 1.010, 1.015, 1.020, 1.025 [facility] Comment on above: Performed By: #### N UM #### [facility] ([address] [place] [address] VIR UROBILINOGEN BRANDI 0.2 E.U./dL [facility] Comment on above: Performed By: #### N UM #### [facility] ([address] [place] [address] VIR POCT , URINE (NUCG) on 12-31-2024 Beta HCG ( test) Ql (U) Negative Normal Negative, Indeterminate [facility] Comment on above: Performed By: #### N UCG #### [facility] ([facility]) [address] [place] [address] VIR SALICYLATE LEVELon SALICYLATE <^4.0 Normal 2.0-25.0 [facility] Comment on above: Order Comment: Refer ence ranges are for therapeutic limits. Performed By: #### S ALI #### [facility] ([facility]) [address] [place] [address] VIR US EXT NON-VASC LT LIMITEDon 12-29-2024 US EXT NON-VASC LT LIMITED US EXT NON-VASC LT LIMITED Ultrasound extremity nonvascular Limited left History: Left anterior lower leg lump x10-15 years Comparison: None Technique: Static and dynamic sonographic images of the left lower anterior leg acquired. Findings: Within the subcutaneous tissues of the anterior lower leg is a well-circumscribed hypoechoic structure with internal heterogeneous echogenic debris. No internal or peripheral vascularity visualized by color flow. Impression: * Sonographic finding of the lower anterior leg is suspected to is indeterminate and could possibly represent a chronic organized hematoma or seroma; however, underlying low-grade neoplastic is possible as well. Recommend MRI without and with contrast for further assessment.. Approved by Anthony Escudero MD on 12/29/2024 10:11 AM IDell MD have personally reviewed the image(s) and agree with and/or edited the report Finalized by Dell Dumont MD on 12/29/2024 12:43 PM Normal [facility] CBC WITH AUTO DIFFERENTIALon 12-13-2024 BASOPHILS ABSOLUTE COUNT (10*3/UL) BY AUTOMATED COUNT 0.1 10*3/uL Normal 0.0-0.2 [facility] Comment on above: Performed By: #### C BCA #### [facility] ([facility]) [address] [place] [address] VIR BASOPHILS RELATIVE PERCENT BY AUTOMATED COUNT 1.1 % Normal [facility] Comment on above: Performed By: #### C BCA #### [facility] ([facility]) [address] [place] [address] VIR CELLAVISION DIFFERENTIAL TYPE AUTOMATED DIFFERENTIAL Normal [facility] Comment on above: Performed By: #### C BCA #### [facility] ([facility]) [address] [place] [address] VIR Eosinophils (Bld) [#/Vol] 0.4 10*3/uL Normal 0.0-0.4 [facility] Comment on above: Performed By: #### C BCA #### [facility] ([facility]) [address] [place] [address] VIR EOSINOPHILS RELATIVE PERCENT BY AUTOMATED COUNT 5.1 % Normal [facility] Comment on above: Performed By: #### C BCA #### [facility] ([facility]) [address] [place] [address] VIR Erythrocyte distribution width (RBC) [Ratio] 13.8 % Normal 11.5-15 [facility] Comment on above: Performed By: #### C BCA #### [facility] ([facility]) [address] [place] [address] VIR Hematocrit (Bld) [Volume fraction] 42.2 % Normal 35-47 [facility] Comment on above: Performed By: #### C BCA #### [facility] ([facility]) [address] [place] [address] VIR Hemoglobin (Bld) [Mass/Vol] 14.4 g/dL Normal 11.7-15.5 [facility] Comment on above: Performed By: #### C BCA #### [facility] ([facility]) [address] [place] [address] VIR LYMPHOCYTES ABSOLUTE COUNT (10*3/UL) BY AUTOMATED COUNT 1.6 10*3/uL Normal 1.0-3.5 [facility] Comment on above: Performed By: #### C BCA #### [facility] ([facility]) [address] [place] [address] VIR LYMPHOCYTES RELATIVE PERCENT BY AUTOMATED COUNT 22.8 % Normal [facility] Comment on above: Performed By: #### C BCA #### [facility] ([facility]) [address] [place] [address] VIR MCH (RBC) [Entitic mass] 31.3 pg Normal 27-34 [facility] Comment on above: Performed By: #### C BCA #### [facility] ([facility]) [address] [place] [address] VIR MCHC (RBC) [Mass/Vol] 34.2 g/dL Normal 32-36 [facility] Comment on above: Performed By: #### C BCA #### [facility] ([facility]) [address] [place] [address] VIR MCV (RBC) [Entitic vol] 91 fL Normal 80-100 [facility] Comment on above: Performed By: #### C BCA #### [facility] ([facility]) [address] [place] [address] VIR MONOCYTES ABSOLUTE COUNT (10*3/UL) BY AUTOMATED COUNT 0.3 10*3/uL Normal 0.0-0.9 [facility] Comment on above: Performed By: #### C BCA #### [facility] ([facility]) [address] [place] [address] VIR MONOCYTES RELATIVE PERCENT BY AUTOMATED COUNT 3.8 % Normal [facility] Comment on above: Performed By: #### C BCA #### [facility] ([facility]) [address] [place] [address] VIR NEUTROPHILS ABSOLUTE COUNT BY AUTOMATED COUNT 4.6 10*3/uL Normal 1.5-6.6 [facility] Comment on above: Performed By: #### C BCA #### [facility] ([facility]) [address] [place] [address] VIR NEUTROPHILS RELATIVE PERCENT BY AUTOMATED COUNT 67.2 % Normal [facility] Comment on above: Performed By: #### C BCA #### [facility] ([facility]) [address] [place] [address] VIR Platelet mean volume (Bld) [Entitic vol] 10.2 fL Normal 7-12 [facility] Comment on above: Performed By: #### C BCA #### [facility] ([facility]) [address] [place] [address] VIR Platelets (Bld) [#/Vol] 264 10*3/uL Normal 150-450 [facility] Comment on above: Performed By: #### C BCA #### [facility] ([facility]) [address] [place] [address] VIR RBC COUNT 4.61 [id number]/L Normal 3.8-5.2 [facility] Comment on above: Performed By: #### C BCA #### [facility] ([facility]) [address] [place] [address] VIR WBC (Bld) [#/Vol] 6.9 10*3/uL Normal 4-11 [facility] Comment on above: Performed By: #### C BCA #### [facility] ([facility]) [address] [place] [address] VIR CBC auto differentialon 08-0 -2024 Basophils (Bld) [#/Vol] 0.1 10*3/uL 0.0 - 0.2 10*3/uL [facility] Basophils/100 WBC (Bld) 1.1 % [facility] Differential cell count method Nom (Bld) AUTOMATED DIFFERENTIAL [facility] Eosinophils (Bld) [#/Vol] 0.4 10*3/uL 0.0 - 0.4 10*3/uL [facility] Eosinophils/100 WBC (Bld) 5.1 % [facility] Erythrocyte distribution width (RBC) [Ratio] 13.8 % 11.5 - 15 % [facility] Hematocrit (Bld) [Volume fraction] 42.2 % 35 - 47 % [facility] Hemoglobin (Bld) [Mass/Vol] 14.4 g/dL 11.7 - 15.5 g/dL [facility] Lymphocytes (Bld) [#/Vol] 1.6 10*3/uL 1.0 - 3.5 10*3/uL [facility] Lymphocytes/100 WBC (Bld) 22.8 % [facility] MCH (RBC) [Entitic mass] 31.3 pg 27 - 34 pg [facility] MCHC (RBC) [Mass/Vol] 34.2 g/dL 32 - 36 g/dL P [facility] MCV (RBC) [Entitic vol] 91 fL 80 - 100 fL [facility] Monocytes (Bld) [#/Vol] 0.3 10*3/uL 0.0 - 0.9 10*3/uL [facility] Monocytes/100 WBC (Bld) 3.8 % [facility] Neutrophils (Bld) [#/Vol] 4.6 10*3/uL 1.5 - 6.6 10*3/uL [facility] Neutrophils/100 WBC (Bld) 67.2 % [facility] Platelet mean volume (Bld) [Entitic vol] 10.2 fL 7 - 12 fL [facility] Platelets (Bld) [#/Vol] 264 10*3/uL [facility] RBC (Bld) [#/Vol] 4.61 10*6/uL [facility] WBC LM Ql (Sput) 6.9 [facility] COMPREHENSIVE METABOLIC PANE Ulises 12-13-2024 Albumin [Mass/Vol] 4.7 g/dL Normal 3.2-5.3 [facility] Comment on above: Performed By: #### C MP #### [facility] ([facility]) [address] [place] [address] VIR ALP [Catalytic activity/Vol] 63 U/L Normal 39-130 [facility] Comment on above: Performed By: #### C MP #### [facility] ([facility]) [address] [place] [address] VIR ALT [Catalytic activity/Vol] 20 U/L Normal <=31 [facility] Comment on above: Performed By: #### C MP #### [facility] ([facility]) [address] [place] [address] VIR Anion gap [Moles/Vol] 10 mmol/L Normal 5-15 [facility] Comment on above: Performed By: #### C MP #### [facility] ([facility]) [address] [place] [address] VIR AST [Catalytic activity/Vol] 20 U/L Normal <=41 [facility] Comment on above: Performed By: #### C MP #### [facility] ([facility]) [address] [place] [address] VIR Bilirubin [Mass/Vol] 0.7 mg/dL Normal 0.3-1.2 [facility] Comment on above: Performed By: #### C MP #### [facility] ([facility]) [address] [place] [address] VIR Calcium [Mass/Vol] 9.5 mg/dL Normal 8.5-10.5 [facility] Comment on above: Performed By: #### C MP #### [facility] ([facility]) [address] [place] [address] VIR Chloride [Moles/Vol] 105 mmol/L Normal 98-109 [facility] Comment on above: Performed By: #### C MP #### [facility] ([facility]) [address] [place] [address] VIR CO2 [Moles/Vol] 26 mmol/L Normal 22-32 [facility] Comment on above: Performed By: #### C MP #### [facility] ([facility]) [address] [place] [address] VIR Creatinine [Mass/Vol] 0.90 mg/dL Normal 0.40-1.00 [facility] Comment on above: Result Comment: METH OD TRACEABLE TO IDMS STANDARD Performed By: #### C MP #### [facility] ([facility]) [address] [place] [address] VIR GFR/1.73 sq M.predicted among non-blacks MDRD (S/P/Bld) [Vol rate/Area] 87 mL/min/{1.73_m2} Normal >=60 [facility] Comment on above: Result Comment: Repo rted eGFR is based on the CKD-EPI 2020 equation that does not use a race coefficient. Performed By: #### C MP #### [facility] ([facility]) [address] [place] [address] VIR Glucose [Mass/Vol] 88 mg/dL Normal 65-99 [facility] Comment on above: Performed By: #### C MP #### [facility] ([facility]) [address] [place] [address] VIR Potassium [Moles/Vol] 4.0 mmol/L Normal 3.5-5.0 [facility] Comment on above: Performed By: #### C MP #### [facility] ([facility]) [address] [place] [address] VIR Protein [Mass/Vol] 7.4 g/dL Normal 6.0-8.0 [facility] Comment on above: Performed By: #### C MP #### [facility] ([facility]) [address] [place] [address] VIR Sodium [Moles/Vol] 141 mmol/L Normal 134-146 [facility] Comment on above: Performed By: #### C MP #### [facility] ([facility]) [address] [place] [address] VIR Urea nitrogen [Mass/Vol] 12 mg/dL Normal 5-23 [facility] Comment on above: Performed By: #### C MP #### [facility] ([facility]) [address] [place] [address] VIR Comprehensive metabolic pane ulises 12-13-2024 Albumin [Mass/Vol] 4.7 g/dL 3.2 - 5.3 g/dL Pr [facility] ALP [Catalytic activity/Vol] 63 U/L 39 - 130 U/L [facility] ALT No additional P-5'-P [Catalytic activity/Vol] 20 U/L NINF - 31 U/L [facility] Anion gap [Moles/Vol] 10 mmol/L 5 - 15 mmol/L [facility] AST [Catalytic activity/Vol] 20 U/L NINF - 41 U/L [facility] Bilirubin [Mass/Vol] 0.7 mg/dL 0.3 - 1.2 mg/dL [facility] Calcium [Mass/Vol] 9.5 mg/dL 8.5 - 10. 5 mg/dL [facility] Chloride [Moles/Vol] 105 mmol/L 98 - 109 mmol/L [facility] CO2 [Moles/Vol] 26 mmol/L 22 - 32 mmol/L [facility] Creatinine [Mass/Vol] 0.9 mg/dL 0.40 - 1.00 mg/dL [facility] Comment on above: METHOD TRACEABLE TO IDUT STANDARD EGFR Non-Race Dependent 87 - PINF [facility] Comment on above: Reported eGFR is bas ed on the CKD-EPI 2020 equation that does not use a race coefficient. Glucose [Mass/Vol] 88 mg/dL 65 - 99 mg/dL [facility] Potassium [Moles/Vol] 4 mmol/L 3.5 - 5.0 mmol/L [facility] Protein [Mass/Vol] 7.4 g/dL 6.0 - 8.0 g/dL Pr [facility] Sodium [Moles/Vol] 141 mmol/L 134 - 146 mmol/L [facility] Urea nitrogen [Mass/Vol] 12 mg/dL 5 - 23 mg/dL [facility] HEMOGLOBIN A1Con 12-13-2024 Glucose [Mass/Vol] 105 mg/dL Normal [facility] Comment on above: Performed By: #### H A1C #### [facility] ([facility]) [address] [place] [address] VIR HbA1c (Bld) [Mass fraction] 5.3 % Normal 4.4-5.6 [facility] Comment on above: Result Comment: ADA Guidelines Result HgbA1c Normal : less than 5.7 % Prediabetes : 5.7 % to 6.4 % Diabetes : > 6.4 % Use with caution in patients with abnormal hemoglobin variants as the half-life of red blood cells and in vivo glycation rates are affected. Performed By: #### H A1C #### [facility] ([facility]) [address] [place] [address] VIR Hemoglobin A1con 12-13-2024 Average glucose Estimated from glycated hemoglobin (Bld) [Mass/Vol] 105 mg/dL [facility] HbA1c (Bld) [Mass fraction] 5.3 % 4.4 - 5.6 % [facility] Comment on above: ADA Guidelines Result HgbA1c Normal : less than 5.7 % Prediabetes : 5.7 % to 6.4 % Diabetes : > 6.4 % Use with caution in patients with abnormal hemoglobin variants as the half-life of red blood cells and in vivo glycation rates are affected. [facility] LIPID PROFILEon 12-13-2024 Cholesterol [Mass/Vol] 189 mg/dL Normal 150-200 Pr [facility] Comment on above: Performed By: #### L IPR #### [facility] ([facility]) [address] [place] [address] VIR Cholesterol in HDL [Mass/Vol] 58 mg/dL Normal >39 [facility] Comment on above: Result Comment: HDL <40 mg/dL - High Risk HDL > or = 40mg/dL- Desirable HDL >60 mg/dL - Negative Risk Performed By: #### L IPR #### [facility] ([facility]) [address] [place] [address] VIR Cholesterol in LDL [Mass/Vol] 116 mg/dL Normal <130 [facility] Comment on above: Result Comment: LDL <100 mg/dL - Desirable LDL >160 mg/dL - High Risk Performed By: #### L IPR #### [facility] ([facility]) [address] [place] [address] VIR CHOLESTEROL:HDL 3.3 Normal 1.0-5.0 [facility] Comment on above: Performed By: #### L IPR #### [facility] ([facility]) [address] [place] [address] VIR Triglyceride [Mass/Vol] 77 mg/dL Normal 27-150 [facility] Comment on above: Performed By: #### L IPR #### [facility] ([facility]) [address] [place] [address] VIR VERY LOW LIPOPROTEIN 15 mg/dL Normal 0-30 [facility] Comment on above: Performed By: #### L IPR #### [facility] ([facility]) [address] [place] [address] VIR Lipid profileon 12-13-2024 Cholesterol [Mass/Vol] 189 mg/dL 150 - 200 mg/ dL [facility] Cholesterol in HDL [Mass/Vol] 58 mg/dL 39 - PINF mg/dL [facility] Comment on above: HDL <40 mg/dL - High Risk HDL > or = 40mg/dL- Desirable HDL >60 mg/dL - Negative Risk Cholesterol in HDL [Mass/Vol] 3.3 mg/dL 1.0 - 5.0 [facility] Cholesterol in LDL [Mass/Vol] 116 mg/dL NINF - 130 mg/dL [facility] Comment on above: LDL <100 mg/dL - Mark irable LDL >160 mg/dL - High Risk Cholesterol in VLDL [Mass/Vol] 15 mg/dL 0 - 30 mg/dL [facility] Triglyceride [Mass/Vol] 77 mg/dL 27 - 150 mg/dL [facility] No Panel Informationon 12-13 Interpretation and review of laboratory results Normal [facility] THYROID PROFILE INCLUDES TSH FT4on 12-13-2024 Free T4 [Mass/Vol] 1.05 ng/dL Normal 0.61-1.60 [facility] Comment on above: Performed By: #### T HYR #### [facility] ([facility]) [address] [place] [address] VIR TSH 1.57 uIU/mL Normal 0.49-4.67 [facility] Comment on above: Performed By: #### T HYR #### [facility] ([facility]) [address] [place] [address] VIR Thyroid profile includes TSH FT4on 12-13-2024 Free T4 [Mass/Vol] 1.05 ng/dL 0.61 - 1. 60 ng/dL [facility] Interpretation and review of laboratory results Normal [facility] TSH Qn 1.57 m[IU]/L [facility] VITAMIN B12on 12-13-2024 Cobalamin (Vitamin B12) [Mass/Vol] 234 pg/mL Normal 180-914 [facility] Comment on above: Performed By: #### B 12 #### [facility] ([facility]) [address] [place] [address] VIR VITAMIN D 25 HYDROXYon 12-13 VITAMIN D 25 HYD TOT 29.9 ng/mL Low 30.0-100.0 [facility] Comment on above: Order Comment: Vitam in D status 25 [place] Vitamin D Deficiency <20 ng/mL Insufficiency 20-29 ng/mL Sufficiency 30-100 ng/mL Toxicity >100 ng/mL NOTE: A pediatric reference range has not been established by the roll mill operator of this kit. The [employer] [place] [employer] recommends a Vitamin D level of = or >20ng/mL in infants and children. Performed By: #### V ITD #### [facility] ([facility]) [address] [place] [address] VIR Vitamin B12on 12-13-2024 Cobalamin (Vitamin B12) [Mass/Vol] 234 pg/mL 180 - 914 pg/mL [facility] Interpretation and review of laboratory results Normal [facility] Vitamin D 25 hydroxyon 12-13 25-hydroxyvitamin D3 [Mass/Vol] 29.9 ng/mL Low 30.0 - 100.0 ng/mL [facility] Interpretation and review of laboratory results Abnormal [facility] Vitamin D status 25 [place] Vitamin D Deficiency <20 ng/mL Insufficiency 20-29 ng/mL Sufficiency 30-100 ng/mL Toxicity >100 ng/mL NOTE: A pediatric reference range has not been established by the roll mill operator of this kit. The [employer] recommends a Vitamin D level of = or >20ng/mL in infants and children. [facility] HIGH RISK HPV W/GENOon 09-22 HPV 16 Negative Normal Negative [facility] Comment on above: Performed By: #### H PV #### [facility] ([facility]) [address] [place] [address] VIR HPV 18 Negative Normal Negative [facility] Comment on above: Performed By: #### H PV #### [facility] ([facility]) [address] [place] [address] VIR OTHER HIGH RISK HPV Negative Normal Negative [facility] Comment on above: Result Comment: HPV types 31, 33, 35, 39, 45, 52, 56, 58, 59, 66, and 68 DNA were undetectable. Performed By: #### H PV #### [facility] ([facility]) [address] [place] [address] VIR Appearance of UrineOrdered B y: Brent Simmons on 09-12-2024 Appearance (U) Urine appearance Abnormal Clear [facility] Bacteria [Presence] in Urine by AutomatedOrdered By: Brent Simmons on 09-12-2024 Bacteria Auto Ql (U) Bacteria [Presence] in Urine by Automated None Seen [facility] Basic Metabolic Panelon 05-0 Anion gap [Moles/Vol] 17.2 mmol/L High 6.0-15.0 [facility] Comment on above: Performed By: #### C BC, BMP #### [address] Calcium [Mass/Vol] 9.6 mg/dL Normal 8.6-10.3 [facility] Comment on above: Performed By: #### C BC, BMP #### [address] Chloride [Moles/Vol] 103 mmol/L Normal 98-107 [facility] Comment on above: Performed By: #### C BC, BMP #### [address] CO2 [Moles/Vol] 17.9 mmol/L Low 21.0-31.0 [facility] Comment on above: Performed By: #### C BC, BMP #### [address] Creatinine [Mass/Vol] 0.77 mg/dL Normal 0.60-1.20 [facility] Comment on above: Performed By: #### C BC, BMP #### [place] [address] [place] Creatinine Clr Calc Pharmacy 106.94 Normal [facility] Comment on above: Result Comment: PERF ORMED BY: [place] [address] PATHOLOGIST [employer] CHOW M.D. Performed By: #### C BC, BMP #### [place] [address] [place] GFR/1.73 sq M.predicted MDRD (S/P/Bld) [Vol rate/Area] mL/min/{1.73_m2} Normal [facility] Comment on above: Performed By: #### C BC, BMP #### [place] [address] [place] Glucose [Mass/Vol] 71 mg/dL Normal 70-100 [facility] Comment on above: Result Comment: [facility] Glucose Reference Range is dependent on time and content of last meal. Glucose of more than 200 mg/dL in a nonstressed, ambulatory subject supports the diagnosis of Diabetes Mellitus. ADA recommended reference range Performed By: #### C BC, BMP #### [facility] [address] Potassium [Moles/Vol] 4.1 mmol/L Normal 3.5-5.1 [facility] Comment on above: Result Comment: Hemo lysis is present at a level that could interfere with the result. Contact lab if redraw is required Performed By: #### C BC, BMP #### [facility] [address] Sodium [Moles/Vol] 134 mmol/L Low 136-145 [facility] Comment on above: Performed By: #### C ERINN, BMP #### [facility] [address] Urea nitrogen [Mass/Vol] 9 mg/dL Normal 7-25 [facility] Comment on above: Performed By: #### C ERINN, BMP #### [facility] [address] [place] [address] [place] Basophils Auto (Bld) [#/Vol] Ordered By: Brent Simmons on 09-12-2024 Basophils (Bld) [#/Vol] Automated basophil count 0.0-0.2 [facility] Basophils/100 WBC Auto (Bld) Ordered By: Brent Simmons on 09-12-2024 Basophils/100 WBC (Bld) Automated basophil % . [facility] Bilirubin Test strip Ql (U)O rdered By: Brent Simmons on 09-12-2024 Bilirubin Ql (U) Bilirubin.total [Presence] in Urine by Test strip Negative [facility] Calcium [Mass/volume] in Ser um or PlasmaOrdered By: Brent Simmons on 09-12-2024 Calcium [Mass/Vol] Calcium [Mass/volume ] in Serum or Plasma 8.6-10.3 [facility] Carbon dioxide, total [Moles /volume] in Serum or PlasmaOrdered By: Brent Simmons on 09-12-2024 CO2 [Moles/Vol] Carbon dioxide, tota l [Moles/volume] in Serum or Plasma Low 21.0-31.0 [facility] Chloride [Moles/volume] in S yoav or PlasmaOrdered By: Brent Simmons on 09-12-2024 Chloride [Moles/Vol] Chloride [Moles/volume] in Serum or Plasma 98-107 [facility] Color Auto (U)Ordered By: Benton Simmons on 09-12-2024 Color (U) Color of Urine by Auto Yellow [facility] Complete Blood Count Auto Di ffon 09-12-2024 Basophils (Bld) [#/Vol] 0.1 10*3/uL Normal 0.0-0.2 [facility] Comment on above: Result Comment: PERF ORMED BY: [place] [address] PATHOLOGIST [employer] M.D. Performed By: #### C BC, BMP #### [address] Basophils/100 WBC (Bld) 0.7 % Normal . [facility] Comment on above: Performed By: #### C BC, BMP #### [address] Eosinophils (Bld) [#/Vol] 0.3 10*3/uL Normal 0.0-0.45 [facility] Comment on above: Performed By: #### C BC, BMP #### [address] Eosinophils/100 WBC (Bld) 2.6 % Normal . [facility] Comment on above: Performed By: #### C BC, BMP #### [address] Erythrocyte distribution width (RBC) [Ratio] 13.4 % Normal 11.9-15.3 [facility] Comment on above: Performed By: #### C BC, BMP #### [address] Hematocrit (Bld) [Volume fraction] 46.6 % High 34.0-46.4 [facility] Comment on above: Performed By: #### C BC, BMP #### [address] Hemoglobin (Bld) [Mass/Vol] 15.9 g/dL High 11.8-15.4 [facility] Comment on above: Performed By: #### C BC, BMP #### [address] Lymphocytes (Bld) [#/Vol] 1.7 10*3/uL Normal 1.00-4.8 [facility] Comment on above: Performed By: #### C BC, BMP #### [address] Lymphocytes/100 WBC (Bld) 16.9 % Normal . [facility] Comment on above: Performed By: #### C BC, BMP #### [address] MCH (RBC) [Entitic mass] 31.2 pg Normal 24.7-34.3 [facility] Comment on above: Performed By: #### C BC, BMP #### [address] MCV (RBC) [Entitic vol] 91.7 fL Normal 80-100 [facility] Comment on above: Performed By: #### C BC, BMP #### [address] Mean Corpuscular HGB Conc 34.0 g/dL Normal 32.0-35.0 [facility] Comment on above: Performed By: #### C BC, BMP #### [address] Monocytes (Bld) [#/Vol] 0.5 10*3/uL Normal 0.0-0.8 [facility] Comment on above: Performed By: #### C BC, BMP #### [address] Monocytes/100 WBC (Bld) 5.2 % Normal . [facility] Comment on above: Performed By: #### C BC, BMP #### [facility] [address] [place] [address] [place] Neutrophils (Bld) [#/Vol] 7.5 10*3/uL Normal 1.8-7.7 [facility] Comment on above: Performed By: #### C BC, BMP #### [facility] [address] [place] [address] [place] Neutrophils/100 WBC (Bld) 74.6 % Normal . [facility] Comment on above: Performed By: #### C BC, BMP #### [facility] [address] [place] [address] [place] NRBC% 0.2 /100{WBC} Normal 0-0.5 [facility] Comment on above: Performed By: #### C BC, BMP #### [facility] [address] [place] [address] [place] Platelet mean volume (Bld) [Entitic vol] 9.9 fL Normal 6.3-10.7 [facility] Comment on above: Performed By: #### C BC, BMP #### [facility] [address] [place] [id number] [place] Platelets (Bld) [#/Vol] 261 10*3/uL Normal 150-450 [facility] Comment on above: Performed By: #### C BC, BMP #### [facility] [address] [place] [id number] [place] RBC (Bld) [#/Vol] 5.08 10*6/uL High 3.60-5.00 [facility] Comment on above: Performed By: #### C BC, BMP #### [facility] [address] [place] [id number] [place] WBC (Bld) [#/Vol] 10.1 10*3/uL Normal 3.8-11.6 [facility] Comment on above: Performed By: #### C BC, BMP #### [facility] [address] [place] [id number] [place] Creatinine [Mass/volume] in Serum or PlasmaOrdered By: Brent Troy on 09-12-2024 Creatinine [Mass/Vol] Creatinine [Mass/volume] in Serum or Plasma 0.60-1.20 [facility] Dipstick and Microscopicon 0 09-12-2024 Appearance (U) Cloudy Critically abnormal Clear [facility] Comment on above: Order Comment: Name Collection Type:: Clean-Voided Midstream Performed By: #### A DDONUAPLUS #### [address] Bacteria,Urine None Seen Normal None Seen [facility] Comment on above: Order Comment: Name Collection Type:: Clean-Voided Midstream Performed By: #### A DDONUAPLUS #### [address] Bilirubin,Urine Negative Normal Negative [facility] Comment on above: Order Comment: Name Collection Type:: Clean-Voided Midstream Performed By: #### A DDONUAPLUS #### [place] [address] [place] Color (U) Yellow Normal Yellow [facility] Comment on above: Order Comment: Name Collection Type:: Clean-Voided Midstream Performed By: #### A DDONUAPLUS #### [address] Glucose Ql (U) Normal Normal Normal [facility] Comment on above: Order Comment: Name Collection Type:: Clean-Voided Midstream Performed By: #### A DDONUAPLUS #### [place] [address] [place] Hyaline Casts,Urine 0-8 Normal 0-8 [facility] Comment on above: Order Comment: Name Collection Type:: Clean-Voided Midstream Performed By: #### A DDONUAPLUS #### [address] Ketones Ql (U) 4+ High Negative [facility] Comment on above: Order Comment: Name Collection Type:: Clean-Voided Midstream Performed By: #### A DDONUAPLUS #### [address] Leukocyte esterase Test strip Ql (U) 1+ High Negative [facility] Comment on above: Order Comment: Name Collection Type:: Clean-Voided Midstream Performed By: #### A DDONUAPLUS #### [address] Mucus,Urine Rare Normal [facility] Comment on above: Order Comment: Name Collection Type:: Clean-Voided Midstream Result Comment: PERF ORMED BY: [place] [address] PATHOLOGIST [employer] CHOW M.D. Performed By: #### A DDONUAPLUS #### [address] Nitrite,Urine Negative Normal Negative [facility] Comment on above: Order Comment: Name Collection Type:: Clean-Voided Midstream Performed By: #### A DDONUAPLUS #### [address] Occult Blood,Urine Negative Normal Negative [facility] Comment on above: Order Comment: Name Collection Type:: Clean-Voided Midstream Result Comment: PERF ORMED BY: [place] [address] PATHOLOGIST [employer] CHOW M.D. Performed By: #### A DDONUAPLUS #### [address] pH (U) 5.5 [pH] Normal 5.0-9.0 [facility] Comment on above: Order Comment: Name Collection Type:: Clean-Voided Midstream Performed By: #### A DDONUAPLUS #### [place] [address] [place] Protein (U) [Mass/Vol] 100 mg/dL High Negative [facility] Comment on above: Order Comment: Name Collection Type:: Clean-Voided Midstream Performed By: #### A DDONUAPLUS #### [place] [id number] [place] RBC,Urine 3-4 Normal 0-4 [facility] Comment on above: Order Comment: Name Collection Type:: Clean-Voided Midstream Performed By: #### A DDONUAPLUS #### [address] Specificy [facility],Urine 1.043 High 1.001-1.030 [facility] Comment on above: Order Comment: Name Collection Type:: Clean-Voided Midstream Performed By: #### A DDONUAPLUS #### [address] Squamous Epithelial Cell,Urine 20-49 High 0-2 [facility] Comment on above: Order Comment: Name Collection Type:: Clean-Voided Midstream Performed By: #### A DDONUAPLUS #### [address] Urobilinogen,Urine 3 mg/dL High Normal [facility] Comment on above: Order Comment: Name Collection Type:: Clean-Voided Midstream Performed By: #### A DDONUAPLUS #### [place] [address] [place] WBC,Urine 3-4 Normal 0-4 [facility] Comment on above: Order Comment: Name Collection Type:: Clean-Voided Midstream Performed By: #### A DDONUAPLUS #### [place] [address] [place] Eosinophils Auto (Bld) [#/Vo l]Ordered By: Brent Simmons on 09-12-2024 Eosinophils (Bld) [#/Vol] Automated eosinophil count 0.0-0.45 [facility] Eosinophils/100 WBC Auto (Bl d)Ordered By: Brent Simmons on 09-12-2024 Eosinophils/100 WBC (Bld) Automated eosinophil % . [facility] Epithelial cells.squamous [# /area] in Urine sediment by Automated countOrdered By: Brent Simmons on 09-12-2024 Epithelial cells.squamous Auto (Urine sed) [#/Area] Epithelial cells.squamous [#/area] in Urine sediment by Automated count High 0-2 [facility] Erythrocyte distribution wid th Auto (RBC) [Ratio]Ordered By: Brent Simmons on 09-12-2024 Erythrocyte distribution width (RBC) [Ratio] Erythrocyte distribution width [Ratio] by Automated count 11.9-15.3 [facility] Erythrocytes [#/area] in Uri ne sediment by Automated countOrdered By: Brent Simmons on 09-12-2024 RBC Auto (Urine sed) [#/Area] Erythrocytes [#/area] in Urine sediment by Automated count 0-4 [facility] Glucose [Mass/volume] in Ser um or PlasmaOrdered By: Brent Simmons on 09-12-2024 Glucose [Mass/Vol] Glucose [Mass/volume ] in Serum or Plasma 70-100 [facility] Comment on above: ADA recommended refe rence rangeRandom Glucose Reference Range is dependent on time and content of last meal. Glucose of more than 200 mg/dL in a nonstressed, ambulatory subject supports the diagnosis of Diabetes Mellitus. Glucose [Mass/volume] in Uri ne by Test stripOrdered By: Brent Simmons on 09-12-2024 Glucose Test strip (U) [Mass/Vol] Glucose [Mass/volume] in Urine by Test strip Normal [facility] Hematocrit Auto (Bld) [Volum e fraction]Ordered By: Brent Simmons on 09-12-2024 Hematocrit (Bld) [Volume fraction] Hematocrit [Volume Fraction] of Blood by Automated count High 34.0-46.4 [facility] Hemoglobin Test strip Ql (U) Ordered By: Brent Simmons on 09-12-2024 Hemoglobin Ql (U) Hemoglobin [Presence ] in Urine by Test strip Negative [facility] Hemoglobin [Mass/volume] in BloodOrdered By: Brent Simmons on 09-12-2024 Hemoglobin (Bld) [Mass/Vol] Hemoglobin [Mass/volume] in Blood High 11.8-15.4 [facility] Hyaline casts [#/area] in Ur ine sediment by Automated countOrdered By: Brent Simmons on 09-12-2024 Hyaline casts Auto (Urine sed) [#/Area] Hyaline casts [#/area] in Urine sediment by Automated count 0-8 [facility] Ketones Test strip Ql (U)Ord ered By: Brent Simmons on 09-12-2024 Ketones Ql (U) Ketones [Presence] i n Urine by Test strip High Negative [facility] Leukocyte esterase [Presence ] in Urine by Test stripOrdered By: Brent Simmons on 09-12-2024 Leukocyte esterase Test strip Ql (U) Leukocyte esterase [Presence] in Urine by Test strip High Negative [facility] Leukocytes [#/area] in Urine sediment by Automated countOrdered By: Brent Simmons on 09-12-2024 WBC Auto (Urine sed) [#/Area] Leukocytes [#/area] in Urine sediment by Automated count 0-4 [facility] Leukocytes [#/volume] correc kitty for nucleated erythrocytes in Blood by Automated counOrdered By: Brent Simmons on 09-12-2024 WBC corrected for nucl RBC Auto (Bld) [#/Vol] Leukocytes [#/volume] corrected for nucleated erythrocytes in Blood by Automated coun 3.8-11.6 [facility] Lymphocytes Auto (Bld) [#/Vo l]Ordered By: Brent Simmons on 09-12-2024 Lymphocytes (Bld) [#/Vol] Lymphocytes [#/volume] in Blood by Automated count 1.00-4.8 [facility] Lymphocytes/100 WBC Auto (Bl d)Ordered By: Brent Simmons on 09-12-2024 Lymphocytes/100 WBC (Bld) Lymphocytes/100 leukocytes in Blood by Automated count . [facility] MCH Auto (RBC) [Entitic mass ]Ordered By: Brent Simmons on 09-12-2024 MCH (RBC) [Entitic mass] MCH [Entitic mass] by Automated count 24.7-34.3 [facility] MCHC Auto (RBC) [Mass/Vol]Or dered By: Brent Simmons on 09-12-2024 MCHC (RBC) [Mass/Vol] MCHC [Mass/volume] by Automated count 32.0-35.0 [facility] MCV Auto (RBC) [Entitic vol] Ordered By: Brent Simmons on 09-12-2024 MCV (RBC) [Entitic vol] MCV [Entitic volume] by Automated count 80-100 [facility] Monocytes Auto (Bld) [#/Vol] Ordered By: Brent Simmons on 09-12-2024 Monocytes (Bld) [#/Vol] Automated blood monocyte count 0.0-0.8 [facility] Monocytes/100 WBC Auto (Bld) Ordered By: Brent Simmons on 09-12-2024 Monocytes/100 WBC (Bld) Automated monocyte % . [facility] Mucus [Presence] in Urine by AutomatedOrdered By: Brent Simmons on 09-12-2024 Mucus Auto Ql (U) Mucus [Presence] in Urine by Automated [facility] Neutrophils Auto (Bld) [#/Vo l]Ordered By: Brent Simmons on 09-12-2024 Neutrophils (Bld) [#/Vol] Neutrophils [#/volume] in Blood by Automated count 1.8-7.7 [facility] Neutrophils/100 WBC Auto (Bl d)Ordered By: Brent Simmons on 09-12-2024 Neutrophils/100 WBC (Bld) Automated neutrophil % . [facility] Nitrite Test strip Ql (U)Ord ered By: Brent Simmons on 09-12-2024 Nitrite Ql (U) Nitrite [Presence] i n Urine by Test strip Negative [facility] No Panel InformationOrdered By: Brent Simmons on 09-12-2024 Estimated GFR (CKD-EPI) > 60.0 mL/Min [facility] Creatinine Clearance (Chem 106.94 [facility] Nucleated erythrocytes [Pres ence] in Blood by Automated countOrdered By: Brent Simmons on 09-12-2024 Nucleated RBC Auto Ql (Bld) Nucleated erythrocytes [Presence] in Blood by Automated count 0-0.5 [facility] Platelet mean volume Auto (B ld) [Entitic vol]Ordered By: Brent Simmons on 09-12-2024 Platelet mean volume (Bld) [Entitic vol] Platelet mean volume [Entitic volume] in Blood by Automated count 6.3-10.7 [facility] Platelets Auto (Bld) [#/Vol] Ordered By: Brnet Simmons on 09-12-2024 Platelets (Bld) [#/Vol] Platelets [#/volume] in Blood by Automated count 150-450 [facility] Potassium [Moles/volume] in Serum or PlasmaOrdered By: Brent Simmons on 09-12-2024 Potassium [Moles/Vol] Potassium [Moles/volume] in Serum or Plasma 3.5-5.1 [facility] Comment on above: Hemolysis is present at a level that could interfere with the result.Contact lab if redraw is required Protein Test strip (U) [Mass /Vol]Ordered By: Brent Simmons on 09-12-2024 Protein (U) [Mass/Vol] Protein [Mass/vol ume] in Urine by Test strip High Negative [facility] RBC Auto (Bld) [#/Vol]Ordere d By: Brent Simmons on 09-12-2024 RBC (Bld) [#/Vol] Erythrocytes [#/volume] in Blood by Automated count High 3.60-5.00 [facility] Serum or plasma anion gap de terminationOrdered By: Brent Simmons on 09-12-2024 Anion gap [Moles/Vol] Serum or plasma an ion gap determination High 6.0-15.0 [facility] Sodium [Moles/volume] in Ser um or PlasmaOrdered By: Brent Simmons on 09-12-2024 Sodium [Moles/Vol] Sodium [Moles/volume ] in Serum or Plasma Low 136-145 [facility] Specific gravity Test strip (U) [Rel density]Ordered By: Brent Simmons on 09-12-2024 Specific gravity (U) [Rel density] Specific gravity of Urine by Test strip High 1.001-1.030 [facility] Urea nitrogen [Mass/volume] in Serum or PlasmaOrdered By: Brent Simmons on 09-12-2024 Urea nitrogen [Mass/Vol] Urea nitrogen [Mass/volume] in Serum or Plasma 7-25 [facility] Urobilinogen Test strip (U) [Mass/Vol]Ordered By: Brent Simmons on 09-12-2024 Urobilinogen (U) [Mass/Vol] Urobilinogen [Mass/volume] in Urine by Test strip High Normal [facility] WBC Auto (Bld) [#/Vol]Ordere d By: Brent Simmons on 09-12-2024 WBC (Bld) [#/Vol] Leukocytes [#/volume ] in Blood by Automated count 3.8-11.6 [facility] pH Test strip (U)Ordered By: Brent Simmons on 09-12-2024 pH (U) pH of Urine by Test strip 5.0-9.0 [facility] Cholesterol [Mass/volume] in Serum or PlasmaOrdered By: Brent Simmons on 09-10-2024 Cholesterol [Mass/Vol] Cholesterol [Mass/volume] in Serum or Plasma 140-200 [facility] Comment on above: Chol less than 200 m g/dl low riskChol 201-239 mg/dl borderline riskChol 240 mg/dl and greater high risk Cholesterol in HDL [Mass/vol ume] in Serum or PlasmaOrdered By: Brent Simmons on 09-10-2024 Cholesterol in HDL [Mass/Vol] Serum or plasma high density lipoprotein (HDL) cholesterol measurement 23-92 [facility] Comment on above: HDL CHOL ATP-III CLA SSIFICATION Cardiovascular RiskHDL > or equal to 60 mg/dL LOWHDL < 40 mg/dL HIGH Cholesterol in LDL Calc [Mas s/Vol]Ordered By: Brent Simmons on 09-10-2024 Cholesterol in LDL [Mass/Vol] Cholesterol in LDL [Mass/volume] in Serum or Plasma by calculation 0-100 [facility] Comment on above: LDL ATP III CLASSIFI CATIONLDL less than 100 mg/dL OptimalLDL 100-129 mg/dL Near or above optimalLDL 130-159 mg/dL Borderline highLDL 160-189 mg/dL HighLDL greater than 189 mg/dL Very high Cholesterol in VLDL Calc [Ma ss/Vol]Ordered By: Brent Simmons on 09-10-2024 Cholesterol in VLDL [Mass/Vol] Cholesterol in VLDL [Mass/volume] in Serum or Plasma by calculation [facility] ECG 12 lead ECGon 09-10-2024 ECG 12 lead ECG [facility] [place] [address] Electrocardiograph Report Signed Patient: Roshan Willingham MR#: [id number] : 1990 Acct:[id number] Age/Sex: 33 / F ADM Date: 09/09/24 Loc: Room: [address] [place] [address] Type: ADM IN Attending Dr: Brent Simmons MD Ordering Provider: Brent Simmons MD Date of Service: 09/10/2407/06/499 ECG/ECG 12 lead ECG: New admit Copies to: Test Reason : Blood Pressure : */* mmHG Vent. Rate : 70 BPM Atrial Rate : 70 BPM P-R Int : 136 ms QRS Dur : 90 ms QT Int : 382 ms P-R-T Axes : 39 38 38 degrees QTcB Int : 412 ms Normal sinus rhythm with sinus arrhythmia Normal ECG Confirmed by Nishi Toro ([id number]) on 09/10/2024 5:40:23 PM Referred By: Electronically Signed By: Nishi Toro Transcribed By: MUS Signed By Nishi Toro MD 5 1740 Normal [facility] Lipid Panelon 09-10-2024 Cholesterol [Mass/Vol] 162 mg/dL Normal 140-200 [facility] Comment on above: Result Comment: Chol less than 200 mg/dl low risk Chol 201-239 mg/dl borderline risk Chol 240 mg/dl and greater high risk Performed By: #### V [id number], LIPID, TSH3 wRFLX ####[facility] [place] [id number] [facility] Cholesterol in HDL [Mass/Vol] 42 mg/dL Normal 23-92 [facility] Comment on above: Result Comment: HDL CHOL ATP-III CLASSIFICATION Cardiovascular Risk HDL > or equal to 60 mg/dL LOW HDL < 40 mg/dL HIGH Performed By: #### V [id number], LIPID, TSH3 wRFLX ####[facility] [id number] [place] [address] [facility] Cholesterol.total/Chol esterol in HDL [Mass ratio] 3.9 {ratio} Normal <5.0 [facility] Comment on above: Performed By: #### V [id number], LIPID, TSH3 wRFLX ####[facility] [id number] [place] [address] [facility] LDL Cholesterol,Calculated 99 mg/dL Normal 0-100 [facility] Comment on above: Result Comment: LDL ATP III CLASSIFICATION LDL less than 100 mg/dL Optimal LDL 100-129 mg/dL Near or above optimal LDL 130-159 mg/dL Borderline high LDL 160-189 mg/dL High LDL greater than 189 mg/dL Very high Performed By: #### V [id number], LIPID, TSH3 wRFLX ####[place] [id number] [address] Triglyceride w/Reflex 107 mg/dL Normal 0-149 [facility] Comment on above: Result Comment: TRIG ATP III CLASSIFICATION TRIG less than 150 mg/dL Normal TRIG 150-199 mg/dL Borderline high TRIG 200-500 mg/dL High TRIG greater than 500 mg/dL Very high Standard traceable to the Center for Disease Conrtrol and Prevention (CDC) test method. Performed By: #### V [id number], LIPID, TSH3 wRFLX ####[address] VLDL CHOLESTEROL 21 mg/dL Normal [facility] Comment on above: Performed By: #### V [id number], LIPID, TSH3 wRFLX ####[address] Serum or plasma total choles terol/high density lipoprotein (HDL) cholesterol mass ratOrdered By: Brent Simmons on 09-10-2024 Cholesterol.total/Chol esterol in HDL [Mass ratio] Serum or plasma total cholesterol/high density lipoprotein (HDL) cholesterol mass rat <5.0 [facility] Thyroid Stim Hormone w/Rflxo n 09-10-2024 Thyroid Stim Hormone w/Rflx 1.42 u[iU]/mL Normal 0.45-5.33 [facility] Comment on above: Performed By: #### V [id number], LIPID, TSH3 wRFLX ####[address] Thyrotropin [Units/volume] i n Serum or PlasmaOrdered By: Brent Simmons on 09-10-2024 TSH Qn Thyrotropin [Units/volume] in Serum or Plasma 0.45-5.33 [facility] Triglyceride [Mass/volume] i n Serum or PlasmaOrdered By: Brent Simmons on 09-10-2024 Triglyceride [Mass/Vol] Triglyceride [Mass/volume] in Serum or Plasma 0-149 [facility] Comment on above: TRIG ATP III CLASSIF ICATIONTRIG less than 150 mg/dL NormalTRIG 150-199 mg/dL Borderline highTRIG 200-500 mg/dL High TRIG greater than 500 mg/dL Very highStandard traceable to the Center for Disease Conrtrol and Prevention (CDC) test method. Vitamin D 25 Hydroxy Totalon 09-10-2024 Vitamin D 25 Hydroxy Total 16.3 ng/mL Low 30-100 [facility] Comment on above: Result Comment: [place] MIN D STATUS 25(OH)VITAMIN D RANGE (ng/mL) Deficient <20 Insufficient 20 to <30 Sufficient 30 to 100 Reference: Dino Kim, Joe HAIDER, et al. Evaluation,treatment, and prevention of vitamin D deficiency; an Endocrine Society clinical practice guideline. JCEM. 2010; 96(7):1911-30. PERFORMED BY: [facility] [address] [place] [address] PATHOLOGIST [employer] CHOW M.D. Performed By: #### V [id number], LIPID, TSH3 wRFLX ####[facility] [id number] [place] [address] [facility] Vitamin D+Metabolites [Mass/ volume] in Serum or PlasmaOrdered By: Brent Simmons on 09-10-2024 Vitamin D+Metabolites [Mass/Vol] Vitamin D+Metabolites [Mass/volume] in Serum or Plasma Low 30-100 [facility] Comment on above: VITAMIN D STATUS 25( [place])VITAMIN D RANGE (ng/mL) Deficient <20 Insufficient 20 to <30Sufficient 30 to 100Reference: Dino Kim, Joe HAIDER, et al. Evaluation,treatment, and prevention of vitamin D deficiency; an Endocrine Society clinical practice guideline. JCEM. 2010; 96(7):1911-. Acetaminophenon 09-09-2024 Acetaminophen [Mass/Vol] ug/mL Low 10-30 [facility] Comment on above: Performed By: #### A LCB, ACET #### [facility] [address] [place] [address] Research Advisor: Rodger Dykes MD Acetaminophen Levelon 2024 Acetaminophen [Mass/Vol] ug/mL Low 10 - 30 ug/mL [facility] Interpretation and review of laboratory results Abnormal [facility] CBC with Auto Differentialon 09-09-2024 Basophils (Bld) [#/Vol] 0.08 10*3/uL [facility] Basophils/100 WBC (Bld) 1 % 0 - 2 % [facility] Eosinophils (Bld) [#/Vol] 0.28 10*3/uL [facility] Eosinophils/100 WBC (Bld) 3 % 1 - 4 % [facility] Erythrocyte distribution width (RBC) [Ratio] 12.7 % 11.8 - 14.4 % [facility] Hematocrit (Bld) [Volume fraction] 46.2 % 36.3 - 47.1 % [facility] Hemoglobin (Bld) [Mass/Vol] 16.1 g/dL High 11.9 - 15.1 g/dL [facility] Immature granulocytes (Bld) [#/Vol] 0.04 10*3/uL [facility] Immature granulocytes/100 WBC (Bld) 0 % 0 [facility] Interpretation and review of laboratory results Abnormal [facility] Lymphocytes/100 WBC (Bld) 13 % Low 24 - 43 % [facility] Lymphocytes/100 WBC (Bld) 1.44 % [facility] MCH (RBC) [Entitic mass] 31.5 pg 25.2 - 33.5 pg [facility] MCHC (RBC) [Mass/Vol] 34.8 g/dL 28.4 - 34.8 g/dL [facility] MCV (RBC) [Entitic vol] 90.4 fL 82.6 - 102.9 fL [facility] Monocytes/100 WBC (Bld) 4 % 3 - 12 % [facility] Monocytes/100 WBC (Bld) 0.47 % [facility] Neutrophils/100 WBC (Bld) 79 % High 36 - 65 % [facility] Nucleated RBC/100 WBC (Bld) [Ratio] 0 % 0.0 per 100 WBC [facility] Platelet mean volume (Bld) [Entitic vol] 11.1 fL 8.1 - 13.5 fL [facility] Platelets (Bld) [#/Vol] 258 10*3/uL [facility] RBC (Bld) [#/Vol] 5.11 10*6/uL 3.95 - 5.1 1 m/uL [facility] Segmented neutrophils/100 WBC (Bld) 8.63 % High [facility] WBC other (Bld) [#/Vol] 10.9 [facility] CBC with Diffon 09-09-2024 Abs. Basophil 0.08 k/uL Normal 0.00-0.20 [facility] Comment on above: Performed By: #### KATHERINE Holland CDP, CP #### [facility] [address] [place] [address] [address] [place] [id number] Research Advisor: Rodger Dykes MD Abs.Imm.Granulocyte 0.04 k/uL Normal 0.00-0.30 [facility] Comment on above: Performed By: #### KATHERINE Holland CDP, CP #### [address] [place] [id number] Research Advisor: Rodger Dykes MD Abs.Neutrophil (Seg) 8.63 k/uL High 1.50-8.10 [facility] Comment on above: Performed By: #### KATHERINE Holland CDP, CP #### [address] [place] [id number] Research Advisor: Rodger Dykes MD Basophils/100 WBC (Bld) 1 % Normal 0-2 [facility] Comment on above: Performed By: #### KATHERINE Holland CDP, CP #### [address] [place], [place] [id number] Research Advisor: Rodger Dykes MD Eosinophils (Bld) [#/Vol] 0.28 10*3/uL Normal 0.00-0.44 [facility] Comment on above: Performed By: #### M G, TRACI MURPHY, CP #### [address] [place], [place] [id number] Research Advisor: Rodger Dykes MD Eosinophils/100 WBC (Bld) 3 % Normal 1-4 [facility] Comment on above: Performed By: #### M Marco, TRACI MURPHY, CP #### [address] [place] [id number] Research Advisor: Rodger Dykes MD Erythrocyte distribution width (RBC) [Ratio] 12.7 % Normal 11.8-14.4 [facility] Comment on above: Performed By: #### KATHERINE Holland CDP, CP #### [address] [place], [facility] Research Advisor: Rodger Dykes MD Hematocrit (Bld) [Volume fraction] 46.2 % Normal 36.3-47.1 [facility] Comment on above: Performed By: #### M KATHERINE Lara CDP, CP #### [address] [place] [id number] Research Advisor: Rodger Dykes MD Hemoglobin (Bld) [Mass/Vol] 16.1 g/dL High 11.9-15.1 [facility] Comment on above: Performed By: #### M KATHERINE Lara CDP, CP #### [address] [place] [id number] Research Advisor: Rodger Dyeks MD Immature granulocytes/100 WBC (Bld) 0 % Normal 0 [facility] Comment on above: Performed By: #### M Marco, TRACI MURPHY, CP #### [address] [place] [id number] Research Advisor: Rodger Dykes MD Lymphocytes (Bld) [#/Vol] 1.44 10*3/uL Normal 1.10-3.70 [facility] Comment on above: Performed By: #### KATHERINE Holland CDP, CP #### [address] [place] [id number] Research Advisor: Rodger Dykes MD Lymphocytes/100 WBC (Bld) 13 % Low 24-43 [facility] Comment on above: Performed By: #### KATHERINE Holland CDP, CP #### [address] [place] [address] Research Advisor: Rodger Dykes MD MCH (RBC) [Entitic mass] 31.5 pg Normal 25.2-33.5 [facility] Comment on above: Performed By: #### KATHERINE Holland CDP, CP #### [address] [place], [facility]83 Research Advisor: Rodger Dykes MD MCHC (RBC) [Mass/Vol] 34.8 g/dL Normal 28.4-34.8 [facility] Comment on above: Performed By: #### KATHERINE Holland CDP, CP #### [address] [place], [facility]83 Research Advisor: Rodger Dykes MD MCV (RBC) [Entitic vol] 90.4 fL Normal 82.6-102.9 [facility] Comment on above: Performed By: #### KATHERINE Holland CDP, CP #### [address] [place], [facility]83 Research Advisor: Rodger Dykes MD Monocytes (Bld) [#/Vol] 0.47 10*3/uL Normal 0.10-1.20 [facility] Comment on above: Performed By: #### KATHERINE Holland CDP, CP #### [address] [place] [address] [place], [place] [id number] Research Advisor: Rodger Dykes MD Monocytes/100 WBC (Bld) 4 % Normal 3-12 [facility] Comment on above: Performed By: #### KATHERINE Holland CDP, CP #### [facility] [address] [place] [address] Research Advisor: Rodger Dykes MD Neutrophil (Seg) 79 % High 36-65 [facility] Comment on above: Performed By: #### KATHERINE Holland CDP, CP #### [address] [place], [place] [id number] Research Advisor: Rodger Dykes MD NRBC Automated 0.0 per 100 WBC Normal 0.0 [facility] Comment on above: Performed By: #### KATHERINE Holland CDP, CP #### [address] [place] [address] Research Advisor: Rodger Dykes MD Platelet mean volume (Bld) [Entitic vol] 11.1 fL Normal 8.1-13.5 [facility] Comment on above: Performed By: #### KATHERINE Holland CDP, CP #### [address] [place] [address] Research Advisor: Rodger Dykes MD Platelets (Bld) [#/Vol] 258 10*3/uL Normal 138-453 [facility] Comment on above: Performed By: #### KATHERINE Holland CDP, CP #### [address] [place] [address] Research Advisor: Rodger Dykes MD RBC (Bld) [#/Vol] 5.11 10*6/uL Normal 3.95-5.11 [facility] Comment on above: Performed By: #### KATHERINE Holland CDP, CP #### [address] [place], [place] [id number] Research Advisor: Rodger Dykes MD WBC (Bld) [#/Vol] 10.9 10*3/uL Normal 3.5-11.3 [facility] Comment on above: Performed By: #### M KATHERINE Lara CDP, CP #### [facility] [address] [place] [address] Research Advisor: Rodger Dykes MD [facility] Albumin [Mass/Vol] 4.4 g/dL 3.5 - 5.2 g/dL [facility] Albumin/Globulin [Mass ratio] 1.4 {ratio} 1.0 - 2.5 [facility] ALP [Catalytic activity/Vol] 67 U/L 35 - 104 U/L [facility] ALT [Catalytic activity/Vol] 13 U/L 10 - 35 U/L [facility] Anion gap [Moles/Vol] 15 mmol/L 9 - 16 mmol/L [facility] AST [Catalytic activity/Vol] 17 U/L 10 - 35 U/L [facility] Bilirubin [Mass/Vol] 0.3 mg/dL 0.00 - 1.20 mg/dL [facility] Calcium [Mass/Vol] 9.7 mg/dL 8.6 - 10. 4 mg/dL [facility] Chloride [Moles/Vol] 108 mmol/L High 98 - 107 mmol/L [facility] CO2 [Moles/Vol] 17 mmol/L Low 20 - 31 mmol/L [facility] Creatinine [Mass/Vol] 0.8 mg/dL 0.50 - 0.90 mg/dL [facility] Est, Glom Filt Rate - PINF [facility] Comment on above: These results are not intended for use in patients <18 years of age. eGFR results are calculated without a race factor using the 2020 CKD-EPI equation. Careful clinical correlation is recommended, particularly when comparing to results calculated using previous equations. The CKD-EPI equation is less accurate in patients with extremes of muscle mass, extra-renal metabolism of creatine, excessive creatine ingestion, or following therapy that affects renal tubular secretion. Glucose [Mass/Vol] 103 mg/dL High 74 - 99 mg/dL [facility] Potassium [Moles/Vol] 4 mmol/L 3.7 - 5.3 mmol/L [facility] Protein [Mass/Vol] 7.5 g/dL 6.6 - 8.7 g/dL [facility] Sodium [Moles/Vol] 140 mmol/L 136 - 145 mmol/L [facility] Urea nitrogen [Mass/Vol] 8 mg/dL 6 - 20 mg/dL [facility] Urea nitrogen/Creatinine [Mass ratio] 10 mg/mg 9 - 20 [facility] Comp Metabolic Profon 2024 Albumin [Mass/Vol] 4.4 g/dL Normal 3.5-5.2 [facility] Comment on above: Performed By: #### KATHERINE Holland CDP, CP #### [facility] [address] [place] [address] [place] [address] Research Advisor: Rodger Dykes MD Albumin/Glob Ratio 1.4 Normal 1.0-2.5 [facility] Comment on above: Performed By: #### KATHERINE Holland CDP, CP #### [address] [place] [address] Research Advisor: Rodger Dykes MD Alkaline Phos 67 U/L Normal 35-104 [facility] Comment on above: Performed By: #### KATHERINE Holland CDP, CP #### [address] [place], [place] [id number] Research Advisor: Rodger Dykes MD ALT [Catalytic activity/Vol] 13 U/L Normal 10-35 [facility] Comment on above: Performed By: #### KATHERINE Holland CDP, CP #### [facility] [address] [place] [address] Research Advisor: Rodger Dykes MD Anion gap [Moles/Vol] 15 mmol/L Normal 9-16 [facility] Comment on above: Performed By: #### KATHERINE Holland CDP, CP #### [facility] [address] [place], [place] [id number] Research Advisor: Rodger Dykes MD AST [Catalytic activity/Vol] 17 U/L Normal 10-35 [facility] Comment on above: Performed By: #### M Marco, SALI, CDP, CP #### [facility] [address] [place], [place] [id number] Research Advisor: Rodger Dykes MD Bilirubin [Mass/Vol] 0.3 mg/dL Normal 0.00-1.20 [facility] Comment on above: Performed By: #### M KATHERINE Lara CDP, CP #### [address] [place], [place] [id number] Research Advisor: Rodger Dykes MD BUN/CRE Ratio 10 Normal 9-20 [facility] Comment on above: Performed By: #### KATHERINE Holland CDP, CP #### [address] [place], [facility]83 Research Advisor: Rodger Dykes MD Calcium [Mass/Vol] 9.7 mg/dL Normal 8.6-10.4 [facility] Comment on above: Performed By: #### M KATHERINE Lara CDP, CP #### [address] [place], [place] [id number] Research Advisor: Rodger Dykes MD Chloride [Moles/Vol] 108 mmol/L High 98-107 [facility] Comment on above: Performed By: #### M KATHERINE Lara CDP, CP #### [address] [place], [place] [id number] Research Advisor: Rodger Dykes MD CO2 [Moles/Vol] 17 mmol/L Low 20-31 [facility] Comment on above: Performed By: #### M Marco, KATHERINE, CDP, CP #### [address] [place], [place] [id number] Research Advisor: Rodger Dykes MD Creatinine [Mass/Vol] 0.8 mg/dL Normal 0.50-0.90 [facility] Comment on above: Performed By: #### KATHERINE Holland CDP, CP #### [facility] [address] [place], [place] [id number] Research Advisor: Rodger Dykes MD GFR/1.73 sq M.predicted among non-blacks MDRD (S/P/Bld) [Vol rate/Area] mL/min/{1.73_m2} Normal >60 [facility] Comment on above: Result Comment: These results are not intended for use in patients <18 years of age. eGFR results are calculated without a race factor using the 2020 CKD-EPI equation. Careful clinical correlation is recommended, particularly when comparing to results calculated using previous equations. The CKD-EPI equation is less accurate in patients with extremes of muscle mass, extra-renal metabolism of creatine, excessive creatine ingestion, or following therapy that affects renal tubular secretion. Performed By: #### KATHERINE Holland CDP, CP #### [address] [place], [place] [phone] Research Advisor: Rodger Dykes MD Glucose [Mass/Vol] 103 mg/dL High 74-99 [facility] Comment on above: Performed By: #### KATHERINE Holland CDP, CP #### [address] [place], [place] [id number] Research Advisor: Rodger Dykes MD Potassium [Moles/Vol] 4.0 mmol/L Normal 3.7-5.3 [facility] Comment on above: Performed By: #### KATHERINE Holland CDP, CP #### [facility] [address] [place] [address] Research Advisor: Rodger Dykes MD Protein [Mass/Vol] 7.5 g/dL Normal 6.6-8.7 [facility] Comment on above: Performed By: #### KATHERINE Holland CDP, CP #### [facility] [address] [place] [address] Dr. [place], [place] [id number] Research Advisor: Rodger Dykes MD Sodium [Moles/Vol] 140 mmol/L Normal 136-145 [facility] Comment on above: Performed By: #### M KATHERINE Lara CDP, CP #### [address] [place], [place] [phone] Research Advisor: Rodger Dykes MD Urea nitrogen [Mass/Vol] 8 mg/dL Normal 6-20 [facility] Comment on above: Performed By: #### M KATHERINE Lara CDP, CP #### [address] [place], [place] [phone] Research Advisor: Rodger Dykes MD Drug Scr, Abuse, Uron 2024 Cannabinoid(s),Ur Positive Abnormal NEG [facility] Comment on above: Result Comment: Cuto ff: 50 ng/ml Performed By: #### A LCB, ACET #### [address] [place], [place] [id number] Research Advisor: Rodger Dykes MD Fentanyl, Urine Negative Normal NEG [facility] Comment on above: Result Comment: Cuto ff: 5 ng/ml Performed By: #### A LCB, ACET #### [address] [place], [place] [id number] Research Advisor: Rodger Dykes MD Amphetamine(s),Ur Negative Normal NEG [facility] Comment on above: Result Comment: Cuto ff: 1000 ng/mL Performed By: #### A LCB, ACET #### [address] [place], [place] [id number] Research Advisor: Rodger Dykes MD Barbiturate(s),Ur Negative Normal NEG [facility] Comment on above: Result Comment: Cuto ff: 200 ng/ml Performed By: #### A LCB, ACET #### [address] [place] [address] Research Advisor: Rodger Dykes MD Benzodiazepine(s) Negative Normal NEG [facility] Comment on above: Result Comment: Cuto ff: 200 ng/ml Performed By: #### A LCB, ACET #### [address] [place] [address] Research Advisor: Rodger Dykes MD Buprenorphrine, Ur Negative Normal NEG [facility] Comment on above: Result Comment: Cuto ff: 5 ng/ml Performed By: #### A LCB, ACET #### [address] [place] [address] Research Advisor: Rodger Dykes MD Cocaine Metabolite Negative Normal [facility] Comment on above: Result Comment: Cuto ff: 300 ng/ml Performed By: #### A LCB, ACET #### [address] [place] [address] Research Advisor: Rodger Dykes MD Methadone Ql (U) Negative [facility] Comment on above: Result Comment: Cuto ff: 300 ng/ml Performed By: #### A LCB, ACET #### [address] [place], [place] [phone] Research Advisor: Rodger Dykes MD Opiate(s), Ur Negative Normal [facility] Comment on above: Result Comment: Cuto ff: 300 ng/ml Note: The Opiate screen is not intended to detect Oxycodone. Performed By: #### A LCB, ACET #### [facility] [address] [place] [address] Dr. [place], [place] [id number] Research Advisor: Rodger Dykes MD Oxycodone, Urine Negative Normal [facility] Comment on above: Result Comment: Cuto ff: 100 ng/ml Performed By: #### A LCB, ACET #### [address] [place] [address] Research Advisor: Rodger Dykes MD Phencyclidine, Ur Negative Normal NEG [facility] Comment on above: Result Comment: Cuto ff: 25 ng/ml Performed By: #### A KRAIGB, ACET #### [facility] [address] [place] [address] Research Advisor: Rodger Dykes MD ETOHon [id number] Ethanol percent Can not be calculated NINF - 0. 010 % [facility] Ethanolamine [Mass/Vol] <10 NINF - 10 mg/dL [facility] Ethanol Alcoholon 09-09-2024 Ethanol [Mass/Vol] mg/dL Normal <10 [facility] Comment on above: Performed By: #### A KRAIGB, ACET #### [address] [place] [address] Research Advisor: Rodger Dykes MD Ethanol percent Can not be calculated Normal <0.010 [facility] Comment on above: Performed By: #### A BETO, ACET #### [address] [place] [address] Research Advisor: Rodger Dykes MD HCG, ,Urineon [id number] Beta HCG ( test) Ql (U) Negative Normal NEG [facility] Comment on above: Result Comment: Spec imens with hCG levels near the threshold of the test (25 mIU/mL) may give a negative or indeterminate result. In such cases, another test should be performed with a new specimen in 48-72 hours. If early is suspected clinically in this setting, correlation with quantitative serum b-hCG level is suggested. [facility] has confirmed the use of plasma for this test. This has not been cleared or approved by the U.S. Food and Drug Administration. The FDA has determined that such clearance is not necessary. Performed By: #### A BETO, ACET #### [facility] [address] [place] [address] [place] [address] Research Advisor: Rodger Dykes MD Magnesiumon 09-09-2024 Magnesium [Mass/Vol] 1.8 mg/dL 1.6 - 2.6 mg/dL [facility] Magnesium [Mass/Vol] 1.8 mg/dL Normal 1.6-2.6 [facility] Comment on above: Performed By: #### KATHERINE Holland CDP, CP #### [facility] [address] [place] [address] Research Advisor: Rodger Dykes MD No Panel Informationon 09-09 Interpretation and review of laboratory results Abnormal [facility] , Urineon HCG ( test) Ql (U) Negative NEGATIVE [facility] Comment on above: Specimens with hCG l evels near the threshold of the test (25 mIU/mL) may give a negative or indeterminate result. In such cases, another test should be performed with a new specimen in 48-72 hours. If early is suspected clinically in this setting, correlation with quantitative serum b-hCG level is suggested. [facility] has confirmed the use of plasma for this test. This has not been cleared or approved by the U.S. Food and Drug Administration. The FDA has determined that such clearance is not necessary. [facility] Salicylateon 09-09-2024 Salicylates [Mass/Vol] mg/dL 0.0 - 10.0 mg/dL [facility] Salicylate <0.5 Normal 0.0-10.0 [facility] Comment on above: Performed By: #### KATHERINE Holland CDP, CP #### [facility] [address] [place] [address] Research Advisor: Rodger Dykes MD Urine Drug Screenon 09-10-19 25 Amphetamines Ql (U) Negative NEGATIVE [facility] Comment on above: Cutoff: 1000 ng/mL Barbiturates Screen Ql (U) Negative NEGATIVE [facility] Comment on above: Cutoff: 200 ng/ml Benzodiazepines Ql (U) Negative NEGATIVE [facility] Comment on above: Cutoff: 200 ng/ml Buprenorphine Ql (U) Negative NEGATIVE [facility] Comment on above: Cutoff: 5 ng/ml Cannabinoids Screen Ql (U) Positive Abnormal NEGATIVE [facility] Comment on above: Cutoff: 50 ng/ml Cocaine Ql (U) Negative NEGATIVE [facility] [facility] Comment on above: Cutoff: 300 ng/ml fentaNYL Ql (U) Negative NEGATIVE [facility] Comment on above: Cutoff: 5 ng/ml Methadone Ql (U) Negative NEGATIVE [facility] Comment on above: Cutoff: 300 ng/ml Opiates Screen Ql (U) Negative NEGATIVE [facility] Comment on above: Cutoff: 300 ng/ml Note: The Opiate screen is not intended to detect Oxycodone. oxyCODONE Ql (U) Negative NEGATIVE [facility] Comment on above: Cutoff: 100 ng/ml Phencyclidine Ql (U) Negative NEGATIVE [facility] Comment on above: Cutoff: 25 ng/ml Basic Metabolic Panelon 04-0 Anion gap [Moles/Vol] 14 mmol/L 9 - 16 mmol/L [facility] [employer] Calcium [Mass/Vol] 9.5 mg/dL 8.6 - 10. 4 mg/dL [facility] Chloride [Moles/Vol] 105 mmol/L 98 - 107 mmol/L [facility] CO2 [Moles/Vol] 21 mmol/L 20 - 31 mmol/L [facility] [employer] Creatinine [Mass/Vol] 0.8 mg/dL 0.50 - 0.90 mg/dL [facility] Est, Glom Filt Rate - PINF [facility] [employer] Comment on above: These results are not intended for use in patients <18 years of age. eGFR results are calculated without a race factor using the 2020 CKD-EPI equation. Careful clinical correlation is recommended, particularly when comparing to results calculated using previous equations. The CKD-EPI equation is less accurate in patients with extremes of muscle mass, extra-renal metabolism of creatine, excessive creatine ingestion, or following therapy that affects renal tubular secretion. Glucose [Mass/Vol] 104 mg/dL High 74 - 99 mg/dL [facility] [employer] Interpretation and review of laboratory results Abnormal [facility] Potassium [Moles/Vol] 3.9 mmol/L 3.7 - 5.3 mmol/L [facility] Sodium [Moles/Vol] 140 mmol/L 136 - 145 mmol/L [facility] Urea nitrogen [Mass/Vol] 8 mg/dL 6 - 20 mg/dL [facility] Urea nitrogen/Creatinine [Mass ratio] 10 mg/mg 9 - 20 [facility] Basic Metabolic Profon 08-17 Anion gap [Moles/Vol] 14 mmol/L Normal 9-16 [facility] Comment on above: Performed By: #### A LCB, ACET #### [facility] [address] [place] [address] Research Advisor: Rodger Dykes MD BUN/CRE Ratio 10 Normal - [facility] Comment on above: Performed By: #### A LCB, ACET #### [facility] [address] [place] [address] Research Advisor: Rodger Dykes MD Calcium [Mass/Vol] 9.5 mg/dL Normal 8.6-10.4 [facility] Comment on above: Performed By: #### A KRAIGB, ACET #### [facility] [address] [place] [address] Research Advisor: Rodger Dykes MD Chloride [Moles/Vol] 105 mmol/L Normal 98-107 [facility] Comment on above: Performed By: #### A LCB, ACET #### [facility] [address] [place] [address] Research Advisor: Rodger Dykes MD CO2 [Moles/Vol] 21 mmol/L Normal 20-31 [facility] Comment on above: Performed By: #### A LCB, ACET #### [facility] [address] [place] [address] Research Advisor: Rodger Dykes MD Creatinine [Mass/Vol] 0.8 mg/dL Normal 0.50-0.90 [facility] Comment on above: Performed By: #### A KRAIGB, ACET #### [facility] [address] [place] [address] Research Advisor: Rodger Dykes MD GFR/1.73 sq M.predicted among non-blacks MDRD (S/P/Bld) [Vol rate/Area] mL/min/{1.73_m2} Normal >60 [facility] Comment on above: Result Comment: These results are not intended for use in patients <18 years of age. eGFR results are calculated without a race factor using the 2020 CKD-EPI equation. Careful clinical correlation is recommended, particularly when comparing to results calculated using previous equations. The CKD-EPI equation is less accurate in patients with extremes of muscle mass, extra-renal metabolism of creatine, excessive creatine ingestion, or following therapy that affects renal tubular secretion. Performed By: #### A BETO, ACET #### [address] [place] [address] Research Advisor: Rodger Dykes MD Glucose [Mass/Vol] 104 mg/dL High 74-99 [facility] Comment on above: Performed By: #### A BETO, ACET #### [address] [place] [address] Research Advisor: Rodger Dykes MD Potassium [Moles/Vol] 3.9 mmol/L Normal 3.7-5.3 [facility] Comment on above: Performed By: #### A BETO, ACET #### [facility] [address] [place] [address] Research Advisor: Rodger Dykes MD Sodium [Moles/Vol] 140 mmol/L Normal 136-145 [facility] Comment on above: Performed By: #### A BETO, ACET #### [facility] [address] [place] [address] Research Advisor: Rodger Dykes MD Urea nitrogen [Mass/Vol] 8 mg/dL Normal 6-20 [facility] Comment on above: Performed By: #### A BETO, ACET #### [facility] [address] [place] [address] Research Advisor: Rodger Dykes MD [facility] Albumin [Mass/Vol] 4.5 g/dL 3.5 - 5.2 g/dL [facility] Albumin/Globulin [Mass ratio] 1.7 {ratio} 1.0 - 2.5 [facility] ALP [Catalytic activity/Vol] 82 U/L 35 - 104 U/L [facility] ALT [Catalytic activity/Vol] 18 U/L 10 - 35 U/L [facility] AST [Catalytic activity/Vol] 19 U/L 10 - 35 U/L [facility] Bilirubin [Mass/Vol] 0.4 mg/dL 0.00 - 1.20 mg/dL [facility] Protein [Mass/Vol] 7.2 g/dL 6.6 - 8.7 g/dL [facility] CBC with Auto Differentialon 08-17-2024 Basophils (Bld) [#/Vol] 0.06 10*3/uL [facility] Basophils/100 WBC (Bld) 1 % 0 - 2 % [facility] Eosinophils (Bld) [#/Vol] 0.18 10*3/uL [facility] Eosinophils/100 WBC (Bld) 2 % 1 - 4 % [facility] Erythrocyte distribution width (RBC) [Ratio] 12.7 % 11.8 - 14.4 % [facility] Hematocrit (Bld) [Volume fraction] 44.5 % 36.3 - 47.1 % [facility] Hemoglobin (Bld) [Mass/Vol] 15.5 g/dL High 11.9 - 15.1 g/dL [facility] Immature granulocytes (Bld) [#/Vol] [facility] Immature granulocytes/100 WBC (Bld) 0 % 0 [facility] Interpretation and review of laboratory results Abnormal [facility] Lymphocytes/100 WBC (Bld) 9 % Low 24 - 43 % [facility] Lymphocytes/100 WBC (Bld) 0.93 % Low [facility] MCH (RBC) [Entitic mass] 31.1 pg 25.2 - 33.5 pg [facility] MCHC (RBC) [Mass/Vol] 34.8 g/dL 28.4 - 34.8 g/dL [facility] MCV (RBC) [Entitic vol] 89.4 fL 82.6 - 102.9 fL [facility] Monocytes/100 WBC (Bld) 3 % 3 - 12 % [facility] Monocytes/100 WBC (Bld) 0.28 % [facility] Neutrophils/100 WBC (Bld) 85 % High 36 - 65 % [facility] Nucleated RBC/100 WBC (Bld) [Ratio] 0 % 0.0 per 100 WBC [facility] Platelet mean volume (Bld) [Entitic vol] 11.1 fL 8.1 - 13.5 fL [facility] Platelets (Bld) [#/Vol] 267 10*3/uL [facility] RBC (Bld) [#/Vol] 4.98 10*6/uL 3.95 - 5.1 1 m/uL [facility] Segmented neutrophils/100 WBC (Bld) 8.59 % High [facility] WBC other (Bld) [#/Vol] 10.1 [facility] CBC with Diffon 08-17-2024 Abs. Basophil 0.06 k/uL Normal 0.00-0.20 [facility] Comment on above: Performed By: #### A KRAIGB, ACET #### [facility] [address] [place] [address] Research Advisor: Rodger Dykes MD Abs.Imm.Granulocyte <0.03 Normal 0.00-0.30 [facility] Comment on above: Performed By: #### A LCB, ACET #### [facility] [address] [place] [address] Research Advisor: Rodger Dykes MD Abs.Neutrophil (Seg) 8.59 k/uL High 1.50-8.10 [facility] Comment on above: Performed By: #### A LCB, ACET #### [address] [place], [place] [address] Research Advisor: Rodger Dykes MD Basophils/100 WBC (Bld) 1 % Normal 0-2 [facility] Comment on above: Performed By: #### A LCB, ACET #### [address] [place], [place] [address] Research Advisor: Rodger Dykes MD Eosinophils (Bld) [#/Vol] 0.18 10*3/uL Normal 0.00-0.44 [facility] Comment on above: Performed By: #### A LCB, ACET #### [address] [place], [facility]83 Research Advisor: Rodger Dykes MD Eosinophils/100 WBC (Bld) 2 % Normal 1-4 [facility] Comment on above: Performed By: #### A KRAIGB, ACET #### [address] [place], [facility]83 Research Advisor: Rodger Dykes MD Erythrocyte distribution width (RBC) [Ratio] 12.7 % Normal 11.8-14.4 [facility] Comment on above: Performed By: #### A KRAIGB, ACET #### [address] [place], [place] [address] Research Advisor: Rodger Dykes MD Hematocrit (Bld) [Volume fraction] 44.5 % Normal 36.3-47.1 [facility] Comment on above: Performed By: #### A LCB, ACET #### [address] [place], [facility]83 Research Advisor: Rodger Dykes MD Hemoglobin (Bld) [Mass/Vol] 15.5 g/dL High 11.9-15.1 [facility] Comment on above: Performed By: #### A LCB, ACET #### [address] [place], [place] [id number] Research Advisor: Rodger Dykes MD Immature granulocytes/100 WBC (Bld) 0 % Normal 0 [facility] Comment on above: Performed By: #### A LCB, ACET #### [address] [place], [facility]83 Research Advisor: Rodger Dykes MD Lymphocytes (Bld) [#/Vol] 0.93 10*3/uL Low 1.10-3.70 [facility] Comment on above: Performed By: #### A LCB, ACET #### [address] [place], [facility]83 Research Advisor: Rodger Dykes MD Lymphocytes/100 WBC (Bld) 9 % Low 24-43 [facility] Comment on above: Performed By: #### A LCB, ACET #### [address] [place], [facility]83 Research Advisor: Rodger Dykes MD MCH (RBC) [Entitic mass] 31.1 pg Normal 25.2-33.5 [facility] Comment on above: Performed By: #### A LCB, ACET #### [address] [place], [facility]83 Research Advisor: Rodger Dykes MD MCHC (RBC) [Mass/Vol] 34.8 g/dL Normal 28.4-34.8 [facility] Comment on above: Performed By: #### A LCB, ACET #### [address] [place] [address] Research Advisor: Rodger Dykes MD MCV (RBC) [Entitic vol] 89.4 fL Normal 82.6-102.9 [facility] Comment on above: Performed By: #### A LCB, ACET #### [address] [place], [place] [id number] Research Advisor: Rodger Dykes MD Monocytes (Bld) [#/Vol] 0.28 10*3/uL Normal 0.10-1.20 [facility] Comment on above: Performed By: #### A LCB, ACET #### [address] [place], [place] [id number] Research Advisor: Rodger Dykes MD Monocytes/100 WBC (Bld) 3 % Normal 3-12 [facility] Comment on above: Performed By: #### A LCB, ACET #### [address] [place], [place] [address] Research Advisor: Rodger Dykes MD Neutrophil (Seg) 85 % High 36-65 [facility] Comment on above: Performed By: #### A LCB, ACET #### [address] [place], [facility]83 Research Advisor: Rodger Dykes MD NRBC Automated 0.0 per 100 WBC Normal 0.0 [facility] Comment on above: Performed By: #### A LCB, ACET #### [address] [place], [facility]83 Research Advisor: Rodger Dykes MD Platelet mean volume (Bld) [Entitic vol] 11.1 fL Normal 8.1-13.5 [facility] Comment on above: Performed By: #### A LCB, ACET #### [address] [place], [place] [id number] Research Advisor: Rodger Dykes MD Platelets (Bld) [#/Vol] 267 10*3/uL Normal 138-453 [facility] Comment on above: Performed By: #### A LCB, ACET #### [address] [place], [place] [id number] Research Advisor: Rodger Dykes MD RBC (Bld) [#/Vol] 4.98 10*6/uL Normal 3.95-5.11 [facility] Comment on above: Performed By: #### A BETO, ACET #### [facility] [address] [place], [place] [id number] Research Advisor: Rodger Dykes MD WBC (Bld) [#/Vol] 10.1 10*3/uL Normal 3.5-11.3 [facility] Comment on above: Performed By: #### A KRAIGB, ACET #### [facility] [address] [place], [place] [id number] Research Advisor: Rodger Dykes MD Comp Metabolic Addonon 08-17 Albumin [Mass/Vol] 4.5 g/dL Normal 3.5-5.2 [facility] Comment on above: Performed By: #### A BETO, ACET #### [address] [place], [place] [id number] Research Advisor: Rodger Dykes MD Albumin/Glob Ratio 1.7 Normal 1.0-2.5 [facility] Comment on above: Performed By: #### A BETO, ACET #### [address] [place], [place] [id number] Research Advisor: Rodger Dykes MD Alkaline Phos 82 U/L Normal 35-104 [facility] Comment on above: Performed By: #### A BETO, ACET #### [address] [place], [place] [id number] Research Advisor: Rodger Dykes MD ALT [Catalytic activity/Vol] 18 U/L Normal 10-35 [facility] Comment on above: Performed By: #### A BETO, ACET #### [address] [place] [address] Research Advisor: Rodger Dykes MD AST [Catalytic activity/Vol] 19 U/L Normal 10-35 [facility] Comment on above: Performed By: #### A LCB, ACET #### [facility] [address] [place], [place] [id number] Research Advisor: Rodger Dykes MD Bilirubin [Mass/Vol] 0.4 mg/dL Normal 0.00-1.20 [facility] Comment on above: Performed By: #### A LCB, ACET #### [facility] [address] [place], [place] [id number] Research Advisor: Rodger Dykes MD Protein [Mass/Vol] 7.2 g/dL Normal 6.6-8.7 [facility] Comment on above: Performed By: #### A LCB, ACET #### [facility] [address] [place], [place] [id number] Research Advisor: Rodger Dykes MD Drug Scr, Abuse, Uron 2024 Cannabinoid(s),Ur Positive Abnormal NEG [facility] Comment on above: Result Comment: Cuto ff: 50 ng/ml Performed By: #### A LCB, ACET #### [address] [place], [place] [id number] Research Advisor: Rodger Dykes MD Amphetamine(s),Ur Negative Normal NEG [facility] Comment on above: Result Comment: Cuto ff: 1000 ng/mL Performed By: #### A LCB, ACET #### [address] [place], [facility]83 Research Advisor: Rodger Dykes MD Barbiturate(s),Ur Negative Normal NEG [facility] Comment on above: Result Comment: Cuto ff: 200 ng/ml Performed By: #### A LCB, ACET #### [facility] [address] [place], [place] [id number] Research Advisor: Rodger Dykes MD Benzodiazepine(s) Negative Normal NEG [facility] Comment on above: Result Comment: Cuto ff: 200 ng/ml Performed By: #### A LCB, ACET #### [facility] [address] [place] [address] Dr[place], [place] [id number] Research Advisor: Rodger Dykes MD Buprenorphrine, Ur Negative [facility] Comment on above: Result Comment: Cuto ff: 5 ng/ml Performed By: #### A LCB, ACET #### [facility] [address] [place] [address] Dr[place], [place] [id number] Research Advisor: Rodger Dykes MD Cocaine Metabolite Negative [facility] Comment on above: Result Comment: Cuto ff: 300 ng/ml Performed By: #### A LCB, ACET #### [address] [place] [address] Research Advisor: Rodger Dykes MD Fentanyl, Urine Negative [facility] Comment on above: Result Comment: Cuto ff: 5 ng/ml Performed By: #### A LCB, ACET #### [address] [place], [place] [id number] Research Advisor: Rodger Dykes MD Interpretive Info This method is a screening test to detect only these drug classes as part of a Normal [facility] Comment on above: Result Comment: medi shyam workup. Confirmatory testing by another method should be ordered if clinically indicated. Performed By: #### A LCB, ACET #### [address] [place], [place] [id number] Research Advisor: Rodger Dykes MD Methadone Ql (U) Negative [facility] Comment on above: Result Comment: Cuto ff: 300 ng/ml Performed By: #### A LCB, ACET #### [address] [place], [place] [id number] Research Advisor: Rodger Dykes MD Opiate(s), Ur Negative Normal [facility] Comment on above: Result Comment: Cuto ff: 300 ng/ml Note: The Opiate screen is not intended to detect Oxycodone. Performed By: #### A LCB, ACET #### [facility] [address] [place] [address] Research Advisor: Rodger Dykes MD Oxycodone, Urine Negative Normal NEG [facility] Comment on above: Result Comment: Cuto ff: 100 ng/ml Performed By: #### A LCB, ACET #### [facility] [address] [place] [address] Research Advisor: Rodger Dykes MD Phencyclidine, Ur Negative Normal NEG [facility] Comment on above: Result Comment: Cuto ff: 25 ng/ml Performed By: #### A KRAIGB, ACET #### [address] [place] [address] Research Advisor: Rodger Dykes MD HCG, ,Urineon 08-17 Beta HCG ( test) Ql (U) Negative Normal NEG [facility] Comment on above: Result Comment: Spec imens with hCG levels near the threshold of the test (25 mIU/mL) may give a negative or indeterminate result. In such cases, another test should be performed with a new specimen in 48-72 hours. If early is suspected clinically in this setting, correlation with quantitative serum b-hCG level is suggested. [facility] has confirmed the use of plasma for this test. This has not been cleared or approved by the U.S. Food and Drug Administration. The FDA has determined that such clearance is not necessary. Performed By: #### A KRAIGB, ACET #### [facility] [address] [place] [address] [place] [address] Research Advisor: Rodger Dykes MD Microscopic Urinalysison Bacteria LM Ql (Urine sed) 1+ Abnormal None [facility] Epithelial cells LM.HPF (Urine sed) [#/Area] 5 TO 10 [facility] Interpretation and review of laboratory results Abnormal [facility] RBC LM.HPF (Urine sed) [#/Area] None [facility] WBC LM.HPF (Urine sed) [#/Area] 2 TO 5 [facility] , Urineon HCG ( test) Ql (U) Negative NEGATIVE [facility] Comment on above: Specimens with hCG l evels near the threshold of the test (25 mIU/mL) may give a negative or indeterminate result. In such cases, another test should be performed with a new specimen in 48-72 hours. If early is suspected clinically in this setting, correlation with quantitative serum b-hCG level is suggested. [facility] [employer] has confirmed the use of plasma for this test. This has not been cleared or approved by the U.S. Food and Drug Administration. The FDA has determined that such clearance is not necessary. [facility] UA w/Reflex Cultureon 2024 Bilirubin, SemiQt,Ur Negative Normal NEG [facility] Comment on above: Performed By: #### A LCB, ACET #### [facility] [address] [place] [address] [place] [address] Research Advisor: Rodger Dykes MD Blood, Urine TRACE Abnormal NEG [facility] Comment on above: Performed By: #### A KRAIGB, ACET #### [address] [place] [address] Research Advisor: Rodger Dykes MD Clarity (U) Clear Normal CLEAR [facility] Comment on above: Performed By: #### A KRAIGB, ACET #### [facility] [address] [place] [address] [place] [address] Research Advisor: Rodger Dykes MD Color (U) Yellow Normal YEL [facility] Comment on above: Performed By: #### A LCB, ACET #### [facility] [address] [place] [address] [place] [address] Research Advisor: Rodger Dykes MD Glucose Ql (U) Negative Normal NEG [facility] Comment on above: Performed By: #### A KRAIGB, ACET #### [facility] [address] [place] [address] [place], [place] [id number] Research Advisor: Rodger Dykes MD Ketones Ql (U) 1+ mg/dL Abnormal NEG [facility] Comment on above: Performed By: #### A LCB, ACET #### [address] [place], [place] [phone] Research Advisor: Rodger Dykes MD Leukocyte esterase Test strip Ql (U) TRACE Abnormal NEG [facility] Comment on above: Performed By: #### A LCB, ACET #### [address] [place], [place] [id number] Research Advisor: Rodger Dykes MD Nitrite,Ur Negative Normal NEG [facility] Comment on above: Performed By: #### A LCB, ACET #### [address] [place], [place] [id number] Research Advisor: Rodger Dykes MD PH,Ur 6.0 Normal 5.0-9.0 [facility] Comment on above: Performed By: #### A LCB, ACET #### [address] [place], [place] [id number] Research Advisor: Rodger Dykes MD Protein Ql (U) Negative Normal NEG [facility] Comment on above: Performed By: #### A LCB, ACET #### [address] [place], [place] [id number] Research Advisor: Rodger Dykes MD Spec. [facility],Ur 1.010 Normal 1.010-1.020 [facility] Comment on above: Performed By: #### A LCB, ACET #### [address] [place] [address] Research Advisor: Rodger Dykes MD Urobilinogen,Ur Normal Normal 0.0-1.0 [facility] Comment on above: Performed By: #### A LCB, ACET #### [address] [place] [address] Research Advisor: Rodger Dykes MD Urinalysis with Reflex to Cu ltureon 08-17-2024 Bilirubin Ql (U) Negative NEGATIVE [facility] Clarity (U) Clear Clear [facility] Color (U) Yellow Yellow [facility] Glucose Test strip (U) [Mass/Vol] Negative NEGATIVE mg/dL [facility] Hemoglobin Auto test strip Ql (U) TRACE Abnormal NEGATIVE [facility] Interpretation and review of laboratory results Abnormal [facility] Ketones (U) [Mass/Vol] 1+ Abnormal NEGATIVE mg/d L [facility] Leukocyte esterase Test strip Ql (U) TRACE Abnormal NEGATIVE [facility] Nitrite Ql (U) Negative NEGATIVE [place] [facility] pH (U) 6 [pH] 5.0 - 9.0 [facility] Protein (U) [Mass/Vol] Negative NEGATIVE mg/d L [facility] Specific gravity (U) [Rel density] 1.01 1.010 - 1.020 [facility] Urobilinogen Qn (U) Normal 0.0 - 1.0 EU/dL [facility] Urinalysis,Microon 5 Bacteria 1+ Abnormal NONE [facility] Comment on above: Performed By: #### A LCB, ACET #### [facility] [address] [place] [address] Research Advisor: Rodger Dykes MD Epithelial cells LM Ql (Urine sed) 5 TO 10 Normal 0-25 [facility] Comment on above: Performed By: #### A LCB, ACET #### [facility] [address] [place] [address] Research Advisor: Rodger Dykes MD Urine RBC's None Normal 0-2 [facility] Comment on above: Performed By: #### A LCB, ACET #### [facility] [address] [place] [address] Research Advisor: Rodger Dykes MD Urine WBC's 2 TO 5 Normal 0-5 [facility] Comment on above: Performed By: #### A LCB, ACET #### [facility] [address] [place] [address] Research Advisor: Rodger Dykes MD Urine Drug Screenon 08-18-19 25 Amphetamines Ql (U) Negative NEGATIVE [facility] Comment on above: Cutoff: 1000 ng/mL Barbiturates Screen Ql (U) Negative NEGATIVE [facility] Comment on above: Cutoff: 200 ng/ml Benzodiazepines Ql (U) Negative NEGATIVE [facility] Comment on above: Cutoff: 200 ng/ml Buprenorphine Ql (U) Negative NEGATIVE [facility] Comment on above: Cutoff: 5 ng/ml Cannabinoids Screen Ql (U) Positive Abnormal NEGATIVE [facility] Comment on above: Cutoff: 50 ng/ml Cocaine Ql (U) Negative NEGATIVE [place] [facility] Comment on above: Cutoff: 300 ng/ml fentaNYL Ql (U) Negative NEGATIVE [facility] Comment on above: Cutoff: 5 ng/ml Interpretation and review of laboratory results Abnormal [facility] Methadone Ql (U) Negative NEGATIVE [facility] Comment on above: Cutoff: 300 ng/ml Opiates Screen Ql (U) Negative NEGATIVE [facility] Comment on above: Cutoff: 300 ng/ml Note: The Opiate screen is not intended to detect Oxycodone. oxyCODONE Ql (U) Negative NEGATIVE [facility] Comment on above: Cutoff: 100 ng/ml Phencyclidine Ql (U) Negative NEGATIVE [facility] Comment on above: Cutoff: 25 ng/ml Test Information This method is a screening test to detect only these drug classes as part of a medical workup. Confirmatory testing by another method should be ordered if clinically indicated. [facility] Cholesterol [Mass/volume] in Serum or PlasmaOrdered By: Brent Simmons on 07-15-2024 Cholesterol [Mass/Vol] Cholesterol [Mass/volume] in Serum or Plasma 140-200 [facility] Comment on above: Chol less than 200 m g/dl low riskChol 201-239 mg/dl borderline riskChol 240 mg/dl and greater high risk Cholesterol in HDL [Mass/vol ume] in Serum or PlasmaOrdered By: Brent Simmons on 07-15-2024 Cholesterol in HDL [Mass/Vol] Serum or plasma high density lipoprotein (HDL) cholesterol measurement [facility] Comment on above: HDL CHOL ATP-III CLA SSIFICATION Cardiovascular RiskHDL > or equal to 60 mg/dL LOWHDL < 40 mg/dL HIGH Cholesterol in LDL Calc [Mas s/Vol]Ordered By: Brent Simmons on 07-15-2024 Cholesterol in LDL [Mass/Vol] Cholesterol in LDL [Mass/volume] in Serum or Plasma by calculation High 0-100 [facility] Comment on above: LDL ATP III CLASSIFI CATIONLDL less than 100 mg/dL OptimalLDL 100-129 mg/dL Near or above optimalLDL 130-159 mg/dL Borderline highLDL 160-189 mg/dL HighLDL greater than 189 mg/dL Very high Cholesterol in VLDL Calc [Ma ss/Vol]Ordered By: Brent Simmons on 07-15-2024 Cholesterol in VLDL [Mass/Vol] Cholesterol in VLDL [Mass/volume] in Serum or Plasma by calculation [facility] Lipid Panelon 07-15-2024 Cholesterol [Mass/Vol] 198 mg/dL Normal 140-200 [facility] Comment on above: Order Comment: GÉNESIS Costa SAID TO RETIME FOR TOMORROW. ARR 0547. Result Comment: Chol less than 200 mg/dl low risk Chol 201-239 mg/dl borderline risk Chol 240 mg/dl and greater high risk Performed By: #### V [id number], LIPID, TSH3 wRFLX ####[facility] [id number] Cholesterol in HDL [Mass/Vol] 50 mg/dL Normal [facility] Comment on above: Order Comment: GÉNESIS Costa SAID TO RETIME FOR TOMORROW. ARR 0547. Result Comment: HDL CHOL ATP-III CLASSIFICATION Cardiovascular Risk HDL > or equal to 60 mg/dL LOW HDL < 40 mg/dL HIGH Performed By: #### V [id number], LIPID, TSH3 wRFLX ####[facility] [id number] Cholesterol.total/Chol esterol in HDL [Mass ratio] 4.0 {ratio} Normal <5.0 [facility] Comment on above: Order Comment: GÉNESIS Costa SAID TO RETIME FOR TOMORROW. ARR 0547. Performed By: #### V [id number], LIPID, TSH3 wRFLX ####[address] LDL Cholesterol,Calculated 119 mg/dL High 0-100 [facility] Comment on above: Order Comment: SLITTER HELPER J Igor SAID TO RETIME FOR TOMORROW. ARR 0547. Result Comment: LDL ATP III CLASSIFICATION LDL less than 100 mg/dL Optimal LDL 100-129 mg/dL Near or above optimal LDL 130-159 mg/dL Borderline high LDL 160-189 mg/dL High LDL greater than 189 mg/dL Very high Performed By: #### V [id number], LIPID, TSH3 wRFLX ####[address] Triglyceride w/Reflex 147 mg/dL Normal 0-149 [facility] Comment on above: Order Comment: GÉNESIS Costa SAID TO RETIME FOR TOMORROW. ARR 0547. Result Comment: TRIG ATP III CLASSIFICATION TRIG less than 150 mg/dL Normal TRIG 150-199 mg/dL Borderline high TRIG 200-500 mg/dL High TRIG greater than 500 mg/dL Very high Standard traceable to the Center for Disease Conrtrol and Prevention (CDC) test method. Performed By: #### V [id number], LIPID, TSH3 wRFLX ####[address] VLDL CHOLESTEROL 29 mg/dL Normal [facility] Comment on above: Order Comment: SLITTER HELPER J Igor SAID TO RETIME FOR TOMORROW. ARR 0547. Performed By: #### V [id number], LIPID, TSH3 wRFLX ####[address] Serum or plasma total choles terol/high density lipoprotein (HDL) cholesterol mass ratOrdered By: Brent Simmons on 07-15-2024 Cholesterol.total/Chol esterol in HDL [Mass ratio] Serum or plasma total cholesterol/high density lipoprotein (HDL) cholesterol mass rat <5.0 [facility] Thyroid Stim Hormone w/Rflxo n 07-15-2024 Thyroid Stim Hormone w/Rflx 3.66 u[iU]/mL Normal 0.45-5.33 [facility] Comment on above: Order Comment: GÉENSIS Costa SAID TO RETIME FOR TOMORROW. ARR 0547. Performed By: #### V [id number], LIPID, TSH3 wRFLX ####[facility] [id number] [place] [address] [facility] Thyrotropin [Units/volume] i n Serum or PlasmaOrdered By: Brent Simmons on 07-15-2024 TSH Qn Thyrotropin [Units/volume] in Serum or Plasma 0.45-5.33 [facility] Triglyceride [Mass/volume] i n Serum or PlasmaOrdered By: Brent Simmons on 07-15-2024 Triglyceride [Mass/Vol] Triglyceride [Mass/volume] in Serum or Plasma 0-149 [facility] Comment on above: TRIG ATP III CLASSIF ICATIONTRIG less than 150 mg/dL NormalTRIG 150-199 mg/dL Borderline highTRIG 200-500 mg/dL High TRIG greater than 500 mg/dL Very highStandard traceable to the Center for Disease Conrtrol and Prevention (CDC) test method. Vitamin D 25 Hydroxy Totalon 07-15-2024 Vitamin D 25 Hydroxy Total 14.2 ng/mL Low 30-100 [facility] Comment on above: Order Comment: GÉNESIS Costa SAID TO RETIME FOR TOMORROW. ARR 0547. Result Comment: BA[place] MIN D STATUS 25(OH)VITAMIN D RANGE (ng/mL) Deficient <20 Insufficient 20 to <30 Sufficient 30 to 100 Reference: Janett MF,Dino NC, Mathew-Devonte HAIDER, et al. Evaluation,treatment, and prevention of vitamin D deficiency; an Endocrine Society clinical practice guideline. JCEM. 2010; 96(7):1911-30. PERFORMED BY: [facility] [address] [place] [address] PATHOLOGIST [employer] [place] CHOW M.D. Performed By: #### V [id number], LIPID, TSH3 wRFLX ####[facility] [id number] [place] [id number] [facility] Vitamin D+Metabolites [Mass/ volume] in Serum or PlasmaOrdered By: Brent Simmons on 07-15-2024 Vitamin D+Metabolites [Mass/Vol] Vitamin D+Metabolites [Mass/volume] in Serum or Plasma Low 30-100 [facility] [facility] Comment on above: VITAMIN D STATUS 25( [place])VITAMIN D RANGE (ng/mL) Deficient <20 Insufficient 20 to <30Sufficient 30 to 100Reference: Janett MF,Dino NC, Joe HAIDER, et al. Evaluation,treatment, and prevention of vitamin D deficiency; an Endocrine Society clinical practice guideline. JCEM. 2010; 96(7):1911-30. ECG 12 lead ECGon 07-14-2024 ECG 12 lead ECG [facility] [place] [address] Electrocardiograph Report Signed Patient: Roshan Willingham MR#: [id number] : 1990 Acct:[id number] Age/Sex: 33 / F ADM Date: 07/14/24 Loc: Room: [address] [place] [address] Type: ADM IN Attending Dr: Brent Simmons MD Ordering Provider: Brent Simmons MD Date of Service: 07/14/2410/03/499 ECG/ECG 12 lead ECG: baseline for psych meds Copies to: Test Reason : Blood Pressure : */* mmHG Vent. Rate : 88 BPM Atrial Rate : 88 BPM P-R Int : 144 ms QRS Dur : 88 ms QT Int : 368 ms P-R-T Axes : 47 43 45 degrees QTcB Int : 445 ms Normal sinus rhythm Cannot rule out Anterior infarct (cited on or before 16-Jun-2024) Abnormal ECG When compared with ECG of 16-Jun-2024 08:45, No significant change was found Confirmed by Salbador Zayas ([id number]) on 07/14/2024 7:59:59 PM Referred By: Electronically Signed By: Salbador Zayas Transcribed By: MUS Signed By Salbador Zayas MD 07/14/241958 Normal [facility] Acetaminophenon 07-13-2024 Acetaminophen [Mass/Vol] ug/mL Low 10-30 [facility] Comment on above: Performed By: #### M KATHERINE Lara, TRACI, KARLY, CP #### [facility] [address] [place] [address] Research Advisor: Rodger Dykes MD Acetaminophen Levelon 2024 Acetaminophen [Mass/Vol] ug/mL Low 10 - 30 ug/mL [facility] Interpretation and review of laboratory results Abnormal [facility] CBC with Auto Differentialon 07-13-2024 Basophils (Bld) [#/Vol] 0.07 10*3/uL [facility] Basophils/100 WBC (Bld) 1 % 0 - 2 % [facility] Eosinophils (Bld) [#/Vol] 0.16 10*3/uL [facility] Eosinophils/100 WBC (Bld) 2 % 1 - 4 % [facility] Erythrocyte distribution width (RBC) [Ratio] 12.5 % 11.8 - 14.4 % [facility] Hematocrit (Bld) [Volume fraction] 44.5 % 36.3 - 47.1 % [facility] Hemoglobin (Bld) [Mass/Vol] 15.3 g/dL High 11.9 - 15.1 g/dL [facility] Immature granulocytes (Bld) [#/Vol] 0.03 10*3/uL [facility] Immature granulocytes/100 WBC (Bld) 0 % 0 [facility] Interpretation and review of laboratory results Abnormal [facility] Lymphocytes/100 WBC (Bld) 12 % Low 24 - 43 % [facility] Lymphocytes/100 WBC (Bld) 1.29 % [facility] MCH (RBC) [Entitic mass] 31.0 pg 25.2 - 33.5 pg [facility] MCHC (RBC) [Mass/Vol] 34.4 g/dL 28.4 - 34.8 g/dL [facility] MCV (RBC) [Entitic vol] 90.1 fL 82.6 - 102.9 fL [facility] Monocytes/100 WBC (Bld) 4 % 3 - 12 % [facility] Monocytes/100 WBC (Bld) 0.37 % [facility] Neutrophils/100 WBC (Bld) 81 % High 36 - 65 % [facility] Nucleated RBC/100 WBC (Bld) [Ratio] 0.0 % 0.0 per 100 WBC [facility] Platelet mean volume (Bld) [Entitic vol] 10.5 fL 8.1 - 13.5 fL [facility] Platelets (Bld) [#/Vol] 255 10*3/uL [facility] RBC (Bld) [#/Vol] 4.94 10*6/uL 3.95 - 5.1 1 m/uL [facility] Segmented neutrophils/100 WBC (Bld) 8.46 % High [facility] WBC other (Bld) [#/Vol] 10.4 [facility] CBC with Diffon 07-13-2024 Abs. Basophil 0.07 k/uL Normal 0.00-0.20 [facility] Comment on above: Performed By: #### KATHERINE Holland CDP, ACET, CP #### [facility] [address] [place] [address] Research Advisor: Rodger Dykes MD Abs.Imm.Granulocyte 0.03 k/uL Normal 0.00-0.30 [facility] Comment on above: Performed By: #### KATHERINE Holland CDP, ACET, CP #### [facility] [address] [place] [address] Research Advisor: Rodger Dykes MD Abs.Neutrophil (Seg) 8.46 k/uL High 1.50-8.10 [facility] Comment on above: Performed By: #### KATHERINE Holland CDP, ACET, CP #### [facility] [address] [place] [address] Research Advisor: Rodger Dykes MD Basophils/100 WBC (Bld) 1 % Normal 0-2 [facility] Comment on above: Performed By: #### M G, SALI, CDP, ACET, CP #### [address] [place], [place] [id number] Research Advisor: Rodger Dykes MD Eosinophils (Bld) [#/Vol] 0.16 10*3/uL Normal 0.00-0.44 [facility] Comment on above: Performed By: #### M G, SALI, CDP, ACET, CP #### [address] [place] [address] Research Advisor: Rodger Dykes MD Eosinophils/100 WBC (Bld) 2 % Normal 1-4 [facility] Comment on above: Performed By: #### M G, SALI, CDP, ACET, CP #### [address] [place] [id number] Research Advisor: Rodger Dykes MD Erythrocyte distribution width (RBC) [Ratio] 12.5 % Normal 11.8-14.4 [facility] Comment on above: Performed By: #### M G, SALI, CDP, ACET, CP #### [address] [place] [address] Research Advisor: Rodger Dykes MD Hematocrit (Bld) [Volume fraction] 44.5 % Normal 36.3-47.1 [facility] Comment on above: Performed By: #### M G, SALI, CDP, ACET, CP #### [address] [place] [id number] Research Advisor: Rodger Dykes MD Hemoglobin (Bld) [Mass/Vol] 15.3 g/dL High 11.9-15.1 [facility] Comment on above: Performed By: #### M G, SALI, CDP, ACET, CP #### [address] [place], [place] [id number] Research Advisor: Rodger Dykes MD Immature granulocytes/100 WBC (Bld) 0 % Normal 0 [facility] Comment on above: Performed By: #### M G, SALI, CDP, ACET, CP #### [address] [place], [place] [address] Research Advisor: Rodger Dykes MD Lymphocytes (Bld) [#/Vol] 1.29 10*3/uL Normal 1.10-3.70 [facility] Comment on above: Performed By: #### M G, SALI, CDP, ACET, CP #### [address] [place], [facility] Research Advisor: Rodger Dykes MD Lymphocytes/100 WBC (Bld) 12 % Low 24-43 [facility] Comment on above: Performed By: #### M G, SALI, CDP, ACET, CP #### [address] [place], [facility] Research Advisor: Rodger Dykes MD MCH (RBC) [Entitic mass] 31.0 pg Normal 25.2-33.5 [facility] Comment on above: Performed By: #### Margarita Lara, SALI, CDP, ACET, CP #### [address] [place], [facility] Research Advisor: Rodger Dykes MD MCHC (RBC) [Mass/Vol] 34.4 g/dL Normal 28.4-34.8 [facility] Comment on above: Performed By: #### M G, SALI, CDP, ACET, CP #### [address] [place], [facility] Research Advisor: Rodger Dykes MD MCV (RBC) [Entitic vol] 90.1 fL Normal 82.6-102.9 [facility] Comment on above: Performed By: #### M G, SALI, CDP, ACET, CP #### [address] [place], [facility] Research Advisor: Rodger Dykes MD Monocytes (Bld) [#/Vol] 0.37 10*3/uL Normal 0.10-1.20 [facility] Comment on above: Performed By: #### M G, SALI, CDP, ACET, CP #### [facility] [address] [place], [place] [id number] Research Advisor: Rodger Dykes MD Monocytes/100 WBC (Bld) 4 % Normal 3-12 [facility] Comment on above: Performed By: #### M G, SALI, CDP, ACET, CP #### [facility] [address] [place] [address] Research Advisor: Rodger Dykes MD Neutrophil (Seg) 81 % High 36-65 [facility] Comment on above: Performed By: #### M G, SALI, CDP, ACET, CP #### [address] [place], [facility] Research Advisor: Rodger Dykes MD NRBC Automated 0.0 per 100 WBC Normal 0.0 [facility] Comment on above: Performed By: #### Margarita Lara, SALI, CDP, ACET, CP #### [address] [place], [place] [id number] Research Advisor: Rodger Dykes MD Platelet mean volume (Bld) [Entitic vol] 10.5 fL Normal 8.1-13.5 [facility] Comment on above: Performed By: #### Margarita G, SALI, CDP, ACET, CP #### [address] [place], [facility]83 Research Advisor: Rodger Dykes MD Platelets (Bld) [#/Vol] 255 10*3/uL Normal 138-453 [facility] Comment on above: Performed By: #### M G, SALI, CDP, ACET, CP #### [address] [place], [place] [id number] Research Advisor: Rodger Dykes MD RBC (Bld) [#/Vol] 4.94 10*6/uL Normal 3.95-5.11 [facility] Comment on above: Performed By: #### M Marco, KATHERINE, CDP, ACET, CP #### [facility] [address] [place], [place] [id number] Research Advisor: Rodger Dykes MD WBC (Bld) [#/Vol] 10.4 10*3/uL Normal 3.5-11.3 [facility] Comment on above: Performed By: #### M Marco, KATHERINE, CDP, ACET, CP #### [address] [place], [place] [id number] Research Advisor: Rodger Dykes MD Comp Metabolic Profon 2024 Albumin [Mass/Vol] 4.5 g/dL Normal 3.5-5.2 [facility] Comment on above: Performed By: #### R EJEC #### [facility] [address] [place] [address] [place] [address] Research Advisor: Rodger Dykes MD Albumin/Glob Ratio 1.6 Normal 1.0-2.5 [facility] Comment on above: Performed By: #### R EJEC #### [address] [place], [place] [id number] Research Advisor: Rodger Dykes MD Alkaline Phos 65 U/L Normal 35-104 [facility] Comment on above: Performed By: #### R EJEC #### [facility] [address] [place] [address] [place] [address] Research Advisor: Rodger Dykes MD ALT [Catalytic activity/Vol] 18 U/L Normal 10-35 [facility] Comment on above: Performed By: #### R EJEC #### [address] [place], [place] [id number] Research Advisor: Rodger Dykes MD Anion gap [Moles/Vol] 12 mmol/L Normal 9-16 [facility] Comment on above: Performed By: #### R EJEC #### [facility] [address] [place], [place] [id number] Research Advisor: Rodger Dykes MD AST [Catalytic activity/Vol] 20 U/L Normal 10-35 [facility] Comment on above: Performed By: #### R EJEC #### [facility] [address] [place], [place] [id number] Research Advisor: Rodger Dykes MD Bilirubin [Mass/Vol] 0.3 mg/dL Normal 0.00-1.20 [facility] Comment on above: Performed By: #### R EJEC #### [facility] [address] [place], [place] [id number] Research Advisor: Rodger Dykes MD BUN/CRE Ratio 11 Normal 9-20 [facility] Comment on above: Performed By: #### R EJEC #### [facility] [address] [place], [place] [id number] Research Advisor: Rodger Dykes MD Calcium [Mass/Vol] 9.4 mg/dL Normal 8.6-10.4 [facility] Comment on above: Performed By: #### R EJEC #### [facility] [address] [place] [address] [place], [place] [id number] Research Advisor: Rodger Dykes MD Chloride [Moles/Vol] 105 mmol/L Normal 98-107 [facility] Comment on above: Performed By: #### R EJEC #### [facility] [address] [place], [place] [id number] Research Advisor: Rodger Dykes MD CO2 [Moles/Vol] 22 mmol/L Normal 20-31 [facility] Comment on above: Performed By: #### R EJEC #### [facility] [address] [place], [place] [id number] Research Advisor: Rodger Dykes MD Creatinine [Mass/Vol] 0.7 mg/dL Normal 0.50-0.90 [facility] Comment on above: Performed By: #### R EJEC #### [address] [place] [address] Research Advisor: Rodger Dykes MD GFR/1.73 sq M.predicted among non-blacks MDRD (S/P/Bld) [Vol rate/Area] mL/min/{1.73_m2} Normal >60 [facility] Comment on above: Result Comment: These results are not intended for use in patients <18 years of age. eGFR results are calculated without a race factor using the 2020 CKD-EPI equation. Careful clinical correlation is recommended, particularly when comparing to results calculated using previous equations. The CKD-EPI equation is less accurate in patients with extremes of muscle mass, extra-renal metabolism of creatine, excessive creatine ingestion, or following therapy that affects renal tubular secretion. Performed By: #### R EJEC #### [address] [place] [address] Research Advisor: Rodger Dykes MD Glucose [Mass/Vol] 95 mg/dL Normal 74-99 [facility] Comment on above: Performed By: #### R EJEC #### [address] [place] [address] Research Advisor: Rodger Dykes MD Potassium [Moles/Vol] 4.2 mmol/L Normal 3.7-5.3 [facility] Comment on above: Performed By: #### R EJEC #### [address] [place], [place] [id number] Research Advisor: Rodger Dykes MD Protein [Mass/Vol] 7.4 g/dL Normal 6.6-8.7 [facility] Comment on above: Performed By: #### R EJEC #### [address] [place] [address] Research Advisor: Rodger Dykes MD Sodium [Moles/Vol] 139 mmol/L Normal 136-145 [facility] Comment on above: Performed By: #### R EJEC #### [facility] [address] [place] [address] Research Advisor: Rodger Dykes MD Urea nitrogen [Mass/Vol] 8 mg/dL Normal 6-20 [facility] Comment on above: Performed By: #### R EJEC #### [facility] [address] [place] [address] Research Advisor: Rodger Dykes MD Comprehensive Metabolic Pane [facility] 07-13-2024 Albumin [Mass/Vol] 4.5 g/dL 3.5 - 5.2 g/dL [facility] Albumin/Globulin [Mass ratio] 1.6 {ratio} 1.0 - 2.5 [facility] ALP [Catalytic activity/Vol] 65 U/L 35 - 104 U/L [facility] ALT [Catalytic activity/Vol] 18 U/L 10 - 35 U/L [facility] Anion gap [Moles/Vol] 12 mmol/L 9 - 16 mmol/L [facility] AST [Catalytic activity/Vol] 20 U/L 10 - 35 U/L [facility] Bilirubin [Mass/Vol] 0.3 mg/dL 0.00 - 1.20 mg/dL [facility] Calcium [Mass/Vol] 9.4 mg/dL 8.6 - 10. 4 mg/dL [facility] Chloride [Moles/Vol] 105 mmol/L 98 - 107 mmol/L [facility] CO2 [Moles/Vol] 22 mmol/L 20 - 31 mmol/L [facility] Creatinine [Mass/Vol] 0.7 mg/dL 0.50 - 0.90 mg/dL [facility] Est, Glom Filt Rate - PINF [facility] Comment on above: These results are not intended for use in patients <18 years of age. eGFR results are calculated without a race factor using the 2020 CKD-EPI equation. Careful clinical correlation is recommended, particularly when comparing to results calculated using previous equations. The CKD-EPI equation is less accurate in patients with extremes of muscle mass, extra-renal metabolism of creatine, excessive creatine ingestion, or following therapy that affects renal tubular secretion. Glucose [Mass/Vol] 95 mg/dL 74 - 99 mg/dL [facility] Potassium [Moles/Vol] 4.2 mmol/L 3.7 - 5.3 mmol/L [facility] Protein [Mass/Vol] 7.4 g/dL 6.6 - 8.7 g/dL [facility] Sodium [Moles/Vol] 139 mmol/L 136 - 145 mmol/L [facility] Urea nitrogen [Mass/Vol] 8 mg/dL 6 - 20 mg/dL [facility] Urea nitrogen/Creatinine [Mass ratio] 11 mg/mg 9 - 20 [facility] Drug Scr, Abuse, Uron 2024 Cannabinoid(s),Ur Positive Abnormal NEG [facility] Comment on above: Result Comment: Cuto ff: 50 ng/ml Performed By: #### A LCB, ACET #### [facility] [address] [place] [address] [place] [address] Research Advisor: Rodger Dykes MD Amphetamine(s),Ur Negative Normal NEG [facility] Comment on above: Result Comment: Cuto ff: 1000 ng/mL Performed By: #### A LCB, ACET #### [facility] [address] [place] [address] [place] [address] Research Advisor: Rodger Dykes MD Barbiturate(s),Ur Negative Normal NEG [facility] Comment on above: Result Comment: Cuto ff: 200 ng/ml Performed By: #### A LCB, ACET #### [facility] [address] [place] [address] [place] [address] Research Advisor: Rodger Dykes MD Benzodiazepine(s) Negative Normal NEG [facility] Comment on above: Result Comment: Cuto ff: 200 ng/ml Performed By: #### A LCB, ACET #### [facility] [address] [place] [address] [place] [address] Research Advisor: Rodger Dykes MD Buprenorphrine, Ur Negative [facility] Comment on above: Result Comment: Cuto ff: 5 ng/ml Performed By: #### A LCB, ACET #### [facility] [address] [place] [address] [place], [place] [id number] Research Advisor: Rodger Dykes MD Cocaine Metabolite Negative [facility] Comment on above: Result Comment: Cuto ff: 300 ng/ml Performed By: #### A LCB, ACET #### [facility] [address] [place] [address] [place], [place] [phone] Research Advisor: Rodger Dykes MD Fentanyl, Urine Negative [facility] Comment on above: Result Comment: Cuto ff: 5 ng/ml Performed By: #### A LCB, ACET #### [address] [place], [place] [id number] Research Advisor: Rodger Dykes MD Interpretive Info This method is a screening test to detect only these drug classes as part of a Normal [facility] Comment on above: Result Comment: medi shyam workup. Confirmatory testing by another method should be ordered if clinically indicated. Performed By: #### A LCB, ACET #### [address] [place], [place] [id number] Research Advisor: Rodger Dykes MD Methadone Ql (U) Negative [facility] Comment on above: Result Comment: Cuto ff: 300 ng/ml Performed By: #### A LCB, ACET #### [address] [place], [place] [id number] Research Advisor: Rodger Dykes MD Opiate(s), Ur Negative [facility] Comment on above: Result Comment: Cuto ff: 300 ng/ml Note: The Opiate screen is not intended to detect Oxycodone. Performed By: #### A LCB, ACET #### [address] [place] [address] Research Advisor: Rodger Dykes MD Oxycodone, Urine Negative Normal NEG [facility] Comment on above: Result Comment: Cuto ff: 100 ng/ml Performed By: #### A LCB, ACET #### [facility] [address] [place] [address] Research Advisor: Rodger Dykes MD Phencyclidine, Ur Negative Normal NEG [facility] Comment on above: Result Comment: Cuto ff: 25 ng/ml Performed By: #### A LCB, ACET #### [facility] [address] [place] [address] Research Advisor: Rodger Dykes MD EKG 12 LeadOrdered By: Daniela Mcfarlane hmad on 07-13-2024 Atrial Rate 70 BPM [employer] Phone: P [place] 32 degrees [employer] Phone: P-R Interval 130 ms [employer] Phone: [phone] Q-T Interval 394 ms [employer] Phone: QRS Duration 78 ms [employer] Phone: QTc Calculation (Bazett) 425 ms [employer] Phone: R [place] 20 degrees [employer] Phone: T [place] 20 degrees [employer] Phone: Ventricular Rate 70 BPM [facility] Phone: [employer] Phone: EKG 12 Leadon 07-13-2024 Normal sinus rhythm with sinus arrhythmia Cannot rule out Anterior infarct , age undetermined Abnormal ECG When compared with ECG of 15-JUN-2024 13:15, No significant change was found Confirmed by Daniela Palma MD ([id number]) on 07/13/2024 5:15:55 PM [facility] Daniela Palma MD - 07/13/2024 Normal sinus rhythm with sinus arrhythmia Cannot rule out Anterior infarct , age undetermined Abnormal ECG When compared with ECG of 15-JUN-2024 13:15, No significant change was found Confirmed by Daniela Palma MD ([id number]) on 07/13/2024 5:15:55 PM [facility] Ethanolon 07-13-2024 Ethanol percent Can not be calculated NINF - 0. 010 % [facility] Ethanolamine [Mass/Vol] <10 NINF - 10 mg/dL [facility] Ethanol Alcoholon 07-13-2024 Ethanol [Mass/Vol] mg/dL Normal <10 [facility] Comment on above: Performed By: #### A LCB #### [address] [place] [address] Research Advisor: Rodger Dykes MD Ethanol percent Can not be calculated Normal <0.010 [facility] Comment on above: Performed By: #### A LCB #### [facility] [address] [place] [address] [place], [place] [phone] Research Advisor: Rodger Dykes MD Magnesiumon 07-13-2024 Magnesium [Mass/Vol] 1.9 mg/dL 1.6 - 2.6 mg/dL [facility] Magnesium [Mass/Vol] 1.9 mg/dL Normal 1.6-2.6 [facility] Comment on above: Performed By: #### R EJEC #### [address] [place] [address] Research Advisor: Rodger Dykes MD No Panel Informationon 07-13 [facility] Salicylateon 07-13-2024 Salicylates [Mass/Vol] mg/dL 0.0 - 10.0 mg/dL [facility] Salicylate <0.5 Normal 0.0-10.0 [facility] Comment on above: Performed By: #### R EJEC #### [facility] [address] [place], [place] [id number] Research Advisor: Rodger Dykes MD Specimen Rejectionon 025 Reason for rejection Unable to perform testing: Specimen hemolyzed. [facility] Comment on above: Result Comment: Unab le to perform testing: Specimen clotted. TRA NUR NOTIFIED @2161 Performed By: #### R EJEC #### [facility] [address] [place] [address] [place] [address] Research Advisor: Rodger Dykes MD Source of sample .BLOOD [facility] Comment on above: Performed By: #### R EJEC #### [address] [place], [place] [id number] Research Advisor: Rodger Dykes MD Test ordered CP/MG/SALI/CDP [facility] Comment on above: Performed By: #### R EJEC #### [facility] [address] [place] [address] [place], [place] [id number] Research Advisor: Rodger Dykes MD Urine Drug Screenon 07-14-19 25 Amphetamines Ql (U) Negative NEGATIVE [facility] Comment on above: Cutoff: 1000 ng/mL Barbiturates Screen Ql (U) Negative NEGATIVE [facility] Comment on above: Cutoff: 200 ng/ml Benzodiazepines Ql (U) Negative NEGATIVE [facility] Comment on above: Cutoff: 200 ng/ml Buprenorphine Ql (U) Negative NEGATIVE [facility] Comment on above: Cutoff: 5 ng/ml Cannabinoids Screen Ql (U) Positive Abnormal NEGATIVE [facility] Comment on above: Cutoff: 50 ng/ml Cocaine Ql (U) Negative NEGATIVE [facility] Comment on above: Cutoff: 300 ng/ml fentaNYL Ql (U) Negative NEGATIVE [facility] Comment on above: Cutoff: 5 ng/ml Interpretation and review of laboratory results Abnormal [facility] Methadone Ql (U) Negative NEGATIVE [facility] Comment on above: Cutoff: 300 ng/ml Opiates Screen Ql (U) Negative NEGATIVE [facility] Comment on above: Cutoff: 300 ng/ml Note: The Opiate screen is not intended to detect Oxycodone. oxyCODONE Ql (U) Negative NEGATIVE [employer] [facility] Comment on above: Cutoff: 100 ng/ml Phencyclidine Ql (U) Negative NEGATIVE [employer] Comment on above: Cutoff: 25 ng/ml Test Information This method is a screening test to detect only these drug classes as part of a medical workup. Confirmatory testing by another method should be ordered if clinically indicated. Fluoresentric Cholesterol [Mass/volume] in Serum or PlasmaOrdered By: Brent Simmons on 06-16-2024 Cholesterol [Mass/Vol] Cholesterol [Mass/volume] in Serum or Plasma High 140-200 [facility] Comment on above: Chol less than 200 m g/dl low riskChol 201-239 mg/dl borderline riskChol 240 mg/dl and greater high risk Cholesterol in HDL [Mass/vol ume] in Serum or PlasmaOrdered By: Brent Simmons on 06-16-2024 Cholesterol in HDL [Mass/Vol] Serum or plasma high density lipoprotein (HDL) cholesterol measurement 23-92 [facility] Comment on above: HDL CHOL ATP-III CLA SSIFICATION Cardiovascular RiskHDL > or equal to 60 mg/dL LOWHDL < 40 mg/dL HIGH Cholesterol in LDL Calc [Mas s/Vol]Ordered By: Brent Simmons on 06-16-2024 Cholesterol in LDL [Mass/Vol] Cholesterol in LDL [Mass/volume] in Serum or Plasma by calculation High 0-100 [facility] Comment on above: LDL ATP III CLASSIFI CATIONLDL less than 100 mg/dL OptimalLDL 100-129 mg/dL Near or above optimalLDL 130-159 mg/dL Borderline highLDL 160-189 mg/dL HighLDL greater than 189 mg/dL Very high Cholesterol in VLDL Calc [Ma ss/Vol]Ordered By: Brent Simmons on 06-16-2024 Cholesterol in VLDL [Mass/Vol] Cholesterol in VLDL [Mass/volume] in Serum or Plasma by calculation [facility] ECG 12 lead ECGon 06-16-2024 ECG 12 lead ECG [facility] [place] [address] Electrocardiograph Report Signed Patient: Roshan Willingham MR#: [id number] : 1990 Acct:[id number] Age/Sex: 33 / F ADM Date: 06/15/24 Loc: Room: [address] [place] [address] Type: ADM IN Attending Dr: Brent Simmons MD Ordering Provider: Brent Simmons MD Date of Service: 06/16/2410/03/499 ECG/ECG 12 lead ECG: baseline Copies to: Test Reason : Blood Pressure : */* mmHG Vent. Rate : 72 BPM Atrial Rate : 72 BPM P-R Int : 130 ms QRS Dur : 80 ms QT Int : 388 ms P-R-T Axes : 51 50 34 degrees QTcB Int : 424 ms Normal sinus rhythm Poor anterior R wave progression Abnormal ECG When compared with ECG of 17-May-2024 07:22, No significant change was found Confirmed by JODI AMES MD ([id number]) on 06/16/2024 2:33:39 PM Referred By: Electronically Signed By: JODI AMES MD Transcribed By: MUS Signed By Jodi Ames MD 0 06/16/24 1433 Normal [facility] Lipid Panelon 06-16-2024 Cholesterol [Mass/Vol] 215 mg/dL High 140-200 [facility] Comment on above: Result Comment: Chol less than 200 mg/dl low risk Chol 201-239 mg/dl borderline risk Chol 240 mg/dl and greater high risk Performed By: #### T SH3 wRFLX, LIPID, [id number] ####[facility] [id number] Cholesterol in HDL [Mass/Vol] 64 mg/dL Normal 23-92 [facility] Comment on above: Result Comment: HDL CHOL ATP-III CLASSIFICATION Cardiovascular Risk HDL > or equal to 60 mg/dL LOW HDL < 40 mg/dL HIGH Performed By: #### T SH3 wRFLX, LIPID, [id number] ####[facility] [id number] [place] [address] [facility] Cholesterol.total/Chol esterol in HDL [Mass ratio] 3.4 {ratio} Normal <5.0 [facility] Comment on above: Performed By: #### T SH3 wRFLX, LIPID, [id number] ####[address] LDL Cholesterol,Calculated 121 mg/dL High 0-100 [facility] Comment on above: Result Comment: LDL ATP III CLASSIFICATION LDL less than 100 mg/dL Optimal LDL 100-129 mg/dL Near or above optimal LDL 130-159 mg/dL Borderline high LDL 160-189 mg/dL High LDL greater than 189 mg/dL Very high Performed By: #### T SH3 wRFLX, LIPID, [id number] ####[address] Triglyceride w/Reflex 152 mg/dL High 0-149 [facility] Comment on above: Result Comment: TRIG ATP III CLASSIFICATION TRIG less than 150 mg/dL Normal TRIG 150-199 mg/dL Borderline high TRIG 200-500 mg/dL High TRIG greater than 500 mg/dL Very high Standard traceable to the Center for Disease Conrtrol and Prevention (CDC) test method. Performed By: #### T SH3 wRFLX, LIPID, [id number] ####[address] VLDL CHOLESTEROL 30 mg/dL Normal [facility] Comment on above: Performed By: #### T SH3 wRFLX, LIPID, [id number] ####[address] Serum or plasma total choles terol/high density lipoprotein (HDL) cholesterol mass ratOrdered By: Brent Simmons on 06-16-2024 Cholesterol.total/Chol esterol in HDL [Mass ratio] Serum or plasma total cholesterol/high density lipoprotein (HDL) cholesterol mass rat <5.0 [facility] Thyroid Stim Hormone w/Rflxo n 06-16-2024 Thyroid Stim Hormone w/Rflx 2.55 u[iU]/mL Normal 0.45-5.33 [facility] Comment on above: Performed By: #### T SH3 wRFLX, LIPID, [id number] ####[address] Thyrotropin [Units/volume] i n Serum or PlasmaOrdered By: Brent Simmons on 06-16-2024 TSH Qn Thyrotropin [Units/volume] in Serum or Plasma 0.45-5.33 [facility] Triglyceride [Mass/volume] i n Serum or PlasmaOrdered By: Brent Simmons on 06-16-2024 Triglyceride [Mass/Vol] Triglyceride [Mass/volume] in Serum or Plasma High 0-149 [facility] Comment on above: TRIG ATP III CLASSIF ICATIONTRIG less than 150 mg/dL NormalTRIG 150-199 mg/dL Borderline highTRIG 200-500 mg/dL High TRIG greater than 500 mg/dL Very highStandard traceable to the Center for Disease Conrtrol and Prevention (CDC) test method. Vitamin D 25 Hydroxy Totalon 06-16-2024 Vitamin D 25 Hydroxy Total 13.5 ng/mL Low 30-100 [facility] Comment on above: Result Comment: [place] MIN D STATUS 25(OH)VITAMIN D RANGE (ng/mL) Deficient <20 Insufficient 20 to <30 Sufficient 30 to 100 Reference: Dino Kim, Joe HAIDER, et al. Evaluation,treatment, and prevention of vitamin D deficiency; an Endocrine Society clinical practice guideline. JCEM. 2010; 96(7):1911-30. PERFORMED BY: [facility] [address] [place] [address] PATHOLOGIST [employer] [place] CHOW M.D. Performed By: #### T SH3 wRFLX, LIPID, [id number] ####[facility] [id number] [place] [address] [facility] Vitamin D+Metabolites [Mass/ volume] in Serum or PlasmaOrdered By: Brent Simmons on 06-16-2024 Vitamin D+Metabolites [Mass/Vol] Vitamin D+Metabolites [Mass/volume] in Serum or Plasma Low 30-100 [facility] Comment on above: VITAMIN D STATUS 25( [place])VITAMIN D RANGE (ng/mL) Deficient <20 Insufficient 20 to <30Sufficient 30 to 100Reference: Dino Kim, Joe HAIDER, et al. Evaluation,treatment, and prevention of vitamin D deficiency; an Endocrine Society clinical practice guideline. JCEM. 2010; 96(7):1911-30. Acetaminophenon 06-15-2024 Acetaminophen [Mass/Vol] ug/mL Low 10-30 [facility] Comment on above: Performed By: #### R EJEC #### [facility] [address] [place] [address] Research Advisor: Rodger Dykes MD Acetaminophen Levelon 2024 Acetaminophen [Mass/Vol] ug/mL Low 10 - 30 ug/mL [facility] Interpretation and review of laboratory results Abnormal [facility] CBC with Auto Differentialon 06-15-2024 Basophils (Bld) [#/Vol] 0.04 10*3/uL [facility] Basophils/100 WBC (Bld) 1 % 0 - 2 % [facility] Eosinophils (Bld) [#/Vol] 0.25 10*3/uL [facility] Eosinophils/100 WBC (Bld) 4 % 1 - 4 % [facility] Erythrocyte distribution width (RBC) [Ratio] 13.0 % 11.8 - 14.4 % [facility] Hematocrit (Bld) [Volume fraction] 43.2 % 36.3 - 47.1 % [facility] Hemoglobin (Bld) [Mass/Vol] 14.6 g/dL 11.9 - 15.1 g/dL [facility] Immature granulocytes (Bld) [#/Vol] [facility] Immature granulocytes/100 WBC (Bld) 0 % 0 [facility] Interpretation and review of laboratory results Abnormal [facility] Lymphocytes/100 WBC (Bld) 22 % Low 24 - 43 % [facility] Lymphocytes/100 WBC (Bld) 1.31 % [facility] MCH (RBC) [Entitic mass] 30.7 pg 25.2 - 33.5 pg [facility] MCHC (RBC) [Mass/Vol] 33.8 g/dL 28.4 - 34.8 g/dL [facility] MCV (RBC) [Entitic vol] 90.9 fL 82.6 - 102.9 fL [facility] Monocytes/100 WBC (Bld) 5 % 3 - 12 % [facility] Monocytes/100 WBC (Bld) 0.30 % [facility] Neutrophils/100 WBC (Bld) 68 % High 36 - 65 % [facility] Nucleated RBC/100 WBC (Bld) [Ratio] 0.0 % 0.0 per 100 WBC [facility] Platelet mean volume (Bld) [Entitic vol] 9.9 fL 8.1 - 13.5 fL [facility] Platelets (Bld) [#/Vol] 331 10*3/uL [facility] RBC (Bld) [#/Vol] 4.75 10*6/uL 3.95 - 5.1 1 m/uL [facility] Segmented neutrophils/100 WBC (Bld) 3.92 % [facility] WBC other (Bld) [#/Vol] 5.8 [facility] CBC with Diffon 06-15-2024 Abs. Basophil 0.04 k/uL Normal 0.00-0.20 [facility] Comment on above: Performed By: #### R EJEC #### [facility] [address] [place] [address] [place] [address] Research Advisor: Rodger Dykes MD Abs.Imm.Granulocyte <0.03 Normal 0.00-0.30 [facility] Comment on above: Performed By: #### R EJEC #### [facility] [address] [place] [address] Research Advisor: Rodger Dykes MD Abs.Neutrophil (Seg) 3.92 k/uL Normal 1.50-8.10 [facility] Comment on above: Performed By: #### R EJEC #### [facility] [address] [place] [address] Research Advisor: Rodger Dykes MD Basophils/100 WBC (Bld) 1 % Normal 0-2 [facility] Comment on above: Performed By: #### R EJEC #### [facility] [address] [place], [place] [id number] Research Advisor: Rodger Dykes MD Eosinophils (Bld) [#/Vol] 0.25 10*3/uL Normal 0.00-0.44 [facility] Comment on above: Performed By: #### R EJEC #### [address] [place], [facility]83 Research Advisor: Rodger Dykes MD Eosinophils/100 WBC (Bld) 4 % Normal 1-4 [facility] Comment on above: Performed By: #### R EJEC #### [address] [place] [id number] Research Advisor: Rodger Dykes MD Erythrocyte distribution width (RBC) [Ratio] 13.0 % Normal 11.8-14.4 [facility] Comment on above: Performed By: #### R EJEC #### [address] [place], [facility]83 Research Advisor: Rodger Dykes MD Hematocrit (Bld) [Volume fraction] 43.2 % Normal 36.3-47.1 [facility] Comment on above: Performed By: #### R EJEC #### [address] [place], [facility]83 Research Advisor: Rodger Dykes MD Hemoglobin (Bld) [Mass/Vol] 14.6 g/dL Normal 11.9-15.1 [facility] Comment on above: Performed By: #### R EJEC #### [address] [place] [id number] Research Advisor: Rodger Dykes MD Immature granulocytes/100 WBC (Bld) 0 % Normal 0 [facility] Comment on above: Performed By: #### R EJEC #### [address] [place] [address] Research Advisor: Rodger Dykes MD Lymphocytes (Bld) [#/Vol] 1.31 10*3/uL Normal 1.10-3.70 [facility] Comment on above: Performed By: #### R EJEC #### [address] [place], [place] [id number] Research Advisor: Rodger Dykes MD Lymphocytes/100 WBC (Bld) 22 % Low 24-43 [facility] Comment on above: Performed By: #### R EJEC #### [address] [place] [address] Research Advisor: Rodger Dykes MD MCH (RBC) [Entitic mass] 30.7 pg Normal 25.2-33.5 [facility] Comment on above: Performed By: #### R EJEC #### [address] [place] [facility]83 Research Advisor: Rodger Dykes MD MCHC (RBC) [Mass/Vol] 33.8 g/dL Normal 28.4-34.8 [facility] Comment on above: Performed By: #### R EJEC #### [address] [place] [id number] Research Advisor: Rodger Dykes MD MCV (RBC) [Entitic vol] 90.9 fL Normal 82.6-102.9 [facility] Comment on above: Performed By: #### R EJEC #### [address] [place] [address] Research Advisor: Rodger Dykes MD Monocytes (Bld) [#/Vol] 0.30 10*3/uL Normal 0.10-1.20 [facility] Comment on above: Performed By: #### R EJEC #### [address] [place], [place] [id number] Research Advisor: Rodger Dykes MD Monocytes/100 WBC (Bld) 5 % Normal 3-12 [facility] Comment on above: Performed By: #### R EJEC #### [facility] [address] [place], [facility]83 Research Advisor: Rodger Dykes MD Neutrophil (Seg) 68 % High 36-65 [facility] Comment on above: Performed By: #### R EJEC #### [facility] [address] [place], [facility]83 Research Advisor: Rodger Dykes MD NRBC Automated 0.0 per 100 WBC Normal 0.0 [facility] Comment on above: Performed By: #### R EJEC #### [address] [place], [facility]83 Research Advisor: Rodger Dykes MD Platelet mean volume (Bld) [Entitic vol] 9.9 fL Normal 8.1-13.5 [facility] Comment on above: Performed By: #### R EJEC #### [address] [place], [facility]83 Research Advisor: Rodger Dykes MD Platelets (Bld) [#/Vol] 331 10*3/uL Normal 138-453 [facility] Comment on above: Performed By: #### R EJEC #### [address] [place], [facility]83 Research Advisor: Rodger Dykes MD RBC (Bld) [#/Vol] 4.75 10*6/uL Normal 3.95-5.11 [facility] Comment on above: Performed By: #### R EJEC #### [address] [place], [facility]83 Research Advisor: Rodger Dykes MD WBC (Bld) [#/Vol] 5.8 10*3/uL Normal 3.5-11.3 [facility] Comment on above: Performed By: #### R EJEC #### [address] [place] [address] Research Advisor: Rodger Dykes MD [facility] 06-15-2024 Albumin [Mass/Vol] 4.5 g/dL 3.5 - 5.2 g/dL [facility] Albumin/Globulin [Mass ratio] 1.7 {ratio} 1.0 - 2.5 [facility] ALP [Catalytic activity/Vol] 71 U/L 35 - 104 U/L [facility] ALT [Catalytic activity/Vol] 34 U/L 10 - 35 U/L [facility] Anion gap [Moles/Vol] 12 mmol/L 9 - 16 mmol/L [facility] AST [Catalytic activity/Vol] 29 U/L 10 - 35 U/L [facility] Bilirubin [Mass/Vol] 0.3 mg/dL 0.00 - 1.20 mg/dL [facility] Calcium [Mass/Vol] 9.7 mg/dL 8.6 - 10. 4 mg/dL [facility] Chloride [Moles/Vol] 107 mmol/L 98 - 107 mmol/L [facility] CO2 [Moles/Vol] 23 mmol/L 20 - 31 mmol/L [facility] Creatinine [Mass/Vol] 0.8 mg/dL 0.50 - 0.90 mg/dL [facility] Est, Fabrice [place] Rate - PINF [facility] Comment on above: These results are not intended for use in patients <18 years of age. eGFR results are calculated without a race factor using the 2020 CKD-EPI equation. Careful clinical correlation is recommended, particularly when comparing to results calculated using previous equations. The CKD-EPI equation is less accurate in patients with extremes of muscle mass, extra-renal metabolism of creatine, excessive creatine ingestion, or following therapy that affects renal tubular secretion. Glucose [Mass/Vol] 95 mg/dL 74 - 99 mg/dL [facility] Interpretation and review of laboratory results Abnormal [facility] Potassium [Moles/Vol] 4.0 mmol/L 3.7 - 5.3 mmol/L [facility] Protein [Mass/Vol] 7.2 g/dL 6.6 - 8.7 g/dL [facility] Sodium [Moles/Vol] 142 mmol/L 136 - 145 mmol/L [facility] Urea nitrogen [Mass/Vol] 6 mg/dL 6 - 20 mg/dL [facility] Urea nitrogen/Creatinine [Mass ratio] 8 mg/mg Low 9 - 20 [facility] Comp Metabolic Profon 2024 Albumin [Mass/Vol] 4.5 g/dL Normal 3.5-5.2 [facility] Comment on above: Performed By: #### R EJEC #### [facility] [address] [place], [place] [id number] Research Advisor: Rodger Dykes MD Albumin/Glob Ratio 1.7 Normal 1.0-2.5 [facility] Comment on above: Performed By: #### R EJEC #### [facility] [address] [place], [place] [id number] Research Advisor: Rodger Dykes MD Alkaline Phos 71 U/L Normal 35-104 [facility] Comment on above: Performed By: #### R EJEC #### [address] [place], [place] [id number] Research Advisor: Rodger Dykes MD ALT [Catalytic activity/Vol] 34 U/L Normal 10-35 [facility] Comment on above: Performed By: #### R EJEC #### [facility] [address] [place], [place] [id number] Research Advisor: Rodger Dykes MD Anion gap [Moles/Vol] 12 mmol/L Normal 9-16 [facility] Comment on above: Performed By: #### R EJEC #### [facility] [address] [place] [address] [place] [address] Research Advisor: Rodger Dykes MD AST [Catalytic activity/Vol] 29 U/L Normal 10-35 [facility] Comment on above: Performed By: #### R EJEC #### [facility] [address] [place], [place] [id number] Research Advisor: Rodger Dykes MD Bilirubin [Mass/Vol] 0.3 mg/dL Normal 0.00-1.20 [facility] Comment on above: Performed By: #### R EJEC #### [facility] [address] [place] [id number] Research Advisor: Rodger Dkyes MD BUN/CRE Ratio 8 Low 9-20 [facility] Comment on above: Performed By: #### R EJEC #### [facility] [address] [place] [id number] Research Advisor: Rodger Dykes MD Calcium [Mass/Vol] 9.7 mg/dL Normal 8.6-10.4 [facility] Comment on above: Performed By: #### R EJEC #### [facility] [address] [place] [address] [place], [place] [id number] Research Advisor: Rodger Dykes MD Chloride [Moles/Vol] 107 mmol/L Normal 98-107 [facility] Comment on above: Performed By: #### R EJEC #### [facility] [address] [place] [address] [place], [place] [id number] Research Advisor: Rodger Dykes MD CO2 [Moles/Vol] 23 mmol/L Normal 20-31 [facility] Comment on above: Performed By: #### R EJEC #### [facility] [address] [place], [place] [id number] Research Advisor: Rodger Dykes MD Creatinine [Mass/Vol] 0.8 mg/dL Normal 0.50-0.90 [facility] Comment on above: Performed By: #### R EJEC #### [facility] [address] [place] [address] Research Advisor: Rodger Dykes MD GFR/1.73 sq M.predicted among non-blacks MDRD (S/P/Bld) [Vol rate/Area] mL/min/{1.73_m2} Normal >60 [facility] Comment on above: Result Comment: These results are not intended for use in patients <18 years of age. eGFR results are calculated without a race factor using the 2020 CKD-EPI equation. Careful clinical correlation is recommended, particularly when comparing to results calculated using previous equations. The CKD-EPI equation is less accurate in patients with extremes of muscle mass, extra-renal metabolism of creatine, excessive creatine ingestion, or following therapy that affects renal tubular secretion. Performed By: #### R EJEC #### [facility] [address] [place] [address] [place] [address] Research Advisor: Rodger Dykes MD Glucose [Mass/Vol] 95 mg/dL Normal 74-99 [facility] Comment on above: Performed By: #### R EJEC #### [address] [place] [address] Research Advisor: Rodger Dykes MD Potassium [Moles/Vol] 4.0 mmol/L Normal 3.7-5.3 [facility] Comment on above: Performed By: #### R EJEC #### [address] [place] [address] Research Advisor: Rodger Dykes MD Protein [Mass/Vol] 7.2 g/dL Normal 6.6-8.7 [facility] Comment on above: Performed By: #### R EJEC #### [facility] [address] [place] [address] [place], [place] [id number] Research Advisor: Rodger Dykes MD Sodium [Moles/Vol] 142 mmol/L Normal 136-145 [facility] Comment on above: Performed By: #### R EJEC #### [address] [place] [address] Research Advisor: Rodger Dykes MD Urea nitrogen [Mass/Vol] 6 mg/dL Normal 6-20 [facility] Comment on above: Performed By: #### R EJEC #### [facility] [address] [place] [address] Research Advisor: Rodger Dykes MD Drug Scr, Abuse, Uron 2024 Cannabinoid(s),Ur Positive Abnormal NEG [facility] Comment on above: Result Comment: Cuto ff: 50 ng/ml Performed By: #### R EJEC #### [facility] [address] [place], [place] [id number] Research Advisor: Rodger Dykes MD Amphetamine(s),Ur Negative Normal NEG [facility] Comment on above: Result Comment: Cuto ff: 1000 ng/mL Performed By: #### R EJEC #### [address] [place], [place] [id number] Research Advisor: Rodger Dykes MD Barbiturate(s),Ur Negative Normal NEG [facility] Comment on above: Result Comment: Cuto ff: 200 ng/ml Performed By: #### R EJEC #### [facility] [address] [place] [address] [place], [place] [id number] Research Advisor: Rodger Dykes MD Benzodiazepine(s) Negative Normal NEG [facility] Comment on above: Result Comment: Cuto ff: 200 ng/ml Performed By: #### R EJEC #### [facility] [address] [place] [address] [place], [place] [id number] Research Advisor: Rodger Dykes MD Buprenorphrine, Ur Negative Normal NEG [facility] Comment on above: Result Comment: Cuto ff: 5 ng/ml Performed By: #### R EJEC #### [facility] [address] [place] [address] [place], [place] [id number] Research Advisor: Rodger Dykes MD Cocaine Metabolite Negative Normal NEG [facility] Comment on above: Result Comment: Cuto ff: 300 ng/ml Performed By: #### R EJEC #### [address] [place], [place] [id number] Research Advisor: Rodger Dykes MD Fentanyl, Urine Negative Normal NEG [facility] Comment on above: Result Comment: Cuto ff: 5 ng/ml Performed By: #### R EJEC #### [facility] [address] [place] [address] [place], [place] [id number] Research Advisor: Rodger Dykes MD Interpretive Info This method is a screening test to detect only these drug classes as part of a Normal [facility] Comment on above: Result Comment: medi shyam workup. Confirmatory testing by another method should be ordered if clinically indicated. Performed By: #### R EJEC #### [address] [place], [place] [id number] Research Advisor: Rodger Dykes MD Methadone Ql (U) Negative Normal NEG [facility] Comment on above: Result Comment: Cuto ff: 300 ng/ml Performed By: #### R EJEC #### [address] [place], [place] [id number] Research Advisor: Rodger Dykes MD Opiate(s), Ur Negative Normal NEG [facility] Comment on above: Result Comment: Cuto ff: 300 ng/ml Note: The Opiate screen is not intended to detect Oxycodone. Performed By: #### R EJEC #### [address] [place], [place] [id number] Research Advisor: Rodger Dykes MD Oxycodone, Urine Negative Normal NEG [facility] Comment on above: Result Comment: Cuto ff: 100 ng/ml Performed By: #### R EJEC #### [facility] [facility] [address] [place] [address] Dr. [place], [place] [id number] Research Advisor: Rodger Dykes MD Phencyclidine, Ur Negative Normal NEG [facility] Comment on above: Result Comment: Cuto ff: 25 ng/ml Performed By: #### R EJEC #### [address] [place] [address] Research Advisor: Rodger Dykes MD ETOHon 06-15-2024 Ethanol percent 0.001 % NINF - 0.010 % [facility] Ethanolamine [Mass/Vol] <10 NINF - 10 mg/dL [facility] Ethanol Alcoholon 06-15-2024 Ethanol [Mass/Vol] mg/dL Normal <10 [facility] Comment on above: Performed By: #### R EJEC #### [facility] [address] [place] [address] Research Advisor: Rodger Dykes MD Ethanol percent 0.001 % Normal <0.010 [facility] Comment on above: Performed By: #### R EJEC #### [facility] [address] [place] [address] Research Advisor: Rodger Dykes MD Magnesiumon 06-15-2024 Magnesium [Mass/Vol] 1.8 mg/dL 1.6 - 2.6 mg/dL [facility] Magnesium [Mass/Vol] 1.8 mg/dL Normal 1.6-2.6 [facility] Comment on above: Performed By: #### A BETO, ACET #### [facility] [address] [place] [address] Research Advisor: Rodger Dykes MD Microscopic Urinalysison Epithelial cells LM.HPF (Urine sed) [#/Area] 0 TO 2 [facility] RBC LM.HPF (Urine sed) [#/Area] None [facility] WBC LM.HPF (Urine sed) [#/Area] None [facility] No Panel Informationon 06-15 [facility] Salicylateon 06-15-2024 Salicylates [Mass/Vol] mg/dL 0.0 - 10.0 mg/dL [facility] Salicylate <0.5 Normal 0.0-10.0 [facility] Comment on above: Performed By: #### A KRAIGB, ACET #### [facility] [address] [place], [place] [id number] Research Advisor: Rodger Dykes MD UA w/Reflex Cultureon 2024 Bilirubin, SemiQt,Ur Negative Normal NEG [facility] Comment on above: Performed By: #### R EJEC #### [facility] [address] [place], [place] [id number] Research Advisor: Rodger Dykes MD Blood, Urine Negative Normal NEG [facility] Comment on above: Performed By: #### R EJEC #### [address] [place], [place] [id number] Research Advisor: Rodger Dykes MD Clarity (U) Clear Normal CLEAR [facility] Comment on above: Performed By: #### R EJEC #### [facility] [address] [place], [facility]83 Research Advisor: Rodger Dykes MD Color (U) Yellow Normal YEL [facility] Comment on above: Performed By: #### R EJEC #### [address] [place], [place] [id number] Research Advisor: Rodger Dykes MD Glucose Ql (U) Negative Normal [facility] Comment on above: Performed By: #### R EJEC #### [facility] [address] [place] [address] Dr. [place], [place] [id number] Research Advisor: Rodger Dykes MD Ketones Ql (U) Negative Normal NEG [facility] Comment on above: Performed By: #### R EJEC #### [address] [place] [address] Research Advisor: Rodger Dykes MD Leukocyte esterase Test strip Ql (U) Negative Normal NEG [facility] Comment on above: Performed By: #### R EJEC #### [address] [place], [place] [id number] Research Advisor: Rodger Dykes MD Nitrite,Ur Negative Normal NEG [facility] Comment on above: Performed By: #### R EJEC #### [facility] [address] [place] [address] [place] [address] Research Advisor: Rodger Dykes MD PH,Ur 7.5 Normal 5.0-9.0 [facility] Comment on above: Performed By: #### R EJEC #### [facility] [address] [place] [id number] Research Advisor: Rodger Dykes MD Protein Ql (U) Negative Normal NEG [facility] Comment on above: Performed By: #### R EJEC #### [address] [place] [address] Research Advisor: Rodger Dykes MD Spec. [facility],Ur 1.010 Normal 1.010-1.020 [facility] Comment on above: Performed By: #### R EJEC #### [facility] [address] [place] [address] Dr. [place], [facility]83 Research Advisor: Rodger Dykes MD Urobilinogen,Ur Normal Normal 0.0-1.0 [facility] Comment on above: Performed By: #### R EJEC #### [facility] [address] [place] [address] Dr[place] [id number] Research Advisor: Rodger Dykes MD Urinalysis with Reflex to Cu ltureon 06-15-2024 Bilirubin Ql (U) Negative NEGATIVE [facility] Clarity (U) Clear Clear [facility] Color (U) Yellow Yellow [facility] Glucose Test strip (U) [Mass/Vol] Negative NEGATIVE mg/dL [facility] Hemoglobin Auto test strip Ql (U) Negative NEGATIVE [facility] Ketones (U) [Mass/Vol] Negative NEGATIVE mg/d L [facility] Leukocyte esterase Test strip Ql (U) Negative NEGATIVE [facility] Nitrite Ql (U) Negative NEGATIVE [place] [facility] pH (U) 7.5 [pH] 5.0 - 9.0 [facility] Protein (U) [Mass/Vol] Negative NEGATIVE mg/d L [facility] Specific gravity (U) [Rel density] 1.010 1.010 - 1.020 [facility] Urobilinogen Qn (U) Normal 0.0 - 1.0 EU/dL [facility] Urinalysis,Microon 5 Epithelial cells LM Ql (Urine sed) 0 TO 2 Normal 0-25 [facility] Comment on above: Performed By: #### R EJEC #### [facility] [address] [place] [address] [place] [address] Research Advisor: Rodger Dykes MD Urine RBC's None Normal 0-2 [facility] Comment on above: Performed By: #### R EJEC #### [facility] [address] [place] [address] Research Advisor: Rodger Dykes MD Urine WBC's None Normal 0-5 [facility] Comment on above: Performed By: #### R EJEC #### [facility] [address] [place] [address] [place] [address] Research Advisor: Rodger Dykes MD Urine Drug Screenon 06-15-19 25 Amphetamines Ql (U) Negative NEGATIVE [facility] Comment on above: Cutoff: 1000 ng/mL Barbiturates Screen Ql (U) Negative NEGATIVE [facility] Comment on above: Cutoff: 200 ng/ml Benzodiazepines Ql (U) Negative NEGATIVE [facility] Comment on above: Cutoff: 200 ng/ml Buprenorphine Ql (U) Negative NEGATIVE [facility] Comment on above: Cutoff: 5 ng/ml Cannabinoids Screen Ql (U) Positive Abnormal NEGATIVE [facility] Comment on above: Cutoff: 50 ng/ml Cocaine Ql (U) Negative NEGATIVE [place] [facility] Comment on above: Cutoff: 300 ng/ml fentaNYL Ql (U) Negative NEGATIVE [facility] Comment on above: Cutoff: 5 ng/ml Interpretation and review of laboratory results Abnormal [facility] Methadone Ql (U) Negative NEGATIVE [facility] Comment on above: Cutoff: 300 ng/ml Opiates Screen Ql (U) Negative NEGATIVE [facility] [employer] Comment on above: Cutoff: 300 ng/ml Note: The Opiate screen is not intended to detect Oxycodone. oxyCODONE Ql (U) Negative NEGATIVE [facility] Comment on above: Cutoff: 100 ng/ml Phencyclidine Ql (U) Negative NEGATIVE [facility] Comment on above: Cutoff: 25 ng/ml Test Information This method is a screening test to detect only these drug classes as part of a medical workup. Confirmatory testing by another method should be ordered if clinically indicated. [facility] [employer] Cholesterol [Mass/volume] in Serum or PlasmaOrdered By: Phillip Davis on 05-17-2024 Cholesterol [Mass/Vol] Cholesterol [Mass/volume] in Serum or Plasma 140-200 [facility] Comment on above: Chol less than 200 m g/dl low riskChol 201-239 mg/dl borderline riskChol 240 mg/dl and greater high risk Cholesterol in HDL [Mass/vol ume] in Serum or PlasmaOrdered By: Phillip Davis on 05-17-2024 Cholesterol in HDL [Mass/Vol] Serum or plasma high density lipoprotein (HDL) cholesterol measurement 23-92 [facility] Comment on above: HDL CHOL ATP-III CLA SSIFICATION Cardiovascular RiskHDL > or equal to 60 mg/dL LOWHDL < 40 mg/dL HIGH Cholesterol in LDL Calc [Mas s/Vol]Ordered By: Phillip Davis on 05-17-2024 Cholesterol in LDL [Mass/Vol] Cholesterol in LDL [Mass/volume] in Serum or Plasma by calculation 0-100 [facility] Comment on above: LDL ATP III CLASSIFI CATIONLDL less than 100 mg/dL OptimalLDL 100-129 mg/dL Near or above optimalLDL 130-159 mg/dL Borderline highLDL 160-189 mg/dL HighLDL greater than 189 mg/dL Very high Cholesterol in VLDL Calc [Ma ss/Vol]Ordered By: Phillip Davis on 05-17-2024 Cholesterol in VLDL [Mass/Vol] Cholesterol in VLDL [Mass/volume] in Serum or Plasma by calculation [facility] ECG 12 lead ECGon 05-17-2024 ECG 12 lead ECG [facility] Main [place] [address] [place] [address] Electrocardiograph Report Signed Patient: Roshan Willingham MR#: [id number] : 1990 Acct:[id number] Age/Sex: 33 / F ADM Date: 05/16/24 Loc: Room: [address] [place] [address] Type: ADM IN Attending Dr: Phillip Davis MD Ordering Provider: Phillip Davis MD Date of Service: 05/17/2411/03/499 ECG/ECG 12 lead ECG: baseline Copies to: Test Reason : Blood Pressure : */* mmHG Vent. Rate : 67 BPM Atrial Rate : 67 BPM P-R Int : 124 ms QRS Dur : 92 ms QT Int : 388 ms P-R-T Axes : 20 8 34 degrees QTcB Int : 409 ms Normal sinus rhythm with sinus arrhythmia Normal ECG When compared with ECG of 13-Jan-2024 07:13, No significant change was found Confirmed by JODI AMES MD ([id number]) on 05/17/2024 1:54:50 PM Referred By: Electronically Signed By: JODI AMES MD Transcribed By: MUS Signed By Jodi Ames MD 0 05/17/24 1354 Normal [facility] Lipid Panelon 05-17-2024 Cholesterol [Mass/Vol] 171 mg/dL Normal 140-200 [facility] Comment on above: Result Comment: Chol less than 200 mg/dl low risk Chol 201-239 mg/dl borderline risk Chol 240 mg/dl and greater high risk Performed By: #### V [id number], LIPID, TSH3 wRFLX ####[facility] [id number] Cholesterol in HDL [Mass/Vol] 56 mg/dL Normal 23-92 [facility] Comment on above: Result Comment: HDL CHOL ATP-III CLASSIFICATION Cardiovascular Risk HDL > or equal to 60 mg/dL LOW HDL < 40 mg/dL HIGH Performed By: #### V [id number], LIPID, TSH3 wRFLX ####[address] Cholesterol.total/Chol esterol in HDL [Mass ratio] 3.1 {ratio} Normal <5.0 [facility] Comment on above: Performed By: #### V [id number], LIPID, TSH3 wRFLX ####[address] LDL Cholesterol,Calculated 93 mg/dL Normal 0-100 [facility] Comment on above: Result Comment: LDL ATP III CLASSIFICATION LDL less than 100 mg/dL Optimal LDL 100-129 mg/dL Near or above optimal LDL 130-159 mg/dL Borderline high LDL 160-189 mg/dL High LDL greater than 189 mg/dL Very high Performed By: #### V [id number], LIPID, TSH3 wRFLX ####[address] Triglyceride w/Reflex 111 mg/dL Normal 0-149 [facility] Comment on above: Result Comment: TRIG ATP III CLASSIFICATION TRIG less than 150 mg/dL Normal TRIG 150-199 mg/dL Borderline high TRIG 200-500 mg/dL High TRIG greater than 500 mg/dL Very high Standard traceable to the Center for Disease Conrtrol and Prevention (CDC) test method. Performed By: #### V [id number], LIPID, TSH3 wRFLX ####[place] [id number] [facility] VLDL CHOLESTEROL 22 mg/dL Normal [facility] Comment on above: Performed By: #### V [id number], LIPID, TSH3 wRFLX ####[address] Serum or plasma total choles terol/high density lipoprotein (HDL) cholesterol mass ratOrdered By: Phillip Davis on 05-17-2024 Cholesterol.total/Chol esterol in HDL [Mass ratio] Serum or plasma total cholesterol/high density lipoprotein (HDL) cholesterol mass rat <5.0 [facility] Thyroid Stim Hormone w/Rflxo n 05-17-2024 Thyroid Stim Hormone w/Rflx 0.49 u[iU]/mL Normal 0.45-5.33 [facility] Comment on above: Performed By: #### V [id number], LIPID, TSH3 wRFLX ####[facility] [place] [address] [facility] Thyrotropin [Units/volume] i n Serum or PlasmaOrdered By: Phillip Davis on 05-17-2024 TSH Qn Thyrotropin [Units/volume] in Serum or Plasma 0.45-5.33 [facility] Triglyceride [Mass/volume] i n Serum or PlasmaOrdered By: Phillip Davis on 05-17-2024 Triglyceride [Mass/Vol] Triglyceride [Mass/volume] in Serum or Plasma 0-149 [facility] Comment on above: TRIG ATP III CLASSIF ICATIONTRIG less than 150 mg/dL NormalTRIG 150-199 mg/dL Borderline highTRIG 200-500 mg/dL High TRIG greater than 500 mg/dL Very highStandard traceable to the Center for Disease Conrtrol and Prevention (CDC) test method. Vitamin D 25 Hydroxy Totalon 05-17-2024 Vitamin D 25 Hydroxy Total 23.3 ng/mL Low 30-100 [facility] Comment on above: Result Comment: BA[place]A MIN D STATUS 25([place])VITAMIN D RANGE (ng/mL) Deficient <20 Insufficient 20 to <30 Sufficient 30 to 100 Reference: Janett MF,Dino NC, Joe HAIDER, et al. Evaluation,treatment, and prevention of vitamin D deficiency; an Endocrine Society clinical practice guideline. JCEM. 2010; 96(7):1911-30. PERFORMED BY: [facility] [address] [place] [address] PATHOLOGIST [employer] PARADISE CHOW M.D. Performed By: #### V [id number], LIPID, TSH3 wRFLX ####[facility] [place] [address] [facility] Vitamin D+Metabolites [Mass/ volume] in Serum or PlasmaOrdered By: Phillip Davis on 05-17-2024 Vitamin D+Metabolites [Mass/Vol] Vitamin D+Metabolites [Mass/volume] in Serum or Plasma Low 30-100 [facility] Comment on above: VITAMIN D STATUS 25( [place])VITAMIN D RANGE (ng/mL) Deficient <20 Insufficient 20 to <30Sufficient 30 to 100Reference: Janett MF,Dino NC, Joe HAIDER, et al. Evaluation,treatment, and prevention of vitamin D deficiency; an Endocrine Society clinical practice guideline. JCEM. 2010; 96(7):1911-30. Cholesterol [Mass/volume] in Serum or PlasmaOrdered By: Brent Simmons on 01-13-2024 Cholesterol [Mass/Vol] 178 mg/dL Normal 140-200 [facility] Comment on above: Chol less than 200 m g/dl low riskChol 201-239 mg/dl borderline riskChol 240 mg/dl and greater high risk Order Comment: FASTI KAMLA Y Result Comment: Chol less than 200 mg/dl low risk Chol 201-239 mg/dl borderline risk Chol 240 mg/dl and greater high risk Performed By: #### T SH3 wRFLX, [id number], LIPID ####[facility] [id number] Cholesterol [Mass/Vol] Cholesterol [Mass/volume] in Serum or Plasma 140-200 [facility] Comment on above: Chol less than 200 m g/dl low riskChol 201-239 mg/dl borderline riskChol 240 mg/dl and greater high risk Cholesterol in HDL [Mass/vol ume] in Serum or PlasmaOrdered By: Brent Simmons on 01-13-2024 Cholesterol in HDL [Mass/Vol] Serum or plasma high density lipoprotein (HDL) cholesterol measurement 23-92 [facility] Comment on above: HDL CHOL ATP-III CLA SSIFICATION Cardiovascular RiskHDL > or equal to 60 mg/dL LOWHDL < 40 mg/dL HIGH Cholesterol in LDL Calc [Mas s/Vol]Ordered By: Brent Simmons on 01-13-2024 Cholesterol in LDL [Mass/Vol] 104 mg/dL High 0-100 [facility] Comment on above: LDL ATP III CLASSIFI CATIONLDL less than 100 mg/dL OptimalLDL 100-129 mg/dL Near or above optimalLDL 130-159 mg/dL Borderline highLDL 160-189 mg/dL HighLDL greater than 189 mg/dL Very high Cholesterol in LDL [Mass/Vol] Cholesterol in LDL [Mass/volume] in Serum or Plasma by calculation High 0-100 [facility] Comment on above: LDL ATP III CLASSIFI CATIONLDL less than 100 mg/dL OptimalLDL 100-129 mg/dL Near or above optimalLDL 130-159 mg/dL Borderline highLDL 160-189 mg/dL HighLDL greater than 189 mg/dL Very high Cholesterol in VLDL Calc [Ma ss/Vol]Ordered By: Brent Simmons on 01-13-2024 Cholesterol in VLDL [Mass/Vol] 21 mg/dL [facility] Cholesterol in VLDL [Mass/Vol] Cholesterol in VLDL [Mass/volume] in Serum or Plasma by calculation [facility] ECG 12 lead ECGon 01-13-2024 ECG 12 lead ECG [facility] [place] [address] Electrocardiograph Report Signed Patient: Roshan Willingham MR#: [id number] : 1990 Acct:[id number] Age/Sex: 33 / F ADM Date: 01/12/24 Loc: Room: [address] [place] [address] Type: ADM IN Attending Dr: Brent Simmons MD Ordering Provider: Brent Simmons MD Date of Service: 01/13/2408/02/499 ECG/ECG 12 lead ECG: use of antipsychotics Copies to: Test Reason : Blood Pressure : */* mmHG Vent. Rate : 64 BPM Atrial Rate : 64 BPM P-R Int : 134 ms QRS Dur : 92 ms QT Int : 390 ms P-R-T Axes : 34 60 54 degrees QTcB Int : 402 ms Normal sinus rhythm with sinus arrhythmia Normal ECG When compared with ECG of 02-Jun-2023 10:11, No significant change was found Confirmed by Salbador Zayas ([id number]) on 01/14/2024 3:06:11 PM Referred By: Electronically Signed By: Salbador Zayas Transcribed By: MUS Signed By Salbador Zayas MD 01/14/24 1506 Normal [facility] Lipid Panelon 01-13-2024 LDL Cholesterol,Calculated 104 mg/dL High 0-100 [facility] Comment on above: Order Comment: MARÍA CASON Y Result Comment: LDL ATP III CLASSIFICATION LDL less than 100 mg/dL Optimal LDL 100-129 mg/dL Near or above optimal LDL 130-159 mg/dL Borderline high LDL 160-189 mg/dL High LDL greater than 189 mg/dL Very high Performed By: #### T SH3 wRFLX, [id number], LIPID ####[place] [id number] [address] Triglyceride w/Reflex 105 mg/dL Normal 0-149 [facility] Comment on above: Order Comment: MARÍA CASON Y Result Comment: TRIG ATP III CLASSIFICATION TRIG less than 150 mg/dL Normal TRIG 150-199 mg/dL Borderline high TRIG 200-500 mg/dL High TRIG greater than 500 mg/dL Very high Standard traceable to the Center for Disease Conrtrol and Prevention (CDC) test method. Performed By: #### T SH3 wRFLX, [id number], LIPID ####[place] [id number] [address] VLDL CHOLESTEROL 21 mg/dL Normal [facility] Comment on above: Order Comment: MARÍA Rader Performed By: #### T SH3 wRFLX, [id number], LIPID ####[place] [id number] [address] Serum or plasma high density lipoprotein (HDL) cholesterol measurementOrdered By: Brent Simmons on 01-13-2024 Cholesterol in HDL [Mass/Vol] 53 mg/dL Normal 23-92 [facility] Comment on above: HDL CHOL ATP-III CLA SSIFICATION Cardiovascular RiskHDL > or equal to 60 mg/dL LOWHDL < 40 mg/dL HIGH Order Comment: MARÍA CASON Y Result Comment: HDL CHOL ATP-III CLASSIFICATION Cardiovascular Risk HDL > or equal to 60 mg/dL LOW HDL < 40 mg/dL HIGH Performed By: #### T SH3 wRFLX, [id number], LIPID ####[place] [id number] [place] [id number] [facility] Serum or plasma total choles terol/high density lipoprotein (HDL) cholesterol mass ratOrdered By: Brent Simmons on 01-13-2024 Cholesterol.total/Chol esterol in HDL [Mass ratio] 3.4 {ratio} Normal <5.0 [facility] Comment on above: Order Comment: FASTPepe CASON Y Performed By: #### T SH3 wRFLX, [id number], LIPID ####[facility] [id number] [place] [id number] [facility] Cholesterol.total/Chol esterol in HDL [Mass ratio] Serum or plasma total cholesterol/high density lipoprotein (HDL) cholesterol mass rat <5.0 [facility] Thyroid Stim Hormone w/Rflxo n 01-13-2024 Thyroid Stim Hormone w/Rflx 1.90 u[iU]/mL Normal 0.45-5.33 [facility] Comment on above: Order Comment: FASTPepe CASON Y Performed By: #### T SH3 wRFLX, [id number], LIPID ####[facility] [id number] Thyrotropin [Units/volume] i n Serum or PlasmaOrdered By: Brent Simmons on 01-13-2024 TSH Qn 1.90 m[IU]/L 0.45-5.33 [facility] TSH Qn Thyrotropin [Units/volume] in Serum or Plasma 0.45-5.33 [facility] Triglyceride [Mass/volume] i n Serum or PlasmaOrdered By: Brent Simmons on 01-13-2024 Triglyceride [Mass/Vol] 105 mg/dL 0-149 [facility] Comment on above: TRIG ATP III CLASSIF ICATIONTRIG less than 150 mg/dL NormalTRIG 150-199 mg/dL Borderline highTRIG 200-500 mg/dL High TRIG greater than 500 mg/dL Very highStandard traceable to the Center for Disease Conrtrol and Prevention (CDC) test method. Triglyceride [Mass/Vol] Triglyceride [Mass/volume] in Serum or Plasma 0-149 [facility] Comment on above: TRIG ATP III CLASSIF ICATIONTRIG less than 150 mg/dL NormalTRIG 150-199 mg/dL Borderline highTRIG 200-500 mg/dL High TRIG greater than 500 mg/dL Very highStandard traceable to the Center for Disease Conrtrol and Prevention (CDC) test method. Vitamin D 25 Hydroxy Totalon 01-13-2024 Vitamin D 25 Hydroxy Total 27.3 ng/mL Low 30-100 [facility] Comment on above: Order Comment: MARÍA Rader Result Comment: Hemo lysis is present at a level that could interfere with the result. Contact lab if redraw is required VITAMIN D STATUS 25(OH)VITAMIN D RANGE (ng/mL) Deficient <20 Insufficient 20 to <30 Sufficient 30 to 100 Reference: Dino Kim, Joe HAIDER, et al. Evaluation,treatment, and prevention of vitamin D deficiency; an Endocrine Society clinical practice guideline. JCEM. 2010; 96(7):1911-30. PERFORMED BY: [facility] [address] [place] [address] PATHOLOGIST [employer] LUCIA WEBSTER M.D. Performed By: #### T SH3 wRFLX, [id number], LIPID ####[facility] [id number] [place] [address] [facility] Vitamin D+Metabolites [Mass/ volume] in Serum or PlasmaOrdered By: Brent Simmons on 01-13-2024 Vitamin D+Metabolites [Mass/Vol] 27.3 ng/mL Low 30-100 [facility] Comment on above: Hemolysis is present at a level that could interfere with the result.Contact lab if redraw is requiredVITAMIN D STATUS 25(OH)VITAMIN D RANGE (ng/mL) Deficient <20 Insufficient 20 to <30Sufficient 30 to 100Reference: Dino Kim, Joe HAIDER, et al. Evaluation,treatment, and prevention of vitamin D deficiency; an Endocrine Society clinical practice guideline. JCEM. 2010; 96(7):1911-30. Vitamin D+Metabolites [Mass/Vol] Vitamin D+Metabolites [Mass/volume] in Serum or Plasma Low 30-100 [facility] Comment on above: Hemolysis is present at a level that could interfere with the result.Contact lab if redraw is requiredVITAMIN D STATUS 25(OH)VITAMIN D RANGE (ng/mL) Deficient <20 Insufficient 20 to <30Sufficient 30 to 100Reference: Dino Kim, Mathew-Devonte HAIDER, et al. Evaluation,treatment, and prevention of vitamin D deficiency; an Endocrine Society clinical practice guideline. JCEM. 2010; 96(7):1911-30. CNDSon 07-18-2023 CNDS Normal [facility] Magnesium SerPl-mCncon 07-17 Magnesium [Mass/Vol] 2.1 mg/dL Normal 1.7-2.3 [facility] Comment on above: Order Comment: Speci men Type: BLOOD SPECIMENOrdering Facility: [facility] Address: [address] [place] [address] Performed By: #### 1 9123-9, 61078-5 ####[facility] LABIA [id number] [place] [address] [place] Renal function 2000 panelon 07-18-2023 Albumin [Mass/Vol] 3.8 g/dL Low 3.9-4.9 [facility] Comment on above: Order Comment: Speci men Type: BLOOD SPECIMENOrdering Facility: [facility] Address: [address] [place] [address] Performed By: #### 1 9123-9, 32393-5 ####[facility] [id number] [place] [address] [place] Anion gap [Moles/Vol] 12 mmol/L Normal 9-18 [facility] Comment on above: Order Comment: Speci men Type: BLOOD SPECIMENOrdering Facility: [facility] Address: [address] [place] [address] Performed By: #### 1 9123-9, 09714-6 ####[facility] LABIA [id number] [place] [id number] [place] Calcium [Mass/Vol] 9.5 mg/dL Normal 8.5-10.2 [facility] Comment on above: Order Comment: Speci men Type: BLOOD SPECIMENOrdering Facility: [facility] Address: [address] [place] [address] Performed By: #### 1 9123-9, 16965-9 ####[facility] LABCLIA [id number] [address] [address] [place] Chloride [Moles/Vol] 105 mmol/L Normal 97-105 [facility] Comment on above: Order Comment: Speci men Type: BLOOD SPECIMENOrdering Facility: [facility] Address: [address] [place] [address] Performed By: #### 1 9123-9, 55720-5 ####[facility] LABCLIA [id number] [place] [address] [place] CO2 [Moles/Vol] 24 mmol/L Normal 22-30 [facility] Comment on above: Order Comment: Speci men Type: BLOOD SPECIMENOrdering Facility: [facility] Address: [address] [place] [address] Performed By: #### 1 9123-9, 49446-9 ####[facility] LABCLIA [id number] [place] [address] [place] Creatinine [Mass/Vol] 0.96 mg/dL Normal 0.58-0.96 [facility] Comment on above: Order Comment: Speci men Type: BLOOD SPECIMENOrdering Facility: [facility] Address: [address] [place] [address] Performed By: #### 1 9123-9, 31439-2 ####[facility] LABCLIA [id number] [place] [id number] [place] Creatinine and Glomerular filtration rate.predicted panel (S/P/Bld) 82 mL/min/1.73m??? Normal >=60 [facility] Comment on above: Order Comment: Speci men Type: BLOOD SPECIMENOrdering Facility: [facility] Address: [address] [place] [address] Result Comment: Albina mated Glomerular Filtration Rate [...] actual GFR. Performed By: #### 1 9123-9, 78818-8 ####[facility] LABCLIA [id number] [place] [address] [place] Glucose [Mass/Vol] 83 mg/dL Normal 74-99 [facility] Comment on above: Order Comment: Arnol osman Type: BLOOD SPECIMENOrdering Facility: [facility] Address: [address] [place] [address] Result Comment: The [employer] [place] [employer] (ADA) provides guidance for cutoff [...] Standards of Medical Care in Diabetes 2016, [employer] [place] [employer]. Diabetes Care. 2016.39(Suppl 1). Performed By: #### 1 9123-9, 67001-7 ####[facility] LABCLIA [id number] [facility] [place] [id number] [place] Phosphate [Mass/Vol] 4.3 mg/dL Normal 2.7-4.8 [facility] Comment on above: Order Comment: Arnol osman Type: BLOOD SPECIMENOrdering Facility: [facility] Address: [address] [place] [address] Performed By: #### 1 9123-9, 72071-2 ####[facility] LABCLIA [id number] [place] [id number] [place] Potassium [Moles/Vol] 4.3 mmol/L Normal 3.7-5.1 [facility] Comment on above: Order Comment: Speci men Type: BLOOD SPECIMENOrdering Facility: [facility] Address: [address] [place] [address] Performed By: #### 1 9123-9, 82746-2 ####[facility] LABCLIA [id number] [place] [address] [place] Sodium [Moles/Vol] 141 mmol/L Normal 136-144 [facility] Comment on above: Order Comment: Speci men Type: BLOOD SPECIMENOrdering Facility: [facility] Address: [address] [place] [address] Performed By: #### 1 9123-9, 73521-7 ####[facility] LABCLIA [id number] [place] [address] [place] Urea nitrogen [Mass/Vol] 18 mg/dL Normal 7-21 [facility] Comment on above: Order Comment: Speci men Type: BLOOD SPECIMENOrdering Facility: [facility] Address: [address] [place] [address] Performed By: #### 1 9123-9, 75724-0 ####[facility] LABCLIA [id number] [place] [id number] [place] CASE MANAGEMon 07-17-2023 CASE MANAGEM Normal [facility] Magnesium SerPl-mCncon 07-16 Magnesium [Mass/Vol] 2.0 mg/dL Normal 1.7-2.3 [facility] Comment on above: Order Comment: Speci men Type: BLOOD SPECIMENOrdering Facility: [facility] Address: [address] [place] [address] Performed By: #### 2 4362-6, 53789-7 ####[facility] LABCLIA [id number] [place] [id number] [place] NUTRITIONon 07-17-2023 NUTRITION Normal [facility] Renal function 2000 panelon 07-17-2023 Albumin [Mass/Vol] 4.3 g/dL Normal 3.9-4.9 [facility] Comment on above: Order Comment: Speci men Type: BLOOD SPECIMENOrdering Facility: [facility] Address: [address] [place] [address] Performed By: #### 2 4362-6, ####[facility] LABCLIA [id number] [place] [address] [place] Anion gap [Moles/Vol] 12 mmol/L Normal 9-18 [facility] Comment on above: Order Comment: Speci men Type: BLOOD SPECIMENOrdering Facility: [facility] Address: [address] [place] [address] Performed By: #### 2 4362-6, ####[facility] LABCLIA [id number] [place] [address] [place] Calcium [Mass/Vol] 9.9 mg/dL Normal 8.5-10.2 [facility] Comment on above: Order Comment: Speci men Type: BLOOD SPECIMENOrdering Facility: [facility] Address: [address] [place] [address] Performed By: #### 2 4362-6, ####[facility] LABCLIA [id number] [place] [address] [place] Chloride [Moles/Vol] 104 mmol/L Normal 97-105 [facility] Comment on above: Order Comment: Speci men Type: BLOOD SPECIMENOrdering Facility: [facility] Address: [address] [place] [address] Performed By: #### 2 4362-6, ####[facility] LABCLIA [id number] [address] [address] [place] CO2 [Moles/Vol] 24 mmol/L Normal 22-30 [facility] Comment on above: Order Comment: Speci men Type: BLOOD SPECIMENOrdering Facility: [facility] Address: [address] [place] [address] Performed By: #### 2 4362-6, ####[facility] LABCLIA [id number] [place] [address] [place] Creatinine [Mass/Vol] 1.03 mg/dL High 0.58-0.96 [facility] Comment on above: Order Comment: Speci men Type: BLOOD SPECIMENOrdering Facility: [facility] Address: [address] [place] [address] Performed By: #### 2 4362-6, ####[facility] LABIA [id number] [place] [address] [place] Creatinine and Glomerular filtration rate.predicted panel (S/P/Bld) 75 mL/min/1.73m??? Normal >=60 [facility] Comment on above: Order Comment: Speci men Type: BLOOD SPECIMENOrdering Facility: [facility] Address: [address] [place] [address] Result Comment: Albina mated Glomerular Filtration Rate [...] actual GFR. Performed By: #### 2 4362-6, ####[facility] LABIA [id number] [place] [address] [place] Glucose [Mass/Vol] 90 mg/dL Normal 74-99 [facility] Comment on above: Order Comment: Speci men Type: BLOOD SPECIMENOrdering Facility: [facility] Address: [address] [place] [address] Result Comment: The [place] [employer] (ADA) provides guidance for cutoff [...] Standards of Medical Care in Diabetes 2016, [employer] [place] [employer]. Diabetes Care. 2016.39(Suppl 1). Performed By: #### 2 4362-6, ####[facility] LABCLIA [id number] [place] [address] [place] Phosphate [Mass/Vol] 3.6 mg/dL Normal 2.7-4.8 [facility] Comment on above: Order Comment: Speci men Type: BLOOD SPECIMENOrdering Facility: [facility] Address: [address] [place] [address] Performed By: #### 2 4362-6, ####[facility] LABCLIA [id number] [place] [address] [place] Potassium [Moles/Vol] 4.5 mmol/L Normal 3.7-5.1 [facility] Comment on above: Order Comment: Speci men Type: BLOOD SPECIMENOrdering Facility: [facility] Address: [address] [place] [address] Performed By: #### 2 4362-6, ####[facility] LABCLIA [id number] [place] [address] [place] Sodium [Moles/Vol] 140 mmol/L Normal 136-144 [facility] Comment on above: Order Comment: Speci men Type: BLOOD SPECIMENOrdering Facility: [facility] Address: [address] [place] [address] Performed By: #### 2 4362-6, ####[facility] LABCLIA [id number] [address] [address] [place] Urea nitrogen [Mass/Vol] 15 mg/dL Normal 7-21 [facility] Comment on above: Order Comment: Speci men Type: BLOOD SPECIMENOrdering Facility: [facility] Address: [address] [place] [address] Performed By: #### 2 4362-6, ####[facility] LABCLIA [id number] [place] [id number] [place] URINALYSIS, DIPSTICK ONLYon 07-17-2023 Bilirubin Ql (U) Negative Normal Negative [facility] Comment on above: Order Comment: Speci men Type: URINE SPECIMENOrdering Facility: [facility] Address: [address] [place] [address] Performed By: #### U A ####[facility] LABCLIA [id number] [place] [address] [place] Clarity (Unsp spec) Clear Normal Clear [facility] Comment on above: Order Comment: Speci men Type: URINE SPECIMENOrdering Facility: [facility] Address: [address] [place] [address] Performed By: #### U A ####[facility] LABIA [id number] [place] [address] [place] Color (U) Yellow Normal Yellow [facility] Comment on above: Order Comment: Speci men Type: URINE SPECIMENOrdering Facility: [facility] Address: [address] [place], [place] [address] Performed By: #### U A ####[facility] LABIA [id number] [place] [id number] [place] Glucose Test strip (U) [Mass/Vol] Negative Normal Negative [facility] Comment on above: Order Comment: Speci men Type: URINE SPECIMENOrdering Facility: [facility] Address: [facility] [place] [address] Performed By: #### U A ####[facility] LABCLIA [id number] [place] [address] [place] Hemoglobin Ql (U) Negative Normal Negative [facility] Comment on above: Order Comment: Speci men Type: URINE SPECIMENOrdering Facility: [facility] Address: [address] [place] [address] Performed By: #### U A ####[facility] LABCLIA [id number] [place] [address] [place] Ketones Ql (U) Negative Normal Negative [facility] Comment on above: Order Comment: Speci men Type: URINE SPECIMENOrdering Facility: [facility] Address: [address] [place] [address] Performed By: #### U A ####[facility] LABCLIA [id number] [place] [address] [place] Leukocyte esterase Test strip Ql (U) Negative Normal Negative [facility] Comment on above: Order Comment: Speci men Type: URINE SPECIMENOrdering Facility: [facility] Address: [address] [place] [address] Performed By: #### U A ####[facility] LABCLIA [id number] [place] [address] [place] Nitrite Ql (U) Negative Normal Negative [facility] Comment on above: Order Comment: Speci men Type: URINE SPECIMENOrdering Facility: [facility] Address: [address] [place] [address] Performed By: #### U A ####[facility] LABCLIA [id number] [place] [address] [place] pH (U) 8.0 [pH] Normal <8.5 [facility] Comment on above: Order Comment: Speci men Type: URINE SPECIMENOrdering Facility: [facility] Address: [address] [place] [address] Performed By: #### U A ####[facility] LABIA [id number] [place] [address] [place] Protein (U) [Mass/Vol] Negative Normal Negative [facility] Comment on above: Order Comment: Speci men Type: URINE SPECIMENOrdering Facility: [facility] Address: [address] [place] [address] Performed By: #### U A ####[facility] LABIA [id number] [place] [address] [place] Specific gravity (U) [Rel density] 1.015 Normal 1.005-1.030 [facility] Comment on above: Order Comment: Speci men Type: URINE SPECIMENOrdering Facility: [facility] Address: [address] [place] [address] Performed By: #### U A ####[facility] LABIA [id number] [place] [address] [place] Urobilinogen Ql (U) 0.2 EU/dL Normal 0.2-1.0 EU/dL [facility] Comment on above: Order Comment: Speci men Type: URINE SPECIMENOrdering Facility: [facility] Address: [address] [place] [address] Performed By: #### U A ####[facility] LABIA [id number] [place] [id number] [place] ALLIED HEALTHon 07-16-2023 ALLIED HEALTH Normal [facility] CASE MANAGEMon 07-16-2023 CASE MANAGEM Normal [facility] CASE MANAGEM Normal [facility] CONSULT PROGon 07-16-2023 CONSULT PROG Normal [facility] Magnesium SerPl-mCncon 07-15 Magnesium [Mass/Vol] 2.0 mg/dL Normal 1.7-2.3 [facility] Comment on above: Order Comment: Speci men Type: BLOOD SPECIMENOrdering Facility: [facility] Address: [address] [place] [address] Performed By: #### 1 9123-9, 64486-3 ####[facility] LABCLIA [id number] [address] [address] [place] NUTRITIONon 07-16-2023 NUTRITION Normal [facility] Renal function 2000 panelon 07-16-2023 Albumin [Mass/Vol] 4.1 g/dL Normal 3.9-4.9 [facility] Comment on above: Order Comment: Speci men Type: BLOOD SPECIMENOrdering Facility: [facility] Address: [address] [place] [address] Performed By: #### 1 9123-9, 92676-1 ####[facility] LABCLIA [id number] [place] [address] [place] Anion gap [Moles/Vol] 12 mmol/L Normal 9-18 [facility] Comment on above: Order Comment: Speci men Type: BLOOD SPECIMENOrdering Facility: [facility] Address: [address] [place] [address] Performed By: #### 1 9123-9, 22564-5 ####[facility] LABCLIA [id number] [place] [address] [place] Calcium [Mass/Vol] 9.4 mg/dL Normal 8.5-10.2 [facility] Comment on above: Order Comment: Speci men Type: BLOOD SPECIMENOrdering Facility: [facility] Address: [address] [place] [address] Performed By: #### 1 9123-9, 80945-4 ####[facility] LABCLIA [id number] [place] [id number] [place] Chloride [Moles/Vol] 105 mmol/L Normal 97-105 [facility] Comment on above: Order Comment: Speci men Type: BLOOD SPECIMENOrdering Facility: [facility] Address: [address] [place] [address] Performed By: #### 1 9123-9, 19957-9 ####[facility] LABCLIA [id number] [place] [address] [place] CO2 [Moles/Vol] 23 mmol/L Normal 22-30 [facility] Comment on above: Order Comment: Speci men Type: BLOOD SPECIMENOrdering Facility: [facility] Address: [address] [place] [address] Performed By: #### 1 9123-9, 92979-3 ####[facility] LABIA [id number] [place] [address] [place] Creatinine [Mass/Vol] 0.90 mg/dL Normal 0.58-0.96 [facility] Comment on above: Order Comment: Speci men Type: BLOOD SPECIMENOrdering Facility: [facility] Address: [address] [place] [address] Performed By: #### 1 9123-9, 79034-0 ####[facility] LABIA [id number] [place] [address] [place] Creatinine and Glomerular filtration rate.predicted panel (S/P/Bld) 88 mL/min/1.73m??? Normal >=60 [facility] Comment on above: Order Comment: Speci men Type: BLOOD SPECIMENOrdering Facility: [facility] Address: [address] [place] [address] Result Comment: Albina mated Glomerular Filtration Rate [...] actual GFR. Performed By: #### 1 9123-9, 26219-9 ####[facility] LABCLIA [id number] [place] [address] [place] Glucose [Mass/Vol] 106 mg/dL High 74-99 [facility] Comment on above: Order Comment: Speci men Type: BLOOD SPECIMENOrdering Facility: [facility] Address: [address] [place] [address] Result Comment: The [employer] [place] [employer] (ADA) provides guidance for cutoff [...] Standards of Medical Care in Diabetes 2016, [employer] [place] [employer]. Diabetes Care. 2016.39(Suppl 1). Performed By: #### 1 9123-9, 37024-9 ####[facility] LABCLIA [id number] [place] [address] [place] Phosphate [Mass/Vol] 3.5 mg/dL Normal 2.7-4.8 [facility] Comment on above: Order Comment: Lisai men Type: BLOOD SPECIMENOrdering Facility: [facility] Address: [address] [place] [address] Performed By: #### 1 9123-9, 01544-4 ####[facility] LABCLIA [id number] [place] [address] [place] Potassium [Moles/Vol] 4.1 mmol/L Normal 3.7-5.1 [facility] Comment on above: Order Comment: Speci men Type: BLOOD SPECIMENOrdering Facility: [facility] Address: [address] [place] [address] Performed By: #### 1 9123-9, 51179-9 ####[facility] LABCLIA [id number] [place] [address] [place] Sodium [Moles/Vol] 140 mmol/L Normal 136-144 [facility] Comment on above: Order Comment: Speci men Type: BLOOD SPECIMENOrdering Facility: [facility] Address: [address] [place] [address] Performed By: #### 1 9123-9, 13602-7 ####[facility] LABCLIA [id number] [place] [address] [place] Urea nitrogen [Mass/Vol] 14 mg/dL Normal 7-21 [facility] Comment on above: Order Comment: Speci men Type: BLOOD SPECIMENOrdering Facility: [facility] Address: [address] [place] [address] Performed By: #### 1 9123-9, 15514-7 ####[facility] LABCLIA [id number] [place] [address] [place] URINALYSIS, DIPSTICK ONLYon 07-16-2023 Bilirubin Ql (U) Negative Normal Negative [facility] Comment on above: Order Comment: Speci men Type: URINE SPECIMENOrdering Facility: [facility] Address: [address] [place] [address] Performed By: #### U A ####[facility] LABCLIA [id number] [place] [address] [place] Clarity (Unsp spec) Clear Normal Clear [facility] Comment on above: Order Comment: Speci men Type: URINE SPECIMENOrdering Facility: [facility] Address: [address] [place] [address] Performed By: #### U A ####[facility] LABIA [id number] [place] [address] [place] Color (U) Yellow Normal Yellow [facility] Comment on above: Order Comment: Speci men Type: URINE SPECIMENOrdering Facility: [facility] Address: [address] [place] [id number] Performed By: #### U A ####[facility] LABCLIA [id number] [place] [address] [place] Glucose Test strip (U) [Mass/Vol] Negative Normal Negative [facility] Comment on above: Order Comment: Speci men Type: URINE SPECIMENOrdering Facility: [facility] Address: [address] [place] [address] Performed By: #### U A ####[facility] LABCLIA [id number] [place] [address] [place] Hemoglobin Ql (U) Negative Normal Negative [facility] Comment on above: Order Comment: Speci men Type: URINE SPECIMENOrdering Facility: [facility] Address: [address] [place] [address] Performed By: #### U A ####[facility] LABCLIA [id number] [place] [address] [place] Ketones Ql (U) Negative Normal Negative [facility] Comment on above: Order Comment: Speci men Type: URINE SPECIMENOrdering Facility: [facility] Address: [address] [place] [address] Performed By: #### U A ####[facility] LABCLIA [id number] [place] [address] [place] Leukocyte esterase Test strip Ql (U) Negative Normal Negative [facility] Comment on above: Order Comment: Speci men Type: URINE SPECIMENOrdering Facility: [facility] Address: [address] [place], [place] [address] Performed By: #### U A ####[facility] LABCLIA [id number] [place] [id number] [place] Nitrite Ql (U) Negative Normal Negative [facility] Comment on above: Order Comment: Speci men Type: URINE SPECIMENOrdering Facility: [facility] Address: [address] [place], [place] [address] Performed By: #### U A ####[facility] LABIA [id number] [place] [address] [place] pH (U) 8.0 [pH] Normal <8.5 [facility] Comment on above: Order Comment: Speci men Type: URINE SPECIMENOrdering Facility: [facility] Address: [address] [place] [address] Performed By: #### U A ####[facility] LABIA [id number] [place] [address] [place] Protein (U) [Mass/Vol] Negative Normal Negative [facility] Comment on above: Order Comment: Speci men Type: URINE SPECIMENOrdering Facility: [facility] Address: [address] [place] [address] Performed By: #### U A ####[facility] LABIA [id number] [place] [address] [place] Specific gravity (U) [Rel density] 1.016 Normal 1.005-1.030 [facility] Comment on above: Order Comment: Speci men Type: URINE SPECIMENOrdering Facility: [facility] Address: [address] [place] [address] Performed By: #### U A ####[facility] LABIA [id number] [place] [address] [place] Urobilinogen Ql (U) 0.2 EU/dL Normal 0.2-1.0 EU/dL [facility] Comment on above: Order Comment: Speci men Type: URINE SPECIMENOrdering Facility: [facility] Address: [address] [place] [address] Performed By: #### U A ####[facility] LABIA [id number] [place] [id number] [place] CASE MANAGEMon 07-15-2023 CASE MANAGEM Normal [facility] CONSULT PROGon 07-15-2023 CONSULT PROG Normal [facility] Magnesium SerPl-mCncon 07-14 Magnesium [Mass/Vol] 2.2 mg/dL Normal 1.7-2.3 [facility] Comment on above: Order Comment: Speci men Type: BLOOD SPECIMENOrdering Facility: [facility] Address: [address] [place] [address] Performed By: #### 2 4362-6, ####[facility] LABCLIA [id number] [place] [id number] [place] NUTRITIONon 07-15-2023 NUTRITION Normal [facility] Renal function 2000 panelon 07-15-2023 Albumin [Mass/Vol] 4.5 g/dL Normal 3.9-4.9 [facility] Comment on above: Order Comment: Speci men Type: BLOOD SPECIMENOrdering Facility: [facility] Address: [address] [place] [address] Performed By: #### 2 4362-6, ####[facility] LABCLIA [id number] [place] [id number] [place] Anion gap [Moles/Vol] 10 mmol/L Normal 9-18 [facility] Comment on above: Order Comment: Speci men Type: BLOOD SPECIMENOrdering Facility: [facility] Address: [address] [place], [place] [address] Performed By: #### 2 4362-6, ####[facility] LABCLIA [id number] [address] [address] [place] Calcium [Mass/Vol] 9.5 mg/dL Normal 8.5-10.2 [facility] Comment on above: Order Comment: Speci men Type: BLOOD SPECIMENOrdering Facility: [facility] Address: [address] [place], [place] [address] Performed By: #### 2 4362-6, ####[facility] LABCLIA [id number] [place] [address] [place] Chloride [Moles/Vol] 106 mmol/L High 97-105 [facility] Comment on above: Order Comment: Speci men Type: BLOOD SPECIMENOrdering Facility: [facility] Address: [address] [place] [address] Performed By: #### 2 4362-6, ####[facility] LABIA [id number] [place] [address] [place] CO2 [Moles/Vol] 25 mmol/L Normal 22-30 [facility] Comment on above: Order Comment: Speci men Type: BLOOD SPECIMENOrdering Facility: [facility] Address: [address] [place] [address] Performed By: #### 2 4362-6, ####[facility] LABIA [id number] [place] [address] [place] Creatinine [Mass/Vol] 0.92 mg/dL Normal 0.58-0.96 [facility] Comment on above: Order Comment: Speci men Type: BLOOD SPECIMENOrdering Facility: [facility] Address: [address] [place] [address] Performed By: #### 2 4362-6, ####[facility] LABIA [id number] [place] [address] [place] Creatinine and Glomerular filtration rate.predicted panel (S/P/Bld) 86 mL/min/1.73m??? Normal >=60 [facility] Comment on above: Order Comment: Speci men Type: BLOOD SPECIMENOrdering Facility: [facility] Address: [address] [place] [address] Result Comment: Albina mated Glomerular Filtration Rate [...] actual GFR. Performed By: #### 2 4362-6, ####[facility] LABCLIA [id number] [address] [address] [place] Glucose [Mass/Vol] 101 mg/dL High 74-99 [facility] Comment on above: Order Comment: Arnol osman Type: BLOOD SPECIMENOrdering Facility: [facility] Address: [address] [place] [address] Result Comment: The [employer] [place] [employer] (ADA) provides guidance for cutoff [...] Standards of Medical Care in Diabetes 2016, [employer]. Diabetes Care. 2016.39(Suppl 1). Performed By: #### 2 4362-6, ####[facility] LABCLIA [id number] [address] [address] [place] Phosphate [Mass/Vol] 3.9 mg/dL Normal 2.7-4.8 [facility] Comment on above: Order Comment: Arnol osman Type: BLOOD SPECIMENOrdering Facility: [facility] Address: [address] [place] [address] Performed By: #### 2 4362-6, ####[facility] LABCLIA [id number] [facility] [address] [address] [place] Potassium [Moles/Vol] 4.4 mmol/L Normal 3.7-5.1 [facility] Comment on above: Order Comment: Speci men Type: BLOOD SPECIMENOrdering Facility: [facility] Address: [address] [place] [address] Performed By: #### 2 4362-6, ####[facility] LABCLIA [id number] [place] [id number] [place] Sodium [Moles/Vol] 141 mmol/L Normal 136-144 [facility] Comment on above: Order Comment: Speci men Type: BLOOD SPECIMENOrdering Facility: [facility] Address: [address] [place] [address] Performed By: #### 2 4362-6, ####[facility] LABIA [id number] [place] [address] [place] Urea nitrogen [Mass/Vol] 10 mg/dL Normal 7-21 [facility] Comment on above: Order Comment: Speci men Type: BLOOD SPECIMENOrdering Facility: [facility] Address: [address] [place] [address] Performed By: #### 2 4362-6, ####[facility] LABCLIA [id number] [place] [address] [place] URINALYSIS, DIPSTICK ONLYon 07-15-2023 Bilirubin Ql (U) Negative Normal Negative [facility] Comment on above: Order Comment: Speci men Type: URINE SPECIMENOrdering Facility: [facility] Address: [address] [place] [address] Performed By: #### U A ####[facility] LABCLIA [id number] [place] [address] [place] Clarity (Unsp spec) Clear Normal Clear [facility] Comment on above: Order Comment: Speci men Type: URINE SPECIMENOrdering Facility: [facility] Address: [address] [place] [address] Performed By: #### U A ####[facility] LABCLIA [id number] [place] [address] [place] Color (U) Yellow Normal Yellow [facility] Comment on above: Order Comment: Speci men Type: URINE SPECIMENOrdering Facility: [facility] Address: [address] [place] [address] Performed By: #### U A ####[facility] LABCLIA [id number] [place] [address] [place] Glucose Test strip (U) [Mass/Vol] Negative Normal Negative [facility] Comment on above: Order Comment: Speci men Type: URINE SPECIMENOrdering Facility: [facility] Address: [address] [place] [address] Performed By: #### U A ####[facility] LABCLIA [id number] [place] [address] [place] Hemoglobin Ql (U) Negative Normal Negative [facility] Comment on above: Order Comment: Speci men Type: URINE SPECIMENOrdering Facility: [facility] Address: [address] [place] [address] Performed By: #### U A ####[facility] LABCLIA [id number] [place] [address] [place] Ketones Ql (U) Negative Normal Negative [facility] Comment on above: Order Comment: Speci men Type: URINE SPECIMENOrdering Facility: [facility] Address: [address] [place] [address] Performed By: #### U A ####[facility] LABCLIA [id number] [place] [address] [place] Leukocyte esterase Test strip Ql (U) Negative Normal Negative [facility] Comment on above: Order Comment: Speci men Type: URINE SPECIMENOrdering Facility: [facility] Address: [address] [place] [address] Performed By: #### U A ####[facility] LABCLIA [id number] [place] [address] [place] Nitrite Ql (U) Negative Normal Negative [facility] Comment on above: Order Comment: Speci men Type: URINE SPECIMENOrdering Facility: [facility] Address: [address] [place] [address] Performed By: #### U A ####[facility] LABCLIA [id number] [place] [address] [place] pH (U) 8.0 [pH] Normal <8.5 [facility] Comment on above: Order Comment: Speci men Type: URINE SPECIMENOrdering Facility: [facility] Address: [address] [place] [address] Performed By: #### U A ####[facility] LABCLIA [id number] [place] [address] [place] Protein (U) [Mass/Vol] Negative Normal Negative [facility] Comment on above: Order Comment: Speci men Type: URINE SPECIMENOrdering Facility: [facility] Address: [address] [place] [address] Performed By: #### U A ####[facility] LABCLIA [id number] [place] [address] [place] Specific gravity (U) [Rel density] 1.012 Normal 1.005-1.030 [facility] Comment on above: Order Comment: Speci men Type: URINE SPECIMENOrdering Facility: [facility] Address: [address] [place] [address] Performed By: #### U A ####[facility] LABIA [id number] [place] [address] [place] Urobilinogen Ql (U) 0.2 EU/dL Normal 0.2-1.0 EU/dL [facility] Comment on above: Order Comment: Speci men Type: URINE SPECIMENOrdering Facility: [facility] Address: [address] [place] [address] Performed By: #### U A ####[facility] LABCLIA [id number] [place] [address] [place] CASE MANAGEMon 07-14-2023 CASE MANAGEM Normal [facility] CASE MANAGEM Normal [facility] CBC panel Auto (Bld)on 07-13 Erythrocyte distribution width (RBC) [Ratio] 12.0 % Normal 11.5-15.0 [facility] Comment on above: Order Comment: Speci men Type: BLOOD SPECIMENOrdering Facility: [facility] Address: [address] [place] [address] Performed By: #### 5 8410-2 ####[facility] LABCLIA [id number] [place] [address] [place] Hematocrit (Bld) [Volume fraction] 41.1 % Normal 36.0-46.0 [facility] Comment on above: Order Comment: Speci men Type: BLOOD SPECIMENOrdering Facility: [facility] Address: [address] [place] [address] Performed By: #### 5 8410-2 ####[facility] LABIA [id number] [place] [address] [place] Hemoglobin (Bld) [Mass/Vol] 13.6 g/dL Normal 11.5-15.5 [facility] Comment on above: Order Comment: Speci men Type: BLOOD SPECIMENOrdering Facility: [facility] Address: [address] [place] [address] Performed By: #### 5 8410-2 ####[facility] LABCLIA [id number] [place] [address] [place] MCH (RBC) [Entitic mass] 31.3 pg Normal 26.0-34.0 [facility] Comment on above: Order Comment: Speci men Type: BLOOD SPECIMENOrdering Facility: [facility] Address: [address] [place] [address] Performed By: #### 5 8410-2 ####[facility] LABCLIA [id number] [place] [address] [place] MCHC (RBC) [Mass/Vol] 33.1 g/dL Normal 30.5-36.0 [facility] Comment on above: Order Comment: Speci men Type: BLOOD SPECIMENOrdering Facility: [facility] Address: [address] [place] [address] Performed By: #### 5 8410-2 ####[facility] LABCLIA [id number] [place] [address] [place] MCV (RBC) [Entitic vol] 94.5 fL Normal 80.0-100.0 [facility] Comment on above: Order Comment: Speci men Type: BLOOD SPECIMENOrdering Facility: [facility] Address: [address] [place] [address] Performed By: #### 5 8410-2 ####[facility] LABIA [id number] [place] [address] [place] Nucleated RBC (Bld) [#/Vol] 10*3/uL Normal <0.01 [facility] Comment on above: Order Comment: Speci men Type: BLOOD SPECIMENOrdering Facility: [facility] Address: [address] [place] [address] Performed By: #### 5 8410-2 ####[facility] LABIA [id number] [place] [address] [place] Platelet mean volume (Bld) [Entitic vol] 12.8 fL High 9.0-12.7 [facility] Comment on above: Order Comment: Speci men Type: BLOOD SPECIMENOrdering Facility: [facility] Address: [address] [place] [address] Performed By: #### 5 8410-2 ####[facility] LABIA [id number] [place] [address] [place] Platelets (Bld) [#/Vol] 206 10*3/uL Normal 150-400 [facility] Comment on above: Order Comment: Speci men Type: BLOOD SPECIMENOrdering Facility: [facility] Address: [address] [place] [address] Performed By: #### 5 8410-2 ####[facility] LABCLIA [id number] [place] [address] [place] RBC (Bld) [#/Vol] 4.35 10*6/uL Normal 3.90-5.20 [facility] Comment on above: Order Comment: Speci men Type: BLOOD SPECIMENOrdering Facility: [facility] Address: [address] [place] [address] Performed By: #### 5 8410-2 ####[facility] LABCLIA [id number] [place] [address] [place] WBC (Bld) [#/Vol] 10.44 10*3/uL Normal 3.70-11.00 [facility] Comment on above: Order Comment: Speci men Type: BLOOD SPECIMENOrdering Facility: [facility] Address: [address] [place] [address] Performed By: #### 5 8410-2 ####[facility] LABCLIA [id number] [place] [address] [place] CONSULT PROGon 07-14-2023 CONSULT PROG Normal [facility] Magnesium SerPl-mCncon 07-13 Magnesium [Mass/Vol] 2.1 mg/dL Normal 1.7-2.3 [facility] Comment on above: Order Comment: Speci men Type: BLOOD SPECIMENOrdering Facility: [facility] Address: [address] [place] [address] Performed By: #### 1 9123-9, 18899-6 ####[facility] LABCLIA [id number] [address] [place] NUTRITIONon 07-14-2023 NUTRITION Normal [facility] Renal function 2000 panelon 07-14-2023 Albumin [Mass/Vol] 4.0 g/dL Normal 3.9-4.9 [facility] Comment on above: Order Comment: Speci men Type: BLOOD SPECIMENOrdering Facility: [facility] Address: [address] [place] [address] Performed By: #### 1 9123-9, 02747-6 ####[facility] LABCLIA [id number] [place] [address] [place] Anion gap [Moles/Vol] 11 mmol/L Normal 9-18 [facility] Comment on above: Order Comment: Speci men Type: BLOOD SPECIMENOrdering Facility: [facility] Address: [address] [place] [address] Performed By: #### 1 9123-9, 14088-0 ####[facility] LABCLIA [id number] [place] [address] [place] Calcium [Mass/Vol] 9.3 mg/dL Normal 8.5-10.2 [facility] Comment on above: Order Comment: Speci men Type: BLOOD SPECIMENOrdering Facility: [facility] Address: [address] [place] [address] Performed By: #### 1 9123-9, 10273-3 ####[facility] LABCLIA [id number] [place] [address] [place] Chloride [Moles/Vol] 108 mmol/L High 97-105 [facility] Comment on above: Order Comment: Speci men Type: BLOOD SPECIMENOrdering Facility: [facility] Address: [address] [place] [address] Performed By: #### 1 9123-9, 10939-8 ####[facility] LABCLIA [id number] [place] [address] [place] CO2 [Moles/Vol] 23 mmol/L Normal 22-30 [facility] Comment on above: Order Comment: Speci men Type: BLOOD SPECIMENOrdering Facility: [facility] Address: [address] [place] [address] Performed By: #### 1 9123-9, 79764-7 ####[facility] LABCLIA [id number] [place] [address] [place] Creatinine [Mass/Vol] 0.88 mg/dL Normal 0.58-0.96 [facility] Comment on above: Order Comment: Speci men Type: BLOOD SPECIMENOrdering Facility: [facility] Address: [address] [place] [address] Performed By: #### 1 9123-9, 53942-3 ####[facility] LABCLIA [id number] [place] [address] [place] Creatinine and Glomerular filtration rate.predicted panel (S/P/Bld) 91 mL/min/1.73m??? Normal >=60 [facility] Comment on above: Order Comment: Speci men Type: BLOOD SPECIMENOrdering Facility: [facility] Address: [address] [place] [address] Result Comment: Albina mated Glomerular Filtration Rate [...] actual GFR. Performed By: #### 1 9123-9, 62214-6 ####[facility] LABCLIA [id number] [place] [address] [place] Glucose [Mass/Vol] 89 mg/dL Normal 74-99 [facility] Comment on above: Order Comment: Speci men Type: BLOOD SPECIMENOrdering Facility: [facility] Address: [address] [place] [address] Result Comment: The [employer] [place] [employer] (ADA) provides guidance for cutoff [...] Standards of Medical Care in Diabetes 2016, [employer] [place] [employer]. Diabetes Care. 2016.39(Suppl 1). Performed By: #### 1 9123-9, 54294-3 ####[facility] LABIA [id number] [place] [address] [place] Phosphate [Mass/Vol] 3.4 mg/dL Normal 2.7-4.8 [facility] Comment on above: Order Comment: Speci men Type: BLOOD SPECIMENOrdering Facility: [facility] Address: [address] [place] [address] Performed By: #### 1 9123-9, 15958-6 ####[facility] LABIA [id number] [place] [id number] [place] Potassium [Moles/Vol] 4.4 mmol/L Normal 3.7-5.1 [facility] Comment on above: Order Comment: Speci men Type: BLOOD SPECIMENOrdering Facility: [facility] Address: [address] [place] [address] Performed By: #### 1 9123-9, 84511-9 ####[facility] LABIA [id number] [place] [id number] [place] Sodium [Moles/Vol] 142 mmol/L Normal 136-144 [facility] Comment on above: Order Comment: Speci men Type: BLOOD SPECIMENOrdering Facility: [facility] Address: [address] [place] [address] Performed By: #### 1 9123-9, 73623-8 ####[facility] LABCLIA [id number] [place] [address] [place] Urea nitrogen [Mass/Vol] 9 mg/dL Normal 7-21 [facility] Comment on above: Order Comment: Speci men Type: BLOOD SPECIMENOrdering Facility: [facility] Address: [address] [place] [address] Performed By: #### 1 9123-9, 36923-9 ####[facility] LABCLIA [id number] [place] [address] [place] URINALYSIS, DIPSTICK ONLYon 07-14-2023 Bilirubin Ql (U) Negative Normal Negative [facility] Comment on above: Order Comment: Speci men Type: URINE SPECIMENOrdering Facility: [facility] Address: [address] [place] [address] Performed By: #### U A ####[facility] LABCLIA [id number] [place] [address] [place] Clarity (Unsp spec) Cloudy Abnormal Clear [facility] Comment on above: Order Comment: Speci men Type: URINE SPECIMENOrdering Facility: [facility] Address: [address] [place] [address] Performed By: #### U A ####[facility] LABCLIA [id number] [place] [address] [place] Color (U) Yellow Normal Yellow [facility] Comment on above: Order Comment: Speci men Type: URINE SPECIMENOrdering Facility: [facility] Address: [address] [place] [address] Performed By: #### U A ####[facility] LABCLIA [id number] [place] [address] [place] Glucose Test strip (U) [Mass/Vol] Negative Normal Negative [facility] Comment on above: Order Comment: Speci men Type: URINE SPECIMENOrdering Facility: [facility] Address: [address] [place] [address] Performed By: #### U A ####[facility] LABCLIA [id number] [place] [address] [place] Hemoglobin Ql (U) 2+ Abnormal Negative [facility] Comment on above: Order Comment: Speci men Type: URINE SPECIMENOrdering Facility: [facility] Address: [address] [place] [address] Performed By: #### U A ####[facility] LABCLIA [id number] [place] [address] [place] Ketones Ql (U) Negative Normal Negative [facility] Comment on above: Order Comment: Speci men Type: URINE SPECIMENOrdering Facility: [facility] Address: [address] [place] [address] Performed By: #### U A ####[facility] LABCLIA [id number] [place] [address] [place] Leukocyte esterase Test strip Ql (U) Negative Normal Negative [facility] Comment on above: Order Comment: Speci men Type: URINE SPECIMENOrdering Facility: [facility] Address: [address] [place] [address] Performed By: #### U A ####[facility] LABCLIA [id number] [place] [address] [place] Nitrite Ql (U) Negative Normal Negative [facility] Comment on above: Order Comment: Speci men Type: URINE SPECIMENOrdering Facility: [facility] Address: [address] [place] [address] Performed By: #### U A ####[facility] LABCLIA [id number] [place] [address] [place] pH (U) 8.0 [pH] Normal <8.5 [facility] Comment on above: Order Comment: Speci men Type: URINE SPECIMENOrdering Facility: [facility] Address: [address] [place] [address] Performed By: #### U A ####[facility] [id number] [place] [address] [place] Protein (U) [Mass/Vol] Negative Normal Negative Cl [facility] Comment on above: Order Comment: Speci men Type: URINE SPECIMENOrdering Facility: [facility] Address: [address] [place] [address] Performed By: #### U A ####[facility] [id number] [place] [address] [place] Specific gravity (U) [Rel density] 1.013 Normal 1.005-1.030 [facility] Comment on above: Order Comment: Speci men Type: URINE SPECIMENOrdering Facility: [facility] Address: [address] [place] [address] Performed By: #### U A ####[facility] [id number] [place] [address] [place] Urobilinogen Ql (U) 0.2 EU/dL Normal 0.2-1.0 EU/dL Cl [facility] [place] Comment on above: Order Comment: Speci men Type: URINE SPECIMENOrdering Facility: [facility] Address: [address] [place] [address] Performed By: #### U A ####[facility] [id number] [place] [address] [place] CBC panel Auto (Bld)on 07-12 Erythrocyte distribution width (RBC) [Ratio] 11.9 % Normal 11.5-15.0 [facility] Comment on above: Order Comment: Speci men Type: BLOOD SPECIMENOrdering Facility: [facility] Address: [address] [place] [address] Performed By: #### 5 8410-2 ####[facility] LABIA [id number] [place] [address] [place] Hematocrit (Bld) [Volume fraction] 42.1 % Normal 36.0-46.0 [facility] Comment on above: Order Comment: Speci men Type: BLOOD SPECIMENOrdering Facility: [facility] Address: [address] [place] [address] Performed By: #### 5 8410-2 ####[facility] LABIA [id number] [place] [address] [place] Hemoglobin (Bld) [Mass/Vol] 14.2 g/dL Normal 11.5-15.5 [facility] Comment on above: Order Comment: Speci men Type: BLOOD SPECIMENOrdering Facility: [facility] Address: [address] [place] [address] Performed By: #### 5 8410-2 ####[facility] [id number] [place] [address] [place] MCH (RBC) [Entitic mass] 31.8 pg Normal 26.0-34.0 [facility] Comment on above: Order Comment: Speci men Type: BLOOD SPECIMENOrdering Facility: [facility] Address: [address] [place] [address] Performed By: #### 5 8410-2 ####[facility] [id number] [place] [address] [place] MCHC (RBC) [Mass/Vol] 33.7 g/dL Normal 30.5-36.0 [facility] Comment on above: Order Comment: Speci men Type: BLOOD SPECIMENOrdering Facility: [facility] Address: [address] [place] [address] Performed By: #### 5 8410-2 ####[facility] [id number] [place] [address] [place] MCV (RBC) [Entitic vol] 94.4 fL Normal 80.0-100.0 [facility] Comment on above: Order Comment: Speci men Type: BLOOD SPECIMENOrdering Facility: [facility] Address: [address] [place] [address] Performed By: #### 5 8410-2 ####[facility] LABIA [id number] [place] [address] [place] Nucleated RBC (Bld) [#/Vol] 10*3/uL Normal <0.01 [facility] Comment on above: Order Comment: Speci men Type: BLOOD SPECIMENOrdering Facility: [facility] Address: [address] [place] [address] Performed By: #### 5 8410-2 ####[facility] LABIA [id number] [place] [address] [place] Platelet mean volume (Bld) [Entitic vol] 12.6 fL Normal 9.0-12.7 [facility] Comment on above: Order Comment: Speci men Type: BLOOD SPECIMENOrdering Facility: [facility] Address: [address] [place] [address] Performed By: #### 5 8410-2 ####[facility] LABIA [id number] [place] [address] [place] Platelets (Bld) [#/Vol] 194 10*3/uL Normal 150-400 [facility] Comment on above: Order Comment: Speci men Type: BLOOD SPECIMENOrdering Facility: [facility] Address: [address] [place] [address] Performed By: #### 5 8410-2 ####[facility]IA [id number] [place] [address] [place] RBC (Bld) [#/Vol] 4.46 10*6/uL Normal 3.90-5.20 [facility] Comment on above: Order Comment: Speci men Type: BLOOD SPECIMENOrdering Facility: [facility] Address: [address] [place] [address] Performed By: #### 5 8410-2 ####[facility] [id number] [place] [address] [place] WBC (Bld) [#/Vol] 9.65 10*3/uL Normal 3.70-11.00 [facility] Comment on above: Order Comment: Speci men Type: BLOOD SPECIMENOrdering Facility: [facility] Address: [address] [place] [address] Performed By: #### 5 8410-2 ####[facility]IA [id number] [place] [address] [place] Magnesium SerPl-ncon 07-12 Magnesium [Mass/Vol] 2.2 mg/dL Normal 1.7-2.3 [facility] Comment on above: Order Comment: Speci men Type: BLOOD SPECIMENOrdering Facility: [facility] Address: [address] [place] [address] Performed By: #### 2 4362-6, ####[facility] [id number] [place] [address] [place] NUTRITIONon 07-13-2023 NUTRITION Normal [facility] Renal function 2000 panelon 07-13-2023 Albumin [Mass/Vol] 4.1 g/dL Normal 3.9-4.9 [facility] Comment on above: Order Comment: Speci men Type: BLOOD SPECIMENOrdering Facility: [facility] Address: [address] [place] [address] Performed By: #### 2 4362-6, 55107-0 ####[facility] LABIA [id number] [place] [address] [place] Anion gap [Moles/Vol] 10 mmol/L Normal 9-18 [facility] Comment on above: Order Comment: Speci men Type: BLOOD SPECIMENOrdering Facility: [facility] Address: [address] [place], [place] [address] Performed By: #### 2 4362-6, ####[facility] LABCLIA [id number] [address] [address] [place] Calcium [Mass/Vol] 9.3 mg/dL Normal 8.5-10.2 [facility] Comment on above: Order Comment: Speci men Type: BLOOD SPECIMENOrdering Facility: [facility] Address: [address] [place], [place] [address] Performed By: #### 2 4362-6, ####[facility]CL[facility] [id number] [place] [address] [place] Chloride [Moles/Vol] 108 mmol/L High 97-105 [facility] Comment on above: Order Comment: Speci men Type: BLOOD SPECIMENOrdering Facility: [facility] Address: [address] [place] [address] Performed By: #### 2 436-6, ####[facility]CL[facility] [id number] [place] [address] [place] CO2 [Moles/Vol] 24 mmol/L Normal 22-30 [facility] Comment on above: Order Comment: Speci men Type: BLOOD SPECIMENOrdering Facility: [facility] Address: [address] [place], [place] [address] Performed By: #### 2 436-6, ####[facility]CLIA [id number] [place] [id number] [place] Creatinine [Mass/Vol] 0.96 mg/dL Normal 0.58-0.96 [facility] Comment on above: Order Comment: Speci men Type: BLOOD SPECIMENOrdering Facility: [facility] Address: [address] [place], [place] [address] Performed By: #### 2 436- ####[facility]CL[facility] [id number] [place] [address] [place] Creatinine and Glomerular filtration rate.predicted panel (S/P/Bld) 82 mL/min/1.73m??? Normal >=60 [facility] Comment on above: Order Comment: Arnol osman Type: BLOOD SPECIMENOrdering Facility: [facility] Address: [address] [place] [address] Result Comment: Albina mated Glomerular Filtration Rate [...] actual GFR. Performed By: #### 2 4362-6, ####[facility] LABIA [id number] [place] [address] [place] Glucose [Mass/Vol] 103 mg/dL High 74-99 [facility] Comment on above: Order Comment: Arnol osman Type: BLOOD SPECIMENOrdering Facility: [facility] Address: [address] [place] [address] Result Comment: The [employer] [place] [employer] (ADA) provides guidance for cutoff [...] Standards of Medical Care in Diabetes 2016, [employer] [place] [employer]. Diabetes Care. 2016.39(Suppl 1). Performed By: #### 2 4362-6, ####[facility] LABCLIA [id number] [place] [id number] [place] Phosphate [Mass/Vol] 3.2 mg/dL Normal 2.7-4.8 [facility] Comment on above: Order Comment: Speci men Type: BLOOD SPECIMENOrdering Facility: [facility] Address: [address] [place] [address] Performed By: #### 2 4362-6, ####[facility]CL[facility] [id number] [place] [address] [place] Potassium [Moles/Vol] 4.3 mmol/L Normal 3.7-5.1 [facility] Comment on above: Order Comment: Speci men Type: BLOOD SPECIMENOrdering Facility: [facility] Address: [address] [place] [address] Performed By: #### 2 4362-6, ####[facility]CL[facility] [id number] [place] [address] [place] Sodium [Moles/Vol] 142 mmol/L Normal 136-144 [facility] Comment on above: Order Comment: Speci men Type: BLOOD SPECIMENOrdering Facility: [facility] Address: [address] [place] [address] Performed By: #### 2 4362-6, ####[facility] LABCLIA [id number] [place] [address] [place] Urea nitrogen [Mass/Vol] 8 mg/dL Normal 7-21 [facility] Comment on above: Order Comment: Speci men Type: BLOOD SPECIMENOrdering Facility: [facility] Address: [address] [place] [address] Performed By: #### 2 4362-6, ####[facility] LABCLIA [id number] [place] [id number] [place] URINALYSIS, DIPSTICK ONLYon 03-03-2024 Bilirubin Ql (U) Negative Normal Negative [facility] Comment on above: Order Comment: Speci men Type: URINE SPECIMENOrdering Facility: [facility] Address: [address] [place] [address] Performed By: #### U A ####[facility] LABCLIA [id number] [place] [address] [place] Clarity (Unsp spec) Cloudy Abnormal Clear [facility] Comment on above: Order Comment: Speci men Type: URINE SPECIMENOrdering Facility: [facility] Address: [address] [place] [address] Performed By: #### U A ####[facility] LABCLIA [id number] [place] [address] [place] Color (U) Yellow Normal Yellow [facility] Comment on above: Order Comment: Speci men Type: URINE SPECIMENOrdering Facility: [facility] Address: [address] [place] [address] Performed By: #### U A ####[facility]CL[facility] [id number] [place] [address] [place] Glucose Test strip (U) [Mass/Vol] Negative Normal Negative [facility] Comment on above: Order Comment: Speci men Type: URINE SPECIMENOrdering Facility: [facility] Address: [address] [place] [address] Performed By: #### U A ####[facility]CLIA [id number] [place] [address] [place] Hemoglobin Ql (U) Negative Normal Negative [facility] Comment on above: Order Comment: Speci men Type: URINE SPECIMENOrdering Facility: [facility] Address: [address] [place] [address] Performed By: #### U A ####[facility] LABCLIA [id number] [place] [address] [place] Ketones Ql (U) Negative Normal Negative [facility] Comment on above: Order Comment: Speci men Type: URINE SPECIMENOrdering Facility: [facility] Address: [address] [place] [address] Performed By: #### U A ####[facility] LABCLIA [id number] [place] [address] [place] Leukocyte esterase Test strip Ql (U) Trace Abnormal Negative [facility] Comment on above: Order Comment: Speci men Type: URINE SPECIMENOrdering Facility: [facility] Address: [address] [place] [address] Performed By: #### U A ####[facility]IA [id number] [place] [address] [place] Nitrite Ql (U) Negative Normal Negative [facility] Comment on above: Order Comment: Speci men Type: URINE SPECIMENOrdering Facility: [facility] Address: [address] [place] [address] Performed By: #### U A ####[facility] LABIA [id number] [place] [address] [place] pH (U) 8.0 [pH] Normal <8.5 [facility] Comment on above: Order Comment: Speci men Type: URINE SPECIMENOrdering Facility: [facility] Address: [address] [place] [address] Performed By: #### U A ####[facility] LABCLIA [id number] [place] [address] [place] Protein (U) [Mass/Vol] Negative Normal Negative [facility] Comment on above: Order Comment: Speci men Type: URINE SPECIMENOrdering Facility: [facility] Address: [address] [place] [address] Performed By: #### U A ####[facility] LABIA [id number] [place] [address] [place] Specific gravity (U) [Rel density] 1.022 Normal 1.005-1.030 [facility] Comment on above: Order Comment: Speci men Type: URINE SPECIMENOrdering Facility: [facility] Address: [address] [place] [address] Performed By: #### U A ####[facility]CL[facility] [id number] [place] [address] [place] Urobilinogen Ql (U) 0.2 EU/dL Normal 0.2-1.0 EU/dL [facility] Comment on above: Order Comment: Speci men Type: URINE SPECIMENOrdering Facility: [facility] Address: [address] [place] [address] Performed By: #### U A ####[facility] LABIA [id number] [place] [address] [place] ALLIED HEALTHon 07-12-2023 ALLIED HEALTH Normal [facility] B-HCG SerPl-aCncon HCG.beta subunit Qn m[IU]/mL Normal <5.0 [facility] Comment on above: Order Comment: Speci men Type: BLOOD SPECIMENOrdering Facility: [facility] Address: [address] [place] [address] Result Comment: Vanessa glynn Performed By: #### 2 1198-7 ####[facility] LABIA [id number] [place] [address] [place] CBC panel Auto (Bld)on 07-11 Erythrocyte distribution width (RBC) [Ratio] 12.0 % Normal 11.5-15.0 [facility] Comment on above: Order Comment: Speci men Type: BLOOD SPECIMENOrdering Facility: [facility] Address: [address] [place] [address] Performed By: #### 5 8410-2 ####[facility] LABIA [id number] [place] [address] [place] Hematocrit (Bld) [Volume fraction] 41.0 % Normal 36.0-46.0 [facility] Comment on above: Order Comment: Speci men Type: BLOOD SPECIMENOrdering Facility: [facility] Address: [address] [place] [address] Performed By: #### 5 8410-2 ####[facility]IA [id number] [place] [address] [place] Hemoglobin (Bld) [Mass/Vol] 13.6 g/dL Normal 11.5-15.5 [facility] Comment on above: Order Comment: Speci men Type: BLOOD SPECIMENOrdering Facility: [facility] Address: [address] [place] [address] Performed By: #### 5 8410-2 ####[facility] LABIA [id number] [place] [address] [place] MCH (RBC) [Entitic mass] 31.5 pg Normal 26.0-34.0 [facility] Comment on above: Order Comment: Speci men Type: BLOOD SPECIMENOrdering Facility: [facility] Address: [address] [place] [address] Performed By: #### 5 8410-2 ####[facility] LABIA [id number] [place] [address] [place] MCHC (RBC) [Mass/Vol] 33.2 g/dL Normal 30.5-36.0 [facility] Comment on above: Order Comment: Speci men Type: BLOOD SPECIMENOrdering Facility: [facility] Address: [address] [place] [address] Performed By: #### 5 8410-2 ####[facility] LABIA [id number] [place] [address] [place] MCV (RBC) [Entitic vol] 94.9 fL Normal 80.0-100.0 [facility] Comment on above: Order Comment: Speci men Type: BLOOD SPECIMENOrdering Facility: [facility] Address: [address] [place] [address] Performed By: #### 5 8410-2 ####[facility] LABCLIA [id number] [place] [address] [place] Nucleated RBC (Bld) [#/Vol] 10*3/uL Normal <0.01 [facility] Comment on above: Order Comment: Speci men Type: BLOOD SPECIMENOrdering Facility: [facility] Address: [address] [place] [address] Performed By: #### 5 8410-2 ####[facility] LABCLIA [id number] [place] [address] [place] Platelet mean volume (Bld) [Entitic vol] 12.8 fL High 9.0-12.7 [facility] Comment on above: Order Comment: Speci men Type: BLOOD SPECIMENOrdering Facility: [facility] Address: [address] [place] [address] Performed By: #### 5 8410-2 ####[facility] LABCLIA [id number] [place] [address] [place] Platelets (Bld) [#/Vol] 202 10*3/uL Normal 150-400 [facility] Comment on above: Order Comment: Speci men Type: BLOOD SPECIMENOrdering Facility: [facility] Address: [address] [place] [address] Performed By: #### 5 8410-2 ####[facility] LABCLIA [id number] [place] [address] [place] RBC (Bld) [#/Vol] 4.32 10*6/uL Normal 3.90-5.20 [facility] Comment on above: Order Comment: Speci men Type: BLOOD SPECIMENOrdering Facility: [facility] Address: [address] [place] [address] Performed By: #### 5 8410-2 ####[facility] LABCLIA [id number] [address] [address] [place] WBC (Bld) [#/Vol] 10.07 10*3/uL Normal 3.70-11.00 [facility] Comment on above: Order Comment: Speci men Type: BLOOD SPECIMENOrdering Facility: [facility] Address: [address] [place] [address] Performed By: #### 5 8410-2 ####[facility] LABIA [id number] [place] [address] [place] Magnesium SerPl-mCncon 07-11 Magnesium [Mass/Vol] 2.2 mg/dL Normal 1.7-2.3 [facility] Comment on above: Order Comment: Speci men Type: BLOOD SPECIMENOrdering Facility: [facility] Address: [address] [place] [address] Performed By: #### 1 9123-9, 40613-6 ####[facility] LABIA [id number] [place] [address] [place] Renal function 2000 panelon 07-12-2023 Albumin [Mass/Vol] 4.2 g/dL Normal 3.9-4.9 [facility] Comment on above: Order Comment: Speci men Type: BLOOD SPECIMENOrdering Facility: [facility] Address: [address] [place] [address] Performed By: #### 1 9123-9, 27164-5 ####[facility]IA [id number] [place] [address] [place] Anion gap [Moles/Vol] 10 mmol/L Normal 9-18 [facility] Comment on above: Order Comment: Speci men Type: BLOOD SPECIMENOrdering Facility: [facility] Address: [address] [place] [address] Performed By: #### 1 9123-9, 36438-3 ####[facility] LABCLIA [id number] [place] [address] [place] Calcium [Mass/Vol] 9.1 mg/dL Normal 8.5-10.2 [facility] Comment on above: Order Comment: Speci men Type: BLOOD SPECIMENOrdering Facility: [facility] Address: [address] [place] [address] Performed By: #### 1 9123-9, 11339-1 ####[facility]CLIA [id number] [place] [address] [place] Chloride [Moles/Vol] 104 mmol/L Normal 97-105 [facility] Comment on above: Order Comment: Speci men Type: BLOOD SPECIMENOrdering Facility: [facility] Address: [address] [place] [address] Performed By: #### 1 9123-9, 99924-3 ####[facility]CLIA [id number] [place] [address] [place] CO2 [Moles/Vol] 25 mmol/L Normal 22-30 [facility] Comment on above: Order Comment: Speci men Type: BLOOD SPECIMENOrdering Facility: [facility] Address: [address] [place] [address] Performed By: #### 1 9123-9, 01097-5 ####[facility] LABCLIA [id number] [place] [address] [place] Creatinine [Mass/Vol] 0.87 mg/dL Normal 0.58-0.96 [facility] Comment on above: Order Comment: Speci men Type: BLOOD SPECIMENOrdering Facility: [facility] Address: [address] [place] [address] Performed By: #### 1 9123-9, 41375-1 ####[facility] LABCLIA [id number] [place] [address] [place] Creatinine and Glomerular filtration rate.predicted panel (S/P/Bld) 92 mL/min/1.73m??? Normal >=60 [facility] Comment on above: Order Comment: Arnol osman Type: BLOOD SPECIMENOrdering Facility: [facility] Address: [address] [place] [address] Result Comment: Albina mated Glomerular Filtration Rate [...] actual GFR. Performed By: #### 1 9123-9, 95018-7 ####[facility] LABCLIA [id number] [place] [address] [place] Glucose [Mass/Vol] 174 mg/dL High 74-99 [facility] Comment on above: Order Comment: Arnol osman Type: BLOOD SPECIMENOrdering Facility: [facility] Address: [address] [place] [address] Result Comment: The [employer] [place] [employer] (ADA) provides guidance for cutoff [...] Standards of Medical Care in Diabetes 2016, [employer] [place] [employer]. Diabetes Care. 2016.39(Suppl 1). Performed By: #### 1 9123-9, 27078-6 ####[facility] LABCLIA [id number] [place] [address] [place] Phosphate [Mass/Vol] 3.5 mg/dL Normal 2.7-4.8 [facility] Comment on above: Order Comment: Speci men Type: BLOOD SPECIMENOrdering Facility: [facility] Address: [address] [place] [address] Performed By: #### 1 9123-9, 13213-6 ####[facility] LABCLIA [id number] [place] [address] [place] Potassium [Moles/Vol] 4.4 mmol/L Normal 3.7-5.1 [facility] Comment on above: Order Comment: Speci men Type: BLOOD SPECIMENOrdering Facility: [facility] Address: [address] [place] [address] Performed By: #### 1 9123-9, 95187-8 ####[facility] LABIA [id number] [place] [address] [place] Sodium [Moles/Vol] 139 mmol/L Normal 136-144 [facility] Comment on above: Order Comment: Speci men Type: BLOOD SPECIMENOrdering Facility: [facility] Address: [address] [place] [address] Performed By: #### 1 9123-9, 84909-1 ####[facility] LABIA [id number] [place] [address] [place] Urea nitrogen [Mass/Vol] 8 mg/dL Normal 7-21 [facility] Comment on above: Order Comment: Speci men Type: BLOOD SPECIMENOrdering Facility: [facility] Address: [address] [place] [address] Performed By: #### 1 9123-9, 60736-8 ####[facility] LABIA [id number] [place] [address] [place] S pyo DNA Throat Ql HEENA+prob chris 07-12-2023 S. pyogenes DNA HEENA+probe Ql (Throat) Not detected Normal Not detected [facility] Comment on above: Order Comment: Speci men Type: SWABOrdering Facility: [facility] Address: [address] [place] [address] Performed By: #### 6 0489-2 ####[facility] LABCLIA [id number] [place] [address] [place] URINALYSIS, DIPSTICK ONLYon 07-12-2023 Bilirubin Ql (U) Negative Normal Negative [facility] Comment on above: Order Comment: Speci men Type: URINE SPECIMENOrdering Facility: [facility] Address: [address] [place] [address] Performed By: #### U A ####[facility] LABCLIA [id number] [place] [address] [place] Clarity (Unsp spec) Clear Normal Clear [facility] Comment on above: Order Comment: Speci men Type: URINE SPECIMENOrdering Facility: [facility] Address: [address] [place] [address] Performed By: #### U A ####[facility] LABCLIA [id number] [place] [address] [place] Color (U) Yellow Normal Yellow [facility] Comment on above: Order Comment: Speci men Type: URINE SPECIMENOrdering Facility: [facility] Address: [address] [place] [address] Performed By: #### U A ####[facility] LABIA [id number] [place] [address] [place] Glucose Test strip (U) [Mass/Vol] Negative Normal Negative [facility] Comment on above: Order Comment: Speci men Type: URINE SPECIMENOrdering Facility: [facility] Address: [address] [place] [address] Performed By: #### U A ####[facility] LABCLIA [id number] [place] [address] [place] Hemoglobin Ql (U) Negative Normal Negative [facility] Comment on above: Order Comment: Speci men Type: URINE SPECIMENOrdering Facility: [facility] Address: [address] [place] [address] Performed By: #### U A ####[facility] LABCLIA [id number] [place] [address] [place] Ketones Ql (U) Negative Normal Negative [facility] Comment on above: Order Comment: Speci men Type: URINE SPECIMENOrdering Facility: [facility] Address: [address] [place] [address] Performed By: #### U A ####[facility] LABIA [id number] [place] [address] [place] Leukocyte esterase Test strip Ql (U) Negative Normal Negative [facility] Comment on above: Order Comment: Speci men Type: URINE SPECIMENOrdering Facility: [facility] Address: [address] [place] [address] Performed By: #### U A ####[facility] LABIA [id number] [place] [address] [place] Nitrite Ql (U) Negative Normal Negative [facility] Comment on above: Order Comment: Speci men Type: URINE SPECIMENOrdering Facility: [facility] Address: [address] [place] [address] Performed By: #### U A ####[facility] LABIA [id number] [place] [address] [place] pH (U) 7.5 [pH] Normal <8.5 [facility] Comment on above: Order Comment: Speci men Type: URINE SPECIMENOrdering Facility: [facility] Address: [address] [place] [address] Performed By: #### U A ####[facility] LABIA [id number] [place] [address] [place] Protein (U) [Mass/Vol] Negative Normal Negative [facility] Comment on above: Order Comment: Speci men Type: URINE SPECIMENOrdering Facility: [facility] Address: [address] [place] [address] Performed By: #### U A ####[facility] LABIA [id number] [place] [address] [place] Specific gravity (U) [Rel density] 1.007 Normal 1.005-1.030 [facility] Comment on above: Order Comment: Speci men Type: URINE SPECIMENOrdering Facility: [facility] Address: [address] [place] [address] Performed By: #### U A ####[facility] LABIA [id number] [place] [address] [place] Urobilinogen Ql (U) 0.2 EU/dL Normal 0.2-1.0 EU/dL [facility] Comment on above: Order Comment: Speci men Type: URINE SPECIMENOrdering Facility: [facility] Address: [address] [place] [address] Performed By: #### U A ####[facility] LABIA [id number] [place] [address] [place] Bilirubin Ql (U) Negative Normal Negative [facility] Comment on above: Order Comment: Speci men Type: URINE SPECIMENOrdering Facility: [facility] Address: [address] [place] [address] Performed By: #### U A ####[facility] LABIA [id number] [place] [address] [place] Clarity (Unsp spec) Clear Normal Clear [facility] Comment on above: Order Comment: Speci men Type: URINE SPECIMENOrdering Facility: [facility] Address: [address] [place] [address] Performed By: #### U A ####[facility] LABIA [id number] [place] [address] [place] Color (U) Yellow Normal Yellow [facility] Comment on above: Order Comment: Speci men Type: URINE SPECIMENOrdering Facility: [facility] Address: [address] [id number] Performed By: #### U A ####[facility] LABCLIA [id number] [place] [id number] [place] Glucose Test strip (U) [Mass/Vol] Negative Normal Negative [facility] Comment on above: Order Comment: Speci men Type: URINE SPECIMENOrdering Facility: [facility] Address: [address] [place] [address] Performed By: #### U A ####[facility] LABCLIA [id number] [place] [address] [place] Hemoglobin Ql (U) Negative Normal Negative [facility] Comment on above: Order Comment: Speci men Type: URINE SPECIMENOrdering Facility: [facility] Address: [address] [place] [address] Performed By: #### U A ####[facility] LABCLIA [id number] [place] [address] [place] Ketones Ql (U) Negative Normal Negative [facility] Comment on above: Order Comment: Speci men Type: URINE SPECIMENOrdering Facility: [facility] Address: [address] [place] [address] Performed By: #### U A ####[facility] LABCLIA [id number] [place] [address] [place] Leukocyte esterase Test strip Ql (U) Negative Normal Negative [facility] Comment on above: Order Comment: Speci men Type: URINE SPECIMENOrdering Facility: [facility] Address: [address] [place] [address] Performed By: #### U A ####[facility] LABCLIA [id number] [place] [address] [place] Nitrite Ql (U) Negative Normal Negative [facility] Comment on above: Order Comment: Speci men Type: URINE SPECIMENOrdering Facility: [facility] Address: [address] [place] [address] Performed By: #### U A ####[facility] LABIA [id number] [place] [address] [place] pH (U) 7.5 [pH] Normal <8.5 [facility] Comment on above: Order Comment: Speci men Type: URINE SPECIMENOrdering Facility: [facility] Address: [address] [place] [address] Performed By: #### U A ####[facility] LABIA [id number] [place] [address] [place] Protein (U) [Mass/Vol] Negative Normal Negative [facility] Comment on above: Order Comment: Speci men Type: URINE SPECIMENOrdering Facility: [facility] Address: [address] [place] [address] Performed By: #### U A ####[facility] LABIA [id number] [place] [address] [place] Specific gravity (U) [Rel density] 1.009 Normal 1.005-1.030 [facility] Comment on above: Order Comment: Speci men Type: URINE SPECIMENOrdering Facility: [facility] Address: [address] [place] [address] Performed By: #### U A ####[facility] LABIA [id number] [place] [address] [place] Urobilinogen Ql (U) 0.2 EU/dL Normal 0.2-1.0 EU/dL [facility] Comment on above: Order Comment: Speci men Type: URINE SPECIMENOrdering Facility: [facility] Address: [address] [place] [address] Performed By: #### U A ####[facility] LABIA [id number] [place] [address] [place] CASE MANAGEMon 07-11-2023 CASE MANAGEM Normal [facility] CBC panel Auto (Bld)on 07-10 Erythrocyte distribution width (RBC) [Ratio] 12.1 % Normal 11.5-15.0 [facility] Comment on above: Order Comment: Speci men Type: BLOOD SPECIMENOrdering Facility: [facility] Address: [address] [place] [address] Performed By: #### 5 8410-2 ####[facility] LABIA [id number] [place] [address] [place] Hematocrit (Bld) [Volume fraction] 41.6 % Normal 36.0-46.0 [facility] Comment on above: Order Comment: Speci men Type: BLOOD SPECIMENOrdering Facility: [facility] Address: [address] [place] [address] Performed By: #### 5 8410-2 ####[facility] LABIA [id number] [place] [address] [place] Hemoglobin (Bld) [Mass/Vol] 14.4 g/dL Normal 11.5-15.5 [facility] Comment on above: Order Comment: Speci men Type: BLOOD SPECIMENOrdering Facility: [facility] Address: [address] [place] [address] Performed By: #### 5 8410-2 ####[facility] LABIA [id number] [place] [address] [place] MCH (RBC) [Entitic mass] 32.0 pg Normal 26.0-34.0 [facility] Comment on above: Order Comment: Speci men Type: BLOOD SPECIMENOrdering Facility: [facility] Address: [address] [place] [address] Performed By: #### 5 8410-2 ####[facility] LABIA [id number] [place] [address] [place] MCHC (RBC) [Mass/Vol] 34.6 g/dL Normal 30.5-36.0 [facility] Comment on above: Order Comment: Speci men Type: BLOOD SPECIMENOrdering Facility: [facility] Address: [address] [place] [address] Performed By: #### 5 8410-2 ####[facility] LABIA [id number] [place] [address] [place] MCV (RBC) [Entitic vol] 92.4 fL Normal 80.0-100.0 [facility] Comment on above: Order Comment: Speci men Type: BLOOD SPECIMENOrdering Facility: [facility] Address: [address] [place] [address] Performed By: #### 5 8410-2 ####[facility] LABIA [id number] [place] [address] [place] Nucleated RBC (Bld) [#/Vol] 10*3/uL Normal <0.01 [facility] Comment on above: Order Comment: Speci men Type: BLOOD SPECIMENOrdering Facility: [facility] Address: [address] [place] [address] Performed By: #### 5 8410-2 ####[facility] LABIA [id number] [place] [address] [place] Platelet mean volume (Bld) [Entitic vol] 12.7 fL Normal 9.0-12.7 [facility] Comment on above: Order Comment: Speci men Type: BLOOD SPECIMENOrdering Facility: [facility] Address: [address] [place] [address] Performed By: #### 5 8410-2 ####[facility] LABIA [id number] [place] [address] [place] Platelets (Bld) [#/Vol] 185 10*3/uL Normal 150-400 [facility] Comment on above: Order Comment: Speci men Type: BLOOD SPECIMENOrdering Facility: [facility] Address: [address] [place], [place] [address] Performed By: #### 5 8410-2 ####[facility] LABIA [id number] [place] [id number] [place] RBC (Bld) [#/Vol] 4.50 10*6/uL Normal 3.90-5.20 [facility] Comment on above: Order Comment: Speci men Type: BLOOD SPECIMENOrdering Facility: [facility] Address: [address] [place] [address] Performed By: #### 5 8410-2 ####[facility] LABIA [id number] [place] [address] [place] WBC (Bld) [#/Vol] 9.63 10*3/uL Normal 3.70-11.00 [facility] Comment on above: Order Comment: Speci men Type: BLOOD SPECIMENOrdering Facility: [facility] Address: [address] [place] [address] Performed By: #### 5 8410-2 ####[facility] LABIA [id number] [place] [id number] [place] CONSULTon 07-11-2023 CONSULT Normal [facility] CONSULT PROGon 07-11-2023 CONSULT PROG Normal [facility] Magnesium SerPl-mCncon 07-10 Magnesium [Mass/Vol] 2.2 mg/dL Normal 1.7-2.3 [facility] Comment on above: Order Comment: Speci men Type: BLOOD SPECIMENOrdering Facility: [facility] Address: [address] [place] [address] Performed By: #### 1 9123-9, 04821-7 ####[facility] LABIA [id number] [place] [id number] [place] NUTRITIONon 07-11-2023 NUTRITION Normal [facility] Renal function 2000 panelon 07-11-2023 Albumin [Mass/Vol] 4.3 g/dL Normal 3.9-4.9 [facility] Comment on above: Order Comment: Speci men Type: BLOOD SPECIMENOrdering Facility: [facility] Address: [address] [place] [address] Performed By: #### 1 9123-9, 86608-5 ####[facility] LABCLIA [id number] [place] [address] [place] Anion gap [Moles/Vol] 12 mmol/L Normal 9-18 [facility] Comment on above: Order Comment: Speci men Type: BLOOD SPECIMENOrdering Facility: [facility] Address: [address] [place] [address] Performed By: #### 1 9123-9, 65144-9 ####[facility] LABCLIA [id number] [place] [address] [place] Calcium [Mass/Vol] 9.5 mg/dL Normal 8.5-10.2 [facility] Comment on above: Order Comment: Speci men Type: BLOOD SPECIMENOrdering Facility: [facility] Address: [address] [place] [address] Performed By: #### 1 9123-9, 33074-4 ####[facility] LABCLIA [id number] [place] [address] [place] Chloride [Moles/Vol] 107 mmol/L High 97-105 [facility] Comment on above: Order Comment: Speci men Type: BLOOD SPECIMENOrdering Facility: [facility] Address: [address] [place] [address] Performed By: #### 1 9123-9, 72043-7 ####[facility] LABCLIA [id number] [place] [address] [place] CO2 [Moles/Vol] 23 mmol/L Normal 22-30 [facility] Comment on above: Order Comment: Speci men Type: BLOOD SPECIMENOrdering Facility: [facility] Address: [address] [place] [address] Performed By: #### 1 9123-9, 75562-6 ####[facility] LABIA [id number] [place] [address] [place] Creatinine [Mass/Vol] 0.89 mg/dL Normal 0.58-0.96 [facility] Comment on above: Order Comment: Speci men Type: BLOOD SPECIMENOrdering Facility: [facility] Address: [address] [place] [address] Performed By: #### 1 9123-9, 33217-2 ####[facility] [id number] [place] [address] [place] Creatinine and Glomerular filtration rate.predicted panel (S/P/Bld) 90 mL/min/1.73m??? Normal >=60 [facility] Comment on above: Order Comment: Speci men Type: BLOOD SPECIMENOrdering Facility: [facility] Address: [address] [place] [address] Result Comment: Albina mated Glomerular Filtration Rate [...] actual GFR. Performed By: #### 1 9123-9, 99601-1 ####[facility] [id number] [place] [address] [place] Glucose [Mass/Vol] 82 mg/dL Normal 74-99 [facility] Comment on above: Order Comment: Speci men Type: BLOOD SPECIMENOrdering Facility: [facility] Address: [address] [place] [address] Result Comment: The [place] [employer] (ADA) provides guidance for cutoff [...] Standards of Medical Care in Diabetes 2016, [place] [employer]. Diabetes Care. 2016.39(Suppl 1). Performed By: #### 1 9123-9, 85102-2 ####[facility] LABCLIA [id number] [place] [address] [place] Phosphate [Mass/Vol] 4.3 mg/dL Normal 2.7-4.8 [facility] Comment on above: Order Comment: Speci men Type: BLOOD SPECIMENOrdering Facility: [facility] Address: [address] [place] [address] Performed By: #### 1 91239, 01323-2 ####[facility] LABCLIA [id number] [place] [address] [place] Potassium [Moles/Vol] 4.2 mmol/L Normal 3.7-5.1 [facility] Comment on above: Order Comment: Speci men Type: BLOOD SPECIMENOrdering Facility: [facility] Address: [address] [place] [address] Performed By: #### 1 91239, 09453-9 ####[facility] LABCLIA [id number] [facility] [place] [address] [place] Sodium [Moles/Vol] 142 mmol/L Normal 136-144 [facility] Comment on above: Order Comment: Speci men Type: BLOOD SPECIMENOrdering Facility: [facility] Address: [address] [place] [address] Performed By: #### 1 9123-9, 65509-0 ####[facility] LABCLIA [id number] [place] [address] [place] Urea nitrogen [Mass/Vol] 7 mg/dL Normal 7-21 [facility] Comment on above: Order Comment: Speci men Type: BLOOD SPECIMENOrdering Facility: [facility] Address: [address] [place] [address] Performed By: #### 1 9123-9, 42411-9 ####[facility] LABCLIA [id number] [place] [address] [place] URINALYSIS, DIPSTICK ONLYon 07-11-2023 Bilirubin Ql (U) Negative Normal Negative [facility] Comment on above: Order Comment: Speci men Type: URINE SPECIMENOrdering Facility: [facility] Address: [address] [place] [address] Performed By: #### U A ####[facility] LABIA [id number] [place] [address] [place] Clarity (Unsp spec) Clear Normal Clear [facility] Comment on above: Order Comment: Speci men Type: URINE SPECIMENOrdering Facility: [facility] Address: [address] [place] [address] Performed By: #### U A ####[facility] LABCLIA [id number] [place] [address] [place] Color (U) Yellow Normal Yellow [facility] Comment on above: Order Comment: Speci men Type: URINE SPECIMENOrdering Facility: [facility] Address: [address] [place] [address] Performed By: #### U A ####[facility] LABIA [id number] [place] [address] [place] Glucose Test strip (U) [Mass/Vol] Negative Normal Negative [facility] Comment on above: Order Comment: Speci men Type: URINE SPECIMENOrdering Facility: [facility] Address: [address] [place] [address] Performed By: #### U A ####[facility] LABCLIA [id number] [place] [address] [place] Hemoglobin Ql (U) Negative Normal Negative [facility] Comment on above: Order Comment: Speci men Type: URINE SPECIMENOrdering Facility: [facility] Address: [address] [place] [address] Performed By: #### U A ####[facility] LABCLIA [id number] [place] [address] [place] Ketones Ql (U) Negative Normal Negative [facility] Comment on above: Order Comment: Speci men Type: URINE SPECIMENOrdering Facility: [facility] Address: [address] [place] [address] Performed By: #### U A ####[facility] LABCLIA [id number] [place] [address] [place] Leukocyte esterase Test strip Ql (U) Negative Normal Negative [facility] Comment on above: Order Comment: Speci men Type: URINE SPECIMENOrdering Facility: [facility] Address: [address] [place] [address] Performed By: #### U A ####[facility] LABCLIA [id number] [place] [address] [place] Nitrite Ql (U) Negative Normal Negative [facility] Comment on above: Order Comment: Speci men Type: URINE SPECIMENOrdering Facility: [facility] Address: [address] [place] [address] Performed By: #### U A ####[facility] LABCLIA [id number] [place] [address] [place] pH (U) 7.5 [pH] Normal <8.5 [facility] Comment on above: Order Comment: Speci men Type: URINE SPECIMENOrdering Facility: [facility] Address: [address] [place] [address] Performed By: #### U A ####[facility] LABCLIA [id number] [place] [address] [place] Protein (U) [Mass/Vol] Negative Normal Negative Cl [facility] Comment on above: Order Comment: Speci men Type: URINE SPECIMENOrdering Facility: [facility] Address: [address] [place] [address] Performed By: #### U A ####[facility] LABIA [id number] [place] [address] [place] Specific gravity (U) [Rel density] 1.005 Normal 1.005-1.030 [facility] Comment on above: Order Comment: Speci men Type: URINE SPECIMENOrdering Facility: [facility] Address: [address] [place] [address] Performed By: #### U A ####[facility] LABIA [id number] [place] [address] [place] Urobilinogen Ql (U) 0.2 EU/dL Normal 0.2-1.0 EU/dL Cl [facility] Comment on above: Order Comment: Speci men Type: URINE SPECIMENOrdering Facility: [facility] Address: [address] [place] [address] Performed By: #### U A ####[facility] LABIA [id number] [place] [address] [place] CASE MANAGEMon 07-10-2023 CASE MANAGEM Normal [facility] CBC panel Auto (Bld)on Erythrocyte distribution width (RBC) [Ratio] 12.4 % Normal 11.5-15.0 [facility] Comment on above: Order Comment: Speci men Type: BLOOD SPECIMENOrdering Facility: [facility] Address: [address] [place] [address] Performed By: #### 5 8410-2 ####[facility] LABIA [id number] [place] [address] [place] Hematocrit (Bld) [Volume fraction] 39.4 % Normal 36.0-46.0 [facility] Comment on above: Order Comment: Speci men Type: BLOOD SPECIMENOrdering Facility: [facility] Address: [address] [place] [address] Performed By: #### 5 8410-2 ####[facility] LABIA [id number] [place] [address] [place] Hemoglobin (Bld) [Mass/Vol] 13.8 g/dL Normal 11.5-15.5 [facility] Comment on above: Order Comment: Speci men Type: BLOOD SPECIMENOrdering Facility: [facility] Address: [address] [place] [address] Performed By: #### 5 8410-2 ####[facility] LABCLIA [id number] [place] [address] [place] MCH (RBC) [Entitic mass] 32.4 pg Normal 26.0-34.0 [facility] Comment on above: Order Comment: Speci men Type: BLOOD SPECIMENOrdering Facility: [facility] Address: [address] [place] [address] Performed By: #### 5 8410-2 ####[facility] LABIA [id number] [place] [address] [place] MCHC (RBC) [Mass/Vol] 35.0 g/dL Normal 30.5-36.0 [facility] Comment on above: Order Comment: Speci men Type: BLOOD SPECIMENOrdering Facility: [facility] Address: [address] [place] [address] Performed By: #### 5 8410-2 ####[facility] LABCLIA [id number] [place] [address] [place] MCV (RBC) [Entitic vol] 92.5 fL Normal 80.0-100.0 [facility] Comment on above: Order Comment: Speci men Type: BLOOD SPECIMENOrdering Facility: [facility] Address: [address] [place] [address] Performed By: #### 5 8410-2 ####[facility] LABCLIA [id number] [place] [address] [place] Nucleated RBC (Bld) [#/Vol] 10*3/uL Normal <0.01 [facility] Comment on above: Order Comment: Speci men Type: BLOOD SPECIMENOrdering Facility: [facility] Address: [address] [place] [address] Performed By: #### 5 8410-2 ####[facility] LABIA [id number] [place] [address] [place] Platelet mean volume (Bld) [Entitic vol] 12.8 fL High 9.0-12.7 [facility] Comment on above: Order Comment: Speci men Type: BLOOD SPECIMENOrdering Facility: [facility] Address: [address] [place] [address] Performed By: #### 5 8410-2 ####[facility] LABIA [id number] [place] [address] [place] Platelets (Bld) [#/Vol] 174 10*3/uL Normal 150-400 [facility] Comment on above: Order Comment: Speci men Type: BLOOD SPECIMENOrdering Facility: [facility] Address: [address] [place] [address] Performed By: #### 5 8410-2 ####[facility] LABIA [id number] [place] [address] [place] RBC (Bld) [#/Vol] 4.26 10*6/uL Normal 3.90-5.20 [facility] Comment on above: Order Comment: Speci men Type: BLOOD SPECIMENOrdering Facility: [facility] Address: [address] [place] [address] Performed By: #### 5 8410-2 ####[facility] LABCLIA [id number] [place] [address] [place] WBC (Bld) [#/Vol] 9.14 10*3/uL Normal 3.70-11.00 [facility] Comment on above: Order Comment: Speci men Type: BLOOD SPECIMENOrdering Facility: [facility] Address: [address] [place] [address] Performed By: #### 5 8410-2 ####[facility] LABCLIA [id number] [place] [address] [place] CONSULT PROGon 07-10-2023 CONSULT PROG Normal [facility] MEDICAL EMERon 07-10-2023 MEDICAL ANJEL Normal [facility] Magnesium SerPl-mCncon Magnesium [Mass/Vol] 2.0 mg/dL Normal 1.7-2.3 [facility] Comment on above: Order Comment: Speci men Type: BLOOD SPECIMENOrdering Facility: [facility] Address: [address] [place] [address] Performed By: #### 1 9123-9, 39971-1 ####[facility] LABIA [id number] [place] [address] [place] NURSING PROGon 07-10-2023 NURSING PROG Normal [facility] NUTRITIONon 07-10-2023 NUTRITION Normal [facility] Renal function 2000 panelon 07-10-2023 Albumin [Mass/Vol] 4.0 g/dL Normal 3.9-4.9 [facility] Comment on above: Order Comment: Speci men Type: BLOOD SPECIMENOrdering Facility: [facility] Address: [address] [place] [address] [place] [address] Performed By: #### 1 9123-9, 19744-4 ####[facility] LABCLIA [id number] [place] [address] [place] Anion gap [Moles/Vol] 10 mmol/L Normal 9-18 [facility] Comment on above: Order Comment: Speci men Type: BLOOD SPECIMENOrdering Facility: [facility] Address: [address] [place] [address] Performed By: #### 1 9123-9, 86613-7 ####[facility] LABCLIA [id number] [place] [address] [place] Calcium [Mass/Vol] 9.2 mg/dL Normal 8.5-10.2 [facility] Comment on above: Order Comment: Speci men Type: BLOOD SPECIMENOrdering Facility: [facility] Address: [address] [place] [address] Performed By: #### 1 9123-9, 47983-5 ####[facility] LABCLIA [id number] [place] [address] [place] Chloride [Moles/Vol] 106 mmol/L High 97-105 [facility] Comment on above: Order Comment: Speci men Type: BLOOD SPECIMENOrdering Facility: [facility] Address: [address] [place] [address] Performed By: #### 1 9123-9, 53023-1 ####[facility] LABCLIA [id number] [place] [address] [place] CO2 [Moles/Vol] 26 mmol/L Normal 22-30 [facility] Comment on above: Order Comment: Speci men Type: BLOOD SPECIMENOrdering Facility: [facility] Address: [address] [place] [address] Performed By: #### 1 9123-9, 60718-9 ####[facility] LABCLIA [id number] [place] [address] [place] Creatinine [Mass/Vol] 0.98 mg/dL High 0.58-0.96 [facility] Comment on above: Order Comment: Speci men Type: BLOOD SPECIMENOrdering Facility: [facility] Address: [address] [place] [address] Performed By: #### 1 9123-9, 13954-2 ####[facility] LABIA [id number] [place] [address] [place] Creatinine and Glomerular filtration rate.predicted panel (S/P/Bld) 80 mL/min/1.73m??? Normal >=60 [facility] Comment on above: Order Comment: Arnol osman Type: BLOOD SPECIMENOrdering Facility: [facility] Address: [address] [place] [address] Result Comment: Albina mated Glomerular Filtration Rate [...] actual GFR. Performed By: #### 1 9123-9, 85928-7 ####[facility] LABIA [id number] [place] [address] [place] Glucose [Mass/Vol] 78 mg/dL Normal 74-99 [facility] Comment on above: Order Comment: Arnol osman Type: BLOOD SPECIMENOrdering Facility: [facility] Address: [address] [place] [address] Result Comment: The [employer] [place] [employer] (ADA) provides guidance for cutoff [...] Standards of Medical Care in Diabetes 2016, [employer] [place] [employer]. Diabetes Care. 2016.39(Suppl 1). Performed By: #### 1 9123-9, 49608-7 ####[facility] LABCLIA [id number] [place] [address] [place] Phosphate [Mass/Vol] 3.9 mg/dL Normal 2.7-4.8 [facility] Comment on above: Order Comment: Speci men Type: BLOOD SPECIMENOrdering Facility: [facility] Address: [address] [place] [address] Performed By: #### 1 9123-9, 50130-4 ####[facility] LABCLIA [id number] [place] [address] [place] Potassium [Moles/Vol] 3.8 mmol/L Normal 3.7-5.1 [facility] Comment on above: Order Comment: Speci men Type: BLOOD SPECIMENOrdering Facility: [facility] Address: [address] [place] [address] Performed By: #### 1 9123-9, 81538-9 ####[facility] LABIA [id number] [place] [address] [place] Sodium [Moles/Vol] 142 mmol/L Normal 136-144 [facility] Comment on above: Order Comment: Speci men Type: BLOOD SPECIMENOrdering Facility: [facility] Address: [address] [place] [address] Performed By: #### 1 9123-9, 78548-0 ####[facility] LABCLIA [id number] [place] [address] [place] Urea nitrogen [Mass/Vol] 6 mg/dL Low 7-21 [facility] Comment on above: Order Comment: Speci men Type: BLOOD SPECIMENOrdering Facility: [facility] Address: [address] [place] [address] Performed By: #### 1 9123-9, 15736-7 ####[facility] LABCLIA [id number] [place] [address] [place] XR ABDOMEN 1V SUPINEon XR ABDOMEN 1V SUPINE [facility] XR CHEST 1V FRONTAL PORTon 0 07-10-2023 XR CHEST 1V FRONTAL PORT Normal [facility] Zinc SerPl-mCncon 07-10-2023 Zinc [Mass/Vol] 58 ug/dL Low 60-120 [facility] Comment on above: Order Comment: Speci men Type: BLOOD SPECIMENOrdering Facility: [facility] Address: [address] [place] [address] Result Comment: This test was developed and its performance characteristics determined by [facility] Pathology and Laboratory Medicine [place] ([facility]). It has not been cleared or approved by the FDA. [facility] is regulated under CLIA as qualified to perform high-complexity testing. This test is used for clinical purposes. It should not be regarded as investigational or for research. Performed By: #### 5 763-8 ####[facility] LABCLIA [id number] [place] [address] [place] CBC panel Auto (Bld)on 07-09 Erythrocyte distribution width (RBC) [Ratio] 12.1 % Normal 11.5-15.0 [facility] Comment on above: Order Comment: Speci men Type: BLOOD SPECIMENOrdering Facility: [facility] Address: [address] [place] [address] Performed By: #### 5 8410-2 ####[facility] LABCLIA [id number] [place] [address] [place] Hematocrit (Bld) [Volume fraction] 39.0 % Normal 36.0-46.0 [facility] Comment on above: Order Comment: Speci men Type: BLOOD SPECIMENOrdering Facility: [facility] Address: [address] [place] [address] Performed By: #### 5 8410-2 ####[facility] LABCLIA [id number] [address] [address] [place] Hemoglobin (Bld) [Mass/Vol] 13.5 g/dL Normal 11.5-15.5 [facility] Comment on above: Order Comment: Speci men Type: BLOOD SPECIMENOrdering Facility: [facility] Address: [address] [place] [address] Performed By: #### 5 8410-2 ####[facility] LABIA [id number] [place] [address] [place] MCH (RBC) [Entitic mass] 31.8 pg Normal 26.0-34.0 [facility] Comment on above: Order Comment: Speci men Type: BLOOD SPECIMENOrdering Facility: [facility] Address: [address] [place] [address] Performed By: #### 5 8410-2 ####[facility] LABIA [id number] [place] [address] [place] MCHC (RBC) [Mass/Vol] 34.6 g/dL Normal 30.5-36.0 [facility] Comment on above: Order Comment: Speci men Type: BLOOD SPECIMENOrdering Facility: [facility] Address: [address] [place] [address] Performed By: #### 5 8410-2 ####[facility] LABIA [id number] [place] [address] [place] MCV (RBC) [Entitic vol] 91.8 fL Normal 80.0-100.0 [facility] Comment on above: Order Comment: Speci men Type: BLOOD SPECIMENOrdering Facility: [facility] Address: [address] [place] [address] Performed By: #### 5 8410-2 ####[facility] LABIA [id number] [place] [address] [place] Nucleated RBC (Bld) [#/Vol] 10*3/uL Normal <0.01 [facility] Comment on above: Order Comment: Speci men Type: BLOOD SPECIMENOrdering Facility: [facility] Address: [address] [place] [address] Performed By: #### 5 8410-2 ####[facility] LABIA [id number] [place] [address] [place] Platelet mean volume (Bld) [Entitic vol] 12.1 fL Normal 9.0-12.7 [facility] Comment on above: Order Comment: Speci men Type: BLOOD SPECIMENOrdering Facility: [facility] Address: [address] [place] [address] Performed By: #### 5 8410-2 ####[facility] LABIA [id number] [place] [address] [place] Platelets (Bld) [#/Vol] 193 10*3/uL Normal 150-400 [facility] Comment on above: Order Comment: Speci men Type: BLOOD SPECIMENOrdering Facility: [facility] Address: [address] [place] [address] Performed By: #### 5 8410-2 ####[facility] LABIA [id number] [place] [address] [place] RBC (Bld) [#/Vol] 4.25 10*6/uL Normal 3.90-5.20 [facility] Comment on above: Order Comment: Speci men Type: BLOOD SPECIMENOrdering Facility: [facility] Address: [address] [place] [address] Performed By: #### 5 8410-2 ####[facility] LABCLIA [id number] [place] [address] [place] WBC (Bld) [#/Vol] 9.13 10*3/uL Normal 3.70-11.00 [facility] Comment on above: Order Comment: Speci men Type: BLOOD SPECIMENOrdering Facility: [facility] Address: [address] [place] [address] Performed By: #### 5 8410-2 ####[facility] LABCLIA [id number] [place] [id number] [place] Magnesium SerPl-mCncon 07-09 Magnesium [Mass/Vol] 2.1 mg/dL Normal 1.7-2.3 [facility] Comment on above: Order Comment: Speci men Type: BLOOD SPECIMENOrdering Facility: [facility] Address: [address] [place] [address] Performed By: #### 2 4362-6, ####[facility] LABCLIA [id number] [place] [id number] [place] NUTRITIONon 07-09-2023 NUTRITION Normal [facility] Renal function 2000 panelon 07-09-2023 Albumin [Mass/Vol] 4.1 g/dL Normal 3.9-4.9 [facility] Comment on above: Order Comment: Speci men Type: BLOOD SPECIMENOrdering Facility: [facility] Address: [address] [place] [address] Performed By: #### 2 4362-6, ####[facility] LABIA [id number] [place] [id number] [place] Anion gap [Moles/Vol] 13 mmol/L Normal 9-18 [facility] Comment on above: Order Comment: Speci men Type: BLOOD SPECIMENOrdering Facility: [facility] Address: [address] [place], [place] [address] Performed By: #### 2 4362-6, ####[facility] LABIA [id number] [place] [id number] [place] Calcium [Mass/Vol] 9.2 mg/dL Normal 8.5-10.2 [facility] Comment on above: Order Comment: Speci men Type: BLOOD SPECIMENOrdering Facility: [facility] Address: [address] [place] [address] Performed By: #### 2 4362-6, ####[facility] LABCLIA [id number] [address] [address] [place] Chloride [Moles/Vol] 109 mmol/L High 97-105 [facility] Comment on above: Order Comment: Speci men Type: BLOOD SPECIMENOrdering Facility: [facility] Address: [address] [place] [address] Performed By: #### 2 4362-6, ####[facility] LABCLIA [id number] [place] [address] [place] CO2 [Moles/Vol] 19 mmol/L Low 22-30 [facility] Comment on above: Order Comment: Speci men Type: BLOOD SPECIMENOrdering Facility: [facility] Address: [address] [place] [address] Performed By: #### 2 4362-6, ####[facility] LABCLIA [id number] [place] [address] [place] Creatinine [Mass/Vol] 0.76 mg/dL Normal 0.58-0.96 [facility] Comment on above: Order Comment: Speci men Type: BLOOD SPECIMENOrdering Facility: [facility] Address: [address] [place] [address] Performed By: #### 2 4362-6, ####[facility] LABIA [id number] [place] [id number] [place] Creatinine and Glomerular filtration rate.predicted panel (S/P/Bld) 108 mL/min/1.73m??? Normal >=60 [facility] Comment on above: Order Comment: Speci men Type: BLOOD SPECIMENOrdering Facility: [facility] Address: [address] [place] [address] Result Comment: Albina mated Glomerular Filtration Rate [...] actual GFR. Performed By: #### 2 4362-6, ####[facility] LABCLIA [id number] [place] [address] [place] Glucose [Mass/Vol] 109 mg/dL High 74-99 [facility] Comment on above: Order Comment: Arnol osman Type: BLOOD SPECIMENOrdering Facility: [facility] Address: [address] [place] [address] Result Comment: The [employer] [place] [employer] (ADA) provides guidance for cutoff [...] Standards of Medical Care in Diabetes 2016, [employer] [place] [employer]. Diabetes Care. 2016.39(Suppl 1). Performed By: #### 2 436-, ####[facility] LABCLIA [id number] [place] [id number] [place] Phosphate [Mass/Vol] 2.8 mg/dL Normal 2.7-4.8 [facility] Comment on above: Order Comment: Arnol osman Type: BLOOD SPECIMENOrdering Facility: [facility] Address: [address] [place] [address] Performed By: #### 2 4362-, ####[facility] LABCLIA [id number] [address] [address] [place] Potassium [Moles/Vol] 4.4 mmol/L Normal 3.7-5.1 [facility] Comment on above: Order Comment: Speci men Type: BLOOD SPECIMENOrdering Facility: [facility] Address: [address] [place] [address] Performed By: #### 2 4362-6, ####[facility] LABCLIA [id number] [place] [address] [place] Sodium [Moles/Vol] 141 mmol/L Normal 136-144 [facility] Comment on above: Order Comment: Speci men Type: BLOOD SPECIMENOrdering Facility: [facility] Address: [address] [place] [address] Performed By: #### 2 4362-6, ####[facility] LABCLIA [id number] [place] [address] [place] Urea nitrogen [Mass/Vol] 4 mg/dL Low 7-21 [facility] Comment on above: Order Comment: Speci men Type: BLOOD SPECIMENOrdering Facility: [facility] Address: [address] [place] [address] Performed By: #### 2 4362-6, ####[facility] LABCLIA [id number] [place] [address] [place] URINALYSIS, DIPSTICK ONLYon 07-09-2023 Bilirubin Ql (U) Negative Normal Negative [facility] Comment on above: Order Comment: Speci men Type: URINE SPECIMENOrdering Facility: [facility] Address: [address] [place] [address] Performed By: #### U A ####[facility] LABCLIA [id number] [place] [address] [place] Clarity (Unsp spec) Clear Normal Clear [facility] Comment on above: Order Comment: Speci men Type: URINE SPECIMENOrdering Facility: [facility] Address: [address] [place] [address] Performed By: #### U A ####[facility] LABCLIA [id number] [place] [address] [place] Color (U) Yellow Normal Yellow [facility] Comment on above: Order Comment: Speci men Type: URINE SPECIMENOrdering Facility: [facility] Address: [address] [place] [address] Performed By: #### U A ####[facility] LABCLIA [id number] [place] [address] [place] Glucose Test strip (U) [Mass/Vol] Negative Normal Negative [facility] Comment on above: Order Comment: Speci men Type: URINE SPECIMENOrdering Facility: [facility] Address: [address] [place] [address] Performed By: #### U A ####[facility] LABCLIA [id number] [place] [address] [place] Hemoglobin Ql (U) Negative Normal Negative [facility] Comment on above: Order Comment: Speci men Type: URINE SPECIMENOrdering Facility: [facility] Address: [address] [place] [address] Performed By: #### U A ####[facility] LABCLIA [id number] [place] [address] [place] Ketones Ql (U) Negative Normal Negative [facility] Comment on above: Order Comment: Speci men Type: URINE SPECIMENOrdering Facility: [facility] Address: [address] [place] [address] Performed By: #### U A ####[facility] LABCLIA [id number] [place] [address] [place] Leukocyte esterase Test strip Ql (U) Negative Normal Negative [facility] Comment on above: Order Comment: Speci men Type: URINE SPECIMENOrdering Facility: [facility] Address: [address] [place] [address] Performed By: #### U A ####[facility] LABCLIA [id number] [place] [address] [place] Nitrite Ql (U) Negative Normal Negative [facility] Comment on above: Order Comment: Speci men Type: URINE SPECIMENOrdering Facility: [facility] Address: [address] [place] [address] Performed By: #### U A ####[facility] LABCLIA [id number] [place] [address] [place] pH (U) 6.0 [pH] Normal <8.5 [facility] Comment on above: Order Comment: Speci men Type: URINE SPECIMENOrdering Facility: [facility] Address: [address] [place] [address] Performed By: #### U A ####[facility] LABIA [id number] [place] [address] [place] Protein (U) [Mass/Vol] Negative Normal Negative [facility] Comment on above: Order Comment: Speci men Type: URINE SPECIMENOrdering Facility: [facility] Address: [address] [place] [address] Performed By: #### U A ####[facility] LABIA [id number] [place] [address] [place] Specific gravity (U) [Rel density] 1.018 Normal 1.005-1.030 [facility] Comment on above: Order Comment: Speci men Type: URINE SPECIMENOrdering Facility: [facility] Address: [address] [place] [address] Performed By: #### U A ####[facility] LABIA [id number] [place] [address] [place] Urobilinogen Ql (U) 1.0 EU/dL Normal 0.2-1.0 EU/dL [facility] Comment on above: Order Comment: Speci men Type: URINE SPECIMENOrdering Facility: [facility] Address: [address] [place], [place] [address] Performed By: #### U A ####[facility] LABIA [id number] [address] [address] [place] US DVT UPPER RTon 07-09-2023 US DVT UPPER RT Normal [facility] ALLIED HEALTHon 07-08-2023 ALLIED HEALTH Normal [facility] ALLIED HEALTH Normal [facility] CONSULT PROGon 07-08-2023 CONSULT PROG Normal [facility] Magnesium SerPl-mCncon 07-08 Magnesium [Mass/Vol] 1.8 mg/dL Normal 1.7-2.3 [facility] Comment on above: Order Comment: Speci men Type: BLOOD SPECIMENOrdering Facility: [facility] Address: [address] [place] [address] Performed By: #### 1 9123-9, 51095-7 ####[facility] [id number] [place] [id number] [place] Magnesium [Mass/Vol] 1.8 mg/dL Normal 1.7-2.3 [facility] Comment on above: Order Comment: Speci men Type: BLOOD SPECIMENOrdering Facility: [facility] Address: [address] [place] [address] Performed By: #### 1 9123-9, 09640-0 ####[facility] LABIA [id number] [address] [address] [place] NUTRITIONon 07-08-2023 NUTRITION Normal [facility] Renal function 2000 panelon 07-08-2023 Albumin [Mass/Vol] 4.1 g/dL Normal 3.9-4.9 [facility] Comment on above: Order Comment: Speci men Type: BLOOD SPECIMENOrdering Facility: [facility] Address: [address] [place] [address] Performed By: #### 1 9123-9, 10607-4 ####[facility] LABCLIA [id number] [address] [address] [place] Anion gap [Moles/Vol] 12 mmol/L Normal 9-18 [facility] Comment on above: Order Comment: Speci men Type: BLOOD SPECIMENOrdering Facility: [facility] Address: [address] [place] [address] Performed By: #### 1 9123-9, 72554-8 ####[facility] LABCLIA [id number] [place] [address] [place] Calcium [Mass/Vol] 8.9 mg/dL Normal 8.5-10.2 [facility] Comment on above: Order Comment: Speci men Type: BLOOD SPECIMENOrdering Facility: [facility] Address: [address] [place] [address] Performed By: #### 1 9123-9, ####[facility] LABIA [id number] [place] [address] [place] Chloride [Moles/Vol] 111 mmol/L High 97-105 [facility] Comment on above: Order Comment: Speci men Type: BLOOD SPECIMENOrdering Facility: [facility] Address: [address] [place] [address] Performed By: #### 1 9123-9, 99289-1 ####[facility] LABCLIA [id number] [place] [address] [place] CO2 [Moles/Vol] 20 mmol/L Low 22-30 [facility] Comment on above: Order Comment: Speci men Type: BLOOD SPECIMENOrdering Facility: [facility] Address: [address] [place] [address] Performed By: #### 1 9123-9, 64756-6 ####[facility] LABCLIA [id number] [place] [id number] [place] Creatinine [Mass/Vol] 0.86 mg/dL Normal 0.58-0.96 [facility] Comment on above: Order Comment: Arnol osman Type: BLOOD SPECIMENOrdering Facility: [facility] Address: [address] [place] [address] Performed By: #### 1 9123-9, 95375-0 ####[facility] LABCLIA [id number] [place] [address] [place] Creatinine and Glomerular filtration rate.predicted panel (S/P/Bld) 93 mL/min/1.73m??? Normal >=60 [facility] Comment on above: Order Comment: Arnol osman Type: BLOOD SPECIMENOrdering Facility: [facility] Address: [address] [place] [address] Result Comment: Albina mated Glomerular Filtration Rate [...] actual GFR. Performed By: #### 1 9123-9, 44212-1 ####[facility] LABCLIA [id number] [place] [address] [place] Glucose [Mass/Vol] 93 mg/dL Normal 74-99 [facility] Comment on above: Order Comment: Arnol osman Type: BLOOD SPECIMENOrdering Facility: [facility] Address: [address] [place] [address] Result Comment: The [employer] [place] [employer] (ADA) provides guidance for cutoff [...] Standards of Medical Care in Diabetes 2016, [employer] [place] [employer]. Diabetes Care. 2016.39(Suppl 1). Performed By: #### 1 9123-9, 89788-0 ####[facility] LABCLIA [id number] [address] [address] [place] Phosphate [Mass/Vol] 2.5 mg/dL Low 2.7-4.8 [facility] Comment on above: Order Comment: Speci men Type: BLOOD SPECIMENOrdering Facility: [facility] Address: [address] [place] [address] Performed By: #### 1 9123-9, 33856-8 ####[facility] LABCLIA [id number] [place] [address] [place] Potassium [Moles/Vol] 3.8 mmol/L Normal 3.7-5.1 [facility] Comment on above: Order Comment: Speci men Type: BLOOD SPECIMENOrdering Facility: [facility] Address: [address] [place] [address] Performed By: #### 1 9123-9, 74795-8 ####[facility] LABCLIA [id number] [place] [address] [place] Sodium [Moles/Vol] 143 mmol/L Normal 136-144 [facility] Comment on above: Order Comment: Speci men Type: BLOOD SPECIMENOrdering Facility: [facility] Address: [address] [place] [address] Performed By: #### 1 9123-9, 03878-9 ####[facility] LABCLIA [id number] [place] [id number] [place] Urea nitrogen [Mass/Vol] 4 mg/dL Low 7-21 [facility] Comment on above: Order Comment: Speci men Type: BLOOD SPECIMENOrdering Facility: [facility] Address: [address] [place] [address] Performed By: #### 1 9123-9, 30255-1 ####[facility] LABCLIA [id number] [place] [address] [place] Albumin [Mass/Vol] 4.3 g/dL Normal 3.9-4.9 [facility] Comment on above: Order Comment: Speci men Type: BLOOD SPECIMENOrdering Facility: [facility] Address: [address] [place] [address] Performed By: #### 1 9123-9, 02169-3 ####[facility] LABCLIA [id number] [place] [address] [place] Anion gap [Moles/Vol] 9 mmol/L Normal 9-18 [facility] Comment on above: Order Comment: Speci men Type: BLOOD SPECIMENOrdering Facility: [facility] Address: [address] [place] [address] Performed By: #### 1 9123-9, 24082-7 ####[facility] LABCLIA [id number] [place] [address] [place] Calcium [Mass/Vol] 9.0 mg/dL Normal 8.5-10.2 [facility] Comment on above: Order Comment: Speci men Type: BLOOD SPECIMENOrdering Facility: [facility] Address: [address] [place] [address] Performed By: #### 1 9123-9, 04545-3 ####[facility] LABCLIA [id number] [facility] [place] [address] [place] Chloride [Moles/Vol] 111 mmol/L High 97-105 [facility] Comment on above: Order Comment: Speci men Type: BLOOD SPECIMENOrdering Facility: [facility] Address: [address] [place] [address] Performed By: #### 1 9123-9, 05360-7 ####[facility] LABCLIA [id number] [place] [address] [place] CO2 [Moles/Vol] 21 mmol/L Low 22-30 [facility] Comment on above: Order Comment: Speci men Type: BLOOD SPECIMENOrdering Facility: [facility] Address: [address] [place] [address] Performed By: #### 1 9123-9, 32491-9 ####[facility] LABCLIA [id number] [place] [address] [place] Creatinine [Mass/Vol] 0.79 mg/dL Normal 0.58-0.96 [facility] Comment on above: Order Comment: Speci men Type: BLOOD SPECIMENOrdering Facility: [facility] Address: [address] [place] [address] Performed By: #### 1 9123-9, 00645-1 ####[facility] LABIA [id number] [place] [address] [place] Creatinine and Glomerular filtration rate.predicted panel (S/P/Bld) 103 mL/min/1.73m??? Normal >=60 [facility] Comment on above: Order Comment: Speci men Type: BLOOD SPECIMENOrdering Facility: [facility] Address: [address] [place] [address] Result Comment: Albina mated Glomerular Filtration Rate [...] actual GFR. Performed By: #### 1 9123-9, 80481-8 ####[facility] LABCLIA [id number] [place] [address] [place] Glucose [Mass/Vol] 103 mg/dL High 74-99 [facility] Comment on above: Order Comment: Speci men Type: BLOOD SPECIMENOrdering Facility: [facility] Address: [address] [place] [address] Result Comment: The [employer] [place] [employer] (ADA) provides guidance for cutoff [...] Standards of Medical Care in Diabetes 2016, [employer] [place] [employer]. Diabetes Care. 2016.39(Suppl 1). Performed By: #### 1 9123-9, 15970-1 ####[facility] LABCLIA [id number] [place] [address] [place] Phosphate [Mass/Vol] 2.8 mg/dL Normal 2.7-4.8 [facility] Comment on above: Order Comment: Speci men Type: BLOOD SPECIMENOrdering Facility: [facility] Address: [address] [place] [address] Performed By: #### 1 9123-9, 89548-3 ####[facility] LABCLIA [id number] [place] [address] [place] Potassium [Moles/Vol] 3.6 mmol/L Low 3.7-5.1 [facility] Comment on above: Order Comment: Speci men Type: BLOOD SPECIMENOrdering Facility: [facility] Address: [address] [place] [address] Performed By: #### 1 9123-9, 98273-7 ####[facility] LABCLIA [id number] [place] [id number] [place] Sodium [Moles/Vol] 141 mmol/L Normal 136-144 [facility] Comment on above: Order Comment: Speci men Type: BLOOD SPECIMENOrdering Facility: [facility] Address: [address] [place] [address] Performed By: #### 1 9123-9, 26457-4 ####[facility] LABCLIA [id number] [place] [address] [place] Urea nitrogen [Mass/Vol] 4 mg/dL Low 7-21 [facility] Comment on above: Order Comment: Speci men Type: BLOOD SPECIMENOrdering Facility: [facility] Address: [address] [place] [address] Performed By: #### 1 9123-9, 89445-3 ####[facility] LABIA [id number] [place] [address] [place] URINALYSIS, DIPSTICK ONLYon 07-08-2023 Bilirubin Ql (U) Negative Normal Negative [facility] Comment on above: Order Comment: Speci men Type: URINE SPECIMENOrdering Facility: [facility] Address: [address] [place] [address] Performed By: #### U A ####[facility] LABIA [id number] [place] [address] [place] Clarity (Unsp spec) Clear Normal Clear [facility] Comment on above: Order Comment: Speci men Type: URINE SPECIMENOrdering Facility: [facility] Address: [address] [place] [address] Performed By: #### U A ####[facility] LABCLIA [id number] [place] [address] [place] Color (U) Yellow Normal Yellow [facility] Comment on above: Order Comment: Speci men Type: URINE SPECIMENOrdering Facility: [facility] Address: [address] [place] [address] Performed By: #### U A ####[facility] LABIA [id number] [place] [address] [place] Glucose Test strip (U) [Mass/Vol] Negative Normal Negative [facility] Comment on above: Order Comment: Speci men Type: URINE SPECIMENOrdering Facility: [facility] Address: [address] [place] [address] Performed By: #### U A ####[facility] LABCLIA [id number] [place] [address] [place] Hemoglobin Ql (U) Negative Normal Negative [facility] Comment on above: Order Comment: Speci men Type: URINE SPECIMENOrdering Facility: [facility] Address: [address] [place] [address] Performed By: #### U A ####[facility] LABCLIA [id number] [place] [address] [place] Ketones Ql (U) Negative Normal Negative [facility] Comment on above: Order Comment: Speci men Type: URINE SPECIMENOrdering Facility: [facility] Address: [address] [place] [address] Performed By: #### U A ####[facility] LABCLIA [id number] [address] [place] [facility] Leukocyte esterase Test strip Ql (U) Trace Abnormal Negative [facility] Comment on above: Order Comment: Speci men Type: URINE SPECIMENOrdering Facility: [facility] Address: [address] [place] [address] Performed By: #### U A ####[facility] LABCLIA [id number] [place] [address] [place] Nitrite Ql (U) Negative Normal Negative [facility] Comment on above: Order Comment: Speci men Type: URINE SPECIMENOrdering Facility: [facility] Address: [address] [place] [address] Performed By: #### U A ####[facility] LABCLIA [id number] [place] [address] [place] pH (U) 6.0 [pH] Normal <8.5 [facility] Comment on above: Order Comment: Speci men Type: URINE SPECIMENOrdering Facility: [facility] Address: [address] [place] [address] Performed By: #### U A ####[facility] LABIA [id number] [place] [address] [place] Protein (U) [Mass/Vol] Negative Normal Negative Cl [facility] Comment on above: Order Comment: Speci men Type: URINE SPECIMENOrdering Facility: [facility] Address: [address] [place] [address] Performed By: #### U A ####[facility] LABIA [id number] [place] [address] [place] Specific gravity (U) [Rel density] 1.009 Normal 1.005-1.030 [facility] Comment on above: Order Comment: Speci men Type: URINE SPECIMENOrdering Facility: [facility] Address: [address] [place] [address] Performed By: #### U A ####[facility] LABIA [id number] [place] [address] [place] Urobilinogen Ql (U) 0.2 EU/dL Normal 0.2-1.0 EU/dL Cl [facility] [place] Comment on above: Order Comment: Speci men Type: URINE SPECIMENOrdering Facility: [facility] Address: [address] [place] [address] Performed By: #### U A ####[facility] LABIA [id number] [place] [address] [place] CASE MGT INIT ASSESon 2023 CASE MGT INIT ASSES Normal [facility] CONSULT PROGon 07-07-2023 CONSULT PROG Normal [facility] Magnesium SerPl-mCncon 07-07 Magnesium [Mass/Vol] 1.8 mg/dL Normal 1.7-2.3 [facility] Comment on above: Order Comment: Speci men Type: BLOOD SPECIMENOrdering Facility: [facility] Address: [address] [place] [address] Performed By: #### 2 4362-6, ####[facility] LABCLIA [id number] [facility] [place] [id number] [place] NUTRITIONon 07-07-2023 NUTRITION Normal [facility] Renal function 2000 panelon 07-07-2023 Albumin [Mass/Vol] 4.3 g/dL Normal 3.9-4.9 [facility] Comment on above: Order Comment: Speci men Type: BLOOD SPECIMENOrdering Facility: [facility] Address: [address] [place] [address] Performed By: #### 2 4362-6, ####[facility] LABCLIA [id number] [facility] [place] [address] [place] Anion gap [Moles/Vol] 14 mmol/L Normal 9-18 [facility] Comment on above: Order Comment: Speci men Type: BLOOD SPECIMENOrdering Facility: [facility] Address: [address] [place] [address] Performed By: #### 2 4362-6, ####[facility] LABCLIA [id number] [facility] [place] [address] [place] Calcium [Mass/Vol] 9.3 mg/dL Normal 8.5-10.2 [facility] Comment on above: Order Comment: Speci men Type: BLOOD SPECIMENOrdering Facility: [facility] Address: [address] [place] [address] Performed By: #### 2 4362-6, ####[facility] LABCLIA [id number] [facility] [place] [id number] [place] Chloride [Moles/Vol] 105 mmol/L Normal 97-105 [facility] Comment on above: Order Comment: Speci men Type: BLOOD SPECIMENOrdering Facility: [facility] Address: [address] [place] [address] Performed By: #### 2 4362-6, ####[facility] LABIA [id number] [place] [id number] [place] CO2 [Moles/Vol] 19 mmol/L Low 22-30 [facility] Comment on above: Order Comment: Speci men Type: BLOOD SPECIMENOrdering Facility: [facility] Address: [address] [place] [address] Performed By: #### 2 4362-6, ####[facility] LABIA [id number] [place] [address] [place] Creatinine [Mass/Vol] 0.81 mg/dL Normal 0.58-0.96 [facility] Comment on above: Order Comment: Speci men Type: BLOOD SPECIMENOrdering Facility: [facility] Address: [address] [place] [address] Performed By: #### 2 4362-6, ####[facility] LABIA [id number] [place] [address] [place] Creatinine and Glomerular filtration rate.predicted panel (S/P/Bld) 100 mL/min/1.73m??? Normal >=60 [facility] Comment on above: Order Comment: Speci men Type: BLOOD SPECIMENOrdering Facility: [facility] Address: [address] [place] [address] Result Comment: Albina mated Glomerular Filtration Rate [...] actual GFR. Performed By: #### 2 4362-6, ####[facility] LABCLIA [id number] [address] [address] [place] Glucose [Mass/Vol] 88 mg/dL Normal 74-99 [facility] Comment on above: Order Comment: Speci men Type: BLOOD SPECIMENOrdering Facility: [facility] Address: [address] [place] [address] Result Comment: The [employer] [place] [employer] (ADA) provides guidance for cutoff [...] Standards of Medical Care in Diabetes 2016, [employer] [place] [employer]. Diabetes Care. 2016.39(Suppl 1). Performed By: #### 2 4362-6, ####[facility] LABIA [id number] [place] [address] [place] Phosphate [Mass/Vol] 3.3 mg/dL Normal 2.7-4.8 [facility] Comment on above: Order Comment: Speci men Type: BLOOD SPECIMENOrdering Facility: [facility] Address: [address] [place] [address] Performed By: #### 2 4362-6, ####[facility] LABIA [id number] [place] [id number] [place] Potassium [Moles/Vol] 4.2 mmol/L Normal 3.7-5.1 [facility] Comment on above: Order Comment: Speci men Type: BLOOD SPECIMENOrdering Facility: [facility] Address: [address] [place] [address] Performed By: #### 2 4362-6, ####[facility] LABCLIA [id number] [place] [address] [place] Sodium [Moles/Vol] 138 mmol/L Normal 136-144 [facility] Comment on above: Order Comment: Speci men Type: BLOOD SPECIMENOrdering Facility: [facility] Address: [address] [place] [address] Performed By: #### 2 4362-6, ####[facility] LABIA [id number] [place] [address] [place] Urea nitrogen [Mass/Vol] 8 mg/dL Normal 7-21 [facility] Comment on above: Order Comment: Speci men Type: BLOOD SPECIMENOrdering Facility: [facility] Address: [address] [place] [address] Performed By: #### 2 4362-6, ####[facility] LABIA [id number] [place] [address] [place] URINALYSIS, DIPSTICK ONLYon 07-07-2023 Bilirubin Ql (U) Negative Normal Negative [facility] Comment on above: Order Comment: Speci men Type: URINE SPECIMENOrdering Facility: [facility] Address: [address] [place] [address] Performed By: #### U A ####[facility] LABIA [id number] [place] [address] [place] Clarity (Unsp spec) Clear Normal Clear [facility] Comment on above: Order Comment: Speci men Type: URINE SPECIMENOrdering Facility: [facility] Address: [address] [place] [address] Performed By: #### U A ####[facility] LABIA [id number] [place] [address] [place] Color (U) Yellow Normal Yellow [facility] Comment on above: Order Comment: Speci men Type: URINE SPECIMENOrdering Facility: [facility] Address: [address] [place] [address] Performed By: #### U A ####[facility] LABCLIA [id number] [place] [address] [place] Glucose Test strip (U) [Mass/Vol] Negative Normal Negative [facility] Comment on above: Order Comment: Speci men Type: URINE SPECIMENOrdering Facility: [facility] Address: [address] [place] [address] Performed By: #### U A ####[facility] LABCLIA [id number] [place] [address] [place] Hemoglobin Ql (U) Negative Normal Negative [facility] Comment on above: Order Comment: Speci men Type: URINE SPECIMENOrdering Facility: [facility] Address: [address] [place] [address] Performed By: #### U A ####[facility] LABCLIA [id number] [place] [address] [place] Ketones Ql (U) Negative Normal Negative [facility] Comment on above: Order Comment: Speci men Type: URINE SPECIMENOrdering Facility: [facility] Address: [address] [place] [address] Performed By: #### U A ####[facility] LABCLIA [id number] [place] [address] [place] Leukocyte esterase Test strip Ql (U) Trace Abnormal Negative [facility] Comment on above: Order Comment: Speci men Type: URINE SPECIMENOrdering Facility: [facility] Address: [address] [place] [address] Performed By: #### U A ####[facility] LABCLIA [id number] [place] [address] [place] Nitrite Ql (U) Negative Normal Negative [facility] Comment on above: Order Comment: Speci men Type: URINE SPECIMENOrdering Facility: [facility] Address: [address] [place] [address] Performed By: #### U A ####[facility] LABIA [id number] [place] [address] [place] pH (U) 6.5 [pH] Normal <8.5 [facility] Comment on above: Order Comment: Speci men Type: URINE SPECIMENOrdering Facility: [facility] Address: [address] [place] [address] Performed By: #### U A ####[facility] LABIA [id number] [place] [address] [place] Protein (U) [Mass/Vol] Negative Normal Negative [facility] Comment on above: Order Comment: Speci men Type: URINE SPECIMENOrdering Facility: [facility] Address: [address] [place] [address] Performed By: #### U A ####[facility] LABIA [id number] [place] [address] [place] Specific gravity (U) [Rel density] 1.005 Normal 1.005-1.030 [facility] Comment on above: Order Comment: Speci men Type: URINE SPECIMENOrdering Facility: [facility] Address: [address] [place] [address] Performed By: #### U A ####[facility] LABIA [id number] [place] [address] [place] Urobilinogen Ql (U) 0.2 EU/dL Normal 0.2-1.0 EU/dL [facility] Comment on above: Order Comment: Speci men Type: URINE SPECIMENOrdering Facility: [facility] Address: [address] [place] [address] Performed By: #### U A ####[facility] LABIA [id number] [place] [address] [place] XR ABDOMEN 1V SUPINEon 07-07 XR ABDOMEN 1V SUPINE Normal [facility] Magnesium SerPl-mCncon 07-06 Magnesium [Mass/Vol] 1.8 mg/dL Normal 1.7-2.3 [facility] Comment on above: Order Comment: Speci men Type: BLOOD SPECIMENOrdering Facility: [facility] Address: [address] [place] [address] Performed By: #### 2 4362-6, ####[facility] LABCLIA [id number] [place] [address] [place] Renal function 2000 panelon 07-06-2023 Albumin [Mass/Vol] 4.1 g/dL Normal 3.9-4.9 [facility] Comment on above: Order Comment: Speci men Type: BLOOD SPECIMENOrdering Facility: [facility] Address: [address] [place] [address] Performed By: #### 2 4362-6, ####[facility] LABCLIA [id number] [place] [address] [place] Anion gap [Moles/Vol] 16 mmol/L Normal 9-18 [facility] Comment on above: Order Comment: Speci men Type: BLOOD SPECIMENOrdering Facility: [facility] Address: [address] [place] [address] Performed By: #### 2 4362-6, ####[facility] LABCLIA [id number] [place] [id number] [place] Calcium [Mass/Vol] 9.1 mg/dL Normal 8.5-10.2 [facility] Comment on above: Order Comment: Speci men Type: BLOOD SPECIMENOrdering Facility: [facility] Address: [address] [place] [address] Performed By: #### 2 4362-6, ####[facility] LABCLIA [id number] [place] [address] [place] Chloride [Moles/Vol] 106 mmol/L High 97-105 [facility] Comment on above: Order Comment: Speci men Type: BLOOD SPECIMENOrdering Facility: [facility] Address: [address] [place] [address] Performed By: #### 2 4362-6, ####[facility] LABIA [id number] [place] [address] [place] CO2 [Moles/Vol] 18 mmol/L Low 22-30 [facility] Comment on above: Order Comment: Speci men Type: BLOOD SPECIMENOrdering Facility: [facility] Address: [address] [place] [address] Performed By: #### 2 4362-6, ####[facility] [id number] [place] [address] [place] Creatinine [Mass/Vol] 0.85 mg/dL Normal 0.58-0.96 [facility] Comment on above: Order Comment: Speci men Type: BLOOD SPECIMENOrdering Facility: [facility] Address: [address] [place] [address] Performed By: #### 2 4362-6, ####[facility] [id number] [place] [address] [place] Creatinine and Glomerular filtration rate.predicted panel (S/P/Bld) 95 mL/min/1.73m??? Normal >=60 [facility] Comment on above: Order Comment: Speci men Type: BLOOD SPECIMENOrdering Facility: [facility] Address: [address] [place] [address] Result Comment: Albina mated Glomerular Filtration Rate [...] actual GFR. Performed By: #### 2 4362-6, ####[facility] LABCLIA [id number] [address] [address] [place] Glucose [Mass/Vol] 74 mg/dL Normal 74-99 [facility] Comment on above: Order Comment: Arnol osman Type: BLOOD SPECIMENOrdering Facility: [facility] Address: [address] [place] [address] Result Comment: The [employer] [place] [employer] (ADA) provides guidance for cutoff [...] Standards of Medical Care in Diabetes 2016, [employer] [place] [employer]. Diabetes Care. 2016.39(Suppl 1). Performed By: #### 2 4362-6, ####[facility] LABCLIA [id number] [address] [address] [place] Phosphate [Mass/Vol] 3.6 mg/dL Normal 2.7-4.8 [facility] Comment on above: Order Comment: Arnol osman Type: BLOOD SPECIMENOrdering Facility: [facility] Address: [address] [place] [address] Performed By: #### 2 4362-6, ####[facility] LABCLIA [id number] [address] [address] [place] Potassium [Moles/Vol] 4.1 mmol/L Normal 3.7-5.1 [facility] Comment on above: Order Comment: Speci men Type: BLOOD SPECIMENOrdering Facility: [facility] Address: [address] [place] [address] Performed By: #### 2 4362-6, ####[facility] LABCLIA [id number] [place] [id number] [place] Sodium [Moles/Vol] 140 mmol/L Normal 136-144 [facility] Comment on above: Order Comment: Speci men Type: BLOOD SPECIMENOrdering Facility: [facility] Address: [address] [place] [address] Performed By: #### 2 4362-6, ####[facility] LABIA [id number] [place] [address] [place] Urea nitrogen [Mass/Vol] 13 mg/dL Normal 7-21 [facility] Comment on above: Order Comment: Speci men Type: BLOOD SPECIMENOrdering Facility: [facility] Address: [address] [place] [address] Performed By: #### 2 4362-6, ####[facility] LABCLIA [id number] [place] [address] [place] URINALYSIS, DIPSTICK ONLYon 07-06-2023 Bilirubin Ql (U) Negative Normal Negative [facility] [facility] Comment on above: Order Comment: Speci men Type: URINE SPECIMENOrdering Facility: [facility] Address: [address] [place] [address] Performed By: #### U A ####[facility] LABCLIA [id number] [place] [address] [place] Clarity (Unsp spec) Clear Normal Clear [facility] Comment on above: Order Comment: Speci men Type: URINE SPECIMENOrdering Facility: [facility] Address: [address] [place] [address] Performed By: #### U A ####[facility] LABCLIA [id number] [place] [address] [place] Color (U) Dark Yellow Abnormal Yellow [facility] Comment on above: Order Comment: Speci men Type: URINE SPECIMENOrdering Facility: [facility] Address: [address] [place] [address] Performed By: #### U A ####[facility] LABCLIA [id number] [place] [address] [place] Glucose Test strip (U) [Mass/Vol] Negative Normal Negative [facility] Comment on above: Order Comment: Speci men Type: URINE SPECIMENOrdering Facility: [facility] Address: [address] [place] [address] Performed By: #### U A ####[facility] LABCLIA [id number] [place] [address] [place] Hemoglobin Ql (U) Negative Normal Negative [facility] Comment on above: Order Comment: Speci men Type: URINE SPECIMENOrdering Facility: [facility] Address: [address] [place] [address] Performed By: #### U A ####[facility] LABCLIA [id number] [address] [place] Ketones Ql (U) 4+ Abnormal Negative [facility] Comment on above: Order Comment: Speci men Type: URINE SPECIMENOrdering Facility: [facility] Address: [address] [place] [address] Performed By: #### U A ####[facility] LABCLIA [id number] [address] [place] Leukocyte esterase Test strip Ql (U) Negative Normal Negative [facility] Comment on above: Order Comment: Speci men Type: URINE SPECIMENOrdering Facility: [facility] Address: [address] [place] [address] Performed By: #### U A ####[facility] LABCLIA [id number] [place] [address] [place] Nitrite Ql (U) Negative Normal Negative [facility] Comment on above: Order Comment: Speci men Type: URINE SPECIMENOrdering Facility: [facility] Address: [address] [place] [address] Performed By: #### U A ####[facility] LABCLIA [id number] [place] [address] [place] pH (U) 5.5 [pH] Normal <8.5 [facility] Comment on above: Order Comment: Speci men Type: URINE SPECIMENOrdering Facility: [facility] Address: [address] [place] [address] Performed By: #### U A ####[facility] LABCLIA [id number] [place] [address] [place] Protein (U) [Mass/Vol] 1+ Abnormal Negative [facility] Comment on above: Order Comment: Speci men Type: URINE SPECIMENOrdering Facility: [facility] Address: [address] [place] [address] Performed By: #### U A ####[facility] LABIA [id number] [place] [address] [place] Specific gravity (U) [Rel density] 1.043 High 1.005-1.030 [facility] Comment on above: Order Comment: Speci men Type: URINE SPECIMENOrdering Facility: [facility] Address: [address] [place] [address] Performed By: #### U A ####[facility] LABIA [id number] [place] [address] [place] Urobilinogen Ql (U) 1.0 EU/dL Normal 0.2-1.0 EU/dL [facility] Comment on above: Order Comment: Speci men Type: URINE SPECIMENOrdering Facility: [facility] Address: [address] [place] [address] Performed By: #### U A ####[facility] LABCLIA [id number] [place] [address] [place] CBC W Auto Differential pane l (Bld)on 07-05-2023 Basophils (Bld) [#/Vol] 0.07 10*3/uL Normal <0.11 [facility] Comment on above: Order Comment: Speci men Type: BLOOD SPECIMENOrdering Facility: [facility] Address: [address] [place] [address] Performed By: #### 5 7021-8, 4536-7 ####[facility] LABCLIA [id number] [place] [address] [place] Basophils/100 WBC (Bld) 0.7 % Normal [facility] Comment on above: Order Comment: Speci men Type: BLOOD SPECIMENOrdering Facility: [facility] Address: [address] [place] [address] Performed By: #### 5 7021-8, 4536-7 ####[facility] LABCLIA [id number] [place] [address] [place] Differential cell count method Nom (Bld) Auto Normal [facility] Comment on above: Order Comment: Speci men Type: BLOOD SPECIMENOrdering Facility: [facility] Address: [address] [place] [address] Performed By: #### 5 7021-8, 4536-7 ####[facility] LABCLIA [id number] [place] [address] [place] Eosinophils (Bld) [#/Vol] 0.14 10*3/uL Normal <0.46 [facility] Comment on above: Order Comment: Speci men Type: BLOOD SPECIMENOrdering Facility: [facility] Address: [address] [place] [address] Performed By: #### 5 7021-8, 7-7 ####[facility] LABCLIA [id number] [place] [address] [place] Eosinophils/100 WBC (Bld) 1.5 % Normal [facility] Comment on above: Order Comment: Speci men Type: BLOOD SPECIMENOrdering Facility: [facility] Address: [address] [place] [address] Performed By: #### 5 7021-8, 4537-7 ####[facility] LABCLIA [id number] [place] [address] [place] Erythrocyte distribution width (RBC) [Ratio] 11.9 % Normal 11.5-15.0 [facility] Comment on above: Order Comment: Speci men Type: BLOOD SPECIMENOrdering Facility: [facility] Address: [address] [place] [address] Performed By: #### 5 7021-8, 4537-7 ####[facility] LABIA [id number] [place] [address] [place] Hematocrit (Bld) [Volume fraction] 42.4 % Normal 36.0-46.0 [facility] Comment on above: Order Comment: Speci men Type: BLOOD SPECIMENOrdering Facility: [facility] Address: [address] [place] [address] Performed By: #### 5 7021-8, 4537-7 ####[facility] LABIA [id number] [place] [address] [place] Hemoglobin (Bld) [Mass/Vol] 14.8 g/dL Normal 11.5-15.5 [facility] Comment on above: Order Comment: Speci men Type: BLOOD SPECIMENOrdering Facility: [facility] Address: [address] [place] [address] Performed By: #### 5 7021-8, 4537-7 ####[facility] LABCLIA [id number] [place] [address] [place] Immature granulocytes (Bld) [#/Vol] 0.03 10*3/uL Normal <0.10 [facility] Comment on above: Order Comment: Speci men Type: BLOOD SPECIMENOrdering Facility: [facility] Address: [address] [place] [address] Performed By: #### 5 7021-8, 4536-7 ####[facility] LABCLIA [id number] [place] [address] [place] Immature granulocytes/100 WBC (Bld) 0.3 % Normal [facility] Comment on above: Order Comment: Speci men Type: BLOOD SPECIMENOrdering Facility: [facility] Address: [address] [place] [address] Performed By: #### 5 7021-8, 4536-7 ####[facility] LABCLIA [id number] [place] [address] [place] Lymphocytes (Bld) [#/Vol] 2.10 10*3/uL Normal 1.00-4.00 [facility] Comment on above: Order Comment: Speci men Type: BLOOD SPECIMENOrdering Facility: [facility] Address: [address] [place] [address] Performed By: #### 5 7021-8, 4536-7 ####[facility] LABCLIA [id number] [place] [address] [place] Lymphocytes/100 WBC (Bld) 22.1 % Normal [facility] Comment on above: Order Comment: Speci men Type: BLOOD SPECIMENOrdering Facility: [facility] Address: [address] [place] [address] Performed By: #### 5 7021-8, 4536-7 ####[facility] LABCLIA [id number] [place] [address] [place] MCH (RBC) [Entitic mass] 31.9 pg Normal 26.0-34.0 [facility] Comment on above: Order Comment: Speci men Type: BLOOD SPECIMENOrdering Facility: [facility] Address: [address] [place] [address] Performed By: #### 5 7021-8, 4536-7 ####[facility] LABCLIA [id number] [place] [address] [place] MCHC (RBC) [Mass/Vol] 34.9 g/dL Normal 30.5-36.0 [facility] Comment on above: Order Comment: Speci men Type: BLOOD SPECIMENOrdering Facility: [facility] Address: [address] [place] [address] Performed By: #### 5 7021-8, 4536-7 ####[facility] LABIA [id number] [place] [address] [place] MCV (RBC) [Entitic vol] 91.4 fL Normal 80.0-100.0 [facility] Comment on above: Order Comment: Speci men Type: BLOOD SPECIMENOrdering Facility: [facility] Address: [address] [place] [address] Performed By: #### 5 7021-8, 4536-7 ####[facility] LABIA [id number] [place] [address] [place] Monocytes (Bld) [#/Vol] 0.45 10*3/uL Normal <0.87 [facility] Comment on above: Order Comment: Speci men Type: BLOOD SPECIMENOrdering Facility: [facility] Address: [address] [place] [address] Performed By: #### 5 7021-8, 4536-7 ####[facility] LABIA [id number] [place] [address] [place] Monocytes/100 WBC (Bld) 4.7 % Normal [facility] Comment on above: Order Comment: Speci men Type: BLOOD SPECIMENOrdering Facility: [facility] Address: [address] [place] [address] Performed By: #### 5 7021-8, 4536-7 ####[facility] LABCLIA [id number] [place] [address] [place] Neutrophils (Bld) [#/Vol] 6.70 10*3/uL Normal 1.45-7.50 [facility] Comment on above: Order Comment: Speci men Type: BLOOD SPECIMENOrdering Facility: [facility] Address: [address] [place] [address] Performed By: #### 5 7021-8, 4536-7 ####[facility] LABCLIA [id number] [place] [address] [place] Neutrophils/100 WBC (Bld) 70.7 % Normal [facility] Comment on above: Order Comment: Speci men Type: BLOOD SPECIMENOrdering Facility: [facility] Address: [address] [place] [address] Performed By: #### 5 7021-8, 7 ####[facility] LABCLIA [id number] [place] [address] [place] Nucleated RBC (Bld) [#/Vol] 10*3/uL Normal <0.01 [facility] Comment on above: Order Comment: Speci men Type: BLOOD SPECIMENOrdering Facility: [facility] Address: [address] [place] [address] Performed By: #### 5 7021-8, 7 ####[facility] LABCLIA [id number] [place] [address] [place] Nucleated RBC/100 WBC (Bld) [Ratio] 0.0 /100 WBC Normal [facility] Comment on above: Order Comment: Speci men Type: BLOOD SPECIMENOrdering Facility: [facility] Address: [address] [place] [address] Performed By: #### 5 7021-8, 7-7 ####[facility] LABCLIA [id number] [place] [address] [place] Platelet mean volume (Bld) [Entitic vol] 11.7 fL Normal 9.0-12.7 [facility] Comment on above: Order Comment: Speci men Type: BLOOD SPECIMENOrdering Facility: [facility] Address: [address] [place] [address] Performed By: #### 5 7021-8, 4537-7 ####[facility] LABCLIA [id number] [place] [address] [place] Platelets (Bld) [#/Vol] 214 10*3/uL Normal 150-400 [facility] Comment on above: Order Comment: Speci men Type: BLOOD SPECIMENOrdering Facility: [facility] Address: [address] [place] [address] Performed By: #### 5 7021-8, 4537-7 ####[facility] LABCLIA [id number] [place] [address] [place] RBC (Bld) [#/Vol] 4.64 10*6/uL Normal 3.90-5.20 [facility] Comment on above: Order Comment: Speci men Type: BLOOD SPECIMENOrdering Facility: [facility] Address: [address] [place] [address] Performed By: #### 5 7021-8, 4537-7 ####[facility] LABCLIA [id number] [place] [address] [place] WBC (Bld) [#/Vol] 9.49 10*3/uL Normal 3.70-11.00 [facility] Comment on above: Order Comment: Speci men Type: BLOOD SPECIMENOrdering Facility: [facility] Address: [address] [place] [address] Performed By: #### 5 7021-8, 4537-7 ####[facility] LABCLIA [id number] [place] [address] [place] CONSULTon 07-05-2023 CONSULT Normal [facility] CT ABD/PEL W IVCONon 024 CT ABD/PEL W IVCON Normal [facility] Comprehensive metabolic 2000 panelon 07-05-2023 Albumin [Mass/Vol] 4.4 g/dL Normal 3.9-4.9 [facility] Comment on above: Order Comment: Speci men Type: BLOOD SPECIMENOrdering Facility: [facility] Address: [address] [place] [address] Performed By: #### 1 9123-9, 3016-3, 07251-3, 2777-1 ####[facility] LABCLIA [id number] [place] [address] [place] ALP [Catalytic activity/Vol] 43 U/L Normal 34-123 [facility] Comment on above: Order Comment: Speci men Type: BLOOD SPECIMENOrdering Facility: [facility] Address: [address] [place] [address] Performed By: #### 1 9123-9, 3016-3, 25098-3, 2777-1 ####[facility] LABIA [id number] [place] [address] [place] ALT [Catalytic activity/Vol] 10 U/L Normal 7-38 [facility] Comment on above: Order Comment: Speci men Type: BLOOD SPECIMENOrdering Facility: [facility] Address: [address] [place] [address] Performed By: #### 1 9123-9, 3016-3, 71526-9, 2777-1 ####[facility] LABIA [id number] [place] [id number] [place] Anion gap [Moles/Vol] 10 mmol/L Normal 9-18 [facility] Comment on above: Order Comment: Speci men Type: BLOOD SPECIMENOrdering Facility: [facility] Address: [address] [place] [address] Performed By: #### 1 9123-9, 3016-3, 69345-1, 2777- ####[facility] LABCLIA [id number] [place] [id number] [place] AST [Catalytic activity/Vol] 11 U/L Low 13-35 [facility] Comment on above: Order Comment: Speci men Type: BLOOD SPECIMENOrdering Facility: [facility] Address: [address] [place] [address] Performed By: #### 1 9123-9, 6-3, 30645-4, 277- ####[facility] LABIA [id number] [place] [address] [place] Bilirubin [Mass/Vol] 0.8 mg/dL Normal 0.2-1.3 [facility] Comment on above: Order Comment: Speci men Type: BLOOD SPECIMENOrdering Facility: [facility] Address: [address] [place] [address] Performed By: #### 1 9123-9, 3, 46754-0, 277- ####[facility] LABIA [id number] [place] [address] [place] Calcium [Mass/Vol] 9.5 mg/dL Normal 8.5-10.2 [facility] Comment on above: Order Comment: Speci men Type: BLOOD SPECIMENOrdering Facility: [facility] Address: [address] [place] [address] Performed By: #### 1 9123-9, 3015-3, 98094-4, 277- ####[facility] LABIA [id number] [place] [address] [place] Chloride [Moles/Vol] 109 mmol/L High 97-105 [facility] Comment on above: Order Comment: Speci men Type: BLOOD SPECIMENOrdering Facility: [facility] Address: [address] [place] [address] Performed By: #### 1 9123-9, 6-3, 89354-7, 2776- ####[facility] LABCLIA [id number] [place] [id number] [place] CO2 [Moles/Vol] 21 mmol/L Low 22-30 [facility] Comment on above: Order Comment: Speci men Type: BLOOD SPECIMENOrdering Facility: [facility] Address: [address] [place] [address] Performed By: #### 1 9123-9, 6-3, 28469-9, 2776- ####[facility] LABCLIA [id number] [place] [address] [place] Creatinine [Mass/Vol] 0.85 mg/dL Normal 0.58-0.96 [facility] Comment on above: Order Comment: Speci men Type: BLOOD SPECIMENOrdering Facility: [facility] Address: [address] [place] [address] Performed By: #### 1 9123-9, 3015-3, 92927-7, 2776-05 ####[facility] LABIA [id number] [place] [address] [place] Creatinine and Glomerular filtration rate.predicted panel (S/P/Bld) 95 mL/min/1.73m??? Normal >=60 [facility] Comment on above: Order Comment: Speci men Type: BLOOD SPECIMENOrdering Facility: [facility] Address: [address] [place] [address] Result Comment: Albina mated Glomerular Filtration Rate [...] actual GFR. Performed By: #### 1 9123-9, 6-3, 13397-2, 2776-1 ####[facility] LABCLIA [id number] [address] [address] [place] Glucose [Mass/Vol] 83 mg/dL Normal 74-99 [facility] Comment on above: Order Comment: Speci men Type: BLOOD SPECIMENOrdering Facility: [facility] Address: [address] [place] [address] Result Comment: The [employer] [place] [employer] (ADA) provides guidance for cutoff [...] Standards of Medical Care in Diabetes 2016, [employer] [place] [employer]. Diabetes Care. 2016.39(Suppl 1). Performed By: #### 1 9123-9, 3016-3, 80937-8, 2777-1 ####[facility] LABIA [id number] [place] [address] [place] Potassium [Moles/Vol] 4.4 mmol/L Normal 3.7-5.1 [facility] Comment on above: Order Comment: Speci men Type: BLOOD SPECIMENOrdering Facility: [facility] Address: [address] [place] [address] Performed By: #### 1 9123-9, 3016-3, 22829-4, 2777-1 ####[facility] LABIA [id number] [place] [address] [place] Protein [Mass/Vol] 6.8 g/dL Normal 6.3-8.0 [facility] Comment on above: Order Comment: Speci men Type: BLOOD SPECIMENOrdering Facility: [facility] Address: [address] [place] [address] Performed By: #### 1 9123-9, 3016-3, 88411-2, 2777-1 ####[facility] LABCLIA [id number] [address] [address] [place] Sodium [Moles/Vol] 140 mmol/L Normal 136-144 [facility] Comment on above: Order Comment: Speci men Type: BLOOD SPECIMENOrdering Facility: [facility] Address: [address] [place], [place] [address] Performed By: #### 1 9123-9, 3016-3, 41683-9, 2777-1 ####[facility] LABCLIA [id number] [place] [id number] [place] Urea nitrogen [Mass/Vol] 5 mg/dL Low 7-21 [facility] Comment on above: Order Comment: Speci men Type: BLOOD SPECIMENOrdering Facility: [facility] Address: [address] [place], [place] [address] Performed By: #### 1 9123-9, 3016-3, 36804-1, 2777-1 ####[facility] LABCLIA [id number] [place] [id number] [place] ED NOTEon 07-05-2023 ED NOTE HNO ID: [id number] Author: TIMOTEO POOLE RN Service: Emergency Medicine Author Type: Registered Nurse Type: ED Notes Filed: 07/05/2023 12:20 Note Text: Normal [facility] ED NOTE Normal [facility] ED NOTE HNO ID: [id number] Author: TIMOTEO POOLE RN Service: Emergency Medicine Author Type: Registered Nurse Type: ED Notes Filed: 07/05/2023 12:20 Note Text: Report off to oncoming RN. Normal [facility] ED NOTE HNO ID: [id number] Author: TIMOTEO POOLE RN Service: Emergency Medicine Author Type: Registered Nurse Type: ED Notes Filed: 07/05/2023 10:07 Note Text: Attempted to call report to G-81. Nurse unable to take report. Will call us back. Normal [facility] ED NOTE HNO ID: [id number] Author: HOOD RENEE RN Service: ? Author Type: Registered Nurse Type: ED Notes Filed: 07/05/2023 07:32 Note Text: Report given to Timoteo KERN Normal [facility] ED NOTE Normal [facility] ESR Westergren method (Bld) [Velocity]on 07-05-2023 ESR (Bld) [Velocity] 10 mm/h Normal 0-20 [facility] Comment on above: Order Comment: Speci men Type: BLOOD SPECIMENOrdering Facility: [facility] Address: [address] [place] [address] Performed By: #### 5 7021-8, 4537-7 ####[facility] LABIA [id number] [place] [address] [place] HISTORY PHYSICALon HISTORY PHYSICAL Normal [facility] Magnesium SerPl-mCncon 07-05 Magnesium [Mass/Vol] 1.9 mg/dL Normal 1.7-2.3 [facility] Comment on above: Order Comment: Speci men Type: BLOOD SPECIMENOrdering Facility: [facility] Address: [address] [place] [address] Performed By: #### 1 9123-9, 3016-3, 67610-3, 2777-1 ####[facility] LABCLIA [id number] [place] [address] [place] NURSING PROGon 07-05-2023 NURSING PROG Normal [facility] Phosphate SerPl-mCncon 07-05 Phosphate [Mass/Vol] 2.5 mg/dL Low 2.7-4.8 [facility] Comment on above: Order Comment: Speci men Type: BLOOD SPECIMENOrdering Facility: [facility] Address: [address] [place] [address] Performed By: #### 1 9123-9, 3016-3, 38744-0, 2777-1 ####[facility] LABCLIA [id number] [place] [address] [place] TOX SCREEN ROUT URon 024 Amphetamines Confirm (U) [Mass/Vol] Negative Normal Negative [facility] Comment on above: Order Comment: Speci men Type: URINE SPECIMENOrdering Facility: [facility] Address: [address] [place] [address] Result Comment: Cuto ff threshold at 1000 ng/mL. Performed By: #### U TOX2 ####[facility] LABIA [id number] [place] [address] [place] BARBITURATES, URINE Negative Normal Negative [facility] Comment on above: Order Comment: Speci men Type: URINE SPECIMENOrdering Facility: [facility] Address: [address] [place] [address] Result Comment: Cuto ff threshold at 200 ng/mL. Performed By: #### U TOX2 ####[facility] LABIA [id number] [place] [address] [place] BENZODIAZEPINES, UR Negative Normal Negative [facility] Comment on above: Order Comment: Speci men Type: URINE SPECIMENOrdering Facility: [facility] Address: [address] [place] [address] Result Comment: Cuto ff threshold at 200 ng/mL. Performed By: #### U TOX2 ####[facility] LABIA [id number] [place] [address] [place] Cannabinoids Screen Ql (U) Positive Abnormal Negative [facility] Comment on above: Order Comment: Speci men Type: URINE SPECIMENOrdering Facility: [facility] Address: [address] [place] [address] Result Comment: Cuto ff threshold at 50 ng/mL. Performed By: #### U TOX2 ####[facility] [id number] [place] [address] [place] Cocaine Ql (U) Negative Normal Negative [facility] Comment on above: Order Comment: Speci men Type: URINE SPECIMENOrdering Facility: [facility] Address: [address] [place] [address] Result Comment: Cuto ff threshold at 300 ng/mL. Performed By: #### U TOX2 ####[facility] [facility] LABCLIA [id number] [place] [address] [place] Ethanol (U) [Mass/Vol] <11 Normal <11 [facility] Comment on above: Order Comment: Speci men Type: URINE SPECIMENOrdering Facility: [facility] Address: [address] [place] [address] Performed By: #### U TOX2 ####[facility] LABCLIA [id number] [place] [address] [place] Opiates Screen Ql (U) Negative Normal Negative [facility] Comment on above: Order Comment: Speci men Type: URINE SPECIMENOrdering Facility: [facility] Address: [address] [place] [address] Result Comment: Cuto ff threshold at 300 ng/mL. Performed By: #### U TOX2 ####[facility] LABIA [id number] [place] [address] [place] oxyCODONE cutoff Screen (U) [Mass/Vol] Negative Normal Negative [facility] Comment on above: Order Comment: Speci men Type: URINE SPECIMENOrdering Facility: [facility] Address: [address] [place] [address] Result Comment: Cuto ff threshold at 100 ng/mL. Performed By: #### U TOX2 ####[facility] LABIA [id number] [place] [address] [place] Phencyclidine Ql (U) Negative Normal Negative [facility] Comment on above: Order Comment: Speci men Type: URINE SPECIMENOrdering Facility: [facility] Address: [address] [place] [address] Result Comment: Cuto ff threshold at 25 ng/mL. Performed By: #### U TOX2 ####[facility]CLIA [id number] [place] [address] [place] TSH SerPl-aCncon 07-05-2023 TSH Qn 1.170 m[IU]/L Normal 0.270-4.200 [facility] Comment on above: Order Comment: Speci men Type: BLOOD SPECIMENOrdering Facility: [facility] Address: [address] [place] [address] Result Comment: If t he patient is , TSH reference range varies by gestational period:First Trimester (weeks 9-12): 0.180-2.990 mIU/LSecond Trimester: 0.110-3.980 mIU/LThird Trimester: 0.480-4.710 mIU/Eva Yu et al. A Practical Approach for the Verifications and Determination of Site- and Trimester-Specific Reference Intervals for Thyroid Function tests in . Thyroid, 2019:29:3:412-420. Ismael E, et al. 2017 Guidelines of the [place] Thy[employer] for the Diagnosis and Management of Thyroid Disease during and the . Thyroid, 2017:27:3:315-389. Performed By: #### 1 9123-9, 3016-3, 88703-3, 2777-1 ####[facility] LABCLIA [id number] [place] [address] [place] URINALYSIS, DIPSTICK ONLYon 07-05-2023 Bilirubin Ql (U) Negative Normal Negative [facility] Comment on above: Order Comment: Speci men Type: URINE SPECIMENOrdering Facility: [facility] Address: [address] [place] [address] Performed By: #### U A ####[facility] LABCLIA [id number] [place] [address] [place] Clarity (Unsp spec) Cloudy Abnormal Clear [facility] Comment on above: Order Comment: Speci men Type: URINE SPECIMENOrdering Facility: [facility] Address: [address] [place] [address] Performed By: #### U A ####[facility] LABCLIA [id number] [place] [address] [place] Color (U) Yellow Normal Yellow [facility] Comment on above: Order Comment: Speci men Type: URINE SPECIMENOrdering Facility: [facility] Address: [address] [place] [address] Performed By: #### U A ####[facility] LABCLIA [id number] [place] [address] [place] Glucose Test strip (U) [Mass/Vol] Negative Normal Negative [facility] Comment on above: Order Comment: Speci men Type: URINE SPECIMENOrdering Facility: [facility] Address: [address] [place] [address] Performed By: #### U A ####[facility] LABCLIA [id number] [place] [address] [place] Hemoglobin Ql (U) Negative Normal Negative [facility] Comment on above: Order Comment: Speci men Type: URINE SPECIMENOrdering Facility: [facility] Address: [address] [place] [address] Performed By: #### U A ####[facility] LABCLIA [id number] [place] [address] [place] Ketones Ql (U) 2+ Abnormal Negative [facility] Comment on above: Order Comment: Speci men Type: URINE SPECIMENOrdering Facility: [facility] Address: [address] [place] [address] Performed By: #### U A ####[facility]CLIA [id number] [place] [address] [place] Leukocyte esterase Test strip Ql (U) 1+ Abnormal Negative [facility] Comment on above: Order Comment: Speci men Type: URINE SPECIMENOrdering Facility: [facility] Address: [address] [place] [address] Performed By: #### U A ####[facility] LABCLIA [id number] [place] [address] [place] Nitrite Ql (U) Negative Normal Negative [facility] Comment on above: Order Comment: Speci men Type: URINE SPECIMENOrdering Facility: [facility] Address: [address] [place] [address] Performed By: #### U A ####[facility] LABIA [id number] [place] [address] [place] pH (U) 6.0 [pH] Normal <8.5 [facility] Comment on above: Order Comment: Speci men Type: URINE SPECIMENOrdering Facility: [facility] Address: [address] [place] [address] Performed By: #### U A ####[facility] LABIA [id number] [place] [address] [place] Protein (U) [Mass/Vol] Negative Normal Negative [facility] Comment on above: Order Comment: Speci men Type: URINE SPECIMENOrdering Facility: [facility] Address: [address] [place] [address] Performed By: #### U A ####[facility] LABIA [id number] [place] [address] [place] Specific gravity (U) [Rel density] 1.020 Normal 1.005-1.030 [facility] Comment on above: Order Comment: Speci men Type: URINE SPECIMENOrdering Facility: [facility] Address: [address] [place] [address] Performed By: #### U A ####[facility] LABIA [id number] [place] [address] [place] Urobilinogen Ql (U) 0.2 EU/dL Normal 0.2-1.0 EU/dL Cl [facility] Comment on above: Order Comment: Speci men Type: URINE SPECIMENOrdering Facility: [facility] Address: [address] [place] [address] Performed By: #### U A ####[facility] LABCLIA [id number] [place] [address] [place] CBC W Auto Differential pane l (Bld)on 07-04-2023 Basophils (Bld) [#/Vol] 0.07 10*3/uL Normal <0.11 [facility] Comment on above: Order Comment: Speci men Type: BLOOD SPECIMENOrdering Facility: [facility] Address: [address] [place] [address] Performed By: #### 5 7021-8 ####[facility] LABIA [id number] [place] [address] [place] Basophils/100 WBC (Bld) 0.7 % Normal [facility] Comment on above: Order Comment: Speci men Type: BLOOD SPECIMENOrdering Facility: [facility] Address: [address] [place] [address] Performed By: #### 5 7021-8 ####[facility] LABIA [id number] [place] [address] [place] Differential cell count method Nom (Bld) Auto Normal [facility] Comment on above: Order Comment: Speci men Type: BLOOD SPECIMENOrdering Facility: [facility] Address: [address] [place] [address] Performed By: #### 5 7021-8 ####[facility] LABIA [id number] [place] [address] [place] Eosinophils (Bld) [#/Vol] 0.11 10*3/uL Normal <0.46 [facility] Comment on above: Order Comment: Speci men Type: BLOOD SPECIMENOrdering Facility: [facility] Address: [address] [place] [address] Performed By: #### 5 7021-8 ####[facility] LABCLIA [id number] [place] [address] [place] Eosinophils/100 WBC (Bld) 1.1 % Normal [facility] Comment on above: Order Comment: Speci men Type: BLOOD SPECIMENOrdering Facility: [facility] Address: [address] [place] [address] Performed By: #### 5 7021-8 ####[facility] LABCLIA [id number] [place] [address] [place] Erythrocyte distribution width (RBC) [Ratio] 11.9 % Normal 11.5-15.0 [facility] Comment on above: Order Comment: Speci men Type: BLOOD SPECIMENOrdering Facility: [facility] Address: [address] [place] [address] Performed By: #### 5 7021-8 ####[facility] LABIA [id number] [place] [address] [place] Hematocrit (Bld) [Volume fraction] 45.2 % Normal 36.0-46.0 [facility] Comment on above: Order Comment: Speci men Type: BLOOD SPECIMENOrdering Facility: [facility] Address: [address] [place] [address] Performed By: #### 5 7021-8 ####[facility] LABCLIA [id number] [place] [address] [place] Hemoglobin (Bld) [Mass/Vol] 15.9 g/dL High 11.5-15.5 [facility] Comment on above: Order Comment: Speci men Type: BLOOD SPECIMENOrdering Facility: [facility] Address: [address] [place] [address] Performed By: #### 5 7021-8 ####[facility] LABIA [id number] [id number] [address] [place] Immature granulocytes (Bld) [#/Vol] 10*3/uL Normal <0.10 [facility] Comment on above: Order Comment: Speci men Type: BLOOD SPECIMENOrdering Facility: [facility] Address: [address] [place] [address] Performed By: #### 5 7021-8 ####[facility] LABCLIA [id number] [place] [address] [place] Immature granulocytes/100 WBC (Bld) 0.2 % Normal [facility] Comment on above: Order Comment: Speci men Type: BLOOD SPECIMENOrdering Facility: [facility] Address: [address] [place] [address] Performed By: #### 5 7021-8 ####[facility] LABCLIA [id number] [place] [address] [place] Lymphocytes (Bld) [#/Vol] 1.90 10*3/uL Normal 1.00-4.00 [facility] Comment on above: Order Comment: Speci men Type: BLOOD SPECIMENOrdering Facility: [facility] Address: [address] [place] [address] Performed By: #### 5 7021-8 ####[facility] LABCLIA [id number] [place] [address] [place] Lymphocytes/100 WBC (Bld) 18.2 % Normal [facility] Comment on above: Order Comment: Speci men Type: BLOOD SPECIMENOrdering Facility: [facility] Address: [address] [place] [address] Performed By: #### 5 7021-8 ####[facility] LABCLIA [id number] [place] [address] [place] MCH (RBC) [Entitic mass] 31.9 pg Normal 26.0-34.0 [facility] Comment on above: Order Comment: Speci men Type: BLOOD SPECIMENOrdering Facility: [facility] Address: [address] [place] [address] Performed By: #### 5 7021-8 ####[facility] LABCLIA [id number] [place] [address] [place] MCHC (RBC) [Mass/Vol] 35.2 g/dL Normal 30.5-36.0 [facility] Comment on above: Order Comment: Speci men Type: BLOOD SPECIMENOrdering Facility: [facility] Address: [address] [place] [address] Performed By: #### 5 7021-8 ####[facility] LABCLIA [id number] [place] [address] [place] MCV (RBC) [Entitic vol] 90.6 fL Normal 80.0-100.0 [facility] Comment on above: Order Comment: Speci men Type: BLOOD SPECIMENOrdering Facility: [facility] Address: [address] [place] [address] Performed By: #### 5 7021-8 ####[facility] LABIA [id number] [place] [address] [place] Monocytes (Bld) [#/Vol] 0.49 10*3/uL Normal <0.87 [facility] Comment on above: Order Comment: Speci men Type: BLOOD SPECIMENOrdering Facility: [facility] Address: [address] [place] [address] Performed By: #### 5 7021-8 ####[facility] LABCLIA [id number] [place] [address] [place] Monocytes/100 WBC (Bld) 4.7 % Normal [facility] Comment on above: Order Comment: Speci men Type: BLOOD SPECIMENOrdering Facility: [facility] Address: [address] [place] [address] Performed By: #### 5 7021-8 ####[facility] LABIA [id number] [id number] [address] [place] Neutrophils (Bld) [#/Vol] 7.83 10*3/uL High 1.45-7.50 [facility] Comment on above: Order Comment: Speci men Type: BLOOD SPECIMENOrdering Facility: [facility] Address: [address] [place] [address] Performed By: #### 5 7021-8 ####[facility] LABCLIA [id number] [place] [address] [place] Neutrophils/100 WBC (Bld) 75.1 % Normal [facility] Comment on above: Order Comment: Speci men Type: BLOOD SPECIMENOrdering Facility: [facility] Address: [address] [place] [address] Performed By: #### 5 7021-8 ####[facility] LABCLIA [id number] [place] [address] [place] Nucleated RBC (Bld) [#/Vol] 10*3/uL Normal <0.01 [facility] Comment on above: Order Comment: Speci men Type: BLOOD SPECIMENOrdering Facility: [facility] Address: [address] [place] [address] Performed By: #### 5 7021-8 ####[facility] LABCLIA [id number] [place] [address] [place] Nucleated RBC/100 WBC (Bld) [Ratio] 0.0 /100 WBC Normal [facility] Comment on above: Order Comment: Speci men Type: BLOOD SPECIMENOrdering Facility: [facility] Address: [address] [place] [address] Performed By: #### 5 7021-8 ####[facility] LABCLIA [id number] [place] [address] [place] Platelet mean volume (Bld) [Entitic vol] 11.3 fL Normal 9.0-12.7 [facility] Comment on above: Order Comment: Speci men Type: BLOOD SPECIMENOrdering Facility: [facility] Address: [address] [place] [address] Performed By: #### 5 7021-8 ####[facility] LABIA [id number] [place] [address] [place] Platelets (Bld) [#/Vol] 225 10*3/uL Normal 150-400 [facility] Comment on above: Order Comment: Speci men Type: BLOOD SPECIMENOrdering Facility: [facility] Address: [address] [place] [address] Performed By: #### 5 7021-8 ####[facility] LABIA [id number] [place] [address] [place] RBC (Bld) [#/Vol] 4.99 10*6/uL Normal 3.90-5.20 [facility] Comment on above: Order Comment: Speci men Type: BLOOD SPECIMENOrdering Facility: [facility] Address: [address] [place] [address] Performed By: #### 5 7021-8 ####[facility] LABIA [id number] [place] [address] [place] WBC (Bld) [#/Vol] 10.42 10*3/uL Normal 3.70-11.00 [facility] Comment on above: Order Comment: Speci men Type: BLOOD SPECIMENOrdering Facility: [facility] Address: [address] [place] [address] Performed By: #### 5 7021-8 ####[facility] LABIA [id number] [place] [id number] [place] Comprehensive metabolic 2000 panelon 07-04-2023 Albumin [Mass/Vol] 4.9 g/dL Normal 3.9-4.9 [facility] Comment on above: Order Comment: Speci men Type: BLOOD SPECIMENOrdering Facility: [facility] Address: [address] [place] [address] Performed By: #### 1 9123-9, 97908-8, 277- ####[facility] LABCLIA [id number] [place] [address] [place] ALP [Catalytic activity/Vol] 49 U/L Normal 34-123 [facility] Comment on above: Order Comment: Speci men Type: BLOOD SPECIMENOrdering Facility: [facility] Address: [address] [place] [address] Performed By: #### 1 9123-9, 23607-2, 2776- ####[facility] LABCLIA [id number] [place] [address] [place] ALT [Catalytic activity/Vol] 10 U/L Normal 7-38 [facility] Comment on above: Order Comment: Speci men Type: BLOOD SPECIMENOrdering Facility: [facility] Address: [address] [place] [address] Performed By: #### 1 9123-9, 53695-8, 2776- ####[facility] LABCLIA [id number] [place] [address] [place] Anion gap [Moles/Vol] 11 mmol/L Normal 9-18 [facility] Comment on above: Order Comment: Speci men Type: BLOOD SPECIMENOrdering Facility: [facility] Address: [address] [place] [address] Performed By: #### 1 9123-9, 28045-3, 2776- ####[facility] LABCLIA [id number] [place] [address] [place] AST [Catalytic activity/Vol] 11 U/L Low 13-35 [facility] Comment on above: Order Comment: Speci men Type: BLOOD SPECIMENOrdering Facility: [facility] Address: [address] [place] [address] Performed By: #### 1 9123-9, 72568-7, 277- ####[facility] LABCLIA [id number] [place] [address] [place] Bilirubin [Mass/Vol] 0.7 mg/dL Normal 0.2-1.3 [facility] Comment on above: Order Comment: Speci men Type: BLOOD SPECIMENOrdering Facility: [facility] Address: [address] [place] [address] Performed By: #### 1 9123-9, 16085-7, 277- ####[facility] LABCLIA [id number] [place] [address] [place] Calcium [Mass/Vol] 10.0 mg/dL Normal 8.5-10.2 [facility] Comment on above: Order Comment: Speci men Type: BLOOD SPECIMENOrdering Facility: [facility] Address: [address] [place] [address] Performed By: #### 1 9123-9, 21414-2, 277- ####[facility] LABCLIA [id number] [place] [address] [place] Chloride [Moles/Vol] 106 mmol/L High 97-105 [facility] Comment on above: Order Comment: Speci men Type: BLOOD SPECIMENOrdering Facility: [facility] Address: [address] [place] [address] Performed By: #### 1 9123-9, 31365-8, 277- ####[facility] LABCLIA [id number] [place] [address] [place] CO2 [Moles/Vol] 22 mmol/L Normal 22-30 [facility] Comment on above: Order Comment: Speci men Type: BLOOD SPECIMENOrdering Facility: [facility] Address: [address] [place] [address] Performed By: #### 1 9123-9, 00160-5, 2777- ####[facility] LABCLIA [id number] [place] [address] [place] [facility] Creatinine [Mass/Vol] 0.78 mg/dL Normal 0.58-0.96 [facility] Comment on above: Order Comment: Arnol osman Type: BLOOD SPECIMENOrdering Facility: [facility] Address: [address] [place] [address] Performed By: #### 1 9123-9, 88419-6, 2777-1 ####[facility] LABIA [id number] [address] Creatinine and Glomerular filtration rate.predicted panel (S/P/Bld) 105 mL/min/1.73m??? Normal >=60 [facility] Comment on above: Order Comment: Arnol osman Type: BLOOD SPECIMENOrdering Facility: [facility] Address: [address] [place] [address] Result Comment: Albina mated Glomerular Filtration Rate [...] actual GFR. Performed By: #### 1 9123-9, 65686-5, 2776-05 ####[facility] LABIA [id number] [place] [address] [place] Glucose [Mass/Vol] 96 mg/dL Normal 74-99 [facility] Comment on above: Order Comment: Arnol osmna Type: BLOOD SPECIMENOrdering Facility: [facility] Address: [address] [place] [address] Result Comment: The [place] [employer] (ADA) provides guidance for cutoff [...] Standards of Medical Care in Diabetes 2016, [place] [employer]. Diabetes Care. 2016.39(Suppl 1). Performed By: #### 1 9123-9, 37785-1, 2776- ####[facility] LABCLIA [id number] [place] [address] [place] Potassium [Moles/Vol] 3.5 mmol/L Low 3.7-5.1 [facility] Comment on above: Order Comment: Speci men Type: BLOOD SPECIMENOrdering Facility: [facility] Address: [address] [place] [address] Performed By: #### 1 9123-9, 29591-7, 2776-05 ####[facility] LABCLIA [id number] [place] [address] [place] Protein [Mass/Vol] 7.5 g/dL Normal 6.3-8.0 [facility] Comment on above: Order Comment: Speci men Type: BLOOD SPECIMENOrdering Facility: [facility] Address: [address] [place] [address] Performed By: #### 1 9123-9, 68009-4, 2776-05 ####[facility] LABCLIA [id number] [place] [address] [place] Sodium [Moles/Vol] 139 mmol/L Normal 136-144 [facility] Comment on above: Order Comment: Speci men Type: BLOOD SPECIMENOrdering Facility: [facility] Address: [address] [place] [address] Performed By: #### 1 9123-9, , 2776-05 ####[facility] LABCLIA [id number] [address] [address] [place] Urea nitrogen [Mass/Vol] 5 mg/dL Low 7-21 [facility] Comment on above: Order Comment: Arnol osman Type: BLOOD SPECIMENOrdering Facility: [facility] Address: [address] [place] [address] Performed By: #### 1 9123-9, 53897-2, 2777-1 ####[facility] LABCLIA [id number] [address] OF [facility] ED NOTEon 07-04-2023 ED NOTE HNO ID: [id number] Author: SRIKANTH ELLSWORTH CT Service: Emergency Medicine Author Type: Clinical Social Worker Assistant Type: ED Notes Filed: 07/04/2023 18:22 Note Text: Pt declined updating vs Normal [facility] ED NOTE HNO ID: [id number] Author: SRIKANTH ELLSWORTH CT Service: Emergency Medicine Author Type: Clinical Social Worker Assistant Type: ED Notes Filed: 07/04/2023 17:12 Note Text: Updating pt vs Normal [facility] ED PROV NOTEon 07-04-2023 ED PROV NOTE Normal [facility] ED Triage Noteon 07-04-2023 ED Triage Note Normal [facility] HCG Preg Ur Qlon 07-04-2023 HCG ( test) Ql (U) Negative Normal Negative [facility] Comment on above: Order Comment: Arnol osman Type: URINE SPECIMENOrdering Facility: [facility] Address: [address] [place] [address] Result Comment: This test is intended to aid in the early detection of . Very dilute urine samples, as indicated by a low specific gravity, may not contain sales account representative levels of hCG. This test detects [...] for . Performed By: #### 2 106-3 ####[facility] LABCLIA [id number] [place] [address] [place] Magnesium SerPl-ncon 07-04 Magnesium [Mass/Vol] 1.9 mg/dL Normal 1.7-2.3 [facility] Comment on above: Order Comment: Speci men Type: BLOOD SPECIMENOrdering Facility: [facility] Address: [address] [place] [address] Performed By: #### 1 9123-9, 23771-1, 2777-1 ####[facility] LABCLIA [id number] [place] [address] [place] Phosphate SerPl-mCncon 07-04 Phosphate [Mass/Vol] 2.5 mg/dL Low 2.7-4.8 [facility] Comment on above: Order Comment: Speci men Type: BLOOD SPECIMENOrdering Facility: [facility] Address: [address] [place] [address] Performed By: #### 1 9123-9, 67443-4, 2777-1 ####[facility] LABIA [id number] [place] [address] [place] Urinalysis complete panel (U )on 07-04-2023 Bacteria LM.HPF (Urine sed) [#/Area] Negative Normal Negative [facility] Comment on above: Order Comment: Speci men Type: URINE SPECIMENOrdering Facility: [facility] Address: [address] [place] [address] Performed By: #### 2 4356-8 ####[facility] LABCLIA [id number] [place] [address] [place] Bilirubin Ql (U) Negative Normal Negative [facility] Comment on above: Order Comment: Speci men Type: URINE SPECIMENOrdering Facility: [facility] Address: [address] [place] [address] Performed By: #### 2 4356-8 ####[facility] LABCLIA [id number] [place] [address] [place] Clarity (Unsp spec) Clear Normal Clear [facility] Comment on above: Order Comment: Speci men Type: URINE SPECIMENOrdering Facility: [facility] Address: [address] [place] [address] Performed By: #### 2 4356-8 ####[facility] LABCLIA [id number] [place] [address] [place] Color (U) Yellow Normal Yellow [facility] Comment on above: Order Comment: Speci men Type: URINE SPECIMENOrdering Facility: [facility] Address: [facility] [place] [address] Performed By: #### 2 4356-8 ####[facility] LABCLIA [id number] [place] [address] [place] Epithelial cells LM.HPF (Urine sed) [#/Area] Few Normal [facility] Comment on above: Order Comment: Speci men Type: URINE SPECIMENOrdering Facility: [facility] Address: [address] [place] [address] Performed By: #### 2 4356-8 ####[facility] LABCLIA [id number] [place] [address] [place] Glucose Test strip (U) [Mass/Vol] Negative Normal Negative [facility] Comment on above: Order Comment: Speci men Type: URINE SPECIMENOrdering Facility: [facility] Address: [address] [place] [address] Performed By: #### 2 4356-8 ####[facility] LABCLIA [id number] [place] [address] [place] Hemoglobin Ql (U) Negative Normal Negative [facility] Comment on above: Order Comment: Speci men Type: URINE SPECIMENOrdering Facility: [facility] Address: [address] [place] [address] Performed By: #### 2 4356-8 ####[facility] LABCLIA [id number] [place] [address] [place] Hyaline casts (Urine sed) [#/Area] 0 /[LPF] Normal 0 /LPF [facility] Comment on above: Order Comment: Speci men Type: URINE SPECIMENOrdering Facility: [facility] Address: [address] [place] [address] Performed By: #### 2 4356-8 ####[facility] LABCLIA [id number] [place] [address] [place] Ketones Ql (U) Trace Abnormal Negative [facility] Comment on above: Order Comment: Speci men Type: URINE SPECIMENOrdering Facility: [facility] Address: [address] [place] [address] Performed By: #### 2 4356-8 ####[facility] LABCLIA [id number] [place] [address] [place] Leukocyte esterase Test strip Ql (U) Negative Normal Negative [facility] Comment on above: Order Comment: Speci men Type: URINE SPECIMENOrdering Facility: [facility] Address: [address] [place] [address] Performed By: #### 2 4356-8 ####[facility] LABCLIA [id number] [place] [address] [place] Nitrite Ql (U) Negative Normal Negative [facility] Comment on above: Order Comment: Speci men Type: URINE SPECIMENOrdering Facility: [facility] Address: [address] [place] [address] Performed By: #### 2 4356-8 ####[facility] LABCLIA [id number] [place] [address] [place] pH (U) 7.5 [pH] Normal <8.5 [facility] Comment on above: Order Comment: Speci men Type: URINE SPECIMENOrdering Facility: [facility] Address: [address] [place] [address] Performed By: #### 2 4356-8 ####[facility] LABIA [id number] [place] [address] [place] Protein (U) [Mass/Vol] Negative Normal Negative [facility] Comment on above: Order Comment: Speci men Type: URINE SPECIMENOrdering Facility: [facility] Address: [address] [place] [address] Performed By: #### 2 4356-8 ####[facility] LABIA [id number] [place] [address] [place] RBC LM.HPF (Urine sed) [#/Area] 0-2 /HPF Normal 0-2 /HPF [facility] Comment on above: Order Comment: Speci men Type: URINE SPECIMENOrdering Facility: [facility] Address: [address] [place] [address] Performed By: #### 2 4356-8 ####[facility]IA [id number] [place] [address] [place] Specific gravity (U) [Rel density] 1.009 Normal 1.005-1.030 [facility] Comment on above: Order Comment: Speci men Type: URINE SPECIMENOrdering Facility: [facility] Address: [address] [place] [address] Performed By: #### 2 4356-8 ####[facility] LABIA [id number] [place] [address] [place] Urobilinogen Ql (U) 0.2 EU/dL Normal 0.2-1.0 EU/dL [facility] Comment on above: Order Comment: Speci men Type: URINE SPECIMENOrdering Facility: [facility] Address: [address] [place] [address] Performed By: #### 2 4356-8 ####[facility] LABIA [id number] [place] [address] [place] WBC LM.HPF (Urine sed) [#/Area] 0-5 /HPF Normal 0-5 /HPF [facility] Comment on above: Order Comment: Speci men Type: URINE SPECIMENOrdering Facility: [facility] Address: [address] [place] [address] Performed By: #### 2 4356-8 ####[facility] LABCLIA [id number] [place] [address] [place] Alanine aminotransferase [En zymatic activity/volume] in Serum or PlasmaOrdered By: Anny Marin on 06-02-2023 ALT [Catalytic activity/Vol] 9 U/L 7-52 [facility] Albumin [Mass/volume] in Ser um or Plasma by Bromocresol green (BCG) dye binding methoOrdered By: Anny Marin on 06-02-2023 Albumin BCG dye [Mass/Vol] 4.5 g/dL 3.5-5.7 [facility] Alkaline phosphatase [Enzyma tic activity/volume] in Serum or PlasmaOrdered By: Anny Marin on 06-02-2023 ALP [Catalytic activity/Vol] 45 U/L 34-104 [facility] Aspartate aminotransferase [ Enzymatic activity/volume] in Serum or PlasmaOrdered By: Anny Marin on 06-02-2023 AST [Catalytic activity/Vol] 11 U/L 13-39 [facility] Basophils Auto (Bld) [#/Vol] Ordered By: Anny Marin on 06-02-2023 Basophils (Bld) [#/Vol] 0.1 10*3/uL 0.0-0.2 [facility] Basophils/100 WBC Auto (Bld) Ordered By: Anny Marin on 06-02-2023 Basophils/100 WBC (Bld) 0.7 % . [facility] Bilirubin.total [Mass/volume ] in Serum or PlasmaOrdered By: Anny Marin on 06-02-2023 Bilirubin [Mass/Vol] 0.6 mg/dL 0.3-1.0 [facility] Calcium [Mass/volume] in Ser um or PlasmaOrdered By: Anny Marin on 06-02-2023 Calcium [Mass/Vol] 9.5 mg/dL 8.6-10.3 [facility] Carbon dioxide, total [Moles /volume] in Serum or PlasmaOrdered By: Anny Marin on 06-02-2023 CO2 [Moles/Vol] 27.1 mmol/L 21.0-31.0 [facility] Chloride [Moles/volume] in S yoav or PlasmaOrdered By: Anny Marin on 06-02-2023 Chloride [Moles/Vol] 107 mmol/L 98-107 [facility] Creatinine [Mass/volume] in Serum or PlasmaOrdered By: Anny Marin on 06-02-2023 Creatinine [Mass/Vol] 0.80 mg/dL 0.60-1.20 [facility] Eosinophils Auto (Bld) [#/Vo l]Ordered By: Anny Marin on 06-02-2023 Eosinophils (Bld) [#/Vol] 0.1 10*3/uL 0.0-0.45 [facility] Eosinophils/100 WBC Auto (Bl d)Ordered By: Anny Marin on 06-02-2023 Eosinophils/100 WBC (Bld) 1.0 % . [facility] Erythrocyte distribution wid th Auto (RBC) [Ratio]Ordered By: Anny Marin on 06-02-2023 Erythrocyte distribution width (RBC) [Ratio] 13.0 % 11.9-15.3 [facility] Folate [Mass/volume] in Seru m or PlasmaOrdered By: Anny Marin on 06-02-2023 Folate [Mass/Vol] 11.2 ng/mL >5.9 [facility] Comment on above: Folate reference ran ge: >5.9 ng/mlThe WHO technical consultation on folate and vitamin [id number] has determined that folate concentrations lessthan 4 ng/ml are considered deficient. Globulin Calc (S) [Mass/Vol] Ordered By: Anny Marin on 06-02-2023 Globulin (S) [Mass/Vol] 2.3 g/dL [facility] Glucose [Mass/volume] in Ser um or PlasmaOrdered By: Anny Marin on 06-02-2023 Glucose [Mass/Vol] 91 mg/dL 70-100 [facility] Comment on above: ADA recommended refe rence rangeRandom Glucose Reference Range is dependent on time and content of last meal. Glucose of more than 200 mg/dL in a nonstressed, ambulatory subject supports the diagnosis of Diabetes Mellitus. Hematocrit Auto (Bld) [Volum e fraction]Ordered By: Anny Marin on 06-02-2023 Hematocrit (Bld) [Volume fraction] 46.0 % 34.0-46.4 [facility] Hemoglobin [Mass/volume] in BloodOrdered By: Anny Marin on 06-02-2023 Hemoglobin (Bld) [Mass/Vol] 15.7 g/dL 11.8-15.4 [facility] Leukocytes [#/volume] correc kitty for nucleated erythrocytes in Blood by Automated counOrdered By: Anny Marin on 06-02-2023 WBC corrected for nucl RBC Auto (Bld) [#/Vol] 8.2 10*3/uL 3.8-11.6 [facility] Lymphocytes Auto (Bld) [#/Vo l]Ordered By: Anny Marin on 06-02-2023 Lymphocytes (Bld) [#/Vol] 1.2 10*3/uL 1.00-4.8 [facility] Lymphocytes/100 WBC Auto (Bl d)Ordered By: Anny Marin on 06-02-2023 Lymphocytes/100 WBC (Bld) 14.9 % . [facility] MCH Auto (RBC) [Entitic mass ]Ordered By: Anny Marin on 06-02-2023 MCH (RBC) [Entitic mass] 32.5 pg 24.7-34.3 [facility] MCHC Auto (RBC) [Mass/Vol]Or dered By: Anny Marin on 06-02-2023 MCHC (RBC) [Mass/Vol] 34.0 g/dL 32.0-35.0 [facility] MCV Auto (RBC) [Entitic vol] Ordered By: Anny Marin on 06-02-2023 MCV (RBC) [Entitic vol] 95.5 fL 80-100 [facility] Magnesium [Mass/volume] in S yoav or PlasmaOrdered By: Anny Marin on 06-02-2023 Magnesium [Mass/Vol] 1.6 mg/dL 1.9-2.7 [facility] Monocytes Auto (Bld) [#/Vol] Ordered By: Anny Marin on 06-02-2023 Monocytes (Bld) [#/Vol] 0.3 10*3/uL 0.0-0.8 [facility] Monocytes/100 WBC Auto (Bld) Ordered By: Anny Marin on 06-02-2023 Monocytes/100 WBC (Bld) 3.3 % . [facility] Neutrophils Auto (Bld) [#/Vo l]Ordered By: Anny Marin on 06-02-2023 Neutrophils (Bld) [#/Vol] 6.5 10*3/uL 1.8-7.7 [facility] Neutrophils/100 WBC Auto (Bl d)Ordered By: Anny Marin on 06-02-2023 Neutrophils/100 WBC (Bld) 80.1 % . [facility] No Panel InformationOrdered By: Anny Marin on 06-02-2023 Estimated GFR (CKD-EPI) > 60.0 mL/Min [facility] Creatinine Clearance (Chem N/A [facility] Nucleated erythrocytes [Pres ence] in Blood by Automated countOrdered By: Anny Marin on 06-02-2023 Nucleated RBC Auto Ql (Bld) 0.1 /100{WBC} 0-0.5 [facility] Phosphate [Mass/volume] in S yoav or PlasmaOrdered By: Anny Marin on 06-02-2023 Phosphate [Mass/Vol] 2.8 mg/dL 2.5-4.5 [facility] Platelet mean volume Auto (B ld) [Entitic vol]Ordered By: Anny Marin on 06-02-2023 Platelet mean volume (Bld) [Entitic vol] 10.4 fL 6.3-10.7 [facility] Platelets Auto (Bld) [#/Vol] Ordered By: Anny Marin on 06-02-2023 Platelets (Bld) [#/Vol] 229 10*3/uL 150-450 [facility] Potassium [Moles/volume] in Serum or PlasmaOrdered By: Anny Marin on 06-02-2023 Potassium [Moles/Vol] 4.2 mmol/L 3.5-5.1 [facility] Protein [Mass/volume] in Ser um or PlasmaOrdered By: Anny Marin on 06-02-2023 Protein [Mass/Vol] 6.8 g/dL 6.4-8.9 [facility] RBC Auto (Bld) [#/Vol]Ordere d By: Anny Tomas on 06-02-2023 RBC (Bld) [#/Vol] 4.82 10*6/uL 3.60-5.00 [facility] Serum or plasma albumin/glob ulin mass ratioOrdered By: Anny Marin on 06-02-2023 Albumin/Globulin [Mass ratio] 2.0 {ratio} [facility] Serum or plasma anion gap de terminationOrdered By: Anny Marin on 06-02-2023 Anion gap [Moles/Vol] 10.1 mmol/L 6.0-15.0 [facility] Sodium [Moles/volume] in Ser um or PlasmaOrdered By: Anny Tmoas on 06-02-2023 Sodium [Moles/Vol] 140 mmol/L 136-145 [facility] Urea nitrogen [Mass/volume] in Serum or PlasmaOrdered By: Anny Tomas on 06-02-2023 Urea nitrogen [Mass/Vol] 7 mg/dL 7-25 [facility] Vitamin B12 ser/plasOrdered By: Anny Marin on 06-02-2023 Cobalamin (Vitamin B12) [Mass/Vol] 155 pg/mL 180-914 [facility] WBC Auto (Bld) [#/Vol]Ordere d By: Anny Tomas on 06-02-2023 WBC (Bld) [#/Vol] 8.2 10*3/uL 3.8-11.6 [facility] Prealbumin [Mass/volume] in Serum or PlasmaOrdered By: Anny Marin on 03-25-2023 Prealbumin [Mass/Vol] 24.0 mg/dL 17.0-34.0 [facility] Alanine aminotransferase [En zymatic activity/volume] in Serum or PlasmaOrdered By: Estuardo Hardin on 03-21-2023 ALT [Catalytic activity/Vol] 14 U/L 7-52 [facility] Albumin [Mass/volume] in Ser um or Plasma by Bromocresol green (BCG) dye binding methoOrdered By: Estuardo Hardin on 03-21-2023 Albumin BCG dye [Mass/Vol] 5.3 g/dL 3.5-5.7 [facility] Alkaline phosphatase [Enzyma tic activity/volume] in Serum or PlasmaOrdered By: Estuardo Hardin on 03-21-2023 ALP [Catalytic activity/Vol] 48 U/L 34-104 [facility] Aspartate aminotransferase [ Enzymatic activity/volume] in Serum or PlasmaOrdered By: Estuardo Hardin on 03-21-2023 AST [Catalytic activity/Vol] 16 U/L 13-39 [facility] Automated erythrocytes count in urine sediment (number/area)Ordered By: Estuardo Hardin on 03-21-2023 RBC Auto (Urine sed) [#/Area] 0-1 [HPF] 0-4 [facility] Automated leukocytes count i n urine sediment (number/area)Ordered By: Estuardo Hardin on 03-21-2023 WBC Auto (Urine sed) [#/Area] 5-9 [HPF] 0-4 [facility] Basophils Auto (Bld) [#/Vol] Ordered By: Estuardo Hardin on 03-21-2023 Basophils (Bld) [#/Vol] 0.1 10*3/uL 0.0-0.2 [facility] Basophils/100 WBC Auto (Bld) Ordered By: Estuardo Hardin on 03-21-2023 Basophils/100 WBC (Bld) 0.6 % . [facility] Bilirubin Test strip Ql (U)O rdered By: Estuardo Hardin on 03-21-2023 Bilirubin Ql (U) Negative Negative [facility] Bilirubin.direct [Mass/volum e] in Serum or PlasmaOrdered By: Estuardo Hardin on 03-21-2023 Bilirubin.direct [Mass/Vol] 0.20 mg/dL 0.03-0.18 [facility] Bilirubin.total [Mass/volume ] in Serum or PlasmaOrdered By: Estuardo Hardin on 03-21-2023 Bilirubin [Mass/Vol] 1.2 mg/dL 0.3-1.0 [facility] Calcium [Mass/volume] in Ser um or PlasmaOrdered By: Estuardo Hardin on 03-21-2023 Calcium [Mass/Vol] 10.5 mg/dL 8.6-10.3 [facility] Carbon dioxide, total [Moles /volume] in Serum or PlasmaOrdered By: Estuardo Hardin on 03-21-2023 CO2 [Moles/Vol] 25.7 mmol/L 21.0-31.0 [facility] Chloride [Moles/volume] in S yoav or PlasmaOrdered By: Estuardo Hardin on 03-21-2023 Chloride [Moles/Vol] 100 mmol/L 98-107 [facility] Color Auto (U)Ordered By: Tono red Lashawn on 03-21-2023 Color (U) Dark yellow Yellow [facility] Creatine kinase [Enzymatic a ctivity/volume] in Serum or PlasmaOrdered By: Estuardo Hardin on 03-21-2023 CK [Catalytic activity/Vol] 81 U/L 30-223 [facility] Creatinine [Mass/volume] in Serum or PlasmaOrdered By: Estuardo Hardin on 03-21-2023 Creatinine [Mass/Vol] 1.00 mg/dL 0.60-1.20 [facility] Eosinophils Auto (Bld) [#/Vo l]Ordered By: Estuardo Hardin on 03-21-2023 Eosinophils (Bld) [#/Vol] 0.1 10*3/uL 0.0-0.45 [facility] Eosinophils/100 WBC Auto (Bl d)Ordered By: Estuardo Hardin on 03-21-2023 Eosinophils/100 WBC (Bld) 0.6 % . [facility] Erythrocyte distribution wid th Auto (RBC) [Ratio]Ordered By: Estuardo Hardin on 03-21-2023 Erythrocyte distribution width (RBC) [Ratio] 13.7 % 11.9-15.3 [facility] Globulin Calc (S) [Mass/Vol] Ordered By: Estuardo Hardin on 03-21-2023 Globulin (S) [Mass/Vol] 3.0 g/dL [facility] Glucose [Mass/volume] in Ser um or PlasmaOrdered By: Estuardo Hardin on 03-21-2023 Glucose [Mass/Vol] 104 mg/dL 70-100 [facility] Comment on above: ADA recommended refe rence rangeRandom Glucose Reference Range is dependent on time and content of last meal. Glucose of more than 200 mg/dL in a nonstressed, ambulatory subject supports the diagnosis of Diabetes Mellitus. HCG ( test) IA.rapi d Ql (U)Ordered By: Estuardo Hardin on 03-21-2023 HCG ( test) Ql (U) Negative [facility] Hematocrit Auto (Bld) [Volum e fraction]Ordered By: Estuardo Hardin on 03-21-2023 Hematocrit (Bld) [Volume fraction] 48.4 % 34.0-46.4 [facility] Hemoglobin [Mass/volume] in BloodOrdered By: Estuardo Hardin on 03-21-2023 Hemoglobin (Bld) [Mass/Vol] 16.5 g/dL 11.8-15.4 [facility] Ketones Auto test strip (U) [Mass/Vol]Ordered By: Estuardo Hardin on 03-21-2023 Ketones (U) [Mass/Vol] 3+ Negative [facility] - UrinalysisOrder ed By: Estuardo Hardin on 03-21-2023 Hyaline casts LM Ql (Urine sed) 9-19 [LPF] 0-8 [facility] Leukocytes [#/volume] correc kitty for nucleated erythrocytes in Blood by Automated counOrdered By: Estuardo Hardin on 03-21-2023 WBC corrected for nucl RBC Auto (Bld) [#/Vol] 10.2 10*3/uL 3.8-11.6 [facility] Lymphocytes Auto (Bld) [#/Vo l]Ordered By: Estuardo Hardin on 03-21-2023 Lymphocytes (Bld) [#/Vol] 1.3 10*3/uL 1.00-4.8 [facility] Lymphocytes/100 WBC Auto (Bl d)Ordered By: Estuardo Hardin on 03-21-2023 Lymphocytes/100 WBC (Bld) 12.6 % . [facility] MCH Auto (RBC) [Entitic mass ]Ordered By: Estuardo Hardin on 03-21-2023 MCH (RBC) [Entitic mass] 31.2 pg 24.7-34.3 [facility] MCHC Auto (RBC) [Mass/Vol]Or dered By: Estuardo Hardin on 03-21-2023 MCHC (RBC) [Mass/Vol] 34.0 g/dL 32.0-35.0 [facility] MCV Auto (RBC) [Entitic vol] Ordered By: Estuardo Hardin on 03-21-2023 MCV (RBC) [Entitic vol] 91.8 fL 80-100 [facility] Magnesium [Mass/volume] in S yoav or PlasmaOrdered By: Estuardo Hardin on 03-21-2023 Magnesium [Mass/Vol] 1.9 mg/dL 1.9-2.7 [facility] Monocyte distribution width [Entitic volume] in Blood by AutomatedOrdered By: Estuardo Hardin on 03-21-2023 Monocyte distribution width Auto (Bld) [Entitic vol] 17.09 % 0.00-20.00 [facility] Monocytes Auto (Bld) [#/Vol] Ordered By: Estuardo Hardin on 03-21-2023 Monocytes (Bld) [#/Vol] 0.3 10*3/uL 0.0-0.8 [facility] Monocytes/100 WBC Auto (Bld) Ordered By: Estuardo Hardin on 03-21-2023 Monocytes/100 WBC (Bld) 2.9 % . [facility] Neutrophils Auto (Bld) [#/Vo l]Ordered By: Estuardo Hardin on 03-21-2023 Neutrophils (Bld) [#/Vol] 8.5 10*3/uL 1.8-7.7 [facility] Neutrophils/100 WBC Auto (Bl d)Ordered By: Estuardo Hardin on 03-21-2023 Neutrophils/100 WBC (Bld) 83.3 % . [facility] Nitrite Test strip Ql (U)Ord ered By: Estuardo Hardin on 03-21-2023 Nitrite Ql (U) Negative Negative [facility] No Panel InformationOrdered By: Estuardo Hardin on 03-21-2023 Estimated GFR (CKD-EPI) > 60.0 mL/Min [facility] Creatinine Clearance (Chem 70.61 [facility] Nucleated erythrocytes [Pres ence] in Blood by Automated countOrdered By: Estuardo Hardin on 03-21-2023 Nucleated RBC Auto Ql (Bld) 0.1 /100{WBC} 0-0.5 [facility] Platelet mean volume Auto (B ld) [Entitic vol]Ordered By: Estuardo Hardin on 03-21-2023 Platelet mean volume (Bld) [Entitic vol] 9.5 fL 6.3-10.7 [facility] Platelets Auto (Bld) [#/Vol] Ordered By: Estuardo Hardin on 03-21-2023 Platelets (Bld) [#/Vol] 330 10*3/uL 150-450 [facility] Potassium [Moles/volume] in Serum or PlasmaOrdered By: Estuardo Hardin on 03-21-2023 Potassium [Moles/Vol] 3.0 mmol/L 3.5-5.1 [facility] Protein Auto test strip (U) [Mass/Vol]Ordered By: Estuardo Hardin on 03-21-2023 Protein (U) [Mass/Vol] 100 mg/dL Negative [facility] Protein [Mass/volume] in Ser um or PlasmaOrdered By: Estuardo Hardin on 03-21-2023 Protein [Mass/Vol] 8.3 g/dL 6.4-8.9 [facility] RBC Auto (Bld) [#/Vol]Ordere d By: Estuardo Hardin on 03-21-2023 RBC (Bld) [#/Vol] 5.28 10*6/uL 3.60-5.00 [facility] Serum or plasma albumin/glob ulin mass ratioOrdered By: Estuardo Hardin on 03-21-2023 Albumin/Globulin [Mass ratio] 1.8 {ratio} [facility] Serum or plasma anion gap de terminationOrdered By: Estuardo Hardin on 03-21-2023 Anion gap [Moles/Vol] 19.3 mmol/L 6.0-15.0 [facility] Serum or plasma non-glucuron idated bilirubin measurement (mass/volume)Ordered By: Estuardo Hardin on 03-21-2023 Bilirubin.indirect [Mass/Vol] 1.0 mg/dL [facility] Sodium [Moles/volume] in Ser um or PlasmaOrdered By: Estuardo Hardin on 03-21-2023 Sodium [Moles/Vol] 142 mmol/L 136-145 [facility] Specific gravity Auto test s trip (U) [Rel density]Ordered By: Estuardo Hardin on 03-21-2023 Specific gravity (U) [Rel density] 1.026 1.001-1.030 [facility] Squamous epithelial cells de tection in urine sediment by light microscopyOrdered By: Estuardo Hardin on 03-21-2023 Epithelial cells.squamous LM Ql (Urine sed) 10-19 [HPF] 0-2 [facility] Troponin I.cardiac [Mass/vol ume] in Serum or Plasma by Detection limit <= 0.01 ng/Ordered By: Estuardo Hardin on 03-21-2023 Troponin I.cardiac DL <= 0.01 ng/mL [Mass/Vol] 3.6 pg/mL 0.0-15.0 [facility] Urea nitrogen [Mass/volume] in Serum or PlasmaOrdered By: Estuardo Hardin on 03-21-2023 Urea nitrogen [Mass/Vol] 8 mg/dL 7-25 [facility] Urine bacteria detection by automated methodOrdered By: Estuardo Hardin on 03-21-2023 Bacteria Auto Ql (U) None seen None Seen [facility] Urine clarity by refractomet ry automatedOrdered By: Estuardo Hardin on 03-21-2023 Clarity Refractometry automated (U) Cloudy Clear [facility] Urine culture routineOrdered By: Estuardo Hardin on 03-21-2023 Bacteria identified Cx Nom (U) No Growth 2 Days [facility] Urine glucose measurement by automated test strip (mass/volume)Ordered By: Estuardo Hardin on 03-21-2023 Glucose Auto test strip (U) [Mass/Vol] Normal mg/dL Normal [facility] Urine hemoglobin detection b y automated test stripOrdered By: Estuardo Hardin on 03-21-2023 Hemoglobin Auto test strip Ql (U) Negative Negative [facility] Urine leukocyte esterase det ection by automated test stripOrdered By: Estuardo Hardin on 03-21-2023 Leukocyte esterase Auto test strip Ql (U) 1+ Negative [facility] Urobilinogen Auto test strip (U) [Mass/Vol]Ordered By: Estuardo Hardin on 03-21-2023 Urobilinogen (U) [Mass/Vol] Normal mg/dL Normal [facility] WBC Auto (Bld) [#/Vol]Ordere d By: Estuardo Hardin on 03-21-2023 WBC (Bld) [#/Vol] 10.2 10*3/uL 3.8-11.6 [facility] pH Auto test strip (U)Ordere d By: Estuardo Hardin on 03-21-2023 pH (U) 6.5 [pH] 5.0-9.0 [facility] Alanine aminotransferase [En zymatic activity/volume] in Serum or PlasmaOrdered By: Anny Marin on 03-20-2023 ALT [Catalytic activity/Vol] 10 U/L 7-52 [facility] Albumin [Mass/volume] in Ser um or Plasma by Bromocresol green (BCG) dye binding methoOrdered By: Anny Marin on 03-20-2023 Albumin BCG dye [Mass/Vol] 5.2 g/dL 3.5-5.7 [facility] Alkaline phosphatase [Enzyma tic activity/volume] in Serum or PlasmaOrdered By: Anny Marin on 03-20-2023 ALP [Catalytic activity/Vol] 47 U/L 34-104 [facility] Amylase [Enzymatic activity/ volume] in Serum or PlasmaOrdered By: Anny Marin on 03-20-2023 Amylase [Catalytic activity/Vol] 11 U/L 29-103 [facility] Aspartate aminotransferase [ Enzymatic activity/volume] in Serum or PlasmaOrdered By: Anny Marin on 03-20-2023 AST [Catalytic activity/Vol] 12 U/L 13-39 [facility] Basophils Auto (Bld) [#/Vol] Ordered By: Anyn Marin on 03-20-2023 Basophils (Bld) [#/Vol] 0.1 10*3/uL 0.0-0.2 [facility] Basophils/100 WBC Auto (Bld) Ordered By: Anny Marin on 03-20-2023 Basophils/100 WBC (Bld) 0.8 % . [facility] Bilirubin.total [Mass/volume ] in Serum or PlasmaOrdered By: Anny Marin on 03-20-2023 Bilirubin [Mass/Vol] 0.7 mg/dL 0.3-1.0 [facility] Calcium [Mass/volume] in Ser um or PlasmaOrdered By: Anny Marin on 03-20-2023 Calcium [Mass/Vol] 10.3 mg/dL 8.6-10.3 [facility] Carbon dioxide, total [Moles /volume] in Serum or PlasmaOrdered By: Annyvinayak Marin on 03-20-2023 CO2 [Moles/Vol] 27.8 mmol/L 21.0-31.0 [facility] Chloride [Moles/volume] in S yoav or PlasmaOrdered By: Anny Marin on 03-20-2023 Chloride [Moles/Vol] 103 mmol/L 98-107 [facility] Creatinine [Mass/volume] in Serum or PlasmaOrdered By: Anny Tomas on 03-20-2023 Creatinine [Mass/Vol] 0.96 mg/dL 0.60-1.20 [facility] Eosinophils Auto (Bld) [#/Vo l]Ordered By: Anny Valenteaustyn on 03-20-2023 Eosinophils (Bld) [#/Vol] 0.0 10*3/uL 0.0-0.45 [facility] Eosinophils/100 WBC Auto (Bl d)Ordered By: Anny Marin on 03-20-2023 Eosinophils/100 WBC (Bld) 0.5 % . [facility] Erythrocyte distribution wid th Auto (RBC) [Ratio]Ordered By: Anny Marin on 03-20-2023 Erythrocyte distribution width (RBC) [Ratio] 13.9 % 11.9-15.3 [facility] Globulin Calc (S) [Mass/Vol] Ordered By: Anny Marin on 03-20-2023 Globulin (S) [Mass/Vol] 2.6 g/dL [facility] Glucose [Mass/volume] in Ser um or PlasmaOrdered By: Anny Marin on 03-20-2023 Glucose [Mass/Vol] 98 mg/dL 70-100 [facility] Comment on above: ADA recommended refe rence rangeRandom Glucose Reference Range is dependent on time and content of last meal. Glucose of more than 200 mg/dL in a nonstressed, ambulatory subject supports the diagnosis of Diabetes Mellitus. Hematocrit Auto (Bld) [Volum e fraction]Ordered By: Anny Marin on 03-20-2023 Hematocrit (Bld) [Volume fraction] 46.2 % 34.0-46.4 [facility] Hemoglobin [Mass/volume] in BloodOrdered By: Anny Marin on 03-20-2023 Hemoglobin (Bld) [Mass/Vol] 15.8 g/dL 11.8-15.4 [facility] Leukocytes [#/volume] correc kitty for nucleated erythrocytes in Blood by Automated counOrdered By: Anny Marin on 03-20-2023 WBC corrected for nucl RBC Auto (Bld) [#/Vol] 9.9 10*3/uL 3.8-11.6 [facility] Lipase [Enzymatic activity/v olume] in Serum or PlasmaOrdered By: Anny Marin on 03-20-2023 Lipase [Catalytic activity/Vol] 5.0 U/L 11.0-82.0 [facility] Lymphocytes Auto (Bld) [#/Vo l]Ordered By: Anny Marin on 03-20-2023 Lymphocytes (Bld) [#/Vol] 1.6 10*3/uL 1.00-4.8 [facility] Lymphocytes/100 WBC Auto (Bl d)Ordered By: Anny Marin on 03-20-2023 Lymphocytes/100 WBC (Bld) 16.6 % . [facility] MCH Auto (RBC) [Entitic mass ]Ordered By: Anny Marin on 03-20-2023 MCH (RBC) [Entitic mass] 31.5 pg 24.7-34.3 [facility] MCHC Auto (RBC) [Mass/Vol]Or dered By: Anyn Marin on 11-09-2023 MCHC (RBC) [Mass/Vol] 34.2 g/dL 32.0-35.0 [facility] MCV Auto (RBC) [Entitic vol] Ordered By: Anny Marin on 03-20-2023 MCV (RBC) [Entitic vol] 92.0 fL 80-100 [facility] Magnesium [Mass/volume] in S yoav or PlasmaOrdered By: Anny Marin on 03-20-2023 Magnesium [Mass/Vol] 1.9 mg/dL 1.9-2.7 [facility] Monocytes Auto (Bld) [#/Vol] Ordered By: Anny Marin on 03-20-2023 Monocytes (Bld) [#/Vol] 0.5 10*3/uL 0.0-0.8 [facility] Monocytes/100 WBC Auto (Bld) Ordered By: Anny Marin on 03-20-2023 Monocytes/100 WBC (Bld) 5.0 % . [facility] Neutrophils Auto (Bld) [#/Vo l]Ordered By: Anny Marin on 03-20-2023 Neutrophils (Bld) [#/Vol] 7.6 10*3/uL 1.8-7.7 [facility] Neutrophils/100 WBC Auto (Bl d)Ordered By: Anny Marin on 03-20-2023 Neutrophils/100 WBC (Bld) 77.1 % . [facility] No Panel InformationOrdered By: Anny Marin on 03-20-2023 Estimated GFR (CKD-EPI) > 60.0 mL/Min [facility] Creatinine Clearance (Chem N/A [facility] Nucleated erythrocytes [Pres ence] in Blood by Automated countOrdered By: Anny Marin on 03-20-2023 Nucleated RBC Auto Ql (Bld) 0.1 /100{WBC} 0-0.5 [facility] Phosphate [Mass/volume] in S yoav or PlasmaOrdered By: Anny Marin on 03-20-2023 Phosphate [Mass/Vol] 3.6 mg/dL 2.5-4.5 [facility] Platelet mean volume Auto (B ld) [Entitic vol]Ordered By: Anny Marin on 03-20-2023 Platelet mean volume (Bld) [Entitic vol] 9.3 fL 6.3-10.7 [facility] Platelets Auto (Bld) [#/Vol] Ordered By: Anny Tomas on 03-20-2023 Platelets (Bld) [#/Vol] 337 10*3/uL 150-450 [facility] Potassium [Moles/volume] in Serum or PlasmaOrdered By: Anny Marin on 03-20-2023 Potassium [Moles/Vol] 3.9 mmol/L 3.5-5.1 [facility] Prolactin [Mass/volume] in S yoav or PlasmaOrdered By: Anny Marin on 03-20-2023 Prolactin [Mass/Vol] 10.01 ng/mL 3.34-26.72 [facility] Protein [Mass/volume] in Ser um or PlasmaOrdered By: Anny Marin on 03-20-2023 Protein [Mass/Vol] 7.8 g/dL 6.4-8.9 [facility] RBC Auto (Bld) [#/Vol]Ordere d By: Anny Marin on 03-20-2023 RBC (Bld) [#/Vol] 5.02 10*6/uL 3.60-5.00 [facility] Serum or plasma albumin/glob ulin mass ratioOrdered By: Anny Marin on 03-20-2023 Albumin/Globulin [Mass ratio] 2.0 {ratio} [facility] Serum or plasma anion gap de terminationOrdered By: Anny Marin on 03-20-2023 Anion gap [Moles/Vol] 17.1 mmol/L 6.0-15.0 [facility] Sodium [Moles/volume] in Ser um or PlasmaOrdered By: Anny Marin on 03-20-2023 Sodium [Moles/Vol] 144 mmol/L 136-145 [facility] Thyrotropin [Units/volume] i n Serum or PlasmaOrdered By: Anny Marin on 03-20-2023 TSH Qn 1.00 m[IU]/L 0.45-5.33 [facility] Urea nitrogen [Mass/volume] in Serum or PlasmaOrdered By: Anny Marin on 03-20-2023 Urea nitrogen [Mass/Vol] 7 mg/dL 7-25 [facility] WBC Auto (Bld) [#/Vol]Ordere d By: Anny Marin on 03-20-2023 WBC (Bld) [#/Vol] 9.9 10*3/uL 3.8-11.6 [facility] Alanine aminotransferase [En zymatic activity/volume] in Serum or PlasmaOrdered By: Ismael Calderon on 03-13-2023 ALT [Catalytic activity/Vol] 12 U/L 7-52 [facility] Albumin [Mass/volume] in Ser um or Plasma by Bromocresol green (BCG) dye binding methoOrdered By: Ismael Calderon on 03-13-2023 Albumin BCG dye [Mass/Vol] 4.9 g/dL 3.5-5.7 [facility] Alkaline phosphatase [Enzyma tic activity/volume] in Serum or PlasmaOrdered By: Ismael Calderon on 03-13-2023 ALP [Catalytic activity/Vol] 38 U/L 34-104 [facility] Amphetamine Screen Ql (U)Ord ered By: Ismael Calderon on 03-13-2023 Amphetamines Ql (U) Negative Negative [facility] Aspartate aminotransferase [ Enzymatic activity/volume] in Serum or PlasmaOrdered By: Ismael Calderon on 03-13-2023 AST [Catalytic activity/Vol] 12 U/L 13-39 [facility] Automated erythrocytes count in urine sediment (number/area)Ordered By: Ismael Calderon on 03-13-2023 RBC Auto (Urine sed) [#/Area] 1-2 [HPF] 0-4 [facility] Automated leukocytes count i n urine sediment (number/area)Ordered By: Ismael Calderon on 03-13-2023 WBC Auto (Urine sed) [#/Area] 3-4 [HPF] 0-4 [facility] Barbiturates [Presence] in U rine by Screen methodOrdered By: Ismael Calderon on 03-13-2023 Barbiturates Screen Ql (U) Negative Negative [facility] Basophils Auto (Bld) [#/Vol] Ordered By: Ismael Calderon on 03-13-2023 Basophils (Bld) [#/Vol] 0.1 10*3/uL 0.0-0.2 [facility] Basophils/100 WBC Auto (Bld) Ordered By: Ismael Calderon on 03-13-2023 Basophils/100 WBC (Bld) 0.8 % . [facility] Benzodiazepines Screen Ql (U )Ordered By: Ismael Calderon on 03-13-2023 Benzodiazepines Ql (U) Negative Negative [facility] Benzoylecgonine [Presence] i n Urine by Screen methodOrdered By: Ismael Calderon on 03-13-2023 Benzoylecgonine Screen Ql (U) Negative Negative [facility] Bilirubin Test strip Ql (U)O rdered By: Ismael Calderon on 03-13-2023 Bilirubin Ql (U) Negative Negative [facility] Bilirubin.total [Mass/volume ] in Serum or PlasmaOrdered By: Ismael Calderon on 03-13-2023 Bilirubin [Mass/Vol] 0.6 mg/dL 0.3-1.0 [facility] Calcium [Mass/volume] in Ser um or PlasmaOrdered By: Ismael Calderon on 03-13-2023 Calcium [Mass/Vol] 9.5 mg/dL 8.6-10.3 [facility] Cannabinoids [Presence] in U rine by Screen methodOrdered By: Ismael Calderon on 03-13-2023 Cannabinoids Screen Ql (U) Positive Negative [facility] Comment on above: These are unconfirme d results and should not be used for legal purposes. Drug Cut-Off Concentration: AMPH 1000 ng/mL YISEL 200 ng/mL LUCA 200 ng/mL COCM 300 ng/mL OP 300 ng/mL PCP 25 ng/mL THC 20 ng/mL Carbon dioxide, total [Moles /volume] in Serum or PlasmaOrdered By: Ismael Calderon on 03-13-2023 CO2 [Moles/Vol] 22.9 mmol/L 21.0-31.0 [facility] Chloride [Moles/volume] in S yoav or PlasmaOrdered By: Ismael Calderon on 03-13-2023 Chloride [Moles/Vol] 108 mmol/L 98-107 [facility] Color Auto (U)Ordered By: Jacques Calderon on 03-13-2023 Color (U) Yellow Yellow [facility] Creatinine [Mass/volume] in Serum or PlasmaOrdered By: Imsael Calderon on 03-13-2023 Creatinine [Mass/Vol] 0.83 mg/dL 0.60-1.20 [facility] Eosinophils Auto (Bld) [#/Vo l]Ordered By: Ismael Calderon on 03-13-2023 Eosinophils (Bld) [#/Vol] 0.1 10*3/uL 0.0-0.45 [facility] Eosinophils/100 WBC Auto (Bl d)Ordered By: Ismael Calderon on 03-13-2023 Eosinophils/100 WBC (Bld) 1.0 % . [facility] Erythrocyte distribution wid th Auto (RBC) [Ratio]Ordered By: Ismael Calderon on 03-13-2023 Erythrocyte distribution width (RBC) [Ratio] 13.9 % 11.9-15.3 [facility] Ethanol [Mass/volume] in Ser um or PlasmaOrdered By: Ismael Calderon on 03-13-2023 Ethanol [Mass/Vol] mg/dL [facility] Ethanol [Mass/Vol] TNP [facility] Comment on above: Test not performed Globulin Calc (S) [Mass/Vol] Ordered By: Ismael Calderon on 03-13-2023 Globulin (S) [Mass/Vol] 2.4 g/dL [facility] Glucose [Mass/volume] in Ser um or PlasmaOrdered By: Ismael Calderon on 03-13-2023 Glucose [Mass/Vol] 98 mg/dL 70-100 [facility] Comment on above: ADA recommended refe rence rangeRandom Glucose Reference Range is dependent on time and content of last meal. Glucose of more than 200 mg/dL in a nonstressed, ambulatory subject supports the diagnosis of Diabetes Mellitus. HCG ( test) IA.rapi d Ql (U)Ordered By: Ismael Calderon on 03-13-2023 HCG ( test) Ql (U) Negative [facility] Hematocrit Auto (Bld) [Volum e fraction]Ordered By: Ismael Calderon on 03-13-2023 Hematocrit (Bld) [Volume fraction] 45.9 % 34.0-46.4 [facility] Hemoglobin [Mass/volume] in BloodOrdered By: Ismael Calderon on 03-13-2023 Hemoglobin (Bld) [Mass/Vol] 15.8 g/dL 11.8-15.4 [facility] Ketones Auto test strip (U) [Mass/Vol]Ordered By: Ismael Calderon on 03-13-2023 Ketones (U) [Mass/Vol] 1+ Negative [facility] - UrinalysisOrder ed By: Ismael Calderon on 03-13-2023 Hyaline casts LM Ql (Urine sed) 0-8 [LPF] 0-8 [facility] Leukocytes [#/volume] correc kitty for nucleated erythrocytes in Blood by Automated counOrdered By: Ismael Calderon on 03-13-2023 WBC corrected for nucl RBC Auto (Bld) [#/Vol] 8.3 10*3/uL 3.8-11.6 [facility] Lymphocytes Auto (Bld) [#/Vo l]Ordered By: Ismael Calderon on 03-13-2023 Lymphocytes (Bld) [#/Vol] 1.3 10*3/uL 1.00-4.8 [facility] Lymphocytes/100 WBC Auto (Bl d)Ordered By: Ismael Calderon on 03-13-2023 Lymphocytes/100 WBC (Bld) 15.9 % . [facility] MCH Auto (RBC) [Entitic mass ]Ordered By: Ismael Calderon on 03-13-2023 MCH (RBC) [Entitic mass] 31.7 pg 24.7-34.3 [facility] MCHC Auto (RBC) [Mass/Vol]Or dered By: Ismael Calderon on 03-13-2023 MCHC (RBC) [Mass/Vol] 34.4 g/dL 32.0-35.0 [facility] MCV Auto (RBC) [Entitic vol] Ordered By: Ismael Calderon on 03-13-2023 MCV (RBC) [Entitic vol] 92.2 fL 80-100 [facility] Monocyte distribution width [Entitic volume] in Blood by AutomatedOrdered By: Ismael Calderon on 03-13-2023 Monocyte distribution width Auto (Bld) [Entitic vol] 16.49 % 0.00-20.00 [facility] Monocytes Auto (Bld) [#/Vol] Ordered By: Ismael Calderon on 03-13-2023 Monocytes (Bld) [#/Vol] 0.4 10*3/uL 0.0-0.8 [facility] Monocytes/100 WBC Auto (Bld) Ordered By: Ismael Calderon on 03-13-2023 Monocytes/100 WBC (Bld) 4.2 % . [facility] Neutrophils Auto (Bld) [#/Vo l]Ordered By: Ismael Calderon on 03-13-2023 Neutrophils (Bld) [#/Vol] 6.5 10*3/uL 1.8-7.7 [facility] Neutrophils/100 WBC Auto (Bl d)Ordered By: Ismael Calderon on 03-13-2023 Neutrophils/100 WBC (Bld) 78.1 % . [facility] Nitrite Test strip Ql (U)Ord ered By: Ismael Calderon on 03-13-2023 Nitrite Ql (U) Negative Negative [facility] No Panel InformationOrdered By: Ismael Calderon on 03-13-2023 Estimated GFR (CKD-EPI) > 60.0 mL/Min [facility] Creatinine Clearance (Chem 87.09 [facility] Nucleated erythrocytes [Pres ence] in Blood by Automated countOrdered By: Ismael Calderon on 03-13-2023 Nucleated RBC Auto Ql (Bld) 0.0 /100{WBC} 0-0.5 [facility] Opiates [Presence] in Urine by Screen methodOrdered By: Ismael Calderon on 03-13-2023 Opiates Screen Ql (U) Negative Negative [facility] Phencyclidine Screen Ql (U)O rdered By: Ismael Calderon on 03-13-2023 Phencyclidine Ql (U) Negative Negative [facility] Platelet mean volume Auto (B ld) [Entitic vol]Ordered By: Ismael Calderon on 03-13-2023 Platelet mean volume (Bld) [Entitic vol] 9.7 fL 6.3-10.7 [facility] Platelets Auto (Bld) [#/Vol] Ordered By: Ismael Calderon on 03-13-2023 Platelets (Bld) [#/Vol] 252 10*3/uL 150-450 [facility] Potassium [Moles/volume] in Serum or PlasmaOrdered By: Ismael Calderon on 03-13-2023 Potassium [Moles/Vol] 3.6 mmol/L 3.5-5.1 [facility] Protein Auto test strip (U) [Mass/Vol]Ordered By: Ismael Calderon on 03-13-2023 Protein (U) [Mass/Vol] Negative Negative [facility] Protein [Mass/volume] in Ser um or PlasmaOrdered By: Ismael Calderon on 03-13-2023 Protein [Mass/Vol] 7.3 g/dL 6.4-8.9 [facility] RBC Auto (Bld) [#/Vol]Ordere d By: Ismael Calderon on 03-13-2023 RBC (Bld) [#/Vol] 4.98 10*6/uL 3.60-5.00 [facility] Serum or plasma albumin/glob ulin mass ratioOrdered By: Ismale Calderon on 03-13-2023 Albumin/Globulin [Mass ratio] 2.0 {ratio} [facility] Serum or plasma anion gap de terminationOrdered By: Ismael Calderon on 03-13-2023 Anion gap [Moles/Vol] 13.7 mmol/L 6.0-15.0 [facility] Sodium [Moles/volume] in Ser um or PlasmaOrdered By: Ismael Calderon on 03-13-2023 Sodium [Moles/Vol] 141 mmol/L 136-145 [facility] Specific gravity Auto test s trip (U) [Rel density]Ordered By: Ismael Calderon on 03-13-2023 Specific gravity (U) [Rel density] 1.009 1.001-1.030 [facility] Squamous epithelial cells de tection in urine sediment by light microscopyOrdered By: Ismael Calderon on 03-13-2023 Epithelial cells.squamous LM Ql (Urine sed) 5-9 [HPF] 0-2 [facility] Urea nitrogen [Mass/volume] in Serum or PlasmaOrdered By: Ismael Calderon on 03-13-2023 Urea nitrogen [Mass/Vol] 10 mg/dL 7-25 [facility] Urine bacteria detection by automated methodOrdered By: Ismael Calderon on 03-13-2023 Bacteria Auto Ql (U) None seen None Seen [facility] Urine clarity by refractomet ry automatedOrdered By: Ismael Caldeorn on 03-13-2023 Clarity Refractometry automated (U) Cloudy Clear [facility] Urine glucose measurement by automated test strip (mass/volume)Ordered By: Ismael Calderon on 03-13-2023 Glucose Auto test strip (U) [Mass/Vol] Normal mg/dL Normal [facility] Urine hemoglobin detection b y automated test stripOrdered By: Ismael Calderon on 03-13-2023 Hemoglobin Auto test strip Ql (U) Trace Negative [facility] Urine leukocyte esterase det ection by automated test stripOrdered By: Ismael Calderon on 03-13-2023 Leukocyte esterase Auto test strip Ql (U) Negative Negative [facility] Urobilinogen Auto test strip (U) [Mass/Vol]Ordered By: Ismael Calderon on 03-13-2023 Urobilinogen (U) [Mass/Vol] Normal mg/dL Normal [facility] WBC Auto (Bld) [#/Vol]Ordere d By: Ismael Calderon on 03-13-2023 WBC (Bld) [#/Vol] 8.3 10*3/uL 3.8-11.6 [facility] pH Auto test strip (U)Ordere d By: Ismael Calderon on 03-13-2023 pH (U) 5.5 [pH] 5.0-9.0 [facility] Alanine aminotransferase [En zymatic activity/volume] in Serum or PlasmaOrdered By: Estuardo Hardin on 03-11-2023 ALT [Catalytic activity/Vol] 14 U/L 7-52 [facility] Albumin [Mass/volume] in Ser um or Plasma by Bromocresol green (BCG) dye binding methoOrdered By: Estuardo Hardin on 03-11-2023 Albumin BCG dye [Mass/Vol] 4.6 g/dL 3.5-5.7 [facility] Alkaline phosphatase [Enzyma tic activity/volume] in Serum or PlasmaOrdered By: Estuardo Hardin on 03-11-2023 ALP [Catalytic activity/Vol] 40 U/L 34-104 [facility] Amphetamine Screen Ql (U)Ord ered By: Estuardo Hardin on 03-11-2023 Amphetamines Ql (U) Negative Negative [facility] Aspartate aminotransferase [ Enzymatic activity/volume] in Serum or PlasmaOrdered By: Estuardo Hardin on 03-11-2023 AST [Catalytic activity/Vol] 13 U/L 13-39 [facility] Automated erythrocytes count in urine sediment (number/area)Ordered By: Estuardo Hardin on 03-11-2023 RBC Auto (Urine sed) [#/Area] 0-1 [HPF] 0-4 [facility] Automated leukocytes count i n urine sediment (number/area)Ordered By: Estuardo Hardin on 03-11-2023 WBC Auto (Urine sed) [#/Area] 0-1 [HPF] 0-4 [facility] Barbiturates [Presence] in U rine by Screen methodOrdered By: Estuardo Hardin on 03-11-2023 Barbiturates Screen Ql (U) Negative Negative [facility] Basophils Auto (Bld) [#/Vol] Ordered By: Estuardo Hardin on 03-11-2023 Basophils (Bld) [#/Vol] 0.1 10*3/uL 0.0-0.2 [facility] Basophils/100 WBC Auto (Bld) Ordered By: Estuardo Hardin on 03-11-2023 Basophils/100 WBC (Bld) 1.0 % . [facility] Benzodiazepines Screen Ql (U )Ordered By: Estuardo Hardin on 03-11-2023 Benzodiazepines Ql (U) Negative Negative [facility] Benzoylecgonine [Presence] i n Urine by Screen methodOrdered By: Estuardo Hardin on 03-11-2023 Benzoylecgonine Screen Ql (U) Negative Negative [facility] Bilirubin Test strip Ql (U)O rdered By: Estuardo Hardin on 03-11-2023 Bilirubin Ql (U) Negative Negative [facility] Bilirubin.total [Mass/volume ] in Serum or PlasmaOrdered By: Estuardo Hardin on 03-11-2023 Bilirubin [Mass/Vol] 0.5 mg/dL 0.3-1.0 [facility] Calcium [Mass/volume] in Ser um or PlasmaOrdered By: Estuardo Hardin on 03-11-2023 Calcium [Mass/Vol] 9.9 mg/dL 8.6-10.3 [facility] Cannabinoids [Presence] in U rine by Screen methodOrdered By: Estuardo Hardin on 03-11-2023 Cannabinoids Screen Ql (U) Positive Negative [facility] Comment on above: These are unconfirme d results and should not be used for legal purposes. Drug Cut-Off Concentration: AMPH 1000 ng/mL YISEL 200 ng/mL LUCA 200 ng/mL COCM 300 ng/mL OP 300 ng/mL PCP 25 ng/mL THC 20 ng/mL Carbon dioxide, total [Moles /volume] in Serum or PlasmaOrdered By: Estuardo Hardin on 03-11-2023 CO2 [Moles/Vol] 22.8 mmol/L 21.0-31.0 [facility] Chloride [Moles/volume] in S yoav or PlasmaOrdered By: Estuardo Hardin on 03-11-2023 Chloride [Moles/Vol] 107 mmol/L 98-107 [facility] Color Auto (U)Ordered By: Tono red Lashawn on 03-11-2023 Color (U) Yellow Yellow [facility] Creatinine [Mass/volume] in Serum or PlasmaOrdered By: Estuardo Hardin on 03-11-2023 Creatinine [Mass/Vol] 0.88 mg/dL 0.60-1.20 [facility] Eosinophils Auto (Bld) [#/Vo l]Ordered By: Estuardo Hardin on 03-11-2023 Eosinophils (Bld) [#/Vol] 0.1 10*3/uL 0.0-0.45 [facility] Eosinophils/100 WBC Auto (Bl d)Ordered By: Estuardo Hardin on 03-11-2023 Eosinophils/100 WBC (Bld) 1.5 % . [facility] Erythrocyte distribution wid th Auto (RBC) [Ratio]Ordered By: Estuardo Hardin on 03-11-2023 Erythrocyte distribution width (RBC) [Ratio] 14.2 % 11.9-15.3 [facility] Ethanol [Mass/volume] in Ser um or PlasmaOrdered By: Estuardo Hardin on 03-11-2023 Ethanol [Mass/Vol] mg/dL [facility] Ethanol [Mass/Vol] TNP [facility] Comment on above: Test not performed Globulin Calc (S) [Mass/Vol] Ordered By: Estuardo Hardin on 03-11-2023 Globulin (S) [Mass/Vol] 2.5 g/dL [facility] Glucose [Mass/volume] in Ser um or PlasmaOrdered By: Estuardo Hardin on 03-11-2023 Glucose [Mass/Vol] 88 mg/dL 70-100 [facility] Comment on above: ADA recommended refe rence rangeRandom Glucose Reference Range is dependent on time and content of last meal. Glucose of more than 200 mg/dL in a nonstressed, ambulatory subject supports the diagnosis of Diabetes Mellitus. HCG ( test) IA.rapi d Ql (U)Ordered By: Estuardo Hardin on 03-11-2023 HCG ( test) Ql (U) Negative [facility] Hematocrit Auto (Bld) [Volum e fraction]Ordered By: Estuardo Hardin on 03-11-2023 Hematocrit (Bld) [Volume fraction] 44.6 % 34.0-46.4 [facility] Hemoglobin [Mass/volume] in BloodOrdered By: Estuardo Hardin on 03-11-2023 Hemoglobin (Bld) [Mass/Vol] 15.2 g/dL 11.8-15.4 [facility] Ketones Auto test strip (U) [Mass/Vol]Ordered By: Estuardo Hardin on 03-11-2023 Ketones (U) [Mass/Vol] Negative Negative [facility] - UrinalysisOrder ed By: Estuardo Hardin on 03-11-2023 Hyaline casts LM Ql (Urine sed) 0-8 [LPF] 0-8 [facility] Leukocytes [#/volume] correc kitty for nucleated erythrocytes in Blood by Automated counOrdered By: Estuardo Hardin on 03-11-2023 WBC corrected for nucl RBC Auto (Bld) [#/Vol] 8.4 10*3/uL 3.8-11.6 [facility] Lymphocytes Auto (Bld) [#/Vo l]Ordered By: Estuardo Hardin on 03-11-2023 Lymphocytes (Bld) [#/Vol] 1.3 10*3/uL 1.00-4.8 [facility] Lymphocytes/100 WBC Auto (Bl d)Ordered By: Estuardo Hardin on 03-11-2023 Lymphocytes/100 WBC (Bld) 15.9 % . [facility] MCH Auto (RBC) [Entitic mass ]Ordered By: Estuardo Hardin on 03-11-2023 MCH (RBC) [Entitic mass] 31.6 pg 24.7-34.3 [facility] MCHC Auto (RBC) [Mass/Vol]Or dered By: Estuardo Hardin on 03-11-2023 MCHC (RBC) [Mass/Vol] 34.1 g/dL 32.0-35.0 [facility] MCV Auto (RBC) [Entitic vol] Ordered By: Estuardo Hardin on 03-11-2023 MCV (RBC) [Entitic vol] 92.7 fL 80-100 [facility] Monocyte distribution width [Entitic volume] in Blood by AutomatedOrdered By: Estuardo Hardin on 03-11-2023 Monocyte distribution width Auto (Bld) [Entitic vol] 14.28 % 0.00-20.00 [facility] Monocytes Auto (Bld) [#/Vol] Ordered By: Estuardo Hardin on 03-11-2023 Monocytes (Bld) [#/Vol] 0.4 10*3/uL 0.0-0.8 [facility] Monocytes/100 WBC Auto (Bld) Ordered By: Estuardo Hardin on 03-11-2023 Monocytes/100 WBC (Bld) 4.7 % . [facility] Neutrophils Auto (Bld) [#/Vo l]Ordered By: Estuardo Hardin on 03-11-2023 Neutrophils (Bld) [#/Vol] 6.5 10*3/uL 1.8-7.7 [facility] Neutrophils/100 WBC Auto (Bl d)Ordered By: Estuardo Hardin on 03-11-2023 Neutrophils/100 WBC (Bld) 76.9 % . [facility] Nitrite Test strip Ql (U)Ord ered By: Estuardo Hardin on 03-11-2023 Nitrite Ql (U) Negative Negative [facility] No Panel InformationOrdered By: Estuardo Hardin on 03-11-2023 Estimated GFR (CKD-EPI) > 60.0 mL/Min [facility] Creatinine Clearance (Chem 82.61 [facility] Nucleated erythrocytes [Pres ence] in Blood by Automated countOrdered By: Estuardo Hardin on 03-11-2023 Nucleated RBC Auto Ql (Bld) 0.1 /100{WBC} 0-0.5 [facility] Opiates [Presence] in Urine by Screen methodOrdered By: Estuardo Hardin on 03-11-2023 Opiates Screen Ql (U) Negative Negative [facility] Phencyclidine Screen Ql (U)O rdered By: Estuardo Hardin on 03-11-2023 Phencyclidine Ql (U) Negative Negative [facility] Platelet adequacy [Presence] in Blood by Light microscopyOrdered By: Estuardo Hardin on 03-11-2023 Platelets LM Ql (Bld) Normal Normal [facility] Platelet mean volume Auto (B ld) [Entitic vol]Ordered By: Estuardo Hardin on 03-11-2023 Platelet mean volume (Bld) [Entitic vol] 10.0 fL 6.3-10.7 [facility] Platelet morphology finding [Identifier] in BloodOrdered By: Estuardo Hardin on 03-11-2023 Platelet morphology finding Nom (Bld) Normal Normal [facility] Platelets Auto (Bld) [#/Vol] Ordered By: Estuardo Hardin on 03-11-2023 Platelets (Bld) [#/Vol] 223 10*3/uL 150-450 [facility] Potassium [Moles/volume] in Serum or PlasmaOrdered By: Estuardo Hardin on 03-11-2023 Potassium [Moles/Vol] 3.7 mmol/L 3.5-5.1 [facility] Protein Auto test strip (U) [Mass/Vol]Ordered By: Estuardo Hardin on 03-11-2023 Protein (U) [Mass/Vol] Negative Negative [facility] Protein [Mass/volume] in Ser um or PlasmaOrdered By: Estuardo Hardin on 03-11-2023 Protein [Mass/Vol] 7.1 g/dL 6.4-8.9 [facility] RBC Auto (Bld) [#/Vol]Ordere d By: Estuardo Hardin on 03-11-2023 RBC (Bld) [#/Vol] 4.81 10*6/uL 3.60-5.00 [facility] RBC morphologyOrdered By: Tono Hardin on 03-11-2023 RBC morphology finding Nom (Bld) Normal Normal [facility] Serum or plasma albumin/glob ulin mass ratioOrdered By: Estuardo Hardin on 03-11-2023 Albumin/Globulin [Mass ratio] 1.8 {ratio} [facility] Serum or plasma anion gap de terminationOrdered By: Estuardo Hardin on 03-11-2023 Anion gap [Moles/Vol] 13.9 mmol/L 6.0-15.0 [facility] Sodium [Moles/volume] in Ser um or PlasmaOrdered By: Estuardo Hardin on 03-11-2023 Sodium [Moles/Vol] 140 mmol/L 136-145 [facility] Specific gravity Auto test s trip (U) [Rel density]Ordered By: Estuardo Hardin on 03-11-2023 Specific gravity (U) [Rel density] 1.010 1.001-1.030 [facility] Squamous epithelial cells de tection in urine sediment by light microscopyOrdered By: Estuardo Hardin on 03-11-2023 Epithelial cells.squamous LM Ql (Urine sed) 3-4 [HPF] 0-2 [facility] Urea nitrogen [Mass/volume] in Serum or PlasmaOrdered By: Estuardo Hardin on 03-11-2023 Urea nitrogen [Mass/Vol] 6 mg/dL 7-25 [facility] Urine bacteria detection by automated methodOrdered By: Estuardo Hardin on 03-11-2023 Bacteria Auto Ql (U) None seen None Seen [facility] Urine clarity by refractomet ry automatedOrdered By: Estuardo Hardin on 03-11-2023 Clarity Refractometry automated (U) Clear Clear [facility] Urine glucose measurement by automated test strip (mass/volume)Ordered By: Estuardo Hardin on 03-11-2023 Glucose Auto test strip (U) [Mass/Vol] Normal mg/dL Normal [facility] Urine hemoglobin detection b y automated test stripOrdered By: Estuardo Hardin on 03-11-2023 Hemoglobin Auto test strip Ql (U) 2+ Negative [facility] Urine leukocyte esterase det ection by automated test stripOrdered By: Estuardo Hardin on 03-11-2023 Leukocyte esterase Auto test strip Ql (U) Negative Negative [facility] Urobilinogen Auto test strip (U) [Mass/Vol]Ordered By: Estuardo Hardin on 03-11-2023 Urobilinogen (U) [Mass/Vol] Normal mg/dL Normal [facility] WBC Auto (Bld) [#/Vol]Ordere d By: Estuardo Hardin on 03-11-2023 WBC (Bld) [#/Vol] 8.4 10*3/uL 3.8-11.6 [facility] pH Auto test strip (U)Ordere d By: Estuardo Hardin on 03-11-2023 pH (U) 6.0 [pH] 5.0-9.0 [facility] Alanine aminotransferase [En zymatic activity/volume] in Serum or PlasmaOrdered By: Elian Langston on 01-22-2023 ALT [Catalytic activity/Vol] 13 U/L 7-52 [facility] Albumin [Mass/volume] in Ser um or Plasma by Bromocresol green (BCG) dye binding methoOrdered By: Elian Langston on 01-22-2023 Albumin BCG dye [Mass/Vol] 4.8 g/dL 3.5-5.7 [facility] Alkaline phosphatase [Enzyma tic activity/volume] in Serum or PlasmaOrdered By: Elian Langston on 01-22-2023 ALP [Catalytic activity/Vol] 49 U/L 34-104 [facility] Aspartate aminotransferase [ Enzymatic activity/volume] in Serum or PlasmaOrdered By: Elian Langston on 01-22-2023 AST [Catalytic activity/Vol] 15 U/L 13-39 [facility] Automated erythrocytes count in urine sediment (number/area)Ordered By: Elian Langston on 01-22-2023 RBC Auto (Urine sed) [#/Area] 10-19 [HPF] 0-4 [facility] Automated leukocytes count i n urine sediment (number/area)Ordered By: Elian Langston on 01-22-2023 WBC Auto (Urine sed) [#/Area] 3-4 [HPF] 0-4 [facility] Automated urine sediment shyam cium oxalate crystal count by microscopy (number/high powOrdered By: Elian Langston on 01-22-2023 Calcium oxalate crystals LM.HPF (Urine sed) [#/Area] 3+ [HPF] [facility] Basophils Auto (Bld) [#/Vol] Ordered By: Elian Langston on 01-22-2023 Basophils (Bld) [#/Vol] 0.0 10*3/uL 0.0-0.2 [facility] Basophils/100 WBC Auto (Bld) Ordered By: Elian Langston on 01-22-2023 Basophils/100 WBC (Bld) 0.5 % . [facility] Bilirubin Test strip Ql (U)O rdered By: Elian Langston on 01-22-2023 Bilirubin Ql (U) Negative Negative [facility] Bilirubin.total [Mass/volume ] in Serum or PlasmaOrdered By: Elian Langston on 01-22-2023 Bilirubin [Mass/Vol] 0.5 mg/dL 0.3-1.0 [facility] Calcium [Mass/volume] in Ser um or PlasmaOrdered By: Elian Langston on 01-22-2023 Calcium [Mass/Vol] 9.5 mg/dL 8.6-10.3 [facility] Carbon dioxide, total [Moles /volume] in Serum or PlasmaOrdered By: Elian Langston on 01-22-2023 CO2 [Moles/Vol] 20.2 mmol/L 21.0-31.0 [facility] Chloride [Moles/volume] in S yoav or PlasmaOrdered By: Elian Langston on 01-22-2023 Chloride [Moles/Vol] 104 mmol/L 98-107 [facility] Color Auto (U)Ordered By: Rob Langston on 01-22-2023 Color (U) Yellow Yellow [facility] Creatinine [Mass/volume] in Serum or PlasmaOrdered By: Elian Langston on 01-22-2023 Creatinine [Mass/Vol] 0.92 mg/dL 0.60-1.20 [facility] Eosinophils Auto (Bld) [#/Vo l]Ordered By: Elian Langston on 01-22-2023 Eosinophils (Bld) [#/Vol] 0.0 10*3/uL 0.0-0.45 [facility] Eosinophils/100 WBC Auto (Bl d)Ordered By: Elian Langston on 01-22-2023 Eosinophils/100 WBC (Bld) 0.3 % . [facility] Erythrocyte distribution wid th Auto (RBC) [Ratio]Ordered By: Elian Langston on 01-22-2023 Erythrocyte distribution width (RBC) [Ratio] 12.7 % 11.9-15.3 [facility] Globulin Calc (S) [Mass/Vol] Ordered By: Elian Langston on 01-22-2023 Globulin (S) [Mass/Vol] 3.0 g/dL [facility] Glucose [Mass/volume] in Ser um or PlasmaOrdered By: Elian Langston on 01-22-2023 Glucose [Mass/Vol] 81 mg/dL 70-100 [facility] Comment on above: ADA recommended refe rence rangeRandom Glucose Reference Range is dependent on time and content of last meal. Glucose of more than 200 mg/dL in a nonstressed, ambulatory subject supports the diagnosis of Diabetes Mellitus. HCG ( test) IA.rapi d Ql (U)Ordered By: Elian Langston on 01-22-2023 HCG ( test) Ql (U) Negative [facility] Hematocrit Auto (Bld) [Volum e fraction]Ordered By: Elian Langston on 01-22-2023 Hematocrit (Bld) [Volume fraction] 46.6 % 34.0-46.4 [facility] Hemoglobin [Mass/volume] in BloodOrdered By: Elian Langston on 01-22-2023 Hemoglobin (Bld) [Mass/Vol] 15.9 g/dL 11.8-15.4 [facility] Ketones Auto test strip (U) [Mass/Vol]Ordered By: Elian Langston on 01-22-2023 Ketones (U) [Mass/Vol] 4+ Negative [facility] Laboratory - UrinalysisOrder ed By: Elian Langston on 01-22-2023 Hyaline casts LM Ql (Urine sed) 0-8 [LPF] 0-8 [facility] Leukocytes [#/volume] correc kitty for nucleated erythrocytes in Blood by Automated counOrdered By: Elian Langston on 01-22-2023 WBC corrected for nucl RBC Auto (Bld) [#/Vol] 8.5 10*3/uL 3.8-11.6 [facility] Lipase [Enzymatic activity/v olume] in Serum or PlasmaOrdered By: Elian Langston on 01-22-2023 Lipase [Catalytic activity/Vol] 11.0 U/L 11.0-82.0 [facility] Lymphocytes Auto (Bld) [#/Vo l]Ordered By: Elian Langston on 01-22-2023 Lymphocytes (Bld) [#/Vol] 1.3 10*3/uL 1.00-4.8 [facility] Lymphocytes/100 WBC Auto (Bl d)Ordered By: Elian Langston on 01-22-2023 Lymphocytes/100 WBC (Bld) 15.4 % . [facility] MCH Auto (RBC) [Entitic mass ]Ordered By: Elian Langston on 01-22-2023 MCH (RBC) [Entitic mass] 31.3 pg 24.7-34.3 [facility] MCHC Auto (RBC) [Mass/Vol]Or dered By: Elian Langston on 01-22-2023 MCHC (RBC) [Mass/Vol] 34.1 g/dL 32.0-35.0 [facility] MCV Auto (RBC) [Entitic vol] Ordered By: Elian Langston on 01-22-2023 MCV (RBC) [Entitic vol] 91.7 fL 80-100 [facility] Magnesium [Mass/volume] in S yoav or PlasmaOrdered By: Elian Langston on 01-22-2023 Magnesium [Mass/Vol] 1.8 mg/dL 1.9-2.7 [facility] Monocyte distribution width [Entitic volume] in Blood by AutomatedOrdered By: Elian Langston on 01-22-2023 Monocyte distribution width Auto (Bld) [Entitic vol] 14.54 % 0.00-20.00 [facility] Monocytes Auto (Bld) [#/Vol] Ordered By: Elian Langston on 01-22-2023 Monocytes (Bld) [#/Vol] 0.2 10*3/uL 0.0-0.8 [facility] Monocytes/100 WBC Auto (Bld) Ordered By: Elian Langston on 01-22-2023 Monocytes/100 WBC (Bld) 2.8 % . [facility] Neutrophils Auto (Bld) [#/Vo l]Ordered By: Elian Langston on 01-22-2023 Neutrophils (Bld) [#/Vol] 6.9 10*3/uL 1.8-7.7 [facility] Neutrophils/100 WBC Auto (Bl d)Ordered By: Elian Langston on 01-22-2023 Neutrophils/100 WBC (Bld) 81.0 % . [facility] Nitrite Test strip Ql (U)Ord ered By: Elian Langston on 01-22-2023 Nitrite Ql (U) Negative Negative [facility] No Panel InformationOrdered By: Elian Langston on 01-22-2023 Estimated GFR (CKD-EPI) > 60.0 mL/Min [facility] Creatinine Clearance (Chem 81.98 [facility] Nucleated erythrocytes [Pres ence] in Blood by Automated countOrdered By: Elian Langston on 01-22-2023 Nucleated RBC Auto Ql (Bld) 0.1 /100{WBC} 0-0.5 [facility] Platelet mean volume Auto (B ld) [Entitic vol]Ordered By: Elian Langston on 01-22-2023 Platelet mean volume (Bld) [Entitic vol] 10.2 fL 6.3-10.7 [facility] Platelets Auto (Bld) [#/Vol] Ordered By: Elian Langston on 01-22-2023 Platelets (Bld) [#/Vol] 292 10*3/uL 150-450 [facility] Potassium [Moles/volume] in Serum or PlasmaOrdered By: Elian Langston on 01-22-2023 Potassium [Moles/Vol] 3.6 mmol/L 3.5-5.1 [facility] Protein Auto test strip (U) [Mass/Vol]Ordered By: Elian Langston on 01-22-2023 Protein (U) [Mass/Vol] 30 mg/dL Negative [facility] Protein [Mass/volume] in Ser um or PlasmaOrdered By: Elian Langston on 01-22-2023 Protein [Mass/Vol] 7.8 g/dL 6.4-8.9 [facility] RBC Auto (Bld) [#/Vol]Ordere d By: Elian Langston on 01-22-2023 RBC (Bld) [#/Vol] 5.08 10*6/uL 3.60-5.00 [facility] Serum or plasma albumin/glob ulin mass ratioOrdered By: Elian Langston on 01-22-2023 Albumin/Globulin [Mass ratio] 1.6 {ratio} [facility] Serum or plasma anion gap de terminationOrdered By: Elian Langston on 01-22-2023 Anion gap [Moles/Vol] 21.4 mmol/L 6.0-15.0 [facility] Sodium [Moles/volume] in Ser um or PlasmaOrdered By: Elian Langston on 01-22-2023 Sodium [Moles/Vol] 142 mmol/L 136-145 [facility] Specific gravity Auto test s trip (U) [Rel density]Ordered By: Elian Langston on 01-22-2023 Specific gravity (U) [Rel density] 1.036 1.001-1.030 [facility] Squamous epithelial cells de tection in urine sediment by light microscopyOrdered By: Elian Langston on 01-22-2023 Epithelial cells.squamous LM Ql (Urine sed) 5-9 [HPF] 0-2 [facility] Urea nitrogen [Mass/volume] in Serum or PlasmaOrdered By: Elian Langston on 01-22-2023 Urea nitrogen [Mass/Vol] 10 mg/dL 7-25 [facility] Urine bacteria detection by automated methodOrdered By: Elian Langston on 01-22-2023 Bacteria Auto Ql (U) 1+ None Seen [facility] Urine clarity by refractomet ry automatedOrdered By: Elian Langston on 01-22-2023 Clarity Refractometry automated (U) Cloudy Clear [facility] Urine glucose measurement by automated test strip (mass/volume)Ordered By: Elian Langston on 01-22-2023 Glucose Auto test strip (U) [Mass/Vol] Normal mg/dL Normal [facility] Urine hemoglobin detection b y automated test stripOrdered By: Elian Langston on 01-22-2023 Hemoglobin Auto test strip Ql (U) Negative Negative [facility] Urine leukocyte esterase det ection by automated test stripOrdered By: Elian Langston on 01-22-2023 Leukocyte esterase Auto test strip Ql (U) Negative Negative [facility] Urine sediment crystal ident ification by light microscopyOrdered By: Elian Langston on 01-22-2023 Crystals LM Nom (Urine sed) None seen [HPF] [facility] Urobilinogen Auto test strip (U) [Mass/Vol]Ordered By: Elian Langston on 01-22-2023 Urobilinogen (U) [Mass/Vol] Normal mg/dL Normal [facility] WBC Auto (Bld) [#/Vol]Ordere d By: Elian Langston on 01-22-2023 WBC (Bld) [#/Vol] 8.5 10*3/uL 3.8-11.6 [facility] pH Auto test strip (U)Ordere d By: Elian Langston on 01-22-2023 pH (U) 5.5 [pH] 5.0-9.0 [facility] CNPNon 11-14-2022 CNPN Normal [facility] Franquez [Moles/volume] in Se rum or PlasmaOrdered By: hPillip Davis on 10-20-2022 Franquez [Moles/Vol] 0.70 mmol/L 0.60-1.20 [facility] Glucose Glucometer (BldC) [M ass/Vol]Ordered By: Brent Simmons on 10-19-2022 Glucose [Mass/Vol] 153 mg/dL [facility] Comment on above: Random Glucose Refer ence Range is dependent on time and content of last meal. Glucose of more than 200 mg/dL in a nonstressed, ambulatory subject supports the diagnosis of Diabetes Mellitus. Alanine aminotransferase [En zymatic activity/volume] in Serum or PlasmaOrdered By: Bogdan Barnes on 10-09-2022 ALT [Catalytic activity/Vol] 14 U/L 7 [facility] Albumin [Mass/volume] in Ser um or Plasma by Bromocresol green (BCG) dye binding methoOrdered By: Bogdan Barnes on 10-09-2022 Albumin BCG dye [Mass/Vol] 4.7 g/dL 3.5-5.7 [facility] Alkaline phosphatase [Enzyma tic activity/volume] in Serum or PlasmaOrdered By: Bogdan Barnes on 10-09-2022 ALP [Catalytic activity/Vol] 44 U/L 34-104 [facility] Amphetamine Screen Ql (U)Ord ered By: Bogdan Barnes on 10-09-2022 Amphetamines Ql (U) Negative Negative [facility] Aspartate aminotransferase [ Enzymatic activity/volume] in Serum or PlasmaOrdered By: Bogdan Barnes on 10-09-2022 AST [Catalytic activity/Vol] 15 U/L 13-39 [facility] Automated erythrocytes count in urine sediment (number/area)Ordered By: Bogdan Barnes on 10-09-2022 RBC Auto (Urine sed) [#/Area] 1-2 [HPF] 0-4 [facility] Automated leukocytes count i n urine sediment (number/area)Ordered By: Bogdan Barnes on 10-09-2022 WBC Auto (Urine sed) [#/Area] 5-9 [HPF] 0-4 [facility] Barbiturates [Presence] in U rine by Screen methodOrdered By: Bogdan Barnes on 10-09-2022 Barbiturates Screen Ql (U) Negative Negative [facility] Basophils Auto (Bld) [#/Vol] Ordered By: Bogdan Barnes on 10-09-2022 Basophils (Bld) [#/Vol] 0.1 10*3/uL 0.0-0.2 [facility] Basophils/100 WBC Auto (Bld) Ordered By: Bogdan Barnes on 10-09-2022 Basophils/100 WBC (Bld) 0.8 % . [facility] Benzodiazepines Screen Ql (U )Ordered By: Bogdan Barnes on 10-09-2022 Benzodiazepines Ql (U) Negative Negative [facility] Benzoylecgonine [Presence] i n Urine by Screen methodOrdered By: Bogdan Barnes on 10-09-2022 Benzoylecgonine Screen Ql (U) Negative Negative [facility] Bilirubin Test strip Ql (U)O rdered By: Bogdan Barnes on 10-09-2022 Bilirubin Ql (U) Negative Negative [facility] Bilirubin.total [Mass/volume ] in Serum or PlasmaOrdered By: Bogdan Barnes on 10-09-2022 Bilirubin [Mass/Vol] 0.9 mg/dL 0.3-1.0 [facility] Calcium [Mass/volume] in Ser um or PlasmaOrdered By: Bogdan Barnes on 10-09-2022 Calcium [Mass/Vol] 9.3 mg/dL 8.6-10.3 [facility] Cannabinoids [Presence] in U rine by Screen methodOrdered By: Bogdan Barnes on 10-09-2022 Cannabinoids Screen Ql (U) Positive Negative [facility] Comment on above: These are unconfirme d results and should not be used for legal purposes. Drug Cut-Off Concentration: AMPH 1000 ng/mL YISEL 200 ng/mL LUCA 200 ng/mL COCM 300 ng/mL OP 300 ng/mL PCP 25 ng/mL THC 20 ng/mL Carbon dioxide, total [Moles /volume] in Serum or PlasmaOrdered By: Bogdan Barnes on 10-09-2022 CO2 [Moles/Vol] 25.3 mmol/L 21.0-31.0 [facility] Chloride [Moles/volume] in S yoav or PlasmaOrdered By: Bogdan Barnes on 10-09-2022 Chloride [Moles/Vol] 106 mmol/L 98-107 [facility] Cholesterol [Mass/volume] in Serum or PlasmaOrdered By: Brent Simmons on 10-09-2022 Cholesterol [Mass/Vol] 181 mg/dL 140-200 [facility] Comment on above: Chol less than 200 m g/dl low riskChol 201-239 mg/dl borderline riskChol 240 mg/dl and greater high risk Cholesterol in LDL Calc [Mas s/Vol]Ordered By: Brent Simmons on 10-09-2022 Cholesterol in LDL [Mass/Vol] 99 mg/dL 0-100 [facility] Comment on above: LDL ATP III CLASSIFI CATIONLDL less than 100 mg/dL OptimalLDL 100-129 mg/dL Near or above optimalLDL 130-159 mg/dL Borderline highLDL 160-189 mg/dL HighLDL greater than 189 mg/dL Very high Cholesterol in VLDL Calc [Ma ss/Vol]Ordered By: Brent Simmons on 10-09-2022 Cholesterol in VLDL [Mass/Vol] 21 mg/dL [facility] Color Auto (U)Ordered By: Sadia Barnes on 10-09-2022 Color (U) Yellow Yellow [facility] Creatinine [Mass/volume] in Serum or PlasmaOrdered By: Bogdan Barnes on 10-09-2022 Creatinine [Mass/Vol] 1.07 mg/dL 0.60-1.20 [facility] Eosinophils Auto (Bld) [#/Vo l]Ordered By: Bogdan Barnes on 10-09-2022 Eosinophils (Bld) [#/Vol] 0.3 10*3/uL 0.0-0.45 [facility] Eosinophils/100 WBC Auto (Bl d)Ordered By: Bogdan Barnes on 10-09-2022 Eosinophils/100 WBC (Bld) 3.4 % . [facility] Erythrocyte distribution wid th Auto (RBC) [Ratio]Ordered By: Bogdan Barnes on 10-09-2022 Erythrocyte distribution width (RBC) [Ratio] 14.0 % 11.9-15.3 [facility] Ethanol [Mass/volume] in Ser um or PlasmaOrdered By: Bogdan Barnes on 10-09-2022 Ethanol [Mass/Vol] mg/dL [facility] Ethanol [Mass/Vol] TNP [facility] Comment on above: Test not performed Globulin Calc (S) [Mass/Vol] Ordered By: Bogdan Barnes on 10-09-2022 Globulin (S) [Mass/Vol] 2.7 g/dL [facility] Glucose [Mass/volume] in Ser um or PlasmaOrdered By: Bogdan Barnes on 10-09-2022 Glucose [Mass/Vol] 96 mg/dL 70-100 [facility] Comment on above: ADA recommended refe rence rangeRandom Glucose Reference Range is dependent on time and content of last meal. Glucose of more than 200 mg/dL in a nonstressed, ambulatory subject supports the diagnosis of Diabetes Mellitus. HCG ( test) IAandrei d Ql (U)Ordered By: Bogdan Barnes on 10-09-2022 HCG ( test) Ql (U) Negative [facility] Hematocrit Auto (Bld) [Volum e fraction]Ordered By: Bogdan Barnes on 10-09-2022 Hematocrit (Bld) [Volume fraction] 45.6 % 34.0-46.4 [facility] Hemoglobin [Mass/volume] in BloodOrdered By: Bogdan Barnes on 10-09-2022 Hemoglobin (Bld) [Mass/Vol] 15.8 g/dL 11.8-15.4 [facility] Ketones Auto test strip (U) [Mass/Vol]Ordered By: Bogdan Barnes on 10-09-2022 Ketones (U) [Mass/Vol] 1+ Negative [facility] - UrinalysisOrder ed By: Bogdan Barnes on 10-09-2022 Hyaline casts LM Ql (Urine sed) 0-8 [LPF] 0-8 [facility] Leukocytes [#/volume] correc kitty for nucleated erythrocytes in Blood by Automated counOrdered By: Bogdan Barnes on 10-09-2022 WBC corrected for nucl RBC Auto (Bld) [#/Vol] 8.6 10*3/uL 3.8-11.6 [facility] Lymphocytes Auto (Bld) [#/Vo l]Ordered By: Bogdan Barnes on 10-09-2022 Lymphocytes (Bld) [#/Vol] 2.7 10*3/uL 1.00-4.8 [facility] Lymphocytes/100 WBC Auto (Bl d)Ordered By: Bogdan Barnes on 10-09-2022 Lymphocytes/100 WBC (Bld) 31.3 % . [facility] MCH Auto (RBC) [Entitic mass ]Ordered By: Bogdan Barnes on 10-09-2022 MCH (RBC) [Entitic mass] 31.5 pg 24.7-34.3 [facility] MCHC Auto (RBC) [Mass/Vol]Or dered By: Bogdan Barnes on 10-09-2022 MCHC (RBC) [Mass/Vol] 34.6 g/dL 32.0-35.0 [facility] MCV Auto (RBC) [Entitic vol] Ordered By: Bogdan Barnes on 10-09-2022 MCV (RBC) [Entitic vol] 91.2 fL 80-100 [facility] Monocyte distribution width [Entitic volume] in Blood by AutomatedOrdered By: Bogdan Barnes on 10-09-2022 Monocyte distribution width Auto (Bld) [Entitic vol] 16.52 % 0.00-20.00 [facility] Monocytes Auto (Bld) [#/Vol] Ordered By: Bogdan Barnes on 10-09-2022 Monocytes (Bld) [#/Vol] 0.4 10*3/uL 0.0-0.8 [facility] Monocytes/100 WBC Auto (Bld) Ordered By: Bogdan Barnes on 10-09-2022 Monocytes/100 WBC (Bld) 4.8 % . [facility] Neutrophils Auto (Bld) [#/Vo l]Ordered By: Bogdan Barnes on 10-09-2022 Neutrophils (Bld) [#/Vol] 5.1 10*3/uL 1.8-7.7 [facility] Neutrophils/100 WBC Auto (Bl d)Ordered By: Bogdan Barnes on 10-09-2022 Neutrophils/100 WBC (Bld) 59.7 % . [facility] Nitrite Test strip Ql (U)Ord ered By: Bogdan Barnes on 10-09-2022 Nitrite Ql (U) Negative Negative [facility] No Panel InformationOrdered By: Bogdan Barnes on 10-09-2022 Estimated GFR (CKD-EPI) > 60.0 mL/Min [facility] Creatinine Clearance (Chem 68.86 [facility] Nucleated erythrocytes [Pres ence] in Blood by Automated countOrdered By: Bogdan Barnes on 10-09-2022 Nucleated RBC Auto Ql (Bld) 0.1 /100{WBC} 0-0.5 [facility] Opiates [Presence] in Urine by Screen methodOrdered By: Bogdan Barnes on 10-09-2022 Opiates Screen Ql (U) Negative Negative [facility] Phencyclidine Screen Ql (U)O rdered By: Bogdan Barnes on 10-09-2022 Phencyclidine Ql (U) Negative Negative [facility] Platelet mean volume Auto (B ld) [Entitic vol]Ordered By: Bogdan Barnes on 10-09-2022 Platelet mean volume (Bld) [Entitic vol] 9.6 fL 6.3-10.7 [facility] Platelets Auto (Bld) [#/Vol] Ordered By: Bogdan Barnes on 10-09-2022 Platelets (Bld) [#/Vol] 278 10*3/uL 150-450 [facility] Potassium [Moles/volume] in Serum or PlasmaOrdered By: Bogdan Barnes on 10-09-2022 Potassium [Moles/Vol] 3.9 mmol/L 3.5-5.1 [facility] Protein Auto test strip (U) [Mass/Vol]Ordered By: Bogdan Barnes on 10-09-2022 Protein (U) [Mass/Vol] Trace mg/dL Negative F [facility] Protein [Mass/volume] in Ser um or PlasmaOrdered By: Bogdan Barnes on 10-09-2022 Protein [Mass/Vol] 7.4 g/dL 6.4-8.9 [facility] RBC Auto (Bld) [#/Vol]Ordere d By: Bogdan Barnes on 10-09-2022 RBC (Bld) [#/Vol] 5.01 10*6/uL 3.60-5.00 [facility] Serum or plasma albumin/glob ulin mass ratioOrdered By: Bogdan Barnes on 10-09-2022 Albumin/Globulin [Mass ratio] 1.7 {ratio} [facility] Serum or plasma anion gap de terminationOrdered By: Bogdan Barnes on 10-09-2022 Anion gap [Moles/Vol] 12.6 mmol/L 6.0-15.0 [facility] Serum or plasma high density lipoprotein (HDL) cholesterol measurementOrdered By: Brent Simmons on 10-09-2022 Cholesterol in HDL [Mass/Vol] 60 mg/dL 35-85 [facility] Comment on above: HDL CHOL ATP-III CLA SSIFICATION Cardiovascular RiskHDL > or equal to 60 mg/dL LOWHDL < 40 mg/dL HIGH Serum or plasma total choles terol/high density lipoprotein (HDL) cholesterol mass ratOrdered By: Brent Simmons on 10-09-2022 Cholesterol.total/Chol esterol in HDL [Mass ratio] 3.0 {ratio} <5.0 [facility] Sodium [Moles/volume] in Ser um or PlasmaOrdered By: Bogdan Barnes on 10-09-2022 Sodium [Moles/Vol] 140 mmol/L 136-145 [facility] Specific gravity Auto test s trip (U) [Rel density]Ordered By: Bogdan Barnes on 10-09-2022 Specific gravity (U) [Rel density] 1.027 1.001-1.030 [facility] Squamous epithelial cells de tection in urine sediment by light microscopyOrdered By: Bogdan Barnes on 10-09-2022 Epithelial cells.squamous LM Ql (Urine sed) 10-19 [HPF] 0-2 [facility] Thyrotropin [Units/volume] i n Serum or PlasmaOrdered By: Brent Simmnos on 10-09-2022 TSH Qn 1.85 m[IU]/L 0.45-5.33 [facility] Triglyceride [Mass/volume] i n Serum or PlasmaOrdered By: Brent Simmons on 10-09-2022 Triglyceride [Mass/Vol] 109 mg/dL 0-149 [facility] Comment on above: TRIG ATP III CLASSIF ICATIONTRIG less than 150 mg/dL NormalTRIG 150-199 mg/dL Borderline highTRIG 200-500 mg/dL High TRIG greater than 500 mg/dL Very highStandard traceable to the Center for Disease Conrtrol and Prevention (CDC) test method. Urea nitrogen [Mass/volume] in Serum or PlasmaOrdered By: Bogdan Barnes on 10-09-2022 Urea nitrogen [Mass/Vol] 12 mg/dL 7-25 [facility] Urine bacteria detection by automated methodOrdered By: Bogdan Barnes on 10-09-2022 Bacteria Auto Ql (U) 1+ None Seen [facility] Urine clarity by refractomet ry automatedOrdered By: Bogdan Barnes on 10-09-2022 Clarity Refractometry automated (U) Cloudy Clear [facility] Urine culture routineOrdered By: Bogdan Barnes on 10-09-2022 Bacteria identified Cx Nom (U) 2 Days [facility] Urine glucose measurement by automated test strip (mass/volume)Ordered By: Bogdan Barnes on 10-09-2022 Glucose Auto test strip (U) [Mass/Vol] Normal mg/dL Normal [facility] Urine hemoglobin detection b y automated test stripOrdered By: Bogdan Barnes on 10-09-2022 Hemoglobin Auto test strip Ql (U) Negative Negative [facility] Urine leukocyte esterase det ection by automated test stripOrdered By: Bogdan Barnes on 10-09-2022 Leukocyte esterase Auto test strip Ql (U) 1+ Negative [facility] Urobilinogen Auto test strip (U) [Mass/Vol]Ordered By: Bogdan Barnes on 10-09-2022 Urobilinogen (U) [Mass/Vol] Normal mg/dL Normal [facility] Vitamin D+Metabolites [Mass/ volume] in Serum or PlasmaOrdered By: Brent Simmons on 10-09-2022 Vitamin D+Metabolites [Mass/Vol] 40.1 ng/mL 30-100 [facility] Comment on above: VITAMIN D STATUS 25( [place])VITAMIN D RANGE (ng/mL) Deficient <20 Insufficient 20 to <30Sufficient 30 to 100Reference: Janett MF,Dino NC, Joe HAIDER, et al. Evaluation,treatment, and prevention of vitamin D deficiency; an Endocrine Society clinical practice guideline. JCEM. 2010; 96(7):1911-30. WBC Auto (Bld) [#/Vol]Ordere d By: Bogdan Barnes on 10-09-2022 WBC (Bld) [#/Vol] 8.6 10*3/uL 3.8-11.6 [facility] pH Auto test strip (U)Ordere d By: Bogdan Barnes on 10-09-2022 pH (U) 5.5 [pH] 5.0-9.0 [facility] CNCOon 08-09-2022 CNCO Letter Text Normal [facility] CBC AUTO DIFFon 07-24-2022 BASO # 0.1 103/ul Normal 0.0-0.1 [facility] Comment on above: Performed By: #### E RUR #### [facility] [address] [place] [address] Dr. Janee Rodriguez Basophils/100 WBC (Bld) 0.7 % Normal 0.2-2.0 [facility] Comment on above: Performed By: #### E RUR #### [facility] [address] [address] [address] Janee Rodriguez EO # 0.4 103/ul Normal 0.0-0.7 [facility] Comment on above: Performed By: #### E RUR #### [facility] [address] [address] [address] Janee Rodriguez Eosinophils/100 WBC (Bld) 3.5 % Normal 0.9-7.0 [facility] Comment on above: Performed By: #### E RUR #### [facility] [address] [place] [address] Dr. Janee Rodriguez Erythrocyte distribution width (RBC) [Ratio] 12.2 % Normal 11.0-15.0 [facility] Comment on above: Performed By: #### E RUR #### [facility] [address] [place] [address] Dr. Janee Rodriguez Hematocrit (Bld) [Volume fraction] 43.8 % Normal 36.0-48.0 [facility] Comment on above: Performed By: #### E RUR #### [facility] [address] [place] [address] Dr. Janee Rodriguez Hemoglobin (Bld) [Mass/Vol] 14.7 g/dL Normal 12.0-16.0 [facility] Comment on above: Performed By: #### E RUR #### [facility] [address] [place] [address] Dr. Janee Rodriguez IG # 0.14 10e3/ul Critically high 0.00-0.03 [facility] Comment on above: Performed By: #### E RUR #### [facility] [address] [place] [address] Dr. Janee Rodriguez IG % 1.3 % Critically high 0.0-0.5 [facility] Comment on above: Performed By: #### E RUR #### [facility] [address] [place] [address] Dr. Janee Rodriguez LYMPH # 1.5 103/ul Normal 1.2-3.8 [facility] Comment on above: Performed By: #### E RUR #### [facility] [address] [place] [address] Dr. Janee Rodriguez Lymphocytes/100 WBC (Bld) 13.9 % Critically low 20.5-60.0 [facility] Comment on above: Performed By: #### E RUR #### [facility] [address] [place] [address] Dr. Janee Rodriguez MANUAL DIFF REQ NO Normal [facility] Comment on above: Performed By: #### E RUR #### [facility] [address] [place] [address] Dr. Janee Rodriguez MCH (RBC) [Entitic mass] 30.4 pg Normal 26.7-34.0 [facility] Comment on above: Performed By: #### E RUR #### [facility] [address] [place] [address] Dr. Janee Rodriguez MCHC (RBC) [Mass/Vol] 33.6 g/dL Normal 29.9-35.2 [facility] Comment on above: Performed By: #### E RUR #### [facility] [address] [place] [address] Dr. Janee Rodriguez MCV (RBC) [Entitic vol] 90.7 fL Normal 81.0-99.0 [facility] Comment on above: Performed By: #### E RUR #### [facility] [address] [place] [address] Dr. Janee Rodriguez MONO # 0.5 103/ul Normal 0.3-0.8 [facility] Comment on above: Performed By: #### E RUR #### [facility] [address] [place] [address] Dr. Janee Rodriguez Monocytes/100 WBC (Bld) 4.5 % Normal 1.7-12.0 [facility] Comment on above: Performed By: #### E RUR #### [facility] [address] [place] [address] Dr. Janee Rodriguez NEUT # 8.0 103/ul Critically high 1.4-6.5 [facility] Comment on above: Performed By: #### E RUR #### [facility] [address] [place] [address] Dr. Janee Rodriguez Neutrophils/100 WBC (Bld) 76.1 % Critically high 43.0-75.0 [facility] Comment on above: Performed By: #### E RUR #### [facility] [address] [place] [address] Dr. Janee Rodriguez Platelet mean volume (Bld) [Entitic vol] 11.1 fL Normal 9.5-13.5 [facility] Comment on above: Performed By: #### E RUR #### [facility] [address] [place] [address] Dr. Janee Rodriguez PLT 240 103/ul Normal 150-450 [facility] Comment on above: Performed By: #### E RUR #### [facility] [address] [place] [address] Dr. Janee Rodriguez RBC 4.83 106/ul Normal 4.20-5.40 [facility] Comment on above: Performed By: #### E RUR #### [facility] [address] [place] [address] Dr. Janee Rodriguez WBC 10.6 103/ul Normal 4.0-11.0 [facility] Comment on above: Performed By: #### E RUR #### [facility] [address] [place] [address] NECK [facility] CONon 3 CT NECK [facility] CON INDICATION: 31 years old; Female. Symptom/Location/Dura tion: Lump in throat for 3 days. TECHNIQUE: [...] and symmetric. CAROTID SPACE: Normal in appearance. SUPERINTENDENT MAINTENANCE SPACE: Normal in appearance. RETROPHARYNGEAL SPACE: Normal [...] DELL ARVIZU Date: 2022-07-24 03:39 Normal [facility] PROF CHEM 8 (BAS METB)on Anion gap [Moles/Vol] 11.3 mmol/L Normal [facility] Comment on above: Performed By: #### E RUR #### [facility] [address] [address] [address] Janee Rodriguez Calcium [Mass/Vol] 8.8 mg/dL Normal 8.5-10.1 [facility] Comment on above: Performed By: #### E RUR #### [facility] [address] [address] [address] Janee Rodriguez Chloride [Moles/Vol] 108 mmol/L Critically high 98-107 [facility] Comment on above: Performed By: #### E RUR #### [facility] [address] [address] [address] Janee Rodriguez CO2 [Moles/Vol] 23.3 mmol/L Normal 21.0-32.0 [facility] Comment on above: Performed By: #### E RUR #### [facility] [address] [address] [address] Janee Rodriguez Creatinine [Mass/Vol] 0.67 mg/dL Normal 0.55-1.02 [facility] Comment on above: Performed By: #### E RUR #### [facility] [address] [address] [address] Janee Rodriguez EGFR-AF PUERTO RICAN >60 Normal >=60 [facility] Comment on above: Performed By: #### E RUR #### [facility] [address] [address] [address] Janee Rodriguez EGFR-NON AF PUERTO RICAN >60 Normal >=60 [facility] Comment on above: Performed By: #### E RUR #### [facility] [address] [address] [address] Janee Rodriguez Glucose [Mass/Vol] 88 mg/dL Normal 74-106 [facility] Comment on above: Performed By: #### E RUR #### [facility] [address] [address] [address] Janee Rodriguez Potassium [Moles/Vol] 3.6 mmol/L Normal 3.5-5.1 [facility] Comment on above: Performed By: #### E RUR #### [facility] [address] [address] [address] Janee Rodriguez Sodium [Moles/Vol] 139 mmol/L Normal 136-145 [facility] Comment on above: Performed By: #### E RUR #### [facility] [address] [address] [address] Janee Rodriguez Urea nitrogen [Mass/Vol] 10.0 mg/dL Normal 7.0-18.0 [facility] Comment on above: Performed By: #### E RUR #### [facility] [address] [address] [address] Janee Rodriguez Urea nitrogen/Creatinine [Mass ratio] 14.9 mg/mg Normal [facility] Comment on above: Performed By: #### E RUR #### [facility] [address] [place], [place] [address] Dr. Janee Rodriguez TSHon 07-24-2022 TSH 1.208 uIU/mL Normal 0.358-3.740 [facility] Comment on above: Performed By: #### E RUR #### [facility] [id number] Janee Rodriguez ACUTE TOXICOLOGY PANEL, BLOO Don 05-13-2022 Acetaminophen [Mass/Vol] ug/mL Normal 10.0 - 30.0 [facility] Comment on above: Performed By: #### D RUBL #### [facility] [address] [id number] Ethanol [Mass/Vol] mg/dL Normal [facility] Comment on above: Result Comment: FOR MEDICAL USE ONLY. . REF VALUES <10 Performed By: #### D RUBL #### [facility] [address] [id number] SALICYLATE <3 Normal 4 - 20 [facility] Comment on above: Performed By: #### D RUBL #### [facility] [address] [id number] CBC AND DIFFERENTIALon 05-13 % AUTOMATED IMMATURE GRAN 0.4 % Normal 0.0 - 0.9 [facility] Comment on above: Result Comment: Ele ture Granulocyte Count (IG) includes promyelocytes, myelocytes and metamyelocytes but does not include bands. Percent differential counts (%) should be interpreted in the context of the absolute cell counts (cells/L). Performed By: #### C BCDF #### [facility] [address] [id number] Basophils (Bld) [#/Vol] 0.07 10*3/uL Normal 0.00 - 0.10 [facility] Comment on above: Performed By: #### C BCDF #### [facility] [address] [place] [address] Basophils/100 WBC (Bld) 0.6 % Normal 0.0 - 2.0 [facility] Comment on above: Performed By: #### C BCDF #### [facility] [address] [place] [address] Eosinophils (Bld) [#/Vol] 0.36 10*3/uL Normal 0.00 - 0.70 [facility] Comment on above: Performed By: #### C BCDF #### [facility] [address] [place] [address] Eosinophils/100 WBC (Bld) 3.2 % Normal 0.0 - 6.0 [facility] Comment on above: Performed By: #### C BCDF #### [facility] [address] [place] [address] Erythrocyte distribution width (RBC) [Ratio] 12.8 % Normal 11.5 - 14.5 [facility] Comment on above: Performed By: #### C BCDF #### [facility] [address] [place] [address] Hematocrit (Bld) [Volume fraction] 41.3 % Normal 36.0 - 46.0 [facility] Comment on above: Performed By: #### C BCDF #### [facility] [address] [place] [address] Hemoglobin (Bld) [Mass/Vol] 13.9 g/dL Normal 12.0 - 16.0 [facility] Comment on above: Performed By: #### C BCDF #### [facility] [address] [place] [address] Lymphocytes (Bld) [#/Vol] 2.25 10*3/uL Normal 1.20 - 4.80 [facility] Comment on above: Performed By: #### C BCDF #### [facility] [address] [place] [address] Lymphocytes/100 WBC (Bld) 19.9 % Normal 13.0 - 44.0 [facility] Comment on above: Performed By: #### C BCDF #### [facility] [address] [place] [address] MCHC (RBC) [Mass/Vol] 33.7 g/dL Normal 32.0 - 36.0 [facility] Comment on above: Performed By: #### C BCDF #### [facility] [address] [place] [address] MCV (RBC) [Entitic vol] 91 fL Normal 80 - 100 [facility] Comment on above: Performed By: #### C BCDF #### [facility] [address] [place] [address] Monocytes (Bld) [#/Vol] 0.66 10*3/uL Normal 0.10 - 1.00 [facility] Comment on above: Performed By: #### C BCDF #### [facility] [address] [place] [address] Monocytes/100 WBC (Bld) 5.8 % Normal 2.0 - 10.0 [facility] Comment on above: Performed By: #### C BCDF #### [facility] [address] [place] [address] Neutrophils (Bld) [#/Vol] 7.92 10*3/uL High 1.20 - 7.70 [facility] Comment on above: Performed By: #### C BCDF #### [facility] [address] [place] [address] Neutrophils/100 WBC (Bld) 70.1 % Normal 40.0 - 80.0 [facility] Comment on above: Performed By: #### C BCDF #### [facility] [address] [place] [address] Platelets (Bld) [#/Vol] 281 10*3/uL Normal 150 - 450 [facility] Comment on above: Performed By: #### C BCDF #### [facility] [address] [place] [address] RBC 4.54 x10E12/L Normal 4.00 - 5.20 [facility] Comment on above: Performed By: #### C BCDF #### [facility] [address] [place] [address] WBC (Bld) [#/Vol] 11.3 10*3/uL Normal 4.4 - 11.3 [facility] Comment on above: Performed By: #### C BCDF #### [facility] [address] [place] [address] COMPREHENSIVE PANELon 2022 Albumin [Mass/Vol] 4.3 g/dL Normal 3.4 - 5.0 [facility] Comment on above: Performed By: #### C MP #### [facility] [address] [place] [address] ALP [Catalytic activity/Vol] 44 U/L Normal 33 - 110 [facility] Comment on above: Performed By: #### C MP #### [facility] [address] [place] [address] ALT [Catalytic activity/Vol] 26 U/L Normal 7 - 45 [facility] Comment on above: Result Comment: Gloria ents treated with Sulfasalazine may generate falsely decreased results for ALT. Performed By: #### C MP #### [facility] [address] [place] [address] Anion gap [Moles/Vol] 13 mmol/L Normal 10 - 20 [facility] Comment on above: Performed By: #### C MP #### [facility] [address] [place] [address] AST [Catalytic activity/Vol] 15 U/L Normal 9 - 39 [facility] Comment on above: Performed By: #### C MP #### [facility] [address] [place] [address] Bilirubin [Mass/Vol] 0.3 mg/dL Normal 0.0 - 1.2 [facility] Comment on above: Performed By: #### C MP #### [facility] [address] [place] [address] Calcium [Mass/Vol] 9.5 mg/dL Normal 8.6 - 10.3 [facility] Comment on above: Performed By: #### C MP #### [facility] [address] [place] [address] Chloride [Moles/Vol] 105 mmol/L Normal 98 - 107 [facility] Comment on above: Performed By: #### C MP #### [facility] [address] [place] [address] Creatinine [Mass/Vol] 0.68 mg/dL Normal 0.50 - 1.05 [facility] Comment on above: Performed By: #### C MP #### [facility] [address] [place] [address] eGFR FEMALE >90 Normal >90 [facility] Comment on above: Result Comment: CALC ULATIONS OF ESTIMATED GFR ARE PERFORMED USING THE 2020 CKD-EPI STUDY REFIT EQUATION WITHOUT THE RACE VARIABLE FOR THE IDMS-TRACEABLE CREATININE METHODS. https://jasn.asnjournals.org/content/early//ASN.41733 91979 Performed By: #### C MP #### [facility] [address] [place] [address] Glucose [Mass/Vol] 105 mg/dL High 74 - 99 [facility] Comment on above: Performed By: #### C MP #### [facility] [address] [place] [address] HCO3 (Bld) [Moles/Vol] 28 mmol/L Normal 21 - 32 [facility] Comment on above: Performed By: #### C MP #### [facility] [address] [place] [address] Potassium [Moles/Vol] 3.8 mmol/L Normal 3.5 - 5.3 [facility] Comment on above: Performed By: #### C MP #### [facility] [address] [place] [address] Protein [Mass/Vol] 6.7 g/dL Normal 6.4 - 8.2 [facility] Comment on above: Performed By: #### C MP #### [facility] [address] [place] [address] Sodium [Moles/Vol] 142 mmol/L Normal 136 - 145 [facility] Comment on above: Performed By: #### C MP #### [facility] [address] [place] [address] Urea nitrogen [Mass/Vol] 20 mg/dL Normal 6 - 23 [facility] Comment on above: Performed By: #### C #### [facility] [address] [place] [address] Covid 19 Resultson 3 SARS-CoV-2 (COVID-19) RNA [...] You may also be contacted by the [facility] to see if any of your close [...] or Naproxen (Aleve) can also be used. Zbvx-ojx-krestrg cough and cold medicines can be used according to the instructions on the package. Some ubos-vwa-ondabrq medicines also contain acetaminophen. Make sure you [...] water are not available, use alcohol-based hand systems mechanic. Avoid touching your eyes, nose, and mouth [...] 24 rachelle (more content not included)... Normal [facility] DRUG SCREEN,URINEon 05-13-19 23 AMPHETAMINE SCREEN,U Negative Normal NEGATIVE [facility] Comment on above: Result Comment: CUTO FF LEVEL: 500 NG/ML Cross-reactivity has been reported with high concentrations of the following drugs: buproprion, chloroquine, chlorpromazine, ephedrine, mephentermine, fenfluramine, phentermine, phenylpropanolamine, pseudoephedrine, and propranolol. Performed By: #### D RUG3 #### [facility] [address] [place] [address] BARBITURATES SCREEN,U Negative Normal NEGATIVE [facility] Comment on above: Result Comment: CUTO FF LEVEL: 200 NG/ML Performed By: #### D RUG3 #### [facility] [address] [place] [address] BENZODIAZEPINES SCREEN,U Negative Normal NEGATIVE [facility] Comment on above: Result Comment: CUTO FF LEVEL: 200 NG/ML Performed By: #### D RUG3 #### [facility] [address] [place] [address] CANNABINOIDS SCREEN,U Negative Normal NEGATIVE [facility] Comment on above: Result Comment: CUTO FF LEVEL: 50 NG/ML Performed By: #### D RUG3 #### [facility] [address] [id number] COCAINE METABOLITE SCREEN,U Negative Normal NEGATIVE [facility] Comment on above: Result Comment: CUTO FF LEVEL: 150 NG/ML Performed By: #### D RUG3 #### [facility] [address] [id number] DRUG SCREEN COMMENT SEE BELOW Normal [facility] Comment on above: Result Comment: Drug screen results are presumptive and should not be used to assess compliance with prescribed medication. Contact the performing [facility] [[email or web address]] laboratory to add-on definitive confirmatory testing if [...] directors. Performed By: #### D RUG3 #### [facility] [address] [place] [address] FENTANYL SCREEN,URINE Negative Normal NEGATIVE [facility] Comment on above: Result Comment: CUTO FF LEVEL: 5 NG/ML Performed By: #### D RUG3 #### [facility] [address] [place] [address] METHADONE SCREEN,U Negative Normal NEGATIVE [facility] Comment on above: Result Comment: CUTO FF LEVEL: 150 NG/ML The metabolite V-isxbr-axiydoowffrhrx (LAAM) is not detected by this method in concentrations that would be found in the urine of patients on LAAM therapy. Performed By: #### D RUG3 #### [facility] [address] [place] [address] OPIATES SCREEN,U Negative Normal NEGATIVE [facility] Comment on above: Result Comment: CUTO FF LEVEL: 300 NG/ML The opiate screen does not detect fentanyl, meperidine, or tramadol. Oxycodone is not consistently detected (refer to Oxycodone Screen, Urine result). Performed By: #### D RUG3 #### [facility] [address] [place] [address] OXYCODONE SCREEN,U Negative Normal NEGATIVE [facility] Comment on above: Result Comment: CUTO FF LEVEL: 100 NG/ML This test will accurately detect both oxycodone and oxymorphone. Performed By: #### D RUG3 #### [facility] [address] [place] [address] PCP SCREEN,U Negative Normal NEGATIVE [facility] Comment on above: Result Comment: CUTO FF LEVEL: 25 NG/ML Cross-reactivity has been reported with dextromethorphan. Performed By: #### D RUG3 #### [facility] [address] [place] [address] HCG,URINEon 05-13-2022 Beta HCG ( test) Ql (U) Negative Normal Negative [facility] Comment on above: Performed By: #### H CGU #### [facility] [address] [place] [address] INFLUENZA A/B, COVID 2019 PC R,SYMPTOMATICon 05-13-2022 INFLUENZA A, PCR Not detected Normal Not Detected [facility] Comment on above: Result Comment: Resp iratory virus testing is performed routinely by PCR for Influenza A/B and RSV. Not Detected results do not preclude Influenza A/B or RSV infections since the adequacy of sample collection or low viral burden may impact the clinical sensitivity of this test method. Performed By: #### C OINP #### [facility] [address] [place] [address] INFLUENZA B, PCR Not detected Normal Not Detected [facility] Comment on above: Result Comment: Resp iratory virus testing is performed routinely by PCR for Influenza A/B and RSV. Not Detected results do not preclude Influenza A/B or RSV infections since the adequacy of sample collection or low viral burden may impact the clinical sensitivity of this test method. Performed By: #### C OINP #### [facility] [address] [place] [address] SARS-CoV-2 (COVID-19) RNA HEENA+probe Ql (Unsp spec) Not detected Normal Not Detected [facility] Comment on above: Result Comment: . This test has received FDA Emergency Use Authorization (EUA) and has been verified by [facility]. This test is only authorized for the duration of time that circumstances exist to justify the authorization of the emergency use of in vitro diagnostic tests for the detection of SARS-CoV-2 virus and/or diagnosis of COVID-19 infection under section 564(b)(1) of the Act, 21 U.S.C. 360bbb-3(b)(1), unless the authorization is terminated or revoked sooner. [facility] is certified under CLIA-88 as qualified to perform high complexity testing. Testing is performed in the [facility] laboratory located at [address] [place] [address]. SARS-CoV-2/Flu/RSV Multiplex Test: Fact sheet for providers: https://www.fda.gov/media/119380/download Fact sheet for patients: https://www.fda.gov/media/244329/download Performed By: #### C OINP #### [facility] [address] [place] [address] Lab Specimen Source Nasal, Nasopharyngeal Normal [facility] Comment on above: Performed By: #### C OINP #### [facility] [address] [place] [address] Provider Note - ED Care Bianchi sitionon [...] Updated: 20-Jun-2022 10:44 by Kevin Henao) Normal [facility] Provider Note - ED v3on Provider Note [...] Hg): 85 05-12-2022 22:59 PAST MEDICAL HISTORY ALLERGIES/INTOLERANCE S: Allergy Allergen: Compazine Type: Drug Reaction: Other [...] From Triage - ED 12-May-2022 22:59 Normal [facility] Triage - EDon 05-13-2022 Triage - ED Quick Triage: Are You no Have You Given In The Last 6 Weeksno Are You Currently Breastfeedingno Chart Review: ARRIVAL INFORMATION Mode of Arrival: ambulance Agency: City Agency Name: michelle CHIEF COMPLAINT ROSHAN WILLINGHAM is a Female patient with a chief [...] BMI (kg/m2): 27.850 Calculated BSA (m2) 1.74 Garland Coma Scale: Best Eye Response: (E4) spontaneous [...] History Last Updated: 13-May-2022 03:24 by Rima Mendiola (RN) Normal [facility] URINALYSIS WITH CULTURE IF I NDICATEDon 05-13-2022 Appearance (U) CLOUDY Normal CLEAR [facility] Comment on above: Performed By: #### U ARFX #### [facility] [address] [place] [address] Bilirubin Ql (U) Negative Normal NEGATIVE [facility] Comment on above: Performed By: #### U ARFX #### [facility] [address] [place] [address] Color (U) YELLOW Normal STRAW,YELLOW [facility] Comment on above: Performed By: #### U ARFX #### [facility] [address] [place] [address] Glucose Ql (U) Negative Normal NEGATIVE [facility] Comment on above: Performed By: #### U ARFX #### [facility] [address] [place] [address] Hemoglobin Ql (U) Negative Normal NEGATIVE [facility] Comment on above: Performed By: #### U ARFX #### [facility] [address] [place] [address] Ketones Ql (U) Negative Normal NEGATIVE [facility] Comment on above: Performed By: #### U ARFX #### [facility] [address] [place] [address] Leukocyte esterase Test strip Ql (U) Negative Normal NEGATIVE [facility] Comment on above: Performed By: #### U ARFX #### [facility] [address] [place] [address] Nitrite Ql (U) Negative Normal NEGATIVE [facility] Comment on above: Performed By: #### U ARFX #### [facility] [address] [place] [address] pH (U) 7.0 [pH] Normal 5.0 - 8.0 [facility] Comment on above: Performed By: #### U ARFX #### [facility] [address] [place] [address] Protein Ql (U) Negative Normal NEGATIVE [facility] Comment on above: Performed By: #### U ARFX #### [facility] [address] [place] [address] Specific gravity (U) [Rel density] 1.012 Normal 1.005 - 1.035 [facility] Comment on above: Performed By: #### U ARFX #### [facility] [address] [place] [address] Urobilinogen (U) [Mass/Vol] mg/dL Normal 0.0 - 1.9 [facility] Comment on above: Performed By: #### U ARFX #### [facility] [address] [place] [address] MAGNESIUMon 02-25-2022 Magnesium [Mass/Vol] 2.16 mg/dL Normal 1.60 - 2.40 [facility] Comment on above: Performed By: #### M G #### [facility] [address] [place] [address] PHOSPHORUSon 02-25-2022 Phosphate [Mass/Vol] 3.6 mg/dL Normal 2.5 - 4.9 [facility] Comment on above: Result Comment: The performance characteristics of phosphorus testing in heparinized plasma have been validated by the individual laboratory site where testing is performed. Testing on heparinized plasma is not approved by the FDA; however, such approval is not necessary. Performed By: #### P HOS #### [facility] [address] [place] [address] ACUTE TOXICOLOGY PANEL, BLOO Don 02-24-2022 SALICYLATE <3 Normal 4 - 20 [facility] Comment on above: Performed By: #### D RUBL #### [facility] [address] [place] [address] Acetaminophen [Mass/Vol] ug/mL Normal 10.0 - 30.0 [facility] Comment on above: Performed By: #### D RUBL #### [facility] [address] [place] [address] Ethanol [Mass/Vol] mg/dL Normal [facility] Comment on above: Result Comment: FOR MEDICAL USE ONLY. . REF VALUES <10 Performed By: #### D RUBL #### [facility] [address] [place] [address] CBC AND DIFFERENTIALon 02-24 % AUTOMATED IMMATURE GRAN 0.2 % Normal 0.0 - 0.9 [facility] Comment on above: Result Comment: Ele ture Granulocyte Count (IG) includes promyelocytes, myelocytes and metamyelocytes but does not include bands. Percent differential counts (%) should be interpreted in the context of the absolute cell counts (cells/L). Performed By: #### C BCDF #### [facility] [address] [place] [address] Basophils (Bld) [#/Vol] 0.06 10*3/uL Normal 0.00 - 0.10 [facility] Comment on above: Performed By: #### C BCDF #### [facility] [address] [place] [address] Basophils/100 WBC (Bld) 0.6 % Normal 0.0 - 2.0 [facility] Comment on above: Performed By: #### C BCDF #### [facility] [address] [place] [address] Eosinophils (Bld) [#/Vol] 0.10 10*3/uL Normal 0.00 - 0.70 [facility] Comment on above: Performed By: #### C BCDF #### [facility] [address] [place] [address] Eosinophils/100 WBC (Bld) 1.0 % Normal 0.0 - 6.0 [facility] Comment on above: Performed By: #### C BCDF #### [facility] [address] [place] [address] Erythrocyte distribution width (RBC) [Ratio] 12.8 % Normal 11.5 - 14.5 [facility] Comment on above: Performed By: #### C BCDF #### [facility] [address] [place] [address] Hematocrit (Bld) [Volume fraction] 37.0 % Normal 36.0 - 46.0 [facility] Comment on above: Performed By: #### C BCDF #### [facility] [address] [place] [address] Hemoglobin (Bld) [Mass/Vol] 13.0 g/dL Normal 12.0 - 16.0 [facility] Comment on above: Performed By: #### C BCDF #### [facility] [address] [place] [address] Lymphocytes (Bld) [#/Vol] 1.94 10*3/uL Normal 1.20 - 4.80 [facility] Comment on above: Performed By: #### C BCDF #### [facility] [address] [place] [address] Lymphocytes/100 WBC (Bld) 20.3 % Normal 13.0 - 44.0 [facility] Comment on above: Performed By: #### C BCDF #### [facility] [address] [place] [address] MCHC (RBC) [Mass/Vol] 35.1 g/dL Normal 32.0 - 36.0 [facility] Comment on above: Performed By: #### C BCDF #### [facility] [address] [place] [address] MCV (RBC) [Entitic vol] 91 fL Normal 80 - 100 [facility] Comment on above: Performed By: #### C BCDF #### [facility] [address] [place] [address] Monocytes (Bld) [#/Vol] 0.52 10*3/uL Normal 0.10 - 1.00 [facility] Comment on above: Performed By: #### C BCDF #### [facility] [address] [place] [address] Monocytes/100 WBC (Bld) 5.5 % Normal 2.0 - 10.0 [facility] Comment on above: Performed By: #### C BCDF #### [facility] [address] [place] [address] Neutrophils (Bld) [#/Vol] 6.90 10*3/uL Normal 1.20 - 7.70 [facility] Comment on above: Performed By: #### C BCDF #### [facility] [address] [place] [address] Neutrophils/100 WBC (Bld) 72.4 % Normal 40.0 - 80.0 [facility] Comment on above: Performed By: #### C BCDF #### [facility] [address] [place] [address] NUCLEATED RBC 0.0 /100 WBC Normal 0.0-0.0 [facility] Comment on above: Performed By: #### C BCDF #### [facility] [address] [place] [address] Platelets (Bld) [#/Vol] 233 10*3/uL Normal 150 - 450 [facility] Comment on above: Performed By: #### C BCDF #### [facility] [address] [place] [address] RBC 4.06 x10E12/L Normal 4.00 - 5.20 [facility] Comment on above: Performed By: #### C BCDF #### [facility] [address] [place] [address] WBC (Bld) [#/Vol] 9.5 10*3/uL Normal 4.4 - 11.3 [facility] Comment on above: Performed By: #### C BCDF #### [facility] [address] [place] [address] COMPREHENSIVE PANELon 2021 Albumin [Mass/Vol] 4.3 g/dL Normal 3.4 - 5.0 [facility] Comment on above: Performed By: #### C MP ####[id number] [place] [address] ALP [Catalytic activity/Vol] 41 U/L Normal 33 - 110 [facility] Comment on above: Performed By: #### C MP ####[id number] [place] [address] ALT [Catalytic activity/Vol] 11 U/L Normal 7 - 45 [facility] Comment on above: Result Comment: Gloria ents treated with Sulfasalazine may generate falsely decreased results for ALT. Performed By: #### C MP ####[id number] [place] [address] Anion gap [Moles/Vol] 14 mmol/L Normal 10 - 20 [facility] Comment on above: Performed By: #### C MP ####[id number] [place] [address] AST [Catalytic activity/Vol] 10 U/L Normal 9 - 39 [facility] Comment on above: Performed By: #### C MP ####[id number] [place] [address] Bilirubin [Mass/Vol] 0.4 mg/dL Normal 0.0 - 1.2 [facility] Comment on above: Performed By: #### C MP ####[id number] [place] [address] Calcium [Mass/Vol] 9.2 mg/dL Normal 8.6 - 10.6 [facility] Comment on above: Performed By: #### C MP ####[id number] [place] [address] Chloride [Moles/Vol] 109 mmol/L High 98 - 107 [facility] Comment on above: Performed By: #### C MP ####[id number] [place] [address] Creatinine [Mass/Vol] 0.76 mg/dL Normal 0.50 - 1.05 [facility] Comment on above: Performed By: #### C MP ####[id number] [place] [address] eGFR FEMALE >90 Normal >90 [facility] Comment on above: Result Comment: CALC ULATIONS OF ESTIMATED GFR ARE PERFORMED USING THE 2020 CKD-EPI STUDY REFIT EQUATION WITHOUT THE RACE VARIABLE FOR THE IDMS-TRACEABLE CREATININE METHODS. https://jasn.asnjournals.org/content//ASN.55454 64846 Performed By: #### C MP ####[id number] [place] [address] Glucose [Mass/Vol] 92 mg/dL Normal 74 - 99 [facility] Comment on above: Performed By: #### C MP ####[id number] [place] [address] HCO3 (Bld) [Moles/Vol] 23 mmol/L Normal 21 - 32 [facility] Comment on above: Performed By: #### C MP ####[id number] [place] [address] Potassium [Moles/Vol] 3.7 mmol/L Normal 3.5 - 5.3 [facility] Comment on above: Performed By: #### C MP ####[id number] [place] [address] Protein [Mass/Vol] 6.7 g/dL Normal 6.4 - 8.2 [facility] Comment on above: Performed By: #### C MP ####[id number] [place] [address] Sodium [Moles/Vol] 142 mmol/L Normal 136 - 145 [facility] Comment on above: Performed By: #### C MP ####[id number] [place] [address] Urea nitrogen [Mass/Vol] 7 mg/dL Normal 6 - 23 [facility] Comment on above: Performed By: #### C MP ####[id number] [place] [address] Consult - Psychiatryon 02-24 Consult - Psychiatry History of Present Illness: Admission Reason: anxiety HPI: This is a 31-year-old woman with past psychiatric history of MDD vs. Bipolar Depression, SHE, Borderline PD, and Unspecified Feeding/Eating Disorder, who self presented to [facility] ED from the residential [facility] complaining of severe anxiety. 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 States she has been doing well with eating since starting. However, notes the psychiatrist immediately discontinued all her home medications. She lists Paxil, Zyprexa, and Franquez and notes she had been started on [...] Denies any depressive symptoms or SI/HI/AH/VH. Per [facility] nurse, : Home Franquez 450mg QHS, Zyprexa 5mg QHS, and Paxil [...] Unspecified Feeding/Eating Disorder Prior Hospitalizations: multiple at [facility] inpatient, last admission in December 2021 for SI Suicide Attempts/self harm: endorses 4-5 prior ODs. Last attempt in August 2021 via OD on Celexa Outpatient treatment: [facility] Tax Processor: Arlene at [facility] Outpatient Current psychiatric medications: Prozac 20mg daily Past psychiatric medications: Zyprexa 5mg QHS, Paxil 10mg daily and Franquez 450mg QHS all just discontinued on 02/16, celexa (increased suicidality), and Zoloft Social History: Social History: Born: in [place], [place] Currently lives: alone Work/Finances: did not assess Marital history/children: single, lesbian, not on control. Social support: no one, asks for her family not to be notified. Sister in [place], parents in [place] Access to Weapons: denies SUBSTANCE HX: Alcohol: [...] Comments: unremarkbable Objective: Objective Information: T PRBPMAPSpO2 [id number] % Date/Time02/24 14: 14: 14: 14: 14:16 Range(36.4C [...] 25 m (more content not included)... Normal [facility] DRUG SCREEN,URINEon 02-25-20 22 AMPHETAMINE SCREEN,U Negative Normal NEGATIVE [facility] Comment on above: Result Comment: CUTO FF LEVEL: 500 NG/ML Cross-reactivity has been reported with high concentrations of the following drugs: buproprion, chloroquine, chlorpromazine, ephedrine, mephentermine, fenfluramine, phentermine, phenylpropanolamine, pseudoephedrine, and propranolol. Performed By: #### D RUG3 #### [facility] [address] [place] [address] BARBITURATES SCREEN,U Negative Normal NEGATIVE [facility] Comment on above: Result Comment: CUTO FF LEVEL: 200 NG/ML Performed By: #### D RUG3 #### [facility] [address] [place] [address] BENZODIAZEPINES SCREEN,U Negative Normal NEGATIVE [facility] Comment on above: Result Comment: CUTO FF LEVEL: 200 NG/ML Performed By: #### D RUG3 #### [facility] [address] [place] [address] CANNABINOIDS SCREEN,U Positive Abnormal NEGATIVE [facility] Comment on above: Result Comment: CUTO FF LEVEL: 50 NG/ML Performed By: #### D RUG3 #### [facility] [address] [place] [address] COCAINE METABOLITE SCREEN,U Negative Normal NEGATIVE [facility] Comment on above: Result Comment: CUTO FF LEVEL: 150 NG/ML Performed By: #### D RUG3 #### [facility] [address] [place] [address] DRUG SCREEN COMMENT SEE BELOW Normal [facility] Comment on above: Result Comment: Drug screen results are presumptive and should not be used to assess compliance with prescribed medication. Contact the performing [facility] [[email or web address]] laboratory to add-on definitive confirmatory testing if [...] directors. Performed By: #### D RUG3 #### [facility] [address] [place] [address] FENTANYL SCREEN,URINE Negative Normal NEGATIVE [facility] Comment on above: Result Comment: CUTO FF LEVEL: 5 NG/ML Performed By: #### D RUG3 #### [facility] [address] [place] [address] METHADONE SCREEN,U Negative Normal NEGATIVE [facility] Comment on above: Result Comment: CUTO FF LEVEL: 150 NG/ML The metabolite C-gnwsq-hytgocbhvfznau (LAAM) is not detected by this method in concentrations that would be found in the urine of patients on LAAM therapy. Performed By: #### D RUG3 #### [facility] [address] [place] [address] OPIATES SCREEN,U Negative Normal NEGATIVE [facility] Comment on above: Result Comment: CUTO FF LEVEL: 300 NG/ML The opiate screen does not detect fentanyl, meperidine, or tramadol. Oxycodone is not consistently detected (refer to Oxycodone Screen, Urine result). Performed By: #### D RUG3 #### [facility] [address] [place] [address] OXYCODONE SCREEN,U Negative Normal NEGATIVE [facility] Comment on above: Result Comment: CUTO FF LEVEL: 100 NG/ML This test will accurately detect both oxycodone and oxymorphone. Performed By: #### D RUG3 #### [facility] [address] [place] [id number] PCP SCREEN,U Negative Normal NEGATIVE [facility] Comment on above: Result Comment: CUTO FF LEVEL: 25 NG/ML Cross-reactivity has been reported with dextromethorphan. Performed By: #### D RUG3 #### [facility] [address] [place] [address] EMR ADDONon 02-24-2022 ADDON CONFIRMATION REQUEST REC'D Normal [facility] Comment on above: Performed By: #### E MRAD ####NO LOCATION NEEDED Electrocardiogram 12 Leadon 02-24-2022 Electrocardiogram 12 Lead Ventricular Rate 76 Atrial Rate 76 P-R Interval 130 QRS Duration 94 Q-T Interval 368 QTC Calculation(Bazett) 414 P [place] 32 R [place] 45 T [place] 12 QRS Count 13 Q Onset 218 P Onset 153 P Offset 197 T Offset 402 QTC Fredericia 398 Diagnosis Class Normal Diagnosis Please see ED Provider Note for formal interpretation Confirmed by Willam Carrington ([id number]) on 02/24/2022 11:57:58 PM Normal [facility] LITHIUMon 02-24-2022 Franquez [Moles/Vol] mmol/L Normal 0.60 - 1.20 [facility] Comment on above: Performed By: #### L ITH #### [facility] [address] [place] [address] Provider Note - ED v3on 02-09 Provider [...] told that her lithium was held by [facility] staff and she hasn't taken it in [...] patient was ordered oral ativan and atarax. [facility] nursing staff contacted by psychiatry - it was confirmed that the patient's meds were discontinued, however, the patient was started on prozac during this time. She is taking this daily, although the patient was not forthcoming about this. Pt also has a history of borderline personality disorder. She is welcome to return back to the [facility]. On reexam, pt is feeling better. She [...] Hg): 92 02-24-2022 14:16 PAST MEDICAL HISTORY ALLERGIES/INTOLERANCE S: Allergy Allergen: Compazine Type: Drug Reaction: Other [...] compliance with prescribed medication. Contact the performing [facility] [[email or web address]] laboratory to add-on definitive confirmatory testing if clinically indicated. .Toxicology scre Amphetamine Screen, Urine PRESUMPTIVE NEGATIVE CUTOFF LEVEL: 500 NG/ML Cross-reactivity has been reported with high concentrations of the following drugs: buproprion, chloroquine, chlorpromazine, ephedrine, mephentermine, fenfluramine, phentermine, phenylpropanolamine Barbiturate Screen, Urine PRESUMPTIVE NEGATIVE PRESUMPTIVE NEGATI (more content not included)... Normal [facility] TSHon 02-24-2022 TSH Qn 1.46 m[IU]/L Normal 0.44 - 3.98 [facility] Comment on above: Result Comment: TSH testing is performed using different testing methodology at [facility] than at other [facility]. Direct result comparisons should only be made within the same method. Performed By: #### T SH2 #### [facility] [address] [place] [address] Triage - EDon 02-24-2022 Triage - ED Quick Triage: Are You no Have You Given In The Last 6 Weeksno Are You Currently Breastfeedingno Chart Review: ARRIVAL INFORMATION Mode of Arrival: private vehicle CHIEF COMPLAINT ROSHAN A JOSE is a Female patient with a chief [...] obeys commands Best Verbal Response: (V5) oriented Garland Score: 15 Allergies: yes Mask applied: yes [...] Medical History, Active Electronic Signatures: João Santos (CONCHA) (Signed 24-Feb-2022 14:20) Entered: Risk Screens, Pain, Travel History, Chart Review, Scores, Past Medical History Authored: Quick Triage, Risk Screens, Pain, Travel History, Chart Review, Scores, Past Medical History Last Updated: 24-Feb-2022 14:20 by João Santos (RN) Normal [facility] URINALYSISon 02-24-2022 Appearance (U) CLEAR Normal CLEAR [facility] Comment on above: Performed By: #### U A #### [facility] [address] [place] [address] Bilirubin Ql (U) Negative Normal NEGATIVE [facility] Comment on above: Performed By: #### U A #### [facility] [address] [place] [address] Color (U) STRAW Normal STRAW,YELLOW [facility] Comment on above: Performed By: #### U A #### [facility] [address] [place] [address] Glucose Ql (U) Negative Normal NEGATIVE [facility] Comment on above: Performed By: #### U A #### [facility] [address] [place] [address] Hemoglobin Ql (U) Negative Normal NEGATIVE [facility] Comment on above: Performed By: #### U A #### [facility] [address] [place] [address] Ketones Ql (U) Negative Normal NEGATIVE [facility] Comment on above: Performed By: #### U A #### [facility] [address] [place] [address] Leukocyte esterase Test strip Ql (U) Negative Normal NEGATIVE [facility] Comment on above: Performed By: #### U A #### [facility] [address] [place] [address] Nitrite Ql (U) Negative Normal NEGATIVE [facility] Comment on above: Performed By: #### U A #### [facility] [address] [place] [address] pH (U) 7.0 [pH] Normal 5.0 - 8.0 [facility] Comment on above: Performed By: #### U A #### [facility] [address] [place] [address] Protein Ql (U) Negative Normal NEGATIVE [facility] Comment on above: Performed By: #### U A #### [facility] [address] [place] [address] Specific gravity (U) [Rel density] 1.005 Normal 1.005 - 1.035 [facility] Comment on above: Performed By: #### U A #### [facility] [address] [place] [address] Urobilinogen (U) [Mass/Vol] mg/dL Normal 0.0 - 1.9 [facility] Comment on above: Performed By: #### U A #### [facility] [address] [place] [id number] Amphetamine Screen Ql (U)Ord ered By: Bogdan Barnes on 02-06-2022 Amphetamines Ql (U) Negative Negative [facility] Barbiturates [Presence] in U rineOrdered By: Bogdan Barnes on 02-06-2022 Barbiturates Ql (U) Negative Negative [facility] Basophils Auto (Bld) [#/Vol] Ordered By: Bogdan Barnes on 02-06-2022 Basophils (Bld) [#/Vol] 0.0 10*3/uL 0.0-0.2 [facility] Basophils/100 WBC Auto (Bld) Ordered By: Bogdan Barnes on 02-06-2022 Basophils/100 WBC (Bld) 0.2 % . [facility] Benzodiazepines [Presence] i n UrineOrdered By: Bogdan Barnes on 02-06-2022 Benzodiazepines Ql (U) Negative Negative [facility] Bilirubin Test strip Ql (U)O rdered By: Bogdan Barnes on 02-06-2022 Bilirubin Ql (U) Negative Negative [facility] Body fluid albumin measureme nt (mass/volume)Ordered By: Bogdan Barnes on 02-06-2022 Albumin (Body fld) [Mass/Vol] 3.7 g/dL 3.2-5.5 [facility] Cannabinoids [Presence] in U rine by Screen methodOrdered By: Bogdan Barnes on 02-06-2022 Cannabinoids Screen Ql (U) Positive Negative [facility] Comment on above: These are unconfirme d results and should not be used for legal purposes. Drug Cut-Off Concentration: AMPH 1000 ng/mL YISEL 200 ng/mL LUCA 200 ng/mL COCM 300 ng/mL OP 300 ng/mL PCP 25 ng/mL THC 20 ng/mL Color Auto (U)Ordered By: Sadia Barnes on 02-06-2022 Color (U) Yellow Yellow [facility] Creatinine and Glomerular fi ltration rate.predicted panel (S/P/Bld)Ordered By: Bogdan Barnes on 02-06-2022 Creatinine [Mass/Vol] 0.79 mg/dL 0.44-1.03 [facility] Eosinophils Auto (Bld) [#/Vo l]Ordered By: Bogdan Barnes on 02-06-2022 Eosinophils (Bld) [#/Vol] 0.0 10*3/uL 0.0-0.45 [facility] Eosinophils/100 WBC Auto (Bl d)Ordered By: Bogdan Barnes on 02-06-2022 Eosinophils/100 WBC (Bld) 0.3 % . [facility] Erythrocyte distribution wid th Auto (RBC) [Ratio]Ordered By: Bogdan Barnes on 02-06-2022 Erythrocyte distribution width (RBC) [Ratio] 13.5 % 11.9-15.3 [facility] Estimated glomerular filtrat ion rate (GFR) non- AmericanOrdered By: Bogdan Barnes on 02-06-2022 GFR/1.73 sq M.predicted among non-blacks MDRD (S/P/Bld) [Vol rate/Area] > 60 mL/Min [facility] Globulin Calc (S) [Mass/Vol] Ordered By: Bogdan Barnes on 02-06-2022 Globulin (S) [Mass/Vol] 3.1 g/dL [facility] HCG ( test) IA.rapi d Ql (U)Ordered By: Bogdan Barnes on 02-06-2022 HCG ( test) Ql (U) Negative [facility] Hematocrit Auto (Bld) [Volum e fraction]Ordered By: Bogdan Barnes on 02-06-2022 Hematocrit (Bld) [Volume fraction] 43.9 % 34.0-46.4 [facility] Hemoglobin [Mass/volume] in BloodOrdered By: Bogdan Barnes on 02-06-2022 Hemoglobin (Bld) [Mass/Vol] 14.4 g/dL 11.8-15.4 [facility] Ketones Auto test strip (U) [Mass/Vol]Ordered By: Bogdan Barnes on 02-06-2022 Ketones (U) [Mass/Vol] Negative Negative [facility] - Drug toxicology Ordered By: Bogdan Barnes on 02-06-2022 Opiates Ql (U) Negative Negative [facility] - Hematology and Cell countsOrdered By: Bogdan Barnes on 02-06-2022 Nucleated RBC/100 WBC (Bld) [Ratio] 0.1 % 0-0.5 [facility] Leukocytes [#/volume] in Blo od by Automated countOrdered By: Bogdan Barnes on 02-06-2022 WBC (Bld) [#/Vol] 7.5 10*3/uL 4.5-11.0 [facility] Lymphocytes Auto (Bld) [#/Vo l]Ordered By: Bogdan Barnes on 02-06-2022 Lymphocytes (Bld) [#/Vol] 1.1 10*3/uL 1.00-4.8 [facility] Lymphocytes/100 WBC Auto (Bl d)Ordered By: Bogdan Barnes on 02-06-2022 Lymphocytes/100 WBC (Bld) 14.2 % . [facility] MCH Auto (RBC) [Entitic mass ]Ordered By: Bogdan Barnes on 02-06-2022 MCH (RBC) [Entitic mass] 31.2 pg 24.7-34.3 [facility] MCHC Auto (RBC) [Mass/Vol]Or dered By: Bogdan Barnes on 02-06-2022 MCHC (RBC) [Mass/Vol] 32.9 g/dL 32.0-35.0 [facility] MCV Auto (RBC) [Entitic vol] Ordered By: Bogdan Barnes on 02-06-2022 MCV (RBC) [Entitic vol] 94.9 fL 80-100 [facility] Monocytes Auto (Bld) [#/Vol] Ordered By: Bogdan Barnes on 02-06-2022 Monocytes (Bld) [#/Vol] 0.5 10*3/uL 0.0-0.8 [facility] Monocytes/100 WBC Auto (Bld) Ordered By: Bogdan Barnes on 02-06-2022 Monocytes/100 WBC (Bld) 6.6 % . [facility] Neutrophils Auto (Bld) [#/Vo l]Ordered By: Bogdan Barnes on 02-06-2022 Neutrophils (Bld) [#/Vol] 5.9 10*3/uL 1.8-7.7 [facility] Neutrophils/100 WBC Auto (Bl d)Ordered By: Bogdan Barnes on 02-06-2022 Neutrophils/100 WBC (Bld) 78.7 % . [facility] Nitrite Test strip Ql (U)Ord ered By: Bogdan Barnes on 02-06-2022 Nitrite Ql (U) Negative Negative [facility] No Panel InformationOrdered By: Bogdan Barnes on 02-06-2022 Estimated GFR () > 60 mL/Min [facility] Comment on above: GFR estimated refere nce range: According to KDOQI guidelines, <60 ml/min/1.73m2 is sufficient to diagnose a patient with chronic kidney disease. Pharmacy Creatinine Clearance (Chem 92.00 [facility] Phencyclidine Screen Ql (U)O rdered By: Bogdan Barnes on 02-06-2022 Phencyclidine Ql (U) Negative Negative [facility] Platelet mean volume Auto (B ld) [Entitic vol]Ordered By: Bogdan Barnes on 02-06-2022 Platelet mean volume (Bld) [Entitic vol] 9.0 fL 6.3-10.7 [facility] Platelets Auto (Bld) [#/Vol] Ordered By: Bogdan Barnes on 02-06-2022 Platelets (Bld) [#/Vol] 258 10*3/uL 150-450 [facility] Protein Auto test strip (U) [Mass/Vol]Ordered By: Bogdan Barnes on 02-06-2022 Protein (U) [Mass/Vol] Negative Negative [facility] Protein [Mass/volume] in Ser um or PlasmaOrdered By: Bogdan Barnes on 02-06-2022 Protein [Mass/Vol] 6.8 g/dL 6.1-7.9 [facility] RBC Auto (Bld) [#/Vol]Ordere d By: Bogdan Barnes on 02-06-2022 RBC (Bld) [#/Vol] 4.63 10*6/uL 3.60-5.00 [facility] Serum or plasma alanine nielsen otransferase measurement without P-5'-P (enzymatic activiOrdered By: Bogdan Barnes on 02-06-2022 ALT No additional P-5'-P [Catalytic activity/Vol] 31 U/L 10-60 [facility] Serum or plasma albumin/glob ulin mass ratioOrdered By: Bogdan Barnes on 02-06-2022 Albumin/Globulin [Mass ratio] 1.2 {ratio} [facility] Serum or plasma alkaline alvina sphatase measurement (enzymatic activity/volume)Ordered By: Bogdan Barnes on 02-06-2022 ALP [Catalytic activity/Vol] 49 U/L 32-92 [facility] Serum or plasma anion gap de terminationOrdered By: Bogdan Barnes on 02-06-2022 Anion gap [Moles/Vol] 13.8 mmol/L 6.0-15.0 [facility] Serum or plasma aspartate am inotransferase measurement (enzymatic activity/volume)Ordered By: Bogdan Barnes on 02-06-2022 AST [Catalytic activity/Vol] 24 U/L 10-42 [facility] Serum or plasma calcium cassandra urement (mass/volume)Ordered By: Bogdan Barnes on 02-06-2022 Calcium [Mass/Vol] 9.0 mg/dL 8.2-10.2 [facility] Serum or plasma chloride darian surement (moles/volume)Ordered By: Bogdan Barnes on 02-06-2022 Chloride [Moles/Vol] 103 mmol/L 95-114 [facility] Serum or plasma ethanol cassandra urement (mass/volume)Ordered By: Bogdan Barnes on 02-06-2022 Ethanol [Mass/Vol] mg/dL [facility] Ethanol [Mass/Vol] TNP [facility] Comment on above: Test not performed Serum or plasma glucose cassandra urement (mass/volume)Ordered By: Bogdan Barnes on 02-06-2022 Glucose [Mass/Vol] 101 mg/dL 70-100 [facility] Comment on above: ADA recommended refe rence rangeRandom Glucose Reference Range is dependent on time and content of last meal. Glucose of more than 200 mg/dL in a nonstressed, ambulatory subject supports the diagnosis of Diabetes Mellitus. Serum or plasma potassium me asurement (moles/volume)Ordered By: Bogdan Barnes on 02-06-2022 Potassium [Moles/Vol] 3.7 mmol/L 3.5-5.1 [facility] Serum or plasma sodium measu rement (moles/volume)Ordered By: Bogdan Barnes on 02-06-2022 Sodium [Moles/Vol] 139 mmol/L 136-146 [facility] Serum or plasma total biliru bin measurement (mass/volume)Ordered By: Bogdan Barnes on 02-06-2022 Bilirubin [Mass/Vol] 0.5 mg/dL 0.3-1.2 [facility] Serum or plasma total carbon dioxide measurement (moles/volume)Ordered By: Bogdan Barnes on 02-06-2022 CO2 [Moles/Vol] 25.9 mmol/L 22.0-30.0 [facility] Serum or plasma urea nitroge n measurement (mass/volume)Ordered By: Bogdan Barnes on 02-06-2022 Urea nitrogen [Mass/Vol] 9 mg/dL 9-23 [facility] Specific gravity Auto test s trip (U) [Rel density]Ordered By: Bogdan Barnes on 02-06-2022 Specific gravity (U) [Rel density] 1.017 1.001-1.030 [facility] Urine clarity by refractomet ry automatedOrdered By: Bogdan Barnes on 02-06-2022 Clarity Refractometry automated (U) Clear Clear [facility] Urine cocaine detectionOrder ed By: Bogdan Barnes on 02-06-2022 Cocaine Ql (U) Negative Negative [facility] Urine glucose measurement by automated test strip (mass/volume)Ordered By: Bogdan Barnes on 02-06-2022 Glucose Auto test strip (U) [Mass/Vol] Normal mg/dL Normal [facility] Urine hemoglobin detection b y automated test stripOrdered By: Bogdan Barnes on 02-06-2022 Hemoglobin Auto test strip Ql (U) Negative Negative [facility] Urine leukocyte esterase det ection by automated test stripOrdered By: Bogdan Barnes on 02-06-2022 Leukocyte esterase Auto test strip Ql (U) Negative Negative [facility] Urobilinogen Auto test strip (U) [Mass/Vol]Ordered By: Bogdan Barnes on 02-06-2022 Urobilinogen (U) [Mass/Vol] Normal mg/dL Normal [facility] pH Auto test strip (U)Ordere d By: Bogdan Barnes on 02-06-2022 pH (U) 6.5 [pH] 5.0-9.0 [facility] CBC AUTO DIFFon 02-04-2022 BASO # 0.0 103/ul Normal 0.0-0.1 [facility] Comment on above: Performed By: #### E RUR #### [facility] [address] [place] [address] Dr. Janee Rodriguez Basophils/100 WBC (Bld) 0.2 % Normal 0.2-2.0 [facility] Comment on above: Performed By: #### E RUR #### [facility] [address] [place] [address] Dr. Janee Rodriguez EO # 0.0 103/ul Normal 0.0-0.7 [facility] Comment on above: Performed By: #### E RUR #### [facility] [address] [place] [address] Dr. Janee Rodriguez Eosinophils/100 WBC (Bld) 0.0 % Critically low 0.9-7.0 [facility] Comment on above: Performed By: #### E RUR #### [facility] [address] [place] [address] Dr. Janee Rodriguez Erythrocyte distribution width (RBC) [Ratio] 13.4 % Normal 11.0-15.0 [facility] Comment on above: Performed By: #### E RUR #### [facility] [address] [place] [address] Dr. Janee Rodriguez Hematocrit (Bld) [Volume fraction] 42.7 % Normal 36.0-48.0 [facility] Comment on above: Performed By: #### E RUR #### [facility] [address] [place] [address] Dr. Janee Rodriguez Hemoglobin (Bld) [Mass/Vol] 14.0 g/dL Normal 12.0-16.0 [facility] Comment on above: Performed By: #### E RUR #### [facility] [address] [place] [address] Dr. Janee Rodriguez IG # 0.10 10e3/ul Critically high 0.00-0.03 [facility] Comment on above: Performed By: #### E RUR #### [facility] [address] [place] [address] Dr. Janee Rodriguez IG % 0.5 % Normal 0.0-0.5 [facility] Comment on above: Performed By: #### E RUR #### [facility] [address] [place] [address] Dr. Janee Rodriguez LYMPH # 0.6 103/ul Critically low 1.2-3.8 [facility] Comment on above: Performed By: #### E RUR #### [facility] [address] [place] [address] Dr. Janee Rodriguez Lymphocytes/100 WBC (Bld) 3.3 % Critically low 20.5-60.0 [facility] Comment on above: Performed By: #### E RUR #### [facility] [address] [place] [address] Dr. Janee Rodriguez MANUAL DIFF REQ NO Normal [facility] Comment on above: Performed By: #### E RUR #### [facility] [address] [place] [address] Dr. Janee Rodriguez MCH (RBC) [Entitic mass] 31.3 pg Normal 26.7-34.0 [facility] Comment on above: Performed By: #### E RUR #### [facility] [address] [place] [address] Dr. Janee Rodriguez MCHC (RBC) [Mass/Vol] 32.8 g/dL Normal 29.9-35.2 [facility] Comment on above: Performed By: #### E RUR #### [facility] [address] [place] [address] Dr. Janee Rodriguez MCV (RBC) [Entitic vol] 95.5 fL Normal 81.0-99.0 [facility] Comment on above: Performed By: #### E RUR #### [facility] [address] [place] [address] Dr. Janee Rodriguez MONO # 0.2 103/ul Critically low 0.3-0.8 [facility] Comment on above: Performed By: #### E RUR #### [facility] [address] [place] [address] Dr. Janee Rodriguez Monocytes/100 WBC (Bld) 1.2 % Critically low 1.7-12.0 [facility] Comment on above: Performed By: #### E RUR #### [facility] [address] [place] [address] Dr. Janee Rodriguez NEUT # 18.4 103/ul Critically high 1.4-6.5 [facility] Comment on above: Performed By: #### E RUR #### [facility] [address] [place] [address] Dr. Janee Rodriguez Neutrophils/100 WBC (Bld) 94.8 % Critically high 43.0-75.0 [facility] Comment on above: Performed By: #### E RUR #### [facility] [address] [place] [address] Dr. Janee Rodriguez Platelet mean volume (Bld) [Entitic vol] 11.1 fL Normal 9.5-13.5 [facility] Comment on above: Performed By: #### E RUR #### [facility] [address] [place] [address] Dr. Janee Rodriguez PLT 211 103/ul Normal 150-450 [facility] Comment on above: Performed By: #### E RUR #### [facility] [address] [place] [address] Dr. Janee Rodriguez RBC 4.47 106/ul Normal 4.20-5.40 [facility] Comment on above: Performed By: #### E RUR #### [facility] [address] [place] [address] Dr. Janee Rodriguez WBC 19.4 103/ul Critically high 4.0-11.0 [facility] Comment on above: Performed By: #### E RUR #### [facility] [address] [place] [address] Dr. Janee Rodriguez MAGNESIUMon 09-26-2022 Magnesium [Mass/Vol] 2.3 mg/dL Normal 1.8-2.4 [facility] Comment on above: Performed By: #### M G, BMP #### [facility] [address] [place] [address] Dr. Janee Rodriguez PROF CHEM 8 (BAS METB)on Anion gap [Moles/Vol] 13.4 mmol/L Normal [facility] Comment on above: Performed By: #### M G, BMP #### [facility] [address] [place] [address] Dr. Janee Rodriguez Calcium [Mass/Vol] 9.3 mg/dL Normal 8.5-10.1 [facility] Comment on above: Performed By: #### M G, BMP #### [facility] [address] [place] [address] Dr. Janee Rodriguez Chloride [Moles/Vol] 106 mmol/L Normal 98-107 [facility] Comment on above: Performed By: #### M G, BMP #### [facility] [address] [place] [address] Dr. Janee Rodriguez CO2 [Moles/Vol] 24.1 mmol/L Normal 21.0-32.0 [facility] Comment on above: Performed By: #### M G, BMP #### [facility] [address] [place] [address] Dr. Janee Rodriguez Creatinine [Mass/Vol] 0.85 mg/dL Normal 0.55-1.02 [facility] Comment on above: Performed By: #### M G, BMP #### [facility] [address] [place] [address] Dr. Janee Rodriguez EGFR-AF PUERTO RICAN >60 Normal >=60 [facility] Comment on above: Performed By: #### M G, BMP #### [facility] [address] [place] [address] Dr. Janee Rodriguez EGFR-NON AF PUERTO RICAN >60 Normal >=60 [facility] Comment on above: Performed By: #### M G, BMP #### [facility] [address] [place] [address] Dr. Janee Rodriguez Glucose [Mass/Vol] 189 mg/dL Critically high 74-106 [facility] Comment on above: Performed By: #### M G, BMP #### [facility] [address] [place] [address] Dr. Janee Rodriguez Potassium [Moles/Vol] 3.5 mmol/L Normal 3.5-5.1 [facility] Comment on above: Performed By: #### M G, BMP #### [facility] [address] [place] [address] Dr. Janee Rodriguez Sodium [Moles/Vol] 140 mmol/L Normal 136-145 [facility] Comment on above: Performed By: #### M Marco, BMP #### [facility] [address] [place] [address] Dr. Janee Rodriguez Urea nitrogen [Mass/Vol] 12.0 mg/dL Normal 7.0-18.0 [facility] Comment on above: Performed By: #### Margarita Lara, BMP #### [facility] [address] [place] [address] Dr. Janee Rodriguez Urea nitrogen/Creatinine [Mass ratio] 14.1 mg/mg Normal [facility] Comment on above: Performed By: #### Margarita Lara, BMP #### [facility] [address] [place] [address] Dr. Janee Rodriguez CBC AUTO DIFFon 02-03-2022 BASO # 0.0 103/ul Normal 0.0-0.1 [facility] Comment on above: Performed By: #### C BC #### [facility] [address] [place] [address] Dr. Janee Rodriguez Basophils/100 WBC (Bld) 0.4 % Normal 0.2-2.0 [facility] Comment on above: Performed By: #### C BC #### [facility] [address] [place] [address] Dr. Janee Rodriguez EO # 0.0 103/ul Normal 0.0-0.7 [facility] Comment on above: Performed By: #### C BC #### [facility] [address] [place] [address] Dr. Janee Rodriguez Eosinophils/100 WBC (Bld) 0.0 % Critically low 0.9-7.0 [facility] Comment on above: Performed By: #### C BC #### [facility] [address] [place] [address] Dr. Janee Rodriguez Erythrocyte distribution width (RBC) [Ratio] 13.3 % Normal 11.0-15.0 [facility] Comment on above: Performed By: #### C BC #### [facility] [address] [place] [address] Dr. Janee Rodriguez Hematocrit (Bld) [Volume fraction] 42.9 % Normal 36.0-48.0 [facility] Comment on above: Performed By: #### C BC #### [facility] [address] [place] [address] Dr. Janee Rodriguez Hemoglobin (Bld) [Mass/Vol] 14.1 g/dL Normal 12.0-16.0 [facility] Comment on above: Performed By: #### C BC #### [facility] [address] [place] [address] Dr. Janee Rodriguez IG # 0.05 10e3/ul Critically high 0.00-0.03 [facility] Comment on above: Performed By: #### C BC #### [facility] [address] [place] [address] Dr. Jnaee Rodriguez IG % 0.4 % Normal 0.0-0.5 [facility] Comment on above: Performed By: #### C BC #### [facility] [address] [place] [address] Dr. Janee Rodriguez LYMPH # 0.4 103/ul Critically low 1.2-3.8 [facility] Comment on above: Performed By: #### C BC #### [facility] [address] [place] [address] Dr. Janee Rodriguez Lymphocytes/100 WBC (Bld) 3.1 % Critically low 20.5-60.0 [facility] Comment on above: Result Comment: same as 02/02 Performed By: #### C BC #### [facility] [address] [place] [address] Dr. Janee Rodriguez MANUAL DIFF REQ NO Normal [facility] Comment on above: Performed By: #### C BC #### [facility] [address] [place] [address] Dr. Janee Rodriguez MCH (RBC) [Entitic mass] 31.5 pg Normal 26.7-34.0 [facility] Comment on above: Performed By: #### C BC #### [facility] [address] [place] [address] Dr. Janee Rodriguez MCHC (RBC) [Mass/Vol] 32.9 g/dL Normal 29.9-35.2 [facility] Comment on above: Performed By: #### C BC #### [facility] [address] [place] [address] Dr. Janee Rodriguez MCV (RBC) [Entitic vol] 95.8 fL Normal 81.0-99.0 [facility] Comment on above: Performed By: #### C BC #### [facility] [address] [place] [address] Dr. Janee Rodriguez MONO # 0.1 103/ul Critically low 0.3-0.8 [facility] Comment on above: Performed By: #### C BC #### [facility] [address] [place] [address] Dr. Janee Rodriguez Monocytes/100 WBC (Bld) 0.6 % Critically low 1.7-12.0 [facility] Comment on above: Performed By: #### C BC #### [facility] [address] [place] [address] Dr. Janee Rodriguez NEUT # 10.7 103/ul Critically high 1.4-6.5 [facility] Comment on above: Performed By: #### C BC #### [facility] [address] [place] [address] Dr. Janee Rodriguez Neutrophils/100 WBC (Bld) 95.5 % Critically high 43.0-75.0 [facility] Comment on above: Performed By: #### C BC #### [facility] [address] [place] [address] Dr. Janee Rodriguez Platelet mean volume (Bld) [Entitic vol] 11.6 fL Normal 9.5-13.5 [facility] Comment on above: Performed By: #### C BC #### [facility] [address] [place] [address] Dr. Janee Rodriguez PLT 222 103/ul Normal 150-450 [facility] Comment on above: Performed By: #### C BC #### [facility] [address] [place] [address] Dr. Janee Rodriguez RBC 4.48 106/ul Normal 4.20-5.40 [facility] Comment on above: Performed By: #### C BC #### [facility] [address] [place] [address] Dr. Janee Rodriguez WBC 11.3 103/ul Critically high 4.0-11.0 [facility] Comment on above: Performed By: #### C BC #### [facility] [address] [place] [address] Dr. Janee Rodriguez ER URINE PROFILEon 2 Bilirubin Ql (U) Negative Normal NEGATIVE [facility] Comment on above: Performed By: #### E RUR #### [facility] [address] [place] [address] Dr. Janee Rodriguez Clarity (U) CLEAR Normal CLEAR [facility] Comment on above: Performed By: #### E RUR #### [facility] [address] [place] [address] Dr. Janee Rodriguez Color (U) LT. YELLOW Normal YELLOW [facility] Comment on above: Performed By: #### E RUR #### [facility] [address] [place] [address] Dr. Janee Rodriguez ERUAHD A micrscopic examination will be performed if indicated. Normal [facility] Comment on above: Performed By: #### E RUR #### [facility] [address] [place] [address] Dr. Janee Rodriguez Glucose Ql (U) Negative Normal NEGATIVE [facility] Comment on above: Performed By: #### E RUR #### [facility] [address] [place] [address] Dr. Janee Rodriguez Hemoglobin Ql (U) Negative Normal NEGATIVE [facility] Comment on above: Performed By: #### E RUR #### [facility] [address] [place] [address] Dr. Janee Rodriguez Ketones Ql (U) Negative Normal NEGATIVE [facility] Comment on above: Performed By: #### E RUR #### [facility] [address] [place] [address] Dr. Janee Rodriguez LEUKOCYTES Negative Normal NEGATIVE [facility] Comment on above: Performed By: #### E RUR #### [facility] [address] [place] [address] Dr. Janee Rodriguez Nitrite Ql (U) Negative Normal NEGATIVE [facility] Comment on above: Performed By: #### E RUR #### [facility] [address] [place] [address] Dr. Janee Rodriguez pH (U) 6.0 [pH] Normal 5-9 [facility] Comment on above: Performed By: #### E RUR #### [facility] [address] [place] [address] Dr. Janee Rodriguez SPEC GRAVITY 1.010 Normal 1.005-<=1.025 [facility] Comment on above: Performed By: #### E RUR #### [facility] [address] [place] [address] Dr. Janee Rodriguez UA PROTEIN Negative Normal NEGATIVE/ TRACE [facility] Comment on above: Performed By: #### E RUR #### [facility] [address] [place] [address] Dr. Janee Rodriguez UR MICRO IND NOT INDICATED Normal [facility] Comment on above: Performed By: #### E RUR #### [facility] [address] [place] [address] Dr. Janee Rodriguez Urobilinogen Qn (U) 0.2 {Mumtaz'U}/dL Normal 0.2 - 1. 0 [facility] Comment on above: Performed By: #### E RUR #### [facility] [address] [place] [address] Dr. Janee Rodriguez MAGNESIUMon 02-03-2022 Magnesium [Mass/Vol] 2.5 mg/dL Critically high 1.8-2.4 [facility] Comment on above: Performed By: #### M G, BMP #### [facility] [address] [place] [address] Dr. Janee Rodriguez PROF CHEM 8 (BAS METB)on Anion gap [Moles/Vol] 15.9 mmol/L Normal [facility] Comment on above: Performed By: #### M G, BMP #### [facility] [address] [place] [address] Dr. Janee Rodriguez Calcium [Mass/Vol] 8.9 mg/dL Normal 8.5-10.1 [facility] Comment on above: Performed By: #### M G, BMP #### [facility] [address] [place] [address] Dr. Janee Rodriguez Chloride [Moles/Vol] 107 mmol/L Normal 98-107 [facility] Comment on above: Performed By: #### M G, BMP #### [facility] [address] [place] [address] Dr. Janee Rodriguez CO2 [Moles/Vol] 22.0 mmol/L Normal 21.0-32.0 [facility] Comment on above: Performed By: #### M G, BMP #### [facility] [address] [place] [address] Dr. Janee Rodriguez Creatinine [Mass/Vol] 0.77 mg/dL Normal 0.55-1.02 [facility] Comment on above: Performed By: #### M G, BMP #### [facility] [address] [place] [address] Dr. Janee Rodriguez EGFR-AF PUERTO RICAN >60 Normal >=60 [facility] Comment on above: Performed By: #### M G, BMP #### [facility] [address] [place] [address] Dr. Janee Rodriguez EGFR-NON AF PUERTO RICAN >60 Normal >=60 [facility] Comment on above: Performed By: #### M G, BMP #### [facility] [address] [address] [address] Janee Rodriguez Glucose [Mass/Vol] 143 mg/dL Critically high 74-106 [facility] Comment on above: Performed By: #### M G, BMP #### [facility] [address] [place] [address] Dr. Janee Rodriguez Potassium [Moles/Vol] 3.9 mmol/L Normal 3.5-5.1 [facility] Comment on above: Performed By: #### M G, BMP #### [facility] [address] [address] [address] Janee Rodriguez Sodium [Moles/Vol] 141 mmol/L Normal 136-145 [facility] Comment on above: Performed By: #### M G, BMP #### [facility] [address] [place] [address] Dr. Janee Rodriguez Urea nitrogen [Mass/Vol] 11.0 mg/dL Normal 7.0-18.0 [facility] Comment on above: Performed By: #### M G, BMP #### [facility] [address] [place] [address] Dr. Janee Rodriguez Urea nitrogen/Creatinine [Mass ratio] 14.3 mg/mg Normal [facility] Comment on above: Performed By: #### M G, BMP #### [facility] [address] [place] [address] Dr. aJnee Rodriguez RESPIRATORY PANEL PLUSon Adenovirus Not detected Normal NOT DETECTED [facility] Comment on above: Performed By: #### E RUR #### [facility] [address] [place] [address] Dr. Janee Anderson. Parapertusis Not detected Normal NOT DETECTED [facility] Comment on above: Performed By: #### E RUR #### [facility] [address] [place] [address] Dr. Janee Zimmerman Pertussis Not detected Normal NOT DETECTED [facility] Comment on above: Performed By: #### E RUR #### [facility] [address] [place] [address] Dr. Janee Rodriguez Chlamydia Pneumoniae Not detected Normal NOT DETECTED [facility] Comment on above: Performed By: #### E RUR #### [facility] [address] [place] [address] Dr. Janee Rodriguez Coronavirus 229E Not detected Normal NOT DETECTED [facility] Comment on above: Performed By: #### E RUR #### [facility] [address] [place] [address] Dr. Janee Rodriguez Coronavirus HKU1 Not detected Normal NOT DETECTED [facility] Comment on above: Performed By: #### E RUR #### [facility] [address] [place] [address] Dr. Janee Rodriguez Coronavirus NL63 Not detected Normal NOT DETECTED [facility] Comment on above: Performed By: #### E RUR #### [facility] [address] [place] [address] Dr. Janee Rodriguez Coronavirus OC43 Not detected Normal NOT DETECTED [facility] Comment on above: Performed By: #### E RUR #### [facility] [address] [place] [address] Dr. Janee Rodriguez Influenza A H1 2009 Not detected Normal NOT DETECTED T [facility] Comment on above: Performed By: #### E RUR #### [facility] [address] [place] [address] Dr. Janee Rodriguez Influenza A H3 Detected Abnormal NOT DETECTED [facility] Comment on above: Performed By: #### E RUR #### [facility] [address] [place] [address] Dr. Janee Rodriguez Influenza B Not detected Normal NOT DETECTED [facility] Comment on above: Performed By: #### E RUR #### [facility] [address] [place] [address] Dr. Janee Rodriguez Metapneumovirus Not detected Normal NOT DETECTED [facility] Comment on above: Performed By: #### E RUR #### [facility] [address] [place] [address] Dr. Janee Rodriguez Mycoplas. Pneumoniae Not detected Normal NOT DETECTED [facility] Comment on above: Performed By: #### E RUR #### [facility] [address] [place] [address] Dr. Janee Rodriguez Parainfluenza 1 Not detected Normal NOT DETECTED [facility] Comment on above: Performed By: #### E RUR #### [facility] [address] [place] [address] Dr. Janee Rodriguez Parainfluenza 2 Not detected Normal NOT DETECTED [facility] Comment on above: Performed By: #### E RUR #### [facility] [address] [place] [address] Dr. Janee Rodriguez Parainfluenza 3 Not detected Normal NOT DETECTED [facility] Comment on above: Performed By: #### E RUR #### [facility] [address] [place] [address] Dr. Janee Rodriguez Parainfluenza 4 Not detected Normal NOT DETECTED [facility] Comment on above: Performed By: #### E RUR #### [facility] [address] [place] [address] Dr. Janee Rodriguez Rhino/Enterovirus Not detected Normal NOT DETECTED [facility] Comment on above: Performed By: #### E RUR #### [facility] [address] [place] [address] Dr. Janee Rodriguez RP2 Header 1 RESPIRATORY PANEL: VIRUSES Normal [facility] Comment on above: Performed By: #### E RUR #### [facility] [address] [place] [address] Dr. Janee Rodriguez RP2 Header 2 RESPIRATORY PANEL: BACTERIA Normal [facility] Comment on above: Performed By: #### E RUR #### [facility] [address] [place] [address] Dr. Janee Rodriguez RSV Not detected Normal NOT DETECTED [facility] Comment on above: Performed By: #### E RUR #### [facility] [address] [place] [address] Dr. Janee Rodriguez SARS-CoV-2 (COVID-19) RNA HEENA+probe Ql (Unsp spec) Not detected Normal NOT DETECTED [facility] Comment on above: Performed By: #### E RUR #### [facility] [address] [place] [address] Dr. Janee Rodriguez BLOOD GASES BTYon 02-02-2022 02 MODE VAPOTHERM [facility] Comment on above: Performed By: #### A BG #### [facility] [address] [place] [address] Dr. Janee Rodriguez ALLENS TEST Positive [facility] Comment on above: Performed By: #### A BG #### [facility] [address] [place] [address] Dr. Janee Rodriguez Base excess Calc (Bld) [Moles/Vol] -5.0000 mmol/L Critically low -2.0-2.0 [facility] Comment on above: Performed By: #### A BG #### [facility] [address] [place] [address] Dr. Janee Rodriguez BIPAP PRESSURE [facility] Comment on above: Performed By: #### A BG #### [facility] [address] [place] [address] Dr. Janee Rodriguez CPAP [facility] Comment on above: Performed By: #### A BG #### [facility] [address] [place] [address] Dr. Janee Rodriguez FIO2 40.00 % [facility] Comment on above: Performed By: #### A BG #### [facility] [address] [place] [address] Dr. Janee Rodriguez HCO3 (Bld) [Moles/Vol] 21.1 mmol/L Critically low 22.0-26. 0 [facility] Comment on above: Performed By: #### A BG #### [facility] [address] [place] [address] Dr. Janee Rodriguez LPM 30 [facility] Comment on above: Performed By: #### A BG #### [facility] [address] [place] [address] Dr. Janee Rodriguez MINUTE VOLUME Normal [facility] Comment on above: Performed By: #### A BG #### [facility] [address] [place] [address] Dr. Janee Rodriguez Oxygen (Bld) [Partial pressure] 77.7 mm[Hg] Critically low 80.0-100.0 [facility] Comment on above: Performed By: #### A BG #### [facility] [address] [place] [address] Dr. Janee Rodriguez Oxygen saturation in Blood 96.3 % Normal 95.0-100.0 [facility] Comment on above: Performed By: #### A BG #### [facility] [address] [place] [address] Dr. Janee Rodriguez PCO2 30.1 mmHg Critically low 35.0-45.0 [facility] Comment on above: Performed By: #### A BG #### [facility] [address] [place] [address] Dr. Janee Rodriguez PEEP [facility] Comment on above: Performed By: #### A BG #### [facility] [address] [place] [address] Dr. Janee Rodriguez pH (Bld) 7.419 [pH] Normal 7.350-7.450 [facility] Comment on above: Performed By: #### A BG #### [facility] [address] [place] [address] Dr. Janee Rodriguez PIP [facility] Comment on above: Performed By: #### A BG #### [facility] [address] [place] [address] Dr. Janee Rodriguez PS [facility] Comment on above: Performed By: #### A BG #### [facility] [address] [place] [address] Dr. Janee Rodriguez PUNCTURE SITE LR [facility] Comment on above: Performed By: #### A BG #### [facility] [address] [place] [address] Dr. Janee Rodriguez RATE [facility] Comment on above: Performed By: #### A BG #### [facility] [address] [place] [address] Dr. Janee Rodriguez VENT MODE Normal [facility] Comment on above: Performed By: #### A BG #### [facility] [address] [place] [address] Dr. Janee Rodriguez VT Normal [facility] Comment on above: Performed By: #### A BG #### [facility] [address] [place] [address] Dr. Janee Rodriguez CBC W MANUAL DIFFon 02-03-20 22 ATYPICAL LYMPH # Normal [facility] Comment on above: Performed By: #### E RUR #### [facility] [address] [place] [address] Dr. Janee Rodriguez ATYPICAL LYMPH % Normal [facility] Comment on above: Performed By: #### E RUR #### [facility] [address] [place] [address] Dr. Janee Rodriguez BAND # 0.3 103/ul Normal 0.0-0.3 [facility] Comment on above: Performed By: #### E RUR #### [facility] [address] [place] [address] Dr. Janee Rodriguez BAND % 3 % Normal 0-5 [facility] Comment on above: Performed By: #### E RUR #### [facility] [address] [place] [address] Dr. Janee Rodriguez BASOM # 0.00 103/ul Normal 0.00-0.10 [facility] Comment on above: Performed By: #### E RUR #### [facility] [address] [place] [address] Dr. Janee Rodriguez BASOM % 0.0 % Critically low 0.2-2.0 [facility] Comment on above: Performed By: #### E RUR #### [facility] [address] [place] [address] Dr. Janee Rodriguez BLAST # Normal [facility] Comment on above: Performed By: #### E RUR #### [facility] [address] [place] [address] Dr. Janee Rodriguez BLAST % Normal [facility] Comment on above: Performed By: #### E RUR #### [facility] [address] [place] [address] Dr. Janee Rodriguez CORRECTED WBC Normal 4.0-11.0 [facility] Comment on above: Performed By: #### E RUR #### [facility] [address] [place] [address] Dr. Janee Rodriguez EOS # 0.00 103/ul Normal 0.00-0.70 [facility] Comment on above: Performed By: #### E RUR #### [facility] [address] [place] [address] Dr. Janee Rodriguez EOS% 0.0 % Critically low 0.9-7.0 [facility] Comment on above: Performed By: #### E RUR #### [facility] [address] [place] [address] Dr. Janee Rodriguez HCT 41.4 % Normal 36.0-48.0 [facility] Comment on above: Performed By: #### E RUR #### [facility] [address] [place] [address] Dr. Janee Rodriguez HGB 13.8 g/dl Normal 12.0-16.0 [facility] Comment on above: Performed By: #### E RUR #### [facility] [address] [place] [address] Dr. Janee Rodriguez LYMPHM # 0.34 103/ul Critically low 1.20-3.80 [facility] Comment on above: Performed By: #### E RUR #### [facility] [address] [place] [address] Dr. Janee Rodriguez LYMPHM% 3.0 % Critically low 20.5-60.0 [facility] Comment on above: Performed By: #### E RUR #### [facility] [address] [place] [address] Dr. Janee Rodriguez MCH 31.3 pg Normal 26.7-34.0 [facility] Comment on above: Performed By: #### E RUR #### [facility] [address] [place] [address] Dr. Janee Rodriguez MCHC 33.3 g/dl Normal 29.9-35.2 [facility] Comment on above: Performed By: #### E RUR #### [facility] [address] [place] [address] Dr. Janee Rodriguez MCV 93.9 fL Normal 81.0-99.0 [facility] Comment on above: Performed By: #### E RUR #### [facility] [address] [place] [address] Dr. Janee Rodriguez METAMYELOCYTE # Normal [facility] Comment on above: Performed By: #### E RUR #### [facility] [address] [place] [address] Dr. Janee Rodriguez METAMYELOCYTE % Normal [facility] Comment on above: Performed By: #### E RUR #### [facility] [address] [place] [address] Dr. Janee Rodriguez MONOM# 0.67 103/ul Normal 0.30-0.80 [facility] Comment on above: Performed By: #### E RUR #### [facility] [address] [place] [address] Dr. Janee Rodriguez MONOM% 6.0 % Normal 1.7-12.0 [facility] Comment on above: Performed By: #### E RUR #### [facility] [address] [place] [address] Dr. Janee Rodriguez MPV 10.5 fL Normal 9.5-13.5 [facility] Comment on above: Performed By: #### E RUR #### [facility] [address] [place] [address] Dr. Janee Rodriguez MYELOCYTE # Normal [facility] Comment on above: Performed By: #### E RUR #### [facility] [address] [place] [address] Dr. Janee Rodriguez MYELOCYTE % Normal [facility] Comment on above: Performed By: #### E RUR #### [facility] [address] [place] [address] Dr. Janee Rodriguez NRBC Normal [facility] Comment on above: Performed By: #### E RUR #### [facility] [address] [address] [address] Janee Rodriguez PLT 210 103/ul Normal 150-450 [facility] Comment on above: Performed By: #### E RUR #### [facility] [address] [address] [address] Janee Rodriguez RBC 4.41 106/ul Normal 4.20-5.40 [facility] Comment on above: Performed By: #### E RUR #### [facility] [address] [place] [address] Dr. Janee Rodriguez RDW 13.2 % Normal 11.0-15.0 [facility] Comment on above: Performed By: #### E RUR #### [facility] [address] [place] [address] Dr. Janee Rodriguez SEG # 9.86 103/ul Critically high 1.40-6.50 [facility] Comment on above: Performed By: #### E RUR #### [facility] [address] [place] [address] Dr. Janee Rodriguez SEG % 88.0 % Critically high 43.0-75.0 [facility] Comment on above: Performed By: #### E RUR #### [facility] [address] [place] [address] Dr. Janee Rodriguez WBC 11.2 103/ul Critically high 4.0-11.0 [facility] Comment on above: Performed By: #### E RUR #### [facility] [address] [place] [address] Dr. Janee Rodriguez CTA CHEST WO W [...] MALISSA FRIAS Date: 2022-02-02 17:00 Normal [facility] Covid-19 PCR (CVDTBH)on 01-11 SARS-CoV-2 (COVID-19) RNA HEENA+probe Ql (Unsp spec) Not detected Normal NOT DETECTED [facility] Comment on above: Result Comment: When diagnostic [...] for this test is supported by the [employer] of Health and Human Service's declaration that [...] used). Performed By: #### C VDTBH #### [facility] [address] [place] [address] Dr. Janee Rodriguez D-DIMERon 02-02-2022 D-DIMER 1.15 mg/L FEU Critically high <=0.59 [facility] Comment on above: Performed By: #### D DIM #### [facility] [address] [address] [address] Janee Rodriguez D-DIMER COMMENTS SEE BELOW Normal [facility] Comment on above: Result Comment: Incr eases [...] hospitalization. Performed By: #### D DIM #### [facility] [address] [place] [address] Dr. Janee Rodriguez PREG HCG QUALon 02-02-2022 , QUAL Negative Normal NEGATIVE [facility] Comment on above: Performed By: #### E RUR #### [facility] [address] [place] [address] Dr. Janee Rodriguez PROF CHEM 8 (BAS METB)on Anion gap [Moles/Vol] 13.8 mmol/L Normal Th [facility] Comment on above: Performed By: #### B MP #### [facility] [address] [place] [address] Dr. Janee Rodriguez Calcium [Mass/Vol] 9.1 mg/dL Normal 8.5-10.1 [facility] Comment on above: Performed By: #### B MP #### [facility] [address] [place] [address] Dr. Janee Rodriguez Chloride [Moles/Vol] 105 mmol/L Normal 98-107 [facility] Comment on above: Performed By: #### B MP #### [facility] [address] [place] [address] Dr. Janee Rodriguez CO2 [Moles/Vol] 23.9 mmol/L Normal 21.0-32.0 [facility] Comment on above: Performed By: #### B MP #### [facility] [address] [place] [address] Dr. Janee Rodriguez Creatinine [Mass/Vol] 0.91 mg/dL Normal 0.55-1.02 [facility] Comment on above: Performed By: #### B MP #### [facility] [address] [address] [address] Janee Rodriguez EGFR-AF PUERTO RICAN >60 Normal >=60 [facility] Comment on above: Performed By: #### B MP #### [facility] [address] [address] [address] Janee Rodriguez EGFR-NON AF PUERTO RICAN >60 Normal >=60 [facility] Comment on above: Performed By: #### B MP #### [facility] [address] [address] [address] Janee Rodriguez Glucose [Mass/Vol] 109 mg/dL Critically high 74-106 [facility] Comment on above: Performed By: #### B MP #### [facility] [address] [place] [address] Dr. Janee Rodriguez Potassium [Moles/Vol] 3.7 mmol/L Normal 3.5-5.1 [facility] Comment on above: Performed By: #### B MP #### [facility] [address] [place] [address] Dr. Janee Rodriguez Sodium [Moles/Vol] 139 mmol/L Normal 136-145 [facility] Comment on above: Performed By: #### B MP #### [facility] [address] [place] [address] Dr. Janee Rodriguez Urea nitrogen [Mass/Vol] 8.0 mg/dL Normal 7.0-18.0 [facility] Comment on above: Performed By: #### B MP #### [facility] [address] [place] [address] Dr. Janee Rodriguez Urea nitrogen/Creatinine [Mass ratio] 8.8 mg/mg Normal [facility] Comment on above: Performed By: #### B MP #### [facility] [address] [place] [address] Dr. Janee Rodriguez XR CHEST 1 Von [...] by: RODGER BLAKE Date: 2022-02-02 15:45 Normal [facility] ED NOTEon 01-02-2022 ED NOTE HNO ID: [id number] Author: Keyur Sebastian RN Service: ? Author Type: Registered Nurse Type: ED Notes Filed: 01/01/2022 10:02 PM Note Text: Pt called at 2140 with no answer. Normal [facility] Bacteria Ur Culton Bacteria identified Cx Nom (U) [id number] Abnormal [facility] Comment on above: Order Comment: Speci men Type: URINE SPECIMEN Ordering Facility: [facility] Address: [address] [place] [address] Result Comment: 10,0 00 -<50,000 CFU/ml Mixed microbiota Insignificant colony count. No further workup. Performed By: #### 6 30-4 #### [facility] CLIA [id number] [address] [place] [address] [place] CBC panel Auto (Bld)on 01-01 Erythrocyte distribution width (RBC) [Ratio] 13.7 % Normal 11.5-15.0 [facility] Comment on above: Order Comment: Speci men Type: BLOOD SPECIMENOrdering Facility: [facility] Address: [address] [place] [address] Performed By: #### 5 8410-2 ####[facility] LABORATORYCLIA [id number] [address] [place] Hematocrit (Bld) [Volume fraction] 40.2 % Normal 36.0-46.0 [facility] Comment on above: Order Comment: Speci men Type: BLOOD SPECIMENOrdering Facility: [facility] Address: [address] [place] [address] Performed By: #### 5 8410-2 ####[facility] LABORATORYCLIA [id number] [place] [address] [place] Hemoglobin (Bld) [Mass/Vol] 13.1 g/dL Normal 11.5-15.5 [facility] Comment on above: Order Comment: Speci men Type: BLOOD SPECIMENOrdering Facility: [facility] Address: [address] [place] [address] Performed By: #### 5 8410-2 ####[facility]ORATORYCLIA [id number] [place] [address] [place] MCH (RBC) [Entitic mass] 31.3 pg Normal 26.0-34.0 [facility] Comment on above: Order Comment: Speci men Type: BLOOD SPECIMENOrdering Facility: [facility] Address: [address] [place] [address] Performed By: #### 5 8410-2 ####[facility] LABORATORYCLIA [id number] [place] [address] [place] MCHC (RBC) [Mass/Vol] 32.6 g/dL Normal 30.5-36.0 [facility] Comment on above: Order Comment: Speci men Type: BLOOD SPECIMENOrdering Facility: [facility] Address: [address] [place] [address] Performed By: #### 5 8410-2 ####[facility] LABORATORYCLIA [id number] [address] [place] MCV (RBC) [Entitic vol] 96.2 fL Normal 80.0-100.0 [facility] Comment on above: Order Comment: Speci men Type: BLOOD SPECIMENOrdering Facility: [facility] Address: [address] [place] [address] Performed By: #### 5 8410-2 ####[facility] LABORATORYCLIA [id number] [place] [address] [place] Nucleated RBC (Bld) [#/Vol] 10*3/uL Normal <0.01 [facility] Comment on above: Order Comment: Speci men Type: BLOOD SPECIMENOrdering Facility: [facility] Address: [address] [place] [address] Performed By: #### 5 8410-2 ####[facility]ORATORYCLIA [id number] [place] [address] [place] Platelet mean volume (Bld) [Entitic vol] 10.5 fL Normal 9.0-12.7 [facility] Comment on above: Order Comment: Speci men Type: BLOOD SPECIMENOrdering Facility: [facility] Address: [address] [place] [address] Performed By: #### 5 8410-2 ####[facility]ORATORYCLIA [id number] [place] [address] [place] Platelets (Bld) [#/Vol] 258 10*3/uL Normal 150-400 [facility] Comment on above: Order Comment: Speci men Type: BLOOD SPECIMENOrdering Facility: [facility] Address: [address] [place] [address] Performed By: #### 5 8410-2 ####[facility]ORATORYCLIA [id number] [place] [address] [place] RBC (Bld) [#/Vol] 4.18 10*6/uL Normal 3.90-5.20 [facility] Comment on above: Order Comment: Speci men Type: BLOOD SPECIMENOrdering Facility: [facility] Address: [address] [place] [address] Performed By: #### 5 8410-2 ####[facility]ORATORYCLIA [id number] [place] [address] [place] WBC (Bld) [#/Vol] 9.91 10*3/uL Normal 3.70-11.00 [facility] Comment on above: Order Comment: Speci men Type: BLOOD SPECIMENOrdering Facility: [facility] Address: [address] [place] [address] Performed By: #### 5 8410-2 ####[facility]ORATORYCLIA [id number] [place] [address] [place] CK SerPl-cCncon 01-01-2022 CK [Catalytic activity/Vol] 70 U/L Normal 42-196 [facility] Comment on above: Order Comment: Speci men Type: BLOOD SPECIMEN Ordering Facility: [facility] Address: [address] [place] [address] Performed By: #### 3 040-3, 85203-0, 2156-10, 43-2 #### [facility] CLIA [id number] [address] [place] [address] [place] Comprehensive metabolic 2000 panelon 01-01-2022 Albumin [Mass/Vol] 4.6 g/dL Normal 3.9-4.9 [facility] Comment on above: Order Comment: Speci men Type: BLOOD SPECIMEN [facility]ing Facility: [facility] Address: [address] [place] [address] Performed By: #### 3 040-3, 41847-1, 2156-10, 43-2 #### [facility] CLIA [id number] [address] [place] [address] [place] ALP [Catalytic activity/Vol] 65 U/L Normal 34-123 [facility] Comment on above: Order Comment: Speci men Type: BLOOD SPECIMEN [facility]ing Facility: [facility] Address: [address] [place] [address] Performed By: #### 3 040-3, 46211-7, 2156-10, 43-2 #### [facility] CLIA [id number] [address] [place] [address] [place] ALT [Catalytic activity/Vol] 192 U/L High 7-38 [facility] Comment on above: Order Comment: Speci men Type: BLOOD SPECIMEN [facility]ing Facility: [facility] Address: [address] [place] [address] Performed By: #### 3 040-3, 05092-0, 2156-10, 43-2 #### [facility] CLIA [id number] [address] [place] [address] [place] Anion gap [Moles/Vol] 10 mmol/L Normal 9-18 [facility] Comment on above: Order Comment: Speci men Type: BLOOD SPECIMEN Ordering Facility: [facility] Address: [address] [place] [address] Performed By: #### 3 040-3, 03468-1, 7-6, 5643-2 #### [facility] CLIA [id number] [address] [place] [address] [place] AST [Catalytic activity/Vol] 75 U/L High 13-35 [facility] Comment on above: Order Comment: Speci men Type: BLOOD SPECIMEN Ordering Facility: [facility] Address: [address] [place] [address] Performed By: #### 3 040-3, 68965-9, 2156-6, 5643-2 #### [facility] CLIA [id number] [address] [place] [address] [place] Bilirubin [Mass/Vol] 0.2 mg/dL Normal 0.2-1.3 [facility] Comment on above: Order Comment: Speci men Type: BLOOD SPECIMEN Ordering Facility: [facility] Address: [address] [place] [address] Performed By: #### 3 040-3, 70051-3, 6, 5643-2 #### [facility] CLIA [id number] [address] [place] [address] [place] Calcium [Mass/Vol] 9.1 mg/dL Normal 8.5-10.2 [facility] Comment on above: Order Comment: Speci men Type: BLOOD SPECIMEN [facility]ing Facility: [facility] Address: [address] [place] [address] Performed By: #### 3 040-3, 57001-1, 2156, 5643-2 #### [facility] CLIA [id number] [address] [place] [address] [place] Chloride [Moles/Vol] 107 mmol/L High 97-105 [facility] Comment on above: Order Comment: Speci men Type: BLOOD SPECIMEN [facility]ing Facility: [facility] Address: [facility] [address] [id number] Performed By: #### 3 040-3, 90361-3, 2156-10, 43-2 #### [facility] CLIA [id number] [address] [place] [address] [place] CO2 [Moles/Vol] 23 mmol/L Normal 22-30 [facility] Comment on above: Order Comment: Speci men Type: BLOOD SPECIMEN Ordering Facility: [facility] Address: [address] [place], [place] [phone] Performed By: #### 3 040-3, 18684-3, 2156-10, 43-2 #### [facility] CLIA [id number] [address] [place] [address] [place] Creatinine [Mass/Vol] 0.85 mg/dL Normal 0.58-0.96 [facility] Comment on above: Order Comment: Speci men Type: BLOOD SPECIMEN Ordering Facility: [facility] Address: [address] [place], [place] [phone] Performed By: #### 3 040-3, 82608-6, 2156-10, 43-2 #### [facility] CLIA [id number] [address] [place] [address] [place] ESTIMATED GLOMERULAR FILTRATION RATE 95 mL/min/1.73m??? Normal >=60 [facility] Comment on above: Order Comment: Speci men Type: BLOOD SPECIMEN Ordering Facility: [facility] Address: [address] [place], [place] [id number] Result Comment: Albina mated Glomerular Filtration Rate [...] actual GFR. Performed By: #### 3 040-3, 79390-5, 2156-10, 43-2 #### [facility] CLIA [id number] [address] [place] [address] [place] Glucose [Mass/Vol] 99 mg/dL Normal 74-99 [facility] Comment on above: Order Comment: Arnol osman Type: BLOOD SPECIMEN Ordering Facility: [facility] Address: [address] [place] [address] Result Comment: The [place] [employer] (ADA) provides guidance for cutoff [...] Standards of Medical Care in Diabetes 2016, [place] [employer]. Diabetes Care. 2016.39(Suppl 1). Performed By: #### 3 040-3, 86190-1, 2156-10, 43-2 #### [facility] CLIA [id number] [address] [place] [address] [place] Potassium [Moles/Vol] 4.4 mmol/L Normal 3.7-5.1 [facility] Comment on above: Order Comment: Arnol osman Type: BLOOD SPECIMEN Ordering Facility: [facility] Address: [address] Performed By: #### 3 040-3, 28562-5, 6, 5643-2 #### [facility] CLIA [id number] [address] [place] [address] [place] Protein [Mass/Vol] 6.9 g/dL Normal 6.3-8.0 [facility] Comment on above: Order Comment: Arnol osman Type: BLOOD SPECIMEN Ordering Facility: [facility] Address: [address] [address] Performed By: #### 3 040-3, 46231-1, 2157-6, 5643-2 #### [facility] CLIA [id number] [address] [id number] [place] Sodium [Moles/Vol] 140 mmol/L Normal 136-144 [facility] Comment on above: Order Comment: Speci men Type: BLOOD SPECIMEN Ordering Facility: [facility] Address: [address] [place], [place] [address] [address] Performed By: #### 3 040-3, 91892-1, 2157-6, 5643-2 #### [facility] CLIA [id number] [address] [place] [address] [place] Urea nitrogen [Mass/Vol] 18 mg/dL Normal 7-21 [facility] Comment on above: Order Comment: Speci men Type: BLOOD SPECIMEN [facility]ing Facility: [facility] Address: [address] [place] [address] Performed By: #### 3 040-3, 43802-4, 2157-6, 5643-2 #### [facility] [place] [id number] [address] [place] [address] [place] ECG COMPLETEon 01-01-2022 ECG COMPLETE Ventricular Rate : 8 4 BPM Atrial Rate : 84 BPM P-R Interval : 120 ms QRS Duration : 78 ms Q-T Interval : 356 ms QTC Calculation(Bazett) : 420 ms Calculated P [place] : 36 degrees Calculated R [place] : 18 degrees Calculated T [place] : 26 degrees NORMAL SINUS RHYTHM CANNOT RULE OUT ANTERIOR INFARCT , AGE UNDETERMINED ABNORMAL ECG NO PREVIOUS ECGS AVAILABLE Confirmed by DO VELASQUEZ JASON ([id number]), web editor CINDY PULIDO ([id number]) on 01/04/2022 8:03:34 AM NAME : ROSHAN WILLINGHAM PID : [id number] : 1990 Gender : Female Race : ORD : [id number] Procedure Date : Jan 01 2022 15:15:40 Edit Date : Jan 04 2022 08:03:40 Diagnosis: NORMAL SINUS RHYTHM CANNOT RULE OUT ANTERIOR INFARCT , AGE UNDETERMINED ABNORMAL ECG NO PREVIOUS ECGS AVAILABLE Confirmed by DO VELASQUEZ JASON ([id number]), web editor CINDY PULIDO ([id number]) on 01/04/2022 8:03:34 AM Test Reason : Chest Pain Location : 26 : ER L OF Overread By : DO VELASQUEZ JASON Edited By : CINDY PULIDO Referred By : , Acquired by : , [facility] ED NOTEon 01-01-2022 ED NOTE HNO ID: [id number] Author: Cassidy Solis RN Service: ? Author Type: Registered Nurse Type: ED Notes Filed: 01/01/2022 9:39 PM Note Text: Bed: ED-01 Expected date: Expected time: Means of arrival: Comments: Triage ready [facility] ED NOTE HNO ID: [id number] Author: Keyur Sebastian RN Service: ? Author [...] Michael aware, labs and orders are in. [facility] Ethanol SerPl-mCncon 022 Ethanol [Mass/Vol] mg/dL Normal <11 [facility] Comment on above: Order Comment: Arnol osman Type: BLOOD SPECIMEN Ordering Facility: [facility] Address: [address] [phone] Performed By: #### 3 040-3, 42809-3, 2157-6, 5643-2 #### [facility] CLIA [id number] [address] [place] [address] [place] Lipase SerPl-cCncon 01-02-20 22 Lipase [Catalytic activity/Vol] 28 U/L Normal 16-61 [facility] Comment on above: Order Comment: Arnol osman Type: BLOOD SPECIMENOrdering Facility: [facility] Address: [facility] [phone] Performed By: #### 3 040-3, 80462-0, 2157-6, 5643-2 ####[facility]ORATORYCLIA [id number] [place] [address] [place] Magnesium SerPl-mCncon 01-01 Magnesium [Mass/Vol] 2.1 mg/dL Normal 1.7-2.3 [facility] Comment on above: Order Comment: Speci men Type: BLOOD SPECIMENOrdering Facility: [facility] Address: [address] [place] [address] Performed By: #### 2 777-1, 29233-7 ####[facility]ORATORYCLIA [id number] [place] [address] [place] Phosphate SerPl-mCncon 01-01 Phosphate [Mass/Vol] 4.7 mg/dL Normal 2.7-4.8 [facility] Comment on above: Order Comment: Speci men Type: BLOOD SPECIMENOrdering Facility: [facility] Address: [address] [place] [address] Performed By: #### 2 777-1, 02105-1 ####[facility]ORATORYCLIA [id number] [place] [address] [place] SARS-CoV-2 RNA Resp Ql HEENA+p robeon 01-01-2022 SARS-CoV-2 (COVID-19) RNA HEENA+probe Ql (Resp) SARS-CoV-2 (Agent of COVID-19) Not Detected by RT-PCR or equivalent method. Normal Not Detected [facility] Comment on above: Order Comment: Speci men Type: SWAB OF INTERNAL NOSE [facility]ing Facility: [facility] Address: [address] [place] [address] Result Comment: This test has been authorized by FDA under an Emergency Use Authorization (EUA). Performed By: #### 9 4500-6 #### [facility] CLIA [id number] [address] [place] [address] [place] Urinalysis complete panel (U )on 01-01-2022 Bilirubin Ql (U) Negative Normal Negative [facility] Comment on above: Order Comment: Speci men Type: URINE SPECIMEN [facility]ing Facility: [facility] Address: [address] [place] [address] Performed By: #### 2 4356-8 #### [facility] CLIA [id number] [address] [place] [address] [place] Clarity (Unsp spec) Clear Normal Clear [facility] Comment on above: Order Comment: Speci men Type: URINE SPECIMEN [facility]ing Facility: [facility] Address: [address] [place] [address] Performed By: #### 2 4356-8 #### [facility] CLIA [id number] [address] [place] [address] [place] Color (U) Light Yellow Normal Yellow [facility] Comment on above: Order Comment: Speci men Type: URINE SPECIMEN [facility]ing [facility]: [facility] Address: [address] [place] [address] Performed By: #### 2 4356-8 #### [facility] CLIA [id number] [address] [place] [address] [place] Epithelial cells LM.HPF (Urine sed) [#/Area] Moderate Normal [facility] Comment on above: Order Comment: Speci men Type: URINE SPECIMEN [facility]ing Facility: [facility] Address: [address] [place] [address] Performed By: #### 2 4356-8 #### [facility] CLIA [id number] [address] [place] [address] [place] Glucose Test strip (U) [Mass/Vol] Negative Normal Negative [facility] Comment on above: Order Comment: Speci men Type: URINE SPECIMEN [facility]ing Facility: [facility] Address: [address] [place] [address] Performed By: #### 2 4356-8 #### [facility] CLIA [id number] [address] [place] [address] [place] Hemoglobin Ql (U) Negative Normal Negative [facility] Comment on above: Order Comment: Speci men Type: URINE SPECIMEN [facility] Address: [address] [place] [address] Performed By: #### 2 4356-8 #### [facility] CLIA [id number] [address] [place] [address] [place] Ketones Ql (U) Negative Normal Negative [facility] Comment on above: Order Comment: Speci men Type: URINE SPECIMEN [facility]ing [facility]: [facility] Address: [address] [place] [address] Performed By: #### 2 4356-8 #### [facility] CLIA [id number] [address] [place] [address] [place] Leukocyte esterase Test strip Ql (U) Negative Normal Negative [facility] Comment on above: Order Comment: Speci men Type: URINE SPECIMEN [facility]ing [facility] Address: [address] [place] [address] Performed By: #### 2 4356-8 #### [facility] CLIA [id number] [address] [place] [address] [place] Nitrite Ql (U) Negative Normal Negative [facility] Comment on above: Order Comment: Speci men Type: URINE SPECIMEN [facility]ing [facility]: [facility] Address: [address] [place] [address] Performed By: #### 2 4356-8 #### [facility] CLIA [id number] [address] [place] [address] [place] pH (U) 6.5 [pH] Normal 5.0-8.0 [facility] Comment on above: Order Comment: Speci men Type: URINE SPECIMEN [facility]ing Facility: [facility] Address: [address] [place] [address] Performed By: #### 2 4356-8 #### [facility] CLIA [id number] [address] [place] [address] [place] Protein (U) [Mass/Vol] Trace Abnormal Negative [facility] Comment on above: Order Comment: Speci men Type: URINE SPECIMEN [facility]ing [facility]: [facility] Address: [address] [place] [address] Performed By: #### 2 4356-8 #### [facility] CLIA [id number] [address] [place] [address] [place] RBC LM.HPF (Urine sed) [#/Area] 3-5 /HPF Abnormal 0-3 /HPF [facility] Comment on above: Order Comment: Speci men Type: URINE SPECIMEN [facility]ing Facility[facility] Address: [address] [place] [address] Performed By: #### 2 4356-8 #### [facility] CLIA [id number] [address] [place] [address] [place] Specific gravity (U) [Rel density] 1.033 High 1.005-1.030 [facility] Comment on above: Order Comment: Speci men Type: URINE SPECIMEN [facility]ing Facility: [facility] Address: [address] [place] [address] Performed By: #### 2 4356-8 #### [facility] CLIA [id number] [address] [place] [address] [place] Urobilinogen Ql (U) Negative Normal Negative [facility] Comment on above: Order Comment: Speci men Type: URINE SPECIMEN [facility]ing [facility]: [facility] Address: [address] [place] [address] Performed By: #### 2 4356-8 #### [facility] CLIA [id number] [address] [place] [address] [place] WBC LM.HPF (Urine sed) [#/Area] 0-5 /HPF Normal 0-5 /HPF [facility] Comment on above: Order Comment: Speci men Type: URINE SPECIMEN [facility]ing Facility: [facility] Address: [address] [place] [address] Performed By: #### 2 4356-8 #### [facility] CLIA [id number] [address] [place] [address] [place] Urine culture routineOrdered By: Phillip Davis on 12-18-2021 Bacteria identified Cx Nom (U) 2 Days [facility] Automated erythrocytes count in urine sediment (number/area)Ordered By: Phillip Davis on 12-16-2021 RBC Auto (Urine sed) [#/Area] 0-1 [HPF] 0-4 [facility] Automated leukocytes count i n urine sediment (number/area)Ordered By: Phillip Davis on 12-16-2021 WBC Auto (Urine sed) [#/Area] 10-19 [HPF] 0-4 [facility] Bilirubin Test strip Ql (U)O rdered By: Phillip Davis on 12-16-2021 Bilirubin Ql (U) Negative Negative [facility] Color Auto (U)Ordered By: Ab mendoza Davis on 12-16-2021 Color (U) Yellow Yellow [facility] Ketones Auto test strip (U) [Mass/Vol]Ordered By: Phillip Davis on 12-16-2021 Ketones (U) [Mass/Vol] Trace Negative [facility] - UrinalysisOrder ed By: Phillip Davis on 12-16-2021 Hyaline casts LM Ql (Urine sed) 0-1 [LPF] 0-8 [facility] Nitrite Test strip Ql (U)Ord ered By: Phillip Davis on 12-16-2021 Nitrite Ql (U) Negative Negative [facility] Protein Auto test strip (U) [Mass/Vol]Ordered By: Phillip Davis on 12-16-2021 Protein (U) [Mass/Vol] Negative Negative [facility] Specific gravity Auto test s trip (U) [Rel density]Ordered By: Phillip Davis on 12-16-2021 Specific gravity (U) [Rel density] 1.008 1.001-1.030 [facility] Squamous epithelial cells de tection in urine sediment by light microscopyOrdered By: Phillip Davis on 12-16-2021 Epithelial cells.squamous LM Ql (Urine sed) 10-19 [HPF] 0-2 [facility] Urine bacteria detection by automated methodOrdered By: Phillip Davis on 12-16-2021 Bacteria Auto Ql (U) 2+ None Seen [facility] Urine clarity by refractomet ry automatedOrdered By: Phillip Davis on 12-16-2021 Clarity Refractometry automated (U) Clear Clear [facility] Urine glucose measurement by automated test strip (mass/volume)Ordered By: Phillip Davis on 12-16-2021 Glucose Auto test strip (U) [Mass/Vol] Normal mg/dL Normal [facility] Urine hemoglobin detection b y automated test stripOrdered By: Phillip Davis on 12-16-2021 Hemoglobin Auto test strip Ql (U) Negative Negative [facility] Urine leukocyte esterase det ection by automated test stripOrdered By: Phillip Davis on 12-16-2021 Leukocyte esterase Auto test strip Ql (U) 3+ Negative [facility] Urobilinogen Auto test strip (U) [Mass/Vol]Ordered By: Phillip Davis on 12-16-2021 Urobilinogen (U) [Mass/Vol] Normal mg/dL Normal [facility] pH Auto test strip (U)Ordere d By: Phillip Davis on 12-16-2021 pH (U) 6.5 [pH] 5.0-9.0 [facility] Albumin [Mass/volume] in Ser um or PlasmaOrdered By: Francheska Kelly on 12-15-2021 Albumin [Mass/Vol] 3.9 g/dL 3.2-5.5 [facility] Basophils Auto (Bld) [#/Vol] Ordered By: Francheska Kelly on 12-15-2021 Basophils (Bld) [#/Vol] 0.1 10*3/uL 0.0-0.2 [facility] Basophils/100 WBC Auto (Bld) Ordered By: Francheska Kelly on 12-15-2021 Basophils/100 WBC (Bld) 1.1 % . [facility] Blood hemoglobin measurement (mass/volume)Ordered By: Francheska Kelly on 12-15-2021 Hemoglobin (Bld) [Mass/Vol] 14.9 g/dL 11.8-15.4 [facility] Blood leukocytes automated c ount (number/volume)Ordered By: Francheska Kelly on 12-15-2021 WBC (Bld) [#/Vol] 7.7 10*3/uL 4.5-11.0 [facility] Creatinine and Glomerular fi ltration rate.predicted panel (S/P/Bld)Ordered By: Francheska Kelly on 12-15-2021 Creatinine [Mass/Vol] 0.99 mg/dL 0.44-1.03 [facility] Eosinophils Auto (Bld) [#/Vo l]Ordered By: Francheska Kelly on 12-15-2021 Eosinophils (Bld) [#/Vol] 0.8 10*3/uL 0.0-0.45 [facility] Eosinophils/100 WBC Auto (Bl d)Ordered By: Francheska Kelly on 12-15-2021 Eosinophils/100 WBC (Bld) 10.8 % . [facility] Erythrocyte distribution wid th Auto (RBC) [Ratio]Ordered By: Francheska Kelly on 12-15-2021 Erythrocyte distribution width (RBC) [Ratio] 12.6 % 11.9-15.3 [facility] Estimated glomerular filtrat ion rate (GFR) non- AmericanOrdered By: Francheska Kelly on 12-15-2021 GFR/1.73 sq M.predicted among non-blacks MDRD (S/P/Bld) [Vol rate/Area] > 60 mL/Min [facility] Globulin Calc (S) [Mass/Vol] Ordered By: Francheska Kelly on 12-15-2021 Globulin (S) [Mass/Vol] 2.7 g/dL [facility] Hematocrit Auto (Bld) [Volum e fraction]Ordered By: Francheska Kelly on 12-15-2021 Hematocrit (Bld) [Volume fraction] 43.1 % 34.0-46.4 [facility] Laboratory - Chemistry and C hemistry - challengeOrdered By: Francheska Kelly on 12-15-2021 Magnesium [Mass/Vol] 1.9 mg/dL 1.6-2.6 [facility] Laboratory - Hematology and Cell countsOrdered By: Francheska Kelly on 12-15-2021 Nucleated RBC/100 WBC (Bld) [Ratio] 0.0 % 0-0.5 [facility] Lymphocytes Auto (Bld) [#/Vo l]Ordered By: Francheska Kelly on 12-15-2021 Lymphocytes (Bld) [#/Vol] 2.4 10*3/uL 1.00-4.8 [facility] Lymphocytes/100 WBC Auto (Bl d)Ordered By: Francheska Kelly on 12-15-2021 Lymphocytes/100 WBC (Bld) 31.5 % . [facility] MCH Auto (RBC) [Entitic mass ]Ordered By: Francheska Kelly on 12-15-2021 MCH (RBC) [Entitic mass] 31.9 pg 24.7-34.3 [facility] MCHC Auto (RBC) [Mass/Vol]Or dered By: Francheska Kelly on 12-15-2021 MCHC (RBC) [Mass/Vol] 34.6 g/dL 32.0-35.0 [facility] MCV Auto (RBC) [Entitic vol] Ordered By: Francheska Kelly on 12-15-2021 MCV (RBC) [Entitic vol] 92.1 fL 80-100 [facility] Monocytes Auto (Bld) [#/Vol] Ordered By: Francheska Kelly on 12-15-2021 Monocytes (Bld) [#/Vol] 0.6 10*3/uL 0.0-0.8 [facility] Monocytes/100 WBC Auto (Bld) Ordered By: Francheska Kelly on 12-15-2021 Monocytes/100 WBC (Bld) 8.3 % . [facility] Neutrophils Auto (Bld) [#/Vo l]Ordered By: Francheska Kelly on 12-15-2021 Neutrophils (Bld) [#/Vol] 3.7 10*3/uL 1.8-7.7 [facility] Neutrophils/100 WBC Auto (Bl d)Ordered By: Francheska Kelly on 12-15-2021 Neutrophils/100 WBC (Bld) 48.3 % . [facility] No Panel InformationOrdered By: Francheska Kelly on 12-15-2021 Estimated GFR () > 60 mL/Min [facility] Comment on above: GFR estimated refere nce range: According to KDOQI guidelines, <60 ml/min/1.73m2 is sufficient to diagnose a patient with chronic kidney disease. Pharmacy Creatinine Clearance (Chem 66.32 [facility] Platelet mean volume Auto (B ld) [Entitic vol]Ordered By: Francheska Kelly on 12-15-2021 Platelet mean volume (Bld) [Entitic vol] 9.6 fL 6.3-10.7 [facility] Platelets Auto (Bld) [#/Vol] Ordered By: Francheska Kelly on 12-15-2021 Platelets (Bld) [#/Vol] 256 10*3/uL 150-450 [facility] Protein [Mass/volume] in Ser um or PlasmaOrdered By: Francheska Kelly on 12-15-2021 Protein [Mass/Vol] 6.6 g/dL 6.1-7.9 [facility] RBC Auto (Bld) [#/Vol]Ordere d By: Francheska Kelly on 12-15-2021 RBC (Bld) [#/Vol] 4.68 10*6/uL 3.60-5.00 [facility] Serum or plasma alanine nielsen otransferase measurement without P-5'-P (enzymatic activiOrdered By: Francheska Kelly on 12-15-2021 ALT No additional P-5'-P [Catalytic activity/Vol] 19 U/L 10-60 [facility] Serum or plasma albumin/glob ulin mass ratioOrdered By: Francheska Kelly on 12-15-2021 Albumin/Globulin [Mass ratio] 1.4 {ratio} [facility] Serum or plasma alkaline alvina sphatase measurement (enzymatic activity/volume)Ordered By: Francheska Kelyl on 12-15-2021 ALP [Catalytic activity/Vol] 35 U/L 32-92 [facility] Serum or plasma aspartate am inotransferase measurement (enzymatic activity/volume)Ordered By: Francheska Kelly on 12-15-2021 AST [Catalytic activity/Vol] 18 U/L 10-42 [facility] Serum or plasma calcium cassandra urement (mass/volume)Ordered By: Francheska Kelly on 12-15-2021 Calcium [Mass/Vol] 9.2 mg/dL 8.2-10.2 [facility] Serum or plasma chloride darian surement (moles/volume)Ordered By: Francheska Kelly on 12-15-2021 Chloride [Moles/Vol] 99 mmol/L 95-114 [facility] Serum or plasma glucose cassandra urement (mass/volume)Ordered By: Francheska Kelly on 12-15-2021 Glucose [Mass/Vol] 71 mg/dL 70-100 [facility] Comment on above: ADA recommended refe rence range Random Glucose Reference Range is dependent on time and content of last meal. Glucose of more than 200 mg/dL in a nonstressed, ambulatory subject supports the diagnosis of Diabetes Mellitus. Serum or plasma potassium me asurement (moles/volume)Ordered By: Francheska Kelly on 12-15-2021 Potassium [Moles/Vol] 3.1 mmol/L 3.5-5.1 [facility] Serum or plasma sodium measu rement (moles/volume)Ordered By: Francheska Kelly on 12-15-2021 Sodium [Moles/Vol] 136 mmol/L 136-146 [facility] Serum or plasma total biliru bin measurement (mass/volume)Ordered By: Francheska Kelly on 12-15-2021 Bilirubin [Mass/Vol] 1.6 mg/dL 0.3-1.2 [facility] Comment on above: Samples from patient s who have taken Naproxen have shown spurious elevation in Total Bilirubin levels. A metabolite of Naproxen, O-desmethylnaproxen, has been shown to interfere with the William method for measuring Total Bilirubin. Serum or plasma total carbon dioxide measurement (moles/volume)Ordered By: Francheska Kelly on 12-15-2021 CO2 [Moles/Vol] 26.8 mmol/L 22.0-30.0 [facility] Serum or plasma urea nitroge n measurement (mass/volume)Ordered By: Francheska Kelly on 12-15-2021 Urea nitrogen [Mass/Vol] 12 mg/dL 9- [facility] Casts typing in urine sedime nt by light microscopyOrdered By: Phillip Davis on 12-14-2021 Casts LM Nom (Urine sed) None seen [LPF] None Seen [facility] Glucose Glucometer (BldC) [M ass/Vol]Ordered By: Brent Simmons on 12-13-2021 Glucose [Mass/Vol] 72 mg/dL [facility] Comment on above: Random Glucose Refer ence Range is dependent on time and content of last meal. Glucose of more than 200 mg/dL in a nonstressed, ambulatory subject supports the diagnosis of Diabetes Mellitus. No Panel InformationOrdered By: Brent Simmons on 12-13-2021 Bedside Glucose Comment Glu2: cleaned meter [facility] Franquez [Moles/volume] in Se rum or PlasmaOrdered By: Phillip Davis on 12-11-2021 Franquez [Moles/Vol] 0.65 mmol/L 0.60-1.20 [facility] Laboratory - Chemistry and C hemistry - challengeOrdered By: Francheska Kelly on 12-10-2021 Cobalamin (Vitamin B12) [Mass/Vol] 733 pg/mL 180-914 [facility] Prolactin [Mass/volume] in S yoav or PlasmaOrdered By: Phillip Davis on 12-10-2021 Prolactin [Mass/Vol] 3.48 ng/mL 3.34-26.72 [facility] Serum or plasma prealbumin m easurement (mass/volume)Ordered By: Francheska Kelly on 12-10-2021 Prealbumin [Mass/Vol] 24.0 mg/dL 18.0-38.0 [facility] Cholesterol [Mass/volume] in Serum or PlasmaOrdered By: Brent Simmons on 12-07-2021 Cholesterol [Mass/Vol] 173 mg/dL 140-200 [facility] Comment on above: Chol less than 200 m g/dl low risk Chol 201-239 mg/dl borderline risk Chol 240 mg/dl and greater high risk Cholesterol in LDL Calc [Mas s/Vol]Ordered By: Brent Simmons on 12-07-2021 Cholesterol in LDL [Mass/Vol] 109 mg/dL 0-100 [facility] Comment on above: LDL ATP III CLASSIFI CATION LDL less than 100 mg/dL Optimal LDL 100-129 mg/dL Near or above optimal LDL 130-159 mg/dL Borderline high LDL 160-189 mg/dL High LDL greater than 189 mg/dL Very high Cholesterol in VLDL Calc [Ma ss/Vol]Ordered By: Brent Simmons on 12-07-2021 Cholesterol in VLDL [Mass/Vol] 12 mg/dL [facility] No Panel InformationOrdered By: Brent Simmons on 12-07-2021 25-Hydroxy Vitamin D Total 20.3 ng/mL 30-100 [facility] Comment on above: VITAMIN D STATUS 25( [place])VITAMIN D RANGE (ng/mL) Deficient <20 Insufficient 20 to <30 Sufficient 30 to 100 Reference: Janett MF,Dino NC, Joe HAIDER, et al. Evaluation,treatment, and prevention of vitamin D deficiency; an Endocrine Society clinical practice guideline. JCEM. 2010; 96(7):1911-30. Serum or plasma high density lipoprotein (HDL) cholesterol measurementOrdered By: Brent Simmons on 12-07-2021 Cholesterol in HDL [Mass/Vol] 51 mg/dL 35-85 [facility] Comment on above: HDL CHOL ATP-III CLA SSIFICATION Cardiovascular Risk HDL > or equal to 60 mg/dL LOW HDL < 40 mg/dL HIGH Serum or plasma total choles terol/high density lipoprotein (HDL) cholesterol mass ratOrdered By: Brent Simmons on 12-07-2021 Cholesterol.total/Chol esterol in HDL [Mass ratio] 3.4 {ratio} <5.0 [facility] TSH DL <= 0.005 mIU/L QnOrde red By: Brent Simmons on 12-07-2021 TSH Qn 0.98 m[IU]/L 0.45-5.33 [facility] Triglyceride [Mass/volume] i n Serum or PlasmaOrdered By: Brent Simmons on 12-07-2021 Triglyceride [Mass/Vol] 63 mg/dL 35-149 [facility] Comment on above: TRIG ATP III CLASSIF ICATION TRIG less than 150 mg/dL Normal TRIG 150-199 mg/dL Borderline high TRIG 200-500 mg/dL High TRIG greater than 500 mg/dL Very high Standard traceable to the Center for Disease Conrtrol and Prevention (CDC) test method. Amphetamine Screen Ql (U)Ord ered By: Madhu Morales on 12-06-2021 Amphetamines Ql (U) Negative Negative [facility] Barbiturates [Presence] in U rineOrdered By: Madhu Morales on 12-06-2021 Barbiturates Ql (U) Negative Negative [facility] Benzodiazepines [Presence] i n UrineOrdered By: Madhu Morales on 12-06-2021 Benzodiazepines Ql (U) Negative Negative [facility] COVID-19 SOFIAOrdered By: Karlos Morales on 12-06-2021 SARS-CoV+SARS-CoV-2 (COVID-19) Ag IA.rapid Ql (Resp) Negative Negative [facility] Comment on above: This is a duplicate Annie SARS Antigen (PAYAL) result to be used for statistical tracking purpose only. Cannabinoids [Presence] in U rine by Screen methodOrdered By: Madhu Morales on 12-06-2021 Cannabinoids Screen Ql (U) Positive Negative [facility] Comment on above: These are unconfirme d results and should not be used for legal purposes. Drug Cut-Off Concentration: AMPH 1000 ng/mL YISEL 200 ng/mL LUCA 200 ng/mL COCM 300 ng/mL OP 300 ng/mL PCP 25 ng/mL THC 20 ng/mL HCG ( test) IA.rapi d Ql (U)Ordered By: Madhu Morales on 12-06-2021 HCG ( test) Ql (U) Negative [facility] Laboratory - Drug toxicology Ordered By: Madhu Morales on 12-06-2021 Opiates Ql (U) Negative Negative [facility] No Panel InformationOrdered By: Madhu Morales on 12-06-2021 SARS Antigen (LFIA) [facility] Phencyclidine Screen Ql (U)O rdered By: Madhu Morales on 12-06-2021 Phencyclidine Ql (U) Negative Negative [facility] Serum or plasma ethanol cassandra urement (mass/volume)Ordered By: Madhu Morales on 12-06-2021 Ethanol [Mass/Vol] mg/dL [facility] Ethanol [Mass/Vol] TNP [facility] Comment on above: Test not performed Urine cocaine detectionOrder ed By: Madhu Morales on 12-06-2021 Cocaine Ql (U) Negative Negative [facility] Yeast detection in urine sed iment by light microscopyOrdered By: Madhu Morales on 12-06-2021 Yeast LM Ql (Urine sed) None seen [HPF] None Seen [facility] Basophils Auto (Bld) [#/Vol] Ordered By: Sivakumar Sheridan on 11-27-2021 Basophils (Bld) [#/Vol] 0.1 10*3/uL 0.0-0.2 [facility] Basophils/100 WBC Auto (Bld) Ordered By: Sivakumar Sheridan on 11-27-2021 Basophils/100 WBC (Bld) 1.2 % . [facility] Blood hemoglobin measurement (mass/volume)Ordered By: Sivakumar Sheridan on 11-27-2021 Hemoglobin (Bld) [Mass/Vol] 14.3 g/dL 11.8-15.4 [facility] Blood leukocytes automated c ount (number/volume)Ordered By: Sivakumar Sheridan on 11-27-2021 WBC (Bld) [#/Vol] 7.6 10*3/uL 4.5-11.0 [facility] Body fluid albumin measureme nt (mass/volume)Ordered By: Sivakumar Sheridan on 11-27-2021 Albumin (Body fld) [Mass/Vol] 4.1 g/dL 3.2-5.5 [facility] Creatinine and Glomerular fi ltration rate.predicted panel (S/P/Bld)Ordered By: Sivakumar Sheridan on 11-27-2021 Creatinine [Mass/Vol] 1.06 mg/dL 0.44-1.03 [facility] Eosinophils Auto (Bld) [#/Vo l]Ordered By: Sivakumar Sheridan on 11-27-2021 Eosinophils (Bld) [#/Vol] 0.5 10*3/uL 0.0-0.45 [facility] Eosinophils/100 WBC Auto (Bl d)Ordered By: Sivakumar Sheridan on 11-27-2021 Eosinophils/100 WBC (Bld) 7.0 % . [facility] Erythrocyte distribution wid th Auto (RBC) [Ratio]Ordered By: Sivakumar Sheridan on 11-27-2021 Erythrocyte distribution width (RBC) [Ratio] 12.8 % 11.9-15.3 [facility] Estimated glomerular filtrat ion rate (GFR) non- AmericanOrdered By: Sivakumar Sheridan on 11-27-2021 GFR/1.73 sq M.predicted among non-blacks MDRD (S/P/Bld) [Vol rate/Area] > 60 mL/Min [facility] Globulin Calc (S) [Mass/Vol] Ordered By: Sivakumar Sheridan on 11-27-2021 Globulin (S) [Mass/Vol] 2.3 g/dL [facility] Hematocrit Auto (Bld) [Volum e fraction]Ordered By: Sivakumar Sheridan on 11-27-2021 Hematocrit (Bld) [Volume fraction] 42.1 % 34.0-46.4 [facility] Laboratory - Hematology and Cell countsOrdered By: Sivakumar Sheridan on 11-27-2021 Nucleated RBC/100 WBC (Bld) [Ratio] 0.1 % 0-0.5 [facility] Lymphocytes Auto (Bld) [#/Vo l]Ordered By: Sivakumar Sheridan on 11-27-2021 Lymphocytes (Bld) [#/Vol] 2.2 10*3/uL 1.00-4.8 [facility] Lymphocytes/100 WBC Auto (Bl d)Ordered By: Sivakumar Sheridan on 11-27-2021 Lymphocytes/100 WBC (Bld) 29.1 % . [facility] MCH Auto (RBC) [Entitic mass ]Ordered By: Sivakumar Sheridan on 11-27-2021 MCH (RBC) [Entitic mass] 31.7 pg 24.7-34.3 [facility] MCHC Auto (RBC) [Mass/Vol]Or dered By: Sivakumar Sheridan on 11-27-2021 MCHC (RBC) [Mass/Vol] 34.0 g/dL 32.0-35.0 [facility] MCV Auto (RBC) [Entitic vol] Ordered By: Sivakumar Sheridan on 11-27-2021 MCV (RBC) [Entitic vol] 93.4 fL 80-100 [facility] Monocytes Auto (Bld) [#/Vol] Ordered By: Sivakumar Sheridan on 11-27-2021 Monocytes (Bld) [#/Vol] 0.4 10*3/uL 0.0-0.8 [facility] Monocytes/100 WBC Auto (Bld) Ordered By: Sivakumar Sheridan on 11-27-2021 Monocytes/100 WBC (Bld) 5.7 % . [facility] Neutrophils Auto (Bld) [#/Vo l]Ordered By: Sivakumar Sheridan on 11-27-2021 Neutrophils (Bld) [#/Vol] 4.3 10*3/uL 1.8-7.7 [facility] Neutrophils/100 WBC Auto (Bl d)Ordered By: Sivakumar Sheridan on 11-27-2021 Neutrophils/100 WBC (Bld) 57.0 % . [facility] No Panel InformationOrdered By: Sivakumar Sheridan on 11-27-2021 Estimated GFR () > 60 mL/Min [facility] Comment on above: GFR estimated refere nce range: According to KDOQI guidelines, <60 ml/min/1.73m2 is sufficient to diagnose a patient with chronic kidney disease. Pharmacy Creatinine Clearance (Chem N/A [facility] Platelet mean volume Auto (B ld) [Entitic vol]Ordered By: Sivakumar Sheridan on 11-27-2021 Platelet mean volume (Bld) [Entitic vol] 10.2 fL 6.3-10.7 [facility] Platelets Auto (Bld) [#/Vol] Ordered By: Sivakumar Sheridan on 11-27-2021 Platelets (Bld) [#/Vol] 210 10*3/uL 150-450 [facility] Protein [Mass/volume] in Ser um or PlasmaOrdered By: Sivakumar Sheridan on 11-27-2021 Protein [Mass/Vol] 6.4 g/dL 6.1-7.9 [facility] RBC Auto (Bld) [#/Vol]Ordere d By: Sivakumar Sheridan on 11-27-2021 RBC (Bld) [#/Vol] 4.51 10*6/uL 3.60-5.00 [facility] Serum or plasma alanine nielsen otransferase measurement without P-5'-P (enzymatic activiOrdered By: Sivakumar Sheridan on 11-27-2021 ALT No additional P-5'-P [Catalytic activity/Vol] 15 U/L 10-60 [facility] Serum or plasma albumin/glob ulin mass ratioOrdered By: Sivakumar Sheridan on 11-27-2021 Albumin/Globulin [Mass ratio] 1.8 {ratio} [facility] Serum or plasma alkaline alvina sphatase measurement (enzymatic activity/volume)Ordered By: Sivakumar Sheridan on 11-27-2021 ALP [Catalytic activity/Vol] 36 U/L 32-92 [facility] Serum or plasma aspartate am inotransferase measurement (enzymatic activity/volume)Ordered By: Sivakumar Sheridan on 11-27-2021 AST [Catalytic activity/Vol] 15 U/L 10-42 [facility] Serum or plasma calcium cassandra urement (mass/volume)Ordered By: Sivakumar Sheridan on 11-27-2021 Calcium [Mass/Vol] 9.4 mg/dL 8.2-10.2 [facility] Serum or plasma chloride darian surement (moles/volume)Ordered By: Sivakumar Sheridan on 11-27-2021 Chloride [Moles/Vol] 105 mmol/L 95-114 [facility] Serum or plasma glucose cassandra urement (mass/volume)Ordered By: Sivakumar Sheridan on 11-27-2021 Glucose [Mass/Vol] 79 mg/dL 70-100 [facility] Comment on above: ADA recommended refe rence range Random Glucose Reference Range is dependent on time and content of last meal. Glucose of more than 200 mg/dL in a nonstressed, ambulatory subject supports the diagnosis of Diabetes Mellitus. Serum or plasma potassium me asurement (moles/volume)Ordered By: Sivakumar Sheridan on 11-27-2021 Potassium [Moles/Vol] 4.3 mmol/L 3.5-5.1 [facility] Serum or plasma sodium measu rement (moles/volume)Ordered By: Sivakumar Sheridan on 11-27-2021 Sodium [Moles/Vol] 138 mmol/L 136-146 [facility] Serum or plasma total biliru bin measurement (mass/volume)Ordered By: Sivakumar Sheridan on 11-27-2021 Bilirubin [Mass/Vol] 0.2 mg/dL 0.3-1.2 [facility] Serum or plasma total carbon dioxide measurement (moles/volume)Ordered By: Sivakumar Sheridan on 11-27-2021 CO2 [Moles/Vol] 24.1 mmol/L 22.0-30.0 [facility] Serum or plasma urea nitroge n measurement (mass/volume)Ordered By: Sivakumar Sheridan on 11-27-2021 Urea nitrogen [Mass/Vol] 9 mg/dL 9- [facility] Albumin [Mass/volume] in Ser um or PlasmaOrdered By: Kary Lux on 11-18-2021 Albumin [Mass/Vol] 4.3 g/dL 3.2-5.5 [facility] Amphetamine Screen Ql (U)Ord ered By: Kary Lux on 11-18-2021 Amphetamines Ql (U) Negative Negative [facility] Automated erythrocytes count in urine sediment (number/area)Ordered By: Kary Lux on 11-18-2021 RBC Auto (Urine sed) [#/Area] 0-1 [HPF] 0-4 [facility] Automated leukocytes count i n urine sediment (number/area)Ordered By: Kary Lux on 11-18-2021 WBC Auto (Urine sed) [#/Area] 0-1 [HPF] 0-4 [facility] Barbiturates [Presence] in U rineOrdered By: Kary Lux on 11-18-2021 Barbiturates Ql (U) Negative Negative [facility] Basophils Auto (Bld) [#/Vol] Ordered By: Kary Lux on 11-18-2021 Basophils (Bld) [#/Vol] 0.0 10*3/uL 0.0-0.2 [facility] Basophils/100 WBC Auto (Bld) Ordered By: Kary Lux on 11-18-2021 Basophils/100 WBC (Bld) 0.6 % . [facility] Benzodiazepines [Presence] i n UrineOrdered By: Kary Lux on 11-18-2021 Benzodiazepines Ql (U) Negative Negative [facility] Bilirubin Auto test strip Ql (U)Ordered By: Kary Lux on 11-18-2021 Bilirubin Ql (U) 1+ Negative [facility] Blood hemoglobin measurement (mass/volume)Ordered By: Kary Lux on 11-18-2021 Hemoglobin (Bld) [Mass/Vol] 14.5 g/dL 11.8-15.4 [facility] Blood leukocytes automated c ount (number/volume)Ordered By: Kary Lux on 11-18-2021 WBC (Bld) [#/Vol] 8.4 10*3/uL 4.5-11.0 [facility] Cannabinoids [Presence] in U rine by Screen methodOrdered By: Kary Lux on 11-18-2021 Cannabinoids Screen Ql (U) Positive Negative [facility] Comment on above: These are unconfirme d results and should not be used for legal purposes. Drug Cut-Off Concentration: AMPH 1000 ng/mL YISEL 200 ng/mL LUCA 200 ng/mL COCM 300 ng/mL OP 300 ng/mL PCP 25 ng/mL THC 20 ng/mL Creatinine and Glomerular fi ltration rate.predicted panel (S/P/Bld)Ordered By: Kary Lux on 11-18-2021 Creatinine [Mass/Vol] 0.88 mg/dL 0.44-1.03 [facility] Eosinophils Auto (Bld) [#/Vo l]Ordered By: Kary Lux on 11-18-2021 Eosinophils (Bld) [#/Vol] 0.4 10*3/uL 0.0-0.45 [facility] Eosinophils/100 WBC Auto (Bl d)Ordered By: Kary Lux on 11-18-2021 Eosinophils/100 WBC (Bld) 4.9 % . [facility] Erythrocyte distribution wid th Auto (RBC) [Ratio]Ordered By: Kary Lux on 11-18-2021 Erythrocyte distribution width (RBC) [Ratio] 12.9 % 11.9-15.3 [facility] Estimated glomerular filtrat ion rate (GFR) non- AmericanOrdered By: Kary Lux on 11-18-2021 GFR/1.73 sq M.predicted among non-blacks MDRD (S/P/Bld) [Vol rate/Area] > 60 mL/Min [facility] Globulin Calc (S) [Mass/Vol] Ordered By: Kary Lux on 11-18-2021 Globulin (S) [Mass/Vol] 2.7 g/dL [facility] HCG ( test) IA.rapi d Ql (U)Ordered By: Kary Lux on 11-18-2021 HCG ( test) Ql (U) Negative [facility] Hematocrit Auto (Bld) [Volum e fraction]Ordered By: Kary Lux on 11-18-2021 Hematocrit (Bld) [Volume fraction] 43.3 % 34.0-46.4 [facility] Ketones Auto test strip (U) [Mass/Vol]Ordered By: Kary Lux on 11-18-2021 Ketones (U) [Mass/Vol] 1+ Negative [facility] Laboratory - Chemistry and C hemistry - challengeOrdered By: Kary Lux on 11-18-2021 Lipase [Catalytic activity/Vol] 25.0 U/L 22-51 [facility] Magnesium [Mass/Vol] 1.7 mg/dL 1.6-2.6 [facility] Laboratory - Drug toxicology Ordered By: Kary Lux on 11-18-2021 Opiates Ql (U) Negative Negative [facility] Laboratory - Hematology and Cell countsOrdered By: Kary Lux on 11-18-2021 Nucleated RBC/100 WBC (Bld) [Ratio] 0.0 % 0-0.5 [facility] - UrinalysisOrder ed By: Kary Lux on 11-18-2021 Hyaline casts LM Ql (Urine sed) 0-8 [LPF] 0-8 [facility] Lymphocytes Auto (Bld) [#/Vo l]Ordered By: Kary Lux on 11-18-2021 Lymphocytes (Bld) [#/Vol] 1.3 10*3/uL 1.00-4.8 [facility] Lymphocytes/100 WBC Auto (Bl d)Ordered By: Kary Lux on 11-18-2021 Lymphocytes/100 WBC (Bld) 15.2 % . [facility] MCH Auto (RBC) [Entitic mass ]Ordered By: Kary Lux on 11-18-2021 MCH (RBC) [Entitic mass] 31.2 pg 24.7-34.3 [facility] MCHC Auto (RBC) [Mass/Vol]Or dered By: Kary Lux on 11-18-2021 MCHC (RBC) [Mass/Vol] 33.6 g/dL 32.0-35.0 [facility] MCV Auto (RBC) [Entitic vol] Ordered By: Kary Lux on 11-18-2021 MCV (RBC) [Entitic vol] 92.8 fL 80-100 [facility] Monocytes Auto (Bld) [#/Vol] Ordered By: Kary Lux on 11-18-2021 Monocytes (Bld) [#/Vol] 0.4 10*3/uL 0.0-0.8 [facility] Monocytes/100 WBC Auto (Bld) Ordered By: Kary Lux on 11-18-2021 Monocytes/100 WBC (Bld) 4.8 % . [facility] Neutrophils Auto (Bld) [#/Vo l]Ordered By: Kary Lux on 11-18-2021 Neutrophils (Bld) [#/Vol] 6.2 10*3/uL 1.8-7.7 [facility] Neutrophils/100 WBC Auto (Bl d)Ordered By: Kary Lux on 11-18-2021 Neutrophils/100 WBC (Bld) 74.5 % . [facility] No Panel InformationOrdered By: Kary Lux on 11-18-2021 Estimated GFR () > 60 mL/Min [facility] Comment on above: GFR estimated refere nce range: According to KDOQI guidelines, <60 ml/min/1.73m2 is sufficient to diagnose a patient with chronic kidney disease. Pharmacy Creatinine Clearance (Chem 81.42 [facility] Phencyclidine Screen Ql (U)O rdered By: Kary Lux on 11-18-2021 Phencyclidine Ql (U) Negative Negative [facility] Platelet mean volume Auto (B ld) [Entitic vol]Ordered By: Kary Lux on 11-18-2021 Platelet mean volume (Bld) [Entitic vol] 9.9 fL 6.3-10.7 [facility] Platelets Auto (Bld) [#/Vol] Ordered By: Kary Lux on 11-18-2021 Platelets (Bld) [#/Vol] 231 10*3/uL 150-450 [facility] Protein Auto test strip (U) [Mass/Vol]Ordered By: Kary Lux on 11-18-2021 Protein (U) [Mass/Vol] Trace mg/dL Negative F [facility] Protein [Mass/volume] in Ser um or PlasmaOrdered By: Kary Lux on 11-18-2021 Protein [Mass/Vol] 7.0 g/dL 6.1-7.9 [facility] RBC Auto (Bld) [#/Vol]Ordere d By: Kary Lux on 11-18-2021 RBC (Bld) [#/Vol] 4.66 10*6/uL 3.60-5.00 [facility] Serum or plasma alanine nielsen otransferase measurement without P-5'-P (enzymatic activiOrdered By: Kary Lux on 11-18-2021 ALT No additional P-5'-P [Catalytic activity/Vol] 19 U/L 10-60 [facility] Serum or plasma albumin/glob ulin mass ratioOrdered By: Kary Lux on 11-18-2021 Albumin/Globulin [Mass ratio] 1.6 {ratio} [facility] Serum or plasma alkaline alvina sphatase measurement (enzymatic activity/volume)Ordered By: Kary Lux on 11-18-2021 ALP [Catalytic activity/Vol] 43 U/L 32-92 [facility] Serum or plasma aspartate am inotransferase measurement (enzymatic activity/volume)Ordered By: Kary Lux on 11-18-2021 AST [Catalytic activity/Vol] 23 U/L 10-42 [facility] Serum or plasma calcium cassandra urement (mass/volume)Ordered By: Kary Lux on 11-18-2021 Calcium [Mass/Vol] 9.5 mg/dL 8.2-10.2 [facility] Serum or plasma chloride darian surement (moles/volume)Ordered By: Kary Lux on 11-18-2021 Chloride [Moles/Vol] 101 mmol/L 95-114 [facility] Serum or plasma glucose cassandra urement (mass/volume)Ordered By: Kary Lux on 11-18-2021 Glucose [Mass/Vol] 76 mg/dL 70-100 [facility] Comment on above: ADA recommended refe rence range Random Glucose Reference Range is dependent on time and content of last meal. Glucose of more than 200 mg/dL in a nonstressed, ambulatory subject supports the diagnosis of Diabetes Mellitus. Serum or plasma potassium me asurement (moles/volume)Ordered By: Kary Lux on 11-18-2021 Potassium [Moles/Vol] 3.5 mmol/L 3.5-5.1 [facility] Serum or plasma sodium measu rement (moles/volume)Ordered By: Kary Lux on 11-18-2021 Sodium [Moles/Vol] 137 mmol/L 136-146 [facility] Serum or plasma total biliru bin measurement (mass/volume)Ordered By: Kary Lux on 11-18-2021 Bilirubin [Mass/Vol] 1.4 mg/dL 0.3-1.2 [facility] Comment on above: Samples from patient s who have taken Naproxen have shown spurious elevation in Total Bilirubin levels. A metabolite of Naproxen, O-desmethylnaproxen, has been shown to interfere with the Vincent-Arthur method for measuring Total Bilirubin. Serum or plasma total carbon dioxide measurement (moles/volume)Ordered By: Kary Lux on 11-18-2021 CO2 [Moles/Vol] 22.7 mmol/L 22.0-30.0 [facility] Serum or plasma urea nitroge n measurement (mass/volume)Ordered By: Kary Lux on 11-18-2021 Urea nitrogen [Mass/Vol] 7 mg/dL 9-23 [facility] Squamous epithelial cells de tection in urine sediment by light microscopyOrdered By: Kary Lux on 11-18-2021 Epithelial cells.squamous LM Ql (Urine sed) 5-9 [HPF] 0-2 [facility] Urine appearanceOrdered By: Kary Lux on 11-18-2021 Appearance (U) Clear Clear [facility] Urine bacteria detection by automated methodOrdered By: Kary Lux on 11-18-2021 Bacteria Auto Ql (U) None seen None Seen [facility] Urine cocaine detectionOrder ed By: Kary Lux on 11-18-2021 Cocaine Ql (U) Negative Negative [facility] Urine colorOrdered By: Kary Lux on 11-18-2021 Color (U) Yellow Yellow [facility] Urine glucose measurement by automated test strip (mass/volume)Ordered By: Kary Lux on 11-18-2021 Glucose Auto test strip (U) [Mass/Vol] Normal mg/dL Normal [facility] Urine hemoglobin detection b y automated test stripOrdered By: Kary Lux on 11-18-2021 Hemoglobin Auto test strip Ql (U) Negative Negative [facility] Urine leukocyte esterase det ection by automated test stripOrdered By: Kary Lux on 11-18-2021 Leukocyte esterase Auto test strip Ql (U) Negative Negative [facility] Urine nitrite detection by a utomated test stripOrdered By: Kary Lux on 11-18-2021 Nitrite Auto test strip Ql (U) Negative Negative [facility] Urobilinogen Auto test strip (U) [Mass/Vol]Ordered By: Kary Lux on 11-18-2021 Urobilinogen (U) [Mass/Vol] Normal mg/dL Normal [facility] pH Auto test strip (U)Ordere d By: Kary Lux on 11-18-2021 pH (U) 1.030 [pH] 1.001-1.030 [facility] pH (U) 5.0 [pH] 5.0-9.0 [facility] Albumin [Mass/volume] in Ser um or PlasmaOrdered By: Phillip Davis on 11-15-2021 Albumin [Mass/Vol] 4.3 g/dL 3.2-5.5 [facility] Blood hemoglobin measurement (mass/volume)Ordered By: Phillip Davis on 11-15-2021 Hemoglobin (Bld) [Mass/Vol] 14.5 g/dL 11.8-15.4 [facility] Creatinine and Glomerular fi ltration rate.predicted panel (S/P/Bld)Ordered By: Phillip Davis on 11-15-2021 Creatinine [Mass/Vol] 1.00 mg/dL 0.44-1.03 [facility] Erythrocyte distribution wid th Auto (RBC) [Ratio]Ordered By: Phillip Davis on 11-15-2021 Erythrocyte distribution width (RBC) [Ratio] 13.2 % 11.9-15.3 [facility] Estimated glomerular filtrat ion rate (GFR) non- AmericanOrdered By: Phillip Davis on 11-15-2021 GFR/1.73 sq M.predicted among non-blacks MDRD (S/P/Bld) [Vol rate/Area] > 60 mL/Min [facility] Globulin Calc (S) [Mass/Vol] Ordered By: Phillip Davis on 11-15-2021 Globulin (S) [Mass/Vol] 2.7 g/dL [facility] Hematocrit Auto (Bld) [Volum e fraction]Ordered By: Phillip Davis on 11-15-2021 Hematocrit (Bld) [Volume fraction] 42.9 % 34.0-46.4 [facility] Franquez [Moles/volume] in Se rum or PlasmaOrdered By: Phillip Davis on 11-15-2021 Franquez [Moles/Vol] mmol/L 0.60-1.20 [facility] MCH Auto (RBC) [Entitic mass ]Ordered By: Phillip Davis on 11-15-2021 MCH (RBC) [Entitic mass] 31.5 pg 24.7-34.3 [facility] MCHC Auto (RBC) [Mass/Vol]Or dered By: Phillip Davis on 11-15-2021 MCHC (RBC) [Mass/Vol] 33.8 g/dL 32.0-35.0 [facility] MCV Auto (RBC) [Entitic vol] Ordered By: Phillip Davis on 11-15-2021 MCV (RBC) [Entitic vol] 93.1 fL 80-100 [facility] No Panel InformationOrdered By: Phillip Davis on 11-15-2021 Estimated GFR () > 60 mL/Min [facility] Comment on above: GFR estimated refere nce range: According to KDOQI guidelines, <60 ml/min/1.73m2 is sufficient to diagnose a patient with chronic kidney disease. Pharmacy Creatinine Clearance (Chem N/A [facility] Platelet mean volume Auto (B ld) [Entitic vol]Ordered By: Phillip Davis on 11-15-2021 Platelet mean volume (Bld) [Entitic vol] 10.0 fL 6.3-10.7 [facility] Platelets Auto (Bld) [#/Vol] Ordered By: Phillip Davis on 11-15-2021 Platelets (Bld) [#/Vol] 250 10*3/uL 150-450 [facility] Protein [Mass/volume] in Ser um or PlasmaOrdered By: Phillip Davis on 11-15-2021 Protein [Mass/Vol] 7.0 g/dL 6.1-7.9 [facility] RBC Auto (Bld) [#/Vol]Ordere d By: Phillip Davis on 11-15-2021 RBC (Bld) [#/Vol] 4.61 10*6/uL 3.60-5.00 [facility] Serum or plasma alanine nielsen otransferase measurement without P-5'-P (enzymatic activiOrdered By: Phillip Davis on 11-15-2021 ALT No additional P-5'-P [Catalytic activity/Vol] 20 U/L 10-60 [facility] Serum or plasma albumin/glob ulin mass ratioOrdered By: Phillip Davis on 11-15-2021 Albumin/Globulin [Mass ratio] 1.6 {ratio} [facility] Serum or plasma alkaline alvina sphatase measurement (enzymatic activity/volume)Ordered By: Phillip Davis on 11-15-2021 ALP [Catalytic activity/Vol] 44 U/L 32-92 [facility] Serum or plasma aspartate am inotransferase measurement (enzymatic activity/volume)Ordered By: Phillip Davis on 11-15-2021 AST [Catalytic activity/Vol] 20 U/L 10-42 [facility] Serum or plasma calcium cassandra urement (mass/volume)Ordered By: Phillip Davis on 11-15-2021 Calcium [Mass/Vol] 9.9 mg/dL 8.2-10.2 [facility] Serum or plasma chloride darian surement (moles/volume)Ordered By: Phillip Davis on 11-15-2021 Chloride [Moles/Vol] 101 mmol/L 95-114 [facility] Serum or plasma glucose cassandra urement (mass/volume)Ordered By: Phillip Davis on 11-15-2021 Glucose [Mass/Vol] 96 mg/dL 70-100 [facility] Comment on above: ADA recommended refe rence range Random Glucose Reference Range is dependent on time and content of last meal. Glucose of more than 200 mg/dL in a nonstressed, ambulatory subject supports the diagnosis of Diabetes Mellitus. Serum or plasma potassium me asurement (moles/volume)Ordered By: Phillip Davis on 11-15-2021 Potassium [Moles/Vol] 3.6 mmol/L 3.5-5.1 [facility] Serum or plasma sodium measu rement (moles/volume)Ordered By: Phillip Davis on 11-15-2021 Sodium [Moles/Vol] 138 mmol/L 136-146 [facility] Serum or plasma total biliru bin measurement (mass/volume)Ordered By: Phillip Davis on 11-15-2021 Bilirubin [Mass/Vol] 0.9 mg/dL 0.3-1.2 [facility] Serum or plasma total carbon dioxide measurement (moles/volume)Ordered By: Phillip Davis on 11-15-2021 CO2 [Moles/Vol] 26.1 mmol/L 22.0-30.0 [facility] Serum or plasma urea nitroge n measurement (mass/volume)Ordered By: Phillip Davis on 11-15-2021 Urea nitrogen [Mass/Vol] 9 mg/dL 9- [facility] WBC Auto (Bld) [#/Vol]Ordere d By: Phillip Davis on 11-15-2021 WBC (Bld) [#/Vol] 6.4 10*3/uL 3.8-11.6 [facility] Vital Signs Date Time Vital Sign Value Performing Clinician Facility 01-05-2025 14:16-0400 Body height 157.5 cm [facility] 01-05-2025 14:16-0400 Body mass index (BMI) [Ratio] 34.75 kg/m2 [facility] 01-05-2025 14:16-0400 Body weight 86.18 kg [facility] 01-04-2025 07:30-0400 Body temperature 97.8 [degF] [employer] RESOURCE EFFICIENCY MANAGER-C Work Phone: [facility] 01-04-2025 07:30-0400 Diastolic blood pressure 84 mm[Hg] [employer] RESOURCE EFFICIENCY MANAGER-C Work Phone: [facility] 01-04-2025 07:30-0400 Heart rate 56 /min [employer] RESOURCE EFFICIENCY MANAGER-C Work Phone: [facility] 01-04-2025 07:30-0400 Respiratory rate 18 /min [employer] RESOURCE EFFICIENCY MANAGER-C Work Phone: [facility] 01-04-2025 07:30-0400 SaO2% (BldA) [Mass fraction] 96 % [employer] RESOURCE EFFICIENCY MANAGER-C Work Phone: [facility] 01-04-2025 07:30-0400 Systolic blood pressure 133 mm[Hg] [employer] RESOURCE EFFICIENCY MANAGER-C Work Phone: [facility] 01-03-2025 09:00-0400 Body weight 86.2 kg [employer] RESOURCE EFFICIENCY MANAGER-C Work Phone: [facility] 12-31-2024 21:50-0400 Body height 157.48 cm [employer] RESOURCE EFFICIENCY MANAGER-C Work Phone: [facility] 12-22-2024 10:39-0400 Body height 157.5 cm Dell Morrison DO Work Phone: [facility] [employer] [facility] 12-22-2024 10:39-0400 Body mass index (BMI) [Ratio] 36.64 kg/m2 Dell Morrison DO Work Phone: [facility] 12-22-2024 10:39-0400 Body weight 90.9 kg Dell Morrison DO Work Phone: [facility] 12-22-2024 10:39-0400 Diastolic blood pressure 75 mm[Hg] Dell Morrison DO Work Phone: [facility] 12-22-2024 10:39-0400 Heart rate 74 /min Dell Morrison DO Work Phone: [facility] 12-22-2024 10:39-0400 Systolic blood pressure 131 mm[Hg] Dell Morrison DO Work Phone: [facility] 12-13-2024 14:02-0400 Body height 157.5 cm Faith Ferguson 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ICER Work Phone: [facility] 12-13-2024 14:02-0400 Body mass index (BMI) [Ratio] 35.11 kg/m2 Faith Ferguson 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[employer] S[employer]ICER Work Phone: [facility] 12-13-2024 14:02-0400 Body temperature 98.4 [degF] Faith Ferguson 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[employer] S[employer]ICER Work Phone: [facility] 12-13-2024 14:02-0400 Body weight 87.09 kg Faith Ferguson 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[employer]ICER Work Phone: [facility] 12-13-2024 14:02-0400 Diastolic blood pressure 84 mm[Hg] Faith Ferguson 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ICER Work Phone: [facility] 12-13-2024 14:02-0400 Heart rate 78 /min Faith Ferguson 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[employer]ICER Work Phone: [facility] 12-13-2024 14:02-0400 SaO2% (BldA) [Mass fraction] 98 % Faith Ferguson 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ICER Work Phone: [facility] 12-13-2024 14:02-0400 Systolic blood pressure 128 mm[Hg] Faith Ferguson 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ICER Work Phone: [facility] 09-22-2024 14:02-0400 Body height 157.5 cm Werner Foster 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[employer] Work Phone: [facility] 09-22-2024 14:02-0400 Body mass index (BMI) [Ratio] 35.67 kg/m2 Werner Foster 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[employer]CN[employer] Work Phone: [facility] 09-22-2024 14:02-0400 Body weight 88.45 kg Werner Foster 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[employer] Work Phone: [facility] 09-22-2024 14:02-0400 Diastolic blood pressure 72 mm[Hg] Werner Foster 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[employer]CN[employer] Work Phone: [facility] 09-22-2024 14:02-0400 Systolic blood pressure 116 mm[Hg] Werner Foster 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[employer] Work Phone: [facility] 09-20-2024 09:00-0400 Body weight 85.27 kg Letty Lewiser RESOURCE EFFICIENCY MANAGER-C Work Phone: [facility] 09-20-2024 07:30-0400 Body temperature 97.7 [degF] Letty Brian RESOURCE EFFICIENCY MANAGER-C Work Phone: [facility] 09-20-2024 07:30-0400 Diastolic blood pressure 83 mm[Hg] Letty Brian RESOURCE EFFICIENCY MANAGER-C Work Phone: [facility] 09-20-2024 07:30-0400 Heart rate 81 /min Letty Brian RESOURCE EFFICIENCY MANAGER-C Work Phone: [facility] 09-20-2024 07:30-0400 Respiratory rate 18 /min Letty Lewiser RESOURCE EFFICIENCY MANAGER-C Work Phone: [facility] 09-20-2024 07:30-0400 SaO2% (BldA) [Mass fraction] 99 % Letty Brian RESOURCE EFFICIENCY MANAGER-C Work Phone: [facility] 09-20-2024 07:30-0400 Systolic blood pressure 134 mm[Hg] Letty Brian RESOURCE EFFICIENCY MANAGER-C Work Phone: [facility] 09-17-2024 13:45-0400 Body height 157.48 cm Letty Brian RESOURCE EFFICIENCY MANAGER-C Work Phone: [facility] 09-09-2024 15:17-0400 Diastolic blood pressure 81 mm[Hg] [facility]ozo [facility] 09-09-2024 15:17-0400 SaO2% (BldA) [Mass fraction] 96 % Sarkis Pozo MD Work Phone: [facility] 09-09-2024 15:17-0400 Systolic blood pressure 169 mm[Hg] Sarkis Pozo MD [facility] 09-09-2024 12:25-0400 Heart rate 84 /min Sarkis Pozo MD [facility] 09-09-2024 12:19-0400 Body mass index (BMI) [Ratio] 27.44 kg/m2 Sarkis Pozo MD Work Phone: [facility] 09-09-2024 12:19-0400 Body temperature 98.29 [degF] Sarkis Pozo MD Work Phone: [facility] 09-09-2024 12:19-0400 Body weight 68.04 kg Sarkis Pozo MD Work Phone: [facility] 09-09-2024 12:19-0400 Respiratory rate 18 /min Sarkis Pozo MD Work Phone: [facility] 08-17-2024 16:19-0400 Diastolic blood pressure 82 mm[Hg] Rose Mckoy DO Work Phone: [facility] 08-17-2024 16:19-0400 Heart rate 66 /min Rose Mckoy DO Work Phone: [facility] 08-17-2024 16:19-0400 Respiratory rate 13 /min Rose Mckoy DO Work Phone: [facility] 08-17-2024 16:19-0400 SaO2% (BldA) [Mass fraction] 94 % Rose Mckoy DO Work Phone: [facility] 08-17-2024 16:19-0400 Systolic blood pressure 121 mm[Hg] Rose Mckoy DO Work Phone: [facility] 08-17-2024 13:39-0400 Body mass index (BMI) [Ratio] 30.18 kg/m2 Rose Mckoy DO Work Phone: [facility] 08-17-2024 13:39-0400 Body temperature 98.71 [degF] Rose Mckoy DO Work Phone: [facility] 08-17-2024 13:39-0400 Body weight 74.84 kg Rose [facility]ckoy DO [facility] 07-18-2024 07:24-0400 Body temperature 98.1 [degF] Services [facility] Work Phone: [facility] 07-18-2024 07:24-0400 Diastolic blood pressure 91 mm[Hg] Services [facility] Work Phone: [facility] 07-18-2024 07:24-0400 Heart rate 75 /min Services [facility] Work Phone: [facility] 07-18-2024 07:24-0400 Respiratory rate 18 /min Services [employer] Work Phone: [facility] 07-18-2024 07:24-0400 SaO2% (BldA) [Mass fraction] 97 % Services [facility] [employer] Work Phone: [facility] 07-18-2024 07:24-0400 Systolic blood pressure 139 mm[Hg] Services [facility] [employer] Work Phone: [facility] 07-14-2024 14:20-0500 Body height 157.48 cm Services [facility] [employer] Work Phone: [facility] 07-14-2024 02:30-0500 Body weight 81.64 kg Services [facility] [employer] Work Phone: [facility] 07-13-2024 23:08-0500 Diastolic blood pressure 70 mm[Hg] Rose Mckoy DO Work Phone: [facility] 07-13-2024 23:08-0500 Heart rate 78 /min Rose Mckoy DO Work Phone: [facility] 07-13-2024 23:08-0500 Respiratory rate 16 /min Rose Mckoy DO Work Phone: [facility] 07-13-2024 23:08-0500 SaO2% (BldA) [Mass fraction] 98 % Rose Mckoy DO Work Phone: [facility] 07-13-2024 23:08-0500 Systolic blood pressure 141 mm[Hg] Rose Mckoy DO Work Phone: [facility] 07-13-2024 13:42-0500 Body mass index (BMI) [Ratio] 29.26 kg/m2 Rose Mckoy DO Work Phone: [facility] 07-13-2024 13:42-0500 Body temperature 97.81 [degF] Rose Mckoy DO Work Phone: [facility] 07-13-2024 13:42-0500 Body weight 72.58 kg Rose Mckoy DO Work Phone: [facility] 06-18-2024 07:30-0500 Body temperature 97.9 [degF] Services [facility] Work Phone: [facility] 06-18-2024 07:30-0500 Diastolic blood pressure 95 mm[Hg] Services [facility] Work Phone: [facility] 06-18-2024 07:30-0500 Heart rate 69 /min Services [facility] Work Phone: [facility] 06-18-2024 07:30-0500 Respiratory rate 18 /min Services [facility] Work Phone: [facility] 06-18-2024 07:30-0500 SaO2% (BldA) [Mass fraction] 98 % Services [facility] Work Phone: [facility] 06-18-2024 07:30-0500 Systolic blood pressure 137 mm[Hg] Services [facility] Work Phone: [facility] 06-16-2024 12:24-0500 Body height 157.48 cm Services [facility] Work Phone: [facility] 06-15-2024 18:22-0500 Body weight 85.23 kg Services [facility] Work Phone: [facility] 06-15-2024 16:57-0500 Body temperature 98.6 [degF] Letty Brian 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[employer]ICER Work Phone: [facility] 06-15-2024 16:57-0500 Diastolic blood pressure 82 mm[Hg] Letty Brian 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[employer] SPLICER Work Phone: [employer] 06-15-2024 16:57-0500 Heart rate 72 /min Letty Brian 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[employer] S[employer]ICER Work Phone: [facility] 06-15-2024 16:57-0500 Respiratory rate 16 /min Letty Brian 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[employer] SPLICER Work Phone: [facility] 06-15-2024 16:57-0500 SaO2% (BldA) [Mass fraction] 97 % Letty Brian 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[employer] S[employer]ICER Work Phone: [facility] 06-15-2024 16:57-0500 Systolic blood pressure 141 mm[Hg] Letty Brian 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[employer] S[employer]ICER Work Phone: [facility] 06-15-2024 12:57-0500 Body mass index (BMI) [Ratio] 29.26 kg/m2 Letty Brian 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[employer] SPLICER Work Phone: [facility] 06-15-2024 12:57-0500 Body weight 72.58 kg Letty Brian 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[employer]ICER Work Phone: [facility] 05-24-2024 08:46-0500 Body weight 81.64 kg Letty Brian RESOURCE EFFICIENCY MANAGER-C Work Phone: [facility] 05-24-2024 07:30-0500 Body temperature 97.6 [degF] Letty Brian RESOURCE EFFICIENCY MANAGER-C Work Phone: [facility] 05-24-2024 07:30-0500 Diastolic blood pressure 81 mm[Hg] Letty Brian RESOURCE EFFICIENCY MANAGER-C Work Phone: [facility] 05-24-2024 07:30-0500 Heart rate 58 /min Letty Brian RESOURCE EFFICIENCY MANAGER-C Work Phone: [facility] 05-24-2024 07:30-0500 Respiratory rate 18 /min Letty Brian RESOURCE EFFICIENCY MANAGER-C Work Phone: [facility] 05-24-2024 07:30-0500 SaO2% (BldA) [Mass fraction] 96 % Letty Brian RESOURCE EFFICIENCY MANAGER-C Work Phone: [facility] 05-24-2024 07:30-0500 Systolic blood pressure 117 mm[Hg] [employer] RESOURCE EFFICIENCY MANAGER-C Work Phone: [facility] 05-18-2024 13:36-0500 Body height 157.48 cm Letty Brian RESOURCE EFFICIENCY MANAGER-C Work Phone: [facility] 04-01-2024 14:32-0500 Body height 157.48 cm [facility] Work Phone: [facility] 04-01-2024 14:32-0500 Body mass index (BMI) [Ratio] 33.9 kg/m2 [facility] Work Phone: [facility] 04-01-2024 14:32-0500 Body temperature 97.6 [degF] [facility] Work Phone: [facility] 04-01-2024 14:32-0500 Body weight 84.14 kg Services [employer] [facility] Work Phone: [facility] 04-01-2024 14:32-0500 Diastolic blood pressure 83 mm[Hg] Services [employer] Work Phone: [facility] 04-01-2024 14:32-0500 Heart rate 93 /min [facility] [employer] [facility] Work Phone: [facility] 04-01-2024 14:32-0500 Respiratory rate 18 /min [facility] [employer] [facility] Work Phone: [facility] 04-01-2024 14:32-0500 SaO2% (BldA) [Mass fraction] 98 % [facility] Work Phone: [facility] 04-01-2024 14:32-0500 Systolic blood pressure 133 mm[Hg] Services [employer] [facility] Work Phone: [facility] 01-19-2024 09:00-0400 Body weight 72.2 kg Services [employer] [facility] Work Phone: [facility] 01-19-2024 07:30-0400 Body temperature 98.1 [degF] Services [employer] Work Phone: [facility] 01-19-2024 07:30-0400 Diastolic blood pressure 85 mm[Hg] Services [employer] Work Phone: [facility] 01-19-2024 07:30-0400 Heart rate 68 /min [facility] Work Phone: [facility] 01-19-2024 07:30-0400 Respiratory rate 18 /min Services [employer] Work Phone: [facility] 01-19-2024 07:30-0400 SaO2% (BldA) [Mass fraction] 96 % Services [employer] Work Phone: [facility] 01-19-2024 07:30-0400 Systolic blood pressure 142 mm[Hg] Services [employer] Work Phone: [facility] 01-13-2024 14:14-0400 Body height 157.48 cm Services [employer] [facility] Work Phone: [facility] 06-25-2023 12:15-0500 Body height 157.[address] Work Phone: [facility] 06-25-2023 12:15-0500 Body weight 58.[address] Work Phone: [facility] 03-21-2023 11:00-0500 Diastolic blood pressure 70 mm[Hg] RESOURCE EFFICIENCY MANAGER-C [employer] Work Phone: [facility] 03-21-2023 11:00-0500 Heart rate 90 /min RESOURCE EFFICIENCY MANAGER-C [employer] Work Phone: [facility] 03-21-2023 11:00-0500 Respiratory rate 16 /min RESOURCE EFFICIENCY MANAGER-C Letty Brian Work Phone: [facility] [facility] 03-21-2023 11:00-0500 SaO2% (BldA) [Mass fraction] 96 % RESOURCE EFFICIENCY MANAGER-C [employer] Work Phone: [facility] 03-21-2023 11:00-0500 Systolic blood pressure 126 mm[Hg] RESOURCE EFFICIENCY MANAGER-C Letty Brian Work Phone: [facility] 03-21-2023 07:51-0500 Body height 157.48 cm RESOURCE EFFICIENCY MANAGER-C Letty Brian Work Phone: 5(599)[phone] [place] [address] 03-21-2023 07:51-0500 Body temperature 98.1 [degF] RESOURCE EFFICIENCY MANAGER-C Letty Brian Work Phone: [facility] 03-21-2023 07:51-0500 Body weight 60.78 kg RESOURCE EFFICIENCY MANAGER-C Letty Brian Work Phone: [facility] 03-13-2023 16:46-0400 Diastolic blood pressure 70 mm[Hg] RESOURCE EFFICIENCY MANAGER-C Letty Brian Work Phone: [facility] 03-13-2023 16:46-0400 Heart rate 80 /min RESOURCE EFFICIENCY MANAGER-C Letty Brian Work Phone: [facility] 03-13-2023 16:46-0400 Respiratory rate 18 /min RESOURCE EFFICIENCY MANAGER-C Letty Brian Work Phone: [facility] 03-13-2023 16:46-0400 SaO2% (BldA) [Mass fraction] 98 % RESOURCE EFFICIENCY MANAGER-C Letty Brian Work Phone: [facility] 03-13-2023 16:46-0400 Systolic blood pressure 139 mm[Hg] RESOURCE EFFICIENCY MANAGER-C Letty Brian Work Phone: [facility] 03-13-2023 13:19-0400 Body height 157.48 cm RESOURCE EFFICIENCY MANAGER-C Letty Brian Work Phone: [facility] 03-13-2023 13:19-0400 Body temperature 98.7 [degF] RESOURCE EFFICIENCY MANAGER-C Letty Brian Work Phone: [facility] 03-13-2023 13:19-0400 Body weight 64 kg RESOURCE EFFICIENCY MANAGER-C Letty Brian Work Phone: [facility] 03-11-2023 13:44-0400 Body temperature 98.7 [degF] RESOURCE EFFICIENCY MANAGER-C Letty Brian Work Phone: [facility] 03-11-2023 13:44-0400 Diastolic blood pressure 79 mm[Hg] RESOURCE EFFICIENCY MANAGER-C Letty Brian Work Phone: [facility] 03-11-2023 13:44-0400 Heart rate 62 /min RESOURCE EFFICIENCY MANAGER-C Letty Brian Work Phone: [facility] 03-11-2023 13:44-0400 Respiratory rate 18 /min RESOURCE EFFICIENCY MANAGER-C Letty Brian Work Phone: [facility] 03-11-2023 13:44-0400 SaO2% (BldA) [Mass fraction] 98 % RESOURCE EFFICIENCY MANAGER-C Letty Brian Work Phone: 4(886)[phone] [place] [address] 03-11-2023 13:44-0400 Systolic blood pressure 130 mm[Hg] RESOURCE EFFICIENCY MANAGER-C Letty Brian Work Phone: 4(163)[phone] [address] 03-11-2023 11:53-0400 Body height 157.48 cm RESOURCE EFFICIENCY MANAGER-C Letty Brian Work Phone: 5(470)[phone] [place] [address] 03-11-2023 11:53-0400 Body weight 64.8 kg RESOURCE EFFICIENCY MANAGER-C Letty Brian Work Phone: [facility] 01-23-2023 02:25-0400 Diastolic blood pressure 71 mm[Hg] RESOURCE EFFICIENCY MANAGER-C Letty Brian Work Phone: [facility] 01-23-2023 02:25-0400 Heart rate 60 /min RESOURCE EFFICIENCY MANAGER-C Letty Brian Work Phone: [facility] 01-23-2023 02:25-0400 Respiratory rate 18 /min RESOURCE EFFICIENCY MANAGER-C Letty Brian Work Phone: [facility] 01-23-2023 02:25-0400 SaO2% (BldA) [Mass fraction] 97 % RESOURCE EFFICIENCY MANAGER-C Letty Brian Work Phone: [facility] 01-23-2023 02:25-0400 Systolic blood pressure 119 mm[Hg] RESOURCE EFFICIENCY MANAGER-C Letty Brian Work Phone: [facility] 01-22-2023 19:11-0400 Body height 157.48 cm RESOURCE EFFICIENCY MANAGER-C Letty Brian Work Phone: [facility] 01-22-2023 19:11-0400 Body temperature 99.2 [degF] RESOURCE EFFICIENCY MANAGER-C Letty Brian Work Phone: [facility] 01-22-2023 19:11-0400 Body weight 70.05 kg RESOURCE EFFICIENCY MANAGER-C Letty Brian Work Phone: [facility] 10-23-2022 07:30-0400 Body temperature 97.2 [degF] MD Bogdan Barnes Work Phone: [facility] 10-23-2022 07:30-0400 Diastolic blood pressure 78 mm[Hg] MD Bogdan Barnes Work Phone: [facility] 10-23-2022 07:30-0400 Heart rate 65 /min MD Bogdan Barnes Work Phone: [facility] 10-23-2022 07:30-0400 Respiratory rate 16 /min MD Bogdan Barnes Work Phone: [facility] 10-23-2022 07:30-0400 SaO2% (BldA) [Mass fraction] 95 % MD Bogdan Barnes Work Phone: [facility] 10-23-2022 07:30-0400 Systolic blood pressure 114 mm[Hg] MD Bogdan Barnes Work Phone: [facility] 10-21-2022 09:00-0400 Body weight 68.12 kg MD Bogdan Barnes Work Phone: [facility] 10-18-2022 15:25-0400 Body height 157.48 cm MD Bogdan Barnes Work Phone: [facility] 10-09-2022 21:59-0400 Body temperature 98 [degF] Services [facility] Work Phone: [facility] 10-09-2022 21:59-0400 Diastolic blood pressure 76 mm[Hg] Services [facility] Work Phone: [facility] 10-09-2022 21:59-0400 Heart rate 100 /min Services [facility] Work Phone: [facility] 10-09-2022 21:59-0400 Respiratory rate 18 /min Services [facility] Work Phone: [facility] 10-09-2022 21:59-0400 SaO2% (BldA) [Mass fraction] 98 % Services [facility] Work Phone: [facility] 10-09-2022 21:59-0400 Systolic blood pressure 148 mm[Hg] Services [facility] Work Phone: [facility] 10-09-2022 19:17-0400 Body height 157.48 cm Services [facility] Work Phone: [facility] 10-09-2022 19:17-0400 Body weight 66.7 kg Services [facility] Work Phone: [facility] 07-24-2022 15:48-0400 Heart rate 89 /min Services [facility] Work Phone: [facility] 07-24-2022 15:48-0400 Respiratory rate 18 /min Services [facility] Work Phone: [facility] 07-24-2022 14:59-0400 Body height 157.48 cm Services [facility] Work Phone: [facility] 07-24-2022 14:59-0400 Body temperature 98.7 [degF] Services [facility] Work Phone: [facility] 07-24-2022 14:59-0400 Body weight 72.1 kg Services [facility] Work Phone: [facility] 07-24-2022 14:59-0400 Diastolic blood pressure 80 mm[Hg] Services [facility] Work Phone: [facility] 07-24-2022 14:59-0400 SaO2% (BldA) [Mass fraction] 95 % Services [facility] Work Phone: [facility] 07-24-2022 14:59-0400 Systolic blood pressure 141 mm[Hg] Services [employer] Work Phone: [facility] 05-13-2022 12:42-0500 Body temperature 98.24 [degF] Text Entry [facility] 05-13-2022 12:42-0500 Diastolic blood pressure 84 mm[Hg] Text Entry Free [facility] 05-13-2022 12:42-0500 Heart rate 98 /min Text Entry [facility] 05-13-2022 12:42-0500 Respiratory rate 17 /min Text Entry [facility] 05-13-2022 12:42-0500 SaO2% (BldA) [Mass fraction] 97 % Text Entry [facility] 05-13-2022 12:42-0500 Systolic blood pressure 121 mm[Hg] Text Entry [facility] 02-24-2022 21:51-0400 Diastolic blood pressure 90 mm[Hg] Text Entry [facility] 02-24-2022 21:51-0400 Heart rate 96 /min Text Entry [facility] 02-24-2022 21:51-0400 Respiratory rate 16 /min Text Entry [facility] 02-24-2022 21:51-0400 SaO2% (BldA) [Mass fraction] 98 % Text Entry [facility] 02-24-2022 21:51-0400 Systolic blood pressure 137 mm[Hg] Text Entry [facility] 02-24-2022 16:16-0400 Body height 157.4 cm Text Entry [facility] 02-24-2022 16:16-0400 Body temperature 97.52 [degF] Text Entry [facility] 02-24-2022 16:16-0400 Body weight 56 kg Text Entry [facility] 02-06-2022 19:35-0400 Body height 157.48 cm Services [employer] Work Phone: [facility] 02-06-2022 19:35-0400 Body temperature 98.4 [degF] Services [facility] Work Phone: [facility] 02-06-2022 19:35-0400 Body weight 63.5 kg Services [facility] Work Phone: [facility] 02-06-2022 19:35-0400 Diastolic blood pressure 105 mm[Hg] Services [facility] Work Phone: [facility] 02-06-2022 19:35-0400 Heart rate 64 /min Services [facility] Work Phone: [facility] 02-06-2022 19:35-0400 Respiratory rate 20 /min Services [facility] Work Phone: [facility] 02-06-2022 19:35-0400 SaO2% (BldA) [Mass fraction] 95 % Services [facility] Work Phone: [facility] 02-06-2022 19:35-0400 Systolic blood pressure 136 mm[Hg] Services [facility] Work Phone: [facility] 12-18-2021 09:00-0400 Body weight 61.97 kg Services [facility] Work Phone: [facility] 12-18-2021 07:23-0400 Body temperature 98 [degF] Services [facility] Work Phone: [facility] 12-18-2021 07:23-0400 Diastolic blood pressure 90 mm[Hg] Services [facility] Work Phone: [facility] 12-18-2021 07:23-0400 Heart rate 60 /min Services [facility] Work Phone: [facility] 12-18-2021 07:23-0400 Respiratory rate 18 /min Services [facility] Work Phone: [facility] 12-18-2021 07:23-0400 SaO2% (BldA) [Mass fraction] 98 % Services [facility] Work Phone: [facility] 12-18-2021 07:23-0400 Systolic blood pressure 126 mm[Hg] Services [facility] Work Phone: [facility] 12-17-2021 12:40-0400 Body height 157.48 cm Services [employer] Work Phone: [facility] 11-18-2021 21:45-0400 Diastolic blood pressure 68 mm[Hg] Services [employer] Work Phone: [facility] 11-18-2021 21:45-0400 Heart rate 62 /min Services [employer] Work Phone: [facility] 11-18-2021 21:45-0400 Respiratory rate 18 /min Services [employer] Work Phone: [facility] 11-18-2021 21:45-0400 SaO2% (BldA) [Mass fraction] 100 % Services [employer] Work Phone: [facility] 11-18-2021 21:45-0400 Systolic blood pressure 125 mm[Hg] Services [employer] Work Phone: [facility] 11-18-2021 18:39-0400 Body height 156.21 cm Services [employer] Work Phone: [facility] 11-18-2021 18:39-0400 Body mass index (BMI) [Ratio] 26.6 kg/m2 Services [employer] Phone: [facility] 11-18-2021 18:39-0400 Body temperature 98.5 [degF] Services [employer] Work Phone: [facility] 11-18-2021 18:39-0400 Body weight 65 kg Services [employer] Work Phone: [facility] Encounters Encounter Date Encounter Type Care Provider Facility Start: 01-11-2025 End: 01-11-2025 Evaluation and management of inpatient DELL MORRISON [facility] Start: 01-05-2025 End: 01-05-2025 Patient encounter procedure [facility] Pre-Admission Testing 1 [facility] - [facility] Start: 01-05-2025 End: 01-05-2025 ambulatory [facility] Start: 12-31-2024 Non-patient / Non-visit Brent Simmons MD [facility] Work Phone: Start: 12-31-2024 End: 01-04-2025 Evaluation and management of inpatient Letty Torres Facility:[facility] Start: 12-31-2024 End: 12-31-2024 Emergency department patient visit [facility] Start: 12-28-2024 Registered Recurring Bassam Davis MD [facility] Start: 12-27-2024 End: 12-27-2024 ambulatory [facility] Start: 12-22-2024 End: 12-22-2024 [facility] General Surgery Comment on above: Class 1 obesity due to excess calories without serious comorbidity with body mass index (BMI) of 30.0 to 30.9 in adult (Primary Dx); Lipoma of left lower extremity Start: 12-22-2024 End: 12-22-2024 ambulatory [facility] Start: 12-13-2024 End: 12-13-2024 [facility] 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-CANE SPLICER Work Phone: [facility] Family Medicine Comment on above: Lipoma of left lower extremity (Primary Dx); Moderate asthma without complication, unspecified whether persistent; Hx of major depression; Hx of anorexia nervosa; Anxiety; Pott's disease; Abnormal glucose; Screening for lipid disorders; High cholesterol Start: 12-13-2024 End: 12-13-2024 ambulatory [facility] Start: 09-22-2024 End: 09-22-2024 Initial preventive medicine new pt age 18-39yrs Werner Foster 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-CNM Work Phone: [facility] Phys[facility] Obstetrics/Gynecology Comment on above: Well woman exam with routine gynecological exam (Primary Dx); Cervical smear, as part of routine gynecological examination Start: 09-22-2024 End: 09-22-2024 Patient encounter procedure Werner Foster 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-CNM Work Phone: [facility] Work Phone: Start: 09-22-2024 End: 09-22-2024 ambulatory [facility] Start: 09-22-2024 End: 09-22-2024 Encounter for gynecological examination (general) (routine) without abnormal findings Werner Foster 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-CNM Work Phone: [facility] Start: 09-17-2024 Non-patient / Non-visit Letyt Lewiser RESOURCE EFFICIENCY MANAGER-C Work Phone: [facility] Work Phone: Start: 09-10-2024 Non-patient / Non-visit Letty Torres RESOURCE EFFICIENCY MANAGER-C Work Phone: [facility] Work Phone: Start: 09-10-2024 Registered Recurring Letty gilankia RESOURCE EFFICIENCY MANAGER-C Work Phone: [facility] Start: 09-09-2024 End: 09-20-2024 Evaluation and management of inpatient Letty Torres RESOURCE EFFICIENCY MANAGER-C Work Phone: [facility] [place] [address] Work Phone: Start: 09-09-2024 End: 09-09-2024 Emergency department patient visit Sarkis Pozo MD Work Phone: [facility] Comment on above: Suicidal ideation (P rimary Dx); Thoughts of self harm; Depression, unspecified depression type Start: 08-17-2024 End: 08-17-2024 Emergency department patient visit Rose Mckoy DO Work Phone: [facility] Comment on above: Depression, unspecif ied depression type (Primary Dx) Start: 07-14-2024 Non-patient / Non-visit Services Family [facility] Work Phone: [facility] Work Phone: Start: 07-14-2024 End: 07-18-2024 Evaluation and management of inpatient Services Family [facility] Work Phone: [facility] Work Phone: Start: 07-13-2024 End: 07-14-2024 Emergency department patient visit Rose Mckoy DO Work Phone: [facility] Comment on above: Multiple abrasions ( Primary Dx); Suicidal ideation Start: 07-05-2024 Registered Recurring Services Family [facility] Work Phone: [facility] Start: 06-16-2024 Non-patient / Non-visit Services [facility] Work Phone: [facility] Work Phone: Start: 06-15-2024 End: 06-18-2024 Evaluation and management of inpatient Services Family [facility] Work Phone: [facility] Work Phone: Start: 06-15-2024 End: 06-15-2024 Emergency department patient visit LETTY TORRES [facility] Start: 06-15-2024 Registered Recurring Services Family [facility] Work Phone: [facility] Start: 05-24-2024 Non-patient / Non-visit Letty Torres RESOURCE EFFICIENCY MANAGER-C Work Phone: [facility] Work Phone: Start: 05-17-2024 Non-patient / Non-visit Services [facility] Work Phone: [facility] Work Phone: Start: 05-17-2024 Non-patient / Non-visit Letty Torres RESOURCE EFFICIENCY MANAGER-C Work Phone: [facility] Work Phone: Start: 05-16-2024 End: 05-24-2024 Evaluation and management of inpatient Letty Torres RESOURCE EFFICIENCY MANAGER-C Work Phone: [facility]-[address] [place] [address] Work Phone: Start: 05-16-2024 Registered Recurring Letty marino RESOURCE EFFICIENCY MANAGER-C Work Phone: [facility] Start: 04-01-2024 End: 04-01-2024 ambulatory Services Family [facility] Work Phone: [facility] Work Phone: Start: 04-01-2024 End: 04-01-2024 Patient encounter procedure Services [facility] Work Phone: [facility] Physician [facility] Work Phone: Start: 02-18-2024 Registered Recurring Services [facility] Work Phone: [facility] Start: 01-13-2024 Non-patient / Non-visit Services Family Health Work Phone: [facility] Physician [facility] Work Phone: Start: 01-12-2024 End: 01-19-2024 Evaluation and management of inpatient Services Family [facility] Work Phone: [facility] [place] [address] Work Phone: Start: 01-12-2024 Non-patient / Non-visit Services [facility] Work Phone: [facility] Physician [facility] Work Phone: Start: 07-18-2023 End: 07-18-2023 ambulatory HAYDER MEI Facility:[facility] Start: 07-04-2023 End: 07-18-2023 Evaluation and management of inpatient SJ JOSHUA Facility:[facility] Start: 06-25-2023 End: 06-25-2023 ambulatory KATHI ZAMORA Facility:[facility] Start: 06-25-2023 End: 06-25-2023 ambulatory Kathi Zamora Work Phone: Nutrition Therapy Comment on above: Anorexia nervosa (Pr imary Dx); Dietary counseling Start: 06-25-2023 End: 06-25-2023 Telemedicine consultation with patient Kathi Zamora RD Work Phone: [facility] Start: 06-02-2023 End: 06-02-2023 ambulatory RESOURCE EFFICIENCY MANAGER-C Letty Torres Work Phone: [facility] Work Phone: Start: 06-02-2023 End: 06-02-2023 Patient encounter procedure RESOURCE EFFICIENCY MANAGER-C Letty Torres Work Phone: [facility] [place] Work Phone: Start: 03-25-2023 End: 03-25-2023 ambulatory RESOURCE EFFICIENCY MANAGER-C Letty Torres Work Phone: [facility] Work Phone: Start: 03-25-2023 End: 03-25-2023 Patient encounter procedure RESOURCE EFFICIENCY MANAGER-C Letty Torres Work Phone: [facility] Start: 03-21-2023 End: 03-21-2023 Emergency department patient visit RESOURCE EFFICIENCY MANAGER-Lissy Torres Work Phone: [facility] Work Phone: Start: 03-20-2023 End: 03-20-2023 ambulatory RESOURCE EFFICIENCY MANAGER-C Letty Torres Work Phone: [facility] Work Phone: Start: 03-20-2023 End: 03-20-2023 Patient encounter procedure RESOURCE EFFICIENCY MANAGER-C Letty Torres Work Phone: [facility] Start: 03-13-2023 End: 03-13-2023 Emergency department patient visit RESOURCE EFFICIENCY MANAGER-C Letty Torres Work Phone: [facility] Work Phone: Start: 03-11-2023 Registered Recurring RESOURCE EFFICIENCY MANAGER-C Osmin franco Brian Work Phone: [facility] Start: 03-11-2023 End: 03-11-2023 Emergency department patient visit RESOURCE EFFICIENCY MANAGER-C Letty Lewiser Work Phone: [facility]-Emergency Room Work Phone: Start: 01-22-2023 End: 01-23-2023 Emergency department patient visit RESOURCE EFFICIENCY MANAGER-C Letty Brian Work Phone: [facility]-Emergency Room Work Phone: Start: 11-14-2022 Telephone encounter Kay Ortiz RN Work Phone: General Surgery Comment on above: Appointment Start: 10-09-2022 End: 10-23-2022 Evaluation and management of inpatient Services [facility] Work Phone: [facility] [place] [address] Work Phone: Start: 07-24-2022 End: 07-24-2022 Emergency department patient visit Services [facility] Work Phone: [facility]-Emergency Room Work Phone: Start: 07-24-2022 End: 07-24-[address] DOCTOR ROMERO Facility:[facility] Start: 06-21-2022 Telephone encounter [facility] Provider Collin william Comment on above: Appointment Start: 05-13-2022 End: 05-13-2022 Emergency department patient visit [facility] ED Bed 15 Start: 02-24-2022 End: 02-24-2022 Emergency department patient visit Olive Long [facility] Adult ED Gold 13 Start: 02-06-2022 End: 02-06-2022 Emergency department patient visit Services [facility] Work Phone: [facility]-Emergency Room Start: 02-02-2022 End: 02-04-2022 Evaluation and management of inpatient DR DOCTOR ROMERO Facility:[facility] Start: 01-31-2022 ambulatory Provider Pending Facili ty:[id number] Start: 01-31-2022 End: 01-31-2022 Patient encounter procedure Services Family [facility] Work Phone: [facility]-Electrodiagnostics Start: 12-06-2021 End: 12-18-2021 Evaluation and management of inpatient Services [employer] Work Phone: [facility] Start: 11-27-2021 End: 11-27-2021 Patient encounter procedure Services [facility] Work Phone: [facility] [place] Start: 11-18-2021 End: 11-18-2021 Emergency department patient visit Services [employer] [facility] Work Phone: [facility]-Emergency Room Start: 11-15-2021 End: 11-15-2021 Patient encounter procedure Services [employer] Work Phone: [facility] [place] Start: 06-27-2021 Patient encounter status Services [facility] Work Phone: [facility] Procedures Date Procedure Procedure Detail Performing Clinician Start: 12-13-2024 Comprehensive metabo lic panel Faith Ferguson 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-CANE SPLICER Work Phone: Start: 12-13-2024 Lipid panel Faith liu 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-CANE SPLICER Work Phone: Start: 12-13-2024 Adult depression scr eening assessment Faith Ferguson 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-CANE SPLICER Work Phone: Start: 09-22-2024 Adult depression scr eening assessment Werner Foster 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-CN Work Phone: Start: 09-22-2024 Microscopic observat ion [Identifier] in Cervix by Cyto stain Werenr Foster 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-CN Work Phone: Start: 09-09-2024 Drug tst prsmv instr mnt chem analyzers pr date Breana Zhang PA-C Work Phone: Start: 09-09-2024 Urine test visual color cmprsn meths Breana Zhang PA-C Work Phone: Start: 09-09-2024 Ecg routine ecg w/le ast 12 lds w/i&r Breana [place]-C Work Phone: Start: 09-09-2024 Assay of acetaminophen Breana [place]-Lissy Work Phone: Start: 09-09-2024 Assay of ethanol Breana [place]-[employer]iss[employer] Work Phone: Start: 09-09-2024 Assay of salicylate Ankit elise [employer] Work Phone: Start: 09-09-2024 Comprehensive metabo lic panel Breana [place]-Lissy Work Phone: Start: 08-17-2024 Drug tst prsmv instr mnt chem analyzers pr date Rose Mckoy DO Work Phone: Start: 08-17-2024 Urinalysis microscop ic only Rose Mckoy DO Work Phone: Start: 08-17-2024 Urine test visual color cmprsn meths Rose Thompsonis DO Work Phone: Start: 08-17-2024 Basic metabolic pane l calcium total Rose Thompsonis DO Work Phone: Start: 08-17-2024 BASIC TO COMPREHENSI VE UPGRADE Rose Thompsonis DO Work Phone: Start: 07-13-2024 Assay of acetaminophen Rose Varsha Thompsonis DO Work Phone: Start: 07-13-2024 Assay of ethanol Jae yariel R Mckoy DO Work Phone: Start: 07-13-2024 Assay of salicylate Chr julissa Maddox Mckoy DO Work Phone: Start: 07-13-2024 Comprehensive metabo lic panel Rose Thompsonis DO Work Phone: Start: 07-13-2024 Drug tst prsmv instr mnt chem analyzers pr date Rose Thompsonis DO Work Phone: Start: 07-13-2024 Ecg routine ecg w/le ast 12 lds w/i&r Rose Maddox Mckoy DO Work Phone: Start: 06-15-2024 Drug tst prsmv instr mnt chem analyzers pr date Breana Zhang PA-C Work Phone: Start: 06-15-2024 Urinalysis microscop ic only Breana Zhang PA-Lissy Work Phone: Start: 06-15-2024 Urnls dip stick/tabl et rgnt auto w/o microscopy Breana Zhang PA-C Work Phone: Start: 06-15-2024 Assay of acetaminophen Breana Zhang PA-C Work Phone: Start: 06-15-2024 Assay of ethanol Breana Zhang PA-C Work Phone: Start: 06-15-2024 Assay of salicylate Ankit Zhang PA-C Work Phone: Start: 06-15-2024 Comprehensive metabo lic panel Breana [place] Work Phone: Start: 06-15-2024 Ecg routine ecg w/le ast 12 lds w/i&r Breana Zhang PA-C Work Phone: Start: 03-21-2023 Urine culture RESOURCE EFFICIENCY MANAGER-C Osmin franco Brian Work Phone: Start: 03-21-2023 Plain chest X-ray RESOURCE EFFICIENCY MANAGER-C [employer] Work Phone: Start: 01-23-2023 Computed tomography of abdomen and pelvis with contrast RESOURCE EFFICIENCY MANAGER-C [employer] Work Phone: Start: 10-14-2022 CT of abdomen and pe lvis without contrast MD Bogdan Barnes Work Phone: Start: 10-11-2022 US scan of gallbladder MD Bogdan Barnes Work Phone: Start: 10-09-2022 Urine culture MD Bogdan sahu Work Phone: Start: 07-24-2022 Plain chest X-ray [facility] Work Phone: Start: 05-13-2022 End: 05-13-2022 EKG impression Kary B Jose SARS Antigen (LFIA) [facility] Work Phone: Urine culture [facility] Work Phone: Plan of Treatment Date Care Activity Detail Author Start: 09-12-2031 DTaP,Tdap and Td Vac cines (8 - Td or Tdap) DTaP,Tdap and Td Vaccines (8 - Td or Tdap) [facility] Start: 09-12-2031 DTaP/Tdap/Td vaccine (8 - Td or Tdap) DTaP/Tdap/Td vaccine (8 - Td or Tdap) [facility] Start: 09-12-2031 Urine microalbumin profile DTa P,Tdap,Td Vaccine (8 - Td or Tdap) [facility] Start: 09-23-2027 Screening for malign ant neoplasm of cervix Pap Smear [facility] Start: 01-05-2026 Adult BMI Screening Adult BMI Screen ing [facility] Start: 01-05-2026 Tobacco Screening Tobacco Screening [facility] Start: 12-22-2025 Adult BMI Screening Adult BMI Screen ing [facility] Start: 12-22-2025 Tobacco Screening Tobacco Screening [facility] Start: 12-13-2025 Adult BMI Screening Adult BMI Screen ing [facility] Start: 12-13-2025 Depression Screening Depression Scre ening [facility] Start: 12-13-2025 Tobacco Screening Tobacco Screening [facility] Start: 09-22-2025 Adult BMI Follow Up Plan Adult BMI Follow Up Plan [facility] Start: 09-22-2025 Adult BMI Screening Adult BMI Screen ing [facility] Start: 09-22-2025 Depression Screening Depression Scre ening [facility] Start: 09-22-2025 Tobacco Screening Tobacco Screening [facility] Start: 03-16-2025 End: 03-16-2025 Patient encounter procedure 03/16/2025 1:40 PM EST Office Visit [facility] [address] [place] [phone] Faith Ferguson, 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-CANE SPLICER [address] [place] [address] [facility] Start: 01-25-2025 End: 01-25-2025 Patient encounter procedure 01/25/2025 11:45 AM EDT Office Visit [facility] General Surgery [address] [place] [phone] Latrice Buck, 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-CANE SPLICER [address] [place], [place] [phone] [facility] General Surgery Start: 01-11-2025 End: 01-11-2025 Admission to same day surgery center 01/11/2025 9:45 AM EDT - 01/11/2025 10:45 AM EDT Surgery [facility] [address] [place] [phone] Dell Morrison DO [address] [place] [address] EXCISION LIPOMA LOWER EXTREMITY [64662 (CPT )] [facility] Comment on above: EXCISION LIPOMA LOWE R EXTREMITY [77866 (CPT )] Start: 01-11-2025 End: 01-11-2025 Anesthesia consultation 01/11/2025 9:45 AM EDT Anesthesia Event [facility] [address] [place] [phone] Toribio Ko, DO [address] [place] [address] [facility] Start: 01-11-2025 End: 01-11-2025 Exc tumor soft tissue leg/ankle subfascial <5cm EXCISION LIPOMA LOWER EXTREMITY left lower leg lipoma 01/11/2025 9:45 AM EDT [facility] Start: 01-11-2025 Subsequent hospital visit by physician 01/11/2025 9:45 AM EDT Hospital Encounter [facility] [address] [place] [address] Dell Morrison, DO [address] [place], [place] [phone] [facility] - Surgery Start: 01-10-2025 Influenza vaccination Influenza Vacc ine [facility] Start: 01-04-2025 [facility] Start: 01-03-2025 End: 01-03-2025 Patient encounter procedure 01/03/2025 1:00 PM EDT Office Visit [facility] [place] [phone] Werner Foster, 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-[place] [id number] [facility], [address] [place] [address] [facility] Start: 12-31-2024 Hospital admission [facility] Start: 12-27-2024 End: 12-27-2024 Patient encounter procedure 12/27/2024 1:00 PM EDT Appointment [facility] - Ultrasound [address] [place] [phone] Dell Morrison, DO [facility] [place], [place] [id number] [facility] - Ultrasound Start: 12-22-2024 End: 12-22-2025 US Extremity - left limited Ultrasound extremity non vascular limited left Imaging Routine Lipoma of left lower extremity Expected: 12/22/2024, Expires: 12/22/2025 [facility] Work Phone: Comment on above: Expected: 12/22/2024 , Expires: 12/22/2025 Start: 12-10-2024 Influenza vaccination Flu vacc ine (Season Ended) [facility] Start: 10-13-2024 End: 10-13-2024 Patient encounter procedure 10/13/2024 2:00 PM EDT Office Visit [facility] [address] [place] [phone] Faith Ferguson, 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-CANE SPLICER [address], [address] [place] [address] [facility] Start: 09-20-2024 [facility] Start: 09-14-2024 Administration of prophylactic treatment [facility] Start: 09-09-2024 Referral to Distresser [facility] Start: 09-09-2024 Hospital admission [facility] Start: 09-09-2024 [facility] Start: 07-18-2024 [facility] Start: 07-14-2024 Hospital admission [facility] Start: 07-14-2024 [facility] Start: 06-18-2024 [facility] Start: 06-15-2024 Hospital admission [facility] Start: 06-15-2024 [facility] Start: 05-24-2024 [facility] Start: 05-16-2024 End: 05-16-2024 Referral to [facility] Start: 05-16-2024 Hospital admission [facility] Start: 01-19-2024 [facility] Start: 01-12-2024 Hospital admission [facility] Start: 01-11-2024 COVID-19 Vaccine ( season) COVID-19 Vaccine ( season) [facility] Start: 01-11-2024 COVID-19 Vaccine ( season) COVID-19 Vaccine ( season) [facility] Start: 12-11-2023 Influenza vaccination Flu vaccine (# 1) [facility] Start: 09-18-2023 [facility] Start: 05-12-2023 Depression Assessment Depression Ass essment [facility] Start: 01-10-2023 Covid-19 Vaccine ( season) Covid-19 Vaccine ( season) [facility] Start: 01-10-2023 Influenza vaccination [facility] Start: 10-23-2022 [facility] Start: 10-12-2022 Referral to vocal performer [facility] Start: 10-09-2022 Hospital admission [facility] Start: 10-09-2022 [facility] Start: 10-09-2022 Bacteria identified in Urine by Culture [facility] Start: 2022 HPV TESTING HPV TESTING [facility] Start: 2022 Screening for malign ant neoplasm of cervix [facility] Start: 05-12-2022 DEPRESSION ASSESSMENT DEPRESSION ASS ESSMENT [facility] Start: 02-24-2022 End: 02-25-2023 hydrOXYzine Hydrochloride (ATARAX) 25 mg Oral Tablet Every 6 Hours PRN ; TabletDOSE = 25 mg Oral Once Start: 24-Feb-2022 End: 24-Feb-2023 Ordered: 24-Feb-2022 Sophie Kennedy [facility] Start: 01-10-2022 Influenza vaccination INFLUENZA (#1) [facility] Start: 12-18-2021 [facility] Work Phone: Start: 12-10-2021 Referral to clinical coyote hunter [facility] Work Phone: Start: 12-06-2021 Referral to Distresser [facility] Work Phone: Start: 12-06-2021 Hospital admission [facility] Work Phone: Start: 04-18-2021 COVID-19 VACCINE (4 - Booster for Moderna series) COVID-19 VACCINE (4 - Booster for Moderna series) [facility] Start: 01-02-2021 COVID-19 VACCINE (3 - Booster for Moderna series) COVID-19 VACCINE (3 - Booster for Moderna series) [facility] Start: 2013 PAP TESTING PAP TESTING [facility] Start: 2013 Screening for malign ant neoplasm of cervix [facility] Start: 09-28-2011 Hepatitis B vaccine (1 of 3 - 19+ 3-dose series) Hepatitis B vaccine (1 of 3 - 19+ 3-dose series) [facility] Start: 09-28-2011 Urine microalbumin profile DTA P,TDAP,TD (1 - Tdap) [facility] Start: 2010 Adult BMI Follow Up Plan Adult BMI Follow Up Plan [facility] [employer] [facility] Start: 2010 HEPATITIS C SCREENING HEPATITIS C SC JOSELUIS [facility] Start: 2010 Hepatitis C screening [facility] Start: 2010 HIV SCREENING HIV SCREENING [facility] Start: 2010 HIV screening HIV Screening [facility] Start: 09-28-2007 HIV screening HIV screen [facility] Start: 2004 Depression Monitoring Depression Mon itoring [facility] Start: 1992 HEPATITIS B (1 of 3 - 3-dose series) HEPATITIS B (1 of 3 - 3-dose series) [facility] Start: 1992 Hepatitis B Vaccine (1 of 3 - 3-dose series) Hepatitis B Vaccine (1 of 3 - 3-dose series) [facility] Calculated LDL chino sterol level [facility] Cholesterol.total/Ch olester ol in HDL [Mass Ratio] in Serum or Plasma [facility] EKG 12 Lead EKG 12 Lead ECG STAT 06/15/2024 1:[address] [facility] EKG 12 Lead EKG 12 Lead ECG STAT 09/09/2024 12:[address] [facility] Patient Education [facility] Work Phone: Patient referral [facility] Work Phone: End: 06-15-2024 , Urine , Urine Lab STAT One Time for 1 Occurrences starting 06/15/2024 until 06/15/2024 [facility] Comment on above: One Time for 1 Occur rences starting 06/15/2024 until 06/15/2024 End: 07-13-2024 SPECIMEN REJECTION [facility] Comment on above: Once for 1 Occurrenc es starting 07/13/2024 until 07/13/2024 Thin Prep Pap Test Thin Prep Pap Test Pathology and Cytology Routine Cervical smear, as part of routine gynecological examination 09/22/2024 3:44 PM EDT [employer] Work Phone: End: 12-22-2025 Unlisted Procedure / Surgery Unlisted Procedure / Surgery Procedures Routine Lipoma of left lower extremity 1 Occurrences starting 12/22/2024 until 12/22/2025 [employer] Comment on above: 1 Occurrences starti ng 12/22/2024 until 12/22/2025 VLDL cholesterol measurement [facility] Immunizations Immunization Date Immunization Notes Care Provider Deny altman 09-11-2021 tetanus toxoid, redu siddhartha diphtheria toxoid, and acellular pertussis vaccine, adsorbed Services [facility] Work Phone: [facility] 02-21-2021 COVID-19, MODERNA BL UE border, Primary or Immunocompromised, (age 12y+), IM, 100 mcg/0.5mL Letty Brian 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CANE SPLICER Work Phone: [facility] [employer] 11-07-2020 COVID-19, MODERNA BL UE border, Primary or Immunocompromised, (age 12y+), IM, 100 mcg/0.5mL [employer] Brian 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CANE SPLICER Work Phone: [facility] 10-10-2020 COVID-19, MODERNA BL UE border, Primary or Immunocompromised, (age 12y+), IM, 100 mcg/0.5mL [employer] Brian 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CANE SPLICER Work Phone: [facility] [employer] 06-22-2020 tetanus toxoid, redu siddhartha diphtheria toxoid, and acellular pertussis vaccine, adsorbed [employer] Brian 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CANE SPLICER Work Phone: [facility] 01-11-2020 tuberculin skin test ; purified protein derivative solution, intradermal [employer] Work Phone: 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[facility] Work Phone: [facility] 01-15-1995 diphtheria, tetanus toxoids and acellular pertussis vaccine, unspecified formulation [facility] 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[facility] Work Phone: [facility] 05-28-1994 trivalent poliovirus vaccine, live, oral [facility] Work Phone: [facility] 12-27-1993 diphtheria, tetanus toxoids and pertussis vaccine Letty Brian 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[facility] Work Phone: [facility] 12-27-1993 haemophilus influenz ae type b vaccine, conjugate unspecified formulation [facility] 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[facility] 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 Phone: [facility] 12-27-1993 measles, mumps and rubella virus vaccine Letty Brian 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[facility] Work Phone: [facility] 12-27-1993 trivalent poliovirus vaccine, live, oral [facility] Work Phone: [facility] 08-09-1993 diphtheria, tetanus toxoids and pertussis vaccine [facility] 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[facility] Work Phone: [facility] 08-09-1993 haemophilus influenz ae type b vaccine, conjugate unspecified formulation [facility] Work Phone: [facility] 08-09-1993 trivalent poliovirus vaccine, live, oral [facility] Work Phone: [facility] 1992 diphtheria, tetanus toxoids and pertussis vaccine Letty Brian 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[facility] Work Phone: [facility] 1992 haemophilus influenz ae type b vaccine, conjugate unspecified formulation [facility] Work Phone: [facility] Payers Date Payer Category Payer Medicaid HMO [employer] [id number] 2024 Self-pay [id number] 2022 Medicaid [id number] 1992 Unknown [id number]. 356 1992 Unknown [id number] [id number]. 356 1992 Unknown [id number] 2.16.840.1.424781.3.579.2. 356 1992 Unknown [id number] 2.16.840.1.491953.3.579.2. 593 1992 Unknown [id number] 2.16.840.1.212905.3.579.2. 593 1992 Unknown [id number] 2.16.840.1.311596.3.579.2. 173 1992 Unknown [id number] 2.16.840.1.854506.3.579.2. 173 1992 Unknown [id number] 2.16.840.1.582432.3.579.2. 173 1992 Unknown [id number] 2.16.840.1.746071.3.579.2. 173 1992 Unknown [id number] 2.16.840.1.343476.3.579.2. 128 1992 Unknown [id number] 2.16.840.1.830498.3.579.2. 1285 1992 Unknown [id number] 2.16840.1.824350.3.579.2. 1285 1992 Unknown [id number] 2.16.840.1.080740.3.579.2. 1285 1992 Unknown [id number] 2.16840.1.947652.3.579.2. 1285 1992 Unknown [id number] 2.16.840.1.497509.3.579.2. 1285 1992 Unknown [id number] 2.16.840.1.151404.3.579.2. 1286 1959 Medicaid [id number] 1957 Medicaid [id number] Private Health Insurance [facility] [id number] Unknown [employer] Unknown [id number]. 531 Social History Date Type Detail Facility Start: 12-10-2021 End: 09-10-2024 Tobacco smoking status WYIS Smoker (finding) [facility] Start: 1990 Sex Assigned At Female F [facility] Tobacco smoking consumption unknown [facility] Start: 1990 Sex Assigned At Not on file [facility] Start: 09-17-2022 End: 03-11-2023 Tobacco smoking status WYIS Never smoked tobacco (finding) [facility] Start: 06-22-2020 End: 06-25-2023 History of Social function [facility] Start: 06-22-2020 End: 06-25-2023 Area Deprivation Index [facility] National Score (1-10 0), lower number is lower risk 63 [facility] Start: 12-15-2014 End: 04-01-2024 Sex Female (finding) [facility] Start: 05-17-2024 [facility] Start: 09-17-2022 End: 09-22-2024 Tobacco use and exposure Smokeless tobacco non-user [facility] Start: 06-15-2024 End: 09-09-2024 Alcoholic beverage intake Ex-drinker (finding) [facility] How often to you hav e a drink containing alcohol? Never [facility] (I/We) worried edwin (my/our) food would run out before (I/we) got money to buy more. Never true [facility] Start: 07-15-2024 Tobacco smoking stat [facility] Current Light tobacco smoker [facility] Start: 09-22-2024 Tobacco smoking stat [facility] Ex-smoker [facility] [facility] Start: 05-12-2024 End: 05-12-2019 History of tobacco use Cigarette Smoker [facility] Start: 09-22-2024 End: 01-05-2025 Alcoholic beverage intake Current non-drinker of alcohol (finding) [facility] Start: 01-01-2025 [facility] Sm[facility] daily (finding) [facility] Goals Date Patient Goal Desired Activity /State Functional Status Date Assessment Result Facility 09-20-2024 Functional status Patient at Baseline [facility] Work Phone: 07-18-2024 Functional status Patient at Baseline [facility] Work Phone: 06-18-2024 Functional status Patient at Baseline [facility] Work Phone: 05-24-2024 Functional status Patient at Baseline [facility] Work Phone: 01-19-2024 Functional status Patient at Baseline [facility] Work Phone: 10-23-2022 Functional status Patient at Baseline [facility] Work Phone: 12-18-2021 Functional status Patient at Baseline [facility] Work Phone: [facility] Mental Status Date Assessment Result Facility 09-20-2024 Cognitive function Cognitive Sta tus Patient at Baseline [facility] Work Phone: 07-18-2024 Cognitive function Cognitive Sta tus Patient at Baseline [facility] Work Phone: 06-18-2024 Cognitive function Cognitive Sta tus Patient at Baseline [facility] Work Phone: 05-24-2024 Cognitive function Cognitive Sta tus Patient at Baseline [facility] Work Phone: 01-19-2024 Cognitive function Cognitive Sta tus Patient at Baseline [facility] Work Phone: 10-23-2022 Cognitive function Cognitive Sta tus Patient at Baseline [facility] Work Phone: 12-18-2021 Cognitive function Cognitive Sta tus Patient at Baseline [facility] Work Phone: Clinical Notes 06-21-2022 to 01-05-2025 Patient Instructions Note Date & Type Note Facility 01-05-2025 Instructions Elizabeth Brandt RN - 01/05/2025 2:15 PM EDT Preoperative Education Checklist- General Surgery date: 01/11/25 Surgery time: 945a Arrival time: 745a 1. Bring a photo ID and your insurance card with you the day of surgery. You will check in at the main lobby of the [facility]- registration desk is straight ahead as soon as you walk in. Tell them you are here for surgery. 2. If you have a Living Will/Durable Power of Credit Risk Review Officer for Health Care that is not on file here, please bring a copy the day of surgery. 3. Please shower/bathe the night before surgery with the provided soap or wipes. Do not shower the morning of surgery- you will do use wipes when you arrive here at the hospital before getting into your surgical gown. Do not shave the area of your procedure for 2 days prior to your surgery. 4. NO powder, lotion, perfume/cologne, aftershave, make-up, deodorant, or hair products after you have bathed. 5. NO nail cayman islander/acrylic on at least one finger. If you are having a hand, wrist or foot surgery then all nail cayman islander and artificial/acrylic nails must be removed from that hand or foot. 6. Avoid ALL Aspirin and non-steroidal anti-inflammatory drugs and certain vitamins (Ibuprofen, Advil, Aleve, Excedrin, Meloxicam, Celebrex, fish/krill oil, etc.) for 7 days prior to surgery as instructed by your surgeon and/or your prescribing doctor. Tylenol IS ALLOWED. If you are on Ticlid, Xarelto, Eliquis, Pradaxa, Plavix or Coumadin, please check with your prescribing doctor for instructions for when to stop them. 7. If you use an inhaler, continue to use it routinely. 8. Nothing to eat or drink (not even water, gum, mints, or hard candy!) AFTER midnight prior to your surgery. 9. Take only medications that you are instructed to on the morning of surgery with a TINY SIP OF WATER. 10. Choose a responsible adult that will be able to drive you home when you are discharged from your hospital stay for your surgery and can stay with you in your home for 24 hours after your procedure. You must NOT drive any vehicle or operate any machinery for 24 hours after surgery. 11. When you dress for your appointment, please wear loose fitting clothing that is appropriate to accommodate your surgical area procedure. BRING WITH YOU ANY DEVICES YOU MAY NEED: KITTY hose, ice machine, sling/swath, brace or special shoe, oversized zip-up or button up shirt, CPAP machine if staying overnight. 12. Do NOT wear jewelry, watches, or any piercings or metal for surgery- leave these valuables and money at home. 13. Do NOT wear contact lenses for surgery- glasses are okay if needed. 14. The anesthesiologist will talk with you the day of surgery and will ask you to sign a Consent Form. 15. Refrain from smoking or any type of tobacco use for at least 8 hours and marijuana for 24 hours prior to arrival for your surgery. 16. Notify your surgeon if you develop any illness before your surgery. 17. If you are staying overnight, please DO NOT BRING your home medications with you. 18. If you have any questions prior to surgery, please call the Preadmission Testing office at [phone], Mon.-Fri. 7 a.m.-3 p.m. Leave a voicemail if needed. Pre-Surgery Instructions: Medication Instructions lamoTRIgine (LaMICtal) 25 mg tablet Continue as prescribed, DO NOT take morning of procedure melatonin 10 mg tablet Continue as prescribed, DO NOT take morning of procedure prazosin (MINIPRESS) 2 mg capsule Continue as prescribed, DO NOT take morning of procedure traZODone (DESYREL) 150 mg tablet Continue as prescribed, DO NOT take morning of procedure albuterol (PROVENTIL HFA;VENTOLIN HFA) 90 mcg/actuation inhaler Take morning of procedure, as needed albuterol (PROVENTIL,VENTOLIN) 2.5 mg /3 mL (0.083 %) nebulizer solution Take dose day before procedure, as needed busPIRone (BUSPAR) 10 mg tablet Continue as prescribed, DO NOT take morning of procedure desvenlafaxine (PRISTIQ) 100 mg 24 hr tablet Continue as prescribed, DO NOT take morning of procedure fluticasone propion-salmeteroL (ADVAIR HFA) 45-21 mcg/actuation inhaler Continue as prescribed, take morning of procedure How to Avoid an Infection after Your Surgery Your doctor will give you specific instructions, but remember: -ALWAYS wash hands before caring for your incision. -No picking, scratching, or rubbing your incision. -No creams, lotion, powder, rubbing alcohol or hydrogen peroxide on the incision (can harm the tissue and slow healing). -Your doctor will give you specific instructions for what type of dressing you will need and how often it will need changed for infection purposes. -No tight clothing on incision. -Do not allow anyone to touch your incision unless they are cleaning, checking, or redressing it (be sure they wash their hands first). -No contact of your incision with pets; avoid sleeping with pets. -Take full course of antibiotic if prescribed for you after surgery- do not stop unless directed to by your physician. You may also be given an antibiotic prior to your surgery to help prevent surgical site infections. -Eat a healthy and varied diet including proteins, fruits, and vegetables to help promote wound healing and keep blood sugars under control if you are diabetic. -Smoking slows the healing process by decreasing the amount of oxygen in your blood that is needed for tissue healing. Try to avoid or stop smoking if possible. LOOK at your incision each morning and each night to check the progress of healing. Some soreness, numbness, itching and/or mild bruising around the incision is normal. Call your doctor if you notice any of the following: -Increased redness or hardening around the incision area. -Increased pain at the incision site. -Incision feels hot to the touch. -Swelling or pulling apart of the incision edges. -Yellow or green drainage or foul odor coming from the incision. -Bleeding from the incision (apply pressure as needed). -Fever higher than 101 degrees Fahrenheit for more than 4 hours. SHOWERING: Your doctor will give you specific instructions, but remember: -Be careful getting into and out of the shower. -Showers should be quick (5 minutes or less). -Use a clean washcloth to gently wash your incision with soap and water and pat the area dry with a clean towel. -No re-using wash cloths or towels; get a fresh one to clean your incision. -Do not soak in the bathtub, go swimming or use a hot tub (Jacuzzi), or perform activities where your incision is submerged in water or exposed to any fluids or substances until instructed by your doctor. -If your have the sticky strips (steri-strips) over the incision, it is OK to shower with them. Do not remove them. Let them fall off on their own. If you have a question, call your doctor s office. Go to the follow-up appointment with your doctor. documented in this encounter [facility] 01-04-2025 Hospital Discharge instructions Additional Instructions Important Contact Information You can call [facility] at [phone] any time day or night if you have emergent questions or question regarding discharge instructions. If at any time you are feeling an increase in your psychiatric symptoms, call your physician or behavioral healthcare provider. If any time you have thoughts of harming yourself or others contact one of the following: Call (available 02/12) Crisis Text Line (available 02/12) text 4HOPE to [phone] [facility] Hope Line (available 8 a.m. Midnight) call [phone] ([phone]) Regular Diet No Activity Restrictions [facility] Work Phone: 12-31-2024 Evaluation note Diagnosis Onset Date Resolution Bipolar affect, depressed acute December 31 9:37pm Borderline personality disorder acute December 31 9:37pm Generalized anxiety disorder acute December 31 9:37pm [facility] Work Phone: [phone] 902-564608-13-2025 History of Present illness Narrative* Dell Morrison, - 12/22/2024 10:30 AM EDT Images from the original note were not included. [facility] [address] [id number] CONSULT NOTE CHIEF COMPLAINT Chief Complaint Patient presents with Suspicious Skin Lesion Lipoma of left lower extremity, referred by Faith Ferguson, DARWIN Gotti Jocelyn Willingham is a 34 y.o. female presents with a lump in the left lower leg which has been present since 2013. She had an x-ray done at the [facility] 5 years ago for which he was told itwas a lipoma. Is bothersome and has gotten larger in her mother wants her to have it removed. She has a history of asthma. She works in [employer] at [employer]. MEDICATION Current Outpatient Medications: albuterol (PROVENTIL HFA;VENTOLIN HFA) 90 mcg/actuation inhaler, Inhale 2 puffs every 6 (six) hoursas needed for wheezing., Disp: 18 g, Rfl: 4 albuterol (PROVENTIL,VENTOLIN) 2.5 mg /3 mL (0.083 %) nebulizer solution, Inhale 3 mL (2.5 mg total) by nebulization every 6 (six) hours as needed for wheezing., Disp: 75 mL, Rfl: 1 busPIRone (BUSPAR) 10 mg tablet, 1 tablet (10 mg total)., Disp: , Rfl: desvenlafaxine (PRISTIQ) 100 mg 24 hr tablet, Take 1 tablet (100 mg total) by mouth., Disp: , Rfl: fluticasone propion-salmeteroL (ADVAIR HFA) 45-21 mcg/actuation inhaler, Inhale 2 puffs in the morning and 2 puffs before bedtime., Disp: 12 g, Rfl: 11 lurasidone (LATUDA) 40 mg tablet, Take 20 mg by mouth., Disp: , Rfl: melatonin (CIRCADIN) 5 mg tablet, Take 1 tablet (5 mg total) by mouth nightly as needed., Disp: , Rfl: prazosin (MINIPRESS) 1 mg capsule, , Disp: , Rfl: traZODone (DESYREL) 100 mg tablet, , Disp: , Rfl: ALLERGY Allergies Allergen Reactions Penicillins Hives Compazine [Prochlorperazine] Anxiety MEDICAL HISTORY Past Medical History: Diagnosis Date Allergic Anorexia nervosa [place] [place] Anxiety Asthma Back pain Bipolar 1 disorder, depressed ([facility] [place] 07/04/2017 Bipolar disorder ([facility] [place]) Borderline personality disorder ([facility] [place] 07/07/2017 Depression Dysautonomia ([facility] [place] Eating disorder GERD (gastroesophageal reflux disease) Hypertension Intentional drug overdose ([facility] [place]) 05/31/2017 Postural orthostatic tachycardia syndrome POTS (postural orthostatic tachycardia syndrome) PTSD (post-traumatic stress disorder) PTSD (post-traumatic stress disorder) 07/07/2017 Seizures ([facility] [place] Suicidal behavior 07/04/2017 Urinary tract infection SURGICAL HISTORY Past Surgical History: Procedure Laterality Date CRICOID SPLIT GASTROSTOMY TUBE PLACEMENT as infant, removed SOCIAL HISTORY Social History Socioeconomic History Marital status: Single Spouse name: Not on file Number of children: Not on file Years of education: Not on file Highest education level: Not on file Occupational History Not on file Tobacco Use Smoking status: Former Current packs/day: 3.00 Average packs/day: 3.0 packs/day for 0.6 years (1.8 ttl pk-yrs) Types: Cigarettes Start date: 2024 Quit date: 2019 Smokeless tobacco: Never Vaping Use Vaping status: Every Day Last attempt to quit: 09/22/2024 Substances: Nicotine, THC, Flavoring Devices: Disposable Substance and Sexual Activity Alcohol use: No Drug use: Yes Frequency: 7.0 times per week Types: Marijuana Sexual activity: Not Currently Partners: Male Other Topics Concern Not on file Social History Narrative Not on file Social Drivers of Health Financial Resource Strain: Low Risk (07/07/2023) Received from [facility] Overall Financial Resource Strain (CARDIA) Difficulty of Paying Living Expenses: Not very hard Food Insecurity: No Food Insecurity (12/22/2024) Hunger Screening Food Insecurity - Worry: Never True Food Insecurity - Inability: Never True Transportation Needs: No Transportation Needs (07/07/2023) Received from [facility] PRAPARE - Transportation Lack of Transportation (Medical): No Lack of Transportation (Non-Medical): No Physical Activity: Not on file Stress: Not on file Social Connections: Not on file Interpersonal Safety: Not on file Housing Instability: Low Risk (07/07/2023) Received from [facility] Housing Stability Vital Sign Unable to Pay for Housing in the Last Year: No Number of Places Lived in the Last Year: 1 Unstable Housing in the Last Year: No FAMILY HISTORY Family History Problem Relation Age of Onset Asthma Mother No Known Problems Father Breast cancer Maternal Aunt Breast cancer Maternal great-grandmother Colon cancer Neg Hx Uterine cancer Neg Hx Ovarian cancer Neg Hx Pancreatic cancer Neg Hx Prostate cancer Neg Hx REVIEW OF SYSTEMS: Constitutional: Denies fevers, denies recent illnesses. Eyes: Denies any vision changes. ENT: Denies any throat pain. Neck: Denies any neck pain. Cardiovascular denies chest pain. Denies palpitations. Respiratory: Denies shortness of breath, denies cough, denies history of asthma or any other pulmonary illnesses. Gastrointestinal: Negative for abdominal pain, nausea, melena, hematochezia, weight loss, change inbowel habits or weight loss or emesis. Genitourinary negative for dysuria hematuria urinary frequency or urgency. Musculoskeletal: As above; Negative for extremity pains or joint discomfort. Neurologic: No change in sensation or paresthesias or history of seizure disorder skin: No rashes. Hematologic: No anemia. No purpura. No petechiae and no prolonged or excessive bleeding Allergic and immunologic: No pruritus. No swelling. Endocrine: No unexplained weight loss. No polydipsia. No polyuria. No polyphagia. PHYSICAL EXAM Constitutional: She is oriented to person, place, and time. Vital signs are normal. She appears well-developed and well-nourished. HEENT: Head: Normocephalic and atraumatic. Eyes: Conjunctivae, EOM and lids are normal. Neck: Trachea normal. Neck supple. No thyroid mass present. Cardiovascular: Normal rate and regular rhythm. Pulmonary/Chest: Effort normal and breath sounds normal. Abdominal: Soft. Normal appearance. She exhibits no distension and no mass. There is no hepatosplenomegaly or splenomegaly. There is negative Garza's sign. No hernia. Musculoskeletal: Normal range of motion. Left lower extremity she has a bulging lump a proximally 5cm in diameter protruding from the left anterior leg. It is soft. Lymphadenopathy: She has no cervical adenopathy. She has no axillary adenopathy. Right: No inguinal and no supraclavicular adenopathy present. Left: No inguinal and no supraclavicular adenopathy present. Neurological: She is alert and oriented to person, place, and time. Skin: Skin is warm, dry and intact. Psychiatric: She has a normal mood and affect. Her speech is normal and behavior is normal. Cognition and memory are normal. IMPRESSION 1. Lipoma left lower extremity 5 cm versus other etiology inclusion cyst 2. History of PTSD, bipolar disorder ASSESSMENT & PLAN 1. Ultrasound left lower extremity as long as ultrasound does not show anything highly abnormal would recommend excision under anesthesia. Risks benefits alternatives to excision of lipoma left lowerextremity may include infection, bleeding, scarring, nerve injury, she understood all the above andwished to proceed. Evaluation included: Preparing to see the patient (e.g., review of tests) Obtaining and/or reviewing separately obtained history Performing a medically appropriate examination and/or evaluation Counseling and educating the patient/family/caregiver Referring and communicating with other health home care consultant - Dell Morrison DO 12/22/24 11:09 AM This note was created with the assistance of a speech recognition program. While intending to generate a timely document that accurately reflects the content of the visit, no guarantee can be provided that every grammatical or spelling mistake has been or will be identified or corrected. Thank you for your understanding. documented in this encounterWilson Health08-04-[facility]25 History of Present illness Narrative* Faith Mcfarlane Phyllis, 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 - 12/13/2024 2:00 PM EDT Subjective CC: New patient Patient ID: Roshan Willingham is a 34 y.o. female. HPI Roshan presents to [facility]. She has a strong psychiatric history and follows with multiple individuals at [facility]. Relates seeing a counselor weekly, medication appointments every four weeks, and another provider every other week. She relates having asthma as an , and has been without her inhalers for several months. Wheezing worse in the morning; also has dry cough. She relates toseveral hospitalizations in the past year, due to asthma. She has a nebulizer at home, but no solution. Was using Symbicort, although insurance is requesting Dulera or Advair. She is fine with that. Also relates a lipoma since 2013 on her left lower leg, states at times it seems to get bigger, but is not painful. She would like to have this removed. Follows regularly with gynecology. [facility] has an upcoming appointment with them on January 03. Additionally, relates her blood sugars seem high, and has ketones in her urine when goes to the ED. Relates a family history of diabetes in her grandfather and uncle. Also notes polydipsia and polyuria. The following portions of the patient's history were reviewed and updated as appropriate: allergies, current medications, past family history, past medical history, past social history, past surgicalhistory, problem list, and medication reconciliation was completed including current medication andpost discharge medication. Review of Systems Constitutional: Positive for unexpected weight change. HENT: Negative. Eyes: Negative. Respiratory: Positive for cough and wheezing. Negative for shortness of breath. Cardiovascular: Positive for leg swelling. Feet swelling Gastrointestinal: Negative. Endocrine: Positive for polydipsia and polyuria. Musculoskeletal: Negative. Skin: Negative. Neurological: Negative. Hematological: Negative. Psychiatric/Behavioral: Negative. Negative for sleep disturbance. Objective Physical Exam Vitals and nursing note reviewed. Constitutional: Appearance: Normal appearance. She is well-developed. Comments: BMI: 35.11 HENT: Head: Normocephalic and atraumatic. Right Ear: Hearing, tympanic membrane, ear canal and external ear normal. Left Ear: Hearing, tympanic membrane, ear canal and external ear normal. Nose: Rhinorrhea present. Mouth/Throat: Lips: [place]. Mouth: Mucous membranes are moist. Pharynx: Oropharynx is clear. Uvula midline. No oropharyngeal exudate. Eyes: General: Lids are normal. Extraocular Movements: Extraocular movements intact. Conjunctiva/sclera: Conjunctivae normal. Pupils: Pupils are equal, round, and reactive to light. Cardiovascular: Rate and Rhythm: Normal rate and regular rhythm. Pulses: Normal pulses. Heart sounds: Normal heart sounds. Pulmonary: Effort: Pulmonary effort is normal. Breath sounds: Normal breath sounds and air entry. Abdominal: General: Bowel sounds are normal. There is no distension. Palpations: Abdomen is soft. Tenderness: There is no abdominal tenderness. Musculoskeletal: General: Normal range of motion. Cervical back: Normal range of motion and neck supple. Lymphadenopathy: Cervical: No cervical adenopathy. Skin: General: Skin is warm and dry. Comments: Lipoma left lower leg Neurological: General: No focal deficit present. Mental Status: She is alert and oriented to person, place, and time. Psychiatric: Mood and Affect: Mood normal. Behavior: Behavior normal. Assessment/Plan Lungs clear at this time. Will start back on Advair HFA and albuterol HFA and solution for nebulizer. Will have follow up in 4 months for respiratory assessment. Willing to have labs completed today,has been fasting. Ambulatory referral to general surgery (lipoma) CBC, CMP, Lipid/thyroid profile, Vitamin B 12 and Vitamin D drawn in office today HGBA1C Advair HFA 2 puffs in am and pm Ventolin HFA prn wheezing Ventolin solution per nebulizer every 4-6 hours prn shortness of breath or wheezing Follow up in 4 months for respiratory assessment Roshan was seen today for establish care. Diagnoses and all orders for this visit: Lipoma of left lower extremity - Ambulatory referral to General Surgery; Future Moderate asthma without complication, unspecified whether persistent - CBC auto differential - Comprehensive metabolic panel - Lipid profile - Thyroid profile includes TSH FT4 - Vitamin B12 - Vitamin D 25 hydroxy - albuterol (PROVENTIL,VENTOLIN) 2.5 mg /3 mL (0.083 %) nebulizer solution; Inhale 3 mL (2.5 mg total) by nebulization every 6 (six) hours as needed for wheezing. - fluticasone propion-salmeteroL (ADVAIR HFA) 45-21 mcg/actuation inhaler; Inhale 2 puffs in the morning and 2 puffs before bedtime. - albuterol (PROVENTIL HFA;VENTOLIN HFA) 90 mcg/actuation inhaler; Inhale 2 puffs every 6 (six) hours as needed for wheezing. - Hemoglobin A1c Hx of major depression - CBC auto differential - Comprehensive metabolic panel - Lipid profile - Thyroid profile includes TSH FT4 - Vitamin B12 - Vitamin D 25 hydroxy - albuterol (PROVENTIL,VENTOLIN) 2.5 mg /3 mL (0.083 %) nebulizer solution; Inhale 3 mL (2.5 mg total) by nebulization every 6 (six) hours as needed for wheezing. - fluticasone propion-salmeteroL (ADVAIR HFA) 45-21 mcg/actuation inhaler; Inhale 2 puffs in the morning and 2 puffs before bedtime. - albuterol (PROVENTIL HFA;VENTOLIN HFA) 90 mcg/actuation inhaler; Inhale 2 puffs every 6 (six) hours as needed for wheezing. - Hemoglobin A1c Hx of anorexia nervosa - CBC auto differential - Comprehensive metabolic panel - Lipid profile - Thyroid profile includes TSH FT4 - Vitamin B12 - Vitamin D 25 hydroxy - albuterol (PROVENTIL,VENTOLIN) 2.5 mg /3 mL (0.083 %) nebulizer solution; Inhale 3 mL (2.5 mg total) by nebulization every 6 (six) hours as needed for wheezing. - fluticasone propion-salmeteroL (ADVAIR HFA) 45-21 mcg/actuation inhaler; Inhale 2 puffs in the morning and 2 puffs before bedtime. - albuterol (PROVENTIL HFA;VENTOLIN HFA) 90 mcg/actuation inhaler; Inhale 2 puffs every 6 (six) hours as needed for wheezing. - Hemoglobin A1c Anxiety - CBC auto differential - Comprehensive metabolic panel - Lipid profile - Thyroid profile includes TSH FT4 - Vitamin B12 - Vitamin D 25 hydroxy - albuterol (PROVENTIL,VENTOLIN) 2.5 mg /3 mL (0.083 %) nebulizer solution; Inhale 3 mL (2.5 mg total) by nebulization every 6 (six) hours as needed for wheezing. - fluticasone propion-salmeteroL (ADVAIR HFA) 45-21 mcg/actuation inhaler; Inhale 2 puffs in the morning and 2 puffs before bedtime. - albuterol (PROVENTIL HFA;VENTOLIN HFA) 90 mcg/actuation inhaler; Inhale 2 puffs every 6 (six) hours as needed for wheezing. - Hemoglobin A1c Pott's disease - CBC auto differential - Comprehensive metabolic panel - Lipid profile - Thyroid profile includes TSH FT4 - Vitamin B12 - Vitamin D 25 hydroxy - albuterol (PROVENTIL,VENTOLIN) 2.5 mg /3 mL (0.083 %) nebulizer solution; Inhale 3 mL (2.5 mg total) by nebulization every 6 (six) hours as needed for wheezing. - fluticasone propion-salmeteroL (ADVAIR HFA) 45-21 mcg/actuation inhaler; Inhale 2 puffs in the morning and 2 puffs before bedtime. - albuterol (PROVENTIL HFA;VENTOLIN HFA) 90 mcg/actuation inhaler; Inhale 2 puffs every 6 (six) hours as needed for wheezing. - Hemoglobin A1c Abnormal glucose - Hemoglobin A1c Screening for lipid disorders - Lipid profile High cholesterol - Lipid profile BRIDGETTE Graves 12/13/24 [id number] * Rosita Bay CMA - 12/13/2024 2:00 PM EDT Venipuncture performed in the right arm. Patient had no adverse reactions. documented in this encounterWilson Health05-14-2025 History of Present illness Narrative* SUSHMA Alvarado - 09/22/2024 2:00 PM EDT Annual Well Woman Visit 09/22/2024 Raven Willingham is a pleasant 33 y.o. 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 Periods are regular every 28-30 days, lasting 1 days. Dysmenorrhea: none. Cyclic symptoms include severe depression. no intermenstrual bleeding, spotting, or abnormal discharge. no pelvic pain. Patient declined STD testingtoday. Pt. States she has never been sexually active. She does not use sex toys. She relates she was recently hospitalized at [facility] for a mental health crisis. Pt. States she is not able to use depo provera as it caused severe depression for her in the past. Complaints today: none Relationship status: not in a relationship The patient reports that there is not domestic violence in her life. Sexually active: No Sexual concerns: n/a Patient works: unemployed [employer] X 4 years IF Yes , motivated to quit YES Children NO Current contraception: abstinence History of abnormal Pap smear: no Last pap: 2012- Negative Regular self breast exam: yes Last mammogram: n/a Family history of breast cancer: yes - Maternal great grandmother, Maternal Aunt Family history of uterine or ovarian cancer: no Family history of pancreatic or prostate cancer: no Family history of colon cancer: no HPV vaccinated: no Flu shot this flu season: yes PHQ9 depression screenin w/negative self harm component LMP 09/14/2024 OB History 0 Para 0 Term 0 0 AB 0 Living 0 SAB 0 IAB 0 Ectopic 0 Multiple 0 Live Births 0 The following portions of the patient's history were reviewed and updated as appropriate: allergies, current medications, past family history, past medical history, past social history, past surgicalhistory and problem list. MEDICAL HX Past Medical History: Diagnosis Date Allergic Anxiety Asthma Back pain Bipolar disorder (CMS-HCC) Depression Dysautonomia [facility] [place] Eating disorder GERD (gastroesophageal reflux disease) Hypertension Postural orthostatic tachycardia syndrome POTS (postural orthostatic tachycardia syndrome) PTSD (post-traumatic stress disorder) Seizures ([facility]) Urinary tract infection SURGICAL HX Past Surgical History: Procedure Laterality Date GASTROSTOMY TUBE PLACEMENT as , removed FAMILY HX Family History Problem Relation Age of Onset Breast cancer Maternal great-grandmother Breast cancer Maternal Aunt MEDS Current Outpatient Medications Medication Sig Dispense Refill busPIRone (BUSPAR) 10 mg tablet 1 tablet (10 mg total). desvenlafaxine (PRISTIQ) 100 mg 24 hr tablet Take 1 tablet (100 mg total) by mouth. lurasidone (LATUDA) 40 mg tablet Take 20 mg by mouth. melatonin (CIRCADIN) 5 mg tablet Take 1 tablet (5 mg total) by mouth nightly as needed. naltrexone (REVIA) 50 mg tablet Take 0.5 tablets (25 mg total) by mouth. nicotine polacrilex (NICORETTE) 2 mg gum ondansetron (ZOFRAN) 4 mg tablet Take 2 tablets (8 mg total) by mouth. prazosin (MINIPRESS) 1 mg capsule traZODone (DESYREL) 100 mg tablet metoprolol tartrate (LOPRESSOR) 100 mg tablet Take 100 mg by mouth 2 (two) times a day. (Patient not taking: Reported on 09/22/2024) No current facility-administered medications for this visit. ALLERGIES Allergies Allergen Reactions Penicillins Hives Compazine [Prochlorperazine] Anxiety Review of Systems Constitutional: Negative for chills and fever. HENT: Negative for ear pain, sinus pain and sore throat. Eyes: Negative for pain. Respiratory: Negative for cough and shortness of breath. Cardiovascular: Negative for chest pain and palpitations. Gastrointestinal: Negative for abdominal pain, constipation, diarrhea, nausea and vomiting. Genitourinary: Negative for difficulty urinating, pelvic pain, vaginal bleeding and vaginal discharge. Skin: Negative for rash and wound. Left hand w/pink scars extending along bones which pt. States is due to self harm Psychiatric/Behavioral: Negative for dysphoric mood. The patient is not nervous/anxious. Objective BP 116/72 Ht 157.5 cm (5' 2 ) Wt 88.5 kg (195 lb) LMP 09/14/2024 (Exact Date) BMI 35.67 kg/m Physical Exam Vitals and nursing note reviewed. Constitutional: General: She is not in acute distress. Appearance: She is obese. She is not ill-appearing, toxic-appearing or diaphoretic. HENT: Head: Normocephalic and atraumatic. Eyes: General: No scleral icterus. Right eye: No discharge. Left eye: No discharge. Neck: Thyroid: No thyroid mass, thyromegaly or thyroid tenderness. Cardiovascular: Rate and Rhythm: Normal rate and regular rhythm. Heart sounds: Normal heart sounds. Pulmonary: Effort: Pulmonary effort is normal. Chest: Chest wall: No mass, lacerations, deformity, swelling or tenderness. Breasts: Austin Score is 5. Breasts are symmetrical. Right: Normal. Left: Normal. Abdominal: General: There is no distension. Palpations: There is no mass. Tenderness: There is no abdominal tenderness. There is no guarding or rebound. Hernia: No hernia is present. There is no hernia in the left inguinal area or right inguinal area. Genitourinary: General: Normal vulva. Exam position: Lithotomy position. Pubic Area: No rash or pubic lice. Austin stage (genital): 5. Labia: Right: No rash, tenderness, lesion or injury. Left: No rash, tenderness, lesion or injury. Urethra: No prolapse, urethral pain, urethral swelling or urethral lesion. Vagina: Normal. Cervix: Normal. Uterus: Normal. Adnexa: Right adnexa normal and left adnexa normal. Rectum: No external hemorrhoid. Musculoskeletal: Cervical back: Neck supple. No rigidity or tenderness. Lymphadenopathy: Cervical: No cervical adenopathy. Upper Body: Right upper body: No axillary adenopathy. Left upper body: No axillary adenopathy. Lower Body: No right inguinal adenopathy. No left inguinal adenopathy. Skin: General: Skin is warm and dry. Neurological: General: No focal deficit present. Mental Status: She is alert. Psychiatric: Mood and Affect: Mood normal. Behavior: Behavior normal. Assessment/Plan: Roshan was seen today for annual exam. Diagnoses and all orders for this visit: Well woman exam with routine gynecological exam Cervical smear, as part of routine gynecological examination - Thin Prep Pap Test BMI is above average; Discussed eating tips for weight loss and and exercise steps. Breast self exam technique reviewed and patient encouraged to perform self-exam monthly. Discussed healthy lifestyle modifications. Educational material distributed. Follow up as needed. Next pap due pending results of today's per ASCCP guidelines. Discussed possibility of use of medications for amenorrhea as pt. W/severe history of depression atfew days prior to menses which has required hospitalization. Given pt. Recently had psychiatric medications adjusted, will hold off for now to see if other medications are necessary. Discussed recommendations for HPV vaccine between 9-45 yo. [facility] Discussed need for yearly mammogram after 40 yo. Discussed colon cancer screening recommendations to begin at 45 yo, patient to discuss with PCP. All questions answered. Follow up in 1 year for annual acls nurse exam. CODY JAIMES APRN, CNM Gayla M Sholey, APRN-CNM 09/22/24 1643 [facility]2025 [place] [address] Discharge Summary Signed Patient: Roshan Willingham MR#: [id number] : 1990 Acct:[id number] Age/Sex: 33 / F Adm Date: 5 Loc: Room: [address] [place] [address]: Brent Simmons MD Copies to: MD Letty Sanchez RESOURCE EFFICIENCY MANAGER-C~ Providers Date of Discharge: 09/20/24 Discharging Provider: Brent Simmons Primary Care Provider: Letty oTrres Consults: 09/09/24 17:31 Consult to Case Management Routine Comment: CM Reason for Consult: Distresser-General Discharge Diagnosis (1) Bipolar depression: (2) Borderline personality disorder: Final Diagnosis Final Discharge Diagnosis: Bipolar disorder Borderline personality disorder Summary Hospital Course Hospital course: Ms. Willingham is a 33 year old female who presented due to concern for suicidal thoughts with plans ofoverdosing. Patient was at her outpatient day treatment and reported that she made some statements regarding hurting herself. It was documented that she had pills and a razor blade with her. Upon assessment, patient was moved to the special care due to reporting that shewould not be able to keep herself safe and also making an instrument from her calm but she could scratch herself. She stated that her depression has been getting worse recently and reported that she was off her medications for roughly1 week as she had some insurance issues and was not able to fill them. She stated by the time she got her pills she was feeling very down. She stated thatshe had some poor sleep and appetite. She reported feelings of hopelessness anddepression and suicidal thoughts. Psychiatric history: Endorses history of depression, anxiety, anorexia, cutting,suicidality Family psychiatric history: Mother: Anxiety, depression, COPD Psychiatric hospitalizations: History of multiple psychiatric hospitalizations Suicide attempts: History of suicide attempts Employment: Unemployed Living situation: Lives with parents Substance use: Uses marijuana Patient was treated with Pristiq, BuSpar, and Latuda. She felt that getting back on her Latuda was a big benefit for her as she was off of it due to some insurance issues. Initially she had some issues with suicidal thoughts but these gradually improved during her hospitalization. She did not act on those thoughts during her hospitalization and seemed to do okay controlling those symptoms. Her sleep and appetite improved during her hospitalization. She became less depressed and started to deny any suicidal thoughts. She felt that her symptoms were under control as time and medication adjustments seem to help. She started to attend groups and socialize with peers. She seemed to be in better s pirits and felt comfortable with discharge. She stated that she would continue her medications and follow-up with outpatient services. She was futureoriented and talked about things that she was looking forward to upon discharge. Time spent discussing smoking cessation with patient: 3 to 10 minutes Condition Condition at Discharge: Stable Status at Discharge Cognitive/behavioral status at discharge: Mental Status Exam: Appearance: grossly normal Mental Status: mental status grossly normal Mood: Euthymic mood Affect: Normal affect Speech and Movement: speech normal, movement normal Attitude: cooperative Thought Process: normal Thought Content: Denied hallucinations, no homicidality and no suicidality Insight: Good Judgment: Good Functional status at discharge: independent ambulation Overall status at discharge: patient is back to baseline Time Spent with Patient Time spent providing/coordinating discharge services (# min): 30 Discharge Plan Discharge Plan Patient Disposition: Home Activity: No Activity Restriction Diet: Regular Additional Instructions: Important Contact Information You can call [facility] at [phone] any timeday or night if you have emergent questions or question regarding discharge instructions. If at anytime you are feeling an increase inyour psychiatric symptoms, call your physician or behavioral healthcare provider. If any time you have thoughts of harming yourself or others contact one of the following: Call (available 02/12) Crisis Text Line (available 02/12) text 4HOPE to [phone] [facility] (available 8 a.m. Midnight) call [phone] ([phone]) Regular Diet No Activity Restrictions Instructions: Depression in adults - Discharge instructions, [facility] [place] Instructions, Know your Meds Prescriptions: New nicotine (polacrilex) 2 mg Gum 2 mg buccal Q2H PRN (Reason: Nicotine Cravings) Qty: 20 0RF prazosin 1 mg Capsule 2 mg PO QHS 30 Days Qty: 60 0RF naltrexone 50 mg Tablet 50 mg PO BID 30 Days Qty: 60 0RF trazodone 100 mg Tablet 100 mg PO QHS PRN (Reason: Insomnia) 30 Days Qty: 30 0RF buspirone 10 mg Tablet 10 mg PO TID 30 Days Qty: 90 0RF melatonin 5 mg Tablet 10 mg PO QHS 30 Days Qty: 60 0RF lurasidone 80 mg Tablet 80 mg PO DAILY.WITH.SUPPER 30 Days Qty: 30 0RF Continued budesonide-formoterol [Symbicort] 160-4.5 mcg/actuation HFA aerosol inhaler 1 inh inhalation BID Qty: 10.2 0RF albuterol sulfate 90 mcg/actuation HFA aerosol inhaler 2 inh INHALATION Q4-6H PRN (Reason: shortness of breath or wheezing) Qty: 18 0RF Rx Instructions: administer with spacer desvenlafaxine succinate [Pristiq] 100 mg tablet extended release 24 hr 100 mg PO DAILY Qty: 30 0RF Discontinued trazodone 50 mg tablet 50 mg PO HS PRN (Reason: sleep) lurasidone 40 mg Tablet 40 mg PO DAILY.WITH.SUPPER 14 Days Qty: 14 1RF naltrexone 50 mg Tablet 50 mg PO DAILY Qty: 30 0RF melatonin 5 mg Tablet 5 mg PO QHS Qty: 30 0RF Follow Up: [facility] [Other] - 09/22/24 2:00 pm (Please bring ID and insurance card to this appointment. ) [facility] [Outside] - 09/24/24 12:45 pm (key account manager will call you tomorrow, if you miss this phone call please call back as soon as possible. Call if you need to reschedule your follow-up appointments: Friday09/24/24 at 12:45pm with the nurse then 1:00pm with [place] at [facility]. ) Letty Torres, RESOURCE EFFICIENCY MANAGER-C [Primary Care Provider] - (Call your family doctor with medical concerns.) Exam Physical Exam Vital Signs: Temp Pulse Resp BP Pulse Ox O2 Del Method 97.7 F 81 18 134/83 99 Room Air 09/20/24 07:30 09/20/24 07:30 09/20/24 07:30 09/20/24 07:30 09/20/24 07:30 09/20/24 07:30 Documented By: Brent Simmons MD 09/20/24 1200 Signed By: 09/20/24 1302 [facility]05-11-2025 Progress note Author Phillip arriaza [facility] Note Date/Time September 19, 2024 6:53a m [facility] [address] [place] [address] Psychiatry Progress Note Signed Patient: Roshan Willingham MR#: [id number] : 1990 Acct:[id number] Age/Sex: 33 / F Adm Date: 5 Loc: Room: [address] [place] [address] Type : ADM IN Attending Dr: Brent Simmons MD Copies to: ~ Date of Service: 09/19/2024 Subjective Subjective Narrative: Ms. Willingham said she had a good day yesterday but sleep has been poor. She noted that Latuda has been effective. Patient has been showing signs of improvement as her mood is much better than at the time of admission. She likes the current med regimen and is thinking about going to day treatment on Friday. She denies SI/HI and verbalized the intent to notify staff if she has such thoughts. Her affect is brighter on the exams. She continues to be compliant with prescribed medications and is visible within the unit milieu. She has been working with behavioral health case manager on her aftercare, and she agreed to continue the current medication regimen. She understands the current medication regimen's risks, benefits, and indications. She is focusing on using her coping skills. I talked with Ms. Willingham about the importance of ongoing treatment for depression. She stated that she understood and accepted outpatient follow up. Ihave encouraged her to schedule twice weekly sessions of psychotherapy. While her mental health symptoms are chronic, she does not currently pose a threat to self or others. She participated in group activities, articulated needs appropriately, and displayed no self-harm behaviors since being admitted to the inpatient unit. Imminent risk is low, given the factors noted above. She denied any current symptoms that would pose a threat to herself or others. Further inpatient hospitalization is unlikely to mitigate chronic suicide risk, and pt agrees to f/u with outpatient psych care. We also discussed the benefits of outpatient CBTand DBT to help with depression and reduce suicide risk. She identified protective factors and calming techniques and created a safety plan. At this time, the patient has maximized the benefit from inpatient hospitalization, as can be determined with reasonable medical certainty. As we assessed her discharge readiness, the patient understood the importance ofcontinued outpatient treatment and medication adherence. The patient voiced understanding of the discharge plan discussed with the treatment team. While it is impossible to predict suicide or homicide, my discussion with staff indicated the patient manifested a low risk of acute harm to self or others and a low-moderate chronic risk, evidenced by the psychiatric history andthe subjective and objective condition at that time. The patient denies any active psychiatric signs and symptoms significantly deviating from baseline functioning. Residual suicide/homicide/psychosis/violence/inability to care for self is low risk as maximization of inpatient psychiatry treatment benefit was achieved to address acute risks, which initially led to admission. Overall, she has a positive mood and attitude towards life. Mental Status: grossly normal Speech and Movement: speech and movement are normal and speech clear Appearance: dressed casually Mood: Euthymic mood Affect: Normal affect Attitude: cooperative Thought Process: Normal Thought Content: Denied hallucinations, no homicidally, and no suicidality Insight: fair Judgment: fair Impulse control: fair Exam Physical Exam Vital Signs: Temp Pulse Resp BP Pulse Ox O2 Del Method 97.6 F 85 16 131/89 97 Room Air 09/18/24 20:09/18/24 20:09/18/24 20:09/18/24 20:09/18/24 20:09/18/24 21:00 Abnormal Involuntary Movement Dental Status Are dentures usually worn?: No Assessment/Plan Assessment/Plan (1) Bipolar depression: (2) Borderline personality disorder: Plan Patient objectively looking better and denied SI/HI. Increase Trazodone to 100 mg PO HS PRN Continue Prazosin 1 mg PO HS and Naltrexone 50 mg PO BID Continue Pristiq 100 mg daily BuSpar 10 mg 3 times a day for anxiety and Latuda 80 mg PO Q dinner Continue to monitor mental status Encourage group participation and medication compliance Risk benefits alternatives explained Documented By: Phillip Davis MD [id number] Signed By: <Electronically signed by Phillip Davis MD> 09/19/24 0653 [facility] Work Phone: 1(311) 867-716905-11-2025 [place] [address] Psychiatry Progress Note Signed Patient: Roshan Willingham MR#: [id number] : 1990 Acct:[id number] Age/Sex: 33 / F Adm Date: 5 Loc: Room: [address] [place] [address] Type : ADM IN Attending Dr: Brent Simmons MD Copies to: ~ Date of Service: 09/19/2024 Subjective Subjective Narrative: Ms. Willingham said she had a good day yesterday but sleep has been poor. She noted that Latuda has been effective. Patient has been showing signs of improvement as her mood is much better than at the time of admission. She likes the current med regimen and is thinking about going to day treatment on Friday. She denies SI/HI and verbalized the intent to notify staff if she has such thoughts. Her affect is brighter on the exams. She continues to be compliant with prescribed medications and is visible within the unit milieu. She has been working with behavioral health case manager on her aftercare, and she agreed to continue the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 hallucinations, no homicidality, intermittent suicidality Insight: fair Judgment: fair Exam Physical Exam Vital Signs: Temp Pulse Resp BP Pulse Ox O2 Del Method 98.2 F 71 16 141/89 H 95 Room Air 09/12/24 20:00 09/12/24 20:00 09/12/24 20:00 09/12/24 20:00 09/12/24 20:00 09/12/24 20:00 Objective Labs Labs: Abnormal Labs 09/12/24 09/12/24 12:41 12:45 RBC 5.08 H Hgb 15.9 H Hct 46.6 H Sodium 134 L Carbon Dioxide 17.9 L Anion Gap 17.2 H Urine Appearance Cloudy A Ur Specific [facility] 1.043 H Urine Protein 100 H Urine Ketones 4+ H Urine Urobilinogen 3 H Ur Leukocyte Esterase 1+ H Ur Squamous Epith Cells 20-49 H Abnormal Involuntary Movement Dental Status Are dentures usually worn?: No Assessment/Plan Assessment/Plan (1) Bipolar depression: (2) Borderline personality disorder: Plan Patient said she needs to give herself the time to focus on her mental health Continue Pristiq 100 mg daily Continue Latuda 60 mg with dinner and BuSpar 10 mg 3 times a day for anxiety Continue to monitor mental status Encourage group participation and medication compliance Risk benefits alternatives explained Documented By: Phillip Davis MD [id number] Signed By: <Electronically signed by Phillip Davis MD> 09/13/24 0641 [facility] Work Phone: 1(316) 118-593805-05-2025 [place] [address] Psychiatry Progress Note Signed Patient: Roshan Willingham MR#: [id number] : 1990 Acct:[id number] Age/Sex: 33 / F Adm Date: 5 Loc: Room: [address] [place] [address] Type : ADM IN Attending Dr: Brent Simmons MD Copies to: ~ Date of Service: 09/13/2024 Subjective Subjective Narrative: Ms. Willingham showed me her self harming behaviors. She noted that her anxiety is ongoing She still reported having significant depression. She is currently staying with her grandparents and feels that there is no structure in life. Shetalked about her mom being her biggest trigger I need to push through everything I can. Her fluid and food intake has been low. She denied any side effects with the medication and denied any current suicidal thoughts. She has been attending occasional groups. We discussed IOP and DBT groups. Mental Status Exam: Appearance: grossly normal Mental Status: mental status grossly normal Mood: dysthymic mood Affect: dysphoric affect Speech and Movement: speech normal, movement normal Attitude: cooperative Thought Process: normal Thought Content: Denied hallucinations, no homicidality, intermittent suicidality Insight: fair Judgment: fair Exam Physical Exam Vital Signs: Temp Pulse Resp BP Pulse Ox O2 Del Method 98.2 F 71 16 141/89 H 95 Room Air 09/12/24 20:00 09/12/24 20:00 09/12/24 20:00 09/12/24 20:00 09/12/24 20:00 09/12/24 20:00 Objective Labs Labs: Abnormal Labs 09/12/24 09/12/24 12:41 12:45 RBC 5.08 H Hgb 15.9 H Hct 46.6 H Sodium 134 L Carbon Dioxide 17.9 L Anion Gap 17.2 H Urine Appearance Cloudy A Ur Specific [facility] 1.043 H Urine Protein 100 H Urine Ketones 4+ H Urine Urobilinogen 3 H Ur Leukocyte Esterase 1+ H Ur Squamous Epith Cells 20-49 H Abnormal Involuntary Movement Dental Status Are dentures usually worn?: No Assessment/Plan Assessment/Plan (1) Bipolar depression: (2) Borderline personality disorder: Plan Patient said she needs to give herself the time to focus on her mental health Continue Pristiq 100 mg daily Continue Latuda 60 mg with dinner and BuSpar 10 mg 3 times a day for anxiety Continue to monitor mental status Encourage group participation and medication compliance Risk benefits alternatives explained Documented By: Phillip Davis MD [id number] Signed By: 09/13/24 0641 [facility]05-04-2025 Progress note Author Brent Simmons [facility] Note Date/Time September 12, 2024 12:27p m [facility] [address] [place] [address] Psychiatry Progress Note Signed Patient: Roshan Willingham MR#: [id number] : 1990 Acct:[id number] Age/Sex: 33 / F Adm Date: 5 Loc: 1S Room: [address] [place] [address] Type : ADM IN Attending Dr: Brnet Simmons MD Copies to: ~ Date of Service: 09/12/2024 Subjective Subjective Narrative: Ms. Willingham reported that she is doing okay today. She still reported having significant depression. Her fluid and food intake has been low. She denied anyside effects with the medication and denied any current suicidal thoughts. She has been attending occasional groups. Mental Status Exam: Appearance: grossly normal Mental Status: mental status grossly normal Mood: dysthymic mood Affect: dysphoric affect Speech and Movement: speech normal, movement normal Attitude: cooperative Thought Process: normal Thought Content: Denied hallucinations, no homicidality, improving suicidality Insight: fair Judgment: fair Exam Physical Exam Vital Signs: Temp Pulse Resp BP Pulse Ox O2 Del Method 98.1 F 90 18 126/86 98 Room Air 09/12/24 07:30 09/12/24 07:30 09/12/24 07:30 09/12/24 07:30 09/12/24 07:30 09/12/24 09:00 Abnormal Involuntary Movement Dental Status Are dentures usually worn?: No Assessment/Plan Assessment/Plan (1) Bipolar depression: Plan Patient reported feeling a bit better since being back on the Latuda Continue Pristiq 100 mg daily Increase Latuda 60 mg with dinner We will add BuSpar 10 mg 3 times a day for anxiety Continue to monitor mental status Encourage group participation and medication compliance Risk benefits alternatives explained Documented By: Brent Simmons MD 09/12/241224 Signed By: <Electronically signed by Brent Simmons MD> 09/12/24 [facility] Work Phone: [phone]) 804-648905-04-2025 [place] [address] Psychiatry Progress Note Signed Patient: Roshan Willingham MR#: [id number] : 1990 Acct:[id number] Age/Sex: 33 / F Adm Date: 5 Loc: 1S Room: [address] [place] [address] Type : ADM IN Attending Dr: Brent Simmons MD Copies to: ~ Date of Service: 09/12/2024 Subjective Subjective Narrative: Ms. Willingham reported that she is doing okay today. She still reported having significant depression.Her fluid and food intake has been low. She denied anyside effects with the medication and denied any current suicidal thoughts. She has been attending occasional groups. Mental Status Exam: Appearance: grossly normal Mental Status: mental status grossly normal Mood: dysthymic mood Affect: dysphoric affect Speech and Movement: speech normal, movement normal Attitude: cooperative Thought Process: normal Thought Content: Denied hallucinations, no homicidality, improving suicidality Insight: fair Judgment: fair Exam Physical Exam Vital Signs: Temp Pulse Resp BP Pulse Ox O2 Del Method 98.1 F 90 18 126/86 98 Room Air 09/12/24 07:30 09/12/24 07:30 09/12/24 07:30 09/12/24 07:30 09/12/24 07:30 09/12/24 09:00 Abnormal Involuntary Movement Dental Status Are dentures usually worn?: No Assessment/Plan Assessment/Plan (1) Bipolar depression: Plan Patient reported feeling a bit better since being back on the Latuda Continue Pristiq 100 mg daily Increase Latuda 60 mg with dinner We will add BuSpar 10 mg 3 times a day for anxiety Continue to monitor mental status Encourage group participation and medication compliance Risk benefits alternatives explained Documented By: Brent Simmons MD 09/12/241224 Signed By: 09/12/24 1227 [facility]05-03-2025 Progress note Author Brent Simmons [facility] Note Date/Time September 11, 2024 2:49pm [facility] [address] [place] [address] Psychiatry Progress Note Signed Patient: Roshan Willingham MR#: [id number] : 1990 Acct:[id number] Age/Sex: 33 / F Adm Date: 5 Loc: Room: 1L0278-5 Type : ADM IN Attending Dr: Brent Simmons MD Copies to: ~ Date of Service: 09/11/2024 Subjective Subjective Narrative: Ms. Willingham reported that she is doing better. She stated that she still has some depression and suicidality but is not as tearful as she was yesterday. Shestated that she was just feeling overwhelmed yesterday. Stated that she was able to sleep yesterday but appetite has been low. Mental Status Exam: Appearance: grossly normal Mental Status: mental status grossly normal Mood: dysthymic mood Affect: dysphoric affect Speech and Movement: speech normal, movement normal Attitude: cooperative Thought Process: normal Thought Content: Denied hallucinations, no homicidality, improving suicidality Insight: fair Judgment: fair Exam Physical Exam Vital Signs: Temp Pulse Resp BP Pulse Ox O2 Del Method 97.1 F L 78 16 129/84 97 Room Air 09/11/24 07:30 09/11/24 07:30 09/11/24 07:30 09/11/24 07:30 09/11/24 07:30 09/11/24 08:33 Abnormal Involuntary Movement Dental Status Are dentures usually worn?: No Assessment/Plan Assessment/Plan (1) Bipolar depression: Plan Patient reported feeling a bit better since being back on the Latuda Continue Pristiq 100 mg daily and Latuda 40 mg with dinner Continue to monitor mental status Encourage group participation and medication compliance Risk benefits alternatives explained Documented By: Brent Simmons MD 09/11/241446 Signed By: <Electronically signed by Brent Simmons MD> 09/11/241448 [facility] Work Phone: 1(423) 290-761105-03-2025 [place] [address] Psychiatry Progress Note Signed Patient: Roshan Willingham MR#: [id number] : 1990 Acct:[id number] Age/Sex: 33 / F Adm Date: 5 Loc: Room: [id number] Type : ADM IN Attending Dr: Brent Simmons MD Copies to: ~ Date of Service: 09/11/2024 Subjective Subjective Narrative: Ms. Willingham reported that she is doing better. She stated that she still has some depression and suicidality but is not as tearful as she was yesterday. Shestated that she was just feeling overwhelmedyesterday. Stated that she was able to sleep yesterday but appetite has been low. Mental Status Exam: Appearance: grossly normal Mental Status: mental status grossly normal Mood: dysthymic mood Affect: dysphoric affect Speech and Movement: speech normal, movement normal Attitude: cooperative Thought Process: normal Thought Content: Denied hallucinations, no homicidality, improving suicidality Insight: fair Judgment: fair Exam Physical Exam Vital Signs: Temp Pulse Resp BP Pulse Ox O2 Del Method 97.1 F L 78 16 129/84 97 Room Air 09/11/24 07:30 09/11/24 07:30 09/11/24 07:30 09/11/24 07:30 09/11/24 07:30 09/11/24 08:33 Abnormal Involuntary Movement Dental Status Are dentures usually worn?: No Assessment/Plan Assessment/Plan (1) Bipolar depression: Plan Patient reported feeling a bit better since being back on the Latuda Continue Pristiq 100 mg daily and Latuda 40 mg with dinner Continue to monitor mental status Encourage group participation and medication compliance Risk benefits alternatives explained Documented By: Brent Simmons MD 09/11/24 1447 Signed By: 09/11/24 1449 [facility]05-02-2025 History and physical note Author Brent Simmons [facility] Note Date/Time September 10, 2024 2:45pm [facility] [address] [place] [address] Psychiatry H&P Signed Patient: Roshan Willingham MR#: [id number] : 1990 Acct:[id number] Age/Sex: 33 / F Adm Date: 5 Loc: Room: [address] [place] [address] Type: ADM IN Attending Dr: Brent Simmons MD Copies to: MD Letty Sanchez NP-C~ Date of Service: 09/10/2024 HPI History of Present Illness History of present illness: Ms. Willingham is a 33 year old female who presented due to concern for suicidal thoughts with plans of overdosing. Patient was at her outpatient day treatment and reported that she made some statements regarding hurting herself. It was documented that she had pills and a razor blade with her. Upon assessment, patient was moved to the special care due to reporting that shewould not be able to keep herself safe and also making an instrument from her calm but she could scratch herself. She stated that her depression has been getting worse recently and reported that she was off her medications for roughly1 week as she had some insurance issues and was not able to fill them. She stated by the time she got her pills she was feeling very down. She stated thatshe had some poor sleep and appetite. She reported feelings of hopelessness anddepression and suicidal thoughts. Psychiatric history: Endorses history of depression, anxiety, anorexia, cutting,suicidality Family psychiatric history: Mother: Anxiety, depression, COPD Psychiatric hospitalizations: History of multiple psychiatric hospitalizations Suicide attempts: History of suicide attempts Employment: Unemployed Living situation: Lives with parents [...] Denies abnormal movements Psychiatric: Reports depression and suicidal ideation Physical exam: Const: cooperative Nutritional Appearance: average [...] Skin: no rashes or lesions noted Neuro: CNI: Normal olfaction CNI: normal olfaction CNII: Visual stover intact, CNIII,IV,: EOM intact, no nystagmus. Pupils equal, round, reactive to light and accommodation, CNV: Sensation intact to light touch, CNVII: Raises eyebrows, smile/frown, puff out cheeks symmetrically, CNVIII: Hearing intact bilaterally, CNIX,X: Voice normal, soft palate elevation normal, symmetrical, CNXI: Shoulder shrug strong, equal bilaterally, CNXII: Tongue protrusion midline, movement symmetrical. Extrem: normal to inspection and full ROM Mental Status Exam: Appearance: grossly normal Mental Status: mental status grossly normal Mood: dysthymic mood Affect: dysphoric affect Speech and Movement: speech normal, movement normal Attitude: cooperative Thought Process: normal Thought Content: Denied hallucinations, no homicidality, reported suicidality Insight: fair Judgment: fair [facility] Medical History (Updated 09/10/24 @ 14:45 by Brent Simmons MD) Borderline personality disorder Anorexia Pneumonia Asthma Eating disorder bulimia/anorexia Overdose PSYCH MEDICATION OVERDOSE JULY 2019, 2 OTHER OD'S IN PAST ON PSYCH MEDICATION Depression Anxiety Bruno disease History of kidney infection BOUCHRA (acute kidney injury) Surgical History History of gastrostomy as an infant History of neck surgery CRICOID SPLIT A BABY Family History Mother Anxiety Depression COPD (chronic obstructive pulmonary disease) Myocardial infarction Mother No problems noted. Social History Smoking Status: Current every day smoker Tobacco Type: cigarettes Substance Use Type: Marijuana Substance Abuse Comment: Last used yesterday Social History Comments: lives with grandparents Meds Medications and Allergies Allergies cranberry Allergy (Verified 04/01/24 14:24) Hives Penicillins Allergy (Verified 04/01/24 14:24) Rash prochlorperazine (From Compazine) Adverse Reaction (Verified 04/01/24 14:24) Irritable apple Allergy (Uncoded 01/12/24 21:25) Unknown Reaction Home Medications albuterol sulfate 90 mcg/actuation aerosol inhaler 2 inh inhalation Q4-6H PRN shortness of breath or wheezing #18 grams 07/24/22 [Rx Confirmed 09/09/24] budesonide-formoterol HFA 160 mcg-4.5 mcg/actuation aerosol inhaler (Symbicort) 1 inh inhalation BID #10.2 grams 07/24/22 [Rx Confirmed 09/09/24] melatonin 5 mg tablet 5 mg PO QHS #30 tabs 05/24/24 [Rx Confirmed 09/09/24] naltrexone 50 mg tablet 50 mg PO DAILY #30 tabs 05/24/24 [Rx Confirmed 09/09/24] trazodone 50 mg tablet 50 mg PO HS PRN sleep 07/14/24 [History Confirmed 09/09/24] desvenlafaxine succinate 100 mg tablet,extended release 24 hr (Pristiq) 100 mg PO DAILY #14 tabs 07/18/24 [Rx Confirmed 09/09/24] lurasidone 40 mg tablet 40 mg PO DAILY.WITH.SUPPER 14 days #14 tabs 07/18/24 [Rx Confirmed 09/09/24] Exam Physical Exam Vital Signs: Temp Pulse Resp BP Pulse Ox O2 Del Method 98.5 F 73 16 132/79 96 Room Air 09/10/24 07:30 09/10/24 07:30 09/10/24 07:30 09/10/24 07:30 09/10/24 07:30 09/10/24 09:00 Abnormal Involuntary Movement Dental Status Are dentures usually worn?: No Assessment/Plan (1) Bipolar affect, depressed: (2) Bipolar depression: Plan Patient reported depression and suicidal ideation Restart Pristiq 100 mg daily and Latuda 40 mg with dinner Continue to monitor mental status Encourage group participation and medication compliance Risk benefits alternatives explained Documented By: Brent Simmons MD 09/10/24 1442 Signed By: <Electronically signed by Brent Simmons MD> 09/10/24 [facility] [place] Work Phone: 1(946) 212-764105-02-2025 [place] [address] Psychiatry H&P Signed Patient: Roshan Willingham MR#: [id number] : 1990 Acct:[id number] Age/Sex: 33 / F Adm Date: 5 Loc: Room: [address] [place] [address] Type: ADM IN Attending Dr: Brent Simmons MD Copies to: MD Letty Sanchez~ Date of Service: 09/10/2024 HPI History of Present Illness History of present illness: Ms. Willingham is a 33 year old female who presented due to concern for suicidal thoughts with plans ofoverdosing. Patient was at her outpatient day treatment and reported that she made some statements regarding hurting herself. It was documented that she had pills and a razor blade with her. Upon assessment, patient was moved to the special care due to reporting that shewould not be able to keep herself safe and also making an instrument from her calm but she could scratch herself. She stated that her depression has been getting worse recently and reported that she was off her medications for roughly1 week as she had some insurance issues and was not able to fill them. She stated by the time she got her pills she was feeling very down. She stated thatshe had some poor sleep and appetite. She reported feelings of hopelessness anddepression and suicidal thoughts. Psychiatric history: Endorses history of depression, anxiety, anorexia, cutting,suicidality Family psychiatric history: Mother: Anxiety, depression, COPD Psychiatric hospitalizations: History of multiple psychiatric hospitalizations Suicide attempts: History of suicide attempts Employment: Unemployed Living situation: Lives with parents [...] Denies abnormal movements Psychiatric: Reports depression and suicidal ideation Physical exam: Const: cooperative Nutritional Appearance: average [...] Skin: no rashes or lesions noted Neuro: CNI: Normal olfaction CNI: normal olfaction CNII: Visual stover intact, CNIII,IV,: EOM intact, no nystagmus. Pupils equal, round, reactive to light and accommodation, CNV: Sensation intact to light touch, CNVII: Raises eyebrows, smile/frown, puff out cheeks symmetrically, CNVIII: Hearing intact bilaterally, CNIX,X: Voice normal, soft palate elevation normal, symmetrical, CNXI: Shoulder shrug strong, equal bilaterally, CNXII: Tongue protrusion midline, movement symmetrical. Extrem: normal to inspection and full ROM Mental Status Exam: Appearance: grossly normal Mental Status: mental status grossly normal Mood: dysthymic mood Affect: dysphoric affect Speech and Movement: speech normal, movement normal Attitude: cooperative Thought Process: normal Thought Content: Denied hallucinations, no homicidality, reported suicidality Insight: fair Judgment: fair [facility] Medical History (Updated 09/10/24 @ 14:45 by Brent Simmons MD) Borderline personality disorder Anorexia Pneumonia Asthma Eating disorder bulimia/anorexia Overdose PSYCH MEDICATION OVERDOSE JULY 2019, 2 OTHER OD'S IN PAST ON PSYCH MEDICATION Depression Anxiety Bruno disease History of kidney infection BOUCHRA (acute kidney injury) Surgical History History of gastrostomy as an infant History of neck surgery CRICOID SPLIT A BABY Family History Mother Anxiety Depression COPD (chronic obstructive pulmonary disease) Myocardial infarction Mother No problems noted. Social History Smoking Status: Current every day smoker Tobacco Type: cigarettes Substance Use Type: Marijuana Substance Abuse Comment: Last used yesterday Social History Comments: lives with grandparents Meds Medications and Allergies Allergies cranberry Allergy (Verified 04/01/24 14:24) Hives Penicillins Allergy (Verified 04/01/24 14:24) Rash prochlorperazine (From Compazine) Adverse Reaction (Verified 04/01/24 14:24) Irritable apple Allergy (Uncoded 01/12/24 21:25) Unknown Reaction Home Medications albuterol sulfate 90 mcg/actuation aerosol inhaler 2 inh inhalation Q4-6H PRN shortness of breath or wheezing #18 grams 07/24/22 [Rx Confirmed 09/09/24] budesonide-formoterol HFA 160 mcg-4.5 mcg/actuation aerosol inhaler (Symbicort) 1 inh inhalation BID #10.2 grams 07/24/22 [Rx Confirmed 09/09/24] melatonin 5 mg tablet 5 mg PO QHS #30 tabs 05/24/24 [Rx Confirmed 09/09/24] naltrexone 50 mg tablet 50 mg PO DAILY #30 tabs 05/24/24 [Rx Confirmed 09/09/24] trazodone 50 mg tablet 50 mg PO HS PRN sleep 07/14/24 [History Confirmed 09/09/24] desvenlafaxine succinate 100 mg tablet,extended release 24 hr (Pristiq) 100 mg PO DAILY #14 tabs 07/18/24 [Rx Confirmed 09/09/24] lurasidone 40 mg tablet 40 mg PO DAILY.WITH.SUPPER 14 days #14 tabs 07/18/24 [Rx Confirmed 09/09/24] Exam Physical Exam Vital Signs: Temp Pulse Resp BP Pulse Ox O2 Del Method 98.5 F 73 16 132/79 96 Room Air 09/10/24 07:30 09/10/24 07:30 09/10/24 07:30 09/10/24 07:30 09/10/24 07:30 09/10/24 09:00 Abnormal Involuntary Movement Dental Status Are dentures usually worn?: No Assessment/Plan (1) Bipolar affect, depressed: (2) Bipolar depression: Plan Patient reported depression and suicidal ideation Restart Pristiq 100 mg daily and Latuda 40 mg with dinner Continue to monitor mental status Encourage group participation and medication compliance Risk benefits alternatives explained Documented By: Brent Simmons MD 09/10/24 1442 Signed By: 09/10/24 1445 [facility]04-08-2025 Hospital Discharge instructions* Discharge Instructions* Rose Mckoy DO - 08/17/2024 4:23 PM EDT Please go to your therapy appointment tomorrow at 1 pm, if you feel suicidal and have a plan, then return to er for additional care. And evaluation. [facility] [place] [address] Discharge Summary Signed Patient: Roshan Willingham MR#: [id number] : 1990 Acct:[id number] Age/Sex: 33 / F Adm Date: 5 Loc: Room: [address] [place] [address]: Brent Simmons MD Copies to: MD Letty Sanchez RESOURCE EFFICIENCY MANAGER-C~ Providers Date of Discharge: 07/18/24 Discharging Provider: Brent Simmons Primary Care Provider: Letty Torres Discharge Diagnosis (1) Bipolar disease, chronic: (2) Generalized anxiety disorder: Final Diagnosis Final Discharge Diagnosis: Bipolar disorder Generalized anxiety disorder Borderline personality disorder Summary Hospital Course Hospital course: Ms. Willingham is a 33 year old female who presented due to concern for depression and suicidal ideations overdose on medications. She was also self harming by cutting herself while she was at the outpatient office. Upon assessment, patient reported that she has been feeling hopeless. She is concerned about her mental health issues and wonders about if she will ever feelbetter. She feels like her depression has been getting worse despite continuingon with her medication. She reported that she feels stuck and feels like nothing will ever improve for her. She reported that she feels helpless and hasalso been engaging in group therapy. She reported that she has not been able tosee a and visual therapist yet. Psychiatric history: Endorses history of depression, anxiety, anorexia, cutting,suicidality Family psychiatric history: Mother: Anxiety, depression, COPD Psychiatric hospitalizations: History of multiple psychiatric hospitalizations Suicide attempts: History of suicide attempts Employment: Unemployed Living situation: Lives with parents Substance use: Uses marijuana Patient was continued on her home medications. Her dose of Pristiq and Latuda were increased duringher hospitalization. She had gradual improvement during her hospitalization. Initially she was verydepressed and tearful on the unit, but this gradually improved. As her hospitalization went on she attended groupsand socialize with peers. She started to show a brighter affect and seem to be in better spirits as time went on. She had 1 incident where she made a sharp object from a plastic utensil. But did not use it to harm herself. On the day of discharge, she stated that she was doing better.She denied any depression or suicidality. She stated that she would follow-up with outpatient services and continue her medications. Treatment team was contacted prior to discharge and she felt that that helped to initiate some hope and make her feel better as well. Time spent discussing smoking cessation with patient: 3 to 10 minutes Condition Condition at Discharge: Stable Status at Discharge Cognitive/behavioral status at discharge: Mental Status Exam: Appearance: grossly normal Mental Status: mental status grossly normal Mood: Euthymic mood Affect: Normal affect Speech and Movement: speech normal, movement normal Attitude: cooperative Thought Process: normal Thought Content: Denied hallucinations, no homicidality and no suicidality Insight: Good Judgment: Good Functional status at discharge: independent ambulation Overall status at discharge: patient is back to baseline Time Spent with Patient Time spent providing/coordinating discharge services (# min): 30 Discharge Plan Discharge Plan Patient Disposition: Home Activity: No Activity Restriction Diet: Regular Additional Instructions: Important Contact Information You can call [facility] at [phone] any timeday or night if you have emergent questions or question regarding discharge instructions. If at anytime you are feeling an increase inyour psychiatric symptoms, call your physician or behavioral healthcare provider. If any time you have thoughts of harming yourself or others contact one of the following: Call (available 02/12) Crisis Text Line (available 02/12) text 4HOPE to [phone] [facility] Hope Line (available 8 a.m. Midnight) call [phone] ([phone]) Instructions: Know your Meds Prescriptions: New nicotine (polacrilex) 2 mg Gum 2 mg buccal Q2HR PRN (Reason: Nicotine Cravings) Qty: 40 0RF lurasidone 40 mg Tablet 40 mg PO DAILY.WITH.SUPPER 14 Days Qty: 14 1RF desvenlafaxine succinate [Pristiq] 100 mg tablet extended release 24 hr 100 mg PO DAILY Qty: 14 1RF Continued budesonide-formoterol [Symbicort] 160-4.5 mcg/actuation HFA aerosol inhaler 1 inh inhalation BID Qty: 10.2 0RF albuterol sulfate 90 mcg/actuation HFA aerosol inhaler 2 inh INHALATION Q4-6H PRN (Reason: shortness of breath or wheezing) Qty: 18 0RF Rx Instructions: administer with spacer trazodone 50 mg tablet 50 mg PO HS PRN (Reason: sleep) naltrexone 50 mg Tablet 50 mg PO DAILY Qty: 30 0RF melatonin 5 mg Tablet 5 mg PO QHS Qty: 30 0RF Discontinued lurasidone 20 mg Tablet 20 mg PO DAILY.WITH.SUPPER 30 Days Qty: 30 0RF desvenlafaxine succinate 50 mg Tablet Extended Release 24 Hr 50 mg PO DAILY Qty: 30 0RF Follow Up: [facility] [Outside] - 07/19/24 (key account manager will call you tomorrow, Wednesday 07/19. If you miss this call please call back as soon as possible.) Letty Torres NP-C [Primary Care Provider] - (Call for any medical needs.) Exam Physical Exam Vital Signs: Temp Pulse Resp BP Pulse Ox O2 Del Method 98.1 F 75 18 139/91 97 Room Air 07/18/24 07:24 07/18/24 07:24 07/18/24 07:24 07/18/24 07:24 07/18/24 07:24 07/18/24 07:24 Documented By: Brent Simmons MD 07/18/24 1127 Signed By: 07/18/24 1133 [facility]03-08-2025 Progress note Author Brent Simmons [facility] Note Date/Time July 17, 2024 10:5 5am [facility] [address] [place] [address] Psychiatry Progress Note Signed Patient: Roshan Willingham MR#: [id number] : 1990 Acct:[id number] Age/Sex: 33 / F Adm Date: 5 Loc: Room: [address] [place] [address] Type : ADM IN Attending Dr: Brent Simmons MD Copies to: ~ Date of Service: 07/17/2024 Subjective Subjective Narrative: Ms. Willingham reported that she feels a bit depressed today. She stated that she has been having intrusive thoughts of hurting herself. She stated that she alsohas been having some suicidal thoughts. She reported that she tolerated the dose of Pristiq today. Mental Status Exam: Appearance: grossly normal Mental Status: mental status grossly normal Mood: dysthymic mood Affect: Dysphoric affect Speech and Movement: speech normal, movement normal Attitude: cooperative Thought Process: normal Thought Content: no hallucinations, no homicidality and reported suicidality Insight: fair Judgment: fair Exam Physical Exam Vital Signs: Temp Pulse Resp BP Pulse Ox O2 Del Method 97.7 F 62 18 142/96 H 96 Room Air 07/17/24 07:30 07/17/24 07:30 07/17/24 07:30 07/17/24 07:30 07/17/24 07:30 07/17/24 07:30 Abnormal Involuntary Movement Dental Status Are dentures usually worn?: No Assessment/Plan Assessment/Plan (1) Bipolar disease, chronic: (2) Generalized anxiety disorder: Plan Reporting intrusive thoughts of self-harm and suicidality Continue Pristiq 100 mg Continue Latuda 40 mg with dinner Continue to monitor mental status Encourage group participation and medication compliance Risk benefits alternatives explained Documented By: Brent Simmons MD 07/17/24 1151 Signed By: <Electronically signed by Brent Simmons MD> 07/17/24 1157 [facility] Work Phone: 1(616) 689-628303-08-2025 [place] [address] Psychiatry Progress Note Signed Patient: Roshan Willingham MR#: [id number] : 1990 Acct:[id number] Age/Sex: 33 / F Adm Date: 5 Loc: Room: [address] [place] [address] Type : ADM IN Attending Dr: Brent Simmons MD Copies to: ~ Date of Service: 07/17/2024 Subjective Subjective Narrative: Ms. Willingham reported that she feels a bit depressed today. She stated that she has been having intrusive thoughts of hurting herself. She stated that she alsohas been having some suicidal thoughts. She reported that she tolerated the dose of Pristiq today. Mental Status Exam: Appearance: grossly normal Mental Status: mental status grossly normal Mood: dysthymic mood Affect: Dysphoric affect Speech and Movement: speech normal, movement normal Attitude: cooperative Thought Process: normal Thought Content: no hallucinations, no homicidality and reported suicidality Insight: fair Judgment: fair Exam Physical Exam Vital Signs: Temp Pulse Resp BP Pulse Ox O2 Del Method 97.7 F 62 18 142/96 H 96 Room Air 07/17/24 07:30 07/17/24 07:30 07/17/24 07:30 07/17/24 07:30 07/17/24 07:30 07/17/24 07:30 Abnormal Involuntary Movement Dental Status Are dentures usually worn?: No Assessment/Plan Assessment/Plan (1) Bipolar disease, chronic: (2) Generalized anxiety disorder: Plan Reporting intrusive thoughts of self-harm and suicidality Continue Pristiq 100 mg Continue Latuda 40 mg with dinner Continue to monitor mental status Encourage group participation and medication compliance Risk benefits alternatives explained Documented By: Brent Simmons MD 07/17/24 1154 Signed By: 07/17/24 1155 [facility]03-07-2025 Progress note Author Brent Simmons [facility] Note Date/Time July 16, 2024 1:19 pm [facility] [address] [place] [address] Psychiatry Progress Note Signed Patient: Roshan Willingham MR#: [id number] : 1990 Acct:[id number] Age/Sex: 33 / F Adm Date: 5 Loc: Room: 0L9813-0 Type : ADM IN Attending Dr: Brent Simmnos MD Copies to: ~ Date of Service: 07/16/2024 Subjective Subjective Narrative: Ms. Willingham reported that she is struggling today. She stated that she has been very tearful. She rates her depression and anxiety as 8 out of 10. She stated that she has been having urges for self-harm. She stated that she feels like she is more depressed right now compared to yesterday. Mental Status Exam: Appearance: grossly normal Mental Status: mental status grossly normal Mood: Improving mood Affect: Improving affect Speech and Movement: speech normal, movement normal Attitude: cooperative Thought Process: normal Thought Content: Denied hallucinations, no homicidality, improving suicidality Insight: fair Judgment: fair Exam Physical Exam Vital Signs: Temp Pulse Resp BP Pulse Ox O2 Del Method 98.1 F 85 12 130/90 97 Room Air 07/16/24 07:30 07/16/24 07:30 07/16/24 07:30 07/16/24 07:30 07/16/24 07:30 07/15/24 19:57 Abnormal Involuntary Movement Dental Status Are dentures usually worn?: No Assessment/Plan Assessment/Plan (1) Bipolar disease, chronic: (2) Generalized anxiety disorder: Plan Patient reporting feeling more depressed than she did previously and having thoughts of self-harm Increase Pristiq 100 mg Continue Latuda 40 mg with dinner Continue to monitor mental status Encourage group participation and medication compliance Risk benefits alternatives explained Documented By: Brent Simmons MD 07/16/24 1411 Signed By: <Electronically signed by Brent Simmons MD> 07/16/24 1419 [facility] Work Phone: 1(953) 717-568203-07-2025 [place] [id number] Psychiatry Progress Note Signed Patient: Roshan Willingham MR#: [id number] : 1990 Acct:[id number] Age/Sex: 33 / F Adm Date: 5 Loc: Room: [address] [place] [address] Type : ADM IN Attending Dr: Brent Simmons MD Copies to: ~ Date of Service: 07/16/2024 Subjective Subjective Narrative: Ms. Willingham reported that she is struggling today. She stated that she has been very tearful. She rates her depression and anxiety as 8 out of 10. She stated that she has been having urges for self-harm. She stated that she feels like she is more depressed right now compared to yesterday. Mental Status Exam: Appearance: grossly normal Mental Status: mental status grossly normal Mood: Improving mood Affect: Improving affect Speech and Movement: speech normal, movement normal Attitude: cooperative Thought Process: normal Thought Content: Denied hallucinations, no homicidality, improving suicidality Insight: fair Judgment: fair Exam Physical Exam Vital Signs: Temp Pulse Resp BP Pulse Ox O2 Del Method 98.1 F 85 12 130/90 97 Room Air 07/16/24 07:30 07/16/24 07:30 07/16/24 07:30 07/16/24 07:30 07/16/24 07:30 07/15/24 19:57 Abnormal Involuntary Movement Dental Status Are dentures usually worn?: No Assessment/Plan Assessment/Plan (1) Bipolar disease, chronic: (2) Generalized anxiety disorder: Plan Patient reporting feeling more depressed than she did previously and having thoughts of self-harm Increase Pristiq 100 mg Continue Latuda 40 mg with dinner Continue to monitor mental status Encourage group participation and medication compliance Risk benefits alternatives explained Documented By: Brent Simmons MD 07/16/24 1411 Signed By: 07/16/24 1419 [facility]03-06-2025 Progress note Author Brent Simmons [facility] Note Date/Time July 15, 2024 1:21 pm [facility] [address] [place], [place] [id number] Psychiatry Progress Note Signed Patient: Roshan Willingham MR#: [id number] : 1990 Acct:[id number] Age/Sex: 33 / F Adm Date: 5 Loc: Room: 6I2849-6 Type : ADM IN Attending Dr: Brent Simmons MD Copies to: ~ Date of Service: 07/15/2024 Subjective Subjective Narrative: Ms. Willingham reported that she slept okay overnight. She is tolerating her medications. She reported still having some suicidal thoughts. Her appetite islittle bit better as well. She did express interest in attending groups. Mental Status Exam: Appearance: grossly normal Mental Status: mental status grossly normal Mood: Improving mood Affect: Improving affect Speech and Movement: speech normal, movement normal Attitude: cooperative Thought Process: normal Thought Content: Denied hallucinations, no homicidality, improving suicidality Insight: fair Judgment: fair Exam Physical Exam Vital Signs: Temp Pulse Resp BP Pulse Ox O2 Del Method 97.9 F 64 16 130/81 98 Room Air 07/15/24 07:30 07/15/24 07:30 07/15/24 07:30 07/15/24 07:30 07/15/24 07:30 07/15/24 07:30 Objective Labs Labs: Abnormal Labs 07/15/24 05:27 LDL Cholesterol, Calc 119 H 25-OH Vitamin D Total 14.2 L Abnormal Involuntary Movement Dental Status Are dentures usually worn?: No Assessment/Plan Assessment/Plan (1) Bipolar disease, chronic: (2) Generalized anxiety disorder: Plan Patient reported some minor improvement Restart Pristiq 50 mg daily, Latuda 40 mg with dinner Continue to monitor mental status Encourage group participation and medication compliance Risk benefits alternatives explained Documented By: Brent Simmons MD 07/15/241419 Signed By: <Electronically signed by Brent Simmons MD> 07/15/24 1421 [facility] Work Phone: 1(915) 369-181703-06-2025 History and physical note Author Brent Simmons [facility] Note Date/Time July 15, 2024 1:20 pm [facility] [address] [place] [address] Psychiatry H&P Signed Patient: Roshan Willingham MR#: [id number] : 1990 Acct:[id number] Age/Sex: 33 / F Adm Date: 5 Loc: 1S Room: 5Y4250-2 Type: ADM IN Attending Dr: Brent Simmons MD Copies to: MD Letty Sanchez~ Date of Service: 07/14/2024 HPI History of Present Illness History of present illness: Ms. Willingham is a 33 year old female who presented due to concern for depression and suicidal ideations overdose on medications. She was also self harming by cutting herself while she was at the outpatient office. Upon assessment, patient reported that she has been feeling hopeless. She is concerned about her mental health issues and wonders about if she will ever feelbetter. She feels like her depression has been getting worse despite continuingon with her medication. She reported that she feels stuck and feels like nothing will ever improve for her. She reported that she feels helpless and hasalso been engaging in group therapy. She reported that she has not been able tosee a and visual therapist yet. Psychiatric history: Endorses history of depression, anxiety, anorexia, cutting,suicidality Family psychiatric history: Mother: Anxiety, depression, COPD Psychiatric hospitalizations: History of multiple psychiatric hospitalizations Suicide attempts: History of suicide attempts Employment: Unemployed Living situation: Lives with parents [...] Denies abnormal movements Psychiatric: Reports depression and suicidal ideation Physical exam: Const: cooperative Nutritional Appearance: Overweight Orientation: alert, awake and oriented x3 HEENT: [...] Skin: no rashes or lesions noted Neuro: CNI: Normal olfaction CNI: normal olfaction CNII: Visual stover intact, CNIII,IV,: EOM intact, no nystagmus. Pupils equal, round, reactive to light and accommodation, CNV: Sensation intact to light touch, CNVII: Raises eyebrows, smile/frown, puff out cheeks symmetrically, CNVIII: Hearing intact bilaterally, CNIX,X: Voice normal, soft palate elevation normal, symmetrical, CNXI: Shoulder shrug strong, equal bilaterally, CNXII: Tongue protrusion midline, movement symmetrical. Extrem: normal to inspection and full ROM Mental Status Exam: Appearance: grossly normal Mental Status: mental status grossly normal Mood: dysthymic mood Affect: dysphoric affect Speech and Movement: speech normal, movement normal Attitude: cooperative Thought Process: normal Thought Content: Denied hallucinations, no homicidality, reported suicidality Insight: fair Judgment: fair [facility] Medical History Borderline personality disorder Anorexia Pneumonia Asthma Eating disorder bulimia/anorexia Overdose PSYCH MEDICATION OVERDOSE JULY 2019, 2 OTHER OD'S IN PAST ON PSYCH MEDICATION Depression Anxiety Bruno disease History of kidney infection BOUCHRA (acute kidney injury) Surgical History History of gastrostomy as an History of neck surgery CRICOID SPLIT A BABY Family History Mother Anxiety Depression COPD (chronic obstructive pulmonary disease) Myocardial infarction Mother No problems noted. Social History Smoking Status: Light tobacco smoker Tobacco Type: e-cigarettes Substance Use Type: Marijuana Substance Abuse Comment: Last used yesterday Social History Comments: lives with grandparents Meds Medications and Allergies Allergies cranberry Allergy (Verified 04/01/24 14:24) Hives Penicillins Allergy (Verified 04/01/24 14:24) Rash prochlorperazine (From Compazine) Adverse Reaction (Verified 04/01/24 14:24) Irritable apple Allergy (Uncoded 01/12/24 21:25) Unknown Reaction Home Medications albuterol sulfate 90 mcg/actuation aerosol inhaler 2 inh inhalation Q4-6H PRN shortness of breath or wheezing #18 grams 07/24/22 [Rx Confirmed 07/14/24] budesonide-formoterol HFA 160 mcg-4.5 mcg/actuation aerosol inhaler (Symbicort) 1 inh inhalation BID #10.2 grams 07/24/22 [Rx Confirmed 07/14/24] desvenlafaxine succinate 50 mg tablet,extended release 24 hr 50 mg PO DAILY #30 tabs 05/24/24 [Rx Confirmed 07/14/24] melatonin 5 mg tablet 5 mg PO QHS #30 tabs 05/24/24 [Rx Confirmed 07/14/24] naltrexone 50 mg tablet 50 mg PO DAILY #30 tabs 05/24/24 [Rx Confirmed 07/14/24] lurasidone 20 mg tablet 20 mg PO DAILY.WITH.SUPPER 30 days #30 tabs 06/18/24 [Rx Confirmed 07/14/24] trazodone 50 mg tablet 50 mg PO HS PRN sleep 07/14/24 [History Confirmed 07/14/24] Exam Physical Exam Vital Signs: Temp Pulse Resp BP Pulse Ox O2 Del Method 98.5 F 89 16 130/85 95 Room Air 07/14/24 07:30 07/14/24 07:30 07/14/24 02:30 07/14/24 07:30 07/14/24 07:30 07/14/24 07:30 Abnormal Involuntary Movement Dental Status Are dentures usually worn?: No Assessment/Plan (1) Bipolar disease, chronic: (2) Generalized anxiety disorder: Plan Patient presenting due to concern for depression and suicidal ideation. She also engaged in some self-harm Restart Pristiq 50 mg daily, increase Latuda 40 mg with dinner Continue to monitor mental status Encourage group participation and medication compliance Risk benefits alternatives explained Documented By: Brent Simmons MD 07/14/24 1006 Signed By: <Electronically signed by Brent Simmons MD> 07/15/24 7552 [facility] Work Phone: 1(782) 646-447403-06-2025 [place] [id number] Psych[place] Progress Note Signed Patient: Roshan Willingham MR#: [id number] : 1990 Acct:[id number] Age/Sex: 33 / F Adm Date: 5 Loc: 1S Room: [address] [place] [address] Type : ADM IN Attending Dr: Brent Simmons MD Copies to: ~ Date of Service: 07/15/2024 Subjective Subjective Narrative: Ms. Willingham reported that she slept okay overnight. She is tolerating her medications. She reported still having some suicidal thoughts. Her appetite islittle bit better as well. She did express interest in attending groups. Mental Status Exam: Appearance: grossly normal Mental Status: mental status grossly normal Mood: Improving mood Affect: Improving affect Speech and Movement: speech normal, movement normal Attitude: cooperative Thought Process: normal Thought Content: Denied hallucinations, no homicidality, improving suicidality Insight: fair Judgment: fair Exam Physical Exam Vital Signs: Temp Pulse Resp BP Pulse Ox O2 Del Method 97.9 F 64 16 130/81 98 Room Air 07/15/24 07:30 07/15/24 07:30 07/15/24 07:30 07/15/24 07:30 07/15/24 07:30 07/15/24 07:30 Objective Labs Labs: Abnormal Labs 07/15/24 05:27 LDL Cholesterol, Calc 119 H 25-OH Vitamin D Total 14.2 L Abnormal Involuntary Movement Dental Status Are dentures usually worn?: No Assessment/Plan Assessment/Plan (1) Bipolar disease, chronic: (2) Generalized anxiety disorder: Plan Patient reported some minor improvement Restart Pristiq 50 mg daily, Latuda 40 mg with dinner Continue to monitor mental status Encourage group participation and medication compliance Risk benefits alternatives explained Documented By: Brent Simmons MD 07/15/24 1420 Signed By: 07/15/24 1421 [facility]03-06-2025 [place] [address] Psychiatry H&P Signed Patient: Roshan Willingham MR#: [id number] : 1990 Acct:[id number] Age/Sex: 33 / F Adm Date: 5 Loc: 1S Room: [address] [place] [address] Type: ADM IN Attending Dr: Brent Simmons MD Copies to: MD Letty Sanchez RESOURCE EFFICIENCY MANAGER-C~ Date of Service: 07/14/2024 HPI History of Present Illness History of present illness: Ms. Willingham is a 33 year old female who presented due to concern for depression and suicidal ideations overdose on medications. She was also self harming by cutting herself while she was at the outpatient office. Upon assessment, patient reported that she has been feeling hopeless. She is concerned about her mental health issues and wonders about if she will ever feelbetter. She feels like her depression has been getting worse despite continuingon with her medication. She reported that she feels stuck and feels like nothing will ever improve for her. She reported that she feels helpless and hasalso been engaging in group therapy. She reported that she has not been able tosee a and visual therapist yet. Psychiatric history: Endorses history of depression, anxiety, anorexia, cutting,suicidality Family psychiatric history: Mother: Anxiety, depression, COPD Psychiatric hospitalizations: History of multiple psychiatric hospitalizations Suicide attempts: History of suicide attempts Employment: Unemployed Living situation: Lives with parents [...] Denies abnormal movements Psychiatric: Reports depression and suicidal ideation Physical exam: Const: cooperative Nutritional Appearance: Overweight Orientation: alert, awake and oriented x3 HEENT: [...] Skin: no rashes or lesions noted Neuro: CNI: Normal olfaction CNI: normal olfaction CNII: Visual stover intact, CNIII,IV,: EOM intact, no nystagmus. Pupils equal, round, reactive to light and accommodation, CNV: Sensation intact to light touch, CNVII: Raises eyebrows, smile/frown, puff out cheeks symmetrically, CNVIII: Hearing intact bilaterally, CNIX,X: Voice normal, soft palate elevation normal, symmetrical, CNXI: Shoulder shrug strong, equal bilaterally, CNXII: Tongue protrusion midline, movement symmetrical. Extrem: normal to inspection and full ROM Mental Status Exam: Appearance: grossly normal Mental Status: mental status grossly normal Mood: dysthymic mood Affect: dysphoric affect Speech and Movement: speech normal, movement normal Attitude: cooperative Thought Process: normal Thought Content: Denied hallucinations, no homicidality, reported suicidality Insight: fair Judgment: fair [facility] Medical History Borderline personality disorder Anorexia Pneumonia Asthma Eating disorder bulimia/anorexia Overdose PSYCH MEDICATION OVERDOSE JULY 2019, 2 OTHER OD'S IN PAST ON PSYCH MEDICATION Depression Anxiety Bruno disease History of kidney infection BOUCHRA (acute kidney injury) Surgical History History of gastrostomy as an infant History of neck surgery CRICOID SPLIT A BABY Family History Mother Anxiety Depression COPD (chronic obstructive pulmonary disease) Myocardial infarction Mother No problems noted. Social History Smoking Status: Light tobacco smoker Tobacco Type: e-cigarettes Substance Use Type: Marijuana Substance Abuse Comment: Last used yesterday Social History Comments: lives with grandparents Meds Medications and Allergies Allergies cranberry Allergy (Verified 04/01/24 14:24) Hives Penicillins Allergy (Verified 04/01/24 14:24) Rash prochlorperazine (From Compazine) Adverse Reaction (Verified 04/01/24 14:24) Irritable apple Allergy (Uncoded 01/12/24 21:25) Unknown Reaction Home Medications albuterol sulfate 90 mcg/actuation aerosol inhaler 2 inh inhalation Q4-6H PRN shortness of breath or wheezing #18 grams 07/24/22 [Rx Confirmed 07/14/24] budesonide-formoterol HFA 160 mcg-4.5 mcg/actuation aerosol inhaler (Symbicort) 1 inh inhalation BID #10.2 grams 07/24/22 [Rx Confirmed 07/14/24] desvenlafaxine succinate 50 mg tablet,extended release 24 hr 50 mg PO DAILY #30 tabs 05/24/24 [Rx Confirmed 07/14/24] melatonin 5 mg tablet 5 mg PO QHS #30 tabs 05/24/24 [Rx Confirmed 07/14/24] naltrexone 50 mg tablet 50 mg PO DAILY #30 tabs 05/24/24 [Rx Confirmed 07/14/24] lurasidone 20 mg tablet 20 mg PO DAILY.WITH.SUPPER 30 days #30 tabs 06/18/24 [Rx Confirmed 07/14/24] trazodone 50 mg tablet 50 mg PO HS PRN sleep 07/14/24 [History Confirmed 07/14/24] Exam Physical Exam Vital Signs: Temp Pulse Resp BP Pulse Ox O2 Del Method 98.5 F 89 16 130/85 95 Room Air 07/14/24 07:30 07/14/24 07:30 07/14/24 02:30 07/14/24 07:30 07/14/24 07:30 07/14/24 07:30 Abnormal Involuntary Movement Dental Status Are dentures usually worn?: No Assessment/Plan (1) Bipolar disease, chronic: (2) Generalized anxiety disorder: Plan Patient presenting due to concern for depression and suicidal ideation. She also engaged in some self-harm Restart Pristiq 50 mg daily, increase Latuda 40 mg with dinner Continue to monitor mental status Encourage group participation and medication compliance Risk benefits alternatives explained Documented By: Brent Simmons MD 07/14/24 1006 Signed By: 07/15/24 1420 [facility]03-05-2025 Evaluation note* Diagnosis Onset Date Resolution Status Admit Date Bipolar disease, chronic acute July 14, 2024 2:05am Generalized anxiety disorder acute July 14, 2024 2:05am Bipolar affect, depressed acute September 09, 2024 4:31pm Bipolar depression acute September 4:31pm Borderline personality disorder acut e September 09, 2024 4:31pm [facility] Work Phone: 1(253) 639-632103-04-2025 History of Present illness Narrative* Calvin Shaikh RN - 07/13/2024 6:30 PM EST Nurse was at bedside as a sitter. Nurse noticed patient was anxious and twisting plastic fernandez from dinner tray. Patient then broke plastic spork in half and was using to harm self. Nurse called for another nurse to assist in removing the spork from patient possession. Patient then started crying and scratching self on her left hand, wrist, and forearm. I did notify primary nurse of patient behaviors so she could update the ER doctor. Will continue to monitor patent at bedside. documented in this encounterBon [facility] Discharge summary Author Brent Simmons [facility] Note Date/Time June 18, 2024 1 1:11am [facility] [address] [place] [address] Discharge Summary Signed Patient: Roshan Willingham MR#: [id number] : 1990 Acct:[id number] Age/Sex: 33 / F Adm Date: 5 Loc: Room: [address] [place] [address]: Brent Simmons MD Copies to: MD Letty Sanchez RESOURCE EFFICIENCY MANAGER-C~ Providers Date of Discharge: 06/18/24 Discharging Provider: Brent Simmons Primary Care Provider: Letty Torres Discharge Diagnosis (1) Generalized anxiety disorder: (2) Major depression: (3) Borderline personality disorder: Final Diagnosis Final Discharge Diagnosis: Major depressive disorder Borderline personality disorder Summary Hospital Course Hospital course: Ms. Willingham is a 33 year old female who presented due to concern for depression and suicidal thoughts. Reported that she would overdose or hang herself or cut herself. She started exhibiting some self-harm behavior while she was being assessed Upon assessment, patient reported that she has been dealing with some depressionand suicidal thoughts. She reported that she has impulsive thoughts and when they come she has a difficult time controlling them. She reported that she has been compliant with her medications from her previous hospitalization. However she feels when these thoughts come they are very overwhelming for her. She has been engaging in day treatment as well. She denied current hallucinations at this time. She reported that she has been seeing an outpatient nurse practitioner. Psychiatric history: Endorses history of depression, anxiety, anorexia, cutting,suicidality Family psychiatric history: Mother: Anxiety, depression, COPD Psychiatric hospitalizations: History of multiple psychiatric hospitalizations Suicide attempts: History of suicide attempts Employment: Unemployed Living situation: Lives with parents Substance use: Uses marijuana Patient was continued on Pristiq. Latuda was added to help with impulsive behavior and intrusive thoughts. She tolerated the medication without any problems and did not report any side effects. Her sleep and appetite were normal during her hospitalization. She denied any suicidal thoughts throughout her hospitalization. She felt that her intrusive thoughts were improving. She was looking forward to returning back home with her grandparents who she stated were supportive. On the day of discharge, she reported that she was doing good. She stated that she would follow-up with outpatient services and continue medications. She expressed interest in returning to day treatment. Time spent discussing smoking cessation with patient: 3 to 10 minutes Condition Condition at Discharge: Stable Status at Discharge Cognitive/behavioral status at discharge: Mental Status Exam: Appearance: grossly normal Mental Status: mental status grossly normal Mood: Euthymic mood Affect: Normal affect Speech and Movement: speech normal, movement normal Attitude: cooperative Thought Process: normal Thought Content: Denied hallucinations, no homicidality and no suicidality Insight: Good Judgment: Good Functional status at discharge: independent ambulation Overall status at discharge: patient is back to baseline Time Spent with Patient Time spent providing/coordinating discharge services (# min): 30 Discharge Plan Discharge Plan Patient Disposition: Home Activity: No Activity Restriction Diet: Regular Additional Instructions: Important Contact Information You can call [facility] at [phone] any time day or night if you have emergent questions or question regarding discharge instructions. If at any time you are feeling an increase inyour psychiatric symptoms, call your physician or behavioral healthcare provider. If any time you have thoughts of harming yourself or others contact one of the following: Call 8 (available 02/12) Crisis Text Line (available 02/12) text 4HOPE to [phone] [facility] Hope Line (available 8 a.m. Midnight) call [phone] ([phone]) Regular Diet No Activity Restrictions Instructions: Depression in adults - Discharge instructions, [facility] [place] Instructions, Know your Meds Prescriptions: New nicotine (polacrilex) 2 mg Gum 2 mg buccal Q2H PRN (Reason: Nicotine Cravings) Qty: 20 0RF lurasidone 20 mg Tablet 20 mg PO DAILY.WITH.SUPPER 30 Days Qty: 30 0RF Continued budesonide-formoterol [Symbicort] 160-4.5 mcg/actuation HFA aerosol inhaler 1 inh inhalation BID Qty: 10.2 0RF albuterol sulfate 90 mcg/actuation HFA aerosol inhaler 2 inh INHALATION Q4-6H PRN (Reason: shortness of breath or wheezing) Qty: 18 0RF Rx Instructions: administer with spacer quetiapine 25 mg Tablet 25 mg PO BID 30 Days Qty: 60 0RF trazodone 50 mg Tablet 50 mg PO QHS PRN (Reason: Insomnia) Qty: 30 0RF nicotine (polacrilex) 2 mg Gum 2 mg buccal Q2H PRN (Reason: Nicotine Cravings) Qty: 60 0RF naltrexone 50 mg Tablet 50 mg PO DAILY Qty: 30 0RF desvenlafaxine succinate 50 mg Tablet Extended Release 24 Hr 50 mg PO DAILY Qty: 30 0RF melatonin 5 mg Tablet 5 mg PO QHS Qty: 30 0RF Follow Up: [facility] [Outside] - 06/21/24 (Tax Processor will call you , if you miss this call please return it as soon as possible. Return to Day Treatment on Wednesday 06/21 with usual transportation. June 29 at 2:20 with Nurse and [place]) [facility] [Outside] - 06/21/24 (please plan to return to day treatment at the usual time ) Letty Torres NP-C [Primary Care Provider] - Exam Physical Exam Vital Signs: Temp Pulse Resp BP Pulse Ox O2 Del Method 97.9 F 69 18 137/95 98 Room Air 06/18/24 07:30 06/18/24 07:30 06/18/24 07:30 06/18/24 07:30 06/18/24 07:30 06/18/24 07:30 Documented By: Brent Simmons MD 06/18/24 0959 Signed By: <Electronically signed by Brent Simmons MD> 06/18/[address] [place] [address] Work Phone: 1(152) 323-920702-07-[address] [address] Discharge Summary Signed Patient: Roshan Willingham MR#: [id number] : 1990 Acct:[id number] Age/Sex: 33 / F Adm Date: 5 Loc: 1S Room: 6F4543-[address]: Brent Simmons MD Copies to: MD Letty Sanchez RESOURCE EFFICIENCY MANAGER-C~ Providers Date of Discharge: 06/18/24 Discharging Provider: Brent Simmons Primary Care Provider: Letty Torres Discharge Diagnosis (1) Generalized anxiety disorder: (2) Major depression: (3) Borderline personality disorder: Final Diagnosis Final Discharge Diagnosis: Major depressive disorder Borderline personality disorder Summary Hospital Course Hospital course: Ms. Willingham is a 33 year old female who presented due to concern for depression and suicidal thoughts. Reported that she would overdose or hang herself or cut herself. She started exhibiting some self-harm behavior while she was being assessed Upon assessment, patient reported that she has been dealing with some depressionand suicidal thoughts. She reported that she has impulsive thoughts and when they come she has a difficult time controlling them. She reported that she has been compliant with her medications from her previous hospitalization. However she feels when these thoughts come they are very overwhelming for her. She has been engaging in day treatment as well. She denied current hallucinations at this time. She reported thatshe has been seeing an outpatient nurse practitioner. Psychiatric history: Endorses history of depression, anxiety, anorexia, cutting,suicidality Family psychiatric history: Mother: Anxiety, depression, COPD Psychiatric hospitalizations: History of multiple psychiatric hospitalizations Suicide attempts: History of suicide attempts Employment: Unemployed Living situation: Lives with parents Substance use: Uses marijuana Patient was continued on Pristiq. Latuda was added to help with impulsive behavior and intrusive thoughts. She tolerated the medication without any problems and did not report any side effects. Her sleep and appetite were normal during her hospitalization. She denied any suicidal thoughts throughout her hospitalization. She felt that her intrusive thoughts were improving. She was looking forward to returning back home with her grandparents who she stated were supportive. On the day of discharge, she reported that she was doing good. She stated that she would follow-up with outpatient servicesand continue medications. She expressed interest in returning to day treatment. Time spent discussing smoking cessation with patient: 3 to 10 minutes Condition Condition at Discharge: Stable Status at Discharge Cognitive/behavioral status at discharge: Mental Status Exam: Appearance: grossly normal Mental Status: mental status grossly normal Mood: Euthymic mood Affect: Normal affect Speech and Movement: speech normal, movement normal Attitude: cooperative Thought Process: normal Thought Content: Denied hallucinations, no homicidality and no suicidality Insight: Good Judgment: Good Functional status at discharge: independent ambulation Overall status at discharge: patient is back to baseline Time Spent with Patient Time spent providing/coordinating discharge services (# min): 30 Discharge Plan Discharge Plan Patient Disposition: Home Activity: No Activity Restriction Diet: Regular Additional Instructions: Important Contact Information You can call [facility] at [phone] any timeday or night if you have emergent questions or question regarding discharge instructions. If at anytime you are feeling an increase inyour psychiatric symptoms, call your physician or behavioral healthcare provider. If any time you have thoughts of harming yourself or others contact one of the following: Call (available 02/12) Crisis Text Line (available 02/12) text 4HOPE to [phone] [facility] Hope Line (available 8 a.m. Midnight) call [phone] ([phone]) Regular Diet No Activity Restrictions Instructions: Depression in adults - Discharge instructions, [facility] [place] Instructions, Know your Meds Prescriptions: New nicotine (polacrilex) 2 mg Gum 2 mg buccal Q2H PRN (Reason: Nicotine Cravings) Qty: 20 0RF lurasidone 20 mg Tablet 20 mg PO DAILY.WITH.SUPPER 30 Days Qty: 30 0RF Continued budesonide-formoterol [Symbicort] 160-4.5 mcg/actuation HFA aerosol inhaler 1 inh inhalation BID Qty: 10.2 0RF albuterol sulfate 90 mcg/actuation HFA aerosol inhaler 2 inh INHALATION Q4-6H PRN (Reason: shortness of breath or wheezing) Qty: 18 0RF Rx Instructions: administer with spacer quetiapine 25 mg Tablet 25 mg PO BID 30 Days Qty: 60 0RF trazodone 50 mg Tablet 50 mg PO QHS PRN (Reason: Insomnia) Qty: 30 0RF nicotine (polacrilex) 2 mg Gum 2 mg buccal Q2H PRN (Reason: Nicotine Cravings) Qty: 60 0RF naltrexone 50 mg Tablet 50 mg PO DAILY Qty: 30 0RF desvenlafaxine succinate 50 mg Tablet Extended Release 24 Hr 50 mg PO DAILY Qty: 30 0RF melatonin 5 mg Tablet 5 mg PO QHS Qty: 30 0RF Follow Up: [facility] [Outside] - 06/21/24 (Tax Processor will call you , if you miss this call please return it as soon as possible. Return to Day Treatment on Wednesday 06/21 with usual transportation. June 29 at 2:20 with Nurse and [place]) [facility] [Outside] - 06/21/24 (please plan to return to day treatment at the usual time) Letty Torres NP-C [Primary Care Provider] - Exam Physical Exam Vital Signs: Temp Pulse Resp BP Pulse Ox O2 Del Method 97.9 F 69 18 137/95 98 Room Air 06/18/24 07:30 06/18/24 07:30 06/18/24 07:30 06/18/24 07:30 06/18/24 07:30 06/18/24 07:30 Documented By: Brent Simmons MD 06/18/24 0959 Signed By: 06/18/[address] [place], [place] [id number] Progress note Author Brent Simmons [facility] Note Date/Time June 17, 2024 1 1:19am [facility] [address] [place] [address] Psychiatry Progress Note Signed Patient: Roshan Willingham MR#: [id number] : 1990 Acct:[id number] Age/Sex: 33 / F Adm Date: 5 Loc: Room: 2K6806-2 Type : ADM IN Attending Dr: Brent Simmons MD Copies to: ~ Date of Service: 06/17/2024 Subjective Subjective Narrative: Ms. Willingham reported that she is doing okay today. She stated that she has not had any thoughts of wanting to harm herself. She stated that she slept okay andappetite has been okay. She is tolerating her medications and denied any current side effects. Mental Status Exam: Appearance: grossly normal Mental Status: mental status grossly normal Mood: Improving mood Affect: Improving affect Speech and Movement: speech normal, movement normal Attitude: cooperative Thought Process: normal Thought Content: Denied hallucinations, no homicidality, improving suicidality Insight: fair Judgment: fair Exam Physical Exam Vital Signs: Temp Pulse Resp BP Pulse Ox O2 Del Method 98.2 F 76 16 133/85 96 Room Air 06/17/24 07:28 06/17/24 07:28 06/17/24 07:28 06/17/24 07:28 06/17/24 07:28 06/17/24 07:28 Abnormal Involuntary Movement Dental Status Are dentures usually worn?: No Assessment/Plan Assessment/Plan (1) Generalized anxiety disorder: (2) Major depression: (3) Borderline personality disorder: Plan Patient presenting due to concern for depression and suicidal ideation Restart Pristiq 50 mg daily and Seroquel 25 mg twice a day Will add Latuda 20 mg daily to see if it will help with impulsive behavior. Continue to monitor mental status Encourage group participation and medication compliance Risk benefits alternatives explained Documented By: Brent Simmons MD 06/17/24 1118 Signed By: <Electronically signed by Brent Simmons MD> 06/17/24 [facility] Work Phone: 1(656) 479-338102-06-2025 [place] [address] Psychiatry Progress Note Signed Patient: Roshan Willingham MR#: [id number] : 1990 Acct:[id number] Age/Sex: 33 / F Adm Date: 5 Loc: Room: [address] [place] [address] Type : ADM IN Attending Dr: Brent Simmons MD Copies to: ~ Date of Service: 06/17/2024 Subjective Subjective Narrative: Ms. Willingham reported that she is doing okay today. She stated that she has not had any thoughts of wanting to harm herself. She stated that she slept okay andappetite has been okay. She is tolerating her medications and denied any current side effects. Mental Status Exam: Appearance: grossly normal Mental Status: mental status grossly normal Mood: Improving mood Affect: Improving affect Speech and Movement: speech normal, movement normal Attitude: cooperative Thought Process: normal Thought Content: Denied hallucinations, no homicidality, improving suicidality Insight: fair Judgment: fair Exam Physical Exam Vital Signs: Temp Pulse Resp BP Pulse Ox O2 Del Method 98.2 F 76 16 133/85 96 Room Air 06/17/24 07:28 06/17/24 07:28 06/17/24 07:28 06/17/24 07:28 06/17/24 07:28 06/17/24 07:28 Abnormal Involuntary Movement Dental Status Are dentures usually worn?: No Assessment/Plan Assessment/Plan (1) Generalized anxiety disorder: (2) Major depression: (3) Borderline personality disorder: Plan Patient presenting due to concern for depression and suicidal ideation Restart Pristiq 50 mg daily and Seroquel 25 mg twice a day Will add Latuda 20 mg daily to see if it will help with impulsive behavior. Continue to monitor mental status Encourage group participation and medication compliance Risk benefits alternatives explained Documented By: Brent Simmons MD 06/17/248 Signed By: 06/17/24 1119 [facility]02-05-2025 History and physical note Author Brent Simmons [facility] Note Date/Time June 16, 2024 1 :30pm [facility] [address] [place] [address] Psychiatry H&P Signed Patient: Roshan Willingham MR#: [id number] : 1990 Acct:[id number] Age/Sex: 33 / F Adm Date: 5 Loc: Room: [address] [place] [address] Type: ADM IN Attending Dr: Brent Simmons MD Copies to: MD Letty Sanchez NP-C~ Date of Service: 06/16/2024 HPI History of Present Illness History of present illness: Ms. Willingham is a 33 year old female who presented due to concern for depression and suicidal thoughts. Reported that she would overdose or hang herself or cut herself. She started exhibiting some self-harm behavior while she was being assessed Upon assessment, patient reported that she has been dealing with some depressionand suicidal thoughts. She reported that she has impulsive thoughts and when they come she has a difficult time controlling them. She reported that she has been compliant with her medications from her previous hospitalization. However she feels when these thoughts come they are very overwhelming for her. She has been engaging in day treatment as well. She denied current hallucinations at this time. She reported that she has been seeing an outpatient nurse practitioner. Psychiatric history: Endorses history of depression, anxiety, anorexia, cutting,suicidality Family psychiatric history: Mother: Anxiety, depression, COPD Psychiatric hospitalizations: History of multiple psychiatric hospitalizations Suicide attempts: History of suicide attempts Employment: Unemployed Living situation: Lives with parents [...] Denies abnormal movements Psychiatric: Reports depression and suicidal ideation Physical exam: Const: cooperative Nutritional Appearance: average [...] Skin: no rashes or lesions noted Neuro: CNI: Normal olfaction CNI: normal olfaction CNII: Visual stover intact, CNIII,IV,: EOM intact, no nystagmus. Pupils equal, round, reactive to light and accommodation, CNV: Sensation intact to light touch, CNVII: Raises eyebrows, smile/frown, puff out cheeks symmetrically, CNVIII: Hearing intact bilaterally, CNIX,X: Voice normal, soft palate elevation normal, symmetrical, CNXI: Shoulder shrug strong, equal bilaterally, CNXII: Tongue protrusion midline, movement symmetrical. Extrem: normal to inspection and full ROM Mental Status Exam: Appearance: grossly normal Mental Status: mental status grossly normal Mood: dysthymic mood Affect: dysphoric affect Speech and Movement: speech normal, movement normal Attitude: cooperative Thought Process: normal Thought Content: Denied hallucinations, no homicidality, reported suicidality Insight: fair Judgment: fair [facility] Medical History Borderline personality disorder Anorexia Pneumonia Asthma Eating disorder bulimia/anorexia Overdose PSYCH MEDICATION OVERDOSE JULY 2019, 2 OTHER OD'S IN PAST ON PSYCH MEDICATION Depression Anxiety Bruno disease History of kidney infection BOUCHRA (acute kidney injury) Surgical History History of gastrostomy as an History of neck surgery CRICOID SPLIT A BABY Family History Mother Anxiety Depression COPD (chronic obstructive pulmonary disease) Myocardial infarction Mother No problems noted. Social History Smoking Status: Current every day smoker Tobacco Type: e-cigarettes Substance Use Type: Marijuana Substance Abuse Comment: Last used yesterday Social History Comments: Grandparents Meds Medications and Allergies Allergies cranberry Allergy (Verified 04/01/24 14:24) Hives Penicillins Allergy (Verified 04/01/24 14:24) Rash prochlorperazine (From Compazine) Adverse Reaction (Verified 04/01/24 14:24) Irritable apple Allergy (Uncoded 01/12/24 21:25) Unknown Reaction Home Medications albuterol sulfate 90 mcg/actuation aerosol inhaler 2 inh inhalation Q4-6H PRN shortness of breath or wheezing #18 grams 07/24/22 [Rx Confirmed 06/15/24] budesonide-formoterol HFA 160 mcg-4.5 mcg/actuation aerosol inhaler (Symbicort) 1 inh inhalation BID #10.2 grams 07/24/22 [Rx Confirmed 06/15/24] desvenlafaxine succinate 50 mg tablet,extended release 24 hr 50 mg PO DAILY #30 tabs 05/24/24 [Rx Confirmed 06/15/24] melatonin 5 mg tablet 5 mg PO QHS #30 tabs 05/24/24 [Rx Confirmed 06/15/24] naltrexone 50 mg tablet 50 mg PO DAILY #30 tabs 05/24/24 [Rx Confirmed 06/15/24] nicotine (polacrilex) 2 mg gum 2 mg buccal Q2H PRN Nicotine Cravings #60 ea 05/24/24 [Rx Confirmed 06/15/24] quetiapine 25 mg tablet 25 mg PO BID 30 days #60 tabs 05/24/24 [Rx Confirmed 06/15/24] trazodone 50 mg tablet 50 mg PO QHS PRN Insomnia #30 tabs 05/24/24 [Rx Confirmed 06/15/24] Exam Physical Exam Vital Signs: Temp Pulse Resp BP Pulse Ox O2 Del Method 98.0 F 75 16 131/86 92 L Room Air 06/16/24 07:30 06/16/24 07:30 06/16/24 07:30 06/16/24 07:30 06/16/24 07:30 06/16/24 07:30 Abnormal Involuntary Movement Dental Status Are dentures usually worn?: No Assessment/Plan (1) Generalized anxiety disorder: (2) Major depression: (3) Borderline personality disorder: Plan Patient presenting due to concern for depression and suicidal ideation Restart Pristiq 50 mg daily and Seroquel 25 mg twice a day May consider adjunct treatment encourage patient to consider engaging in therapy Continue to monitor mental status Encourage group participation and medication compliance Risk benefits alternatives explained Documented By: Brent Simmons MD 06/16/24 1326 Signed By: <Electronically signed by Brent Simmons MD> 06/16/24 1330 [facility] Work Phone: 1(468) 609-771602-05-2025 [place] [address] Psychiatry H&P Signed Patient: Roshan Willingham MR#: [id number] : 1990 Acct:[id number] Age/Sex: 33 / F Adm Date: 5 Loc: Room: [address] [place] [address] Type: ADM IN Attending Dr: Brent Simmons MD Copies to: MD Letty Sanchez NP-C~ Date of Service: 06/16/2024 HPI History of Present Illness History of present illness: Ms. Willingham is a 33 year old female who presented due to concern for depression and suicidal thoughts. Reported that she would overdose or hang herself or cut herself. She started exhibiting some self-harm behavior while she was being assessed Upon assessment, patient reported that she has been dealing with some depressionand suicidal thoughts. She reported that she has impulsive thoughts and when they come she has a difficult time controlling them. She reported that she has been compliant with her medications from her previous hospitalization. However she feels when these thoughts come they are very overwhelming for her. She has been engaging in day treatment as well. She denied current hallucinations at this time. She reported thatshe has been seeing an outpatient nurse practitioner. Psychiatric history: Endorses history of depression, anxiety, anorexia, cutting,suicidality Family psychiatric history: Mother: Anxiety, depression, COPD Psychiatric hospitalizations: History of multiple psychiatric hospitalizations Suicide attempts: History of suicide attempts Employment: Unemployed Living situation: Lives with parents [...] Denies abnormal movements Psychiatric: Reports depression and suicidal ideation Physical exam: Const: cooperative Nutritional Appearance: average [...] Skin: no rashes or lesions noted Neuro: CNI: Normal olfaction CNI: normal olfaction CNII: Visual stover intact, CNIII,IV,: EOM intact, no nystagmus. Pupils equal, round, reactive to light and accommodation, CNV: Sensation intact to light touch, CNVII: Raises eyebrows, smile/frown, puff out cheeks symmetrically, CNVIII: Hearing intact bilaterally, CNIX,X: Voice normal, soft palate elevation normal, symmetrical, CNXI: Shoulder shrug strong, equal bilaterally, CNXII: Tongue protrusion midline, movement symmetrical. Extrem: normal to inspection and full ROM Mental Status Exam: Appearance: grossly normal Mental Status: mental status grossly normal Mood: dysthymic mood Affect: dysphoric affect Speech and Movement: speech normal, movement normal Attitude: cooperative Thought Process: normal Thought Content: Denied hallucinations, no homicidality, reported suicidality Insight: fair Judgment: fair [facility] Medical History Borderline personality disorder Anorexia Pneumonia Asthma Eating disorder bulimia/anorexia Overdose PSYCH MEDICATION OVERDOSE JULY 2019, 2 OTHER OD'S IN PAST ON PSYCH MEDICATION Depression Anxiety Bruno disease History of kidney infection BOUCHRA (acute kidney injury) Surgical History History of gastrostomy as an infant History of neck surgery CRICOID SPLIT A BABY Family History Mother Anxiety Depression COPD (chronic obstructive pulmonary disease) Myocardial infarction Mother No problems noted. Social History Smoking Status: Current every day smoker Tobacco Type: e-cigarettes Substance Use Type: Marijuana Substance Abuse Comment: Last used yesterday Social History Comments: Grandparents Meds Medications and Allergies Allergies cranberry Allergy (Verified 04/01/24 14:24) Hives Penicillins Allergy (Verified 04/01/24 14:24) Rash prochlorperazine (From Compazine) Adverse Reaction (Verified 04/01/24 14:24) Irritable apple Allergy (Uncoded 01/12/24 21:25) Unknown Reaction Home Medications albuterol sulfate 90 mcg/actuation aerosol inhaler 2 inh inhalation Q4-6H PRN shortness of breath or wheezing #18 grams 07/24/22 [Rx Confirmed 06/15/24] budesonide-formoterol HFA 160 mcg-4.5 mcg/actuation aerosol inhaler (Symbicort) 1 inh inhalation BID #10.2 grams 07/24/22 [Rx Confirmed 06/15/24] desvenlafaxine succinate 50 mg tablet,extended release 24 hr 50 mg PO DAILY #30 tabs 05/24/24 [Rx Confirmed 06/15/24] melatonin 5 mg tablet 5 mg PO QHS #30 tabs 05/24/24 [Rx Confirmed 06/15/24] naltrexone 50 mg tablet 50 mg PO DAILY #30 tabs 05/24/24 [Rx Confirmed 06/15/24] nicotine (polacrilex) 2 mg gum 2 mg buccal Q2H PRN Nicotine Cravings #60 ea 05/24/24 [Rx Confirmed 06/15/24] quetiapine 25 mg tablet 25 mg PO BID 30 days #60 tabs 05/24/24 [Rx Confirmed 06/15/24] trazodone 50 mg tablet 50 mg PO QHS PRN Insomnia #30 tabs 05/24/24 [Rx Confirmed 06/15/24] Exam Physical Exam Vital Signs: Temp Pulse Resp BP Pulse Ox O2 Del Method 98.0 F 75 16 131/86 92 L Room Air 06/16/24 07:30 06/16/24 07:30 06/16/24 07:30 06/16/24 07:30 06/16/24 07:30 06/16/24 07:30 Abnormal Involuntary Movement Dental Status Are dentures usually worn?: No Assessment/Plan (1) Generalized anxiety disorder: (2) Major depression: (3) Borderline personality disorder: Plan Patient presenting due to concern for depression and suicidal ideation Restart Pristiq 50 mg daily and Seroquel 25 mg twice a day May consider adjunct treatment encourage patient to consider engaging in therapy Continue to monitor mental status Encourage group participation and medication compliance Risk benefits alternatives explained Documented By: Brent Simmons MD 06/16/24 1326 Signed By: 06/16/24 1330 [facility]01-13-2025 [place] [address] Discharge Summary Signed Patient: Roshan Willingham MR#: [id number] : 1990 Acct:[id number] Age/Sex: 33 / F Adm Date: 5 Loc: Room: [address] [place] [address]: Phillip Davis MD Copies to: MD Brent Shell MD [facility]~ Providers Date of Discharge: 05/24/24 Discharging Provider: Brent Simmons Primary Care Provider: Services Family Health Consults: 05/16/24 18:04 Consult to Case Management Routine Comment: CM Reason for Consult: Other Other and/or Abuse/Neglect Consult Reasons: Discharge planning. 05/16/24 18:07 Consult to Case Management Routine Comment: CM Reason for Consult: Other Other and/or Abuse/Neglect Consult Reasons: Wants discharge to maternal grandparents or to fci Discharge Diagnosis (1) Marijuana abuse: (2) Borderline personality disorder: (3) Generalized anxiety disorder: Final Diagnosis Final Discharge Diagnosis: Borderline personality disorder Generalized anxiety disorder Summary Hospital Course Hospital course: Ms. Willingham is a 33 year old female reported history of depression, anxiety and borderline personality disorder who presents for inpatient mission due to feeling suicidal. Reportedly, patient presented from the hospital stating that she is feeling suicidal and struggling with self injurious thoughts. At the time of the interview, she presented as tearful, reports she has been off her meds since February. She states It was a hot mess getting to appointments and getting my meds figured out. She iscurrently following up with private practice therapist in [facility] and stated that they do not see eye to eye. Patient stated that she needs to follow-up with the crisis center to ensure her stability. Patient is well-known to myself as I had previously treated her in the outpatient [facility] counseling recovery. She has significant eating disorders and very poor impulse control. Unfortunatelythereis no medication that is going to treat that. The best evidence treatment requires extensive DBT and the long-term process. Her insight is limited about that as she is struggling with attention seeking behavior most of the time. Shestates she thinks the meds she was on previously were helping.Patient states her parents are the opposite of supportive and my mom makes me feel like I'mthe worst person in the world. She states that her maternal grandparents are somewhat supportive. She states her grandparents will let her stay with them upon discharge, but she is also interested in discharge to a fci. She rates her depression at 10 out of 10 with 10 being the worst. She has superficial cuts on her left hand, and she scratched her right wrist with a pop tab. Patient denies illegal drug use. She was positive for THC and states she also vapes but hasn't done that for 6 days. She denies ETOH use. Patient states she is applying for disability. She indicated that she was stayingat a shelterfor some time and felt it was not a supportive environment. Important to mention the patient required IM injection since her admission to [facility]. due to agitation. She is also on level 2 suicide watch due to self-injurious tendency and cannot contract for safety. Patient identified history of unstable relationships that might contribute to intense, highly changeable moods that can last for several days or for just a few hours. A persistent fear of abandonmentand rejection, including extreme emotional reactions to real and even perceived abandonment Patient reports a suicide attempt 2-3 years ago. She stated now that she is suicidal but it's gonebeyond that because I genuinely want to do it. The thoughts are going out of control. Patient reports a medical history of asthma. As an she had a gastronomy tube and cricoid split. Patient was restarted on Pristiq which she is tolerated in the past and had goodbenefit from. She tolerated the medication and did not report any side effects. She had gradual improvement of her symptoms of depression and suicidality. Shedid not exhibit any behavior concerning for suicidality during her hospital course. She did not have any conflict with peers or staff. She attended groupsand seemed to socialize with peers appropriately. She was gradually improvementof her symptoms during her hospitalization. Her mood lability improved as well and she seemed to receive benefit from the medication. On the day of discharge,she reported she is feeling better. She denied any depression or suicidality. She was comfortable with the discharge plan home and following up with outpatient services. Time spent discussing smoking cessation with patient: 3 to 10 minutes Condition Condition at Discharge: Stable Status at Discharge Cognitive/behavioral status at discharge: Mental Status Exam: Appearance: grossly normal Mental Status: mental status grossly normal Mood: Euthymic mood Affect: Normal affect Speech and Movement: speech normal, movement normal Attitude: cooperative Thought Process: normal Thought Content: Denied hallucinations, no homicidality and no suicidality Insight: Good Judgment: Good Functional status at discharge: independent ambulation Overall status at discharge: patient is back to baseline Time Spent with Patient Time spent providing/coordinating discharge services (# min): 30 Discharge Plan Discharge Plan Patient Disposition: Home Activity: No Activity Restriction Diet: Regular Additional Instructions: Important Contact Information You can call [facility] at [phone] any timeday or night if you have emergent questions or question regarding discharge instructions. If at anytime you are feeling an increase inyour psychiatric symptoms, call your physician or behavioral healthcare provider. If any time you have thoughts of harming yourself or others contact one of the following: Call (available 02/12) Crisis Text Line (available 02/12) text 4HOPE to [phone] [facility] Line (available 8 a.m. Midnight) call [phone]) Instructions: Depression in adults - Discharge instructions, [facility] DC Instructions, Know your Meds Prescriptions: New quetiapine 25 mg Tablet 25 mg PO BID 30 Days Qty: 60 0RF trazodone 50 mg Tablet 50 mg PO QHS PRN (Reason: Insomnia) Qty: 30 0RF nicotine (polacrilex) 2 mg Gum 2 mg buccal Q2H PRN (Reason: Nicotine Cravings) Qty: 60 0RF naltrexone 50 mg Tablet 50 mg PO DAILY Qty: 30 0RF desvenlafaxine succinate 50 mg Tablet Extended Release 24 Hr 50 mg PO DAILY Qty: 30 0RF melatonin 5 mg Tablet 5 mg PO QHS Qty: 30 0RF Continued budesonide-formoterol [Symbicort] 160-4.5 mcg/actuation HFA aerosol inhaler 1 inh inhalation BID Qty: 10.2 0RF albuterol sulfate 90 mcg/actuation HFA aerosol inhaler 2 inh INHALATION Q4-6H PRN (Reason: shortness of breath or wheezing) Qty: 18 0RF Rx Instructions: administer with spacer Discontinued prednisone 20 mg tablet 20 mg PO .COMPLEX Qty: 18 0RF Rx Instructions: Take 3 tabs po daily x 3 days, then take 2 tabs po daily x 3 days, then take 1 tab po daily x 3 days. Follow Up: [facility] [Other] ( Call at least 48 hours in advance to schedule medical transportation. ) [facility] [Outside] - 05/25/24 ([employer] will call you. If you miss this call please return it as soon as possible.) [facility] [Primary Care Provider] - (See for any medical needs. ) Exam Physical Exam Vital Signs: Temp Pulse Resp BP Pulse Ox O2 Del Method 97.6 F 58 L 18 117/81 96 Room Air 05/24/24 07:30 05/24/24 07:30 05/24/24 07:30 05/24/24 07:30 05/24/24 07:30 05/24/24 07:30 Documented By: Brent Simmons MD 05/24/24 1047 Signed By: 05/24/24 1203 [facility]01-12-2025 Progress note Author Phillip arriaza [facility] Note Date/Time May 23, 2024 6 :42am [facility] [address] [place] [address] Psychiatry Progress Note Signed Patient: Roshan Willingham MR#: [id number] : 1990 Acct:[id number] Age/Sex: 33 / F Adm Date: 5 Loc: Room: [address] [place] [address] Type : ADM IN Attending Dr: Phillip Davis MD Copies to: ~ Date of Service: 05/23/2024 Subjective Subjective Narrative: Ms. Willingham said she had a good day with peers on the unit. She said we good laughter. She talked about having weird dreams yesterday which were stressful. She is planning on leaving tomorrow and going to her grand parents house. She said they are more supportive than her parents. She is tolerating Naltrexone which may help with self injurious behaviors. Anxiety is rated her at 2 out of 10 with 10 being the worst. Mental Status: mental status grossly normal Mood: Good Affect: mood congruent affect Speech and Movement: speech and movement normal and speech clear Attitude: cooperative Thought Process: normal Thought Content: Denied hallucinations, no homicidality and no suicidality Insight: Fair Judgment: Fair Exam Physical Exam Vital Signs: Temp Pulse Resp BP Pulse Ox O2 Del Method 98.0 F 85 16 132/84 95 Room Air 05/22/24 20:16 05/22/24 20:16 05/22/24 20:16 05/22/24 20:16 05/22/24 20:16 05/22/24 20:16 Abnormal Involuntary Movement Dental Status Are dentures usually worn?: No Assessment/Plan Assessment/Plan (1) Marijuana abuse: (2) Borderline personality disorder: (3) Generalized anxiety disorder: Plan Patient reports feeling better and is looking forward to attending day treatmentafter her discharge. She will discuss her goals with case management. Continue Melatonin 5 mg PO HS for insomnia, Pristiq 50 mg p.o. daily and Seroquel 25 mg p.o. twice daily Will Naltrexone to 50 mg PO q daily. Prefers oral treatment over injection Typical short- and long-term side effects of the proposed medication regimen, including contraindications and clinically significant interactions, were discussed with the patient. I gave examples of side effects such as but not limited to sedation, movement disorders (TD, EPS), weight gain, and appetite changes and advised the patient not to drive while taking these meds. We also discussed risk of overdose with this current med regimen. Targeted symptoms and signs, possible therapeutic benefit, side effect and risks No abnormal movements noted on exam. AIMS is Zero. Involve friends/family members if applicable to coordinate care and ensure appropriate outpatient appointments are scheduled prior to discharge. I have reviewed evaluations by other providers (ER notes, nurses and staff) Documented By: Phillip Davis MD 5 0640 Signed By: <Electronically signed by Phillip Davis MD> 05/23/24 0642 [facility] Work Phone: 1(993) 252-567301-12-2025 [place] [address] Psychiatry Progress Note Signed Patient: Roshan Willingham MR#: [id number] : 1990 Acct:[id number] Age/Sex: 33 / F Adm Date: 5 Loc: Room: [address] [place] [address] Type : ADM IN Attending Dr: Phillip Davis MD Copies to: ~ Date of Service: 05/23/2024 Subjective Subjective Narrative: Ms. Willingham said she had a good day with peers on the unit. She said we good laughter. She talked about having weird dreams yesterday which were stressful. She is planning on leaving tomorrow and going to her grand parents house. She said they are more supportive than her parents. She is tolerating Naltrexone which may help with self injurious behaviors. Anxiety is rated her at 2 out of 10 with 10 being the worst. Mental Status: mental status grossly normal Mood: Good Affect: mood congruent affect Speech and Movement: speech and movement normal and speech clear Attitude: cooperative Thought Process: normal Thought Content: Denied hallucinations, no homicidality and no suicidality Insight: Fair Judgment: Fair Exam Physical Exam Vital Signs: Temp Pulse Resp BP Pulse Ox O2 Del Method 98.0 F 85 16 132/84 95 Room Air 05/22/24 20:16 05/22/24 20:16 05/22/24 20:16 05/22/24 20:16 05/22/24 20:16 05/22/24 20:16 Abnormal Involuntary Movement Dental Status Are dentures usually worn?: No Assessment/Plan Assessment/Plan (1) Marijuana abuse: (2) Borderline personality disorder: (3) Generalized anxiety disorder: Plan Patient reports feeling better and is looking forward to attending day treatmentafter her discharge. She will discuss her goals with case management. Continue Melatonin 5 mg PO HS for insomnia, Pristiq 50 mg p.o. daily and Seroquel 25 mg p.o. twice daily Will Naltrexone to 50 mg PO q daily. Prefers oral treatment over injection Typical short- and long-term side effects of the proposed medication regimen, including contraindications and clinically significant interactions, were discussed with the patient. I gave examples of side effects such as but not limited to sedation, movement disorders (TD, EPS), weight gain, and appetite changes and advised the patient not to drive while taking these meds. We also discussed risk of overdose with this current med regimen. Targeted symptoms and signs, possible therapeutic benefit, side effect and risks No abnormal movements noted on exam. AIMS is Zero. Involve friends/family members if applicable to coordinate care and ensure appropriate outpatient appointments are scheduled prior to discharge. I have reviewed evaluations by other providers (ER notes, nurses and staff) Documented By: Phillip Davis MD 5 0640 Signed By: 05/23/24 0642 [facility]01-11-2025 Progress note Author Phillip arriaza [facility] Note Date/Time May 22, 2024 6 :52am [facility] [address] [place] [address] Psychiatry Progress Note Signed Patient: Roshan Willingham MR#: [id number] : 1990 Acct:[id number] Age/Sex: 33 / F Adm Date: 5 Loc: 1S Room: 7Z2557-2 Type : ADM IN Attending Dr: Phillip Davis MD Copies to: ~ Date of Service: 05/22/2024 Subjective Subjective Narrative: Ms. Willingham said she si feeling better on the front unit and enjoyed relaxation groups. She is tolerating Naltrexone which may help with self injurious behaviors. She was offered Vivitrol injection but prefers to continue on the oral tablet. She is in better spirits this am and denied any SI/HI. She has no AVH. She tolerated increasing Pristiq to 50 mg PO Q daily. She talked to telephonic nurse case manager about referral to day treatment. She feels motivated to attend outpatient treatment. She attended an eating disorder program in the past. Mental Status: mental status grossly normal Mood: ok mood Affect: mood congruent affect Speech and Movement: speech and movement normal and speech clear Attitude: cooperative Thought Process: normal Thought Content: Denied hallucinations, no homicidality and no suicidality Insight: Fair Judgment: Fair Exam Physical Exam Vital Signs: Temp Pulse Resp BP Pulse Ox O2 Del Method 97.5 F L 71 18 128/82 96 Room Air 05/22/24 06:46 05/22/24 06:46 05/22/24 06:46 05/22/24 06:46 05/22/24 06:46 05/22/24 06:46 Abnormal Involuntary Movement Dental Status Are dentures usually worn?: No Assessment/Plan Assessment/Plan (1) Marijuana abuse: (2) Borderline personality disorder: (3) Generalized anxiety disorder: Plan Patient reports feeling better and denied any SI/HI. [facility] Continue Melatonin 5 mg PO HS for insomnia, Pristiq 50 mg p.o. daily and Seroquel 25 mg p.o. twice daily Will continue Naltrexone to 50 mg PO q daily. May benefit from Vivitrol injection prior to discharge. Typical short- and long-term side effects of the proposed medication regimen, including contraindications and clinically significant interactions, were discussed with the patient. I gave examples of side effects such as but not limited to sedation, movement disorders (TD, EPS), weight gain, and appetite changes and advised the patient not to drive while taking these meds. We also discussed risk of overdose with this current med regimen. Targeted symptoms and signs, possible therapeutic benefit, side effect and risks No abnormal movements noted on exam. AIMS is Zero. Involve friends/family members if applicable to coordinate care and ensure appropriate outpatient appointments are scheduled prior to discharge. I have reviewed evaluations by other providers (ER notes, nurses and staff) Documented By: Phillip Davis MD 5 [id number] Signed By: <Electronically signed by Phillip Davis MD> 05/22/24 0652 [facility] Work Phone: 1(883) 254-625301-11-[address] [address] Psychiatry Progress Note Signed Patient: Roshan Willingham MR#: [id number] : 1990 Acct:[id number] Age/Sex: 33 / F Adm Date: 5 Loc: 1S Room: [address] [place] [address] Type : ADM IN Attending Dr: Phillip Davis MD Copies to: ~ Date of Service: 05/22/2024 Subjective Subjective Narrative: Ms. Willingham said she si feeling better on the front unit and enjoyed relaxation groups. She is tolerating Naltrexone which may help with self injurious behaviors. She was offered Vivitrol injection but prefers to continue on the oral tablet. She is in better spirits this am and denied any SI/HI. Shehas no AVH. She tolerated increasing Pristiq to 50 mg PO Q daily. She talked to telephonic nurse case manager about referral to day treatment. She feels motivated to attend outpatient treatment. She attended an eating disorder program in the past. Mental Status: mental status grossly normal Mood: ok mood Affect: mood congruent affect Speech and Movement: speech and movement normal and speech clear Attitude: cooperative Thought Process: normal Thought Content: Denied hallucinations, no homicidality and no suicidality Insight: Fair Judgment: Fair Exam Physical Exam Vital Signs: Temp Pulse Resp BP Pulse Ox O2 Del Method 97.5 F L 71 18 128/82 96 Room Air 05/22/24 06:46 05/22/24 06:46 05/22/24 06:46 05/22/24 06:46 05/22/24 06:46 05/22/24 06:46 Abnormal Involuntary Movement Dental Status Are dentures usually worn?: No Assessment/Plan Assessment/Plan (1) Marijuana abuse: (2) Borderline personality disorder: (3) Generalized anxiety disorder: Plan Patient reports feeling better and denied any SI/HI. She [facility]. Continue Melatonin 5 mg PO HS for insomnia, Pristiq 50 mg p.o. daily and Seroquel 25 mg p.o. twice daily Will continue Naltrexone to 50 mg PO q daily. May benefit from Vivitrol injection prior to discharge. Typical short- and long-term side effects of the proposed medication regimen, including contraindications and clinically significant interactions, were discussed with the patient. I gave examples of side effects such as but not limited to sedation, movement disorders (TD, EPS), weight gain, and appetite changes and advised the patient not to drive while taking these meds. We also discussed risk of overdose with this current med regimen. Targeted symptoms and signs, possible therapeutic benefit, side effect and risks No abnormal movements noted on exam. AIMS is Zero. Involve friends/family members if applicable to coordinate care and ensure appropriate outpatient appointments are scheduled prior to discharge. I have reviewed evaluations by other providers (ER notes, nurses and staff) Documented By: Phillip Davis MD 5 0650 Signed By: 05/22/24 0652 [facility]01-10-2025 Progress note Author Phillip arriaza [facility] Note Date/Time May 21, 2024 8 :22am [facility] [address] [place] [address] Psychiatry Progress Note Signed Patient: Roshan Willingham MR#: [id number] : 1990 Acct:[id number] Age/Sex: 33 / F Adm Date: Loc: Room: [address] [place] [address] Type : ADM IN Attending Dr: Phillip Davis MD Copies to: ~ Date of Service: 05/21/2024 Subjective Subjective Narrative: Ms. Willingham said her depression is improving but anxiety is up and down. She has been utilizing Zyprexa and Vistaril PRN. She is open to increasing dose of medications. She reports that her intermittent intermittent SI but is focusing on coping skills. She states I am trying ot manage when I am overwhelmed or having a panic attack. Mental Status: mental status grossly normal Mood: Anxious mood Affect: mood congruent affect Speech and Movement: speech and movement normal and speech clear Attitude: cooperative Thought Process: normal Thought Content: Denied hallucinations, no homicidality and no suicidality Insight: Fair Judgment: Fair Exam Physical Exam Vital Signs: Temp Pulse Resp BP Pulse Ox O2 Del Method 98.4 F 70 18 121/85 95 Room Air 05/20/24 14:44 05/20/24 20:14 05/20/24 20:14 05/20/24 20:14 05/20/24 20:14 05/20/24 20:14 Abnormal Involuntary Movement Dental Status Are dentures usually worn?: No Assessment/Plan Assessment/Plan (1) Marijuana abuse: (2) Borderline personality disorder: (3) Generalized anxiety disorder: Plan Patient reports her depression is ongoing but suicidal thoughts are less. Continue Melatonin 5 mg PO HS for insomnia, Pristiq 50 mg p.o. daily and Seroquel 25 mg p.o. twice daily Will continue Naltrexone to 50 mg PO q daily. May benefit from Vivitrol injection prior to discharge. Will allow patient to move front up. Typical short- and long-term side effects of the proposed medication regimen, including contraindications and clinically significant interactions, were discussed with the patient. I gave examples of side effects such as but not limited to sedation, movement disorders (TD, EPS), weight gain, and appetite changes and advised the patient not to drive while taking these meds. We also discussed risk of overdose with this current med regimen. Targeted symptoms and signs, possible therapeutic benefit, side effect and risks No abnormal movements noted on exam. AIMS is Zero. Involve friends/family members if applicable to coordinate care and ensure appropriate outpatient appointments are scheduled prior to discharge. I have reviewed evaluations by other providers (ER notes, nurses and staff) Documented By: Phillip Davis MD 5 0820 Signed By: <Electronically signed by Phillip Davis MD> 05/21/24 0822 [facility] Work Phone: 1(901) 212-675701-10-2025 [place] [address] Psychiatry Progress Note Signed Patient: Roshan Willingham MR#: [id number] : 1990 Acct:[id number] Age/Sex: 33 / F Adm Date: 5 Loc: 1S Room: [address] [place] [address] Type : ADM IN Attending Dr: Phillip Davis MD Copies to: ~ Date of Service: 05/21/2024 Subjective Subjective Narrative: Ms. Willingham said her depression is improving but anxiety is up and down. She has been utilizing Zyprexa and Vistaril PRN. She is open to increasing dose of medications. She reports that her intermittent intermittent SI but is focusing on coping skills. She states I am trying ot manage when I am overwhelmed or having a panic attack. Mental Status: mental status grossly normal Mood: Anxious mood Affect: mood congruent affect Speech and Movement: speech and movement normal and speech clear Attitude: cooperative Thought Process: normal Thought Content: Denied hallucinations, no homicidality and no suicidality Insight: Fair Judgment: Fair Exam Physical Exam Vital Signs: Temp Pulse Resp BP Pulse Ox O2 Del Method 98.4 F 70 18 121/85 95 Room Air 05/20/24 14:44 05/20/24 20:14 05/20/24 20:14 05/20/24 20:14 05/20/24 20:14 05/20/24 20:14 Abnormal Involuntary Movement Dental Status Are dentures usually worn?: No Assessment/Plan Assessment/Plan (1) Marijuana abuse: (2) Borderline personality disorder: (3) Generalized anxiety disorder: Plan Patient reports her depression is ongoing but suicidal thoughts are less. Continue Melatonin 5 mg PO HS for insomnia, Pristiq 50 mg p.o. daily and Seroquel 25 mg p.o. twice daily Will continue Naltrexone to 50 mg PO q daily. May benefit from Vivitrol injection prior to discharge. Will allow patient to move front up. Typical short- and long-term side effects of the proposed medication regimen, including contraindications and clinically significant interactions, were discussed with the patient. I gave examples of side effects such as but not limited to sedation, movement disorders (TD, EPS), weight gain, and appetite changes and advised the patient not to drive while taking these meds. We also discussed risk of overdose with this current med regimen. Targeted symptoms and signs, possible therapeutic benefit, side effect and risks No abnormal movements noted on exam. AIMS is Zero. Involve friends/family members if applicable to coordinate care and ensure appropriate outpatient appointments are scheduled prior to discharge. I have reviewed evaluations by other providers (ER notes, nurses and staff) Documented By: Phillip Davis MD 5 0820 Signed By: 05/21/24821 [facility]01-09-2025 Progress note Author Phillip arriaza [facility] Note Date/Time May 20, 2024 8: 03am [facility] [address] [place] [address] Psychiatry Progress Note Signed Patient: Roshan Willingham MR#: [id number] : 1990 Acct:[id number] Age/Sex: 33 / F Adm Date: 5 Loc: Room: [address] [place] [address] Type : ADM IN Attending Dr: Phillip Davis MD Copies to: ~ Date of Service: 05/20/2024 Subjective Subjective Narrative: Ms. Willingham said her depression is ongoing and discussed increasing her meds. Sheis open to increasing Pristiq to 50 mg PO Q daily. She reports reduction of her SI compared to the time of admission. She is open to attending groups on the front unit. Patient talked that she was isolating prior to admission. Mental Status: mental status grossly normal Mood: depressed mood Affect: constricted affect Speech and Movement: speech and movement normal and speech clear Attitude: cooperative Thought Process: normal Thought Content: Denied hallucinations, no homicidality and positive suicidality Insight: limited Judgment: limited Exam Physical Exam Vital Signs: Temp Pulse Resp BP Pulse Ox O2 Del Method 98.1 F 77 18 128/80 95 Room Air 05/19/24 20:22 05/19/24 20:22 05/19/24 20:22 05/19/24 20:22 05/19/24 20:22 05/19/24 20:22 Abnormal Involuntary Movement Dental Status Are dentures usually worn?: No Assessment/Plan Assessment/Plan (1) Marijuana abuse: (2) Borderline personality disorder: (3) Generalized anxiety disorder: Plan Patient reports her depression is ongoing but suicidal thoughts are less. Add Melatonin 5 mg PO HS for insomnia Continue Pristiq 50 mg p.o. daily and Seroquel 25 mg p.o. twice daily Will increase Naltrexone to 50 mg PO q daily. Patient said she feels her pulse is low after taking Naltrexone but vital signs are WNL Will allow group pass Typical short- and long-term side effects of the proposed medication regimen, including contraindications and clinically significant interactions, were discussed with the patient. I gave examples of side effects such as but not limited to sedation, movement disorders (TD, EPS), weight gain, and appetite changes and advised the patient not to drive while taking these meds. We also discussed risk of overdose with this current med regimen. Targeted symptoms and signs, possible therapeutic benefit, side effect and risks No abnormal movements noted on exam. AIMS is Zero. Involve friends/family members if applicable to coordinate care and ensure appropriate outpatient appointments are scheduled prior to discharge. I have reviewed evaluations by other providers (ER notes, nurses and staff) Documented By: Phillip Davis MD 5 075 Signed By: <Electronically signed by Phillip Davis MD> 05/20/24 0803 [facility] Work Phone: 1(213) 945-755501-09-2025 [place] [address] Psychiatry Progress Note Signed Patient: Roshan Willingham MR#: [id number] : 1990 Acct:[id number] Age/Sex: 33 / F Adm Date: 5 Loc: Room: [address] [place] [address] Type : ADM IN Attending Dr: Phillip Davis MD Copies to: ~ Date of Service: 05/20/2024 Subjective Subjective Narrative: Ms. Willingham said her depression is ongoing and discussed increasing her meds. Sheis open to increasing Pristiq to 50 mg PO Q daily. She reports reduction of her SI compared to the time of admission. She is open to attending groups on the front unit. Patient talked that she was isolating prior to admission. Mental Status: mental status grossly normal Mood: depressed mood Affect: constricted affect Speech and Movement: speech and movement normal and speech clear Attitude: cooperative Thought Process: normal Thought Content: Denied hallucinations, no homicidality and positive suicidality Insight: limited Judgment: limited Exam Physical Exam Vital Signs: Temp Pulse Resp BP Pulse Ox O2 Del Method 98.1 F 77 18 128/80 95 Room Air 05/19/24 20:22 05/19/24 20:22 05/19/24 20:22 05/19/24 20:22 05/19/24 20:22 05/19/24 20:22 Abnormal Involuntary Movement Dental Status Are dentures usually worn?: No Assessment/Plan Assessment/Plan (1) Marijuana abuse: (2) Borderline personality disorder: (3) Generalized anxiety disorder: Plan Patient reports her depression is ongoing but suicidal thoughts are less. Add Melatonin 5 mg PO HS for insomnia Continue Pristiq 50 mg p.o. daily and Seroquel 25 mg p.o. twice daily Will increase Naltrexone to 50 mg PO q daily. Patient said she feels her pulse is low after taking Naltrexone but vital signs are WNL Will allow group pass Typical short- and long-term side effects of the proposed medication regimen, including contraindications and clinically significant interactions, were discussed with the patient. I gave examples of side effects such as but not limited to sedation, movement disorders (TD, EPS), weight gain, and appetite changes and advised the patient not to drive while taking these meds. We also discussed risk of overdose with this current med regimen. Targeted symptoms and signs, possible therapeutic benefit, side effect and risks No abnormal movements noted on exam. AIMS is Zero. Involve friends/family members if applicable to coordinate care and ensure appropriate outpatient appointments are scheduled prior to discharge. I have reviewed evaluations by other providers (ER notes, nurses and staff) Documented By: Phillip Davis MD 5 [id number] Signed By: 05/20/24 0803 [facility]01-08-2025 Progress note Author Phillip arriaza [facility] Note Date/Time May 19, 2024 8: 10am [facility] [address] [place] [address] Psychiatry Progress Note Signed Patient: Roshan Willingham MR#: [id number] : 1990 Acct:[id number] Age/Sex: 33 / F Adm Date: 5 Loc: 1S Room: [address] [place] [address] Type : ADM IN Attending Dr: Phillip Davis MD Copies to: ~ Date of Service: 05/19/2024 Subjective Subjective Narrative: Ms. Willingham presents as calmer and said that Naltrexone slowed down her heart butvital signs appears mostly WNL. Patient said her self injurious triggers are less and noted are behaviors. Patient has a history of psychogenic seizures and is afraid that this may re-occur due to her stress. She has limited insight and judgment due her severe BPD. She is trying to control her thoughts. She said she wants to feel trusted and denied any actiive plans to harm self. She requested discontinuing level II. She is planning to stay with her grandparents when she leaves Mental Status: mental status grossly normal Mood: depressed mood Affect: constricted affect Speech and Movement: speech and movement normal and speech clear Attitude: cooperative Thought Process: normal Thought Content: Denied hallucinations, no homicidality and positive suicidality Insight: limited Judgment: limited Exam Physical Exam Vital Signs: Temp Pulse Resp BP Pulse Ox O2 Del Method 98.3 F 102 H 16 128/74 99 Room Air 05/18/24 21:01 05/18/24 21:01 05/18/24 21:01 05/18/24 21:01 05/18/24 21:01 05/18/24 21:01 Abnormal Involuntary Movement Dental Status Are dentures usually worn?: No Assessment/Plan Assessment/Plan (1) Marijuana abuse: (2) Borderline personality disorder: (3) Generalized anxiety disorder: Plan Patient is still struggling with self injurious behaviors. DC level II suicide watch as patient contracts for safety. Continue Pristiq 25 mg p.o. daily and Seroquel 25 mg p.o. twice daily Will continue Naltrexone 25 mg PO HS Should benefit from outpatient DBT. Typical short- and long-term side effects of the proposed medication regimen, including contraindications and clinically significant interactions, were discussed with the patient. I gave examples of side effects such as but not limited to sedation, movement disorders (TD, EPS), weight gain, and appetite changes and advised the patient not to drive while taking these meds. We also discussed risk of overdose with this current med regimen. Targeted symptoms and signs, possible therapeutic benefit, side effect and risks No abnormal movements noted on exam. AIMS is Zero. Involve friends/family members if applicable to coordinate care and ensure appropriate outpatient appointments are scheduled prior to discharge. I have reviewed evaluations by other providers (ER notes, nurses and staff) Documented By: Phillip Davis MD [id number] Signed By: <Electronically signed by Phillip Davis MD> 05/19/24 0810 [facility] Work Phone: 1(163) 577-348801-08-2025 [place] [id number] Psychiatry Progress Note Signed Patient: Roshan Willingham MR#: [id number] : 1990 Acct:[id number] Age/Sex: 33 / F Adm Date: 5 Loc: 1S Room: [address] [place] [address] Type : ADM IN Attending Dr: Phillip Davis MD Copies to: ~ Date of Service: 05/19/2024 Subjective Subjective Narrative: Ms. Willingham presents as calmer and said that Naltrexone slowed down her heart butvital signs appearsmostly WNL. Patient said her self injurious triggers are less and noted are behaviors. Patient has a history of psychogenic seizures and is afraid that this may re-occur due to her stress. She has limited insight and judgment due her severe BPD. She is trying to control her thoughts. She said she wants to feel trusted and denied any actiive plans to harm self. She requested discontinuing level II. She is planning to stay with her grandparents when she leaves Mental Status: mental status grossly normal Mood: depressed mood Affect: constricted affect Speech and Movement: speech and movement normal and speech clear Attitude: cooperative Thought Process: normal Thought Content: Denied hallucinations, no homicidality and positive suicidality Insight: limited Judgment: limited Exam Physical Exam Vital Signs: Temp Pulse Resp BP Pulse Ox O2 Del Method 98.3 F 102 H 16 128/74 99 Room Air 05/18/24 21:01 05/18/24 21:01 05/18/24 21:01 05/18/24 21:01 05/18/24 21:01 05/18/24 21:01 Abnormal Involuntary Movement Dental Status Are dentures usually worn?: No Assessment/Plan Assessment/Plan (1) Marijuana abuse: (2) Borderline personality disorder: (3) Generalized anxiety disorder: Plan Patient is still struggling with self injurious behaviors. DC level II suicide watch as patient contracts for safety. Continue Pristiq 25 mg p.o. daily and Seroquel 25 mg p.o. twice daily Will continue Naltrexone 25 mg PO HS Should benefit from outpatient DBT. Typical short- and long-term side effects of the proposed medication regimen, including contraindications and clinically significant interactions, were discussed with the patient. I gave examples of side effects such as but not limited to sedation, movement disorders (TD, EPS), weight gain, and appetite changes and advised the patient not to drive while taking these meds. We also discussed risk of overdose with this current med regimen. Targeted symptoms and signs, possible therapeutic benefit, side effect and risks No abnormal movements noted on exam. AIMS is Zero. Involve friends/family members if applicable to coordinate care and ensure appropriate outpatient appointments are scheduled prior to discharge. I have reviewed evaluations by other providers (ER notes, nurses and staff) Documented By: Phillip Davis MD [id number] Signed By: 05/19/24 0810 [facility]01-07-2025 Progress note Author Phillip arriaza [facility] Note Date/Time May 18, 2024 8: 24am [facility] [address] [place] [address] Psychiatry Progress Note Signed Patient: Roshan Willingham MR#: [id number] : 1990 Acct:[id number] Age/Sex: 33 / F Adm Date: 5 Loc: Room: [address] [place] [address] Type : ADM IN Attending Dr: Phillip Davis MD Copies to: ~ Date of Service: 05/18/2024 Subjective Subjective Narrative: Ms. Willingham presents as calmer and said she is less angry this am. She reported intermittent SI and continues to have urges of self harm. She is feeling less impulsive. She rates her depression at 5 out of 10 with 10 being the worst. Shehas superficial cuts on her left hand, and she scratched her right wrist with a pop tab. She is trying to work on self injurious urges and said she could not keep herself safe. She reports intrusive thoughts described her self injurious behaviors as addictive trait. We discussed the off label use of Naltrexone in BPD as it can reduce addictive traits. Mental Status: mental status grossly normal Mood: depressed mood Affect: constricted affect Speech and Movement: speech and movement normal and speech clear Attitude: cooperative Thought Process: normal Thought Content: Denied hallucinations, no homicidality and positive suicidality Insight: limited Judgment: limited Exam Physical Exam Vital Signs: Temp Pulse Resp BP Pulse Ox O2 Del Method 98.2 F 63 16 122/80 97 Room Air 05/18/24 07:30 05/18/24 07:30 05/18/24 07:30 05/18/24 07:30 05/18/24 07:30 05/18/24 07:30 Abnormal Involuntary Movement Dental Status Are dentures usually worn?: No Assessment/Plan Assessment/Plan (1) Marijuana abuse: (2) Borderline personality disorder: (3) Generalized anxiety disorder: Plan Patient is still struggling with self injurious behaviors. Will continue level II suicide watch. Continue Pristiq 25 mg p.o. daily and Seroquel 25 mg p.o. twice daily Will start low dose Naltrexone 25 mg PO HS Should benefit from outpatient DBT. Typical short- and long-term side effects of the proposed medication regimen, including contraindications and clinically significant interactions, were discussed with the patient. I gave examples of side effects such as but not limited to sedation, movement disorders (TD, EPS), weight gain, and appetite changes and advised the patient not to drive while taking these meds. We also discussed risk of overdose with this current med regimen. Targeted symptoms and signs, possible therapeutic benefit, side effect and risks No abnormal movements noted on exam. AIMS is Zero. Involve friends/family members if applicable to coordinate care and ensure appropriate outpatient appointments are scheduled prior to discharge. I have reviewed evaluations by other providers (ER notes, nurses and staff) Documented By: Phillip Davis MD [id number] Signed By: <Electronically signed by Phillip Davis MD> 05/18/24 0824 [facility] Work Phone: 1([phone]) 470-491801-07-2025 [place] [id number] Psychiatry Progress Note Signed Patient: Roshan Willingham MR#: [id number] : 1990 Acct:[id number] Age/Sex: 33 / F Adm Date: 5 Loc: 1S Room: [address] [place] [address] Type : ADM IN Attending Dr: Phillip Davis MD Copies to: ~ Date of Service: 05/18/2024 Subjective Subjective Narrative: Ms. Willingham presents as calmer and said she is less angry this am. She reported intermittent SI and continues to have urges of self harm. She is feeling less impulsive. She rates her depression at 5 out of 10 with 10 being the worst. Shehas superficial cuts on her left hand, and she scratched her right wrist with a pop tab. She is trying to work on self injurious urges and said she could not keep herself safe. She reports intrusive thoughts described her self injurious behaviors as addictive trait. We discussed the off label use of Naltrexone in BPD as it can reduce addictive traits. Mental Status: mental status grossly normal Mood: depressed mood Affect: constricted affect Speech and Movement: speech and movement normal and speech clear Attitude: cooperative Thought Process: normal Thought Content: Denied hallucinations, no homicidality and positive suicidality Insight: limited Judgment: limited Exam Physical Exam Vital Signs: Temp Pulse Resp BP Pulse Ox O2 Del Method 98.2 F 63 16 122/80 97 Room Air 05/18/24 07:30 05/18/24 07:30 05/18/24 07:30 05/18/24 07:30 05/18/24 07:30 05/18/24 07:30 Abnormal Involuntary Movement Dental Status Are dentures usually worn?: No Assessment/Plan Assessment/Plan (1) Marijuana abuse: (2) Borderline personality disorder: (3) Generalized anxiety disorder: Plan Patient is still struggling with self injurious behaviors. Will continue level II suicide watch. Continue Pristiq 25 mg p.o. daily and Seroquel 25 mg p.o. twice daily Will start low dose Naltrexone 25 mg PO HS Should benefit from outpatient DBT. Typical short- and long-term side effects of the proposed medication regimen, including contraindications and clinically significant interactions, were discussed with the patient. I gave examples of side effects such as but not limited to sedation, movement disorders (TD, EPS), weight gain, and appetite changes and advised the patient not to drive while taking these meds. We also discussed risk of overdose with this current med regimen. Targeted symptoms and signs, possible therapeutic benefit, side effect and risks No abnormal movements noted on exam. AIMS is Zero. Involve friends/family members if applicable to coordinate care and ensure appropriate outpatient appointments are scheduled prior to discharge. I have reviewed evaluations by other providers (ER notes, nurses and staff) Documented By: Phillip Davis MD [id number] Signed By: 05/18/24 0824 [facility]01-06-2025 History and physical note Author Phillip arriaza [facility] Note Date/Time May 17, 2024 10 :04am [facility] [address] [place] [address] Psychiatry H&P Signed Patient: Roshan Willingham MR#: [id number] : 1990 Acct:[id number] Age/Sex: 33 / F Adm Date: 5 Loc: 1S Room: [address] [place] [address] Type: ADM IN Attending Dr: Phillip Davis MD Copies to: Phillip Davis MD [facility]~ Date of Service: 05/17/2024 HPI History of Present Illness History of present illness: Ms. Willingham is a 33 year old female reported history of depression, anxiety and borderline personality disorder who presents for inpatient mission due to feeling suicidal. Reportedly, patient presented from the hospital stating that she is feeling suicidal and struggling with self injurious thoughts. At the time of the interview, she presented as tearful, reports she has been off her meds since February. She states It was a hot mess getting to appointments and getting my meds figured out. She is currently following up with private practice therapist in [facility] and stated that they do not see eye to eye. Patient stated that she needs to follow-up with the crisis center to ensure her stability. Patient is well-known to myself as I had previously treated her in the outpatient [facility] counseling recovery. She has significant eating disorders and very poor impulse control. Unfortunately thereis no medication that is going to treat that. The best evidence treatment requires extensive DBT and the long-term process. Her insight is limited about that as she is struggling with attention seeking behavior most of the time. Shestates she thinks the meds she was on previously were helping. Patient states her parents are the opposite of supportive and my mom makes me feel like I'mthe worst person in the world. She states that her maternal grandparents are somewhat supportive. She states her grandparents will let her stay with them upon discharge, but she is also interested in discharge to a fci. She rates her depression at 10 out of 10 with 10 being the worst. She has superficial cuts on her left hand, and she scratched her right wrist with a pop tab. Patient denies illegal drug use. She was positive for THC and states she also vapes but hasn't done that for 6 days. She denies ETOH use. Patient states she is applying for disability. She indicated that she was staying at a shelterfor some time and felt it was not a supportive environment. Important to mention the patient required IM injection since her admission to [facility] due to agitation. She is also on level 2 suicide watch due to self-injurious tendency and cannot contract for safety. Patient identified history of unstable relationships that might contribute to intense, highly changeable moods that can last for several days or for just a few hours. A persistent fear of abandonment and rejection, including extreme emotional reactions to real and even perceived abandonment Patient reports a suicide attempt 2-3 years ago. She stated now that she is suicidal but it's gone beyond that because I genuinely want to do it. The thoughts are going out of control. Patient reports a medical history of asthma. As an she had a gastronomy tube and cricoid split. Review of Systems Constitutional: Pt denies fatigue, malaise. Neuro: Denies dizziness/lightheadedness. Denies TBI, seizure, memory loss. Denies numbness/tingling in extremities HEENT: Denies vision/hearing changes. Pulmonary: Denies SOB, dyspnea, cough, wheezing. Cardiac: Denies chest pain/pressure. Denies edema, palpitations. GI: Denies abdominal pain, heartburn, N/V. Denies constipation and diarrhea : Denies dysuria, hematuria, polyuria. Physical exam General: not in any acute distress Skin: intact HEENT: head atraumatic, face symmetrical. Pulm: Breathing normally without excessive effort Cardio: Regular rate and rhythm Abdomen: Normal inspection Musculoskeletal: Moves all extremities, normal strength all extremities. Neuro: Pt alert, oriented x3. Gait normal. CNI: normal olfaction, no concerns reported CNII: Visual stover intact CNIII,IV,: EOM intact, no nystagmus. CNV: Sensation intact to light touch. CNVII: Raises eyebrows, smile/frown, puff out cheeks symmetrically. CNVIII: Hearing intact bilaterally. CNIX,X: Voice normal, soft palate elevation normal, symmetrical. CNXI: Shoulder shrug strong, equal bilaterally. CNXII: Tongue protrusion midline Mental Status: mental status grossly normal Mood: depressed mood Affect: constricted affect Speech and Movement: speech and movement normal and speech clear Attitude: cooperative Thought Process: normal Thought Content: Denied hallucinations, no homicidality and positive suicidality Insight: limited Judgment: limited [facility] Medical History Borderline personality disorder Anorexia Pneumonia Asthma Eating disorder bulimia/anorexia Overdose PSYCH MEDICATION OVERDOSE JULY 2019, 2 OTHER OD'S IN PAST ON PSYCH MEDICATION Depression Anxiety Bruno disease History of kidney infection BOUCHRA (acute kidney injury) Surgical History History of gastrostomy as an infant History of neck surgery CRICOID SPLIT A BABY Family History Mother Anxiety Depression COPD (chronic obstructive pulmonary disease) Myocardial infarction Mother No problems noted. Social History Smoking Status: Current some day smoker Tobacco Type: smokeless tobacco Substance Use Type: Marijuana Substance Abuse Comment: THC Social History Comments: grandmother Meds Medications and Allergies Allergies cranberry Allergy (Verified 04/01/24 14:24) Hives Penicillins Allergy (Verified 04/01/24 14:24) Rash prochlorperazine (From Compazine) Adverse Reaction (Verified 04/01/24 14:24) Irritable apple Allergy (Uncoded 01/12/24 21:25) Unknown Reaction Home Medications albuterol sulfate 90 mcg/actuation aerosol inhaler 2 inh inhalation Q4-6H PRN shortness of breath or wheezing #18 grams 07/24/22 [Rx Confirmed 05/16/24] budesonide-formoterol HFA 160 mcg-4.5 mcg/actuation aerosol inhaler (Symbicort) 1 inh inhalation BID #10.2 grams 07/24/22 [Rx Confirmed 05/16/24] prednisone 20 mg tablet 20 mg PO .COMPLEX #18 tabs 04/01/24 [Rx Confirmed 05/16/24] Exam Physical Exam Vital Signs: Temp Pulse Resp BP Pulse Ox O2 Del Method 97.9 F 89 18 140/82 94 L Room Air 05/17/24 07:26 05/17/24 07:26 05/17/24 07:26 05/17/24 07:26 05/17/24 07:26 05/17/24 07:26 Abnormal Involuntary Movement Dental Status Are dentures usually worn?: No Assessment/Plan (1) Marijuana abuse: (2) Borderline personality disorder: (3) Generalized anxiety disorder: Plan Admit to for management of depression and to ensure safety of self due to SI. Restart Pristiq 25 mg p.o. daily and Seroquel 25 mg p.o. twice daily Patient indicated that she is on a prednisone taper at this time Monitor suicidal behaviors for safety of self (15-minute face check). Recommend attending groups and psychoeducation for building coping skills. Typical short- and long-term side effects of the proposed medication regimen, including contraindications and clinically significant interactions, were discussed with the patient. I gave examples of side effects such as but not limited to sedation, movement disorders (TD, EPS), weight gain, and appetite changes and advised the patient not to drive while taking these meds. We also discussed risk of overdose with this current med regimen. Targeted symptoms and signs, possible therapeutic benefit, side effect and risks No abnormal movements noted on exam. AIMS is Zero. Involve friends/family members if applicable to coordinate care and ensure appropriate outpatient appointments are scheduled prior to discharge. I have reviewed evaluations by other providers (ER notes, nurses and staff) Documented By: Phillip Davis MD [id number] Signed By: <Electronically signed by Phillip Davis MD> 05/17/[address] [facility]3 [facility] Work Phone: 1([phone]) 888-351701-06-2025 [place] [address] Psychiatry H&P Signed Patient: Roshan Willingham MR#: [id number] : 1990 Acct:[id number] Age/Sex: 33 / F Adm Date: 5 Loc: 1S Room: [address] [place] [address] Type: ADM IN Attending Dr: Phillip Davis MD Copies to: Phillip Davis MD [facility]~ Date of Service: 05/17/2024 HPI History of Present Illness History of present illness: Ms. Willingham is a 33 year old female reported history of depression, anxiety and borderline personality disorder who presents for inpatient mission due to feeling suicidal. Reportedly, patient presented from the hospital stating that she is feeling suicidal and struggling with self injurious thoughts. At the time of the interview, she presented as tearful, reports she has been off her meds since February. She states It was a hot mess getting to appointments and getting my meds figured out. She iscurrently following up with private practice therapist in [facility] and stated that they do not see eye to eye. Patient stated that she needs to follow-up with the crisis center to ensure her stability. Patient is well-known to myself as I had previously treated her in the outpatient [facility] counseling recovery. She has significant eating disorders and very poor impulse control. Unfortunatelythereis no medication that is going to treat that. The best evidence treatment requires extensive DBT and the long-term process. Her insight is limited about that as she is struggling with attention seeking behavior most of the time. Shestates she thinks the meds she was on previously were helping.Patient states her parents are the opposite of supportive and my mom makes me feel like I'mthe worst person in the world. She states that her maternal grandparents are somewhat supportive. She states her grandparents will let her stay with them upon discharge, but she is also interested in discharge to a fci. She rates her depression at 10 out of 10 with 10 being the worst. She has superficial cuts on her left hand, and she scratched her right wrist with a pop tab. Patient denies illegal drug use. She was positive for THC and states she also vapes but hasn't done that for 6 days. She denies ETOH use. Patient states she is applying for disability. She indicated that she was stayingat a shelterfor some time and felt it was not a supportive environment. Important to mention the patient required IM injection since her admission to [facility]. due to agitation. She is also on level 2 suicide watch due to self-injurious tendency and cannot contract for safety. Patient identified history of unstable relationships that might contribute to intense, highly changeable moods that can last for several days or for just a few hours. A persistent fear of abandonmentand rejection, including extreme emotional reactions to real and even perceived abandonment Patient reports a suicide attempt 2-3 years ago. She stated now that she is suicidal but it's gonebeyond that because I genuinely want to do it. The thoughts are going out of control. Patient reports a medical history of asthma. As an she had a gastronomy tube and cricoid split. Review of Systems Constitutional: Pt denies fatigue, malaise. Neuro: Denies dizziness/lightheadedness. Denies TBI, seizure, memory loss. Denies numbness/tinglingin extremities HEENT: Denies vision/hearing changes. Pulmonary: Denies SOB, dyspnea, cough, wheezing. Cardiac: Denies chest pain/pressure. Denies edema, palpitations. GI: Denies abdominal pain, heartburn, N/V. Denies constipation and diarrhea : Denies dysuria, hematuria, polyuria. Physical exam General: not in any acute distress Skin: intact HEENT: head atraumatic, face symmetrical. Pulm: Breathing normally without excessive effort Cardio: Regular rate and rhythm Abdomen: Normal inspection Musculoskeletal: Moves all extremities, normal strength all extremities. Neuro: Pt alert, oriented x3. Gait normal. CNI: normal olfaction, no concerns reported CNII: Visual stover intact CNIII,IV,: EOM intact, no nystagmus. CNV: Sensation intact to light touch. CNVII: Raises eyebrows, smile/frown, puff out cheeks symmetrically. CNVIII: Hearing intact bilaterally. CNIX,X: Voice normal, soft palate elevation normal, symmetrical. CNXI: Shoulder shrug strong, equal bilaterally. CNXII: Tongue protrusion midline Mental Status: mental status grossly normal Mood: depressed mood Affect: constricted affect Speech and Movement: speech and movement normal and speech clear Attitude: cooperative Thought Process: normal Thought Content: Denied hallucinations, no homicidality and positive suicidality Insight: limited Judgment: limited [facility] Medical History Borderline personality disorder Anorexia Pneumonia Asthma Eating disorder bulimia/anorexia Overdose PSYCH MEDICATION OVERDOSE JULY 2019, 2 OTHER OD'S IN PAST ON PSYCH MEDICATION Depression Anxiety Bruno disease History of kidney infection BOUCHRA (acute kidney injury) Surgical History History of gastrostomy as an infant History of neck surgery CRICOID SPLIT A BABY Family History Mother Anxiety Depression COPD (chronic obstructive pulmonary disease) Myocardial infarction Mother No problems noted. Social History Smoking Status: Current some day smoker Tobacco Type: smokeless tobacco Substance Use Type: Marijuana Substance Abuse Comment: THC Social History Comments: grandmother Meds Medications and Allergies Allergies cranberry Allergy (Verified 04/01/24 14:24) Hives Penicillins Allergy (Verified 04/01/24 14:24) Rash prochlorperazine (From Compazine) Adverse Reaction (Verified 04/01/24 14:24) Irritable apple Allergy (Uncoded 01/12/24 21:25) Unknown Reaction Home Medications albuterol sulfate 90 mcg/actuation aerosol inhaler 2 inh inhalation Q4-6H PRN shortness of breath or wheezing #18 grams 07/24/22 [Rx Confirmed 05/16/24] budesonide-formoterol HFA 160 mcg-4.5 mcg/actuation aerosol inhaler (Symbicort) 1 inh inhalation BID #10.2 grams 07/24/22 [Rx Confirmed 05/16/24] prednisone 20 mg tablet 20 mg PO .COMPLEX #18 tabs 04/01/24 [Rx Confirmed 05/16/24] Exam Physical Exam Vital Signs: Temp Pulse Resp BP Pulse Ox O2 Del Method 97.9 F 89 18 140/82 94 L Room Air 05/17/24 07:26 05/17/24 07:26 05/17/24 07:26 05/17/24 07:26 05/17/24 07:26 05/17/24 07:26 Abnormal Involuntary Movement Dental Status Are dentures usually worn?: No Assessment/Plan (1) Marijuana abuse: (2) Borderline personality disorder: (3) Generalized anxiety disorder: Plan Admit to 1S for management of depression and to ensure safety of self due to SI. Restart Pristiq 25 mg p.o. daily and Seroquel 25 mg p.o. twice daily Patient indicated that she is on a prednisone taper at this time Monitor suicidal behaviors for safety of self (15-minute face check). Recommend attending groups and psychoeducation for building coping skills. Typical short- and long-term side effects of the proposed medication regimen, including contraindications and clinically significant interactions, were discussed with the patient. I gave examples of side effects such as but not limited to sedation, movement disorders (TD, EPS), weight gain, and appetite changes and advised the patient not to drive while taking these meds. We also discussed risk of overdose with this current med regimen. Targeted symptoms and signs, possible therapeutic benefit, side effect and risks No abnormal movements noted on exam. AIMS is Zero. Involve friends/family members if applicable to coordinate care and ensure appropriate outpatient appointments are scheduled prior to discharge. I have reviewed evaluations by other providers (ER notes, nurses and staff) Documented By: Phillip Davis MD 5 [id number] Signed By: 05/17/24 1004 [facility]01-05-2025 Evaluation note* Diagnosis Onset Date Resolution Status Admit Date Borderline personality disorder acute May 16 3:14pm Generalized anxiety disorder acute May 16, 2024 3:14pm Marijuana abuse acute May 162024 3:14pm Borderline personality disorder acute June 15 6:04pm Generalized anxiety disorder acute June 15, 2024 6:04pm Major depression acute June 15, 2024 6:04pm Bipolar disease, chronic acute July 14, 2024 2:05am Generalized anxiety disorder acute July 14, 2024 2:05am [facility] Work Phone: 1(665) 616-293411-21-2024 Evaluation note* Diagnosis Onset Date Resolution Status Admit Date Acute lower respiratory infection acute April 01, 2 024 2:16pm Borderline personality disorder acute May 16 3:14pm Generalized anxiety disorder acute May 16, 2024 3:14pm Marijuana abuse acute May 162024 3:14pm [facility] Work Phone: 1(226) 271-420311-21-2024 Evaluation note* Diagnosis Onset Date Resolution Status Admit Date Acute lower respiratory infection acute April 01, 2 024 2:16pm Borderline personality disorder acute May 16 3:14pm Generalized anxiety disorder acute May 16, 2024 3:14pm Marijuana abuse acute May 162024 3:14pm Borderline personality disorder acute June 15 6:04pm Generalized anxiety disorder acute June 15, 2024 6:04pm Major depression acute June 15, 2024 6:04pm [facility] Work Phone: 1([phone]) 551-870209-09-2024 Discharge summary Author Phillip arriaza [facility] January 19, 2024 6:43am Note Date/Time January 19, 2024 6:43am [facility] [address] [place] [address] Discharge Summary Signed Patient: Roshan Willingham MR#: [id number] : 1990 Acct:[id number] Age/Sex: 33 / F Adm Date: 4 Loc: Room: [address] [place] [address]: Brent Simmons MD Copies to: MD Brent Shell MD [facility]~ Providers Date of Discharge: 01/19/24 Discharging Provider: Phillip Davis Primary Care Provider: [facility] Discharge Diagnosis (1) Borderline personality disorder: (2) Major depression: Final Diagnosis Final Discharge Diagnosis: BPD Summary Hospital Course Hospital course: Ms. Willingham is a 33 year old female who presented due to concern for depression and suicidal ideation upon assessment, patient reported that she has been feeling depressed. She reported that she was discharged from a residential eating disorder clinic at the end of August. She reported that to her outpatientmade her ago. She stated that she has been trying to be insightful about what is going on with her. She stated that current eating issues have improved. Shereported that she feels depressed and anxious. She reported that her depressionhas been increasing over the past 1 month. She reported that she stopped her medications due to insurance issues. She reported that she is not dealing with the eating disorder as much as she used to in the past. Psychiatric history: Endorses history of depression, anxiety, anorexia, cutting,suicidality Family psychiatric history: Mother: Anxiety, depression, COPD Psychiatric hospitalizations: History of multiple psychiatric hospitalizations Suicide attempts: History of suicide attempts, most recent in May Employment: Unemployed Living situation: Lives with parents Substance use: Uses marijuana Patient reports she is feeling better as mood is much better compared to the time of admission. She reprots recent admission to the [facility] due to severe eating disorder. She was recently admitted to [facility]. She was restarted on Pristiq and Seroquel. Depression and anxiety are stabilizing gradually on the current medication regimen. Anxiety is mild in intensity with attempted utilization of coping skills. She denies SI/HI and verbalized the intent to notify staff if she has such thoughts. Her affect is brighter on exam.She continues to be compliant with prescribed medications and is visible within the unit milieu. She has been working with behavioral health case manager on her aftercare she agreed to continue the current medications regimen. She understands risks, benefits, and indications of current medication regimen. She has not history of recent suicide attempts, presented as future oriented, participated in group activities, articulated needs appropriately, and displayedno self-harm behaviors since being admitted to the inpatient unit. Imminent riskis low given factors noted above. She denied any current symptom that would pose a threat to self or others. Further inpatient hospitalization unlikely to mitigate chronic suicide risk, and pt agrees to f/u with outpatient psych care. We also discussed benefits of outpatient CBT and DBT to help with depression and reduce suicide risk. She said her grandparents will come to pick her up today. At this time, the patient has maximized the benefit from inpatient hospitalization as can be determined with a reasonable degree of medical certainty. At the time of discharge, the patient understood the importance of continued outpatient treatment and medication adherence. The patient voiced understanding of the discharge plan discussed with the treatment team. At time of discharge with reasonable degree of medical certainty, the patient manifesteda low risk of acute harm to self or others and a low-moderate chronic risk, evidenced by the psychiatric history and the subjective and objective condition at that time. Patient denies any active psychiatric signs and symptoms significantly deviating from baseline functioning. Residual suicide/homicide/psychosis/violence/inability to care for self is low risk as maximization of inpatient psychiatry treatment benefit was achieved to address acute risks which initially led to admission. Overall, she has a positive mood and attitude towards life. Appearance: dressed casually Mental Status: mental status grossly normal Mood: Euthymic mood Affect: Normal affect Speech and Movement: speech and movement normal and speech clear Attitude: cooperative Thought Process: normal Thought Content: Denied hallucinations, no homicidality and no suicidality Insight: fair Judgment: fair Impulse control: fair Time spent discussing smoking cessation with patient: more than 10 minutes Condition Condition at Discharge: Stable Status at Discharge Functional status at discharge: independent ambulation Time Spent with Patient Time spent providing/coordinating discharge services (# min): 82 Discharge Plan Discharge Plan Patient Disposition: Home Activity: No Activity Restriction Diet: Regular Additional Instructions: Important Contact Information You can call [facility] at [phone] any time day or night if you have emergent questions or question regarding discharge instructions. If at any time you are feeling an increase inyour psychiatric symptoms, call your physician or behavioral healthcare provider. If any time you have thoughts of harming yourself or others contact one of the following: Call (available 02/12) Crisis Text Line (available 02/12) text 4HOPE to [phone] [facility] Hope Line (available 8 a.m. Midnight) call [phone] ([phone]) Instructions: Know your Meds Prescriptions: New trazodone 50 mg Tablet 50 mg PO QHS PRN (Reason: Insomnia) 15 Days Qty: 15 1RF nicotine (polacrilex) 2 mg Gum 2 mg buccal Q2H PRN (Reason: Nicotine Cravings) Qty: 20 0RF hydroxyzine pamoate 50 mg Capsule 50 mg PO Q6H PRN (Reason: Anxiety) 15 Days Qty: 45 1RF quetiapine 50 mg Tablet 50 mg PO QHS 15 Days Qty: 15 1RF desvenlafaxine succinate 25 mg Tablet Extended Release 24 Hr 25 mg PO QHS 15 Days Qty: 15 1RF olanzapine 10 mg tablet 5 mg PO BID PRN (Reason: Agitation) 15 Days Qty: 30 0RF melatonin 5 mg Tablet 10 mg PO QHS 15 Days Qty: 30 2RF quetiapine 25 mg Tablet 25 mg PO BID PRN (Reason: Anxiety) 15 Days Qty: 30 0RF Continued budesonide-formoterol [Symbicort] 160-4.5 mcg/actuation HFA aerosol inhaler 1 inh inhalation BID Qty: 10.2 0RF albuterol sulfate 90 mcg/actuation HFA aerosol inhaler 2 inh INHALATION Q4-6H PRN (Reason: shortness of breath or wheezing) Qty: 18 0RF Rx Instructions: administer with spacer melatonin 5 mg Tablet 8 mg PO QHS PRN (Reason: sleep) Follow Up: [facility] [Outside] ( ) [facility] [Primary Care Provider] - (Contact your PCP with medicalneeds. ) Exam Physical Exam Vital Signs: Temp Pulse Resp BP Pulse Ox O2 Del Method 97.8 F 67 16 144/91 H 96 Room Air 01/18/24 20:00 01/18/24 20:00 01/18/24 20:00 01/18/24 20:00 01/18/24 20:00 01/18/24 20:00 Documented By: Phillip Davis MD 4 0639 Signed By: <Electronically signed by Phillip Davis MD> 01/19/24 0643 [facility] Work Phone: 1(707) 797-780409-09-2024 Hospital Discharge instructions Additional Instructions Important Contact Information You can call [facility] at [phone] any time day or night if you have emergent questions or question regarding discharge instructions. If at any time you are feeling an increase in your psychiatric symptoms, call your physician or behavioral healthcare provider. If any time you have thoughts of harming yourself or others contact one of the following: Call 98-8 (available 02/12) Crisis Text Line (available 02/12) text 4HOPE to [phone] [facility] Hope Line (available 8 a.m. Midnight) call [phone] ([phone]) [facility] Work Phone: 1(795) 562-729809-08-2024 Progress note Author Brent Simmons [facility] January 18, 2024 11:44am Note Date/Time January 18, 2024 11:44am [facility] [address] [place] [address] Psychiatry Progress Note Signed Patient: Roshan Willingham MR#: [id number] : 1990 Acct:[id number] Age/Sex: 33 / F Adm Date: 4 Loc: Room: [address] [place] [address] Type : ADM IN Attending Dr: Brent Simmons MD Copies to: ~ Date of Service: 01/18/2024 Subjective Subjective Narrative: Ms. Willingham reported that she is doing a lot better. She feels like her mood is more steady. She does report feeling antsy at times and feels like her body gets antsy. She is starting to attribute some of this due to her hospitalization. She reported that she likes her current medications and feels like they are helping overall. Mental Status Exam: Appearance: grossly normal Mental Status: mental status grossly normal Mood: Anxious mood Affect: Improving affect Speech and Movement: speech normal, movement normal Attitude: cooperative Thought Process: normal Thought Content: Denied hallucinations, no homicidality, reported improving suicidality and self-harm thoughts Insight: fair Judgment: fair Exam Physical Exam Vital Signs: Temp Pulse Resp BP Pulse Ox O2 Del Method 97.9 F 73 16 136/81 97 Room Air 01/18/24 07:30 01/18/24 07:30 01/18/24 07:30 01/18/24 07:30 01/18/24 07:30 01/18/24 09:00 Abnormal Involuntary Movement Dental Status Are dentures usually worn?: No Assessment/Plan Assessment/Plan (1) Borderline personality disorder: (2) Major depression: Plan Patient seems to doing better, anticipate discharge tomorrow Continue Seroquel 50 mg at bedtime and transition Pristiq to 25 mg at bedtime Can use Seroquel 25 mg twice a day as needed for anxiety Continue to monitor mental status Encourage group participation and medication compliance Risk benefits alternatives explained Documented By: Brent Simmons MD 01/18/241142 Signed By: <Electronically signed by Brent Simmons MD> 01/18/241143 [facility] Work Phone: 1(593) 550-691809-07-2024 Progress note Author Brent Simmons [facility] January 17, 2024 12:48pm Note Date/Time January 17, 2024 12:48pm [facility] [address] [place] [address] Psychiatry Progress Note Signed Patient: Roshan Willingham MR#: [id number] : 1990 Acct:[id number] Age/Sex: 33 / F Adm Date: 4 Loc: Room: [address] [place] [address] Type : ADM IN Attending Dr: Brent Simmons MD Copies to: ~ Date of Service: 01/17/2024 Subjective Subjective Narrative: Ms. Willingham reported that she is doing good today. She stated that she had a pretty decent day yesterday. She is tolerating her medications. She slept better with increased dose of Seroquel overnight and reported that she noticed areduction in waking up through the night. She stated that she did have some anxiety but has been able to work through it. She rates her anxiety as 6 out of10 and her depression is 1 out of 10. Mental Status Exam: Appearance: grossly normal Mental Status: mental status grossly normal Mood: Anxious mood Affect: Improving affect Speech and Movement: speech normal, movement normal Attitude: cooperative Thought Process: normal Thought Content: Denied hallucinations, no homicidality, reported improving suicidality and self-harm thoughts Insight: fair Judgment: fair Exam Physical Exam Vital Signs: Temp Pulse Resp BP Pulse Ox O2 Del Method 97.4 F L 52 L 17 150/90 H 97 Room Air 01/17/24 07:30 01/17/24 07:30 01/17/24 07:30 01/17/24 07:30 01/17/24 07:30 01/17/24 07:30 Abnormal Involuntary Movement Dental Status Are dentures usually worn?: No Assessment/Plan Assessment/Plan (1) Borderline personality disorder: (2) Major depression: Plan Patient reported still having some anxiety issues, depressive symptoms seem to be improving Continue Seroquel 50 mg at bedtime and transition Pristiq to 25 mg at bedtime Can use Seroquel 25 mg twice a day as needed for anxiety Continue to monitor mental status Encourage group participation and medication compliance Risk benefits alternatives explained Documented By: Brent Simmons MD 01/17/241246 Signed By: <Electronically signed by Brent Simmons MD> 01/17/24 1248 [facility] Work Phone: 1([phone]) 434-752109-06-2024 Progress note Author Brent Simmons [facility] January 16, 2024 2:09pm Note Date/Time January 16, 2024 2:09pm [facility] [address] [place] [address] Psychiatry Progress Note Signed Patient: Roshan Willingham MR#: [id number] : 1990 Acct:[id number] Age/Sex: 33 / F Adm Date: 4 Loc: 1S Room: [address] [place] [address] Type : ADM IN Attending Dr: Brent Simmons MD Copies to: ~ Date of Service: 01/16/2024 Subjective Subjective Narrative: Ms. Willingham reported that she is sleepy today. She reported that the Pristiq maybe making her tired. We discussed about moving this at bedtime and she was in agreement with this. She feels like her anxiety does slate picker at times and does not last the duration of the Vistaril. Mental Status Exam: Appearance: grossly normal Mental Status: mental status grossly normal Mood: Anxious mood Affect: Improving affect Speech and Movement: speech normal, movement normal Attitude: cooperative Thought Process: normal Thought Content: Denied hallucinations, no homicidality, reported improving suicidality and self-harm thoughts Insight: fair Judgment: fair Exam Physical Exam Vital Signs: Temp Pulse Resp BP Pulse Ox O2 Del Method 97.9 F 60 18 139/78 97 Room Air 01/16/24 07:30 01/16/24 07:30 01/16/24 07:30 01/16/24 07:30 01/16/24 07:30 01/16/24 07:30 Abnormal Involuntary Movement Dental Status Are dentures usually worn?: No Assessment/Plan Assessment/Plan (1) Borderline personality disorder: (2) Major depression: Plan Patient reported still having some anxiety issues Continue Seroquel 50 mg at bedtime and transition Pristiq to 25 mg at bedtime Can use Seroquel 25 mg twice a day as needed for anxiety Continue to monitor mental status Encourage group participation and medication compliance Risk benefits alternatives explained Documented By: Brent Simmons MD 01/16/24 1408 Signed By: <Electronically signed by Brent Simmons MD> 01/16/24 1409 [facility] Work Phone: 1(479) 773-638009-05-2024 Progress note Author Brent Simmons [facility] January 15, 2024 1:55pm Note Date/Time January 15, 2024 1:55pm [facility] [address] [place] [address] Psychiatry Progress Note Signed Patient: Roshan Willingham MR#: [id number] : 1990 Acct:[id number] Age/Sex: 33 / F Adm Date: 4 Loc: Room: [address] [place] [address] Type : ADM IN Attending Dr: Brent Simmons MD Copies to: ~ Date of Service: 01/15/2024 Subjective Subjective Narrative: Ms. Willingham reported that she is feeling a bit better. She reported that yesterday she was very angry and was irritable. She reported that the Seroquel did help with her sleep a little bit but she did wake up through the night. Shestated that she also had some thoughts of self-harm and suicidal thoughts yesterday. Mental Status Exam: Appearance: grossly normal Mental Status: mental status grossly normal Mood: dysthymic mood Affect: dysphoric affect Speech and Movement: speech normal, movement normal Attitude: cooperative Thought Process: normal Thought Content: Denied hallucinations, no homicidality, reported suicidality and self-harm thoughts Insight: fair Judgment: fair Exam Physical Exam Vital Signs: Temp Pulse Resp BP Pulse Ox O2 Del Method 98.3 F 62 18 133/87 99 Room Air 01/15/24 07:30 01/15/24 07:30 01/15/24 07:30 01/15/24 07:30 01/15/24 07:30 01/15/24 07:30 Abnormal Involuntary Movement Dental Status Are dentures usually worn?: No Assessment/Plan Assessment/Plan (1) Borderline personality disorder: (2) Major depression: Plan Patient reported still experiencing some depression and self-harm thoughts Continue Pristiq 25 mg daily Increase Seroquel 50 mg at bedtime Continue to monitor mental status Encourage group participation and medication compliance Risk benefits alternatives explained Documented By: Brent Simmons MD 01/15/241353 Signed By: <Electronically signed by Brent Simmons MD> 01/15/24 1354 [facility] Work Phone: 1(570) 626-737109-04-2024 Progress note Author Brent Simmons [facility] January 14, 2024 12:43pm Note Date/Time January 14, 2024 12:43pm [facility] [address] [place] [address] Psychiatry Progress Note Signed Patient: Roshan Willingham MR#: [id number] : 1990 Acct:[id number] Age/Sex: 33 / F Adm Date: 4 Loc: 1S Room: [address] [place] [address] Type : ADM IN Attending Dr: Brent Simmons MD Copies to: ~ Date of Service: 01/14/2024 Subjective Subjective Narrative: Ms. Willingham reported that she is doing a bit better. She stated that she had a rough night yesterday and had some anxiety and some urges of self-harm. She felt that she was somewhat overstimulated as well. She tolerated the Pristiq and denied any side effects. She reported that her sleep is still somewhat decreased. She stated that she has been frustrated about how she has been doingbut is more interested to see if the medication will help now that she is dealing with her eating disorder better. X: Voice normal, soft palate elevationnormal, symmetrical, CNXI: Shoulder shrug strong, equal bilaterally, CNXII: Tongue protrusion midline, movement symmetrical. Extrem: normal to inspection and full ROM Mental Status Exam: Appearance: grossly normal Mental Status: mental status grossly normal Mood: dysthymic mood Affect: dysphoric affect Speech and Movement: speech normal, movement normal Attitude: cooperative Thought Process: normal Thought Content: Denied hallucinations, no homicidality, reported suicidality Insight: fair Judgment: fair Exam Physical Exam Vital Signs: Temp Pulse Resp BP Pulse Ox O2 Del Method 98.1 F 50 L 18 123/85 95 Room Air 01/14/24 07:30 01/14/24 07:30 01/14/24 07:30 01/14/24 07:30 01/14/24 07:30 01/14/24 09:00 Abnormal Involuntary Movement Dental Status Are dentures usually worn?: No Assessment/Plan Assessment/Plan (1) Borderline personality disorder: (2) Major depression: Plan Patient reported still experiencing some depression and self-harm thoughts Continue Pristiq 25 mg daily Will add Seroquel 25 mg at bedtime for sleep and impulsive thoughts Continue to monitor mental status Encourage group participation and medication compliance Risk benefits alternatives explained Documented By: Brent Simmons MD 01/14/24 1242 Signed By: <Electronically signed by Brent Simmons MD> 01/14/24 1243 [facility] Work Phone: 1(941) 962-912509-03-2024 History and physical note Author Brent Simmons [facility] January 13, 2024 3:00pm Note Date/Time January 13, 2024 3:00pm [facility] [address] [place] [address] Psychiatry H&P Signed Patient: Roshan Willingham MR#: [id number] : 1990 Acct:[id number] Age/Sex: 33 / F Adm Date: 4 Loc: Room: [address] [place] [address] Type: ADM IN Attending Dr: Brent Simmons MD Copies to: Brent Simmons MD [facility]~ Date of Service: 01/13/2024 HPI History of Present Illness History of present illness: Ms. Willingham is a 33 year old female who presented due to concern for depression and suicidal ideation upon assessment, patient reported that she has been feeling depressed. She reported that she was discharged from a residential eating disorder clinic at the end of August. She reported that to her outpatientmade her ago. She stated that she has been trying to be insightful about what is going on with her. She stated that current eating issues have improved. Shereported that she feels depressed and anxious. She reported that her depressionhas been increasing over the past 1 month. She reported that she stopped her medications due to insurance issues. She reported that she is not dealing with the eating disorder as much as she used to in the past. Psychiatric history: Endorses history of depression, anxiety, [...] Denies abnormal movements Psychiatric: Reports depression and suicidal ideation Physical exam: Const: cooperative Nutritional Appearance: average [...] Skin: no rashes or lesions noted Neuro: CNI: Normal olfaction CNI: normal olfaction CNII: Visual stover intact, CNIII,IV,: EOM intact, no nystagmus. Pupils equal, round, reactive to light and accommodation, CNV: Sensation intact to light touch, CNVII: Raises eyebrows, smile/frown, puff out cheeks symmetrically, CNVIII: Hearing intact bilaterally, CNIX,X: Voice normal, soft palate elevation normal, symmetrical, CNXI: Shoulder shrug strong, equal bilaterally, CNXII: Tongue protrusion midline, movement symmetrical. Extrem: normal to inspection and full ROM Mental Status Exam: Appearance: grossly normal Mental Status: mental status grossly normal Mood: dysthymic mood Affect: dysphoric affect Speech and Movement: speech normal, movement normal Attitude: cooperative Thought Process: normal Thought Content: Denied hallucinations, no homicidality, reported suicidality Insight: fair Judgment: fair [facility] Medical History Borderline personality disorder Anorexia Pneumonia Asthma Eating disorder bulimia/anorexia Overdose PSYCH MEDICATION OVERDOSE JULY 2019, 2 OTHER OD'S IN PAST ON PSYCH MEDICATION Depression Anxiety Bruno disease History of kidney infection BOUCHRA (acute kidney injury) Surgical History History of gastrostomy as an infant History of neck surgery CRICOID SPLIT A BABY Family History Mother Anxiety Depression COPD (chronic obstructive pulmonary disease) Myocardial infarction Mother No problems noted. Social History Smoking Status: Current every day smoker Tobacco Type: cigarettes and e-cigarettes Substance Use Type: Marijuana Substance Abuse Comment: THC Social History Comments: grandmother Meds Medications and Allergies Allergies cranberry Allergy (Verified 01/12/24 21:25) Hives Penicillins Allergy (Verified 03/21/23 07:58) Rash prochlorperazine [From Compazine] Adverse Reaction (Verified 03/21/23 07:58) Irritable apple Allergy (Uncoded 01/12/24 21:25) Unknown Reaction Home Medications albuterol sulfate 90 mcg/actuation aerosol inhaler 2 inh inhalation Q4-6H PRN shortness of breath or wheezing #18 grams 07/24/22 [Rx Confirmed 01/12/24] budesonide-formoterol HFA 160 mcg-4.5 mcg/actuation aerosol inhaler (Symbicort) 1 inh inhalation BID #10.2 grams 07/24/22 [Rx Confirmed 01/12/24] melatonin 5 mg tablet 8 mg PO QHS PRN sleep 01/12/24 [History Confirmed 01/12/24] Exam Physical Exam Vital Signs: Temp Pulse Resp BP Pulse Ox O2 Del Method 98.1 F 58 L 18 134/99 100 Room Air 01/13/24 07:30 01/13/24 07:30 01/13/24 07:30 01/13/24 07:30 01/13/24 07:30 01/13/24 07:30 Abnormal Involuntary Movement Dental Status Are dentures usually worn?: No Assessment/Plan (1) Borderline personality disorder: (2) Major depression: Plan Patient presenting due to concern for depression and impulsive suicidal thoughtsof overdosing on medications Will start Pristiq 25 mg daily Continue to monitor mental status Encourage group participation and medication compliance Risk benefits alternatives explained Documented By: Brent Simmons MD 01/13/24 7229 Signed By: <Electronically signed by Brent Simmons MD> 01/13/24 1500 [facility] Work Phone: 1(249) 309-791809-02-2024 Evaluation note* Diagnosis Onset Date Resolution Status Admit Date Borderline personality disorder acute January 11, 2 024 8:52pm Major depression acute Janembe r 2023 8:52pm Acute lower respiratory infection acute April 01, 2 024 2:16pm [facility] Work Phone: 1(158) 370-413003-07-2024 [facility]2024 Note [facility]01[facility] 07-09-2023 [facility]2024 Note [facility]24[facility]14-[facility]24 Instructions* Patient Instructions* Kahti Zamora RD - 06/25/2023 4:00 PM EST Sip on water throughout the day. Avoid diuretic use if possible. Start B12 supplement as prescribed Go to the [facility] Emergency Department and communicate that you have Anorexia and you plan to start treatment with the [facility], but they requested you be nutritionally stabilized prior to transitioning to their program. While inpatient, they will use the Nutrition Insufficiency Protocol to help you get nutritionally stabilized. 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 [facility] History of Present illness Narrative* Kathi Zamora RD - 06/25/2023 12:18 PM EST [facility] Nutrition Therapy: Virtual Consult - Initial Assessment I have communicated my name and active licensure. The patient s identity and physical location wereverified at the time of this visit. Either the patient or their legal sales account representative has been informed of the risks and benefits of -- and alternatives to -- treatment through a remote evaluation andconsents to proceed with the evaluation remotely. Nutrition [...] B12 supplement as prescribed Go to the [facility] Emergency Department and communicate that [...] toes, hair thinning, nausea when she tries toeat, lightheadedness, and shakiness (even after eating). Patient [...] -wasn't able to see an RD near [place] because of concerns with refeeding syndome -Struggled with ED when 16 yo, but recently has gotten bad again - restricting and using daily OTC diuretics (history of laxative abuse - currently uses a laxative on weekends every couple of weeks to make up for food consumed throughout that week) -[facility] counselor near [place] out of pocket for past 8 months or so -works at [employer] -weighed 170# last August 2022, now 130# [...] low potassium. Has had low Vit D inthe past. -finds it difficult to drink fluids, even water -takes diuretics to get rid of the coffee and diet coke so she doesn't have to feel guilty - wedid discuss this, but patient notes she understands her perspective doesn't make sense -works at [employer] Activity: Activities of Daily Living: Sedentary (Desk [...] SIGNATURE: Kathi Zamora RD PATIENT NAME: Roshan Willingham DATE: 06/25/2023 TIME: 12:18 PM PAGER: [phone] documented in this encounterS[facility]07-06-2023 Miscellaneous Notes* Telephone Encounter - Kay Ortiz RN - 11/14/2022 10:25 AM EDT Message left on Vm I was calling to inquire about work up for gallbladder as I do not see any in the chart or Care Everywhere. Informed to call the office to discuss and we would need this information for the appt tomorrow. documented in this encounterS[facility]06-14-2023 Discharge summary Author Brent Simmons [facility] October 23, 2022 11:35am Note Date/Time October 23, 2022 11:3 1am [facility] [address] [place] [address] Discharge Summary Signed Patient: Roshan Willingham MR#: [id number] : 1990 Acct:[id number] Age/Sex: 32 / F Adm Date: 3 Loc: 1S Room: [address] [place] [address]: Brent Simmons MD Copies to: MD Letty Sanchez RESOURCE EFFICIENCY MANAGER-C~ Providers Date of Discharge: 10/23/22 Discharging Provider: Brent Simmons Primary Care Provider: Letty Torres Consults: 10/12/22 14:11 Consult to Gastroenterology Routine 10/13/22 19:06 Consult to Dietitian Routine Discharge Diagnosis (1) Eating disorder: (2) Bipolar affect, depressed: (3) Borderline personality disorder: Final Diagnosis Final Discharge Diagnosis: Unspecified bipolar disorder Borderline personality disorder Summary Hospital Course Hospital course: According to admission note: Ms. Willingham is a 32 year old female who [...] medications.? She had previously been seen by [facility] counseling, but states the wait list [...] No Activity Restrictions Instructions: Bipolar Disorder (DC), [facility] Behavioral Health DC Instructions Prescriptions: New nicotine [...] Rx Instructions: administer with spacer Follow Up: [facility] [Outside] ( key account manager: (Insert date/time here) Therapy:? (insert date/time here) Intake: (Insert date/time here) Please bring a copy of your photo ID, insurance card, and proof of household income.? Psychiatry: (Insert date/time here) Group: (Insert date/time here ) ) [facility] Hotline [Outside] Letty Torres NP-C [Primary Care Provider] - Documented By: Brent Simmons MD 10/23/22 1129 Signed By: <Electronically signed by Brent Simmons MD> 10/23/22 1135 [facility] Work Phone: 1(442) 102-822306-13-2023 Progress note Author Brent Simmons [facility] October 22, 2022 11:36am Note Date/Time October 22, 2022 11:3 6am [facility] [address] [place], [place] [address] Psychiatry Progress Note Signed Patient: Roshan Willingham MR#: [id number] : 1990 Acct:[id number] Age/Sex: 32 / F Adm Date: 3 Loc: 1S Room: [address] [place] [address] Type : ADM IN Attending Dr: Brent [...] mg daily and 450 mg PO QHS Franquez level is 0.9. Dose was increased to 300 mg PO Q am and 450 mg PO QHS. Continue to monitor mental status Encourage group participation and medication compliance Risk benefits alternatives explained Documented By: Brent Simmons MD 10/22/22 998 Signed By: <Electronically signed by Brent Simmons MD> 10/22/22 9671 [facility] Work Phone: 1(568) 701-321006-12-2023 Progress note Author Brent Simmons [facility] October 21, 2022 11:49am Note Date/Time October 21, 2022 11:4 9am [facility] [address] [place], [place] [address] Psychiatry Progress Note Signed Patient: Roshan Willingham MR#: [id number] : 1990 Acct:[id number] Age/Sex: 32 / F Adm Date: 3 Loc: Room: [address] [place] [address] Type : ADM IN Attending Dr: Brent [...] mg daily and 450 mg PO QHS Franquez level is 0.9. Dose was increased to 300 mg PO Q am and 450 mg PO QHS. Continue to monitor mental status Encourage group participation and medication compliance Risk benefits alternatives explained Documented By: Brent Simmons MD 10/21/22 1148 Signed By: <Electronically signed by Brent Simmons MD> 10/21/22 1149 [facility] Work Phone: 1(256) 800-267606-11-2023 Progress note Author Phillip arriaza [facility] October 20, 2022 6:37am Note Date/Time October 20, 2022 6:37 am [facility] [address] [place] [address] Psychiatry Progress Note Signed Patient: Roshan Willingham MR#: [id number] : 1990 Acct:[id number] Age/Sex: 32 / F Adm Date: 3 Loc: Room: [address] [place] [address] Type : ADM IN Attending Dr: Brent [...] mg daily and 450 mg PO QHS Franquez level is 0.9. Dose was increased to 300 mg PO Q am and 450 mg PO QHS. Continue to monitor mental status Encourage group participation and medication compliance Risk benefits alternatives explained Documented By: Phillip Davis MD 3 0633 Signed By: <Electronically signed by Phillip Davis MD> 10/20/22 0637 [facility] Work Phone: 1(692) 305-397706-10-2023 Progress note Author Phillip arriaza [facility] October 19, 2022 7:28am Note Date/Time October 19, 2022 7:25 am [facility] [address] [place] [address] Psychiatry Progress Note Signed Patient: Roshan Willingham MR#: [id number] : 1990 Acct:[id number] Age/Sex: 32 / F Adm Date: 3 Loc: Room: [address] [place] [address] Type : ADM IN Attending Dr: Brent [...] mg daily and 450 mg PO QHS Franquez level is 0.9. Dose was increased to 300 mg PO Q am and 450 mg PO QHS. Continue to monitor mental status Encourage group participation and medication compliance Risk benefits alternatives explained Documented By: Phillip Davis MD 3 0725 Signed By: <Electronically signed by Phillip Davis MD> 10/19/22 0728 [facility] Work Phone: 1(640) 131-182206-09-2023 Progress note Author Phillip arriaza [facility] October 18, 2022 7:56am Note Date/Time October 18, 2022 7:55a m [facility] [address] [place] [address] Psychiatry Progress Note Signed Patient: Roshan Willingham MR#: [id number] : 1990 Acct:[id number] Age/Sex: 32 / F Adm Date: 3 Loc: Room: [address] [place] [address] Type : ADM IN Attending Dr: Brent [...] mg daily and 450 mg PO QHS Franquez level is 0.9. Dose was increased to 300 mg PO Q am and 450 mg PO QHS. Continue to monitor mental status Encourage group participation and medication compliance Risk benefits alternatives explained Documented By: Phillip Davis MD 3 0754 Signed By: <Electronically signed by Phillip Davis MD> 10/18/22 0756 [facility] Work Phone: 1(558) 693-402906-08-2023 Progress note Author Phillip arriaza [facility] October 17, 2022 8:11am Note Date/Time October 17, 2022 8:11a m [facility] [address] [place] [address] Psychiatry Progress Note Signed Patient: Roshan Willingham MR#: [id number] : 1990 Acct:[id number] Age/Sex: 32 / F Adm Date: 3 Loc: Room: [address] [place] [address] Type : ADM IN Attending Dr: Brent [...] Continue lithium 300 mg twice a day Franquez level is pending. Continue to monitor mental status Encourage group participation and medication compliance Risk benefits alternatives explained Documented By: Phillip Davis MD 3 0808 Signed By: <Electronically signed by Phillip Davis MD> 10/17/22 0811 [facility] Work Phone: 1(114) 301-162006-07-2023 Progress note Author Phillip arriaza [facility] October 16, 2022 8:37am Note Date/Time October 16, 2022 8:37a m [facility] [address] [place] [address] Psychiatry Progress Note Signed Patient: Roshan Willingham MR#: [id number] : 1990 Acct:[id number] Age/Sex: 32 / F Adm Date: 3 Loc: Room: [address] [place] [address] Type : ADM IN Attending Dr: Brent [...] signed by Phillip Davis MD> 10/16/22 0837 [facility] Work Phone: 1(961) 298-725006-06-2023 Progress note Author Phillip arriaza [facility] October 15, 2022 7:51am Note Date/Time October 15, 2022 7:51a m [facility] [address] [place] [address] Psychiatry Progress Note Signed Patient: Roshan Willingham MR#: [id number] : 1990 Acct:[id number] Age/Sex: 32 / F Adm Date: 3 Loc: 1S Room: 1G1487-3 Type : ADM IN Attending Dr: Brent [...] therapist and attending the eating program in [place]. Mental Status Exam: Appearance: grossly normal Mental [...] signed by Phillip Davis MD> 10/15/22 0751 [facility] Work Phone: 1(165) 936-671606-05-2023 Progress note Author Brent Simmons [facility] October 14, 2022 11:39am Note Date/Time October 14, 2022 9:51a m [facility] [address] [place] [address] Psychiatry Progress Note Signed Patient: Roshan Willingham MR#: [id number] : 1990 Acct:[id number] Age/Sex: 32 / F Adm Date: 3 Loc: Room: [address] [place] [address] Type : ADM IN Attending Dr: Brent [...] <Electronically signed by Brent Simmons MD> 10/14/22 4033 [facility] Work Phone: 1(621) 302-981906-04-2023 Progress note Author Brent Simmons [facility] October 13, 2022 11:34am Note Date/Time October 13, 2022 11:26 am [facility] [address] [place] [address] Psychiatry Progress Note Signed Patient: Roshan Willingham MR#: [id number] : 1990 Acct:[id number] Age/Sex: 32 / F Adm Date: 3 Loc: Room: [address] [place] [address] Type : ADM IN Attending Dr: Brent [...] alternatives explained Documented By: Brent Simmons MD 10/13/22 112 Signed By: <Electronically signed by Brent Simmons MD> 10/13/22 1134 [facility] Work Phone: 1(957) 480-237706-04-2023 Consult note Author López Aranda [facility] October 13, 2022 10:49am Note Date/Time October 13, 2022 10:42 am [facility] [address] [place] [address] Gastroenterology Consult Note Signed Patient: Roshan Willingham MR#: [id number] : 1990 Acct:[id number] Age/Sex: 32 / F Adm Date: 3 Loc: Room: [address] [place] [address] Type: ADM IN Attending Dr: Brent Simmons MD Copies to: MD López Sanchez MD Shannon Lynae Studer RESOURCE EFFICIENCY MANAGER-C~ HPI Data of Consult Date of Consultation: 10/13/22 Requesting Physician: Brent Simmons MD Consult Narrative History of present illness: Ms. Willingham is a 32 year old female who [...] She just started with new PCP in [place]. She had a abd U/S which showed [...] falls Psychiatric Psychiatric: Reports as per HPI [facility] Vaccinated for COVID-19?: Unknown Medical History (Updated [...] <Electronically signed by López Aranda MD> 10/13/22 1049 [facility] Work Phone: 1(722) 151-175106-03-2023 Progress note Author Brent Simmons [facility] October 12, 2022 11:20am Note Date/Time October 12, 2022 11:03 am [facility] [address] [place] [address] Psychiatry Progress Note Signed with Addenda Patient: Roshan Willingham MR#: [id number] : 1990 Acct:[id number] Age/Sex: 32 / F Adm Date: 3 Loc: 1S Room: 0I1073-7 Type : ADM IN Attending Dr: Brent [...] ULTRASOUND. Addendum Documented By: Brent Simmons MD 10/12/22 1120 Addendum Signed By: <Electronically signed by Brent Simmons MD> 10/12/22 112 Date of Service: 10/12/2022 Subjective Subjective Narrative: [...] alternatives explained Documented By: Brent Simmons MD 10/12/22 110 Signed By: <Electronically signed by Brent Simmons MD> 10/12/221102 [facility] Work Phone: 1(862) 108-680706-02-2023 Progress note Author Brent Simmons [facility] October 11, 2022 11:44am Note Date/Time October 11, 2022 11:04 am [facility] [address] [place] [address] Psychiatry Progress Note Signed Patient: Roshan Willingham MR#: [id number] : 1990 Acct:[id number] Age/Sex: 32 / F Adm Date: 3 Loc: 1S Room: [address] [place] [address] Type : ADM IN Attending Dr: Brent [...] signed by Brent Simmons MD> 10/11/22 1144 [facility] Work Phone: 1(422) 346-320206-01-2023 History and physical note Author Brent Simmons [facility] October 10, 2022 11:34am Note Date/Time October 10, 2022 11:28 am [facility] [address] [place] [address] Psychiatry H&P Signed Patient: Roshan Willingham MR#: [id number] : 1990 Acct:[id number] Age/Sex: 32 / F Adm Date: 3 Loc: Room: [address] [place] [address] Type: ADM IN Attending Dr: Brent Simmons MD Copies to: MD Letty Sanchez NP-C~ Date of Service: 10/10/2022 HPI History of Present Illness History of present illness: Ms. Willingham is a 32 year old female who [...] medications. She had previously been seen by [facility] counseling, but states the wait list [...] with the medical student as notedbelow. Patient presented due to concern of suicidal [...] F 72 12 133/84 98 Room Air 06/01/23 07:30 10/10/22 07:30 10/10/22 07:30 10/10/22 07:30 [...] Cloudy A Urine pH 5.5 Ur Specific [facility] 1.027 Urine Protein Trace H Urine Glucose [...] <Electronically signed by Brent Simmons MD> 10/10/22 7474 [facility] Work Phone: 1(479) 219-498303-15-2023 Hospital Discharge instructions Additional Instructions Continue your [...] breathing unable to swallow or any other [facility] Work Phone: 1(460) 554-680102-10-2023 Miscellaneous Notes* Telephone Encounter - Coleen Miller - 06/21/2022 1:09 PM EST Left VM to call office to update registration and go over records needed for review. * Telephone Encounter - Coleen Miller - 06/21/2022 7:35 AM EST ----- Message from Zakiya Brock sent at 06/19/2022 11:28 AM EST ----- Regarding: Gastroparesis Roshan Willingham is being referred to or the Gastroparesis [...] G/J Tube?No Preferred phone number for contact: [phone] Send to GASTROPARESIS SCHEDULING POOL [[phone]] documented in this [facility] note Author Phani Rick [facility] December 11, 2021 3:22pm Note Date/Time December 10, 2021 6:0 3pm [facility] [address] [place] [address] Hospitalist Consult Note Signed Patient: Roshan Willingham MR#: [id number] : 1990 Acct:[id number] Age/Sex: 31 / F Adm Date: 2 Loc: Room: [address] [place] [address] Type: ADM IN Attending Dr: Brent Simmons MD Copies to: Brent Simmons MD [facility] DEIRDRE Dawson, DO~ HPI DATE OF CONSULTATION: 12/10/21 REQUESTING [...] in inpatient treatment for this previously at [facility]. She indicates she is a failure at [...] noted below or in HPI [facility] Attestation Statement: The following information was validated [...] 20:23 400 mg Q6H PRN Administration Pain Franquez Carbonate 450 mg 12/06/21 22:00 12/09/21 21:16 Franquez Carbonate 450 Mg Tablet.Er PO 12/06/22 21:59 [...] % (Auto) 70.4, Lymph % (Auto) 21.2, [place] % (Auto) 5.7, Eos % (Auto) 2.3, Baso % (Auto) 0.4, Neut # (Auto) 6.2, Lymph # (Auto) 1.9, [place] # (Auto) 0.5, Eos# (Auto) 0.2, Baso [...] signed by Phani Rick DO> 12/11/21 1522 [facility] Work Phone: Discharge summary Author Brent Troy [facility] December 18, 2021 12:49pm Note Date/Time December 18, 2021 12: 42pm [facility] [address] [place] [address] Discharge Summary Signed Patient: Roshan Willingham MR#: [id number] : 1990 Acct:[id number] Age/Sex: 31 / F Adm Date: 2 Loc: Room: [address] [place] [address]: Brent Simmons MD Copies to: Brent Simmons MD [facility]~ Providers Date of Discharge: 12/18/21 Discharging Provider: Brent Simmons Primary Care Provider: Services [facility] Consults: 12/06/21 21:57 Consult to Case Management Routine 12/06/21 21:59 Consult to Dietitian Routine 12/10/21 17:48 Consult to Adult Hospitalist Routine 12/12/21 03:12 Consult to Dietitian Routine Discharge Diagnosis (1) Eating disorder: (2) Borderline personality disorder: Final Diagnosis Final Discharge Diagnosis: Major depressive disorder Borderline personality disorder Summary Hospital Course Hospital course: According to admission note: Ms. Willingham is a 31 year old female who [...] phone calls to the eating disorder called [facility] to try to get an appointment.? She [...] the medications ofAbilify Maintena paxil, and Zyprexa. Franquez was continued. She showed gradual improvement during [...] No activity restrictions. Instructions: Borderline Personality Disorder, [facility] Behavior[facility] DC Instructions Stand Alone Forms: [...] tablet 5 mg PO DAILY.WITH.SUPPER Follow Up: [facility] Hotline [Outside] [facility] [Outside] - 12/18/21 2:30 pm ( Therapy:? Friday12/19/21 @ 9AM with Odalis Nurse: Friday12/18/21 @ 2:30PM for a med set until you can see Mak on . You will see Luyulisa for your next med set this , 12/20/21 @ 2:30PM. You will receive your next Abilify injection on Friday01/15/22 at 12:30PM. Psychiatry: Friday01/01/22 @ 10:45AM with Dr. Shah ) Documented By: Brent Simmons MD 12/18/211238 Signed By: <Electronically signed by Brent Simmons MD> 12/18/21 1249 [facility] Work Phone: Discharge summary Author Brent Simmons [facility] Note Date/Time May 24, 2024 1 2:03pm [facility] [address] [place], [place] [address] Discharge Summary Signed Patient: Roshan Willingham MR#: [id number] : 1990 Acct:[id number] Age/Sex: 33 / F Adm Date: 5 Loc: 1S Room: 1E2582-[address]: Phillip Davis MD Copies to: MD Brent Shell MD [facility] SERVICES~ Providers Date of Discharge: 05/24/24 Discharging Provider: Brent Simmons Primary Care Provider: Services Family Health Consults: 05/16/24 18:04 Consult to Case Management Routine Comment: CM Reason for Consult: Other Other and/or Abuse/Neglect Consult Reasons: Discharge planning. 05/16/24 18:07 Consult to Case Management Routine Comment: CM Reason for Consult: Other Other and/or Abuse/Neglect Consult Reasons: Wants discharge to maternal grandparents or to fci Discharge Diagnosis (1) Marijuana abuse: (2) Borderline personality disorder: (3) Generalized anxiety disorder: Final Diagnosis Final Discharge Diagnosis: Borderline personality disorder Generalized anxiety disorder Summary Hospital Course Hospital course: Ms. Willingham is a 33 year old female reported history of depression, anxiety and borderline personality disorder who presents for inpatient mission due to feeling suicidal. Reportedly, patient presented from the hospital stating that she is feeling suicidal and struggling with self injurious thoughts. At the time of the interview, she presented as tearful, reports she has been off her meds since February. She states It was a hot mess getting to appointments and getting my meds figured out. She is currently following up with private practice therapist in [facility] and stated that they do not see eye to eye. Patient stated that she needs to follow-up with the crisis center to ensure her stability. Patient is well-known to myself as I had previously treated her in the outpatient [facility] counseling recovery. She has significant eating disorders and very poor impulse control. Unfortunately thereis no medication that is going to treat that. The best evidence treatment requires extensive DBT and the long-term process. Her insight is limited about that as she is struggling with attention seeking behavior most of the time. Shestates she thinks the meds she was on previously were helping. Patient states her parents are the opposite of supportive and my mom makes me feel like I'mthe worst person in the world. She states that her maternal grandparents are somewhat supportive. She states her grandparents will let her stay with them upon discharge, but she is also interested in discharge to a fci. She rates her depression at 10 out of 10 with 10 being the worst. She has superficial cuts on her left hand, and she scratched her right wrist with a pop tab. Patient denies illegal drug use. She was positive for THC and states she also vapes but hasn't done that for 6 days. She denies ETOH use. Patient states she is applying for disability. She indicated that she was staying at a shelterfor some time and felt it was not a supportive environment. Important to mention the patient required IM injection since her admission to [facility] due to agitation. She is also on level 2 suicide watch due to self-injurious tendency and cannot contract for safety. Patient identified history of unstable relationships that might contribute to intense, highly changeable moods that can last for several days or for just a few hours. A persistent fear of abandonment and rejection, including extreme emotional reactions to real and even perceived abandonment Patient reports a suicide attempt 2-3 years ago. She stated now that she is suicidal but it's gone beyond that because I genuinely want to do it. The thoughts are going out of control. Patient reports a medical history of asthma. As an she had a gastronomy tube and cricoid split. Patient was restarted on Pristiq which she is tolerated in the past and had goodbenefit from. She tolerated the medication and did not report any side effects. She had gradual improvement of her symptoms of depression and suicidality. Shedid not exhibit any behavior concerning for suicidality during her hospital course. She did not have any conflict with peers or staff. She attended groupsand seemed to socialize with peers appropriately. She was gradually improvementof her symptoms during her hospitalization. Her mood lability improved as well and she seemed to receive benefit from the medication. On the day of discharge,she reported she is feeling better. She denied any depression or suicidality. She was comfortable with the discharge plan home and following up with outpatient services. Time spent discussing smoking cessation with patient: 3 to 10 minutes Condition Condition at Discharge: Stable Status at Discharge Cognitive/behavioral status at discharge: Mental Status Exam: Appearance: grossly normal Mental Status: mental status grossly normal Mood: Euthymic mood Affect: Normal affect Speech and Movement: speech normal, movement normal Attitude: cooperative Thought Process: normal Thought Content: Denied hallucinations, no homicidality and no suicidality Insight: Good Judgment: Good Functional status at discharge: independent ambulation Overall status at discharge: patient is back to baseline Time Spent with Patient Time spent providing/coordinating discharge services (# min): 30 Discharge Plan Discharge Plan Patient Disposition: Home Activity: No Activity Restriction Diet: Regular Additional Instructions: Important Contact Information You can call [facility] at [phone] any time day or night if you have emergent questions or question regarding discharge instructions. If at any time you are feeling an increase inyour psychiatric symptoms, call your physician or behavioral healthcare provider. If any time you have thoughts of harming yourself or others contact one of the following: Call (available 02/12) Crisis Text Line (available 02/12) text 4HOPE to [phone] [facility] Hope Line (available 8 a.m. Midnight) call [phone] ([phone]) Instructions: Depression in adults - Discharge instructions, [facility] DC Instructions, Know your Meds Prescriptions: New quetiapine 25 mg Tablet 25 mg PO BID 30 Days Qty: 60 0RF trazodone 50 mg Tablet 50 mg PO QHS PRN (Reason: Insomnia) Qty: 30 0RF nicotine (polacrilex) 2 mg Gum 2 mg buccal Q2H PRN (Reason: Nicotine Cravings) Qty: 60 0RF naltrexone 50 mg Tablet 50 mg PO DAILY Qty: 30 0RF desvenlafaxine succinate 50 mg Tablet Extended Release 24 Hr 50 mg PO DAILY Qty: 30 0RF melatonin 5 mg Tablet 5 mg PO QHS Qty: 30 0RF Continued budesonide-formoterol [Symbicort] 160-4.5 mcg/actuation HFA aerosol inhaler 1 inh inhalation BID Qty: 10.2 0RF albuterol sulfate 90 mcg/actuation HFA aerosol inhaler 2 inh INHALATION Q4-6H PRN (Reason: shortness of breath or wheezing) Qty: 18 0RF Rx Instructions: administer with spacer Discontinued prednisone 20 mg tablet 20 mg PO .COMPLEX Qty: 18 0RF Rx Instructions: Take 3 tabs po daily x 3 days, then take 2 tabs po daily x 3 days, then take 1 tab po daily x 3 days. [facility] [Other] ( Call at least 48 hours in advance to schedule medical transportation. ) [facility] [Outside] - 05/25/24 (Tax Processor will call you. If you miss this call please return it as soon as possible.) Family Health,Services [Primary Care Provider] - (See for any medical needs. ) Exam Physical Exam Vital Signs: Temp Pulse Resp BP Pulse Ox O2 Del Method 97.6 F 58 L 18 117/81 96 Room Air 05/24/24 07:30 05/24/24 07:30 05/24/24 07:30 05/24/24 07:30 05/24/24 07:30 05/24/24 07:30 Documented By: Brent Simmons MD 05/24/24 1047 Signed By: <Electronically signed by Brent Simmons MD> 05/24/24 1203 [facility] Work Phone: Discharge summary Author Brent Simmons [facility] Note Date/Time July 18, 2024 11:3 3am [facility] [address] [place] [address] Discharge Summary Signed Patient: Roshan Willingham MR#: [id number] : 1990 Acct:[id number] Age/Sex: 33 / F Adm Date: 5 Loc: Room: [address] [place] [address]: Brent Simmons MD Copies to: MD Letty Sanchez RESOURCE EFFICIENCY MANAGER-C~ Providers Date of Discharge: 07/18/24 Discharging Provider: Brent Simmons Primary Care Provider: Letty Torres Discharge Diagnosis (1) Bipolar disease, chronic: (2) Generalized anxiety disorder: Final Diagnosis Final Discharge Diagnosis: Bipolar disorder Generalized anxiety disorder Borderline personality disorder Summary Hospital Course Hospital course: Ms. Willingham is a 33 year old female who presented due to concern for depression and suicidal ideations overdose on medications. She was also self harming by cutting herself while she was at the outpatient office. Upon assessment, patient reported that she has been feeling hopeless. She is concerned about her mental health issues and wonders about if she will ever feelbetter. She feels like her depression has been getting worse despite continuingon with her medication. She reported that she feels stuck and feels like nothing will ever improve for her. She reported that she feels helpless and hasalso been engaging in group therapy. She reported that she has not been able tosee a and visual therapist yet. Psychiatric history: Endorses history of depression, anxiety, anorexia, cutting,suicidality Family psychiatric history: Mother: Anxiety, depression, COPD Psychiatric hospitalizations: History of multiple psychiatric hospitalizations Suicide attempts: History of suicide attempts Employment: Unemployed Living situation: Lives with parents Substance use: Uses marijuana Patient was continued on her home medications. Her dose of Pristiq and Latuda were increased during her hospitalization. She had gradual improvement during her hospitalization. Initially she was very depressed and tearful on the unit, but this gradually improved. As her hospitalization went on she attended groupsand socialize with peers. She started to show a brighter affect and seem to be in better spirits as time went on. She had 1 incident where she made a sharp object from a plastic utensil. But did not use it to harm herself. On the day of discharge, she stated that she was doing better. She denied any depression or suicidality. She stated that she would follow-up with outpatient services and continue her medications. Treatment team was contacted prior to discharge and she felt that that helped to initiate some hope and make her feel better as well. Time spent discussing smoking cessation with patient: 3 to 10 minutes Condition Condition at Discharge: Stable Status at Discharge Cognitive/behavioral status at discharge: Mental Status Exam: Appearance: grossly normal Mental Status: mental status grossly normal Mood: Euthymic mood Affect: Normal affect Speech and Movement: speech normal, movement normal Attitude: cooperative Thought Process: normal Thought Content: Denied hallucinations, no homicidality and no suicidality Insight: Good Judgment: Good Functional status at discharge: independent ambulation Overall status at discharge: patient is back to baseline Time Spent with Patient Time spent providing/coordinating discharge services (# min): 30 Discharge Plan Discharge Plan Patient Disposition: Home Activity: No Activity Restriction Diet: Regular Additional Instructions: Important Contact Information You can call [facility] at [phone] any time day or night if you have emergent questions or question regarding discharge instructions. If at any time you are feeling an increase inyour psychiatric symptoms, call your physician or behavioral healthcare provider. If any time you have thoughts of harming yourself or others contact one of the following: Call (available 02/12) Crisis Text Line (available 02/12) text 4HOPE to [phone] [facility] Hope Line (available 8 a.m. Midnight) call [phone] ([phone]) Instructions: Know your Meds Prescriptions: New nicotine (polacrilex) 2 mg Gum 2 mg buccal Q2HR PRN (Reason: Nicotine Cravings) Qty: 40 0RF lurasidone 40 mg Tablet 40 mg PO DAILY.WITH.SUPPER 14 Days Qty: 14 1RF desvenlafaxine succinate [Pristiq] 100 mg tablet extended release 24 hr 100 mg PO DAILY Qty: 14 1RF Continued budesonide-formoterol [Symbicort] 160-4.5 mcg/actuation HFA aerosol inhaler 1 inh inhalation BID Qty: 10.2 0RF albuterol sulfate 90 mcg/actuation HFA aerosol inhaler 2 inh INHALATION Q4-6H PRN (Reason: shortness of breath or wheezing) Qty: 18 0RF Rx Instructions: administer with spacer trazodone 50 mg tablet 50 mg PO HS PRN (Reason: sleep) naltrexone 50 mg Tablet 50 mg PO DAILY Qty: 30 0RF melatonin 5 mg Tablet 5 mg PO QHS Qty: 30 0RF Discontinued lurasidone 20 mg Tablet 20 mg PO DAILY.WITH.SUPPER 30 Days Qty: 30 0RF desvenlafaxine succinate 50 mg Tablet Extended Release 24 Hr 50 mg PO DAILY Qty: 30 0RF Follow Up: [facility] [Outside] - 07/19/24 (key account manager will call you tomorrow, Wednesday 07/19. If you miss this call please call back as soon as possible.) Letty Torres NP-C [Primary Care Provider] - (Call for any medical needs.) Exam Physical Exam Vital Signs: Temp Pulse Resp BP Pulse Ox O2 Del Method 98.1 F 75 18 139/91 97 Room Air 07/18/24 07:24 07/18/24 07:24 07/18/24 07:24 07/18/24 07:24 07/18/24 07:24 07/18/24 07:24 Documented By: Brent Simmons MD 07/18/24 1127 Signed By: <Electronically signed by Brent Simmons MD> 07/18/24 1133 [facility] Work Phone: Discharge summary Author Brent Simmons [facility] Note Date/Time September 20, 2024 1:02p m [facility] [address] [place] [address] Discharge Summary Signed Patient: Roshan Willingham MR#: [id number] : 1990 Acct:[id number] Age/Sex: 33 / F Adm Date: 5 Loc: 1S Room: [address] [place] [address]: Brent Simmons MD Copies to: MD Letty Sanchez RESOURCE EFFICIENCY MANAGER-C~ Providers Date of Discharge: 09/20/24 Discharging Provider: Brent Simmons Primary Care Provider: Letty Torres Consults: 09/09/24 17:31 Consult to Case Management Routine Comment: CM Reason for Consult: Distresser-General Discharge Diagnosis (1) Bipolar depression: (2) Borderline personality disorder: Final Diagnosis Final Discharge Diagnosis: Bipolar disorder Borderline personality disorder Summary Hospital Course Hospital course: Ms. Willingham is a 33 year old female who presented due to concern for suicidal thoughts with plans of overdosing. Patient was at her outpatient day treatment and reported that she made some statements regarding hurting herself. It was documented that she had pills and a razor blade with her. Upon assessment, patient was moved to the special care due to reporting that shewould not be able to keep herself safe and also making an instrument from her calm but she could scratch herself. She stated that her depression has been getting worse recently and reported that she was off her medications for roughly1 week as she had some insurance issues and was not able to fill them. She stated by the time she got her pills she was feeling very down. She stated thatshe had some poor sleep and appetite. She reported feelings of hopelessness anddepression and suicidal thoughts. Psychiatric history: Endorses history of depression, anxiety, anorexia, cutting,suicidality Family psychiatric history: Mother: Anxiety, depression, COPD Psychiatric hospitalizations: History of multiple psychiatric hospitalizations Suicide attempts: History of suicide attempts Employment: Unemployed Living situation: Lives with parents Substance use: Uses marijuana Patient was treated with Pristiq, BuSpar, and Latuda. She felt that getting back on her Latuda was a big benefit for her as she was off of it due to some insurance issues. Initially she had some issues with suicidal thoughts but these gradually improved during her hospitalization. She did not act on those thoughts during her hospitalization and seemed to do okay controlling those symptoms. Her sleep and appetite improved during her hospitalization. She became less depressed and started to deny any suicidal thoughts. She felt that her symptoms were under control as time and medication adjustments seem to help. She started to attend groups and socialize with peers. She seemed to be in better spirits and felt comfortable with discharge. She stated that she would continue her medications and follow-up with outpatient services. She was futureoriented and talked about things that she was looking forward to upon discharge. Time spent discussing smoking cessation with patient: 3 to 10 minutes Condition Condition at Discharge: Stable Status at Discharge Cognitive/behavioral status at discharge: Mental Status Exam: Appearance: grossly normal Mental Status: mental status grossly normal Mood: Euthymic mood Affect: Normal affect Speech and Movement: speech normal, movement normal Attitude: cooperative Thought Process: normal Thought Content: Denied hallucinations, no homicidality and no suicidality Insight: Good Judgment: Good Functional status at discharge: independent ambulation Overall status at discharge: patient is back to baseline Time Spent with Patient Time spent providing/coordinating discharge services (# min): 30 Discharge Plan Discharge Plan Patient Disposition: Home Activity: No Activity Restriction Diet: Regular Additional Instructions: Important Contact Information You can call [facility] at [phone] any time day or night if you have emergent questions or question regarding discharge instructions. If at any time you are feeling an increase inyour psychiatric symptoms, call your physician or behavioral healthcare provider. If any time you have thoughts of harming yourself or others contact one of the following: Call (available 02/12) Crisis Text Line (available 02/12) text 4HOPE to [phone] [facility] Hope Line (available 8 a.m. Midnight) call [phone] ([phone]) Regular Diet No Activity Restrictions Instructions: Depression in adults - Discharge instructions, [facility] DC Instructions, Know your Meds Prescriptions: New nicotine (polacrilex) 2 mg Gum 2 mg buccal Q2H PRN (Reason: Nicotine Cravings) Qty: 20 0RF prazosin 1 mg Capsule 2 mg PO QHS 30 Days Qty: 60 0RF naltrexone 50 mg Tablet 50 mg PO BID 30 Days Qty: 60 0RF trazodone 100 mg Tablet 100 mg PO QHS PRN (Reason: Insomnia) 30 Days Qty: 30 0RF buspirone 10 mg Tablet 10 mg PO TID 30 Days Qty: 90 0RF melatonin 5 mg Tablet 10 mg PO QHS 30 Days Qty: 60 0RF lurasidone 80 mg Tablet 80 mg PO DAILY.WITH.SUPPER 30 Days Qty: 30 0RF Continued budesonide-formoterol [Symbicort] 160-4.5 mcg/actuation HFA aerosol inhaler 1 inh inhalation BID Qty: 10.2 0RF albuterol sulfate 90 mcg/actuation HFA aerosol inhaler 2 inh INHALATION Q4-6H PRN (Reason: shortness of breath or wheezing) Qty: 18 0RF Rx Instructions: administer with spacer desvenlafaxine succinate [Pristiq] 100 mg tablet extended release 24 hr 100 mg PO DAILY Qty: 30 0RF Discontinued trazodone 50 mg tablet 50 mg PO HS PRN (Reason: sleep) lurasidone 40 mg Tablet 40 mg PO DAILY.WITH.SUPPER 14 Days Qty: 14 1RF naltrexone 50 mg Tablet 50 mg PO DAILY Qty: 30 0RF melatonin 5 mg Tablet 5 mg PO QHS Qty: 30 0RF Follow Up: [facility] [Other] - 09/22/24 2:00 pm (Please bring ID and insurance card to this appointment. ) [facility] [Outside] - 09/24/24 12:45 pm (key account manager will call you tomorrow, if you miss this phone call please call back as soon as possible. Call if you need to reschedule your follow-up appointments: Friday09/24/24 at 12:45pm with the nurse then 1:00pm with [place] at [facility]. ) Letty Torres NP-C [Primary Care Provider] - (Call your family doctor with medical concerns.) Exam Physical Exam Vital Signs: Temp Pulse Resp BP Pulse Ox O2 Del Method 97.7 F 81 18 134/83 99 Room Air 09/20/24 07:30 09/20/24 07:30 09/20/24 07:30 09/20/24 07:30 09/20/24 07:30 09/20/24 07:30 Documented By: Brent Simmons MD 09/20/24 1200 Signed By: <Electronically signed by Brent Simmons MD> 09/20/24 1302 [facility] Work Phone: Evaluation note* Diagnosis Onset Date Resolution Status Abuse of laxatives acute Bipolar affect, depressed ac [place] Bipolar disease, chronic acu te Borderline personality disorder acute Eating disorder chronic Lightheadedness acute Suicidal ideation acute [facility] Work Phone: Evaluation note* General: NADAppearance: appears [...] insight into the affect cannabis hasJudgment: poor [facility] information available [facility] Work Phone: Evaluation note* General: Pt is [...] why she took the pillsJudgment: Not intact [facility] Diagnosis Onset Date Resolution Status Bipolar affect, depressed ac [place] Major depression acute Suicidal ideation acute [facility] Work Phone: Evaluation note* Diagnosis Onset Date Resolution Status Abdominal pain acute Bipolar affect, depressed ac [place] Borderline personality disorder acute Eating disorder chronic Major depression acute Marijuana abuse acute Nausea acute Suicidal ideation acute [facility] Work Phone: Evaluation note* Diagnosis Anorexia nervosa- Primary Dietary counseling Dietary surveillance and counseling [facility] Diagnosis Onset Date Resolution Status Borderline personality disorder acute Major depression acute [facility] Work Phone: Evaluation note* Diagnosis Multiple abrasions- Primary Abrasion or friction burn of other, multiple, and unspecified sites, without mention of infection Suicidal ideation [facility] Diagnosis Depression, unspecified depression type- Primary [facility] Diagnosis Suicidal ideation- Primary Thoughts of self harm Depression, unspecified depression type documented in this encounter [facility] note* Diagnosis Well woman exam with routine gynecological exam- Primary Routine gynecological examination Cervical smear, as part of routine gynecological examination Screening for malignant neoplasm of the cervix [facility] Diagnosis Lipoma of left lower extremity- Primary Moderate asthma without complication, unspecified whether persistent Hx of major depression Hx of anorexia nervosa Anxiety Anxiety state, unspecified Pott's disease Tuberculosis of vertebral column, confirmation unspecified Abnormal glucose Screening for lipid disorders High cholesterol Pure hypercholesterolemia [facility] Diagnosis Class 1 obesity due to excess calories without serious comorbidity with body mass index (BMI) of 30.0 to 30.9 in adult- Primary Lipoma of left lower extremity [facility] Author Brent Simmons [facility] December 07, 2021 1:11pm Note Date/Time December 07, 2021 1:11 pm [facility] [address] [place] [address] Psychiatry H&P Signed Patient: Roshan Willingham MR#: [id number] : 1990 Acct:[id number] Age/Sex: 31 / F Adm Date: 2 Loc: Room: [address] [place] [address] Type: ADM IN Attending Dr: Brent Simmons MD Copies to: Brent Simmons MD [facility]~ Date of Service: 12/07/2021 HPI History of Present Illness History of present illness: Ms. Willingham is a 31 year old female who [...] phone calls to the eating disorder called [facility] to try to get an appointment. She [...] Appearance Clear Urine pH 6.0 Ur Specific [facility] 1.030 Urine Protein Negative Urine Glucose (UA) [...] signed by Brent Simmons MD> 12/07/21 1311 [facility] Work Phone: Hospital Discharge instructions Additional Instructions Regular Diet No Activity [facility] Work Phone: Hospital Discharge instructions Additional Instructions Follow-up with your primary care doctor Return to ED F [facility] Work Phone: Hospital Discharge instructions Additional Instructions If your symptoms return/worsen or you develop any further concerns or symptoms please see your doctor or return to the emergency department immediately.[facility] Work Phone: Hospital Discharge instructions Additional Instructions Important Contact Information You can call [facility] at [phone] any time day or night if you have emergent questions or question regarding discharge instructions. If at any time you are feeling an increase in your psychiatric symptoms, call your physician or behavioral healthcare provider. If any time you have thoughts of harming yourself or others contact one of the following: Call 8 (available 02/12) Crisis Text Line (available 02/12) text 4HOPE to [phone] [facility] Hope Line (available 8 a.m. Midnight) call [phone] ([phone]) [facility] Work Phone: InstructionsNot on filedocumented in this encounter [facility]* Attachments The following attachments cannot be sent through Care Everywhere. * Asthma in adults (Stateless) documented in this encounterProBl[facility] SystemInstructionsNot on file documented in this encounterProAshtabula County Medical CenterProgress note Author Brent Simmons [facility] December 08, 2021 10:58am Note Date/Time December 08, 2021 10:5 7am [facility] [address] [place] [address] Psychiatry Progress Note Signed Patient: Roshan Willingham MR#: [id number] : 1990 Acct:[id number] Age/Sex: 31 / F Adm Date: 2 Loc: Room: [address] [place] [address] Type : ADM IN Attending Dr: Brent Simmons MD Copies to: ~ Date of Service: 12/08/2021 Subjective Subjective Narrative: Ms. Willingham reported that she is doing all right. [...] signed by Brent Simmons MD> 12/08/21 1058 [facility] Work Phone: Progress note Author Brent Simmons [facility] December 09, 2021 12:28pm Note Date/Time December 09, 2021 12:2 8pm [facility] [address] [place] [address] Psychiatry Progress Note Signed Patient: Roshan Willingham MR#: [id number] : 1990 Acct:[id number] Age/Sex: 31 / F Adm Date: 2 Loc: Room: [address] [place] [address] Type : ADM IN Attending Dr: Brent Simmons MD Copies to: ~ Date of Service: 12/09/2021 Subjective Subjective Narrative: Ms. Willingham reported that she was extremely nauseous and [...] alternatives explained Documented By: Brent Simmons MD 12/09/211226 Signed By: <Electronically signed by Brent Simmons MD> 12/09/21 1228 [facility] Work Phone: Progress note Author Phillip arriaza [facility] December 10, 2021 12:53pm Note Date/Time December 10, 2021 10: 08am [facility] [address] [place] [address] Psychiatry Progress Note Signed Patient: Roshan Willingham MR#: [id number] : 1990 Acct:[id number] Age/Sex: 31 / F Adm Date: 2 Loc: Room: 9U7342-7 Type : ADM IN Attending Dr: Brent [...] compliance Documented By: Zulema Dubose DO, RES 12/10/21 1 005 Signed By: <Electronically signed by DO ANTHONY Dubose> 12/10/21 1027 <Electronically signed by Phillip Davis MD> 12/10/21 1257 [facility] Work Phone: Progress note Author Phillip arriaza [facility] December 11, 2021 9:03am Note Date/Time December 11, 2021 7:2 2am [facility] [address] [place] [address] Psychiatry Progress Note Signed Patient: Roshan Willingham MR#: [id number] : 1990 Acct:[id number] Age/Sex: 31 / F Adm Date: 2 Loc: Room: [address] [place] [address] Type : ADM IN Attending Dr: Brent [...] Cells 5-9 H Urine Bacteria 1+ H Franquez 0.36 L Abnormal Involuntary Movement Dental Status [...] 0 719 Signed By: <Electronically signed by DO ANTHONY Dubose> 12/11/21 0750 <Electronically signed by Pihllip Davis MD> 12/11/21 0903 [facility] Work Phone: Progress note Author Phillip arriaza [facility] December 12, 2021 12:36pm Note Date/Time December 12, 2021 12: 36pm [facility] [address] [place] [address] Psychiatry Progress Note Signed Patient: Roshan Willingham MR#: [id number] : 1990 Acct:[id number] Age/Sex: 31 / F Adm Date: 2 Loc: 1S Room: [address] [place] [address] Type : ADM IN Attending Dr: Brent [...] argue a lot, 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 She thinks people will maid cleaning cooking her. She states lunch is around 1130 [...] p.o. nightly Encourage eating with a russ Franquez at therapeutic level as of 12/11 Continue to monitor mental status Continue to encourage group participation and medication compliance Documented By: Zulema Dubose DO, RES 12/13/21 0 711 Signed By: <Electronically signed by DO ANTHONY Dubose> 12/13/21 0809 <Electronically signed by Phillip Davis MD> 12/13/21 0852 [facility] Work Phone: Progress note Author Phillip arriaza [facility] December 14, 2021 10:00am Note Date/Time December 14, 2021 7:1 9am [facility] [address] [place] [address] Psychiatry Progress Note Signed Patient: Roshan Willingham MR#: [id number] : 1990 Acct:[id number] Age/Sex: 31 / F Adm Date: 2 Loc: Room: [address] [place] [address] Type : ADM IN Attending Dr: Brent [...] p.o. nightly Encourage eating with a russ Franquez at therapeutic level as of 12/11 Continue to monitor mental status Continue to encourage group participation and medication compliance Documented By: Zulema Dubose DO, RES 12/14/21 0 718 Signed By: <Electronically signed by DO ANTHONY Dubose> 12/14/21 0737 <Electronically signed by Phillip Davis MD> 12/14/21 1000 [facility] Work Phone: Progress note Author Phillip arriaza [facility] December 15, 2021 9:19am Note Date/Time December 15, 2021 6:5 4am [facility] [address] [place] [address] Psychiatry Progress Note Signed Patient: Roshan Willingham MR#: [id number] : 1990 Acct:[id number] Age/Sex: 31 / F Adm Date: 2 Loc: Room: [address] [place] [address] Type : ADM IN Attending Dr: Brent [...] Eos # (Auto) 0.8 H Urine Color [place] A Urine Appearance Turbid A Ur Specific [facility] 1.035 H Urine Protein 100 H Urine [...] p.o. nightly Encourage eating with a russ Franquez at therapeutic level as of 12/11 Continue to monitor mental status Continue to encourage group participation and medication compliance Documented By: Zulema Dubose DO, RES 12/15/21 0 653 Signed By: <Electronically signed by DO ANTHONY Dubose> 12/15/21 0755 <Electronically signed by Phillip Davis MD> 12/15/21 0919 [facility] Work Phone: Progress note Author Phillip arriaza [facility] December 16, 2021 8:50am Note Date/Time December 16, 2021 8:4 8am [facility] [address] [place], [place] [id number] Psychiatry Progress Note Signed Patient: Roshan Willingham MR#: [id number] : 1990 Acct:[id number] Age/Sex: 31 / F Adm Date: 2 Loc: 1S Room: [address] [place] [address] Type : ADM IN Attending Dr: Brent [...] her sister is her medical power of estate planning attorney and she is worried that she will [...] p.o. nightly Encourage eating with a russ Franquez at therapeutic level as of 12/11 Continue to monitor mental status Continue to encourage group participation and medication compliance Documented By: Phillip Davis MD 2 0847 Signed By: <Electronically signed by Phillip Davis MD> 12/16/21 0850 [facility] Work Phone: Progress note Author Brent Simmons [facility] December 17, 2021 12:13pm Note Date/Time December 17, 2021 8:4 8am [facility] [address] [place] [address] Psychiatry Progress Note Signed Patient: Roshan Willingham MR#: [id number] : 1990 Acct:[id number] Age/Sex: 31 / F Adm Date: 2 Loc: Room: [address] [place] [address] Type : ADM IN Attending Dr: Brent [...] p.o. nightly Encourage eating with a russ Franquez at therapeutic level as of 12/11 Awaiting repeat urine culture as other specimen was contaminated, continue bactrim for now Continue to monitor mental status Continue to encourage group participation and medication compliance Documented By: Zulema Dubose DO, RES 12/17/21 0 847 Signed By: <Electronically signed by DO ANTHONY Dubose> 12/17/21 0931 <Electronically signed by Brent Simmons MD> 12/17/21 1213 [facility] Work Phone: Summary Purpose Family History No Family History Records Found Relationship Condition Age at Onset Recorded Date/T sharonda Not Specified Anxiety Unknown Depression Unknown Chronic obstructive pulmonary disease Unk nown Not Specified Myocardial infarction Unknown Relationship Condition Age at Onset Recorded Date/T sharonda mother Anxiety Unknown Depression Unknown Chronic obstructive pulmonary disease Unk nown Myocardial infarction Unknown Advance Directives No Advanced Directives Records Found Advance Directive Response Recorded Date/ Time Advance Directives No May 14, 2017 4:00pm Advance Directive Response Recorded Date/ Time Advance Directives No May 14, 2017 3:00pm Date Activated Date Inactivated Comments 06/01/2017 3:20 PM 06/02/2017 3:14 PM Date Activated Date Inactivated Comments 06/01/2017 3:20 PM 06/02/2017 3:14 PM Chief Complaint and Reason for Visit Chief [...] disorder Lightheadedness Suicidal ideation Chief Complaint Palpitations [facility] Chief Complaint trouble breathing Chief Complaint trouble breathing mental eval Reason for Visit Bipolar affect, depr essed Major depression Suicidal ideation Chief Complaint mental eval Reason for Visit Abdominal pain Bipolar affect, depressed Borderline personality disorder Eating disorder Major depression Marijuana abuse Nausea Suicidal ideation Chief Complaint diarrhea suicidal Chief Complaint diarrhea suicidal [facility] Chief Complaint diarrhea suicidal p f50.02 Chief Complaint diarrhea suicidal [facility] f50.02 chest pain blurry vision dizzy vomiting f50.00 Chief Complaint suicidal [facility] f50.02 chest pain blurry vision dizzy vomiting f50.00 Anorexia nervosa Chief Complaint voluntary-bipolar d/ o voluntary-bipolar d/o Reason for Visit Borderline personali ty disorder Major depression Chief Complaint Admit Date voluntary-bipolar d/o January 11 8:52pm voluntary-bipolar d/o January 12 2:55pm February 18, 2024 9: 59am ear pain, chest congestion March 2:16pm Reason for Visit Admit Date Borderline personality disorder Septembe r 2023 8:52pm Major depression January 12, 2024 8:52pm Acute lower respiratory infection Novemb er 2023 2:16pm Chief Complaint Admit Date ear pain, chest congestion March 2:16pm May 16, 2024 10 :37am [facility] May 16, 2024 3: 14pm [facility] May 17, 2024 8: 51am [facility] May 24, 2024 1 0:47am Reason for Visit Admit Date Acute lower respiratory infection Novemb er 2023 2:16pm Borderline personality disorder May 16, 2024 3:14pm Generalized anxiety disorder May 3:14pm Marijuana abuse May 16, 2024 3: 14pm Chief Complaint Admit Date ear pain, chest congestion March 2:16pm [facility] May 16, 2024 3: 14pm [facility] May 17, 2024 8: 51am [facility] May 24, 2024 1 0:47am bh June 15, 2024 1 2:13pm mdd June 15, 2024 6 :04pm mdd June 16, 2024 1 :26pm Reason for Visit Admit Date Acute lower respiratory infection Novemb er 2023 2:16pm Borderline personality disorder May 16, 2024 3:14pm Generalized anxiety disorder May 3:14pm Marijuana abuse May 16, 2024 3: 14pm Borderline personality disorder June 15, 2024 6:04pm Generalized anxiety disorder June 6:04pm Major depression June 15, 2024 6 :04pm Chief Complaint Admit Date [facility] May 16, 2024 3: 14pm [facility] May 17, 2024 8: 51am [facility] May 24, 2024 1 0:47am mdd June 15, 2024 6 :04pm mdd June 16, 2024 1 :26pm bh July 05, 2024 12:41pm Major Depression Disorder July 14 2:05am Major Depression Disorder July 14 10:06am Reason for Visit Admit Date Borderline personality disorder May 16, 2024 3:14pm Generalized anxiety disorder May 3:14pm Marijuana abuse May 16, 2024 3: 14pm Borderline personality disorder June 15, 2024 6:04pm Generalized anxiety disorder June 6:04pm Major depression June 15, 2024 6 :04pm Bipolar disease, chronic July 14, 2024 2:05am Generalized anxiety disorder July 14, 2024 2:05am Chief Complaint Admit Date Major Depression Disorder July 14 2:05am Major Depression Disorder July 14 10:06am Major Depression September 09, 2024 4:31pm bh September 10, 2024 10:55a m Major Depression September 10, 2024 2:42pm Major Depression September 17, 2024 6:52am Reason for Visit Admit Date Bipolar disease, chronic July 14, 2024 2:05am Generalized anxiety disorder July 14, 2024 2:05am Bipolar affect, depressed September 09, 2024 4:31pm Bipolar depression September 09, 2024 4:31pm Borderline personality disorder September 09, 2024 4:31pm Chief Complaint Admit Date December 28, 2024 11 :00am Major Depression December 31, 2024 9: 37pm Reason for Visit Admit Date Bipolar affect, depressed December 31 9:37pm Borderline personality disorder December 112024 9:37pm Generalized anxiety disorder December 9:37pm Additional Source Comments INFORMATION SOURCE (unrecogn ized section and content) DATE CREATED AUTHOR 01/04/2022 [facility] DATE CREATED AUTHOR AUTHOR'S ORGANIZ ATION 03/04/2022 [facility] DATE CREATED AUTHOR AUTHOR'S ORGANIZ ATION 06/21/2022 [facility] DATE CREATED AUTHOR AUTHOR'S ORGANIZ ATION 07/29/2022 [facility] DATE CREATED AUTHOR AUTHOR'S ORGANIZ ATION 07/30/2023 [facility] DATE CREATED AUTHOR AUTHOR'S ORGANIZ ATION 09/14/2024 [facility] DATE CREATED AUTHOR AUTHOR'S ORGANIZ ATION 12/24/2024 [facility] DATE CREATED AUTHOR AUTHOR'S ORGANIZ ATION 01/06/2025 [facility] DATE CREATED AUTHOR AUTHOR'S ORGANIZ ATION 01/17/2025 [facility] Care Teams (unrecognized sec tion and content) Team Status: Active Member Role Status Dates INEZ Campa Primary Care Provider Acti ve Team Status: Active Member Role Status Dates INEZ Campa Primary Care Provider Acti ve Start: December 28, 2024 Phillip Davis MD Attending Provider Active Start: December 28, 2024 Team Status: Active Member Role Status Dates INEZ Campa Primary Care Provider Acti ve Start: December 31, 2024 Brent Simmons MD Admit Provider Active Start: December 31, 2024 Brent Simmons MD Attending Provider Active St art: December 31, 2024 Brent Simmons MD Other Provider Active Start: December 31, 2024 Team Status: Active Member Role Status Dates Services Family [facility] Primary Care Provider Active Team Status: Inactive Member Role Status Dates Services [facility] Primary Care Provider Active Start: April 01, 2024 End: April 01, 2024 Nely Flores APRN Attending Provider Active Start: April 01, 2024 End: April 01, 2024 Team Status: Active Member Role Status Dates Letty Torres NP-Lissy Primary Care Provider Acti ve Start: May 16, 2024 Phillip Davis MD Attending Provider Active Start: May 16, 2024 Team Status: Inactive Member Role Status Dates Services Family [facility] Primary Care Provider Active Start: May 16, 2024 End: May 24, 2024 Phillip Davis MD Admit Provide r, Attending Provider Active Start: May 16, 2024 End: May 24, 2024 Team Status: Active Member Role Status Dates Services Family [facility] Primary Care Provider Active Start: May 17, 2024 Phlilip Davis MD Admit Provide r, Attending Provider, Other Provider Active Start: May 17, 2024 Team Status: Active Member Role Status Dates Services Family [facility] Primary Care Provider Active Start: May 24, 2024 Phillip Davis MD Admit Provide r, Other Provider Active Start: May 24, 2024 Brent Simmons MD Attending Provider Active St art: May 24, 2024 Team Status: Active Member Role Status Dates Services Family [facility] Primary Care Provider Active Start: January 12, 2024 Adalberto Seaman DO Attending Provider Active Sta rt: January 12, 2024 Team Status: Inactive Member Role Status Dates Services Family [facility] Primary Care Provider Active Start: January 12, 2024 End: January 19, 2024 Brent Simmons MD Admit Provider Active Start: January 12, 2024 End: January 19, 2024 Phillip Davis MD Attending Provider Active Start: January 12, 2024 End: January 19, 2024 Team Status: Active Member Role Status Dates Services Family [facility] Primary Care Provider Active Start: January 13, 2024 Brent Simmons MD Admit Provider, Atte nding Provider, Other Provider Active Start: January 13, 2024 Team Status: Active Member Role Status Dates Letty Torres , RESOURCE EFFICIENCY MANAGER-C Primary Care Provider Acti ve Start: February 18, 2024 Phillip Davis MD Attending Provider Active Start: February 18, 2024 Team Status: Inactive Member Role Status Dates Services [facility] Primary Care Provider Active Katerina Cosme , [facility] Emergency Provider Active Team Status: Active Member Role Status Dates Bogdan Barnes MD Emergency Provider Active Letty Torres , RESOURCE EFFICIENCY MANAGER-C Primary Care Provider Acti ve Brent Simmons MD Admit Provider, Attending Provider Active Team Status: Inactive Member Role Status Dates Madhu Morales PA-C Emergency Provider Active Services [facility] Primary Care Provider Active Brent Simmons MD Admit Provider, Attending Provider Active Brianna Sena , CONCHA Other Provider Active Radha Delgadillo , CONCHA Other Provider Active Nithya Rodriguez , CONCHA Other Provider Active Timoteo Sen , CONCHA Other Provider Active Flores Ramos , CONCHA Other Provider Active Ada Alejandro , CONCHA Other Provider Active Donald Jc MD Other Provider Active Antonio Santiago MD Other Provider Active Beatriz Craig APRN Other Provider Active Feliciano Mejia , DO Other Provider Active Joshua Galindo MD Other Provider Active Jovanny Hurley , DO Other Provider Active Santiago Jameson MD Other Provider Active Maria Elena Francis MD Other Provider Active Francheska Kelly , [facility]- Other Provider Active Durga Giron MD Other Provider Active Augie Marks MD Other Provider Active Lucie Paredes MD Other Provider Active Saniya Dobbs MD Other Provider Active Elian Mendiola MD Other Provider Active Kwan Avilez MD Other Provider Active Wenceslao Parada MD Other Provider Active Jenifer Jones , RESOURCE EFFICIENCY MANAGER-C Other Provider Active Romeo Steinberg MD Other [...] Services Family Health Primary Care Provider Active Kary Ding DO Attending Provider Active Sivakumar Sheridan , DO RES Referring Provider Active Team Status: Inactive Member Role Status Dates Services Family [facility] Primary Care Provider Active Kary Lux DO Emergency Provider Active Team Status: Inactive Member Role Status Dates Services [facility] Primary Care Provider Active Yonathan Davis MD Attending Provider Active Team Status: Inactive Member Role Status Dates Services [facility] Primary Care Provider Active Linda Grewal APRN RESOURCE EFFICIENCY MANAGER-C Attending Provider Active Anny Marin , DO RES Referring Provider Active Team Status: Inactive Member Role Status Dates Services [facility] Primary Care Provider Active Bogdan Barnes MD Emergency Provider Active Appliance Adjuster Relationship Specialty Start Date End Date Hayder Mei PCP - General Family Medicine 04/28/17 Team Status: Inactive Member Role Status Dates Bogdan Barnes MD Emergency Provider Active Letty Torres NP-C Primary Care Provider Acti aram Simmons MD Admit Provider, Attending Provider Active Trace Burton MD Other Provider Active Rodger Anaya DO Other Provider Active López Aranda MD Other Provider Active Brenda Cervantes MD Other Provider Active Diane Armendariz MD Other Provider Active Cecilia Galo MD Other Provider Active Deric Roblero APRN Other Provider Active Harvey Varghese MD Other Provider Active Andrea Lomas MD Other Provider Active Appliance Adjuster Relationship Specialty Start Date End Date Hayder Mei PCP - General Family Medicine 04/28/17 Sivakumar Sheridan DO [address] [place] [id number] Referring Family Medicine 10/21/22 Team Status: Inactive Member Role Status Dates Letty Torres NP-C Primary Care Provider Acti aram Langston Jr, MD Emergency Provider Active Team Status: Inactive Member Role Status Dates Letty Torres NP-C Primary Care Provider Acti ve Estuardo Hardin DO Emergency Provider Active Team Status: Active Member Role Status Dates PHYSICIAN NO FAMILY Primary Care Provider Active Team Status: Inactive Member Role Status Dates Ismael Calderon , Emergency Provider Active PHYSICIAN NO FAMILY Primary Care Provider Active Team Status: Inactive Member Role Status Dates Ismael Calderon , Emergency Provider Active Letty Torres RESOURCE EFFICIENCY MANAGER-C Primary Care Provider Acti ve Team Status: Inactive Member Role Status Dates Services [facility] Primary Care Provider Active Anny Marin , DO RES Attending Provider Active Olive Dawkins , DO Referring Provider Active Team Status: Inactive Member Role Status Dates Services [facility] Primary Care Provider Active Anny Marin , DO RES Attending Provider Active Kary Ding , DO Referring Provider Active Team Status: Inactive Member Role Status Dates Services [facility] Primary Care Provider Active Estuardo Hardin , DO Emergency Provider Active Team Status: Inactive Member Role Status Dates Letty Torres RESOURCE EFFICIENCY MANAGER-C Primary Care Provider Acti ve Start: March 11, 2023 End: March 11, 2023 Estuardo Hardin DO Emergency Provider Active Sta rt: March 11, 2023 End: March 11, 2023 Team Status: Active Member Role Status Dates Letty Torres RESOURCE EFFICIENCY MANAGER-C Primary Care Provider Acti ve Start: March 11, 2023 Phillip Davis MD Attending Provider Active Start: March 11, 2023 Team Status: Inactive Member Role Status Dates Ismael Calderon DO Emergency Provider Active Start: March 13, 2023 End: March 13, 2023 Letty Torres RESOURCE EFFICIENCY MANAGER-C Primary Care Provider Acti ve Start: March 13, 2023 End: March 13, 2023 Team Status: Inactive Member Role Status Dates Services Family [facility] Primary Care Provider Active Start: March 20, 2023 End: March 20, 2023 Anny Marin , RES Attending Provider Active Start: March 20, 2023 End: March 20, 2023 Olive Dawkins - S , DO Referring Provider Acti ve Start: March 20, 2023 End: March 20, 2023 Team Status: Inactive Member Role Status Dates Services Family [facility] Primary Care Provider Active Start: March 21, 2023 End: March 21, 2023 Estuardo Hardin DO Emergency Provider Active Sta rt: March 21, 2023 End: March 21, 2023 Team Status: Inactive Member Role Status Dates Services Family [facility] Primary Care Provider Active Start: March 25, 2023 End: March 25, 2023 Anny Marin DO RES Attending Provider Active Start: March 25, 2023 End: March 25, 2023 Kary LEA DO Referring Provider Active S tart: March 25, 2023 End: March 25, 2023 Team Status: Inactive Member Role Status Dates Services Family Health Primary Care Provider Active Start: June 02, 2023 End: June 02, 2023 Tamra Rosen MD Attending Provider Active St art: June 02, 2023 End: June 02, 2023 Anny Marin DO RES Other Provider Active Sta rt: June 02, 2023 End: June 02, 2023 Appliance Adjuster Relationship Specialty Start Date End Date Hayder Mei DO PCP - General Family Medicine 04/28/17 Sivakumar Sheridan DO [address] [place] [id number] Referring Family Medicine 10/21/22 Team Status: Inactive Member Role Status Dates Services [facility] Primary Care Provider Active Start: January 12, 2024 End: January 19, 2024 Brent Simmons MD Admit Provider, Atte nding Provider Active Start: January 12, 2024 End: January 19, 2024 Appliance Adjuster Relationship Specialty Start Date End Date Letty Torres APRN - CANE SPLICER [address] [place] [id number] PCP - General Certified Nurse Practitioner 09/17/22 Team Status: Inactive Member Role Status Dates Services Family Health Primary Care Provider Active Start: May 16, 2024 End: May 24, 2024 Phillip Davis MD Admit Provider Active Start: May 16, 2024 End: May 24, 2024 Brent Simmons MD Attending Provider Active St art: May 16, 2024 End: May 24, 2024 Team Status: Active Member Role Status Dates Services Family Health Primary Care Provider Active Start: May 17, 2024 Adalberto Seaman DO Attending Provider Active Sta rt: May 17, 2024 Team Status: Active Member Role Status Dates Letty Torres RESOURCE EFFICIENCY MANAGER-C Primary Care Provider Acti ve Start: June 15, 2024 Phillip Davis MD Attending Provider Active Start: June 15, 2024 Team Status: Inactive Member Role Status Dates Letty Torres RESOURCE EFFICIENCY MANAGER-C Primary Care Provider Active Start: June End: June 18, 2024 Brent Simmons MD Admit Provider, Atte nding Provider Active Start: June 15, 2024 End: June 18, 2024 Team Status: Active Member Role Status Dates Letty Torres RESOURCE EFFICIENCY MANAGER-C Primary Care Provider Active Start: June Brent Simmons MD Admit Provider, Atte nding Provider, Other Provider Active Start: June 16, 2024 Appliance Adjuster Relationship Specialty Start Date End Date Letty Torres, 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CANE SPLICER [address] [place] [address] PCP - General Certified Nurse Practitioner 09/17/22 Team Status: Active Member Role Status Dates Letty Torres NP-C Primary Care Provider Acti ve Start: July 05, 2024 Phillip Davis MD Attending Provider Active Start: July 05, 2024 Team Status: Inactive Member Role Status Dates Letty Torres NP-C Primary Care Provider Acti ve Start: July 14, 2024 End: July 18, 2024 Brent Simmons MD Admit Provider, Atte nding Provider Active Start: July 14, 2024 End: July 18, 2024 Team Status: Active Member Role Status Dates Letty Torres RESOURCE EFFICIENCY MANAGER-C Primary Care Provider Acti ve Start: July 14, 2024 Brent Simmons MD Admit Provider, Atte nding Provider, Other Provider Active Start: July 14, 2024 Appliance Adjuster Relationship Specialty Start Date End Date Letty Torres, 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CANE SPLICER [address] [place] [address] PCP - General Certified Nurse Practitioner 09/17/22 Appliance Adjuster Relationship Specialty Start Date End Date Letty Torres APRN - [facility] [address] [place] [address] PCP - General Certified Nurse Practitioner 09/17/22 Appliance Adjuster Relationship Specialty Start Date End Date No Pcp, [place] [address] PCP - General Family Medicine 03/17/23 Team Status: Inactive Member Role Status Dates Letty Torres NP-C Primary Care Provider Acti ve Start: September 09, 2024 End: September 20, 2024 Brent Simmons MD Admit Provider, Atte nding Provider Active Start: September 09, 2024 End: September 20, 2024 Team Status: Active Member Role Status Dates Letty Torres NP-C Primary Care Provider Acti ve Start: September 10, 2024 Phillip Davis MD Attending Provider Active Start: September 10, 2024 Team Status: Active Member Role Status Dates Letty Torres NP-C Primary Care Provider Acti ve Start: September 10, 2024 Brent Simmons MD Admit Provider, Atte nding Provider, Other Provider Active Start: September 10, 2024 Team Status: Active Member Role Status Dates Letty Torres NP-C Primary Care Provider Acti ve Start: September 17, 2024 Brent Simmons MD Admit Provider, Othe r Provider Active Start: September 17, 2024 Phillip Davis MD Attending Provider Active Start: September 17, 2024 Appliance Adjuster Relationship Specialty Start Date End Date Faith Ferguson APRN-[facility] [address], [place] [address] PCP - General Family Medicine 12/13/24 Appliance Adjuster Relationship Specialty Start Date End Date Faith Ferguson APRN-CANE SPLICER [address], [place] [address] PCP - General Family Medicine 12/13/24 Appliance Adjuster Relationship Specialty Start Date End Date Faith Ferguson, 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-CANE SPLICER [address], [place] [address] PCP - General Family Medicine 12/13/24 <item><item> Privacy Markings (unrecogniz ed section and [...] sectionGoals may be documented in an alternate sectionNot on filedocumented as of this encounterNot on filedocumented as of this encounterNot on filedocumented as of this encounterGoals may be documented in an alternate sectionNot on filedocumented as of this encounter Source Comments (unrecognize d section and content) In the event this informatio n is protected by the Federal Confidentiality of Alcohol and Drug Abuse Patient Records regulations: The Federal rules restrict any use of the information to criminally investigate or prosecute any alcohol or drug abuse patient.[facility] the event this information is protected by the Federal Confidentiality of Alcohol and Drug Abuse Patient Records regulations: The Federal rules restrict any use of the information to criminally investigate or prosecute any alcohol or drug abuse patient.[facility] the event this information is protected by the Federal Confidentiality of Alcohol and Drug Abuse Patient Records regulations: The Federal rules restrict any use of the information to criminally investigate or prosecute any alcohol or drug abuse patient.[facility] Reason for Visit (unrecogniz ed section and content) Reason Comments Appointment Reason Comments Patient Education Assessment Reason Comments Suicidal Suicidal ideation wi th increased thoughts worsening today. Patient sent from [facility] [employer] after patient was self harming with pop tab. Abrasions present to left forearm and hand. Reason Comments Mental Health Problem Patient states she has been feeling suicidal/depressed for the past few days. Patient states that she has been struggling with family issues reguarding her mother the past year.Patient was contemplating overdosing on her medications and states that she has been cutting her hands. Most recent episode of self harm was today, patient has multiple cut ferguson from a metal bartlett chain ring to both hands bilaterally Reason Comments Seizures Pt was at her [facility] appt when noted to have an absent seizure, then again a 1 minute absent seizure in the squad. Pt reports hx of absent seizures triggered by stress, which she reports has been having a lot of lately. Alert and oriented at this time, does not appear postictal, no loss of bladder. Reason Comments Mental Health Problem Pt sent to ED r/t SI, worsening overnight. Pt reports feeling safe in home environment. Pt reports recent hold on psych medications r/t Insurance; last dose on Friday 9 days prior. Denies HI. Pt reports I was googling what meds to overdose on and what they do. I overdosed a few years ago. I feel like everything is getting worse over with past decade. My family distances from me and I dont have anyone to hang out with or to talk to. There are 160 thousand people on [employer] under my name accusing me of Reason Comments Annual Exam Reason Comments Establish Care Reason Comments Suspicious Skin Lesion Lipoma of left lo wer extremity, referred by Faith Ferguson CNP Specialty Diagnoses / Procedures Referred By Beata jones Referred To Contact General Surgery Diagnoses Lipoma of left lower extremity Faith Ferguson, 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-CANE SPLICER [address] [facility] [address], [place] [address] Phone: tel: fax: Dell Morrison, [address] [place] [id number] Phone: tel: fax: Referral ID Status Reason Start Date Expiration Date V isits Requested Visits Authorized [id number] Closed Specialty Services Required 12/13/2024 12/13/2025 1 1 Scheduled Active and Recently Administ ered Medications (unrecognized section and content) Medication Order 06/13/2024 06/14/2024 06/15/2024 haloperidol lactate (HALDOL) injection 2.5 mg 2.5 mg, IntraMUSCular, ONCE, 1 dose, On Fri06/15/24 at 1700, IM route of administration preferred. Because of the risk of TdP and QT prolongation, ECG monitoring is recommended if haloperidol is given IV. 1700 (Due) haloperidol lactate (HALDOL) injection 5 mg (COMPLETED) 5 mg, IntraMUSCular, ONCE, 1 dose, On 06/15/24 at 1515, IM route of administration preferred. Because of the risk of TdP and QT prolongation, ECG monitoring is recommended if haloperidol is given IV. 1530 (Given - Provid er: Monica May RN - Comment: Pablo Zhang P.A.-C 2.5mg given IM.) LORazepam (ATIVAN) tablet 1 mg (COMPLETED) 1 mg, Oral, ONCE, 1 dose, On Fri06/15/24 at 1415 1405 (Given - Provid er: Monica May RN) Scheduled Medication Order 07/12/2024 07/13/2024 07/14/2024 LORazepam (ATIVAN) injection 1 mg (COMPLETED) 1 mg, IntraMUSCular, ONCE, 1 dose, On Fri07/13/24 at 1445, Immediately prior to intravenous use, lorazepam Injection must be diluted with at least an equal volume of compatible solution (NS or D5W). 1457 (Given - Provider: Horacio Jones RN) LORazepam (ATIVAN) injection 1 mg (COMPLETED) 1 mg, IntraMUSCular, ONCE, 1 dose, On Fri07/13/24 at 1845, Immediately prior to intravenous use, lorazepam Injection must be diluted with at least an equal volume of compatible solution (NS or D5W). 1838 (Given - Provider: Horacio Jones RN) LORazepam (ATIVAN) tablet 1 mg (COMPLETED) 1 mg, Oral, ONCE, 1 dose, On Fri07/13/24 at 2145 2136 (Given - Provider: Horacio Jones RN) Scheduled Medication Order 09/07/2024 09/08/2024 09/09/2024 LORazepam (ATIVAN) tablet 1 mg (COMPLETED) 1 mg, Oral, ONCE, 1 dose, On Evelyn 09/09/24 at 1430 1419 (Given - Provid er: Marcy Zamora RN) lurasidone (LATUDA) tablet 20 mg (COMPLETED) 20 mg, Oral, ONCE, 1 dose, On Fri09/09/24 at 1245, Administer with food. 1258 (Given - Provid er: Marcy Zamora RN) FOR RECORDS PERTAINING TO PATIENTS WHO ARE [...] BE BASED ON THE PRIMARY CLINICAL RECORDS. [employer] [facility]. provides no warranty or guarantee of the accuracy or completeness of information in this document.
--- NOTE | 2025-01-20 13:39 | ED.PSYCH1 ---
HPI - Psych General Chief Complaint: Psychiatric Symptoms Stated Complaint: MENTAL HEALTH ISSUE Time Seen by Provider: 01/20/25 13:08 Source: Reports patient Mode of arrival: walk-in History of Present Illness HPI Narrative: 34-year-old female presents to the ED with her peer support person after expressing suicidal ideation with a plan to overdose. Patient reports she ingested approximately 20 mg of olanzapine (Zyprexa) and an unknown amount of prazosin earlier this morning, estimating about 14 remaining pills based on her prescription refill 2 weeks ago. She denies lightheadedness, dizziness, headache, fever, chills, chest pain, shortness of breath, abdominal pain, nausea, vomiting, or diarrhea. No recent head trauma. Denies numbness, tingling, or weakness. She has a history of depression, anxiety, and bipolar I disorder, with prior suicide attempts by overdose and multiple psychiatric hospitalizations (most recent date unknown). She follows with psychiatry but has been off Pristiq for the past 2 weeks due to insurance coverage issues. She reports significant psychosocial stressors including family conflict and online bullying. She denies alcohol, drug use. No smoking. Related Data Home Medications ?Medication ?Instructions ?Recorded ?Confirmed albuterol sulfate 90 mcg/actuation 2 puff inhalation Q4H PRN 05/14/24 01/20/25 aerosol inhaler (Ventolin HFA) shortness of breath or wheezing hydroxyzine HCl 25 mg tablet 25 mg PO Q6H PRN anxiety 05/14/24 01/20/25 melatonin 5 mg tablet 10 mg PO BEDTIME 05/14/24 01/20/25 olanzapine 5 mg tablet 5 mg PO BEDTIME 05/14/24 01/20/25 lamotrigine 25 mg tablet 25 mg PO QPM 01/20/25 01/20/25 prazosin 1 mg capsule 2 mg PO QPM 01/20/25 01/20/25 trazodone 150 mg tablet 150 mg PO QPM PRN sleep 01/20/25 01/20/25 Previous Rx's ?Medication ?Instructions ?Recorded albuterol sulfate 90 mcg/actuation 2 inh inhalation Q6H PRN shortness 05/16/24 aerosol inhaler of breath or wheezing #6.7 grams Allergies Allergy/AdvReac Type Severity Reaction Status Date / Time Penicillins Allergy Verified 05/23/23 06:45 prochlorperazine (From Allergy Verified 05/23/23 06:45 Compazine) [facility] Medical History (Updated 01/20/25 @ 19:11 by CRISTOFER MUNGUIA) Tobacco abuse ?Z72.0 - Tobacco use (ICD-10) Bipolar 1 disorder, depressed ?F31.9 - Bipolar disorder, unspecified (ICD-10) History of seizures ?Z87.898 - Personal history of other specified conditions (ICD-10) POTS (postural orthostatic tachycardia syndrome) ?G90.A - Postural orthostatic tachycardia syndrome [POTS] (ICD-10) PTSD (post-traumatic stress disorder) ?F43.10 - Post-traumatic stress disorder, unspecified (ICD-10) Depression ?F32.A - Depression, unspecified (ICD-10) 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) Asthma ?J45.909 - Unspecified asthma, uncomplicated (ICD-10) Family History (Updated 05/14/24 @ 14:54 by Paty Singer RN) Grandmother Family history of cancer Family history of hypertension Mother Family history of cancer Family history of COPD (chronic obstructive pulmonary disease) Family history of myocardial infarction Grandfather Family history of diabetes mellitus Social History (Updated 05/14/24 @ 14:53 by Paty Singer RN) Within the past year, how often did you have a drink containing alcohol: never Score interpretation: A score less than 3 is consistent with normal alcohol consumption. Smoking status: Current every day smoker Do you use any of these nicotine containing products: vaping products Non-prescribed substance use: cannabis (any form) Highest level of school completed/degree received: high school graduate Little interest or pleasure in doing things: not at all Feeling down, depressed, or hopeless: not at all Exam Narrative Exam Narrative: General: Alert, oriented, cooperative, tearful but calm, no acute distress. HEENT: Normocephalic, atraumatic. Pupils equal, round, reactive. Oropharynx moist. Cardiovascular: tachycardiac with normal rhythm, no murmurs, normal peripheral pulses. Respiratory: Clear breath sounds bilaterally, normal respiratory effort. Abdomen: Soft, non-tender, nondistended, bowel sounds normal. Neuro: Alert and oriented x3. Cranial nerves II?XII intact. Strength and sensation intact in all extremities. Normal speech and gait. Skin: Warm, dry, no rashes, no evidence of self-inflicted trauma. Psych: Flat affect, expresses ongoing suicidal ideation with plan. No homicidal ideation. No hallucinations or delusions reported. Insight and judgment limited. Constitutional Vital Signs, click to edit/add: Last Vital Signs Temp 99.3 F 01/20/25 12:56 Pulse 87 01/20/25 19:10 Resp 26 H 01/20/25 19:10 BP 131/77 01/20/25 19:01 Pulse Ox 91 L 01/20/25 19:10 O2 Del Method Room Air 01/20/25 12:56 Course Reevaluation(s) Reevaluation #1: Anxious. Pacing in the room. Still slightly tachycardic. Fluids are being completed. Patient was given 90 Time: 15:00 Reevaluation #2: Patient medically cleared at this time. At this time patient will be medically clear for psychiatric admission. Patient has remained hemodynamically stable through her visit here. Time: 19:06 Consultations Consultation #1: Poison control Was contacted. I discussed with Stacey, pharmacist. Recommended was giving the patient activated charcoal. She recommended close monitoring of vital signs. Monitoring for altered mentation, hypotension, abnormal EKG. Currently patient is very tachycardic if IV fluids does not alleviate this she did recommend considering a benzo to help. Supportive care recommended at this time other than the activated charcoal with patient will agree to take it. Discussed labs ordered I did not have any other recommendations as far as evaluation patient will be closely monitored as recommended. Time: 13:25 Consultation #2: With Stacey at poison control again all labs and vital signs were discussed. No further recommendations were made. She states the patient needs to be observed for 6 to 8 hours from time of ingestion which equates to approximately 7 PM. If vitals are stable and patient is still maintaining appropriately she should be able to be cleared from the standpoint of being observed from the overdose. Time: 15:46 Vital Signs Vital signs: Vital Signs Temperature 99.3 F 01/20/25 12:56 Pulse Rate 114 H 01/20/25 12:56 Respiratory Rate 18 01/20/25 12:56 Blood Pressure 139/97 H 01/20/25 12:56 Pulse Oximetry 97 01/20/25 12:56 Oxygen Delivery Method Room Air 01/20/25 12:56 Temperature 99.3 F 01/20/25 12:56 Pulse Rate 87 01/20/25 19:10 Respiratory Rate 26 H 01/20/25 19:10 Blood Pressure 131/77 01/20/25 19:01 Pulse Oximetry 91 L 01/20/25 19:10 Oxygen Delivery Method Room Air 01/20/25 12:56 MDM - Psych MDM Narrative Medical decision making narrative: 34-year-old female presented after intentional overdose with prazosin and olanzapine, reporting suicidal ideation with plan. Poison Control was contacted and recommended administration of activated charcoal, close monitoring of vital signs, and observation for altered mentation, hypotension, and abnormal EKG changes. Patient remained hemodynamically stable with no evidence of decompensation during the observation period. No abnormal findings noted on laboratory studies or EKG. Patient is now medically cleared for psychiatric admission. Case discussed with [facility], and Dr. Davis has accepted the patient for inpatient psychiatric care at 1900 Differential Diagnosis Differential diagnosis: Likely suicidal ideation, bipolar disorder, depression and drug-induced psychotic disorder Medical Records Attestation: I reviewed the patient's medical records. Lab Data Attestation: I reviewed the patient's lab results. Labs: Lab Results 01/20/25 01/20/25 Range/Units 13:10 13:47 WBC 10.8 (4.0-11.0) 10^3/uL RBC 4.62 (4.20-5.40) 10^6/uL Hgb 14.6 (12.0-16.0) g/dL Hct 42.4 (36.0-48.0) % MCV 91.8 (81.0-99.0) fL MCH 31.6 (26.7-34.0) pg MCHC 34.4 (29.9-35.2) g/dL RDW 12.9 (11.0-15.0) % Plt Count 255 (150-450) 10^3/uL MPV 11.1 (9.5-13.5) fL Neut % (Auto) 83.1 H (43.0-75.0) % Lymph % (Auto) 10.4 L (20.5-60.0) % Carver % (Auto) 3.6 (1.7-12.0) % Eos % (Auto) 1.8 (0.9-7.0) % Baso % (Auto) 0.6 (0.2-2.0) % Neut # (Auto) 9.0 H (1.4-6.5) 10^3/uL Lymph # (Auto) 1.1 L (1.2-3.8) 10^3/uL Carver # (Auto) 0.4 (0.3-0.8) 10^3/uL Eos # (Auto) 0.2 (0.0-0.7) 10^3/uL Baso # (Auto) 0.1 (0.0-0.1) 10^3/uL Abs Immat Gran (auto) 0.05 H (0.00-0.03) 10^3/uL Imm/Tot Granulo (auto) 0.5 (0.0-0.5) % Sodium 139 (136-145) mmol/L Potassium 3.8 (3.5-5.1) mmol/L Chloride 104 (98-107) mmol/L Carbon Dioxide 23.4 (21.0-32.0) mmol/L Anion Gap 15.4 BUN 12.0 (7.0-18.0) mg/dL Creatinine 0.81 (0.55-1.02) mg/dL Est GFR ( Amer) >60 (>=60 mL/min/1.73m^2) Est GFR (Non-Af Amer) >60 (>=60 mL/min/1.73m^2) BUN/Creatinine Ratio 14.8 Glucose 117 H (74-106) mg/dL Calcium 9.1 (8.5-10.1) mg/dL Total Bilirubin 0.4 (0.2-1.0) mg/dL AST 15 (15-37) U/L ALT 43 (14-59) U/L Alkaline Phosphatase 84 (46-116) U/L Troponin I High Sens <4.0 L (4.0-51.3) pg/mL Total Protein 8.0 (6.4-8.2) g/dL Albumin 4.0 (3.4-5.0) g/dL Globulin 4.0 g/dL Albumin/Globulin Ratio 1.0 Urine Color Yellow (YELLOW) Urine Clarity Clear (CLEAR) Urine pH 6.0 (5.0-9.0) Ur Specific [place] 1.020 (1.005-1.025) Urine Protein Trace (NEG/TRACE) mg/dL Urine Glucose (UA) Negative (NEGATIVE) mg/dL Urine Ketones Negative (NEGATIVE) mg/dL Urine Occult Blood Negative (NEGATIVE) Urine Nitrite Negative (NEGATIVE) Urine Bilirubin Negative (NEGATIVE) Urine Urobilinogen 0.2 (0.2-1.0) EU/dL Ur Leukocyte Esterase Negative (NEGATIVE) Urine RBC None seen (0-2) #/HPF Urine WBC 0-2 A (NONE SEEN) #/HPF Ur Squamous Epith Cells Moderate A (NONE/RARE) #/LPF Urine Crystals None seen (None Seen) #/HPF Urine Bacteria Trace A (NONE SEEN) #/HPF Urine Casts None seen (NONE SEEN) #/LPF Urine Mucus Trace A (NONE SEEN) Ur Culture Indicated? No Urine HCG, Qual Negative (NEGATIVE) Salicylates <2.8 (<=19.9) mg/dL Urine Opiates Screen Negative (NEGATIVE) Ur Buprenorphine Scrn Negative (NEGATIVE) Ur Oxycodone Screen Negative (NEGATIVE) Urine Methadone Screen Negative (NEGATIVE) Acetaminophen <2.0 L (10.0-30.0) ug/mL Ur Barbiturates Screen Negative (NEGATIVE) U Tricyclic Antidepress Negative (NEGATIVE) Ur Phencyclidine Scrn Negative (NEGATIVE) Ur Amphetamines Screen Negative (NEGATIVE) U Methamphetamines Scrn Negative (NEGATIVE) U Benzodiazepines Scrn Negative (NEGATIVE) Urine Cocaine Screen Negative (NEGATIVE) U Cannabinoids Screen Positive A (NEGATIVE) Ethanol Quant <3 mg/dL ECG Data Attestation: ?I have reviewed the pertinent ECG results. ECG interpretation date: 01/20/25 ECG interpretation time: 13:14 Interpretation: EKG is a ventricular rate of 113, sinus tachycardia, AL interval 136, QRS of 78, QT/QTc of 310/377. No ST depression or elevation. No ectopy at this time. Discharge Plan Discharge Chief Complaint: Psychiatric Symptoms Clinical Impression: Suicide attempt by drug ingestion, Suicidal ideation, Major depression Patient Disposition: [facility] Time of Disposition Decision: 19:00 Discharge Location: [facility] Discharge location: [address] Davis Condition: Good Mode of Transportation: Mental Health Car
[2025-01-20] MEDS: CHARCOAL/SORBITOL SOLUTION 50 GM/240 ML BOTTLE PO (13:46)
[2025-01-20] MEDS: 0.9 % SODIUM CHLORIDE 1,000 ML 999 ML IV (13:47)
[2025-01-20 14:00] LABS: Glucose Urine UA NEGATIVE (NEGATIVE)
[2025-01-20 14:01] LABS: Hematocrit 42.4 % (36.0-48.0); Hemoglobin 14.6 g/dL (12.0-16.0); Immature Granulocytes Abs Auto 0.05 10^3/uL (0.00-0.03); Immature Granulocytes Pct Auto 0.5 % (0.0-0.5); Lymphocytes Absolute Auto 1.1 10^3/uL (1.2-3.8); Mean Corpuscular HGB Conc 34.4 g/dL (29.9-35.2); Mean Corpuscular Hemoglobin 31.6 pg (26.7-34.0); Mean Corpuscular Volume 91.8 fL (81.0-99.0); Platelet Count 255 10^3/uL (150-450); Red Blood Count 4.62 10^6/uL (4.20-5.40); White Blood Count 10.8 10^3/uL (4.0-11.0)
[2025-01-20 14:05] LABS: HCG Qualitative Urine* NEGATIVE (NEGATIVE)
[2025-01-20 14:08] LABS: Cast Seen? NONE SEEN #/LPF (NONE SEEN); Crystals Seen? None Seen #/HPF (None Seen); Urine Culture Indicated NO
[2025-01-20 14:18] LABS: Cannabinoid Screen Urine POSITIVE (NEGATIVE)
[2025-01-20 14:19] LABS: Methamphetamines Screen Urine NEGATIVE (NEGATIVE); Tricyclic Antidepressant Urine NEGATIVE (NEGATIVE)
[2025-01-20 14:22] LABS: Alanine Aminotransferase 43 U/L (14-59); Albumin Globulin Ratio 1.0; Albumin Level 4.0 g/dL (3.4-5.0); Alkaline Phosphatase 84 U/L (46-116); Anion Gap 15.4; Aspartate Amino Transferase 15 U/L (15-37); Blood Urea Nitrogen 12.0 mg/dL (7.0-18.0); Calcium 9.1 mg/dL (8.5-10.1); Carbon Dioxide 23.4 mmol/L (21.0-32.0); Chloride 104 mmol/L (98-107); Estimated GFR (African America >60 (>=60 mL/min/1.73m^2); Estimated GFR (Non-African Ame >60 (>=60 mL/min/1.73m^2); Globulin 4.0 g/dL; Glucose 117 mg/dL (74-106); Potassium 3.8 mmol/L (3.5-5.1); Salicylate <2.8 mg/dL (<=19.9); Sodium 139 mmol/L (136-145); Total Protein 8.0 g/dL (6.4-8.2)
[2025-01-20 14:23] LABS: Acetaminophen <2.0 ug/mL (10.0-30.0)
--- NOTE | 2025-01-20 14:30 | ECG_ITS ---
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
[2025-01-20] MEDS: DIAZEPAM 10 MG/2 ML SYRINGE 5 MG IV (15:36)
--- NOTE | 2025-01-20 18:54 | PC.NURSE ---
Patient report given to Judit at [address] at this time.
--- NOTE | 2025-01-20 19:00 | PC.NURSE ---
Patient report given to CONCHA Thapa at this time
== END 2025-01-20 20:02 ==
PROVIDERS: Physician Assistant; Emergency Provider Emergency Medicine
DX: T44.6X2A Poisoning by alpha-adrenoreceptor antagonists, intentional self-harm, initial encounter (principal); T43.592A Poisoning by other antipsychotics and neuroleptics, intentional self-harm, initial encounter; R00.0 Tachycardia, unspecified; F41.9 Anxiety disorder, unspecified; F31.9 Bipolar disorder, unspecified; Z91.51 Personal history of suicidal behavior; F17.290 Nicotine dependence, other tobacco product, uncomplicated
CPT/HCPCS: 36415; 80053; 80179; 80307; 80320; 80329; 81001; 84484; 84703; 85025; 93005; 96374; 96375; 99285; J2405; J3360

== ENCOUNTER 2025-04-28 08:52 | Emergency (ER) | payer OTHER, SELFPAY ==
[2025-04-28 08:56] VITALS: BP 134/115; PULSE 98; TEMP 36.8; O2SAT 94; BMI 34.8
--- NOTE | 2025-04-28 09:01 | ECG_ITS ---
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 Measurements Intervals [place] Rate: 78 P: 55 MN: 122 QRS: 69 QRSD: 86 T: 55 QT: 354 QTc: 387 Interpretive Statements 1100 Sinus rhythm 1102 Sinus arrhythmia 9110 normal ECG Compared to ECG 01/20/2025 14:31:06 Sinus tachycardia no longer present Short MN interval no longer present Electronically Signed On 04-28-2025 18:11:48 EST by ADDIS DENG M.D.
--- NOTE | 2025-04-28 09:03 | XR_ITS ---
[facility] [place] [id number] Patient Name: ROSHAN GARCIA MRN: [id number] date: 1990 Sex: F Assigned Patient Location: ER Current Patient Location: ER Accession/Order Number: [id number] Exam Date: 04/28/2025 09:13 Report Date: 04/28/2025 09:52 At the request of: JOSE LUIS CROWLEY MD Procedure: XR chest 1V PORTABLE AP ERECT CHEST 0852 hours CLINICAL HISTORY: Cough and hemoptysis COMPARISON: 05/14/2024 Is continued slight elevation right hemidiaphragm. The heart is within normal limits. There is no vascular congestion. The lungs, as visualized, are clear. There is no effusion or pneumothorax. The osseous structures are intact. XR/XR chest 1V IMPRESSION: NO ACUTE FINDINGS Impression dictated by: Uam Mercer M.D. 04/28/2025 9:52 AM Dictation Location: [place] [address] Electronically authenticated by: [id number] Date: 04/28/2025 09:52
[2025-04-28 09:07] VITALS: PULSE 88
[2025-04-28 09:34] VITALS: PULSE 76; O2SAT 98
[2025-04-28] MEDS: IPRATROPIUM/ALBUTEROL SULFATE 3 ML AMPUL.NEB IH (09:34)
--- NOTE | 2025-04-28 10:15 | ED.GENADUL1 ---
HPI HPI - General Adult General Chief complaint: Upper Respiratory Infection Stated complaint: COUGHING BLOOD CONJESTION Time Seen by Provider: 04/28/25 09:02 Source: patient Mode of arrival: walk-in History of Present Illness HPI narrative: Patient 34 years old presented to the ER with the concern that she saw some blood in her sputum after coughing a few times in the last few hours, patient have a history of asthma she was evaluated by her primary care started antibiotic and steroid. Patient denies any shortness of breath The patient mentioned that it was few streaks of blood in the sputum after coughing multiple time No nausea no vomiting no other concerns she has been sick at least for a week and a half Related Data Home Medications ?Medication ?Instructions ?Recorded ?Confirmed albuterol sulfate 90 mcg/actuation 2 puff inhalation Q4H PRN 05/14/24 01/20/25 aerosol inhaler (Ventolin HFA) shortness of breath or wheezing hydroxyzine HCl 25 mg tablet 25 mg PO Q6H PRN anxiety 05/14/24 01/20/25 melatonin 5 mg tablet 10 mg PO BEDTIME 05/14/24 01/20/25 olanzapine 5 mg tablet 5 mg PO BEDTIME 05/14/24 01/20/25 lamotrigine 25 mg tablet 25 mg PO QPM 01/20/25 01/20/25 prazosin 1 mg capsule 2 mg PO QPM 01/20/25 01/20/25 trazodone 150 mg tablet 150 mg PO QPM PRN sleep 01/20/25 01/20/25 Previous Rx's ?Medication ?Instructions ?Recorded albuterol sulfate 90 mcg/actuation 2 inh inhalation Q6H PRN shortness 05/16/24 aerosol inhaler of breath or wheezing #6.7 grams azithromycin 250 mg tablet See Rx Instructions PO .COMPLEX #6 04/28/25 (Zithromax Z-Nico) tabs prednisone 20 mg tablet 40 mg (2 x 20 mg) PO DAILY 3 days 04/28/25 #6 tabs Allergies Allergy/AdvReac Type Severity Reaction Status Date / Time Penicillins Allergy Verified 05/23/23 06:45 prochlorperazine (From Allergy Verified 05/23/23 06:45 Compazine) Opioid HPI Opioid Management Most Recent Opioid Data: Last Pain Scale 0 05/16/24, 04:25 Last ORT Total Score 3 05/14/24, 14:42 Last ORT Risk Category Low Risk 05/14/24, 14:42 Ur Phencyclidine Scrn, (NEGATIVE) Negative 01/20/25, 13:10 Review of Systems ROS Status of ROS 10 or more systems reviewed and unremarkable except as noted in history and below 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) Asthma ?J45.909 - Unspecified asthma, uncomplicated (ICD-10) Family History (Updated 05/14/24 @ 14:54 by Paty Singer RN) Grandmother Family history of cancer Family history of hypertension Mother Family history of cancer Family history of COPD (chronic obstructive pulmonary disease) Family history of myocardial infarction Grandfather Family history of diabetes mellitus Social History (Updated 05/14/24 @ 14:53 by Paty Singer RN) Within the past year, how often did you have a drink containing alcohol: never Score interpretation: A score less than 3 is consistent with normal alcohol consumption. Smoking status: Current every day smoker Do you use any of these nicotine containing products: vaping products Non-prescribed substance use: cannabis (any form) Highest level of school completed/degree received: high school graduate Little interest or pleasure in doing things: not at all Feeling down, depressed, or hopeless: not at all Exam Narrative Exam Narrative: nurses notes and vital signs reviewed and patient is not hypoxic. General: Well-appearing and in no apparent distress. Skin: Warm, dry, no pallor noted. No rash. Head: Normocephalic, atraumatic. Neck: Supple, non-tender. Eye: Pupils are equal, round and EOMI. No scleral icterus. Ears, Nose, Mouth, and Throat: . Oral mucosa is moist, no posterior oropharynx erythema, uvula is mid-line Cardiovascular: Regular Rate and Rhythm without murmur, gallop or rub. Respiratory: No accessory muscle use or respiratory distress. Lungs bilateral expiratory lung wheezes in both lung ruth Back: No midline thoracic or lumbar vertebral tenderness. No CVA tenderness Musculoskeletal: normal ROM, no calf or popliteal tenderness, no lower extremity edema/swelling GI: Abdomen is soft, non-distended. Normal bowel sounds. No masses appreciated. No tenderness to palpation. No rebound, guarding, or rigidity noted. Neurological: A&O x4. No cranial nerve dysfunction observed. No truncal ataxia. Moves all extremities. Sensation intact. Psychiatric: Cooperative and interactive. Normal mood and affect. Constitutional Vital Signs, click to edit/add: Last Vital Signs Temp 98.3 F 04/28/25 08:56 Pulse 76 04/28/25 09:34 Resp 18 04/28/25 08:56 BP 134/115 H 04/28/25 08:56 Pulse Ox 98 04/28/25 09:34 O2 Del Method Room Air 04/28/25 09:34 Course Vital Signs Vital signs: Vital Signs Temperature 98.3 F 04/28/25 08:56 Pulse Rate 98 H 04/28/25 08:56 Respiratory Rate 18 04/28/25 08:56 Blood Pressure 134/115 H 04/28/25 08:56 Pulse Oximetry 94 L 04/28/25 08:56 Oxygen Delivery Method Room Air 04/28/25 08:56 Temperature 98.3 F 04/28/25 08:56 Pulse Rate 76 04/28/25 09:34 Respiratory Rate 18 04/28/25 08:56 Blood Pressure 134/115 H 04/28/25 08:56 Pulse Oximetry 98 04/28/25 09:34 Oxygen Delivery Method Room Air 04/28/25 09:34 Medical Decision Making MDM Narrative Medical decision making narrative: The patient EKG was showing sinus rhythm with a heart rate of [address] elevation or depression X-ray showed no acute pathology and the patient have some blood in sputum when coughing which mostly secondary to hemoptysis specially with the chest x-ray being normal The patient has not been improving for a week and a half and right now her doxycycline will be changed to azithromycin for better lung coverage The patient also was instructed about hydration and using a humidifier r because sometimes she have change in voice which could be secondary to laryngitis She received a breathing treatment in the ER Patient was provided with 3 days of prednisone Also instruction to come back to the ER in case of any concerning The patient to follow-up with the primary care within 2 to 3 days and to come back to the ER in case of any worsening of the current symptoms or any new symptoms or concerns Discharge Plan Discharge Chief Complaint: Upper Respiratory Infection Clinical Impression: Acute asthma exacerbation, Laryngitis, Hemoptysis Patient Disposition: Home, Self-Care Time of Disposition Decision: 10:16 Condition: Good Prescriptions / Home Meds: New prednisone 20 mg tablet 40 mg PO DAILY 3 Days Qty: 6 0RF azithromycin [Zithromax Z-Nico] 250 mg tablet See Rx Instructions .ROUTE .COMPLEX Qty: 6 0RF Rx Instructions: For 250 mg dose pack: take 500 mg today (day 1), then 250 mg for 4 days (days 2-5) No Action albuterol sulfate [Ventolin HFA] 90 mcg/actuation HFA aerosol inhaler 2 puff INHALATION Q4H PRN (Reason: shortness of breath or wheezing) hydroxyzine HCl 25 mg tablet 25 mg PO Q6H PRN (Reason: anxiety) melatonin 5 mg tablet 10 mg PO BEDTIME olanzapine 5 mg tablet 5 mg PO BEDTIME albuterol sulfate 90 mcg/actuation HFA aerosol inhaler 2 inh inhalation Q6H PRN (Reason: shortness of breath or wheezing) Qty: 6.7 0RF lamotrigine 25 mg tablet 25 mg PO QPM prazosin 1 mg capsule 2 mg PO QPM trazodone 150 mg tablet 150 mg PO QPM PRN (Reason: sleep) Print Language: Georgian Instructions: Asthma (ED), Laryngitis (ED), Coughing Up Blood (Hemoptysis) (ED) Additional Instructions: Please make sure you hydrate very well Stop taking doxycycline start taking azithromycin Also make sure that you use humidifier at the bedside and use your albuterol inhaler every 6 hours for the next 3 days Referrals: [facility] [Physician, Unknown] - 1 week Discharge Date/Time: 04/28/25 10:27
--- OUTSIDE RECORDS SUMMARY | 2025-04-28 10:30 | XMS_ITS | Encounter Summary ---
Author Organization [facility] Address [id number] [address] [place] [address] Care Team Providers Care Supervisor Pre Wave Name Role Phone Faith Ferguson APRN-ANALYSIS SPECIALIST Primary Care Provi anika Encounter Details DateTypeDepartmentCare Team (Latest Contact Info)Oqetdnkzxjq53/16/2025Travel Social History Tobacco UseTypesPacks/DayYears UsedDateSmoking Tobacco: XbfsbeNadwmwepna622333 - 2019Smokeless Tobacco: NeverAlcohol UseStandard Drinks/WeekCommentsNo0 (1 standard drink = 0.6 oz pure alcohol)PHQ-2AnswerDate RecordedTotal Score0 03/16/2025UDIT-CAnswerDate RecordedQ1: How often do you have a drink containing alcohol?Never04/27/2025verage Number of DrinksNot on file04/27/2025Frequency of Binge DrinkingNot on file04/27/2025Overall Financial Resource Strain (CARDIA) AnswerDate RecordedHow hard is it for you to pay for the very basics like food, housing, medical care, and heating?Somewhat hard03/15/2025PRAPARE - TransportationAnswerDate RecordedIn the past 12 months, has lack of transportation kept you from medical appointments or from getting medications? Yes03/15/2025In the past 12 months, has lack of transportation kept you from meetings, work, or from getting things needed for daily living?Patient declined 03/15/2025Housing InstabilityAnswerDate RecordedAre you worried or concerned that in the next two months you may not have stable housing that you own, rent or stay in as a part of a household?Patient Dttirbaq90/04/2025ChildcareAnswer Date GofxnjdyGrwcexgrlHotmgbl49/12/2019EmploymentAnswerDate RecordedEmployment Tpjocfg4710/21/2018Hunger ScreeningAnswerDate RecordedWithin the past 12 months we worried whether our food would run out before we got money to buy more.Never True04/27/2025Within the past 12 months the food we bought just didn't last and we didn't have money to get more.Never True04/27/2025Purpose - LifeAnswerDate RecordedPurpose and direction in hcnqGopmhck77/11/2021CommentsNoSex and Gender InformationValueDate RecordedSex Assigned at BirthNot on fileLegal Sex Rmuxwp9712/15/2014 12:06 PM EDTGender IdentityNot on fileSexual OrientationNot on filedocumented as of this encounter Plan of Treatment Not on file documented as of this encounter Visit Diagnoses Not on filedocumented in this encounter Additional Health Concerns AssessmentNoted TimePHQ-9 Depression Total Score: 1:30 PM ESTA Body Mass Index follow-up plan has been documented for the dohwybv2909/22/2024 4:43 PM EDTdocumented as of this encounter Care Teams Team MemberRelationshipSpecialtyStart DateEnd Date Faith Ferguson, AUTOMOTIVE GLASS TECHNICIAN-ANALYSIS SPECIALIST [address], [place] [address] PCP - GeneralFamily Medicine12/13/24documented as of this encounter
--- OUTSIDE RECORDS SUMMARY | 2025-04-28 10:30 | XMS_ITS | Clinical Summary ---
Author Organization [facility] Address [address], [address] [place] [address] Care Team Providers Care Incident Analyst Name Role Phone Rachel Armstrong APRN, CNP Primary Care Provid er Allergies Active AllergyReactionsCriticalityNoted RaneJptmzhjjSizyoqkkdmbKzgkEtp01/23/2022 ZlklkodbyptgmatzAxqlimgGhk40/08/2020 Agitation - restless Medications MedicationSigDispense QuantityRefillsLast FilledStart DateEnd DateStatus traZODone (DESYREL) 50 MG tablet Take 1 tablet by mouth nightlyActive desvenlafaxine succinate (PRISTIQ) 50 MG TB24 extended release tablet Take 1 tablet by mouth dailyActive naltrexone (DEPADE) 50 MG tablet Take 0.5 tablets by mouth dailyActive lurasidone (LATUDA) 40 MG TABS tablet Take 0.5 tablets by mouth Daily with supperActive Active Problems No known active problems Encounters DateTypeDepartmentCare QawxFgwjehjiypc63/21/2025bstract [facility] [place] [address] [place] [id number] Rachel Armstrong APRN - CNP from Last 3 Months Immunizations ImmunizationAdministration DatesNext DueCOVID-19, Inactive, MODERNA BLUE border, Primary or Immunocompromised, (age 12y+)02/21/2021,11/07/2020,11/07/2020, 10/10/2020,1DTP12/27/1993,08/09/1993,1992DTaP /, 01/15/1995Hib bwtqbar2512/27/1993,08/09/1993,1992MMR, PRIORIX, M-M-R II, (age 12m+), SC, 0.5mL08/02/1998,12/27/1993PPD Test01/11/2020,03/11/2018Polio OPV 08/02/1998,05/28/1994,12/27/1993,08/09/1993TDaP, ADACEL (age 10y-64y), BOOSTRIX (age 10y+), IM, 0.5mL09/11/2021,06/22/2020 Social History Tobacco UseTypesPacks/DayYears UsedDateSmoking Tobacco: NeverSmokeless Tobacco: NeverAlcohol UseStandard Drinks/WeekCommentsNot Currently0 (1 standard drink = 0.6 oz pure alcohol)AUDIT-CAnswerDate RecordedQ1: How often do you have a drink containing alcohol?Never08/17/2024Q2: How many drinks containing alcohol do you have on a typical day when you are drinking?Patient does not drink08/17/2024Q3: How often do you have six or more drinks on one occasion?Never08/17/2024Overall Financial Resource Strain (CARDIA)AnswerDate RecordedHow hard is it for you to pay for the very basics like food, housing, medical care, and heating?Not hard at all09/17/2022HQ-2AnswerDate RecordedPHQ-9 Total Wojvo5949/09/2023Hunger Vital SignAnswerDate RecordedWithin the past 12 months, you worried that your food would run out before you got the money to buymore.Never true09/17/2022 Within the past 12 months, the food you bought just didn't last and you didn't have money to get more.Never true09/17/2022RAPARE - TransportationAnswerDate RecordedLack of Transportation (Medical)Not on file09/17/2022In the past 12 months, has lack of transportation kept you from meetings, work, or from getting things needed for daily living?No09/17/2022Housing Stability Vital SignAnswer Date RecordedUnable to Pay for Housing in the Last YearNot on file09/17/2022 Number of Places Lived in the Last YearNot on file09/17/2022In the last 12 months, was there a time when you did not have a steady place to sleep or slept in ashelter (including now)?No09/17/2022Food InsecurityAnswerDate RecordedWithin the past 12 months, you worried that your food would run out before you got the money to buymore.Within the past 12 months, the food you bought just didn't last and you didn't have money to get more.Interpersonal Safety Domain Source: IP Abuse ScreeningAnswerDate RecordedPhysical abuseDenies 06/15/2024Verbal gpbgpKkibnx14/04/2025Emotional rpnnxNqwljt78/04/2025Financial ptsmpYhfpys46/04/2025Sexual oimzyEagbil90/04/2025CommentsNoSex and Gender InformationValueDate RecordedSex Assigned at BirthNot on fileLegal Sex Bmtxhf9706/21/2012 10:50 AM ESTGender IdentityNot on fileSexual OrientationNot on file Last Filed Vital Signs Vital SignReadingTime TakenCommentsBlood Umwtqkcr538/8109/09/2024 3:17 PM EDT Pzcis095509/09/2024 12:25 PM RJQRfkkhxgecit40.8 ??C (98.3 ??F)09/09/2024 12:19 PM EDTRespiratory Otbg148009/09/2024 12:19 PM EDTOxygen Nojehcbekk21%09/09/2024 3:17 PM EDTInhaled Oxygen Concentration--Dwcykx15 kg (150 lb)09/09/2024 12:19 PM EDT Cofeel839.5 cm (5' 2 )09/17/2022 2:13 PM EDTBody Mass Index27.44009/17/2022 2:13 PM EDT Plan of Treatment Health MaintenanceDue DateLast DoneCommentsDepression Rkonrl6409/27/2004HIV screen 09/28/2007Hepatitis C jkpssg3209/27/2010Hepatitis B vaccine (1 of 3 - 19+ 3-dose series)09/28/2011Pap smear2013Cervical cancer raigln1609/27/2022HPV (without or with Pap)2022Flu vaccine (#1)5COVID-19 Vaccine ( season)/, 11/07/2020, 11/07/2020, Additional history exists DTaP/Tdap/Td vaccine (8 - Td or Tdap)/07/2021, 06/22/2020, 08/02/1998, Additional history existsHib sjhdlbsQiymgspau19/18/1994, 08/09/1993, 1992Polio pjuucklAmfrwxrbr32/24/1999, 05/28/1994, 12/27/1993, Additional history existsHPV vaccine (No Doses Required)CompletedHepatitis A vaccineAged OutNo longer eligible based on patient's age to complete this topicMeningococcal (ACWY) vaccineAged OutNo longer eligible based on patient's age to complete this topicMeningococcal B vaccineAged OutNo longer eligible based on patient's age to complete this topicPneumococcal 0-49 years VaccineAged OutNo longer eligible based on patient's age to complete this topicVaricella vaccineDiscontinued Insurance [address] [place] [address] Care Teams Team MemberRelationshipSpecialtyStart DateEnd Date Rachel Armstrong APRN - PETROGRAPHER [address] [place] [address] PCP - GeneralCertified Nurse Practitioner09/17/22
--- OUTSIDE RECORDS SUMMARY | 2025-04-28 10:32 | XMS_ITS | Clinical Summary ---
Author Organization [facility] Address [address] [place] [address] Phone Care Team Providers Care Insulation Packer Name Role Phone Unavailable Primary Care Provider Unavailabl e Social History Tobacco UseTypesPacks/DayYears UsedDateSmoking Tobacco: Never Assessed CommentsUnknownSex and Gender InformationValueDate RecordedSex Assigned at Not on fileLegal RrhDffkfw48/26/2022 7:26 PM ESTGender IdentityNot on fileSexual OrientationNot on file Plan of Treatment Health MaintenanceDue DateLast DoneCommentsHIV Peezshbyt76/19/1993Lipid Panel 1992Yearly Adult Ldfgcdeu13/19/1993MMR Vaccines (1 of 1 - Standard series) 1993Hepatitis C Nkzgpfequ52/19/2011Hepatitis B Vaccines (1 of 3 - 19+ 3- dose series)09/28/2011Cervical Cancer Wbusqwyzk62/19/2014HPV/Eaibgu6509/27/2013Pap Smear2013DTaP/Tdap/Td Vaccines (1 - Tdap)2014HPV Vaccines (1 - 3- dose standard series)09/28/2019Influenza Vaccine (#1)5COVID-19 Vaccine (1 - 2024- season)2025Zoster Vaccines (1 of 2)2042HIB VaccinesAged OutNo longer eligible based on patient's age to complete this topicHepatitis A VaccinesAged OutNo longer eligible based on patient's age to complete this topic IPV VaccinesAged OutNo longer eligible based on patient's age to complete this topicMeningococcal VaccineAged OutNo longer eligible based on patient's age to complete this topicPneumococcal Vaccine: Pediatrics and At-Risk Adult Patients Aged OutNo longer eligible based on patient's age to complete this topic Rotavirus VaccinesAged OutNo longer eligible based on patient's age to complete this topic
--- OUTSIDE RECORDS SUMMARY | 2025-04-28 10:32 | XMS_ITS | Clinical Summary ---
Author Organization [place] tem Address [facility] [id number] [address] [place] [address] Care Team Providers Care Firer Glost Kiln Name Role Phone Faith Ferguson APRN-SWING TENDER Primary Care Provi anika Allergies Active AllergyReactionsCriticalityNoted DateCommentsProchlorperazineAnxietyLow 3DoxycyclineAbdominal Pain,Dizziness,Nausea,Nausea And Vomiting 04/27/20253268IyjzxeoansyOdaka12/06/2023 Medications * This document contains information received from the source organization and may not represent a complete record from that organization. MedicationSigDispense QuantityRefillsLast FilledStart DateEnd DateStatus desvenlafaxine (PRISTIQ) 100 mg 24 hr tablet Take 1 tablet (100 mg total) by mouth.5Active busPIRone (BUSPAR) 10 mg tablet Take 1 tablet (10 mg total) by mouth in the morning.5Active albuterol (PROVENTIL,VENTOLIN) 2.5 mg /3 mL (0.083 %) nebulizer solution Indications:Moderate asthma without complication, unspecified whether persistent ,Hx of major depression,Hx of anorexia nervosa,Anxiety,Pott's diseaseInhale 3 mL (2.5 mg total) by nebulization every 6 (six) hours as needed for wheezing. 75 mL 5Active fluticasone propion-salmeteroL (ADVAIR HFA) 45-21 mcg/actuation inhaler Indications:Moderate asthma without complication, unspecified whether persistent ,Hx of major depression,Hx of anorexia nervosa,Anxiety,Pott's diseaseInhale 2 puffs in the morning and 2 puffs before bedtime. 12 g 11085Active albuterol (PROVENTIL HFA;VENTOLIN HFA) 90 mcg/actuation inhaler Indications:Moderate asthma without complication, unspecified whether persistent ,Hx of major depression,Hx of anorexia nervosa,Anxiety,Pott's diseaseInhale 2 puffs every 6 (six) hours as needed for wheezing. 18 g 4085Active lamoTRIgine (LaMICtal) 25 mg tablet Take 1 tablet (25 mg total) by mouth in the morning.01/03/2025tive melatonin 10 mg tablet Take 1 tablet by mouth nightly.5Active prazosin (MINIPRESS) 2 mg capsule Take 1 capsule (2 mg total) by mouth nightly.12/01/2024tive traZODone (DESYREL) 150 mg tablet Take 150 mg by mouth nightly as needed for sleep.12/28/2024tive OLANZapine (ZyPREXA) 5 mg tablet Take 1 tablet (5 mg total) by mouth every 6 (six) hours as needed.01/04/2025 Active mupirocin (BACTROBAN) 2 % ointment Indications:Open wound of left lower leg, initial encounterApply 1 Application topically in the morning. 22 g 5Active Additional Information Patient not taking.Reported on 04/27/2025 venlafaxine XR (EFFEXOR-XR) 150 mg 24 hr capsule Take 1 capsule (150 mg total) by mouth in the morning. Total daily dose of 225 mg.04/25/2025tive venlafaxine XR (EFFEXOR XR) 75 mg 24 hr capsule Take 1 capsule (75 mg total) by mouth in the morning. Total daily dose of 225 mg.5Active Active Problems ProblemNoted DateDiagnosed DateHx of major bttbnvurpk54/04/9815Ipdrysb44/04/2025 Moderate asthma without bkzdkccwaobb50/04/2025Pott's ktxjdlb2012/13/2024bnormal bjvpggs0812/13/2024 Resolved Problems ProblemNoted DateDiagnosed DateResolved DateOpen wound of left lower leg Hx of anorexia zkimunz95Lipoma of left lower fdeotgpjt81PTSD (post-traumatic stress disorder) orderline personality jzdhmldq39Suicidal kjvuzrto98ipolar 1 disorder, yepsumeaz20 Intentional drug reeafabl50 Encounters DateTypeDepartmentCare DllzEbrbpbfjxuj55/17/2025 2:30 PM ESTOffice Visit [facility] [address] [place] [address] Alma Delia Owens, MATERIALS TECHNICIAN-CNM Encounter for counseling regarding contraception (Primary Dx)04/26/2025Travel 03/16/2025 1:40 PM ESTOffice Visit [facility] [address] [place] [address] [place] [address] Faith Ferguson, MATERIALS TECHNICIAN-SWING TENDER Moderate asthma without complication, unspecified whether persistent (Primary Dx); Open wound of left lower leg, initial yhvvzlnjk56/04/8459Tavtva57/30/2025 2:15 PM EDTOffice Visit [facility] General [facility] [address] [place] [address] Latrice Buck MATERIALS TECHNICIAN-SWING TENDER Inclusion cyst (Primary Dx)02/07/2025Travelfrom Last 3 Months Family History Medical HistoryRelationNameCommentsNo Known ProblemsFatherBreast cancerMaternal AuntBreast cancerMaternal great-grandmotherAsthmaMotherColon cancerNeg HxOvarian cancerNeg HxPancreatic cancerNeg HxProstate cancerNeg HxUterine cancerNeg Hx RelationNameStatusCommentsFatherAliveMaternal AuntDeceasedMaternal great-grandmotherDeceasedMotherAlive Social History Tobacco UseTypesPacks/DayYears UsedDateSmoking Tobacco: [id number] - 2019Smokeless Tobacco: Never Tobacco Cessation:Counseling Given: Not Answered Alcohol UseStandard Drinks/WeekCommentsNo0 (1 standard drink = 0.6 oz pure alcohol)PHQ-2AnswerDate RecordedTotal Yxqry72105/16/2024UDIT-CAnswerDate Recorded Q1: How often do you have a drink containing alcohol?Never04/27/2025verage Number of DrinksNot on file04/27/2025Frequency of Binge DrinkingNot on file 04/27/2025Overall Financial Resource Strain (CARDIA)AnswerDate RecordedHow hard is it for you to pay for the very basics like food, housing, medical care, and heating?Somewhat hard03/15/2025PRAPARE - TransportationAnswerDate RecordedIn the past 12 months, has lack of transportation kept you from medical appointments or from getting medications?Yes03/15/2025In the past 12 months, has lack of transportation kept you from meetings, work, or from getting things needed for daily living?Patient ptkyouqd04/04/2025Housing InstabilityAnswerDate RecordedAre you worried or concerned that in the next two months you may not have stable housing that you own, rent or stay in as a part of a household?Patient Declined 03/15/2025hildcareAnswerDate LssimiqpPdjyvikpbKzaiikp71/12/2019EmploymentAnswer Date JevhzmmvTripdsomwaUfiokbi32/12/2019Hunger ScreeningAnswerDate Recorded Within the past 12 months we worried whether our food would run out before we got money to buy more.Never True04/27/2025Within the past 12 months the food we bought just didn't last and we didn't have money to get more.Never True 04/27/2025Purpose - LifeAnswerDate RecordedPurpose and direction in lifeUnknown 1CommentsNoSex and Gender InformationValueDate RecordedSex Assigned at BirthNot on fileLegal UfhSfeunn93/06/2015 12:06 PM EDTGender IdentityNot on fileSexual OrientationNot on file Last Filed Vital Signs Vital SignReadingTime TakenCommentsBlood Barczjvk406/8204/27/2025 2:45 PM EST Ponop039103/16/2025 1:30 PM CWFCsikkrgmnim73.7 ??C (98 ??F)03/16/2025 1:30 PM EST Respiratory Psxr0236/06/2024 10:10 AM EDTOxygen Sfwydaofud30%03/16/2025 1:30 PM ESTInhaled Oxygen Concentration--Yjfxdw11.8 kg (195 lb 12.8 oz)04/27/2025 2:45 PM ZHKTubnss551.5 cm (5' 2.01 )04/27/2025 2:45 PM ESTBody Mass Index35.8 04/27/2025 2:45 PM EST Plan of Treatment Health MaintenanceDue DateLast DoneCommentsInfluenza Qkhrusl2401/10/2025dult BMI Follow Up Plan/Depression Snqfacqqy47/dult BMI Rdwssvzsh03Tobacco Xhpktubty55Pap Smear /, 09/22/2024DTaP,Tdap and Td Vaccines (8 - Td or Tdap) /07/2021, 06/22/2020, 08/02/1998, Additional history exists Medical Devices Not on file Procedures Procedure NamePriorityDate/TimeAssociated DiagnosisCommentsPM AMB POCT , URINE (NUCG)Sxgfdln1804/27/2025 3:15 PM EST Encounter for counseling regarding contraception THIN PREP PAP XTDBAxgitsg95/14/2025 3:44 PM EDT Cervical smear, as part of routine gynecological examination from Last 3 Months or Most Recently Relevant to Health Maintenance Results * POCT , urine (04/27/2025 3:15 PM EST)ComponentValueRef RangeTest MethodAnalysis TimePerformed AtPathologist SignatureExternal Poct Urine PregnancyNegativeMANUALLY TRANSCRIBED RESULTSInternal Driver Guard Check Completed and PassedYesMANUALLY TRANSCRIBED RESULTSSpecimen (Source)Anatomical Location / LateralityCollection Method / VolumeCollection TimeReceived Time Urine04/27/2025 3:15 PM EST Narrative Authorizing ProviderResult TypeResult StatusAlma Delia Owens MATERIALS TECHNICIAN-CNMPOINT OF CARE TEST ORDERABLESFinal ResultPerforming OrganizationAddressCity/State/ZIP Code Phone Number MANUALLY TRANSCRIBED RESULTS * Thin Prep Pap Test (09/22/2024 3:44 PM EDT)ComponentValueRef RangeTest Method Analysis TimePerformed AtPathologist SignatureCase ReportGynecologic Cytology Report ? Case: [id number] ? Authorizing Provider: ??SUSHAM Alvarado ?? Collected: ? 09/22/2024 1544 ? Ordering Location: ? [facility] ? Received: ?09/22/2024 1544 ? Obstetrics/Gynecology ? First Screen: ?Ada Mandel CT(ASCP) ? Specimen: ?Thin Prep Pap, Cervix ? 09/23/2024 12:47 PM [facility] LABORATORYSpecimen Adequacy Satisfactory for evaluation, endocervical/transformation zone component present 09/23/2024 12:47 PM [facility] LABORATORYInterpretationNEGATIVE FOR INTRAEPITHELIAL LESION OR MALIGNANCYNEGATIVE FOR INTRAEPITHELIAL LESION OR MALIGNANCY, TMHBWUMYNIJZSC79/15/2025 12:47 PM [facility] at 1247 EDTAdditional InformationThe Pap test is a screening test with an inherent, but low, probability of error. The Pap test is primarily effective for the diagnosis and prevention of squamous cell carcinoma. Regular screening iscritical for prevention. ThinPrep liquid-based slides, which meet the Utility Sales And Service Manager criteria for automated screening, have been screened by the [email or web address] (as of 01/26/07) along with an additional manual rescreening by a detail manager and, if indicated, by a pathologist.09/23/2024 12:47 PM [facility] LABORATORYClinical Nccivypbqepblbz63/15/2025 12:47 PM [facility] LABORATORYEmbedded Tfndoa1909/23/2024 12:47 PM [facility] LABORATORYSpecimen (Source)Anatomical Location / LateralityCollection Method / VolumeCollection TimeReceived TimeThinPrep cytology technique (qualifier value) Cervix uteri structure / Cexirrz8609/22/2024 3:44 PM EDT09/22/2024 3:44 PM EDT Narrative Authorizing ProviderResult TypeResult StatusAlma Delia Owens APRN-LEXX PATHOLOGY/CYTOLOGY ORDERABLESFinal ResultPerforming OrganizationAddress City/State/ZIP CodePhone Number [facility] [address] [place] [address], from Last 3 Months or Most Recently Relevant to Health Maintenance Insurance Advance Directives * Full Code (Latest Code Status on File) Date ActivatedDate InactivatedComments06/01/2017 3:20 PM06/02/2017 3:14 PM Care Teams Team MemberRelationshipSpecialtyStart DateEnd Date Faith Ferguson, MATERIALS TECHNICIAN-SWING TENDER [address] [place] [address] PCP - GeneralFamily Medicine12/13/24
== END 2025-04-28 10:27 | disposition home or self-care (01) ==
LOC: ER 10:23
PROVIDERS: Emergency Provider Emergency Medicine; PCP Nurse Practitioner
DX: J45.901 Unspecified asthma with (acute) exacerbation (principal); J04.0 Acute laryngitis; R04.2 Hemoptysis; F17.290 Nicotine dependence, other tobacco product, uncomplicated
CPT/HCPCS: 71045; 93005; 94640; 99284